=== PATIENT | female | born 1965 | race Caucasian/White ===

== ENCOUNTER 2022-01-11 10:35 | Outpatient (CLI) | payer OTHER, SELFPAY ==
--- NOTE | ~2022-01-11 | MR_ITS ---
EXAMINATION: MR abdomen wo/w con DATE: 01/11/2022 11:56 INDICATION: Gross hematuria TECHNIQUE: Magnetic resonance imaging (MRI) of the abdomen was performed without and with 14 mL Multi ulysses intravenous contrast. Sequences included coronal T2-weighted SS-FSE, coronal and axial FS 2D-F IESTA, axial STIR FSE, axial T2-weighted SS-FSE, axial T2-weighted FS SS-FSE, axial diffusion-weighte d SE, axial dual-echo T1-weighted FSPGR, and axial and coronal T1-weighted LAVA. Postcontrast axial T 1-weighted LAVA images were obtained in a time course. Postcontrast coronal T1-weighted LAVA images w ere obtained. COMPARISON: None. FINDINGS: Heart size is normal. No pericardial or pleural effusion. Cholecystectomy clips with associated magne tic field artifact at the gallbladder fossa. Liver, spleen, pancreas and right kidney are normal. 8 m m T2 hyperintense exophytic cyst at the interpolar region of the left kidney. There are at least 3 ad ditional 5 mm smaller nonenhancing likely cysts, too at the upper pole of the right kidney and one at the lower pole of the left kidney. No hydronephrosis. Postoperative changes of magnetic field artifa ct suggesting aortobiiliac stenting. There is prominent colonic diverticulosis with a sigmoid and latrell cending colon predominance. There is no adjacent inflammatory change to suggest diverticulitis. Gina l appendix. No dilated bowel to suggest obstruction. Bladder, uterus and bilateral adnexa are visuali zed on the coronal images appear unremarkable. No pathologically enlarged abdominal or pelvic lymphad enopathy. Bones are unremarkable with normal marrow signal throughout. IMPRESSION: 1. A few small bilateral nonenhancing renal cysts. No etiology identified for reported hematuria. Reviewed, dictated and finalized at location B. IMPRESSION: 1. A few small bilateral nonenhancing renal cysts. No etiology identified for r eported hematuria.
[2022-01-11 11:18] LABS: Estimated Glomerular Filt Rate 57
== END 2022-01-11 10:36 | disposition home or self-care (01) ==
PROVIDERS: PCP Family Medicine; Visit Provider Urology
DX: R31.0 Gross hematuria (principal); N28.1 Cyst of kidney, acquired
CPT/HCPCS: 74183; A9577

== ENCOUNTER 2024-03-11 08:00 | Outpatient (CLI) | payer OTHER, SELFPAY ==
--- NOTE | ~2024-03-11 | XR_ITS ---
EXAMINATION: XR abdomen/kub 1V DATE: 03/11/2024 08:26 INDICATION: Gross hematuria. TECHNIQUE: A supine view of the abdomen on 2 radiographs was obtained. COMPARISON: CT abdomen and pelvis 03/11/2024 FINDINGS: There are no dilated loops of bowel. There is a paucity of stool in the colon. There are casas rgical clips in right abdomen. There are stents in the common iliac arteries and left external iliac artery. There are phleboliths in the pelvis. IMPRESSION: 1. No visible urolithiasis. Reviewed, dictated and finalized at location A. IMPRESSION: 1. No visible urolithiasis.
--- NOTE | ~2024-03-11 | CT_ITS ---
CT of the Abdomen and Pelvis: Indication: Hematuria Technique: 2.5 mm axial scans were obtained through the abdomen and pelvis prior to and following in travenous administration of 130 cc of Omnipaque 350. Dose reduction technique was used on this scan b y utilizing automated exposure control and iterative reconstruction technique. The dose-length produc t (DLP) was 1060.21 mGy-cm. Findings: Scans through the lung bases are unremarkable. The liver, spleen, and pancreas are within normal limits. Cholecystectomy clips are present. Bilatera l adrenal glands are enlarged and low-density, compatible prior bilateral adrenal adenomas or adrenal hyperplasia. 2 mm nonobstructing right renal stone present. There is a 2.7 x 2.0 x 1.5 cm enhancing mass probably involving the left renal collecting system but with suspected focal extension into the left renal parenchyma, suspicious for neoplasm (coronal postcontrast images 55-60). There is atherosc lerotic calcification of aorta with bilateral iliac artery stents present.. No lymphadenopathy. No bowel obstruction or bowel wall thickening. There is no evidence to suggest acute appendicitis. Images through the pelvis were performed. Urinary bladder unremarkable. No pelvic mass seen. No ascit es. Impression: Findings suspicious for urothelial carcinoma versus renal cell carcinoma involving the left renal col lecting system and probably focally invading into left renal parenchyma, as detailed above. 2 mm nonobstructing right renal stone. Adrenal hyperplasia bilaterally versus adrenal adenomas. Reviewed, dictated and finalized at [facility]. Impression: Findings suspicious for urothelial carcinoma versus renal cell carcinoma involv ing the left renal collecting system and probably focally invading into left re nal parenchyma, as detailed above. 2 mm nonobstructing right renal stone. Adrenal hyperplasia bilaterally versus adrenal adenomas.
== END 2024-03-11 08:01 | disposition home or self-care (01) ==
LOC: ANHIMG 08:10
PROVIDERS: PCP Hospitalist; Visit Provider Urology
DX: N20.0 Calculus of kidney (principal); E27.8 Other specified disorders of adrenal gland; R93.89 Abnormal findings on diagnostic imaging of other specified body structures
CPT/HCPCS: 74018; 74178; Q9967

== ENCOUNTER 2024-04-18 02:05 | Day surgery (SDC) | payer OTHER, SELFPAY ==
--- NOTE | 2024-04-10 07:05 | PM.HPGS ---
History of Present Illness History of Present Illness Consent: Risks, benefits, and alternatives have been discussed and questions answered. Patient agrees to proceed with procedure. Chief complaint: gross hematuria Narrative: Mirtha Cherry is a 58 year old female who recently underwent evaluation by 1 of our nurse practitioners for hematuria. CT urogram showed a possible filling defect in her left renal collecting system. After discussion options she is agreeable to cystoscopy with left ureteroscopy, possible ureteral / renal pelvic biopsy, left retrograde. She is aware that this be a diagnostic maneuver. The risk ureteral injury, ureteral stricture, hematuria, need to place a stent and procedures. Review of Systems Review of Systems: All systems reviewed & are unremarkable except as noted in HPI and below COUNT INCLUDES THE [facility] Family History Family History (Updated 05/06/16 @ 23:19 by DOCTOR UNKNOWN) Grandparent Family history of thyroid disease Family history of obesity Cerebrovascular accident Family history of Alzheimer's disease Diabetes mellitus Mother Family history of obesity Family history of cataracts Family history of diabetes mellitus in first degree relative Father Hypertension Family history of alcoholism Family history of atrial fibrillation Social History Social History Second hand tobacco smoke exposure: Yes Smoking end date: 10/09/07 Alcohol intake: never Exam Const: General: no acute distress Resp: Effort & Inspection: normal respiratory effort GI: Inspection: non-distended GI Palp: No abdominal tenderness and No Guarding due to palpation present (GI) Auscultation: normal bowel sounds Assessment and Plan Assessment and plan (1) Gross hematuria: Code(s): R31.0 - Gross hematuria Status: Acute Assessment and Plan: Cystoscopy, left ureteroscopy with possible renal pelvic biopsy, left retrograde pyelography
[2024-04-10 13:20] VITALS: BMI 24.5
--- NOTE | 2024-04-10 13:34 | PC.NURSE ---
Report to the Outpatient Waiting Room, entrance under the green pavilion located off [facility], at time _0600_ on date _[id number]_. Planned Procedure Time: _0730_. Time changes happen often and if your time is changed the preop area will call you the afternoon before. - You and your visitor will be asked to self-screen and do not enter if you have any COVID symptoms. - A mask is optional within the hospital at this time. Patients may have clear liquids (water, carbonated beverages, clear teas, apple juice) until 3 hours prior to surgery with a maximum of 20 ounces. - No food from midnight until time of surgery Take the following medications with a SIP of water the morning of surgery: ___Metoprolol DO NOT STOP ANY OF YOUR OTHER PRESCRIPTION MEDICATIONS PRIOR TO SURGERY ?EXCEPT THE FOLLOWING Medications to discontinue per physician Patient says Danae told her to stop plavix and aspirin 7 days before surgery. __Please stop all vitamins and supplements 04-15-2024_ Date to take last dose Please no make-up, nail burkinan, hairspray, perfume, deodorant, or body powder the day of surgery. No jewelry (including any body piercings) or valuables the day of surgery, leave them at home. Please take a shower or bath the night before, or the morning of, surgery with an antibacterial soap. Wear comfortable, loose fitting clothing. - Jewelry must be removed prior to entering the operating room. Rings and piercings that are not removed may be cut off. - The hospital will not accept responsibility for valuables. - Please leave all valuables, including medications, at home the day of surgery. If you are going home after surgery, a licensed [employer] truck driver must drive you home. - NO public transportation without another adult if you receive anesthesia. - We recommend that an adult stay with you for 24 hours following discharge. - We also recommend that you do not drive, make important decision, drink alcoholic beverages, or take any drugs that were not prescribed by your health care provider for at least 24 hours after your discharge time. Follow any additional instructions given to you from your surgeon. If you or anyone in your household have experienced Covid symptoms in the past week, please notify your surgeon or the nurse liaison at the phone number below for possible testing. Telephone instructions given to __Dee___and asked if any additional questions and then verbalized understanding. Patient advised to call surgeon office or pre surgery nurse liaison [phone] if any additional questions.
--- NOTE | 2024-04-17 15:22 | WPDANESEPPF ---
Anes - Initial Pre Proc Eval Procedure: Operation Date: 04/18/24 07:30 Proposed Procedures p Cystoscopy, Left Ureteroscopy, Left Retrograde Pyelography, Possible Ureteral Biopsy - Rudy Houston MD Date/Time: 04/17/24 15:22 Surgeon: Rudy Houston MD Pre Op Diagnosis: gross hematuria Patient Data Age: 59 Gender: F Height: 1.55 m Weight: 59 kg Allergies Allergy/AdvReac Type Severity Reaction Status Date / Time adhesive tape Allergy Intermediate Blister Verified 04/10/24 13:15 Home Medications Medication Instructions Recorded Confirmed Type aspirin 81 mg tablet,delayed 81 mg PO DAILY 04/10/24 04/10/24 History release (Ecotrin Low Strength) atorvastatin 40 mg tablet 40 mg PO DAILY 04/10/24 04/10/24 History cholecalciferol (vitamin D3) 125 125 mcg PO DAILY 04/10/24 04/10/24 History mcg (5,000 unit) tablet (Vitamin D3) clopidogrel 75 mg tablet 75 mg PO DAILY 04/10/24 04/10/24 History coenzyme Q10 100 mg capsule 400 mg PO DAILY 04/10/24 04/10/24 History (CoQ-10) metoprolol succinate 50 mg 50 mg PO DAILY 04/10/24 04/10/24 History tablet,extended release 24 hr kyjubdzo-lsd-vldyx acid 0.4 1 tablet PO DAILY 04/10/24 04/10/24 History mg-lycopene 300 mcg-lutein 250 mcg tablet (Centrum Silver) Patient hx anesthesia problems: post op nausea/vomiting Family hx anesthesia problems: none Results Review: All pre-operative results and documents have been reviewed as part of the pre-operative evaluation. [facility] Past Medical History Medical History (Updated 04/17/24 @ 15:23 by Loyd Ferrell DO) History of breast cancer PVD (peripheral vascular disease) Tachy-chris syndrome Surgical History Surgical History (Updated 04/17/24 @ 15:23 by Loyd Ferrell DO) History of bilateral mastectomy Family History Family History (Updated 05/06/16 @ 23:19 by DOCTOR UNKNOWN) Grandparent Family history of thyroid disease Family history of obesity Cerebrovascular accident Family history of Alzheimer's disease Diabetes mellitus Mother Family history of obesity Family history of cataracts Family history of diabetes mellitus in first degree relative Father Hypertension Family history of alcoholism Family history of atrial fibrillation Social History Social History Smoking packs per day: 1 Smoking cigarettes per day: 20.0 Years smoked: 40 Smoking pack-years: 40.00 Smoking status: Current every day smoker Tobacco type: cigarettes Second hand tobacco smoke exposure: Yes Smoking end date: 10/09/07 Alcohol intake: never Living arrangements: with family Spiritual care concerns: No Anes - Eval Final PreProcedure Day of Procedure 04/17/24 15:22 Patient weight: normal Heart: regular rate and rhythm Lungs: clear to auscultation Airway: Mallampati scale class III Neurological: alert and oriented Last oral intake: >/= 8 hours ASA classification: III Emergent: no Anesthetic plan: proceed Anesthesia type and monitoring: general and standard monitoring Results Review: All pre-operative results and documents have been reviewed as part of the pre-operative evaluation. Informed Consent: The patient's anesthetic plan and its attendant risks and benefits were discussed with the patient/family/POA. Questions were solicited and answers provided to the satisfaction of the patient/family/POA.
[2024-04-18] VITALS (9 sets, daily range): BP systolic 120–154; BP diastolic 63–72; PULSE 53–63; RESP 14–18; TEMP 36.1–36.4; O2SAT 95–100
--- NOTE | ~2024-04-18 | XR_ITS ---
EXAMINATION: XR retrograde pyelo w/stent LT DATE: 04/18/2024 08:04 INDICATION: Left internal ureteral stent placement TECHNIQUE: Fluoroscopic images from a left internal ureteral stent placement are submitted for review . 55 seconds of fluoroscopy time. FINDINGS: There is a left double-J internal ureteral stent projecting in expected position, with proximal [place] loop at the level of the renal pelvis. The distal loop is not visualized.. IMPRESSION: 1. Left internal ureteral stent placement. Please refer to real-time procedural findings for detail s. Reviewed, dictated and finalized at location B. IMPRESSION: 1. Left internal ureteral stent placement. Please refer to real-time procedur al findings for details.
--- NOTE | 2024-04-18 06:30 | WPDHPUPDATE1 ---
History and Physical Update Update Date/Time: 04/18/24 06:30 History and Physical has been reviewed, including an updated exam of the patient. There are NO changes in the patient's condition. Risks, benefits, and alternatives have been discussed and questions answered. Patient agrees to proceed with procedure.
[2024-04-18] MEDS: LACTATED RINGERS 1,000 ML 30 ML IV CONT (07:00)
[2024-04-18] MEDS: SCOPOLAMINE 1 MG PATCH 1 PATCH TRANSDERM (07:00)
[2024-04-18] MEDS: ceFAZolin 2 GM/D5W 50 ML 2 GM/50 ML BAG IVPB (07:22)
--- NOTE | 2024-04-18 08:09 | W.PM.PROC2 ---
Procedure Note - Detailed Date of Procedure 04/18/24 Pre-op Diagnosis Gross hematuria Post-op Diagnosis Same (Probable urothelial ca. left renal collecting system) Procedure Performed Cystoscopy, left renal pelvic wash, left ureteroscopy with biopsy, left retrograde pyelogram Surgeon Rudy Houston MD Anesthesia General Description of Procedure patient is brought to the operative suite where she is prepped draped in routine sterile fashion while in dorsal lithotomy position after the uneventful induction of a general anesthetic. Cystoscopy was undertaken with a 21 F rigid cystoscope. With placement the cystoscope urine from the bladder was collected for cytology. Bladder neck and urethra endoscopically normal. Bladder was circumferentially inspected and found to be without mucosal hyperemia or neoplastic changes. There was no intravesical foreign body. She has a single orthotopic ureteral orifice bilaterally. A 0.035 in glidewire was advanced in left renal pelvis. The distal ureter was dilated with an 8 F 10 F dilator. Using a ureteral catheter I obtained washings from the left renal pelvis. Ureteroscopy was undertaken with a 7.5 F digital ureteral scope with the following findings: a. 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 Left ureter: No apparent neoplasm c. Bladder: normal Above biopsies were obtained with a Piranha biopsy forceps. I opted not to place ureteral stent. Scopes and wires removed she was taken recovery room good condition Drains No Packing No Pathology None sent
[2024-04-18] MEDS: fentaNYL CITRATE INJ (*CRX) 100 MCG/2 ML VIAL 25 MCG IV PUSH ×4 (09:02→09:13)
[2024-04-18] MEDS: KETOROLAC 30 MG/ML VIAL (*BKC) IV PUSH (09:25)
[2024-04-18] MEDS: HYOSCYAMINE SULFATE 0.125 MG TABLET PO (09:37)
[2024-04-18] MEDS: oxyCODONE HCL (*CRX) 5 MG TAB IR PO (09:54)
[2024-04-18] MEDS: ONDANSETRON INJ 4 MG/2 ML VIAL IV PUSH (10:26)
== END 2024-04-18 10:34 | disposition home or self-care (01) ==
PROVIDERS: PCP Hospitalist; Visit Provider Urology
PROC: (CPT 52352; principal; 2024-04-18 07:30)
DX: C65.2 Malignant neoplasm of left renal pelvis (principal); I73.9 Peripheral vascular disease, unspecified; I49.5 Sick sinus syndrome; Z85.3 Personal history of malignant neoplasm of breast; Z79.02 Long term (current) use of antithrombotics/antiplatelets; Z79.82 Long term (current) use of aspirin; F17.210 Nicotine dependence, cigarettes, uncomplicated
CPT/HCPCS: 52354; 74420; 88108; 88305; A9270; C1758; C1769; J0690; J1100; J1885; J2250; J2405; J3010; J7120; Q9966

== ENCOUNTER 2024-10-06 08:17 | Emergency (ER) | payer OTHER, SELFPAY ==
--- NOTE | ~2024-10-06 | US_ITS ---
EXAMINATION: US venous doppler [facility] DATE: 10/06/2024 08:51 INDICATION: Left lower limb pain and swelling TECHNIQUE: Grayscale ultrasound images without and with compression and Doppler ultrasound images of the left lower extremity veins were obtained. COMPARISON: None. FINDINGS: The visualized portions of left common femoral vein, profunda (deep) femoral vein, femoral vein, popl iteal vein, peroneal veins, posterior tibial veins, gastrocnemius vein and greater saphenous vein out flow are patent. IMPRESSION: 1. No deep venous thrombosis in the left lower limb. Reviewed, dictated and finalized at location A. 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
[2024-10-06 08:26] VITALS: BP 108/64; PULSE 84; RESP 16; TEMP 36.4; O2SAT 99
--- NOTE | 2024-10-06 09:16 | ED.GENADULT ---
HPI - General Adult General Chief complaint: Recheck/Abnormal Lab/Rx Stated complaint: elevated d-dimer at [facility], sent here for ultrasound Time Seen by Provider: 10/06/24 08:39 History of Present Illness HPI narrative: this is a 5-year-old female sent to the ED to get a ultrasound. She had a positive D-dimer at an outside facility. Patient received a D-dimer because she had been having tingling sensations in her left leg. She is currently undergoing chemotherapy. She has no history of DVT or blood clots. She has no swelling no chest pain difficulty breathing. Related Data Home Medications ?Medication ?Instructions ?Recorded ?Confirmed ?Last Taken ?Type aspirin 81 mg tablet,delayed 81 mg PO DAILY 04/10/24 04/18/24 04/11/24 History release (Ecotrin Low Strength) atorvastatin 40 mg tablet 40 mg PO DAILY 04/10/24 04/10/24 Unknown History cholecalciferol (vitamin D3) 125 125 mcg PO DAILY 04/10/24 04/10/24 Unknown History mcg (5,000 unit) tablet (Vitamin D3) clopidogrel 75 mg tablet 75 mg PO DAILY 04/10/24 04/18/24 04/11/24 History coenzyme Q10 100 mg capsule 400 mg PO DAILY 04/10/24 04/10/24 Unknown History (CoQ-10) metoprolol succinate 50 mg 50 mg PO DAILY 04/10/24 04/10/24 Unknown History tablet,extended release 24 hr ecovrznq-hqy-ggcny acid 0.4 1 tablet PO DAILY 04/10/24 04/18/24 04/14/24 History mg-lycopene 300 mcg-lutein 250 mcg tablet (Centrum Silver) Allergies Allergy/AdvReac Type Severity Reaction Status Date / Time adhesive tape Allergy Intermediate Blister Verified 04/18/24 07:05 [facility] Past Medical History Medical History History of breast cancer PVD (peripheral vascular disease) Tachy-chris syndrome Surgical History Surgical History History of bilateral mastectomy Family History Family History Grandparent Family history of thyroid disease Family history of obesity Cerebrovascular accident Family history of Alzheimer's disease Diabetes mellitus Mother Family history of obesity Family history of cataracts Family history of diabetes mellitus in first degree relative Father Hypertension Family history of alcoholism Family history of atrial fibrillation Social History Social History Smoking packs per day: 1 Smoking cigarettes per day: 20.0 Years smoked: 40 Smoking pack-years: 40.00 Smoking status: Current every day smoker Tobacco type: cigarettes Second hand tobacco smoke exposure: Yes Smoking end date: 10/09/07 Alcohol intake: never Living arrangements: with family Spiritual care concerns: No Exam Narrative: APPEARANCE: No apparent distress. Head: atraumatic. EYES: EOMI, NOSE: Atraumatic NECK: Trachea midline RESPIRATORY: No increased rate of breathing CARDIOVASCULAR: RRR, ABDOMINAL: Non-distended MUSCULOSKELETAl: Focal exam of the left lower extremity revealed no swelling, compartments are soft, no overlying skin changes. Pulses intact, sensation intact NEURO: Alert. Moving 4/4 extremities SKIN:: Warm, dry. Normal color PSYCHIATRIC: Normal affect Course Vital Signs Vital signs: Vital Signs Temperature 97.6 F 10/06/24 08:26 Pulse Rate 84 10/06/24 08:26 Respiratory Rate 16 10/06/24 08:26 Blood Pressure 108/64 10/06/24 08:26 Pulse Oximetry 99 10/06/24 08:26 Temperature 97.6 F 10/06/24 08:26 Pulse Rate 84 10/06/24 08:26 Respiratory Rate 16 10/06/24 08:26 Blood Pressure 108/64 10/06/24 08:26 Pulse Oximetry 99 10/06/24 08:26 Medical Decision Making MDM Narrative Medical decision making narrative: -Course: 59-year-old female presenting ED for a rule out DVT. DVT scan is negative. Her physical exam is unremarkable. She is on chemotherapy which frequently causes peripheral neuropathy which may be the cause of her symptoms. Patient be discharged follow-up with Oncology. Given return precautions. Vital Signs Vital Signs: Vital Signs Temperature 97.6 F 10/06/24 08:26 Pulse Rate 84 10/06/24 08:26 Respiratory Rate 16 10/06/24 08:26 Blood Pressure 108/64 10/06/24 08:26 Pulse Oximetry 99 10/06/24 08:26 Temperature 97.6 F 10/06/24 08:26 Pulse Rate 84 10/06/24 08:26 Respiratory Rate 16 10/06/24 08:26 Blood Pressure 108/64 10/06/24 08:26 Pulse Oximetry 99 10/06/24 08:26 Discharge Plan Discharge Clinical Impression: Leg pain Patient Disposition: Still a Patient Condition: Stable Additional Instructions: your ultrasound was negative for DVT. Please follow-up with your oncologist for further management. Patient Language: Faroese Prescriptions: No Action atorvastatin 40 mg tablet 40 mg PO DAILY metoprolol succinate 50 mg tablet extended release 24 hr 50 mg PO DAILY clopidogrel 75 mg tablet 75 mg PO DAILY aspirin [Ecotrin Low Strength] 81 mg Tablet,Delayed Release (Dr/Ec) 81 mg PO DAILY coenzyme Q10 [CoQ-10] 100 mg Capsule 400 mg PO DAILY Centrum Silver 0.4 mg-300 mcg- 250 mcg Tablet 1 tablet PO DAILY cholecalciferol (vitamin D3) [Vitamin D3] 125 mcg (5,000 unit) Tablet 125 mcg PO DAILY hydrocodone-acetaminophen 5-325 mg tablet 1 - 2 tablet PO Q6H PRN (Reason: pain) Qty: 20 0RF Follow-up/Referrals: Leidy,MD Karson [Primary Care Provider] -
[2024-10-06 10:05] VITALS: BP 126/88; PULSE 74; RESP 16; O2SAT 99
--- OUTSIDE RECORDS SUMMARY | 2024-10-13 03:57 | XMS_ITS | Clinical Summary ---
Author Organization [facility] Address [address] [facility], [place] [address] Phone Care Team Providers Care Carriage Setter Name Role Phone Levi Carpenter Mirlande DPM Unavailable [phone] Karson Forbes MD Primary Care Provider [phone] Los Perry MD Unavailable Allergies Active Allergy Reactions Criticality Noted Date Comments Adhesive Tape Itching,Unknown,Othe r (see Comments) 06/07/2016 blisters Povidone Iodine Itching 02/17/2017 Codeine Nausea,Unknown 06/07/2016 Fosaprepitant Dimeglumine Anaphylaxis 4 Iodine Itching High 05/10/2018 Nitrofurantoin Hives 08/18/2024 Medications SUMAtriptan (IMITREX) 50 MG Tablet Take 1 Tab by mouth as needed. 11 6 Active clopidogrel (PLAVIX) 75 MG Tablet Take 75 mg by mouth daily. Instructed to hold for 5 days prior to surgery on 07/02/2024 Active atorvastatin (LIPITOR) 80 MG Tablet Take 40 mg by mouth daily. Active Multiple Vitamin (MULTIVITAMIN PO) Take by mouth. Instructed to hold for 3 days prior to surgery on 07/02/2024 Active metoprolol tartrate (LOPRESSOR) 50 MG Tablet Take 50 mg by mouth every morning. Active Coenzyme Q10 400 MG Capsule Take by mouth daily. Active Probiotic Product (PROBIOTIC DAILY PO) Take by mouth. Activ e sulfamethoxazol e-trimethoprim DS (Bactrim DS) 800-160 MG TabletIndicatio ns:Acute Cystitis Take 1 Tablet by mouth 2 times daily. Indications: Acute Cystitis 4 09/24/20 phenazopyridine (PYRIDIUM) 200 MG Tablet Take 1 Tablet by mouth 3 times daily for 3 days. 9 Tablet 4 10/01/20 sulfamethoxazol e-trimethoprim DS (BACTRIM DS, SEPTRA DS) 800-160 MG Tablet Take 1 Tablet by mouth 2 times daily for 7 days. 14 Tablet 4 10/05/20 Active Problems Problem Noted Date Diagnosed Date Chemotherapy-induced thrombocytopenia 09/11/2024 Anemia associated with chemotherapy 08/28/2024 Urinary tract infection without hematuria 2023 Cognitive impairment 07/09/2024 Urothelial cancer 06/18/2024 Stage 3 chronic kidney disease 06/18/2024 Conductive hearing loss, bilateral 06/18/2024 Pain of left foot 07/10/2017 Left leg swelling 06/02/2017 Neuritis of left foot 06/02/2017 Swelling of foot joint, left 06/02/2017 GERD (gastroesophageal reflux disease) 7 Dyslipidemia 11/25/2016 PVD (peripheral vascular disease) 11/25/2016 Closed displaced fracture of proximal phalanx of lesser toe of right foot 06/07/2016 Other specified peripheral vascular diseases Hallux valgus (acquired), right foot 06/07/2016 Hallux valgus (acquired), left foot 06/07/2016 Tailor's bunion of left foot 06/07/2016 Resolved Problems Problem Noted Date Diagnosed Date Resolved Date Tailor's bunion of right foot 06/07/2016 02/17/2017 Encounters Date Type Department Care Team Description 10/08/2024 10:40 AM [employer] Clinical Support [facility] Oncology Services [address] [place] [address] Cruzito Orr MD Urothelial cancer (HCC) (Primary Dx) Discharge Disposition: Discharged to home or Selfcare 10/08/2024 7:41 AM [employer] - 10/08/2024 11:59 PM [employer]AL [facility] [address] [place] [address] Cruzito Orr MD Discharge Disposition: Discharged to home or Selfcare 10/08/2024 Travel 10/03/2024 10:00 AM [employer]ESSIONAL Clinical Support [facility] Oncology Services [address] [place] [phone] Cruzito Orr MD Anemia associated with chemotherapy (Primary Dx) Discharge Disposition: Discharged to home or Selfcare 10/03/2024 Travel 10/01/2024 10:00 AM [employer]AL Clinical Support [facility] Oncology Services [address] [place] [phone] Cruzito Orr MD Urothelial cancer (HCC) Discharge Disposition: Discharged to home or Selfcare 10/01/2024 Telephone [facility] Oncology Services [address] [place] [phone] Cruzito Orr MD 10/01/2024 Travel 10/01/2024 Results Follow-Up [facility] [address] [place] [address] Carloz Gilman PAC 09/28/2024 6:10 PM [employer]ESSIONAL Urgent Care Visit [facility] [address] [place] [phone] Aimee Hand APRN, GLUE MIXER Acute cystitis with hematuria (Primary Dx); Dysuria Discharge Disposition: Discharged to home or Selfcare 09/28/2024 Travel 09/26/2024 1:00 PM [employer] Clinical Support [facility] Oncology Services [address] [place] [phone] Cruzito Orr MD Anemia associated with chemotherapy (Primary Dx) Discharge Disposition: Discharged to home or Selfcare 09/26/2024 Travel 09/25/2024 1:00 PM [employer] Clinical Support [facility] Oncology Services [address] [place] [phone] Cruzito Orr MD Urothelial cancer (HCC) Discharge Disposition: Discharged to home or Selfcare 09/25/2024 Travel 09/23/2024 10:30 AM [employer]ESSIONAL Clinical Support [facility] Oncology Services [address] [place] [phone] Cruzito Orr MD Anemia associated with chemotherapy (Primary Dx); Urothelial cancer (HCC) Discharge Disposition: Discharged to home or Selfcare 09/23/2024 Travel 09/18/2024 1:30 PM [employer] Clinical Support [facility] Oncology Services [address] [place] [phone] Cruzito Orr MD Anemia associated with chemotherapy (Primary Dx); Urothelial cancer (HCC) Discharge Disposition: Discharged to home or Selfcare 09/18/2024 1:30 PM [employer] Clinical Support [facility] Oncology Services [address] [place] [phone] Cruzito Orr MD Anemia associated with chemotherapy (Primary Dx) Discharge Disposition: Discharged to home or Selfcare 09/18/2024 Travel 09/16/2024 1:30 PM [employer] Clinical Support [facility] Oncology Services [address] [place] [phone] Cruzito Orr MD Urothelial cancer (HCC) Discharge Disposition: Discharged to home or Selfcare 09/16/2024 Travel 09/12/2024 8:30 AM [employer]ESSIONAL Clinical Support [facility] Oncology Services [address] [place] [phone] Cruzito Orr MD Anemia associated with chemotherapy (Primary Dx); Urothelial cancer (HCC) Discharge Disposition: Discharged to home or Selfcare 09/12/2024 Travel 09/11/2024 3:00 PM [employer] Clinical Support [facility] Oncology Services [address] [place] [phone] Cruzito Orr MD Anemia associated with chemotherapy (Primary Dx) Discharge Disposition: Discharged to home or Selfcare 09/11/2024 2:20 PM [employer]ESSIONAL Lab [facility] Oncology Services [address] [place] [phone] Cruzito Orr MD Urothelial cancer (HCC) Discharge Disposition: Discharged to home or Selfcare 09/11/2024 2:20 PM [employer] Office Visit [facility] Oncology Services [address] [place] [phone] Cruzito Orr MD Urothelial cancer (HCC) (Primary Dx); Anemia associated with chemotherapy; Stage 3 chronic kidney disease, unspecified whether stage 3a or 3b CKD (HCC); Gastroesophageal reflux disease without esophagitis; Chemotherapy-induced thrombocytopenia Discharge Disposition: Discharged to home or Selfcare 09/11/2024 Travel 09/04/2024 1:00 PM [employer] Clinical Support [facility] Oncology Services [address] [place] [phone] Cruzito Orr MD Urothelial cancer (HCC) (Primary Dx); Anemia associated with chemotherapy Discharge Disposition: Discharged to home or Selfcare 09/04/2024 Travel 09/03/2024 8:30 AM [employer]ESSION[employer] Clinical Support [facility] Oncology Services [address] [place] [phone] Cruzito Orr MD Urothelial cancer (HCC) (Primary Dx) Discharge Disposition: Discharged to home or Selfcare 09/03/2024 Travel 08/30/2024 [facility]phone [facility] [address] [place] [phone] Cruzito Orr MD 08/28/2024 8:30 AM [employer]ESSION[employer] Clinical Support [facility] Oncology Services [address] [place] [phone] Cruzito Orr MD Anemia associated with chemotherapy (Primary Dx); Urothelial cancer (HCC) Discharge Disposition: Discharged to home or Selfcare 08/28/2024 Travel 08/21/2024 2:00 PM [employer] Clinical Support [facility] Oncology Services [address] [place] [phone] Cruzito Orr MD Urothelial cancer (HCC) Discharge Disposition: Discharged to home or Selfcare 08/21/2024 [facility]phone [facility] [address] [place] [phone] Cruzito Orr MD 08/21/2024 Travel 08/18/2024 9:53 PM [employer] - 08/19/2024 2:21 AM [employer]ESSIONAL Emergency [facility] Emergency [address] [place] [phone] Kraig Glass MD Hyperactive airway disease Discharge Disposition: Discharged to home or Selfcare 08/18/2024 Travel 08/17/2024 [facility]phone [facility] [address] [place] [phone] Cruzito Orr MD 08/13/2024 11:20 AM [employer]ESSIONAL [facility] [address] [place] [phone] Cruzito Orr MD Urinary tract infection without hematuria, site unspecified (Primary Dx) Discharge Disposition: Discharged to home or Selfcare 08/13/2024 Travel 08/12/2024 Travel 08/08/2024 9:30 AM CDT Clinical Support [facility] Oncology Services [address] [place] [phone] Cruzito Orr MD Urothelial cancer (HCC) (Primary Dx) Discharge Disposition: Discharged to home or Selfcare 08/08/2024 Travel 08/08/2024 Telephone [facility] Oncology Services [address] [place] [phone] Cruzito Orr MD 08/07/2024 2:40 PM CDT Clinical Support [facility] Oncology Services [address] [place] [phone] Cruzito Orr MD Stage 3 chronic kidney disease, unspecified whether stage 3a or 3b CKD (HCC) (Primary Dx); Urothelial cancer (HCC) Discharge Disposition: Discharged to home or Selfcare 08/07/2024 Travel 08/01/2024 9:00 AM CDT Clinical Support [facility] Oncology Services [address] [place] [phone] Cruzito Orr MD Urothelial cancer (HCC) (Primary Dx) Discharge Disposition: Discharged to home or Selfcare 08/01/2024 Travel 07/31/2024 8:40 AM CDT Clinical Support [facility] On[facility] Services [address] [place] [phone] Cruzito Orr MD Stage 3 chronic kidney disease, unspecified whether stage 3a or 3b CKD (HCC) (Primary Dx); Urothelial cancer (HCC) Discharge Disposition: Discharged to home or Selfcare 07/31/2024 Travel 07/24/2024 8:40 AM CDT Clinical Support [facility] On[facility] Services [address] [place] [phone] Cruzito Orr MD Urothelial cancer (HCC) (Primary Dx) Discharge Disposition: Discharged to home or Selfcare 07/24/2024 [facility]phone [facility] [address] [place] [phone] Cruzito Orr MD 07/24/2024 Travel 07/15/2024 Telephone [facility] [address] [place] [phone] Cruzito Orr MD from Last 3 Months Family History Medical History Relation Name Comments Cancer Father esophageal Hypertension Father Diabetes Mother Relation Name Status Comments Father Mother Alive Social History Tobacco Use Types Packs/Day Years Used Date Smoking Tobacco: Every Day Cigarettes 1 44.3 Started: 06/18/1980 Smokeless Tobacco: Never Tobacco Cessation:Ready to Q uit: Not Asked; Counseling Given: Not Answered Alcohol Use Standard Drinks/Week Comments No 0 (1 standard drink = 0.6 oz pur e alcohol) Sexually Active Control Partners Comments Not Currently Comments No Sex and Gender Information Value Date Recorded Sex Assigned at Not on file Legal Sex Female 10:25 PM CDT Gender Identity Not on file Sexual Orientation Not on file Last Filed Vital Signs Vital Sign Reading Time Taken Comments Blood Pressure 112/71 10/03/2024 10:15 AM [employer] Pulse 63 10/03/2024 10:15 AM [employer] Temperature 36.3 ??C (97.3 ??F) 10/03/2024 10:[address] Respiratory Rate 16 10/03/2024 10:15 AM [employer]AL Oxygen Saturation 96% 10/03/2024 10:15 AM [employer]AL Inhaled Oxygen Concentration - - Weight 64.7 kg (142 lb 9.6 oz) 10/01/2024 9:00 A M [employer] Height 154.9 cm (5' 1 ) 09/11/2024 2:22 PM [employer] Body Mass Index 26.94 09/11/2024 2:22 PM [employer] Plan of Treatment Upcoming Encounters Date Type Department Care Team (Late st Contact Info) Description 10/16/2024 10:40 AM [employer] PROFESSIONAL [facility] [address] [place] [phone] Cruzito Orr MD [address] [place] [address] Discharge Disposition: Discharged to home or Selfcare 10/16/2024 1:20 PM [employer]AL Clinical Support [facility] Oncology Services [address] [place] [phone] Discharge Disposition: Discharged to home or Selfcare 10/17/2024 1:00 PM [employer]ESSIONAL Clinical Support [facility] Oncology Services [address] [place] [phone] Discharge Disposition: Discharged to home or Selfcare 10/23/2024 9:20 AM [employer] PROFESSIONAL Clinical Support [facility] Oncology Services [address] [place] [phone] Discharge Disposition: Discharged to home or Selfcare 10/24/2024 1:00 PM [employer] PROFESSIONAL Clinical Support [facility] Oncology Services [address] [place] [phone] Discharge Disposition: Discharged to home or Selfcare Health Maintenance Due Date Last Done Comments Hepatitis C Virus (HCV) Screening 1964 TdaP Immunization 1964 Zoster Immunization (1 of 2) 1983 Pap Smear 1985 Cervical Cancer Screening (CCS) 1994 HPV/Cotest 1994 Colonoscopy 2009 Colorectal Cancer Screening 2009 Cologuard 2014 Immunochemical Fecal Occult Blood 2014 Respiratory Syncytial Virus (RSV) Immunization (Adult) (1 - Risk 60-74 years 1-dose series) 2024 Influenza Immunization (#1) 06/09/202406/09, 07/20/2021, 07/03/2020, Additional history exists SARS-COV-2 Immunization ( season) 2024 07/09/2022, 10/31/2021, 02/16/2021, Additional history exists Lung Cancer Screening 05/21/2025 05/21/2024 Mammogram Discontinued 12/26/2017 Pneumococcal Immunization (50+ years) Completed 06/20/2022, 12/17/2009 Pneumococcal Immunization Combined Discontinued 06/20/2022, 12/17/2009 Hepatitis B Immunization Aged Out No longer eligible based on patient's age to complete this topic Meningococcal Immunization (ACWY) Aged Out No longer eligible based on patient's age to complete this topic Rotavirus Immunization Aged Out No lo nger eligible based on patient's age to complete this topic Medical Devices Implanted Type Area International Account Manager Device Identifier Shelf Expiration Date Model / Serial / Lot Stent Biliary Transhepatic Self-Expandin - [id number] Implanted:Qty: 1 on 07/15/2016 by Phoenix Loredo MD at [facility] IMPLANT Right: Leg JN / CORD 06/08/2017 [id number] / / [id number] Stent Biliary Transhepatic Self-Expandin - [id number] Implanted:Qty: 1 on 07/15/2016 by Phoenix Loredo MD at [facility] IMPLANT Right: Leg JN / CORD 03/08/2018 [id number] / / [id number] Angioseal Vip 6fr - [id number] Implanted:Qty: 1 on 07/15/2016 by Phoenix Loredo MD at [facility] IMPLANT Left: Groin ST AIDEE / ATRIAL FIB 04/07/2017 [id number] / / [id number] Angioseal Vip 6fr - [id number] Implanted:Qty: 1 on 09/09/2016 by Phoenix Loredo MD at [facility] IMPLANT Right: Groin ST AIDEE / ATRIAL FIB 05/08/2017 [id number] / / [id number] Angioseal Vip 6fr - [id number] Implanted:Qty: 1 on 09/09/2016 by Phoenix Loredo MD at [facility] IMPLANT Left: Groin ST AIDEE / ATRIAL FIB 05/08/2017 [id number] / / [id number] Ez Clip 8 Mm - [id number] Implanted:Qty: 1 on 11/25/2016 [facility] IMPLANT Right: Foot PREMA / ORTHOPAEDICS 08/08/2021 [id number] / / [id number] Easyclip Staple Ktz40-09-33 - [id number] Implanted:Qty: 1 on 02/17/2017 [facility] IMPLANT Left: Foot PREMA / ORTHOPAEDICS 10/08/2021 [id number] 10 / / [id number] Port Infusion 8fr 63cm Pwr Inj Plastic Single Filled Smart Port Detached Poly Cath Valved Mri-3t - [id number] Implanted:Qty: 1 on 07/02/2024 by Los Perry [facility] IMPLANT Right: Chest [employer] 02/05/2027 [id number] I / [id number] / [id number] Cast Covered Stent [id number] Implanted:Qty: 1 on 09/09/2016 by Phoenix [facility] N/A: Iliac PillPack 09/23/2019 / [id number] / NA Cast Covered Stent Implanted:Qty: 1 on 09/09/2016 by Phoenix Loredo MD at [facility] N/A: [employer] 07/14/2018 / / [id number] Explanted Type Area International Account Manager Device Identifier Shelf Expiration Date Model / Serial / Lot [id number] Stapix Implanted:Qty: 1 Explanted:Qty: 1 on 02/17/2017 by Levi Carpenter DPM at [facility] Left: Foot PREMA 07/28/2018 [id number] / / [id number] Procedures Procedure Name Priority Date/Time Associated Diagnosis Comments CBC WITH AUTO DIFFERENTIAL STAT 10/08/2024 8:48 AM [employer]ESSION[employer] Urothelial cancer (HCC) COMPLETE BLOOD COUNT (CBC) WITH DIFF STAT 10/08/2024 8:48 AM [employer] PROFESSIONAL Urothelial cancer (HCC) CMP (COMPREHENSIVE METABOLIC PANEL) STAT 10/08/2024 8:48 AM [employer] PROFESSIONAL Urothelial cancer (HCC) CT CHEST ABDOMEN AND PELVIS W CONTRAST Routine 10/08/2024 8:10 AM [employer] PROFESSIONAL Urothelial cancer (HCC) CBC WITH AUTO DIFFERENTIAL STAT 10/01/2024 10:16 AM [employer] PROFESSIONAL Urothelial cancer (HCC) COMPLETE BLOOD COUNT (CBC) WITH DIFF STAT 10/01/2024 10:16 AM [employer] PROFESSIONAL Urothelial cancer (HCC) CMP (COMPREHENSIVE METABOLIC PANEL) STAT 10/01/2024 10:16 AM [employer] PROFESSIONAL Urothelial cancer (HCC) CULTURE, URINE Routine 09/28/2024 6:19 PM [employer] PROFESSIONAL Dysuria POCT UA AUTOMATED W/O MICRO Routine 09/28/2024 6:18 PM [employer] PROFESSIONAL Dysuria CBC WITH AUTO DIFFERENTIAL STAT 09/25/2024 1:01 PM [employer] PROFESSIONAL Urothelial cancer (HCC) COMPLETE BLOOD COUNT (CBC) WITH DIFF STAT 09/25/2024 1:01 PM [employer] PROFESSIONAL Urothelial cancer (HCC) CMP (COMPREHENSIVE METABOLIC PANEL) STAT 09/25/2024 1:01 PM [employer] PROFESSIONAL Urothelial cancer (HCC) CBC WITH AUTO DIFFERENTIAL STAT 09/23/2024 10:25 AM [employer] PROFESSIONAL Urothelial cancer (HCC) COMPLETE BLOOD COUNT (CBC) WITH DIFF STAT 09/23/2024 10:25 AM [employer] PROFESSIONAL Urothelial cancer (HCC) MANUAL DIFFERENTIAL STAT 09/18/2024 1 :54 PM [employer] PROFESSIONAL Urothelial cancer (HCC) CBC WITH AUTO DIFFERENTIAL STAT 09/18/2024 1:54 PM [employer] PROFESSIONAL Urothelial cancer (HCC) COMPLETE BLOOD COUNT (CBC) WITH DIFF STAT 09/18/2024 1:54 PM [employer] PROFESSIONAL Urothelial cancer (HCC) MANUAL DIFFERENTIAL STAT 09/16/2024 1 :32 PM [employer] PROFESSIONAL Urothelial cancer (HCC) CBC WITH AUTO DIFFERENTIAL STAT 09/16/2024 1:32 PM [employer] PROFESSIONAL Urothelial cancer (HCC) COMPLETE BLOOD COUNT (CBC) WITH DIFF STAT 09/16/2024 1:32 PM [employer] PROFESSIONAL Urothelial cancer (HCC) UROLOGY CONSULT 09/16/2024 12:00 AM [employer] PROFESSIONAL PREPARE PLATELETS Routine 09/13/2024 6:1 4 AM [employer] PROFESSIONAL Anemia associated with chemotherapy TRANSFUSE PLATELETS Routine 09/12/2024 1 1:05 AM [employer] PROFESSIONAL Anemia associated with chemotherapy CBC WITH AUTO DIFFERENTIAL STAT 09/12/2024 9:16 AM [employer] PROFESSIONAL Urothelial cancer (HCC) COMPLETE BLOOD COUNT (CBC) WITH DIFF STAT 09/12/2024 9:16 AM [employer] PROFESSIONAL Urothelial cancer (HCC) TYPE & SCREEN (CROSSMATCH CONVERTIBLE) Routine 09/11/2024 3:25 PM [employer] PROFESSIONAL MANUAL DIFFERENTIAL STAT 09/11/2024 2 :10 PM [employer] PROFESSIONAL Urothelial cancer (HCC) CBC WITH AUTO DIFFERENTIAL STAT 09/11/2024 2:10 PM [employer] PROFESSIONAL Urothelial cancer (HCC) ABO/RH (D) RECHECK Routine 09/11/2024 2: 10 PM [employer] PROFESSIONAL COMPLETE BLOOD COUNT (CBC) WITH DIFF STAT 09/11/2024 2:10 PM [employer] PROFESSIONAL Urothelial cancer (HCC) CMP (COMPREHENSIVE METABOLIC PANEL) STAT 09/11/2024 2:10 PM [employer] PROFESSIONAL Urothelial cancer (HCC) CBC WITH AUTO DIFFERENTIAL STAT 09/03/2024 8:53 AM [employer] PROFESSIONAL Urothelial cancer (HCC) COMPLETE BLOOD COUNT (CBC) WITH DIFF STAT 09/03/2024 8:53 AM [employer] PROFESSIONAL Urothelial cancer (HCC) CMP (COMPREHENSIVE METABOLIC PANEL) STAT 09/03/2024 8:53 AM [employer] PROFESSIONAL Urothelial cancer (HCC) VITAMIN B12 Routine 08/28/2024 10:13 AM [employer] PROFESSIONAL Urothelial cancer (HCC) Anemia associated with chemotherapy FERRITIN Routine 08/28/2024 8:51 AM [employer] PROFESSIONAL Urothelial cancer (HCC) Anemia associated with chemotherapy IRON,TRANSFERN,CALC.T IBC,%SAT Routine 08/28/2024 8:51 AM [employer] PROFESSIONAL Urothelial cancer (HCC) Anemia associated with chemotherapy CBC WITH AUTO DIFFERENTIAL STAT 08/28/2024 8:41 AM [employer] PROFESSIONAL Urothelial cancer (HCC) COMPLETE BLOOD COUNT (CBC) WITH DIFF STAT 08/28/2024 8:41 AM [employer] PROFESSIONAL Urothelial cancer (HCC) CMP (COMPREHENSIVE METABOLIC PANEL) STAT 08/28/2024 8:41 AM [employer] PROFESSIONAL Urothelial cancer (HCC) MANUAL DIFFERENTIAL STAT 08/21/2024 2 :20 PM [employer] PROFESSIONAL Urothelial cancer (HCC) CBC WITH AUTO DIFFERENTIAL STAT 08/21/2024 2:20 PM [employer] PROFESSIONAL Urothelial cancer (HCC) COMPLETE BLOOD COUNT (CBC) WITH DIFF STAT 08/21/2024 2:20 PM [employer] PROFESSIONAL Urothelial cancer (HCC) CMP (COMPREHENSIVE METABOLIC PANEL) STAT 08/21/2024 2:20 PM [employer] PROFESSIONAL Urothelial cancer (HCC) TROPONIN I, HIGH SENSITIVITY (HSTRP) STAT 08/19/2024 12:03 AM [employer]OL PROFESSIONAL XR CHEST SINGLE VIEW PORTABLE STAT 08/18/2024 10:58 PM [employer] PROFESSIONAL MANUAL DIFFERENTIAL STAT 08/18/2024 1 0:35 PM [employer] PROFESSIONAL CBC WITH AUTO DIFFERENTIAL STAT 08/18/2024 10:35 PM [employer] PROFESSIONAL TROPONIN I, HIGH SENSITIVITY (HSTRP) STAT 08/18/2024 10:35 PM [employer] PROFESSIONAL CMP (COMPREHENSIVE METABOLIC PANEL) STAT 08/18/2024 10:35 PM [employer] PROFESSIONAL COMPLETE BLOOD COUNT (CBC) WITH DIFF STAT 08/18/2024 10:35 PM [employer] PROFESSIONAL EKG 12 LEAD STAT 08/18/2024 9:57 PM [employer] PROFESSIONAL EKG SCAN 08/18/2024 12:00 AM [employer] PROFESSIONAL URINALYSIS REFLEX IF INDICATED BY ABNORMAL RESULTS Routine 08/12/2024 10:35 AM [employer] PROFESSIONAL Urothelial cancer (HCC) Frequency of urination Urgency of urination CULTURE, URINE Routine 08/12/2024 10:35 AM [employer] PROFESSIONAL Urothelial cancer (HCC) Frequency of urination Urgency of urination CBC WITH AUTO DIFFERENTIAL STAT 08/07/2024 3:01 PM CDT Urothelial cancer (HCC) COMPLETE BLOOD COUNT (CBC) WITH DIFF STAT 08/07/2024 3:01 PM CDT Urothelial cancer (HCC) CMP (COMPREHENSIVE METABOLIC PANEL) STAT 08/07/2024 3:01 PM CDT Urothelial cancer (HCC) CBC WITH AUTO DIFFERENTIAL STAT 07/31/2024 8:55 AM CDT Urothelial cancer (HCC) COMPLETE BLOOD COUNT (CBC) WITH DIFF STAT 07/31/2024 8:55 AM CDT Urothelial cancer (HCC) CMP (COMPREHENSIVE METABOLIC PANEL) STAT 07/31/2024 8:55 AM CDT Urothelial cancer (HCC) CBC WITH AUTO DIFFERENTIAL STAT 07/24/2024 9:24 AM CDT Urothelial cancer (HCC) CMP (COMPREHENSIVE METABOLIC PANEL) STAT 07/24/2024 9:24 AM CDT Urothelial cancer (HCC) COMPLETE BLOOD COUNT (CBC) WITH DIFF STAT 07/24/2024 9:24 AM CDT Urothelial cancer (HCC) from Last 3 Months Results * (ABNORMAL) CBC WITH AUTO DIFFERENTIAL (10/08/2024 8:48 AM [employer]) Only the most recent of15 resultswithin the time period is included. WBC 3.18(L) 4.00 - 12.00 10(3)/mcL 10/08/2024 9:44 AM [facility] RBC 3.23(L) 3.80 - 5.30 10(6)/mcL 10/08/2024 9:44 AM [facility] HEMOGLOBIN (HGB) 11.9(L) 12.0 - 15.8 g/dL 10/08/2024 9:44 AM [facility] HEMATOCRIT (HCT) 35.5(L) 36.0 - 47.0 % 10/08/2024 9:44 AM [facility] MCV 109.9(H) 82.0 - 96.0 fL 10/08/2024 9:44 AM [facility] MCH 36.8(H) 26.0 - 34.0 pg 10/08/2024 9:44 AM [facility] MCHC 33.5 31.0 - 36.0 g/dL 10/08/2024 9:44 AM [facility] PLATELET COUNT 117(L) 140 - 440 10(3)/mcL 10/08/2024 9:44 AM [facility] RDW 20.3(H) 11.8 - 15.5 % 10/08/2024 9:44 AM [facility] MPV 10.6 9.7 - 12.4 fL 10/08/2024 9:44 AM [facility] NEUTROPHILS 83.6(H) 47.0 - 73.0 % 10/08/2024 9:44 AM [employer] [facility] LYMPHOCYTES 14.2(L) 18.0 - 42.0 % 10/08/2024 9:44 AM [employer] [facility] MONOCYTES 1.9(L) 4.0 - 12.0 % 10/08/2024 9:44 AM [facility] EOSINOPHILS 0.0 0.0 - 5.0 % 10/08/2024 9:44 AM [employer] [facility] BASOPHILS 0.3 0.0 - 1.0 % 10/08/2024 9:44 AM [employer] [facility] ABSOLUTE NEUTROPHILS 2.66 1.60 - 7.70 10(3)/[facility] 10/08/2024 9:44 AM [facility] ABSOLUTE LYMPHOCYTES 0.45(L) 1.30 - 3.20 10(3)/[facility] 10/08/2024 9:44 AM [facility] ABSOLUTE MONOCYTES 0.06(L) 0.20 - 1.00 10(3)/[facility] 10/08/2024 9:44 AM [facility] ABSOLUTE EOSINOPHIL 0.00 0.00 - 0.40 10(3)/[facility] 10/08/2024 9:44 AM [facility] ABSOLUTE BASOPHILS 0.01 0.00 - 0.10 10(3)/[facility] 10/08/2024 9:44 AM [facility] NRBC PER 100 WBC 0 10/08/20 9:44 AM [facility] RESULTS ARE CONSISTENT WITH PERIPHERAL SMEAR REVIEW Yes 10/08/2024 9:44 AM [facility] RBC MORPHOLOGY CONSISTENT WITH INDICES Yes 10/08/2024 9:44 AM [facility] Blood Sub-Q Port Venou s Access Device (Medi-Port, Implanted Port) / Unknown 10/08/2024 8:48 AM [employer] 10/08/2024 8:48 AM [employer] us Cruzito Orr MD HEMATOLOGY ORDERABLES Fi nal Result [facility] [place] [address] * (ABNORMAL) CMP (COMPREHENSIVE METABOLIC PANEL) (10/08/2024 8:48 AM [employer]) Only the most recent of11 resultswithin the time period is included. SODIUM 133(L) 136 - 145 mmol/L 10/08/2024 9:30 AM [facility] POTASSIUM 5.0 3.5 - 5.1 mmol/L 10/08/2024 9:30 AM [facility] CHLORIDE 106 98 - 107 mmol/L 10/08/2024 9:30 AM [facility] CO2, VENOUS 19(L) 22 - 30 mmol/L 10/08/2024 9:30 AM [facility] ANION GAP 13.0 <18.0 mmol/L 10/08/2024 9:30 AM [facility] GLUCOSE 139(H) 70 - 99 mg/dL 10/08/2024 9:30 AM [facility] BUN 9(L) 10 - 20 mg/dL 10/08/2024 9:30 AM [facility] CREATININE, BLOOD 1.26(H) 0.60 - 1.00 mg/dL 10/08/2024 9:30 AM [facility] BUN/CREATININE RATIO 7(L) 12 - 20 ratio 10/08/2024 9:30 AM [facility] TOTAL PROTEIN 6.7 6.3 - 8.2 g/dL 10/08/2024 9:30 AM [facility] ALBUMIN 4.3 3.5 - 5.0 g/dL 10/08/2024 9:30 AM [facility] A/G RATIO 1.8 1.0 - 2.2 10/08/2024 9:30 AM [facility] CALCIUM 9.3 8.7 - 10.5 mg/dL 10/08/2024 9:30 AM [facility] T BILI 0.3 0.2 - 1.2 mg/dL 10/08/2024 9:30 AM [employer] [facility] SGOT (AST) 18 5 - 34 U/L 10/08/2024 9:30 AM [employer] [facility] SGPT (ALT) 18 0 - 55 U/L 10/08/2024 9:30 AM [employer] [facility] ALKALINE PHOSPHATASE 81 40 - 150 U/L 10/08/2024 9:30 AM [employer] [facility] IS THE PATIENT REQUIRED TO BE FASTING? No 10/08/2024 9:30 AM [employer] [facility] GFR, ESTIMATED 49(L) >=60 10/08/2024 9:30 AM [employer] [facility] Comment: Creatinine Clearance is the preferred criteria for selecting drug dose adjustments in renally impaired patients. ??The GFR is provided as additional pertinent clinical information. GFR is reported in mL/min/1.73 sq m. Calculation based on the Chronic Kidney Disease Epidemiology Collaboration (CKD- EPI) equation refit without adjustment for race. GFR, EST. 52(L) >=60 024 9:30 AM [employer] [facility] GFR, EST. NONAFRICAN 43(L) >=60 10/08/2024 9:30 AM [employer] [facility] Blood Sub-Q Port Venou s Access Device (Medi-Port, Implanted Port) / Unknown 10/08/2024 8:48 AM [employer] 10/08/2024 8:48 AM [employer] us Cruzito Orr MD CHEMISTRY ORDERABLES Fin al Result [facility] [place] [address] * CT CHEST ABDOMEN AND PELVIS W CONTRAST (10/08/2024 8:10 AM [employer]) Anatomical Region Laterality Modality Chest, Abdomen, Pelvis N/A Computed Tomography 10/11/2024 4:39 PM [employer] Impressions 10/11/2024 4:42 PM [employer] IMPRESSION: No evidence of metastatic disease in the chest, abdomen, or pelvis. Bilateral adrenal nodules which are likely adenomas. Narrative 10/11/2024 4:42 PM [employer] EXAM DESCRIPTION: CT CHEST ABDOMEN AND PELVIS W CONTRAST REASON FOR STUDY: surveillance invasive high-grade papillary urothelial CA- LT kidney x 5 months. ?? TECHNIQUE: CT scan of the chest, abdomen, and pelvis performed with intravenous and ??without ??oral contrast using helical scanning technique with dynamic intravenous contrast injection. Reconstructed coronal and sagittal MPR images reviewed. All images stored on PACS. Automated exposure control was used as a dose optimization technique for this examination. CONTRAST TYPE/DOSE: 71mL of IOPAMIDOL 76 % IV SOLN ??injected via ?? Intravenous COMPARISON: 03/11/[address] FINDINGS: CHEST LUNGS: ?? Mild emphysema. ??There are few tiny pulmonary nodules which are likely benign. ??1 measures 3 mm at the right lung apex image 18 series 2. ??Another 3 mm in the right upper lobe on image 28. ?? Another left lower lobe Cinthia pleural nodule on image 94 measures 3 mm. ?? Fleischner criteria not applicable in this patient population or for these nodules. PLEURA: ?? No effusion. No pneumothorax. MEDIASTINUM/DESMOND: ?? No identified masses or abnormal nodes. HEART: ?? Mild cardiomegaly. ??No pericardial effusion. VASCULATURE CHEST: ?? No thoracic aortic aneurysm or dissection. AXILLA: ?? No adenopathy. CHEST WALL: ?? No masses. ??No subcutaneous air. HARDWARE/LINES/TUBES: ?? Right port catheter extending to the superior vena cava. MUSCULOSKELETAL CHEST: ?? No significant abnormality. ABDOMEN/PELVIS LIVER: ?? Normal size. ??No identified cystic or solid masses. GALLBLADDER: ?? Surgically absent. BILE DUCTS: ?? No intrahepatic or extrahepatic ductal dilatation. SPLEEN: ?? Normal size. ??No focal lesions. PANCREAS: ?? No identified cystic or solid masses. No significant calcifications. No adjacent inflammation or peripancreatic fluid collections. Pancreatic duct not dilated. ?? ADRENALS: ?? There is a 3 cm low attenuating nodule in the right adrenal gland similar to recent prior slightly increased from 2016.. There is also a nodule at the inferior aspect of the right adrenal gland measuring 12 mm which appears similar to 06/27/2016 . ??The left adrenal gland is also thickened measuring 3.3 x 1.5 cm in 2016 it measured 2.4 x 1.3 cm. ??These measured adenomatous on noncontrast CT dated 03/11/2024. KIDNEYS/URINARY TRACT: ?? The left kidney is surgically absent. ?? Right kidney appears normal other than a 2 mm nonobstructive stone in the inferior pole. ??No hydronephrosis ?? . GI: ?? Normal appendix. ??No evidence of obstruction. ??No bowel wall thickening. ??Moderate diverticulosis of the sigmoid colon. PERITONEUM: ?? No ascites or free air. RETROPERITONEUM: ?? No mass or adenopathy. REPRODUCTIVE: ?? No significant abnormality. VASCULATURE ABDOMEN: ?? Moderate atherosclerosis. ??There is a aorto bi-iliac stent graft in place sedated the common iliac on the right and the external on the left. ??The stent appears patent. MUSCULOSKELETAL ABDOMEN PELVIS: ?? No acute finding. OTHER: ?? No significant abnormality. THIS IS AN ELECTRONICALLY VERIFIED FINAL REPORT 10/11/2024 4:39 PM - Electronically signed by ??Paulino Angel M.D. KN: DAVID D: ??10/11/2024 4:39 PM T: ??10/11/2024 4:39 PM Report ID: [id number] Reading Location: ??[id number] Procedure Note Paulino Angel MD - 10/11/2024 EXAM DESCRIPTION: CT CHEST ABDOMEN AND PELVIS W CONTRAST REASON FOR STUDY: surveillance invasive high-grade papillary urothelial CA- LT kidney x 5 months. TECHNIQUE: CT scan of the chest, abdomen, and pelvis performed with intravenous and without oral contrast using helical scanning technique with dynamic intravenous contrast injection. Reconstructed coronal and sagittal MPR images reviewed. All images stored on PACS. Automated exposure control was used as a dose optimization technique for this examination. CONTRAST TYPE/DOSE: 71mL of IOPAMIDOL 76 % IV SOLN injected via Intravenous COMPARISON: 03/11/[address] FINDINGS: CHEST LUNGS: Mild emphysema. There are few tiny pulmonary nodules which are likely benign. 1 measures 3 mm at the right lung apex image 18 series 2. Another 3 mm in the right upper lobe on image 28. Another left lower lobe Cinthia pleural nodule on image 94 measures 3 mm. Fleischner criteria not applicable in this patient population or for these nodules. PLEURA: No effusion. No pneumothorax. MEDIASTINUM/DESMOND: No identified masses or abnormal nodes. HEART: Mild cardiomegaly. No pericardial effusion. VASCULATURE CHEST: No thoracic aortic aneurysm or dissection. AXILLA: No adenopathy. CHEST WALL: No masses. No subcutaneous air. HARDWARE/LINES/TUBES: Right port catheter extending to the superior vena cava. MUSCULOSKELETAL CHEST: No significant abnormality. ABDOMEN/PELVIS LIVER: Normal size. No identified cystic or solid masses. GALLBLADDER: Surgically absent. BILE DUCTS: No intrahepatic or extrahepatic ductal dilatation. SPLEEN: Normal size. No focal lesions. PANCREAS: No identified cystic or solid masses. No significant calcifications. No adjacent inflammation or peripancreatic fluid collections. Pancreatic duct not dilated. ADRENALS: There is a 3 cm low attenuating nodule in the right adrenal gland similar to recent prior slightly increased from 2016.. There is also a nodule at the inferior aspect of the right adrenal gland measuring 12 mm which appears similar to 06/27/2016 . The left adrenal gland is also thickened measuring 3.3 x 1.5 cm in 2016 it measured 2.4 x 1.3 cm. These measured adenomatous on noncontrast CT dated 03/11/2024. KIDNEYS/URINARY TRACT: The left kidney is surgically absent. Right kidney appears normal other than a 2 mm nonobstructive stone in the inferior pole. No hydronephrosis . GI: Normal appendix. No evidence of obstruction. No bowel wall thickening. Moderate diverticulosis of the sigmoid colon. PERITONEUM: No ascites or free air. RETROPERITONEUM: No mass or adenopathy. REPRODUCTIVE: No significant abnormality. VASCULATURE ABDOMEN: Moderate atherosclerosis. There is a aorto bi-iliac stent graft in place sedated the common iliac on the right and the external on the left. The stent appears patent. MUSCULOSKELETAL ABDOMEN PELVIS: No acute finding. OTHER: No significant abnormality. THIS IS AN ELECTRONICALLY VERIFIED FINAL REPORT 10/11/2024 4:39 PM - Electronically signed by Paulino Angel M.D. KN: DAVID Report ID: [id number] Reading Location: [id number] IMPRESSION: No evidence of metastatic disease in the chest, abdomen, or pelvis. Bilateral adrenal nodules which are likely adenomas. Cruzito Orr MD IMG CT ORDERABLES Final Result * CULTURE, URINE (09/28/2024 6:19 PM [employer]) Only the most recent of2 resultswithin the time period is included. CULTURE RESULTS KLEBSIELLA PNEUMONIAE 10/01/2024 4:04 PM [employer] [facility] Culture URINE SPECIMEN COLLECTION, CLEAN CATCH / Unknown Non-Phlebotomy Collection / Unknown 09/28/2024 6:19 PM [employer] 09/28/2024 6:19 PM [employer] Narrative Organism Antibiotic Method Susceptibility Klebsiella pneumoniae Ampicillin/sulbactam [facility] VITEK IIB 8 mcg/ml: Susceptible Klebsiella pneumoniae Cefazolin [facility] V[facility] IIB <=4 mcg/ml: Susceptible Klebsiella pneumoniae Cefepime [facility] V[facility] IIB <=1 mcg/ml: Susceptible Klebsiella pneumoniae Ceftriaxone [facility] IIB <=1 mcg/ml: Susceptible Klebsiella pneumoniae Gentamicin [facility] IIB <=1 mcg/ml: Susceptible Klebsiella pneumoniae Levofloxacin [facility] V[facility] IIB <=0.12 mcg/ml: Susceptible Klebsiella pneumoniae Meropenem [facility] IIB <=0.25 mcg/ml: Susceptible Klebsiella pneumoniae Nitrofurantoin [facility] V[facility] IIB 128 mcg/ml: Resistant Klebsiella pneumoniae Piperacillin/Tazobactam [facility] VIT EK IIB <=4 mcg/ml: Susceptible Klebsiella pneumoniae Tobramycin [facility] V[facility]K IIB <=1 mcg/ml: Susceptible Klebsiella pneumoniae Trimeth/Sulfamethoxazole [facility] BEATRIZ IIB <=20 mcg/ml: Susceptible us Aimee Hand YARDING ENGINEER, GLUE MIXER MICROBIOLOGY - GEN ERAL ORDERABLES Final Result [facility] [address] [place] [address], * (ABNORMAL) POCT UA AUTOMATED W/O MICRO (09/28/2024 6:18 PM [employer]) POC UA SPECIFIC GRAVITY 1.010 URINE PH 6.0 5.0 - 9.0 POC URINE LEUKOCYTES 500 /uL(A) Negative Angy/uL POC URINE NITRITE Negative Negative POC URINE PROTEIN 100 mg/dL(A) Negative mg/dL POC URINE GLUCOSE Norm Negative, Norm mg/dL POC URINE KETONE Negative Negative mg/dL POC URINE UROBILINOGEN Norm Norm, 0.2 E.U./dL (mg/dL), 1 E.U./dL (mg/dL) POC URINE BILIRUBIN Negative Negative mg/dL POC URINE BLOOD INSTRUMENT 250 Manjeet/uL(A) Negative Manjeet/uL POC URINE COLOR Light Yellow POC URINE CLARITY Hazy Urine 09/28/2024 6:18 PM [employer] us Aimee Hand YARDING ENGINEER, GLUE MIXER POINT OF CARE TEST ING (MANUAL) Final Result * (ABNORMAL) MANUAL DIFFERENTIAL (09/18/2024 1:54 PM [employer]) Only the most recent of5 resultswithin the time period is included. BANDS % 1.0 % 09/18/2024 3:02 PM [facility] NEUTROPHILS % 34.0(L) 47.0 - 73.0 % 09/18/2024 3:02 PM [facility] LYMPHOCYTES % 61.0(H) 18.0 - 42.0 % 09/18/2024 3:02 PM [facility] MONOCYTES % 2.0(L) 4.0 - 12.0 % 09/18/2024 3:02 PM [facility] EOSINOPHILS % 1.0 0.0 - 5.0 % 09/18/2024 3:02 PM [facility] METAMYELOCYTES % 1.0(H) <=0.0 % 09/18/20 3:02 PM [facility] NEUTROPHILS ABSOLUTE 1.20(L) 1.60 - 7.70 10(3)/mcL 09/18/2024 3:02 PM [facility] LYMPHOCYTES ABSOLUTE 2.10 1.30 - 3.20 10(3)/mcL 09/18/2024 3:02 PM [facility] MONOCYTES ABSOLUTE 0.07(L) 0.20 - 1.00 10(3)/mcL 09/18/2024 3:02 PM [employer] [facility] EOSINOPHILS ABSOLUTE 0.03 0.00 - 0.40 10(3)/mcL 09/18/2024 3:02 PM [employer] [facility] NRBC PER 100 WBC 2 09/18/20 3:02 PM [employer] [facility] REACTIVE LYMPHOCYTES 5 09/18/2024 3:02 PM [employer] [facility] WBC MORPH STATUS Normal 09/18/20 3:02 PM [employer] [facility] RBC MORPH STATUS Normal 09/18/20 3:02 PM [employer] [facility] PLATELET STATUS Normal 3:02 PM [employer] [facility] Blood Sub-Q Port Venou s Access Device (Medi-Port, Implanted Port) / Unknown 09/18/2024 1:54 PM [employer] 09/18/2024 1:54 PM [employer] us Cruzito Orr MD HEMATOLOGY ORDERABLES Fi nal Result Performing Organization Address City/[facility]/ZIP Co de Phone Number [facility] [place] [address] * UROLOGY CONSULT (09/16/2024 12:00 AM [employer]) 09/16/2024 us Provider Scan GENERIC SCAN ORDERS CONSULT Ivette l Result SCAN * PREPARE PLATELETS (09/13/2024 6:14 AM [employer]) Product Code [id number] [facility] Unit Number [id number] [facility] UNIT_ABO A [facility] UNIT_RH POS [facility] Dispense Status TRANSFUSED [facility] Blood Expiration Date [facility] Blood Type Barcode 6200 [facility] Product Volume 0 [facility] Coding System [id number] [facility] Blood Cruzito Orr MD BLOOD BANK ORDERABLES Fi nal Result Performing Organization Address City/[facility]/ZIP Co de Phone Number [facility] [place] [address] * Transfuse - Platelets (09/12/2024 11:59 AM [employer]) Cruzito Orr MD NURSING TREATMENT - BLOO D ADMINISTRATION Final Result * TYPE & SCREEN (CROSSMATCH CONVERTIBLE) (09/11/2024 3:25 PM [employer]) ABO TYPING A 09/11/2024 5:15 PM [employer] [facility] RH Positive 09/11/2024 5:15 PM [employer]AL [facility] ABSC Negative 09/11/2024 5:15 PM [employer] [facility] Blood Venipuncture / Unknown 09/11/2024 3:25 PM [employer] 09/11/2024 3:29 PM [employer] Cruzito Orr MD BLOOD BANK ORDERABLES Ed ited Result - Final Performing Organization Address [facility] Co de Phone Number [facility] #1 [facility] [place] [address] * ABO/RH (D) RECHECK (09/11/2024 2:10 PM [employer]) ABO TYPING A 09/11/2024 6:46 PM [employer] PROF[employer]AL [facility] RH Positive 09/11/2024 6:46 PM [employer]AL [facility] Blood Venipuncture / Unknown 09/11/2024 2:10 PM [employer] PROF[employer]AL 09/11/2024 5:33 PM [employer]AL Mamie Carlton MD PhD BLOOD BANK ORDERABLES Final Result Performing Organization Address City/[facility]/ZIP Co de Phone Number [facility] #[address] [facility] [place] [address] * (ABNORMAL) VITAMIN B12 (08/28/2024 10:13 AM [employer]) VITAMIN B12 >2,000(H) 213 - 816 pg/mL 08/28/2024 11:16 AM [employer] PROFESSIONAL [facility] Blood Sub-Q Port Venou s Access Device (Medi-Port, Implanted Port) / Unknown 08/28/2024 10:13 AM [employer]AL 08/28/2024 10:13 AM [employer] Cruzito Orr MD CHEMISTRY ORDERABLES Fin al Result [facility] [place] [address] * IRON,TRANSFERN,CALC.TIBC,%SAT (08/28/2024 8:51 AM [employer]) IRON 52 25 - 156 mcg/dL 08/28/2024 10:01 AM [employer] PROF[employer]AL [facility] TRANSFERRIN 218 173 - 360 mg/dL 08/28/2024 10:01 AM [employer]AL [facility] TIBC, CALCULATED 273 265 - 497 mcg/dL 08/28/2024 10:01 AM [employer] PROFESSIONAL [facility] % SATURATION * 19 15 - 62 % 08/28/2024 10:01 AM [employer] PROFESSIONAL [facility] Blood Venipuncture / Unknown 08/28/2024 8:51 AM [employer] PROFESSIONAL 08/28/2024 9:46 AM [employer]AL Cruzito Orr MD CHEMISTRY ORDERABLES Fin al Result [facility] [place] [address] * (ABNORMAL) FERRITIN (08/28/2024 8:51 AM [employer]) FERRITIN 246(H) 5 - 204 ng/mL 08/28/2024 10:20 AM [employer] PROFESSIONAL [facility] Blood Venipuncture / Unknown 08/28/2024 8:51 AM [employer] PROFESSIONAL 08/28/2024 9:46 AM [employer] PROFESSIONAL Cruzito Orr MD CHEMISTRY ORDERABLES Fin al Result Performing Organization Address [facility] Co de Phone Number [facility] [place] [address] * TROPONIN I, HIGH SENSITIVITY (HSTRP) (08/19/2024 12:03 AM [employer]) Only the most recent of2 resultswithin the time period is included. TROPONIN I, HIGH SENSITIVITY- SHELBY 8 <=14 ng/L 08/19/2024 12:31 AM [employer]ESSIONAL [facility] Comment: High-sensitivity troponin I results are reported in ng/L making the result appear to be 1,000 times higher than the contemporary troponin I value which is reported in ng/ml. Results from [place]. Blood Venipuncture / Unknown 08/19/2024 12:03 AM [employer] PROFESSIONAL 08/19/2024 12:05 AM [employer] PROFESSIONAL Kraig Glass MD CHEMISTRY ORDERABLES Ivette l Result Performing Organization Address [facility] Co de Phone Number [facility] [place] [address] * XR CHEST SINGLE VIEW PORTABLE (08/18/2024 10:58 PM [employer]) Anatomical Region Laterality Modality Chest N/A Computed Radiogr aphy 08/18/2024 11:0 8 PM [employer] Impressions 08/18/2024 11:11 PM [employer] IMPRESSION: No acute abnormality identified. ?? Narrative 08/18/2024 11:11 PM [employer]AL EXAM DESCRIPTION: XR CHEST SINGLE VIEW PORTABLE REASON FOR STUDY: shortness of breath ?? TECHNIQUE: ??Portable upright AP view of the chest. COMPARISON: 07/02/2024 FINDINGS: LUNGS AND PLEURA: ??No focal opacity, large effusion, or pneumothorax identified. HEART/MEDIASTINUM: ??Trachea midline. ?? Cardiac silhouette normal in size. Mediastinal contours appear normal. BONES: ??Mild shoulder arthritis. ?? CHEST WALL: ??Unremarkable. ?? UPPER ABDOMEN: ??Unremarkable. ?? THIS IS AN ELECTRONICALLY VERIFIED FINAL REPORT 08/18/2024 11:08 PM - Electronically signed by ??Conrad Grewal M.D. AR: [email or web address] D: ??08/18/2024 11:08 PM T: ??08/18/2024 11:08 PM Report ID: [id number] Reading Location: ??[id number] Procedure Note Conrad Grewal MD - 08/18/2024 EXAM DESCRIPTION: XR CHEST SINGLE VIEW PORTABLE REASON FOR STUDY: shortness of breath TECHNIQUE: Portable upright AP view of the chest. COMPARISON: 07/02/2024 FINDINGS: LUNGS AND PLEURA: No focal opacity, large effusion, or pneumothorax identified. HEART/MEDIASTINUM: Trachea midline. Cardiac silhouette normal in size. Mediastinal contours appear normal. BONES: Mild shoulder arthritis. CHEST WALL: Unremarkable. UPPER ABDOMEN: Unremarkable. THIS IS AN ELECTRONICALLY VERIFIED FINAL REPORT 08/18/2024 11:08 PM - Electronically signed by Conrad Grewal M.D. AR: KEI Report ID: [id number] Reading Location: [id number] IMPRESSION: No acute abnormality identified. Kraig Glass MD IMG DIAGNOSTIC ORDERABLES Final Result * EKG 12 LEAD (08/18/2024 9:57 PM MIDDLE SCHOOL PROFESSIONAL) Ventricular Rate 91 BPM EXTERNAL EKG Atrial Rate 91 BPM EXTERNAL EKG P-R Interval 140 ms EXTERNAL EKG QRS Duration 70 ms EXTERNAL EKG Q-T Duration 360 ms EXTERNAL EKG QTC CALCULATION 442 ms EXTERNAL EKG P [place] 78 degrees EXTERNAL EKG R [place] 45 degrees EXTERNAL EKG T [place] 79 degrees EXTERNAL EKG 08/18/2024 9:57 PM MIDDLE SCHOOL PROFESSIONAL Impressions EXTERNAL EKG - 08/21/2024 10:46 PM MIDDLE SCHOOL PROFESSIONAL Normal sinus rhythm Delayed R wave progression, consider septal infarct pattern vs lead misplacement Abnormal ECG No previous ECGs available Confirmed by Magdiel Duong ([id number]) on 08/21/2024 10:46:46 PM Narrative Procedure Note Magdiel Duong MD - 08/21/2024 IMPRESSION: Normal sinus rhythm Delayed R wave progression, consider septal infarct pattern vs leadmisplacement Abnormal ECG No previous ECGs available Confirmed by Magdiel Duong ([id number]) on 08/21/2024 10:46:46 PM Kraig Glass MD IMG ECG ORDERABLES Final Result Performing Organization Address City/[facility]/ZIP Co de Phone Number EXTERNAL EKG * EKG SCAN (08/18/2024 12:00 AM MIDDLE SCHOOL PROFESSIONAL) 08/18/2024 us Provider Scan IMG ECG ORDERABLES Final Result Performing Organization Address City/[facility] Co de Phone Number RESULTING AGENCY * (ABNORMAL) URINALYSIS REFLEX IF INDICATED BY ABNORMAL RESULTS (08/12/2024 10:35 AM MIDDLE SCHOOL PROFESSIONAL) SPECIFIC GRAVITY 1.005 1.003 - 1.030 08/12/2024 11:55 AM MIDDLE SCHOOL PROFESSIONAL [facility] URINE PH 6.0 5.0 - 9.0 08/12/2024 11:55 AM MIDDLE SCHOOL PROFESSIONAL [facility] WBC ESTERASE 500 /uL(A) Negative 08/12/2024 11:55 AM MIDDLE SCHOOL PROFESSIONAL [facility] NITRITE Positive(A) Negative 08/12/2024 11:55 AM MIDDLE SCHOOL PROFESSIONAL [facility] PROTEIN, RANDOM URINE 30 mg/dL(A) Negative 08/12/2024 11:55 AM MIDDLE SCHOOL PROFESSIONAL [facility] URINE GLUCOSE, QUAL Negative Negative 08/12/2024 11:55 AM MIDDLE SCHOOL PROFESSIONAL [facility] URINE KETONES Negative Negative 08/12/2024 11:55 AM MIDDLE SCHOOL PROFESSIONAL [facility] UROBILINOGEN Normal Normal mg/dL 08/12/2024 11:55 AM MIDDLE SCHOOL PROFESSIONAL [facility] URINE BLOOD 250 /uL(A) Negative manjeet/ul 08/12/2024 11:55 AM MIDDLE SCHOOL PROFESSIONAL [facility] URINALYSIS COLOR Yellow 08/12/2024 11:55 AM MIDDLE SCHOOL PROFESSIONAL [facility] URINALYSIS CLARITY Slightly Cloudy 08/12/2024 11:55 AM MIDDLE SCHOOL PROFESSIONAL [facility] WBC (Urine) 51-150(A) Negative, 0-5 /hpf 08/12/2024 11:55 AM MIDDLE SCHOOL PROFESSIONAL [facility] URINE RBC'S 21-50(A) Negative, 0-2 /hpf 08/12/2024 11:55 AM MIDDLE SCHOOL PROFESSIONAL [facility] EPITHELIAL CELLS Occasional /lpf 08/12/2024 11:55 AM MIDDLE SCHOOL PROFESSIONAL [facility] BACTERIA, URINE Many(A) Negative /hpf 08/12/2024 11:55 AM MIDDLE SCHOOL PROFESSIONAL [facility] Urine URINE SPECIMEN COLLECTION, CLEAN CATCH / Unknown Non-Phlebotomy Collection / Unknown 08/12/2024 10:35 AM MIDDLE SCHOOL PROFESSIONAL 08/12/2024 11:20 AM MIDDLE SCHOOL PROFESSIONAL Cruzito Orr MD URINE ORDERABLES Final R esult [facility] [address] [place] [address] from Last 3 Months Insurance [facility] Care Teams Carriage Setter Relationship Specialty Start Date End Date Karson Forbes MD [address] [place] [address] PCP - General Family Medicine 06/18/24 Levi Carpenter DPM Podiatry 06/07/16 Los Perry MD [address] [phone] Consulting Physician General Surgery 06/20/24
--- OUTSIDE RECORDS SUMMARY | 2024-10-13 03:57 | XMS_ITS ---
Author Organization [facility] Address [address] [facility] [place] [address] Phone Care Team Providers Care Mail Clerks Supervisor Name Role Phone Levi Carpenter Mirlande DPLolly Unavailable [phone] Karson Forbes MD Primary Care Provider [phone] Los Perry MD Unavailable Active Problems Problem Noted Date Diagnosed Date [...] 06/07/2016 Tailor's bunion of left foot 06/07/2016 Current Treatment and Therapy Plans [facility]: Gemcitabine / CARBOplatin (AUC 5) - 21 Day Cycle - Bladder Cancer* Plan Start Date:06/24/2024 Plan Provider:Cruzito Orr MD Linked Problems Urothelial cancer (HCC) Treatment Medications Current Day (Day 1 , Cycle 4 - Planned for 09/12/2024) Next Day (Day 8, Cycle 4 - Planned for 09/19/2024) CARBOplatin (PARAPLATIN) chemo infusion (by AUC)gemcitabine (GEMZAR) chemo infusion CARBOplatin 288 mg in sodium chloride 0.9 % 250 mL chemo infusiongemcitabine HCl 1,320 mg in sodium chloride 0.9 % 250 mL chemo infusion gemcitabine HCl 1,650 mg in sodium chloride 0.9 % 250 mL chemo infusion Other Current Plans [facility]: Epoetin William (40,000 units weekly) 56 day cycle ??? Support* Plan Start Date:08/28/2024 Plan Provider:Cruzito Orr MD Linked Problems Anemia associated with chemo therapy Treatment Medications Current Day (Day 4 3, Cycle 1 - Planned for 10/10/2024) Next Day (Day 50, Cycle 1 - Planned for 10/17/2024) No medications scheduled. No medications schedul ed. No medications scheduled. Past Treatment and Therapy Plans No past plan information found. Lifetime Dose Tracking * Chemical Lifetime Dose Automatic Entry Manual Entr y Carboplatin 674.651 mg/m2 (1,117.5 mg) 674.651 mg/m2 (1,117.5 mg) 0 mg/m2 (0 mg) Resolved Problems Problem Noted Date Diagnosed Date Resolved Date Tailor's bunion of right foot 06/07/2016 02/17/2017
--- OUTSIDE RECORDS SUMMARY | 2024-10-13 03:57 | XMS_ITS | Encounter Summary ---
Author Organization [facility] Care Team Providers Care Rn Case Management Name Role Phone Levi Carpenter DPM Unavailable [phone] Karson Forbes MD Primary Care Provider [phone] Los Perry MD Unavailable Encounter Details Date Type Department Care Team (Latest Contact Info) Description 09/28/2024 Travel Social History Tobacco Use Types Packs/Day Years Used Date Smoking Tobacco: Every Day Cigarettes 1 44.3 Started: 06/18/1980 Smokeless Tobacco: Never Alcohol Use Standard Drinks/Week Comments No 0 (1 standard drink = 0.6 oz pur e alcohol) Sexually Active Control Partners Comments Not Currently Comments No Sex and Gender Information Value Date Recorded Sex Assigned at Not on file Legal Sex Female 10:25 PM CDT Gender Identity Not on file Sexual Orientation Not on file documented as of this encounter Plan of Treatment Upcoming Encounters Date Type Department Care Team (Late st Contact Info) Description 10/16/2024 10:40 AM WOOD BARREL RECONDITIONER Office Visit [facility] Services [address] [place] [phone] Cruzito Orr MD [address] [place] [address] Discharge Disposition: Discharged to home or Selfcare 10/16/2024 1:20 PM WOOD BARREL RECONDITIONER Clinical Support [facility] Oncology Services [address] [place] [phone] Discharge Disposition: Discharged to home or Selfcare 10/17/2024 1:00 PM WOOD BARREL RECONDITIONER Clinical Support [facility] Services [address] [place] [phone] Discharge Disposition: Discharged to home or Selfcare 10/23/2024 9:20 AM WOOD BARREL RECONDITIONER Clinical Support [facility] Oncology Services [address] [place] [phone] Discharge Disposition: Discharged to home or Selfcare 10/24/2024 1:00 PM WOOD BARREL RECONDITIONER Clinical Support [facility] Oncology Services [address] [place] [phone] Discharge Disposition: Discharged to home or Selfcare documented as of this encounter Visit Diagnoses Not on filedocumented in this encounter Care Teams Rn Case Management Relationship Specialty Start Date End Date Karson Forbes MD [address] [place] [address] PCP - General Family Medicine 06/18/24 Levi Carpenter DPM Podiatry 06/07/16 Los Perry MD [address] [phone] Consulting Physician General Surgery 06/20/24 documented as of this encounter
--- OUTSIDE RECORDS SUMMARY | 2024-10-13 03:57 | XMS_ITS | Encounter Summary ---
Author Organization [facility] Care Team Providers Care Banking Specialist Name Role Phone Levi Carpenter DPM Unavailable [phone] Karson Forbes MD Primary Care Provider [phone] Los Perry MD Unavailable Encounter Details Date Type Department Care Team (Latest Contact Info) Description 09/26/2024 Travel Social History Tobacco Use Types Packs/Day Years Used Date Smoking Tobacco: Every Day Cigarettes 1 44.3 Started: 06/18/1980 Smokeless Tobacco: Never Alcohol Use Standard Drinks/Week Comments No 0 (1 standard drink = 0.6 oz pur e alcohol) Comments No Sex and Gender Information Value Date Recorded Sex Assigned at Not on file Legal Sex Female 10:25 PM CDT Gender Identity Not on file Sexual Orientation Not on file documented as of this encounter Plan of Treatment Upcoming Encounters Date Type Department Care Team (Late st Contact Info) Description 10/16/2024 10:40 AM WELL LOGGING MUD ANALYSIS CAPTAIN Office Visit [facility] Oncology Services [address] [place] [phone] Cruzito Orr MD [address] [place] [address] Discharge Disposition: Discharged to home or Selfcare 10/16/2024 1:20 PM WELL LOGGING MUD ANALYSIS CAPTAIN Clinical Support [facility] Oncology Services [address] [place] [phone] Discharge Disposition: Discharged to home or Selfcare 10/17/2024 1:00 PM WELL LOGGING MUD ANALYSIS CAPTAIN Clinical Support [facility] Oncology Services [address] [place] [phone] Discharge Disposition: Discharged to home or Selfcare 10/23/2024 9:20 AM WELL LOGGING MUD ANALYSIS CAPTAIN Clinical Support [facility] Oncology Services [address] [place] [phone] Discharge Disposition: Discharged to home or Selfcare 10/24/2024 1:00 PM WELL LOGGING MUD ANALYSIS CAPTAIN Clinical Support [facility] Oncology Services [address] [place] [phone] Discharge Disposition: Discharged to home or Selfcare documented as of this encounter Visit Diagnoses Not on filedocumented in this encounter Care Teams Banking Specialist Relationship Specialty Start Date End Date Karson Forbes MD [address] [place] [address] PCP - General Family Medicine 06/18/24 Levi Carpenter DPM Podiatry 06/07/16 Los Perry MD [address] [phone] Consulting Physician General Surgery 06/20/24 documented as of this encounter
--- OUTSIDE RECORDS SUMMARY | 2024-10-13 03:57 | XMS_ITS | Encounter Summary ---
Author Organization [facility] Address [address] [facility] [place] [address] Phone Care Team Providers Care Pier Worker Name Role Phone Pauline, Levi Nogueira DPM Unavailable [phone] Karson Forbse MD Primary Care Provider [phone] Los Perry MD Unavailable Reason for Visit * Episode Based Medications (Routine) - Authorized Specialty Diagnoses / Procedures Referred By Contac t Referred To Contact Diagnoses Anemia associated with chemotherapy Cruzito Orr MD [address] [place] [address] Phone: tel: fax: [facility] Oncology Services [address] [place] [address] Phone: tel: fax: Referral ID Status Reason Start Date Expiration Date V isits Requested Visits Authorized [id number] Authorized 08/28/2024 1 30 Encounter Details Date Type Department Care Team (Latest Contact Info) Description 09/26/2024 1:00 PM ROOFING APPLICATOR Clinical Support [facility] Oncology Services [address] [place] [phone] Cruzito Orr MD [address] [place] [address] Anemia associated with chemotherapy (Primary Dx) Discharge Disposition: Discharged to home or Selfcare Social History Tobacco Use Types Packs/Day Years [...] on file documented as of this encounter Last Filed Vital Signs Vital Sign Reading Time Taken Comments Blood Pressure 122/73 09/26/2024 1:19 PM ROOFING APPLICATOR Pulse 76 09/26/2024 1:19 PM ROOFING APPLICATOR Temperature 36.3 ??C (97.3 ??F) 09/26/2024 1:19 PM CS T Respiratory Rate 16 09/26/2024 1:19 PM ROOFING APPLICATOR Oxygen Saturation 100% 09/26/2024 1:19 PM ROOFING APPLICATOR Inhaled Oxygen Concentration - - Weight - - Height - - Body Mass Index - - documented in this encounter Miscellaneous Notes * Interdisciplinary - Whitley Rodriguez RN - 09/26/2024 1:00 PM CST Patient to treatment bay. VS obtained. Patient medicated by injection per MD orders and tolerated well. Site secured with bandaid. Per MD, lab recheck on 10/01 and possible chemo on 10/03. Last cycleof chemo held until platelets reach 100. Continue weekly lab and Retacrit. Pt voiced she is amendable to this plan of possible chemo although she is skeptical that she will want chemo even if platelets are at 100 since she drops so much after treatment, patient may want her platelets to be higher than that. Pt aware that we will at least plan for injection on 10/03 but will leave appointment as achemotherapy just in case. Pt agreeable. Patient left facility in safe disposition. ING APPLICATOR documented in this encounter Plan of Treatment Upcoming Encounters Date Type Department Care Team (Late st Contact Info) Description 10/16/2024 10:40 AM ROOFING APPLICATOR Office Visit [facility] Oncology Services [address] [place] [phone] Cruzito Orr MD [address] [place] [address] Discharge Disposition: Discharged to home or Selfcare 10/16/2024 1:20 PM ROOFING APPLICATOR Clinical Support [facility] Oncology Services [address] [place] [phone] Discharge Disposition: Discharged to home or Selfcare 10/17/2024 1:00 PM ROOFING APPLICATOR Clinical Support [facility] Oncology Services [address] [place] [phone] Discharge Disposition: Discharged to home or Selfcare 10/23/2024 9:20 AM ROOFING APPLICATOR Clinical Support [facility] Oncology Services [address] [place] [phone] Discharge Disposition: Discharged to home or Selfcare 10/24/2024 1:00 PM ROOFING APPLICATOR Clinical Support [facility] Oncology Services [address] [place] [phone] Discharge Disposition: Discharged to home or Selfcare documented as of this encounter Visit Diagnoses Diagnosis 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 documented in this encounter Administered Medications Inactive Administered Medications - up to 3 most recent administrations Medication Order MAR Action Action Date Dose Rate Site epoetin daniel-EPBX (RETACRIT) injection 40,000 Units 40,000 Units, Subcutaneous, ONCE, 1 dose, On Laura 09/26/24 at 1300Indications:Anemia associated with chemotherapy Given 09/26/2024 1:22 PM ROOFING APPLICATOR 40,000 Units Right Lateral Upper Arm documented in this encounter Care Teams Pier Worker Relationship Specialty Start Date End Date Karson Forbes MD [address] [place] [address] PCP - General Family Medicine 06/18/24 Levi Carpenter DPM Podiatry 06/07/16 Los Perry MD [address] [phone] Consulting Physician General Surgery 06/20/24 documented as of this encounter
--- OUTSIDE RECORDS SUMMARY | 2024-10-13 03:57 | XMS_ITS | Encounter Summary ---
Author Organization [facility] Care Team Providers Care Busperson Name Role Phone Levi Carpenter DPM Unavailable [phone] Karson Forbes MD Primary Care Provider [phone] Los Perry MD Unavailable Encounter Details Date Type Department Care Team (Latest Contact Info) Description 10/01/2024 Travel Social History Tobacco Use Types Packs/Day [...] st Contact Info) Description 10/16/2024 10:40 AM IMAGE ARCHIVIST Office Visit [facility] Oncology Services [address] [place] [phone] Cruzito Orr MD [address] [place] [address] Discharge Disposition: Discharged to home or Selfcare 10/16/2024 1:20 PM IMAGE ARCHIVIST Clinical Support [facility] Oncology Services [address] [place] [phone] Discharge Disposition: Discharged to home or Selfcare 10/17/2024 1:00 PM IMAGE ARCHIVIST Clinical Support [facility] Oncology Services [address] [place] [phone] Discharge Disposition: Discharged to home or Selfcare 10/23/2024 9:20 AM IMAGE ARCHIVIST Clinical Support [facility] Oncology Services [address] [place] [phone] Discharge Disposition: Discharged to home or Selfcare 10/24/2024 1:00 PM IMAGE ARCHIVIST Clinical Support [facility] Oncology Services [address] [place] [phone] Discharge Disposition: Discharged to home or Selfcare documented as of this encounter Visit Diagnoses Not on filedocumented in this encounter Care Teams Busperson Relationship Specialty Start Date End Date Karson Forbes MD [address] [place] [address] PCP - General Family Medicine 06/18/24 Levi Carpenter DPM Podiatry 06/07/16 Los Perry MD [address] [phone] Consulting Physician General Surgery 06/20/24 documented as of this encounter
--- OUTSIDE RECORDS SUMMARY | 2024-10-13 03:57 | XMS_ITS | Encounter Summary ---
Author Organization [facility] Address [address] [place] [address] Phone Care Team Providers Care Gate Shear Operator Name Role Phone Levi Carpenter DPM Unavailable [phone] Karson Forbes MD Primary Care Provider [phone] Los Perry MD Unavailable Encounter Details Date Type Department Care Team (Late st Contact Info) Description 10/01/2024 10:00 AM MUFFLE OPERATOR Clinical Support [facility] Oncology Services [address] [place] [phone] Cruzito Orr MD [address] [place] [address] Urothelial cancer (HCC) Discharge Disposition: Discharged to [...] Sign Reading Time Taken Comments Blood Pressure - - Pulse - - Temperature - - Respiratory Rate - - Oxygen Saturation - - Inhaled Oxygen Concentration - - Weight 64.7 kg (142 lb 9.6 oz) 10/01/2024 9:00 A M MUFFLE OPERATOR Height - - Body Mass Index 26.94 09/11/2024 2:22 PM MUFFLE OPERATOR documented in this encounter Progress Notes * Dayana Morocho, RN - 10/01/2024 10:00 AM CST Patient arrived to Infusion. Port accessed per protocol. Blood drawn as ordered. Port flushed with saline/heparin. Deaccessed. Gauze/paper tape applied. Patient discharged without concern aware of appointment for 10/03/24 LE OPERATOR documented in this encounter Plan of Treatment Upcoming Encounters Date Type Department Care Team (Late st Contact Info) Description 10/16/2024 10:40 AM MUFFLE OPERATOR Office Visit [facility] Oncology Services [address] [place] [phone] Cruzito Orr MD [address] [place] [address] Discharge Disposition: Discharged to home or Selfcare 10/16/2024 1:20 PM MUFFLE OPERATOR Clinical Support [facility] Oncology Services [address] [place] [phone] Discharge Disposition: Discharged to home or Selfcare 10/17/2024 1:00 PM MUFFLE OPERATOR Clinical Support [facility] Oncology Services [address] [place] [phone] Discharge Disposition: Discharged to home or Selfcare 10/23/2024 9:20 AM MUFFLE OPERATOR Clinical Support [facility] Oncology Services [address] [place] [phone] Discharge Disposition: Discharged to home or Selfcare 10/24/2024 1:00 PM MUFFLE OPERATOR [facility] [address] [place] [address] Discharge Disposition: Discharged to home or Selfcare documented as of this encounter Procedures Procedure Name Priority Date/Time Associated Diagnosis Comments CBC WITH AUTO DIFFERENTIAL STAT 10/01/2024 10:16 AM MUFFLE OPERATOR Urothelial cancer (HCC) CMP (COMPREHENSIVE METABOLIC PANEL) STAT 10/01/2024 10:16 AM MUFFLE OPERATOR Urothelial cancer (HCC) COMPLETE BLOOD COUNT (CBC) WITH DIFF STAT 10/01/2024 10:16 AM MUFFLE OPERATOR Urothelial cancer (HCC) documented in this encounter Results * (ABNORMAL) CBC WITH AUTO DIFFERENTIAL (10/01/2024 10:16 AM MUFFLE OPERATOR) WBC 4.68 4.00 - 12.00 10(3)/mcL 10/01/2024 11:50 AM MUFFLE OPERATOR [facility] RBC 2.65(L) 3.80 - 5.30 10(6)/mcL 10/01/2024 11:50 AM MUFFLE OPERATOR [facility] HEMOGLOBIN (HGB) 9.6(L) 12.0 - 15.8 g/dL 10/01/2024 11:50 AM MUFFLE OPERATOR [facility] HEMATOCRIT (HCT) 29.0(L) 36.0 - 47.0 % 10/01/2024 11:50 AM MUFFLE OPERATOR [facility] MCV 109.4(H) 82.0 - 96.0 fL 10/01/2024 11:50 AM MUFFLE OPERATOR [facility] MCH 36.2(H) 26.0 - 34.0 pg 10/01/2024 11:50 AM MUFFLE OPERATOR [facility] MCHC 33.1 31.0 - 36.0 g/dL 10/01/2024 11:50 AM MUFFLE OPERATOR [facility] PLATELET COUNT 88(L) 140 - 440 10(3)/[facility] 10/01/2024 11:50 AM [facility] RDW 23.6(H) 11.8 - 15.5 % 10/01/2024 11:50 AM [facility] MPV 10.6 9.7 - 12.4 fL 10/01/2024 11:50 AM [facility] NEUTROPHILS 49.2 47.0 - 73.0 % 10/01/2024 11:50 AM [facility] LYMPHOCYTES 39.5 18.0 - 42.0 % 10/01/2024 11:50 AM [facility] MONOCYTES 10.7 4.0 - 12.0 % 10/01/2024 11:50 AM [facility] EOSINOPHILS 0.4 0.0 - 5.0 % 10/01/2024 11:50 AM [facility] BASOPHILS 0.2 0.0 - 1.0 % 10/01/2024 11:50 AM [facility] ABSOLUTE NEUTROPHILS 2.30 1.60 - 7.70 10(3)/[facility] 10/01/2024 11:50 AM [facility] ABSOLUTE LYMPHOCYTES 1.85 1.30 - 3.20 10(3)/[facility] 10/01/2024 11:50 AM [facility] ABSOLUTE MONOCYTES 0.50 0.20 - 1.00 10(3)/[facility] 10/01/2024 11:50 AM [facility] ABSOLUTE EOSINOPHIL 0.02 0.00 - 0.40 10(3)/[facility] 10/01/2024 11:50 AM [facility] ABSOLUTE BASOPHILS 0.01 0.00 - 0.10 10(3)/[facility] 10/01/2024 11:50 AM [facility] NRBC PER 100 WBC 0 10/01/20 11:50 AM [facility] RESULTS ARE CONSISTENT WITH PERIPHERAL SMEAR REVIEW Yes 10/01/2024 11:50 AM [facility] RBC MORPHOLOGY CONSISTENT WITH INDICES Yes 10/01/2024 11:50 AM [facility] Blood Sub-Q Port Venou s Access Device (Medi-Port, Implanted Port) / Unknown 10/01/2024 10:16 AM MUFFLE OPERATOR 10/01/2024 10:16 AM MUFFLE OPERATOR us Cruzito Orr MD HEMATOLOGY ORDERABLES Fi nal Result [facility] [address] [place] [address] * (ABNORMAL) CMP (COMPREHENSIVE METABOLIC PANEL) (10/01/2024 10:16 AM MUFFLE OPERATOR) SODIUM 136 136 - 145 mmol/L 10/01/2024 11:28 AM [facility] POTASSIUM 4.5 3.5 - 5.1 mmol/L 10/01/2024 11:28 AM [facility] CHLORIDE 109(H) 98 - 107 mmol/L 10/01/2024 11:28 AM [facility] CO2, VENOUS 19(L) 22 - 30 mmol/L 10/01/2024 11:28 AM [facility] ANION GAP 12.5 <18.0 mmol/L 10/01/2024 11:28 AM [facility] GLUCOSE 88 70 - 99 mg/dL 10/01/2024 11:28 AM [facility] BUN 9(L) 10 - 20 mg/dL 10/01/2024 11:28 AM [facility] CREATININE, BLOOD 1.20(H) 0.60 - 1.00 mg/dL 10/01/2024 11:28 AM [facility] BUN/CREATININE RATIO 8(L) 12 - 20 ratio 10/01/2024 11:28 AM [facility] TOTAL PROTEIN 6.4 6.3 - 8.2 g/dL 10/01/2024 11:28 AM [facility] ALBUMIN 4.1 3.5 - 5.0 g/dL 10/01/2024 11:28 AM [facility] A/G RATIO 1.8 1.0 - 2.2 10/01/2024 11:28 AM [facility] CALCIUM 8.8 8.7 - 10.5 mg/dL 10/01/2024 11:28 AM [facility] T BILI 0.3 0.2 - 1.2 mg/dL 10/01/2024 11:28 AM [facility] SGOT (AST) 17 5 - 34 U/L 10/01/2024 11:28 AM [facility] SGPT (ALT) 17 0 - 55 U/L 10/01/2024 11:28 AM [facility] ALKALINE PHOSPHATASE 74 40 - 150 U/L 10/01/2024 11:28 AM [facility] IS THE PATIENT REQUIRED TO BE FASTING? No 10/01/2024 11:28 AM [facility] GFR, ESTIMATED 52(L) >=60 10/01/2024 11:28 AM [facility] Comment: Creatinine Clearance is the preferred criteria for selecting drug dose adjustments in renally impaired patients. ??The GFR is provided as additional pertinent clinical information. GFR is reported in mL/min/1.73 sq m. Calculation based on the Chronic Kidney Disease Epidemiology Collaboration (CKD- EPI) equation refit without adjustment for race. GFR, EST. 56(L) >=60 024 11:28 AM [facility] GFR, EST. NONAFRICAN 46(L) >=60 10/01/2024 11:28 AM [facility] Blood Sub-Q Port Venou s Access Device (Medi-Port, Implanted Port) / Unknown 10/01/2024 10:16 AM MUFFLE OPERATOR 10/01/2024 10:16 AM MUFFLE OPERATOR us Cruzito Orr MD CHEMISTRY ORDERABLES Fin al Result [facility] [address] [place] [address] documented in this encounter Visit Diagnoses Diagnosis Urothelial cancer (HCC) Malignant neoplasm of other specified sites of urinary organs documented in this encounter Administered Medications Inactive Administered Medications - up to 3 most recent administrations Medication Order MAR Action Action Date Dose Rate Site Heparin Na (Pork) Lock Flsh PF SOLN 50 Units 50 Units, Intravenous, ONCE, 1 dose, On Mon10/01/24 at 1030Indications:Urothelial cancer (HCC) Given 10/01/2024 10:15 AM MUFFLE OPERATOR 50 Units documented in this encounter Care Teams Gate Shear Operator Relationship Specialty Start Date End Date Karson Forbes MD [address] [place] [address] PCP - General Family Medicine 06/18/24 Levi Carpenter DPM Podiatry 06/07/16 Los Perry MD [address] [phone] Consulting Physician General Surgery 06/20/24 documented as of this encounter
--- OUTSIDE RECORDS SUMMARY | 2024-10-13 03:57 | XMS_ITS | Encounter Summary ---
Author Organization [facility] Address [address] [place] [address] Phone Care Team Providers Care Tradeshow Worker Name Role Phone Levi Carpenter DPM Unavailable Karson Forbes MD Primary Care Provider [phone] Los Perry MD Unavailable Reason for Visit * Reason Comments Urinary Pain Encounter Details Date Type Department Care Team (Latest Contact Info) Description 09/28/2024 6:10 PM DIGITAL IMAGING TECHNICIAN Urgent Care Visit [facility] [place] [address] [place] [address] Aimee Hand, ASH COLLECTOR, METEOROLOGY FACULTY MEMBER [address] [place] [address] Acute cystitis with hematuria (Primary Dx); Dysuria [...] Sign Reading Time Taken Comments Blood Pressure 114/72 09/28/2024 6:10 PM DIGITAL IMAGING TECHNICIAN Pulse 94 09/28/2024 6:10 PM DIGITAL IMAGING TECHNICIAN Temperature 36.4 ??C (97.5 ??F) 09/28/2024 6:10 PM CS T Respiratory Rate 18 09/28/2024 6:10 PM DIGITAL IMAGING TECHNICIAN Oxygen Saturation 98% 09/28/2024 6:10 PM DIGITAL IMAGING TECHNICIAN Inhaled Oxygen Concentration - - Weight - - Height - - Body Mass Index - - documented in this encounter Patient Instructions * Patient Instructions* Aimee Hand APRN, CNP - 09/28/2024 6:10 PM DIGITAL IMAGING TECHNICIAN Increase fluids. Void before and after intercourse Wipe from front back Use only unscented products Take all medications as prescribed. If not improved after antibiotics follow up with PCP or clinic TAL IMAGING TECHNICIAN * Attachments The following attachments cannot be sent through Care Everywhere. * Urinary Tract Infection Adult Nunp-la-Awnx (Algerian) documented in this encounter Progress Notes * Franco Israel RN - 09/28/2024 6:10 PM CST Mirtha Cherry complains of Pt states that she has had her symptoms since this afternoon Urinary Pain This is a new problem. The current episode started today. The problem occurs every urination. The problem has been gradually worsening. The quality of the pain is described as aching. The pain is at a severity of 1/10. The pain is mild. There has been no fever. There is No history of pyelonephritis. Associated symptoms include frequency and urgency. She has tried nothing for the symptoms. The treatment provided no relief. Today's Review of Systems Genitourinary: Positive for dysuria, frequency and urgency. TAL IMAGING TECHNICIAN * Aimee Hand, ROSALIO, METEOROLOGY FACULTY MEMBER - 09/28/2024 6:10 PM CST HPI: Mirtha Cherry is a 59 y.o. female in the [facility] care today for uti symptoms. She was recently on Bactrim (3 days- 09/20/14) for a UTI and states that she was feeling better but is unsure if the infection every completely went away. Her symptoms returned today. She feels like she is swollen and having difficulty urinating. She has has frequency and urgency. The patient is currently undergoing chemo for urothelial cancer Symptoms started this afternoon. Severity of symptoms is moderate Symptoms have not changed Patient is not currently taking over the counter medication for the symptoms. No pertinent Past, family, or social history was noted Patient Active Problem List Diagnosis Closed displaced fracture of proximal phalanx of lesser toe of right foot Other specified peripheral vascular diseases (HCC) Hallux valgus (acquired), right foot Hallux valgus (acquired), left foot Tailor's bunion of left foot GERD (gastroesophageal reflux disease) Dyslipidemia PVD (peripheral vascular disease) (HCC) Left leg swelling Neuritis of left foot Swelling of foot joint, left Pain of left foot Urothelial cancer (HCC) Stage 3 chronic kidney disease (HCC) Conductive hearing loss, bilateral Cognitive impairment Urinary tract infection without hematuria Anemia associated with chemotherapy Chemotherapy-induced thrombocytopenia ROS: Review of Systems Constitutional: Negative for chills and fever. HENT: Negative for ear pain and sore throat. Eyes: Negative for pain and visual disturbance. Respiratory: Negative for cough and shortness of breath. Cardiovascular: Negative for chest pain and palpitations. Gastrointestinal: Negative for abdominal pain and vomiting. Genitourinary: Positive for difficulty urinating and frequency. Negative for dysuria, hematuria andurgency. Musculoskeletal: Negative for arthralgias and back pain. Skin: Negative for color change and rash. Neurological: Negative for seizures and syncope. All other systems reviewed and are negative. PE: BP 114/72 Pulse 94 Temp 97.5 ??F (36.4 ??C) (Temporal) Resp 18 SpO2 98% Physical Exam Constitutional: Appearance: Normal appearance. She is normal weight. Cardiovascular: Rate and Rhythm: Normal rate. Pulmonary: Effort: Pulmonary effort is normal. Skin: General: Skin is warm and dry. Neurological: General: No focal deficit present. Mental Status: She is alert. ASSESSMENT/PLAN: Diagnoses and all orders for this visit: Acute cystitis with hematuria Dysuria - POCT UA AUTOMATED W/O MICRO - CULTURE, URINE Other orders - phenazopyridine (PYRIDIUM) 200 MG Tablet; Take 1 Tablet by mouth 3 times daily for 3 days. - sulfamethoxazole-trimethoprim DS (BACTRIM DS, SEPTRA DS) 800-160 MG Tablet; Take 1 Tablet by mouth 2 times daily for 7 days. Patient Instructions Increase fluids. Void before and after intercourse Wipe from front back Use only unscented products Take all medications as prescribed. If not improved after antibiotics follow up with PCP or clinic Chief complaint and all history documented by ancillary staff were reviewed and verified, with additions or corrections, as appropriate. TAL IMAGING TECHNICIAN documented in this encounter Plan of Treatment Upcoming Encounters Date Type Department Care Team (Late st Contact Info) Description 10/16/2024 10:40 AM DIGITAL IMAGING TECHNICIAN Office Visit [facility] Oncology Services [address] [place] [phone] [place] [address] [place] [address] Discharge Disposition: Discharged to home or Selfcare 10/16/2024 1:20 PM DIGITAL IMAGING TECHNICIAN Clinical Support [facility] Oncology Services [address] [place] [phone] Discharge Disposition: Discharged to home or Selfcare 10/17/2024 1:00 PM DIGITAL IMAGING TECHNICIAN Clinical Support [facility] Oncology Services [address] [place] [phone] Discharge Disposition: Discharged to home or Selfcare 10/23/2024 9:20 AM DIGITAL IMAGING TECHNICIAN Clinical Support [facility] Oncology Services [address] [place] [phone] Discharge Disposition: Discharged to home or Selfcare 10/24/2024 1:00 PM DIGITAL IMAGING TECHNICIAN Clinical [facility] [address] [place] [address] Discharge Disposition: Discharged to home or Selfcare documented as of this encounter Procedures Procedure Name Priority Date/Time Associated Diagnosis Comments CULTURE, URINE Routine 09/28/2024 6:19 PM DIGITAL IMAGING TECHNICIAN Dysuria POCT UA AUTOMATED W/O MICRO Routine 09/28/2024 6:18 PM DIGITAL IMAGING TECHNICIAN Dysuria documented in this encounter Results * CULTURE, URINE (09/28/2024 6:19 PM DIGITAL IMAGING TECHNICIAN) CULTURE RESULTS KLEBSIELLA PNEUMONIAE 10/01/2024 4:04 PM DIGITAL IMAGING TECHNICIAN [facility] Culture URINE SPECIMEN COLLECTION, CLEAN CATCH / Unknown Non-Phlebotomy Collection / Unknown 09/28/2024 6:19 PM DIGITAL IMAGING TECHNICIAN 09/28/2024 6:19 PM DIGITAL IMAGING TECHNICIAN Narrative Organism Antibiotic Method Susceptibility Klebsiella pneumoniae [...] IIB <=20 mcg/ml: Susceptible us Aimee Hand ASH COLLECTOR, METEOROLOGY FACULTY MEMBER MICROBIOLOGY - GEN ERAL ORDERABLES Final Result [facility] [address] [place] [address], [place] * (ABNORMAL) POCT UA AUTOMATED W/O MICRO (09/28/2024 6:18 PM DIGITAL IMAGING TECHNICIAN) POC UA SPECIFIC GRAVITY 1.010 URINE PH [...] URINE CLARITY Hazy Urine 09/28/2024 6:18 PM DIGITAL IMAGING TECHNICIAN [facility] Polina Hand ASH COLLECTOR, METEOROLOGY FACULTY MEMBER POINT OF CARE TEST ING (MANUAL) Final Result documented in this encounter Visit Diagnoses Diagnosis Acute cystitis with hematuria- Primary Acute cystitis Dysuria documented in this encounter Care Teams Tradeshow Worker Relationship Specialty Start Date End Date Karson Forbes MD [address] [place] [address] PCP - General Family Medicine 06/18/24 Levi Carpenter DPM Podiatry 06/07/16 Los Perry MD [address] [phone] Consulting Physician General Surgery 06/20/24 documented as of this encounter
--- OUTSIDE RECORDS SUMMARY | 2024-10-13 03:57 | XMS_ITS | Encounter Summary ---
Author Organization [facility] Care Team Providers Care Operations Management Trainee Name Role Phone Levi Carpenter DPM Unavailable [phone] Karson Forbes MD Primary Care Provider [phone] Los Perry MD Unavailable Encounter Details Date Type Department Care Team (Latest Contact Info) Description 10/03/2024 Travel Social History Tobacco Use Types Packs/Day [...] st Contact Info) Description 10/16/2024 10:40 AM TOOL ROOM GEAR 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 Office Visit [facility] On[facility] Services [address] [place] [phone] Cruzito Orr MD [address] [place] [address] Discharge Disposition: Discharged to home or Selfcare 10/16/2024 1:20 PM TOOL ROOM GEAR 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 Clinical Support [facility] Oncology Services [address] [place] [phone] Discharge Disposition: Discharged to home or Selfcare 10/17/2024 1:00 PM TOOL ROOM GEAR 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 Clinical Support [facility] Oncology Services [address] [place] [phone] Discharge Disposition: Discharged to home or Selfcare 10/23/2024 9:20 AM TOOL ROOM GEAR 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 Clinical Support [facility] Oncology Services [address] [place] [phone] Discharge Disposition: Discharged to home or Selfcare 10/24/2024 1:00 PM TOOL ROOM GEAR 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 Clinical Support [facility] Oncology Services [address] [place] [phone] Discharge Disposition: Discharged to home or Selfcare documented as of this encounter Visit Diagnoses Not on filedocumented in this encounter Care Teams Operations Management Trainee Relationship Specialty Start Date End Date Karson Forbes MD [address] [place] [address] PCP - General Family Medicine 06/18/24 Levi Carpenter DPM Podiatry 06/07/16 Los Perry MD [address] [phone] Consulting Physician General Surgery 06/20/24 documented as of this encounter
--- OUTSIDE RECORDS SUMMARY | 2024-10-13 03:57 | XMS_ITS | Encounter Summary ---
Author Organization [facility] Address [address] [facility] [place] [address] Phone Care Team Providers Care Environment Friendly Landscape Designer Name Role Phone Levi Carpenter Mirlande DPM Unavailable [phone] Karson Forbes MD Primary Care Provider [phone] Los Perry MD Unavailable Reason for Visit * Episode Based Medications (Routine) - Pending Review Specialty Diagnoses / Procedures Referred By Contac t Referred To Contact Diagnoses Urothelial cancer (HCC) Cruzito Orr MD [address] [place] [address] Phone: tel: fax: [facility] Oncology Services [address] [place] [address] Phone: tel: fax: Referral ID Status Reason Start Date Expiration Date V isits Requested Visits Authorized [id number] Pending Review 06/18/2024 1 30 Encounter Details Date Type Department Care Team (Latest Contact Info) Description 10/03/2024 10:00 AM PRODUCTION STAFF WORKER Clinical Support [facility] Oncology Services [address] [place] [phone] Cruzito Orr MD [address] [place] [address] Anemia associated with chemotherapy (Primary Dx) Discharge [...] Comments Blood Pressure 112/71 10/03/2024 10:15 AM PRODUCTION STAFF WORKER Pulse 63 10/03/2024 10:15 AM PRODUCTION STAFF WORKER Temperature 36.3 ??C (97.3 ??F) 10/03/2024 10:[address] Respiratory Rate 16 10/03/2024 10:15 AM PRODUCTION STAFF WORKER Oxygen Saturation 96% 10/03/2024 10:15 AM PRODUCTION STAFF WORKER Inhaled Oxygen Concentration - - Weight - - Height - - Body Mass Index - - documented in this encounter Miscellaneous Notes * Interdisciplinary - Sister Gabbie Boss RN - 10/03/2024 10:00 AM PRODUCTION STAFF WORKER Patient arrived and VS obtained. Medication given as ordered. Patient tolerated well. Site covered with bandaid. Patient left treatment area in stable condition. UCTION STAFF WORKER documented in this encounter Plan of Treatment Upcoming Encounters Date Type Department Care Team (Late st Contact Info) Description 10/16/2024 10:40 AM PRODUCTION STAFF WORKER Office Visit [facility] Oncology Services [address] [place] [phone] Cruzito Orr MD [address] [place] [address] Discharge Disposition: Discharged to home or Selfcare 10/16/2024 1:20 PM PRODUCTION STAFF WORKER Clinical Support [facility] Oncology Services [address] [place] [phone] Discharge Disposition: Discharged to home or Selfcare 10/17/2024 1:00 PM PRODUCTION STAFF WORKER Clinical Support [facility] Oncology Services [address] [place] [phone] Discharge Disposition: Discharged to home or Selfcare 10/23/2024 9:20 AM PRODUCTION STAFF WORKER Clinical Support [facility] Oncology Services [address] [place] [phone] Discharge Disposition: Discharged to home or Selfcare 10/24/2024 1:00 PM PRODUCTION STAFF WORKER Clinical Support [facility] Services [address] [place] [phone] Discharge Disposition: Discharged to home or Selfcare documented as of this encounter Visit Diagnoses Diagnosis 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 documented in this encounter Administered Medications Inactive Administered Medications - up to 3 most recent administrations Medication Order MAR Action Action Date Dose Rate Site epoetin daniel-EPBX (RETACRIT) injection 40,000 Units 40,000 Units, Subcutaneous, ONCE, 1 dose, On Laura 10/03/24 at 1000Indications:Anemia associated with chemotherapy Given 10/03/2024 10:13 AM PRODUCTION STAFF WORKER 40,000 Units Right Lateral Upper Arm documented in this encounter Care Teams Environment Friendly Landscape Designer Relationship Specialty Start Date End Date Karson Forbes [place] [address] PCP - General Family Medicine 06/18/24 Levi Carpenter DPM Podiatry 06/07/16 Los Perry MD [address] [phone] Consulting Physician General Surgery 06/20/24 documented as of this encounter
--- OUTSIDE RECORDS SUMMARY | 2024-10-13 03:57 | XMS_ITS | Encounter Summary ---
Author Organization [facility] Address [address] [place] [address] Phone Care Team Providers Care Assistant Hall Director Name Role Phone Levi Carpenter Mirlande DPM Unavailable [phone] Karson Forbes MD Primary Care Provider [phone] Los Perry MD Unavailable [phone] Encounter Details Date Type Department Care Team (Late st Contact Info) Description 10/01/2024 Telephone [facility] Oncology Services [address] [place] [phone] Cruzito Orr MD [address] [place] [address] Social History Tobacco Use Types Packs/Day Years [...] on file documented as of this encounter Miscellaneous Notes * Telephone Encounter - Whitley Rodriguez RN - 10/01/2024 11:53 AM CST Per MD, no treatment on 10/03 due to platelets, give Retacrit only and recheck in one week. Pt called and made aware. MAL CUTTING 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 documented in this encounter Plan of Treatment Upcoming Encounters Date Type Department Care Team (Late st Contact Info) Description 10/16/2024 10:40 AM THERMAL CUTTING 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 Office Visit [facility] Oncology Services [address] [place] [phone] [place] [address] [place] [address] Discharge Disposition: Discharged to home or Selfcare 10/16/2024 1:20 PM THERMAL CUTTING 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 Clinical Support [facility] Oncology Services [address] [place] [phone] Discharge Disposition: Discharged to home or Selfcare 10/17/2024 1:00 PM THERMAL CUTTING 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 Clinical Support [facility] Oncology Services [address] [place] [phone] Discharge Disposition: Discharged to home or Selfcare 10/23/2024 9:20 AM THERMAL CUTTING 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 Clinical Support [facility] Oncology Services [address] [place] [phone] Discharge Disposition: Discharged to home or Selfcare 10/24/2024 1:00 PM THERMAL CUTTING 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 Clinical Support [facility] Oncology Services [address] [place] [phone] Discharge Disposition: Discharged to home or Selfcare documented as of this encounter Visit Diagnoses Not on filedocumented in this encounter Care Teams Assistant Hall Director Relationship Specialty Start Date End Date Karson [place] [address] PCP - General Family Medicine 06/18/24 Levi Carpenter DPM Podiatry 06/07/16 Los Perry MD [address] [phone] Consulting Physician General Surgery 06/20/24 documented as of this encounter
--- OUTSIDE RECORDS SUMMARY | 2024-10-13 03:57 | XMS_ITS | Encounter Summary ---
Author Organization [facility] Address [address] [place] [address] Phone Care Team Providers Care Medical Detailist Name Role Phone Levi Carpenter DPM Unavailable [phone] Karson Forbes MD Primary Care Provider [phone] Los Perry MD Unavailable Encounter Details Date Type Department Care Team (Late st Contact Info) Description 10/01/2024 Results Follow-Up [facility] [place] [facility] [place] [address] [place] [address] Carloz Gilman, EARL [address] [place] [address] Social History Tobacco Use Types Packs/Day Years [...] st Contact Info) Description 10/16/2024 10:40 AM COMPUTER ENGINEER Office Visit [facility] Oncology Services [address] [place] [phone] [place] [address] [place] [address] Discharge Disposition: Discharged to home or Selfcare 10/16/2024 1:20 PM COMPUTER ENGINEER Clinical Support [facility] Oncology Services [address] [place] [phone] Discharge Disposition: Discharged to home or Selfcare 10/17/2024 1:00 PM COMPUTER ENGINEER Clinical Support [facility] Oncology Services [address] [place] [phone] Discharge Disposition: Discharged to home or Selfcare 10/23/2024 9:20 AM COMPUTER ENGINEER Clinical Support [facility] Oncology Services [address] [place] [phone] Discharge Disposition: Discharged to home or Selfcare 10/24/2024 1:00 PM COMPUTER ENGINEER Clinical Support [facility] Oncology Services [address] [place] [phone] Discharge Disposition: Discharged to home or Selfcare documented as of this encounter Visit Diagnoses Not on filedocumented in this encounter Care Teams Medical Detailist Relationship Specialty Start Date End Date Karson Forbes [place] [address] PCP - General Family Medicine 06/18/24 Levi Carpenter DPM Podiatry 06/07/16 Los Perry MD [address] [phone] Consulting Physician General Surgery 06/20/24 documented as of this encounter
--- OUTSIDE RECORDS SUMMARY | 2024-10-13 03:58 | XMS_ITS | Encounter Summary ---
Author Organization [facility] Address [address] [place] [address] Phone Care Team Providers Care Soil Conservation Technician Name Role Phone Levi Carpenter Mirlande DPM Unavailable [phone] Karson Forbes MD Primary Care Provider [phone] Los Perry MD Unavailable Encounter Details Date Type Department Care Team (Late st Contact Info) Description 08/21/2024 Telephone [facility] Oncology Services [address] [place] [phone] Cruzito Orr MD [address] [place] [address] Social History Tobacco Use Types Packs/Day Years [...] encounter Miscellaneous Notes * Telephone Encounter - Yamilex Pulido RN - 08/21/2024 4:23 PM CST Per MD, placed call to patient and made aware of lab results, no chemo this week, patient to returnnext week. MD thinks low platelets is probably related to the reaction to the antibiotics. Patient made aware of this. Appts changed. UNTS RECEIVABLE EXECUTIVE documented in this encounter Plan of Treatment Upcoming Encounters Date Type Department Care Team (Late st Contact Info) Description 10/16/2024 10:40 AM ACCOUNTS RECEIVABLE EXECUTIVE Office Visit [facility] Oncology Services [address] [place] [phone] Cruzito Orr MD [address] [place] [address] Discharge Disposition: Discharged to home or Selfcare 10/16/2024 1:20 PM ACCOUNTS RECEIVABLE EXECUTIVE Clinical Support [facility] Oncology Services [address] [place] [phone] Discharge Disposition: Discharged to home or Selfcare 10/17/2024 1:00 PM ACCOUNTS RECEIVABLE EXECUTIVE Clinical Support [facility] Oncology Services [address] [place] [address] Discharge Disposition: Discharged to home or Selfcare 10/23/2024 9:20 AM ACCOUNTS RECEIVABLE EXECUTIVE Clinical Support [facility] Oncology Services [address] [place] [address] Discharge Disposition: Discharged to home or Selfcare 10/24/2024 1:00 PM ACCOUNTS RECEIVABLE EXECUTIVE Clinical Support [facility] Oncology Services [address] [place] [address] Discharge Disposition: Discharged to home or Selfcare documented as of this encounter Visit Diagnoses Not on filedocumented in this encounter Care Teams Soil Conservation Technician Relationship Specialty Start Date End Date Karson Forbes MD [address] [place] [address] PCP - General Family Medicine 06/18/24 Levi Carpenter DPM Podiatry 06/07/16 Los Perry MD [address] [phone] Consulting Physician General Surgery 06/20/24 documented as of this encounter
--- OUTSIDE RECORDS SUMMARY | 2024-10-13 03:58 | XMS_ITS | Encounter Summary ---
Author Organization [facility] Care Team Providers Care Professor Of Biblical Studies Name Role Phone Levi Carpenter DPM Unavailable [phone] Karson Forbes MD Primary Care Provider [phone] Los Perry MD Unavailable [phone] Encounter Details Date Type Department Care Team (Latest Contact Info) Description 09/12/2024 Travel Social History Tobacco Use Types Packs/Day [...] st Contact Info) Description 10/16/2024 10:40 AM REAL PROPERTY EVALUATOR Office Visit [facility] Oncology Services [address] [place] [phone] Cruzito Orr MD [address] [place] [address] Discharge Disposition: Discharged to home or Selfcare 10/16/2024 1:20 PM REAL PROPERTY EVALUATOR Clinical Support [facility] Oncology Services [address] [place] [phone] Discharge Disposition: Discharged to home or Selfcare 10/17/2024 1:00 PM REAL PROPERTY EVALUATOR Clinical Support [facility] Oncology Services [address] [place] [phone] Discharge Disposition: Discharged to home or Selfcare 10/23/2024 9:20 AM REAL PROPERTY EVALUATOR Clinical Support [facility] Oncology Services [address] [place] [phone] Discharge Disposition: Discharged to home or Selfcare 10/24/2024 1:00 PM REAL PROPERTY EVALUATOR Clinical Support [facility] Oncology Services [address] [place] [phone] Discharge Disposition: Discharged to home or Selfcare documented as of this encounter Visit Diagnoses Not on filedocumented in this encounter Care Teams Professor Of Biblical Studies Relationship Specialty Start Date End Date Karson Forbes MD [address] [place] [address] PCP - General Family Medicine 06/18/24 Levi Carpenter DPM Podiatry 06/07/16 Los Perry MD [address] [phone] Consulting Physician General Surgery 06/20/24 documented as of this encounter
--- OUTSIDE RECORDS SUMMARY | 2024-10-13 03:58 | XMS_ITS | Encounter Summary ---
Author Organization [facility] Address [address] [place] [address] Phone Care Team Providers Care Passenger Representative Name Role Phone Levi Carpenter DPM Unavailable [phone] Karson Forbes MD Primary Care Provider [phone] Los Perry MD Unavailable [phone] Encounter Details Date Type Department Care Team (Late st Contact Info) Description 09/11/2024 2:20 PM FIBER DRIER OPERATOR Lab [facility] Oncology Services [address] [place] [phone] Cruzito Orr MD [address] [place] [address] Urothelial cancer (HCC) Discharge Disposition: Discharged to [...] on file documented as of this encounter Progress Notes * Lisa Oakes RN - 09/11/2024 2:20 PM CST Pt ambulated into treatment room in stable condition. Port accessed per protocol. Flushed with easeand blood return noted. Labs drawn per MD orders. Port flushed and needle removed. Band aid placed.Pt discharged in stable condition. R DRIER OPERATOR * Rola Sears RN - 09/11/2024 2:[address] Orr notified of critical plt count, orders for 1 unit plt tomorrow. R DRIER OPERATOR documented in this encounter Miscellaneous Notes * Addendum Note - Kelly Orellana - 09/11/2024 2:20 PM CSTAddended by: KELLY ORELLANA on: 09/11/2024 05:34 PM Modules accepted: Orders R DRIER OPERATOR documented in this encounter Plan of Treatment Upcoming Encounters Date Type Department Care Team (Late st Contact Info) Description 10/16/2024 10:40 AM FIBER DRIER OPERATOR Office Visit [facility] Oncology Services [address] [place] [address] Cruzito Orr MD [address] [place] [address] Discharge Disposition: Discharged to home or Selfcare 10/16/2024 1:20 PM FIBER DRIER OPERATOR Clinical Support [facility] Oncology Services [address] [place] [address] Discharge Disposition: Discharged to home or Selfcare 10/17/2024 1:00 PM FIBER DRIER OPERATOR Clinical Support [facility] Oncology Services [address] [place] [address] Discharge Disposition: Discharged to home or Selfcare 10/23/2024 9:20 AM FIBER DRIER OPERATOR Clinical Support [facility] Oncology Services [address] [place] [phone] Discharge Disposition: Discharged to home or Selfcare 10/24/2024 1:00 PM FIBER DRIER OPERATOR Clinical Support [facility] Oncology Services [address] [place] [address] Discharge Disposition: Discharged to home or Selfcare documented as of this encounter Procedures Procedure Name Priority Date/Time Associated Diagnosis Comments ABO/RH (D) RECHECK Routine 09/11/2024 2: 10 PM FIBER DRIER OPERATOR MANUAL DIFFERENTIAL STAT 09/11/2024 2 :10 PM FIBER DRIER OPERATOR Urothelial cancer (HCC) CBC WITH AUTO DIFFERENTIAL STAT 09/11/2024 2:10 PM FIBER DRIER OPERATOR Urothelial cancer (HCC) CMP (COMPREHENSIVE METABOLIC PANEL) STAT 09/11/2024 2:10 PM FIBER DRIER OPERATOR Urothelial cancer (HCC) COMPLETE BLOOD COUNT (CBC) WITH DIFF STAT 09/11/2024 2:10 PM FIBER DRIER OPERATOR Urothelial cancer (HCC) documented in this encounter Results * ABO/RH (D) RECHECK (09/11/2024 2:10 PM FIBER DRIER OPERATOR) ABO TYPING A 09/11/2024 6:46 PM FIBER DRIER OPERATOR [facility] BLOOD [facility] RH Positive 09/11/2024 6:46 PM FIBER DRIER OPERATOR [facility]OD [facility] Blood Venipuncture / Unknown 09/11/2024 2:10 PM FIBER DRIER OPERATOR 09/11/2024 5:33 PM FIBER DRIER OPERATOR Mamie Carlton MD PhD BLOOD BANK ORDERABLES Final Result [facility] BLOOD BANK #[address] [place] [address] * (ABNORMAL) MANUAL DIFFERENTIAL (09/11/2024 2:10 PM FIBER DRIER OPERATOR) NEUTROPHILS % 21.0(L) 47.0 - 73.0 % 09/11/2024 3:27 PM FIBER DRIER OPERATOR [facility] LYMPHOCYTES % 75.0(H) 18.0 - 42.0 % 09/11/2024 3:27 PM FIBER DRIER OPERATOR [facility] MONOCYTES % 4.0 4.0 - 12.0 % 09/11/2024 3:27 PM FIBER DRIER OPERATOR [facility] NEUTROPHILS ABSOLUTE 0.64(L) 1.60 - 7.70 10(3)/mcL 09/11/2024 3:27 PM FIBER DRIER OPERATOR [facility] LYMPHOCYTES ABSOLUTE 2.30 1.30 - 3.20 10(3)/mcL 09/11/2024 3:27 PM FIBER DRIER OPERATOR [facility] MONOCYTES ABSOLUTE 0.12(L) 0.20 - 1.00 10(3)/[facility] 09/11/2024 3:27 PM FIBER DRIER OPERATOR [facility] POIKILOCYTOSIS 1+ 09/11/2024 3:27 PM FIBER DRIER OPERATOR [facility] OVALOCYTES Present 09/11/2024 3:27 PM FIBER DRIER OPERATOR [facility] REACTIVE LYMPHOCYTES 2 09/11/2024 3:27 PM FIBER DRIER OPERATOR [facility] WBC MORPH STATUS Normal 09/11/20 24 3:27 PM FIBER DRIER OPERATOR [facility] PLATELET STATUS Normal 3:27 PM [facility] Blood Sub-Q Port Venou s Access Device (Medi-Port, Implanted Port) / Unknown 09/11/2024 2:10 PM FIBER DRIER OPERATOR 09/11/2024 2:10 PM FIBER DRIER OPERATOR us Cruzito Orr MD HEMATOLOGY ORDERABLES Fi nal Result [facility] [address] [place] [address] * (ABNORMAL) CBC WITH AUTO DIFFERENTIAL (09/11/2024 2:10 PM FIBER DRIER OPERATOR) WBC 3.07(L) 4.00 - 12.00 10(3)/mcL 09/11/2024 3:27 PM [facility] RBC 2.19(L) 3.80 - 5.30 10(6)/mcL 09/11/2024 3:27 PM [facility] HEMOGLOBIN (HGB) 7.5(L) 12.0 - 15.8 g/dL 09/11/2024 3:27 PM [facility] HEMATOCRIT (HCT) 21.6(L) 36.0 - 47.0 % 09/11/2024 3:27 PM [facility] MCV 98.6(H) 82.0 - 96.0 fL 09/11/2024 3:27 PM [facility] MCH 34.2(H) 26.0 - 34.0 pg 09/11/2024 3:27 PM [facility] MCHC 34.7 31.0 - 36.0 g/dL 09/11/2024 3:27 PM [facility] PLATELET COUNT 7(LL) 140 - 440 10(3)/mcL 09/11/2024 3:27 PM [facility] RDW 18.8(H) 11.8 - 15.5 % 09/11/2024 3:27 PM [facility] MPV 11.8 9.7 - 12.4 fL 09/11/2024 3:27 PM [facility] NRBC PER 100 WBC 0 09/11/2024 3:27 PM [facility] RESULTS ARE CONSISTENT WITH PERIPHERAL SMEAR REVIEW Yes 09/11/2024 3:27 PM [facility] Blood Sub-Q Port Venou s Access Device (Medi-Port, Implanted Port) / Unknown 09/11/2024 2:10 PM FIBER DRIER OPERATOR 09/11/2024 2:10 PM FIBER DRIER OPERATOR us Cruzito Orr MD HEMATOLOGY ORDERABLES Fi nal Result [facility] #1 [place] [address] * (ABNORMAL) CMP (COMPREHENSIVE METABOLIC PANEL) (09/11/2024 2:10 PM FIBER DRIER OPERATOR) SODIUM 136 136 - 145 mmol/L 09/11/2024 3:16 PM FIBER DRIER OPERATOR [facility] POTASSIUM 4.0 3.5 - 5.1 mmol/L 09/11/2024 3:16 PM FIBER DRIER OPERATOR [facility] CHLORIDE 107 98 - 107 mmol/L 09/11/2024 3:16 PM [facility] CO2, VENOUS 19(L) 22 - 30 mmol/L 09/11/2024 3:16 PM FIBER DRIER OPERATOR [facility] ANION GAP 14.0 <18.0 mmol/L 09/11/2024 3:16 PM FIBER DRIER OPERATOR [facility] GLUCOSE 143(H) 70 - 99 mg/dL 09/11/2024 3:16 PM FIBER DRIER OPERATOR [facility] BUN 13 10 - 20 mg/dL 09/11/2024 3:16 PM [facility] CREATININE, BLOOD 0.97 0.60 - 1.00 mg/dL 09/11/2024 3:16 PM [facility] BUN/CREATININE RATIO 13 12 - 20 ratio 09/11/2024 3:16 PM [facility] TOTAL PROTEIN 6.3 6.3 - 8.2 g/dL 09/11/2024 3:16 PM FIBER DRIER OPERATOR [facility] ALBUMIN 3.9 3.5 - 5.0 g/dL 09/11/2024 3:16 PM [facility] A/G RATIO 1.6 1.0 - 2.2 09/11/2024 3:16 PM [facility] CALCIUM 9.0 8.7 - 10.5 mg/dL 09/11/2024 3:16 PM [facility] T BILI 0.2 0.2 - 1.2 mg/dL 09/11/2024 3:16 PM FIBER DRIER OPERATOR [facility] SGOT (AST) 21 5 - 34 U/L 09/11/2024 3:16 PM FIBER DRIER OPERATOR [facility] SGPT (ALT) 30 0 - 55 U/L 09/11/2024 3:16 PM FIBER DRIER OPERATOR [facility] ALKALINE PHOSPHATASE 79 40 - 150 U/L 09/11/2024 3:16 PM [facility] IS THE PATIENT REQUIRED TO BE FASTING? No 09/11/2024 3:16 PM FIBER DRIER OPERATOR [facility] GFR, ESTIMATED >60 >=60 09/11/2024 3:16 PM [facility] Comment: Creatinine Clearance is the preferred criteria for selecting drug dose adjustments in renally impaired patients. ??The GFR is provided as additional pertinent clinical information. GFR is reported in mL/min/1.73 sq m. Calculation based on the Chronic Kidney Disease Epidemiology Collaboration (CKD- EPI) equation refit without adjustment for race. GFR, EST. >60 >=60 024 3:16 PM FIBER DRIER OPERATOR [facility] GFR, EST. NONAFRICAN 59(L) >=60 09/11/2024 3:16 PM [facility] Blood Sub-Q Port Venou s Access Device (Medi-Port, Implanted Port) / Unknown 09/11/2024 2:10 PM FIBER DRIER OPERATOR 09/11/2024 2:10 PM FIBER DRIER OPERATOR us Cruzito Orr MD CHEMISTRY ORDERABLES Fin al Result [facility] #1 [place] [address] documented in this encounter Visit Diagnoses Diagnosis Urothelial cancer (HCC) Malignant neoplasm of other specified sites of urinary organs documented in this encounter Administered Medications Inactive Administered Medications - up to 3 most recent administrations Medication Order MAR Action Action Date Dose Rate Site Heparin Na (Pork) Lock Flsh PF SOLN 50 Units 50 Units, Intravenous, PRN, Starting on Mon09/11/24 at 1411, Until Mon09/11/24 at 1512, Line CareIndications:Urothelial cancer (HCC) Given 09/11/2024 2:18 PM FIBER DRIER OPERATOR 50 Units documented in this encounter Care Teams Passenger Representative Relationship Specialty Start Date End Date Karson Forbes MD [address] [place] [address] PCP - General Family Medicine 06/18/24 Levi Carpenter DPM Podiatry 06/07/16 Los Perry MD #[address] [phone] Consulting Physician General Surgery 06/20/24 documented as of this encounter
--- OUTSIDE RECORDS SUMMARY | 2024-10-13 03:58 | XMS_ITS | Encounter Summary ---
Author Organization [facility] Care Team Providers Care Television Cameraman Name Role Phone Levi Carpenter DPM Unavailable [phone] Karson Forbes MD Primary Care Provider [phone] Los Perry MD Unavailable Encounter Details Date Type Department Care Team (Latest Contact Info) Description 09/16/2024 Travel Social History Tobacco Use Types Packs/Day [...] st Contact Info) Description 10/16/2024 10:40 AM GEOLOGICAL TECHNICIAN Office Visit [facility] Oncology Services [address] [place] [phone] Cruzito Orr MD [address] [place] [address] Discharge Disposition: Discharged to home or Selfcare 10/16/2024 1:20 PM GEOLOGICAL TECHNICIAN Clinical Support [facility] Oncology Services [address] [place] [phone] Discharge Disposition: Discharged to home or Selfcare 10/17/2024 1:00 PM GEOLOGICAL TECHNICIAN Clinical Support [facility] Oncology Services [address] [place] [phone] Discharge Disposition: Discharged to home or Selfcare 10/23/2024 9:20 AM GEOLOGICAL TECHNICIAN Clinical Support [facility] Oncology Services [address] [place] [phone] Discharge Disposition: Discharged to home or Selfcare 10/24/2024 1:00 PM GEOLOGICAL TECHNICIAN Clinical Support [facility] Oncology Services [address] [place] [phone] Discharge Disposition: Discharged to home or Selfcare documented as of this encounter Visit Diagnoses Not on filedocumented in this encounter Care Teams Television Cameraman Relationship Specialty Start Date End Date Karson Forbes MD [address] [place] [address] PCP - General Family Medicine 06/18/24 Levi Carpenter DPM Podiatry 06/07/16 Los Perry MD #[address] [phone] Consulting Physician General Surgery 06/20/24 documented as of this encounter
--- OUTSIDE RECORDS SUMMARY | 2024-10-13 03:58 | XMS_ITS | Encounter Summary ---
Author Organization [facility] Address [address] [facility] [place] [address] Phone Care Team Providers Care Trust Vault Custodian Name Role Phone Levi Carpenter DPM Unavailable [phone] Karson Forbes MD Primary Care Provider [phone] Los Perry MD Unavailable Encounter Details Date Type Department Care Team (Late st Contact Info) Description 08/21/2024 2:00 PM BUSINESS TECHNOLOGY ARCHITECT Clinical Support [facility] Oncology Services [address] [place] [phone] Cruzito Orr MD [address] [place] [address] Urothelial cancer (HCC) Discharge Disposition: Discharged to [...] - Inhaled Oxygen Concentration - - Weight 65.1 kg (143 lb 8 oz) 08/21/2024 2:25 PM BUSINESS TECHNOLOGY ARCHITECT Height - - Body Mass Index 27.11 08/18/2024 9:49 PM BUSINESS TECHNOLOGY ARCHITECT documented in this encounter Miscellaneous Notes * Interdisciplinary - Yamilex Pulido RN - 08/21/2024 2:00 PM CST Late entry 1425-Presents for scheduled lab draw. Labs drawn from port as ordered, tolerated well. Left infusion room in stable condition NESS TECHNOLOGY ARCHITECT documented in this encounter Plan of Treatment Upcoming Encounters Date Type Department Care Team (Late st Contact Info) Description 10/16/2024 10:40 AM BUSINESS TECHNOLOGY ARCHITECT Office Visit [facility] Oncology Services [address] [place] [phone] [place] [address] [place] [address] Discharge Disposition: Discharged to home or Selfcare 10/16/2024 1:20 PM BUSINESS TECHNOLOGY ARCHITECT Clinical Support [facility] Oncology Services [address] [place] [phone] Discharge Disposition: Discharged to home or Selfcare 10/17/2024 1:00 PM BUSINESS TECHNOLOGY ARCHITECT Clinical Support [facility] Oncology Services [address] [place] [phone] Discharge Disposition: Discharged to home or Selfcare 10/23/2024 9:20 AM BUSINESS TECHNOLOGY ARCHITECT Clinical Support [facility] Oncology Services [address] [place] [phone] Discharge Disposition: Discharged to home or Selfcare 10/24/2024 1:00 PM BUSINESS TECHNOLOGY ARCHITECT Clinical Support [facility] Oncology Services [address] [place] [address] Discharge Disposition: Discharged to home or Selfcare documented as of this encounter Procedures Procedure Name Priority Date/Time Associated Diagnosis Comments MANUAL DIFFERENTIAL STAT 08/21/2024 2 :20 PM BUSINESS TECHNOLOGY ARCHITECT Urothelial cancer (HCC) CBC WITH AUTO DIFFERENTIAL STAT 08/21/2024 2:20 PM BUSINESS TECHNOLOGY ARCHITECT Urothelial cancer (HCC) CMP (COMPREHENSIVE METABOLIC PANEL) STAT 08/21/2024 2:20 PM BUSINESS TECHNOLOGY ARCHITECT Urothelial cancer (HCC) COMPLETE BLOOD COUNT (CBC) WITH DIFF STAT 08/21/2024 2:20 PM BUSINESS TECHNOLOGY ARCHITECT Urothelial cancer (HCC) documented in this encounter Results * (ABNORMAL) MANUAL DIFFERENTIAL (08/21/2024 2:20 PM BUSINESS TECHNOLOGY ARCHITECT) BANDS % 1.0 % 08/21/2024 3:34 PM BUSINESS TECHNOLOGY ARCHITECT [facility] NEUTROPHILS % 45.0(L) 47.0 - 73.0 % 08/21/2024 3:34 PM BUSINESS TECHNOLOGY ARCHITECT [facility] LYMPHOCYTES % 43.0(H) 18.0 - 42.0 % 08/21/2024 3:34 PM BUSINESS TECHNOLOGY ARCHITECT [facility] MONOCYTES % 7.0 4.0 - 12.0 % 08/21/2024 3:34 PM BUSINESS TECHNOLOGY ARCHITECT [facility] EOSINOPHILS % 1.0 0.0 - 5.0 % 08/21/2024 3:34 PM BUSINESS TECHNOLOGY ARCHITECT [facility] METAMYELOCYTES % 1.0(H) <=0.0 % 08/21/20 3:34 PM BUSINESS TECHNOLOGY ARCHITECT [facility] MYELOCYTES % 2.0(H) <=0.0 % 08/21/2024 3:34 PM BUSINESS TECHNOLOGY ARCHITECT [facility] NEUTROPHILS ABSOLUTE 1.31(L) 1.60 - 7.70 10(3)/mcL 08/21/2024 3:34 PM BUSINESS TECHNOLOGY ARCHITECT [facility] LYMPHOCYTES ABSOLUTE 1.22(L) 1.30 - 3.20 10(3)/[facility] 08/21/2024 3:34 PM BUSINESS TECHNOLOGY ARCHITECT [facility] MONOCYTES ABSOLUTE 0.20 0.20 - 1.00 10(3)/mcL 08/21/2024 3:34 PM BUSINESS TECHNOLOGY ARCHITECT [facility] EOSINOPHILS ABSOLUTE 0.03 0.00 - 0.40 10(3)/[facility] 08/21/2024 3:34 PM BUSINESS TECHNOLOGY ARCHITECT [facility] NRBC PER 100 WBC 1 08/21/20 24 3:34 PM BUSINESS TECHNOLOGY ARCHITECT [facility] RBC MORPHOLOGY CONSISTENT WITH INDICES Yes 08/21/2024 3:34 PM BUSINESS TECHNOLOGY ARCHITECT [facility] WBC MORPH STATUS Normal 08/21/20 3:34 PM BUSINESS TECHNOLOGY ARCHITECT [facility] PLATELET STATUS Normal 3:34 PM [facility] Blood Sub-Q Port Venou s Access Device (Medi-Port, Implanted Port) / Unknown 08/21/2024 2:20 PM BUSINESS TECHNOLOGY ARCHITECT 08/21/2024 2:21 PM BUSINESS TECHNOLOGY ARCHITECT CruzitoYenni Orr MD HEMATOLOGY ORDERABLES Fi nal Result [facility] [address] [place] [address] * (ABNORMAL) CBC WITH AUTO DIFFERENTIAL (08/21/2024 2:20 PM BUSINESS TECHNOLOGY ARCHITECT) WBC 2.84(L) 4.00 - 12.00 10(3)/[facility] 08/21/2024 3:34 PM BUSINESS TECHNOLOGY ARCHITECT [facility] RBC 2.72(L) 3.80 - 5.30 10(6)/[facility] 08/21/2024 3:34 PM BUSINESS TECHNOLOGY ARCHITECT [facility] HEMOGLOBIN (HGB) 8.6(L) 12.0 - 15.8 g/dL 08/21/2024 3:34 PM BUSINESS TECHNOLOGY ARCHITECT [facility] HEMATOCRIT (HCT) 25.4(L) 36.0 - 47.0 % 08/21/2024 3:34 PM BUSINESS TECHNOLOGY ARCHITECT [facility] MCV 93.4 82.0 - 96.0 fL 08/21/2024 3:34 PM BUSINESS TECHNOLOGY ARCHITECT [facility] MCH 31.6 26.0 - 34.0 pg 08/21/2024 3:34 PM BUSINESS TECHNOLOGY ARCHITECT [facility] MCHC 33.9 31.0 - 36.0 g/dL 08/21/2024 3:34 PM BUSINESS TECHNOLOGY ARCHITECT [facility] PLATELET COUNT 32(L) 140 - 440 10(3)/mcL 08/21/2024 3:34 PM BUSINESS TECHNOLOGY ARCHITECT [facility] RDW 15.5 11.8 - 15.5 % 08/21/2024 3:34 PM BUSINESS TECHNOLOGY ARCHITECT [facility] MPV 11.9 9.7 - 12.4 fL 08/21/2024 3:34 PM [facility] NRBC PER 100 WBC 0 08/21/2024 3:34 PM BUSINESS TECHNOLOGY ARCHITECT [facility] RESULTS ARE CONSISTENT WITH PERIPHERAL SMEAR REVIEW Yes 08/21/2024 3:34 PM [facility] Blood Sub-Q Port Venou s Access Device (Medi-Port, Implanted Port) / Unknown 08/21/2024 2:20 PM BUSINESS TECHNOLOGY ARCHITECT 08/21/2024 2:21 PM BUSINESS TECHNOLOGY ARCHITECT Cruzito Orr MD HEMATOLOGY ORDERABLES Fi nal Result [facility] [address] [place] [address] * (ABNORMAL) CMP (COMPREHENSIVE METABOLIC PANEL) (08/21/2024 2:20 PM BUSINESS TECHNOLOGY ARCHITECT) SODIUM 133(L) 136 - 145 mmol/L 08/21/2024 3:00 PM BUSINESS TECHNOLOGY ARCHITECT [facility] POTASSIUM 4.8 3.5 - 5.1 mmol/L 08/21/2024 3:00 PM [facility] CHLORIDE 103 98 - 107 mmol/L 08/21/2024 3:00 PM [facility] CO2, VENOUS 21(L) 22 - 30 mmol/L 08/21/2024 3:00 PM [facility] ANION GAP 13.8 <18.0 mmol/L 08/21/2024 3:00 PM [facility] GLUCOSE 120(H) 70 - 99 mg/dL 08/21/2024 3:00 PM [facility] BUN 20 10 - 20 mg/dL 08/21/2024 3:00 PM [facility] CREATININE, BLOOD 1.31(H) 0.60 - 1.00 mg/dL 08/21/2024 3:00 PM [facility] BUN/CREATININE RATIO 15 12 - 20 ratio 08/21/2024 3:00 PM [facility] TOTAL PROTEIN 6.6 6.3 - 8.2 g/dL 08/21/2024 3:00 PM [facility] ALBUMIN 4.1 3.5 - 5.0 g/dL 08/21/2024 3:00 PM [facility] A/G RATIO 1.6 1.0 - 2.2 08/21/2024 3:00 PM [facility] CALCIUM 9.1 8.7 - 10.5 mg/dL 08/21/2024 3:00 PM [facility] T BILI 0.3 0.2 - 1.2 mg/dL 08/21/2024 3:00 PM [facility] SGOT (AST) 20 5 - 34 U/L 08/21/2024 3:00 PM [facility] SGPT (ALT) 27 0 - 55 U/L 08/21/2024 3:00 PM [facility] ALKALINE PHOSPHATASE 85 40 - 150 U/L 08/21/2024 3:00 PM [facility] IS THE PATIENT REQUIRED TO BE FASTING? No 08/21/2024 3:00 PM BUSINESS TECHNOLOGY ARCHITECT [facility] GFR, ESTIMATED 47(L) >=60 08/21/2024 3:00 PM BUSINESS TECHNOLOGY ARCHITECT [facility] Comment: Creatinine Clearance is the preferred criteria for selecting drug dose adjustments in renally impaired patients. ??The GFR is provided as additional pertinent clinical information. GFR is reported in mL/min/1.73 sq m. Calculation based on the Chronic Kidney Disease Epidemiology Collaboration (CKD- EPI) equation refit without adjustment for race. GFR, EST. 50(L) >=60 024 3:00 PM BUSINESS TECHNOLOGY ARCHITECT [facility] GFR, EST. NONAFRICAN 41(L) >=60 08/21/2024 3:00 PM BUSINESS TECHNOLOGY ARCHITECT [facility] Blood Sub-Q Port Venou s Access Device (Medi-Port, Implanted Port) / Unknown 08/21/2024 2:20 PM BUSINESS TECHNOLOGY ARCHITECT 08/21/2024 2:21 PM BUSINESS TECHNOLOGY ARCHITECT Critical access hospital Ernestine Orr MD CHEMISTRY ORDERABLES [facility] al Result [facility] [place] [address] documented in this encounter Visit Diagnoses Diagnosis Urothelial cancer (HCC) Malignant neoplasm of other specified sites of urinary organs documented in this encounter Administered Medications Inactive Administered Medications - up to 3 most recent administrations Medication Order MAR Action Action Date Dose Rate Site Heparin Na (Pork) Lock Flsh PF SOLN 50 Units 50 Units, Intravenous, PRN, Starting on Mon08/21/24 at 1404, Until Mon08/21/24 at 1909, Line CareIndications:Urothelial cancer (HCC) Given 08/21/2024 2:21 PM BUSINESS TECHNOLOGY ARCHITECT 50 Units documented in this encounter Care Teams Trust Vault Custodian Relationship Specialty Start Date End [place] [address] PCP - General Family Medicine 06/18/24 Levi Carpenter DPM Podiatry 06/07/16 Los Perry MD [address] [phone] Consulting Physician General Surgery 06/20/24 documented as of this encounter
--- OUTSIDE RECORDS SUMMARY | 2024-10-13 03:58 | XMS_ITS | Encounter Summary ---
Author Organization [facility] Address [address] [place] [address] Phone Care Team Providers Care Strap Folding Machine Operator Name Role Phone Levi Carpenter Mirlande DPM Unavailable Karson Forbes MD Primary Care Provider [phone] Los Perry MD Unavailable Encounter Details Date Type Department Care Team (Late st Contact Info) Description 08/30/2024 Telephone [facility] Oncology Services [address] [place] [phone] Cruzito Orr MD [address] [place] [address] Social History Tobacco Use Types Packs/Day Years [...] encounter Miscellaneous Notes * Telephone Encounter - Chauncey Osborn RN - 08/30/2024 2:17 PM CST Chemo follow up made. Pt is doing well, will call if any changes occur. IC HEALTH POLICY ANALYST documented in this encounter Plan of Treatment Upcoming Encounters Date Type Department Care Team (Late st Contact Info) Description 10/16/2024 10:40 AM PUBLIC HEALTH POLICY ANALYST Office Visit [facility] Oncology Services [address] [place] [phone] Cruzito Orr MD [address] [place] [address] Discharge Disposition: Discharged to home or Selfcare 10/16/2024 1:20 PM PUBLIC HEALTH POLICY ANALYST Clinical Support [facility] Oncology Services [address] [place] [phone] Discharge Disposition: Discharged to home or Selfcare 10/17/2024 1:00 PM PUBLIC HEALTH POLICY ANALYST Clinical Support [facility] Oncology Services [address] [place] [phone] Discharge Disposition: Discharged to home or Selfcare 10/23/2024 9:20 AM PUBLIC HEALTH POLICY ANALYST Clinical Support [facility] Oncology Services [address] [place] [phone] Discharge Disposition: Discharged to home or Selfcare 10/24/2024 1:00 PM PUBLIC HEALTH POLICY ANALYST Clinical Support [facility] Oncology Services [address] [place] [phone] Discharge Disposition: Discharged to home or Selfcare documented as of this encounter Visit Diagnoses Not on filedocumented in this encounter Care Teams Strap Folding Machine Operator Relationship Specialty Start Date End Date Karson [place] [address] PCP - General Family Medicine 06/18/24 Levi Carpenter DPM Podiatry 06/07/16 Los Perry MD [address] [phone] Consulting Physician General Surgery 06/20/24 documented as of this encounter
--- OUTSIDE RECORDS SUMMARY | 2024-10-13 03:58 | XMS_ITS | Encounter Summary ---
Author Organization [facility] Address [address] [facility] [place] [address] Phone Care Team Providers Care Process Camera Operator Name Role Phone Pauline, Levi Nogueira DPM Unavailable [phone] Karson Forbes MD Primary Care Provider [phone] Los Perry MD Unavailable Reason for Visit * Episode Based Medications (Routine) - Authorized Specialty Diagnoses / Procedures Referred By Contac t Referred To Contact Diagnoses Anemia associated with chemotherapy Cruzito Orr MD [address] [place] [address] Phone: tel: fax: [facility] Oncology Services [address] [place] [address] Phone: tel: fax: Referral ID Status Reason Start Date Expiration Date V isits Requested Visits Authorized [id number] Authorized 08/28/2024 1 30 Encounter Details Date Type Department Care Team (Latest Contact Info) Description 09/11/2024 3:00 PM OTHER SPORTS COACH OR INSTRUCTOR Clinical Support [facility] Oncology Services [address] [place] [phone] Cruzito Orr MD [address] [place] [address] Anemia associated with chemotherapy (Primary Dx) Discharge [...] as of this encounter Miscellaneous Notes * Interdisciplinary - Lisa Oakes RN - 09/11/2024 3:00 PM CST Pt ambulated into treatment room in stable condition. Labs drawn for type and screen. Pt to return tomorrow for Platelets. Pt states understanding. Intended effects and side effects of medications reviewed with pt. Pt medicated per MD orders. Band aid to site. Pt tolerated well. Pt discharged in stable condition. R SPORTS COACH OR INSTRUCTOR R SPORTS COACH OR INSTRUCTOR documented in this encounter Plan of Treatment Upcoming Encounters Date Type Department Care Team (Late st Contact Info) Description 10/16/2024 10:40 AM OTHER SPORTS COACH OR INSTRUCTOR [facility] [address] [place] [phone] Cruzito Orr MD [address] [place] [address] Discharge Disposition: Discharged to home or Selfcare 10/16/2024 1:20 PM OTHER SPORTS COACH OR INSTRUCTOR Clinical Support [facility] Oncology Services [address] [place] [address] Discharge Disposition: Discharged to home or Selfcare 10/17/2024 1:00 PM OTHER SPORTS COACH OR INSTRUCTOR Clinical Support [facility] Oncology Services [address] [place] [address] Discharge Disposition: Discharged to home or Selfcare 10/23/2024 9:20 AM OTHER SPORTS COACH OR INSTRUCTOR Clinical Support [facility] Oncology Services [address] [place] [address] Discharge Disposition: Discharged to home or Selfcare 10/24/2024 1:00 PM OTHER SPORTS COACH OR INSTRUCTOR Clinical Support [facility] Oncology Services [address] [place] [address] Discharge Disposition: Discharged to home or Selfcare documented as of this encounter Procedures Procedure Name Priority Date/Time Associated Diagnosis Comments TYPE & SCREEN (CROSSMATCH CONVERTIBLE) Routine 09/11/2024 3:25 PM OTHER SPORTS COACH OR INSTRUCTOR documented in this encounter Results * TYPE & SCREEN (CROSSMATCH CONVERTIBLE) (09/11/2024 3:25 PM OTHER SPORTS COACH OR INSTRUCTOR) ABO TYPING A 09/11/2024 5:15 PM OTHER SPORTS COACH OR INSTRUCTOR [facility] RH Positive 09/11/2024 5:15 PM OTHER SPORTS COACH OR INSTRUCTOR [facility] ABSC Negative 09/11/2024 5:15 PM OTHER SPORTS COACH OR INSTRUCTOR [facility] Blood Venipuncture / Unknown 09/11/2024 3:25 PM OTHER SPORTS COACH OR INSTRUCTOR 09/11/2024 3:29 PM OTHER SPORTS COACH OR INSTRUCTOR us Cruzito Orr MD BLOOD BANK ORDERABLES Ed ited Result - Final [facility] [address] [place] [address] documented in this encounter Visit Diagnoses Diagnosis 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 documented in this encounter Administered Medications Inactive Administered Medications - up to 3 most recent administrations Medication Order MAR Action Action Date Dose Rate Site epoetin daniel-EPBX (RETACRIT) injection 40,000 Units 40,000 Units, Subcutaneous, ONCE, 1 dose, On Mon09/11/24 at 1530Indications:Anemia associated with chemotherapy Given 09/11/2024 3:25 PM OTHER SPORTS COACH OR INSTRUCTOR 40,000 Units Right Lateral Upper Arm documented in this encounter Care Teams Process Camera Operator Relationship Specialty Start Date End Date Karson Forbes MD [address] [place] [address] PCP - General Family Medicine 06/18/24 Levi Carpenter DPM Podiatry 06/07/16 Los Perry MD [address] [phone] Consulting Physician General Surgery 06/20/24 documented as of this encounter
--- OUTSIDE RECORDS SUMMARY | 2024-10-13 03:58 | XMS_ITS | Encounter Summary ---
Author Organization [facility] Care Team Providers Care Director Post Name Role Phone Levi Carpenter DPM Unavailable [phone] Karson Forbes MD Primary Care Provider [phone] Los Perry MD Unavailable Encounter Details Date Type Department Care Team (Latest Contact Info) Description 08/21/2024 Travel Social History Tobacco Use Types Packs/Day [...] st Contact Info) Description 10/16/2024 10:40 AM HEADLIGHT ASSEMBLER Office Visit [facility] Oncology Services [address] [place] [phone] Cruzito Orr MD [address] [place] [address] Discharge Disposition: Discharged to home or Selfcare 10/16/2024 1:20 PM HEADLIGHT ASSEMBLER Clinical Support [facility] Oncology Services [address] [place] [phone] Discharge Disposition: Discharged to home or Selfcare 10/17/2024 1:00 PM HEADLIGHT ASSEMBLER Clinical Support [facility] Oncology Services [address] [place] [phone] Discharge Disposition: Discharged to home or Selfcare 10/23/2024 9:20 AM HEADLIGHT ASSEMBLER Clinical Support [facility] Oncology Services [address] [place] [phone] Discharge Disposition: Discharged to home or Selfcare 10/24/2024 1:00 PM HEADLIGHT ASSEMBLER Clinical Support [facility] Oncology Services [address] [place] [phone] Discharge Disposition: Discharged to home or Selfcare documented as of this encounter Visit Diagnoses Not on filedocumented in this encounter Care Teams Director Post Relationship Specialty Start Date End Date Karson Forbes MD [address] [place] [address] PCP - General Family Medicine 06/18/24 Levi Carpenter DPM Podiatry 06/07/16 Los Perry MD [address] [phone] Consulting Physician General Surgery 06/20/24 documented as of this encounter
--- OUTSIDE RECORDS SUMMARY | 2024-10-13 03:58 | XMS_ITS | Encounter Summary ---
Author Organization [facility] Address [address] [facility] [place] [address] Phone Care Team Providers Care Ferry Terminal Agent Name Role Phone Pauline, Levi Nogueira DPM Unavailable [phone] Karson Forbes MD Primary Care Provider [phone] Los Perry MD Unavailable Reason for Visit * Episode Based Medications (Routine) - Authorized Specialty Diagnoses / Procedures Referred By Contac t Referred To Contact Diagnoses Anemia associated with chemotherapy Cruzito Orr MD [address] [place] [address] Phone: tel: fax: [facility] Oncology Services [address] [place] [address] Phone: tel: fax: Referral ID Status Reason Start Date Expiration Date V isits Requested Visits Authorized [id number] Authorized 08/28/2024 1 30 Encounter Details Date Type Department Care Team (Latest Contact Info) Description 09/18/2024 1:30 PM ROUNDING 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 Clinical Support [facility] Oncology Services [address] [place] [phone] Cruzito rOr MD [address] [place] [address] Anemia associated with chemotherapy (Primary Dx) Discharge [...] this encounter Miscellaneous Notes * Interdisciplinary - Chauncey Osborn RN - 09/18/2024 1:30 PM CST Pt was seen in infusion. DING 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 documented in this encounter Plan of Treatment Upcoming Encounters Date Type Department Care Team (Late st Contact Info) Description 10/16/2024 10:40 AM ROUNDING 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 [facility] [address] [place] [phone] Cruzito Orr MD [address] [place] [address] Discharge Disposition: Discharged to home or Selfcare 10/16/2024 1:20 PM ROUNDING 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 [facility] [address] [place] [phone] Discharge Disposition: Discharged to home or Selfcare 10/17/2024 1:00 PM ROUNDING 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 [facility] [address] [place] [phone] Discharge Disposition: Discharged to home or Selfcare 10/23/2024 9:20 AM ROUNDING 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 Clinical Support [facility] Oncology Services [address] [place] [phone] Discharge Disposition: Discharged to home or Selfcare 10/24/2024 1:00 PM ROUNDING 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 Clinical Support [facility] Oncology Services [address] [place] [address] Discharge Disposition: Discharged to home or Selfcare documented as of this encounter Visit Diagnoses Diagnosis 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 documented in this encounter Administered Medications Inactive Administered Medications - up to 3 most recent administrations Medication Order MAR Action Action Date Dose Rate Site epoetin daniel-EPBX (RETACRIT) injection 40,000 Units 40,000 Units, Subcutaneous, ONCE, 1 dose, On Mon09/18/24 at 1400Indications:Anemia associated with chemotherapy Given 09/18/2024 1:55 PM ROUNDING 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 40,000 Units Right Lateral Upper Arm documented in this encounter Care Teams Ferry Terminal Agent Relationship Specialty Start Date End Date Karson Forbes MD [address] [place] [address] PCP - General Family Medicine 06/18/24 Levi Carpenter DPM Podiatry 06/07/16 Los Perry MD [address] [phone] Consulting Physician General Surgery 06/20/24 documented as of this encounter
--- OUTSIDE RECORDS SUMMARY | 2024-10-13 03:58 | XMS_ITS | Encounter Summary ---
Author Organization [facility] Address [address] [facility] [place] [address] Phone Care Team Providers Care Barrel Cleaner Name Role Phone Levi Carpenter Mirlande DPLolly Unavailable [phone] Karson Forbes MD Primary Care Provider [phone] Los Perry MD Unavailable Reason for Referral * Radiology Services (Routine) - Closed Specialty Diagnoses / Procedures Referred By Contac t Referred To Contact Radiology Diagnoses Urothelial cancer (HCC) Procedures CT CHEST ABDOMEN AND PELVIS W CONTRAST Cruzito Orr MD [address] [place] [address] Phone: tel: fax: Referral ID Status Reason Start Date Expiration Date Visits Re quested Visits Authorized [id number] Closed 09/11/2024 1 1 L WORKER Reason for Visit * Reason Comments Follow-up Encounter Details Date Type Department Care Team (Latest Contact Info) Description 09/11/2024 2:20 PM SPOOL WORKER Office Visit [facility] Oncology Services [address] [place] [address] Cruzito Orr MD [address] [place] [address] Urothelial cancer (HCC) (Primary Dx); Anemia associated [...] Sign Reading Time Taken Comments Blood Pressure 125/69 09/11/2024 2:22 PM SPOOL WORKER Pulse 89 09/11/2024 2:22 PM SPOOL WORKER Temperature 36.6 ??C (97.8 ??F) 09/11/2024 2:22 PM CS T Respiratory Rate 20 09/11/2024 2:22 PM SPOOL WORKER Oxygen Saturation 100% 09/11/2024 2:22 PM SPOOL WORKER Inhaled Oxygen Concentration - - Weight 65.7 kg (144 lb 12.8 oz) 09/11/2024 2:22 PM SPOOL WORKER Height 154.9 cm (5' 1 ) 09/11/2024 2:22 PM SPOOL WORKER Body Mass Index 27.36 09/11/2024 2:22 PM SPOOL WORKER documented in this encounter Progress Notes * Barbara Reed - 09/11/2024 2:20 PM CST Outpatient Hem/Onc Progress Note PROGRESS NOTE Mirtha Cherry is a 59 y.o. female seen today for follow up of invasive high- grade papillary urothelial carcinoma. Patient requests to be called Johanna. Johanna is here today ambulating without support to review continued treatment related side effects. Johanna started Procrit 11550 units weekly injection onC3D1 to improve anemia. Patient started chemotherapy with Carbo AUC5 plus Gemcitabine 1000 mg/m2 every 21 days on 07/04/24. During treatment approximately 10 minutes after infusing Emend patient experienced reaction prompting infusion to be stopped. Patient received C2D1 on 08/01/24 with C2D8 on 08/08/24. She attempted antibiotic course with Bactrim BID for 7 days after positive UA on 08/12/24. She was switched to Levaquin after contacting office with potential reaction prior to developing new symptoms. Patient was seen at [facility] ED on 08/18/24 for some difficulty breathing and fatigue/lethargy. Patient was found to be pancytopenic with URI prompting provider to start Prednisone 20 mg po daily for 15 days to improve inflammation. Johanna reports tolerating C3 better with less nausea and fatigue occurring. Patient reports nausea controlled with Prochlorperazine 10 mg every 6 hours as needed. Deedenies dysuria, urgency, or flank pain. She reports developing bloody nose last night that was ableto be curbed at home. Reports waking this morning with blood clot present bilateral nostrils. Patient reports minimal bleeding after cleaning out her nostrils from clots. Johanna reports blowing clots out of her nose since onset of nose bleed. Patient denies persistent bleeding or other episodes of bleeding. Johanna reports sensitivity along the gum line without bleeding while brushing teeth. Patient denies debriding the mouth after meals with oral rinse. Patient denies sores or ulceration along the gum line or the lips. ECOG PERFORMANCE STATUS: DIAGNOSIS/TREATMENT HISTORY: Invasive high-grade papillary urothelial carcinoma She reports this started roughly 2-3 years ago when she developed gross hematuria in September 2021.Patient reports undergoing workup with Dr. Avitia with negative clinical findings. Johanna reports no hematuria occurring for roughly 12 months before experiencing another episode of hematuria in September2022. Patient denies seeking medical evaluation after this episode due to lack of findings during previous workup. Johanna denies hematuria occurring in 2022. She reports developing gross hematuria occurring persistently in February 2024 prompting her to contact urologist for repeat evaluation. Johanna completed CT 03/11/24 with 2.7 cm left renal pelvis mass without adjacent lymphadenopathy. She reports attemptto obtain CT guided biopsy were futile. Patient underwent OR Uteroscope on 04/18/[address] Houston at [facility] which revealed papillary lesions in the mid upper and lower pole of the left renal pelvis. On May 17, 2024 she underwent an R0 left nephro ureterectomy revealing a 2.3 cm high-grade papillary urothelial carcinoma arising in the renal pelvis and invading the parenchyma, pathologic T3 N0=Stage III with lymphovascular invasion and associated CIS. She returned to [facility] on05/21/24 with complaints of SOB after discharge from hospital on 05/20/24. Patient was admitted for pneumonia with discharge home on 05/23/24. --07/02/24 port-a-cath placement --07/04/24 C1D1 CarboAUC5 CD1 with Gemcitabine CD1/8 every 21 days for a total of 4 planned cycles if patient tolerates. --07/11/24 C1D8 Cemcitabine 1000 mg/m2 --07/24/24 ANC 1.18 --07/31/24 ANC 1.39 --08/01/24 C2D1 CarboAUC5 with Gemcitabine 1000 mg/m2 --08/08/24 C2D8 with reduced dose of Gemcitabine at 750 mg/m2 --08/28/24 C3D1 Gemcitabine 800 mg/m2 pl;us CarboAUC5 plus Procrit 50267 units to stimulate RBC production --09/04/24 C3D8 Gemcitabine 1000 mg/m2 with Procrit 58859 unit injection Reviewed patients past medical, surgical, social, and family history. Outpatient Medications Marked as Taking for the 09/11/24 encounter (Office Visit) with Cruzito Orr MD Medication Sig Dispense Refill atorvastatin (LIPITOR) 80 MG Tablet Take 40 mg by mouth daily. clopidogrel (PLAVIX) 75 MG Tablet Take 75 mg by mouth daily. Instructed to hold for 5 days prior tosurgery on 07/02/2024 Coenzyme Q10 400 MG Capsule Take by mouth daily. metoprolol tartrate (LOPRESSOR) 50 MG Tablet Take 50 mg by mouth every morning. Multiple Vitamin (MULTIVITAMIN PO) Take by mouth. Instructed to hold for 3 days prior to surgery on07/02/2024 Probiotic Product (PROBIOTIC DAILY PO) Take by mouth. Allergies as of 09/11/2024 - Reviewed 09/11/2024 Allergen Reaction Noted Iodine Itching 05/10/2018 Adhesive tape Itching, Unknown, and Other (see Comments) 06/07/2016 Betadine [povidone iodine] Itching 02/17/2017 Codeine Nausea and Unknown 06/07/2016 Emend [fosaprepitant dimeglumine] Anaphylaxis 07/04/2024 Macrobid [nitrofurantoin] Hives 08/18/2024 REVIEW OF SYSTEMS Review of Systems Constitutional: Positive for malaise/fatigue. Negative for weight loss. HENT: Dry mouth for 3 days after treatment Gastrointestinal: Positive for abdominal pain (mild, related to constipation and bowel gas) and constipation (mild, improved with stool softener). Negative for diarrhea and nausea. Neurological: Negative for weakness. Endo/Heme/Allergies: Bruises/bleeds easily (large bruise on the left hip from unknown origin and older bruise present on the left elbow). Physical Exam Physical Exam PAIN ASSESSMENT: no verbal pain complaints today. DATA: Lab Results Component Value Date WBC 4.07 09/03/2024 RBC 2.66 (L) 09/03/2024 HEMOGLOBIN 8.9 (L) 09/03/2024 MCV 98.5 (H) 09/03/2024 MCH 33.5 09/03/2024 MCHC 34.0 09/03/2024 PLATELETCNT 134 (L) 09/03/2024 RDW 19.9 (H) 09/03/2024 LYMPHOCYTES 48.2 (H) 09/03/2024 RELEOS 0.7 09/03/2024 RELBAS 0.2 09/03/2024 ANC 2.00 09/03/2024 MONOCYTES 0.07 (L) 09/03/2024 EOSINOPHILS 0.03 09/03/2024 BASOPHILS 0.01 09/03/2024 Lab Results Component Value Date SODIUM 137 09/03/2024 POTASSIUM 4.1 09/03/2024 CHLORIDE 108 (H) 09/03/2024 ANIONGAP 13.1 09/03/2024 GLUCOSE 96 09/03/2024 BUN 18 09/03/2024 CREATININE 1.09 (H) 09/03/2024 TOTALPROTEIN 6.0 (L) 09/03/2024 ALBUMIN 3.8 09/03/2024 CALCIUM 8.6 (L) 09/03/2024 SGPTALT 49 09/03/2024 ALKALINEPHO 65 09/03/2024 06/17/24 LABS OSH: CBC WBC9.0 HGB14.0 [id number] CMP K+5.1 Cr1.11 Ca+10.0 T.bili0.3 Alk Afgg579 ALT25 AST18 05/17/24 SURGICAL PATHOLOGY REPORT OSH: Kidney and ureter, left, hand assisted laparoscopic nephroureterectomy: - Invasive high-grade papillary urothelial carcinoma, 2.3 cm, arising in the renal pelvis and extending into the renal parenchyma - Surgical margins are negative for carcinoma - No evidence of metastatic carcinoma in one lymph node - See cancer case summary MICROSCOPIC DESCRIPTION: Sections of the left nephroureterectomy specimen demonstrate high-grade papillary urothelial carcinoma arising in the renal pelvis and extending into the renal parenchyma with lymphovascular invasion. The ureteral and vascular margins are negative for carcinoma. Carcinoma in situ involves other sections of the ureter. Carcinoma is confined to the kidney and ureter. One lymph node is identified and not involved by carcinoma. Report name: URETER, RENAL PELVIS: Resection SPECIMEN Procedure: Nephroureterectomy Specimen Laterality: Left TUMOR Tumor Site: Ureter, Renal pelvis, Kidney Tumor Size: Greatest Dimension (Centimeters) - 2.3 cm Histologic Type: Urothelial carcinoma, invasive (conventional) Histologic Grade: High-grade Tumor Extent: Invades beyond muscularis into periureteral fat or peripelvic fat or renal parenchyma Lymphatic and / or Vascular Invasion: Present Tumor Configuration: Papillary MARGINS Margin Status for Invasive Carcinoma: All margins negative for invasive carcinoma Closest Margin(s) to Invasive Carcinoma: Vascular Distance from Invasive Carcinoma to Closest Margin: 39 mm Margin Status for Carcinoma in Situ / Noninvasive Papillary Urothelial Carcinoma: All margins negative for carcinoma in situ / noninvasive papillary urothelial carcinoma REGIONAL LYMPH NODES Regional Lymph Node Status: All regional lymph nodes negative for tumor Number of Lymph Nodes Examined: 1 pTNM CLASSIFICATION (AJCC 8th Edition) Reporting of pT, pN, and (when applicable) pM categories is based on information available to the pathologist at the time the report is issued. As per the AJCC (Chapter 1, 8th Ed.) it is the managingphysician's responsibility to establish the final pathologic stage based upon all pertinent information, including but potentially not limited to this pathology report. pT Category: pT3 pN Category: pN0 ADDITIONAL FINDINGS Associated Epithelial Lesions: Ureteral Carcinoma in situ Pathologic Findings in Ipsilateral Nonneoplastic Renal Tissue: Inflammation (type) - Chronic 12/26/17 SURGICAL PATHOLOGY REPORT: FINAL DIAGNOSIS Breast, right, total mastectomy: - Lobular carcinoma in situ with a pleomorphic lobular carcinoma in situ component (see description). - Radial scars, multiple small. - Fibrocystic changes. - Microcalcifications. - Biopsy site reaction, two foci of (history of previous core biopsies, [id number]). Lymph nodes, right axillary sentinel, excision: - No evidence of malignancy (0/2). Breast, left, total mastectomy: - Fibrocystic changes. Lymph node, left axillary sentinel, excision: - No evidence of malignancy (one lymph node examined). Skin and subcutaneous tissue, tissue submitted as left breast (specimen E), excision: - No pathologic diagnosis. DIAGNOSTIC IMAGING STUDIES: 05/23/24 FL CYSTOGRAM OSH: IMPRESSION: 7 mm focus of irregularity density projecting near the left ureterovesicular junction on the steep oblique images. This may represent a small focus of contained leak. No free spillage of contrast into the pelvis is seen. 04/08/24 CT CHEST LUNG SCREENING OSH: IMPRESSION: Redemonstration of scattered pulmonary nodules measuring up to 0.4 cm, grossly similar to the prior study. No definite evidence of a new suspicious pulmonary nodule. Mild emphysematous changes of lungs with scattered mild subsegmental atelectasis and scarring. Scattered mild bronchial wall thickening, which is likely related to mild chronic bronchitis/bronchiolitis. Small amount of mucous debris noted in the right main bronchus extending into the right lower lobe, which is likely related to mucous secretions. Evidence of prior granulomatous disease. Lung-RADS category 2: Benign appearance or behavior. Assessment: Invasive high-grade urothelial carcinoma arising in the left renal pelvis and extending into the renal parenchyma, pT3N0, stage III, s/p left nephrectomy 2. Current smoker 3. PVD with history of stent placement in the iliac arteries Plan: 2. Continue treatment with CarboAUC5 CD1 with Gemcitabine CD1/8 every 21 days for a total of 4 planned cycles if patient tolerates. Will attempt to give patient Cinvanti after CD8 as most nausea occurring when given treatment without ths intervention. She can continue Prochlorperazine 10 mg every 6hours as needed for nausea. 3. Debride the mouth with warm water and baking soda rinse after meals to prevent oral irritation from developing while on treatment. Patient will monitor for oral lesions/ulcerations developing after treatment warranting intervention to resolve. 4. Continue OTC Stool softener and Gas-X as needed for treatment related constipation and bowel gas. 6. Discussed discontinuing cigarette tobacco use to improve breathing and improve treatment efficacy. Patient was offered smoking cessation aides and information regarding [facility] facilitated smoking cessation classes. 7. Encouraged Johanna to eat small meals frequently throughout the day to maintain weight and nutrition. Discussed using supplemental nutritional shakes as needed to maintain intake. 8. Patient will have repeat CT C/A/P every 3-6 months to monitor for evidence of disease. She will have cystoscopy completed every 3 months for direct visualization of bladder for lesions. 9. Continue to follow with PCP and other specialists for management of chronic medical condition. 10. Obtain [employer] panel to evaluate for genetic mutation driving her malignancy given familyhistory. Discussed need for genetic testing to be completed and results to be used in treatment planning. Patient verbalized understanding need and agreeable to have the testing completed. Order willbe sent by office. Follow up in 4 weeks The patient was given an opportunity to ask questions, and all questions answered to patient's satisfaction. Patient verbalizes understanding of the plan as outlined above. Documentation was brought forward from my note on 08/13/24.Everything pasted or copy/forwarded was performed again at this visit and changes were made as appropriate.The documentation for this visit was completed by Barbara Reed acting as a scribe for Cruzito Orr MD. 09/11/2024, 2:21 PM SPOOL WORKER L WORKER * Cruzito Orr MD - 09/11/2024 2:20 PM CST Outpatient Hem/Onc Progress Note PROGRESS NOTE Mirtha Cherry is a 59 y.o. female seen today for follow up of invasive high- grade papillary urothelial carcinoma. Patient requests to be called Johanna. Johanna is here today ambulating without support to review continued treatment related side effects. Johanna started Procrit 40658 units weekly injection onC3D1 to improve anemia. Patient started chemotherapy with Carbo AUC5 plus Gemcitabine 1000 mg/m2 every 21 days on 07/04/24. During treatment approximately 10 minutes after infusing Emend patient experienced reaction prompting infusion to be stopped. Patient received C2D1 on 08/01/24 with C2D8 on 08/08/24. She attempted antibiotic course with Bactrim BID for 7 days after positive UA on 08/12/24. She was switched to Levaquin after contacting office with potential reaction prior to developing new symptoms. Patient was seen at [facility] ED on 08/18/24 for some difficulty breathing and fatigue/lethargy. Patient was found to be pancytopenic with URI prompting provider to start Prednisone 20 mg po daily for 15 days to improve inflammation. Johanna reports tolerating C3 better with less nausea and fatigue occurring. Patient reports nausea controlled with Prochlorperazine 10 mg every 6 hours as needed. Deedenies dysuria, urgency, or flank pain. She reports developing bloody nose last night that was ableto be curbed at home. Reports waking this morning with blood clot present bilateral nostrils. Patient reports minimal bleeding after cleaning out her nostrils from clots. Johanna reports blowing clots out of her nose since onset of nose bleed. Patient denies persistent bleeding or other episodes of bleeding. Johanna reports sensitivity along the gum line without bleeding while brushing teeth. Patient denies debriding the mouth after meals with oral rinse. Patient denies sores or ulceration along the gum line or the lips. ECOG PERFORMANCE STATUS:1 DIAGNOSIS/TREATMENT HISTORY: Invasive high-grade papillary urothelial carcinoma She reports this started roughly 2-3 years ago when she developed gross hematuria in September 2021.Patient reports undergoing workup with Dr. Avitia with negative clinical findings. Johanna reports no hematuria occurring for roughly 12 months before experiencing another episode of hematuria in September2022. Patient denies seeking medical evaluation after this episode due to lack of findings during previous workup. Johanna denies hematuria occurring in 2022. She reports developing gross hematuria occurring persistently in February 2024 prompting her to contact urologist for repeat evaluation. Johanna completed CT 03/11/24 with 2.7 cm left renal pelvis mass without adjacent lymphadenopathy. She reports attemptto obtain CT guided biopsy were futile. Patient underwent OR Uteroscope on 04/18/[address] Houston at [facility] which revealed papillary lesions in the mid upper and lower pole of the left renal pelvis. On May 17, 2024 she underwent an R0 left nephro ureterectomy revealing a 2.3 cm high-grade papillary urothelial carcinoma arising in the renal pelvis and invading the parenchyma, pathologic T3 N0=Stage III with lymphovascular invasion and associated CIS. She returned to [facility] on05/21/24 with complaints of SOB after discharge from hospital on 05/20/24. Patient was admitted for pneumonia with discharge home on 05/23/24. --07/02/24 port-a-cath placement --07/04/24 C1D1 CarboAUC5 CD1 with Gemcitabine CD1/8 every 21 days for a total of 4 planned cycles if patient tolerates. --07/11/24 C1D8 gemcitabine 1000 mg/m2 --07/24/24 ANC 1.18 --07/31/24 ANC 1.39 --08/01/24 C2D1 CarboAUC5 with Gemcitabine 1000 mg/m2 --08/08/24 C2D8 with reduced dose of Gemcitabine at 750 mg/m2 --08/28/24 C3D1 Gemcitabine 800 mg/m2 pl;us CarboAUC5 plus Procrit 79790 units to stimulate RBC production --09/04/24 C3D8 Gemcitabine 1000 mg/m2 with Procrit 62396 unit injection Reviewed patients past medical, surgical, social, and family history. Outpatient Medications Marked as Taking for the 09/11/24 encounter (Office Visit) with Cruzito Orr MD Medication Sig Dispense Refill atorvastatin (LIPITOR) 80 MG Tablet Take 40 mg by mouth daily. clopidogrel (PLAVIX) 75 MG Tablet Take 75 mg by mouth daily. Instructed to hold for 5 days prior tosurgery on 07/02/2024 Coenzyme Q10 400 MG Capsule Take by mouth daily. metoprolol tartrate (LOPRESSOR) 50 MG Tablet Take 50 mg by mouth every morning. Multiple Vitamin (MULTIVITAMIN PO) Take by mouth. Instructed to hold for 3 days prior to surgery on07/02/2024 Probiotic Product (PROBIOTIC DAILY PO) Take by mouth. Allergies as of 09/11/2024 - Reviewed 09/11/2024 Allergen Reaction Noted Iodine Itching 05/10/2018 Adhesive tape Itching, Unknown, and Other (see Comments) 06/07/2016 Betadine [povidone iodine] Itching 02/17/2017 Codeine Nausea and Unknown 06/07/2016 Emend [fosaprepitant dimeglumine] Anaphylaxis 07/04/2024 Macrobid [nitrofurantoin] Hives 08/18/2024 REVIEW OF SYSTEMS Review of Systems Constitutional: Positive for malaise/fatigue. Negative for weight loss. HENT: Dry mouth for 3 days after treatment Gastrointestinal: Positive for abdominal pain (mild, related to constipation and bowel gas) and constipation (mild, improved with stool softener). Negative for diarrhea and nausea. Neurological: Negative for weakness. Endo/Heme/Allergies: Bruises/bleeds easily (large bruise on the left hip from unknown origin and older bruise present on the left elbow). Physical Exam Physical Exam NAD No pallor or icterus No edema PAIN ASSESSMENT: no verbal pain complaints today. DATA: Lab Results Component Value Date WBC 4.07 09/03/2024 RBC 2.66 (L) 09/03/2024 HEMOGLOBIN 8.9 (L) 09/03/2024 MCV 98.5 (H) 09/03/2024 MCH 33.5 09/03/2024 MCHC 34.0 09/03/2024 PLATELETCNT 134 (L) 09/03/2024 RDW 19.9 (H) 09/03/2024 LYMPHOCYTES 48.2 (H) 09/03/2024 RELEOS 0.7 09/03/2024 RELBAS 0.2 09/03/2024 ANC 2.00 09/03/2024 MONOCYTES 0.07 (L) 09/03/2024 EOSINOPHILS 0.03 09/03/2024 BASOPHILS 0.01 09/03/2024 Lab Results Component Value Date SODIUM 137 09/03/2024 POTASSIUM 4.1 09/03/2024 CHLORIDE 108 (H) 09/03/2024 ANIONGAP 13.1 09/03/2024 GLUCOSE 96 09/03/2024 BUN 18 09/03/2024 CREATININE 1.09 (H) 09/03/2024 TOTALPROTEIN 6.0 (L) 09/03/2024 ALBUMIN 3.8 09/03/2024 CALCIUM 8.6 (L) 09/03/2024 SGPTALT 49 09/03/2024 ALKALINEPHO 65 09/03/2024 06/17/24 LABS OSH: CBC WBC9.0 HGB14.0 [id number] CMP K+5.1 Cr1.11 Ca+10.0 T.bili0.3 Alk [id number] ALT25 AST18 05/17/24 SURGICAL PATHOLOGY REPORT OSH: Kidney and ureter, left, hand assisted laparoscopic nephroureterectomy: - Invasive high-grade papillary urothelial carcinoma, 2.3 cm, arising in the renal pelvis and extending into the renal parenchyma - Surgical margins are negative for carcinoma - No evidence of metastatic carcinoma in one lymph node - See cancer case summary MICROSCOPIC DESCRIPTION: Sections of the left nephroureterectomy specimen demonstrate high-grade papillary urothelial carcinoma arising in the renal pelvis and extending into the renal parenchyma with lymphovascular invasion. The ureteral and vascular margins are negative for carcinoma. Carcinoma in situ involves other sections of the ureter. Carcinoma is confined to the kidney and ureter. One lymph node is identified and not involved by carcinoma. Report name: URETER, RENAL PELVIS: Resection SPECIMEN Procedure: Nephroureterectomy Specimen Laterality: Left TUMOR Tumor Site: Ureter, Renal pelvis, Kidney Tumor Size: Greatest Dimension (Centimeters) - 2.3 cm Histologic Type: Urothelial carcinoma, invasive (conventional) Histologic Grade: High-grade Tumor Extent: Invades beyond muscularis into periureteral fat or peripelvic fat or renal parenchyma Lymphatic and / or Vascular Invasion: Present Tumor Configuration: Papillary MARGINS Margin Status for Invasive Carcinoma: All margins negative for invasive carcinoma Closest Margin(s) to Invasive Carcinoma: Vascular Distance from Invasive Carcinoma to Closest Margin: 39 mm Margin Status for Carcinoma in Situ / Noninvasive Papillary Urothelial Carcinoma: All margins negative for carcinoma in situ / noninvasive papillary urothelial carcinoma REGIONAL LYMPH NODES Regional Lymph Node Status: All regional lymph nodes negative for tumor Number of Lymph Nodes Examined: 1 pTNM CLASSIFICATION (AJCC 8th Edition) Reporting of pT, pN, and (when applicable) pM categories is based on information available to the pathologist at the time the report is issued. As per the AJCC (Chapter 1, 8th Ed.) it is the managingphysician's responsibility to establish the final pathologic stage based upon all pertinent information, including but potentially not limited to this pathology report. pT Category: pT3 pN Category: pN0 ADDITIONAL FINDINGS Associated Epithelial Lesions: Ureteral Carcinoma in situ Pathologic Findings in Ipsilateral Nonneoplastic Renal Tissue: Inflammation (type) - Chronic 12/26/17 SURGICAL PATHOLOGY REPORT: FINAL DIAGNOSIS Breast, right, total mastectomy: - Lobular carcinoma in situ with a pleomorphic lobular carcinoma in situ component (see description). - Radial scars, multiple small. - Fibrocystic changes. - Microcalcifications. - Biopsy site reaction, two foci of (history of previous core biopsies, [id number]). Lymph nodes, right axillary sentinel, excision: - No evidence of malignancy (0/2). Breast, left, total mastectomy: - Fibrocystic changes. Lymph node, left axillary sentinel, excision: - No evidence of malignancy (one lymph node examined). Skin and subcutaneous tissue, tissue submitted as left breast (specimen E), excision: - No pathologic diagnosis. DIAGNOSTIC IMAGING STUDIES: 05/23/24 FL CYSTOGRAM OSH: IMPRESSION: 7 mm focus of irregularity density projecting near the left ureterovesicular junction on the steep oblique images. This may represent a small focus of contained leak. No free spillage of contrast into the pelvis is seen. 04/08/24 CT CHEST LUNG SCREENING OSH: IMPRESSION: Redemonstration of scattered pulmonary nodules measuring up to 0.4 cm, grossly similar to the prior study. No definite evidence of a new suspicious pulmonary nodule. Mild emphysematous changes of lungs with scattered mild subsegmental atelectasis and scarring. Scattered mild bronchial wall thickening, which is likely related to mild chronic bronchitis/bronchiolitis. Small amount of mucous debris noted in the right main bronchus extending into the right lower lobe, which is likely related to mucous secretions. Evidence of prior granulomatous disease. Lung-RADS category 2: Benign appearance or behavior. Assessment: 1.Invasive high-grade urothelial carcinoma arising in the left renal pelvis and extending into the renal parenchyma, pT3N0, stage III, s/p left nephrectomy 2. Current smoker 3. PVD with history of stent placement in the iliac arteries 4. Anemia and thrombocytopenia secondary to chemotherapy 5. Allergy to IV contrast Plan: 1. Reviewed patient's recent clinical symptoms and lab trend over the last several weeks. She did have significant thrombocytopenia after day 8 of cycle 2 chemotherapy. Part of that could be secondary to concurrent UTI and antibiotics etcetera. Her CBC recovered enough to receive cycle 3 of chemo. Noted to have worsening anemia secondary to chemo. Continue Procrit 08288 units weekly for hemoglobin less than or equal to 10 grams/deciliter. Check CBC today. Transfuse if needed PLT less than 10K or HGB less than 7 2. Continue treatment with CarboAUC5 CD1 with Gemcitabine 1000 mg per m2 IV CD1/8 every 21 days fora total of 4 planned cycles if patient tolerates. Will continue Cinvanti after CD8 as most nausea occurring when given treatment without ths intervention. She can continue Prochlorperazine 10 mg every 6 hours as needed for nausea. Obtain CT chest abdomen pelvis with contrast after completing 4 cycles of chemotherapy. She will be given oral Benadryl and prednisone prior to contrast administration to prevent reaction 3. Debride the mouth with warm water and baking soda rinse after meals to prevent oral irritation from developing while on treatment. Patient will monitor for oral lesions/ulcerations developing after treatment warranting intervention to resolve. 4. Continue OTC Stool softener and Gas-X as needed for treatment related constipation and bowel gas. 6. Discussed discontinuing cigarette tobacco use to improve breathing and improve treatment efficacy. Patient was offered smoking cessation aides and information regarding [facility] facilitated smoking cessation classes. 7. Encouraged Johanna to eat small meals frequently throughout the day to maintain weight and nutrition. Discussed using supplemental nutritional shakes as needed to maintain intake. 8. Patient will have repeat CT C/A/P every 3-6 months to monitor for evidence of disease. She will have cystoscopy completed every 3 months for direct visualization of bladder for lesions. 9. Continue to follow with PCP and other specialists for management of chronic medical condition. 10. Obtain [employer] panel to evaluate for genetic mutation driving her malignancy given familyhistory. Discussed need for genetic testing to be completed and results to be used in treatment planning. Patient verbalized understanding need and agreeable to have the testing completed. Order willbe sent by office. Follow up in [address] prior The patient was given an opportunity to ask questions, and all questions answered to patient's satisfaction. Patient verbalizes understanding of the plan as outlined above. Documentation was brought forward from my note on 08/13/24.Everything pasted or copy/forwarded was performed again at this visit and changes were made as appropriate.The documentation for this visit was completed by Barbara Reed acting as a scribe for Cruzito Orr MD. 09/11/2024, 2:51 PM SPOOL WORKER The documentation recorded by the scribe was completed while in the exam room with me and the patient. The documentation accurately reflects the service I personally performed and the decisions made by me. I have confirmed and edited the documentation as necessary. Cruzito Orr MD 09/11/2024, 2:52 PM SPOOL WORKER L WORKER documented in this encounter Miscellaneous Notes * Interdisciplinary - Ceci Allan - 09/11/2024 2:20 PM CST The patient reports nosebleeds for the past two nights. Reports no other physical complaints duringtoday's follow up. No headaches or sinus congestion. Pain score is 0. States she set up a humidifier to help with the nosebleeds. L WORKER * Interdisciplinary - Ceci Allan - 09/11/2024 2:20 PM CST Patient escorted to the infusion area for injection. She will follow up in [address] scan prior. Treatment to continue tomorrow. L WORKER documented in this encounter Plan of Treatment Upcoming Encounters Date Type Department Care Team (Late st Contact Info) Description 10/16/2024 10:40 AM SPOOL WORKER Office Visit [facility] Oncology Services [address] [place] [address] Cruzito Orr MD [address] [place] [address] Discharge Disposition: Discharged to home or Selfcare 10/16/2024 1:20 PM SPOOL WORKER Clinical Support [facility] Oncology Services [address] [place] [address] Discharge Disposition: Discharged to home or Selfcare 10/17/2024 1:00 PM SPOOL WORKER Clinical Support [facility] Oncology Services [address] [place] [phone] Discharge Disposition: Discharged to home or Selfcare 10/23/2024 9:20 AM SPOOL WORKER Clinical Support [facility] Oncology Services [address] [place] [address] Discharge Disposition: Discharged to home or Selfcare 10/24/2024 1:00 PM SPOOL WORKER Clinical Support [facility] [address] [place] [address] Discharge Disposition: Discharged to home or Selfcare documented as of this encounter Results * CT CHEST ABDOMEN AND PELVIS W CONTRAST (10/08/2024 8:10 AM SPOOL WORKER) Anatomical Region Laterality Modality Chest, Abdomen, Pelvis N/A Computed Tomography 10/11/2024 4:39 PM SPOOL WORKER Impressions 10/11/2024 4:42 PM SPOOL WORKER IMPRESSION: No evidence of metastatic disease in the chest, abdomen, or pelvis. Bilateral adrenal nodules which are likely adenomas. Narrative 10/11/2024 4:42 PM SPOOL WORKER EXAM DESCRIPTION: CT CHEST ABDOMEN AND PELVIS [...] PM T: ??10/11/2024 4:39 PM Report ID: [id number] Reading Location: ??[id number] Procedure Note Paulino Angel MD - 10/11/2024 [...] Paulino Angel M.D. KN: DAVID Report ID: [id number] Reading Location: [place] [address] IMPRESSION: No evidence of metastatic disease in the chest, abdomen, or pelvis. Bilateral adrenal nodules which are likely adenomas. [facility] IMG CT ORDERABLES Final Result documented in this encounter Visit Diagnoses Diagnosis Urothelial cancer (HCC)- Primary Malignant neoplasm of other specified sites of urinary organs 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 Stage 3 chronic kidney disease, unspecified whether stage 3a or 3b CKD (HCC) Gastroesophageal reflux disease without esophagitis Esophageal reflux Chemotherapy-induced thrombocytopenia Other secondary thrombocytopenia Urothelial cancer (HCC) Malignant neoplasm of other specified sites of urinary organs documented in this encounter Care Teams Barrel Cleaner Relationship Specialty Start Date End Date Karson Forbes MD [address] [place] [address] PCP - General Family Medicine 06/18/24 Levi Carpenter DPM Podiatry 06/07/16 Los Perry MD [address] [address] Consulting Physician General Surgery 06/20/24 documented as of this encounter
--- OUTSIDE RECORDS SUMMARY | 2024-10-13 03:58 | XMS_ITS | Encounter Summary ---
Author Organization [facility] Care Team Providers Care Document Preparer Microfilming Name Role Phone Levi Carpenter DPM Unavailable [phone] Karson Forbes MD Primary Care Provider [phone] Los Perry MD Unavailable [phone] Encounter Details Date Type Department Care Team (Latest Contact Info) Description 08/28/2024 Travel Social History Tobacco Use Types Packs/Day [...] st Contact Info) Description 10/16/2024 10:40 AM AUTO TRANSPORT DRIVER Office Visit [facility] Oncology Services [address] [place] [phone] Cruzito Orr MD [address] [place] [address] Discharge Disposition: Discharged to home or Selfcare 10/16/2024 1:20 PM AUTO TRANSPORT DRIVER Clinical Support [facility] Oncology Services [address] [place] [phone] Discharge Disposition: Discharged to home or Selfcare 10/17/2024 1:00 PM AUTO TRANSPORT DRIVER Clinical Support [facility] Oncology Services [address] [place] [phone] Discharge Disposition: Discharged to home or Selfcare 10/23/2024 9:20 AM AUTO TRANSPORT DRIVER Clinical Support [facility] Oncology Services [address] [place] [phone] Discharge Disposition: Discharged to home or Selfcare 10/24/2024 1:00 PM AUTO TRANSPORT DRIVER Clinical Support [facility] Oncology Services [address] [place] [phone] Discharge Disposition: Discharged to home or Selfcare documented as of this encounter Visit Diagnoses Not on filedocumented in this encounter Care Teams Document Preparer Microfilming Relationship Specialty Start Date End Date Karson Forbes MD [address] [place] [address] PCP - General Family Medicine 06/18/24 Levi Carpenter DPM Podiatry 06/07/16 Los Perry MD [address] [phone] Consulting Physician General Surgery 06/20/24 documented as of this encounter
--- OUTSIDE RECORDS SUMMARY | 2024-10-13 03:58 | XMS_ITS | Encounter Summary ---
Author Organization [facility] HealthCare Address [address] [facility] [place] [address] Phone Care Team Providers Care Rehab Specialist Name Role Phone Pauline, Levi Nogueira DPM Unavailable [phone] Karson Forbes MD Primary Care Provider [phone] Los Perry MD Unavailable Reason for Visit * Episode Based Medications (Routine) - Authorized Specialty Diagnoses / Procedures Referred By Contac t Referred To Contact Diagnoses Anemia associated with chemotherapy Cruzito Orr MD [address] [place] [address] Phone: tel: fax: [facility] Oncology Services [address] [place] [address] Phone: tel: fax: Referral ID Status Reason Start Date Expiration Date V isits Requested Visits Authorized [id number] Authorized 08/28/2024 1 30 Encounter Details Date Type Department Care Team (Latest Contact Info) Description 09/18/2024 1:30 PM IV THERAPY NURSE Clinical Support [facility] Oncology Services [address] [place] [address] Cruzito Orr MD [address] [place] [address] Anemia associated with chemotherapy (Primary Dx); Urothelial [...] RN - 09/18/2024 1:30 PM CST Pt ambulated to treatment room. Pt states she's had some clots while blowing her nose again. Retacrit given. Will recheck CBC and Myriad per MD orders. Labs drawn from port x1 attempt. Flushed easilywith NS and with good blood return. Heparin flushed per protocol. Port deaccessed and site covered with bandaid. Pt tolerated well. Labs reviewed, no blood products needed at this time. Pt left in stable condition. Per Kirby recheck lab on Monday for possible transfusion. THERAPY NURSE documented in this encounter Plan of Treatment Upcoming Encounters Date Type Department Care Team (Late st Contact Info) Description 10/16/2024 10:40 AM IV THERAPY NURSE Office Visit [facility] Oncology Services [address] [place] [address] Cruzito Orr MD [address] [place] [address] Discharge Disposition: Discharged to home or Selfcare 10/16/2024 1:20 PM IV THERAPY NURSE Clinical Support [facility] Oncology Services [address] [place] [address] Discharge Disposition: Discharged to home or Selfcare 10/17/2024 1:00 PM IV THERAPY NURSE Clinical Support [facility] Oncology Services [address] [place] [address] Discharge Disposition: Discharged to home or Selfcare 10/23/2024 9:20 AM IV THERAPY NURSE Clinical Support [facility] Oncology Services [address] [place] [phone] Discharge Disposition: Discharged to home or Selfcare 10/24/2024 1:00 PM IV THERAPY NURSE Clinical Support [facility] Oncology Services [address] [place] [address] Discharge Disposition: Discharged to home or Selfcare documented as of this encounter Procedures Procedure Name Priority Date/Time Associated Diagnosis Comments MANUAL DIFFERENTIAL STAT 09/18/2024 1 :54 PM IV THERAPY NURSE Urothelial cancer (HCC) CBC WITH AUTO DIFFERENTIAL STAT 09/18/2024 1:54 PM IV THERAPY NURSE Urothelial cancer (HCC) COMPLETE BLOOD COUNT (CBC) WITH DIFF STAT 09/18/2024 1:54 PM IV THERAPY NURSE Urothelial cancer (HCC) documented in this encounter Results * (ABNORMAL) MANUAL DIFFERENTIAL (09/18/2024 1:54 PM IV THERAPY NURSE) BANDS % 1.0 % 09/18/2024 3:02 PM IV THERAPY NURSE [facility] NEUTROPHILS % 34.0(L) 47.0 - 73.0 % 09/18/2024 3:02 PM IV THERAPY NURSE [facility] LYMPHOCYTES % 61.0(H) 18.0 - 42.0 % 09/18/2024 3:02 PM [facility] MONOC[facility] % 2.0(L) 4.0 - 12.0 % 09/18/2024 3:02 PM IV THERAPY NURSE [facility] EOSINOPHILS % 1.0 0.0 - 5.0 % 09/18/2024 3:02 PM IV THERAPY NURSE [facility] METAMYELOCYTES % 1.0(H) <=0.0 % 09/18/20 3:02 PM [facility] NEUTROPHILS ABSOLUTE 1.20(L) 1.60 - 7.70 10(3)/[facility] 09/18/2024 3:02 PM IV THERAPY NURSE [facility] LYMPHOCYTES ABSOLUTE 2.10 1.30 - 3.20 10(3)/[facility] 09/18/2024 3:02 PM [facility] MONOCYTES ABSOLUTE 0.07(L) 0.20 - 1.00 10(3)/[facility] 09/18/2024 3:02 PM [facility] EOSINOPHILS ABSOLUTE 0.03 0.00 - 0.40 10(3)/[facility] 09/18/2024 3:02 PM [facility] NRBC PER 100 WBC 2 09/18/20 3:02 PM [facility] REACTIVE LYMPHOCYTES 5 09/18/2024 3:02 PM [facility] WBC MORPH STATUS Normal 09/18/20 3:02 PM [facility] RBC MORPH STATUS Normal 09/18/20 3:02 PM [facility] PLATELET STATUS Normal 3:02 PM [facility] Blood Sub-Q Port Venou s Access Device (Medi-Port, Implanted Port) / Unknown 09/18/2024 1:54 PM IV THERAPY NURSE 09/18/2024 1:54 PM IV THERAPY NURSE us Cruzito Orr MD HEMATOLOGY ORDERABLES Fi nal Result [facility] [address] [place] [address] * (ABNORMAL) CBC WITH AUTO DIFFERENTIAL (09/18/2024 1:54 PM IV THERAPY NURSE) WBC 3.44(L) 4.00 - 12.00 10(3)/mcL 09/18/2024 3:02 PM [facility] RBC 2.22(L) 3.80 - 5.30 10(6)/mcL 09/18/2024 3:02 PM [facility] HEMOGLOBIN (HGB) 7.6(L) 12.0 - 15.8 g/dL 09/18/2024 3:02 PM [facility] HEMATOCRIT (HCT) 22.6(L) 36.0 - 47.0 % 09/18/2024 3:02 PM [facility] MCV 101.8(H) 82.0 - 96.0 fL 09/18/2024 3:02 PM [facility] MCH 34.2(H) 26.0 - 34.0 pg 09/18/2024 3:02 PM [facility] MCHC 33.6 31.0 - 36.0 g/dL 09/18/2024 3:02 PM [facility] PLATELET COUNT 21(L) 140 - 440 10(3)/[facility] 09/18/2024 3:02 PM [facility] RDW 21.2(H) 11.8 - 15.5 % 09/18/2024 3:02 PM [facility] MPV 9.9 9.7 - 12.4 fL 09/18/2024 3:02 PM [facility] NRBC PER 100 WBC 1 09/18/2024 3:02 PM [facility] RESULTS ARE CONSISTENT WITH PERIPHERAL SMEAR REVIEW Yes 09/18/2024 3:02 PM [facility] RBC MORPHOLOGY CONSISTENT WITH INDICES Yes 09/18/2024 3:02 PM [facility] Blood Sub-Q Port Venou s Access Device (Medi-Port, Implanted Port) / Unknown 09/18/2024 1:54 PM IV THERAPY NURSE 09/18/2024 1:54 PM IV THERAPY NURSE Cruzito Orr MD HEMATOLOGY ORDERABLES Fi nal Result [facility] [address] [place] [address] documented in this encounter Visit Diagnoses Diagnosis 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 Urothelial cancer (HCC) Malignant neoplasm of other specified sites of urinary organs documented in this encounter Administered Medications Inactive Administered Medications - up to 3 most recent administrations Medication Order MAR Action Action Date Dose Rate Site Heparin Na (Pork) Lock Flsh PF SOLN 50 Units 50 Units, Intravenous, PRN, Starting on Mon09/18/24 at 1340, Until Mon09/18/24 at 1832, Line CareIndications:Anemia associated with chemotherapy Given 09/18/2024 1:50 PM IV THERAPY NURSE 50 Units documented in this encounter Care Teams Rehab Specialist Relationship Specialty Start Date End Date Karson Forbes MD [address] [place] [address] PCP - General Family Medicine 06/18/24 Levi Carpenter DPM Podiatry 06/07/16 Los Perry MD [address] [address] Consulting Physician General Surgery 06/20/24 documented as of this encounter
--- OUTSIDE RECORDS SUMMARY | 2024-10-13 03:58 | XMS_ITS | Encounter Summary ---
Author Organization [facility] Care Team Providers Care Skewer Up Name Role Phone Levi Carpenter DPM Unavailable [phone] Karson Forbes MD Primary Care Provider [phone] Los Perry MD Unavailable Encounter Details Date Type Department Care Team (Latest Contact Info) Description 09/23/2024 Travel Social History Tobacco Use Types Packs/Day [...] st Contact Info) Description 10/16/2024 10:40 AM FINISH MENDER Office Visit [facility] Oncology Services [address] [place] [phone] Cruzito Orr MD [address] [place] [address] Discharge Disposition: Discharged to home or Selfcare 10/16/2024 1:20 PM FINISH MENDER Clinical Support [facility] Oncology Services [address] [place] [phone] Discharge Disposition: Discharged to home or Selfcare 10/17/2024 1:00 PM FINISH MENDER Clinical Support [facility] Oncology Services [address] [place] [phone] Discharge Disposition: Discharged to home or Selfcare 10/23/2024 9:20 AM FINISH MENDER Clinical Support [facility] Oncology Services [address] [place] [phone] Discharge Disposition: Discharged to home or Selfcare 10/24/2024 1:00 PM FINISH MENDER Clinical Support [facility] Oncology Services [address] [place] [phone] Discharge Disposition: Discharged to home or Selfcare documented as of this encounter Visit Diagnoses Not on filedocumented in this encounter Care Teams Skewer Up Relationship Specialty Start Date End Date Karson Forbes MD [address] [place] [address] PCP - General Family Medicine 06/18/24 Levi Carpenter DPM Podiatry 06/07/16 Los Perry MD [address] [phone] Consulting Physician General Surgery 06/20/24 documented as of this encounter
--- OUTSIDE RECORDS SUMMARY | 2024-10-13 03:58 | XMS_ITS | Encounter Summary ---
Author Organization [facility] Care Team Providers Care Ornamental Iron Worker Apprentice Name Role Phone Levi Carpenter DPM Unavailable [phone] Karson Forbes MD Primary Care Provider [phone] Los Perry MD Unavailable [phone] Encounter Details Date Type Department Care Team (Latest Contact Info) Description 08/13/2024 Travel Social History Tobacco Use Types Packs/Day [...] st Contact Info) Description 10/16/2024 10:40 AM HARDBOARD PRESS OPERATOR Office Visit [facility] Oncology Services [address] [place] [phone] Cruzito Orr MD [address] [place] [address] Discharge Disposition: Discharged to home or Selfcare 10/16/2024 1:20 PM HARDBOARD PRESS OPERATOR Clinical Support [facility] Oncology Services [address] [place] [phone] Discharge Disposition: Discharged to home or Selfcare 10/17/2024 1:00 PM HARDBOARD PRESS OPERATOR Clinical Support [facility] Oncology Services [address] [place] [phone] Discharge Disposition: Discharged to home or Selfcare 10/23/2024 9:20 AM HARDBOARD PRESS OPERATOR Clinical Support [facility] Oncology Services [address] [place] [phone] Discharge Disposition: Discharged to home or Selfcare 10/24/2024 1:00 PM HARDBOARD PRESS OPERATOR Clinical Support [facility] Oncology Services [address] [place] [phone] Discharge Disposition: Discharged to home or Selfcare documented as of this encounter Visit Diagnoses Not on filedocumented in this encounter Care Teams Ornamental Iron Worker Apprentice Relationship Specialty Start Date End Date Karson Forbes MD [address] [place] [address] PCP - General Family Medicine 06/18/24 Levi Carpenter DPM Podiatry 06/07/16 Los Perry MD #[address] [phone] Consulting Physician General Surgery 06/20/24 documented as of this encounter
--- OUTSIDE RECORDS SUMMARY | 2024-10-13 03:58 | XMS_ITS | Encounter Summary ---
Author Organization [facility] Care Team Providers Care Washing Machine Loader And Puller Name Role Phone Levi Carpenter DPM Unavailable [phone] Karson Forbes MD Primary Care Provider [phone] Los Perry MD Unavailable Encounter Details Date Type Department Care Team (Latest Contact Info) Description 08/18/2024 Travel Social History Tobacco Use Types Packs/Day [...] st Contact Info) Description 10/16/2024 10:40 AM KNOCKOUT 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 Office Visit [facility] [address] [place] [phone] Cruzito Orr MD [address] [place] [address] Discharge Disposition: Discharged to home or Selfcare 10/16/2024 1:20 PM KNOCKOUT 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 Clinical Support [facility] Oncology Services [address] [place] [phone] Discharge Disposition: Discharged to home or Selfcare 10/17/2024 1:00 PM KNOCKOUT 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 Clinical Support [facility] Oncology Services [address] [place] [phone] Discharge Disposition: Discharged to home or Selfcare 10/23/2024 9:20 AM KNOCKOUT 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 Clinical Support [facility] On[facility] Services [address] [place] [phone] Discharge Disposition: Discharged to home or Selfcare 10/24/2024 1:00 PM KNOCKOUT 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 Clinical Support [facility] On[facility] Services [address] [place] [phone] Discharge Disposition: Discharged to home or Selfcare documented as of this encounter Visit Diagnoses Not on filedocumented in this encounter Care Teams Washing Machine Loader And Puller Relationship Specialty Start Date End Date Karson Forbes MD [address] [place] [address] PCP - General Family Medicine 06/18/24 Levi Carpenter DPM Podiatry 06/07/16 Los Perry MD [address] [phone] Consulting Physician General Surgery 06/20/24 documented as of this encounter
--- OUTSIDE RECORDS SUMMARY | 2024-10-13 03:58 | XMS_ITS | Encounter Summary ---
Author Organization [facility] Care Team Providers Care Door Manager Name Role Phone Levi Carpenter DPM Unavailable [phone] Karson Forbes MD Primary Care Provider [phone] Los Perry MD Unavailable Encounter Details Date Type Department Care Team (Latest Contact Info) Description 09/04/2024 Travel Social History Tobacco Use Types Packs/Day [...] st Contact Info) Description 10/16/2024 10:40 AM PHYSICIAN RELATIONS MANAGER Office Visit [facility] [address] [place] [phone] Cruzito Orr MD [address] [place] [address] Discharge Disposition: Discharged to home or Selfcare 10/16/2024 1:20 PM PHYSICIAN RELATIONS MANAGER Clinical Support [facility] Oncology Services [address] [place] [phone] Discharge Disposition: Discharged to home or Selfcare 10/17/2024 1:00 PM PHYSICIAN RELATIONS MANAGER Clinical Support [facility] Oncology Services [address] [place] [phone] Discharge Disposition: Discharged to home or Selfcare 10/23/2024 9:20 AM PHYSICIAN RELATIONS MANAGER Clinical Support [facility] Oncology Services [address] [place] [phone] Discharge Disposition: Discharged to home or Selfcare 10/24/2024 1:00 PM PHYSICIAN RELATIONS MANAGER Clinical Support [facility] On[facility] Services [address] [place] [phone] Discharge Disposition: Discharged to home or Selfcare documented as of this encounter Visit Diagnoses Not on filedocumented in this encounter Care Teams Door Manager Relationship Specialty Start Date End Date Karson Forbes MD [address] [place] [address] PCP - General Family Medicine 06/18/24 Levi Carpenter DPM Podiatry 06/07/16 Los Perry MD [address] [phone] Consulting Physician General Surgery 06/20/24 documented as of this encounter
--- OUTSIDE RECORDS SUMMARY | 2024-10-13 03:58 | XMS_ITS | Encounter Summary ---
Author Organization [facility] Care Team Providers Care Rotating Field Assembler Name Role Phone Levi Carpenter DPM Unavailable [phone] Karson Forbes MD Primary Care Provider [phone] Los Perry MD Unavailable Encounter Details Date Type Department Care Team (Latest Contact Info) Description 08/08/2024 Travel Social History Tobacco Use Types Packs/Day [...] st Contact Info) Description 10/16/2024 10:40 AM LEAD TECHNICAL WRITER Office Visit [facility] [address] [place] [phone] Cruzito Orr MD [address] [place] [address] Discharge Disposition: Discharged to home or Selfcare 10/16/2024 1:20 PM LEAD TECHNICAL WRITER Clinical Support [facility] Oncology Services [address] [place] [phone] Discharge Disposition: Discharged to home or Selfcare 10/17/2024 1:00 PM LEAD TECHNICAL WRITER Clinical Support [facility] Oncology Services [address] [place] [phone] Discharge Disposition: Discharged to home or Selfcare 10/23/2024 9:20 AM LEAD TECHNICAL WRITER Clinical Support [facility] Oncology Services [address] [place] [phone] Discharge Disposition: Discharged to home or Selfcare 10/24/2024 1:00 PM LEAD TECHNICAL WRITER Clinical Support [facility] Oncology Services [address] [place] [phone] Discharge Disposition: Discharged to home or Selfcare documented as of this encounter Visit Diagnoses Not on filedocumented in this encounter Care Teams Rotating Field Assembler Relationship Specialty Start Date End Date Karson Forbes MD [address] [place] [address] PCP - General Family Medicine 06/18/24 Levi Carpenter DPM Podiatry 06/07/16 Los Perry MD [address] [phone] Consulting Physician General Surgery 06/20/24 documented as of this encounter
--- OUTSIDE RECORDS SUMMARY | 2024-10-13 03:58 | XMS_ITS | Encounter Summary ---
Author Organization [facility] Care Team Providers Care Cane Flume Feeding Machine Operator Name Role Phone Levi Carpenter DPM Unavailable [phone] Karson Forbes MD Primary Care Provider [phone] Los Perry MD Unavailable [phone] Encounter Details Date Type Department Care Team (Latest Contact Info) Description 09/03/2024 Travel Social History Tobacco Use Types Packs/Day [...] st Contact Info) Description 10/16/2024 10:40 AM SHIPPING AND RECEIVING MATERIAL HANDLER Office Visit [facility] [address] [place] [phone] Cruzito Orr MD [address] [place] [address] Discharge Disposition: Discharged to home or Selfcare 10/16/2024 1:20 PM SHIPPING AND RECEIVING MATERIAL HANDLER Clinical Support [facility] Oncology Services [address] [place] [phone] Discharge Disposition: Discharged to home or Selfcare 10/17/2024 1:00 PM SHIPPING AND RECEIVING MATERIAL HANDLER Clinical Support [facility] Oncology Services [address] [place] [phone] Discharge Disposition: Discharged to home or Selfcare 10/23/2024 9:20 AM SHIPPING AND RECEIVING MATERIAL HANDLER Clinical Support [facility] On[facility] Services [address] [place] [phone] Discharge Disposition: Discharged to home or Selfcare 10/24/2024 1:00 PM SHIPPING AND RECEIVING MATERIAL HANDLER Clinical Support [facility] On[facility] Services [address] [place] [phone] Discharge Disposition: Discharged to home or Selfcare documented as of this encounter Visit Diagnoses Not on filedocumented in this encounter Care Teams Cane Flume Feeding Machine Operator Relationship Specialty Start Date End Date Karson Forbes MD [address] [place] [address] PCP - General Family Medicine 06/18/24 Levi Carpenter DPM Podiatry 06/07/16 Los Perry MD [address] [phone] Consulting Physician General Surgery 06/20/24 documented as of this encounter
--- OUTSIDE RECORDS SUMMARY | 2024-10-13 03:58 | XMS_ITS | Encounter Summary ---
Author Organization [facility] Address [address] [place] [address] Phone Care Team Providers Care [employer] Name Role Phone Levi Carpenter DPM Unavailable [phone] Karson Forbes MD Primary Care Provider [phone] Los Perry MD Unavailable Reason for Visit * Reason Comments Generalized Weakness Encounter Details Date Type Department Care Team (Late st Contact Info) Description 08/18/2024 9:53 PM EDITOR MAP - 08/19/2024 2:21 AM EDITOR MAP Emergency [facility] Emergency [address] [place] [id number] Kraig Glass MD [address] [place] [address] Hyperactive airway disease Discharge Disposition: Discharged to [...] Sign Reading Time Taken Comments Blood Pressure 125/67 08/19/2024 1:00 AM EDITOR MAP Pulse 80 08/19/2024 1:45 AM EDITOR MAP Temperature 37.9 ??C (100.3 ??F) 08/18/2024 9:[address] Respiratory Rate 20 08/19/2024 1:45 AM EDITOR MAP Oxygen Saturation 96% 08/19/2024 1:45 AM EDITOR MAP Inhaled Oxygen Concentration - - Weight 63.5 kg (140 lb) 08/18/2024 9:49 PM EDITOR MAP Height 154.9 cm (5' 1 ) 08/18/2024 9:49 PM EDITOR MAP Body Mass Index 26.45 08/18/2024 9:49 PM EDITOR MAP documented in this encounter Medications at Time of Discharge atorvastatin (LIPITOR) 80 MG Tablet Take 40 mg by mouth daily. clopidogrel (PLAVIX) 75 MG Tablet Take 75 mg by mouth daily. Instructed to hold for 5 days prior to surgery on 07/02/2024 Coenzyme Q10 400 MG Capsule Take by mouth daily. metoprolol tartrate (LOPRESSOR) 50 MG Tablet Take 50 mg by mouth every morning. Multiple Vitamin (MULTIVITAMIN PO) Take by mouth. Instructed to hold for 3 days prior to surgery on 07/02/2024 Probiotic Product (PROBIOTIC DAILY PO) Take by mouth. SUMAtriptan (IMITREX) 50 MG Tablet Take 1 Tab by mouth as needed. 11 05/09/2016 levoFLOXacin (LEVAQUIN) 500 MG Tablet Take 1 Tablet by mouth daily for 5 days. 5 Tablet 08/17/2024 4 predniSONE (DELTASONE) 20 MG TabletIndication s:Reactive airway disease Take 1 Tablet by mouth daily. Indications: Reactive airway disease 15 Tablet 08/19/2024 4 documented as of this encounter ED Notes * Yane Culver RN - 08/19/2024 2:15 AM CST Patient discharged. Discharge instructions and patient educational material reviewed with patient; questions and concerns addressed; patient verbalizes understanding, using teach back. Patient was given 1 prescription. Patient discharged per ambulatory mode with self as responsible green party. Le needle removed from patient's port with needle intact. OR MAP * Yane Culver RN - 08/19/2024 2:06 AM CST Pt medicated per provider orders. Pt educated on intended effects and side effects of medication and verbalized understanding. Pt able to provide teach- back of education. OR MAP * Yane Culver RN - 08/19/2024 1:00 AM CST Patient is resting in room with call light at bedside. Patient informed about wait time and verbalizes understanding. Patient denies needs at this time and verbalizes understanding that RN will complete hourly rounding. OR MAP * Yane Culver RN - 08/19/2024 12:00 AM CST Patient is resting in room with call light at bedside. Patient informed about wait time and verbalizes understanding. Patient denies needs at this time and verbalizes understanding that RN will complete hourly rounding. OR MAP * Kraig Glass MD - 08/18/2024 11:54 PM CST Chief Complaint Patient presents with Generalized Weakness Patient is a 59-year-old female comes emergency room complaining of some difficulty breathing and general fatigue and lethargy. She he was recently placed on Macrodantin for urinary tract infection. She felt like she was having a reaction so she was called and had this changed today. They put her on Levaquin. She was started noticing red spots on her lower extremities. She was denies any shortness of breath or cough. He was not had any dysuria or urinary frequency. Current Facility-Administered Medications Medication Dose Route Frequency Provider Last Rate Last Admin Heparin Na (Pork) Lock Flsh PF SOLN 50 Units 50 Units Intravenous Once Kraig Glass MD predniSONE (DELTASONE) tablet 20 mg 20 mg Oral Once Kraig Glass MD Current Outpatient Medications Medication Sig Dispense Refill atorvastatin (LIPITOR) 80 MG Tablet Take 40 mg by mouth daily. clopidogrel (PLAVIX) 75 MG Tablet Take 75 mg by mouth daily. Instructed to hold for 5 days prior tosurgery on 07/02/2024 Coenzyme Q10 400 MG Capsule Take by mouth daily. levoFLOXacin (LEVAQUIN) 500 MG Tablet Take 1 Tablet by mouth daily for 5 days. 5 Tablet 0 metoprolol tartrate (LOPRESSOR) 50 MG Tablet Take 50 mg by mouth every morning. Multiple Vitamin (MULTIVITAMIN PO) Take by mouth. Instructed to hold for 3 days prior to surgery on07/02/2024 predniSONE (DELTASONE) 20 MG Tablet Take 1 Tablet by mouth daily. Indications: Reactive airway disease 15 Tablet 0 Probiotic Product (PROBIOTIC DAILY PO) Take by mouth. SUMAtriptan (IMITREX) 50 MG Tablet Take 1 Tab by mouth as needed. 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 Hyperlipidemia 10/09/2005 Menopause 10/09/2011 Migraine Obesity PVD (peripheral vascular disease) ([facility]) stents in iliac arteries Past Surgical History: Procedure Laterality Date BUNIONECTOMY Right 11/25/2016 Procedure: GILBERTO/JESSA BUNIONECTOMY AND TAILORS BUNIONECTOMY RIGHT FOOT; Surgeon: Levi Carpenter DPM; Location: [facility]; Service: BUNIONECTOMY Left 02/17/2017 Procedure: BUNIONECTOMY Gilberto GERMAIN TALARS; Surgeon: Levi Carpenter DPM; Location: [facility]; Service: CARDIAC CATHERIZATION 10/09/2015 CENTRAL VENOUS CATHETER N/A 07/02/2024 Procedure: INSERTION OF POWER PORT, RIGHT CHEST; Surgeon: Los Perry MD; Location: [facility]; Service: General CHOLECYSTECTOMY 1998 GALLBLADDER SURGERY 07/09/1998 laparoscopic MASTECTOMY BILATERAL Bilateral 05/28/2018 OTHER SURGICAL HISTORY 01/2008, 07/2005, 2016 circulatory stent implants(4) [place] OTHER SURGICAL HISTORY 10/09/2004 polyps removed from vocal cords TOTAL NEPHRECTOMY Left 05/17/2024 Social History Socioeconomic History Marital status: Spouse name: Not on file Number of children: Not on file Years of education: Not on file Highest education level: Not on file Occupational History Not on file Tobacco Use Smoking status: Every Day Current packs/day: 1.00 Average packs/day: 1 pack/day for 44.2 years (44.2 ttl pk-yrs) Types: Cigarettes Start date: 06/18/1980 Smokeless tobacco: Never Vaping Use Vaping status: Never Used Substance and Sexual Activity Alcohol use: No Alcohol/week: 0.0 oz Drug use: No Sexual activity: Not on file Other Topics Concern Not on file Social History Narrative Not on file Social Determinants of Health Financial Resource Needs: Low Risk (05/22/2024) Received from [facility] Overall Financial Resource Strain (CARDIA) Difficulty of Paying Living Expenses: Not hard at all Food Insecurity Needs: No Food Insecurity (05/22/2024) Received from [facility] Hunger Vital Sign Worried About Running Out of Food in the Last Year: Never true Ran Out of Food in the Last Year: Never true Transportation Needs: No Transportation Needs (05/22/2024) Received from [facility] PRAPARE - Transportation Lack of Transportation (Medical): No Lack of Transportation (Non-Medical): No Physical Activity: Not on file Stress: Not on file Social Integration: Moderately Integrated (05/22/2024) Received from [facility] Social Connection and Isolation Panel [NHANES] Frequency of Communication with Friends and Family: More than three times a week Frequency of Social Gatherings with Friends and Family: More than three times a week Attends Sabianism Services: More than 4 times per year Active Member of Clubs or Organizations: Yes Attends Club or Organization Meetings: More than 4 times per year Marital Status: Intimate Partner Violence: Not on file Housing Stability: Low Risk (05/22/2024) [facility] Housing Stability Vital Sign Unable to Pay for Housing in the Last Year: No Number of Times Moved in the Last Year: 0 Homeless in the Last Year: No BP 125/67 Pulse 80 Temp 100.3 ??F (37.9 ??C) (Tympanic) Resp 20 Ht 5' 1 (1.549 m) Wt 140lb (63.5 kg) SpO2 96% BMI 26.45 kg/m?? Review of Systems Constitutional: Negative for activity change, appetite change, chills and fever. HENT: Negative for congestion, ear pain, rhinorrhea, sore throat and trouble swallowing. Eyes: Negative for pain, discharge and visual disturbance. Respiratory: Negative for cough, chest tightness, shortness of breath and wheezing. Cardiovascular: Negative for chest pain and palpitations. Gastrointestinal: Negative for abdominal pain, diarrhea, nausea and vomiting. Genitourinary: Negative for difficulty urinating, dysuria and menstrual problem. Musculoskeletal: Negative for arthralgias, back pain and myalgias. Skin: Negative for pallor, rash and wound. Neurological: Negative for dizziness, syncope and headaches. Hematological: Negative for adenopathy. Psychiatric/Behavioral: Negative for confusion. All other systems reviewed and are negative. Physical Exam Vitals and nursing note reviewed. Constitutional: General: She is not in acute distress. Appearance: She is well-developed. She is not diaphoretic. HENT: Head: Normocephalic and atraumatic. Eyes: Conjunctiva/sclera: Conjunctivae normal. Pupils: Pupils are equal, round, and reactive to light. Cardiovascular: Rate and Rhythm: Normal rate and regular rhythm. Heart sounds: Normal heart sounds. No murmur heard. No friction rub. No gallop. Pulmonary: Effort: Pulmonary effort is normal. No respiratory distress. Breath sounds: Normal breath sounds. No wheezing or rales. Abdominal: General: Bowel sounds are normal. There is no distension. Palpations: Abdomen is soft. Tenderness: There is no abdominal tenderness. There is no guarding or rebound. Musculoskeletal: General: No tenderness or deformity. Normal range of motion. Cervical back: Normal range of motion and neck supple. Lymphadenopathy: Cervical: No cervical adenopathy. Skin: General: Skin is warm and dry. Coloration: Skin is not pale. Findings: No erythema or rash. Neurological: Mental Status: She is alert and oriented to person, place, and time. Psychiatric: Behavior: Behavior normal. Thought Content: Thought content normal. Judgment: Judgment normal. Procedures Recent Results (from the past 24 hour(s)) Comprehensive Metabolic Panel (Cmp) [id number] Collection Time: 08/18/24 10:35 PM Result Value Ref Range SODIUM 136 136 - 145 mmol/L POTASSIUM 4.2 3.5 - 5.1 mmol/L CHLORIDE 105 98 - 107 mmol/L CO2, VENOUS 20 (L) 22 - 30 mmol/L ANION GAP 15.2 <18.0 mmol/L GLUCOSE 102 (H) 70 - 99 mg/dL BUN 12 10 - 20 mg/dL CREATININE, BLOOD 1.36 (H) 0.60 - 1.00 mg/dL BUN/CREATININE RATIO 9 (L) 12 - 20 ratio TOTAL PROTEIN 6.1 (L) 6.3 - 8.2 g/dL ALBUMIN 3.8 3.5 - 5.0 g/dL A/G RATIO 1.7 1.0 - 2.2 CALCIUM 8.7 8.7 - 10.5 mg/dL T BILI 0.3 0.2 - 1.2 mg/dL SGOT (AST) 18 5 - 34 U/L SGPT (ALT) 22 0 - 55 U/L ALKALINE PHOSPHATASE 84 40 - 150 U/L GFR, ESTIMATED 45 (L) >=60 GFR, EST. 48 (L) >=60 GFR, EST. NONAFRICAN 40 (L) >=60 TROPONIN I, HIGH SENSITIVITY (HSTRP) Collection Time: 08/18/24 10:35 PM Result Value Ref Range TROPONIN I, HIGH SENSITIVITY- SHELBY 8 <=14 ng/L CBC with Auto Differential Collection Time: 08/18/24 10:35 PM Result Value Ref Range WBC 2.33 (L) 4.00 - 12.00 10(3)/mcL RBC 2.63 (L) 3.80 - 5.30 10(6)/mcL HEMOGLOBIN (HGB) 8.3 (L) 12.0 - 15.8 g/dL HEMATOCRIT (HCT) 23.9 (L) 36.0 - 47.0 % MCV 90.9 82.0 - 96.0 fL MCH 31.6 26.0 - 34.0 pg MCHC 34.7 31.0 - 36.0 g/dL PLATELET COUNT 17 (LL) 140 - 440 10(3)/mcL RDW 14.6 11.8 - 15.5 % MPV 11.9 9.7 - 12.4 fL NRBC PER 100 WBC 0 RESULTS ARE CONSISTENT WITH PERIPHERAL SMEAR REVIEW Yes RBC MORPHOLOGY CONSISTENT WITH INDICES Yes Manual Differential Collection Time: 08/18/24 10:35 PM Result Value Ref Range BANDS % 2.0 % NEUTROPHILS % 44.0 (L) 47.0 - 73.0 % LYMPHOCYTES % 51.0 (H) 18.0 - 42.0 % MONOCYTES % 3.0 (L) 4.0 - 12.0 % NEUTROPHILS ABSOLUTE 1.07 (L) 1.60 - 7.70 10(3)/mcL LYMPHOCYTES ABSOLUTE 1.19 (L) 1.30 - 3.20 10(3)/mcL MONOCYTES ABSOLUTE 0.07 (L) 0.20 - 1.00 10(3)/mcL OVALOCYTES Present REACTIVE LYMPHOCYTES 3 WBC MORPH STATUS Normal PLATELET STATUS Normal TROPONIN I, HIGH SENSITIVITY (HSTRP) Collection Time: 08/19/24 12:03 AM Result Value Ref Range TROPONIN I, HIGH SENSITIVITY- SHELBY 8 <=14 ng/L Imaging Results XR CHEST SINGLE VIEW PORTABLE (Final result) Result time 08/18/24 23:11:14 Final result by Conrad Grewal MD (08/18/24 23:11:14) Impression: IMPRESSION: No acute abnormality identified. Narrative: EXAM DESCRIPTION: XR CHEST SINGLE VIEW PORTABLE [...] Conrad Grewal M.D. AR: KEI Report ID: [id number] Reading Location: [id number] Medical Decision Making Amount and/or Complexity of Data Reviewed Labs: ordered. Decision-making details documented in ED Course. Radiology: ordered. Decision-making details documented in ED Course. ECG/medicine tests: ordered and independent interpretation performed. Decision- making details documented in ED Course. Clinical Impression 1. Hyperactive airway disease 2. Pancytopenia due to chemotherapy (HCC) Disposition: Discharge Patient presents emergency room some difficulty breathing along with general fatigue and lethargy. She has been on Macrodantin and recently switched to Levaquin. Labs came back with CMP showing some mild renal dysfunction with a creatinine 1.36. Her CBC had depressed white count of 2.33, hemoglobin8.3, and platelet count of 17. I went over all these results with her. She was patient was Dr. Baldwin and will be following up with her this week. She does have wheezing through he was. We are unable to order any type of aerosolized albuterol or DuoNeb treatments due to a risk of high due to his calmed ends. She can use the inhaler which she has at home. She was started using this every 4 hours. Will also give her low-dose steroid to help with the inflammation in his chest and begin this at 20 mg daily. OR MAP * Yane Culver RN - 08/18/2024 11:00 PM CST Patient is resting in room with call light at bedside. Patient informed about wait time and verbalizes understanding. Patient denies needs at this time and verbalizes understanding that RN will complete hourly rounding. OR MAP * Basia Shea RN - 08/18/2024 9:47 PM CST Pt ambulatory to ED with complaints of difficulty breathing, lethargy, and red spots on her arms and legs since Monday when she started a new antibiotic for a UTI. Resp currently even and nonlabored, 97% on RA. No distress noted. OR MAP documented in this encounter Miscellaneous Notes * PatientPass Patient Instructions - Kraig Glass MD - 08/19/2024 2:03 AM CST Images from the original note were not included. Patient Education Table of Contents Asthma, Adult Pancytopenia To view videos and all your education online visit, [email or web address] or scan this QR code with your smartphone. Access to this content will in one year. Asthma, Adult Asthma is a long-term (chronic) condition that causes recurrent episodes in which the lower airwaysin the lungs become tight and narrow. The narrowing is caused by inflammation and tightening of thesmooth muscle around the lower airways. Asthma episodes, also called asthma attacks or asthma flares, may cause coughing, making high-pitched whistling sounds when you breathe, most often when you breathe out (wheezing), shortness of breath, and chest pain. The airways may produce extra mucus caused by the inflammation and irritation. During an attack, it can be difficult to breathe. Asthma attacks can range from minor to life-threatening. Asthma cannot be cured, but medicines and lifestyle changes can help control it and treat acute attacks. It is important to keep your asthma well controlled so the condition does not interfere with your daily life. What are the causes? This condition is believed to be caused by inherited (genetic) and environmental factors, but its exact cause is not known. What can trigger an asthma attack? Many things can bring on an asthma attack or make symptoms worse. These triggers are different for every person. Common triggers include: Allergens and irritants like mold, dust, pet dander, cockroaches, pollen, air pollution, and chemical odors. Cigarette smoke. Weather changes and cold air. Stress and strong emotional responses such as crying or laughing hard. Certain medications such as aspirin or beta blockers. Infections and inflammatory conditions, such as the flu, a cold, pneumonia, or inflammation of the nasal membranes (rhinitis). Gastroesophageal reflux disease (GERD). What are the signs or symptoms? Symptoms may occur right after exposure to an asthma trigger or hours later and can vary by person.Common signs and symptoms include: Wheezing. Trouble breathing (shortness of breath). Excessive nighttime or flight test shop mechanic coughing. Chest tightness. Tiredness (fatigue) with minimal activity. Difficulty talking in complete sentences. Poor exercise tolerance. How is this diagnosed? This condition is diagnosed based on: A physical exam and your medical history. Tests, which may include: ? Lung function studies to evaluate the flow of air in your lungs. ? Allergy tests. ? Imaging tests, such as X-rays. How is this treated? There is no cure, but symptoms can be controlled with proper treatment. Treatment usually involves: Identifying and avoiding your asthma triggers. Inhaled medicines. Two types are commonly used to treat asthma, depending on severity: ? Controller medicines. These help prevent asthma symptoms from occurring. They are taken every day. ? Fast-acting reliever or rescue medicines. These quickly relieve asthma symptoms. They are used asneeded and provide short-term relief. Using other medicines, such as: ? Allergy medicines, such as antihistamines, if your asthma attacks are triggered by allergens. ? Immune medicines (immunomodulators). These are medicines that help control the immune system. Using supplemental oxygen. This is only needed during a severe episode. Creating an asthma action plan. An asthma action plan is a written plan for managing and treating your asthma attacks. This plan includes: ? A list of your asthma triggers and how to avoid them. ? Information about when medicines should be taken and when their dosage should be changed. ? Instructions about using a device called a peak flow meter. A peak flow meter measures how well the lungs are working and the severity of your asthma. It helps you monitor your condition. Follow these instructions at home: Take [id number]-ole-swmzkyd and prescription medicines only as told by your health care provider. Stay up to date on all vaccinations as recommended by your healthcare provider, including vaccines for the flu and pneumonia. Use a peak flow meter and keep track of your peak flow readings. Understand and use your asthma action plan to address any asthma flares. Do not smoke or allow anyone to smoke in your home. Contact a health care provider if: You have wheezing, shortness of breath, or a cough that is not responding to medicines. Your medicines are causing side effects, such as a rash, itching, swelling, or trouble breathing. You need to use a reliever medicine more than 2?3 times a week. Your peak flow reading is still at 50?79% of your personal best after following your action plan for 1 hour. You have a fever and shortness of breath. Get help right away if: You are getting worse and do not respond to treatment during an asthma attack. You are short of breath when at rest or when doing very little physical activity. You have difficulty eating, drinking, or talking. You have chest pain or tightness. You develop a fast heartbeat or palpitations. You have a bluish color to your lips or fingernails. You are light-headed or dizzy, or you faint. Your peak flow reading is less than 50% of your personal best. You feel too tired to breathe normally. These symptoms may be an emergency. Get help right away. Call 911. Do not wait to see if the symptoms will go away. Do not drive yourself to the hospital. Summary Asthma is a long-term (chronic) condition that causes recurrent episodes in which the airways become tight and narrow. Asthma episodes, also called asthma attacks or asthma flares, can cause coughing, wheezing, shortness of breath, and chest pain. Asthma cannot be cured, but medicines and lifestyle changes can help keep it well controlled and prevent asthma flares. Make sure you understand how to avoid triggers and how and when to use your medicines. Asthma attacks can range from minor to life-threatening. Get help right away if you have an asthma attack and do not respond to treatment with your usual rescue medicines. This information is not intended to replace advice given to you by your health care provider. Make sure you discuss any questions you have with your health care provider. Document Released: 2006-09-25 Document Updated: 2022-07-13 Document Reviewed: 2022-07-04 [employer] Patient Education ? 2023 [employer] Pancytopenia Pancytopenia is a condition in which a person has an abnormally low number (deficiency) of the following blood cells: Red blood cells (RBCs). Having too few RBCs is called anemia. White blood cells (WBCs). Having too few WBCs is called leukopenia. Cells that help the blood clot (platelets). Having too few platelets is called thrombocytopenia. Cells that become blood cells (stem cells) are made in the soft tissue inside the bones (bone marrow). All blood cells have a limited lifespan. Blood cells are constantly replaced with new blood cells from the bone marrow. Pancytopenia can be caused by any condition or disease that: Destroys the ability of bone marrow to make blood cells. Causes bone marrow to make blood cells that cannot survive after they leave the bone marrow. What are the causes? There are many possible causes of this condition. In some cases, the cause is not known. Common causes of this condition include: Megaloblastic anemia. This is a disease that causes bone marrow to make immature blood cells. Aplastic anemia, also called bone marrow failure. Aplastic anemia occurs when soft tissue inside ofbones (bone marrow) stops making enough blood cells. Hypersplenism, which is an enlarged spleen. An enlarged spleen can trap blood cells and destroy them faster than they can be replaced. Diseases of the blood or bone marrow that are passed from parent to child (inherited). Cancers that affect bone marrow. Certain medicines, such as: ? Chemotherapy. ? Medicines that reduce the activity of the immune system (immunosuppressant medicines). Exposure to radiation. Severe infections. What increases the risk? You are more likely to develop this condition if: You are male. You have a family history of a blood or bone marrow disease. You have certain conditions, such as: ? Alcohol use disorder. ? HIV (human immunodeficiency virus) or AIDS (acquired immunodeficiency syndrome). ? Cancer. ? Conditions in which the body's disease-fighting system attacks normal tissues (autoimmune diseases). What are the signs or symptoms? Symptoms of pancytopenia vary depending on the cause and may include the following: Symptoms of anemia Pale skin. Weakness. Shortness of breath. Dizziness. Symptoms of leukopenia Frequent infections. Fever. Night sweats. Tiredness (fatigue). Symptoms of thrombocytopenia Unusual bruising or bleeding. A rash that looks like pinpoint, purplish-red spots (petechiae) on the skin and mucous membranes. Other symptoms Bone pain. Weight loss. Headache. Feeling unusually cold. How is this diagnosed? This condition may be diagnosed based on: Your symptoms. Your medical history. A physical exam. Tests. These may include: ? Removal of a sample of bone marrow to be looked at under a microscope (biopsy). This is done by putting a needle into a bone to remove fluid and cells (aspiration). ? A complete blood count (CBC). This is a group of tests that measures characteristics of WBCs, RBCs, and platelets. ? A peripheral blood smear. This test examines your blood under a microscope to provide informationabout medicines and diseases that affect RBCs, WBCs, and platelets. ? Reticulocyte count. This is a test that measures the number of new or immature RBCs (reticulocytes) that are made by your bone marrow. ? Imaging studies of your spleen or liver, such as X-rays. ? A test to measure your vitamin B12 level. ? Tests for viruses. How is this treated? Treatment for this condition depends on the cause. Treatment may include: Immunosuppressant medicines. Antibiotic medicine. Vitamin B12. This may be given as a treatment for megaloblastic anemia. Bone marrow?stimulating medicines. These are medicines that help the bone marrow make blood cells. Receiving donated blood through an IV (blood transfusion). A bone marrow transplant. A procedure to remove your spleen (splenectomy). This may be done as a treatment for hypersplenism. Follow these instructions at home: Caring for your body Wash your hands often with soap and water for at least 20 seconds. If soap and water are not available, use hand metal extrusion supervisor. [place] your teeth twice a day, and floss at least once a day. It is recommended that you visit the dentist every 6 months. Stay up to date on your vaccinations, including a yearly flu shot. Ask your health care provider which vaccines you should get. These may include a pneumonia vaccine. Medicines Take dyol-dux-qewexty and prescription medicines only as told by your health care provider. If you were prescribed an antibiotic medicine, take it as told by your health care provider. Do notstop taking the antibiotic even if you start to feel better. Lifestyle Do not take part in contact sports or dangerous activities. Ask your health care provider what activities are safe for you. During cold and flu season, avoid crowded places and avoid contact with people who are sick. Do not use any products that contain nicotine or tobacco. These products include cigarettes, chewing tobacco, and vaping devices, such as e-cigarettes. If you need help quitting, ask your health careprovider. General instructions Work with your health care provider to manage your condition and learn about your condition. Follow food safety recommendations as told by your health care provider. Keep all follow-up visits. This is important. Contact a health care provider if: You have a fever. You bruise or bleed easily. You are dizzy. You feel unusually weak or tired. Get help right away if: You have bleeding that does not stop. You are wheezing. This means making high-pitched whistling sounds when you breathe, most often whenyou breathe out. You have shortness of breath. You have chest pain. These symptoms may represent a serious problem that is an emergency. Do not wait to see if the symptoms will go away. Get medical help right away. Call your local emergency services (911 in the [place] Do not drive yourself to the hospital. Summary Pancytopenia is a condition in which a person has an abnormally low number of red blood cells, white blood cells, and platelets. There are many possible causes of this condition. Treatment for this condition depends on the cause. Work with your health care provider to manage your condition and learn about your condition. This information is not intended to replace advice given to you by your health care provider. Make sure you discuss any questions you have with your health care provider. Document Released: 2016-10-21 Document Updated: 2022-03-11 Document Reviewed: 2022-03-11 [employer] Patient Education ? 2023 [employer] [place] MAP documented in this encounter Plan of Treatment Upcoming Encounters Date Type Department Care Team (Late st Contact Info) Description 10/16/2024 10:40 AM EDITOR MAP Office Visit [facility] Oncology Services [address] [place] [phone] Cruzito Orr MD [address] [place] [address] Discharge Disposition: Discharged to home or Selfcare 10/16/2024 1:20 PM EDITOR MAP Clinical Support [facility] Oncology Services [address] [place] [address] Discharge Disposition: Discharged to home or Selfcare 10/17/2024 1:00 PM EDITOR MAP Clinical Support [facility] Oncology Services [address] [place] [address] Discharge Disposition: Discharged to home or Selfcare 10/23/2024 9:20 AM EDITOR MAP Clinical Support [facility] Oncology Services [address] [place] [address] Discharge Disposition: Discharged to home or Selfcare 10/24/2024 1:00 PM EDITOR MAP Clinical Support [facility] Oncology Services [address] [place] [address] Discharge Disposition: Discharged to home or Selfcare documented as of this encounter Procedures Procedure Name Priority Date/Time Associated Diagnosis Comments TROPONIN I, HIGH SENSITIVITY (HSTRP) STAT 08/19/2024 12:03 AM EDITOR MAP XR CHEST SINGLE VIEW PORTABLE STAT 08/18/2024 10:58 PM EDITOR MAP TROPONIN I, HIGH SENSITIVITY (HSTRP) STAT 08/18/2024 10:35 PM EDITOR MAP MANUAL DIFFERENTIAL STAT 08/18/2024 1 0:35 PM EDITOR MAP CBC WITH AUTO DIFFERENTIAL STAT 08/18/2024 10:35 PM EDITOR MAP CMP (COMPREHENSIVE METABOLIC PANEL) STAT 08/18/2024 10:35 PM EDITOR MAP COMPLETE BLOOD COUNT (CBC) WITH DIFF STAT 08/18/2024 10:35 PM EDITOR MAP EKG 12 LEAD STAT 08/18/2024 9:57 PM EDITOR MAP EKG SCAN 08/18/2024 12:00 AM EDITOR MAP documented in this encounter Results * TROPONIN I, HIGH SENSITIVITY (HSTRP) (08/19/2024 12:03 AM EDITOR MAP) Only the most recent of2 resultswithin the time period is included. TROPONIN I, HIGH SENSITIVITY- SHELBY 8 <=14 ng/L 08/19/2024 12:31 AM EDITOR MAP [facility] Comment: High-sensitivity troponin I results are reported in ng/L making the result appear to be 1,000 times higher than the contemporary troponin I value which is reported in ng/ml. Results from [place]. Blood Venipuncture / Unknown 08/19/2024 12:03 AM EDITOR MAP 08/19/2024 12:05 AM EDITOR MAP us Kraig Glass MD CHEMISTRY ORDERABLES Ivette l Result [facility] [address] [place] [address] * XR CHEST SINGLE VIEW PORTABLE (08/18/2024 10:58 PM EDITOR MAP) Anatomical Region Laterality Modality Chest N/A Computed Radiogr aphy 08/18/2024 11:0 8 PM EDITOR MAP Impressions 08/18/2024 11:11 PM EDITOR MAP IMPRESSION: No acute abnormality identified. ?? Narrative 08/18/2024 11:11 PM EDITOR MAP EXAM DESCRIPTION: XR CHEST SINGLE VIEW PORTABLE [...] PM T: ??08/18/2024 11:08 PM Report ID: [id number] Reading Location: ??[id number] Procedure Note Conrad Grewal MD - 08/18/2024 [...] Conrad Grewal M.D. AR: KEI Report ID: [id number] Reading Location: [place] [address] IMPRESSION: No acute abnormality identified. Kraig Glass MD IM DIAGNOSTIC ORDERABLES Final Result * (ABNORMAL) Manual Differential (08/18/2024 10:35 PM EDITOR MAP) BANDS % 2.0 % 08/18/2024 11:25 PM EDIT[address] MAP [facility] NEUTROPHILS % 44.0(L) 47.0 - 73.0 % 08/18/2024 11:25 PM [address] [facility] LYMPHOCYTES % 51.0(H) 18.0 - 42.0 % 08/18/2024 11:25 PM EDIT[address] MAP [facility] MONOCYTES % 3.0(L) 4.0 - 12.0 % 08/18/2024 11:25 PM EDITOR MAP [facility] NEUTROPHILS ABSOLUTE 1.07(L) 1.60 - 7.70 10(3)/mcL 08/18/2024 11:25 PM EDITOR MAP [facility] LYMPHOCYTES ABSOLUTE 1.19(L) 1.30 - 3.20 10(3)/mcL 08/18/2024 11:25 PM EDITOR MAP [facility] MONOCYTES ABSOLUTE 0.07(L) 0.20 - 1.00 10(3)/mcL 08/18/2024 11:25 [address] [facility] OVALOCYTES Present 08/18/2024 11:25 PM EDITOR MAP [facility] REACTIVE LYMPHOCYTES 3 08/18/2024 11:25 PM [facility] WBC MORPH STATUS Normal 08/18/20 24 11:25 PM EDITOR MAP [facility] PLATELET STATUS Normal 11:25 PM [facility] Blood Venipuncture / Unknown 08/18/2024 10:35 PM EDITOR MAP 08/18/2024 10:42 PM EDITOR MAP Narrative [facility] - 08/18/2024 11:25 PM EDITOR MAP Anisocytosis us Kraig Glass MD HEMATOLOGY ORDERABLES Fin al Result [facility] [address] [place] [address] * (ABNORMAL) CBC with Auto Differential (08/18/2024 10:35 PM EDITOR MAP) WBC 2.33(L) 4.00 - 12.00 10(3)/mcL 08/18/2024 11:25 PM EDITOR MAP [facility] RBC 2.63(L) 3.80 - 5.30 10(6)/mcL 08/18/2024 11:25 PM [facility] HEMOGLOBIN (HGB) 8.3(L) 12.0 - 15.8 g/dL 08/18/2024 11:25 PM EDITOR MAP [facility] HEMATOCRIT (HCT) 23.9(L) 36.0 - 47.0 % 08/18/2024 11:25 PM EDITOR MAP [facility] MCV 90.9 82.0 - 96.0 fL 08/18/2024 11:25 PM [facility] MCH 31.6 26.0 - 34.0 pg 08/18/2024 11:25 PM EDITOR MAP [facility] MCHC 34.7 31.0 - 36.0 g/dL 08/18/2024 11:25 PM EDITOR MAP [facility] PLATELET COUNT 17(LL) 140 - 440 10(3)/mcL 08/18/2024 11:25 PM EDITOR MAP [facility] RDW 14.6 11.8 - 15.5 % 08/18/2024 11:25 PM [facility] MPV 11.9 9.7 - 12.4 fL 08/18/2024 11:25 PM EDITOR MAP [facility] NRBC PER 100 WBC 0 08/18/2024 11:25 PM EDITOR MAP [facility] RESULTS ARE CONSISTENT WITH PERIPHERAL SMEAR REVIEW Yes 08/18/2024 11:25 PM [facility] RBC MORPHOLOGY CONSISTENT WITH INDICES Yes 08/18/2024 11:25 PM [facility] Blood Venipuncture / Unknown 08/18/2024 10:35 PM EDITOR MAP 08/18/2024 10:42 PM EDITOR MAP us Kraig Glass MD HEMATOLOGY ORDERABLES Fin al Result [facility] [address] [place] [address] * (ABNORMAL) Comprehensive Metabolic Panel (Cmp) [id number] (08/18/2024 10:35 PM EDITOR MAP) SODIUM 136 136 - 145 mmol/L 08/18/2024 11:05 PM [facility] POTASSIUM 4.2 3.5 - 5.1 mmol/L 08/18/2024 11:05 PM [facility] CHLORIDE 105 98 - 107 mmol/L 08/18/2024 11:05 PM [facility] CO2, VENOUS 20(L) 22 - 30 mmol/L 08/18/2024 11:05 PM [facility] ANION GAP 15.2 <18.0 mmol/L 08/18/2024 11:05 PM [facility] GLUCOSE 102(H) 70 - 99 mg/dL 08/18/2024 11:05 PM [facility] BUN 12 10 - 20 mg/dL 08/18/2024 11:05 PM [facility] CREATININE, BLOOD 1.36(H) 0.60 - 1.00 mg/dL 08/18/2024 11:05 PM [facility] BUN/CREATININE RATIO 9(L) 12 - 20 ratio 08/18/2024 11:05 PM [facility] TOTAL PROTEIN 6.1(L) 6.3 - 8.2 g/dL 08/18/2024 11:05 PM [facility] ALBUMIN 3.8 3.5 - 5.0 g/dL 08/18/2024 11:05 PM [facility] A/G RATIO 1.7 1.0 - 2.2 08/18/2024 11:05 PM [facility] CALCIUM 8.7 8.7 - 10.5 mg/dL 08/18/2024 11:05 PM [facility] T BILI 0.3 0.2 - 1.2 mg/dL 08/18/2024 11:05 PM [facility] SGOT (AST) 18 5 - 34 U/L 08/18/2024 11:05 PM [facility] SGPT (ALT) 22 0 - 55 U/L 08/18/2024 11:05 PM [facility] ALKALINE PHOSPHATASE 84 40 - 150 U/L 08/18/2024 11:05 PM [facility] GFR, ESTIMATED 45(L) >=60 08/18/2024 11:05 PM [facility] Comment: Creatinine Clearance is the preferred criteria for selecting drug dose adjustments in renally impaired patients. ??The GFR is provided as additional pertinent clinical information. GFR is reported in mL/min/1.73 sq m. Calculation based on the Chronic Kidney Disease Epidemiology Collaboration (CKD- EPI) equation refit without adjustment for race. GFR, EST. 48(L) >=60 024 11:05 PM [facility] GFR, EST. NONAFRICAN 40(L) >=60 08/18/2024 11:05 PM [facility] Blood Venipuncture / Unknown 08/18/2024 10:35 PM EDITOR MAP 08/18/2024 10:42 PM EDITOR MAP us Kraig Glass MD CHEMISTRY ORDERABLES Ivette l Result [facility] [place] [address] * EKG 12 LEAD (08/18/2024 9:57 PM EDITOR MAP) Ventricular Rate 91 BPM EXTERNAL EKG Atrial Rate 91 BPM EXTERNAL EKG P-R Interval 140 ms EXTERNAL EKG QRS Duration 70 ms EXTERNAL EKG Q-T Duration 360 ms EXTERNAL EKG QTC CALCULATION 442 ms EXTERNAL EKG P Reeders 78 degrees EXTERNAL EKG R Reeders 45 degrees EXTERNAL EKG T Reeders 79 degrees EXTERNAL EKG 08/18/2024 9:57 PM EDITOR MAP Impressions EXTERNAL EKG - 08/21/2024 10:46 PM EDITOR MAP Normal sinus rhythm Delayed R wave progression, consider septal infarct pattern vs lead misplacement Abnormal ECG No previous ECGs available Confirmed by Magdiel Duong ([id number]) on 08/21/2024 10:46:46 PM Narrative Procedure Note Magdiel Duong MD - 08/21/2024 IMPRESSION: Normal sinus rhythm Delayed R wave progression, consider septal infarct pattern vs leadmisplacement Abnormal ECG No previous ECGs available Confirmed by Magdiel Duong ([id number]) on 08/21/2024 10:46:46 PM Kraig Glass MD IMG ECG ORDERABLES Final Result EXTERNAL EKG * EKG SCAN (08/18/2024 12:00 AM EDITOR MAP) 08/18/2024 us Provider Scan IMG ECG ORDERABLES Final Result RESULTING AGENCY documented in this encounter Visit Diagnoses Diagnosis Hyperactive airway disease- Primary Unspecified asthma 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 Scheduled Medication Order 08/17/2024 08/18/2024 08/19/2024 Heparin Na (Pork) Lock Flsh PF SOLN 50 Units (COMPLETED) 50 Units, Intravenous, ONCE, 1 dose, On Mon08/19/24 at 0230 0206 (Given - Provid er: Yane Culver RN) predniSONE (DELTASONE) tablet 20 mg (COMPLETED) 20 mg, Oral, ONCE, 1 dose, On Mon08/19/24 at 0230 0206 (Given - Provid er: Yane Culver RN) documented in this encounter Care Teams Police [employer] Relationship Specialty Start Date End Date Karson Forbes [place] [address] PCP - General Family Medicine 06/18/24 Levi Carpenter DPM Podiatry 06/07/16 Los Perry MD [address] [phone] Consulting Physician General Surgery 06/20/24 documented as of this encounter
--- OUTSIDE RECORDS SUMMARY | 2024-10-13 03:58 | XMS_ITS | Encounter Summary ---
Author Organization [facility] Address [address] [place] [address] Phone Care Team Providers Care Rivet Sticker Name Role Phone Levi Carpenter DPM Unavailable [phone] Karson Forbes MD Primary Care Provider [phone] Los Perry MD Unavailable Encounter Details Date Type Department Care Team (Late st Contact Info) Description 09/16/2024 1:30 PM DIRECTOR PRESALES Clinical Support [facility] Oncology Services [address] [place] [phone] Cruzito Orr MD [address] [place] [address] Urothelial cancer (HCC) Discharge Disposition: Discharged to [...] * Interdisciplinary - Lisa Oakes RN - 09/16/2024 1:30 PM CST Pt ambulated into treatment room in stable condition. Port accessed per protocol. Flushed with easeand blood return noted. Labs drawn per MD orders. Port flushed and needle removed. MD made aware ofplatelets. Per MD, no chemo this week, pt to return on Monday for [facility] lab and Retacrit. Pt states understanding. Band aid placed. Pt discharged in stable condition. CTOR PRESALES documented in this encounter Plan of Treatment Upcoming Encounters Date Type Department Care Team (Late st Contact Info) Description 10/16/2024 10:40 AM DIRECTOR PRESALES Office Visit [facility] Oncology Services [address] [place] [phone] [place] [address] [place] [address] Discharge Disposition: Discharged to home or Selfcare 10/16/2024 1:20 PM DIRECTOR PRESALES Clinical Support [facility] Oncology Services [address] [place] [phone] Discharge Disposition: Discharged to home or Selfcare 10/17/2024 1:00 PM DIRECTOR PRESALES Clinical Support [facility] Oncology Services [address] [place] [phone] Discharge Disposition: Discharged to home or Selfcare 10/23/2024 9:20 AM DIRECTOR PRESALES Clinical Support [facility] Oncology Services [address] [place] [phone] Discharge Disposition: Discharged to home or Selfcare 10/24/2024 1:00 PM DIRECTOR PRESALES Clinical Support [facility] Oncology Services [address] [place] [address] Discharge Disposition: Discharged to home or Selfcare documented as of this encounter Procedures Procedure Name Priority Date/Time Associated Diagnosis Comments MANUAL DIFFERENTIAL STAT 09/16/2024 1 :32 PM DIRECTOR PRESALES Urothelial cancer (HCC) CBC WITH AUTO DIFFERENTIAL STAT 09/16/2024 1:32 PM DIRECTOR PRESALES Urothelial cancer (HCC) COMPLETE BLOOD COUNT (CBC) WITH DIFF STAT 09/16/2024 1:32 PM DIRECTOR PRESALES Urothelial cancer (HCC) documented in this encounter Results * (ABNORMAL) MANUAL DIFFERENTIAL (09/16/2024 1:32 PM DIRECTOR PRESALES) NEUTROPHILS % 41.0(L) 47.0 - 73.0 % 09/16/2024 2:08 PM [facility] LYMPHOCYTES % 54.0(H) 18.0 - 42.0 % 09/16/2024 2:08 PM [facility] MONOCYTES % 5.0 4.0 - 12.0 % 09/16/2024 2:08 PM [facility] NEUTROPHILS ABSOLUTE 1.76 1.60 - 7.70 10(3)/mcL 09/16/2024 2:08 PM [facility] LYMPHOCYTES ABSOLUTE 2.32 1.30 - 3.20 10(3)/mcL 09/16/2024 2:08 PM [facility] MONOCYTES ABSOLUTE 0.22 0.20 - 1.00 10(3)/mcL 09/16/2024 2:08 PM [facility] RBC MORPHOLOGY CONSISTENT WITH INDICES Yes 09/16/2024 2:08 PM [facility] OVALOCYTES Present 09/16/2024 2:08 PM [facility] WBC MORPH STATUS Normal 09/16/20 24 2:08 PM [facility] PLATELET STATUS Normal 4 2:08 PM [facility] Blood Venipuncture / Unknown 09/16/2024 1:32 PM DIRECTOR PRESALES 09/16/2024 1:32 PM DIRECTOR PRESALES Narrative [facility] - 09/16/2024 2:08 PM DIRECTOR PRESALES Anisocytosis us Cruzito Orr MD HEMATOLOGY ORDERABLES Fi nal Result [facility] [address] [place] [address] * (ABNORMAL) CBC WITH AUTO DIFFERENTIAL (09/16/2024 1:32 PM DIRECTOR PRESALES) WBC 4.30 4.00 - 12.00 10(3)/mcL 09/16/2024 2:04 PM [facility] RBC 2.19(L) 3.80 - 5.30 10(6)/mcL 09/16/2024 2:04 PM [facility] HEMOGLOBIN (HGB) 7.4(L) 12.0 - 15.8 g/dL 09/16/2024 2:04 PM [facility] HEMATOCRIT (HCT) 22.0(L) 36.0 - 47.0 % 09/16/2024 2:04 PM [facility] MCV 100.5(H) 82.0 - 96.0 fL 09/16/2024 2:04 PM [facility] MCH 33.8 26.0 - 34.0 pg 09/16/2024 2:04 PM [facility] MCHC 33.6 31.0 - 36.0 g/dL 09/16/2024 2:04 PM [facility] PLATELET COUNT 29(L) 140 - 440 10(3)/mcL 09/16/2024 2:04 PM [facility] RDW 19.8(H) 11.8 - 15.5 % 09/16/2024 2:04 PM [facility] MPV 10.0 9.7 - 12.4 fL 09/16/2024 2:04 PM [facility] NRBC PER 100 WBC 0 09/16/2024 2:04 PM DIRECTOR PRESALES [facility] RESULTS ARE CONSISTENT WITH PERIPHERAL SMEAR REVIEW Yes 09/16/2024 2:04 PM DIRECTOR PRESALES [facility] RBC MORPHOLOGY CONSISTENT WITH INDICES Yes 09/16/2024 2:04 PM DIRECTOR PRESALES [facility] Blood Venipuncture / Unknown 09/16/2024 1:32 PM DIRECTOR PRESALES 09/16/2024 1:32 PM DIRECTOR PRESALES us Cruzito Orr MD HEMATOLOGY ORDERABLES Fi nal Result [facility] [address] [place] [address] documented in this encounter Visit Diagnoses Diagnosis Urothelial cancer (HCC) Malignant neoplasm of other specified sites of urinary organs documented in this encounter Administered Medications Inactive Administered Medications - up to 3 most recent administrations Medication Order MAR Action Action Date Dose Rate Site Heparin Na (Pork) Lock Flsh PF SOLN 50 Units 50 Units, Intravenous, PRN, Starting on Mon09/16/24 at 1323, Until Mon09/16/24 at 1629, Line CareIndications:Urothelial cancer (HCC) Given 09/16/2024 2:27 PM DIRECTOR PRESALES 50 Units documented in this encounter Care Teams Rivet Sticker Relationship Specialty Start Date End Date Karson Forbes MD [address] [place] [address] PCP - General Family Medicine 06/18/24 Levi Carpenter DPM Podiatry 06/07/16 Los ePrry MD [address] [phone] Consulting Physician General Surgery 06/20/24 documented as of this encounter
--- OUTSIDE RECORDS SUMMARY | 2024-10-13 03:58 | XMS_ITS | Encounter Summary ---
Author Organization [facility] Care Team Providers Care Card Player Name Role Phone Levi Carpenter DPM Unavailable [phone] Karson Forbes MD Primary Care Provider [phone] Los Perry MD Unavailable [phone] Encounter Details Date Type Department Care Team (Latest Contact Info) Description 09/25/2024 Travel Social History Tobacco Use Types Packs/Day [...] st Contact Info) Description 10/16/2024 10:40 AM TOY ASSEMBLER WOOD Office Visit [facility] Oncology Services [address] [place] [phone] Cruzito Orr MD [address] [place] [address] Discharge Disposition: Discharged to home or Selfcare 10/16/2024 1:20 PM TOY ASSEMBLER WOOD Clinical Support [facility] Oncology Services [address] [place] [phone] Discharge Disposition: Discharged to home or Selfcare 10/17/2024 1:00 PM TOY ASSEMBLER WOOD Clinical Support [facility] On[facility] [address] [place] [phone] Discharge Disposition: Discharged to home or Selfcare 10/23/2024 9:20 AM TOY ASSEMBLER WOOD Clinical Support [facility] Oncology Services [address] [place] [phone] Discharge Disposition: Discharged to home or Selfcare 10/24/2024 1:00 PM TOY ASSEMBLER WOOD Clinical Support [facility] Oncology Services [address] [place] [phone] Discharge Disposition: Discharged to home or Selfcare documented as of this encounter Visit Diagnoses Not on filedocumented in this encounter Care Teams Card Player Relationship Specialty Start Date End Date Karson Forbes MD [address] [place] [address] PCP - General Family Medicine 06/18/24 Levi Carpenter DPM Podiatry 06/07/16 Los Perry MD [address] [phone] Consulting Physician General Surgery 06/20/24 documented as of this encounter
--- OUTSIDE RECORDS SUMMARY | 2024-10-13 03:58 | XMS_ITS | Encounter Summary ---
Author Organization [facility] Address [address] [place] [address] Phone Care Team Providers Care Lot Associate Name Role Phone Levi Carpenter Mirlande DPM Unavailable [phone] Karson Forbes MD Primary Care Provider [phone] Los Perry MD Unavailable Reason for Visit * Reason Comments Follow-up Encounter Details Date Type Department Care Team (Late st Contact Info) Description 08/13/2024 11:20 AM DEVOPS SOLUTIONS ARCHITECT Office Visit [facility] Oncology Services [address] [place] [phone] Cruzito Orr MD [address] [place] [address] Urinary tract infection without hematuria, site unspecified [...] Sign Reading Time Taken Comments Blood Pressure 123/79 08/13/2024 11:23 AM DEVOPS SOLUTIONS ARCHITECT Pulse 79 08/13/2024 11:23 AM DEVOPS SOLUTIONS ARCHITECT Temperature 36.7 ??C (98 ??F) 08/13/2024 11:23 AM DEVOPS SOLUTIONS ARCHITECT Respiratory Rate 20 08/13/2024 11:23 AM DEVOPS SOLUTIONS ARCHITECT Oxygen Saturation 99% 08/13/2024 11:23 AM DEVOPS SOLUTIONS ARCHITECT Inhaled Oxygen Concentration - - Weight 64.5 kg (142 lb 1.6 oz) 08/13/2024 11:23 AM DEVOPS SOLUTIONS ARCHITECT Height 154.9 cm (5' 1 ) 08/13/2024 11:23 AM DEVOPS SOLUTIONS ARCHITECT Body Mass Index 26.85 08/13/2024 11:23 AM DEVOPS SOLUTIONS ARCHITECT documented in this encounter Progress Notes * Barbara Reed - 08/13/2024 11:20 AM CST Outpatient Hem/Onc Progress Note PROGRESS NOTE Mirtha Cherry is a 59 y.o. female seen today for follow up of invasive high- grade papillary urothelial carcinoma. Patient requests to be called Johanna. Johanna is here today ambulating without support after attempting to start treatment with Carbo AUC5 plus Gemcitabine 1000 mg/m2 every 21 days on 07/04/24. During treatment approximately 10 minutes after infusing Emend patient experienced reaction prompting infusion to be stopped. She is currently antibiotic course with Bactrim BID for 7 days after positive UA on 08/12/24, cultures pending. Johanna reports improvement in dysuria, urgency, and flank pain since starting antibiotic and OTC Phenazopyridine. Johanna reports most treatment side effects occurringafter CD8, reporting rolling stomach nausea and increased fatigue. She reports rolling stomach occurring in morning with improvement in symptom after ingesting crackers. Johanna reports trying to alternate Ondansetron and Prochlorperazine in lieu of Olanzapine to improve nausea with constipation developing causing exacerbation of hemorrhoidal irritation. Patient reports nausea persisting after receiving CD8, questioning if she can receive Civanti after each treatment to prevent stomach upset. ECOG PERFORMANCE STATUS: DIAGNOSIS/TREATMENT HISTORY: Invasive high-grade [...] Uteroscope on 04/18/[address] Houston at [facility] which revealed papillary lesions in the mid upper and lower pole of the left renal pelvis. On May 17, 2024 she underwent an R0 left nephro ureterectomy revealing a 2.3 cm high-grade papillary urothelial carcinoma arising in the renal pelvis and invading the parenchyma, pathologic T3 N0=Stage III with lymphovascular invasion and associated CIS. She returned to [facility] on05/21/24 with complaints of SOB [...] reduced dose of Gemcitabine at 750 mg/m2 Reviewed patients past medical, surgical, social, and family history. No outpatient medications have been marked as taking for the 08/13/24 encounter (Appointment) with Cruzito Orr MD. Allergies as of 08/13/2024 - Reviewed 07/09/2024 Allergen Reaction Noted Iodine Itching 05/10/2018 Adhesive tape Itching, Unknown, and Other (see Comments) 06/07/2016 Betadine [povidone iodine] Itching 02/17/2017 Codeine Nausea and Unknown 06/07/2016 Emend [fosaprepitant dimeglumine] Anaphylaxis 07/04/2024 REVIEW OF SYSTEMS Review of Systems Constitutional: [...] DATA: Lab Results Component Value Date WBC 3.29 (L) 08/07/2024 RBC 3.17 (L) 08/07/2024 HEMOGLOBIN 10.0 (L) 08/07/2024 MCV 92.7 08/07/2024 MCH 31.5 08/07/2024 MCHC 34.0 08/07/2024 PLATELETCNT 214 08/07/2024 RDW 14.8 08/07/2024 LYMPHOCYTES 66.3 (H) 08/07/2024 RELEOS 0.3 08/07/2024 RELBAS 0.3 08/07/2024 ANC 1.00 (L) 08/07/2024 MONOCYTES 0.09 (L) 08/07/2024 EOSINOPHILS 0.01 08/07/2024 BASOPHILS 0.01 08/07/2024 Lab Results Component Value Date SODIUM 135 (L) 08/07/2024 POTASSIUM 4.3 08/07/2024 CHLORIDE 105 08/07/2024 ANIONGAP 8.3 08/07/2024 GLUCOSE 91 08/07/2024 BUN 19 08/07/2024 CREATININE 1.05 (H) 08/07/2024 TOTALPROTEIN 6.3 08/07/2024 ALBUMIN 4.0 08/07/2024 CALCIUM 10.2 08/07/2024 SGPTALT 33 08/07/2024 ALKALINEPHO 73 08/07/2024 06/17/24 LABS OSH: CBC WBC9.0 HGB14.0 YYX187 CMP K+5.1 Cr1.11 Ca+10.0 T.bili0.3 Alk Zyka255 ALT25 AST18 05/17/24 SURGICAL PATHOLOGY REPORT OSH: [...] foci of (history of previous core biopsies, [id number]). Lymph nodes, right axillary sentinel, excision: - [...] every 6hours as needed for nausea. 3. Continue Bactrim BID for 7 day course for UTI diagnosed on 08/12/24. Will call to update if new antibiotic course needs sent based on culture from UA. 4. Continue OTC Stool softener and Gas-X [...] specialists for management of chronic medical condition. Follow up in 4 weeks The patient was given an opportunity to ask questions, and all questions answered to patient's satisfaction. Patient verbalizes understanding of the plan as outlined above. The documentation for this visit was completed by Barbara Reed acting as a scribe for Cruzito Muro MD. 08/13/2024, 10:46 AM DEVOPS SOLUTIONS ARCHITECT PS SOLUTIONS ARCHITECT documented in this encounter Miscellaneous Notes * Interdisciplinary - Ceci Allan - 08/13/2024 11:20 AM CST Patient states she started antibiotics (Macrobid) for a UTI yesterday and symptoms have more or less subsided. Reports mild vaginal and abdominal discomfort. Pain score is 0. PS SOLUTIONS ARCHITECT * Interdisciplinary - Ceci Allan - 08/13/2024 11:20 AM CST AVS printed. Patient will follow up in 4 weeks with chemotherapy every 2 weeks on and 1 week off. Patient declined AVS as she will check her MyChart for scheduliing. PS SOLUTIONS ARCHITECT documented in this encounter Plan of Treatment Upcoming Encounters Date Type Department Care Team (Late st Contact Info) Description 10/16/2024 10:40 AM DEVOPS SOLUTIONS ARCHITECT Office Visit [facility] On[facility] Services [address] [place] [phone] Cruzito Orr MD [address] [place] [address] Discharge Disposition: Discharged to home or Selfcare 10/16/2024 1:20 PM DEVOPS SOLUTIONS ARCHITECT Clinical Support [facility] Oncology Services [address] [place] [phone] Discharge Disposition: Discharged to home or Selfcare 10/17/2024 1:00 PM DEVOPS SOLUTIONS ARCHITECT Clinical Support [facility] Oncology Services [address] [place] [phone] Discharge Disposition: Discharged to home or Selfcare 10/23/2024 9:20 AM DEVOPS SOLUTIONS ARCHITECT Clinical Support [facility] Oncology Services [address] [place] [phone] Discharge Disposition: Discharged to home or Selfcare 10/24/2024 1:00 PM DEVOPS SOLUTIONS ARCHITECT Clinical Support [facility] Oncology Services [address] [place] [phone] Discharge Disposition: Discharged to home or Selfcare documented as of this encounter Visit Diagnoses Diagnosis Urinary tract infection without hematuria, site unspecified- Primary documented in this encounter Care Teams Lot Associate Relationship Specialty Start Date End Date Karson Forbes MD [address] [place] [address] PCP - General Family Medicine 06/18/24 Levi Carpenter DPM Podiatry 06/07/16 Los Perry MD [address] [phone] Consulting Physician General Surgery 06/20/24 documented as of this encounter
--- OUTSIDE RECORDS SUMMARY | 2024-10-13 03:58 | XMS_ITS | Encounter Summary ---
Author Organization [facility] Address [address] [place] [place] [address] Phone Care Team Providers Care Lining Mechanic Name Role Phone Levi Carpenter DPM Unavailable [phone] Karson Forbes MD Primary Care Provider [phone] Los Perry MD Unavailable Encounter Details Date Type Department Care Team (Late st Contact Info) Description 09/03/2024 8:30 AM DESKTOP PUBLISHING SPECIALIST Clinical Support [facility] Oncology Services [address] [place] [phone] Cruzito Orr MD [address] [place] [address] Urothelial cancer (HCC) (Primary Dx) Discharge Disposition: [...] - Inhaled Oxygen Concentration - - Weight 64.4 kg (141 lb 14.4 oz) 09/03/2024 7:00 AM DESKTOP PUBLISHING SPECIALIST Height - - Body Mass Index 26.81 08/18/2024 9:49 PM DESKTOP PUBLISHING SPECIALIST documented in this encounter Miscellaneous Notes * Interdisciplinary - Chauncey Osborn RN - 09/03/2024 8:30 AM CST Pt ambulated to lab room. Pt states she is eating and drinking well. Encouraged protein intake to fill in gaps. Pt states she still has lightheadedness at times and one bout of diarrhea and vomiting the night before last but it was short and not typical for her. She thinks it could have been something she ate. Port accessed x1 attempt. Flushed easily with NS and with good blood return. Labs collected per MD orders. Heparin flushed per protocol. Port deaccessed and site covered with gauze and paper tape. Pt tolerated well and left in stable condition. TOP PUBLISHING SPECIALIST TOP PUBLISHING SPECIALIST documented in this encounter Plan of Treatment Upcoming Encounters Date Type Department Care Team (Late st Contact Info) Description 10/16/2024 10:40 AM DESKTOP PUBLISHING SPECIALIST Office Visit [facility] Oncology Services [address] [place] [phone] Cruzito Orr MD [address] [place] [address] Discharge Disposition: Discharged to home or Selfcare 10/16/2024 1:20 PM DESKTOP PUBLISHING SPECIALIST Clinical Support [facility] Oncology Services [address] [place] [phone] Discharge Disposition: Discharged to home or Selfcare 10/17/2024 1:00 PM DESKTOP PUBLISHING SPECIALIST Clinical Support [facility] Oncology Services [address] [place] [phone] Discharge Disposition: Discharged to home or Selfcare 10/23/2024 9:20 AM DESKTOP PUBLISHING SPECIALIST Clinical Support [facility] Oncology Services [address] [place] [phone] Discharge Disposition: Discharged to home or Selfcare 10/24/2024 1:00 PM DESKTOP PUBLISHING SPECIALIST Clinical Support [facility] Oncology Services [address] [place] [phone] Discharge Disposition: Discharged to home or Selfcare documented as of this encounter Procedures Procedure Name Priority Date/Time Associated Diagnosis Comments CBC WITH AUTO DIFFERENTIAL STAT 09/03/2024 8:53 AM DESKTOP PUBLISHING SPECIALIST Urothelial cancer (HCC) CMP (COMPREHENSIVE METABOLIC PANEL) STAT 09/03/2024 8:53 AM DESKTOP PUBLISHING SPECIALIST Urothelial cancer (HCC) COMPLETE BLOOD COUNT (CBC) WITH DIFF STAT 09/03/2024 8:53 AM DESKTOP PUBLISHING SPECIALIST Urothelial cancer (HCC) documented in this encounter Results * (ABNORMAL) CBC WITH AUTO DIFFERENTIAL (09/03/2024 8:53 AM DESKTOP PUBLISHING SPECIALIST) WBC 4.07 4.00 - 12.00 10(3)/mcL 09/03/2024 9:38 AM DESKTOP PUBLISHING SPECIALIST [facility] RBC 2.66(L) 3.80 - 5.30 10(6)/mcL 09/03/2024 9:38 AM DESKTOP PUBLISHING SPECIALIST [facility] HEMOGLOBIN (HGB) 8.9(L) 12.0 - 15.8 g/dL 09/03/2024 9:38 AM DESKTOP PUBLISHING SPECIALIST [facility] HEMATOCRIT (HCT) 26.2(L) 36.0 - 47.0 % 09/03/2024 9:38 AM DESKTOP PUBLISHING SPECIALIST [facility] MCV 98.5(H) 82.0 - 96.0 fL 09/03/2024 9:38 AM [facility] MCH 33.5 26.0 - 34.0 pg 09/03/2024 9:38 AM [facility] MCHC 34.0 31.0 - 36.0 g/dL 09/03/2024 9:38 AM [facility] PLATELET COUNT 134(L) 140 - 440 10(3)/[facility] 09/03/2024 9:38 AM [facility] RDW 19.9(H) 11.8 - 15.5 % 09/03/2024 9:38 AM [facility] MPV 9.3(L) 9.7 - 12.4 fL 09/03/2024 9:38 AM [facility] NEUTROPHILS 49.2 47.0 - 73.0 % 09/03/2024 9:38 AM [facility] LYMPHOCYTES 48.2(H) 18.0 - 42.0 % 09/03/2024 9:38 AM [facility] MONOCYTES 1.7(L) 4.0 - 12.0 % 09/03/2024 9:38 AM [facility] EOSINOPHILS 0.7 0.0 - 5.0 % 09/03/2024 9:38 AM [facility] BASOPHILS 0.2 0.0 - 1.0 % 09/03/2024 9:38 AM [facility] ABSOLUTE NEUTROPHILS 2.00 1.60 - 7.70 10(3)/[facility] 09/03/2024 9:38 AM [facility] ABSOLUTE LYMPHOCYTES 1.96 1.30 - 3.20 10(3)/[facility] 09/03/2024 9:38 AM [facility] ABSOLUTE MONOCYTES 0.07(L) 0.20 - 1.00 10(3)/[facility] 09/03/2024 9:38 AM [facility] ABSOLUTE EOSINOPHIL 0.03 0.00 - 0.40 10(3)/[facility] 09/03/2024 9:38 AM [facility] ABSOLUTE BASOPHILS 0.01 0.00 - 0.10 10(3)/mcL 09/03/2024 9:38 AM DESKTOP PUBLISHING SPECIALIST [facility] NRBC PER 100 WBC 0 09/03/20 9:38 AM [facility] RESULTS ARE CONSISTENT WITH PERIPHERAL SMEAR REVIEW Yes 09/03/2024 9:38 AM [facility] Blood Sub-Q Port Venou s Access Device (Medi-Port, Implanted Port) / Unknown 09/03/2024 8:53 AM DESKTOP PUBLISHING SPECIALIST 09/03/2024 8:53 AM DESKTOP PUBLISHING SPECIALIST Narrative [facility] - 09/03/2024 9:38 AM DESKTOP PUBLISHING SPECIALIST Anisocytosis us Cruzito Orr MD HEMATOLOGY ORDERABLES Fi nal Result [facility] [address] [place] [address] * (ABNORMAL) CMP (COMPREHENSIVE METABOLIC PANEL) (09/03/2024 8:53 AM DESKTOP PUBLISHING SPECIALIST) SODIUM 137 136 - 145 mmol/L 09/03/2024 9:32 AM [facility] POTASSIUM 4.1 3.5 - 5.1 mmol/L 09/03/2024 9:32 AM [facility] CHLORIDE 108(H) 98 - 107 mmol/L 09/03/2024 9:32 AM [facility] CO2, VENOUS 20(L) 22 - 30 mmol/L 09/03/2024 9:32 AM [facility] ANION GAP 13.1 <18.0 mmol/L 09/03/2024 9:32 AM [facility] GLUCOSE 96 70 - 99 mg/dL 09/03/2024 9:32 AM [facility] BUN 18 10 - 20 mg/dL 09/03/2024 9:32 AM [facility] CREATININE, BLOOD 1.09(H) 0.60 - 1.00 mg/dL 09/03/2024 9:32 AM [facility] BUN/CREATININE RATIO 17 12 - 20 ratio 09/03/2024 9:32 AM [facility] TOTAL PROTEIN 6.0(L) 6.3 - 8.2 g/dL 09/03/2024 9:32 AM [facility] ALBUMIN 3.8 3.5 - 5.0 g/dL 09/03/2024 9:32 AM [facility] A/G RATIO 1.7 1.0 - 2.2 09/03/2024 9:32 AM [facility] CALCIUM 8.6(L) 8.7 - 10.5 mg/dL 09/03/2024 9:32 AM [facility] T BILI 0.5 0.2 - 1.2 mg/dL 09/03/2024 9:32 AM [facility] SGOT (AST) 34 5 - 34 U/L 09/03/2024 9:32 AM [facility] SGPT (ALT) 49 0 - 55 U/L 09/03/2024 9:32 AM [facility] ALKALINE PHOSPHATASE 65 40 - 150 U/L 09/03/2024 9:32 AM [facility] IS THE PATIENT REQUIRED TO BE FASTING? No 09/03/2024 9:32 AM [facility] GFR, ESTIMATED 58(L) >=60 09/03/2024 9:32 AM [facility] Comment: Creatinine Clearance is the preferred criteria for selecting drug dose adjustments in renally impaired patients. ??The GFR is provided as additional pertinent clinical information. GFR is reported in mL/min/1.73 sq m. Calculation based on the Chronic Kidney Disease Epidemiology Collaboration (CKD- EPI) equation refit without adjustment for race. GFR, EST. >60 >=60 024 9:32 AM [facility] GFR, EST. NONAFRICAN 51(L) >=60 09/03/2024 9:32 AM [facility] Blood Sub-Q Port Venou s Access Device (Medi-Port, Implanted Port) / Unknown 09/03/2024 8:53 AM DESKTOP PUBLISHING SPECIALIST 09/03/2024 8:53 AM DESKTOP PUBLISHING SPECIALIST Cruzito Orr MD CHEMISTRY ORDERABLES Fin al Result [facility] [address] [place] [address] documented in this encounter Visit Diagnoses Diagnosis Urothelial cancer (HCC)- Primary Malignant neoplasm of other specified sites of urinary organs documented in this encounter Administered Medications Inactive Administered Medications - up to 3 most recent administrations Medication Order MAR Action Action Date Dose Rate Site Heparin Na (Pork) Lock Flsh PF SOLN 50 Units 50 Units, Intravenous, PRN, Starting on Mon09/03/24 at 0828, Until Mon09/03/24 at 1127, Line CareIndications:Urothelial cancer (HCC) Given 09/03/2024 8:53 AM DESKTOP PUBLISHING SPECIALIST 50 Units documented in this encounter Care Teams Lining Mechanic Relationship Specialty Start Date End Date Karson Forbes MD [address] [place] [address] PCP - General Family Medicine 06/18/24 Levi Carpenter DPM Podiatry 06/07/16 Los Perry MD [address] [phone] Consulting Physician General Surgery 06/20/24 documented as of this encounter
--- OUTSIDE RECORDS SUMMARY | 2024-10-13 03:58 | XMS_ITS | Encounter Summary ---
Author Organization [facility] Address [address] [facility] [place] [address] Phone Care Team Providers Care Waste Duster Name Role Phone Levi Carpenter Mirlande DPM Unavailable [phone] Karson Forbes MD Primary Care Provider [phone] Los Perry MD Unavailable Reason for Visit * Episode Based Medications (Routine) - Pending Review Specialty Diagnoses / Procedures Referred By Contac t Referred To Contact Diagnoses Urothelial cancer (HCC) Cruzito Orr MD [address] [place] [address] Phone: tel: fax: [facility] Oncology Services [address] [place] [address] Phone: tel: fax: Referral ID Status Reason Start Date Expiration Date V isits Requested Visits Authorized [id number] Pending Review 06/18/2024 1 30 Encounter Details Date Type Department Care Team (Latest Contact Info) Description 09/04/2024 1:00 PM AUTOMATION AND CONTROL ENGINEER Clinical Support [facility] Oncology Services [address] [place] [phone] Cruzito Orr MD [address] [place] [address] Urothelial cancer (HCC) (Primary Dx); Anemia associated [...] Sign Reading Time Taken Comments Blood Pressure 119/66 09/04/2024 1:00 PM AUTOMATION AND CONTROL ENGINEER Pulse 92 09/04/2024 1:00 PM AUTOMATION AND CONTROL ENGINEER Temperature 36.6 ??C (97.8 ??F) 09/04/2024 1:00 PM CS T Respiratory Rate 16 09/04/2024 1:00 PM AUTOMATION AND CONTROL ENGINEER Oxygen Saturation 100% 09/04/2024 1:00 PM AUTOMATION AND CONTROL ENGINEER Inhaled Oxygen Concentration - - Weight 64.4 kg (141 lb 15.6 oz) 09/04/2024 1:00 PM AUTOMATION AND CONTROL ENGINEER Height - - Body Mass Index 26.83 08/18/2024 9:49 PM AUTOMATION AND CONTROL ENGINEER documented in this encounter Miscellaneous Notes * Interdisciplinary - Whitley Rodriguez RN - 09/04/2024 1:00 PM CST Patient to treatment bay. Plan of care for the day reviewed. VS obtained. Pt questioned with GAGE Cohen what she could do to prevent a UTI. Recommended hydration with water and cranberry juice. Pt also asking since hemoglobin dropped from 9.3 to 8.9 from last week if her Retacrit dose could beadjusted and per Dr. Orr it is too soon for dose to be adjusted. Usually 3-4 doses before we increase. Pt made aware. Pt port accessed per company policy, flushed without difficulty. Site secured with dressing. Pt medicated without incident. At completion of infusion, site flushed with NS and heparin and port de-accessed. Site secured with gauze and paper tape. Pt medicated by injection. Site secured with bandaid. Pt left in safe disposition. MATION AND CONTROL ENGINEER documented in this encounter Plan of Treatment Upcoming Encounters Date Type Department Care Team (Late st Contact Info) Description 10/16/2024 10:40 AM AUTOMATION AND CONTROL ENGINEER Office Visit [facility] Oncology Services [address] [place] [phone] Cruzito Orr MD [address] [place] [phone] Discharge Disposition: Discharged to home or Selfcare 10/16/2024 1:20 PM AUTOMATION AND CONTROL ENGINEER Clinical Support [facility] Oncology Services [address] [place] [phone] Discharge Disposition: Discharged to home or Selfcare 10/17/2024 1:00 PM AUTOMATION AND CONTROL ENGINEER Clinical Support [facility] Oncology Services [address] [place] [phone] Discharge Disposition: Discharged to home or Selfcare 10/23/2024 9:20 AM AUTOMATION AND CONTROL ENGINEER Clinical Support [facility] Oncology Services [address] [place] [phone] Discharge Disposition: Discharged to home or Selfcare 10/24/2024 1:00 PM AUTOMATION AND CONTROL ENGINEER Clinical Support [facility] Oncology Services [address] [place] [phone] Discharge Disposition: Discharged to home or Selfcare documented as of this encounter Visit Diagnoses Diagnosis Urothelial cancer (HCC)- Primary Malignant neoplasm of other specified sites of urinary organs 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 documented in this encounter Administered Medications Inactive Administered Medications - up to 3 most recent administrations Medication Order MAR Action Action Date Dose Rate Site 0.9 % sodium chloride solution at 50 mL/hr, Intravenous, CONTINUOUS, Starting on Mon09/04/24 at 1400, Until Mon09/04/24 at 1826, 250mL bagIndications:Urothe lial cancer (HCC) New Bag 09/04/2024 2:08 PM AUTOMATION AND CONTROL ENGINEER 50 mL/hr aprepitant (CINVANTI) injection 130 mg 130 mg, Intravenous, ONCE, 1 dose, On Mon09/04/24 at 1400Indications:Uroth elial cancer (HCC) Given 09/04/2024 2:15 PM AUTOMATION AND CONTROL ENGINEER 130 mg dexamethasone (DECADRON) injection 8 mg 8 mg, Intravenous, ONCE, 1 dose, On Mon09/04/24 at 1400Indications:Uroth elial cancer (HCC) Given 09/04/2024 2:10 PM AUTOMATION AND CONTROL ENGINEER 8 mg epoetin daniel-EPBX (RETACRIT) injection 40,000 Units 40,000 Units, Subcutaneous, ONCE, 1 dose, On Mon09/04/24 at 1330Indications:Anemi a associated with chemotherapy Given 09/04/2024 2:58 PM AUTOMATION AND CONTROL ENGINEER 40,000 Units Right Lateral Upper Arm gemcitabine 1,650 mg in sodium chloride 0.9 % 250 mL chemo infusion 1,650 mg (1,000 mg/m2 ? 1.65 m2 Treatment Plan BSA from Recorded weight), Intravenous, ONCE, 1 dose, On Mon09/04/24 at 1400, Administer over 30 MinutesIndications:Ur othelial cancer (HCC) New Bag 09/04/2024 2:53 PM AUTOMATION AND CONTROL ENGINEER 1,650 mg Heparin Na (Pork) Lock Flsh PF SOLN 50 Units 50 Units, Intravenous, PRN, Starting on Mon09/04/24 at 1334, Until Mon09/04/24 at 1826, Line Care, Line care per [facility].Indications:Urot helial cancer (HCC) Given 09/04/2024 3:36 PM AUTOMATION AND CONTROL ENGINEER 50 Units ondansetron (ZOFRAN) injection 8 mg 8 mg, Intravenous, ONCE, 1 dose, On Mon09/04/24 at 1400Indications:Uroth elial cancer (HCC) Given 09/04/2024 2:08 PM AUTOMATION AND CONTROL ENGINEER 8 mg documented in this encounter Care Teams Waste Duster Relationship Specialty Start Date End Date Karson Forbes MD [address] [place] [address] PCP - General Family Medicine 06/18/24 Levi Carpneter DPM Podiatry 06/07/16 Los Perry MD #[address] [phone] Consulting Physician General Surgery 06/20/24 documented as of this encounter
--- OUTSIDE RECORDS SUMMARY | 2024-10-13 03:58 | XMS_ITS | Encounter Summary ---
Author Organization [facility] Care Team Providers Care Print Producer Name Role Phone Levi Carpenter DPM Unavailable [phone] Karson Forbes MD Primary Care Provider [phone] Los Perry MD Unavailable Encounter Details Date Type Department Care Team (Latest Contact Info) Description 09/18/2024 Travel Social History Tobacco Use Types Packs/Day [...] Contact Info) Description 10/16/2024 10:40 AM BUSINESS LOAN PROCESSOR Office Visit [facility] Oncology Services [address] [place] [phone] Cruzito Orr MD [address] [place] [address] Discharge Disposition: Discharged to home or Selfcare 10/16/2024 1:20 PM BUSINESS LOAN PROCESSOR Clinical Support [facility] Oncology Services [address] [place] [phone] Discharge Disposition: Discharged to home or Selfcare 10/17/2024 1:00 PM BUSINESS LOAN PROCESSOR Clinical Support [facility] Oncology Services [address] [place] [phone] Discharge Disposition: Discharged to home or Selfcare 10/23/2024 9:20 AM BUSINESS LOAN PROCESSOR Clinical Support [facility] Oncology Services [address] [place] [phone] Discharge Disposition: Discharged to home or Selfcare 10/24/2024 1:00 PM BUSINESS LOAN PROCESSOR Clinical Support [facility] Oncology Services [address] [place] [phone] Discharge Disposition: Discharged to home or Selfcare documented as of this encounter Visit Diagnoses Not on filedocumented in this encounter Care Teams Print Producer Relationship Specialty Start Date End Date Karson Forbes MD [address] [place] [address] PCP - General Family Medicine 06/18/24 Levi Carpenter DPM Podiatry 06/07/16 Los Perry MD [address] [phone] Consulting Physician General Surgery 06/20/24 documented as of this encounter
--- OUTSIDE RECORDS SUMMARY | 2024-10-13 03:58 | XMS_ITS | Encounter Summary ---
Author Organization [facility] Address [address] [facility] [place] [address] Phone Care Team Providers Care Client Development Director Name Role Phone Levi Carpenter DPM Unavailable [phone] Karson Forbes MD Primary Care Provider [phone] Los Perry MD Unavailable [phone] Encounter Details Date Type Department Care Team (Late st Contact Info) Description 09/25/2024 1:00 PM MANAGEMENT TRAINER Clinical Support [facility] Oncology Services [address] [place] [phone] Cruzito Orr MD [address] [place] [address] Urothelial cancer (HCC) Discharge Disposition: Discharged to [...] this encounter Miscellaneous Notes * Interdisciplinary - Rola Sears RN - 09/25/2024 1:00 PM MANAGEMENT TRAINER Pt ambulated back to lab room. Discussed labs needed for the day, verbalized understanding. Labs drawn, gauze and coband placed. Pt concerned of recent blood counts r/t chemotherapy and retacrit injections. Informed pt labs would be assessed and if platelets continue to be low tx will be held and will discuss retacrit dose with Dr. Orr pending CBC. Pt verbalized understanding. Ambulated out oflab room in stable condition. GEMENT TRAINER documented in this encounter Plan of Treatment Upcoming Encounters Date Type Department Care Team (Late st Contact Info) Description 10/16/2024 10:40 AM MANAGEMENT TRAINER Office Visit [facility] Oncology Services [address] [place] [address] Cruzito Orr MD [address] [place] [address] Discharge Disposition: Discharged to home or Selfcare 10/16/2024 1:20 PM MANAGEMENT TRAINER Clinical Support [facility] Oncology Services [address] [place] [phone] Discharge Disposition: Discharged to home or Selfcare 10/17/2024 1:00 PM MANAGEMENT TRAINER Clinical Support [facility] Oncology Services [address] [place] [phone] Discharge Disposition: Discharged to home or Selfcare 10/23/2024 9:20 AM MANAGEMENT TRAINER Clinical Support [facility] Oncology Services [address] [place] [address] Discharge Disposition: Discharged to home or Selfcare 10/24/2024 1:00 PM MANAGEMENT TRAINER Clinical Support [facility] Oncology Services [address] [place] [phone] Discharge Disposition: Discharged to home or Selfcare documented as of this encounter Procedures Procedure Name Priority Date/Time Associated Diagnosis Comments CBC WITH AUTO DIFFERENTIAL STAT 09/25/2024 1:01 PM MANAGEMENT TRAINER Urothelial cancer (HCC) CMP (COMPREHENSIVE METABOLIC PANEL) STAT 09/25/2024 1:01 PM MANAGEMENT TRAINER Urothelial cancer (HCC) COMPLETE BLOOD COUNT (CBC) WITH DIFF STAT 09/25/2024 1:01 PM MANAGEMENT TRAINER Urothelial cancer (HCC) documented in this encounter Results * (ABNORMAL) CBC WITH AUTO DIFFERENTIAL (09/25/2024 1:01 PM MANAGEMENT TRAINER) WBC 4.29 4.00 - 12.00 10(3)/mcL 09/25/2024 2:13 PM [facility] RBC 2.60(L) 3.80 - 5.30 10(6)/mcL 09/25/2024 2:13 PM [facility] HEMOGLOBIN (HGB) 9.3(L) 12.0 - 15.8 g/dL 09/25/2024 2:13 PM [facility] HEMATOCRIT (HCT) 28.1(L) 36.0 - 47.0 % 09/25/2024 2:13 PM [facility] MCV 108.1(H) 82.0 - 96.0 fL 09/25/2024 2:13 PM [facility] MCH 35.8(H) 26.0 - 34.0 pg 09/25/2024 2:13 PM [facility] MCHC 33.1 31.0 - 36.0 g/dL 09/25/2024 2:13 PM [facility] PLATELET COUNT 69(L) 140 - 440 10(3)/mcL 09/25/2024 2:13 PM [facility] RDW 24.1(H) 11.8 - 15.5 % 09/25/2024 2:13 PM [facility] MPV 11.1 9.7 - 12.4 fL 09/25/2024 2:13 PM [facility] NEUTROPHILS 36.1(L) 47.0 - 73.0 % 09/25/2024 2:13 PM [facility] LYMPHOCYTES 52.0(H) 18.0 - 42.0 % 09/25/2024 2:13 PM [facility] MONOCYTES 11.0 4.0 - 12.0 % 09/25/2024 2:13 PM [facility] EOSINOPHILS 0.7 0.0 - 5.0 % 09/25/2024 2:13 PM [facility] BASOPHILS 0.2 0.0 - 1.0 % 09/25/2024 2:13 PM [facility] ABSOLUTE NEUTROPHILS 1.55(L) 1.60 - 7.70 10(3)/[facility] 09/25/2024 2:13 PM [facility] ABSOLUTE LYMPHOCYTES 2.23 1.30 - 3.20 10(3)/[facility] 09/25/2024 2:13 PM [facility] ABSOLUTE MONOCYTES 0.47 0.20 - 1.00 10(3)/[facility] 09/25/2024 2:13 PM [facility] ABSOLUTE EOSINOPHIL 0.03 0.00 - 0.40 10(3)/[facility] 09/25/2024 2:13 PM [facility] ABSOLUTE BASOPHILS 0.01 0.00 - 0.10 10(3)/[facility] 09/25/2024 2:13 PM [facility] NRBC PER 100 WBC 1 09/25/20 2:13 PM [facility] RESULTS ARE CONSISTENT WITH PERIPHERAL SMEAR REVIEW Yes 09/25/2024 2:13 PM [facility] RBC MORPHOLOGY CONSISTENT WITH INDICES Yes 09/25/2024 2:13 PM [facility] Blood Venipuncture / Unknown 09/25/2024 1:01 PM MANAGEMENT TRAINER 09/25/2024 1:02 PM MANAGEMENT TRAINER us Cruzito Orr MD HEMATOLOGY ORDERABLES Fi nal Result [facility] [address] [place] [address] * (ABNORMAL) CMP (COMPREHENSIVE METABOLIC PANEL) (09/25/2024 1:01 PM MANAGEMENT TRAINER) SODIUM 136 136 - 145 mmol/L 09/25/2024 2:01 PM MANAGEMENT TRAINER [facility] POTASSIUM 4.4 3.5 - 5.1 mmol/L 09/25/2024 2:01 PM [facility] CHLORIDE 106 98 - 107 mmol/L 09/25/2024 2:01 PM [facility] CO2, VENOUS 20(L) 22 - 30 mmol/L 09/25/2024 2:01 PM MANAGEMENT TRAINER [facility] ANION GAP 14.4 <18.0 mmol/L 09/25/2024 2:01 PM MANAGEMENT TRAINER [facility] GLUCOSE 105(H) 70 - 99 mg/dL 09/25/2024 2:01 PM [facility] BUN 9(L) 10 - 20 mg/dL 09/25/2024 2:01 PM [facility] CREATININE, BLOOD 1.22(H) 0.60 - 1.00 mg/dL 09/25/2024 2:01 PM [facility] BUN/CREATININE RATIO 7(L) 12 - 20 ratio 09/25/2024 2:01 PM [facility] TOTAL PROTEIN 6.9 6.3 - 8.2 g/dL 09/25/2024 2:01 PM [facility] ALBUMIN 4.3 3.5 - 5.0 g/dL 09/25/2024 2:01 PM [facility] A/G RATIO 1.7 1.0 - 2.2 09/25/2024 2:01 PM [facility] CALCIUM 9.0 8.7 - 10.5 mg/dL 09/25/2024 2:01 PM MANAGEMENT TRAINER [facility] T BILI 0.3 0.2 - 1.2 mg/dL 09/25/2024 2:01 PM MANAGEMENT TRAINER [facility] SGOT (AST) 19 5 - 34 U/L 09/25/2024 2:01 PM [facility] SGPT (ALT) 20 0 - 55 U/L 09/25/2024 2:01 PM MANAGEMENT TRAINER [facility] ALKALINE PHOSPHATASE 83 40 - 150 U/L 09/25/2024 2:01 PM [facility] IS THE PATIENT REQUIRED TO BE FASTING? No 09/25/2024 2:01 PM [facility] GFR, ESTIMATED 51(L) >=60 09/25/2024 2:01 PM [facility] Comment: Creatinine Clearance is the preferred criteria for selecting drug dose adjustments in renally impaired patients. ??The GFR is provided as additional pertinent clinical information. GFR is reported in mL/min/1.73 sq m. Calculation based on the Chronic Kidney Disease Epidemiology Collaboration (CKD- EPI) equation refit without adjustment for race. GFR, EST. 54(L) >=60 024 2:01 PM MANAGEMENT TRAINER [facility] GFR, EST. NONAFRICAN 45(L) >=60 09/25/2024 2:01 PM [facility] Blood Venipuncture / Unknown 09/25/2024 1:01 PM MANAGEMENT TRAINER 09/25/2024 1:02 PM MANAGEMENT TRAINER Cruzito Orr MD CHEMISTRY ORDERABLES Fin al Result [facility] [address] [place] [address] documented in this encounter Visit Diagnoses Diagnosis Urothelial cancer (HCC) Malignant neoplasm of other specified sites of urinary organs documented in this encounter Care Teams Client Development Director Relationship Specialty Start Date End Date Karson [place] [address] [address] PCP - General Family Medicine 06/18/24 Levi Carpenter DPM Podiatry 06/07/16 Los Perry MD [address] [phone] Consulting Physician General Surgery 06/20/24 documented as of this encounter
--- OUTSIDE RECORDS SUMMARY | 2024-10-13 03:58 | XMS_ITS | Encounter Summary ---
Author Organization [facility] Care Team Providers Care Bullard Operator Name Role Phone Levi Carpenter DPM Unavailable [phone] Karson Forbes MD Primary Care Provider [phone] Los Perry MD Unavailable Encounter Details Date Type Department Care Team (Latest Contact Info) Description 08/12/2024 Travel Social History Tobacco Use Types Packs/Day [...] st Contact Info) Description 10/16/2024 10:40 AM BOX WORKER Office Visit [facility] Oncology Services [address] [place] [phone] Cruzito Orr MD [address] [place] [address] Discharge Disposition: Discharged to home or Selfcare 10/16/2024 1:20 PM BOX WORKER Clinical Support [facility] Oncology Services [address] [place] [phone] Discharge Disposition: Discharged to home or Selfcare 10/17/2024 1:00 PM BOX WORKER Clinical Support [facility] Oncology Services [address] [place] [phone] Discharge Disposition: Discharged to home or Selfcare 10/23/2024 9:20 AM BOX WORKER Clinical Support [facility] Oncology Services [address] [place] [phone] Discharge Disposition: Discharged to home or Selfcare 10/24/2024 1:00 PM BOX WORKER Clinical Support [facility] Oncology Services [address] [place] [phone] Discharge Disposition: Discharged to home or Selfcare documented as of this encounter Visit Diagnoses Not on filedocumented in this encounter Care Teams Bullard Operator Relationship Specialty Start Date End Date Karson Forbes MD [address] [place] [address] PCP - General Family Medicine 06/18/24 Levi Carpenter DPM Podiatry 06/07/16 Los Perry MD #[address] [phone] Consulting Physician General Surgery 06/20/24 documented as of this encounter
--- OUTSIDE RECORDS SUMMARY | 2024-10-13 03:58 | XMS_ITS | Encounter Summary ---
Author Organization [facility] Address [address] [facility] [place] [address] Phone Care Team Providers Care Dextrine Mixer Name Role Phone Levi Carpenter DPM Unavailable [phone] Karson Forbes MD Primary Care Provider [phone] Los Perry MD Unavailable Encounter Details Date Type Department Care Team (Latest Contact Info) Description 09/12/2024 8:30 AM FACULTY HEAD Clinical Support [facility] Oncology Services [address] [place] [phone] Cruzito Orr MD [address] [place] [address] Anemia associated with chemotherapy (Primary Dx); Urothelial [...] Sign Reading Time Taken Comments Blood Pressure 113/70 09/12/2024 12:20 PM FACULTY HEAD Pulse 63 09/12/2024 12:20 PM FACULTY HEAD Temperature 36.7 ??C (98 ??F) 09/12/2024 12:20 PM FACULTY HEAD Respiratory Rate 16 09/12/2024 12:20 PM FACULTY HEAD Oxygen Saturation 100% 09/12/2024 11:55 AM FACULTY HEAD Inhaled Oxygen Concentration - - Weight - - Height - - Body Mass Index - - documented in this encounter Miscellaneous Notes * Interdisciplinary - Whitley Rodriguez RN - 09/12/2024 8:30 AM CST Patient to treatment bay. Pt voiced questions about platelet infusion for today. Pt apprehensive about getting platelets today after going home and thinking about it last night. Pt brought up some good questions as far as her lab trends and if she is starting to recover? Should we recheck her. Pt voiced that she is sensitive to many medications and new things in her body and just doesn't want to start anything new that she doesn't absolutely need to. Discussed in length the risks of bleeding with patient and risks involved if she were to fall. Discussed weighing out benefits vs.risks but thatalso it is her decision. Pt said she has not had anymore nose bleeds since last night. Pt is also still taking Plavix. Spoke with MD, recheck CBC. If pt is 10 or over can hold on platelets but will recheck labs daily. Hold Plavix until platelets over 30. Pt amendable to this plan. Labs drawn peripherally per MD orders. Site secured with gauze and coban. Labs resulted and critical platelet of 5 called. Spoke with patient. Once again we discussed risks. Pt aware that this is a critical level. Pt amendable with proceeding with platelets today. Orders for one unit platelets per MD. Recheck CBC Monday and again on 09/18 but patient likely will not be able to get treatment on 09/19 but will see how labs are. Blood consent obtained. VS obtained. Port accessed per company policy, flushed with ease. Blood product administered without incident. VSS throughout infusion. At completion of infusion site flushed with heparin and port de-accessed. Site secured with bandaid. Pt left in safe disposition. LTY HEAD documented in this encounter Plan of Treatment Upcoming Encounters Date Type Department Care Team (Late st Contact Info) Description 10/16/2024 10:40 AM FACULTY HEAD Office Visit [facility] Oncology Services [address] [place] [address] Cruzito Orr MD [address] [place] [address] Discharge Disposition: Discharged to home or Selfcare 10/16/2024 1:20 PM FACULTY HEAD Clinical Support [facility] Oncology Services [address] [place] [phone] Discharge Disposition: Discharged to home or Selfcare 10/17/2024 1:00 PM FACULTY HEAD Clinical Support [facility] Oncology Services [address] [place] [address] Discharge Disposition: Discharged to home or Selfcare 10/23/2024 9:20 AM FACULTY HEAD Clinical Support [facility] Oncology Services [address] [place] [phone] Discharge Disposition: Discharged to home or Selfcare 10/24/2024 1:00 PM FACULTY HEAD Clinical Support [facility] Oncology Services [address] [place] [phone] Discharge Disposition: Discharged to home or Selfcare documented as of this encounter Procedures Procedure Name Priority Date/Time Associated Diagnosis Comments PREPARE PLATELETS Routine 09/13/2024 6:1 4 AM FACULTY HEAD Anemia associated with chemotherapy TRANSFUSE PLATELETS Routine 09/12/2024 1 1:05 AM FACULTY HEAD Anemia associated with chemotherapy CBC WITH AUTO DIFFERENTIAL STAT 09/12/2024 9:16 AM FACULTY HEAD Urothelial cancer (HCC) COMPLETE BLOOD COUNT (CBC) WITH DIFF STAT 09/12/2024 9:16 AM FACULTY HEAD Urothelial cancer (HCC) documented in this encounter Results * PREPARE PLATELETS (09/13/2024 6:14 AM FACULTY HEAD) Product Code [id number] [facility] Unit Number [id number] SA BLOOD BANK UNIT_ABO A [facility] UNIT_RH POS [facility] Dispense Status TRANSFUSED [facility] Blood Expiration Date [facility] Blood Type Barcode 6200 [facility] Product Volume 0 [facility] Coding System [id number] [facility] Blood us Cruzito Orr MD BLOOD BANK ORDERABLES Fi nal Result [facility] #[address] [place] [address] * Transfuse - Platelets (09/12/2024 11:59 AM FACULTY HEAD) Cruzito Orr MD NURSING TREATMENT - BLOO D ADMINISTRATION Final Result * Transfuse - Platelets (09/12/2024 11:59 AM FACULTY HEAD) us Cruzito Orr MD NURSING TREATMENT - BLOO D ADMINISTRATION Final Result * (ABNORMAL) CBC WITH AUTO DIFFERENTIAL (09/12/2024 9:16 AM FACULTY HEAD) WBC 4.71 4.00 - 12.00 10(3)/mcL 09/12/2024 10:18 AM FACULTY HEAD [facility] RBC 2.26(L) 3.80 - 5.30 10(6)/mcL 09/12/2024 10:18 AM FACULTY HEAD [facility] HEMOGLOBIN (HGB) 7.6(L) 12.0 - 15.8 g/dL 09/12/2024 10:18 AM FACULTY HEAD [facility] HEMATOCRIT (HCT) 23.1(L) 36.0 - 47.0 % 09/12/2024 10:18 AM [facility] MCV 102.2(H) 82.0 - 96.0 fL 09/12/2024 10:18 AM [facility] MCH 33.6 26.0 - 34.0 pg 09/12/2024 10:18 AM [facility] MCHC 32.9 31.0 - 36.0 g/dL 09/12/2024 10:18 AM [facility] PLATELET COUNT 5(LL) 140 - 440 10(3)/[facility] 09/12/2024 10:18 AM [facility] RDW 18.4(H) 11.8 - 15.5 % 09/12/2024 10:18 AM [facility] MPV 09/12/2024 10:18 AM [facility] NEUTROPHILS 47.8 47.0 - 73.0 % 09/12/2024 10:18 AM [facility] LYMPHOCYTES 47.1(H) 18.0 - 42.0 % 09/12/2024 10:18 AM [facility] MONOCYTES 4.7 4.0 - 12.0 % 09/12/2024 10:18 AM [facility] EOSINOPHILS 0.4 0.0 - 5.0 % 09/12/2024 10:18 AM [facility] BASOPHILS 0.0 0.0 - 1.0 % 09/12/2024 10:18 AM [facility] ABSOLUTE NEUTROPHILS 2.25 1.60 - 7.70 10(3)/[facility] 09/12/2024 10:18 AM [facility] ABSOLUTE LYMPHOCYTES 2.22 1.30 - 3.20 10(3)/mcL 09/12/2024 10:18 AM [facility] ABSOLUTE MONOCYTES 0.22 0.20 - 1.00 10(3)/mcL 09/12/2024 10:18 AM [facility] ABSOLUTE EOSINOPHIL 0.02 0.00 - 0.40 10(3)/mcL 09/12/2024 10:18 AM FACULTY HEAD [facility] ABSOLUTE BASOPHILS 0.00 0.00 - 0.10 10(3)/mcL 09/12/2024 10:18 AM FACULTY HEAD [facility] RESULTS ARE CONSISTENT WITH PERIPHERAL SMEAR REVIEW Yes 09/12/2024 10:18 AM FACULTY HEAD [facility] RBC MORPHOLOGY CONSISTENT WITH INDICES Yes 09/12/2024 10:18 AM FACULTY HEAD [facility] Blood Venipuncture / Unknown 09/12/2024 9:16 AM FACULTY HEAD 09/12/2024 9:16 AM FACULTY HEAD Cruzito Orr MD HEMATOLOGY ORDERABLES Fi nal Result [facility] [place] [address] documented in this encounter Visit Diagnoses Diagnosis 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 Urothelial cancer (HCC) Malignant neoplasm of other specified sites of urinary organs documented in this encounter Administered Medications Inactive Administered Medications - up to 3 most recent administrations Medication Order MAR Action Action Date Dose Rate Site 0.9 % sodium chloride solution at 10 mL/hr, Intravenous, ONCE, 1 dose, On Laura 09/12/24 at 0830, Use saline bag size appropriate to the number of transfusions being given. To be given with blood product transfusion to flush line prior to, between and after transfusion. Nurse to adjust rate as needed for patient.Indications:Anemia associated with chemotherapy New Bag 09/12/2024 11:01 AM FACULTY HEAD 10 mL/hr acetaminophen (TYLENOL) tablet 650 mg 650 mg, Oral, ONCE, 1 dose, On Laura 09/12/24 at 1100, Maximum dose of acetaminophen is 4000 mg from all sources in 24 hours.Indications:Anemia associated with chemotherapy,Urothelial cancer (HCC) Given 09/12/2024 10:22 AM FACULTY HEAD 650 mg diphenhydrAMINE (BENADRYL) capsule 25 mg 25 mg, Oral, ONCE, 1 dose, On Laura 09/12/24 at 1100Indications:Anemia associated with chemotherapy,Urothelial cancer (HCC) Given 09/12/2024 10:22 AM FACULTY HEAD 25 mg Heparin Na (Pork) Lock Flsh PF SOLN 50 Units 50 Units, Intravenous, ONCE, 1 dose, On Laura 09/12/24 at 1100Indications:Anemia associated with chemotherapy,Urothelial cancer (HCC) Given 09/12/2024 12:21 PM FACULTY HEAD 50 Units documented in this encounter Care Teams Dextrine Mixer Relationship Specialty Start Date End Date Karson Forbes MD [address] [place] [address] PCP - General Family Medicine 06/18/24 Levi Carpenter DPM Podiatry 06/07/16 Los Perry MD #[address] [phone] Consulting Physician General Surgery 06/20/24 documented as of this encounter
--- OUTSIDE RECORDS SUMMARY | 2024-10-13 03:58 | XMS_ITS | Encounter Summary ---
Author Organization [facility] Care Team Providers Care Maori Physiotherapist Name Role Phone Levi Carpenter DPM Unavailable [phone] Karson Forbes MD Primary Care Provider [phone] Los Perry MD Unavailable Encounter Details Date Type Department Care Team (Latest Contact Info) Description 09/11/2024 Travel Social History Tobacco Use Types Packs/Day [...] st Contact Info) Description 10/16/2024 10:40 AM BILLING ASSOCIATE Office Visit [facility] Oncology Services [address] [place] [phone] Cruzito Orr MD [address] [place] [address] Discharge Disposition: Discharged to home or Selfcare 10/16/2024 1:20 PM BILLING ASSOCIATE Clinical Support [facility] Oncology Services [address] [place] [phone] Discharge Disposition: Discharged to home or Selfcare 10/17/2024 1:00 PM BILLING ASSOCIATE Clinical Support [facility] Oncology Services [address] [place] [phone] Discharge Disposition: Discharged to home or Selfcare 10/23/2024 9:20 AM BILLING ASSOCIATE Clinical Support [facility] Oncology Services [address] [place] [phone] Discharge Disposition: Discharged to home or Selfcare 10/24/2024 1:00 PM BILLING ASSOCIATE Clinical Support [facility] Oncology Services [address] [place] [phone] Discharge Disposition: Discharged to home or Selfcare documented as of this encounter Visit Diagnoses Not on filedocumented in this encounter Care Teams Maori Physiotherapist Relationship Specialty Start Date End Date Karson Forbes MD [address] [place] [address] PCP - General Family Medicine 06/18/24 Levi Carpenter DPM Podiatry 06/07/16 Los Perry MD #[address] [phone] Consulting Physician General Surgery 06/20/24 documented as of this encounter
--- OUTSIDE RECORDS SUMMARY | 2024-10-13 03:58 | XMS_ITS | Encounter Summary ---
Author Organization [facility] Address [address] [facility] [place] [address] Phone Care Team Providers Care Waiter Name Role Phone Levi Carpenter Mirlande DPM Unavailable [phone] Karson Forbes MD Primary Care Provider [phone] Los Perry MD Unavailable Reason for Visit * Episode Based Medications (Routine) - Pending Review Specialty Diagnoses / Procedures Referred By Contac t Referred To Contact Diagnoses Urothelial cancer (HCC) Cruzito Orr MD [address] [place] [address] Phone: tel: fax: [facility] Oncology Services [address] [place] [address] Phone: tel: fax: Referral ID Status Reason Start Date Expiration Date V isits Requested Visits Authorized [id number] Pending Review 06/18/2024 30 Encounter Details Date Type Department Care Team (Latest Contact Info) Description 08/28/2024 8:30 AM INFANTRY UNIT LEADER Clinical Support [facility] Oncology Services [address] [place] [phone] Cruzito Orr MD [address] [place] [address] Anemia associated with chemotherapy (Primary Dx); Urothelial [...] Sign Reading Time Taken Comments Blood Pressure 119/75 08/28/2024 8:30 AM INFANTRY UNIT LEADER Pulse 80 08/28/2024 8:30 AM INFANTRY UNIT LEADER Temperature 36.5 ??C (97.7 ??F) 08/28/2024 8:30 AM CS T Respiratory Rate 16 08/28/2024 8:30 AM INFANTRY UNIT LEADER Oxygen Saturation 95% 08/28/2024 8:30 AM INFANTRY UNIT LEADER Inhaled Oxygen Concentration - - Weight 65.7 kg (144 lb 14.4 oz) 08/28/2024 8:30 AM INFANTRY UNIT LEADER Height - - Body Mass Index 27.38 08/18/2024 9:49 PM INFANTRY UNIT LEADER documented in this encounter Miscellaneous Notes * Interdisciplinary - Sister Gabbie Boss RN - 08/28/2024 8:30 AM INFANTRY UNIT LEADER Patient arrived and VS obtained. Port accessed per protocol x1 attempt. Flushed easily with good blood return. Labs obtained per orders. Results reviewed with patient and plan of care discussed. Patient concerns addressed with MD and orders placed. Patient agreeable to treatment today as well as starting retacrit injections. Medications given as ordered. Patient tolerated well. Port flushed with NS and heparin. Needle removed and site covered with bandaid. Patient left treatment area in stable condition. NTRY UNIT LEADER documented in this encounter Plan of Treatment Upcoming Encounters Date Type Department Care Team (Late st Contact Info) Description 10/16/2024 10:40 AM INFANTRY UNIT LEADER Office Visit [facility] Oncology Services [address] [place] [phone] [place] [address] [place] [phone] Discharge Disposition: Discharged to home or Selfcare 10/16/2024 1:20 PM INFANTRY UNIT LEADER Clinical Support [facility] Oncology Services [address] [place] [phone] Discharge Disposition: Discharged to home or Selfcare 10/17/2024 1:00 PM INFANTRY UNIT LEADER Clinical Support [facility] Oncology Services [address] [place] [phone] Discharge Disposition: Discharged to home or Selfcare 10/23/2024 9:20 AM INFANTRY UNIT LEADER Clinical Support [facility] Oncology Services [address] [place] [phone] Discharge Disposition: Discharged to home or Selfcare 10/24/2024 1:00 PM INFANTRY UNIT LEADER Clinical Support [facility] Oncology Services [address] [place] [phone] Discharge Disposition: Discharged to home or Selfcare documented as of this encounter Procedures Procedure Name Priority Date/Time Associated Diagnosis Comments VITAMIN B12 Routine 08/28/2024 10:13 AM INFANTRY UNIT LEADER Urothelial cancer (HCC) Anemia associated with chemotherapy IRON,TRANSFERN,CALC.T IBC,%SAT Routine 08/28/2024 8:51 AM INFANTRY UNIT LEADER Urothelial cancer (HCC) Anemia associated with chemotherapy FERRITIN Routine 08/28/2024 8:51 AM INFANTRY UNIT LEADER Urothelial cancer (HCC) Anemia associated with chemotherapy CBC WITH AUTO DIFFERENTIAL STAT 08/28/2024 8:41 AM INFANTRY UNIT LEADER Urothelial cancer (HCC) CMP (COMPREHENSIVE METABOLIC PANEL) STAT 08/28/2024 8:41 AM INFANTRY UNIT LEADER Urothelial cancer (HCC) COMPLETE BLOOD COUNT (CBC) WITH DIFF STAT 08/28/2024 8:41 AM INFANTRY UNIT LEADER Urothelial cancer (HCC) documented in this encounter Results * (ABNORMAL) VITAMIN B12 (08/28/2024 10:13 AM INFANTRY UNIT LEADER) [facility] VITAMIN B12 >2,000(H) 213 - 816 pg/mL 08/28/2024 11:16 AM INFANTRY UNIT LEADER [facility] Blood Sub-Q Port Venou s Access Device (Medi-Port, Implanted Port) / Unknown 08/28/2024 10:13 AM INFANTRY UNIT LEADER 08/28/2024 10:13 AM INFANTRY UNIT LEADER Cruzito Orr MD CHEMISTRY ORDERABLES Fin al Result Performing Organization Address City/[facility]/ZIP Co de Phone Number [facility] [address] [place] [address] * (ABNORMAL) FERRITIN (08/28/2024 8:51 AM INFANTRY UNIT LEADER) [facility] FERRITIN 246(H) 5 - 204 ng/mL 08/28/2024 10:20 AM INFANTRY UNIT LEADER [facility] Blood Venipuncture / Unknown 08/28/2024 8:51 AM INFANTRY UNIT LEADER 08/28/2024 9:46 AM INFANTRY UNIT LEADER Cruzito Orr MD CHEMISTRY ORDERABLES Fin al Result [facility] [address] [place] [address] * IRON,TRANSFERN,CALC.TIBC,%SAT (08/28/2024 8:51 AM INFANTRY UNIT LEADER) [facility] IRON 52 25 - 156 mcg/dL 08/28/2024 10:01 AM INFANTRY UNIT LEADER [facility] TRANSFERRIN 218 173 - 360 mg/dL 08/28/2024 10:01 AM [facility] TIBC, CALCULATED 273 265 - 497 mcg/dL 08/28/2024 10:01 AM [facility] % SATURATION * 19 15 - 62 % 08/28/2024 10:01 AM [facility] Blood Venipuncture / Unknown 08/28/2024 8:51 AM INFANTRY UNIT LEADER 08/28/2024 9:46 AM INFANTRY UNIT LEADER Cruzito Orr MD CHEMISTRY ORDERABLES Fin al Result [facility] [address] [place] [address] * (ABNORMAL) CBC WITH AUTO DIFFERENTIAL (08/28/2024 8:41 AM INFANTRY UNIT LEADER) Pathologist [facility] WBC 7.20 4.00 - 12.00 10(3)/mcL 08/28/2024 9:16 AM [facility] RBC 2.76(L) 3.80 - 5.30 10(6)/mcL 08/28/2024 9:16 AM [facility] HEMOGLOBIN (HGB) 9.3(L) 12.0 - 15.8 g/dL 08/28/2024 9:16 AM [facility] HEMATOCRIT (HCT) 27.3(L) 36.0 - 47.0 % 08/28/2024 9:16 AM [facility] MCV 98.9(H) 82.0 - 96.0 fL 08/28/2024 9:16 AM [facility] MCH 33.7 26.0 - 34.0 pg 08/28/2024 9:16 AM [facility] MCHC 34.1 31.0 - 36.0 g/dL 08/28/2024 9:16 AM [facility] PLATELET COUNT 143 140 - 440 10(3)/[facility] 08/28/2024 9:16 AM [facility] RDW 21.1(H) 11.8 - 15.5 % 08/28/2024 9:16 AM [facility] MPV 9.5(L) 9.7 - 12.4 fL 08/28/2024 9:16 AM [facility] NEUTROPHILS 49.8 47.0 - 73.0 % 08/28/2024 9:16 AM [facility] LYMPHOCYTES 38.1 18.0 - 42.0 % 08/28/2024 9:16 AM [facility] MONOCYTES 10.0 4.0 - 12.0 % 08/28/2024 9:16 AM [facility] EOSINOPHILS 1.5 0.0 - 5.0 % 08/28/2024 9:16 AM [facility] BASOPHILS 0.6 0.0 - 1.0 % 08/28/2024 9:16 AM [facility] ABSOLUTE NEUTROPHILS 3.59 1.60 - 7.70 10(3)/[facility] 08/28/2024 9:16 AM [facility] ABSOLUTE LYMPHOCYTES 2.74 1.30 - 3.20 10(3)/[facility] 08/28/2024 9:16 AM [facility] ABSOLUTE MONOCYTES 0.72 0.20 - 1.00 10(3)/[facility] 08/28/2024 9:16 AM [facility] ABSOLUTE EOSINOPHIL 0.11 0.00 - 0.40 10(3)/[facility] 08/28/2024 9:16 AM [facility] ABSOLUTE BASOPHILS 0.04 0.00 - 0.10 10(3)/[facility] 08/28/2024 9:16 AM [facility] NRBC PER 100 WBC 0 08/28/20 9:16 AM [facility] RESULTS ARE CONSISTENT WITH PERIPHERAL SMEAR REVIEW Yes 08/28/2024 9:16 AM [facility] POIKILOCYTOSIS 1+ 08/28/2024 9:16 AM INFANTRY UNIT LEADER [facility] OVALOCYTES Present 08/28/2024 9:[address] [facility] POLYCHROMASIA 1+ 08/28/2024 9:16 AM [facility] Blood Sub-Q Port Venou s Access Device (Medi-Port, Implanted Port) / Unknown 08/28/2024 8:41 AM INFANTRY UNIT LEADER 08/28/2024 8:41 AM INFANTRY UNIT LEADER Narrative [facility] - 08/28/2024 9:16 AM INFANTRY UNIT LEADER Anisocytosis us Cruzito Orr MD HEMATOLOGY ORDERABLES Fi nal Result [facility] [address] [place] [address] * (ABNORMAL) CMP (COMPREHENSIVE METABOLIC PANEL) (08/28/2024 8:41 AM INFANTRY UNIT LEADER) SODIUM 137 136 - 145 mmol/L 08/28/2024 9:08 AM [facility] POTASSIUM 4.4 3.5 - 5.1 mmol/L 08/28/2024 9:08 AM [facility] CHLORIDE 108(H) 98 - 107 mmol/L 08/28/2024 9:08 AM [facility] CO2, VENOUS 19(L) 22 - 30 mmol/L 08/28/2024 9:08 AM [facility] ANION GAP 14.4 <18.0 mmol/L 08/28/2024 9:08 AM [facility] GLUCOSE 88 70 - 99 mg/dL 08/28/2024 9:08 AM [facility] BUN 11 10 - 20 mg/dL 08/28/2024 9:08 AM [facility] CREATININE, BLOOD 0.93 0.60 - 1.00 mg/dL 08/28/2024 9:08 AM [facility] BUN/CREATININE RATIO 12 12 - 20 ratio 08/28/2024 9:08 AM [facility] TOTAL PROTEIN 6.1(L) 6.3 - 8.2 g/dL 08/28/2024 9:08 AM [facility] ALBUMIN 3.9 3.5 - 5.0 g/dL 08/28/2024 9:08 AM [facility] A/G RATIO 1.8 1.0 - 2.2 08/28/2024 9:08 AM [facility] CALCIUM 8.5(L) 8.7 - 10.5 mg/dL 08/28/2024 9:08 AM [facility] T BILI 0.2 0.2 - 1.2 mg/dL 08/28/2024 9:08 AM [facility] SGOT (AST) 16 5 - 34 U/L 08/28/2024 9:08 AM [facility] SGPT (ALT) 20 0 - 55 U/L 08/28/2024 9:08 AM [facility] ALKALINE PHOSPHATASE 76 40 - 150 U/L 08/28/2024 9:08 AM [facility] IS THE PATIENT REQUIRED TO BE FASTING? No 08/28/2024 9:08 AM [facility] GFR, ESTIMATED >60 >=60 08/28/2024 9:08 AM [facility] Comment: Creatinine Clearance is the preferred criteria for selecting drug dose adjustments in renally impaired patients. ??The GFR is provided as additional pertinent clinical information. GFR is reported in mL/min/1.73 sq m. Calculation based on the Chronic Kidney Disease Epidemiology Collaboration (CKD- EPI) equation refit without adjustment for race. GFR, EST. >60 >=60 024 9:08 AM [facility] GFR, EST. NONAFRICAN >60 >=60 08/28/2024 9:08 AM [facility] Blood Sub-Q Port Venou s Access Device (Medi-Port, Implanted Port) / Unknown 08/28/2024 8:41 AM INFANTRY UNIT LEADER 08/28/2024 8:41 AM INFANTRY UNIT LEADER Cruzito Orr MD CHEMISTRY ORDERABLES Judson al Result [facility] [address] [place] [address] documented in this encounter Visit Diagnoses Diagnosis 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 Urothelial cancer (HCC) Malignant neoplasm of other specified sites of urinary organs documented in this encounter Administered Medications Inactive Administered Medications - up to 3 most recent administrations Medication Order MAR Action Action Date Dose Rate Site 0.9 % sodium chloride solution at 50 mL/hr, Intravenous, ONCE, 1 dose, On Mon08/28/24 at 1100Indications:Uroth elial cancer (HCC) New 08/28/2024 10:47 AM INFANTRY UNIT LEADER 50 mL/hr aprepitant (CINVANTI) injection 130 mg 130 mg, Intravenous, ONCE, 1 dose, On Mon08/28/24 at 1100Indications:Uroth elial cancer (HCC) Given 08/28/2024 11:20 AM INFANTRY UNIT LEADER 130 mg CARBOplatin 372.5 mg in sodium chloride 0.9 % 250 mL chemo infusion 372.5 mg (Target AUC = 5), Intravenous, ONCE, 1 dose, On Mon08/28/24 at 1230, Administer over 30 MinutesIndications:Ur othelial cancer (HCC) New 08/28/2024 12:52 PM INFANTRY UNIT LEADER 372.5 mg dexamethasone (DECADRON) injection 12 mg 12 mg, Intravenous, ONCE, 1 dose, On Mon08/28/24 at 1100Indications:Uroth elial cancer (HCC) Given 08/28/2024 10:51 AM INFANTRY UNIT LEADER 12 mg epoetin daniel-EPBX (RETACRIT) injection 40,000 Units 40,000 Units, Subcutaneous, ONCE, 1 dose, On Mon08/28/24 at 1100Indications:Anemi a associated with chemotherapy Given 08/28/2024 10:57 AM INFANTRY UNIT LEADER 40,000 Units Right Lateral Upper Arm gemcitabine 1,320 mg in sodium chloride 0.9 % 250 mL chemo infusion 1,320 mg (800 mg/m2 ? 1.65 m2 Treatment Plan BSA from Recorded weight), Intravenous, ONCE, 1 dose, On Mon08/28/24 at 1230, Administer over 30 MinutesIndications:Ur othelial cancer (HCC) New Bag 08/28/2024 12:05 PM INFANTRY UNIT LEADER 1,320 mg Heparin Na (Pork) Lock Flsh PF SOLN 50 Units 50 Units, Intravenous, PRN, Starting on Mon08/28/24 at 1033, Until Mon08/28/24 at 1543, Line Care, Line care per [facility].Indications:Urot helial cancer (HCC) Given 08/28/2024 1:40 PM INFANTRY UNIT LEADER 50 Units OLANZapine (ZYPREXA) tablet 5 mg 5 mg, Oral, ONCE, 1 dose, On Mon08/28/24 at 1100Indications:Uroth elial cancer (HCC) Given 08/28/2024 10:49 AM INFANTRY UNIT LEADER 5 mg ondansetron (ZOFRAN) injection 8 mg 8 mg, Intravenous, ONCE, 1 dose, On Mon08/28/24 at 1100Indications:Uroth elial cancer (HCC) Given 08/28/2024 10:49 AM INFANTRY UNIT LEADER 8 mg documented in this encounter Care Teams Waiter Relationship Specialty Start Date End Date Karson Forbes MD [address] [place] [address] PCP - General Family Medicine 06/18/24 Levi Carpenter DPM Podiatry 06/07/16 Los Perry MD [address] [phone] Consulting Physician General Surgery 06/20/24 documented as of this encounter
--- OUTSIDE RECORDS SUMMARY | 2024-10-13 03:58 | XMS_ITS | Encounter Summary ---
Author Organization [facility] Address [address] [facility] [place] [address] Phone Care Team Providers Care Role Player Name Role Phone Levi Carpenter DPM Unavailable [phone] Karson Forbes MD Primary Care Provider [phone] Los Perry MD Unavailable Encounter Details Date Type Department Care Team (Latest Contact Info) Description 09/23/2024 10:30 AM COMMUNITY HEALTH COORDINATOR Clinical Support [facility] On[facility] Services [address] [place] [phone] Cruzito Orr MD [address] [place] [address] Anemia associated with chemotherapy (Primary Dx); Urothelial [...] * Interdisciplinary - Lisa Oakes RN - 09/23/2024 10:30 AM CST Pt ambulated into treatment room in stable condition. Port accessed per protocol. Flushed with easeand blood return noted. Labs drawn per MD orders. Port flushed and needle removed. Band aid placed.Pt discharged in stable condition. UNITY HEALTH COORDINATOR documented in this encounter Plan of Treatment Upcoming Encounters Date Type Department Care Team (Late st Contact Info) Description 10/16/2024 10:40 AM COMMUNITY HEALTH COORDINATOR Office Visit [facility] Oncology Services [address] [place] [phone] [place] [address] [place] [phone] Discharge Disposition: Discharged to home or Selfcare 10/16/2024 1:20 PM COMMUNITY HEALTH COORDINATOR Clinical Support [facility] Oncology Services [address] [place] [phone] Discharge Disposition: Discharged to home or Selfcare 10/17/2024 1:00 PM COMMUNITY HEALTH COORDINATOR Clinical Support [facility] Oncology Services [address] [place] [phone] Discharge Disposition: Discharged to home or Selfcare 10/23/2024 9:20 AM COMMUNITY HEALTH COORDINATOR Clinical Support [facility] Oncology Services [address] [place] [phone] Discharge Disposition: Discharged to home or Selfcare 10/24/2024 1:00 PM COMMUNITY HEALTH COORDINATOR Clinical Support [facility] Oncology Services [address] [place] [phone] Discharge Disposition: Discharged to home or Selfcare documented as of this encounter Procedures Procedure Name Priority Date/Time Associated Diagnosis Comments CBC WITH AUTO DIFFERENTIAL STAT 09/23/2024 10:25 AM COMMUNITY HEALTH COORDINATOR Urothelial cancer (HCC) COMPLETE BLOOD COUNT (CBC) WITH DIFF STAT 09/23/2024 10:25 AM COMMUNITY HEALTH COORDINATOR Urothelial cancer (HCC) documented in this encounter Results * (ABNORMAL) CBC WITH AUTO DIFFERENTIAL (09/23/2024 10:25 AM COMMUNITY HEALTH COORDINATOR) WBC 4.83 4.00 - 12.00 10(3)/[facility] 09/23/2024 11:25 AM COMMUNITY HEALTH COORDINATOR [facility] RBC 2.33(L) 3.80 - 5.30 10(6)/[facility] 09/23/2024 11:25 AM COMMUNITY HEALTH COORDINATOR [facility] HEMOGLOBIN (HGB) 8.3(L) 12.0 - 15.8 g/dL 09/23/2024 11:25 AM COMMUNITY HEALTH COORDINATOR [facility] HEMATOCRIT (HCT) 24.5(L) 36.0 - 47.0 % 09/23/2024 11:25 AM [facility] MCV 105.2(H) 82.0 - 96.0 fL 09/23/2024 11:25 AM COMMUNITY HEALTH COORDINATOR [facility] MCH 35.6(H) 26.0 - 34.0 pg 09/23/2024 11:25 AM [facility] MCHC 33.9 31.0 - 36.0 g/dL 09/23/2024 11:25 AM COMMUNITY HEALTH COORDINATOR [facility] PLATELET COUNT 51(L) 140 - 440 10(3)/[facility] 09/23/2024 11:25 AM [facility] RDW 23.0(H) 11.8 - 15.5 % 09/23/2024 11:25 AM COMMUNITY HEALTH COORDINATOR [facility] MPV 11.4 9.7 - 12.4 fL 09/23/2024 11:25 AM [facility] NEUTROPHILS 40.8(L) 47.0 - 73.0 % 09/23/2024 11:25 AM COMMUNITY HEALTH COORDINATOR [facility] LYMPHOCYTES 47.6(H) 18.0 - 42.0 % 09/23/2024 11:25 AM COMMUNITY HEALTH COORDINATOR [facility] MONOCYTES 10.4 4.0 - 12.0 % 09/23/2024 11:25 AM [facility] EOSINOPHILS 1.0 0.0 - 5.0 % 09/23/2024 11:25 AM COMMUNITY HEALTH COORDINATOR [facility] BASOPHILS 0.2 0.0 - 1.0 % 09/23/2024 11:25 AM COMMUNITY HEALTH COORDINATOR [facility] ABSOLUTE NEUTROPHILS 1.97 1.60 - 7.70 10(3)/[facility] 09/23/2024 11:25 AM [facility] ABSOLUTE LYMPHOCYTES 2.30 1.30 - 3.20 10(3)/[facility] 09/23/2024 11:25 AM [facility] ABSOLUTE MONOCYTES 0.50 0.20 - 1.00 10(3)/[facility] 09/23/2024 11:25 AM [facility] ABSOLUTE EOSINOPHIL 0.05 0.00 - 0.40 10(3)/[facility] 09/23/2024 11:25 AM [facility] ABSOLUTE BASOPHILS 0.01 0.00 - 0.10 10(3)/[facility] 09/23/2024 11:25 AM [facility] NRBC PER 100 WBC 0 09/23/20 24 11:25 AM [facility] RESULTS ARE CONSISTENT WITH PERIPHERAL SMEAR REVIEW Yes 09/23/2024 11:25 AM [facility] RBC MORPHOLOGY CONSISTENT WITH INDICES Yes 09/23/2024 11:25 AM [facility] Blood Sub-Q Port Venou s Access Device (Medi-Port, Implanted Port) / Unknown 09/23/2024 10:25 AM COMMUNITY HEALTH COORDINATOR 09/23/2024 10:25 AM COMMUNITY HEALTH COORDINATOR us Cruzito Ernestine Orr MD HEMATOLOGY ORDERABLES Fi nal Result [facility] [address] [place] [address] documented in this encounter Visit Diagnoses Diagnosis [...] Units 50 Units, Intravenous, PRN, Starting on Mon09/23/24 at 1017, Until Mon09/23/24 at 1228, Line CareIndications:Anemia associated with chemotherapy Given 09/23/2024 10:28 AM COMMUNITY HEALTH COORDINATOR 50 Units documented in this encounter Care Teams Role Player Relationship Specialty Start Date End Date Karson Forbes MD [address] [place] [address] PCP - General Family Medicine 06/18/24 Levi Carpenter DPM Podiatry 06/07/16 Los Perry MD [address] [phone] Consulting Physician General Surgery 06/20/24 documented as of this encounter
--- OUTSIDE RECORDS SUMMARY | 2024-10-13 03:58 | XMS_ITS | Encounter Summary ---
Author Organization [facility] Address [address] [place] [address] Phone Care Team Providers Care Director Business Intelligence Name Role Phone Levi Carpenter Mirlande DPM Unavailable [phone] Karson Forbes MD Primary Care Provider [phone] Los Perry MD Unavailable [phone] Encounter Details Date Type Department Care Team (Late st Contact Info) Description 08/17/2024 Telephone [facility] Oncology Services [address] [place] [phone] Cruzito Orr MD [address] [place] [address] Social History Tobacco Use Types Packs/Day Years [...] st Contact Info) Description 10/16/2024 10:40 AM NURSE EXTERN Office Visit [facility] Oncology Services [address] [place] [phone] [place] [address] [place] [phone] Discharge Disposition: Discharged to home or Selfcare 10/16/2024 1:20 PM NURSE EXTERN Clinical Support [facility] Oncology Services [address] [place] [phone] Discharge Disposition: Discharged to home or Selfcare 10/17/2024 1:00 PM NURSE EXTERN Clinical Support [facility] Oncology Services [address] [place] [phone] Discharge Disposition: Discharged to home or Selfcare 10/23/2024 9:20 AM NURSE EXTERN Clinical Support [facility] Oncology Services [address] [place] [phone] Discharge Disposition: Discharged to home or Selfcare 10/24/2024 1:00 PM NURSE EXTERN Clinical Support [facility] Oncology Services [address] [place] [phone] Discharge Disposition: Discharged to home or Selfcare documented as of this encounter Visit Diagnoses Not on filedocumented in this encounter Care Teams Director Business Intelligence Relationship Specialty Start Date End Date Karson Forbes MD [address] [place] [address] PCP - General Family Medicine 06/18/24 Levi Carpenter DPM Podiatry 06/07/16 Los Perry MD [address] [phone] Consulting Physician General Surgery 06/20/24 documented as of this encounter
--- OUTSIDE RECORDS SUMMARY | 2024-10-13 03:59 | XMS_ITS | Encounter Summary ---
Author Organization [facility] Address [address] [place] [address] Phone Care Team Providers Care Neck Skewer Name Role Phone Levi Carpenter Mirlande DPM Unavailable [phone] Karson Forbes MD Primary Care Provider [phone] Los Perry MD Unavailable Reason for Visit * Reason Comments Follow-up Encounter Details Date Type Department Care Team (Late st Contact Info) Description 07/09/2024 3:20 PM CDT Office Visit [facility] Oncology Services [address] [place] [phone] Cruzito Orr MD [address] [place] [address] Stage 3 chronic kidney disease, unspecified whether stage 3a or 3b CKD (HCC) (Primary Dx); Urothelial cancer (HCC); Cognitive impairment Discharge Disposition: Discharged to home or Selfcare [...] Sign Reading Time Taken Comments Blood Pressure 140/82 07/09/2024 3:33 PM CDT Pulse 66 07/09/2024 3:33 PM CDT Temperature 36.3 ??C (97.3 ??F) 07/09/2024 3:33 PM CD T Respiratory Rate 18 07/09/2024 3:33 PM CDT Oxygen Saturation 99% 07/09/2024 3:33 PM CDT Inhaled Oxygen Concentration - - Weight 64.4 kg (142 lb) 07/09/2024 3:33 PM CDT Height 154.9 cm (5' 1 ) 07/09/2024 3:33 PM CDT Body Mass Index 26.83 07/09/2024 3:33 PM CDT documented in this encounter Progress Notes * Barbara Reed - 07/09/2024 3:20 PM CDT Outpatient Hem/Onc Progress Note PROGRESS NOTE Mirtha [...] experienced reaction prompting infusion to be stopped. Johanna denies nausea occurring after treatment; only using Olanzapine 5 mgnightly for 3 days after treatment. Patient denies taking Ondansetron or Prochlorperazine for nausea. Johanna reports left sided abdominal pain occurring after treatment that was improved with Gas-x and bowel movement. Patient reports mild constipation occurring after treatment contributing to her abdominal pains. She reports improvement in stool consistency after starting OTC Stool softener and Gas-X. Johanna denies any new numbness or tingling in the tips of the fingers or toes. She reports taste is s table without change since starting treatment. Patient reports difficulties tolerating large meals in the evening due to stomach upset. She reports appetite remains stable besides that. Johanna reports development of dry mouth for first few days after C1D1 with improvement after. Patient denies lingering symptom today. Johanna complains of brain fog with sensation that brain power is being utilized by subconscious leaving her with little thinking power for conscious thoughts. Patient reports forgettingnext sentence during conversation with sister which is new since starting treatment. Johanna reports blotchy discoloration on the bilateral forearm with cobblestone texture appreciated. Reports veins aremore prominent without heat, erythema, or signs of infection. ECOG PERFORMANCE STATUS: DIAGNOSIS/TREATMENT HISTORY: Invasive high-grade [...] Uteroscope on 04/18/[address] Houston at [facility] which revealed papillary lesions in the mid upper and lower pole of the left renal pelvis. On May 17, 2024 she underwent an R0 left nephro ureterectomy revealing a 2.3 cm high-grade papillary urothelial carcinoma arising in the renal pelvis and invading the parenchyma, pathologic T3 N0=Stage III with lymphovascular invasion and associated CIS. She returned to [facility] on05/21/24 with complaints of SOB after discharge from hospital on 05/20/24. Patient was admitted for pneumonia with discharge home on 05/23/24. --07/02/24 port-a-cath placement --07/04/24 C1D1 CarboAUC5 CD1 with Gemcitabine CD1/8 every 21 days for a total of 4 planned cycles if patient tolerates. Reviewed patients past medical, surgical, social, and family history. No outpatient medications have been marked as taking for the 07/09/24 encounter (Appointment) with Cruzito Orr MD. Allergies as of 07/09/2024 - Reviewed 07/02/2024 Allergen Reaction Noted Iodine Itching 05/10/2018 Adhesive [...] DATA: Lab Results Component Value Date WBC 10.90 02/10/2017 RBC 4.79 02/10/2017 HEMOGLOBIN 14.5 02/10/2017 HEMATOCRIT 42.9 02/10/2017 MCV 89.6 02/10/2017 MCH 30.3 02/10/2017 MCHC 33.8 02/10/2017 PLATELETCNT 243 02/10/2017 RDW 13.2 02/10/2017 LYMPHOCYTES 31.0 02/10/2017 RELEOS 1.8 02/10/2017 RELBAS 0.3 02/10/2017 ANC 6.58 02/10/2017 MONOCYTES 0.71 02/10/2017 EOSINOPHILS 0.20 02/10/2017 BASOPHILS 0.03 02/10/2017 Lab Results Component Value Date SODIUM 143 02/10/2017 POTASSIUM 4.0 02/10/2017 CHLORIDE 106 02/10/2017 ANIONGAP 16.0 02/10/2017 GLUCOSE 90 02/10/2017 BUN 11 02/10/2017 CREATININE 0.78 02/10/2017 CALCIUM 9.2 02/10/2017 06/17/24 LABS OSH: CBC WBC9.0 HGB14.0 CDS242 CMP K+5.1 Cr1.11 Ca+10.0 T.bili0.3 Alk Jafs802 ALT25 AST18 05/17/24 SURGICAL PATHOLOGY REPORT OSH: [...] foci of (history of previous core biopsies, [id number]). Lymph nodes, right axillary sentinel, excision: - [...] of 4 planned cycles if patient tolerates. Reviewed patient will DISCONTINUE Olanzapine 5 mg nightly for 3 days after treatment due to mental fog since starting treatment. Patient will use Ondansetron 8 mg every 8 hours as needed for nausea with Prochlorperazine 10 mg every 6 hours as needed for break throughsymptoms. 3. Patient will have repeat CT C/A/P every 3-6 months to monitor for evidence of disease. She will have cystoscopy completed every 3 months for direct visualization of bladder for lesions. 4. Continue OTC Stool softener and Gas-X [...] shakes as needed to maintain intake. 8. Continue to follow with PCP and other specialists for management of chronic medical condition. Follow up in 5 weeks The patient was given an opportunity to ask questions, and all questions answered to patient's satisfaction. Patient verbalizes understanding of the plan as outlined above. The documentation for this visit was completed by Barbara Reed acting as a scribe for Cruzito Muro MD. 07/09/2024, 3:17 PM CDT * Cruzito Orr MD - 07/09/2024 3:20 PM CDT Outpatient Hem/Onc Progress Note PROGRESS NOTE Mirtha [...] experienced reaction prompting infusion to be stopped. Johanna denies nausea occurring after treatment; only using Olanzapine 5 mgnightly for 3 days after treatment. Patient denies taking Ondansetron or Prochlorperazine for nausea. Johanna reports left sided abdominal pain occurring after treatment that was improved with Gas-x and bowel movement. Patient reports mild constipation occurring after treatment contributing to her abdominal pains. She reports improvement in stool consistency after starting OTC Stool softener and Gas-X. Johanna denies any new numbness or tingling in the tips of the fingers or toes. She reports taste is s table without change since starting treatment. Patient reports difficulties tolerating large meals in the evening due to stomach upset. She reports appetite remains stable besides that. Johanna reports development of dry mouth for first few days after C1D1 with improvement after. Patient denies lingering symptom today. Johanna complains of brain fog with sensation that brain power is being utilized by subconscious leaving her with little thinking power for conscious thoughts. Patient reports forgettingnext sentence during conversation with sister which is new since starting treatment. Johanna reports blotchy discoloration on the bilateral forearm with cobblestone texture appreciated. Reports veins aremore prominent without heat, erythema, or signs of infection. ECOG PERFORMANCE STATUS: DIAGNOSIS/TREATMENT HISTORY: Invasive high-grade [...] Uteroscope on 04/18/[address] Houston at [facility] which revealed papillary lesions in the mid upper and lower pole of the left renal pelvis. On May 17, 2024 she underwent an R0 left nephro ureterectomy revealing a 2.3 cm high-grade papillary urothelial carcinoma arising in the renal pelvis and invading the parenchyma, pathologic T3 N0=Stage III with lymphovascular invasion and associated CIS. She returned to [facility] hospital on05/21/24 with complaints of SOB after discharge from hospital on 05/20/24. Patient was admitted for pneumonia with discharge home on 05/23/24. --07/02/24 port-a-cath placement --07/04/24 C1D1 CarboAUC5 CD1 with Gemcitabine CD1/8 every 21 days for a total of 4 planned cycles if patient tolerates. Reviewed patients past medical, surgical, social, and family history. Outpatient Medications Marked as Taking for the 07/09/24 encounter (Office Visit) with Cruzito Orr MD [...] PO) Take by mouth. Allergies as of 07/09/2024 - Reviewed 07/09/2024 Allergen Reaction Noted Iodine [...] DATA: Lab Results Component Value Date WBC 6.13 07/09/2024 RBC 3.67 (L) 07/09/2024 HEMOGLOBIN 11.6 (L) 07/09/2024 HEMATOCRIT 33.7 (L) 07/09/2024 MCV 91.8 07/09/2024 MCH 31.6 07/09/2024 MCHC 34.4 07/09/2024 PLATELETCNT 183 07/09/2024 RDW 12.9 07/09/2024 LYMPHOCYTES 37.7 07/09/2024 RELEOS 1.3 07/09/2024 RELBAS 0.3 07/09/2024 ANC 3.66 07/09/2024 MONOCYTES 0.06 (L) 07/09/2024 EOSINOPHILS 0.08 07/09/2024 BASOPHILS 0.02 07/09/2024 Lab Results Component Value Date SODIUM 135 (L) 07/09/2024 POTASSIUM 4.0 07/09/2024 CHLORIDE 108 (H) 07/09/2024 ANIONGAP 9.0 07/09/2024 GLUCOSE 101 (H) 07/09/2024 BUN 15 07/09/2024 CREATININE 1.12 (H) 07/09/2024 TOTALPROTEIN 6.3 07/09/2024 ALBUMIN 3.8 07/09/2024 CALCIUM 8.9 07/09/2024 SGPTALT 26 07/09/2024 ALKALINEPHO 71 07/09/2024 06/17/24 LABS OSH: CBC WBC9.0 HGB14.0 SKN235 CMP K+5.1 Cr1.11 Ca+10.0 T.bili0.3 Alk Tmta660 ALT25 AST18 05/17/24 SURGICAL PATHOLOGY REPORT OSH: [...] foci of (history of previous core biopsies, [id number]). Lymph nodes, right axillary sentinel, excision: - [...] stent placement in the iliac arteries Plan: 1. Reviewed above clinical data including recent symptoms, labs, imaging and pathology results withpatient . Tolerating adjuvant chemo well. Getting some memory issues which could be due to olanzapine. Will d.c from next chemo. Discussed diagnosis, treatment options and prognostic implication of disease. 2. Continue treatment with CarboAUC5 CD1 with Gemcitabine CD1/8 every 21 days for a total of 4 planned cycles if patient tolerates. Reviewed patient will DISCONTINUE Olanzapine 5 mg nightly for 3 days after treatment due to mental fog since starting treatment. Patient will use Ondansetron 8 mg every 8 hours as needed for nausea with Prochlorperazine 10 mg every 6 hours as needed for break throughsymptoms. Will give cinvanti instead of emend given rxn 3. Patient will have repeat CT C/A/P every 3-6 months to monitor for evidence of disease. She will have cystoscopy completed every 3 months for direct visualization of bladder for lesions. 4. Continue OTC Stool softener and Gas-X [...] shakes as needed to maintain intake. 8. Continue to follow with PCP and other specialists for management of chronic medical condition. Follow up in 5 weeks The patient was given an opportunity to ask questions, and all questions answered to patient's satisfaction. Patient verbalizes understanding of the plan as outlined above. The documentation for this visit was completed by Barbara Reed acting as a scribe for Cruzito Muro MD. 07/09/2024, 7:14 PM CDT The documentation recorded by the scribe was completed while in the exam room with me and the patient. The documentation accurately reflects the service I personally performed and the decisions made by me. I have confirmed and edited the documentation as necessary. Cruzito Orr MD 07/09/2024, 7:15 PM CDT documented in this encounter Miscellaneous Notes * Interdisciplinary - Mandy Batista CMA - 07/09/2024 3:20 PM CDT Pt here for follow up appt no falls no pain appetite is good * Interdisciplinary - Mandy Batista CMA - 07/09/2024 3:20 PM CDT Pt given AVS infusion nurses making appt times documented in this encounter Plan of Treatment Upcoming Encounters Date Type Department Care Team (Late st Contact Info) Description 10/16/2024 10:40 AM WAX PATTERN ASSEMBLER Office Visit [facility] Oncology Services [address] [place] [phone] [place] [address] [place] [address] Discharge Disposition: Discharged to home or Selfcare 10/16/2024 1:20 PM WAX PATTERN ASSEMBLER Clinical Support [facility] Oncology Services [address] [place] [phone] Discharge Disposition: Discharged to home or Selfcare 10/17/2024 1:00 PM WAX PATTERN ASSEMBLER Clinical Support [facility] Oncology Services [address] [place] [phone] Discharge Disposition: Discharged to home or Selfcare 10/23/2024 9:20 AM WAX PATTERN ASSEMBLER Clinical Support [facility] Oncology Services [address] [place] [phone] Discharge Disposition: Discharged to home or Selfcare 10/24/2024 1:00 PM WAX PATTERN ASSEMBLER Clinical Support [facility] Oncology Services [address] [place] [address] Discharge Disposition: Discharged to home or Selfcare documented as of this encounter Visit Diagnoses Diagnosis Stage 3 chronic kidney disease, unspecified whether stage 3a or 3b CKD (HCC)- Primary Urothelial cancer (HCC) Malignant neoplasm of other specified sites of urinary organs Cognitive impairment Unspecified persistent mental disorders due to conditions classified elsewhere documented in this encounter Care Teams Neck Skewer Relationship Specialty Start Date End Date Karson Forbes MD [address] [place] [address] PCP - General Family Medicine 06/18/24 Levi Carpenter DPM Podiatry 06/07/16 Los Perry MD [address] [phone] Consulting Physician General Surgery 06/20/24 documented as of this encounter
--- OUTSIDE RECORDS SUMMARY | 2024-10-13 03:59 | XMS_ITS | Encounter Summary ---
Author Organization [facility] Address [address] [place] [address] Phone Care Team Providers Care Insurance Loss Assessor Name Role Phone Levi Carpenter Mirlande DPM Unavailable Karson Forbes MD Primary Care Provider Los Perry MD Unavailable Encounter Details Date Type Department Care Team (Late st Contact Info) Description 07/24/2024 Telephone [facility] Oncology Services [address] [place] [phone] Cruzito Orr MD [address] [place] [address] Social History Tobacco Use Types Packs/Day Years [...] Telephone Encounter - Chauncey Osborn RN - 07/24/2024 4:29 PM CDT Informed pt holding treatment this week per Kirby due to platelets of 54. Educated on higher risk of bleeding. Pt verbalized understanding. documented in this encounter Plan of Treatment Upcoming Encounters Date Type Department Care Team (Late st Contact Info) Description 10/16/2024 10:40 AM ASTROBIOLOGIST Office Visit [facility] Oncology Services [address] [place] [phone] Cruzito Orr MD [address] [place] [phone] Discharge Disposition: Discharged to home or Selfcare 10/16/2024 1:20 PM ASTROBIOLOGIST Clinical Support [facility] Oncology Services [address] [place] [phone] Discharge Disposition: Discharged to home or Selfcare 10/17/2024 1:00 PM ASTROBIOLOGIST Clinical Support [facility] Oncology Services [address] [place] [phone] Discharge Disposition: Discharged to home or Selfcare 10/23/2024 9:20 AM ASTROBIOLOGIST Clinical Support [facility] Oncology Services [address] [place] [phone] Discharge Disposition: Discharged to home or Selfcare 10/24/2024 1:00 PM ASTROBIOLOGIST Clinical Support [facility] Oncology Services [address] [place] [phone] Discharge Disposition: Discharged to home or Selfcare documented as of this encounter Visit Diagnoses Not on filedocumented in this encounter Care Teams Insurance Loss Assessor Relationship Specialty Start Date End [place] [address] [place] [address] PCP - General Family Medicine 06/18/24 Levi Carpenter DPM Podiatry 06/07/16 Los Perry MD [address] [phone] Consulting Physician General Surgery 06/20/24 documented as of this encounter
--- OUTSIDE RECORDS SUMMARY | 2024-10-13 03:59 | XMS_ITS | Encounter Summary ---
Author Organization [facility] Address [address] [place] [address] Phone Care Team Providers Care Semiconductor Equipment Technician Name Role Phone Pauline, Levi Nogueira DPLolly Unavailable [phone] Karson Forbes MD Primary Care Provider [phone] Los Perry MD Unavailable [phone] Reason for Referral * Other (Routine) - Closed Specialty Diagnoses / Procedures Referred By Contac t Referred To Contact General Surgery Diagnoses Encounter for insertion of tunneled central venous catheter (CVC) with port Procedures GENERAL SURGERY PROCEDURE NC INSJ PRPH CTR VAD W/SUBQ PORT AGE 5 YR/> Los Perry MD [address] [address] Phone: tel: fax: Referral ID Status Reason Start Date Expiration Date Visits Re quested Visits Authorized [id number] Closed 06/24/2024 1 1 Reason for Visit * Reason Comments New Patient * Consult, Test & Initiate Treatment (Less Than 1 Week) - Closed Specialty Diagnoses / Procedures Referred By Denton t Referred To Contact General Surgery Diagnoses Urothelial cancer (HCC) Cruzito Orr MD [address] [place] [address] Phone: tel: fax: [facility] [address] [address] Phone: tel: fax: Referral ID Status Reason Start Date Expiration Date Visits Re quested Visits Authorized [id number] Closed 06/18/2024 1 1 Encounter Details Date Type Department Care Team (Late st Contact Info) Description 06/24/2024 2:00 PM CDT Office Visit [facility] [address] [address] Cruzito Orr MD [address] [place], [place] [id number] Los Perry MD #[address] [address] Encounter for insertion of tunneled central venous catheter (CVC) with port (Primary Dx); Urothelial cancer (HCC) Discharge Disposition: [...] Sign Reading Time Taken Comments Blood Pressure 132/70 06/24/2024 1:50 PM CDT Pulse 66 06/24/2024 1:50 PM CDT Temperature 36.3 ??C (97.3 ??F) 06/24/2024 1:50 PM CD T Respiratory Rate - - Oxygen Saturation 99% 06/24/2024 1:50 PM CDT Inhaled Oxygen Concentration - - Weight 62.6 kg (138 lb) 06/24/2024 1:50 PM CDT Height 154.9 cm (5' 1 ) 06/24/2024 1:50 PM CDT Body Mass Index 26.07 06/24/2024 1:50 PM CDT documented in this encounter Patient Instructions * Attachments The following attachments cannot be sent through Care Everywhere. * Implanted Port Insertion Care After (Vietnamese) * Implanted Port Insertion (Vietnamese) documented in this encounter Progress Notes * Los Perry MD - 06/24/2024 2:00 PM CDT HISTORY AND PHYSICAL Assessment: New consult for port insertion due to urothelial carcinoma Peripheral vascular disease currently on Plavix COPD GERD Smoker PLAN: Smoking cessation recommended. A very detailed discussion was held with the patient regarding insertion of port. I explained in detail the patient how a port is placed we reviewed the steps of the procedure as well as the role of fluoroscopy and ultrasound. We discussed at length the risk of surgery which include but not limitedto bleeding, infection, injury to other structures including carotid artery, long, need for furthersurgery, etc.. Main benefits of the surgery will be port insertion for easy access to the vascular system. Alternatives is to use peripheral veins. Patient is aware that he will get a chest x-ray at the end of the procedure to confirm the correct placement of the port. We will schedule this in the near future. Will hold Plavix for 5 days prior to procedure. We will obtain cardiology clearance. Total time spent on this encounter on this date of service, including pre-visit review of separately obtained history, [id number] interaction performing medically appropriate physical exam, patientcounseling/education, interpretation of diagnostic results, care coordination and documentation was30 minutes. Subjective: HPI: Mirtha Cherry is a 59 y.o. female who I was asked to see by KARSON FORBES MD for insertion MediPort for chemotherapy due to urothelial cancer. She is a very pleasant lady sent to me by our medical oncologist Dr. Orr with recent diagnosis of high-grade papillary urothelial carcinoma. She needs MediPort insertion for chemotherapy treatment. She has history of COPD, GERD, hemorrhoids, hyperlipidemia, obesity and peripheral vascular disease. She is currently on Plavix. No prior history of neck surgeries or previous port insertions. No history of DVT. Patient Active Problem List Diagnosis Date Noted Urothelial cancer (HCC) 06/18/2024 Stage 3 chronic kidney disease (HCC) 06/18/2024 Conductive hearing loss, bilateral 06/18/2024 Pain of left foot 07/10/2017 Left leg swelling 06/02/2017 Neuritis of left foot 06/02/2017 Swelling of foot joint, left 06/02/2017 GERD (gastroesophageal reflux disease) 11/25/2016 Dyslipidemia 11/25/2016 PVD (peripheral vascular disease) ([facility]) 11/25/2016 Closed displaced fracture of proximal phalanx of lesser toe of right foot 06/07/2016 Other specified peripheral vascular diseases ([facility]) 06/07/2016 Hallux valgus (acquired), right foot 06/07/2016 Hallux valgus (acquired), left foot 06/07/2016 Tailor's bunion of left foot 06/07/2016 Allergies Allergen Reactions Iodine Itching Adhesive Tape Itching, Unknown and Other (see Comments) blisters Betadine [Povidone Iodine] Itching Codeine Nausea and Unknown Cannot display prior to admission medications because the patient has not been admitted in this contact. Current Outpatient Medications on File Prior to Visit Medication Sig Dispense Refill amoxicillin-clavulanate (AUGMENTIN) 875-125 MG Tablet Take 1 Tablet by mouth. atorvastatin (LIPITOR) 80 MG Tablet Take 40 mg by mouth daily. clopidogrel (PLAVIX) 75 MG Tablet Take 75 mg by mouth daily. Coenzyme Q10 400 MG Capsule Take by mouth daily. metoprolol tartrate (LOPRESSOR) 50 MG Tablet Take 50 mg by mouth daily. Multiple Vitamin (MULTIVITAMIN PO) Take by mouth. Probiotic Product (PROBIOTIC DAILY PO) Take by mouth. SUMAtriptan (IMITREX) 50 MG Tablet Take 1 Tab by mouth as needed. 11 No current facility-administered medications on file prior to visit. 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 Hyperlipidemia 10/09/2005 Menopause 10/09/2011 Migraine Obesity PVD (peripheral vascular disease) (HCC) Past Surgical History: Procedure Laterality Date BUNIONECTOMY Right 11/25/2016 Procedure: RAMIREZ/JESSA BUNIONECTOMY AND TAILORS BUNIONECTOMY RIGHT FOOT; Surgeon: Levi Carpenter DPM; Location: [facility]; Service: BUNIONECTOMY Left 02/17/2017 Procedure: BUNIONECTOMY Gilberto STATONARS; Surgeon: Levi Carpenter DPM; Location: [facility]; Service: CARDIAC CATHERIZATION 10/09/2015 CHOLECYSTECTOMY 1998 GALLBLADDER SURGERY 07/09/1998 laparoscopic MASTECTOMY BILATERAL Bilateral 05/28/2018 OTHER SURGICAL HISTORY 01/2008, 07/2005, 2015 circulatory stent implants(4) [place] OTHER SURGICAL HISTORY 10/09/2004 polyps removed from vocal cords Family History Problem Relation Age of Onset Stroke Mother Diabetes Mother Heart Disease Mother Cancer Father esophageal Hypertension Father Social History Socioeconomic History Marital status: Spouse name: Not on file Number of children: Not on file Years of education: Not on file Highest education level: Not on file Occupational History Not on file Tobacco Use Smoking status: Every Day Current packs/day: 1.00 Average packs/day: 1 pack/day for 44.0 years (44.0 ttl pk-yrs) Types: Cigarettes Start date: 06/18/1980 Smokeless tobacco: Never Vaping Use Vaping status: Never Used Substance and Sexual Activity Alcohol use: No Alcohol/week: 0.0 oz Drug use: No Sexual activity: Not on file Other Topics Concern Not on file Social History Narrative Not on file Social Determinants of Health Financial Resource Needs: Low Risk (05/22/2024) Received from [facility] Overall Financial Resource Strain (CARDIA) Difficulty of Paying Living Expenses: Not hard at all Food Insecurity Needs: No Food Insecurity (05/22/2024) Received from [facility] Hunger Vital Sign Worried About Running Out of Food in the Last Year: Never true Ran Out of Food in the Last Year: Never true Transportation Needs: No Transportation Needs (05/22/2024) Received from [facility] PRAPARE - Transportation Lack of Transportation (Medical): No Lack of Transportation (Non-Medical): No Physical Activity: Not on file Stress: Not on file Social Integration: Moderately Integrated (05/22/2024) Received from [facility] Social Connection and Isolation Panel [NHANES] Frequency of Communication with Friends and Family: More than three times a week Frequency of Social Gatherings with Friends and Family: More than three times a week Attends [employer]ist Services: More than 4 times per year Active Member of Clubs or Organizations: Yes Attends Club or Organization Meetings: More than 4 times per year Marital Status: Intimate Partner Violence: Not on file Housing Stability: Low Risk (05/22/2024) Received from [facility] Housing Stability Vital Sign Unable to Pay for Housing in the Last Year: No Number of Times Moved in the Last Year: 0 Homeless in the Last Year: No Review of Systems: Review of Systems All other systems reviewed and are negative. Pertinent items are noted in HPI. All other systems were reviewed and were negative. Objective: VITALS: BP 132/70 (BP Location: Right Arm, BP Position: Sitting, BP Cuff Size: Regular) Pulse 66 Temp 97.3 ??F (36.3 ??C) (Temporal) Ht 5' 1 (1.549 m) Wt 138 lb (62.6 kg) SpO2 99% BMI 26.07 kg/m?? Physical Exam Vitals and nursing note reviewed. Constitutional: Appearance: Normal appearance. HENT: Head: Normocephalic and atraumatic. Right Ear: External ear normal. Left Ear: External ear normal. Nose: Nose normal. Mouth/Throat: Mouth: Mucous membranes are moist. Pharynx: Oropharynx is clear. Eyes: Extraocular Movements: Extraocular movements intact. Conjunctiva/sclera: Conjunctivae normal. Pupils: Pupils are equal, round, and reactive to light. Cardiovascular: Rate and Rhythm: Normal rate and regular rhythm. Pulses: Normal pulses. Heart sounds: Normal heart sounds. Pulmonary: Effort: Pulmonary effort is normal. Breath sounds: Normal breath sounds. Abdominal: General: Abdomen is flat. Palpations: Abdomen is soft. Musculoskeletal: General: Normal range of motion. Cervical back: Normal range of motion and neck supple. Skin: General: Skin is warm. Capillary Refill: Capillary refill takes less than 2 seconds. Neurological: General: No focal deficit present. Mental Status: She is alert and oriented to person, place, and time. Mental status is at baseline. Psychiatric: Mood and Affect: Mood normal. Behavior: Behavior normal. Thought Content: Thought content normal. Judgment: Judgment normal. Data Review: No results for input(s): ALBUMIN , TBIL , BILIRUBIN , ALKALINEPHO , SGOTAST , SGPTALT , TOTALPROTEIN in the last 72 hours. Lab Results Component Value Date WBC 10.90 02/10/2017 HEMOGLOBIN 14.5 02/10/2017 HEMATOCRIT 42.9 02/10/2017 PLATELETCNT 243 02/10/2017 LDL 105 05/28/2016 SODIUM 143 02/10/2017 POTASSIUM 4.0 02/10/2017 CHLORIDE 106 02/10/2017 CREATININE 0.78 02/10/2017 BUN 11 02/10/2017 CO2VEN 25 02/10/2017 INR 0.95 06/01/2017 GLUCOSE 90 02/10/2017 I personally reviewed the above labs and radiological studies (images if available and reports), and agree with the radiologist unless stated above. By: Los Perry MD, 06/24/2024, 2:08 PM CDT Primary Care Physician: KARSON FORBES MD documented in this encounter Plan of Treatment Upcoming Encounters Date Type Department Care Team (Late st Contact Info) Description 10/16/2024 10:40 AM THREE KNIFE TRIMMER Office Visit [facility] [address] [place] [address] Cruzito Orr MD [address] [place] [address] Discharge Disposition: Discharged to home or Selfcare 10/16/2024 1:20 PM THREE KNIFE TRIMMER Clinical Support [facility] [address] [place] [address] Discharge Disposition: Discharged to home or Selfcare 10/17/2024 1:00 PM THREE KNIFE TRIMMER Clinical Support [facility] [address] [place] [address] Discharge Disposition: Discharged to home or Selfcare 10/23/2024 9:20 AM THREE KNIFE TRIMMER Clinical Support [facility] [address] [place] [address] Discharge Disposition: Discharged to home or Selfcare 10/24/2024 1:00 PM THREE KNIFE TRIMMER Clinical Support [facility] [address] [place] [address] Discharge Disposition: Discharged to home or Selfcare Scheduled Orders Name Type Priority Associated Diagnoses Orde r Schedule GENERAL SURGERY PROCEDURE Procedures Routine Encounter for insertion of tunneled central venous catheter (CVC) with port Expected: 06/24/2024, Expires: 08/23/2024 documented as of this encounter Visit Diagnoses Diagnosis Encounter for insertion of tunneled central venous catheter (CVC) with port- Primary Urothelial cancer (HCC) Malignant neoplasm of other specified sites of urinary organs documented in this encounter Care Teams Semiconductor Equipment Technician Relationship Specialty Start Date End Date Karson [place] [address] PCP - General Family Medicine 06/18/24 Levi Carpenter DPM Podiatry 06/07/16 Los Perry MD [address] [phone] Consulting Physician General Surgery 06/20/24 documented as of this encounter
--- OUTSIDE RECORDS SUMMARY | 2024-10-13 03:59 | XMS_ITS | Encounter Summary ---
Author Organization [facility] Address [address] [place] [address] Phone Care Team Providers Care Director Of Operations Support Name Role Phone Levi Carpenter DPM Unavailable [phone] Karson Forbes MD Primary Care Provider [phone] Los Perry MD Unavailable Encounter Details Date Type Department Care Team (Latest Contact Info) Description 06/26/2024 7:38 AM CDT - 06/26/2024 11:59 PM CDT Hospital Encounter [facility] [address] [place] [address] Provider, Not On File [place] Discharge Disposition: Discharged to home or Selfcare [...] on file documented as of this encounter Medications at Time of Discharge [...] Tab by mouth as needed. 11 05/09/2016 amoxicillin-clav ulanate (AUGMENTIN) 875-125 MG TabletIndication s:left ear infection Take 1 Tablet by mouth 2 times daily. Indications: left ear infection 06/24/2024 documented as of this encounter Plan of Treatment Upcoming Encounters Date Type Department Care Team (Late st Contact Info) Description 10/16/2024 10:40 AM LIFE SCIENCE TECHNICAL OFFICER Office Visit [facility] [address] [place] [phone] [place] [address] [place] [address] Discharge Disposition: Discharged to home or Selfcare 10/16/2024 1:20 PM LIFE SCIENCE TECHNICAL OFFICER Clinical Support [facility] [address] [place] [phone] Discharge Disposition: Discharged to home or Selfcare 10/17/2024 1:00 PM LIFE SCIENCE TECHNICAL OFFICER Clinical Support [facility] [address] [place] [phone] Discharge Disposition: Discharged to home or Selfcare 10/23/2024 9:20 AM LIFE SCIENCE TECHNICAL OFFICER Clinical Support [facility] [address] [place] [phone] Discharge Disposition: Discharged to home or Selfcare 10/24/2024 1:00 PM LIFE SCIENCE TECHNICAL OFFICER Clinical Support [facility] [address] [place] [phone] Discharge Disposition: Discharged to home or Selfcare documented as of this encounter Procedures Procedure Name Priority Date/Time Associated Diagnosis Comments XR REFERENCE IMAGES FOR IMAGE IMPORT Routine 06/26/2024 7:38 AM CDT documented in this encounter Results * XR REFERENCE IMAGES FOR IMAGE IMPORT (06/26/2024 7:38 AM CDT) us Not On File Provider IMG DIAGNOSTIC ORDERABLES F inal Result documented in this encounter Visit Diagnoses Not on filedocumented in this encounter Care Teams Director Of Operations Support Relationship Specialty Start Date End Date Karson Forbes MD [address] [place] [address] PCP - General Family Medicine 06/18/24 Levi Carpenter DPM Podiatry 06/07/16 Los Perry MD #[address] [address] Consulting Physician General Surgery 06/20/24 documented as of this encounter
--- OUTSIDE RECORDS SUMMARY | 2024-10-13 03:59 | XMS_ITS | Encounter Summary ---
Author Organization [facility] Address [address] [facility] [place] [address] Phone Care Team Providers Care Manager Of Care Name Role Phone Levi Carpenter DPM Unavailable [phone] Karson Forbes MD Primary Care Provider [phone] Los Perry MD Unavailable Encounter Details Date Type Department Care Team (Late st Contact Info) Description 07/09/2024 3:20 PM CDT Clinical Support [facility] Oncology Services [address] [place] [phone] Cruzito Orr MD [address] [place] [address] Urothelial cancer (HCC) (Primary Dx) Discharge Disposition: [...] encounter Miscellaneous Notes * Interdisciplinary - Chauncey Osborn, RN - 07/09/2024 3:20 PM CDT Pt ambulated to lab room. Labs drawn from port x1 attempt. Flushed easily with NS and with good blood return. Heparin flushed per protocol. Port deaccessed and site covered with bandaid. Pt toleratedwell. documented in this encounter Plan of Treatment Upcoming Encounters Date Type Department Care Team (Late st Contact Info) Description 10/16/2024 10:40 AM INJECTION OPERATOR Office Visit [facility] Oncology Services [address] [place] [phone] [place] [address] [place] [phone] Discharge Disposition: Discharged to home or Selfcare 10/16/2024 1:20 PM INJECTION OPERATOR Clinical Support [facility] Oncology Services [address] [place] [phone] Discharge Disposition: Discharged to home or Selfcare 10/17/2024 1:00 PM INJECTION OPERATOR Clinical Support [facility] Oncology Services [address] [place] [phone] Discharge Disposition: Discharged to home or Selfcare 10/23/2024 9:20 AM INJECTION OPERATOR Clinical Support [facility] Oncology Services [address] [place] [phone] Discharge Disposition: Discharged to home or Selfcare 10/24/2024 1:00 PM INJECTION OPERATOR Clinical Support [facility] Oncology Services [address] [place] [phone] Discharge Disposition: Discharged to home or Selfcare Scheduled Orders Name Type Priority Associated Diagnoses Orde r Schedule CMP (COMPREHENSIVE METABOLIC PANEL) Lab STAT Urothelial cancer (HCC) 24 Occurrences starting 07/09/2024 until 01/07/2026, 11 completed COMPLETE BLOOD COUNT (CBC) WITH DIFF Lab STAT Urothelial cancer (HCC) 24 Occurrences starting 07/09/2024 until 01/07/2026, 15 completed documented as of this encounter Procedures Procedure Name Priority Date/Time Associated Diagnosis Comments CBC WITH AUTO DIFFERENTIAL STAT 07/09/2024 3:31 PM CDT Urothelial cancer (HCC) CMP (COMPREHENSIVE METABOLIC PANEL) STAT 07/09/2024 3:31 PM CDT Urothelial cancer (HCC) COMPLETE BLOOD COUNT (CBC) WITH DIFF STAT 07/09/2024 3:31 PM CDT Urothelial cancer (HCC) documented in this encounter Results * (ABNORMAL) CMP (COMPREHENSIVE METABOLIC PANEL) (10/08/2024 8:48 AM INJECTION OPERATOR) SODIUM 133(L) 136 - 145 mmol/L 10/08/2024 9:30 AM INJECTION OPERATOR [facility] POTASSIUM 5.0 3.5 - 5.1 mmol/L 10/08/2024 9:30 AM INJECTION OPERATOR [facility] CHLORIDE 106 98 - 107 mmol/L 10/08/2024 9:30 AM INJECTION OPERATOR [facility] CO2, VENOUS 19(L) 22 - 30 mmol/L 10/08/2024 9:30 AM INJECTION OPERATOR [facility] ANION GAP 13.0 <18.0 mmol/L 10/08/2024 9:30 AM INJECTION OPERATOR [facility] GLUCOSE 139(H) 70 - 99 mg/dL 10/08/2024 9:30 AM INJECTION OPERATOR [facility] BUN 9(L) 10 - 20 mg/dL 10/08/2024 9:30 AM INJECTION OPERATOR [facility] CREATININE, BLOOD 1.26(H) 0.60 - 1.00 mg/dL 10/08/2024 9:30 AM INJECTION OPERATOR [facility] BUN/CREATININE RATIO 7(L) 12 - 20 ratio 10/08/2024 9:30 AM [facility] TOTAL PROTEIN 6.7 6.3 - 8.2 g/dL 10/08/2024 9:30 AM [facility] ALBUMIN 4.3 3.5 - 5.0 g/dL 10/08/2024 9:30 AM [facility] A/G RATIO 1.8 1.0 - 2.2 10/08/2024 9:30 AM [facility] CALCIUM 9.3 8.7 - 10.5 mg/dL 10/08/2024 9:30 AM [facility] T BILI 0.3 0.2 - 1.2 mg/dL 10/08/2024 9:30 AM [facility] SGOT (AST) 18 5 - 34 U/L 10/08/2024 9:30 AM [facility] SGPT (ALT) 18 0 - 55 U/L 10/08/2024 9:30 AM [facility] ALKALINE PHOSPHATASE 81 40 - 150 U/L 10/08/2024 9:30 AM [facility] IS THE PATIENT REQUIRED TO BE FASTING? No 10/08/2024 9:30 AM [facility] GFR, ESTIMATED 49(L) >=60 10/08/2024 9:30 AM [facility] Comment: Creatinine Clearance is the preferred criteria for selecting drug dose adjustments in renally impaired patients. ??The GFR is provided as additional pertinent clinical information. GFR is reported in mL/min/1.73 sq m. Calculation based on the Chronic Kidney Disease Epidemiology Collaboration (CKD- EPI) equation refit without adjustment for race. GFR, EST. 52(L) >=60 024 9:30 AM [facility] GFR, EST. NONAFRICAN 43(L) >=60 10/08/2024 9:30 AM [facility] Blood Sub-Q Port Venou s Access Device (Medi-Port, Implanted Port) / Unknown 10/08/2024 8:48 AM INJECTION OPERATOR 10/08/2024 8:48 AM INJECTION OPERATOR us Cruzito Orr MD CHEMISTRY ORDERABLES Fin al Result [facility] [place] [address] * (ABNORMAL) CMP (COMPREHENSIVE METABOLIC PANEL) (10/01/2024 10:16 AM INJECTION OPERATOR) SODIUM 136 136 - 145 mmol/L 10/01/2024 11:28 AM [facility] POTASSIUM 4.5 3.5 - 5.1 mmol/L 10/01/2024 11:28 AM [facility] CHLORIDE 109(H) 98 - 107 mmol/L 10/01/2024 11:28 AM [facility] CO2, VENOUS 19(L) 22 - 30 mmol/L 10/01/2024 11:28 AM [facility] ANION GAP 12.5 <18.0 mmol/L 10/01/2024 11:28 AM [facility] GLUCOSE 88 70 - 99 mg/dL 10/01/2024 11:28 AM [facility] BUN 9(L) 10 - 20 mg/dL 10/01/2024 11:28 AM [facility] CREATININE, BLOOD 1.20(H) 0.60 - 1.00 mg/dL 10/01/2024 11:28 AM [facility] BUN/CREATININE RATIO 8(L) 12 - 20 ratio 10/01/2024 11:28 AM [facility] TOTAL PROTEIN 6.4 6.3 - 8.2 g/dL 10/01/2024 11:28 AM [facility] ALBUMIN 4.1 3.5 - 5.0 g/dL 10/01/2024 11:28 AM [facility] A/G RATIO 1.8 1.0 - 2.2 10/01/2024 11:28 AM [facility] CALCIUM 8.8 8.7 - 10.5 mg/dL 10/01/2024 11:28 AM [facility] T BILI 0.3 0.2 - 1.2 mg/dL 10/01/2024 11:28 AM [facility] SGOT (AST) 17 5 - 34 U/L 10/01/2024 11:28 AM [facility] SGPT (ALT) 17 0 - 55 U/L 10/01/2024 11:28 AM [facility] ALKALINE PHOSPHATASE 74 40 - 150 U/L 10/01/2024 11:28 AM [facility] IS THE PATIENT REQUIRED TO BE FASTING? No 10/01/2024 11:28 AM [facility] GFR, ESTIMATED 52(L) >=60 10/01/2024 11:28 AM [facility] Comment: Creatinine Clearance is the preferred criteria for selecting drug dose adjustments in renally impaired patients. ??The GFR is provided as additional pertinent clinical information. GFR is reported in mL/min/1.73 sq m. Calculation based on the Chronic Kidney Disease Epidemiology Collaboration (CKD- EPI) equation refit without adjustment for race. GFR, EST. 56(L) >=60 024 11:28 AM [facility] GFR, EST. NONAFRICAN 46(L) >=60 10/01/2024 11:28 AM [facility] Blood Sub-Q Port Venou s Access Device (Medi-Port, Implanted Port) / Unknown 10/01/2024 10:16 AM INJECTION OPERATOR 10/01/2024 10:16 AM INJECTION OPERATOR Cruzito Orr MD CHEMISTRY ORDERABLES Fin al Result [facility] [place] [address] * (ABNORMAL) CMP (COMPREHENSIVE METABOLIC PANEL) (09/25/2024 1:01 PM INJECTION OPERATOR) SODIUM 136 136 - 145 mmol/L 09/25/2024 2:01 PM [facility] POTASSIUM 4.4 3.5 - 5.1 mmol/L 09/25/2024 2:01 PM [facility] CHLORIDE 106 98 - 107 mmol/L 09/25/2024 2:01 PM [facility] CO2, VENOUS 20(L) 22 - 30 mmol/L 09/25/2024 2:01 PM [facility] ANION GAP 14.4 <18.0 mmol/L 09/25/2024 2:01 PM [facility] GLUCOSE 105(H) 70 - 99 mg/dL 09/25/2024 2:01 PM [facility] BUN 9(L) 10 - 20 mg/dL 09/25/2024 2:01 PM [facility] CREATININE, BLOOD 1.22(H) 0.60 - 1.00 mg/dL 09/25/2024 2:01 PM [facility] BUN/CREATININE RATIO 7(L) 12 - 20 ratio 09/25/2024 2:01 PM [facility] TOTAL PROTEIN 6.9 6.3 - 8.2 g/dL 09/25/2024 2:01 PM [facility] ALBUMIN 4.3 3.5 - 5.0 g/dL 09/25/2024 2:01 PM [facility] A/G RATIO 1.7 1.0 - 2.2 09/25/2024 2:01 PM [facility] CALCIUM 9.0 8.7 - 10.5 mg/dL 09/25/2024 2:01 PM [facility] T BILI 0.3 0.2 - 1.2 mg/dL 09/25/2024 2:01 PM [facility] SGOT (AST) 19 5 - 34 U/L 09/25/2024 2:01 PM [facility] SGPT (ALT) 20 0 - 55 U/L 09/25/2024 2:01 PM INJECTION OPERATOR [facility] ALKALINE PHOSPHATASE 83 40 - 150 U/L 09/25/2024 2:01 PM INJECTION OPERATOR [facility] IS THE PATIENT REQUIRED TO BE FASTING? No 09/25/2024 2:01 PM INJECTION OPERATOR [facility] GFR, ESTIMATED 51(L) >=60 09/25/2024 2:01 PM INJECTION OPERATOR [facility] Comment: Creatinine Clearance is the preferred criteria for selecting drug dose adjustments in renally impaired patients. ??The GFR is provided as additional pertinent clinical information. GFR is reported in mL/min/1.73 sq m. Calculation based on the Chronic Kidney Disease Epidemiology Collaboration (CKD- EPI) equation refit without adjustment for race. GFR, EST. 54(L) >=60 2:01 PM [facility] GFR, EST. NONAFRICAN 45(L) >=60 09/25/2024 2:01 PM [facility] Blood Venipuncture / Unknown 09/25/2024 1:01 PM INJECTION OPERATOR 09/25/2024 1:02 PM INJECTION OPERATOR Cruzito Orr MD CHEMISTRY ORDERABLES Fin al Result [facility] [place] [address] * (ABNORMAL) CMP (COMPREHENSIVE METABOLIC PANEL) (09/11/2024 2:10 PM INJECTION OPERATOR) SODIUM 136 136 - 145 mmol/L 09/11/2024 3:16 PM INJECTION OPERATOR [facility] POTASSIUM 4.0 3.5 - 5.1 mmol/L 09/11/2024 3:16 PM INJECTION OPERATOR [facility] CHLORIDE 107 98 - 107 mmol/L 09/11/2024 3:16 PM [facility] CO2, VENOUS 19(L) 22 - 30 mmol/L 09/11/2024 3:16 PM INJECTION OPERATOR [facility] ANION GAP 14.0 <18.0 mmol/L 09/11/2024 3:16 PM [facility] GLUCOSE 143(H) 70 - 99 mg/dL 09/11/2024 3:16 PM [facility] BUN 13 10 - 20 mg/dL 09/11/2024 3:16 PM [facility] CREATININE, BLOOD 0.97 0.60 - 1.00 mg/dL 09/11/2024 3:16 PM [facility] BUN/CREATININE RATIO 13 12 - 20 ratio 09/11/2024 3:16 PM [facility] TOTAL PROTEIN 6.3 6.3 - 8.2 g/dL 09/11/2024 3:16 PM [facility] ALBUMIN 3.9 3.5 - 5.0 g/dL 09/11/2024 3:16 PM [facility] A/G RATIO 1.6 1.0 - 2.2 09/11/2024 3:16 PM [facility] CALCIUM 9.0 8.7 - 10.5 mg/dL 09/11/2024 3:16 PM [facility] T BILI 0.2 0.2 - 1.2 mg/dL 09/11/2024 3:16 PM [facility] SGOT (AST) 21 5 - 34 U/L 09/11/2024 3:16 PM [facility] SGPT (ALT) 30 0 - 55 U/L 09/11/2024 3:16 PM [facility] ALKALINE PHOSPHATASE 79 40 - 150 U/L 09/11/2024 3:16 PM [facility] IS THE PATIENT REQUIRED TO BE FASTING? No 09/11/2024 3:16 PM [facility] GFR, ESTIMATED >60 >=60 09/11/2024 3:16 PM [facility] Comment: Creatinine Clearance is the preferred criteria for selecting drug dose adjustments in renally impaired patients. ??The GFR is provided as additional pertinent clinical information. GFR is reported in mL/min/1.73 sq m. Calculation based on the Chronic Kidney Disease Epidemiology Collaboration (CKD- EPI) equation refit without adjustment for race. GFR, EST. >60 >=60 024 3:16 PM INJECTION OPERATOR [facility] GFR, EST. NONAFRICAN 59(L) >=60 09/11/2024 3:16 PM INJECTION OPERATOR [facility] Blood Sub-Q Port Venou s Access Device (Medi-Port, Implanted Port) / Unknown 09/11/2024 2:10 PM INJECTION OPERATOR 09/11/2024 2:10 PM INJECTION OPERATOR Cruzito Orr MD CHEMISTRY ORDERABLES [facility] al Result [facility] [place] [address] * (ABNORMAL) CMP (COMPREHENSIVE METABOLIC PANEL) (09/03/2024 8:53 AM INJECTION OPERATOR) SODIUM 137 136 - 145 mmol/L 09/03/2024 9:32 AM INJECTION OPERATOR [facility] POTASSIUM 4.1 3.5 - 5.1 mmol/L 09/03/2024 9:32 AM [facility] CHLORIDE 108(H) 98 - 107 mmol/L 09/03/2024 9:32 AM [facility] CO2, VENOUS 20(L) 22 - 30 mmol/L 09/03/2024 9:32 AM INJECTION OPERATOR [facility] ANION GAP 13.1 <18.0 mmol/L 09/03/2024 9:32 AM INJECTION OPERATOR [facility] GLUCOSE 96 70 - 99 mg/dL 09/03/2024 9:32 AM INJECTION OPERATOR [facility] BUN 18 10 - 20 mg/dL 09/03/2024 9:32 AM [facility] CREATININE, BLOOD 1.09(H) 0.60 - 1.00 mg/dL 09/03/2024 9:32 AM INJECTION OPERATOR [facility] BUN/CREATININE RATIO 17 12 - 20 ratio 09/03/2024 9:32 AM [facility] TOTAL PROTEIN 6.0(L) 6.3 - 8.2 g/dL 09/03/2024 9:32 AM [facility] ALBUMIN 3.8 3.5 - 5.0 g/dL 09/03/2024 9:32 AM [facility] A/G RATIO 1.7 1.0 - 2.2 09/03/2024 9:32 AM [facility] CALCIUM 8.6(L) 8.7 - 10.5 mg/dL 09/03/2024 9:32 AM [facility] T BILI 0.5 0.2 - 1.2 mg/dL 09/03/2024 9:32 AM [facility] SGOT (AST) 34 5 - 34 U/L 09/03/2024 9:32 AM [facility] SGPT (ALT) 49 0 - 55 U/L 09/03/2024 9:32 AM [facility] ALKALINE PHOSPHATASE 65 40 - 150 U/L 09/03/2024 9:32 AM [facility] IS THE PATIENT REQUIRED TO BE FASTING? No 09/03/2024 9:32 AM [facility] GFR, ESTIMATED 58(L) >=60 09/03/2024 9:32 AM [facility] Comment: Creatinine Clearance is the preferred criteria for selecting drug dose adjustments in renally impaired patients. ??The GFR is provided as additional pertinent clinical information. GFR is reported in mL/min/1.73 sq m. Calculation based on the Chronic Kidney Disease Epidemiology Collaboration (CKD- EPI) equation refit without adjustment for race. GFR, EST. >60 >=60 024 9:32 AM [facility] GFR, EST. NONAFRICAN 51(L) >=60 09/03/2024 9:32 AM [facility] Blood Sub-Q Port Venou s Access Device (Medi-Port, Implanted Port) / Unknown 09/03/2024 8:53 AM INJECTION OPERATOR 09/03/2024 8:53 AM INJECTION OPERATOR Cruzito Orr MD CHEMISTRY ORDERABLES Fin al Result [facility] [place] [address] * (ABNORMAL) CMP (COMPREHENSIVE METABOLIC PANEL) (08/28/2024 8:41 AM INJECTION OPERATOR) SODIUM 137 136 - 145 mmol/L 08/28/2024 9:08 AM [facility] POTASSIUM 4.4 3.5 - 5.1 mmol/L 08/28/2024 9:08 AM [facility] CHLORIDE 108(H) 98 - 107 mmol/L 08/28/2024 9:08 AM [facility] CO2, VENOUS 19(L) 22 - 30 mmol/L 08/28/2024 9:08 AM [facility] ANION GAP 14.4 <18.0 mmol/L 08/28/2024 9:08 AM [facility] GLUCOSE 88 70 - 99 mg/dL 08/28/2024 9:08 AM [facility] BUN 11 10 - 20 mg/dL 08/28/2024 9:08 AM [facility] CREATININE, BLOOD 0.93 0.60 - 1.00 mg/dL 08/28/2024 9:08 AM [facility] BUN/CREATININE RATIO 12 12 - 20 ratio 08/28/2024 9:08 AM [facility] TOTAL PROTEIN 6.1(L) 6.3 - 8.2 g/dL 08/28/2024 9:08 AM [facility] ALBUMIN 3.9 3.5 - 5.0 g/dL 08/28/2024 9:08 AM [facility] A/G RATIO 1.8 1.0 - 2.2 08/28/2024 9:08 AM INJECTION OPERATOR [facility] CALCIUM 8.5(L) 8.7 - 10.5 mg/dL 08/28/2024 9:08 AM INJECTION OPERATOR [facility] T BILI 0.2 0.2 - 1.2 mg/dL 08/28/2024 9:08 AM [facility] SGOT (AST) 16 5 - 34 U/L 08/28/2024 9:08 AM INJECTION OPERATOR [facility] SGPT (ALT) 20 0 - 55 U/L 08/28/2024 9:08 AM INJECTION OPERATOR [facility] ALKALINE PHOSPHATASE 76 40 - 150 U/L 08/28/2024 9:08 AM [facility] IS THE PATIENT REQUIRED TO BE FASTING? No 08/28/2024 9:08 AM [facility] GFR, ESTIMATED >60 >=60 08/28/2024 9:08 AM [facility] Comment: Creatinine Clearance is the preferred criteria for selecting drug dose adjustments in renally impaired patients. ??The GFR is provided as additional pertinent clinical information. GFR is reported in mL/min/1.73 sq m. Calculation based on the Chronic Kidney Disease Epidemiology Collaboration (CKD- EPI) equation refit without adjustment for race. GFR, EST. >60 >=60 024 9:08 AM [facility] GFR, EST. NONAFRICAN >60 >=60 08/28/2024 9:08 AM [facility] Blood Sub-Q Port Venou s Access Device (Medi-Port, Implanted Port) / Unknown 08/28/2024 8:41 AM INJECTION OPERATOR 08/28/2024 8:41 AM INJECTION OPERATOR us Cruzito Orr MD CHEMISTRY ORDERABLES Fin al Result [facility] [place] [address] * (ABNORMAL) CMP (COMPREHENSIVE METABOLIC PANEL) (08/21/2024 2:20 PM INJECTION OPERATOR) SODIUM 133(L) 136 - 145 mmol/L 08/21/2024 3:00 PM [facility] POTASSIUM 4.8 3.5 - 5.1 mmol/L 08/21/2024 3:00 PM [facility] CHLORIDE 103 98 - 107 mmol/L 08/21/2024 3:00 PM [facility] CO2, VENOUS 21(L) 22 - 30 mmol/L 08/21/2024 3:00 PM [facility] ANION GAP 13.8 <18.0 mmol/L 08/21/2024 3:00 PM [facility] GLUCOSE 120(H) 70 - 99 mg/dL 08/21/2024 3:00 PM [facility] BUN 20 10 - 20 mg/dL 08/21/2024 3:00 PM [facility] CREATININE, BLOOD 1.31(H) 0.60 - 1.00 mg/dL 08/21/2024 3:00 PM [facility] BUN/CREATININE RATIO 15 12 - 20 ratio 08/21/2024 3:00 PM [facility] TOTAL PROTEIN 6.6 6.3 - 8.2 g/dL 08/21/2024 3:00 PM [facility] ALBUMIN 4.1 3.5 - 5.0 g/dL 08/21/2024 3:00 PM [facility] A/G RATIO 1.6 1.0 - 2.2 08/21/2024 3:00 PM [facility] CALCIUM 9.1 8.7 - 10.5 mg/dL 08/21/2024 3:00 PM [facility] T BILI 0.3 0.2 - 1.2 mg/dL 08/21/2024 3:00 PM [facility] SGOT (AST) 20 5 - 34 U/L 08/21/2024 3:00 PM [facility] SGPT (ALT) 27 0 - 55 U/L 08/21/2024 3:00 PM INJECTION OPERATOR [facility] ALKALINE PHOSPHATASE 85 40 - 150 U/L 08/21/2024 3:00 PM INJECTION OPERATOR [facility] IS THE PATIENT REQUIRED TO BE FASTING? No 08/21/2024 3:00 PM INJECTION OPERATOR [facility] GFR, ESTIMATED 47(L) >=60 08/21/2024 3:00 PM INJECTION OPERATOR [facility] Comment: Creatinine Clearance is the preferred criteria for selecting drug dose adjustments in renally impaired patients. ??The GFR is provided as additional pertinent clinical information. GFR is reported in mL/min/1.73 sq m. Calculation based on the Chronic Kidney Disease Epidemiology Collaboration (CKD- EPI) equation refit without adjustment for race. GFR, EST. 50(L) >=60 024 3:00 PM INJECTION OPERATOR [facility] GFR, EST. NONAFRICAN 41(L) >=60 08/21/2024 3:00 PM INJECTION OPERATOR [facility] Blood Sub-Q Port Venou s Access Device (Medi-Port, Implanted Port) / Unknown 08/21/2024 2:20 PM INJECTION OPERATOR 08/21/2024 2:21 PM INJECTION OPERATOR Cruzito Orr MD CHEMISTRY ORDERABLES Fin al Result [facility] [place] [address] * (ABNORMAL) CMP (COMPREHENSIVE METABOLIC PANEL) (08/07/2024 3:01 PM CDT) SODIUM 135(L) 136 - 145 mmol/L 08/07/2024 3:55 PM CDT [facility] POTASSIUM 4.3 3.5 - 5.1 mmol/L 08/07/2024 3:55 PM CDT [facility] CHLORIDE 105 98 - 107 mmol/L 08/07/2024 3:55 PM CDT [facility] CO2, VENOUS 26 22 - 30 mmol/L 08/07/2024 3:55 PM CDT [facility] ANION GAP 8.3 <18.0 mmol/L 08/07/2024 3:55 PM CDT [facility] GLUCOSE 91 70 - 99 mg/dL 08/07/2024 3:55 PM CDT [facility] BUN 19 10 - 20 mg/dL 08/07/2024 3:55 PM CDT [facility] CREATININE, BLOOD 1.05(H) 0.60 - 1.00 mg/dL 08/07/2024 3:55 PM CDT [facility] BUN/CREATININE RATIO 18 12 - 20 ratio 08/07/2024 3:55 PM CDT [facility] TOTAL PROTEIN 6.3 6.3 - 8.2 g/dL 08/07/2024 3:55 PM CDT [facility] ALBUMIN 4.0 3.5 - 5.0 g/dL 08/07/2024 3:55 PM CDT [facility] A/G RATIO 1.7 1.0 - 2.2 08/07/2024 3:55 PM CDT [facility] CALCIUM 10.2 8.7 - 10.5 mg/dL 08/07/2024 3:55 PM CDT [facility] T BILI 0.3 0.2 - 1.2 mg/dL 08/07/2024 3:55 PM CDT [facility] SGOT (AST) 30 5 - 34 U/L 08/07/2024 3:55 PM CDT [facility] SGPT (ALT) 33 0 - 55 U/L 08/07/2024 3:55 PM CDT [facility] ALKALINE PHOSPHATASE 73 40 - 150 U/L 08/07/2024 3:55 PM CDT [facility] IS THE PATIENT REQUIRED TO BE FASTING? No 08/07/2024 3:55 PM CDT [facility] GFR, ESTIMATED >60 >=60 08/07/2024 3:55 PM CDT [facility] Comment: Creatinine Clearance is the preferred criteria for selecting drug dose adjustments in renally impaired patients. ??The GFR is provided as additional pertinent clinical information. GFR is reported in mL/min/1.73 sq m. Calculation based on the Chronic Kidney Disease Epidemiology Collaboration (CKD- EPI) equation refit without adjustment for race. GFR, EST. >60 >=60 024 3:55 PM CDT [facility] GFR, EST. NONAFRICAN 53(L) >=60 08/07/2024 3:55 PM CDT [facility] Blood Sub-Q Port Venou s Access Device (Medi-Port, Implanted Port) / Unknown 08/07/2024 3:01 PM CDT 08/07/2024 3:01 PM CDT us Cruzito Orr MD CHEMISTRY ORDERABLES Fin al Result [facility] [address] [place] [address] * (ABNORMAL) CMP (COMPREHENSIVE METABOLIC PANEL) (07/31/2024 8:55 AM CDT) SODIUM 138 136 - 145 mmol/L 07/31/2024 9:29 AM CDT [facility] POTASSIUM 4.3 3.5 - 5.1 mmol/L 07/31/2024 9:29 AM CDT [facility] CHLORIDE 110(H) 98 - 107 mmol/L 07/31/2024 9:29 AM CDT [facility] CO2, VENOUS 23 22 - 30 mmol/L 07/31/2024 9:29 AM CDT [facility] ANION GAP 9.3 <18.0 mmol/L 07/31/2024 9:29 AM CDT [facility] GLUCOSE 92 70 - 99 mg/dL 07/31/2024 9:29 AM CDT [facility] BUN 13 10 - 20 mg/dL 07/31/2024 9:29 AM CDT [facility] CREATININE, BLOOD 1.13(H) 0.60 - 1.00 mg/dL 07/31/2024 9:[address] [facility] BUN/CREATININE RATIO 12 12 - 20 ratio 07/31/2024 9:[address] [facility] TOTAL PROTEIN 5.9(L) 6.3 - 8.2 g/dL 07/31/2024 9:29 AM T [facility] ALBUMIN 3.8 3.5 - 5.0 g/dL 07/31/2024 9:[address] [facility] A/G RATIO 1.8 1.0 - 2.2 07/31/2024 9:[address] [facility] CALCIUM 8.5(L) 8.7 - 10.5 mg/dL 07/31/2024 9:[address] [facility] T BILI 0.1(L) 0.2 - 1.2 mg/dL 07/31/2024 9:[address] [facility] SGOT (AST) 19 5 - 34 U/L 07/31/2024 9:[address] [facility] SGPT (ALT) 22 0 - 55 U/L 07/31/2024 9:[address] [facility] ALKALINE PHOSPHATASE 75 40 - 150 U/L 07/31/2024 9:[address] [facility] IS THE PATIENT REQUIRED TO BE FASTING? No 07/31/2024 9:[address] [facility] [facility] GFR, ESTIMATED 56(L) >=60 07/31/2024 9:[address] [facility] Comment: Creatinine Clearance is the preferred criteria for selecting drug dose adjustments in renally impaired patients. ??The GFR is provided as additional pertinent clinical information. GFR is reported in mL/min/1.73 sq m. Calculation based on the Chronic Kidney Disease Epidemiology Collaboration (CKD- EPI) equation refit without adjustment for race. GFR, EST. 60 >=60 024 9:29 AM T [facility] GFR, EST. NONAFRICAN 49(L) >=60 07/31/2024 9:29 AM CDT [facility] Blood Sub-Q Port Venou s Access Device (Medi-Port, Implanted Port) / Unknown 07/31/2024 8:55 AM CDT 07/31/2024 8:55 AM CDT us Cruzito Orr MD CHEMISTRY ORDERABLES Fin al Result [facility] [address] [place] [address] * (ABNORMAL) CMP (COMPREHENSIVE METABOLIC PANEL) (07/24/2024 9:24 AM CDT) SODIUM 140 136 - 145 mmol/L 07/24/2024 10:29 AM CDT [facility] POTASSIUM 4.1 3.5 - 5.1 mmol/L 07/24/2024 10:29 AM CDT [facility] CHLORIDE 111(H) 98 - 107 mmol/L 07/24/2024 10:29 AM CDT [facility] CO2, VENOUS 22 22 - 30 mmol/L 07/24/2024 10:29 AM CDT [facility] ANION GAP 11.1 <18.0 mmol/L 07/24/2024 10:29 AM CDT [facility] GLUCOSE 86 70 - 99 mg/dL 07/24/2024 10:29 AM CDT [facility] BUN 11 10 - 20 mg/dL 07/24/2024 10:29 AM CDT [facility] CREATININE, BLOOD 0.89 0.60 - 1.00 mg/dL 07/24/2024 10:29 AM CDT [facility] BUN/CREATININE RATIO 12 12 - 20 ratio 07/24/2024 10:29 AM CDT [facility] TOTAL PROTEIN 6.1(L) 6.3 - 8.2 g/dL 07/24/2024 10:29 AM CDT [facility] ALBUMIN 3.9 3.5 - 5.0 g/dL 07/24/2024 10:29 AM CDT [facility] A/G RATIO 1.8 1.0 - 2.2 07/24/2024 10:29 AM CDT [facility] CALCIUM 8.8 8.7 - 10.5 mg/dL 07/24/2024 10:29 AM CDT [facility] T BILI 0.2 0.2 - 1.2 mg/dL 07/24/2024 10:29 AM CDT [facility] SGOT (AST) 18 5 - 34 U/L 07/24/2024 10:29 AM CDT [facility] SGPT (ALT) 23 0 - 55 U/L 07/24/2024 10:29 AM CDT [facility] ALKALINE PHOSPHATASE 85 40 - 150 U/L 07/24/2024 10:29 AM CDT [facility] IS THE PATIENT REQUIRED TO BE FASTING? No 07/24/2024 10:29 AM CDT [facility] GFR, ESTIMATED >60 >=60 07/24/2024 10:29 AM CDT [facility] Comment: Creatinine Clearance is the preferred criteria for selecting drug dose adjustments in renally impaired patients. ??The GFR is provided as additional pertinent clinical information. GFR is reported in mL/min/1.73 sq m. Calculation based on the Chronic Kidney Disease Epidemiology Collaboration (CKD- EPI) equation refit without adjustment for race. GFR, EST. >60 >=60 024 10:29 AM CDT [facility] GFR, EST. NONAFRICAN >60 >=60 07/24/2024 10:29 AM CDT [facility] Blood Venipuncture / Unknown 07/24/2024 9:24 AM CDT 07/24/2024 9:24 AM CDT us Cruzito Orr MD CHEMISTRY ORDERABLES Fin al Result [facility] [place] [address] * (ABNORMAL) CBC WITH AUTO DIFFERENTIAL (07/09/2024 3:31 PM CDT) WBC 6.13 4.00 - 12.00 10(3)/mcL 07/09/2024 3:40 PM CDT [facility] RBC 3.67(L) 3.80 - 5.30 10(6)/mcL 07/09/2024 3:40 PM CDT [facility] HEMOGLOBIN (HGB) 11.6(L) 12.0 - 15.8 g/dL 07/09/2024 3:40 PM CDT [facility] HEMATOCRIT (HCT) 33.7(L) 36.0 - 47.0 % 07/09/2024 3:40 PM CDT [facility] MCV 91.8 82.0 - 96.0 fL 07/09/2024 3:40 PM CDT [facility] MCH 31.6 26.0 - 34.0 pg 07/09/2024 3:40 PM CDT [facility] MCHC 34.4 31.0 - 36.0 g/dL 07/09/2024 3:40 PM CDT [facility] PLATELET COUNT 183 140 - 440 10(3)/mcL 07/09/2024 3:40 PM CDT [facility] RDW 12.9 11.8 - 15.5 % 07/09/2024 3:40 PM CDT [facility] MPV 9.2(L) 9.7 - 12.4 fL 07/09/2024 3:40 PM CDT [facility] NEUTROPHILS 59.7 47.0 - 73.0 % 07/09/2024 3:40 PM CDT [facility] LYMPHOCYTES 37.7 18.0 - 42.0 % 07/09/2024 3:40 PM CDT [facility] MONOCYTES 1.0(L) 4.0 - 12.0 % 07/09/2024 3:40 PM CDT [facility] EOSINOPHILS 1.3 0.0 - 5.0 % 07/09/2024 3:40 PM CDT [facility] BASOPHILS 0.3 0.0 - 1.0 % 07/09/2024 3:40 PM CDT [facility] ABSOLUTE NEUTROPHILS 3.66 1.60 - 7.70 10(3)/mcL 07/09/2024 3:40 PM CDT [facility] ABSOLUTE LYMPHOCYTES 2.31 1.30 - 3.20 10(3)/[facility] 07/09/2024 3:40 PM CDT [facility] ABSOLUTE MONOCYTES 0.06(L) 0.20 - 1.00 10(3)/[facility] 07/09/2024 3:40 PM CDT [facility] ABSOLUTE EOSINOPHIL 0.08 0.00 - 0.40 10(3)/[facility] 07/09/2024 3:40 PM CDT [facility] ABSOLUTE BASOPHILS 0.02 0.00 - 0.10 10(3)/[facility] 07/09/2024 3:40 PM CDT [facility] NRBC PER 100 WBC 0 07/09/20 24 3:40 PM CDT [facility] Blood Sub-Q Port Venou s Access Device (Medi-Port, Implanted Port) / Unknown 07/09/2024 3:31 PM CDT 07/09/2024 3:31 PM CDT us Cruzito Orr MD HEMATOLOGY ORDERABLES Fi nal Result [facility] [address] [place] [address] * (ABNORMAL) CMP (COMPREHENSIVE METABOLIC PANEL) (07/09/2024 3:31 PM CDT) SODIUM 135(L) 136 - 145 mmol/L 07/09/2024 4:02 PM CDT [facility] POTASSIUM 4.0 3.5 - 5.1 mmol/L 07/09/2024 4:[address] [facility] CHLORIDE 108(H) 98 - 107 mmol/L 07/09/2024 4:[address] [facility] CO2, VENOUS 22 22 - 30 mmol/L 07/09/2024 4:[address] [facility] ANION GAP 9.0 <18.0 mmol/L 07/09/2024 4:[address] [facility] GLUCOSE 101(H) 70 - 99 mg/dL 07/09/2024 4:[address] [facility] BUN 15 10 - 20 mg/dL 07/09/2024 4:[address] [facility] CREATININE, BLOOD 1.12(H) 0.60 - 1.00 mg/dL 07/09/2024 4:[address] [facility] BUN/CREATININE RATIO 13 12 - 20 ratio 07/09/2024 4:[address] [facility] TOTAL PROTEIN 6.3 6.3 - 8.2 g/dL 07/09/2024 4:[address] [facility] ALBUMIN 3.8 3.5 - 5.0 g/dL 07/09/2024 4:[address] [facility] A/G RATIO 1.5 1.0 - 2.2 07/09/2024 4:[address] [facility] CALCIUM 8.9 8.7 - 10.5 mg/dL 07/09/2024 4:[address] [facility] T BILI 0.3 0.2 - 1.2 mg/dL 07/09/2024 4:[address] [facility] SGOT (AST) 23 5 - 34 U/L 07/09/2024 4:[address] [facility] SGPT (ALT) 26 0 - 55 U/L 07/09/2024 4:[address] [facility] ALKALINE PHOSPHATASE 71 40 - 150 U/L 07/09/2024 4:02 PM CDT [facility] IS THE PATIENT REQUIRED TO BE FASTING? No 07/09/2024 4:02 PM CDT [facility] GFR, ESTIMATED 56(L) >=60 07/09/2024 4:02 PM CDT [facility] Comment: Creatinine Clearance is the preferred criteria for selecting drug dose adjustments in renally impaired patients. ??The GFR is provided as additional pertinent clinical information. GFR is reported in mL/min/1.73 sq m. Calculation based on the Chronic Kidney Disease Epidemiology Collaboration (CKD- EPI) equation refit without adjustment for race. GFR, EST. 60 >=60 024 4:02 PM CDT [facility] GFR, EST. NONAFRICAN 50(L) >=60 07/09/2024 4:02 PM CDT [facility] Blood Sub-Q Port Venou s Access Device (Medi-Port, Implanted Port) / Unknown 07/09/2024 3:31 PM CDT 07/09/2024 3:31 PM CDT Cruzito Orr MD CHEMISTRY ORDERABLES Fin al Result [facility] [address] [place] [address] documented in this encounter Visit Diagnoses Diagnosis Urothelial cancer (HCC)- Primary Malignant neoplasm of other specified sites of urinary organs documented in this encounter Administered Medications Inactive Administered Medications - up to 3 most recent administrations Medication Order MAR Action Action Date Dose Rate Site Heparin Na (Pork) Lock Flsh PF SOLN 30 Units 30 Units, Intravenous, PRN, Starting on Mon07/09/24 at 1523, Until Mon07/09/24 at 1733, Line CareIndications:Urothelial cancer (HCC) Given 07/09/2024 3:31 PM CDT 30 Units documented in this encounter Care Teams Manager Of Care Relationship Specialty Start Date End Date [place] [address] PCP - General Family Medicine 06/18/24 Levi Carpenter DPM Podiatry 06/07/16 Los Perry MD [address] [place] [phone] Consulting Physician General Surgery 06/20/24 documented as of this encounter
--- OUTSIDE RECORDS SUMMARY | 2024-10-13 03:59 | XMS_ITS | Encounter Summary ---
Author Organization [facility] Care Team Providers Care Band Nailer Name Role Phone Levi Carpenter DPM Unavailable [phone] Karson Forbes MD Primary Care Provider [phone] Los Perry MD Unavailable [phone] Encounter Details Date Type Department Care Team (Latest Contact Info) Description 07/02/2024 Travel Social History Tobacco Use Types Packs/Day [...] st Contact Info) Description 10/16/2024 10:40 AM COD CLERK Office Visit [facility] [address] [place] [phone] Cruzito rOr MD [address] [place] [address] Discharge Disposition: Discharged to home or Selfcare 10/16/2024 1:20 PM COD CLERK Clinical Support [facility] Oncology Services [address] [place] [phone] Discharge Disposition: Discharged to home or Selfcare 10/17/2024 1:00 PM COD CLERK Clinical Support [facility] Services [address] [place] [phone] Discharge Disposition: Discharged to home or Selfcare 10/23/2024 9:20 AM COD CLERK Clinical Support [facility] Services [address] [place] [phone] Discharge Disposition: Discharged to home or Selfcare 10/24/2024 1:00 PM COD CLERK Clinical Support [facility] Services [address] [place] [phone] Discharge Disposition: Discharged to home or Selfcare documented as of this encounter Visit Diagnoses Not on filedocumented in this encounter Care Teams Band Nailer Relationship Specialty Start Date End Date Karson Forbes MD [address] [place] [address] PCP - General Family Medicine 06/18/24 Levi Carpenter DPM Podiatry 06/07/16 Los Perry MD [address] [phone] Consulting Physician General Surgery 06/20/24 documented as of this encounter
--- OUTSIDE RECORDS SUMMARY | 2024-10-13 03:59 | XMS_ITS | Encounter Summary ---
Author Organization [facility] Care Team Providers Care Inspector Weights And Measures Name Role Phone PaulineLevi guerrero DPM Unavailable Karson Forbes MD Primary Care Provider [phone] Encounter Details Date Type Department Care Team (Latest Contact Info) Description 06/18/2024 Travel Social History Tobacco Use Types Packs/Day [...] st Contact Info) Description 10/16/2024 10:40 AM MATH AND PHYSICS INSTRUCTOR Office Visit [facility] Services [address] [place] [phone] Cruzito Orr MD [address] [place] [address] Discharge Disposition: Discharged to home or Selfcare 10/16/2024 1:20 PM MATH AND PHYSICS INSTRUCTOR Clinical Support [facility] Oncology Services [address] [place] [phone] Discharge Disposition: Discharged to home or Selfcare 10/17/2024 1:00 PM MATH AND PHYSICS INSTRUCTOR Clinical Support [facility] Oncology Services [address] [place] [phone] Discharge Disposition: Discharged to home or Selfcare 10/23/2024 9:20 AM MATH AND PHYSICS INSTRUCTOR Clinical Support [facility] Oncology Services [address] [place] [phone] Discharge Disposition: Discharged to home or Selfcare 10/24/2024 1:00 PM MATH AND PHYSICS INSTRUCTOR Clinical Support [facility] Oncology Services [address] [place] [phone] Discharge Disposition: Discharged to home or Selfcare documented as of this encounter Visit Diagnoses Not on filedocumented in this encounter Care Teams Inspector Weights And Measures Relationship Specialty Start Date End Date Karson Forbes MD [address] [place] [address] PCP - General Family Medicine 06/18/24 Levi Carpenter DPM Podiatry 06/07/16 documented as of this encounter
--- OUTSIDE RECORDS SUMMARY | 2024-10-13 03:59 | XMS_ITS | Encounter Summary ---
Author Organization [facility] Address [address] [place] [address] Phone Care Team Providers Care Corporate Treasurer Name Role Phone Levi Carpenter Mirlande DPM Unavailable [phone] Karson Forbes MD Primary Care Provider [phone] Los Perry MD Unavailable Encounter Details Date Type Department Care Team (Late st Contact Info) Description 08/08/2024 Telephone [facility] On[facility] Services [address] [place] [phone] Cruzito Orr MD [address] [place] [address] Social History Tobacco Use Types Packs/Day Years [...] Telephone Encounter - Whitley Rodriguez RN - 08/08/2024 8:37 AM CDT Spoke to Dr. Orr last evening. Pt is ok for treatment today due to current ANC. documented in this encounter Plan of Treatment Upcoming Encounters Date Type Department Care Team (Late st Contact Info) Description 10/16/2024 10:40 AM WATCHMAKER APPRENTICE Office Visit [facility] Oncology Services [address] [place] [phone] Cruzito Orr MD [address] [place] [phone] Discharge Disposition: Discharged to home or Selfcare 10/16/2024 1:20 PM WATCHMAKER APPRENTICE Clinical Support [facility] Oncology Services [address] [place] [phone] Discharge Disposition: Discharged to home or Selfcare 10/17/2024 1:00 PM WATCHMAKER APPRENTICE Clinical Support [facility] Oncology Services [address] [place] [phone] Discharge Disposition: Discharged to home or Selfcare 10/23/2024 9:20 AM WATCHMAKER APPRENTICE Clinical Support [facility] Oncology Services [address] [place] [phone] Discharge Disposition: Discharged to home or Selfcare 10/24/2024 1:00 PM WATCHMAKER APPRENTICE Clinical Support [facility] Oncology Services [address] [place] [phone] Discharge Disposition: Discharged to home or Selfcare documented as of this encounter Visit Diagnoses Not on filedocumented in this encounter Care Teams Corporate Treasurer Relationship Specialty Start Date End [place] [address] PCP - General Family Medicine 06/18/24 Levi Carpenter DPM Podiatry 06/07/16 Los Perry MD [address] [phone] Consulting Physician General Surgery 06/20/24 documented as of this encounter
--- OUTSIDE RECORDS SUMMARY | 2024-10-13 03:59 | XMS_ITS | Encounter Summary ---
Author Organization [facility] Address [address] [facility] [place] [address] Phone Care Team Providers Care Biology Intern Name Role Phone Lvei Carpenter Mirlande DPM Unavailable [phone] Karson Forbes MD Primary Care Provider [phone] Los Perry MD Unavailable [phone] Reason for Visit * Episode Based Medications (Routine) - Pending Review Specialty Diagnoses / Procedures Referred By Contac t Referred To Contact Diagnoses Urothelial cancer (HCC) Cruzito Orr MD [address] [place] [address] Phone: tel: fax: [facility] Oncology Services [address] [place] [address] Phone: tel: fax: Referral ID Status Reason Start Date Expiration Date V isits Requested Visits Authorized [id number] Pending Review 06/18/2024 30 Encounter Details Date Type Department Care Team (Late st Contact Info) Description 08/08/2024 9:30 AM CDT Clinical Support [facility] Oncology Services [address] [place] [phone] Cruzito Orr MD [address] [place] [address] Urothelial cancer (HCC) (Primary Dx) Discharge Disposition: [...] Sign Reading Time Taken Comments Blood Pressure 139/71 08/08/2024 9:31 AM CDT Pulse 64 08/08/2024 9:31 AM CDT Temperature 36.3 ??C (97.4 ??F) 08/08/2024 9:31 AM CD T Respiratory Rate 16 08/08/2024 9:31 AM CDT Oxygen Saturation 95% 08/08/2024 9:31 AM CDT Inhaled Oxygen Concentration - - Weight 64.1 kg (141 lb 4.8 oz) 08/08/2024 9:31 A M CDT Height - - Body Mass Index 26.7 07/09/2024 3:33 PM CDT documented in this encounter Progress Notes * Dayana Morocho RN - 08/08/2024 9:30 AM CDT Patient arrive to Infusion. Port accessed per protocol with good blood return, flushed easily. See flowsheet. Pre meds given. Patient comfortable. Labs/orders assessed/verified per . See Whitley Ambrocio RN note. Chemo/all medicaions given as ordered. Patient tolerated well. Port flushed/deaccessed per protocol. Bandaid applied. Patietn inquired about home nausea medications/medication education done perYamilex Dueñas RN. Patient tolerated well. AVS declined. Patient discharged aware of next appointment. documented in this encounter Plan of Treatment Upcoming Encounters Date Type Department Care Team (Late st Contact Info) Description 10/16/2024 10:40 AM DRAWING INSTRUCTOR Office Visit [facility] Oncology Services [address] [place] [phone] Cruzito Orr MD [address] [place] [phone] Discharge Disposition: Discharged to home or Selfcare 10/16/2024 1:20 PM DRAWING INSTRUCTOR Clinical Support [facility] Oncology Services [address] [place] [phone] Discharge Disposition: Discharged to home or Selfcare 10/17/2024 1:00 PM DRAWING INSTRUCTOR Clinical Support [facility] Oncology Services [address] [place] [phone] Discharge Disposition: Discharged to home or Selfcare 10/23/2024 9:20 AM DRAWING INSTRUCTOR Clinical Support [facility] Oncology Services [address] [place] [phone] Discharge Disposition: Discharged to home or Selfcare 10/24/2024 1:00 PM DRAWING INSTRUCTOR Clinical Support [facility] Oncology Services [address] [place] [phone] Discharge Disposition: Discharged to home or Selfcare documented as of this encounter Visit Diagnoses Diagnosis Urothelial cancer (HCC)- Primary Malignant neoplasm of other specified sites of urinary organs documented in this encounter Administered Medications Inactive Administered Medications - up to 3 most recent administrations Medication Order MAR Action Action Date Dose Rate Site 0.9 % sodium chloride solution at 75 mL/hr, Intravenous, ONCE, 1 dose, On Laura 08/08/24 at 1000, Flush fluidIndications:Urothelial cancer (HCC) New Bag 08/08/2024 9:42 AM CDT 75 mL/hr dexamethasone (DECADRON) injection 8 mg 8 mg, Intravenous, ONCE, 1 dose, On Laura 08/08/24 at 1000Indications:Urothelial cancer (HCC) Given 08/08/2024 9:46 AM CDT 8 mg gemcitabine 1,238 mg in sodium chloride 0.9 % 250 mL chemo infusion 1,238 mg (rounded from 1,237.5 mg = 750 mg/m2 ? 1.65 m2 Treatment Plan BSA from Recorded weight), Intravenous, ONCE, 1 dose, On Laura 08/08/24 at 1030, Administer over 30 MinutesIndications:Urothelia l cancer (HCC) New Bag 08/08/2024 10:29 AM CDT 1,238 mg Heparin Na (Pork) Lock Flsh PF SOLN 50 Units 50 Units, Intravenous, PRN, Starting on Laura 08/08/24 at 0938, Until Laura 08/08/24 at 1755, Line Care, Line care per [facility].Indications:Urothelial cancer (HCC) Given 08/08/2024 11:28 AM CDT 50 Units documented in this encounter Care Teams Biology Intern Relationship Specialty Start Date End Date Karson Forbes MD [address] [place] [address] PCP - General Family Medicine 06/18/24 Levi Carpenter DPM Podiatry 06/07/16 Los Perry MD [address] [phone] Consulting Physician General Surgery 06/20/24 documented as of this encounter
--- OUTSIDE RECORDS SUMMARY | 2024-10-13 03:59 | XMS_ITS | Encounter Summary ---
Author Organization [facility] HealthCare Address [address] [facility] [place] [address] Phone Care Team Providers Care Training And Development Officer Name Role Phone Levi Carpenter DPM Unavailable [phone] Karson Forbse MD Primary Care Provider [phone] Los Perry MD Unavailable Encounter Details Date Type Department Care Team (Late st Contact Info) Description 08/07/2024 2:40 PM CDT Clinical Support [facility] On[facility] Services [address] [place] [phone] Cruzito Orr MD [address] [place] [address] Stage 3 chronic kidney disease, unspecified whether [...] encounter Miscellaneous Notes * Interdisciplinary - Yamilex Pulido, RN - 08/07/2024 2:40 PM CDT Presents for scheduled lab draw. Labs drawn from port per policy. Left infusion room in stable condition. documented in this encounter Plan of Treatment Upcoming Encounters Date Type Department Care Team (Late st Contact Info) Description 10/16/2024 10:40 AM BROOMMAKING SUPERVISOR Office Visit [facility] Oncology Services [address] [place] [phone] [place] [address] [place] [address] Discharge Disposition: Discharged to home or Selfcare 10/16/2024 1:20 PM BROOMMAKING SUPERVISOR Clinical Support [facility] Oncology Services [address] [place] [phone] Discharge Disposition: Discharged to home or Selfcare 10/17/2024 1:00 PM BROOMMAKING SUPERVISOR Clinical Support [facility] On[facility] Services [address] [place] [phone] Discharge Disposition: Discharged to home or Selfcare 10/23/2024 9:20 AM BROOMMAKING SUPERVISOR Clinical Support [facility] Oncology Services [address] [place] [phone] Discharge Disposition: Discharged to home or Selfcare 10/24/2024 1:00 PM BROOMMAKING SUPERVISOR Clinical Support [facility] Oncology Services [address] [place] [phone] Discharge Disposition: Discharged to home or Selfcare documented as of this encounter Procedures Procedure Name Priority Date/Time Associated Diagnosis Comments CBC WITH AUTO DIFFERENTIAL STAT 08/07/2024 3:01 PM CDT Urothelial cancer (HCC) CMP (COMPREHENSIVE METABOLIC PANEL) STAT 08/07/2024 3:01 PM CDT Urothelial cancer (HCC) COMPLETE BLOOD COUNT (CBC) WITH DIFF STAT 08/07/2024 3:01 PM CDT Urothelial cancer (HCC) documented in this encounter Results * (ABNORMAL) CBC WITH AUTO DIFFERENTIAL (08/07/2024 3:01 PM CDT) WBC 3.29(L) 4.00 - 12.00 10(3)/mcL 08/07/2024 4:14 PM CDT [facility] RBC 3.17(L) 3.80 - 5.30 10(6)/mcL 08/07/2024 4:14 PM CDT [facility] HEMOGLOBIN (HGB) 10.0(L) 12.0 - 15.8 g/dL 08/07/2024 4:14 PM CDT [facility] HEMATOCRIT (HCT) 29.4(L) 36.0 - 47.0 % 08/07/2024 4:14 PM CDT [facility] MCV 92.7 82.0 - 96.0 fL 08/07/2024 4:14 PM CDT [facility] MCH 31.5 26.0 - 34.0 pg 08/07/2024 4:14 PM CDT [facility] MCHC 34.0 31.0 - 36.0 g/dL 08/07/2024 4:14 PM CDT [facility] PLATELET COUNT 214 140 - 440 10(3)/mcL 08/07/2024 4:14 PM CDT [facility] RDW 14.8 11.8 - 15.5 % 08/07/2024 4:14 PM CDT [facility] MPV 9.1(L) 9.7 - 12.4 fL 08/07/2024 4:14 PM CDT [facility] NEUTROPHILS 30.4(L) 47.0 - 73.0 % 08/07/2024 4:14 PM CDT [facility] LYMPHOCYTES 66.3(H) 18.0 - 42.0 % 08/07/2024 4:14 PM CDT [facility] MONOCYTES 2.7(L) 4.0 - 12.0 % 08/07/2024 4:14 PM CDT [facility] EOSINOPHILS 0.3 0.0 - 5.0 % 08/07/2024 4:14 PM CDT [facility] BASOPHILS 0.3 0.0 - 1.0 % 08/07/2024 4:14 PM CDT [facility] ABSOLUTE NEUTROPHILS 1.00(L) 1.60 - 7.70 10(3)/mcL 08/07/2024 4:14 PM CDT [facility] ABSOLUTE LYMPHOCYTES 2.18 1.30 - 3.20 10(3)/mcL 08/07/2024 4:14 PM CDT [facility] ABSOLUTE MONOCYTES 0.09(L) 0.20 - 1.00 10(3)/mcL 08/07/2024 4:14 PM CDT [facility] ABSOLUTE EOSINOPHIL 0.01 0.00 - 0.40 10(3)/mcL 08/07/2024 4:14 PM CDT [facility] ABSOLUTE BASOPHILS 0.01 0.00 - 0.10 10(3)/mcL 08/07/2024 4:14 PM CDT [facility] NRBC PER 100 WBC 0 08/07/20 4:14 PM CDT [facility] RESULTS ARE CONSISTENT WITH PERIPHERAL SMEAR REVIEW Yes 08/07/2024 4:14 PM CDT [facility] RBC MORPHOLOGY CONSISTENT WITH INDICES Yes 08/07/2024 4:14 PM CDT [facility] Blood Sub-Q Port Venou s Access Device (Medi-Port, Implanted Port) / Unknown 08/07/2024 3:01 PM CDT 08/07/2024 3:01 PM CDT us Cruzito Orr MD HEMATOLOGY ORDERABLES Fi nal Result [facility] [address] [place] [address] * (ABNORMAL) CMP (COMPREHENSIVE METABOLIC PANEL) (08/07/2024 3:01 PM CDT) SODIUM 135(L) 136 - 145 mmol/L 08/07/2024 3:55 PM CDT [facility] POTASSIUM 4.3 3.5 - 5.1 mmol/L 08/07/2024 3:55 PM CDT [facility] CHLORIDE 105 98 - 107 mmol/L 08/07/2024 3:55 PM CDT [facility] CO2, VENOUS 26 22 - 30 mmol/L 08/07/2024 3:55 PM CDT [facility] ANION GAP 8.3 <18.0 mmol/L 08/07/2024 3:55 PM CDT [facility] GLUCOSE 91 70 - 99 mg/dL 08/07/2024 3:55 PM CDT [facility] BUN 19 10 - 20 mg/dL 08/07/2024 3:55 PM CDT [facility] CREATININE, BLOOD 1.05(H) 0.60 - 1.00 mg/dL 08/07/2024 3:55 PM CDT [facility] BUN/CREATININE RATIO 18 12 - 20 ratio 08/07/2024 3:55 PM CDT [facility] TOTAL PROTEIN 6.3 6.3 - 8.2 g/dL 08/07/2024 3:55 PM CDT [facility] ALBUMIN 4.0 3.5 - 5.0 g/dL 08/07/2024 3:55 PM CDT [facility] A/G RATIO 1.7 1.0 - 2.2 08/07/2024 3:55 PM CDT [facility] CALCIUM 10.2 8.7 - 10.5 mg/dL 08/07/2024 3:55 PM CDT [facility] T BILI 0.3 0.2 - 1.2 mg/dL 08/07/2024 3:55 PM CDT [facility] SGOT (AST) 30 5 - 34 U/L 08/07/2024 3:55 PM CDT [facility] SGPT (ALT) 33 0 - 55 U/L 08/07/2024 3:55 PM CDT [facility] ALKALINE PHOSPHATASE 73 40 - 150 U/L 08/07/2024 3:55 PM CDT [facility] IS THE PATIENT REQUIRED TO BE FASTING? No 08/07/2024 3:55 PM CDT [facility] GFR, ESTIMATED >60 >=60 08/07/2024 3:55 PM CDT [facility] Comment: Creatinine Clearance is the preferred criteria for selecting drug dose adjustments in renally impaired patients. ??The GFR is provided as additional pertinent clinical information. GFR is reported in mL/min/1.73 sq m. Calculation based on the Chronic Kidney Disease Epidemiology Collaboration (CKD- EPI) equation refit without adjustment for race. GFR, EST. >60 >=60 024 3:55 PM CDT [facility] GFR, EST. NONAFRICAN 53(L) >=60 08/07/2024 3:55 PM CDT [facility] Blood Sub-Q Port Venou s Access Device (Medi-Port, Implanted Port) / Unknown 08/07/2024 3:01 PM CDT 08/07/2024 3:01 PM CDT us Cruzito Orr MD CHEMISTRY ORDERABLES Fin al Result [facility] [address] [place] [address] documented in this encounter Visit Diagnoses Diagnosis Stage 3 [...] Units 50 Units, Intravenous, PRN, Starting on Mon08/07/24 at 1455, Until Mon08/07/24 at 1801, Line CareIndications:Urothelial cancer (HCC) Given 08/07/2024 3:01 PM CDT 50 Units documented in this encounter Care Teams Training And Development Officer Relationship Specialty Start Date End Date Karson Forbes MD [address] [place] [address] PCP - General Family Medicine 06/18/24 Levi Carpenter DPM Podiatry 06/07/16 Los Perry MD [address] [phone] Consulting Physician General Surgery 06/20/24 documented as of this encounter
--- OUTSIDE RECORDS SUMMARY | 2024-10-13 03:59 | XMS_ITS | Encounter Summary ---
Author Organization [facility] Care Team Providers Care Shampoo Assistant Name Role Phone Levi Carpenter DPM Unavailable [phone] Karson Forbes MD Primary Care Provider [phone] Los Perry MD Unavailable Encounter Details Date Type Department Care Team (Latest Contact Info) Description 06/24/2024 Travel Social History Tobacco Use Types Packs/Day [...] st Contact Info) Description 10/16/2024 10:40 AM GLOBAL CREATIVE CHAIRMAN Office Visit [facility] On[facility] Services [address] [place] [phone] Cruzito Orr MD [address] [place] [address] Discharge Disposition: Discharged to home or Selfcare 10/16/2024 1:20 PM GLOBAL CREATIVE CHAIRMAN Clinical Support [facility] Oncology Services [address] [place] [phone] Discharge Disposition: Discharged to home or Selfcare 10/17/2024 1:00 PM GLOBAL CREATIVE CHAIRMAN Clinical Support [facility] Oncology Services [address] [place] [phone] Discharge Disposition: Discharged to home or Selfcare 10/23/2024 9:20 AM GLOBAL CREATIVE CHAIRMAN Clinical Support [facility] Oncology Services [address] [place] [phone] Discharge Disposition: Discharged to home or Selfcare 10/24/2024 1:00 PM GLOBAL CREATIVE CHAIRMAN Clinical Support [facility] Oncology Services [address] [place] [phone] Discharge Disposition: Discharged to home or Selfcare documented as of this encounter Visit Diagnoses Not on filedocumented in this encounter Care Teams Shampoo Assistant Relationship Specialty Start Date End Date Karson Forbes MD [address] [place] [address] PCP - General Family Medicine 06/18/24 Levi Carpenter DPM Podiatry 06/07/16 Los Perry MD [address] [phone] Consulting Physician General Surgery 06/20/24 documented as of this encounter
--- OUTSIDE RECORDS SUMMARY | 2024-10-13 03:59 | XMS_ITS | Encounter Summary ---
Author Organization [facility] HealthCare Address [address] [place] [address] Phone Care Team Providers Care Lawn Care Worker Name Role Phone Levi Carpenter Mirlande DPM Unavailable [phone] Karson Forbes MD Primary Care Provider [phone] Los Perry MD Unavailable Reason for Visit * Episode Based Medications (Routine) - Pending Review Specialty Diagnoses / Procedures Referred By Contac t Referred To Contact Diagnoses Urothelial cancer (HCC) Cruzito Orr MD [address] [place] [address] Phone: tel: fax: [facility] On[facility] Services [address] [place] [address] Phone: tel: fax: Referral ID Status Reason Start Date Expiration Date V isits Requested Visits Authorized [id number] Pending Review 06/18/2024 1 30 Encounter Details Date Type Department Care Team (Late st Contact Info) Description 08/01/2024 9:00 AM CDT Clinical Support [facility] On[facility] Services [address] [place] [phone] Cruzito Orr MD [address] [place] [address] Urothelial cancer (HCC) (Primary Dx) Discharge Disposition: [...] Sign Reading Time Taken Comments Blood Pressure 135/86 08/01/2024 8:59 AM CDT Pulse 70 08/01/2024 8:59 AM CDT Temperature 36.4 ??C (97.5 ??F) 08/01/2024 8:59 AM CD T Respiratory Rate 18 08/01/2024 8:59 AM CDT Oxygen Saturation 100% 08/01/2024 8:59 AM CDT Inhaled Oxygen Concentration - - Weight 64.3 kg (141 lb 12.8 oz) 08/01/2024 8:59 AM CDT Height - - Body Mass Index 26.79 07/09/2024 3:33 PM CDT documented in this encounter Miscellaneous Notes * Interdisciplinary - Whitley Rodriguez RN - 08/01/2024 9:00 AM CDT Patient to treatment bay. Plan of care for the day reviewed. VS obtained. Pt port accessed per company policy, flushed without difficulty. Site secured with dressing. Pt questioning how she should take her nausea medication at home because after her first treatment when she took the Zyprexa she experienced brain fog for three days after. So the next full cycle she was told by Dr. Orr to hold the Zyrpexa and take Zofran and Compazine only. She then reported stomach cramps, constipation and hemorrhoids for about 4 days after treatment. Pt says with both nausea has been controlled but she said she would take the brain fog over the constipation. Informed patient that she is also getting Cinva nti today to help with nausea up to 3 days after chemotherapy, which is replacing the Emend she goton the first day. Spoke with Dr. Orr, Pt should take the Zyprexa for the three days after treatment. Hold Zofran completely as this is likely the cause of constipation and if still needing nausea medication after the three days then she can take Compazine. Pt aware to not take Zyprexa and Compazine together. Pt made aware of plan and wrote this down on her medication log. Pt medicated without incident. At completion of infusion, site flushed with NS and heparin and port de-accessed. Site secured with bandaid. AVS printed. Pt left in safe disposition. documented in this encounter Plan of Treatment Upcoming Encounters Date Type Department Care Team (Late st Contact Info) Description 10/16/2024 10:40 AM LOSS PREVENTION RESEARCH ENGINEER Office Visit [facility] Oncology Services [address] [place] [phone] [place] [address] [place] [address] Discharge Disposition: Discharged to home or Selfcare 10/16/2024 1:20 PM LOSS PREVENTION RESEARCH ENGINEER Clinical Support [facility] Oncology Services [address] [place] [phone] Discharge Disposition: Discharged to home or Selfcare 10/17/2024 1:00 PM LOSS PREVENTION RESEARCH ENGINEER Clinical Support [facility] Oncology Services [address] [place] [phone] Discharge Disposition: Discharged to home or Selfcare 10/23/2024 9:20 AM LOSS PREVENTION RESEARCH ENGINEER Clinical Support [facility] Oncology Services [address] [place] [phone] Discharge Disposition: Discharged to home or Selfcare 10/24/2024 1:00 PM LOSS PREVENTION RESEARCH ENGINEER Clinical Support [facility] On[facility] Services [address] [place] [phone] Discharge Disposition: Discharged to home or Selfcare documented as of this encounter Visit Diagnoses Diagnosis Urothelial cancer (HCC)- Primary Malignant neoplasm of other specified sites of urinary organs documented in this encounter Administered Medications Inactive Administered Medications - up to 3 most recent administrations Medication Order MAR Action Action Date Dose Rate Site 0.9 % sodium chloride solution at 125 mL/hr, Intravenous, ONCE, 1 dose, On Laura 08/01/24 at 0930Indications:Urothelial cancer (HCC) New Bag 08/01/2024 9:21 AM CDT 250 mL 125 mL/hr aprepitant (CINVANTI) injection 130 mg 130 mg, Intravenous, ONCE, 1 dose, On Laura 08/01/24 at 0930Indications:Urothelial cancer (HCC) Given 08/01/2024 9:32 AM CDT 130 mg CARBOplatin 372.5 mg in sodium chloride 0.9 % 250 mL chemo infusion 372.5 mg (Target AUC = 5), Intravenous, ONCE, 1 dose, On Laura 08/01/24 at 1030, Administer over 30 MinutesIndications:Urotheli al cancer (HCC) New Bag 08/01/2024 11:11 AM CDT 372.5 mg dexamethasone (DECADRON) injection 12 mg 12 mg, Intravenous, ONCE, 1 dose, On Laura 08/01/24 at 0930Indications:Urothelial cancer (HCC) Given 08/01/2024 9:45 AM CDT 12 mg gemcitabine 1,650 mg in sodium chloride 0.9 % 250 mL chemo infusion 1,650 mg (1,000 mg/m2 ? 1.65 m2 Treatment Plan BSA from Recorded weight), Intravenous, ONCE, 1 dose, On Laura 08/01/24 at 1030, Administer over 30 MinutesIndications:Urotheli al cancer (HCC) New Bag 08/01/2024 10:29 AM CDT 1,650 mg Heparin Na (Pork) Lock Flsh PF SOLN 50 Units 50 Units, Intravenous, PRN, Starting on Laura 08/01/24 at 1119, Until Mon08/01/24 at 1850, Line Care, Line care per [facility] Grid.Indications:Urothelial cancer (HCC) Given 08/01/2024 11:51 AM CDT 50 Units OLANZapine (ZYPREXA) tablet 5 mg 5 mg, Oral, ONCE, 1 dose, On Laura 08/01/24 at 0930Indications:Urothelial cancer (HCC) Given 08/01/2024 9:26 AM CDT 5 mg ondansetron (ZOFRAN) injection 8 mg 8 mg, Intravenous, ONCE, 1 dose, On Laura 08/01/24 at 0930Indications:Urothelial cancer (HCC) Given 08/01/2024 9:26 AM CDT 8 mg documented in this encounter Care Teams Lawn Care Worker Relationship Specialty Start Date End Date Karson Forbes MD [address] [place] [address] PCP - General Family Medicine 06/18/24 Levi Carpenter DPM Podiatry 06/07/16 Los Perry MD [address] [phone] Consulting Physician General Surgery 06/20/24 documented as of this encounter
--- OUTSIDE RECORDS SUMMARY | 2024-10-13 03:59 | XMS_ITS | Encounter Summary ---
Author Organization [facility] Care Team Providers Care Cert Pharmacy Tech Name Role Phone Levi Carpenter DPM Unavailable [phone] Karson Forbes MD Primary Care Provider [phone] Los Perry MD Unavailable Encounter Details Date Type Department Care Team (Latest Contact Info) Description 07/31/2024 Travel Social History Tobacco Use Types Packs/Day [...] st Contact Info) Description 10/16/2024 10:40 AM CANE STRIPPER Office Visit [facility] Oncology Services [address] [place] [phone] Cruzito Orr MD [address] [place] [address] Discharge Disposition: Discharged to home or Selfcare 10/16/2024 1:20 PM CANE STRIPPER Clinical Support [facility] Oncology Services [address] [place] [phone] Discharge Disposition: Discharged to home or Selfcare 10/17/2024 1:00 PM CANE STRIPPER Clinical Support [facility] Oncology Services [address] [place] [phone] Discharge Disposition: Discharged to home or Selfcare 10/23/2024 9:20 AM CANE STRIPPER Clinical Support [facility] Oncology Services [address] [place] [phone] Discharge Disposition: Discharged to home or Selfcare 10/24/2024 1:00 PM CANE STRIPPER Clinical Support [facility] Oncology Services [address] [place] [phone] Discharge Disposition: Discharged to home or Selfcare documented as of this encounter Visit Diagnoses Not on filedocumented in this encounter Care Teams Cert Pharmacy Tech Relationship Specialty Start Date End Date Karson Forbes MD [address] [place] [address] PCP - General Family Medicine 06/18/24 Levi Carpenter DPM Podiatry 06/07/16 Los Perry MD [address] [phone] Consulting Physician General Surgery 06/20/24 documented as of this encounter
--- OUTSIDE RECORDS SUMMARY | 2024-10-13 03:59 | XMS_ITS | Encounter Summary ---
Author Organization [facility] Care Team Providers Care Sustainability Project Manager Name Role Phone Levi Carpenter DPM Unavailable [phone] Karson Forbes MD Primary Care Provider [phone] Los Perry MD Unavailable Encounter Details Date Type Department Care Team (Latest Contact Info) Description 06/25/2024 Travel Social History Tobacco Use Types Packs/Day [...] st Contact Info) Description 10/16/2024 10:40 AM ALLIANCE CONSULTANT Office Visit [facility] Oncology Services [address] [place] [phone] Cruzito Orr MD [address] [place] [address] Discharge Disposition: Discharged to home or Selfcare 10/16/2024 1:20 PM ALLIANCE CONSULTANT Clinical Support [facility] Oncology Services [address] [place] [phone] Discharge Disposition: Discharged to home or Selfcare 10/17/2024 1:00 PM ALLIANCE CONSULTANT Clinical Support [facility] Oncology Services [address] [place] [phone] Discharge Disposition: Discharged to home or Selfcare 10/23/2024 9:20 AM ALLIANCE CONSULTANT Clinical Support [facility] Oncology Services [address] [place] [phone] Discharge Disposition: Discharged to home or Selfcare 10/24/2024 1:00 PM ALLIANCE CONSULTANT Clinical Support [facility] Oncology Services [address] [place] [phone] Discharge Disposition: Discharged to home or Selfcare documented as of this encounter Visit Diagnoses Not on filedocumented in this encounter Care Teams Sustainability Project Manager Relationship Specialty Start Date End Date Karson Forbes MD [address] [place] [address] PCP - General Family Medicine 06/18/24 Levi Carpenter DPM Podiatry 06/07/16 Los Perry MD [address] [phone] Consulting Physician General Surgery 06/20/24 documented as of this encounter
--- OUTSIDE RECORDS SUMMARY | 2024-10-13 03:59 | XMS_ITS | Encounter Summary ---
Author Organization [facility] Care Team Providers Care Slag Worker Name Role Phone Levi Carpenter DPM Unavailable [phone] Karson Forbes MD Primary Care Provider [phone] Los Perry MD Unavailable Encounter Details Date Type Department Care Team (Latest Contact Info) Description 07/04/2024 Travel Social History Tobacco Use Types Packs/Day [...] st Contact Info) Description 10/16/2024 10:40 AM SILICA DRY PRESS HELPER Office Visit [facility] On[facility] Services [address] [place] [phone] Cruzito Orr MD [address] [place] [address] Discharge Disposition: Discharged to home or Selfcare 10/16/2024 1:20 PM SILICA DRY PRESS HELPER Clinical Support [facility] Oncology Services [address] [place] [phone] Discharge Disposition: Discharged to home or Selfcare 10/17/2024 1:00 PM SILICA DRY PRESS HELPER Clinical Support [facility] Oncology Services [address] [place] [phone] Discharge Disposition: Discharged to home or Selfcare 10/23/2024 9:20 AM SILICA DRY PRESS HELPER Clinical Support [facility] Oncology Services [address] [place] [phone] Discharge Disposition: Discharged to home or Selfcare 10/24/2024 1:00 PM SILICA DRY PRESS HELPER Clinical Support [facility] Oncology Services [address] [place] [phone] Discharge Disposition: Discharged to home or Selfcare documented as of this encounter Visit Diagnoses Not on filedocumented in this encounter Care Teams Slag Worker Relationship Specialty Start Date End Date Karson Forbes MD [address] [place] [address] PCP - General Family Medicine 06/18/24 Levi Carpenter DPM Podiatry 06/07/16 Los Perry MD [address] [phone] Consulting Physician General Surgery 06/20/24 documented as of this encounter
--- OUTSIDE RECORDS SUMMARY | 2024-10-13 03:59 | XMS_ITS | Encounter Summary ---
Author Organization [facility] HealthCare Address [address] [facility] [place] [address] Phone Care Team Providers Care Technical Fellow Name Role Phone Levi Carpenter DPM Unavailable [phone] Karson Forbes MD Primary Care Provider [phone] Los Perry MD Unavailable Encounter Details Date Type Department Care Team (Late st Contact Info) Description 07/31/2024 8:40 AM CDT Clinical Support [facility] Oncology Services [address] [place] [phone] Cruzito Orr MD [address] [place] [address] Stage 3 chronic kidney disease, unspecified whether [...] * Interdisciplinary - Chauncey Osborn RN - 07/31/2024 8:40 AM CDT Pt ambulated to lab room. Labs drawn from port x1 attempt. Flushed easily with NS and with good blood return. Heparin flushed per protocol. Port deaccessed and site covered with gauze and paper tape.Pt tolerated well and left in stable condition. documented in this encounter Plan of Treatment Upcoming Encounters Date Type Department Care Team (Late st Contact Info) Description 10/16/2024 10:40 AM SOLE ROUNDER Office Visit [facility] Oncology Services [address] [place] [phone] [place] [address] [place] [address] Discharge Disposition: Discharged to home or Selfcare 10/16/2024 1:20 PM SOLE ROUNDER Clinical Support [facility] Oncology Services [address] [place] [phone] Discharge Disposition: Discharged to home or Selfcare 10/17/2024 1:00 PM SOLE ROUNDER Clinical Support [facility] Oncology Services [address] [place] [phone] Discharge Disposition: Discharged to home or Selfcare 10/23/2024 9:20 AM SOLE ROUNDER Clinical Support [facility] Oncology Services [address] [place] [phone] Discharge Disposition: Discharged to home or Selfcare 10/24/2024 1:00 PM SOLE ROUNDER Clinical Support [facility] Oncology Services [address] [place] [phone] Discharge Disposition: Discharged to home or Selfcare documented as of this encounter Procedures Procedure Name Priority Date/Time Associated Diagnosis Comments CBC WITH AUTO DIFFERENTIAL STAT 07/31/2024 8:55 AM CDT Urothelial cancer (HCC) CMP (COMPREHENSIVE METABOLIC PANEL) STAT 07/31/2024 8:55 AM CDT Urothelial cancer (HCC) COMPLETE BLOOD COUNT (CBC) WITH DIFF STAT 07/31/2024 8:55 AM CDT Urothelial cancer (HCC) documented in this encounter Results * (ABNORMAL) CBC WITH AUTO DIFFERENTIAL (07/31/2024 8:55 AM CDT) WBC 4.31 4.00 - 12.00 10(3)/mcL 07/31/2024 9:18 AM CDT [facility] RBC 3.41(L) 3.80 - 5.30 10(6)/mcL 07/31/2024 9:18 AM CDT [facility] HEMOGLOBIN (HGB) 10.9(L) 12.0 - 15.8 g/dL 07/31/2024 9:18 AM CDT [facility] HEMATOCRIT (HCT) 31.8(L) 36.0 - 47.0 % 07/31/2024 9:18 AM CDT [facility] MCV 93.3 82.0 - 96.0 fL 07/31/2024 9:18 AM CDT [facility] MCH 32.0 26.0 - 34.0 pg 07/31/2024 9:18 AM CDT [facility] MCHC 34.3 31.0 - 36.0 g/dL 07/31/2024 9:18 AM CDT [facility] PLATELET COUNT 259 140 - 440 10(3)/mcL 07/31/2024 9:18 AM CDT [facility] RDW 14.2 11.8 - 15.5 % 07/31/2024 9:18 AM CDT [facility] MPV 9.5(L) 9.7 - 12.4 fL 07/31/2024 9:18 AM CDT [facility] NEUTROPHILS 32.2(L) 47.0 - 73.0 % 07/31/2024 9:18 AM CDT [facility] LYMPHOCYTES 49.7(H) 18.0 - 42.0 % 07/31/2024 9:18 AM CDT [facility] MONOCYTES 16.9(H) 4.0 - 12.0 % 07/31/2024 9:18 AM CDT [facility] EOSINOPHILS 0.7 0.0 - 5.0 % 07/31/2024 9:18 AM CDT [facility] BASOPHILS 0.5 0.0 - 1.0 % 07/31/2024 9:18 AM CDT [facility] ABSOLUTE NEUTROPHILS 1.39(L) 1.60 - 7.70 10(3)/[facility] 07/31/2024 9:18 AM CDT [facility] ABSOLUTE LYMPHOCYTES 2.14 1.30 - 3.20 10(3)/[facility] 07/31/2024 9:18 AM CDT [facility] ABSOLUTE MONOCYTES 0.73 0.20 - 1.00 10(3)/[facility] 07/31/2024 9:18 AM CDT [facility] ABSOLUTE EOSINOPHIL 0.03 0.00 - 0.40 10(3)/[facility] 07/31/2024 9:18 AM CDT [facility] ABSOLUTE BASOPHILS 0.02 0.00 - 0.10 10(3)/[facility] 07/31/2024 9:18 AM CDT [facility] NRBC PER 100 WBC 0 07/31/20 9:18 AM CDT [facility] Blood Sub-Q Port Venou s Access Device (Medi-Port, Implanted Port) / Unknown 07/31/2024 8:55 AM CDT 07/31/2024 8:55 AM CDT Cruziot Orr MD HEMATOLOGY ORDERABLES Fi nal Result [facility] [address] [place] [address] * (ABNORMAL) CMP (COMPREHENSIVE METABOLIC PANEL) (07/31/2024 8:55 AM CDT) SODIUM 138 136 - 145 mmol/L 07/31/2024 9:29 AM CDT [facility] POTASSIUM 4.3 3.5 - 5.1 mmol/L 07/31/2024 9:29 AM CDT [facility] CHLORIDE 110(H) 98 - 107 mmol/L 07/31/2024 9:29 AM CDT [facility] CO2, VENOUS 23 22 - 30 mmol/L 07/31/2024 9:29 AM CDT [facility] ANION GAP 9.3 <18.0 mmol/L 07/31/2024 9:29 AM CDT [facility] GLUCOSE 92 70 - 99 mg/dL 07/31/2024 9:29 AM CDT [facility] BUN 13 10 - 20 mg/dL 07/31/2024 9:29 AM CDT [facility] CREATININE, BLOOD 1.13(H) 0.60 - 1.00 mg/dL 07/31/2024 9:29 AM CDT [facility] BUN/CREATININE RATIO 12 12 - 20 ratio 07/31/2024 9:29 AM CDT [facility] TOTAL PROTEIN 5.9(L) 6.3 - 8.2 g/dL 07/31/2024 9:29 AM CDT [facility] ALBUMIN 3.8 3.5 - 5.0 g/dL 07/31/2024 9:29 AM CDT [facility] A/G RATIO 1.8 1.0 - 2.2 07/31/2024 9:29 AM CDT [facility] CALCIUM 8.5(L) 8.7 - 10.5 mg/dL 07/31/2024 9:29 AM CDT [facility] T BILI 0.1(L) 0.2 - 1.2 mg/dL 07/31/2024 9:29 AM CDT [facility] SGOT (AST) 19 5 - 34 U/L 07/31/2024 9:29 AM CDT [facility] SGPT (ALT) 22 0 - 55 U/L 07/31/2024 9:29 AM CDT [facility] ALKALINE PHOSPHATASE 75 40 - 150 U/L 07/31/2024 9:29 AM CDT [facility] IS THE PATIENT REQUIRED TO BE FASTING? No 07/31/2024 9:29 AM CDT [facility] GFR, ESTIMATED 56(L) >=60 07/31/2024 9:29 AM CDT [facility] Comment: Creatinine Clearance is the preferred criteria for selecting drug dose adjustments in renally impaired patients. ??The GFR is provided as additional pertinent clinical information. GFR is reported in mL/min/1.73 sq m. Calculation based on the Chronic Kidney Disease Epidemiology Collaboration (CKD- EPI) equation refit without adjustment for race. GFR, EST. 60 >=60 024 9:29 AM CDT [facility] GFR, EST. NONAFRICAN 49(L) >=60 07/31/2024 9:29 AM CDT [facility] Blood Sub-Q Port Venou s Access Device (Medi-Port, Implanted Port) / Unknown 07/31/2024 8:55 AM CDT 07/31/2024 8:55 AM CDT us Cruzito Orr MD CHEMISTRY ORDERABLES Fin al Result [facility] [address] [place] [address] documented in this encounter Visit Diagnoses Diagnosis [...] Units 50 Units, Intravenous, PRN, Starting on Mon07/31/24 at 0853, Until Mon07/31/24 at 1057, Line CareIndications:Urothelial cancer (HCC) Given 07/31/2024 8:54 AM CDT 50 Units documented in this encounter Care Teams Technical Fellow Relationship Specialty Start Date End Date Karson Forbes MD [address] [place] [address] PCP - General Family Medicine 06/18/24 Levi Carpenter DPM Podiatry 06/07/16 Los Perry MD [address] [phone] Consulting Physician General Surgery 06/20/24 documented as of this encounter
--- OUTSIDE RECORDS SUMMARY | 2024-10-13 03:59 | XMS_ITS | Encounter Summary ---
Author Organization [facility] Address [address] [place] [address] Phone Care Team Providers Care Hydraulic Lift Driver Name Role Phone Levi Carpenter Mirlande GARCIA Unavailable [phone] Karson Forbes MD Primary Care Provider [phone] Los Perry MD Unavailable [phone] Reason for Visit * Auth/Cert (Routine) Specialty Diagnoses / Procedures Referred By Contmanuela t Referred To Contact Diagnoses ENCOUNTER FOR INSERTION OF TUNNELED CENTRAL VENOUS CATHETER WITH PORT Procedures INSERTION PORT -A -CATH Los Perry MD [address] [address] Phone: tel: fax: Referral ID Status Reason Start Date Expiration Date Visits Re quested Visits Authorized [id number] 1 1 Encounter Details Date Type Department Care Team (Late st Contact Info) Description 07/02/2024 10:14 AM CDT [facility] [address] [place] [address] Rudi Kirk MD [address] [place] [address] Anesthesia Record Procedure Summary Procedure Name Responsible Anesthesiologist Anesthesia Start Time Anesthesia Stop Time INSERTION OF POWER PORT, RIGHT CHEST (Chest) Rudi Kirk MD 07/02/24 1014 07/02/24 1111 Events Date Time Event Comment 07/02/2024 0951 1014 An Start 1014 An Start Data 1014 ANASSESSCMPLT 1014 Start Supplemental O2 1019 Anesthesia Ready 1058 Stop Supplemental O2 1058 Stop Data Collection 1058 Transort to Postop 1111 Handoff to RN I completed my SBAR handoff to the receiving nurse. Last vitals BP: (!) 136/98 Temp: (!) 35.6 ??C Pulse: 69 Resp: 14 SpO2: 98 % 1111 An Stop Last vitals: BP : (!) 136/98 Temp: (!) 35.6 ??C Pulse: 69 Resp: 14 SpO2: 98 % Meds Name Total propofol 10 mg/mL 302,737.5 mcg ceFAZolin (ANCEF) injection 2 g 2 g lactated ringers infusion 750 mL * Agents No agents on file. * Blood No blood administrations on file. Lines, Drains, and Airways Type Details Placement Removal RETIRED Incision 07/15/16; 1527; Left ; groin; vascular puncture; Angioseal Closure, island dsg D&I, no hematoma; 07/27/24; 4 07/15/16 1527 by Cuca Cowan RN 07/27/2443 by Auto-Discontinue, System RETIRED Incision 09/09/16; 0940; Righ t; groin; vascular puncture; Angioseal closure, Island dsg D&I, no hematoma; 07/27/24; 0044 09/09/16 0940 by Cuca Cowan RN 07/27/2443 by Auto-Discontinwolfgang, System RETIRED Incision 09/09/16; 0942; Left ; groin; vascular puncture; Angioseal closure, Island dsg D&I, no hematoma; 07/27/24; 0044 09/09/16 0942 by Cuca Cowan RN 10/19/24 0044 by Auto-Discontinue, System RETIRED Incision 11/25/16; 1538; Righ t; medial; foot; 07/27/24; 0044 11/25/16 1538 by Alfredo Monteiro RN 07/27/24 0044 by Auto-Discontinue, System Peripheral IV - Single Lumen 2; median vein (underside of arm), left, metacarpal vein (top of hand), left; topical anesthetic spray applied, tolerated well, appears comfortable; 07/27/24; 0044 02/17/17 1114 by 07/27/24 0044 by Auto-Discontinue, System RETIRED Incision 02/17/17; 1319; Left ; medial; foot; 07/27/24; 0044 02/17/17 1319 by Alfredo Monteiro RN 07/27/24 0044 by Auto-Discontinue, System RETIRED Incision 02/17/17; 1402; Left ; lateral; foot; 07/27/24; 00402/17/17 1402 by Alfredo Monteiro RN 07/27/24 0044 by Auto-Discontinue, System PIV-Single Lumen Placement Date: 07/02/24; Placement Time: 0802; Catheter Size: 22 G; Orientation: Posterior, Right; Location: Hand; Site Prep: Chlorhexidine ; Technique: Anatomical landmarks; Inserted by: winter; Insertion Attempts: 2; Difficult Venous Access? No; Patient Tolerance: Tolerated well; Removal Date: 07/02/24; Removal Time: 1215 07/02/24 0802 by Kimberly Urbano RN 07/02/24 1215 by Chauncey Monet RN *Wound 07/02/24; 1037; Incision; Right; Chest; 08/01/24; 1301 07/02/24 1037 by Rea Foster RN 08/01/24 1301 by Auto-Discontinwolfgang, System Single Lumen Implantable Port 07/02/24; 1039; Yes; Right; Chest; DR. PERRY; 08/19/24; 0214 07/02/24 1039 by Rea Foster RN 08/19/24 0214 by Yane Culver RN documented in this encounter Social History Tobacco Use Types Packs/Day Years [...] on file documented as of this encounter OR Notes * Anesthesia Postprocedure Evaluation - Rudi Kirk MD - 07/02/2024 11:11 AM CDT Patient: Mirtha Cherry Procedure Summary Date: 07/02/24 Room / [facility] Anesthesia Start: 1014 Anesthesia Stop: 1111 Procedure: INSERTION OF POWER PORT, RIGHT CHEST (Chest) Diagnosis: (ENCOUNTER FOR INSERTION OF TUNNELED CENTRAL VENOUS CATHETER WITH PORT) Surgeons: Los Perry MD Responsible Provider: Rudi Kirk MD Anesthesia Type: MAC ASA Status: 3 Anesthesia Type: MAC Last vitals Vitals Value Taken Time BP 136/98 07/02/24 1104 Temp 35.6 ??C 07/02/24 1104 Pulse 69 07/02/24 1104 Resp 14 07/02/24 1104 SpO2 98 % 07/02/24 1104 Pain score: 0 Pain management: adequate Patient location during evaluation: PACU Patient participation: Sufficiently recovered to participate Level of consciousness: sleepy but conscious Cardiovascular status: acceptable Respiratory status: acceptable Hydration status: acceptable Anesthetic complications: no Airway patency: patent Nausea and Vomiting: none * Anesthesia Preprocedure Evaluation - Rudi Kirk MD - 07/02/2024 9:51 AM CDT Anesthesia Evaluation Procedure Information Date/Time: 07/02/2440 Procedure: INSERTION OF POWER PORT, RIGHT OR LEFT (Chest) Location: [facility] OR 05 / [facility] Surgeons: Los Perry MD Anesthesia Evaluation Anesthesia Plan ASA 3 MAC [facility] ANESTHESIA PREOPERATIVE NOTE Date of Procedure: 07/02/2024 Patient/Guardian (s) Interviewed: yes NPO Status Acceptable: yes Labs and Pretesting Reviewed in Epic: yes Positive Test: no History of Anesthesia complications: no Lab Results Component Value Date WBC 10.90 02/10/2017 HEMOGLOBIN 14.5 02/10/2017 HEMATOCRIT 42.9 02/10/2017 MCV 89.6 02/10/2017 Lab Results Component Value Date SODIUM 143 02/10/2017 POTASSIUM 4.0 02/10/2017 CHLORIDE 106 02/10/2017 CO2VEN 25 02/10/2017 GLUCOSE 90 02/10/2017 ANIONGAP 16.0 02/10/2017 BUN 11 02/10/2017 CREATININE 0.78 02/10/2017 CALCIUM 9.2 02/10/2017 Lab Results Component Value Date INR 0.95 06/01/2017 PTP 11.8 02/10/2017 No results found. No results found. Age:59 y.o. Wt Readings from Last 1 Encounters: 07/02/24 136 lb 12.8 oz (62.1 kg) Body mass index is 25.85 kg/m??. Planned Procedure: Procedure(s): INSERTION OF POWER PORT, RIGHT OR LEFT Preoperative Diagnosis: ENCOUNTER FOR INSERTION OF TUNNELED CENTRAL VENOUS CATHETER WITH PORT Allergies Allergen Reactions Iodine Itching Adhesive Tape Itching, Unknown and Other (see Comments) blisters Betadine [Povidone Iodine] Itching Codeine Nausea and Unknown Prior to Admission medications Medication Sig Start Date End Date Taking? Authorizing Provider amoxicillin-clavulanate (AUGMENTIN) 875-125 MG Tablet Take 1 Tablet by mouth 2 times daily. Indications: left ear infection 06/24/24 07/04/24 Yes Charles Stauffer MD atorvastatin (LIPITOR) 80 MG Tablet Take 40 mg by mouth daily. Yes Charles Stauffer MD clopidogrel (PLAVIX) 75 MG Tablet Take 75 mg by mouth daily. Instructed to hold for 5 days prior tosurgery on 07/02/2024 Yes Charles Stauffer MD Coenzyme Q10 400 MG Capsule Take by mouth daily. Yes Charles Stauffer MD metoprolol tartrate (LOPRESSOR) 50 MG Tablet Take 50 mg by mouth every morning. Yes Charles Stauffer MD Multiple Vitamin (MULTIVITAMIN PO) Take by mouth. Instructed to hold for 3 days prior to surgery on07/02/2024 Yes Chalres Stauffer MD OLANZapine (ZYPREXA) 5 MG Tablet Take 1 Tablet by mouth See Admin Instructions. Take one tablet nightly for 3 nights, starting the day after chemotherapy. 21 day cycle. Patient not taking: Reported on 07/02/2024 06/28/24 Cruzito Orr MD ondansetron (ZOFRAN) 8 MG Tablet Take 1 Tablet by mouth every 8 hours as needed for Nausea - 1st line. Take one tablet every 8 hours as needed for nausea Patient not taking: Reported on 07/02/2024 06/28/24 Cruzito Orr MD Probiotic Product (PROBIOTIC DAILY PO) Take by mouth. Yes Charles Stauffer MD prochlorperazine (COMPAZINE) 10 MG Tablet Take 1 Tablet by mouth every 6 hours as needed for Nausea- 2nd line. Take one tablet every 6 hours as needed for nausea. Patient not taking: Reported on 07/02/2024 06/28/24 Cruzito Orr MD SUMAtriptan (IMITREX) 50 MG Tablet Take 1 Tab by mouth as needed. 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 Hyperlipidemia 10/09/2005 Menopause 10/09/2011 Migraine Obesity PVD (peripheral vascular disease) (HCC) stents in iliac arteries Past Surgical History: Procedure Laterality Date BUNIONECTOMY Right 11/25/2016 Procedure: MACIAS/JESSA BUNIONECTOMY AND TAILORS BUNIONECTOMY RIGHT FOOT; Surgeon: Levi Carpenter DPM; Location: [facility]; Service: BUNIONECTOMY Left 02/17/2017 Procedure: BUNIONECTOMY Macias JESSA TALARS; Surgeon: Levi Carpenter DPM; Location: [facility]; Service: CARDIAC CATHERIZATION 10/09/2015 CHOLECYSTECTOMY 1998 GALLBLADDER SURGERY 07/09/1998 laparoscopic MASTECTOMY BILATERAL Bilateral 05/28/2018 OTHER SURGICAL HISTORY 01/2008, 07/2005, 2016 circulatory stent implants(4) Illiac OTHER SURGICAL HISTORY 10/09/2004 polyps removed from vocal cords TOTAL NEPHRECTOMY Left 05/17/2024 Preanesthetic Exam: Mental Status:awake Airway Assessment Mallampati Scale: 2 TM distance: >3fb Neck ROM: full Lungs: clear to auscultation bilaterally Heart: regular rate and rhythm, S1, S2 normal, no murmur, click, rub or gallop BP 121/79 Pulse 70 Temp 36.8 ??C (Temporal) Resp 16 Ht 5' 1 (1.549 m) Wt 136 lb 12.8 oz (62.1 kg) SpO2 96% BMI 25.85 kg/m?? ASA physical status: 3 Anesthetic plan: Monitored Anesthesia Care (MAC) Anesthesia plan was discussed with surgeon: yes Risk,benefits, and alternatives explained to patient/guardian:yes All questions answered:yes Rudi Kirk MD 07/02/2024, 9:51 AM CDT documented in this encounter Plan of Treatment Upcoming Encounters Date Type Department Care Team (Late st Contact Info) Description 10/16/2024 10:40 AM DIRECTOR OF EARLY CHILDHOOD EDUCATION Office Visit [facility] Oncology Services [address] [place] [address] Cruzito Orr MD [address] [place] [address] Discharge Disposition: Discharged to home or Selfcare 10/16/2024 1:20 PM DIRECTOR OF EARLY CHILDHOOD EDUCATION Clinical Support [facility] Oncology Services [address] [place] [address] Discharge Disposition: Discharged to home or Selfcare 10/17/2024 1:00 PM DIRECTOR OF EARLY CHILDHOOD EDUCATION Clinical Support [facility] Oncology Services [address] [place] [phone] Discharge Disposition: Discharged to home or Selfcare 10/23/2024 9:20 AM DIRECTOR OF EARLY CHILDHOOD EDUCATION Clinical Support [facility] Oncology Services [address] [place] [phone] Discharge Disposition: Discharged to home or Selfcare 10/24/2024 1:00 PM DIRECTOR OF EARLY CHILDHOOD EDUCATION Clinical Support [facility] Oncology Services [address] [place] [phone] Discharge Disposition: Discharged to home or Selfcare documented as of this encounter Visit Diagnoses Not on filedocumented in this encounter Administered Medications Inactive Administered Medications - up to 3 most recent administrations Medication Order MAR Action Action Date Dose Rate Site ceFAZolin (ANCEF) injection 2 g 2 g, Intravenous, ONCE, 1 dose, On Mon07/02/24 at 0800, INTRA-OP, Indications: Perioperative PharmacoprophylaxisIndicatio ns:Perioperative Pharmacoprophylaxis Given 07/02/2024 10:20 AM CDT 2 g propofol (DIPRIVAN) injection Intravenous, CONTINUOUS (in OR), Starting on Mon07/02/24 at 1019, Until Mon07/02/24 at 1111 New Bag 07/02/2024 10:19 AM CDT 125 mcg/kg/min 46.575 mL/hr documented in this encounter Care Teams Hydraulic Lift Driver Relationship Specialty Start Date End Date Karson Forbes [place] [address] PCP - General Family Medicine 06/18/24 Levi Carpenter DPM Podiatry 06/07/16 Los Perry MD [address] [phone] Consulting Physician General Surgery 06/20/24 documented as of this encounter
--- OUTSIDE RECORDS SUMMARY | 2024-10-13 03:59 | XMS_ITS | Encounter Summary ---
Author Organization [facility] Care Team Providers Care Pre Algebra Teacher Name Role Phone Levi Carpenter DPM Unavailable [phone] Karson Forbes MD Primary Care Provider [phone] Los Perry MD Unavailable Encounter Details Date Type Department Care Team (Latest Contact Info) Description 08/01/2024 Travel Social History Tobacco Use Types Packs/Day [...] st Contact Info) Description 10/16/2024 10:40 AM HOP WEIGHER Office Visit [facility] Oncology Services [address] [place] [phone] Cruzito Orr MD [address] [place] [address] Discharge Disposition: Discharged to home or Selfcare 10/16/2024 1:20 PM HOP WEIGHER Clinical Support [facility] Oncology Services [address] [place] [phone] Discharge Disposition: Discharged to home or Selfcare 10/17/2024 1:00 PM HOP WEIGHER Clinical Support [facility] Oncology Services [address] [place] [phone] Discharge Disposition: Discharged to home or Selfcare 10/23/2024 9:20 AM HOP WEIGHER Clinical Support [facility] Oncology Services [address] [place] [phone] Discharge Disposition: Discharged to home or Selfcare 10/24/2024 1:00 PM HOP WEIGHER Clinical Support [facility] Oncology Services [address] [place] [phone] Discharge Disposition: Discharged to home or Selfcare documented as of this encounter Visit Diagnoses Not on filedocumented in this encounter Care Teams Pre Algebra Teacher Relationship Specialty Start Date End Date Karson Forbes MD [address] [place] [address] PCP - General Family Medicine 06/18/24 Levi Carpenter DPM Podiatry 06/07/16 Los Perry MD [address] [phone] Consulting Physician General Surgery 06/20/24 documented as of this encounter
--- OUTSIDE RECORDS SUMMARY | 2024-10-13 03:59 | XMS_ITS | Encounter Summary ---
Author Organization [facility] Care Team Providers Care House Designer Name Role Phone Levi Carpenter DPM Unavailable [phone] Karson Forbes MD Primary Care Provider [phone] Los Perry MD Unavailable Encounter Details Date Type Department Care Team (Latest Contact Info) Description 07/09/2024 Travel Social History Tobacco Use Types Packs/Day [...] st Contact Info) Description 10/16/2024 10:40 AM INSTRUMENT SETTER Office Visit [facility] Oncology Services [address] [place] [phone] Cruzito Orr MD [address] [place] [address] Discharge Disposition: Discharged to home or Selfcare 10/16/2024 1:20 PM INSTRUMENT SETTER Clinical Support [facility] Oncology Services [address] [place] [phone] Discharge Disposition: Discharged to home or Selfcare 10/17/2024 1:00 PM INSTRUMENT SETTER Clinical Support [facility] Oncology Services [address] [place] [phone] Discharge Disposition: Discharged to home or Selfcare 10/23/2024 9:20 AM INSTRUMENT SETTER Clinical Support [facility] Oncology Services [address] [place] [phone] Discharge Disposition: Discharged to home or Selfcare 10/24/2024 1:00 PM INSTRUMENT SETTER Clinical Support [facility] Oncology Services [address] [place] [phone] Discharge Disposition: Discharged to home or Selfcare documented as of this encounter Visit Diagnoses Not on filedocumented in this encounter Care Teams House Designer Relationship Specialty Start Date End Date Karson Forbes MD [address] [place] [address] PCP - General Family Medicine 06/18/24 Levi Carpenter DPM Podiatry 06/07/16 Los Perry MD [address] [phone] Consulting Physician General Surgery 06/20/24 documented as of this encounter
--- OUTSIDE RECORDS SUMMARY | 2024-10-13 03:59 | XMS_ITS | Encounter Summary ---
Author Organization [facility] HealthCare Address [address] [facility] [place] [address] Phone Care Team Providers Care Truer Pinion And Wheel Name Role Phone Levi Carpenter DPM Unavailable [phone] Karson Forbes MD Primary Care Provider [phone] Los Perry MD Unavailable Encounter Details Date Type Department Care Team (Late st Contact Info) Description 07/24/2024 8:40 AM CDT Clinical Support [facility] Oncology Services [address] [place] [phone] Cruzito Orr MD [address] [place] [address] Urothelial cancer (HCC) (Primary Dx) Discharge Disposition: [...] - Inhaled Oxygen Concentration - - Weight 63.9 kg (140 lb 12.8 oz) 07/24/2024 8:55 AM CDT Height - - Body Mass Index 26.6 07/09/2024 3:33 PM CDT documented in this encounter Miscellaneous Notes * Interdisciplinary - Whitley Rodriguez RN - 07/24/2024 8:40 AM CDT Patient to lab room for scheduled labs. Pt brought a specialty lab box from [employer] with her tohave drawn as well that was ordered by her doctor at [facility], Dr. Phan. This nurse openedtest kit and kit only included a fed ex label, fed ex shipping bag and two lab specimen tubes and acard with a bar code and patient web site to log in/create an account. There was no specimen labelsor other packing or registration forms to correctly identify kit and specimen to patient once drawn. Informed patient that this is not a company we use so I would not be able to log in to this account and without proper identifiers and with our physician orders I cannot draw this. I also spoke with GAGE Mccarthy, who also agreed that this specimen could not be drawn with the lack of identifiers thatwe had and without us using this company to log in and register patient. I showed patient the card insert in the box and directed her to go to the website and create a login and then likely she will get an accession number that we can attach to the specimen or a registration form/consent to put with specimen and then bring this back with her and then we can draw the labs and send off. I also advised her to call Domonique Moody MS at [facility] and make her aware that we were unable to drawn this today and she may be able to get us more documentation. Pt aware she may want to reschedule hernext telemedicine appt on 08/07 as this was to review these results. I did let patient know if she is able to get documentation needed by tomorrow to bring that and kit back with her and we can draw with her chemotherapy tomorrow. Pt verbalized understanding. Pt port accessed per sterile technique,our labs drawn per order. Site flushed with NS and heparin and access removed. Site secured with bandaid. Patient tolerated well. Patient left in safe disposition. documented in this encounter Plan of Treatment Upcoming Encounters Date Type Department Care Team (Late st Contact Info) Description 10/16/2024 10:40 AM CHIEF CHEMIST Office Visit [facility] Oncology Services [address] [place] [phone] Cruzito Orr MD [address] [place] [phone] Discharge Disposition: Discharged to home or Selfcare 10/16/2024 1:20 PM CHIEF CHEMIST Clinical Support [facility] Oncology Services [address] [place] [phone] Discharge Disposition: Discharged to home or Selfcare 10/17/2024 1:00 PM CHIEF CHEMIST Clinical Support [facility] Oncology Services [address] [place] [phone] Discharge Disposition: Discharged to home or Selfcare 10/23/2024 9:20 AM CHIEF CHEMIST Clinical Support [facility] Oncology Services [address] [place] [phone] Discharge Disposition: Discharged to home or Selfcare 10/24/2024 1:00 PM CHIEF CHEMIST Clinical Support [facility] Oncology Services [address] [place] [phone] Discharge Disposition: Discharged to home or Selfcare documented as of this encounter Procedures Procedure Name Priority Date/Time Associated Diagnosis Comments CBC WITH AUTO DIFFERENTIAL STAT 07/24/2024 9:24 AM CDT Urothelial cancer (HCC) CMP (COMPREHENSIVE METABOLIC PANEL) STAT 07/24/2024 9:24 AM CDT Urothelial cancer (HCC) COMPLETE BLOOD COUNT (CBC) WITH DIFF STAT 07/24/2024 9:24 AM CDT Urothelial cancer (HCC) documented in this encounter Results * (ABNORMAL) CBC WITH AUTO DIFFERENTIAL (07/24/2024 9:24 AM CDT) WBC 3.38(L) 4.00 - 12.00 10(3)/mcL 07/24/2024 10:40 AM CDT [facility] RBC 3.40(L) 3.80 - 5.30 10(6)/mcL 07/24/2024 10:40 AM CDT [facility] HEMOGLOBIN (HGB) 10.5(L) 12.0 - 15.8 g/dL 07/24/2024 10:40 AM CDT [facility] HEMATOCRIT (HCT) 30.9(L) 36.0 - 47.0 % 07/24/2024 10:40 AM CDT [facility] MCV 90.9 82.0 - 96.0 fL 07/24/2024 10:40 AM CDT [facility] MCH 30.9 26.0 - 34.0 pg 07/24/2024 10:40 AM CDT [facility] MCHC 34.0 31.0 - 36.0 g/dL 07/24/2024 10:40 AM CDT [facility] PLATELET COUNT 54(L) 140 - 440 10(3)/mcL 07/24/2024 10:40 AM CDT [facility] RDW 12.2 11.8 - 15.5 % 07/24/2024 10:40 AM CDT [facility] MPV 10.7 9.7 - 12.4 fL 07/24/2024 10:40 AM CDT [facility] NEUTROPHIL[facility] 34.9(L) 47.0 - 73.0 % 07/24/2024 10:40 AM CDT [facility] LYMPHOCYTES 53.8(H) 18.0 - 42.0 % 07/24/2024 10:40 AM CDT [facility] MONOCYTES 10.1 4.0 - 12.0 % 07/24/2024 10:40 AM CDT [facility] EOSINOPHILS 0.9 0.0 - 5.0 % 07/24/2024 10:40 AM CDT [facility] BASOPHILS 0.3 0.0 - 1.0 % 07/24/2024 10:40 AM CDT [facility] ABSOLUTE NEUTROPHILS 1.18(L) 1.60 - 7.70 10(3)/[facility] 07/24/2024 10:40 AM CDT [facility] ABSOLUTE LYMPHOCYTES 1.82 1.30 - 3.20 10(3)/[facility] 07/24/2024 10:40 AM CDT [facility] ABSOLUTE MONOCYTES 0.34 0.20 - 1.00 10(3)/[facility] 07/24/2024 10:40 AM CDT [facility] ABSOLUTE EOSINOPHIL 0.03 0.00 - 0.40 10(3)/[facility] 07/24/2024 10:40 AM CDT [facility] ABSOLUTE BASOPHILS 0.01 0.00 - 0.10 10(3)/[facility] 07/24/2024 10:40 AM CDT [facility] NRBC PER 100 WBC 0 07/24/20 10:40 AM CDT [facility] Blood Venipuncture / Unknown 07/24/2024 9:24 AM CDT 07/24/2024 9:24 AM CDT us Cruzito Orr MD HEMATOLOGY ORDERABLES Fi nal Result [facility] [address] [place] [address] * (ABNORMAL) CMP (COMPREHENSIVE METABOLIC PANEL) (07/24/2024 9:24 AM CDT) [facility] SODIUM 140 136 - 145 mmol/L 07/24/2024 10:29 AM CDT [facility] POTASSIUM 4.1 3.5 - 5.1 mmol/L 07/24/2024 10:29 AM CDT [facility] CHLORIDE 111(H) 98 - 107 mmol/L 07/24/2024 10:29 AM CDT [facility] CO2, VENOUS 22 22 - 30 mmol/L 07/24/2024 10:29 AM CDT [facility] ANION GAP 11.1 <18.0 mmol/L 07/24/2024 10:29 AM CDT [facility] GLUCOSE 86 70 - 99 mg/dL 07/24/2024 10:29 AM CDT [facility] BUN 11 10 - 20 mg/dL 07/24/2024 10:29 AM T [facility] CREATININE, BLOOD 0.89 0.60 - 1.00 mg/dL 07/24/2024 10:29 AM CDT [facility] BUN/CREATININE RATIO 12 12 - 20 ratio 07/24/2024 10:29 AM CDT [facility] TOTAL PROTEIN 6.1(L) 6.3 - 8.2 g/dL 07/24/2024 10:29 AM CDT [facility] ALBUMIN 3.9 3.5 - 5.0 g/dL 07/24/2024 10:29 AM T [facility] A/G RATIO 1.8 1.0 - 2.2 07/24/2024 10:29 AM CDT [facility] CALCIUM 8.8 8.7 - 10.5 mg/dL 07/24/2024 10:29 AM CDT [facility] T BILI 0.2 0.2 - 1.2 mg/dL 07/24/2024 10:29 AM CDT [facility] SGOT (AST) 18 5 - 34 U/L 07/24/2024 10:29 AM CDT [facility] SGPT (ALT) 23 0 - 55 U/L 07/24/2024 10:29 AM CDT [facility] ALKALINE PHOSPHATASE 85 40 - 150 U/L 07/24/2024 10:29 AM CDT [facility] IS THE PATIENT REQUIRED TO BE FASTING? No 07/24/2024 10:29 AM CDT [facility] GFR, ESTIMATED >60 >=60 07/24/2024 10:29 AM CDT [facility] Comment: Creatinine Clearance is the preferred criteria for selecting drug dose adjustments in renally impaired patients. ??The GFR is provided as additional pertinent clinical information. GFR is reported in mL/min/1.73 sq m. Calculation based on the Chronic Kidney Disease Epidemiology Collaboration (CKD- EPI) equation refit without adjustment for race. GFR, EST. >60 >=60 024 10:29 AM CDT [facility] GFR, EST. NONAFRICAN >60 >=60 07/24/2024 10:29 AM CDT [facility] Blood Venipuncture / Unknown 07/24/2024 9:24 AM CDT 07/24/2024 9:24 AM CDT Cruzito Orr MD CHEMISTRY ORDERABLES Fin al Result [facility] [address] [place] [address] documented in this encounter Visit Diagnoses Diagnosis Urothelial cancer (HCC)- Primary Malignant neoplasm of other specified sites of urinary organs documented in this encounter Administered Medications Inactive Administered Medications - up to 3 most recent administrations Medication Order MAR Action Action Date Dose Rate Site Heparin Na (Pork) Lock Flsh PF SOLN 30 Units 30 Units, Intravenous, ONCE, 1 dose, On Mon07/24/24 at 0930Indications:Urothelial cancer (HCC) Given 07/24/2024 9:25 AM CDT 30 Units documented in this encounter Care Teams Truer Pinion And Wheel Relationship Specialty Start Date End Date [place] [address] PCP - General Family Medicine 06/18/24 Levi Carpenter DPM Podiatry 06/07/16 Los Perry MD [address] [place] [phone] Consulting Physician General Surgery 06/20/24 documented as of this encounter
--- OUTSIDE RECORDS SUMMARY | 2024-10-13 03:59 | XMS_ITS | Encounter Summary ---
Author Organization [facility] Address [address] [place] [address] Phone Care Team Providers Care Installation Helper Name Role Phone Levi Carpenter DPM Unavailable [phone] Karson Forbes MD Primary Care Provider [phone] Los Perry MD Unavailable [phone] Encounter Details Date Type Department Care Team (Latest Contact Info) Description 06/26/2024 7:37 AM CDT [facility] [address] [place] [phone] Provider, Not On File [place] [...] st Contact Info) Description 10/16/2024 10:40 AM BLANKET CUTTER HAND Office Visit [facility] Oncology Services [address] [place] [phone] [place] [address] [place] [phone] Discharge Disposition: Discharged to home or Selfcare 10/16/2024 1:20 PM BLANKET CUTTER HAND Clinical Support [facility] Oncology Services [address] [place] [phone] Discharge Disposition: Discharged to home or Selfcare 10/17/2024 1:00 PM BLANKET CUTTER HAND Clinical Support [facility] Oncology Services [address] [place] [phone] Discharge Disposition: Discharged to home or Selfcare 10/23/2024 9:20 AM BLANKET CUTTER HAND Clinical Support [facility] Oncology Services [address] [place] [phone] Discharge Disposition: Discharged to home or Selfcare 10/24/2024 1:00 PM BLANKET CUTTER HAND Clinical Support [facility] Oncology Services [address] [place] [phone] Discharge Disposition: Discharged to home or Selfcare documented as of this encounter Procedures Procedure Name Priority Date/Time Associated Diagnosis Comments CT REFERENCE IMAGES FOR IMAGE IMPORT Routine 06/26/2024 7:37 AM CDT documented in this encounter Results * CT REFERENCE IMAGES FOR IMAGE IMPORT (06/26/2024 7:37 AM CDT) us Not On File Provider IMG CT ORDERABLES Final Res ult documented in this encounter Visit Diagnoses Not on filedocumented in this encounter Care Teams Installation Helper Relationship Specialty Start Date End Date Karson Forbse MD [address] [place] [address] PCP - General Family Medicine 06/18/24 Levi Carpentre DPM Podiatry 06/07/16 Los Perry MD [address] [phone] Consulting Physician General Surgery 06/20/24 documented as of this encounter
--- OUTSIDE RECORDS SUMMARY | 2024-10-13 03:59 | XMS_ITS | Encounter Summary ---
Author Organization [facility] Address [address] [place] [address] Phone Care Team Providers Care Ingot Supervisor Name Role Phone Levi Carpenter Mirlande GARCIA Unavailable [phone] Karson Chavarria MD Primary Care Provider [phone] Los Perry MD Unavailable [phone] Reason for Visit * Auth/Cert (Routine) Specialty Diagnoses / Procedures Referred By Contmanuela t Referred To Contact Diagnoses ENCOUNTER FOR INSERTION OF TUNNELED CENTRAL VENOUS CATHETER WITH PORT Procedures INSERTION PORT -A -CATH Los Perry MD #[address] [address] Phone: tel: fax: Referral ID Status Reason Start Date Expiration Date Visits Re quested Visits Authorized [id number] 1 1 Encounter Details Date Type Department Care Team (Late st Contact Info) Description 07/02/2024 9:40 AM CDT - 07/02/2024 11:10 AM CDT [facility] [address] [place] [address] Los Perry MD [address] [address] INSERTION OF POWER PORT, RIGHT CHEST Surgery Details Date/Time Status Location OR Service Patient Class Case Class Case Type Trauma Case? 07/02/2024 9:40 AM Posted [facility] OR [address] [place] [address] Ambulatory Surgery Elective/ Scheduled Panel 1 Procedure LRB Anes Op Region Wound Class Comments INSERTION OF POWER PORT, RIGHT CHEST N/A Monitored Anesthesia Care Chest Clean Surgeon Surgeon Role Service Panel Los Perry MD Primary General 1 Special Needs Hx of bilateral mastectomy, Copd, Pvd (stents iliac arteries-holding Plavix 5 days) recent left nephrectomy 05/2024 5ft 1in 138lb documented in this encounter Social History Tobacco [...] Sign Reading Time Taken Comments Blood Pressure 136/98 07/02/2024 11:04 AM CDT Pulse 69 07/02/2024 11:04 AM CDT Temperature 35.6 ??C (96.1 ??F) 07/02/2024 1 1:04 AM CDT Respiratory Rate 14 07/02/2024 11:0 4 AM CDT Oxygen Saturation 98% 07/02/2024 11: 04 AM CDT Inhaled Oxygen Concentration - - Weight 62.1 kg (136 lb 12.8 oz) 07/02/2024 7:00 AM CDT Height 154.9 cm (5' 1 ) 07/02/2024 7:00 AM CDT Body Mass Index 25.85 07/02/2024 7:00 AM CDT documented in this encounter Discharge Instructions * Discharge Instructions* Chauncey Monet RN - 07/02/2024 11:07 AM CDT You can take Tylenol for pain.remove transparent dressing in 3 days. The Steri- Strips, little bandages underneath, will fall off on their own. You don't have to see me again unless you are having problems with your wound. GENERAL GUIDELINES FOR MINIMIZING NAUSEA: Do not take pain medication on an empty stomach Eat small portions of foods because they are easier to digest and move through your stomach much faster. Be sure you are staying hydrated. Clear, cool beverages are recommended. Only take what you can tolerate. You might like trying clear soups, flavored gelatin, carbonated beverages, popsicles and ice cubes made of frozen drinks. Avoid the smells of cooking food, especially greasy ones, as the smells make make you nauseated. * Medications* Los Perry MD - 07/02/2024 11:06 AM CDT Ibuprofen Tylenol for pain Start Plavix tomorrow * Discharge Instr - Activity* Los Perry MD - 07/02/2024 11:06 AM CDT No major activity restrictions, you can take a shower tomorrow * Discharge Instr - Diet* Los Perry MD - 07/02/2024 11:06 AM CDT No diet restrictions documented in this encounter Medications at Time [...] times daily. Indications: left ear infection 06/24/2024 4 OLANZapine (ZYPREXA) 5 MG TabletIndication s:Urothelial cancer (HCC) Take 1 Tablet by mouth See Admin Instructions. Take one tablet nightly for 3 nights, starting the day after chemotherapy. 21 day cycle. 12 Tablet 06/28/2024 4 ondansetron (ZOFRAN) 8 MG TabletIndication s:Urothelial cancer (HCC) Take 1 Tablet by mouth every 8 hours as needed for Nausea - 1st line. Take one tablet every 8 hours as needed for nausea 20 Tablet 2 06/28/2024 4 prochlorperazine (COMPAZINE) 10 MG TabletIndication s:Urothelial cancer (HCC) Take 1 Tablet by mouth every 6 hours as needed for Nausea - 2nd line. Take one tablet every 6 hours as needed for nausea. 40 Tablet 2 06/28/2024 4 documented as of this encounter H&P Notes * Los Perry MD - 07/02/2024 8:47 AM CDT We will proceed to the operative room for MediPort insertion right possible left. Risks, benefits and alternatives of the procedure have been discussed patient. Chest x-ray ordered for PACU. No changes in H& P. Patient ready for or. Source Note - Orlando Los iXao MD - 06/24/2024 2:00 PM CDT HISTORY [...] including pre-visit review of separately obtained history, yynr-eg-cevz interaction performing medically appropriate physical exam, patientcounseling/education, interpretation of diagnostic results, care coordination and documentation was30 minutes. Subjective: HPI: Mirtha Cherry is a 59 y.o. female who I was asked to see by KARSON CHAVARRIA MD for insertion MediPort for chemotherapy due [...] 11/25/2016 Dyslipidemia 11/25/2016 PVD (peripheral vascular disease) ([facility]) 11/25/2016 Closed displaced fracture of proximal phalanx of lesser toe of right foot 06/07/2016 Other specified peripheral vascular diseases ([facility]) 06/07/2016 Hallux valgus (acquired), right foot 06/07/2016 [...] bunions 10/09/2015 COPD (chronic obstructive pulmonary disease) ([facility]) GERD (gastroesophageal reflux disease) 10/09/2005 Hemorrhoids 10/09/1997 Hx of fci use of blood thinners Hyperlipidemia 10/09/2005 Menopause 10/09/2011 Migraine Obesity PVD (peripheral vascular disease) ([facility]) Past Surgical History: Procedure Laterality Date BUNIONECTOMY Right 11/25/2016 Procedure: RAMIREZ/JESSA BUNIONECTOMY AND TAILORS BUNIONECTOMY RIGHT FOOT; Surgeon: Levi Carpenter DPM; Location: [facility]; Service: BUNIONECTOMY Left 02/17/2017 Procedure: BUNIONECTOMY Gilberto GERMAIN TALARS; Surgeon: Levi Carpenter DPM; Location: [facility]; Service: CARDIAC CATHERIZATION 10/09/2015 CHOLECYSTECTOMY 1998 GALLBLADDER [...] Resource Needs: Low Risk (05/22/2024) Received from [facility] Overall Financial Resource Strain (CARDIA) Difficulty of Paying Living Expenses: Not hard at all Food Insecurity Needs: No Food Insecurity (05/22/2024) Received from [facility] Hunger Vital Sign Worried About Running Out of Food in the Last Year: Never true Ran Out of Food in the Last Year: Never true Transportation Needs: No Transportation Needs (05/22/2024) Received from [facility] PRAPARE - Transportation Lack of Transportation (Medical): No Lack of Transportation (Non-Medical): No Physical Activity: Not on file Stress: Not on file Social Integration: Moderately Integrated (05/22/2024) Received from [facility] Social Connection and Isolation Panel [NHANES] Frequency of Communication with Friends and Family: More than three times a week Frequency of Social Gatherings with Friends and Family: More than three times a week Attends Bahai Services: More than 4 times per year Active Member of Clubs or Organizations: Yes Attends Club or Organization Meetings: More than 4 times per year Marital Status: Intimate Partner Violence: Not on file Housing Stability: Low Risk (05/22/2024) Received from [facility] Housing Stability Vital Sign Unable [...] 2:08 PM CDT Primary Care Physician: KARSON CHAVARRIA MD documented in this encounter Nursing Notes * Rea Foster RN - 07/02/2024 10:53 AM CDT WHO Safety Checklist Team Debriefing completed. Additional information discussed during debrief, inrelation to patient specific assessment, includes blood loss, glycemic control, pain management, and venous thromboembolism prophylaxis, as needed. All members of the surgical team participated in the debriefing process, and each records information as applicable in their respective areas of documen tation. documented in this encounter OR Notes * OR Surgeon - Los Perry MD - 07/02/2024 11:03 AM CDT Patient Name: Mirtha Cherry Patient Location: OR/OR 07/02/2024, 11:03 AM CDT Surgeon(s): Los Perry MD 1st Scrub: Nila Rubio RN Billet Grinder: Rea Foster, GAGE Preoperative diagnosis: need for venous access for chemotherapy, urothelial cancer Postoperative diagnosis: same Procedure: insertion of mediport, right subclavian vein with fluoroscopy Anesthesia: MAC with local EBL: 2 mL Fluids: See anesthesia report Blood Transfusion: none UOP: Not recorded Specimen: none Tubes and Drains: none Grafts/Implants: Implants Implants PORT INFUSION 8FR 63CM PWR INJ PLASTIC SINGLE FILLED SMART PORT DETACHED POLY CATH VALVED [facility]- - [id number] Inventory Item: PORT INFUSION 8FR 63CM PWR INJ PLASTIC SINGLE FILLED SMART PORT DETACHED POLY CATH VALVED MRI-3T Serial no.: [id number] Model/Cat no.: [id number] Implant name: PORT INFUSION 8FR 63CM PWR INJ PLASTIC SINGLE FILLED SMART PORT DETACHED POLY CATH VALVED MRI-3T - [id number] Laterality: Right Area: Chest Tentering Machine Feeder: [employer] Date of Manufacture: Action: Implanted Number Used: 1 Device Identifier: Device Identifier Type: Implant Type: IMPLANT Lot no.: [id number] Exp. Date: 02/05/2027 Supplier: Size: 8F Condition: Stable Complications: None Indications: Mirtha Cherry is a 59 y.o. year old female who presents with urothelial carcinoma. The patient was recommended to have a mediport inserted for chemotherapy. Alternatives, benefits, and risks (including but not limited to pain, infection, bleeding, mediport infection, injury to surrounding structures including lungs and vessels, anesthetic risks, DVT, cardiopulmonary events, inability to place the port, pneumothorax) were discussed. The patient understood the above and consent was obtained fora mediport insertion. All questions were answered. Findings: Right subclavian vein MediPort inserted with fluoroscopy guidance. Chest x-ray ordered for PACU. Procedure: The patient was seen in the preop holding area. H&P and consents were verified. Any last minutequestions were answered. Preoperative antibiotics were given. The patient was taken back to the operating room, placed in supine position. SCD's were placed to the lower extremities. Anesthesia was administered. Bovie pad was placed on the thigh. Arms were tucked with sheets and foam. Small neck roll was placed under the neck and upper back. The neck and chest were prepped and draped in a sterilesurgical fashion. The patient was put in trendelenburg. Lidocaine 1% was infiltrated below the right clavicle. An 18-gauge needle was used to cannulate the subclavian vein. A guidewire was placed. Under fluoroscopy, the guidewire was guided into the right atrium. The needle was removed. A stab incision was made under the guidewire with an 11 blade. The chest was infiltrated with local to create apocket for the port. A 2 cm incision was made and the pocket made. A hemostat was put on the port and put into the pocket, and it was the appropriate size. The proposed tunnel site was numbed. The catheter was flushed. The flush cut end was placed on the tunneling device and the tunneling device was placed from the stab incision by the guidewire and pulled out from the pocket. 2-0 Prolene suture was then put into the pocket in the chest wall fascia and threaded to the superior port holes, one on the left and one on the right. The sutures were tagged, but not tied. The dilator and sheath were placed over the guidewire, and the guidewire removed. The dilator was removed, and the catheter was threaded into the introducer. The catheter was placed appropriately under fluoroscopy into the SVC above the right atria. No pneumothorax seen on fluoro. The peel-away sheath was removed and the catheter pulled taut. The catheter was cut in the pocket at 19 cm and grabbed with a gauze. The catheter was then securedon the port and locked. The port was aspirated and flushed with heparinized saline. The 2-0 Prolenesutures to the port were tied. The port sat nicely in the pocket. 10 cc marcaine was injected in the port pocket and incision site. Total lidocaine use was 10 cc. Subcutaneous tissue was reapproximated using 3-0 Vicryl interrupted. Skin was reapproximated using 4-0 Monocryl in running subcuticular,continuous fashion. An interrupted 4-0 Monocryl was placed at the stick site. The port was felt andaccessed, aspirated, and flushed with heparinized saline and then heplock. Steri-Strips and Tegaderm applied. Patient tolerated the procedure well. All counts were accurate for laps, sponges, needles, and instruments. By: Los Perry MD; 07/02/2024, 11:05 AM CDT documented in this encounter Miscellaneous Notes * Plan of Care - Chauncey Monet RN - 07/02/2024 12:55 PM CDT Problem: Adult Inpatient Plan of Care Goal: Plan of Care Review Outcome: Outcome Achieved Flowsheets Taken 07/02/2024 1254 by CHAUNCEY Outcome Evaluation: Ready for discharge Taken 07/02/2024 0739 by KIMBERLY Plan of Care Reviewed With: patient family Progress: progress toward functional goals as expected Today's Goal: to discharge home Does the patient need assistance with discharge and/or transitioning to the next level of care?: No, no needs anticipated Goal: Optimal Comfort and Wellbeing Outcome: Outcome Achieved Intervention: Provide Person-Centered Care Flowsheets (Taken 07/02/2024 1251) Trust Relationship/Rapport: care explained questions encouraged questions answered Goal: Readiness for Transition of Care Outcome: Outcome Achieved Intervention: Mutually Develop Transition Plan Flowsheets (Taken 07/02/2024 1254) Equipment Needed After Discharge: none Equipment Currently Used at Home: none Anticipated Changes Related to Illness: none Transportation Concerns: none Readmission Within the Last 30 Days: no previous admission in last 30 days Patient/Family Anticipated Services at Transition: none Patient/Family Anticipates Transition to: home with family Transportation Anticipated: family or friend will provide Concerns to be Addressed: no discharge needs identified Offered/Gave Vendor List: no Problem: Surgery Nonspecified Goal: Anesthesia/Sedation Recovery Outcome: Outcome Achieved Intervention: Optimize Anesthesia Recovery Flowsheets (Taken 07/02/2024 1256) Safety Promotion/Fall Prevention: family at bedside low bed nonskid shoes/slippers when out of bed * PatientPass Patient Instructions - Chauncey Monet RN - 07/02/2024 11:50 AM CDT Images from the original note were not included. Patient Education Table of Contents Implanted Port Insertion, Care After To view videos and all your education online visit, [email or web address] or scan this QR code with your smartphone. Access to this content will in one year. Implanted Port Insertion, Care After The following information offers guidance on how to care for yourself after your procedure. Your health care provider may also give you more specific instructions. If you have problems or questions, contact your health care provider. What can I expect after the procedure? After the procedure, it is common to have: Discomfort at the port insertion site. Bruising on the skin over the port. This should improve over 3?4 days. Follow these instructions at home: Port care After your port is placed, you will get a laborer demolition's information card. The card has informationabout your port. Keep this card with you at all times. Take care of the port as told by your health care provider. Ask your health care provider if you ora family member can get training for taking care of the port at home. ? A home health care nurse will be be available to help care for the port. Make sure to remember what type of port you have. Incision care Follow instructions from your health care provider about how to take care of your port insertion site. Make sure you: ? Wash your hands with soap and water for at least 20 seconds before and after you change your bandage (dressing). If soap and water are not available, use hand transit planning manager. ? Change your dressing as told by your health care provider. ? Leave stitches (sutures), skin glue, or adhesive strips in place. These skin closures may need tostay in place for 2 weeks or longer. If adhesive strip edges start to loosen and curl up, you may trim the loose edges. Do not remove adhesive strips completely unless your health care provider tellsyou to do that. Check your port insertion site every day for signs of infection. Check for: ? Redness, swelling, or pain. ? Fluid or blood. ? Warmth. ? Pus or a bad smell. Activity Return to your normal activities as told by your health care provider. Ask your health care provider what activities are safe for you. You may have to avoid lifting. Ask your health care provider how much you can safely lift. General instructions Take ohaq-qsc-eyitbxx and prescription medicines only as told by your health care provider. Do not take baths, swim, or use a hot tub until your health care provider approves. Ask your healthcare provider if you may take showers. You may only be allowed to take sponge baths. If you were given a sedative during the procedure, it can affect you for several hours. Do not drive or operate machinery until your health care provider says that it is safe. Wear a medical alert bracelet in case of an emergency. This will tell any health care providers that you have a port. Keep all follow-up visits. This is important. Contact a health care provider if: You cannot flush your port with saline as directed, or you cannot draw blood from the port. You have a fever or chills. You have redness, swelling, or pain around your port insertion site. You have fluid or blood coming from your port insertion site. Your port insertion site feels warm to the touch. You have pus or a bad smell coming from the port insertion site. Get help right away if: You have chest pain or shortness of breath. You have bleeding from your port that you cannot control. These symptoms may be an emergency. Get help right away. Call 911. Do not wait to see if the symptoms will go away. Do not drive yourself to the hospital. Summary Take care of the port as told by your health care provider. Keep the laborer demolition's information card with you at all times. Change your dressing as told by your health care provider. Contact a health care provider if you have a fever or chills or if you have redness, swelling, or pain around your port insertion site. Keep all follow-up visits. This information is not intended to replace advice given to you by your health care provider. Make sure you discuss any questions you have with your health care provider. Document Released: 2014-07-16 Document Updated: 2022-03-29 Document Reviewed: 2022-03-29 [employer] Patient Education ? 2023 [employer]IPX. * Plan of Care - Nkechi Murillo RN - 07/02/2024 10:39 AM CDT Patient will be discharged from PACU when criteria has been met. * Plan of Care - Kimberly Urbano RN - 07/02/2024 7:40 AM CDT Problem: Adult Inpatient Plan of Care Goal: Plan of Care Review Outcome: Ongoing (see interventions/notes) Flowsheets (Taken 07/02/2024 3860) Plan of Care Reviewed With: patient family Progress: progress toward functional goals as expected Today's Goal: to discharge home Outcome Evaluation: ready for or Does the patient need assistance with discharge and/or transitioning to the next level of care?: No, no needs anticipated Goal: Optimal Comfort and Wellbeing Outcome: Ongoing (see interventions/notes) Intervention: Provide Person-Centered Care Flowsheets (Taken 07/02/2024738) Trust Relationship/Rapport: care explained choices provided Goal: Readiness for Transition of Care Outcome: Ongoing (see interventions/notes) Intervention: Mutually Develop Transition Plan Flowsheets (Taken 07/02/2024738) Readmission Within the Last 30 Days: no previous admission in last 30 days Problem: Surgery Nonspecified Goal: Anesthesia/Sedation Recovery Outcome: Ongoing (see interventions/notes) Intervention: Optimize Anesthesia Recovery Flowsheets (Taken 07/02/2024738) Safety Promotion/Fall Prevention: low bed nonskid shoes/slippers when out of bed * Cathy - Viviana Loredo RN - 06/25/2024 3:41 PM CDT PLEASE READ THIS IMPORTANT INFORMATION Currently, your procedure is scheduled for MONDAY, JUL 02. You will need to arrive at 730 AM (Should there be a change in your arrival time, you will be notified the weekday prior to your surgery date). You will be receiving: [] LOCAL [x] MONITORED SEDATION [] SPINAL [] GENERAL And/or anesthetic. IN ADVANCE OF YOUR SURGERY DAY COMPLETE Pre-Procedure testing: [] Lab [] EKG [] X-RAY [] URINE (NONE TO COMPLETE) These need to be completed at [facility], Monday - Monday from 700 am - 230 pm. Report to the registration desk. Bring your photo ID and insurance card. ARRANGE HUMAN RESOURCES TRAINEE- For your safety, after having anesthesia, You must have an adult truck driver salesperson (18 yrs or older) arranged in advance of your procedure who can listen to your discharge instructions with you and can stay with you if needed for 24 hrs following your procedure. If you are using public transportation, you must have an adult, you know, ( 18 yrs or older) to accompany you. STOP MEDICATIONS PER YOUR SURGEONS ORDERS PLAVIX / 5 days (STOP TAKING ON 06/27) HOLD Herbal supplements, Multivitamins, Vitamin E, and Fish Oil Omegas for 3 days prior to the procedure. DO NOT: Smoke, vape, chew or drink alcohol for 24 hours prior to the procedure Shave the operative site Bring any valuables or money with you Wear makeup or jewelry. Remove all body piercings FAILURE TO FOLLOW THE ABOVE INSTRUCTIONS IN ADVANCE MAY RESULT IN CANCELLATION OF YOUR PROCEDURE ONTHE DAY OF. ON THE DAY OF SURGERY NOTHING TO EAT OR DRINK FOR 8 HRS PRIOR TO ARRIVAL TIME ON YOUR PROCEDURE DATE! NO GUM, MINTS, WATER, ETC. FAILURE TO FOLLOW THESE INSTRUCTIONS MAY CAUSE YOUR PROCEDURE TO BE CANCELLED FOR YOUR SAFETY. Please take the following medications with a sip of water before coming to the hospital on the day of your surgery: You may take Tylenol the day of Surgery 1. METOPROLOL Please bring your rescue inhaler, if you have one. You may use your inhaler or nasal spray. DO: Bathe or shower the night before or the day of your procedure Your Doctor's office may give you special cleansers with instructions Wear comfortable clothes that are easy to change in and out of. Wear safe non-slip shoes Bring a list of current medications, including and any zakb-jwy-eyspont medications and supplements(such as herbs and essential oils) with dosages and how often you take them. Bring CPAP machine if you have sleep apnea and will be staying overnight. Note children under 16 must be accompanied by a parent or legal guardian in the hospital at all times. Report to Registration Upon Arrival Please enter through the EMERGENCY ENTRANCE DOORS if arriving prior to 8 AM or you are in need of awheelchair. If arriving after 8 AM, enter through the FRONT ENTRANCE DOORS and follow the chopra to your right until you reach the registration. Bring your Photo ID and Insurance card. After you are checked in, Registration will direct you to the elevator which will take you to Day Surgery located on the 4th floor. Please call Pre-Surgical Testing, if you have any questions or concerns regarding Pre- Surgical instructions- Monday thru Monday, 8:30- 4 pm Phone # Viviana [phone]. IF YOU EXPERIENCE SIGNS OR SYMPTOMS OF ILLNESS PRIOR TO YOUR SCHEDULED PROCEDURE OR IF YOU CAN'T KEEP YOUR APPOINTMENT, PLEASE CALL YOUR PROCEDURAL DOCTOR'S OFFICE. DO NOT CALL PRE- SURGICAL TESTING. Thank you for selecting [facility] ([facility]) for your procedure.We know you have a choice for your healthcare and we are pleased to provide you with this service. Our [employer] at [facility] is to: Serve with the Greatest Care and Love . We are not employees of [facility], we are [employer] driven to provide care based on our [employer], Vision and Values. Please do not hesitate to let us know if you have any questions or concerns. May God Bless you and we look forward to serving you. Your Perioperative Team. documented in this encounter Plan of Treatment Upcoming Encounters Date Type Department Care Team (Late st Contact Info) Description 10/16/2024 10:40 AM INSPECTOR WREATH Office Visit [facility] On[facility] Services [address] [place] [phone] [place] [address] [place] [address] Discharge Disposition: Discharged to home or Selfcare 10/16/2024 1:20 PM INSPECTOR WREATH Clinical Support [facility] On[facility] Services [address] [place] [address] Discharge Disposition: Discharged to home or Selfcare 10/17/2024 1:00 PM INSPECTOR WREATH Clinical Support [facility] On[facility] Services [address] [place] [address] Discharge Disposition: Discharged to home or Selfcare 10/23/2024 9:20 AM INSPECTOR WREATH Clinical Support [facility] On[facility] Services [address] [place] [address] Discharge Disposition: Discharged to home or Selfcare 10/24/2024 1:00 PM INSPECTOR WREATH Clinical Support [facility] Services [address] [place] [address] Discharge Disposition: Discharged to home or Selfcare documented as of this encounter Procedures Procedure Name Priority Date/Time Associated Diagnosis Comments XR CHEST SINGLE VIEW PORTABLE Routine 07/02/2024 11:18 AM CDT XR SURGICAL EXAM Routine 07/02/2024 10:5 2 AM CDT INSERTION PORT -A -CATH 07/02/2024 9:53 AM CDT ENCOUNTER FOR INSERTION OF TUNNELED CENTRAL VENOUS CATHETER WITH PORT Special Needs Hx of bilateral mastectomy, Copd, Pvd (stents iliac arteries-holding Plavix 5 days) recent left nephrectomy 05/2024 5ft 1in 138lb documented in this encounter Results * XR CHEST SINGLE VIEW PORTABLE (07/02/2024 11:18 AM CDT) Anatomical Region Laterality Modality Chest N/A Digital Radiogra phy 07/02/2024 11:4 3 AM CDT Impressions 07/02/2024 11:46 AM CDT IMPRESSION: Right chest wall port with the tip projecting over the superior vena cava. No pneumothorax. Narrative 07/02/2024 11:46 AM CDT EXAM DESCRIPTION: XR CHEST SINGLE VIEW PORTABLE REASON FOR STUDY: s/p port placement today. hx breast cancer bilateral masectomy. Urothelial cancer ?? TECHNIQUE: Single ??radiographic view(s) of the chest. COMPARISON: Chest radiographs 11/22/2016 FINDINGS: The heart appears normal in size. ??No airspace consolidation or pleural effusion is seen. ??There is a right chest wall port with the tip projecting over the superior vena cava. ??No pneumothorax. ??There are aortic calcifications. THIS IS AN ELECTRONICALLY VERIFIED FINAL REPORT 07/02/2024 11:43 AM - Electronically signed by ??Travis Hernández M.D. JR: D: ??07/02/2024 11:43 AM T: ??07/02/2024 11:43 AM Report ID: [id number] Reading Location: ??[id number] Procedure Note Travis Hernández MD - 07/02/2024 EXAM DESCRIPTION: XR CHEST SINGLE VIEW PORTABLE REASON FOR STUDY: s/p port placement today. hx breast cancer bilateral masectomy. Urothelial cancer TECHNIQUE: Single radiographic view(s) of the chest. COMPARISON: Chest radiographs 11/22/2016 FINDINGS: The heart appears normal in size. No airspace consolidation or pleural effusion is seen. There is a right chest wall port with the tip projecting over the superior vena cava. No pneumothorax. There are aortic calcifications. THIS IS AN ELECTRONICALLY VERIFIED FINAL REPORT 07/02/2024 11:43 AM - Electronically signed by Travis Hernández M.D. JR: Report ID: [id number] Reading Location: [id number] IMPRESSION: Right chest wall port with the tip projecting over the superior vena cava. No pneumothorax. Los Perry MD Daphney DIAGNOSTIC ORDERA BLES Final Result * XR SURGICAL EXAM (07/02/2024 10:52 AM CDT) Los KUMAR DIAGNOSTIC ORDERA BLES Final Result documented in this encounter Visit Diagnoses Not on filedocumented in this encounter Administered Medications Inactive Administered Medications - up to 3 most recent administrations Medication Order MAR Action Action Date Dose Rate Site bupivacaine (MARCAINE) 0.5 % injection ONCE (in OR), Starting on Mon07/02/24 at 1053, Until Mon07/02/24 at 1103, INTRA-OP Given 07/02/2024 10:53 AM CDT 16 mL HEParin (porcine) injection ONCE (in OR), Starting on Mon07/02/24 at 1053, Until Mon07/02/24 at 1103, INTRA-OP Given 07/02/2024 10:53 AM CDT 5,000 Units Operative Site lactated ringers infusion at 20 mL/hr, Intravenous, CONTINUOUS, Starting on Mon07/02/24 at 0800, Until Mon07/02/24 at 1501, PRE-OP (SURGERY) New Bag 07/02/2024 8:02 AM CDT 20 mL/hr 20 mL/hr ondansetron (ZOFRAN) injection 4 mg 4 mg, Intravenous, EVERY 12 HOURS PRN, Starting on Mon07/02/24 at 0952, Until Mon07/02/24 at 1501, Nausea - 1st line, First Line Antiemetic, PACU (I & II) documented in this encounter Active and Recently Administered Medications Times are shown in CDT. Scheduled Medication Order 06/30/2024 07/01/2024 07/02/2024 ceFAZolin (ANCEF) injection 2 g (COMPLETED) 2 g, Intravenous, ONCE, 1 dose, On Mon07/02/24 at 0800, INTRA-OP, Indications: Perioperative Pharmacoprophylaxis 1020 (Given - Provid er: Rudi Kirk MD) Continuous Medication Order 06/30/2024 07/01/2024 07/02/2024 lactated ringers infusion at 20 mL/hr, Intravenous, CONTINUOUS, Starting on Mon07/02/24 at 0800, Until Mon07/02/24 at 1501, PRE-OP (SURGERY) 0802 (New Bag - Prov ider: Kimbelry Urbano RN)1014 (Continued by Anesthesia - Provider: Rudi Kirk MD)1134 (Stopped - Provider: Nkechi Murillo RN) PRN Medication Order 06/30/2024 07/01/2024 07/02/2024 bupivacaine (MARCAINE) 0.5 % injection (CANCELED) ONCE (in OR), Starting on Mon07/02/24 at 1053, Until Mon07/02/24 at 1103, INTRA-OP 1053 (Given - Provid er: Los Perry MD) HEParin (porcine) injection (CANCELED) ONCE (in OR), Starting on Mon07/02/24 at 1053, Until Mon07/02/24 at 1103, INTRA-OP 1053 (Given - Provid er: Los Perry MD) ondansetron (ZOFRAN) injection 4 mg 4 mg, Intravenous, EVERY 12 HOURS PRN, Starting on Mon07/02/24 at 0952, Until Mon07/02/24 at 1501, Nausea - 1st line, First Line Antiemetic, PACU (I & II) documented in this encounter Care Teams Ingot Supervisor Relationship Specialty Start Date End Date [place] [address] PCP - General Family Medicine 06/18/24 Levi Carpenter DPM Podiatry 06/07/16 Los Perry MD [address] [phone] Consulting Physician General Surgery 06/20/24 documented as of this encounter
--- OUTSIDE RECORDS SUMMARY | 2024-10-13 03:59 | XMS_ITS | Encounter Summary ---
Author Organization [facility] Address [address] [facility] [place] [address] Phone Care Team Providers Care Senior Commercial Loan Officer Name Role Phone Levi Carpenter Mirlande DPM Unavailable [phone] Karson Forbes MD Primary Care Provider [phone] Los Perry MD Unavailable [phone] Reason for Visit * Episode Based Medications (Routine) - Pending Review Specialty Diagnoses / Procedures Referred By Contac t Referred To Contact Diagnoses Urothelial cancer (HCC) Cruzito Orr MD [address] [place] [address] Phone: tel: fax: [facility] [address] [place] [address] Phone: tel: fax: Referral ID Status Reason Start Date Expiration Date V isits Requested Visits Authorized [id number] Pending Review 06/18/2024 30 Encounter Details Date Type Department Care Team (Late st Contact Info) Description 07/11/2024 9:30 AM CDT Clinical Support [facility] [address] [place] [phone] Cruzito Orr MD [address] [place] [address] Urothelial cancer (HCC) (Primary Dx) Discharge Disposition: [...] Sign Reading Time Taken Comments Blood Pressure 133/84 07/11/2024 9:30 AM CDT Pulse 87 07/11/2024 9:30 AM CDT Temperature 36.5 ??C (97.7 ??F) 07/11/2024 9:30 AM CD T Respiratory Rate 16 07/11/2024 9:30 AM CDT Oxygen Saturation 99% 07/11/2024 9:30 AM CDT Inhaled Oxygen Concentration - - Weight 63.5 kg (140 lb) 07/11/2024 9:30 AM CDT Height - - Body Mass Index 26.45 07/09/2024 3:33 PM CDT documented in this encounter Miscellaneous Notes * Interdisciplinary - Sister Gabbie Boss RN - 07/11/2024 9:30 AM CDT Patient arrived and VS obtained. Port accessed per protocol x1 attempt. Flushed easily with good blood return. Medications given as ordered. Patient tolerated well. Home nausea medications reviewed. Plan to hold xyprexa per MD. Port flushed with NS and heparin. Needle removed and site covered with bandaid. Patient left treatment area in stable condition. * Interdisciplinary - Afshin Camilo - 07/11/2024 9:30 AM CDT Program Clinician met with pt while doing rounds. Program Clinician provided contact card and greeting. Pt smiled andappeared in a good mood. She reported that she was on her second week of treatment, but everything was going fine so far. Pt appeared to be upbeat and accepted visit. She answered questions appropriately and was open to engaging with Program Clinician. However, pt did not volunteer a lot of information without being asked. Pt did not talk a lot about her health or journey, other than stating things weregoing fine . Pt preferred tot [employer] bout her work and family. Pt said she was with two children and no grandchildren. She currently works remotely from home for a [employer] company based out of [place] . Pt previously worked in [employer] for many years. 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 Pt said she is able to do some work on her phone, while undergoing treatment. She stated that her family does not like her coming alone, but she finds it more convenient to continue working, so she does nothave to make up the time later. Pt was finishing her session and thanked Program Clinician for the visit and conversation. She was open to future visits and appeared to be at peace. Program Clinician fostered life review, ministry of presence, social support, spiritual comfort, and active listening. documented in this encounter Plan of Treatment Upcoming Encounters Date Type Department Care Team (Late st Contact Info) Description 10/16/2024 10:40 AM DEVELOPER ANALYST Office Visit [facility] Oncology Services [address] [place] [address] Cruzito Orr MD [address] [place] [address] Discharge Disposition: Discharged to home or Selfcare 10/16/2024 1:20 PM DEVELOPER ANALYST Clinical Support [facility] Oncology Services [address] [place] [address] Discharge Disposition: Discharged to home or Selfcare 10/17/2024 1:00 PM DEVELOPER ANALYST Clinical Support [facility] Oncology Services [address] [place] [phone] Discharge Disposition: Discharged to home or Selfcare 10/23/2024 9:20 AM DEVELOPER ANALYST Clinical Support [facility] Oncology Services [address] [place] [phone] Discharge Disposition: Discharged to home or Selfcare 10/24/2024 1:00 PM DEVELOPER ANALYST Clinical Support [facility] Oncology Services [address] [place] [phone] Discharge Disposition: Discharged to home or Selfcare [...] 50 mL/hr, Intravenous, ONCE, 1 dose, On Laura 07/11/24 at 1000, 250mL bagIndications:Urothelial cancer (HCC) New Bag 07/11/2024 9:53 AM CDT 50 mL/hr dexamethasone (DECADRON) injection 8 mg 8 mg, Intravenous, ONCE, 1 dose, On Laura 07/11/24 at 1000Indications:Urothelial cancer (HCC) Given 07/11/2024 9:54 AM CDT 8 mg gemcitabine 1,650 mg in sodium chloride 0.9 % 250 mL chemo infusion 1,650 mg (1,000 mg/m2 ? 1.65 m2 Treatment Plan BSA from Recorded weight), Intravenous, ONCE, 1 dose, On Laura 07/11/24 at 1000, Administer over 30 MinutesIndications:Urothelia l cancer (HCC) New Bag 07/11/2024 10:31 AM CDT 1,650 mg Heparin Na (Pork) Lock Flsh PF SOLN 30 Units 30 Units, Intravenous, PRN, Starting on Laura 07/11/24 at 0942, Until Laura 07/11/24 at 1400, Line Care, Line care per [facility]-Wide Flush Grid.Indications:Urothelial cancer (HCC) Given 07/11/2024 11:26 AM CDT 30 Units documented in this encounter Care Teams Senior Commercial Loan Officer Relationship Specialty Start Date End Date Karson [place] [address] PCP - General Family Medicine 06/18/24 Levi Carpenter DPM Podiatry 06/07/16 Los Perry MD [address] [phone] Consulting Physician General Surgery 06/20/24 documented as of this encounter
--- OUTSIDE RECORDS SUMMARY | 2024-10-13 03:59 | XMS_ITS | Encounter Summary ---
Author Organization [facility] Address [address] [place] [address] Phone Care Team Providers Care Senior Consumer Insights Consultant Name Role Phone Pauline Levi Nogueira DPM Unavailable [phone] Karson Forbes MD Primary Care Provider [phone] Los Perry MD Unavailable [phone] Reason for Visit * Episode Based Medications (Routine) - Pending Review Specialty Diagnoses / Procedures Referred By Contac t Referred To Contact Diagnoses Urothelial cancer (HCC) Cruzito Orr MD [address] [place] [address] Phone: tel: fax: [facility] On[facility] [address] [place] [address] Phone: tel: fax: Referral ID Status Reason Start Date Expiration Date V isits Requested Visits Authorized [id number] Pending Review 06/18/2024 30 Encounter Details Date Type Department Care Team (Late st Contact Info) Description 07/04/2024 10:30 AM CDT Clinical Support [facility] On[facility] Services [address] [place] [phone] Cruzito Orr MD [address] [place] [address] Urothelial cancer (HCC) (Primary Dx) Discharge Disposition: [...] Sign Reading Time Taken Comments Blood Pressure 137/77 07/04/2024 12:13 PM CDT Pulse 70 07/04/2024 12:13 PM CDT Temperature - - Respiratory Rate 20 07/04/2024 12:13 PM CDT Oxygen Saturation 95% 07/04/2024 1:00 PM CDT RA Inhaled Oxygen Concentration - - Weight - - Height - - Body Mass Index - - documented in this encounter Miscellaneous Notes * Interdisciplinary - Sister Gabbie Boss RN - 07/04/2024 10:30 AM CDT Patient arrived and VS obtained. Plan of care, treatment plan, medications, and side effects discussed. Questions encouraged and answered. Consent reviewed and signed. Medications given as ordered. About 10 minutes into emend infusion patient reported tightness in chest and difficulty breathing. Infusion stopped and NS started. Rescue medications documented in DEC. 3L O2 applied. VS monitored. MDpresent. Patient reporting feeling better. said to dc emend but continue with chemo today. O2 titrated down and 02 sat 95% on room air. Chemo given without s/s of complications. Port flushed with NS and heparin. Needle removed and site covered with bandaid. Upcoming appointments scheduled and print out given to patient. Patient left treatment area in stable condition. documented in this encounter Plan of Treatment Upcoming Encounters Date Type Department Care Team (Late st Contact Info) Description 10/16/2024 10:40 AM DOSIMETRIST Office Visit [facility] Oncology Services [address] [place] [phone] [place] [address] [place] [address] Discharge Disposition: Discharged to home or Selfcare 10/16/2024 1:20 PM DOSIMETRIST Clinical Support [facility] Oncology Services [address] [place] [phone] Discharge Disposition: Discharged to home or Selfcare 10/17/2024 1:00 PM DOSIMETRIST Clinical Support [facility] Oncology Services [address] [place] [phone] Discharge Disposition: Discharged to home or Selfcare 10/23/2024 9:20 AM DOSIMETRIST Clinical Support [facility] Oncology Services [address] [place] [phone] Discharge Disposition: Discharged to home or Selfcare 10/24/2024 1:00 PM DOSIMETRIST Clinical Support [facility] Oncology Services [address] [place] [phone] Discharge Disposition: Discharged to home or Selfcare [...] mL/hr, Intravenous, ONCE, 1 dose, On Laura 07/04/24 at 1100Indications:Urothelial cancer (HCC) Restarted 07/04/2024 1:00 PM CDT 50 mL/hr New Bag 07/04/2024 11:33 AM CDT 50 mL/hr CARBOplatin 372.5 mg in sodium chloride 0.9 % 250 mL chemo infusion 372.5 mg (Target AUC = 5), Intravenous, ONCE, 1 dose, On Mon07/04/24 at 1230, Administer over 30 MinutesIndications:Urothelial cancer (HCC) New Bag 07/04/2024 1:57 PM CDT 372.5 mg dexamethasone (DECADRON) injection 12 mg 12 mg, Intravenous, ONCE, 1 dose, On Mon07/04/24 at 1100Indications:Urothelial cancer (HCC) Given 07/04/2024 11:35 AM CDT 12 mg DIPHENHYDRAMINE HCL 50 MG/ML IJ SOLN 1 dose, Starting on Mon07/04/24 at 1154, Until Mon07/04/24 at 1155, Created by cabinet override Given 07/04/2024 11:55 AM CDT 50 mg fosaprepitant (EMEND) 150 mg in sodium chloride 0.9 % 250 mL IVPB 150 mg, Intravenous, ONCE, 1 dose, On Mon07/04/24 at 1100, Administer over 30 MinutesIndications:Urothelial cancer (HCC) New 07/04/2024 11:43 AM CDT 150 mg gemcitabine 1,650 mg in sodium chloride 0.9 % 250 mL chemo infusion 1,650 mg (1,000 mg/m2 ? 1.65 m2 Treatment Plan BSA from Recorded weight), Intravenous, ONCE, 1 dose, On Mon07/04/24 at 1230, Administer over 30 MinutesIndications:Urothelial cancer (HCC) New 07/04/2024 1:06 PM CDT 1,650 mg Heparin Na (Pork) Lock Flsh PF SOLN 30 Units 30 Units, Intravenous, PRN, Starting on Mon07/04/24 at 1030, Until Mon07/04/24 at 1703, Line Care, Line care per [facility]-Wide Flush Grid.Indications:Urothelial cancer (HCC) Given 07/04/2024 2:47 PM CDT 30 Units METHYLPREDNISOLONE NA SUC (PF) 125 MG IJ SOLR 1 dose, Starting on Mon07/04/24 at 1154, Until Mon07/04/24 at 1157, Created by cabinet override Given 07/04/2024 11:57 AM CDT 125 mg OLANZapine (ZYPREXA) tablet 5 mg 5 mg, Oral, ONCE, 1 dose, On Laura 07/04/24 at 1100Indications:Urothelial cancer (HCC) Given 07/04/2024 11:33 AM CDT 5 mg ondansetron (ZOFRAN) injection 8 mg 8 mg, Intravenous, ONCE, 1 dose, On Laura 07/04/24 at 1100Indications:Urothelial cancer (HCC) Given 07/04/2024 11:34 AM CDT 8 mg sodium chloride 0.9 % 500 mL IV bolus Intravenous, ONCE PRN, Starting on Laura 07/04/24 at 1309, Until Laura 07/04/24 at 1703, Administer over 0.5 Hours, For hypersensitivity reaction only., Other, Systolic blood pressure < 90 mm HG or decreased by 20 mm HG from baselineIndications:Urothelial cancer (HCC) New Bag 07/04/2024 11:56 AM CDT 1000 mL/hr documented in this encounter Care Teams Senior Consumer Insights Consultant Relationship Specialty Start Date End Date Karson Forbes MD [address] [facility] [place] [address] PCP - General Family Medicine 06/18/24 Levi Carpenter DPM Podiatry 06/07/16 Los Perry MD #[address] [phone] Consulting Physician General Surgery 06/20/24 documented as of this encounter
--- OUTSIDE RECORDS SUMMARY | 2024-10-13 03:59 | XMS_ITS | Encounter Summary ---
Author Organization [facility] Care Team Providers Care Title Checker Name Role Phone Levi Carpenter DPM Unavailable [phone] Karson Forbes MD Primary Care Provider [phone] Los Perry MD Unavailable Encounter Details Date Type Department Care Team (Latest Contact Info) Description 07/11/2024 Travel Social History Tobacco Use Types Packs/Day [...] st Contact Info) Description 10/16/2024 10:40 AM SPINDLE MAKER Office Visit [facility] Services [address] [place] [phone] Cruzito Orr MD [address] [place] [address] Discharge Disposition: Discharged to home or Selfcare 10/16/2024 1:20 PM SPINDLE MAKER Clinical Support [facility] Oncology Services [address] [place] [phone] Discharge Disposition: Discharged to home or Selfcare 10/17/2024 1:00 PM SPINDLE MAKER Clinical Support [facility] Oncology Services [address] [place] [phone] Discharge Disposition: Discharged to home or Selfcare 10/23/2024 9:20 AM SPINDLE MAKER Clinical Support [facility] Oncology Services [address] [place] [phone] Discharge Disposition: Discharged to home or Selfcare 10/24/2024 1:00 PM SPINDLE MAKER Clinical Support [facility] Oncology Services [address] [place] [phone] Discharge Disposition: Discharged to home or Selfcare documented as of this encounter Visit Diagnoses Not on filedocumented in this encounter Care Teams Title Checker Relationship Specialty Start Date End Date Karson Forbes MD [address] [place] [address] PCP - General Family Medicine 06/18/24 Levi Carpenter DPM Podiatry 06/07/16 Los Perry MD #[address] [phone] Consulting Physician General Surgery 06/20/24 documented as of this encounter
--- OUTSIDE RECORDS SUMMARY | 2024-10-13 03:59 | XMS_ITS | Encounter Summary ---
Author Organization [facility] Care Team Providers Care Make Ready Worker Name Role Phone Levi Carpenter DPM Unavailable [phone] Karson Forbes MD Primary Care Provider [phone] Los Perry MD Unavailable Encounter Details Date Type Department Care Team (Latest Contact Info) Description 07/24/2024 Travel Social History Tobacco Use Types Packs/Day [...] st Contact Info) Description 10/16/2024 10:40 AM MANAGER TELECOM Office Visit [facility] Services [address] [place] [phone] Cruzito Orr MD [address] [place] [address] Discharge Disposition: Discharged to home or Selfcare 10/16/2024 1:20 PM MANAGER TELECOM Clinical Support [facility] Oncology Services [address] [place] [phone] Discharge Disposition: Discharged to home or Selfcare 10/17/2024 1:00 PM MANAGER TELECOM Clinical Support [facility] On[facility] [address] [place] [phone] Discharge Disposition: Discharged to home or Selfcare 10/23/2024 9:20 AM MANAGER TELECOM Clinical Support [facility] [address] [place] [phone] Discharge Disposition: Discharged to home or Selfcare 10/24/2024 1:00 PM MANAGER TELECOM Clinical Support [facility] On[facility] Services [address] [place] [phone] Discharge Disposition: Discharged to home or Selfcare documented as of this encounter Visit Diagnoses Not on filedocumented in this encounter Care Teams Make Ready Worker Relationship Specialty Start Date End Date Karson Forbes MD [address] [place] [address] PCP - General Family Medicine 06/18/24 Levi Carpenter DPM Podiatry 06/07/16 Los Perry MD #[address] [phone] Consulting Physician General Surgery 06/20/24 documented as of this encounter
--- OUTSIDE RECORDS SUMMARY | 2024-10-13 03:59 | XMS_ITS | Encounter Summary ---
Author Organization [facility] Address [address] [place] [address] Phone Care Team Providers Care Molding Engineer Name Role Phone Pauline, eLvi Nogueira DPM Unavailable [phone] Karson Chavarria MD Primary Care Provider [phone] Los Perry MD Unavailable [phone] Reason for Visit * Auth/Cert (Routine) Specialty Diagnoses / Procedures Referred By Contmanuela t Referred To Contact Diagnoses ENCOUNTER FOR INSERTION OF TUNNELED CENTRAL VENOUS CATHETER WITH PORT Procedures INSERTION PORT -A -CATH Los Perry MD #[address] [address] Phone: tel: fax: Referral ID Status Reason Start Date Expiration Date Visits Re quested Visits Authorized [id number] 1 1 Encounter Details Date Type Department Care Team (Late st Contact Info) Description 07/02/2024 7:36 AM CDT - 07/02/2024 12:30 PM CDT Hospital Encounter [facility] Preop/Pacu II [address] [place] [address] Los Perry MD #[address] [address] Discharge Disposition: Discharged to home or Selfcare [...] Sign Reading Time Taken Comments Blood Pressure 134/60 07/02/2024 11:55 AM CDT Pulse 52 07/02/2024 11:55 AM CDT Temperature 36.5 ??C (97.7 ??F) 07/02/2024 1 1:55 AM CDT Respiratory Rate 18 07/02/2024 11:5 5 AM CDT Oxygen Saturation 96% 07/02/2024 11: 55 AM CDT Inhaled Oxygen Concentration - - [...] Patient ready for or. Source Note - Los Perry MD - 06/24/2024 2:00 PM [...] including pre-visit review of separately obtained history, qjcm-kv-ctzs interaction performing medically appropriate physical exam, patientcounseling/education, [...] 11/25/2016 Dyslipidemia 11/25/2016 PVD (peripheral vascular disease) ([facility]) 11/25/2016 Closed displaced fracture of proximal phalanx of lesser toe of right foot 06/07/2016 Other specified peripheral vascular diseases (HCC) 06/07/2016 Hallux valgus (acquired), right foot 06/07/2016 [...] bunions 10/09/2015 COPD (chronic obstructive pulmonary disease) ([facility]) GERD (gastroesophageal reflux disease) 10/09/2005 Hemorrhoids 10/09/1997 Hx of usp use of blood thinners Hyperlipidemia 10/09/2005 Menopause 10/09/2011 Migraine Obesity PVD (peripheral vascular disease) ([facility]) Past Surgical History: Procedure Laterality Date BUNIONECTOMY Right 11/25/2016 Procedure: ASHLEY/JESSA BUNIONECTOMY AND TAILORS BUNIONECTOMY RIGHT FOOT; Surgeon: Levi Carpenter DPM; Location: [facility]; Service: BUNIONECTOMY Left 02/17/2017 Procedure: BUNIONECTOMY Ashley GERMAIN TALARS; Surgeon: Levi Carpenter DPM; Location: [facility]; Service: CARDIAC CATHERIZATION 10/09/2015 CHOLECYSTECTOMY 1998 GALLBLADDER SURGERY 07/09/1998 laparoscopic MASTECTOMY BILATERAL Bilateral 05/28/2018 OTHER SURGICAL HISTORY 01/2008, 07/2005, 2016 circulatory stent implants(4) [facility] OTHER SURGICAL HISTORY 10/09/2004 polyps removed from [...] Resource Needs: Low Risk (05/22/2024) Received from [facility] Overall Financial Resource Strain (CARDIA) Difficulty of Paying Living Expenses: Not hard at all Food Insecurity Needs: No Food Insecurity (05/22/2024) Received from [facility] Hunger Vital Sign Worried About Running Out of Food in the Last Year: Never true Ran Out of Food in the Last Year: Never true Transportation Needs: No Transportation Needs (05/22/2024) Received from [facility] PRAPARE - Transportation Lack of Transportation (Medical): No Lack of Transportation (Non-Medical): No Physical Activity: Not on file Stress: Not on file Social Integration: Moderately Integrated (05/22/2024) Received from [facility] Social Connection and Isolation Panel [NHANES] Frequency of Communication with Friends and Family: More than three times a week Frequency of Social Gatherings with Friends and Family: More than three times a week Attends Religion Services: More than 4 times per year Active Member of Clubs or Organizations: Yes Attends Club or Organization Meetings: More than 4 times per year Marital Status: Intimate Partner Violence: Not on file Housing Stability: Low Risk (05/22/2024) Received from [facility] Housing Stability Vital Sign Unable to [...] Perry MD 1st Scrub: Nila Rubio RN Photography Coordinator: Rea Fosetr RN Preoperative diagnosis: need for venous access for [...] PORT DETACHED POLY CATH VALVED MRI-3T - [id number] Inventory Item: PORT INFUSION 8FR 63CM PWR INJ PLASTIC SINGLE FILLED SMART PORT DETACHED POLY CATH VALVED MRI-3T Serial no.: [id number] Model/Cat no.: [id number] Implant name: PORT INFUSION 8FR 63CM PWR INJ PLASTIC SINGLE FILLED SMART PORT DETACHED POLY CATH VALVED MRI-3T - [id number] Laterality: Right Area: 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 Date: 02/05/2027 Supplier: Size: 8F Condition: Stable Complications: None Indications: Mirtha H Dilip is a 59 y.o. year old female [...] Intervention: Provide Person-Centered Care Flowsheets (Taken 07/02/2024 1254) Trust Relationship/Rapport: care explained questions encouraged questions [...] Intervention: Optimize Anesthesia Recovery Flowsheets (Taken 07/02/2024 1254) Safety Promotion/Fall Prevention: family at bedside low bed nonskid shoes/slippers when out of bed * PatientPass Patient Instructions - Chauncey Monet RN - 07/02/2024 11:50 AM CDT Images from the original note were not included. Patient Education Table of Contents Implanted Port Insertion, Care After To view videos and all your education online visit, [email or web address] or scan this QR code with your [...] port is placed, you will get a glove parts cutter's information card. The card has informationabout your [...] and water are not available, use hand skimmer scoop operator. ? Change your dressing as told by [...] you can safely lift. General instructions Take imty-tkp-edyoatq and prescription medicines only as told by [...] by your health care provider. Keep the glove parts cutter's information card with you at all times. [...] 2014-07-16 Document Updated: 2022-03-29 Document Reviewed: 2022-03-29 ElseOpenPlacement Patient Education ? 2023 [email or web address] * Plan of Care - Nkechi Murillo RN - 07/02/2024 10:39 AM CDT Patient will be discharged from PACU when criteria has been met. * Plan of Care - Kimberly Urbano RN - 07/02/2024 7:40 AM CDT Problem: Adult Inpatient Plan of Care Goal: Plan of Care Review Outcome: Ongoing (see interventions/notes) Flowsheets (Taken 07/02/2024738) Plan of Care Reviewed With: patient family [...] interventions/notes) Intervention: Optimize Anesthesia Recovery Flowsheets (Taken 07/02/2024 7624) Safety Promotion/Fall Prevention: low bed nonskid shoes/slippers when out of bed * Interdisciplinary - Viviana Loredo RN - 06/25/2024 3:41 PM CDT PLEASE READ THIS IMPORTANT INFORMATION Currently, your procedure is scheduled for JUL 02. You will need to arrive [...] COMPLETE) These need to be completed at [facility], Monday - Monday from 700 am - 230 pm. Report to the registration desk. Bring your photo ID and insurance card. ARRANGE NOVELTY CANDY MAKER- For your safety, after having anesthesia, You must have an adult security patrol driver (18 yrs or older) arranged in advance [...] list of current medications, including and any fgnk-rhq-pnbczbx medications and supplements(such as herbs and essential [...] will take you to Day Surgery located onthe 4th floor. Please call Pre-Surgical Testing, if you have any questions or concerns regarding Pre- Surgical instructions- Monday thru Monday, 8:30- 4 pm Phone # Viviana [phone]. IF YOU EXPERIENCE SIGNS OR SYMPTOMS OF ILLNESS PRIOR TO YOUR SCHEDULED PROCEDURE OR IF YOU CAN'T KEEP YOUR APPOINTMENT, PLEASE CALL YOUR PROCEDURAL DOCTOR'S OFFICE. DO NOT CALL PRE- SURGICAL TESTING. Thank you for selecting [facility] ([facility]) for your procedure.We know you have a choice for your healthcare and we are pleased to provide you with this service. Our [place] [facility] is to: Serve with the Greatest Care and Love . We are not employees of [facility], we are [employer] driven to provide care based on our [place], Vision and Values. Please do not hesitate to let us know if you have any questions or concerns. May God Bless you and we look forward to serving you. Your Perioperative Team. documented in this encounter Plan of Treatment Upcoming Encounters Date Type Department Care Team (Late st Contact Info) Description 10/16/2024 10:40 AM DRAFTER MARINE Office Visit [facility] [address] [place] [phone] [place] [address] [place] [phone] Discharge Disposition: Discharged to home or Selfcare 10/16/2024 1:20 PM DRAFTER MARINE Clinical Support [facility] [address] [place] [phone] Discharge Disposition: Discharged to home or Selfcare 10/17/2024 1:00 PM DRAFTER MARINE Clinical Support [facility] [address] [place] [phone] Discharge Disposition: Discharged to home or Selfcare 10/23/2024 9:20 AM DRAFTER MARINE Clinical Support [facility] [address] [place] [phone] Discharge Disposition: Discharged to home or Selfcare 10/24/2024 1:00 PM DRAFTER MARINE Clinical Support [facility] [address] [place] [phone] Discharge Disposition: Discharged to home or Selfcare [...] AM - Electronically signed by ??Travis Hernández M.D., JR: D: ??07/02/2024 11:43 AM T: ??07/02/2024 11:43 AM Report ID: [id number] Reading Location: ??[id number] Procedure Note Travis Hernández MD - 07/02/2024 [...] by Travis Hernández M.D. JR: Report ID: [id number] Reading Location: [id number] IMPRESSION: Right chest wall port with the tip projecting over the superior vena cava. No pneumothorax. Los Perry MD IM DIAGNOSTIC ORDERA BLES Final Result * XR SURGICAL EXAM (07/02/2024 10:52 AM CDT) Los Perry MD [facility] Final Result documented in this encounter Visit Diagnoses Not on filedocumented in this encounter Administered Medications Inactive Administered Medications - up to 3 most recent administrations Medication Order MAR Action Action Date Dose Rate Site lactated ringers infusion at 20 mL/hr, [...] (SURGERY) 0802 (New Bag - Prov ider: Kimberly Urbano RN)1014 (Continued by Anesthesia - Provider: [...] II) documented in this encounter Care Teams Molding Engineer Relationship Specialty Start Date End Date Karson Chavarria MD [address] [place] [address] PCP - General Family Medicine 06/18/24 Levi Carpenter DPM Podiatry 06/07/16 Los Perry MD #[address] [address] Consulting Physician General Surgery 06/20/24 documented as of this encounter
--- OUTSIDE RECORDS SUMMARY | 2024-10-13 03:59 | XMS_ITS | Encounter Summary ---
Author Organization [facility] Address [address] [facility] [place] [address] Phone Care Team Providers Care Channel Installer Name Role Phone Levi Carpenter DPM Unavailable [phone] Karson Forbes MD Primary Care Provider [phone] Reason for Referral * Consult, Test & Initiate Treatment (Less Than 1 Week) - Closed Specialty Diagnoses / Procedures Referred By Contmanuela t Referred To Contact General Surgery Diagnoses Urothelial cancer (HCC) Cruzito Orr MD [address] [place] [address] Phone: tel: fax: [facility] - General Surgery [facility] [address] [id number] Phone: tel: fax: Referral ID Status Reason Start Date Expiration Date Visits Re quested Visits Authorized [id number] Closed 06/18/2024 1 1 Scheduling Instructions Mirtha is being referred for port-a-cath placement for treatment of high grade urothelial carcinoma. See below for Mirtha's current medications, allergies and problem list. Please contact patient for scheduling questions or concerns. CURRENT MEDS: Current Outpatient Medications: aspirin EC (ECOTRIN LOW STRENGTH) 81 MG Tablet Delayed Response, Take 81 mg by mouth daily. (Patient not taking: Reported on 06/18/2024), Disp: , Rfl: atorvastatin (LIPITOR) 80 MG Tablet, Take 40 mg by mouth daily., Disp: , Rfl: clopidogrel (PLAVIX) 75 MG Tablet, Take 75 mg by mouth daily., Disp: , Rfl: Coenzyme Q10 400 MG Capsule, Take by mouth daily., Disp: , Rfl: loratadine (CLARITIN) 10 MG Tablet, Take 10 mg by mouth daily as needed. (Patient not taking: Reported on 06/18/2024), Disp: , Rfl: methylPREDNISolone (MEDROL DOSPACK) 4 MG Tablet Therapy Pack, TAKE DIRECTED (Patient not taking: Reported on 06/18/2024), Disp: 1 Dose Pack, Rfl: 0 metoprolol tartrate (LOPRESSOR) 50 MG Tablet, Take 50 mg by mouth daily., Disp: , Rfl: Multiple Vitamin (MULTIVITAMIN PO), Take by mouth., Disp: , Rfl: Probiotic Product (PROBIOTIC DAILY PO), Take by mouth., Disp: , Rfl: SUMAtriptan (IMITREX) 50 MG Tablet, Take 1 Tab by mouth as needed., Disp: , Rfl: 11 No current facility-administered medications for this visit. ALLERGIES: -- Adhesive Tape -- Itching, Unknown and Other (see Comments) -- blisters -- Betadine [Povidone Iodine] -- Itching -- Codeine -- Nausea and Unknown PROBLEM LIST: Patient Active Problem List: Closed displaced fracture of proximal phalanx of lesser toe of right foot Other specified peripheral vascular diseases (HCC) Hallux valgus (acquired), right foot Hallux valgus (acquired), left foot Tailor's bunion of left foot GERD (gastroesophageal reflux disease) Dyslipidemia PVD (peripheral vascular disease) (HCC) Left leg swelling Neuritis of left foot Swelling of foot joint, left Pain of left foot Urothelial cancer (HCC) Reason for Visit * Reason Comments New Patient Urothelial Ca * Consult, Test & Initiate Treatment (Routine) - Closed Specialty Diagnoses / Procedures Referred By Contac t Referred To Contact Oncology Diagnoses Urothelial cancer (HCC) Procedures ONCOLOGY CONSULT Daniel Last MD [address] [place] [address] Phone: tel: fax: Cruzito Orr MD [address] [place] [address] Phone: tel: fax: Referral ID Status Reason Start Date Expiration Date Visits Re quested Visits Authorized [id number] Closed 1 1 Encounter Details Date Type Department Care Team (Late st Contact Info) Description 06/18/2024 10:20 AM CDT Office Visit [facility] On[facility] Services [address] [place] [phone] Cruzito Orr MD [address] [place] [address] Urothelial cancer (HCC) (Primary Dx); Gastroesophageal reflux disease without esophagitis; PVD (peripheral vascular disease) (HCC); Stage 3 chronic kidney disease, unspecified whether stage 3a or 3b CKD (HCC); Conductive hearing loss, bilateral Discharge Disposition: Discharged to home or Selfcare [...] Sign Reading Time Taken Comments Blood Pressure 118/75 06/18/2024 10:26 AM CDT Pulse 76 06/18/2024 10:26 AM CDT Temperature 36.7 ??C (98 ??F) 06/18/2024 10: 26 AM CDT Respiratory Rate 20 06/18/2024 10:2 6 AM CDT Oxygen Saturation 100% 06/18/2024 10: 26 AM CDT Inhaled Oxygen Concentration - - Weight 62.9 kg (138 lb 11.2 oz) 024 10:26 AM CDT Height 154.9 cm (5' 1 ) 06/18/2024 10:2 6 AM CDT Body Mass Index 26.21 06/18/2024 10:26 AM CDT documented in this encounter Progress Notes * Barbara Reed - 06/18/2024 10:20 AM CDT OUTPATIENT HEMATOLOGY-ONCOLOGY CONSULT/H&P DATE OF CONSULT: 06/18/2024 REFERRING PHYSICIAN: Daniel Last* REASON FOR CONSULTATION: High-grade papillary urothelial carcinoma Present Illness Mirtha Cherry is a very pleasant 59 y.o. female seen today for recently diagnosed invasive high-grade papillary urothelial carcinoma. Patient requests to be called Johanna. Johanna is here today ambulating without support accompanied by sister Maggie for support. She reports this started roughly2-3 years ago when she developed gross hematuria in September 2021. Patient reports undergoing workup with Dr. Avitia with negative clinical findings. Johanna reports no hematuria occurring for roughly 12 months before experiencing another episode of hematuria in September 2022. Patient denies seeking medical evaluation after this episode due to lack of findings during previous workup. Johanna denies hematuria occurring in 2022. She reports developing gross hematuria occurring persistently in February 2024 prompting her to contact urologist for repeat evaluation. Johanna completed CT 03/11/24 with 2.7 cm left renal pelvis mass without adjacent lymphadenopathy. She reports attempt to obtain CT guided biopsy were futile. Patient underwent OR Uteroscope on 04/18/[address] Houston at [facility] which revealed papillary lesions in the mid upper and lower pole of the left renal pelvis. On May 17, 2024 sheunderwent an R0 left nephro ureterectomy revealing a 2.3 cm high-grade papillary urothelial carcinoma arising in the renal pelvis and invading the parenchyma, pathologic T3 N0=Stage III with lymphovascular invasion and associated CIS. She returned to [facility] on 05/21/24 with complaints of SOB after discharge from hospital on 05/20/24. Patient was admitted for pneumonia with discharge home on 05/23/24. Johanna denies any current pain. She reports only using narcotic pain medication 2 days postopera tively. Patient reports acid reflux occurring secondary to pain medications. Johanna denies daily occurrence of acid reflux. Johanna reports plans to establish with Dr. Karson Forbes for primary care management. She reports currently treated for high cholesterol, emphysema with BURLESON, PVD with history of stent placement, and tobacco abuse. Johanna reports breathing most difficult when climbing stairs or going up hill due to compression of lower extremity veins. Patient reports trial of various inhalers without improvement in breathing appreciated. She denies any abnormal bowels or new constitutional symptoms. Johanna reports last stenting for PVD occurring in 2020. Patient is currently followed by Dr. Loredo with Plavix 75 mg daily. 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 Waters at [facility] in 2017. Patient reports electing bilateral mastectomy vs surveillance protocol recommended in patients who elect lumpectomy. Johanna reports diagnosis of trigeminal neuralgia over 10 years ago that is currently managed with chiropractic adjustment. PAST MEDICAL AND SURGICAL HISTORY: Past Medical History Positives Diagnosis Date Bilateral bunions 2015 GERD (gastroesophageal reflux disease) 2006 Hemorrhoids 1998 Hyperlipidemia 2006 Menopause 2011 Migraine Obesity PVD (peripheral vascular disease) (HCC) Past Surgical History: Procedure Laterality Date BUNIONECTOMY Right 11/25/2016 Procedure: ASHLEY/JESSA BUNIONECTOMY AND TAILORS BUNIONECTOMY RIGHT FOOT; Surgeon: Levi Carpenter DPM; Location: [facility]; Service: BUNIONECTOMY Left 02/17/2017 Procedure: BUNIONECTOMY Ashley GERMAIN TALARS; Surgeon: Levi Carpenter DPM; Location: [facility]; Service: CARDIAC CATHERIZATION 2016 GALLBLADDER SURGERY 07/1998 laparoscopic OTHER SURGICAL HISTORY 01/2008, 07/2005, 2016 circulatory stent implants(4) [facility] OTHER SURGICAL HISTORY 2004 polyps removed from vocal cords SOCIAL AND FAMILY HISTORY: Reviewed in chart Johanna reports current cigarette tobacco use at less than 1 pack per day. She reports 44 year tobacco use history at roughly 1 pack per day. Johanna denies heavy alcohol consumption. Denies current or history of illicit drug use. Johanna reports paternal history of esophageal diagnosed in 50s. They recall paternal siblings diagnosed with NH lymphoma, kidney cancer, and metastatic disease to brain. Johanna reports maternal aunt diagnosed with ovarian cancer at age 55. She denies maternal history of cancer. Patient denies any other family history of hematological or oncological disorders. CURRENT MEDS: Current Outpatient Medications: aspirin EC (ECOTRIN LOW STRENGTH) 81 MG Tablet Delayed Response atorvastatin (LIPITOR) 80 MG Tablet clopidogrel (PLAVIX) 75 MG Tablet loratadine (CLARITIN) 10 MG Tablet methylPREDNISolone (MEDROL DOSPACK) 4 MG Tablet Therapy Pack omeprazole (PRILOSEC) 40 MG CAPSULE DELAYED RELEASE raNITIdine (ZANTAC) 150 MG Tablet SUMAtriptan (IMITREX) 50 MG Tablet Occupation majority of life: Johanna reports currently working at [employer]. Genetics Risk Assessment Discussed/N/A Allergies as of 06/18/2024 - Reviewed 07/10/2017 Allergen Reaction Noted Adhesive tape Itching, Unknown, and Other (see Comments) 06/07/2016 Betadine [povidone iodine] Itching 02/17/2017 Codeine Nausea and Unknown 06/07/2016 REVIEW OF SYSTEMS Review of Systems Constitutional: Negative for malaise/fatigue and weight loss. Respiratory: Positive for shortness of breath. Cardiovascular: Negative for leg swelling. Gastrointestinal: Positive for heartburn (occasional, episodic, triggered by narcotic pain medication). Negative for constipation, diarrhea and nausea. Genitourinary: Negative for dysuria, hematuria and urgency. PHYSICAL EXAM Physical Exam PAIN ASSESSMENT: no verbal pain complaints today. DATA: 06/17/24 LABS OSH: CBC WBC 9.0 HGB 14.0 PLT 240 CMP K+ 5.1 Cr 1.11 Ca+ 10.0 T.bili 0.3 Alk Phos 103 ALT 25 AST 18 Lab Results Component Value Date WBC 10.90 [...] 02/10/2017 CREATININE 0.78 02/10/2017 CALCIUM 9.2 02/10/2017 05/17/24 SURGICAL PATHOLOGY REPORT OSH: Kidney and ureter, left, hand assisted laparoscopic nephroureterectomy: - Invasive high-grade papillary urothelial carcinoma, 2.3 cm, arising in the renal pelvis and extending into the renal parenchyma - Surgical margins are negative for carcinoma - No evidence of metastatic carcinoma in one lymph node - See cancer case summary 12/26/17 SURGICAL PATHOLOGY REPORT: FINAL DIAGNOSIS Breast, right, total mastectomy: - Lobular carcinoma in situ with a pleomorphic lobular carcinoma in situ component (see description). - Radial scars, multiple small. - Fibrocystic changes. - Microcalcifications. - Biopsy site reaction, two foci of (history of previous core biopsies, [id number]). Lymph nodes, right axillary sentinel, excision: - [...] Invasive high-grade urothelial carcinoma arising in the right renal pelvis and extending into the renal parenchyma, stage III, s/p right nephrectomy Current smoker PVD with history of stent placement Plan: 2. Discussed adjuvant systemic chemotherapy for invasive urothelial carcinoma consisting of CarboAUC5 CD1 with Gemcitabine CD1/8 every 21 days for a total of 4 planned cycles if patient tolerates. Reviewed other treatment option with Cisplantin not recommended due to potential for renal injury and worsening hearing loss. Touched upon alternatives including adjuvant immunotherapy with Nivolumab orsurveillance alone. Patient will have repeat CT C/A/P every 3-6 months to monitor for evidence of disease. She will have cystoscopy completed every 3 months for direct visualization of bladder for lesions. 3. Discussed with patient common side effects of systemic chemotherapy agents including but not limited to nausea, hair loss, diarrhea, increased risk of infection, fatigue, risk of allergic reaction/anaphylaxis etc. Discussed chemotherapy drugs, duration, number of cycles, side effects of the chemotherapy regimen, including Hematological, Cardiovascular, Neurological, Gastrointestinal, Dermatological, Musculoskeletal, Metabolism and nutritional side effects. Risk of infection, possible hospital admission, need for transfusion of RBC or platelets, bleeding risk, second malignancies, extravasat ion injury were also discussed. Johanna requests time to think about treatment options and coordinatingher work schedule. Will send pre/post treatment medications when treatment scheduled. 4. Discussed possibility of having port-a-cath vs PICC line placed to ease venous access for treatment. Reviewed benefits of each device with patient and sister Maggie. After discussion patient is agreeable to referral to [facility] for port placement. They will contact patient to schedule. 5. Patient will need surveillance cystoscopy to be completed every 3 months for direct visualization of bladder to monitor for evidence of disease. At this time she will continue to follow with Dr. Houston at [facility]. 6. Discussed discontinuing cigarette tobacco use to improve breathing and improve treatment efficacy. Patient was offered smoking cessation aides and information regarding [facility] facilitated smoking cessation classes. Patient requests time to think about treatment option and whether or not she even wants to start systemic chemotherapy. She was asked if there were any lingering questions or concerns regarding starting recommended treatment with Carbo/Ida. Voiced concerns regarding nerve damage secondary to treatment given history of trigeminal neuralgia causing major discomfort. Patient denied additional questions or concerns. She denies additional information needed to help with decision. The patient was given an opportunity to ask questions, and all questions answered to patient's satisfaction. Patient verbalizes understanding of the plan as outlined above. The documentation for this visit was completed by Barbara Reed acting as a scribe for Cruzito Muro MD. 06/18/2024, 9:14 AM CDT * Cruzito Orr MD - 06/18/2024 10:20 AM CDT OUTPATIENT HEMATOLOGY-ONCOLOGY CONSULT/H&P DATE OF CONSULT: 06/18/2024 REFERRING PHYSICIAN: Daniel Last* REASON FOR CONSULTATION: High-grade papillary urothelial carcinoma of the left renal pelvis Present Illness Mirtha Cherry is a very pleasant 59 y.o. female seen today for recently diagnosed invasive high-grade papillary urothelial carcinoma. Patient requests to be called Johanna. Johanna is here today ambulating without support accompanied by sister Maggie for support. She reports this started roughly2-3 years ago when she developed gross hematuria in September 2021. Patient reports undergoing workup with Dr. Avitia with negative clinical findings. Johanna reports no hematuria occurring for roughly 12 months before experiencing another episode of hematuria in September 2022. Patient denies seeking medical evaluation after this episode due to lack of findings during previous workup. Johanna denies hematuria occurring in 2022. She reports developing gross hematuria occurring persistently in February 2024 prompting her to contact urologist for repeat evaluation. Johanna completed CT 03/11/24 with 2.7 cm left renal pelvis mass without adjacent lymphadenopathy. She reports attempt to obtain CT guided biopsy were futile. Patient underwent OR Uteroscope on 04/18/[address] Houston at [facility] which revealed papillary lesions in the mid upper and lower pole of the left renal pelvis. On May 17, 2024 sheunderwent an R0 left nephro ureterectomy revealing a 2.3 cm high-grade papillary urothelial carcinoma arising in the renal pelvis and invading the parenchyma, pathologic T3 N0=Stage III with lymphovascular invasion and associated CIS. She returned to [facility] on 05/21/24 with complaints of SOB after discharge from hospital on 05/20/24. Patient was admitted for pneumonia with discharge home on 05/23/24. Johanna denies any current pain. She reports only using narcotic pain medication 2 days postopera tively. Patient reports acid reflux occurring secondary to pain medications. Johanna denies daily occurrence of acid reflux. Johanna reports plans to establish with Dr. Karson Forbes for primary care management. She reports currently treated for high cholesterol, emphysema with BURLESON, PVD with history of stent placement, and tobacco abuse. Johanna reports breathing most difficult when climbing stairs or going up hill due to compression of lower extremity veins. Patient reports trial of various inhalers without improvement in breathing appreciated. She denies any abnormal bowels or new constitutional symptoms. Johanna reports last stenting for PVD occurring in 2020. Patient is currently followed by Dr. Loredo with Plavix 75 mg daily. 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 Waters at [facility] in 2017. Patient reports electing bilateral mastectomy vs surveillance protocol recommended in patients who elect lumpectomy. Johanna reports diagnosis of trigeminal neuralgia over 10 years ago that is currently managed with chiropractic adjustment. PAST MEDICAL AND SURGICAL HISTORY: Past Medical History Positives Diagnosis Date Bilateral bunions 10/09/2015 COPD (chronic obstructive pulmonary disease) (HCC) GERD (gastroesophageal reflux disease) 10/09/2005 Hemorrhoids 10/09/1997 Hx of roasterman use of blood thinners Hyperlipidemia 10/09/2005 Menopause 10/09/2011 Migraine Obesity PVD (peripheral vascular disease) ([facility]) Past Surgical History: Procedure Laterality Date BUNIONECTOMY Right 11/25/2016 Procedure: ASHLEY/JESSA BUNIONECTOMY AND TAILORS BUNIONECTOMY RIGHT FOOT; Surgeon: Levi Carpenter DPM; Location: [facility]; Service: BUNIONECTOMY Left 02/17/2017 Procedure: BUNIONECTOMY Ashley GERMAIN TALARS; Surgeon: Levi Carpenter DPM; Location: [facility]; Service: CARDIAC CATHERIZATION 10/09/2015 CHOLECYSTECTOMY 1998 GALLBLADDER SURGERY 07/09/1998 laparoscopic MASTECTOMY BILATERAL Bilateral 05/28/2018 OTHER SURGICAL HISTORY 01/2008, 07/2005, 2016 circulatory stent implants(4) [facility] OTHER SURGICAL HISTORY 10/09/2004 polyps removed from vocal cords SOCIAL AND FAMILY HISTORY: Reviewed in chart Johanna reports current cigarette tobacco use at less than 1 pack per day. She reports 44 year tobacco use history at roughly 1 pack per day. Johanna denies heavy alcohol consumption. Denies current or history of illicit drug use. Johanna reports paternal history of esophageal diagnosed in 50s. They recall paternal siblings diagnosed with NH lymphoma, kidney cancer, and metastatic disease to brain. Johanna reports maternal aunt diagnosed with ovarian cancer at age 55. She denies maternal history of cancer. Patient denies any other family history of hematological or oncological disorders. 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 Genetics Risk Assessment Discussed/N/A Allergies as of 06/18/2024 - Reviewed 06/18/2024 Allergen Reaction Noted Adhesive tape Itching, Unknown, and Other (see Comments) 06/07/2016 Betadine [povidone iodine] Itching 02/17/2017 Codeine Nausea and Unknown 06/07/2016 REVIEW OF SYSTEMS Review of Systems Constitutional: Negative for malaise/fatigue and weight loss. Respiratory: Positive for shortness of breath. Cardiovascular: Negative for leg swelling. Gastrointestinal: Positive for heartburn (occasional, episodic, triggered by narcotic pain medication). Negative for constipation, diarrhea and nausea. Genitourinary: Negative for dysuria, hematuria and urgency. PHYSICAL EXAM Physical Exam Constitutional: Appearance: Normal appearance. HENT: Head: Normocephalic and atraumatic. Eyes: Conjunctiva/sclera: Conjunctivae normal. Pulmonary: Effort: Pulmonary effort is normal. Abdominal: General: Abdomen is flat. Palpations: Abdomen is soft. Comments: Incisions well healed Musculoskeletal: General: Normal range of motion. Cervical back: Normal range of motion and neck supple. Right lower leg: No edema. Left lower leg: No edema. Skin: General: Skin is warm and dry. Coloration: Skin is not jaundiced. Neurological: Mental Status: She is alert and oriented to person, place, and time. Gait: Gait is intact. Psychiatric: Mood and Affect: Affect normal. PAIN ASSESSMENT: no verbal pain complaints today. DATA: 06/17/24 LABS OSH: CBC WBC 9.0 HGB 14.0 PLT 240 CMP K+ 5.1 Cr 1.11 Ca+ 10.0 T.bili 0.3 Alk Phos 103 ALT 25 AST 18 Lab Results Component Value Date WBC 10.90 [...] 02/10/2017 CREATININE 0.78 02/10/2017 CALCIUM 9.2 02/10/2017 05/17/24 SURGICAL PATHOLOGY REPORT OSH: Kidney and [...] foci of (history of previous core biopsies, [id number]). Lymph nodes, right axillary sentinel, excision: - [...] parenchyma, pT3N0, stage III, s/p left nephrectomy Current smoker PVD with history of stent placement in the iliac arteries Plan: 1. Reviewed above clinical data including recent symptoms, labs, imaging and pathology results withpatient and family. Reviewed her diagnosis of invasive urothelial carcinoma of the right renal pelvis. Reviewed NCCN guidelines for adjuvant therapy. [place]'-based chemotherapy is preferred. We discussed option of cisplatin plus gemcitabine versus carboplatin plus gemcitabine. Her kidney function has decreased since nephrectomy and she does have some baseline hearing loss cerebral prefer carboplatin. We also discussed option of adjuvant immunotherapy with nivolumab but our 1st preference wouldbe chemotherapy given more robust data it in the setting. Discussed diagnosis, treatment options and prognostic implication of disease. 2. Discussed adjuvant systemic chemotherapy for invasive urothelial carcinoma consisting of CarboAUC5 CD1 with Gemcitabine CD1/8 every 21 days for a total of 4 planned cycles if patient tolerates. Reviewed other treatment option with Cisplatin but with likely higher toxicity due to potential for renal injury and worsening hearing loss. Touched upon alternatives including adjuvant immunotherapy with Nivolumab or surveillance alone. Patient will have repeat CT C/A/P every 3-6 months to monitor for evidence of disease. She will have cystoscopy completed every 3 months for direct visualization ofbladder for lesions. 3. Discussed with patient common side effects of systemic chemotherapy agents including but not limited to nausea, hair loss, diarrhea, increased risk of infection, fatigue, risk of allergic reaction/anaphylaxis etc. Discussed chemotherapy drugs, duration, number of cycles, side effects of the chemotherapy regimen, including Hematological, Cardiovascular, Neurological, Gastrointestinal, Dermatological, Musculoskeletal, Metabolism and nutritional side effects. Risk of infection, possible hospital admission, need for transfusion of RBC or platelets, bleeding risk, second malignancies, extravasat ion injury were also discussed. Johanna requests time to think about treatment options and coordinatingher work schedule. Will send pre/post treatment medications when treatment scheduled. 4. Discussed possibility of having port-a-cath vs PICC line placed to ease venous access for treatment. Reviewed benefits of each device with patient and sister Maggie. After discussion patient is agreeable to referral to [facility] for port placement. They will contact patient to schedule. 5. Patient will need surveillance cystoscopy to be completed every 3 months for direct visualization of bladder to monitor for evidence of disease. At this time she will continue to follow with Dr. Houston at [facility]. 6. Discussed discontinuing cigarette tobacco use to improve breathing and improve treatment efficacy. Patient was offered smoking cessation aides and information regarding [facility] facilitated smoking cessation classes. Patient requests time to think about treatment option and whether or not she even wants to start systemic chemotherapy. She was asked if there were any lingering questions or concerns regarding starting recommended treatment with Carbo/Ida. Voiced concerns regarding nerve damage secondary to treatment given history of trigeminal neuralgia causing major discomfort. Patient denied additional questions or concerns. She denies additional information needed to help with decision. The patient was given an opportunity to ask questions, and all questions answered to patient's satisfaction. Patient verbalizes understanding of the plan as outlined above. The documentation for this visit was completed by Barbara Reed acting as a scribe for Cruzito Muro MD. 06/18/2024, 12:32 PM CDT The documentation recorded by the scribe was completed while in the exam room with me and the patient. The documentation accurately reflects the service I personally performed and the decisions made by me. I have confirmed and edited the documentation as necessary. Cruzito Orr MD 06/18/2024, 12:38 PM CDT documented in this encounter Miscellaneous Notes * Interdisciplinary - Ceci Allan - 06/18/2024 10:20 AM CDT The patient reports no physical complaints. Pain score is 0. No reports of nausea, fatigue, diarrhea/ constipation or headaches. Medications reviewed. * Interdisciplinary - Leigh Nicole LPN - 06/18/2024 10:20 AM CDT Met with patient and her sister. Introduced myself and my role. Patient being seen for urothelial carcinoma. Patient has already had biopsy, scans, and surgery. Patient will need chemo. Patient will need either a PICC or port. Patient wants to go home and decide if she even wants to do any treatment. She is unsure at this point. She needs some time to do research. Patient will call me within the next week to let me know her decision. Patient and sister were given my contact information and asked to call with any questions/concerns. documented in this encounter Plan of Treatment Upcoming Encounters Date Type Department Care Team (Late st Contact Info) Description 10/16/2024 10:40 AM MANAGER APPLICATION Office Visit [facility] [address] [place] [phone] [place] [address] [place] [phone] Discharge Disposition: Discharged to home or Selfcare 10/16/2024 1:20 PM MANAGER APPLICATION Clinical Support [facility] [address] [place] [phone] Discharge Disposition: Discharged to home or Selfcare 10/17/2024 1:00 PM MANAGER APPLICATION Clinical Support [facility] [address] [place] [phone] Discharge Disposition: Discharged to home or Selfcare 10/23/2024 9:20 AM MANAGER APPLICATION Clinical Support [facility] [address] [place] [phone] Discharge Disposition: Discharged to home or Selfcare 10/24/2024 1:00 PM MANAGER APPLICATION Clinical Support [facility] [address] [place] [phone] Discharge Disposition: Discharged to home or Selfcare Scheduled Referrals Name Type Priority Associated Diagnoses Order Schedule GEN SURGICAL REFERRAL Outpatient Referral Less Than 1 week Urothelial cancer (HCC) Expected: 06/18/2024, Expires: 08/18/2024 documented as of this encounter Visit Diagnoses Diagnosis Urothelial cancer (HCC)- Primary Malignant neoplasm of other specified sites of urinary organs Gastroesophageal reflux disease without esophagitis Esophageal reflux PVD (peripheral vascular disease) (HCC) Peripheral vascular disease, unspecified Stage 3 chronic kidney disease, unspecified whether stage 3a or 3b CKD (HCC) Conductive hearing loss, bilateral documented in this encounter Care Teams Channel Installer Relationship Specialty Start Date End Date Karson Forbes MD [address] [place] [address] PCP - General Family Medicine 06/18/24 Levi Carpenter DPM Podiatry 06/07/16 documented as of this encounter
--- OUTSIDE RECORDS SUMMARY | 2024-10-13 03:59 | XMS_ITS | Encounter Summary ---
Author Organization [facility] Address [address] [place] [address] Phone Care Team Providers Care Tmd Teacher Name Role Phone Levi Carpenter Mirlande DPM Unavailable Karson Forbes MD Primary Care Provider Los Perry MD Unavailable Encounter Details Date Type Department Care Team (Late st Contact Info) Description 07/15/2024 Telephone [facility] [address] [place] [phone] Cruzito Orr MD [address] [place] [address] Social History Tobacco Use Types Packs/Day Years [...] Telephone Encounter - Whitley Rodriguez RN - 07/15/2024 11:44 AM CDT FU call placed to pt. LVM. documented in this encounter Plan of Treatment Upcoming Encounters Date Type Department Care Team (Late st Contact Info) Description 10/16/2024 10:40 AM SALES FLOOR TEAM LEADER Office Visit [facility] [address] [place] [phone] [place] [address] [place] [phone] Discharge Disposition: Discharged to home or Selfcare 10/16/2024 1:20 PM SALES FLOOR TEAM LEADER Clinical Support [facility] [address] [place] [phone] Discharge Disposition: Discharged to home or Selfcare 10/17/2024 1:00 PM SALES FLOOR TEAM LEADER Clinical Support [facility] [address] [place] [phone] Discharge Disposition: Discharged to home or Selfcare 10/23/2024 9:20 AM SALES FLOOR TEAM LEADER Clinical Support [facility] [address] [place] [phone] Discharge Disposition: Discharged to home or Selfcare 10/24/2024 1:00 PM SALES FLOOR TEAM LEADER Clinical Support [facility] [address] [place] [phone] Discharge Disposition: Discharged to home or Selfcare documented as of this encounter Visit Diagnoses Not on filedocumented in this encounter Care Teams Tmd Teacher Relationship Specialty Start Date [place] [address] PCP - General Family Medicine 06/18/24 Levi Carpenter DPM Podiatry 06/07/16 Los Perry MD [address] [phone] Consulting Physician General Surgery 06/20/24 documented as of this encounter
--- OUTSIDE RECORDS SUMMARY | 2024-10-13 03:59 | XMS_ITS | Encounter Summary ---
Author Organization [facility] Care Team Providers Care Manager Orange Name Role Phone Levi Carpenter DPM Unavailable [phone] Karson Forbes MD Primary Care Provider [phone] Los Perry MD Unavailable Encounter Details Date Type Department Care Team (Latest Contact Info) Description 08/07/2024 Travel Social History Tobacco Use Types Packs/Day [...] st Contact Info) Description 10/16/2024 10:40 AM VP BUSINESS DEVELOPMENT Office Visit [facility] [address] [place] [phone] Cruzito Orr MD [address] [place] [address] Discharge Disposition: Discharged to home or Selfcare 10/16/2024 1:20 PM VP BUSINESS DEVELOPMENT Clinical Support [facility] [address] [place] [phone] Discharge Disposition: Discharged to home or Selfcare 10/17/2024 1:00 PM VP BUSINESS DEVELOPMENT Clinical Support [facility] [address] [place] [phone] Discharge Disposition: Discharged to home or Selfcare 10/23/2024 9:20 AM VP BUSINESS DEVELOPMENT Clinical Support [facility] [address] [place] [phone] Discharge Disposition: Discharged to home or Selfcare 10/24/2024 1:00 PM VP BUSINESS DEVELOPMENT Clinical Support [facility] [address] [place] [phone] Discharge Disposition: Discharged to home or Selfcare documented as of this encounter Visit Diagnoses Not on filedocumented in this encounter Care Teams Manager Orange Relationship Specialty Start Date End Date Karson Forbes MD [address] [place] [address] PCP - General Family Medicine 06/18/24 Levi Carpenter DPM Podiatry 06/07/16 Los Perry MD [address] [phone] Consulting Physician General Surgery 06/20/24 documented as of this encounter
--- OUTSIDE RECORDS SUMMARY | 2024-10-13 04:04 | XMS_ITS | Encounter Summary ---
Author Organization [facility] Healthcare Address [address] [place] [address] Care Team Providers Care Explosion Welder Name Role Phone Phoenix Loredo MD Unavailable [phone] Aylin Lundy MD Unavailable [phone] Karson Forbes MD Primary Care Provider [phone] Daniel Last MD Unavailable [phone] Ho Phan MD Unavailable [phone] Encounter Details Date Type Department Care Team (Late st Contact Info) Description 09/28/2024 Orders Only [facility] Health Information Management [address] [place] [phone] Karson Forbes MD [address] [place] [address] Social History Tobacco Use Types Packs/Day Years Used Date Smoking Tobacco: Former Cigarettes 1 45 S tarted: 1979 Passive Smoke Exposure: Past Smokeless Tobacco: Never Alcohol Use Standard Drinks/Week Comments No 0 (1 standard drink = 0.6 oz pur e alcohol) [facility] Utilities Answer Date Recorded In the past 12 months has [employer], gas, oil, or water [employer] threatened to shut off services in your home? No 05/22/2024 Social Connection and Isolat ion Panel [NHANES] Answer Date Recorded In a typical week, how many times do you talk on the phone with family, friends, or neighbors? More than three times a week 05/22/2024 How often do you get togethe r with friends or relatives? More than three times a week 05/22/2024 How often do you attend chur or yazdanism services? More than 4 times per year 05/22/2024 Do you belong to any clubs o r organizations such as caodaism groups, unions, fraternal or athletic groups, or school groups? Yes 05/22/2024 How often do you attend meet ings of the clubs or organizations you belong to? More than 4 times per year 05/22/2024 Are you , , di vorced, , never , or living with a partner? 05/22/2024 AUDIT-C Answer Date Recorded Q1: How often do you have a drink containing alcohol? Never 06/24/2024 Q2: How many drinks containi ng alcohol do you have on a typical day when you are drinking? Patient does not drink Q3: How often do you have si x or more drinks on one occasion? Never 06/24/2024 Overall Financial Resource Strain (CARDIA) Answe r Date Recorded How hard is it for you to pa y for the very basics like food, housing, medical care, and heating? Not hard at all 05/22/2024 PHQ-2 Answer Date Recorded PHQ-2 Total Score (If total score is 3 or more points, staff should administer the PHQ-9) 0 06/24/2024 Hunger Vital Sign Answer Date Recorded Within the past 12 months, y ou worried that your food would run out before you got the money to buy more. Never true 05/22/20 24 Within the past 12 months, t he food you bought just didn't last and you didn't have money to get more. Never true 05/22/2024 PRAPARE - Transportation Answer Date Re corded In the past 12 months, has l ack of transportation kept you from medical appointments or from getting medications? No 05/09 In the past 12 months, has l ack of transportation kept you from meetings, work, or from getting things needed for daily living? No 05/22/2024 Housing Stability Vital Sign Answer Ellis e Recorded In the last 12 months, was t here a time when you were not able to pay the mortgage or rent on time? No 05/22/2024 In the past 12 months, how m any times have you moved where you were living? 0 05/22/2024 At any time in the past 12 m onths, were you homeless or living in a mcfp (including now)? No 05/22/2024 Personal Safety Answer Date Recorded Have you ever been in or are you currently in a harmful physical or emotional relationship or is someone making you feel afraid or unsafe? Denies 05/21/2024 Education Answer Date Recorded What is the highest level of school you have completed or the highest degree you have received? 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 Gender Identity Not on file Sexual Orientation Not on file documented as of this encounter Plan of Treatment Upcoming Encounters Date Type Department Care Team (Late st Contact Info) Description 02/04/2025 9:30 AM CDT Hospital Encounter [address] [address] Vic Gaines, DO 3 [facility] [address] [place] [address] 02/04/2025 9:30 AM CDT - 02/04/2025 10:00 AM CDT Surgery [address] [address] Vic Gaines, DO 3 [facility] [address] [place] [address] COLONOSCOPY Scheduled Procedures Name Priority Associated Diagnoses Date/Ti me COLONOSCOPY Encounter for screening colonoscopy 02/04/2025 9:30 AM CDT documented as of this encounter Procedures Procedure Name Priority Date/Time Associated Diagnosis Comments SCAN - LABS 09/28/2024 documented in this encounter Results * SCAN - LABS (09/28/2024) us Karson Forbes MD Edited Re sult - Final documented in this encounter Visit Diagnoses Not on filedocumented in this encounter Care Teams Explosion Welder Relationship Specialty Start Date End Date Karson Forbes MD [address] [place] [address] PCP - General Family Medicine 11/23/23 Phoenix Loredo MD Consulting Physician Cardiology 01/04/19 [place] [address] [place] [address] Brim Pouncer Obstetrics and Gynecology 04/19/21 [place] [address] [place] [address] Consulting Physician Urology 05/17/24 Ho Phan MD [address] [place] [address] Medical Oncologist/Dress Designer Hematology and Oncology 06/04/24 documented as of this encounter
--- OUTSIDE RECORDS SUMMARY | 2024-10-13 04:04 | XMS_ITS | Encounter Summary ---
Author Organization [facility] Healthcare Address [address] [place] [address] Care Team Providers Care Guard Chief Name Role Phone Phoenix Loredo MD Unavailable [phone] Aylin Lundy MD Unavailable Karson Forbes MD Primary Care Provider [phone] Daniel Last MD Unavailable [phone] Ho Phan MD Unavailable [phone] Encounter Details Date Type Department Care Team (Late st Contact Info) Description 09/25/2024 Orders Only [facility] Health Information Management [address] [place] [address] Karson Forbes MD [address] [place] [address] Social History Tobacco Use Types Packs/Day Years Used Date Smoking Tobacco: Former Cigarettes 1 45 S tarted: 1979 Passive Smoke Exposure: Past Smokeless Tobacco: Never Alcohol Use Standard Drinks/Week Comments No 0 (1 standard drink = 0.6 oz pur e alcohol) [facility] Utilities Answer Date Recorded In the past 12 months has [employer], gas, oil, or water [employer] threatened to shut off services in your [...] How often do you attend chur or baptism services? More than 4 times per year 05/22/2024 Do you belong to any clubs o r organizations such as scientology groups, unions, fraternal or athletic groups, or [...] were you homeless or living in a halfway (including now)? 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 Gender Identity Not on file Sexual Orientation Not on file documented as of this encounter Plan of Treatment Upcoming Encounters Date Type Department Care Team (Late st Contact Info) Description 02/04/2025 9:30 AM CDT Hospital Encounter [address] [address] Vic Gaines, DO 3 [facility] [address] [place] [address] 02/04/2025 9:30 AM CDT - 02/04/2025 10:00 AM CDT Surgery [address] [address] Vic Gaines, DO 3 [facility] [address] [place] [address] COLONOSCOPY Scheduled Procedures Name Priority Associated Diagnoses Date/Ti me COLONOSCOPY Encounter for screening colonoscopy 02/04/2025 9:30 AM CDT documented as of this encounter Procedures Procedure Name Priority Date/Time Associated Diagnosis Comments SCAN - LABS 09/25/2024 documented in this encounter Results * SCAN - LABS (09/25/2024) us Karson Forbes MD Edited Re sult - Final documented in this encounter Visit Diagnoses Not on filedocumented in this encounter Care Teams Guard Chief Relationship Specialty Start Date End Date Karson Forbes MD [address] [place] [address] PCP - General Family Medicine 11/23/23 Phoenix Loredo MD Consulting Physician Cardiology 01/04/19 [place] [address] [place] [address] Information Technology Internship Obstetrics and Gynecology 04/19/21 [place] [address] [place] [address] Consulting Physician Urology 05/17/24 oH Phan MD [address] [place] [address] Medical Oncologist/Tower Climber Hematology and Oncology 06/04/24 documented as of this encounter
--- OUTSIDE RECORDS SUMMARY | 2024-10-13 04:04 | XMS_ITS | Encounter Summary ---
Author Organization [facility] Healthcare Address [address] [place] [address] Care Team Providers Care Executive Administrative Assistant Name Role Phone Phoenix Loredo MD Unavailable [phone] Aylin Lundy MD Unavailable Karson Forbes MD Primary Care Provider [phone] Daniel Last MD Unavailable Ho Phan MD Unavailable [phone] Encounter Details Date Type Department Care Team (Late st Contact Info) Description 09/16/2024 Orders Only [facility] Health Information Management [address] [place] [address] Karson Forbes MD [address] [place] [address] Social History Tobacco Use Types Packs/Day Years Used Date Smoking Tobacco: Former Cigarettes 1 45 S tarted: 1979 Passive Smoke Exposure: Past Smokeless Tobacco: Never Alcohol Use Standard Drinks/Week Comments No 0 (1 standard drink = 0.6 oz pur e alcohol) [facility] Utilities Answer Date Recorded In the past 12 months has [employer], gas, oil, or water [employer] threatened to shut off services in your [...] How often do you attend chur or rastafarian services? More than 4 times per year 05/22/2024 Do you belong to any clubs o r organizations such as mormonism groups, unions, fraternal or athletic groups, or [...] were you homeless or living in a custodial (including now)? 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 Gender Identity Not on file Sexual Orientation Not on file documented as of this encounter Plan of Treatment Upcoming Encounters Date Type Department Care Team (Late st Contact Info) Description 02/04/2025 9:30 AM CDT Hospital Encounter [address] [address] Vic Gaines, DO 3 [facility] [address] [place] [address] 02/04/2025 9:30 AM CDT - 02/04/2025 10:00 AM CDT Surgery [address] [address] Vic Gaines, DO 3 [facility] [address] [place] [address] COLONOSCOPY Scheduled Procedures Name Priority Associated Diagnoses Date/Ti me COLONOSCOPY Encounter for screening colonoscopy 02/04/2025 9:30 AM CDT documented as of this encounter Procedures Procedure Name Priority Date/Time Associated Diagnosis Comments SCAN - LABS 09/16/2024 documented in this encounter Results * SCAN - LABS (09/16/2024) us Karson Forbes MD Edited Re sult - Final documented in this encounter Visit Diagnoses Not on filedocumented in this encounter Care Teams Executive Administrative Assistant Relationship Specialty Start Date End Date Karson Forbes MD [address] [place] [address] PCP - General Family Medicine 11/23/23 Phoenix Loredo MD Consulting Physician Cardiology 01/04/19 [place] [address] [place] [address] Melting Supervisor Obstetrics and Gynecology 04/19/21 [place] [address] [place] [address] Consulting Physician Urology 05/17/24 Ho Phan MD [address] [place] [address] Medical Oncologist/Ship Fastener Hematology and Oncology 06/04/24 documented as of this encounter
--- OUTSIDE RECORDS SUMMARY | 2024-10-13 04:04 | XMS_ITS | Encounter Summary ---
Author Organization [facility] Healthcare Address [address] [place] [address] Care Team Providers Care Boat Outfitting Supervisor Name Role Phone Phoenix Loredo MD Unavailable [phone] Aylin Lundy MD Unavailable [phone] Karson Forbes MD Primary Care Provider [phone] Daniel Last MD Unavailable [phone] Ho Phan MD Unavailable [phone] Encounter Details Date Type Department Care Team (Late st Contact Info) Description 09/23/2024 Orders Only [facility] Health Information Management [address] [place] [address] Karson Forbes MD [address] [place] [address] Social History Tobacco Use Types Packs/Day Years Used Date Smoking Tobacco: Former Cigarettes 1 45 S tarted: 1979 Passive Smoke Exposure: Past Smokeless Tobacco: Never Alcohol Use Standard Drinks/Week Comments No 0 (1 standard drink = 0.6 oz pur e alcohol) [facility] Utilities Answer Date Recorded In the past 12 months has [employer], gas, oil, or water [employer] threatened to shut off services in your [...] How often do you attend chur or mosque services? More than 4 times per year 05/22/2024 Do you belong to any clubs o r organizations such as anabaptism groups, unions, fraternal or athletic groups, or [...] were you homeless or living in a penitentiary (including now)? 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 Sex Female 8:44 AM PRESIDENT [place] Gender Identity Not on file Sexual Orientation Not on file documented as of this encounter Plan of Treatment Upcoming Encounters Date Type Department Care Team (Late st Contact Info) Description 02/04/2025 9:30 AM CDT Hospital Encounter [address] [address] Vic Gaines, DO 3 [facility] [address] [place] [address] 02/04/2025 9:30 AM CDT - 02/04/2025 10:00 AM CDT Surgery [address] [address] Vic Gaines, DO 3 [facility] [address] [place] [address] COLONOSCOPY Scheduled Procedures Name Priority Associated Diagnoses Date/Ti me COLONOSCOPY Encounter for screening colonoscopy 02/04/2025 9:30 AM CDT documented as of this encounter Procedures Procedure Name Priority Date/Time Associated Diagnosis Comments SCAN - LABS 09/23/2024 documented in this encounter Results * SCAN - LABS (09/23/2024) us Karson Forbes MD Final Res ult documented in this encounter Visit Diagnoses Not on filedocumented in this encounter Care Teams Boat Outfitting Supervisor Relationship Specialty Start Date End Date Karson Forbes MD [address] [place] [address] PCP - General Family Medicine 11/23/23 Phoenix Loredo MD Consulting Physician Cardiology 01/04/19 [place] [address] [place], [place] [id number] Hand Spring Repairer Helper Obstetrics and Gynecology 04/19/21 [place] [address] [place] [address] Consulting Physician Urology 05/17/24 Ho Phan MD [address] [place] [address] Medical Oncologist/Tube Dispatcher Hematology and Oncology 06/04/24 documented as of this encounter
--- OUTSIDE RECORDS SUMMARY | 2024-10-13 04:04 | XMS_ITS | Encounter Summary ---
Author Organization [facility] Healthcare Address [address] [place] [address] Care Team Providers Care Creative Designer Name Role Phone Phoenix Loredo MD Unavailable [phone] Aylin Lundy MD Unavailable [phone] Karson Forbes MD Primary Care Provider [phone] Daniel Last MD Unavailable [phone] Ho Phan MD Unavailable [phone] Encounter Details Date Type Department Care Team (Late st Contact Info) Description 10/01/2024 Orders Only [facility] Information Management [address] [place] [id number] Karson Forbes MD [address] [place] [address] Social History Tobacco Use Types Packs/Day Years Used Date Smoking Tobacco: Former Cigarettes 1 45 S tarted: 1979 Passive Smoke Exposure: Past Smokeless Tobacco: Never Alcohol Use Standard Drinks/Week Comments No 0 (1 standard drink = 0.6 oz pur e alcohol) [facility] Utilities Answer Date Recorded In the past 12 months has [employer], gas, oil, or water [employer] threatened to shut off services in your [...] How often do you attend chur or scientology services? More than 4 times per year 05/22/2024 Do you belong to any clubs o r organizations such as jain groups, unions, fraternal or athletic groups, or [...] were you homeless or living in a mcc (including now)? No 05/22/2024 Personal Safety Answer Date Recorded Have you ever been in or are you currently in a harmful physical or emotional relationship or is someone making you feel afraid or unsafe? Denies 10/05/2024 Education Answer Date Recorded What is the highest level of school you have completed or the highest degree you have received? 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 Gender Identity Not on file Sexual Orientation Not on file documented as of this encounter Plan of Treatment Upcoming Encounters Date Type Department Care Team (Late st Contact Info) Description 02/04/2025 9:30 AM CDT Hospital Encounter [address] [address] Vic Gaines, DO 3 [facility] [address] [place] [address] 02/04/2025 9:30 AM CDT - 02/04/2025 10:00 AM CDT Surgery [address] [address] Vic Gaines, DO 3 [facility] [address] [place] [address] COLONOSCOPY Scheduled Procedures Name Priority Associated Diagnoses Date/Ti me COLONOSCOPY Encounter for screening colonoscopy 02/04/2025 9:30 AM CDT documented as of this encounter Procedures Procedure Name Priority Date/Time Associated Diagnosis Comments SCAN - LABS 10/01/2024 documented in this encounter Results * SCAN - LABS (10/01/2024) us Karson Forbes MD Edited Re sult - Final documented in this encounter Visit Diagnoses Not on filedocumented in this encounter Care Teams Creative Designer Relationship Specialty Start Date End Date Karson Forbes MD [address] [place] [address] PCP - General Family Medicine 11/23/23 Phoenix Loredo MD Consulting Physician Cardiology 01/04/19 [place] [address] [place] [address] [employer]ic Industrial Truck Obstetrics and Gynecology 04/19/21 [place] [address] [place] [address] Consulting Physician Urology 05/17/24 Ho Phan MD [address] [place] [address] Medical Oncologist/Instructional Services Librarian Hematology and Oncology 06/04/24 documented as of this encounter
--- OUTSIDE RECORDS SUMMARY | 2024-10-13 04:04 | XMS_ITS | Encounter Summary ---
Author Organization [facility] Healthcare Address [address] [place] [address] Care Team Providers Care Electroencephalographic Technologist Name Role Phone Phoenix Loredo MD Unavailable [phone] Aylin Lundy MD Unavailable [phone] Karson Forbes MD Primary Care Provider [phone] Daniel Last MD Unavailable [phone] Ho Phan MD Unavailable [phone] Encounter Details Date Type Department Care Team (Late st Contact Info) Description 09/11/2024 Orders Only [facility] Health Information Management [address] [place] [id number] Karson Forbes MD [address] [place] [address] Social History Tobacco Use Types Packs/Day Years Used Date Smoking Tobacco: Former Cigarettes 1 45 S tarted: 1979 Passive Smoke Exposure: Past Smokeless Tobacco: Never Alcohol Use Standard Drinks/Week Comments No 0 (1 standard drink = 0.6 oz pur e alcohol) [facility] Utilities Answer Date Recorded In the past 12 months has [employer], gas, oil, or water [employer] threatened to shut off services in your [...] How often do you attend chur or yarsani services? More than 4 times per year 05/22/2024 Do you belong to any clubs o r organizations such as confucianism groups, unions, fraternal or athletic groups, or [...] were you homeless or living in a long-term (including now)? 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 [employer] Gender Identity Not on file Sexual Orientation Not on file documented as of this encounter Plan of Treatment Upcoming Encounters Date Type Department Care Team (Late st Contact Info) Description 02/04/2025 9:30 AM CDT Hospital Encounter [address] [address] Vic Gaines, DO 3 [facility] [address] [place] [address] 02/04/2025 9:30 AM CDT - 02/04/2025 10:00 AM CDT Surgery [address] [address] Vic Gaines, DO 3 [facility] [address] [place] [address] COLONOSCOPY Scheduled Procedures Name Priority Associated Diagnoses Date/Ti me COLONOSCOPY Encounter for screening colonoscopy 02/04/2025 9:30 AM CDT documented as of this encounter Procedures Procedure Name Priority Date/Time Associated Diagnosis Comments SCAN - LABS 09/11/2024 documented in this encounter Results * SCAN - LABS (09/11/2024) us Karson Forbes MD Edited Re sult - Final documented in this encounter Visit Diagnoses Not on filedocumented in this encounter Care Teams Electroencephalographic Technologist Relationship Specialty Start Date End Date Karson Forbes MD [address] [place] [address] PCP - General Family Medicine 11/23/23 Phoenix Loredo MD Consulting Physician Cardiology 01/04/19 [place] [address] [place] [address] Manager Logistic Obstetrics and Gynecology 04/19/21 [place] [address] [place] [address] Consulting Physician Urology 05/17/24 Ho Phan MD [address] [place] [address] Medical Oncologist/Bonding And Composite Fabricator Hematology and Oncology 06/04/24 documented as of this encounter
--- OUTSIDE RECORDS SUMMARY | 2024-10-13 04:04 | XMS_ITS ---
Author Organization [facility] Address [address] [place] [address] Care Team Providers Care Medical Sociologist Name Role Phone Phoenix Loredo MD Unavailable [phone] Aylin Lundy MD Unavailable Karson Forbes MD Primary Care Provider [phone] Daniel Last MD Unavailable [phone] Ho Phan MD Unavailable [phone] Active Problems Problem Noted Date Diagnosed Date Encounter for screening colonoscopy 07/10/2024 Pneumonia due to infectious organism, unspecified laterality, unspecified part of lung 05/21/2024 Transitional cell carcinoma of renal pelvis, unspecified laterality 05/17/2024 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 Assessment & Plan (06/24/2024 4:04 PM CDT): Stable, status post resection; patient to follow up with Oncology for chemotherapy Chronic rhinitis 05/01/2024 Assessment & Plan (05/01/2024 2:55 PM CDT): Continue fluticasone and Claritin daily May try saline nasal rinses Avoid triggers If symptoms worsen may recommend ENT Centrilobular emphysema 05/01/2024 Assessment & Plan (06/24/2024 4:04 PM CDT): Stable, well controlled; no major dyspnea; patient reports significant symptoms due to poor rehabilitation after last hospitalization; no current symptoms Assessment & Plan (05/01/2024 2:58 PM CDT): She has not been using Bevespi consistently We have we discussed the benefits of maintenance inhaled therapy PFT revealed air trapping and decreased diffusion capacity in 2020 She will continue albuterol 2 puffs every 6 hours as needed only, we have discussed indications for use If she has changes in her condition she will call and we will reconsider maintenance inhaled therapy Palpitations 04/15/2024 H/O bilateral mastectomy 06/20/2022 Overview (06/20/2022): Patient reports h/o pre-cancerous cells in both breasts May 2018 Sliding hiatal hernia 06/20/2022 Assessment & Plan (06/20/2022 9:13 AM CDT): Patient why the send me a message through [employer] or contact her coffee supervisor, Dr. Hansen, via [employer] for follow-up if needed. Gross hematuria 10/29/2021 Assessment & Plan (10/29/2021 11:06 AM SUBACUTE NURSE): Recommended referral to urology for further workup of hematuria. Inform patient with a history of smoking that she should be worked up for bladder cancer. Patient disagreed and prefers to have a CT done of her kidneys to rule out kidney stones. Order placed for CT renal. BMI 29.0-29.9,adult 10/29/2021 Assessment & Plan (10/29/2021 11:07 AM SUBACUTE NURSE): Weight reduction, daily exercise and dietary modifications recommended. Migraine 10/29/2021 Assessment & Plan (06/21/2023 9:54 AM CDT): Clinically improved, continue current prescription medications, Imitrex. Assessment & Plan (10/29/2021 11:06 AM SUBACUTE NURSE): Asymptomatic. Stable. Continue current prescription medications. PVC (premature ventricular contraction) 10/19/19 22 Dysphagia 06/17/2021 Overview (06/17/2021): Added automatically from request for surgery [id number] Bilateral carotid artery stenosis 04/26/2021 Tongue lesion 05/22/2019 Assessment & Plan (05/22/2019 8:00 AM CDT): Today's examination revealed irritated mucosa with slight hypertrophy of the papilla. It has gradually improved with oral hygiene care. There was no suspicious mucosal lesion. Patient appears to be demonstrating signs and symptoms consistent with extra esophageal reflux. Patient was provided with educational material pertaining to reflux precautions and lifestyle changes. Lobular carcinoma in situ (LCIS) of right breast 12/26/2017 [facility]06[facility]20[facility]24[facility] Pain of left foot 07/10/2017 Thyroid nodule 06/22/2017 Left leg swelling 06/02/2017 Neuritis of left foot 06/02/2017 Swelling of foot joint, left 06/02/2017 Dyslipidemia 11/25/2016 GERD (gastroesophageal reflux disease) 7 Assessment & Plan (10/29/2021 11:04 AM SUBACUTE NURSE): Patient currently on famotidine, which helps. Patient also making dietary modifications to help with symptoms. Continue current management. Assessment & Plan (04/20/2021 1:51 PM CDT): Will continue Pepcid 40 mg, but I will want to reduce to once daily until you you see GI Assessment & Plan (05/22/2019 8:00 AM CDT): Patient was placed on ranitidine 300 mg b.i.d.. Patient is instructed to discontinue omeprazole due to concerns for long-term side effects. Patient was provided with educational material regarding reflux precautions. Patient was instructed to refrain from eating a meal approximately 3 hours prior to bedtime. Patient was instructed to elevate the head of the bed by approximately 8 inches. Patient was to refrain from consuming spicy greasy fatty foods, dairy products, and excessive caffeine use. Patient was also advised to increase water consumption. Patient was also instructed on weight reduction and exercise regimen. Patient was also instructed on the importance of compliance with medications. Closed displaced fracture of proximal phalanx of lesser toe of right foot 06/07/2016 Hallux valgus (acquired), left foot 06/07/2016 Hallux valgus (acquired), right foot 06/07/2016 Tailor's bunion of left foot 06/07/2016 Migraine with aura and witho ut status migrainosus, not intractable 07/10/2014 Overview (01/12/2017): Migraine Assessment & Plan (06/24/2024 4:03 PM CDT): Stable, generally well controlled; reports less frequent less severe headaches; good relief with sumatriptan 50 mg p.r.n. for severe headaches Asthma 07/10/2014 Overview (01/12/2017): Asthma Cigarette nicotine dependence without complicati on 07/10/2014 Overview (01/12/2017): Tobacco dependence syndrome Assessment & Plan (06/24/2024 4:03 PM CDT): Not well controlled, some improvement; patient reports currently smoking about 10-15 cigarettes per day; would like to quit over the next 3 months Patient is allergic to nicotine patch at T7 Discussed other treatment alternatives; patient will continue to think about options for treatment Assessment & Plan (05/01/2024 2:56 PM CDT): - Smoking cessation counseling and techniques reviewed at length - Avoid triggers and use distraction techniques - Information given regarding [place] Tobacco Quit line: 2-436-RTTQ-YES for free services - 4 minutes spent discussing cessation Assessment & Plan (10/29/2021 11:05 AM SUBACUTE NURSE): Advised patient to quit smoking. Assessment & Plan (05/22/2019 8:02 AM CDT): Patient was made aware that there was no suspicious lesion within the upper aerodigestive tract suspicious for malignancy. However, patient is tobacco use places her at great risk for developing a life-threatening medical condition. Patient was advised to contact [facility] and seek tobacco cessation program. Atopic rhinitis 02/22/2014 Overview (01/12/2017): Allergic rhinitis Assessment & Plan (06/21/2023 9:55 AM CDT): Stable. Cont. Current prescription medications, flonase. Hyperlipidemia 02/22/2014 Overview (06/24/2024): Hyperlipidemia >>OVERVIEW FOR MULTIPLE-TYPE HYPERLIPIDEMIA WRITTEN ON 01/11/2017 6:20 PM BY INTERFACE, PROBLEM LIST CONVERSION MIXED HYPERLIPIDEMIA Assessment & Plan (06/24/2024 4:03 PM CDT): Last LDL near optimal Encourage low-fat high-fiber diet Continue atorvastatin 40 mg daily Assessment & Plan (06/24/2024 4:00 PM CDT): >>ASSESSMENT AND PLAN FOR MULTIPLE-TYPE HYPERLIPIDEMIA WRITTEN ON 04/20/2021 1:51 PM BY APRYL DAY MD Will continue on Lipitor. No side effects reported. I do note the triglycerides have increased, that is likely related to dietary changes. Perhaps add fish oil supplement. Continue Co Q10. Assessment & Plan (06/24/2024 4:00 PM CDT): >>ASSESSMENT AND PLAN FOR MULTIPLE-TYPE HYPERLIPIDEMIA WRITTEN ON 02/15/2023 8:08 AM BY LONDON RAMOS MD Lab Results Component Value Date CHOL 143 06/20/2022 CHOL 155 10/15/2021 CHOL 157 04/10/2021 Lab Results Component Value Date HDL 35 (L) 06/20/2022 HDL 36 (L) 10/15/2021 HDL 39 (L) 04/10/2021 Lab Results Component Value Date LDLCALC 79 06/20/2022 LDLCALC 85 10/15/2021 LDLCALC 79 04/10/2021 LDL 105 05/28/2016 LDL 185 11/28/2015 LDL 68 11/18/2014 Lab Results Component Value Date TRIG 144 06/20/2022 TRIG 170 (H) 10/15/2021 TRIG 196 (H) 04/10/2021 No results found for: POCCHDLR No results found for: POCNONHDL No results found for: POCCHLPL Continue current regimen lipitor 40 mg every day PVD (peripheral vascular disease) 02/22/2014 Overview (12/04/2017): PERIPH VASCULAR DIS NOS Assessment & Plan (06/24/2024 4:03 PM CDT): Stable, well controlled; status post stent placement Continue low-fat high-fiber diet Continue atorvastatin 40 mg daily; Plavix 75 mg daily Trigeminal neuralgia 02/19/2013 Overview (01/11/2017): Trigeminal neuralgia Current Oncology Plans No current plan information found. Past Plans No past plan information found. Radiation Treatments * No radiation treatments are documented for this patient in [facility]. Treatments may have been administered in another system. Lifetime Dose Tracking * Chemical Lifetime Dose Automatic Entry Manual Entr y Fluoro Time 0.008 minutes 0.008 minutes 0 minutes Air kerma at the reference point (Ka,r) 89.8 mGy 8 9.8 mGy 0 mGy DLP 107.38 mGycm 107.38 mGycm 0 mGycm CTDIvol 45.21 mGy 45.21 mGy 0 mGy Resolved Problems Problem Noted Date Diagnosed Date Resolved Date Mass of upper outer quadrant of right breast 8 06/20/2022 Overview (12/20/2017): Biopsy scheduled for 12/25 Acute maxillary sinusitis 10/28/2016 Overview (01/12/2017): Acute maxillary sinusitis, recurrence not specified Acute frontal sinusitis 09/21/201604/2018 Overview (01/12/2017): Acute non-recurrent frontal sinusitis Otitis media 07/08/2015 02/15/2023 Overview (01/12/2017): Otitis media
--- OUTSIDE RECORDS SUMMARY | 2024-10-13 04:04 | XMS_ITS | Referral Summary ---
Author Organization [facility] Address [address] [place] [address] Care Team Providers Care Roof Foreman Name Role Phone Phoenix Loredo MD Unavailable [phone] Aylin Lundy MD Unavailable [phone] Karson Forbes MD Primary Care Provider [phone] Daniel Last MD Unavailable [phone] Ho Phan MD Unavailable [phone] Encounters Date Type Department Care Team Description 10/08/2024 Orders Only [facility] [address] [place] [address] Karson Forbes MD 10/06/2024 Orders Only [facility] [address] [place] [address] 0[address]38 Karson Forbes MD 10/05/2024 2:43 PM COOK SHORT ORDER - 10/05/2024 4:30 PM COOK SHORT ORDER Emergency [facility] Emergency Department [address] [place] [address] Pain of left calf (Primary Dx) Discharge Disposition: Discharge to home or self care 10/01/2024 Orders Only [facility] [address] [place] [address] 27179 Karson Forbes MD 09/28/2024 Orders Only [facility] [address] [place] [address] 67022 Karson Forbes MD 09/25/2024 Orders Only [facility] [address] [place] [address] 74427 Karson Forbes MD 09/23/2024 Orders Only [facility] [address] [place] [address] 22876 Karson Forbes MD 09/18/2024 Orders Only [facility] [address] [place] [address] 38764 Karson Forbes MD 09/16/2024 Orders Only [facility] [address] [place] [address] [phone] Karson Forbes MD 09/12/2024 Orders Only [facility] [address] [place] [address] 83334 Karson Forbes MD 09/11/2024 Orders Only [facility] [address] [place] [address] 10242 Karson Forbes MD 09/03/2024 Orders Only [facility] [address] [place] [address] 11478 Karson Forbes MD 08/28/2024 Orders Only [facility] [address] [place] [address] 41021 Karson Forbes MD 08/23/2024 Telephone [facility] Gastroenterology at [address] [place] [address] Kasandra Guardado 08/21/2024 Orders Only [facility] [address] [place] [address] [phone] Karson Forbes MD 08/12/2024 Orders Only [facility] [address] [place] [address] 73093 Karson Forbes MD 08/07/2024 Orders Only [facility] [address] [place] [address] [phone] Karson Forbes MD 07/31/2024 Orders Only [facility] [address] [place] [address] Karson Forbes MD 07/24/2024 Orders Only [facility] [address] [place] [address] Karson Forbes MD 07/17/2024 Orders Only [facility] Cancer Genetics Department [address] [place] [id number] Domonique Moody, 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); Lobular carcinoma in situ (LCIS) of right breast; History of breast cancer; Family history of throat cancer; Family history of ovarian cancer; Family history of lymphoma; Family history of kidney cancer; Family history of stomach cancer; Family history of brain tumor; Family history of skin cancer; Family history of lung cancer from Last 3 Months Allergies Active Allergy Reactions Criticality Noted Date Comments Adhesive Itching,Rash,Blisters High Adhesive Tape-Silicones Itching,Rash,Blisters High 0 06/07/2016 Codeine Nausea only Low 06/07/2016 Nitrofurantoin Monohyd/M-Cryst Rash Medium 10/05 Other Itching,Rash,Blisters High 05/14/2024 Metals Povidone-Iodine Itching Low 02/17/2017 Medications SUMAtriptan (IMITREX) 50 mg tabletIndication s:Other migraine without status migrainosus, not intractable May repeat dose once in 2 hours if no relief. Do not exceed 2 doses in 24 hours. 9 tablet 3 3 Active albuterol HFA (PROVENTIL HFA,VENTOLIN HFA,PROAIR HFA) 90 mcg/actuation inhalerIndicatio ns:Centrilobular emphysema (HCC) Inhale 2 puffs every 6 (six) hours as needed for wheezing or shortness of breath 1 each 11 4 05/01/20 25 Active atorvastatin (LIPITOR) 40 mg tablet Take 1 tablet (40 mg total) by mouth every morning Active coenzyme Q10 200 mg capsule Take 1 capsule (200 mg total) by mouth every morning Active fluticasone propionate (FLONASE) 50 mcg/actuation nasal spray Administer 1 spray into each nostril as needed for rhinitis Active metoprolol XL (TOPROL-XL) 50 mg extended release tablet Take 1 tablet (50 mg total) by mouth every morning Active multivitamin tablet Take 1 tablet by mouth every morning Active Bacillus coagulans (PROBIOTIC, B. COAGULANS, ORAL) Take by mouth every morning Active clopidogreL (PLAVIX) 75 mg tablet TAKE 1 TABLET(75 MG) BY MOUTH DAILY 90 tablet 3 Active Active Problems Problem Noted Date Diagnosed Date [...] why the send me a message through ID90T or contact her room service waiter, Dr. Hansen, via ID90T for follow-up if needed. Gross hematuria 10/29/2021 Assessment & Plan (10/29/2021 11:06 AM COOK SHORT ORDER): Recommended referral to urology for further workup of hematuria. Inform patient with a history of smoking that she should be worked up for bladder cancer. Patient disagreed and prefers to have a CT done of her kidneys to rule out kidney stones. Order placed for CT renal. BMI 29.0-29.9,adult 10/29/2021 Assessment & Plan (10/29/2021 11:07 AM COOK SHORT ORDER): Weight reduction, daily exercise and dietary modifications recommended. Migraine 10/29/2021 Assessment & Plan (06/21/2023 9:54 AM CDT): Clinically improved, continue current prescription medications, Imitrex. Assessment & Plan (10/29/2021 11:06 AM COOK SHORT ORDER): Asymptomatic. Stable. Continue current prescription medications. PVC (premature ventricular contraction) 10/19/19 22 Dysphagia 06/17/2021 Overview (06/17/2021): Added automatically from request for surgery [id number] Bilateral carotid artery stenosis 04/26/2021 Tongue lesion [...] (LCIS) of right breast 12/26/2017 Overview (06/20/2024): [facility] Pain of left foot 07/10/2017 Thyroid nodule 06/22/2017 Left leg swelling 06/02/2017 Neuritis of left foot 06/02/2017 Swelling of foot joint, left 06/02/2017 Dyslipidemia 11/25/2016 GERD (gastroesophageal reflux disease) 7 Assessment & Plan (10/29/2021 11:04 AM COOK SHORT ORDER): Patient currently on famotidine, which helps. Patient [...] use distraction techniques - Information given regarding [place] Tobacco Quit line: [id number] for free services - 4 minutes spent discussing cessation Assessment & Plan (10/29/2021 11:05 AM COOK SHORT ORDER): Advised patient to quit smoking. Assessment & Plan (05/22/2019 8:02 AM CDT): Patient was made aware that there was no suspicious lesion within the upper aerodigestive tract suspicious for malignancy. However, patient is tobacco use places her at great risk for developing a life-threatening medical condition. Patient was advised to contact [facility] and seek tobacco cessation program. Atopic rhinitis [...] Trigeminal neuralgia 02/19/2013 Overview (01/11/2017): Trigeminal neuralgia Resolved Problems Problem Noted Date Diagnosed Date Resolved Date Mass of upper outer quadrant of right breast 8 06/20/2022 Overview (12/20/2017): Biopsy scheduled for 12/25 Acute maxillary sinusitis 10/28/2016 Overview (01/12/2017): Acute maxillary sinusitis, recurrence not specified Acute frontal sinusitis 09/21/201604/2018 Overview (01/12/2017): Acute non-recurrent frontal sinusitis Otitis media 07/08/2015 02/15/2023 Overview (01/12/2017): Otitis media Immunizations Name Administration Dates Next Due Influenza, Quadrivalent, Spl it, Intramuscular 07/09/2015 Influenza, Quadrivalent, Spl it, Preservative Free, Intramuscular 06/20/2022,07/20/2021,07/03/2020,07/08,07/07/2018 Influenza, Split 07/22/2011 Influenza, Trivalent, IM (MDV) 08/21/2014 Influenza, Unspecified 06/20/2024(Deferr ed: Patient Refused),07/18/2023(Deferred: Patient Refused),07/17/2023(Deferred: Patient Refused),06/21/2023(Deferred: Patient Refused),07/09/2017(Deferred: Patient Refused) Pneumococcal Conjugate Pcv20 06/20/2022 Pneumococcal Polysaccharide PPV23 12/17/2009 Social History Tobacco Use Types Packs/Day Years Used Date Smoking Tobacco: Former Cigarettes 1 45 S tarted: 1979 Passive Smoke Exposure: Past Smokeless Tobacco: Never Tobacco Cessation:Counseling Given: Not Answered Alcohol Use Standard Drinks/Week Comments No 0 (1 standard drink = 0.6 oz pur e alcohol) [facility] Utilities Answer Date Recorded In the past 12 months has e mii, gas, oil, or water Watsi threatened to shut off services in your [...] 05/22/2024 How often do you attend chur ch or jewish services? More than 4 times per year 05/22/2024 Do you belong to any clubs o r organizations such as restorationism groups, unions, fraternal or athletic groups, or [...] any time in the past 12 m [facility], were you homeless or living in a assisted (including now)? 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 Sex Female 8:44 AM COOK SHORT ORDER Gender Identity Not on file Sexual Orientation Not on file Last Filed Vital Signs Vital Sign Reading Time Taken Comments Blood Pressure 147/78 10/05/2024 4:29 PM COOK SHORT ORDER Pulse 53 10/05/2024 4:29 PM COOK SHORT ORDER Temperature 36.8 ??C (98.3 ??F) 10/05/2024 2:38 PM CS T Respiratory Rate 16 10/05/2024 4:29 PM COOK SHORT ORDER Oxygen Saturation 99% 10/05/2024 4:29 PM COOK SHORT ORDER Inhaled Oxygen Concentration - - Weight 63.5 kg (140 lb) 10/05/2024 2:40 PM COOK SHORT ORDER Height 154.9 cm (5' 1 ) 06/24/2024 8:16 AM CDT Body Mass Index 26.45 06/24/2024 8:16 AM CDT Plan of Treatment Upcoming Encounters Date Type Department Care Team (Late st Contact Info) Description 02/04/2025 9:30 AM CDT Hospital Encounter [address] [address] Vic Gaines, DO [address] [address] 02/04/2025 9:30 AM CDT - 02/04/2025 10:00 AM CDT Surgery [address] [address] Vic Gaines, DO [address] [address] COLONOSCOPY Scheduled Procedures Name Priority Associated Diagnoses Date/Ti me COLONOSCOPY Encounter for screening colonoscopy 02/04/2025 9:30 AM CDT Medical Devices Implanted Type Area School Speech Language Pathologist Device Identifier Shelf Expiration Date Model / Serial / Lot [employer]ig [employer] [id number] Angio-Seal Evolution 6fr .035in Guidewire Bypass Tube Suture - [id number] Implanted:Qty: 1 on 05/13/2021 by Phoenix Loredo MD at [facility] Other - see comments [employer] Steven 12/06/2021 [id number] / / [id number] [employer] [id number] Lifestream 8mm 37mm 80cm Balloon Expandable Low Profile Cover - [id number] Implanted:Qty: 1 on 05/13/2021 by Phoenix Loredo MD at [facility] Stent [employer] 02/05/2022 [id number] / / [id number] Description:Left Iliac Staple Bilatera l: Foot Procedures Procedure Name Priority Date/Time Associated Diagnosis Comments SCAN - LABS 10/08/2024 SCAN - RADIOLOGY/IMAGING 10/06/2024 EGFR STAT 10/05/2024 3:00 PM COOK SHORT ORDER DIFFERENTIAL AUTO STAT 10/05/2024 3:0 0 PM COOK SHORT ORDER CBC WITH AUTO DIFFERENTIAL STAT 10/05/2024 3:00 PM COOK SHORT ORDER COMPREHENSIVE METABOLIC PANEL STAT 10/05/2024 3:00 PM COOK SHORT ORDER D-DIMER, QUANTITATIVE STAT 10/05/2024 3:00 PM COOK SHORT ORDER SCAN - LABS 10/01/2024 SCAN - LABS 09/28/2024 SCAN - LABS 09/25/2024 SCAN - LABS 09/23/2024 SCAN - LABS 09/18/2024 SCAN - LABS 09/16/2024 SCAN - LABS 09/12/2024 SCAN - LABS 09/11/2024 SCAN - LABS 09/03/2024 SCAN - LABS 08/28/2024 SCAN - LABS 08/21/2024 SCAN - LABS 08/12/2024 SCAN - LABS 08/07/2024 SCAN - LABS 07/31/2024 SCAN - LABS 07/24/2024 THINPREP IMAGING PAP AND HPV MRNA E6/E7 REFLEX HPV 16,18/45 Routine 03/31/2023 10:40 AM CDT Encounter for well woman exam SERUM HEPATITIS PANEL Routine 11/28/2015 7:42 AM COOK SHORT ORDER COLONOSCOPY IMAGES 12/09/2014 from Last 3 Months or Most Recently Relevant to Health Maintenance Results * SCAN - LABS (10/08/2024) Karson Forbes MD Final Res ult * SCAN - RADIOLOGY/IMAGING (10/06/2024) Anatomical Region Laterality Modality Other Karson Forbes MD Final Res ult * (ABNORMAL) eGFR (10/05/2024 3:00 PM COOK SHORT ORDER) eGFR 47(L) >=60 mL/min/1. 73 m2 Comment: Interpretive Data Reference Interval Normal ?>/= 90 mL/min/1.73m2 Mildly decreased* ? 60 - 89 mL/min/1.73m2 Mildly to moderately decreased ?45 - 59 mL/min/1.73m2 Moderately to severely decreased ??30 - 44 mL/min/1.73m2 Severely decreased ?15 - 29 mL/min/1.73m2 Kidney Failure ?< 15 ??mL/min/1.73m2 *Relative to young adult level Estimated glomerular filtration rate is determined by the 2020 CKD-EPI equation recommended by the National Kidney Foundation (A Unifying Approach to GFR Estimation: Recommendations of the NKF-ASK Task Force on Reassessing the Inclusion of Race in Diagnosing Kidney Disease, JASN 2020). The CKD-EPI equation should not be used for patients with unstable renal function and has not been validated in children and those over 70. Current interpretive data was last reviewed 2021. Blood 10/05/2024 3:00 PM COOK SHORT ORDER 10/05/2024 3:09 PM COOK SHORT ORDER us Courtney SHAFFER LAB BLOOD ORDERABLES Final Resu lt [facility] ([place]) [facility] Department [place] [address] * Differential, auto (10/05/2024 3:00 PM COOK SHORT ORDER) Neutrophil abs 2.0 1.5 - 6.5 K/cumm Imm gran abs 0.0 0.0 - 0.1 K/cumm [facility] ([place]) Lymphocyte abs 2.5 0.8 - 3.3 K/cumm [facility] ([place]) Monocyte abs 0.5 0.2 - 0.8 K/cumm [facility] ([place]) Eosinophil abs 0.0 0.0 - 0.5 K/cumm [facility] ([place]) Basophil abs 0.0 0.0 - 0.1 K/cumm [facility] ([place]) Neutrophil pct 38.9 % [facility] ([place]) Comment: Interpretive Data Percent cell count reference ranges are not reported, since discordance with absolute values may lead to misinterpretation of CBC data. Current Interpretive Data was last revised on 2018. Imm gran pct 0.8 % [facility] ([place]) Comment: Interpretive Data Percent cell count reference ranges are not reported, since discordance with absolute values may lead to misinterpretation of CBC data. Current Interpretive Data was last revised on 2018. Lymphocyte pct 49.0 % [facility] ([place]) Comment: Interpretive Data Percent cell count reference ranges are not reported, since discordance with absolute values may lead to misinterpretation of CBC data. Current Interpretive Data was last revised on 2018. Monocyte pct 10.5 % [facility] ([place]) Comment: Interpretive Data Percent cell count reference ranges are not reported, since discordance with absolute values may lead to misinterpretation of CBC data. Current Interpretive Data was last revised on 2018. Eosinophil pct 0.6 % [facility] ([place]) Comment: Interpretive Data Percent cell count reference ranges are not reported, since discordance with absolute values may lead to misinterpretation of CBC data. Current Interpretive Data was last revised on 2018. Basophil pct 0.2 % [facility] ([place]) Comment: Interpretive Data Percent cell count reference ranges are not reported, since discordance with absolute values may lead to misinterpretation of CBC data. Current Interpretive Data was last revised on 2018. Blood 10/05/2024 3:00 PM COOK SHORT ORDER 10/05/2024 3:09 PM COOK SHORT ORDER us Courtney SHAFFER LAB BLOOD ORDERABLES Final Resu lt [facility] ([place] Department [place] [address] * (ABNORMAL) CBC with auto differential (10/05/2024 3:00 PM COOK SHORT ORDER) WBC 5.1 3.8 - 9.9 K/cumm Hgb 10.6(L) 11.9 - 15.5 g/dL [facility] ([place]) Hct 32.2(L) 35.6 - 45.5 % [facility] ([place]) Plt 100(L) 150 - 400 K/cumm [facility] ([place]) MPV 10.1 9.1 - 12.3 fL [facility] ([place]) RBC 2.91(L) 3.90 - 5.20 M/cumm [facility] ([place]) MCV 110.7(H) 81.3 - 96.4 fL [facility] ([place]) MCH 36.4(H) 27.1 - 33.3 pg [facility] ([place]) MCHC 32.9 32.3 - 35.7 g/dL [facility] ([place]) RDW CV 21.8(H) 11.1 - 14.9 % [facility] ([place]) RDW SD 86.6(H) 35.7 - 48.1 fL [facility] ([place]) NRBC abs 0.00 0.00 - 0.01 K/cumm [facility] Blood 10/05/2024 3:00 PM COOK SHORT ORDER 10/05/2024 3:09 PM COOK SHORT ORDER us Courtney SHAFFER LAB BLOOD ORDERABLES Final Resu lt [facility] ([place]) [facility] Department [place] [address] * (ABNORMAL) D-dimer, quantitative (10/05/2024 3:00 PM COOK SHORT ORDER) D-Dimer 838(H) <=499 ng/mL FEU [facility] ([place]) Comment: Interpretive data FDA approved the D-dimer, in conjunction with a low or moderate pretest probability score, to exclude venous thromboembolic events (VTE) (PE and DVT) in outpatients when the D-dimer result is < 500 ng/ml FEU. ?? Evidence supports using an age-adjusted D-dimer cut-off for outpatients older than 50 (age x 10) to improve specificity without sacrificing sensitivity. Example: age 68, VTE cut-off 680 ng/ml FEU. References; Schoutgetachew HT et al. Brit Med J. 2013;346:f2492. Rachel et al. Annals Int Med. 2015;163:701-11. Current interpretive data was last revised on 2019. Blood 10/05/2024 3:00 PM COOK SHORT ORDER 10/05/2024 3:09 PM COOK SHORT ORDER us Courtney SHAFFER LAB BLOOD ORDERABLES Final Resu lt [facility] ([place] Department [place] [address] * (ABNORMAL) Comprehensive metabolic panel (10/05/2024 3:00 PM COOK SHORT ORDER) Sodium 135 135 - 145 mmol/L Potassium, pl 4.7 3.3 - 4.9 mmol/L [facility]) Chloride 100 97 - 110 mmol/L [facility]) CO2 24 22 - 32 mmol/L [facility]) Anion gap 11 2 - 15 mmol/L [facility] ([place]) BUN 8 6 - 25 mg/dL [facility] ([place]) Creatinine 1.31(H) 0.60 - 1.10 mg/dL [facility] ([place]) Glucose 105 70 - 199 mg/dL [facility] Comment: Interpretive Data Fasting glucose >/= 126 mg/dl is diagnostic for diabetes. ?? Fasting is defined as no caloric intake for at least 8 hours. Fasting glucose between 100 mg/dl to 125 mg/dl is diagnostic of prediabetes. In a patient with classic symptoms of hyperglycemia or hyperglycemic crisis, a random glucose >/= 200 mg/dl is diagnostic for diabetes. In the absence of unequivocal hyperglycemia, results should be confirmed by repeat testing. The classification and Diagnosis of Diabetes Diabetes Care 2021; 46: S19-S40. Current interpretive data was last revised 2022. Calcium 9.4 8.5 - 10.3 mg/dL [facility]) Bilirubin, total <0.2 0.1 - 1.2 mg/dL [facility] ([place]) Protein, pl 6.7 6.5 - 8.5 g/dL [facility] ([place]) Albumin 4.4 3.5 - 5.0 g/dL [facility] ([place]) Alk phos 81 40 - 130 Units/L [facility]) ALT 15 7 - 45 Units/L [facility]) AST 17 10 - 45 Units/L [facility] ([place]) Blood 10/05/2024 3:00 PM COOK SHORT ORDER 10/05/2024 3:09 PM COOK SHORT ORDER Result [facility] Courtney Salgado PA LAB BLOOD ORDERABLES Final Resu lt [facility] ([place]) [facility] Department [place] [address] * SCAN - LABS (10/01/2024) Karson Forbes MD Edited Re sult - Final * SCAN - LABS (09/28/2024) Karson Forbes MD Edited Re sult - Final * SCAN - LABS (09/25/2024) Karson Forbes MD Edited Re sult - Final * SCAN - LABS (09/23/2024) Karson Forbes MD Final Res ult * SCAN - LABS (09/18/2024) Karson Forbes MD Final Res ult * SCAN - LABS (09/16/2024) Karson Forbes MD Edited Re sult - Final * SCAN - LABS (09/12/2024) us Karson Forbes MD Edited Re sult - Final * SCAN - LABS (09/11/2024) us Karson Forbes MD Edited Re sult - Final * SCAN - LABS (09/03/2024) us Karson Forbes MD Edited Re sult - Final * SCAN - LABS (08/28/2024) us Karson Forbes MD Edited Re sult - Final * SCAN - LABS (08/21/2024) us Karson Forbes MD Edited Re sult - Final * SCAN - LABS (08/12/2024) us Karson Forbes MD Edited Re sult - Final * SCAN - LABS (08/07/2024) us Karson Forbes MD Final Res ult * SCAN - LABS (07/31/2024) us Karson Forbes MD Edited Re sult - Final * SCAN - LABS (07/24/2024) Result [facility] us Karson Forbes MD Edited Re sult - Final * ThinPrep(R) Imaging Pap and HPV mRNA E6/E7 Reflex HPV 16,18/45 (03/31/2023 10:40 AM CDT) CLINICAL INFORMATION: [employer] [facility] Comment:None given LMP [facility] Comment:NONE GIVEN Previous Pap [facility] Comment:NONE GIVEN Prev. Bx [employer] [facility] Comment:NONE GIVEN SOURCE: [employer] [facility] Comment:Cervix Pap, specimen adequacy [employer] [facility] Comment: Satisfactory for evaluation. Endocervical/transformation zone component present. Age and/or menstrual status not provided HPV interp [facility] Comment:Negative for intraep ithelial lesion or malignancy. COMMENTS [facility] Comment: This Pap test has been evaluated with computer assisted technology. Professor Of Astronomy [facility] Comment: PCM, CT(ASCP) CT Screening Location: [place] [address] [address] [address] Comment [facility] Comment: EXPLANATORY NOTE: The Pap is a screening test for cervical cancer. It is not a diagnostic test and is subject to false negative and false positive results. It is most reliable when a satisfactory sample, regularly obtained, is submitted with relevant clinical findings and history, and when the Pap result is evaluated along with historic and current clinical information. Human papillomavirus RNA, High Risk E6/E7 Not Detected Not Detected Rust Reedsy [facility] Comment: Methodology: Enrollment Consultant-Mediated Amplification This assay detects E6/E7 viral messenger RNA (mRNA) from 14 high-risk HPV types (16,18,31,33,35,39,45,51,52,56,58,59,66,68). Cervical sources are required for HPV testing. If a vaginal source from a patient who has had a total hysterectomy with removal of cervix was submitted, please contact the testing laboratory for alternative testing options. For additional information, please refer to http://education.Codarica/faq/FRO936y7 (This link if provided for information/ educational purposes only.) Swab 03/31/2023 10:4 0 AM CDT 04/01/2023 12:35 AM CDT us Aylin Lundy MD LAB CYTOLOGY ORDERABLES Fin al Result [facility] [address] [address] [place] [address] Rust ReedsyJulianne [address] [place] [address] * Serum Hepatitis panel (11/28/2015 7:42 AM COOK SHORT ORDER) HAV ab, IgM Negative Negative HISTORIC AL RESULTS HBV core ab, IgM Negative Negative HISTORICAL RESULTS HBV surface ag Negative Negative HISTO RICAL RESULTS Comment:Test performed at [facility], [address] [place] [address]., [id number] HCV ab Negative Negative HISTORICAL RESULTS Serum 11/28/2015 7:42 AM COOK SHORT ORDER Historical Provider LAB BLOOD ORDERABLES Ivette deutsch Result HISTORICAL RESULTS * COLONOSCOPY IMAGES (12/09/2014) Anatomical Region Laterality Modality Other Narrative 12/09/2014 Ordered by an unspecified provider. Historical Provider GI PROCEDURE ORDERABLES F inal Result from Last 3 Months or Most Recently Relevant to Health Maintenance Insurance [facility] CHO[facility] PLUS [facility] CHO[facility] PLUS [facility] PLUS [facility] CHO[facility] PLUS Advance Directives For more information, please contact: [phone] * Full Code (Latest Code Status on File) Date Activated Date Inactivated Comments 05/21/2024 5:57 PM 05/23/2024 5:05 PM * Full Code Date Activated Date Inactivated Comments 05/17/2024 5:16 PM 05/20/2024 3:24 PM * Full Code Date Activated Date Inactivated Comments 05/17/2024 3:27 PM 05/17/2024 5:16 PM * Full Code Date Activated Date Inactivated Comments 08/02/2021 7:37 AM 08/02/2021 1:41 PM * Full Code Date Activated Date Inactivated Comments 05/13/2021 9:26 AM 05/13/2021 4:57 PM Care Teams Roof Foreman Relationship Specialty Start Date End Date [place] [address] PCP - General Family Medicine 11/23/23 Phoenix Loredo MD Consulting Physician Cardiology 01/04/19 [place] [address] [place] [address] Rewind Operator Obstetrics and Gynecology 04/19/21 [place] [address] [address] Consulting Physician Urology 05/17/24 Ho Phan MD [address] [place] [address] Medical Oncologist/Cloth Beamer Hematology and Oncology 06/04/24
--- OUTSIDE RECORDS SUMMARY | 2024-10-13 04:04 | XMS_ITS | Encounter Summary ---
Author Organization [facility] Healthcare Address [address] [place] [address] Care Team Providers Care Spinning Lathe Operator Hydraulic Name Role Phone Phoenix Loredo MD Unavailable [phone] Aylin Lundy MD Unavailable [phone] Karson Forbes MD Primary Care Provider [phone] Daniel Last MD Unavailable [phone] Ho Phan MD Unavailable [phone] Reason for Visit * Reason Comments Leg Pain Encounter Details Date Type Department Care Team (Late st Contact Info) Description 10/05/2024 2:43 PM BINDERY LIBRARY TECHNICAL ASSISTANT - 10/05/2024 4:30 PM [facility] Emergency [facility] Emergency Department [address] [place] [address] Pain of left calf (Primary Dx) Discharge Disposition: Discharge to home or self care Social History Tobacco Use Types Packs/Day Years Used Date Smoking Tobacco: Former Cigarettes 1 45 S tarted: 1979 Passive Smoke Exposure: Past Smokeless Tobacco: Never Alcohol Use Standard Drinks/Week Comments No 0 (1 standard drink = 0.6 oz pur e alcohol) [facility] Utilities Answer Date Recorded In the past 12 months has e electric, gas, oil, or water company threatened to shut off services in your [...] How often do you attend chur or zoroastrian services? More than 4 times per year 05/22/2024 Do you belong to any clubs o r organizations such as zoroastrian groups, unions, fraternal or athletic groups, or [...] any time in the past 12 m [facility], were you homeless or living in [...] on file Legal Sex Female 8:44 AM BINDERY LIBRARY TECHNICAL ASSISTANT Gender Identity Not on file Sexual Orientation Not on file documented as of this encounter Last Filed Vital Signs Vital Sign Reading Time Taken Comments Blood Pressure 147/78 10/05/2024 4:29 PM BINDERY LIBRARY TECHNICAL ASSISTANT Pulse 53 10/05/2024 4:29 PM BINDERY LIBRARY TECHNICAL ASSISTANT Temperature 36.8 ??C (98.3 ??F) 10/05/2024 2:38 PM CS T Respiratory Rate 16 10/05/2024 4:29 PM BINDERY LIBRARY TECHNICAL ASSISTANT Oxygen Saturation 99% 10/05/2024 4:29 PM BINDERY LIBRARY TECHNICAL ASSISTANT Inhaled Oxygen Concentration - - Weight 63.5 kg (140 lb) 10/05/2024 2:40 PM BINDERY LIBRARY TECHNICAL ASSISTANT Height - - Body Mass Index 26.45 06/24/2024 8:16 AM CDT documented in this encounter Discharge Instructions * Discharge Instructions* Courtney Salgado PA - 10/05/2024 4:10 PM BINDERY LIBRARY TECHNICAL ASSISTANT You were seen today for evaluation of left calf and anterior rock pain for the past week, worseningfor the past few days. Unfortunately, we do not have ultrasound here on the weekends. A blood clot was attempted to be ruled out by a D-dimer, unfortunately this was too elevated to be able to exclude without an ultrasound. You were started on a single dose of Lovenox here, you will need to have an ultrasound though to rule in or out a blood clot. We will not have ultrasound here on Monday, 10/06. Please follow up at anemergency room which will have ultrasound. This is any of the level 1 trauma facilities in the area, ([facility], [facility]) and [facility]. Should you choose another hospital, please call their ER to see if ultrasound is available at the time you are going. Return to the ER for any significant change in symptoms including trouble breathing, chest pain, episodes of passing out ERY LIBRARY TECHNICAL ASSISTANT documented in this encounter Medications at Time of Discharge albuterol HFA (PROVENTIL HFA,VENTOLIN HFA,PROAIR HFA) 90 mcg/actuation inhalerIndication s:Centrilobular emphysema (HCC) Inhale 2 puffs every 6 (six) hours as needed for wheezing or shortness of breath 1 each 05/01/2024 atorvastatin (LIPITOR) 40 mg tablet Take 1 tablet (40 mg total) by mouth every morning Bacillus coagulans (PROBIOTIC, B. COAGULANS, ORAL) Take by mouth every morning clopidogreL (PLAVIX) 75 mg tablet TAKE 1 TABLET(75 MG) BY MOUTH DAILY 90 tablet 3 08/30/2024 coenzyme Q10 200 mg capsule Take 1 capsule (200 mg total) by mouth every morning fluticasone propionate (FLONASE) 50 mcg/actuation nasal spray Administer 1 spray into each nostril as needed for rhinitis metoprolol XL (TOPROL-XL) 50 mg extended release tablet Take 1 tablet (50 mg total) by mouth every morning multivitamin tablet Take 1 tablet by mouth every morning SUMAtriptan (IMITREX) 50 mg tabletIndications :Other migraine without status migrainosus, not intractable May repeat dose once in 2 hours if no relief. Do not exceed 2 doses in 24 hours. 9 tablet 3 06/21/2023 documented as of this encounter Discharge Disposition Disposition Code Departure Means Destination Comment s Discharge to home or self care documented in this encounter ED Notes * Courtney Salgado PA - 10/05/2024 4:13 PM CST HPI Chief Complaint Patient presents with Leg Pain 20-year-old A&O x4 female patient presents for evaluation of left calf pain. Initially started 10 days prior, has been worsening for the past 2 days. She states it since near left tibialis anterior, does at times radiate to calf. 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/08/2024 Chronic rhinitis 05/01/2024 Centrilobular emphysema (HCC) 05/01/2024 Palpitations 04/15/2024 H/O bilateral mastectomy 06/20/2022 Sliding hiatal hernia 06/20/2022 Gross hematuria 10/29/2021 BMI 29.0-29.9,adult 10/29/2021 Migraine 10/29/2021 PVC (premature ventricular contraction) 10/19/2021 Dysphagia 06/17/2021 Bilateral carotid artery stenosis 04/26/2021 Tongue lesion 05/22/2019 Lobular carcinoma in situ (LCIS) of right breast 12/26/2017 Pain of left foot 07/10/2017 Thyroid nodule 06/22/2017 Left leg swelling 06/02/2017 Neuritis of left foot 06/02/2017 Swelling of foot joint, left 06/02/2017 Dyslipidemia 11/25/2016 GERD (gastroesophageal reflux disease) 11/25/2016 Closed displaced fracture of proximal phalanx of lesser toe of right foot 06/07/2016 Hallux valgus (acquired), left foot 06/07/2016 Hallux valgus (acquired), right foot 06/07/2016 Tailor's bunion of left foot 06/07/2016 Migraine with aura and without status migrainosus, not intractable 07/10/2014 Asthma 07/10/2014 Cigarette nicotine dependence without complication 07/10/2014 Atopic rhinitis 02/22/2014 Hyperlipidemia 02/22/2014 PVD (peripheral vascular disease) ([facility]) 02/22/2014 Trigeminal neuralgia 02/19/2013 Past Medical History: Diagnosis Date Asthma Asthma; Comments: DNT 07/10/2014 - Chronic rhinitis 05/01/2024 Dysphagia Gastroesophageal reflux disease GERD HX OTHER MEDICAL 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 HX OTHER MEDICAL vocal cord polyp; Comments: removed and benign. 2003 HX OTHER MEDICAL Allergies, seasonal; Comments: DNT 07/10/2014 - HX OTHER MEDICAL migraines; Comments: DNT 07/10/2014 - HX OTHER MEDICAL PVD; Comments: DNT 07/10/2014 - HX OTHER MEDICAL Stent Placement Hypercholesterolemia High cholesterol; Comments: DNT 07/10/2014 - Peripheral vascular disease (HCC) Peripheral vascular disease; Comments: 2 in each iliac. 3 surgeries. last procedure 01/08/2008 Past Surgical History: Procedure Laterality Date BUNIONECTOMY Right 11/2016 BUNIONECTOMY Left 02/2017 CHOLECYSTECTOMY 1998 Cholecystectomy MASTECTOMY MODIFIED RADICAL / SIMPLE / COMPLETE Bilateral 2018 NEPHROURETERECTOMY Left 2023 OTHER SURGICAL HISTORY PVD: stents x 4 placed in 2004 and 2007 OTHER SURGICAL HISTORY 2003 polypectomy for vocal cords Family History Problem Relation Age of Onset Depression Mother Depression; Diabetes type I Mother Diabetes -Type 1; Other Mother cataracts; Hypertension Father Hypertension; Throat cancer Father Cancer -throat; Cause of : Cancer -throat Other Sister Alive and well; Other Brother Alive and well; Other Brother Alive and well; Other Brother Alive and well; Brain cancer Father's Sister brain cancer; Lymphoma Father's Sister Lymphoma; Diabetes Other Family history of Diabetes mellitus; Ovarian cancer Mother's Sister 55 Social History Tobacco Use Smoking status: Former Current packs/day: 0.75 Average packs/day: 1 pack/day for 45.0 years (44.7 ttl pk-yrs) Types: Cigarettes Start date: 1979 Passive exposure: Past Smokeless tobacco: Never Substance and Sexual Activity Alcohol use: No Drug use: Yes Types: Tobacco Sexual activity: Defer Social History Social History Narrative Not on file Review of Systems Review of Systems Musculoskeletal: Positive for myalgias. All other systems reviewed and are negative. Physical Exam ED Triage Vitals Temp Pulse Resp BP SpO2 10/05/24 1438 10/05/24 1440 10/05/24 1440 10/05/24 1440 10/05/24 1440 36.8 ??C (98.3 ??F) 75 15 122/59 100 % Temp src Heart Rate Source Patient Position BP Location FiO2 (%) 10/05/24 1438 -- -- -- -- Temporal Height Height Method Weight Weight Method -- -- 10/05/24 1440 10/05/24 1440 63.5 kg (140 lb) Stated Physical Exam Vitals and nursing note reviewed. Constitutional: General: She is not in acute distress. Appearance: Normal appearance. She is not ill-appearing, toxic-appearing or diaphoretic. Eyes: Extraocular Movements: Extraocular movements intact. Pupils: Pupils are equal, round, and reactive to light. Cardiovascular: Rate and Rhythm: Normal rate. Pulses: Normal pulses. Pulmonary: Effort: Pulmonary effort is normal. Breath sounds: Normal breath sounds. Abdominal: Tenderness: There is no abdominal tenderness. Musculoskeletal: General: No swelling or tenderness. Normal range of motion. Cervical back: Normal range of motion. Skin: General: Skin is warm and dry. Capillary Refill: Capillary refill takes less than 2 seconds. Neurological: General: No focal deficit present. Mental Status: She is alert and oriented to person, place, and time. Cranial Nerves: No cranial nerve deficit. Sensory: No sensory deficit. Motor: No weakness. Coordination: Coordination normal. Gait: Gait normal. Deep Tendon Reflexes: Reflexes normal. MDM Medical Decision Making 59-year-old A&O x4 female patient presents for evaluation of left leg pain. This has been ongoing for the past 10 days but worsening for the past 2 days. Initially started after walking all around at [place]. She states it initially started near the dorsal aspect of her left foot, has since radiated to left tibialis anterior and at times going to calf. No popliteal tenderness. It was not get worse with dorsiflexion or plantar flexion. She was not had any swelling or tenderness to the leg. NoVTE history. She was currently receiving chemo for urothelial carcinoma. She has been having issueslately with platelets dropping and anemia so her chemo treatment has been delayed. Her oncologist is Dr. Silver through [facility]. She denies dyspnea, chest pain, nausea/vomiting/diarrhea. No headache or dizziness Physical exam shows well-appearing female patient. Lungs clear all almeida. Heart tones normal. Skinpink/warm/dry. Left lower extremity has no erythema, swelling. No tenderness to popliteal region orcalf. No Adair's cyst appreciated. Full range of motion to left knee, left ankle. Left foot neurovascularly intact. There is some tenderness to left anterior rock. No crepitus Differential: Musculoskeletal injury, cramp, spasm, metabolic derangement, DVT Plan: Unfortunately ultrasound is not here today. CBC, CMP, we will attempt to rule out with a D-dimer. Unlikely to be able to do so due to history, age, chemo Amount and/or Complexity of Data Reviewed Labs: ordered. Decision-making details documented in ED Course. Risk Prescription drug management. ED Course as of 10/05/24 1620 Time: 10/05 1530 Value: CBC with auto differential(!): WBC 5.1 Hgb 10.6(!) Hct 32.2(!) Plt 100(!) MPV 10.1 RBC 2.91(!) MCV 110.7(!) MCH 36.4(!) MCHC 32.9 RDW CV 21.8(!) RDW SD 86.6(!) NRBC abs 0.00 Comment: Currently on chemo By: Courtney Salgado PA Time: 10/05 1531 Value: Creatinine(!): 1.31 Comment: Chronic, slightly increased from baseline By: Courtney Salgado PA Time: 10/05 1531 Value: D-Dimer(!): 838 Comment: (Reviewed) By: Courtney Salgado PA Time: 10/05 285 Comment: Spoke to patient, this initially started 10 days prior after over- exertion in target. It sits following an anterior tibialis track. It does radiate at times back to the calf. No popliteal tenderness. D-dimer here was unfortunately unable to exclude clot and we do not have US here today. She is currently on chemo and recently having issues with thrombocytopenia and anemia. We will speak to her oncology team to ensure we are providing treatment that they would prefer By: Courtney Salgado PA Time: 10/05 1554 Comment: Spoke to Dr. Silver, her oncologist. She agrees likely musculoskeletal but out of abundanceof caution would prefer dose of Lovenox here and follow up for ultrasound. Patient was agreeable with plan. Went over CBC with Dr. Silver, requesting 1.5mg/kg dose of lovenox and US tomorrow By: Courtney Salgado PA Time: 10/05 1619 Comment: Spoke to patient regarding recommendations. She understands importance of following up with ultrasound tomorrow. We again do not have ultrasound here tomorrow, we will have her follow up at a different facility and ensure she calls a head and makes her ultrasound is there. She was agreeable with plan. Return precautions given. All questions answered By: Courtney Salgado PA Final diagnoses: Pain of left calf Courtney Salgado PA 10/05/24 1620 ERY LIBRARY TECHNICAL ASSISTANT * Nataly Gifford, RN - 10/05/2024 2:39 PM CST Pt states she has left calf pain for a week and in the past two days has been more consistent. Pt states that she is a chemo pt and concerned for blood clot. ERY LIBRARY TECHNICAL ASSISTANT documented in this encounter Plan of Treatment Upcoming Encounters Date Type Department Care Team (Late st Contact Info) Description 02/04/2025 9:30 AM CDT Hospital Encounter [facility] [address] [place] [address] Vic Gaines, DO [address] [place] [address] [place] [address] 02/04/2025 9:30 AM CDT - 02/04/2025 10:00 AM CDT Surgery [facility] [address] [place] [address] Vic Gaines, DO [address] [facility] [address] [place] [address] [place] [address] COLONOSCOPY Scheduled Procedures Name Priority Associated Diagnoses Date/Ti me COLONOSCOPY Encounter for screening colonoscopy 02/04/2025 9:30 AM CDT documented as of this encounter Procedures Procedure Name Priority Date/Time Associated Diagnosis Comments EGFR STAT 10/05/2024 3:00 PM BINDERY LIBRARY TECHNICAL ASSISTANT DIFFERENTIAL AUTO STAT 10/05/2024 3:0 0 PM BINDERY LIBRARY TECHNICAL ASSISTANT CBC WITH AUTO DIFFERENTIAL STAT 10/05/2024 3:00 PM BINDERY LIBRARY TECHNICAL ASSISTANT D-DIMER, QUANTITATIVE STAT 10/05/2024 3:00 PM BINDERY LIBRARY TECHNICAL ASSISTANT COMPREHENSIVE METABOLIC PANEL STAT 10/05/2024 3:00 PM BINDERY LIBRARY TECHNICAL ASSISTANT documented in this encounter Results * (ABNORMAL) eGFR (10/05/2024 3:00 PM BINDERY LIBRARY TECHNICAL ASSISTANT) eGFR 47(L) >=60 mL/min/1. 73 m2 Comment: [...] last reviewed 2021. Blood 10/05/2024 3:00 PM BINDERY LIBRARY TECHNICAL ASSISTANT 10/05/2024 3:09 PM BINDERY LIBRARY TECHNICAL ASSISTANT us Courtney SHAFFER LAB BLOOD ORDERABLES Final Resu lt [facility] ([place]) 1 [facility] Department [place] [address] * Differential, auto (10/05/2024 3:00 PM BINDERY LIBRARY TECHNICAL ASSISTANT) Neutrophil abs 2.0 1.5 - 6.5 K/cumm Imm gran abs 0.0 0.0 - 0.1 K/cumm [facility] ([facility]) Lymphocyte abs 2.5 0.8 - 3.3 K/cumm [facility] ([place]) Monocyte abs 0.5 0.2 - 0.8 K/cumm [facility] ([place]) Eosinophil abs 0.0 0.0 - [...] revised on 2018. Monocyte pct 10.5 % [facility] ([place]) Comment: Interpretive Data Percent cell [...] revised on 2018. Basophil pct 0.2 % [facility] ([place]) Comment: Interpretive Data Percent cell count reference ranges are not reported, since discordance with absolute values may lead to misinterpretation of CBC data. Current Interpretive Data was last revised on 2018. Blood 10/05/2024 3:00 PM BINDERY LIBRARY TECHNICAL ASSISTANT 10/05/2024 3:09 PM BINDERY LIBRARY TECHNICAL ASSISTANT us Courtney SHAFFER LAB BLOOD ORDERABLES Final Resu lt [facility] ([place]) 1 [facility] Department of Laboratories [place], [place] [id number] * (ABNORMAL) CBC with auto differential (10/05/2024 3:00 PM BINDERY LIBRARY TECHNICAL ASSISTANT) WBC 5.1 3.8 - 9.9 K/cumm Hgb [...] NRBC abs 0.00 0.00 - 0.01 K/cumm [facility] ([place]) Blood 10/05/2024 3:00 PM BINDERY LIBRARY TECHNICAL ASSISTANT 10/05/2024 3:09 PM BINDERY LIBRARY TECHNICAL ASSISTANT us Courtney SHAFFER LAB BLOOD ORDERABLES Final Resu lt [facility] ([place]) 1 [facility] Department [place] [address] * (ABNORMAL) Comprehensive metabolic panel (10/05/2024 3:00 PM BINDERY LIBRARY TECHNICAL ASSISTANT) Sodium 135 135 - 145 mmol/L Potassium, [...] (ART[place]) Glucose 105 70 - 199 mg/dL [facility] ([place]) Comment: Interpretive Data Fasting glucose [...] classification and Diagnosis of Diabetes Diabetes Care 202; 46: S19-S40. Current interpretive data was last [...] [facility] ([place]) Blood 10/05/2024 3:00 PM BINDERY LIBRARY TECHNICAL ASSISTANT 10/05/2024 3:09 PM BINDERY LIBRARY TECHNICAL ASSISTANT us Courtney SHAFFER LAB BLOOD ORDERABLES Final Resu lt [facility] ([place]) 1 [facility] Department [place] [address] * (ABNORMAL) D-dimer, quantitative (10/05/2024 3:00 PM BINDERY LIBRARY TECHNICAL ASSISTANT) D-Dimer 838(H) <=499 ng/mL FEU [facility] [...] 68, VTE cut-off 680 ng/ml FEU. References; Schouten HT et al. Brit Med J. 2013;346:f2492. Rachel et al. Annals Int Med. 2015;163:701-11. Current interpretive data was last revised on 2019. Blood 10/05/2024 3:00 PM BINDERY LIBRARY TECHNICAL ASSISTANT 10/05/2024 3:09 PM BINDERY LIBRARY TECHNICAL ASSISTANT us Courtney SHAFFER LAB BLOOD ORDERABLES Final Resu lt [facility] ([place]) 1 [facility] Department of [address] [place] [address] documented in this encounter Visit Diagnoses Diagnosis Encounter for screening colonoscopy- Primary Pain of left calf- Primary Encounter for screening colonoscopy documented in this encounter Administered Medications Inactive Administered Medications - up to 3 most recent administrations Medication Order MAR Action Action Date Dose Rate Site enoxaparin (LOVENOX) syringe 100 mg 100 mg (rounded from 95.25 mg = 1.5 mg/kg ? 63.5 kg), subcutaneous, Daily (for enoxaparin), First dose on 10/05/24 at 1607, Indications: Venous ThrombosisIndications:Ve nous Thrombosis Given 10/05/2024 4:22 PM BINDERY LIBRARY TECHNICAL ASSISTANT 100 mg Left Lower Abdomen documented in this encounter Active and Recently Administered Medications Times are shown in BINDERY LIBRARY TECHNICAL ASSISTANT. Scheduled Medication Order 10/03/2024 10/04/2024 10/05/2024 enoxaparin (LOVENOX) syringe 100 mg 100 mg (rounded from 95.25 mg = 1.5 mg/kg ? 63.5 kg), subcutaneous, Daily (for enoxaparin), First dose on 10/05/24 at 1607, Indications: Venous Thrombosis 1622 (Given - Provid er: Tamika Escobedo RN) documented in this encounter Care Teams Spinning Lathe Operator Hydraulic Relationship Specialty Start Date End Date Karson [place] [address] PCP - General Family Medicine 11/23/23 Phoenix Loredo MD Consulting Physician Cardiology 01/04/19 [place] [address] [place] [address] Manager Inside Obstetrics and Gynecology 04/19/21 [place] [address] [place] [address] Consulting Physician Urology 05/17/24 Ho Phan MD [address] [place] [address] Medical Oncologist/Brake Repair Supervisor Hematology and Oncology 06/04/24 documented as of this encounter
--- OUTSIDE RECORDS SUMMARY | 2024-10-13 04:04 | XMS_ITS | Encounter Summary ---
Author Organization [facility] Healthcare Address [address] [place] [address] Care Team Providers Care Maintenance Service Supervisor Name Role Phone Phoenix Loredo MD Unavailable [phone] Aylin Lundy MD Unavailable [phone] Karson Forbes MD Primary Care Provider [phone] Daniel Last MD Unavailable [phone] Ho Phan MD Unavailable [phone] Encounter Details Date Type Department Care Team (Late st Contact Info) Description 09/18/2024 Orders Only [facility] Health Information Management [address] [place] [address] Karson Forbes MD [address] [place] [address] Social History Tobacco Use Types Packs/Day Years Used Date Smoking Tobacco: Former Cigarettes 1 45 S tarted: 1979 Passive Smoke Exposure: Past Smokeless Tobacco: Never Alcohol Use Standard Drinks/Week Comments No 0 (1 standard drink = 0.6 oz pur e alcohol) [facility] Utilities Answer Date Recorded In the past 12 months has [employer] gas, oil, or water [employer] threatened to shut off services in your [...] How often do you attend chur or faith services? More than 4 times per year 05/22/2024 Do you belong to any clubs o r organizations such as nondenominational groups, unions, fraternal or athletic groups, or [...] were you homeless or living in a fdc (including now)? 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 Sex Female 8:44 AM FINANCIAL MANAGEMENT ANALYST Gender Identity Not on file Sexual Orientation Not on file documented as of this encounter Plan of Treatment Upcoming Encounters Date Type Department Care Team (Late st Contact Info) Description 02/04/2025 9:30 AM CDT Hospital Encounter [address] [address] Vic Gaines, DO 3 [facility] [place] [place] [address] 02/04/2025 9:30 AM CDT - 02/04/2025 10:00 AM CDT Surgery [address] [address] Vic Gaines, DO 3 [facility] [place] [address] [place] [address] COLONOSCOPY Scheduled Procedures Name Priority Associated Diagnoses Date/Ti me COLONOSCOPY Encounter for screening colonoscopy 02/04/2025 9:30 AM CDT documented as of this encounter Procedures Procedure Name Priority Date/Time Associated Diagnosis Comments SCAN - LABS 09/18/2024 documented in this encounter Results * SCAN - LABS (09/18/2024) us Karson Forbes MD Final Res ult documented in this encounter Visit Diagnoses Not on filedocumented in this encounter Care Teams Maintenance Service Supervisor Relationship Specialty Start Date End Date Karson Forbes MD [address] [place] [address] PCP - General Family Medicine 11/23/23 Phoenix Loredo MD Consulting Physician Cardiology 01/04/19 [place] [address] [place], [place] [id number] Realtime Court Reporter Obstetrics and Gynecology 04/19/21 [place] [address] [place] [address] Consulting Physician Urology 05/17/24 Ho Phan MD [address] [place] [address] Medical Oncologist/Locator Hematology and Oncology 06/04/24 documented as of this encounter
--- OUTSIDE RECORDS SUMMARY | 2024-10-13 04:04 | XMS_ITS | Clinical Summary ---
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 Hansen, via [employer] for follow-up if needed. Gross hematuria 10/29/2021 Assessment & Plan (10/29/2021 11:06 AM ASSIGNMENT DESK EDITOR): Recommended referral to urology for further workup of hematuria. Inform patient with a history of smoking that she should be worked up for bladder cancer. Patient disagreed and prefers to have a CT done of her kidneys to rule out kidney stones. Order placed for CT renal. BMI 29.0-29.9,adult 10/29/2021 Assessment & Plan (10/29/2021 11:07 AM ASSIGNMENT DESK EDITOR): Weight reduction, daily exercise and dietary modifications recommended. Migraine 10/29/2021 Assessment & Plan (06/21/2023 9:54 AM CDT): Clinically improved, continue current prescription medications, Imitrex. Assessment & Plan (10/29/2021 11:06 AM ASSIGNMENT DESK EDITOR): Asymptomatic. Stable. Continue current prescription medications. PVC (premature ventricular contraction) 10/19/19 22 Dysphagia 06/17/2021 Overview (06/17/2021): Added automatically from request for surgery [id number] Bilateral carotid artery stenosis 04/26/2021 Tongue lesion [...] 7 Assessment & Plan (10/29/2021 11:04 AM ASSIGNMENT DESK EDITOR): Patient currently on famotidine, which helps. Patient [...] use distraction techniques - Information given regarding [place] [employer] Quit line: 4-400-OSRD-YES for free services - 4 minutes spent discussing cessation Assessment & Plan (10/29/2021 11:05 AM ASSIGNMENT DESK EDITOR): Advised patient to quit smoking. Assessment & Plan (05/22/2019 8:02 AM CDT): Patient was made aware that there was no suspicious lesion within the upper aerodigestive tract suspicious for malignancy. However, patient is tobacco use places her at great risk for developing a life-threatening medical condition. Patient was advised to contact [facility] and seek tobacco cessation program. [...] media 07/08/2015 02/15/2023 Overview (01/12/2017): Otitis media Encounters Date Type Department Care Team Description 10/08/2024 Orders Only [facility] Health Information Management [address] [place] [address] Karson Forbes MD 10/06/2024 Orders Only [facility] [address] [place] [address] Karson Forbes MD 10/05/2024 2:43 PM ASSIGNMENT DESK EDITOR - 10/05/2024 4:30 PM ASSIGNMENT DESK EDITOR Emergency [facility] Emergency Department [address] [place] [address] Pain of left calf (Primary Dx) Discharge Disposition: Discharge to home or self care 10/01/2024 Orders Only [facility] Information [facility] [address] [place] [address] Karson Forbes MD 09/28/2024 Orders Only [facility] [address] [place] [address] Karson Forbes MD 09/25/2024 Orders Only [facility] Information [facility] [address] [place] [address] Karson Forbes MD 09/23/2024 Orders Only [facility] [address] [place] [address] Karson Forbes MD 09/18/2024 Orders Only [facility] [address] [place] [address] Karson Forbes MD 09/16/2024 Orders Only [facility] [address] [place] [address] Karson Forbes MD 09/12/2024 Orders Only [facility] [address] [place] [address] 19357 Karson Forbes MD 09/11/2024 Orders Only [facility] [address] [place] [address] Karson Forbes MD 09/03/2024 Orders Only [facility] [address] [place] [address] Karson Forbes MD 08/28/2024 Orders Only [facility] [address] [place] [address] Karson Forbes MD 08/23/2024 Telephone [facility] G[facility]ology at [address] [place] [address] Kasandra Guardado 08/21/2024 Orders Only [facility] [address] [place] [address] Karson Forbes MD 08/12/2024 Orders Only [facility] [address] [place] [address] Karson Forbes MD 08/07/2024 Orders Only [facility] [address] [place] [address] Karson Forbes MD 07/31/2024 Orders Only [facility] [address] [place] [address] Karson Forbes MD 07/24/2024 Orders Only [facility] [address] [place] [address] Karson Forbes MD 07/17/2024 Orders Only 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 [...] of lung cancer from Last 3 Months Immunizations Name Administration Dates Next Due Influenza, Quadrivalent, Spl it, Intramuscular 07/09/2015 Influenza, Quadrivalent, Spl it, Preservative Free, Intramuscular 06/20/2022,07/20/2021,07/03/2020,07/08,07/07/2018 Influenza, Split 07/22/2011 Influenza, Trivalent, IM (MDV) 08/21/2014 Influenza, Unspecified 06/20/2024(Deferr ed: Patient Refused),07/18/2023(Deferred: Patient Refused),07/17/2023(Deferred: Patient Refused),06/21/2023(Deferred: Patient Refused),07/09/2017(Deferred: Patient Refused) Pneumococcal Conjugate Pcv20 06/20/2022 Pneumococcal Polysaccharide PPV23 12/17/2009 Surgical History Surgery Date Site/Laterality Comments CHOLECYSTECTOMY 10/09/1997 - 10/08/1998 Cholecystectomy OTHER SURGICAL HISTORY PVD: stents x 4 placed in 2004 and 2007 OTHER SURGICAL HISTORY 10/09/2003 - 10/08/2004 polypectomy for vocal cords BUNIONECTOMY 11/09/2016 - 12/06/2016 Right BUNIONECTOMY 02/06/2017 - 03/08/2017 Left MASTECTOMY MODIFIED RADICAL / SIMPLE / COMPLETE 10/09/2017 - 10/08/2018 Bilateral NEPHROURETERECTOMY 10/09/2023 - 10/08/2024 Left Medical History Medical History Date Comments 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 Peripheral vascular disease (HCC) Peripheral vascular disease; Comments: 2 in each iliac. 3 surgeries. last procedure 01/08/2008 Hx Other Medical vocal cord poly p; Comments: removed and benign. 2004 Hypercholesterolemia High choles terol; Comments: DNT 07/10/2014 - Hx Other Medical Allergies, seas onal; Comments: DNT 07/10/2014 - Asthma Asthma; Comments : DNT 07/10/2014 - Hx Other Medical migraines; Comm ents: DNT 07/10/2014 - Hx Other Medical PVD; Comments: DNT 07/10/2014 - Hx Other Medical Stent Placement Dysphagia Chronic rhinitis 05/01/2024 Family History Medical History Relation Name Comments Other Brother 1 everet Alive and well; Other Brother 2 olga Alive and well; Other Brother 3 gopal Alive and well; Hypertension Father Hypertension; Throat cancer Father Cancer -throat ; Cause of : Cancer -throat Brain cancer Father's Sister 1 fartun brain canc er; Lymphoma Father's Sister 2 earlee Lymphoma; Depression Mother Depression; Diabetes type I Mother Diabetes -Ty pe 1; Other Mother cataracts; Ovarian cancer Mother's Sister danica Diabetes Other Family history of Diabetes mellitus; Other Sister sanjuana Alive and well; Relation Name Status Comments Brother 1 everet Alive Brother 2 olga Alive Brother 3 gopal Alive Father Father's Sister 1 fartun Other Father's Sister 2 earlee Other Mother Alive Mother's Sister danica Other Sister sanjuana Alive Social History Tobacco Use Types Packs/Day Years Used Date Smoking Tobacco: Former Cigarettes 1 45 S tarted: 1979 Passive Smoke Exposure: Past Smokeless Tobacco: Never Tobacco Cessation:Counseling Given: Not Answered Alcohol Use Standard Drinks/Week Comments No 0 (1 standard drink = 0.6 oz pur e alcohol) [facility] Utilities Answer Date Recorded In the past 12 months has e [employer], gas, oil, or water [employer] threatened to shut off services in your [...] often do you attend chur ch or adventism services? More than 4 times per year 05/22/2024 Do you belong to any clubs o r organizations such as congregation groups, unions, fraternal or athletic groups, or [...] any time in the past 12 m [facility], were you homeless or living in a fci (including now)? 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 Sex Female 8:44 AM ASSIGNMENT DESK EDITOR Gender Identity Not on file Sexual Orientation Not on file Obstetrics History Para Term AB IAB SAB Ectopic Multiple Livin g Live Births 2 2 2 2 Date Outcome GA Total Labor Labor/2nd/3rd Weight Sex Type Anes PTL Ann A1 A5 Name Clin Term Term Last Filed Vital Signs Vital Sign Reading Time Taken Comments Blood Pressure 147/78 10/05/2024 4:29 PM ASSIGNMENT DESK EDITOR Pulse 53 10/05/2024 4:29 PM ASSIGNMENT DESK EDITOR Temperature 36.8 ??C (98.3 ??F) 10/05/2024 2:38 PM CS T Respiratory Rate 16 10/05/2024 4:29 PM ASSIGNMENT DESK EDITOR Oxygen Saturation 99% 10/05/2024 4:29 PM ASSIGNMENT DESK EDITOR Inhaled Oxygen Concentration - - Weight 63.5 kg (140 lb) 10/05/2024 2:40 PM ASSIGNMENT DESK EDITOR Height 154.9 cm (5' 1 ) 06/24/2024 8:16 AM CDT Body Mass Index 26.45 06/24/2024 8:16 AM CDT Plan of Treatment Upcoming Encounters Date Type Department Care Team (Late st Contact Info) Description 02/04/2025 9:30 AM CDT Hospital Encounter [facility] Center [address] [place] [address] Vic Gaines, DO [address] [address] 02/04/2025 9:30 AM CDT - 02/04/2025 10:00 AM CDT Surgery [facility] [address] [place] [address] Vic Gaines, DO [address] [address] COLONOSCOPY Scheduled Procedures Name Priority Associated Diagnoses Date/Ti me COLONOSCOPY Encounter for screening colonoscopy 02/04/2025 9:30 AM CDT Health Maintenance Due Date Last Done Comments DTaP/Tdap/Td Vaccine (1 - Tdap) 1975 Colon Cancer Screening-Colonoscopy 12/10/2019 12/09/2014, 12/09/2014, 12/09/2014 Cervical Cancer Screening 03/31/20242022, 01/21/2022, 06/11/2021, Additional history exists Covid-19 Vaccine ( season) 2024 07/09/2022, 10/31/2021, 02/16/2021, Additional history exists Regular Well Visit/Exam 18-64 06/21/2024 06/21/2023, 03/31/2023, 06/20/2022, Additional history exists Influenza Vaccine (#1) 2025 , 07/20/2021, 07/03/2020, Additional history exists Postponed from 06/09/2024 (Patient declined, but will receive in the future) Zoster Vaccine (1 of 2) 06/20/2025 Post poned from 1983 (Patient declined, but will receive in the future) Depression Screening 06/24/2025 06/24/2024, 06/21/2023, 06/20/2022, Additional history exists Colon Cancer Screening-CT Colonography Discontinued 12/09/2014, 12/09/2014, 12/09/2014 Colon Cancer Screening-DNA Stool Discontinued 12/09/2014, 12/09/2014, 12/09/2014 Colon Cancer Screening-FIT Discontinued 12/09, 12/09/2014, 12/09/2014 Colon Cancer Screening-Sigmoidoscopy Discontinued 12/09/2014, 12/09/2014, 12/09/2014 Hepatitis C Screening Completed 11/28/2015 Pneumococcal vaccine <65 Completed 06/20/2022, 12/07 Hepatitis B Screening Completed 06/24/2024 Medical Devices Implanted Type Area City Detective Device Identifier Shelf Expiration Date Model / Serial / Lot Daig Steven[employer] [id number] Angio-Seal Evolution 6fr .035in Guidewire Bypass Tube Suture - [id number] Implanted:Qty: 1 on 05/13/2021 by Phoenix Loredo MD at [facility] Other - see comments [employer] Steven 12/06/2021 [id number] / / [id number] [employer] [id number] Lifestream 8mm 37mm 80cm Balloon Expandable Low Profile Cover - [id number] Implanted:Qty: 1 on 05/13/2021 by Phoenix Loredo MD at [facility] Stent [employer] 02/05/2022 [id number] / / [id number] Description:Left Iliac Staple Bilatera l: Foot Procedures Procedure Name Priority Date/Time Associated Diagnosis Comments SCAN - LABS 10/08/2024 SCAN - RADIOLOGY/IMAGING 10/06/2024 EGFR STAT 10/05/2024 3:00 PM ASSIGNMENT DESK EDITOR DIFFERENTIAL AUTO STAT 10/05/2024 3:0 0 PM ASSIGNMENT DESK EDITOR CBC WITH AUTO DIFFERENTIAL STAT 10/05/2024 3:00 PM ASSIGNMENT DESK EDITOR COMPREHENSIVE METABOLIC PANEL STAT 10/05/2024 3:00 PM ASSIGNMENT DESK EDITOR D-DIMER, QUANTITATIVE STAT 10/05/2024 3:00 PM ASSIGNMENT DESK EDITOR SCAN - LABS 10/01/2024 SCAN - LABS [...] SERUM HEPATITIS PANEL Routine 11/28/2015 7:42 AM ASSIGNMENT DESK EDITOR COLONOSCOPY IMAGES 12/09/2014 from Last 3 Months or Most Recently Relevant to Health Maintenance Results * SCAN - LABS (10/08/2024) us Karson Forbes MD Final Res ult * SCAN - RADIOLOGY/IMAGING (10/06/2024) Anatomical Region Laterality Modality Other us Karson Forbes MD Final Res ult * (ABNORMAL) eGFR (10/05/2024 3:00 PM ASSIGNMENT DESK EDITOR) eGFR 47(L) >=60 mL/min/1. 73 m2 Comment: [...] last reviewed 2021. Blood 10/05/2024 3:00 PM ASSIGNMENT DESK EDITOR 10/05/2024 3:09 PM ASSIGNMENT DESK EDITOR us Courtney SHAFFER LAB BLOOD ORDERABLES Final Resu lt [facility] ([place] [facility]) 1 [facility] Department [place] [address] * Differential, auto (10/05/2024 3:00 PM ASSIGNMENT DESK EDITOR) Neutrophil abs 2.0 1.5 - 6.5 K/cumm [...] on 2018. Imm gran pct 0.8 % JAY I[facility]QUIER[facility] (ARTEMIO) Comment: Interpretive Data Percent cell count reference ranges are not reported, since discordance with absolute values may lead to misinterpretation of CBC data. Current Interpretive Data was last revised on 2018. Lymphocyte pct 49.0 % DEEPAK R FELECIA (ARTEMIO) Comment: Interpretive Data Percent cell count reference ranges are not reported, since discordance with absolute values may lead to misinterpretation of CBC data. Current Interpretive Data was last revised on 2018. Monocyte pct 10.5 % JAY IZQUIERDO (ARTEMIO) Comment: Interpretive Data Percent cell count reference ranges are not reported, since discordance with absolute values may lead to misinterpretation of CBC data. Current Interpretive Data was last revised on 2018. Eosinophil pct 0.6 % TOSHANE R FELECIA (ARTEMIO) Comment: Interpretive Data Percent cell count reference ranges are not reported, since discordance with absolute values may lead to misinterpretation of CBC data. Current Interpretive Data was last revised on 2018. Basophil pct 0.2 % JAY IZQUIERDO (ARTEMIO) Comment: Interpretive Data Percent cell count reference ranges are not reported, since discordance with absolute values may lead to misinterpretation of CBC data. Current Interpretive Data was last revised on 2018. Blood 10/05/2024 3:00 PM ASSIGNMENT DESK EDITOR 10/05/2024 3:09 PM ASSIGNMENT DESK EDITOR us Courtney SHAFFER LAB BLOOD ORDERABLES Final Resu lt JAY IZQUIERDO (ARTEMIO) 1 [facility] Department of Laboratories [place], [place] [id number] * (ABNORMAL) CBC with auto differential (10/05/2024 3:00 PM ASSIGNMENT DESK EDITOR) WBC 5.1 3.8 - 9.9 K/cumm Hgb 10.6(L) 11.9 - 15.5 g/dL [facility] (ARTEMIO) Hct 32.2(L) 35.6 - 45.5 % [facility] ([place]) Plt 100(L) 150 - 400 K/cumm [facility] ([place]) MPV 10.1 9.1 - 12.3 fL [facility] ([facility]) RBC 2.91(L) 3.90 - 5.20 M/cumm [facility] (ART[place]) MCV 110.7(H) 81.3 - 96.4 fL [facility] ([place]) MCH 36.4(H) 27.1 - 33.3 pg [facility] ([place]) MCHC 32.9 32.3 - 35.7 g/dL [facility] (ART[place]) RDW CV 21.8(H) 11.1 - 14.9 % [facility] (ART[place]) RDW SD 86.6(H) 35.7 - 48.1 fL [facility] ([facility] NRBC abs 0.00 0.00 - 0.01 K/cumm [facility] ([facility] Blood 10/05/2024 3:00 PM ASSIGNMENT DESK EDITOR 10/05/2024 3:09 PM ASSIGNMENT DESK EDITOR us Courtney SHAFFER LAB BLOOD ORDERABLES Final Resu lt [facility] (ART[place]) 1 [facility] Department [place] [address] * (ABNORMAL) D-dimer, quantitative (10/05/2024 3:00 PM ASSIGNMENT DESK EDITOR) D-Dimer 838(H) <=499 ng/mL FEU [facility] [...] 68, VTE cut-off 680 ng/ml FEU. References; Schlilia CHAWLA et al. Brit Med J. 2013;346:f2492. Rachel MCGARRY et al. Annals Int Med. 2015;163:701-11. Current interpretive data was last revised on 2019. Blood 10/05/2024 3:00 PM ASSIGNMENT DESK EDITOR 10/05/2024 3:09 PM ASSIGNMENT DESK EDITOR us Courtney SHAFFER LAB BLOOD ORDERABLES Final Resu lt [facility] (ARTEMIO) 1 [facility] Department [place] [address] * (ABNORMAL) Comprehensive metabolic panel (10/05/2024 3:00 PM ASSIGNMENT DESK EDITOR) Sodium 135 135 - 145 mmol/L Potassium, [...] [facility] (ARTEM[facility]) Blood 10/05/2024 3:00 PM ASSIGNMENT DESK EDITOR 10/05/2024 3:09 PM ASSIGNMENT DESK EDITOR Result [facility] Courtney Salgado PA LAB BLOOD ORDERABLES Final Resu lt [facility] (ARTEMIO) 1 [facility] Department [place] [address] * SCAN - LABS (10/01/2024) Result [facility] Karson Forbes MD Edited Re sult - [...] - Final * SCAN - LABS (09/12/2024) Karson Forbes MD Edited Re sult - [...] - Final * SCAN - LABS (08/07/2024) Result Samara Forbes MD Final Res ult * SCAN - LABS (07/31/2024) us Karson Forbes MD Edited Re sult - Final * SCAN - LABS (07/24/2024) Result [facility] us Karson Forbes MD Edited Re sult - Final * ThinPrep(R) Imaging Pap and HPV mRNA E6/E7 Reflex HPV 16,18/45 (03/31/2023 10:40 AM CDT) CLINICAL INFORMATION: [facility] Comment:None given LMP [facility] Comment:NONE GIVEN Previous Pap [facility] Comment:NONE GIVEN Prev. Bx [facility] Comment:NONE GIVEN SOURCE: [facility] Comment:Cervix Pap, specimen adequacy [facility] Comment: Satisfactory for evaluation. Endocervical/transformation zone component present. Age and/or menstrual status not provided HPV interp [facility] Comment:Negative for intraep ithelial lesion or malignancy. COMMENTS [facility] Comment: This Pap test has been evaluated with computer assisted technology. Deputy District Customs Director [facility] Comment: PCM, CT(ASCP) CT Screening Location: [place] [address] [place] [address] Comment [facility] Comment: EXPLANATORY NOTE: The Pap is a [...] High Risk E6/E7 Not Detected Not Detected [facility] Comment: Methodology: Technical Internship-Mediated Amplification This assay detects E6/E7 viral messenger RNA (mRNA) from 14 high-risk HPV types (16,18,31,33,35,39,45,51,52,56,58,59,66,68). Cervical sources are required for HPV testing. If a vaginal source from a patient who has had a total hysterectomy with removal of cervix was submitted, please contact the testing laboratory for alternative testing options. For additional information, please refer to http://education.[employer]/faq/YLB616k2 (This link if provided for information/ educational purposes only.) Swab 03/31/2023 10:4 0 AM CDT 04/01/2023 12:35 AM CDT Aylin Lundy MD LAB CYTOLOGY ORDERABLES Fin al Result [place] [address] [place] [address] [facility] [address] [place] [address] * Serum Hepatitis panel (11/28/2015 7:42 AM ASSIGNMENT DESK EDITOR) HAV ab, IgM Negative Negative HISTORIC AL RESULTS HBV core ab, IgM Negative Negative HISTORICAL RESULTS HBV surface ag Negative Negative HISTO RICAL RESULTS Comment:Test performed at [facility], [id number] [place] [address], [place]., [address] HCV ab Negative Negative HISTORICAL RESULTS Serum 11/28/2015 7:42 AM ASSIGNMENT DESK EDITOR Historical Provider LAB BLOOD ORDERABLES Ivette l Result HISTORICAL RESULTS * COLONOSCOPY IMAGES (12/09/2014) Anatomical Region Laterality Modality Other Narrative 12/09/2014 Ordered by an unspecified provider. us Historical Provider GI PROCEDURE ORDERABLES F inal Result from Last 3 Months or Most Recently Relevant to Health Maintenance Insurance [facility] Advance Directives For more information, please contact: [phone] * Full Code (Latest Code Status on [...] 9:26 AM 05/13/2021 4:57 PM Care Teams It Application Development Manager Relationship Specialty Start Date End Date Karson [place] [address] PCP - General Family Medicine 11/23/23 Phoenix Loredo MD Consulting Physician Cardiology 01/04/19 [place] [address] [place] [address] Show Operations Supervisor Obstetrics and Gynecology 04/19/21 [place] [address] [place] [address] Consulting Physician Urology 05/17/24 Ho Phan MD [address] [place] [address] Medical Oncologist/Natural Sciences Professor Hematology and Oncology 06/04/24
--- OUTSIDE RECORDS SUMMARY | 2024-10-13 04:04 | XMS_ITS | Encounter Summary ---
Author Organization [facility] Healthcare Address [address] [place] [address] Care Team Providers Care Tack Maker Name Role Phone Phoenix Loredo MD Unavailable [phone] Aylin Lundy MD Unavailable [phone] Karson Forbes MD Primary Care Provider [phone] Daniel Last MD Unavailable [phone] Ho Phan MD Unavailable [phone] Encounter Details Date Type Department Care Team (Late st Contact Info) Description 09/12/2024 Orders Only [facility] [facility] Information Management [address] [place] [address] Karson Forbes MD [address] [place] [address] Social History Tobacco Use Types Packs/Day Years Used Date Smoking Tobacco: Former Cigarettes 1 45 S tarted: 1979 Passive Smoke Exposure: Past Smokeless Tobacco: Never Alcohol Use Standard Drinks/Week Comments No 0 (1 standard drink = 0.6 oz pur e alcohol) [facility] Utilities Answer Date Recorded In the past 12 months has [employer], gas, oil, or water [employer] threatened to shut off services in your [...] How often do you attend chur or adventism services? More than 4 times per year 05/22/2024 Do you belong to any clubs o r organizations such as taoist groups, unions, fraternal or athletic groups, or [...] were you homeless or living in a alf (including now)? 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 Gender Identity Not on file Sexual Orientation Not on file documented as of this encounter Plan of Treatment Upcoming Encounters Date Type Department Care Team (Late st Contact Info) Description 02/04/2025 9:30 AM CDT Hospital Encounter [address] [address] Vic Gaines, DO 3 [facility] [address] [place] [address] 02/04/2025 9:30 AM CDT - 02/04/2025 10:00 AM CDT Surgery [address] [address] Vic Gaines, DO 3 [facility] [address] [place] [address] COLONOSCOPY Scheduled Procedures Name Priority Associated Diagnoses Date/Ti me COLONOSCOPY Encounter for screening colonoscopy 02/04/2025 9:30 AM CDT documented as of this encounter Procedures Procedure Name Priority Date/Time Associated Diagnosis Comments SCAN - LABS 09/12/2024 documented in this encounter Results * SCAN - LABS (09/12/2024) us Karson Forbes MD Edited Re sult - Final documented in this encounter Visit Diagnoses Not on filedocumented in this encounter Care Teams Tack Maker Relationship Specialty Start Date End Date Karson Fobres MD [address] [place] [address] PCP - General Family Medicine 11/23/23 Phoenix Loredo MD Consulting Physician Cardiology 01/04/19 [place] [address] [place] [address] Auto Mechanics Teacher Obstetrics and Gynecology 04/19/21 [place] [address] [place] [address] Consulting Physician Urology 05/17/24 Ho Phan MD [address] [place] [address] Medical Oncologist/Rpg Developer Hematology and Oncology 06/04/24 documented as of this encounter
--- OUTSIDE RECORDS SUMMARY | 2024-10-13 04:05 | XMS_ITS | Encounter Summary ---
Author Organization [facility] Healthcare Address [address] [place] [address] Care Team Providers Care Rainbow Trout Farm Manager Name Role Phone Phoenix Loredo MD Unavailable [phone] Aylin Lundy MD Unavailable [phone] Karson Forbes MD Primary Care Provider [phone] Daniel Last MD Unavailable [phone] Ho Phan MD Unavailable [phone] Encounter Details Date Type Department Care Team (Late st Contact Info) Description 06/17/2024 Documentation [facility] [address] [place] [address] Edwige Cruz, RN Social History Tobacco Use Types Packs/Day Years Used Date Smoking Tobacco: Former Cigarettes 1 45 S tarted: 1979 Passive Smoke Exposure: Past Smokeless Tobacco: Never Alcohol Use Standard Drinks/Week Comments No 0 (1 standard drink = 0.6 oz pur e alcohol) [facility] Utilities Answer Date Recorded In the past 12 months has [employer], gas, oil, or water company threatened to [...] often do you attend chur ch or hinduism services? More than 4 times per year 05/22/2024 Do you belong to any clubs o r organizations such as yazidi groups, unions, fraternal or athletic groups, or school groups? Yes 05/22/2024 How often do you attend meet ings of the clubs or organizations you belong to? More than 4 times per year 05/22/2024 Are you , , di vorced, , never , or living with a partner? 05/22/2024 AUDIT-C Answer Date Recorded Q1: How often do you have a drink containing alcohol? Never 05/21/2024 Q2: How many drinks containi ng alcohol do you have on a typical day when you are drinking? Patient does not drink Q3: How often do you have si x or more drinks on one occasion? Never 05/21/2024 Overall Financial Resource Strain (CARDIA) Answe r Date Recorded How hard is it for you to pa y for the very basics like food, housing, medical care, and heating? Not hard at all 05/22/2024 PHQ-2 Answer Date Recorded PHQ-2 Total Score (If total score is 3 or more points, staff should administer the PHQ-9) 0 06/21/2023 Hunger Vital Sign Answer Date Recorded Within [...] time in the past 12 m [facility], were you homeless or living in a correction (including now)? 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 Phan. Patient is aware. documented in this encounter Plan of Treatment Upcoming Encounters Date Type Department Care Team (Late st Contact Info) Description 02/04/2025 9:30 AM CDT Hospital Encounter [address] [address] Vic Gaines, DO 3 [facility] [address] [place] [address] 02/04/2025 9:30 AM CDT - 02/04/2025 10:00 AM CDT Surgery [address] [address] Vic Gaines, DO 3 [facility] [address] [place] [address] COLONOSCOPY Scheduled Procedures Name Priority Associated Diagnoses Date/Ti me COLONOSCOPY Encounter for screening colonoscopy 02/04/2025 9:30 AM CDT documented as of this encounter Visit Diagnoses Not on filedocumented in this encounter Care Teams Rainbow Trout Farm Manager Relationship Specialty Start Date End Date Karson Forbes MD [address] [place] [address] PCP - General Family Medicine 11/23/23 Phoenix Loredo MD Consulting Physician Cardiology 01/04/19 [place] [address] [place] [address] Attic Fans Mechanic Obstetrics and Gynecology 04/19/21 [place] [address] [place] [address] Consulting Physician Urology 05/17/24 Ho Phan MD [address] [facility] [place] [address] Medical Oncologist/Patcher Bowling Ball Hematology and Oncology 06/04/24 documented as of this encounter
--- OUTSIDE RECORDS SUMMARY | 2024-10-13 04:05 | XMS_ITS | Encounter Summary ---
Author Organization [facility] Healthcare Address [address] [place] [address] Care Team Providers Care Clerical Assigner Name Role Phone Phoenix Loredo MD Unavailable [phone] Aylin Lundy MD Unavailable [phone] Karson Forbes MD Primary Care Provider [phone] Daniel Last MD Unavailable [phone] Ho Phan MD Unavailable [phone] Encounter Details Date Type Department Care Team (Late st Contact Info) Description 07/31/2024 Orders Only [facility] [place] Health Information Management [address] [place] [address] Karson Forbes MD [address] [place] [address] Social History Tobacco Use Types Packs/Day Years Used Date Smoking Tobacco: Former Cigarettes 1 45 S tarted: 1979 Passive Smoke Exposure: Past Smokeless Tobacco: Never Alcohol Use Standard Drinks/Week Comments No 0 (1 standard drink = 0.6 oz pur e alcohol) [facility] Utilities Answer Date Recorded In the past 12 months has [employer], gas, oil, or water [employer] threatened to shut off services in your [...] How often do you attend chur or cheondoism services? More than 4 times per year 05/22/2024 Do you belong to any clubs o r organizations such as hinduism groups, unions, fraternal or athletic groups, or [...] were you homeless or living in a care home (including now)? 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 Gender Identity Not on file Sexual Orientation Not on file documented as of this encounter Plan of Treatment Upcoming Encounters Date Type Department Care Team (Late st Contact Info) Description 02/04/2025 9:30 AM CDT Hospital Encounter [address] [address] Vic Gaines, DO 3 [facility] [address] [place] [address] 02/04/2025 9:30 AM CDT - 02/04/2025 10:00 AM CDT Surgery [address] [address] Vic Gaines, DO 3 [facility] [address] [place] [address] COLONOSCOPY Scheduled Procedures Name Priority Associated Diagnoses Date/Ti me COLONOSCOPY Encounter for screening colonoscopy 02/04/2025 9:30 AM CDT documented as of this encounter Procedures Procedure Name Priority Date/Time Associated Diagnosis Comments SCAN - LABS 07/31/2024 documented in this encounter Results * SCAN - LABS (07/31/2024) us Karson Forbes MD Edited Re sult - Final documented in this encounter Visit Diagnoses Not on filedocumented in this encounter Care Teams Clerical Assigner Relationship Specialty Start Date End Date Karson Forbes MD [address] [place] [address] PCP - General Family Medicine 11/23/23 Phoenix Loredo MD Consulting Physician Cardiology 01/04/19 [place] [address] [place] [address] Assistant Field Hockey Coach Obstetrics and Gynecology 04/19/21 [place] [address] [place] [address] Consulting Physician Urology 05/17/24 Ho Phan MD [address] [place] [address] Medical Oncologist/Child Adolescent Psychiatrist Hematology and Oncology 06/04/24 documented as of this encounter
--- OUTSIDE RECORDS SUMMARY | 2024-10-13 04:05 | XMS_ITS | Encounter Summary ---
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) [C65.2] Procedures MD LAPAROSCOPY NEPHRECTOMY W/TOTAL URETERECTOMY Hand Assisted Laparoscopic Left Nephroureterectomy Referral ID Status Reason Start Date Expiration Date Visits Re quested Visits Authorized [id number] 1 1 Encounter Details Date Type Department Care Team (Latest Contact Info) Description 05/17/2024 8:24 AM CDT - 05/20/2024 11:24 AM CDT Hospital Encounter [facility] [address] [place] [address] [place] [id number] [place] [address] 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 Never 05/21/2024 Q2: How many drinks containi ng alcohol do you have on a typical day when you are drinking? Patient does not drink Q3: How often do you have si x or more drinks on one occasion? Never 05/21/2024 PHQ-2 Answer Date Recorded PHQ-2 Total Score (If total score is 3 or more points, staff should administer the PHQ-9) 0 06/21/2023 Personal Safety Answer Date Recorded Have you ever been in or are you currently in a harmful physical or emotional relationship or is someone making you feel afraid or unsafe? Denies 05/21/2024 Comments No Sex and Gender Information Value Date Recorded Sex Assigned at Not on file Legal Sex Female 8:44 AM COLLATOR HAND Gender Identity Not on file Sexual Orientation Not on file documented as of this encounter Last Filed Vital Signs Vital Sign Reading Time Taken Comments Blood Pressure 138/73 05/20/2024 7:00 AM CDT Pulse 88 05/20/2024 7:00 AM CDT Temperature 36.7 ??C (98 ??F) 05/20/2024 7:00 AM CDT Respiratory Rate 18 05/20/2024 7:00 AM CDT Oxygen Saturation 92% 05/20/2024 7:00 AM CDT Inhaled Oxygen Concentration - - Weight 62.8 kg (138 lb 7.2 oz) 05/17/2024 8:55 A M CDT Height 154.9 cm (5' 1 ) 05/17/2024 8:55 AM CDT Body Mass Index 26.16 05/17/2024 8:55 AM CDT documented in this encounter Discharge Summaries * Lilian Dexter NP - 05/20/2024 8:10 AM CDT Inpatient Discharge Summary BRIEF OVERVIEW Admitting Provider: Karlie Last MD Discharge Provider: Karlie Last MD Primary Care Physician at Discharge: Karson Forbes MD [phone] Admission Date: 05/17/2024 Discharge Date: 05/20/2024 Admission Location: [facility] Hospital Problems/Diagnoses: Principal Problem: 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 female with chief complaint of Left renal collecting system tumor. Hospital Course: This is a 59 y.o. 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 Patient tolerated the procedure well. Postoperatively patient was doing pretty well. The patientwas afebrile and vital signs were stable. The patient denied chest pain, shortness of breath, palpitation, or leg pain. The patient tolerated regular diet with no complaints of nausea or vomiting before discharge. The patient's pain was controlled well with oral pain medication. Patient was discharged with harris catheter x 1 week. The Harris catheter care and use of leg bag before discharge. The patient was encouraged to increase activity and use incentive spirometry. The patient was able to ambulate with a stable gait before discharge. The patient was discharged on the day 3 after surgery in a stable condition. Discharge instructionswere reviewed with the patient. Test Results Pending at Discharge: Pending Labs Order Current Status Surgical pathology In process Pending on discharge Operative Procedures Performed: Procedure(s): Hand Assisted Laparoscopic Left Nephroureterectomy Discharge Details Physical Exam at Discharge: Discharge Condition: stable Pulse: 88 Resp: 18 BP: 138/73 Temp: 36.7 ??C (98 ??F) Weight: 62.8 kg (138 lb 7.2 oz) Pertinent Exam Findings at Discharge: Discharge Disposition: Discharge to home or self care Code Status at Discharge: Full Discharge Instructions: Activity Instructions Activity order - May resume normal activities Post-Discharge Activity: Do not soak in a tub or pool for 2 weeks Post-Discharge Activity: Do not drive while taking narcotic pain medication Do not drive for 7 days. Post-Discharge Activity: May shower after dressing removed. May shower after dressing removed. Post-Discharge Activity: Normal activity as tolerated. Normal activity as tolerated. Diet Instructions Adult Discharge Diet Diet Type: Only clear liquids Begin with liquids and light food (Jello, soups, etc. Progress to your normal diet if you are not nauseated. NO ALCOHOLIC BEVERAGE FOR 24 HOURS.) Other Instructions A small amount of bright red blood is to be expected. Do NOT be alarmed. If you feel that the amount is excessive, call your doctor. Call provider for: persistent nausea or vomiting Call provider for: redness, tenderness, or signs of infection (pain, swelling, redness, odor or green/yellow discharge around incision site) Call provider for: severe uncontrolled pain Call provider for: temperature greater than 101F Call your doctor if the affected extremity becomes cold to touch, blue, tingly or numb, or if you have excessive swelling or pain. Lifting Restrictions (Specify) Maximum Weigth to Lift: 10 Pounds Discharge Medications: Current Medications TAKE these medications albuterol HFA 90 mcg/actuation inhaler Inhale 2 puffs every 6 (six) hours as needed for wheezing or shortness of breath Commonly known as: PROVENTIL HFA,VENTOLIN HFA,PROAIR HFA atorvastatin 40 mg tablet Take 1 tablet (40 mg total) by mouth every morning Commonly known as: LIPITOR clopidogreL 75 mg tablet Take 1 tablet (75 mg total) by mouth every morning Last dose 05/10/2024 Start taking it tomorrow 05/21/2024 Commonly known as: PLAVIX coenzyme Q10 200 mg capsule Take 1 capsule (200 mg total) by mouth every morning fluticasone propionate 50 mcg/actuation nasal spray Administer 1 spray into each nostril as needed for rhinitis Commonly known as: FLONASE HYDROcodone-acetaminophen 5-325 mg per tablet Take 1 tablet by mouth every 6 (six) hours as needed for pain For: pain Commonly known as: NORCO levoFLOXacin 500 mg tablet Take 1 tablet (500 mg total) by mouth daily for 5 days Commonly known as: LEVAQUIN metoprolol XL 50 mg extended release tablet Take 1 tablet (50 mg total) by mouth every morning Commonly known as: TOPROL-XL multivitamin tablet Take 1 tablet by mouth every morning PROBIOTIC (B. COAGULANS) ORAL Take by mouth every morning SUMAtriptan 50 mg tablet May repeat dose once in 2 hours if no relief. Do not exceed 2 doses in 24 hours. Commonly known as: IMITREX Outpatient Follow-Up: Future Appointments Date Time Provider Department Center 06/24/2024 8:30 AM Karson Forbes MD PCP [facility] 04/08/2025 7:30 AM [facility] 04/15/2025 8:00 AM Phoenix Loredo MD [facility] CAR 122 PSA 05/01/2025 9:30 AM Che Nair, FILM PROJECTOR OPERATOR [facility] 230 Specialty Contact Information for Follow-ups Karlie Last MD Specialty: Urology Relationship: Consulting Physician [id number] [place] [id number] Next Steps: Follow up Comments: Follow up with Dr. Last in 1 week Call the office for an appointment. Telephone - [phone] Questions: To provider: KARLIE LAST Home O2: documented in this encounter Discharge Instructions * Attachments The following attachments cannot be sent through Care Everywhere. * Harris Catheter Placement and Care (Discharge Care) (Nigerian) * How to Change a Catheter Drainage Bag (Discharge Care) (Nigerian) documented in this encounter Medications at Time of Discharge albuterol HFA (PROVENTIL HFA,VENTOLIN HFA,PROAIR HFA) 90 mcg/actuation inhalerIndication s:Centrilobular emphysema (HCC) Inhale 2 puffs every 6 (six) hours as needed for wheezing or shortness of breath 1 each 05/01/2024 5 atorvastatin (LIPITOR) 40 mg tablet Take 1 tablet (40 mg total) by mouth every morning Bacillus coagulans (PROBIOTIC, B. COAGULANS, ORAL) Take by mouth every morning coenzyme Q10 200 mg capsule Take 1 [...] in 24 hours. 9 tablet 3 06/21/2023 clopidogreL (PLAVIX) 75 mg tablet Take 1 tablet (75 mg total) by mouth every morning Last dose 05/10/2024 Start taking it tomorrow 05/21/2024 05/20/2024 4 HYDROcodone-aceta minophen (NORCO) 5-325 mg per tabletIndications :Pain Take 1 tablet by mouth every 6 (six) hours as needed for pain 20 tablet 05/17/2024 4 ketorolac (TORADOL) 10 mg tablet Take 1 tablet (10 mg total) by mouth every 6 (six) hours as needed 04/18/2024 4 levoFLOXacin (LEVAQUIN) 500 mg tablet Take 1 tablet (500 mg total) by mouth daily for 5 days 5 tablet 05/17/2024 4 documented as of this encounter Ordered Prescriptions Prescription Sig Dispense Quantity Refills Last Filled Start Date End Date clopidogreL (PLAVIX) 75 mg tablet Take 1 tablet (75 mg total) by mouth every morning Last dose 05/10/2024 Start taking it tomorrow 05/21/2024 05/20/2024 4 HYDROcodone-acetam inophen (NORCO) 5-325 mg per tabletIndications: Pain Take 1 tablet by mouth every 6 (six) hours as needed for pain 20 tablet 05/17/2024 4 levoFLOXacin (LEVAQUIN) 500 mg tablet Take 1 tablet (500 mg total) by mouth daily for 5 days 5 tablet 05/17/2024 4 documented in this encounter Discharge Disposition Disposition Code Departure Means Destination Comment s Discharge to home or self care documented in this encounter Progress Notes * Lilian Dexter, CRISTIANO - 05/20/2024 8:03 AM CDT GENERAL SURGERY PROGRESS NOTE Patient Name: Moshe Hartley Date of : 1965 Primary Physician: Karson Forbes MD Admission Date: 05/17/2024 Length of Stay: 3 Post-op day: 3 Days Post-Op Surgery Procedure: Procedure(s): Hand Assisted Laparoscopic Left Nephroureterectomy SUBJECTIVE Patient seen on AM rounds with Dr Last. Patient reports feeling much improved today, anxious to go home today. Patient up in chair. Remains on RA Reports pain is well controlled with norco po prn. No more nausea or heartburn symptoms. Not much PO intake yesterday. Abdomen soft, mildly tender. Harris catheter in place draining clear yellow urine. Abdominal surgical sites well approximated without erythema or drainage. Patient been ambulating. No acute events overnight and no new complaints this morning. REVIEW OF SYSTEMS Review of Systems Constitutional: Negative for chills and fever. Respiratory: Negative for shortness of breath. Cardiovascular: Negative for chest pain. Gastrointestinal: Positive for abdominal pain. Negative for heartburn, nausea and vomiting. INTERVAL HISTORY 05/17/2024: Hand Assisted Laparoscopic Left Nephroureterectomy by Karlie Last MD The patient was seen and examed with Karlie Last MD. OBJECTIVE Vitals Most Recent : Vitals: 05/20/24 0408 BP: 129/74 Pulse: 78 Resp: 18 Temp: 36.8 ??C (98.3 ??F) SpO2: 93% In & Out I/O last 2 completed shifts: In: 300 [P.O.:300] Out: 625 [Urine:625] No intake/output data recorded. Physical Exam Vitals and nursing note reviewed. Constitutional: Appearance: Normal appearance. HENT: Head: Normocephalic and atraumatic. Cardiovascular: Rate and Rhythm: Normal rate and regular rhythm. Pulses: Normal pulses. Pulmonary: Effort: Pulmonary effort is normal. Abdominal: General: There is no distension. Palpations: Abdomen is soft. Tenderness: There is no abdominal tenderness. Genitourinary: Comments: Harris in place draining clear yellow urine Musculoskeletal: General: Normal range of motion. Cervical back: Normal range of motion. Skin: General: Skin is warm and dry. Comments: Abdominal surgical sites well approximated with surgical glue without erythema or drainage Neurological: General: No focal deficit present. Mental Status: She is alert and oriented to person, place, and time. Psychiatric: Mood and Affect: Mood normal. Behavior: Behavior normal. Recent Labs Lab Units 05/20/24 0517 05/19/24 0525 05/18/24 0453 WBC K/cumm 10.4* 12.2* 12.4* RBC M/cumm 4.26 4.63 4.43 HEMOGLOBIN g/dL 13.0 14.2 13.7 HEMATOCRIT % 39.2 42.2 41.1 PLATELETS K/cumm 171 196 220 Recent Labs Lab Units 05/20/24 0517 05/19/24 0525 05/18/24 1136 05/18/24 0453 SODIUM mmol/L 139 141 144 137 POTASSIUM PLASMA mmol/L 4.5 4.4 5.0* 5.4* CHLORIDE mmol/L 109 100 106 105 CO2 mmol/L 20* 29 25 23 ANIONGAP mmol/L 10 12 13 9 GLUCOSE mg/dL 95 107 131 171 BUN SERUM mg/dL 11 9 9 8 CREATININE mg/dL 0.98 1.18* 1.18* 1.15* CALCIUM mg/dL 8.8 9.7 9.7 8.9 ALBUMIN g/dL 3.3* 3.7 -- 3.7 ALK PHOS Units/L 73 87 -- 83 ALT Units/L 15 19 -- 16 AST Units/L 19 22 -- 18 BILIRUBIN TOTAL mg/dL 0.3 0.4 -- 0.2 Imaging Studies No results found. 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 Follow up with Dr. Last at the end of this week for catheterremoval. - harris catheter /leg bag use education prior to discharge - pain control with norco po prn - advance diet as tolerating to regular - increase activity/ambulation - encourage use of IS - Nausea control with medications as needed - continue harris Hyperkalemia - resolved -monitor labs - avoid high K foods/drinks POA: HLD -continue home med A-fib/PVCs -stable - continue home med Will resume Plavix on Monday COPD/asthma/smoker -stable -continue home medications - Encourage use of IS GERD/hiatal hernia -stable -continue home med Care plan discussed with the patient VTE prophylaxis: Heparin sub q SCDs Lilian Dexter NP-C 05/20/2024 8:03 AM Surgical Home * Emily Carrillo MD - 05/19/2024 8:32 AM CDT Urologic Surgery Progress Note Encounter Date: 05/19/2024 Patient Name: Moshe Hartley Subjective: Issues with acid reflux overnight. Denies any chest pain. Still on O2 (patient is a smoker). She isbelching but no flatus Medications: See MAR- is on protonix Allergies: Allergies Allergen Reactions Adhesive Itching, Rash and Blisters Adhesive Tape-Silicones Itching, Rash and Blisters Other Itching, Rash and Blisters Metals Codeine Nausea only Povidone-Iodine Itching Vitals BP 132/77 (BP Location: Right arm, Patient Position: HOB 30 degrees) Pulse 89 Temp 37 ??C (98.6??F) (Oral) Resp 20 Ht 154.9 cm (5' 1 ) Wt 62.8 kg (138 lb 7.2 oz) LMP (LMP Unknown) [id number]% BMI 26.16 kg/m?? Height: 154.9 cm (5' 1 ) Weight: 62.8 kg (138 lb 7.2 oz) Intake/Output: Intake/Output Summary (Last 24 hours) at 05/19/2024 0832 Last data filed at 05/19/2024 0000 Gross per 24 hour Intake 400 ml Output 1475 ml Net -1075 ml Physical Examination: General: Patient is alert and in no acute distress. Head: Normocephalic, atraumatic. Nares are symmetric without nasal flaring or respiratory distress.No lip cyanosis. Eyes: Sclera anicteric with extraocular eye movements intact. Cardiovascular: Peripheral perfusion appears adequate. No digital clubbing or cyanosis present. Chest: Non-labored respirations. On supplemental O2. Neurological: No focal neurologic deficit. Psychiatric: Normal affect and mood. Skin: Normal coloration and turgor. Abdomen: mildly distended; minimal TTP. Incisions c/d/i Genitourinary: harris draining yellow urine Hematological/Immunological: No bleeding gums or jaundice. Laboratory: Wbc ct 12.2 Hgb 14.2 Cr 1.18 Imaging: No results found. I have personally reviewed available radiographic images, and if available, the radiology report(s). I have discussed the results of the clinical lab tests and radiographic images with the patient. Assessment: POD#2 s/p hand assist L nephroureterectomy Plan / Recommendations: - continue IV fluids; reg diet as tolerated - adding pepcid to protonix to help with GERD; no chest pain; states it is better when sitting up - wean O2 - OOB and ambulate - labs stable; will follow daily - continue harris; plan for harris education for discharge - heparin for DVT prophylaxis -------- Emily Carrillo MD [facility] [address] [place] [address], [address] [place] [address] [phone] office [phone] cell * Anne-Marie Arshad NP - 05/18/2024 8:00 AM CDT GENERAL SURGERY PROGRESS NOTE Patient Name: Moshe Hartley Date of : 1965 Primary Physician: Karson Forbes MD Admission Date: 05/17/2024 Length of Stay: 1 Post-op day: 1 Day Post-Op Surgery Procedure: Procedure(s): Hand Assisted Laparoscopic Left Nephroureterectomy SUBJECTIVE Patient seen on AM rounds with Dr Carrillo covering for Dr Last. Resting in bed. O2 on at 2 l per NC. Reports pain is well controlled with norco po prn. Received zofran x 1 for nausea, reports currently resolved. Tolerating diet. Denies flatus. Harris catheter in place draining clear yellow urine. Abdominal surgical sites well approximated without erythema or drainage. To increase ambulation. No acute events overnight and no new complaints this morning. REVIEW OF SYSTEMS Constitutional: Negative for chills and fever. Respiratory: Negative for shortness of breath. Cardiovascular: Negative for chest pain. INTERVAL HISTORY 05/17/2024: Hand Assisted Laparoscopic Left Nephroureterectomy by Karlie Last MD The patient was seen and examed with Dr Carrillo covering for Karlie Last MD. OBJECTIVE Vitals Most Recent : Vitals: 05/18/24 0433 BP: 135/62 Pulse: 59 Resp: 14 Temp: 36.6 ??C (97.9 ??F) SpO2: 99% In & Out I/O last 2 completed shifts: In: 3908 [P.O.:750; I.V.:3158] Out: 1360 [Urine:1310; Blood:50] No intake/output data recorded. Physical Exam Vitals and nursing note reviewed. Constitutional: Appearance: Normal appearance. HENT: Head: Normocephalic and atraumatic. Cardiovascular: Rate and Rhythm: Normal rate and regular rhythm. Pulses: Normal pulses. Pulmonary: Effort: Pulmonary effort is normal. Comments: O2 on @ 2 L per NC Abdominal: Palpations: Abdomen is soft. Genitourinary: Comments: Harris in place draining clear yellow urine Musculoskeletal: General: Normal range of motion. Cervical back: Normal range of motion. Skin: General: Skin is warm and dry. Comments: Abdominal surgical sites well approximated with surgical glue without erythema or drainage Neurological: General: No focal deficit present. Mental Status: She is alert and oriented to person, place, and time. Psychiatric: Mood and Affect: Mood normal. Behavior: Behavior normal. Recent Labs Lab Units 05/18/24 0453 05/14/24 1335 WBC K/cumm 12.4* 8.1 RBC M/cumm 4.43 4.57 HEMOGLOBIN g/dL 13.7 14.0 HEMATOCRIT % 41.1 43.1 PLATELETS K/cumm 220 239 Recent Labs Lab Units 05/18/24 0453 05/14/24 1456 SODIUM mmol/L 137 145 POTASSIUM PLASMA mmol/L 5.4* 4.6 CHLORIDE mmol/L 105 109 CO2 mmol/L 23 23 ANIONGAP mmol/L 9 13 GLUCOSE mg/dL 171 92 BUN SERUM mg/dL 8 8 CREATININE mg/dL 1.15* 0.80 CALCIUM mg/dL 8.9 9.3 ALBUMIN g/dL 3.7 -- ALK PHOS Units/L 83 -- ALT Units/L 16 -- AST Units/L 18 -- BILIRUBIN TOTAL mg/dL 0.2 -- Imaging Studies No results found. 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) s/p Procedure(s): Hand Assisted Laparoscopic Left Nephroureterectomy Plan: - pain control with norco po prn - advance diet as tolerating to regular -IVF to 50 cc/hour - increase activity/ambulation - encourage use of IS - Nausea control with medications as needed - continue harris, will go home with harris in place -harris catheter /leg bag use education prior to discharge Hyperkalemia -monitor labs - avoid high K foods/drinks POA: HLD -continue home med A-fib/PVCs -stable - continue home med COPD/asthma/smoker -stable -continue home medications GERD/hiatal hernia -stable -continue home med Care plan discussed with the patient VTE prophylaxis: Heparin sub q SCDs LUISITO Velazquez 05/18/2024 8:00 AM Surgical Home documented in this encounter H&P Notes * Karlie Last MD - 05/16/2024 9:25 PM CDT Urology H&P Subjective Patient is a 59 y.o. female with chief complaint of Left renal collecting system tumor. HPI: The patient is a 59 year old female who presents for evaluation of a renal mass.This pleasant Caucasion woman is referred by her primary care physician for evaluation of a solid enhancing lesion (2.7cm left collecting system mass) in the left kidney. The mass was originally seen on a CT abd/pelviswithout contrast (03/11/24) performed for non-urological reasons. This was initially discovered in 2021 . The patient reports associated gross hematuria, but denies flank pain. after a gradual onset. As yet, there is no evidence for metastatic disease. Note for Renal Mass : CT IVP (03/11/24) suggests 2.7cm collecting system mass extends into renal parenchyma. s/p Left URS (04/18/24) by Dr. Houston at [place] reveals upper,mid and lower pole papillary lesions with scant papillations in the renal pelvis and nodularity in mid pole. Past Medical History: Diagnosis Date Asthma Asthma; Comments: DNT 07/10/2014 - Chronic rhinitis 05/01/2024 Dysphagia Gastroesophageal reflux disease GERD HX OTHER MEDICAL 01-[employer] HX OTHER MEDICAL 02-OIL DISTRIBUTOR HX OTHER MEDICAL 2009 capal tunnel release [...] 11/2016 BUNIONECTOMY Left 02/2017 CHOLECYSTECTOMY 1998 Cholecystectomy CHOLECYSTECTOMY Cholecystectomy MASTECTOMY MODIFIED RADICAL / SIMPLE / COMPLETE Bilateral 2018 OTHER SURGICAL HISTORY Peripheral vascular disease: STENTS OTHER SURGICAL HISTORY PVD: stents x 4 placed in 2004 and 2007 OTHER SURGICAL HISTORY 2003 polypectomy for vocal cords HOME MEDICATIONS : albuterol HFA (PROVENTIL HFA,VENTOLIN HFA,PROAIR HFA) 90 mcg/actuation inhaler aspirin 81 mg enteric coated tablet atorvastatin (LIPITOR) 40 mg tablet Bacillus coagulans (PROBIOTIC, B. COAGULANS, ORAL) clopidogreL (PLAVIX) 75 mg tablet coenzyme Q10 200 mg capsule fluticasone propionate (FLONASE) 50 mcg/actuation nasal spray metoprolol XL (TOPROL-XL) 50 mg extended release tablet multivitamin tablet SUMAtriptan (IMITREX) 50 mg tablet Allergies Allergen Reactions Adhesive Itching, Rash and Blisters Adhesive Tape-Silicones Itching, Rash and Blisters Other Itching, Rash and Blisters Metals Codeine Nausea only Povidone-Iodine Itching Social History Tobacco Use Smoking status: Every Day Current packs/day: 0.75 Average packs/day: 1 pack/day for 44.6 years (44.5 ttl pk-yrs) Types: Cigarettes Start date: 1979 Passive exposure: Past Smokeless tobacco: Never Substance and Sexual Activity Drug use: Yes Types: Tobacco Sexual activity: Defer Alcohol Use: Not At Risk (05/14/2024) AUDIT-C Frequency of Alcohol Consumption: Never Average Number of Drinks: Patient does not drink Frequency of Binge Drinking: Never Family History Problem Relation Age of Onset [...] Diabetes mellitus; Ovarian cancer Mother's Sister 55 Review of Systems: Review of Systems Constitutional: Negative. Respiratory: Negative. Cardiovascular: Negative. Psychiatric/Behavioral: Negative. Vitals: 24hr Min/Max: No data recorded Most Recent : There were no vitals filed for this visit. No intake/output data recorded. No intake/output data recorded. Objective Physical Exam: Physical Exam Constitutional: Appearance: Normal appearance. Cardiovascular: Rate and Rhythm: Normal rate. Pulmonary: Effort: Pulmonary effort is normal. Breath sounds: Normal breath sounds. Neurological: General: No focal deficit present. Mental Status: She is alert and oriented to person, place, and time. Lab/Radiology/Diagnostic Review: Laboratory review: Lab results in the last 24 hours: No results found for this or any previous visit (from the past 24 hour(s)). 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 s/p Left URS (04/18/24) by Dr. Houston at [place] reveals upper,mid and lower pole papillary lesions with scant papillations in the renal pelvis and nodularity in mid pole. Plan Hand assisted laparoscopic left nephroureterectomy documented in this encounter Miscellaneous Notes * Plan of Care - Emily Vizcarra RN - 05/20/2024 7:38 AM CDT The patient's IV infiltrated and she lost IV access. Multiple attempts by several people were made to reestablish IV access but were unsuccessful. The patient stated that she no longer wanted to be stuck for IV placement and that she did not want IV fluids to run as ordered. Patient refused new IV to be placed. * Plan of Care - Fuentes Villatoro RN - 05/19/2024 6:50 PM CDT Goals: Clinical Goals for the Shift: VSS, pain control, safety, rest Problem: Discharge Planning Goal: Understanding discharge needs will improve Outcome: Progressing Problem: Medication Goal: Satisfaction with pain management medication regimen will improve Outcome: Progressing Problem: Coping Goal: Ability to cope will improve Outcome: Progressing Problem: Health Behavior Goal: Identification of resources available to assist in meeting health care needs will improve Outcome: Progressing Problem: Respiratory Goal: Ability to maintain a clear airway will improve Outcome: Progressing Problem: Musculoskeletal Goal: Return ADL status to a safe level of function Outcome: Progressing Problem: Gastrointestinal Goal: Minimal or absence of nausea and vomiting Outcome: Progressing Summary: Up sitting n lani,c/o nausea belching,no flatus, pt OOB and ambulated multiple times in the hallway. Remain on 02 2LNC. Harris intact draining yellow color urine. Anti reflex given as order with effective result,vss,no distress noted at this time. Call light within reach. * Plan of Care - Emily Vizcarra RN - 05/19/2024 6:21 AM CDT Problem: Lack of Knowledge Goal: Ability to develop a pain control plan will improve Outcome: Progressing Problem: Sensory Goal: Ability to identify factors that increase pain levels will improve while working to decrease the patient's pain levels Outcome: Progressing Problem: Respiratory Goal: Ability to maintain a clear airway will improve Outcome: Progressing Problem: Skin/Tissue Integrity Goal: Incisions, wounds, or drain sites healing without S/S of infection Outcome: Progressing Problem: Gastrointestinal Goal: Minimal or absence of nausea and vomiting Outcome: Progressing Problem: Genitourinary Goal: Absence of urinary retention Outcome: Progressing Goal: Urinary catheter remains patent Outcome: Progressing Problem: Discharge Planning Goal: Understanding discharge needs will improve Outcome: Ongoing Problem: Medication Goal: Satisfaction with pain management medication regimen will improve Outcome: Ongoing Problem: Coping Goal: Ability to cope will improve Outcome: Ongoing Problem: Health Behavior Goal: Identification of resources available to assist in meeting health care needs will improve Outcome: Ongoing Problem: Neurosensory Goal: Achieves maximal functionality and self care Outcome: Ongoing Problem: Cardiovascular Goal: Absence of cardiac dysrhythmias or at baseline Outcome: Ongoing Problem: Musculoskeletal Goal: Return ADL status to a safe level of function Outcome: Ongoing Goal: Ability to perform activities at highest level will improve Outcome: Ongoing Goals: Clinical Goals for the Shift: VSS, pain control, safety, rest Summary: The patient has reported indigestion throughout the shift- Protonix, Tums, and Maalox given for treatment but the patient continues to experience heartburn and indigestion. She still has notbeen able to pass gas and reported nausea at the beginning of the shift- zofran given for treatment. * Plan of Care - Jose De Jesus Brown RN - 05/18/2024 4:18 PM CDT Problem: Discharge Planning Goal: Understanding discharge needs will improve Outcome: Progressing Problem: Lack of Knowledge Goal: Ability to develop a pain control plan will improve Outcome: Progressing Problem: Medication Goal: Satisfaction with pain management medication regimen will improve Outcome: Progressing Problem: Sensory Goal: Ability to identify factors that increase pain levels will improve while working to decrease the patient's pain levels Outcome: Progressing Problem: Coping Goal: Ability to cope will improve Outcome: Progressing Problem: Health Behavior Goal: Identification of resources available to assist in meeting health care needs will improve Outcome: Progressing Problem: Neurosensory Goal: Achieves maximal functionality and self care Outcome: Progressing Problem: Respiratory Goal: Ability to maintain a clear airway will improve Outcome: Progressing Problem: Cardiovascular Goal: Absence of cardiac dysrhythmias or at baseline Outcome: Progressing Problem: Skin/Tissue Integrity Goal: Incisions, wounds, or drain sites healing without S/S of infection Outcome: Progressing Problem: Musculoskeletal Goal: Return ADL status to a safe level of function Outcome: Progressing Goal: Ability to perform activities at highest level will improve Outcome: Progressing Problem: Gastrointestinal Goal: Minimal or absence of nausea and vomiting Outcome: Progressing Problem: Genitourinary Goal: Absence of urinary retention Outcome: Progressing Goal: Urinary catheter remains patent Outcome: Progressing Goals: Clinical Goals for the Shift: VSS, pain control, safety, rest Summary: Vital signs stable. Pt pain is currently not controled but in contact with the [employer] to see about adjusting meds. Complaining mostly of heart burn that is not controlled with TUMS. Got her up today and her O2 dropped and pt complained of dizziness. Encouraged use of incentive spirometer. Pt sat up most of the day in her chair. Pt resting in her room will continue to monitor. * Plan of Care - Darline Patel RN - 05/18/2024 4:42 AM CDT Problem: Discharge Planning Goal: Understanding discharge needs will improve Outcome: Ongoing Problem: Lack of Knowledge Goal: Ability to develop a pain control plan will improve Outcome: Ongoing Problem: Medication Goal: Satisfaction with pain management medication regimen will improve Outcome: Ongoing Problem: Sensory Goal: Ability to identify factors that increase pain levels will improve while working to decrease the patient's pain levels Outcome: Ongoing Problem: Coping Goal: Ability to cope will improve Outcome: Ongoing Problem: Health Behavior Goal: Identification of resources available to assist in meeting health care needs will improve Outcome: Ongoing Problem: Neurosensory Goal: Achieves maximal functionality and self care Outcome: Ongoing Problem: Respiratory Goal: Ability to maintain a clear airway will improve Outcome: Ongoing Problem: Cardiovascular Goal: Absence of cardiac dysrhythmias or at baseline Outcome: Ongoing Problem: Skin/Tissue Integrity Goal: Incisions, wounds, or drain sites healing without S/S of infection Outcome: Ongoing Problem: Musculoskeletal Goal: Return ADL status to a safe level of function Outcome: Ongoing Goal: Ability to perform activities at highest level will improve Outcome: Ongoing Problem: Gastrointestinal Goal: Minimal or absence of nausea and vomiting Outcome: Ongoing Problem: Genitourinary Goal: Absence of urinary retention Outcome: Ongoing Goal: Urinary catheter remains patent Outcome: Ongoing Goals: Clinical Goals for the Shift: VSS, manage pain and nausea, monitor UOP. Summary: Nursing to Nursing Communication CRISTINA: Expected Discharge Date Expected Discharge Date May 19, 2024 DC Transport barriers: No PT/OT orders: No CM anticipated level of care: Mobility Barriers (i.e patient refusal, surgical restrictions, safety concerns, etc.): Lines/Drains: Peripheral IV 05/17/24 18 G Left;Posterior Hand (Active) Urethral Catheter Double-lumen;Non-latex (Active) Surgical Site 05/17/24 Left Abdomen Trocar Sites x 2, 1 long incision (Active) Last BM: Last BM Date: 05/16/24 Medical Barriers: IV medications Incomplete Orders/Imaging/Consults: Significant events over the last shift: VSS, pain controlled, no nausea this shift, premedicated with zofran when given norco. Tolerating some food, requesting regular diet for breakfast. IVF and lidocaine infusing. 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 Patient was placed in supine position. Her genitalia was prepped with iodine solution, draped in sterile fashion. Flexible cystoscopy was carried out and the right ureteral stent was identified, grasped with a grasper and removed without difficulty. A Harris catheter then was placed. Patient then was positioned in the lateral decubitus position with the right side up. Table was flexed. Patient was secured to the table with silk tape. His abdomen was prepped with iodine solution, draped in sterile fashion. A 6 cm periumbilical incision was made down to subcu tissue through anterior rectus fascia, posterior rectus fascia into the peritoneum. [employer] hand GelPort then was placed. In the midclavicular line approximately 5 cm superior to the GelPort a 1 cm incision was made and a 12 mm dilating trocar was placed. Approximately 12 cm inferior to this another 1 cm incision was made and a 12mm dilating trocar was placed. With a hand in the GelPort and a Harmonic Scalpel in the upper trocar and a camera in the lower trocar, the left colon was reflected medially. This then exposed the renal hilum nicely. The renal artery and vein were identified and both taken with 2 Endo RATNA staplers. The upper pole attachmentswere also taken with an Endo RATNA stapler. The lateral attachments were taken down with a Harmonic Scalpel. The left ureter then was traced down over the iliac vessels down to the bladder hiatus. The ureter was taken all the waydown to the bladder hiatus and stapled with the Endo-RATNA stapler. The entire specimen then was removed through the hand port incision. Tisseel fibrin glue and Surgicel were placed over the renal hilum. There was very minimal bleeding. The hand port incision was closed with an 0 looped PDS and the subcu of the hand port incision and the trocar sites were closed with 3- 0 Vicryl and then the skin was approximated using 4-0 Monocryl intracuticular with Dermabond. The Pt was then repositioned in dorsal lithotomy. Her genitalia was prepped and draped in sterile fashion. Using a resectoscope the left intramural ureter was incised with an Ohrandi knife over an 8 dilator back to the staple line. Thebladder was unremarkable no lesions. The base was then fulgerated with a roller ball. A harris cath was placed. Patient tolerated this procedure very well and was taken to the recovery room in very stable condition. Incision type: Hand port Estimated Blood Loss: 50cc Specimens: Order Name Source Comment Collection Info Order Time BASIC METABOLIC PANEL 05/14/2024 1:35 PM HEMOGLOBIN A1C 05/14/2024 1:35 PM TYPE AND SCREEN 05/14/2024 1:35 PM Is this test being ordered in advance for a procedure? Yes Expected date of procedure: 05/17/2024 Has the patient been transfused in the past 3 months? No Has the patient been in the past 3 months? No CBC WITH AUTO DIFFERENTIAL 05/14/2024 1:35 PM B CHECK SAMPLE 05/17/2024 8:33 AM SURGICAL PATHOLOGY Kidney, total nephrectomy Placed in Formalin in OR Pathology at end of case Collected By: Karlie Last MD 05/17/2024 1:52 PM Complications: none Condition on Discharge from the operating room was stable Karlie Last MD Date: 05/17/2024 Time: 1:58 PM documented in this encounter Plan of Treatment Upcoming Encounters Date Type Department Care Team (Late st Contact Info) Description 02/04/2025 9:30 AM CDT Hospital Encounter [address] [address] Vic Gaines, DO [address] [address] 02/04/2025 9:30 AM CDT - 02/04/2025 10:00 AM CDT Surgery [address] [address] Vic Gaines, DO 3 [facility] [address] [place] [id number] COLONOSCOPY Scheduled Procedures Name Priority Associated Diagnoses Date/Ti me COLONOSCOPY Encounter for screening colonoscopy 02/04/2025 9:30 AM CDT documented as of this encounter Procedures Procedure Name Priority Date/Time Associated Diagnosis Comments EGFR Routine 05/20/2024 5:17 AM CDT CBC WITHOUT DIFFERENTIAL Routine 024 5:17 AM CDT COMPREHENSIVE METABOLIC PANEL Routine 05/20/2024 5:17 AM CDT EGFR Routine 05/19/2024 5:25 AM CDT CBC WITHOUT DIFFERENTIAL Routine 024 5:25 AM CDT COMPREHENSIVE METABOLIC PANEL Routine 05/19/2024 5:25 AM CDT COVID-19 CORONAVIRUS RNA STAT 024 10:01 PM CDT EGFR Timed 05/18/2024 11:36 AM CDT BASIC METABOLIC PANEL Timed 05/18/2024 11:36 AM CDT EGFR Routine 05/18/2024 4:53 AM CDT CBC WITHOUT DIFFERENTIAL Routine 024 4:53 AM CDT COMPREHENSIVE METABOLIC PANEL Routine 05/18/2024 4:53 AM CDT SURGICAL PATHOLOGY Routine 05/17/2024 1: 45 PM CDT 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 73 m2 Comment: Interpretive Data [...] interpretive data was last reviewed 2021. Blood 05/20/2024 5:17 AM CDT 05/20/2024 5:28 AM CDT us Karlie Last MD LAB BLOOD ORDERABLES Final Resu lt [facility] [address] Department [place] [address] * (ABNORMAL) CBC without differential (05/20/2024 5:17 AM CDT) WBC 10.4(H) 3.8 - 9.9 K/cumm Hgb 13.0 11.9 - 15.5 g/dL [facility] Hct 39.2 35.6 - 45.5 % [facility] Plt 171 150 - 400 K/cumm [facility] MPV 10.1 9.1 - 12.3 fL [facility] RBC 4.26 3.90 - 5.20 M/cumm [facility] MCV 92.0 81.3 - 96.4 fL [facility] MCH 30.5 27.1 - 33.3 pg [facility] MCHC 33.2 32.3 - 35.7 g/dL [facility] RDW CV 13.2 11.1 - 14.9 % [facility] RDW SD 44.6 35.7 - 48.1 fL [facility] NRBC abs 0.00 0.00 - 0.01 K/cumm [facility] Blood 05/20/2024 5:17 AM CDT 05/20/2024 5:28 AM CDT us Karlie Last MD LAB BLOOD ORDERABLES Final Resu lt [facility] [address] Department [place] [address] * (ABNORMAL) Comprehensive metabolic panel (05/20/2024 5:17 AM CDT) Sodium 139 135 - 145 mmol/L Potassium, pl 4.5 3.3 - 4.9 mmol/L [facility] Chloride 109 97 - 110 mmol/L [facility] CO2 20(L) 22 - 32 mmol/L [facility] Anion gap 10 2 - 15 mmol/L [facility] BUN 11 6 - 25 mg/dL [facility] Creatinine 0.98 0.60 - 1.10 mg/dL [facility] Glucose 95 70 - 199 mg/dL [facility] Comment: Interpretive Data Fasting glucose >/= 126 [...] interpretive data was last revised 2022. Calcium 8.8 8.5 - 10.3 mg/dL [facility] Bilirubin, total 0.3 0.1 - 1.2 mg/dL [facility] Protein, pl 5.9(L) 6.5 - 8.5 g/dL [facility] Albumin 3.3(L) 3.5 - 5.0 g/dL [facility] Alk phos 73 40 - 130 Units/L [facility] ALT 15 7 - 45 Units/L [facility] AST 19 10 - 45 Units/L [facility] Blood 05/20/2024 5:17 AM CDT 05/20/2024 5:28 AM CDT Karlie Last MD LAB BLOOD ORDERABLES Final Resu lt [facility] [address] Department [place] [address] * (ABNORMAL) eGFR (05/19/2024 5:25 AM CDT) eGFR 53(L) >=60 mL/min/1. 73 m2 Comment: Interpretive Data [...] interpretive data was last reviewed 2021. Blood 05/19/2024 5:25 AM CDT 05/19/2024 7:55 AM CDT Karlie Last MD LAB BLOOD ORDERABLES Final Resu lt Performing Organization Address [facility] Co de Phone Number [facility] [address] Department [email or web address] [place], [place] [id number] * (ABNORMAL) CBC without differential (05/19/2024 5:25 AM CDT) WBC 12.2(H) 3.8 - 9.9 K/cumm Hgb 14.2 11.9 - 15.5 g/dL [facility] Hct 42.2 35.6 - 45.5 % [facility] Plt 196 150 - 400 K/cumm [facility] MPV 10.7 9.1 - 12.3 fL [facility] RBC 4.63 3.90 - 5.20 M/cumm [facility] MCV 91.1 81.3 - 96.4 fL [facility] MCH 30.7 27.1 - 33.3 pg [facility] MCHC 33.6 32.3 - 35.7 g/dL [facility] RDW CV 13.2 11.1 - 14.9 % [facility] RDW SD 44.7 35.7 - 48.1 fL [facility] NRBC abs 0.00 0.00 - 0.01 K/cumm [facility] Blood 05/19/2024 5:25 AM CDT 05/19/2024 7:57 AM CDT Karlie Last MD LAB BLOOD ORDERABLES Final Resu lt Performing Organization Address City/[facility]/ZIP Co de Phone Number [facility] [address] [email or web address] [address] * (ABNORMAL) Comprehensive metabolic panel (05/19/2024 5:25 AM CDT) Sodium 141 135 - 145 mmol/L Potassium, pl 4.4 3.3 - 4.9 mmol/L [facility] Chloride 100 97 - 110 mmol/L [facility] CO2 29 22 - 32 mmol/L [facility] Anion gap 12 2 - 15 mmol/L [facility] BUN 9 6 - 25 mg/dL [facility] Creatinine 1.18(H) 0.60 - 1.10 mg/dL [facility] Glucose 107 70 - 199 mg/dL [facility] Comment: Interpretive Data Fasting glucose >/= 126 [...] interpretive data was last revised 2022. Calcium 9.7 8.5 - 10.3 mg/dL [facility] Bilirubin, total 0.4 0.1 - 1.2 mg/dL [facility] Protein, pl 6.7 6.5 - 8.5 g/dL [facility] Albumin 3.7 3.5 - 5.0 g/dL [facility] Alk phos 87 40 - 130 Units/L [facility] ALT 19 7 - 45 Units/L [facility] AST 22 10 - 45 Units/L [facility] Comment:Slightly Hemolyzed S pecimen Blood 05/19/2024 5:25 AM CDT 05/19/2024 7:55 AM CDT us Karlie Last MD LAB BLOOD ORDERABLES Final Resu lt [facility] [address] Department [place] [address] * COVID-19 Coronavirus RNA Nasopharyngeal (05/18/2024 10:01 PM CDT) COVID-19 RNA Negative Negative Nasopharyngeal 05/18/2024 10 :01 PM CDT 05/18/2024 10:09 PM CDT us Karlie Last MD LAB MICROBIOLOGY - GENERAL [place] [place] Final Result Performing Organization Address [facility] Co de Phone Number [facility] [address] Department [place] [address] * (ABNORMAL) eGFR (05/18/2024 11:36 AM CDT) eGFR 53(L) >=60 mL/min/1. 73 m2 Comment: Interpretive Data [...] interpretive data was last reviewed 2021. Blood 05/18/2024 11:3 6 AM CDT 05/18/2024 11:36 AM CDT us Anne-Marie Arshad NP LAB BLOOD ORDERABLES Fi nal Result Performing Organization Address [facility] Co de Phone Number [facility] [address] Department [place] [address] * (ABNORMAL) Basic metabolic panel (05/18/2024 11:36 AM CDT) [facility] Sodium 144 135 - 145 mmol/L Potassium, pl 5.0(H) 3.3 - 4.9 mmol/L [facility] Chloride 106 97 - 110 mmol/L [facility] CO2 25 22 - 32 mmol/L [facility] Anion gap 13 2 - 15 mmol/L [facility] BUN 9 6 - 25 mg/dL [facility] Creatinine 1.18(H) 0.60 - 1.10 mg/dL [facility] Glucose 131 70 - 199 mg/dL [facility] Comment: Interpretive Data Fasting glucose >/= 126 [...] interpretive data was last revised 2022. Calcium 9.7 8.5 - 10.3 mg/dL [facility] Blood 05/18/2024 11:3 6 AM CDT 05/18/2024 11:36 AM CDT us Anne-Marie Arshad NP LAB BLOOD ORDERABLES Fi nal Result [facility] [address] Department [place] [address] * (ABNORMAL) eGFR (05/18/2024 4:53 AM CDT) [facility] eGFR 55(L) >=60 mL/min/1. 73 m2 Comment: Interpretive Data [...] interpretive data was last reviewed 2021. Blood 05/18/2024 4:53 AM CDT 05/18/2024 5:07 AM CDT us Karlie Last MD LAB BLOOD ORDERABLES Final Resu lt [facility] [address] Department [place] [address] * (ABNORMAL) CBC without differential (05/18/2024 4:53 AM CDT) WBC 12.4(H) 3.8 - 9.9 K/cumm Hgb 13.7 11.9 - 15.5 g/dL [facility] Hct 41.1 35.6 - 45.5 % [facility] Plt 220 150 - 400 K/cumm [facility] MPV 9.9 9.1 - 12.3 fL [facility] RBC 4.43 3.90 - 5.20 M/cumm [facility] MCV 92.8 81.3 - 96.4 fL [facility] MCH 30.9 27.1 - 33.3 pg [facility] MCHC 33.3 32.3 - 35.7 g/dL [facility] RDW CV 13.2 11.1 - 14.9 % [facility] RDW SD 45.0 35.7 - 48.1 fL [facility] NRBC abs 0.00 0.00 - 0.01 K/cumm [facility] Blood 05/18/2024 4:53 AM CDT 05/18/2024 5:07 AM CDT us Karlie Last MD LAB BLOOD ORDERABLES Final Resu lt [facility] [address] Department [place] [address] * (ABNORMAL) Comprehensive metabolic panel (05/18/2024 4:53 AM CDT) Sodium 137 135 - 145 mmol/L Potassium, pl 5.4(H) 3.3 - 4.9 mmol/L [facility] Chloride 105 97 - 110 mmol/L [facility] CO2 23 22 - 32 mmol/L [facility] Anion gap 9 2 - 15 mmol/L [facility] BUN 8 6 - 25 mg/dL [facility] Creatinine 1.15(H) 0.60 - 1.10 mg/dL [facility] Glucose 171 70 - 199 mg/dL [facility] Comment: Interpretive Data Fasting glucose >/= 126 [...] interpretive data was last revised 2022. Calcium 8.9 8.5 - 10.3 mg/dL [facility] Bilirubin, total 0.2 0.1 - 1.2 mg/dL [facility] Protein, pl 5.9(L) 6.5 - 8.5 g/dL [facility] Albumin 3.7 3.5 - 5.0 g/dL [facility] Alk phos 83 40 - 130 Units/L [facility] ALT 16 7 - 45 Units/L [facility] AST 18 10 - 45 Units/L [facility] Blood 05/18/2024 4:53 AM CDT 05/18/2024 5:07 AM CDT us Karlie Last MD LAB BLOOD ORDERABLES Final Resu lt [facility] [address] Department [place] [address] * Surgical pathology (05/17/2024 1:45 PM CDT) Tissue (Kidney, total nephrectomy) 05/17/2024 1:45 PM CDT Comment:Placed in Formalin i n OR Pathology at end of case Narrative PATHOLOGY [facility] - 05/20/2024 2:50 PM CDT [address] ??[id number] Tele: ?? Didi Zamora MD - Assistant Secretary Note to Patients: This report may contain a detailed description of human tissue sent by a health care provider to the laboratory for pathologic evaluation. The content of this report is essential for diagnosis and may provide important critical findings. This information may be unfamiliar to patients to review without a medical professional present. It is advised that the patient review this report in the presence of a health care provider who can answer questions and explain the details. SURGICAL PATHOLOGY REPORT Patient Name: ??MOSHE HARTLEY Address: ??[address] [place] [address] ??[id number] Gender: ??F : ??1965 (Age: 59) Service: ??Surgery Location: ??[id number], ?? Hospital #: ??[id number] Patient Type: ??[facility] Accession #: ? [id number] Taken: ? 05/17/2024 Received ? 05/17/2024 Reported: ? 05/20/2024 Physician(s): ? Cas Nath M.D. DIAGNOSIS: Kidney and ureter, left, hand assisted laparoscopic nephroureterectomy: ? 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 - Surgical margins are negative for carcinoma ? - No evidence of metastatic carcinoma in one lymph node ? - See cancer case summary [facility]05/20/2024 14:50 Examining Pathologist: John Gomez MD, PhD Report Reviewed and Electronically Signed By ??John Gomez MD, PhD SPECIMEN TYPE: A: LEFT KIDNEY AND URETER CLINICAL IMPRESSION AND HISTORY: 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 GROSS DESCRIPTION: Received in formalin labeled with MOSHE HARTLEY and left kidney and ureter is a 347 gram left nephroureterectomy specimen, including kidney (9.7 x 6.3 x 6.2 cm) and surrounding perirenal fat measuring in thickness from 1.1 cm to 6.9 cm. ??There is no adrenal gland ??Extending from the renal pelvis is a ureter (18.3 x 0.5 cm), renal vein (1.1 x 1.1 cm) and renal artery (0.4 x 0.2 cm). ??Specimen is marked with Silver nitrate. ??In the lower pole is a 2.3 x 2.2 x 1.9 cm friable pink-whitten lesion involving the calices. ??It is located approximately 3.9 cm from the vascular margins. ??Grossly the lesion does not extend into the adjacent renal cortex. ??The lesion does not invade into the perirenal or perihilar fat. ??The lesion does not involve the ureter, renal pelvis, renal vein and renal artery. ??Renal cortex adjacent to the mass is dull pink whitten. ??There is a possible 5.4 x 2 cm area of capsular hemorrhage at the lower pole located 2.5 cm from the lesion. ??The remainder of the renal cortex is whitten-brown with a well-defined cortical medullary junction. ??The pelvis and calyces are covered by smooth, glistening mucosa. ??Sections of the ureter show a patent lumen with no gross lesions. ??There are no gross lymph nodes. Janitor Helper sections are submitted as follows: ??A1 - Ureter margin, A2 - Renal artery and renal vein margin, A3-A7 - Entire lesion of calyx, A8-A9 - Perihilar fat closest to lesion, A10 - Pelvis, A11-A13 - Ureter submitted sequentially from distal to proximal, A14-A16 - Pale renal cortex adjacent to lean lesion, A17 - Unremarkable kidney and multiple possible lymph nodes, A18-A19 - Area of subcapsular hemorrhage at lower pole ?? 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 ??The ureteral and vascular margins are negative for carcinoma. ??Carcinoma in situ involves other sections of the ureter. ??Carcinoma is confined to the kidney and ureter. ??One lymph node is identified and not involved by carcinoma. ?Report name: ??URETER, RENAL PELVIS: Resection SPECIMEN ? Procedure: ??Nephroureterectomy ? Specimen Laterality: ??Left TUMOR ? Tumor Site: ??Ureter, Renal pelvis, Kidney ? Tumor Size: ??Greatest Dimension (Centimeters) - 2.3 cm ? Histologic Type: ??Urothelial carcinoma, invasive (conventional) ? Histologic Grade: ??High-grade ? Tumor Extent: ??Invades beyond muscularis into periureteral fat or peripelvic fat or renal parenchyma ? Lymphatic and / or Vascular Invasion: ??Present ? Tumor Configuration: ??Papillary MARGINS ? Margin Status for Invasive Carcinoma: ??All margins negative for invasive carcinoma ? Closest Margin(s) to Invasive Carcinoma: ??Vascular ? Distance from Invasive Carcinoma to Closest Margin: ??39 mm ? Margin Status for Carcinoma in Situ / Noninvasive Papillary Urothelial Carcinoma: ??All margins negative for carcinoma in situ / noninvasive papillary urothelial carcinoma REGIONAL LYMPH NODES ? Regional Lymph Node Status: ??All regional lymph nodes negative for tumor ? Number of Lymph Nodes Examined: ??1 pTNM CLASSIFICATION (AJCC 8th Edition) ? Reporting of pT, pN, and (when applicable) pM categories is based on information available to the pathologist at the time the report is issued. As per the AJCC (Chapter 1, 8th Ed.) it is the managing physician's responsibility to establish the final pathologic stage based upon all pertinent information, including but potentially not limited to this pathology report. ? pT Category: ??pT3 ? pN Category: ??pN0 ADDITIONAL FINDINGS ? Associated Epithelial Lesions: ??Ureteral Carcinoma in situ ? Pathologic Findings in Ipsilateral Nonneoplastic Renal Tissue: ??Inflammation (type) - Chronic ? CAP VERSION: Ureter and Renal Pelvis 2.3.0.0 Clerical Data Follows A; 19890 A, URETER; 60578 REPORT IMAGES AND/OR SCANNED DOCUMENTS ONLY VIEWABLE IN PDF FORMAT The immunohistochemical test(s) cited in this report, if any, was developed and its performance characteristics determined by [facility] Pathology Department. ??It has not been cleared or approved by the U.S. Food and Drug Administration. ??The FDA has determined that such clearance or approval is not necessary. ??This test is used for clinical purposes. ??It should not be regarded as investigational or for research. ??[facility] is certified under the Clinical Laboratory Improvement Amendments of 1988 (CLIA) as qualified to perform high complexity testing. ??Immunostains were performed on formalin-fixed paraffin embedded tissue using a polymer diaminobenzidine chromogen detection system. Antibodies used may include clone SP1 (rabbit monoclonal, estrogen receptor), clone 1E2 (rabbit monoclonal progesterone receptor), Ki-67 (rabbit monoclonal, 30-9), CD117 (rabbit polyclonal, c-kit), and anti-Her-2/vick (4B5) (rabbit monoclonal primary antibody). 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 Transitional cell carcinoma of renal pelvis, unspecified laterality (HCC) Encounter for screening colonoscopy documented in this encounter Admitting Diagnoses Diagnosis 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) Transitional cell carcinoma of renal pelvis, unspecified laterality (HCC) documented in this encounter Administered Medications Inactive Administered Medications - up to 3 most recent administrations Medication Order MAR Action Action Date Dose Rate Site acetaminophen (TYLENOL) tablet 1,000 mg 1,000 mg, oral, Once, On Mon05/17/24 at 0915, For 1 dose, Pre-Op, Indications: Pre-Emptive AnalgesiaIndications:Pre-Emptive Analgesia Given 05/17/2024 8:57 AM CDT 1,000 mg albuterol HFA (PROVENTIL HFA,VENTOLIN HFA,PROAIR HFA) 90 mcg/actuation inhaler 2 puff 2 puff, inhalation, Every 6 hours PRN (respite care provider), wheezing, shortness of breath, Starting on Mon05/17/24 at 1720 aluminum-magnesium hydroxide-simethicone (MAALOX) 40-40-4 mg/mL oral suspension 30 mL 30 mL, oral, Every 4 hours PRN, heartburn, Starting on 05/18/24 at 1622 Given 05/19/2024 6:45 AM CDT 30 mL Given 05/19/2024 2:45 AM CDT 30 mL Given 05/18/2024 10:30 PM CDT 30 mL calcium carbonate (TUMS) chewable tablet 500 mg 500 mg (200 mg of elemental calcium), oral, 3 times daily PRN, heartburn, Starting on 05/18/24 at 1347 Given 05/19/2024 2:00 AM CDT 500 mg Given 05/18/2024 9:53 PM CDT 500 mg Given 05/18/2024 1:54 PM CDT 500 mg dextrose 5% and sodium chloride 0.45% infusion (premix) 50 mL/hr, intravenous, Continuous, Starting on Mon05/17/24 at 1800 Rate/Dose Change 05/18/2024 9:32 AM CDT 50 mL/hr 50 mL/hr New Bag 05/18/2024 3:50 AM CDT 100 mL/hr 100 mL/hr New Bag 05/17/2024 5:39 PM CDT 100 mL/hr 100 mL/hr dimenhyDRINATE (DRAMAMINE) tablet 25 mg 25 mg, oral, Once, On Mon05/17/24 at 0915, For 1 dose, Pre-Op, Indications: Prevention of Nausea and VomitingIndications:Preventi on of Nausea and Vomiting Given 05/17/2024 8:57 AM CDT 25 mg famotidine (PEPCID) injection 20 mg 20 mg, intravenous, Administer over 2 Minutes, Every 24 hours, First dose on Mon05/19/24 at 0915 Given 05/19/2024 8:40 AM CDT 20 mg gabapentin (NEURONTIN) capsule 300 mg 300 mg, oral, Once, On Mon05/17/24 at 0915, For 1 dose, Pre-Op, Indications: Pre-Emptive AnalgesiaIndications:Pre-Emp tive Analgesia Given 05/17/2024 8:57 AM CDT 300 mg guaiFENesin ER (MUCINEX) extended release tablet 600 mg 600 mg, oral, Once, On Mon05/18/24 at 2015, For 1 dose, Do not crush, chew, cut, dissolve, open or otherwise manipulate tablet/capsule. Given 05/18/2024 7:50 PM CDT 600 mg heparin 5,000 unit/mL injection 5,000 Units 5,000 Units, subcutaneous, Every 12 hours scheduled, First dose on Mon05/17/24 at 2100, Indications: Deep Vein Thrombosis PreventionIndications:Deep Vein Thrombosis Prevention Given 05/20/2024 8:46 AM CDT 5,000 Units Left Outer Thigh Given 05/19/2024 8:52 PM CDT 5,000 Units L eft Lower Abdomen Given 05/19/2024 8:40 AM CDT 5,000 Units L eft Upper Abdomen HYDROcodone-acetaminophen (NORCO) 5-325 mg per tablet 1 tablet 1 tablet, oral, Every 4 hours PRN, 1st line for pain, Starting on Mon05/17/24 at 1716, Indications: PainIndications:Pain Given 05/18/2024 3:00 PM CDT 1 tablet Given 05/18/2024 5:58 AM CDT 1 tablet Given 05/17/2024 10:51 PM CDT 1 tablet HYDROmorphone (DILAUDID) injection 0.2 mg 0.2 mg, intravenous, Administer over 2 Minutes, Every 10 min PRN, 1st line for pain, Starting on Mon05/17/24 at 1522, For 10 doses, Phase I, Switch to 2nd line analgesic order if pain is uncontrolled or increasing after 1 dose. Notify Anesthesiologist if total PACU dose reaches 2 mg and pain score 5/10 or more., Indications: PainIndications:Pain Given 05/17/2024 3:42 PM CDT 0.2 mg HYDROmorphone (DILAUDID) injection 0.4 mg 0.4 mg, intravenous, Administer over 2 Minutes, Every 10 min PRN, 2nd line for pain, Starting on Mon05/17/24 at 1522, For 5 doses, Phase I, May administer 10 mintes after 1st dose of 1st line analgesic agent for uncontrolled or increasing pain. Revert to 1st line dose if POSS of 3. Notify Anesthesiologist if total PACU dose reaches 2 mg and pain score 5/10 or more., Indications: PainIndications:Pain Given 05/17/2024 4:39 PM CDT 0.4 mg Given 05/17/2024 4:15 PM CDT 0.4 mg Lactated Ringer's (LR) infusion 30 mL/hr, intravenous, Continuous, Starting on Mon05/17/24 at 0915, Pre-Op New Bag 05/17/2024 2:29 PM CDT 30 mL/hr Rate/Dose Verify 05/17/2024 11:35 AM CDT 30 mL/ hr New Bag 05/17/2024 8:57 AM CDT 30 mL/hr 30 mL/hr levoFLOXacin (LEVAQUIN) tablet 500 mg 500 mg, oral, Daily (early AM), First dose on 05/18/24 at 0600, Give 2 hrs before or 2 hrs after MVI, antacids, or other products containing sucralfate, magnesium, aluminum, iron, or zinc. May be taken without regard to meals., Indications: Urinary Tract/Genitourinary InfectionIndications:Urinary Tract/Genitourinary Infection Given 05/20/2024 4:15 AM CDT 500 mg Given 05/19/2024 5:54 AM CDT 500 mg Given 05/18/2024 5:50 AM CDT 500 mg lidocaine in dextrose 5% 2 g/250 mL (8 mg/mL) infusion (premix) 1.5 mg/kg/hr ? 47.8 kg [place] weight (8.9625 mL/hr, rounded to 8.96 mL/hr), 8 mg/mL, intravenous, Continuous, Starting on Mon05/17/24 at 1600, Until 05/19/24 at 0331, Phase I & Post-op Floor, Indications: Pain, Call MD for symptoms of toxicity (ringing in ears, metallic taste, somnolence, numb lips) or lidocaine level greater than 5. For all inpatients, discontinue the drip when the bag has completed, or 30 minutes before planned discharge time. For all outpatients, discontinue the drip 60 minutes after arrival to post-op. Consider giving oral narcotics to the patient per post-op order set. , RoutineIndications:Pain Rate/Dose Verify 05/17/2024 3:32 PM CDT 1.5 mg/kg/hr 8.96 mL/hr metoprolol XL (TOPROL-XL) extended release tablet 50 mg 50 mg, oral, Every morning, First dose on 05/18/24 at 0900, Tablets that are scored may be split, but do not crush, chew, dissolve, open or otherwise manipulate tablet/capsule. Given 05/20/2024 8:46 AM CDT 50 mg Given 05/19/2024 8:40 AM CDT 50 mg Given 05/18/2024 8:26 AM CDT 50 mg ondansetron (ZOFRAN) injection 4 mg 4 mg, intravenous, Administer over 2 Minutes, Once as needed, nausea, vomiting, Starting on Mon05/17/24 at 1522, For 1 dose, Phase I, Proceed to haloperidol if more than 8 mg of ondansetron have been given within the last 6 hours., Indications: Prevention of Post-Operative Nausea and VomitingIndications:Prevention of Post-Operative Nausea and Vomiting Given 05/17/2024 3:41 PM CDT 4 mg ondansetron (ZOFRAN) injection 4 mg 4 mg, intravenous, Administer over 2 Minutes, Every 6 hours PRN, nausea, vomiting, if not tolerating PO, Starting on Mon05/17/24 at 1716, Indications: nausea and vomitingIndications:nausea and vomiting Given 05/19/2024 2:07 PM CDT 4 mg Given 05/18/2024 7:42 PM CDT 4 mg Given 05/18/2024 5:58 AM CDT 4 mg ondansetron ODT (ZOFRAN-ODT) disintegrating tablet 4 mg 4 mg, oral, Every 6 hours PRN, nausea, vomiting, Starting on Mon05/17/24 at 1716, Indications: nausea and vomitingIndications:nausea and vomiting Given 05/18/2024 12:10 PM CDT [address] (PROTONIX) extended release tablet 40 mg 40 mg, oral, Daily, First dose on Mon05/19/24 at 0900, Do not crush, chew, cut, dissolve, open or otherwise manipulate tablet/capsule., Indications: Other (complete free text reason below), IndigestionIndications:Other (complete free text reason below),Indigestion Given 05/20/2024 8:46 AM CDT 40 mg Given 05/19/2024 8:40 AM CDT [address] (PROTONIX) extended release tablet 40 mg 40 mg, oral, Once, On Mon05/18/24 at 2015, For 1 dose, Do not crush, chew, cut, dissolve, open or otherwise manipulate tablet/capsule., Indications: Other (complete free text reason below), IndigestionIndicatio ns:Other (complete free text reason below),Indigestion Given 05/18/2024 7:42 PM CDT 40 mg scopolamine patch 72 hour 1 patch 1 patch, transdermal, Administer over 72 Hours, Once, On Mon05/17/24 at 0945, For 1 dose, Pre-Op Medication Applied 05/17/2024 9:20 AM CDT 1 patch Behind Left Ear sodium chloride 0.9% infusion 50 mL/hr, intravenous, Continuous, Starting on 05/18/24 at 1300 New Bag 05/19/2024 2:48 AM CDT 50 mL/hr 50 mL/hr New Bag 05/18/2024 1:09 PM CDT 50 mL/hr 50 mL/hr documented in this encounter Discontinued Medications Medication Sig Discontinue Reason Start Date End Da te clopidogreL (PLAVIX) 75 mg tablet Take 1 tablet (75 mg total) by mouth every morning Last dose 05/10/2024 05/20/2024 aspirin 81 mg enteric coated tablet Take 1 tablet (81 mg total) by mouth every morning Last dose 05/10/2024 Stop Taking at Discharge 05/20/2024 documented as of this encounter Active and Recently Administered Medications Times are shown in CDT. Scheduled Medication Order 05/18/2024 05/19/2024 05/20/2024 famotidine (PEPCID) injection 20 mg 20 mg, intravenous, Administer over 2 Minutes, Every 24 hours, First dose on Mon05/19/24 at 0915 0840 (Given - Provider: Fuentes Villatoro RN) 0847 (Not Given - Provider: Kathy Chavez, GAGE - Reason: Loss of IV access) guaiFENesin ER (MUCINEX) extended release tablet 600 mg (COMPLETED) 600 mg, oral, Once, On 05/18/24 at 2015, For 1 dose, Do not crush, chew, cut, dissolve, open or otherwise manipulate tablet/capsule. 1950 (Given - Provider: Emily Vizcarra RN) heparin 5,000 unit/mL injection 5,000 Units 5,000 Units, subcutaneous, Every 12 hours scheduled, First dose on Mon05/17/24 at 2100, Indications: Deep Vein Thrombosis Prevention 0826 (Given - Provider: Jose De Jesus Brown RN)194 (Given - Provider: Emily Vizcarra RN) 0840 (Given - Provider: Fuentes Villatoro, GAGE)2051 (Given - Provider: Emily Vizcarra, GAGE) 0846 (Given - Provider: Kathy Chavez RN) levoFLOXacin (LEVAQUIN) tablet 500 mg 500 mg, oral, Daily (early AM), First dose on 05/18/24 at 0600, Give 2 hrs before or 2 hrs after MVI, antacids, or other products containing sucralfate, magnesium, aluminum, iron, or zinc. May be taken without regard to meals., Indications: Urinary Tract/Genitourinary Infection 0550 (Given - Provider: Darline Patel, GAGE) 0554 (Given - Provider: Emily Vizcarra, GAGE) 0415 (Given - Provider: Emily Vizcarra RN) metoprolol XL (TOPROL-XL) extended release tablet 50 mg 50 mg, oral, Every morning, First dose on 05/18/24 at 0900, Tablets that are scored may be split, but do not crush, chew, dissolve, open or otherwise manipulate tablet/capsule. 0826 (Given - Provider: Jose De Jesus Brown RN) 0840 (Given - Provider: Fuentes Villatoro RN) 0846 (Given - Provider: Kathy Chavez, GAGE) pantoprazole DR (PROTONIX) extended release tablet 40 mg 40 mg, oral, Daily, First dose on Mon05/19/24 at 0900, Do not crush, chew, cut, dissolve, open or otherwise manipulate tablet/capsule., Indications: Other (complete free text reason below), Indigestion 0840 (Given - Provider: Fuentes Villatoro RN) 0846 (Given - Provider: Kathy Chavez, GAGE) pantoprazole DR (PROTONIX) extended release tablet 40 mg (COMPLETED) 40 mg, oral, Once, On 05/18/24 at 2014, For 1 dose, Do not crush, chew, cut, dissolve, open or otherwise manipulate tablet/capsule., Indications: Other (complete free text reason below), Indigestion 1941 (Given - Provider: Emily Vizcarra RN) Continuous Medication Order 05/18/2024 05/19/2024 05/20/2024 dextrose 5% and sodium chloride 0.45% infusion (premix) (CANCELED) 50 mL/hr, intravenous, Continuous, Starting on Mon05/17/24 at 1800 0350 (New Bag - Provider: Darline Patel RN)0932 (Rate/Dose Change - Provider: Jose De Jesus Brown, GAGE)1309 (Stopped - Provider: Jose De Jesus Brown RN) sodium chloride 0.9% infusion 50 mL/hr, intravenous, Continuous, Starting on 05/18/24 at 1300 1309 (New Bag - Provider: Jose De Jesus Brown, GAGE) 0248 (New Bag - Provider: Emily Vizcarra, GAGE) 1529 (Due: Stopped) PRN Medication Order 05/18/2024 05/19/2024 05/20/2024 albuterol HFA (PROVENTIL HFA,VENTOLIN HFA,PROAIR HFA) 90 mcg/actuation inhaler 2 puff 2 puff, inhalation, Every 6 hours PRN (respite care provider), wheezing, shortness of breath, Starting on Mon05/17/24 at 1720 aluminum-magnesium hydroxide-simethicone (MAALOX) 40-40-4 mg/mL oral suspension 30 mL 30 mL, oral, Every 4 hours PRN, heartburn, Starting on 05/18/24 at 1622 1829 (Given - Provider: Jose De Jesus Brown, GAGE)2230 (Given - Provider: Emily Vizcarra RN) 0245 (Given - Provider: Emily Vizcarra RN)0645 (Given - Provider: Emily Vizcarra RN) calcium carbonate (TUMS) chewable tablet 500 mg 500 mg (200 mg of elemental calcium), oral, 3 times daily PRN, heartburn, Starting on 05/18/24 at 1347 1354 (Given - Provider: Jose De Jesus Brown, GAGE)2153 (Given - Provider: Emily Vizcarra, GAGE) 0200 (Given - Provider: Emily Vizcarra, GAGE)0955 (Not Given - Provider: Fuentes Villatoro RN - Reason: Patient/family refused) docusate sodium (COLACE) capsule 100 mg 100 mg, oral, 2 times daily PRN, constipation, Starting on Mon05/17/24 at 1716, Indications: constipation HYDROcodone-acetaminophen (NORCO) 5-325 mg per tablet 1 tablet 1 tablet, oral, Every 4 hours PRN, 1st line for pain, Starting on Mon05/17/24 at 1716, Indications: Pain 0558 (Given - Provider: Darline Patel, GAGE)1500 (Given - Provider: Jose De Jesus Brown, RN) morphine injection 2 mg 2 mg, intravenous, Administer over 4 Minutes, Every 3 hours PRN, 1st line for pain, Starting on Mon05/17/24 at 1716, Indications: Pain ondansetron (ZOFRAN) injection 4 mg(Linked Group 1) 4 mg, intravenous, Administer over 2 Minutes, Every 6 hours PRN, nausea, vomiting, if not tolerating PO, Starting on Mon05/17/24 at 1716, Indications: nausea and vomiting 0558 (Given - Provider: Darline Patel RN)1210 (See Alternative - Provider: Jose De Jesus Brown, GAGE)194 (Given - Provider: Emily Vizcarra, GAGE) 1407 (Given - Provider: Fuentes Villatoro, GAGE) ondansetron ODT (ZOFRAN-ODT) disintegrating tablet 4 mg(Linked Group 1) 4 mg, oral, Every 6 hours PRN, nausea, vomiting, Starting on Mon05/17/24 at 1716, Indications: nausea and vomiting 0558 (See Alternative - Provider: Darline Patel RN)1210 (Given - Provider: Jose De Jesus Brown, GAGE)194 (See Alternative - Provider: Emily Vizcarra, GAGE) 1407 (See Alternative - Provider: Fuentes Villatoro, GAGE) Linked Groups Order Group 1: ondansetron ODT (ZOFRAN-ODT) disintegrating tablet 4 mgJump to med 4 mg, oral, Every 6 hours PRN, nausea, vomiting, Starting on Mon05/17/24 at 1716, Indications: nausea and vomiting Or ondansetron (ZOFRAN) injection 4 mgJump to med 4 mg, intravenous, Administer over 2 Minutes, Every 6 hours PRN, nausea, vomiting, if not tolerating PO, Starting on Mon05/17/24 at 1716, Indications: nausea and vomiting documented in this encounter Orders Medications Ordered That Darrel ht Not Have Been Administered Count Last Ordered Date First Ordered Date albuterol 2.5 mg /3 mL (0.08 3 %) nebulizer solution 2.5 mg 1 05/17/2024 albuterol HFA (PROVENTIL HFA ,VENTOLIN HFA,PROAIR HFA) 90 mcg/actuation inhaler 2 puff 2 05/17/2024 Carrier Fluids for Secondary Infusion - 0.9% Sodium Chloride 1 05/17/2024 ceFAZolin (ANCEF) 2,000 mg/2 0 mL in sterile water (premix) 2,000 mg 1 05/17/2024 dextrose (D10W) 10% bolus 250 mL 2 05/17/20 dextrose (GLUTOSE) 40 % gel 15 g 1 05/17/20 diphenhydrAMINE (BENADRYL) 5 0 mg/mL injection 12.5 mg 05/17/2024 docusate sodium (COLACE) capsule 100 mg 1 0 05/17/2024 fentaNYL (SUBLIMAZE) preserv ative free injection 25 mcg 05/17/2024 fentaNYL (SUBLIMAZE) preserv ative free injection 50 mcg 05/17/2024 glucagon injection 1 mg 05/17/2024 haloperidol (HALDOL) injection 1 mg 1 05/17 heparin 5,000 unit/mL inject ion 5,000 Units 05/17/2024 insulin lispro (HumaLOG, ADM ELOG) 100 unit/mL injection 0-5 Units 05/17/2024 labetaloL (NORMODYNE,TRANDAT E) injection 5 mg 1 05/17/2024 lidocaine (PF) (XYLOCAINE) 1 0 mg/mL (1 %) preservative free injection 2-10 mg 05/17/2024 meperidine (DEMEROL) preserv ative free injection 12.5 mg 1 05/17/2024 morphine injection 2 mg 1 05/17/2024 naloxone (NARCAN) 0.4 mg/mL injection 0.04-0.4 mg 05/17/2024 oxyCODONE (ROXICODONE) tablet 5 mg 2023 racepinephrine (ASTHMANEFRIN ) 2.25 % nebulizer solution 0.5 mL 1 05/17/2024 sodium chloride 0.9% flush 0.5-20 mL 06/2024 sodium chloride 0.9% irrigation 1 sterile water irrigation 1 05/17/2024 Diet Count Last Ordered Date First Orde red Date ADULT DISCHARGE DIET 1 05/17/2024 Nursing Count Last Ordered Date First Orde red Date DISCHARGE ACTIVITY 4 05/20/2024 DISCHARGE CALL PROVIDER 4 05/20/2024 WEIGHT RESTRICTIONS 1 05/20/2024 ACTIVITY 1 05/17/2024 DISCHARGE INSTRUCTIONS 3 05/17/2024 HARRIS CATHETER - DISCONTINUE 2 05/17/2024 FOLLOW UP WITH ESTABLISHED PROVIDER 1 05/17 INSERT HARRIS CATHETER 2 05/17/2024 WEIGH PATIENT 1 05/17/2024 Admission Count Last Ordered Date First Orde red Date ADMIT TO INPATIENT 1 05/17/2024 Transfer Count Last Ordered Date First Orde red Date TRANSFER PATIENT TO NEW UNIT 1 05/17/2024 Discharge Count Last Ordered Date First Orde red Date DISCHARGE PATIENT 1 05/20/2024 documented in this encounter Care Teams Sound Engineer Relationship Specialty Start Date End Date Karson Forbes MD [address] [place] [address] PCP - General Family Medicine 11/23/23 Phoenix Loredo MD Consulting Physician Cardiology 01/04/19 [place] [address] [place] [address] [facility] 04/19/21 [place] [address] [place] [address] Consulting Physician Urology 05/17/24 documented as of this encounter
--- OUTSIDE RECORDS SUMMARY | 2024-10-13 04:05 | XMS_ITS | Encounter Summary ---
Author Organization [facility] Address [address] [place] [address] Phone Care Team Providers Care Oracle Erp Architect Name Role Phone Phoenix Loredo MD Unavailable [phone] Aylin Lundy MD Unavailable [phone] Karson Forbes MD Primary Care Provider [phone] Daniel Last MD Unavailable [phone] Ho Phan MD Unavailable [phone] Encounter Details Date Type Department Care Team (Late st Contact Info) Description 06/26/2024 Orders Only [facility] [address] [place] [address] Ellis Novoa MD [address] [facility] [address] [place] [address] Urothelial carcinoma of bladder (HCC) Social History Tobacco Use Types Packs/Day Years Used Date Smoking Tobacco: Former Cigarettes 1 45 S tarted: 1979 Passive Smoke Exposure: Past Smokeless Tobacco: Never Alcohol Use Standard Drinks/Week Comments No 0 (1 standard drink = 0.6 oz pur e alcohol) [facility] Utilities Answer Date Recorded In the [...] often do you attend chur ch or moravian services? More than 4 times per year [...] any time in the past 12 m [facility], were you homeless or living in a skilled nursing (including now)? 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 Gender Identity Not on file Sexual Orientation Not on file documented as of this encounter Plan of Treatment Upcoming Encounters Date Type Department Care Team (Late st Contact Info) Description 02/04/2025 9:30 AM CDT Hospital Encounter [address] [address] Vic Gaines, DO 3 [facility] [address] [place] [address] 02/04/2025 9:30 AM CDT - 02/04/2025 10:00 AM CDT Surgery [address] [address] Vic Gaines, DO 3 [facility] [address] [place] [address] COLONOSCOPY Scheduled Procedures Name Priority Associated Diagnoses Date/Ti me COLONOSCOPY Encounter for screening colonoscopy 02/04/2025 9:30 AM CDT documented as of this encounter Procedures Procedure Name Priority Date/Time Associated Diagnosis Comments SURGICAL PATHOLOGY Routine 06/26/2024 3: 59 PM CDT Urothelial carcinoma of bladder (HCC) documented in this encounter Results * Surgical pathology (06/26/2024 3:59 PM CDT) Tissue (Miscellaneous) 06/26/2024 3:59 PM CDT 06/26/2024 3:59 PM CDT Narrative [facility] - 06/28/2024 10:44 AM CDT EPIC results best viewed via link to PDF [facility] Pathology Consult Service [address], [place] [address] Note to Patients: This report may contain [...] and explain the details. SURGICAL PATHOLOGY REPORT * Consult Report * [facility] is providing an additional review of previously collected tissue. FINAL Patient Name: ??MOSHE HARTLEYChamp Address: ??[address] [place] [address], ?[place], [place] ??[address] Gender: ??F : ??1965 (Age: 59) Hospital #: ??[id number] Patient Type: ??[facility] Location: ??UNKNOWN Taken: ??06/26/2024 Received: ??06/26/2024 Accessioned: ??06/26/2024 Reported: ??06/28/2024 Physician(s): Ellis Novoa M.D. [facility] Department of Pathology [facility] [place] [address] P: [phone] ? F: [phone] Diagnosis: Consult material received from [facility], [place], [place] (OSC: [id number]; 05/17/2024). Kidney and ureter, left, nephroureterectomy ? - ??Invasive high-grade papillary urothelial carcinoma ?- 2.3 cm in greatest dimension ?- Arising in the renal pelvis and extending into the renal parenchyma ?- Lymphovascular invasion identified ?- Resection margins negative ?- Pathologic stage pT3N0 ? - No evidence of malignancy in one lymph node (0/1) celt/06/27/2024 13:35 By this signature, I attest that the above diagnosis is based upon my personal examination of the slides(and/or other material indicated in the diagnosis). Jacob Ramirez M.D., Ph.D. Report Electronically Reviewed and Signed Out By Jacob Ramirez M.D., Ph.D. 06/28/2024 10:44:45 Microscopic Description and Comment: Unless gross-only is specified, the final diagnosis for each specimen is based on a microscopic examination of each tissue sample. Hallie Hoyos D.O. History: The patient is a 59-year-old woman with history of urthothelial carcinoma of bladder. Materials Received: Received for review are nineteen slides labeled [id number], accompanied by a corresponding pathology report. The material originates from [facility], [place], [place] . Selected slide(s) may be digitally scanned for our files, and all materials are returned to the referring institution, along with a copy of our final report. Any testing required for diagnostic purposes was performed in the Department of Pathology and Immunology at [facility], [address] [place] [id number] CLIA # [id number] The performance characteristics of the testing cited in this report (if any) were determined by the ??[facility] Department of Pathology and Immunology [facility], as part of an ongoing senior software quality engineer program and in compliance with federally mandated regulations drawn from the Clinical Laboratory Improvement Act of 1988 (CLIA '88). ??Some of these tests rely on the use of analyte specific reagents (ASR) and are subject to specific labeling requirements by the US Food and Drug Administration. ??Such diagnostic tests may only be performed in a facility that is certified by the Department of Health and Human Services as a high complexity laboratory under CLIA '88. ??The FDA has determined that such clearance or approval is not necessary. ??ASRs should not be regarded as investigational or for research. ??ASRs were developed and the performance characteristics determined by the [facility], [facility] Department of Pathology and Immunology. ??It has not been cleared or approved by the U.S. Food and Drug Administration. ??Any test designated as LDT was developed and its performance characteristics determined by [facility]. It has not been cleared or approved by the FDA. This test is used for clinical purposes and should not be regarded as investigational or for research. Report images and/or scanned reports, if included, only viewable in PDF version of report. us Ellis Novoa MD LAB PATHOLOGY ORDERABLES Fi nal Result [facility] [address] [place] [address] documented in this encounter Visit Diagnoses Diagnosis Urothelial carcinoma of bladder (HCC) Encounter for screening colonoscopy documented in this encounter Care Teams Oracle Erp Architect Relationship Specialty Start Date End Date Karson Forbes MD [address] [place] [address] PCP - General Family Medicine 11/23/23 Phoenix Loredo MD Consulting Physician Cardiology 01/04/19 [place] [address] [place] [address] Direct Entry Midwife Obstetrics and Gynecology 04/19/21 [place] [address] [place] [address] Consulting Physician Urology 05/17/24 Ho Phan MD [address] [place] [address] Medical Oncologist/Efficiency Analyst Hematology and Oncology 06/04/24 documented as of this encounter
--- OUTSIDE RECORDS SUMMARY | 2024-10-13 04:05 | XMS_ITS | Encounter Summary ---
Author Organization [facility] Healthcare Address [address] [place] [address] Care Team Providers Care Fabrication Technician Name Role Phone Phoenix Loredo MD Unavailable [phone] Aylin Lundy MD Unavailable [phone] Karson Forbes MD Primary Care Provider [phone] Encounter Details Date Type Department Care Team (Latest Contact Info) Description 05/14/2024 1:15 PM CDT Pre-Admission Testing [facility] Pre Anesthesia Testing [facility] [place] [address] Pre-op evaluation (Primary Dx) Anesthesia Record Procedure Summary Procedure Name Responsible Anesthesiologist Anesthesia Start Time Anesthesia Stop Time Hand Assisted Laparoscopic Left Nephroureterectomy (Left: Abdomen) Levi Porter MD 05/17/24 1135 05/17/24 1514 Events Date Time Event Comment 05/17/2024 0943 1132 In Room 1135 An Start 1135 An Start Data 1139 An Induction The patient was reevaluated immediately before moderate or deep sedation use and before anesthesia induction. 1141 An Intubation 1151 Anesthesia Ready 1209 Proc Start 1209 an vic now Troubleshooting bp cuff, repositioned 1210 Incision Start 1453 Proc Fin 1457 An Extubation 1507 an stop data 1507 Out of Room 1514 Handoff to RN I completed my handoff to the receiving nurse during which we: 1. Patient identified 2. Responsible provider identified 3. Pertinent medical history reviewed 4. Procedure type and surgical course discussed 5. Intraoperative anesthetic management and any significant issues discussed 6. Expectations and concerns for postop period discussed 7. Questions solicited from receiving nurse 8. Patient disposition at the time of handoff: PACU 1514 An Stop Meds * Agents No agents on file. * Blood No blood administrations on file. Lines, Drains, and Airways Type Details Placement Removal Peripheral IV Placement Date: 05/17/24; Placement Time: 09; Catheter Size: 18 G; Orientation: Left, Posterior; Location: Hand; Inserted by: Aylin ALMONTE; Insertion Attempts: 1; Patient Tolerance: Tolerated well; Removal Date: 05/19/24; Removal Time: 2100; Removal Reason: Infiltrated 05/17/24 0901 by Pepper Fierro RN 05/19/24 2100 by Emily Vizcarra RN Peripheral IV Placement Date: 05/17/24; Placement Time: 1130; Catheter Size: 20 G; Orientation: Left; Location: Wrist; Inserted by: pre op nurse; Removal Date: 05/17/24; Removal Time: 1521 (not present upon arrival to pacu) 05/17/24 1130 by Addison Neff CRNA 05/17/24 1521 by Savi Miller RN Urethral Catheter Placement Date: 05/17/24; Placement Time: 1140; Inserted by: Heriberto DAI; Type: Non-latex, Double-lumen; Balloon Size: 10 mL; Urine Returned: Yes; Removal Date: 05/17/24; Removal Time: 1426; Removal Reason: Per protocol 05/17/24 1140 by Chioma Pennington RN 05/17/24 1426 by Chioma Pennington, GAGE Peripheral IV Placement Date: 05/17/24; Placement Time: 1149; Catheter Size: 18 G; Orientation: Right; Location: Hand; Site Prep: Chlorhexidine; Inserted by: addison neff crna; Insertion Attempts: 1; Removal Date: 05/17/24; Removal Time: 1521 (not present upon arrival to pacu) 05/17/24 1149 by Addison Neff CRNA 05/17/24 1521 by Savi Miller RN ETT Placement Date: 05/17/24; Placement Time: 1207 (created via procedure documentation); Mask Ventilation: 1; Technique: Direct laryngoscopy; Type: ETT - single; Single Lumen Tube Size: 7 mm; Cuffed: Yes; Laryngoscope: Cheema; Blade Size: 2; Location: Oral; Grade View: Grade IIa; Insertion Attempts: 1; Placement Verification: Auscultation, Capnometry; Removal Date: 05/17/24; Removal Time: 1457 05/17/24 1207 by Addison Neff, CARE CONSULTANT 05/17/24 1457 by Addison Neff, CARE CONSULTANT Wound 05/17/24; 1321; N; Incision; Medial, Mid-line, Left; trocar sites x2, 1 long incision; 05/20/24; 1053 05/17/24 1321 by Dayanara Wilson RN 05/20/24 1053 by Kathy Chavez RN RETIRED Surgical Site 05/17/24; 1321; Le ft; Abdomen; Trocar Sites x 2, 1 long incision; 05/20/24; 0717; Cutover - Retired LDA replaced with new LDA 05/17/24 1321 by Chioma Pennington RN 05/20/24 0717 by Dayanara Wilson, GAGE Urethral Catheter Placement Date: 05/17/24; Placement Time: 1452; Inserted by: Dr Last; Type: Double-lumen, Non-latex; Balloon Size: 10 mL; Urine Returned: Yes; Removal Date: 05/23/24; Removal Time: 1132; Removal Reason: Per order 05/17/24 1452 by Chioma Pennington RN 05/23/24 1132 by Nkechi Villalobos RN documented in this encounter Social History Tobacco Use Types Packs/Day Years Used Date Smoking Tobacco: Every Day Cigarettes 1 45 Started: 1979 Passive Smoke Exposure: Past Smokeless Tobacco: Never Tobacco Cessation:Ready to Q uit: Not Asked; Counseling Given: Not Answered Alcohol Use Standard Drinks/Week Comments No 0 (1 standard drink = 0.6 oz pur e alcohol) AUDIT-C Answer Date Recorded Q1: How often do you have a drink containing alcohol? Never 05/14/2024 Q2: How many drinks containi ng alcohol do you have on a typical day when you are drinking? Patient does not drink Q3: How often do you have si x or more drinks on one occasion? Never 05/14/2024 PHQ-2 Answer Date Recorded PHQ-2 Total Score (If total score is 3 or more points, staff should administer the PHQ-9) 0 06/21/2023 Personal Safety Answer Date Recorded Have you ever been in or are you currently in a harmful physical or emotional relationship or is someone making you feel afraid or unsafe? 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[employer] Gender Identity Not on file Sexual Orientation Not on file documented as of this encounter Last Filed Vital Signs Vital Sign Reading Time Taken Comments Blood Pressure 134/77 05/14/2024 1:21 PM CDT Pulse 78 05/14/2024 1:21 PM CDT Temperature - - Respiratory Rate - - Oxygen Saturation 99% 05/14/2024 1:21 PM CDT Inhaled Oxygen Concentration - - Weight 63.5 kg (140 lb) 05/14/2024 1:21 PM CDT Height 154.9 cm (5' 1 ) 05/14/2024 1:21 PM CDT Body Mass Index 26.45 05/14/2024 1:21 PM CDT documented in this encounter Miscellaneous Notes * Perioperative Nursing Note - Rola Wilkinson RN - 05/14/2024 1:15 PM CDT Surgical shower instructions and LUCIA wipes given at SEC appt. Pt verbalizes understanding. * Pre-Procedure Instructions - Tanja Hamilton NP - 05/14/2024 1:15 PM CDT Pre-Operative Fasting Guidelines. Surgery Date: 05/17/2024 TIME: 10:30 AM Arrival: 8:30 AM ? The day before surgery YOU MAY NOT EAT ANYTHING AFTER MIDNIGHT ? You may continue to drink only these liquids (Gatorade/Powerade, and water) until 3 hours prior to surgery. ? Drink a 16 oz Gatorade or Powerade 3 hours prior to surgery (not G2 or Powerade Zero). After thisdrink DO NOT DRINK ANYTHING ELSE. ? STOP DRINKING LIQUIDS AT: 7:30 AM ? I will take these medications the morning of surgery: Metoprolol ? Blood Thinners: My surgeon will tell me if I need to change these medications before surgery. If I haven???t been told what to do with these, I will call my surgeon to find out: Coumadin/Jantoven (warfarin), Pradaxa (dabigatran), Xarelto (rivaroxaban), Plavix (clopidogrel), Effient (prasurgel), Ticlid (ticlopidine), Eliquis (apixaban), Pletal (cilostazol) and Aspirin. Stop or continue per instructions from Dr. Last and prescribing provider ? STOP these medications 5 days before surgery: Excedrin, Motrin/Advil (ibuprofen), Aleve (naproxen), Celebrex (celecoxib), lndocin (indomethacin), and Mobic (meloxicam). ? STOP these medications 7-14 days before surgery: Vitamin E, fish oil, herbal medicines, and diet pills. ? IF I AM A DIABETIC: I will not take diabetes medicine (pills or insulin) on the morning of surgery. If I have an insulin pump, I will continue the pump at the basal rate. ? If I use inhalers or have a CPAP machine I will bring them with me to the hospital. ? NO: Jewelry (including body piercings), make up, hair pins, or contact lenses will be brought with me. I will also leave valuables and money at home or with family. ? I WILL BRING: Photo ID card, health insurance card, advance directive, or durable power of civil litigation attorney (if I have one) with me. I will also bring glasses with case, dentures, hearing aids, and comfortable clothes to go home in. ? FOR OUTPATIENT SURGERY: I will have a ride home and someone to stay with me for 24 hours. I cannot take a cab or bus home, and cannot stay at a hotel alone after surgery. ? I WILL FOLLOW: bowel prep if directed by my surgeon and preoperative skin preparation as directed. ? I WILL CONTACT: my surgeon if there are any changes in my medical condition, infections, or new medications are started before my surgery. ? Your surgeon???s office will tell you when to arrive for surgery, enter the Main Entrance of the hospital and take the first right turn for the [facility]. Go to the second floor and report to the surgery area. IMPORTANT: If there is any change in your surgical procedure time or any questions please call Tanja at [phone] documented in this encounter Plan of Treatment Upcoming Encounters Date Type Department Care Team (Late st Contact Info) Description 02/04/2025 9:30 AM CDT Hospital Encounter [address] [address] Vic Gaines, DO 3 [facility] [place] [address] [place] [address] 02/04/2025 9:30 AM CDT - 02/04/2025 10:00 AM CDT Surgery [address] [address] Vic Gaines, DO 3 [facility] [place] [address] [place] [address] COLONOSCOPY Scheduled Procedures Name Priority Associated Diagnoses Date/Ti me COLONOSCOPY Encounter for screening colonoscopy 02/04/2025 9:30 AM CDT documented as of this encounter Procedures Procedure Name Priority Date/Time Associated Diagnosis Comments EGFR Routine 05/14/2024 2:56 PM CDT Pre-op evaluation BASIC METABOLIC PANEL Routine 05/14/2024 2:56 PM CDT Pre-op evaluation DIFFERENTIAL AUTO Routine 05/14/2024 1:3 5 PM CDT Pre-op evaluation CBC WITH AUTO DIFFERENTIAL Routine 05/14/2024 1:35 PM CDT Pre-op evaluation TYPE AND SCREEN Routine 05/14/2024 1:35 PM CDT Pre-op evaluation HEMOGLOBIN A1C Routine 05/14/2024 1:35 PM CDT Pre-op evaluation documented in this encounter Results * eGFR (05/14/2024 2:56 PM CDT) eGFR 84 >=60 mL/min/1. 73 m2 Comment: Interpretive Data [...] of Race in Diagnosing Kidney Disease, JASN 202). The CKD-EPI equation should not be used for patients with unstable renal function and has not been validated in children and those over 70. Current interpretive data was last reviewed 2021. Blood 05/14/2024 2:56 PM CDT 05/14/2024 2:57 PM CDT Tanja Hamilton NP LAB BLOOD ORDERABLES Fin al Result [facility] [address] Department [place] [address] * Basic metabolic panel (05/14/2024 2:56 PM CDT) Pathologist [facility] Sodium 145 135 - 145 mmol/L Potassium, pl 4.6 3.3 - 4.9 mmol/L [facility] Chloride 109 97 - 110 mmol/L [facility] CO2 23 22 - 32 mmol/L [facility] Anion gap 13 2 - 15 mmol/L [facility] BUN 8 6 - 25 mg/dL [facility] Creatinine 0.80 0.60 - 1.10 mg/dL [facility] Glucose 92 70 - 199 mg/dL [facility] Comment: Interpretive Data Fasting glucose >/= 126 [...] interpretive data was last revised 2022. Calcium 9.3 8.5 - 10.3 mg/dL [facility] Blood 05/14/2024 2:56 PM CDT 05/14/2024 2:57 PM CDT Tanja Hamilton NP LAB BLOOD ORDERABLES Fin al Result [facility] [address] [place] [address] * Differential, auto (05/14/2024 1:35 PM CDT) [facility] Neutrophil abs 5.1 1.5 - 6.5 K/cumm Imm gran abs 0.0 0.0 - 0.1 K/cumm [facility] Lymphocyte abs 2.3 0.8 - 3.3 K/cumm [facility] Monocyte abs 0.6 0.2 - 0.8 K/cumm [facility] Eosinophil abs 0.1 0.0 - 0.5 K/cumm [facility] Basophil abs 0.0 0.0 - 0.1 K/cumm [facility] Neutrophil pct 63.0 % [facility] Comment: Interpretive Data Percent cell count reference ranges are not reported, since discordance with absolute values may lead to misinterpretation of CBC data. Current Interpretive Data was last revised on 2018. Imm gran pct 0.2 % [facility] Comment: Interpretive Data Percent cell count reference ranges are not reported, since discordance with absolute values may lead to misinterpretation of CBC data. Current Interpretive Data was last revised on 2018. Lymphocyte pct 28.8 % [facility] Comment: Interpretive Data Percent cell count reference ranges are not reported, since discordance with absolute values may lead to misinterpretation of CBC data. Current Interpretive Data was last revised on 2018. Monocyte pct 6.8 % [facility] Comment: Interpretive Data Percent cell count reference ranges are not reported, since discordance with absolute values may lead to misinterpretation of CBC data. Current Interpretive Data was last revised on 2018. Eosinophil pct 0.7 % [facility] Comment: Interpretive Data Percent cell count reference ranges are not reported, since discordance with absolute values may lead to misinterpretation of CBC data. Current Interpretive Data was last revised on 2018. Basophil pct 0.5 % [facility] Comment: Interpretive Data Percent cell count reference ranges are not reported, since discordance with absolute values may lead to misinterpretation of CBC data. Current Interpretive Data was last revised on 2018. Blood 05/14/2024 1:35 PM CDT 05/14/2024 2:25 PM CDT Tanja Hamilton NP LAB BLOOD ORDERABLES Fin al Result [facility] [address] Department [place] [address] * (ABNORMAL) Hemoglobin A1c (05/14/2024 1:35 PM CDT) Hgb A1C 5.7(H) 4.0 - 5.6 % Estimated Average Glucose 117 mg/dL [facility] Comment: The ADA recommends reporting an estimated Average Glucose (eAG) with all Hemoglobin A1c results using the equation derived from a study of 507 normal and diabetic adults. ??Minority populations were underrepresented and children were not included. ?? (Diabetes Care 31:4165-3549, 2008). ??The eAG is not equivalent to a fasting glucose. Blood 05/14/2024 1:35 PM CDT 05/14/2024 2:25 PM CDT Tanja Hamilton NP LAB BLOOD ORDERABLES Fin al Result Performing Organization Address [facility] Co de Phone Number [facility] [address] [place] [address] * Type and screen (05/14/2024 1:35 PM CDT) Pathologist [facility] ABO Rh A Positive Radha, indirect Negative [facility] Blood 05/14/2024 1:35 PM CDT 05/14/2024 2:21 PM CDT Narrative [facility] - 05/14/2024 3:18 PM CDT Is this test being ordered in advance for a procedure?->Yes Expected date of procedure:->05/17/24 Has the patient been transfused in the past 3 months?->No Has the patient been in the past 3 months?->No Tanja Hamilton NP LAB BLOOD BANK TEST ORDE RABLES Final Result Performing Organization Address [facility]/ZIP Co de Phone Number [facility] [address] [place] [address] * CBC with auto differential (05/14/2024 1:35 PM CDT) Pathologist [facility] WBC 8.1 3.8 - 9.9 K/cumm Hgb 14.0 11.9 - 15.5 g/dL [facility] Hct 43.1 35.6 - 45.5 % [facility] Plt 239 150 - 400 K/cumm [facility] MPV 10.0 9.1 - 12.3 fL [facility] RBC 4.57 3.90 - 5.20 M/cumm [facility] MCV 94.3 81.3 - 96.4 fL [facility] MCH 30.6 27.1 - 33.3 pg [facility] MCHC 32.5 32.3 - 35.7 g/dL [facility] RDW CV 13.1 11.1 - 14.9 % [facility] RDW SD 44.8 35.7 - 48.1 fL [facility] NRBC abs 0.00 0.00 - 0.01 K/cumm [facility] Blood 05/14/2024 1:35 PM CDT 05/14/2024 2:25 PM CDT Tanja Hamilton NP LAB BLOOD ORDERABLES Fin al Result Performing Organization Address City/State/[facility] Co de Phone Number [facility] [address] Department [place] [address] documented in this encounter Visit Diagnoses Diagnosis Pre-op evaluation- Primary Encounter for screening colonoscopy documented in this encounter Discontinued Medications Medication Sig Discontinue Reason Start Date End Da te albuterol 2.5 mg /3 mL (0.083 %) nebulizer solution Take 3 mL (2.5 mg total) by nebulization every 6 (six) hours as needed for wheezing Error 02/23/2023 05/14/2024 albuterol HFA (PROVENTIL HFA,VENTOLIN HFA,PROAIR HFA) 90 mcg/actuation inhaler Inhale 2 puffs every 6 (six) hours as needed for wheezing Error 09/14/2022 05/14/2024 aspirin 81 mg enteric coated tablet Take 1 tablet (81 mg total) by mouth daily Error 06/21/2023 05/14/2024 atorvastatin (LIPITOR) 40 mg tablet TAKE 1 TABLET(40 MG) BY MOUTH DAILY Error 11/30/2023 05/14/2024 glycopyrrolate-formoter oL (Bevespi Aerosphere) 9-4.8 mcg inhaler Inhale 2 puffs 2 (two) times a day Error 02/28/2023 05/14/2024 albuterol HFA (PROVENTIL HFA,VENTOLIN HFA,PROAIR HFA) 90 mcg/actuation inhaler Inhale 2 puffs every 6 (six) hours as needed for wheezing Error 05/14/2024 clopidogreL (PLAVIX) 75 mg tablet TAKE 1 TABLET(75 MG) BY MOUTH DAILY Error 09/04/2023 05/14/2024 coenzyme Q10 (CO Q-10) 200 mg capsule Take 1 capsule by oral route every day Error 12/07/2016 05/14/2024 fluticasone propionate (FLONASE) 50 mcg/actuation nasal spray Administer 1 spray into each nostril daily Error 06/21/2023 05/14/2024 loratadine (CLARITIN) 10 mg tablet Take 1 tablet (10 mg total) by mouth daily Error 05/14/2024 Lactobacillus acidophilus (PROBIOTIC) 10 billion cell capsule Take 1 capsule by oral route every day Error 12/07/2016 05/14/2024 metoprolol XL (TOPROL-XL) 50 mg extended release tabletIndications:Mixed hyperlipidemia,Multiple -type hyperlipidemia TAKE 1 TABLET(50 MG) BY MOUTH DAILY Error 11/30/2023 05/14/2024 multivitamin capsule Take 1 capsule by mouth daily Error 05/14/2024 documented as of this encounter Historical Medications * This list may reflect changes made after this encounter. Bacillus coagulans (PROBIOTIC, B. COAGULANS, ORAL) Take by mouth every morning multivitamin tablet Take 1 tablet by mouth every morning metoprolol XL (TOPROL-XL) 50 mg extended release tablet Take 1 tablet (50 mg total) by mouth every morning fluticasone propionate (FLONASE) 50 mcg/actuation nasal spray Administer 1 spray into each nostril as needed for rhinitis coenzyme Q10 200 mg capsule Take 1 capsule (200 mg total) by mouth every morning atorvastatin (LIPITOR) 40 mg tablet Take 1 tablet (40 mg total) by mouth every morning clopidogreL (PLAVIX) 75 mg tablet Take 1 tablet (75 mg total) by mouth every morning Last dose 05/10/2024 aspirin 81 mg enteric coated tablet Take 1 tablet (81 mg total) by mouth every morning Last dose 05/10/2024 08/12/202 4 albuterol HFA (PROVENTIL HFA,VENTOLIN HFA,PROAIR HFA) 90 mcg/actuation inhaler Inhale 2 puffs every 6 (six) hours as needed for wheezing 4 added in this encounter Care Teams Fabrication Technician Relationship Specialty Start Date End Date Karson Forbes MD [address] [place] [address] PCP - General Family Medicine 11/23/23 Phoenix Loredo MD Consulting Physician Cardiology 01/04/19 [place] [address] [place] [address] Block Trimmer Obstetrics and Gynecology 04/19/21 documented as of this encounter
--- OUTSIDE RECORDS SUMMARY | 2024-10-13 04:05 | XMS_ITS | Encounter Summary ---
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) [C65.2] Procedures [place] LAPAROSCOPY NEPHRECTOMY W/TOTAL URETERECTOMY Hand Assisted Laparoscopic Left Nephroureterectomy Referral ID Status Reason Start Date Expiration Date Visits Re quested Visits Authorized [id number] 1 1 Encounter Details Date Type Department Care Team (Latest Contact Info) Description 05/17/2024 10:30 AM CDT - 05/17/2024 2:30 PM CDT Surgery [facility] Operating Room [address] [place] [address] [place] [address] [place] [address] Hand Assisted Laparoscopic Left Nephroureterectomy Surgery Details Date/Time Status Location OR Service Patient Class Case Class Case Type Trauma Case? 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 Gender Identity Not on file Sexual Orientation Not on file documented as of this encounter Last Filed Vital Signs Vital Sign Reading Time Taken Comments Blood Pressure 132/57 05/17/2024 8:55 AM CDT Pulse 62 05/17/2024 8:55 AM CDT Temperature 36.4 ??C (97.6 ??F) 05/17/2024 8:55 AM CD T Respiratory Rate 26 05/17/2024 8:55 AM CDT Oxygen Saturation 98% 05/17/2024 8:55 AM CDT Inhaled Oxygen Concentration - - Weight 62.8 kg (138 lb 7.2 oz) 05/17/2024 8:55 A M CDT Height 154.9 cm (5' 1 ) 05/17/2024 8:55 AM CDT Body Mass Index 26.16 05/17/2024 8:55 AM CDT documented in this encounter Discharge Summaries * Lilian Dexter, LAUNDRY SUPERINTENDENT - 05/20/2024 8:10 AM CDT Inpatient Discharge Summary BRIEF OVERVIEW Admitting Provider: Karlie Last MD Discharge Provider: Karlie Last MD Primary Care Physician at Discharge: Karson Forbes MD [phone] Admission Date: 05/17/2024 Discharge Date: 05/20/2024 Admission Location: [facility] Problems/Diagnoses: Principal Problem: Transitional cell carcinoma [...] Main 04/15/2025 8:00 AM Phoenix Loredo MD [facility] CAR 122 PSA 05/01/2025 9:30 AM Che Nair NP MG PLM 230 Specialty Contact Information for Follow-ups Karlie Last MD Specialty: Urology Relationship: Consulting Physician [address] [place] [address] Next Steps: Follow up Comments: Follow up with Dr. Last in 1 week Call the office for an appointment. Telephone - [phone] Questions: To provider: KARLIE LAST Home O2: documented in this encounter Discharge Instructions * Attachments The following attachments cannot be sent through Care Everywhere. * Harris Catheter Placement and Care (Discharge Care) ([place]i) * How to Change a Catheter Drainage Bag (Discharge Care) ([place]i) documented in this encounter Medications at Time of Discharge albuterol HFA (PROVENTIL HFA,VENTOLIN HFA,PROAIR HFA) 90 mcg/actuation inhalerIndication s:Centrilobular emphysema (HCC) Inhale 2 puffs every 6 (six) hours as needed for wheezing or shortness of breath 1 each 11 05/01/2024 07/24/202 5 atorvastatin (LIPITOR) 40 mg tablet Take [...] in this encounter Progress Notes * Lilian Dexter NP - 05/20/2024 8:03 AM CDT GENERAL SURGERY [...] Behavior normal. Recent Labs Lab Units 05/20/24 0505/19/24 0525 05/18/24 0453 WBC K/cumm 10.4* 12.2* [...] nephrectomy SURGICAL PATHOLOGY Karlie Last MD 05/17/2024 8470 Report pending ASSESSMENT/PLAN Principal Problem: Transitional cell [...] (138 lb 7.2 oz) LMP (LMP Unknown) [id number]% BMI 26.16 kg/m?? Height: 154.9 cm (5' [...] prophylaxis -------- Emily Carrillo MD [facility] [address] [place] [address], [address] [place] [address] [phone] office [phone] cell * Anne-Marie Arshad NP - 05/18/2024 [...] patient VTE prophylaxis: Heparin sub q SCDs Anne-Marie Arshad NP-C 05/18/2024 8:00 AM Surgical Home documented in [...] Left URS (04/18/24) by Dr. Houston at [place] reveals upper,mid and lower pole papillary lesions with scant papillations in the renal pelvis and nodularity in mid pole. 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 Houston at [place] reveals upper,mid and lower pole papillary lesions [...] not controled but in contact with the LAUNDRY SUPERINTENDENT to see about adjusting meds. Complaining mostly [...] Description 02/04/2025 9:30 AM CDT Hospital Encounter [address] [address] Vic Gaines, DO 3 [facility] [address] [place] [address] 02/04/2025 9:30 AM CDT - 02/04/2025 10:00 AM CDT Surgery [address] [address] Vic Gaines, DO 3 [facility] [address] [place] [address] COLONOSCOPY Scheduled Procedures Name Priority Associated Diagnoses [...] 5:25 AM CDT COVID-19 CORONAVIRUS RNA STAT 10:01 PM CDT EGFR Timed 05/18/2024 11:36 [...] MD LAB BLOOD ORDERABLES Final Resu lt [facility] [address] Department [place] [address] * (ABNORMAL) CBC without differential (05/20/2024 5:17 AM CDT) Pathologist [facility] WBC 10.4(H) 3.8 - 9.9 K/cumm Hgb 13.0 11.9 - 15.5 g/dL [facility] Hct 39.2 35.6 - 45.5 % [facility] Plt 171 150 - 400 K/cumm [facility] MPV 10.1 9.1 - 12.3 fL [facility] RBC 4.26 3.90 - 5.20 M/cumm [facility] MCV 92.0 81.3 - 96.4 fL [facility] MCH 30.5 27.1 - 33.3 pg [facility] MCHC 33.2 32.3 - 35.7 g/dL [facility] RDW CV 13.2 11.1 - 14.9 % [facility] RDW SD 44.6 35.7 - 48.1 fL [facility] NRBC abs 0.00 0.00 - 0.01 K/cumm [facility] Blood 05/20/2024 5:17 AM CDT 05/20/2024 5:28 AM CDT us Karlie Last MD LAB BLOOD ORDERABLES Final Resu lt [facility] [address] Department [place] [address] * (ABNORMAL) Comprehensive metabolic panel (05/20/2024 5:17 AM CDT) Sodium 139 135 - 145 mmol/L Potassium, pl 4.5 3.3 - 4.9 mmol/L [facility] Chloride 109 97 - 110 mmol/L [facility] CO2 20(L) 22 - 32 mmol/L [facility] Anion gap 10 2 - 15 mmol/L [facility] BUN 11 6 - 25 mg/dL [facility] Creatinine 0.98 0.60 - 1.10 mg/dL [facility] Glucose 95 70 - 199 mg/dL [facility] Comment: Interpretive Data Fasting glucose >/= 126 [...] 2022. Calcium 8.8 8.5 - 10.3 mg/dL [facility] Bilirubin, total 0.3 0.1 - 1.2 mg/dL [facility] Protein, pl 5.9(L) 6.5 - 8.5 g/dL [facility] Albumin 3.3(L) 3.5 - 5.0 g/dL [facility] Alk phos 73 40 - 130 Units/L [facility] ALT 15 7 - 45 Units/L [facility] AST 19 10 - 45 Units/L [facility] Blood 05/20/2024 5:17 AM CDT 05/20/2024 5:28 AM CDT us Karlie Last MD LAB BLOOD ORDERABLES Final Resu lt [facility] [address] Department [place] [address] * (ABNORMAL) eGFR (05/19/2024 5:25 AM CDT) [...] MD LAB BLOOD ORDERABLES Final Resu lt [facility] [address] Department [place] [address] * (ABNORMAL) CBC without differential (05/19/2024 5:25 AM CDT) WBC 12.2(H) 3.8 - 9.9 K/cumm Hgb 14.2 11.9 - 15.5 g/dL [facility] Hct 42.2 35.6 - 45.5 % [facility] Plt 196 150 - 400 K/cumm [facility] MPV 10.7 9.1 - 12.3 fL [facility] RBC 4.63 3.90 - 5.20 M/cumm [facility] MCV 91.1 81.3 - 96.4 fL [facility] MCH 30.7 27.1 - 33.3 pg [facility] MCHC 33.6 32.3 - 35.7 g/dL [facility] RDW CV 13.2 11.1 - 14.9 % [facility] RDW SD 44.7 35.7 - 48.1 fL [facility] NRBC abs 0.00 0.00 - 0.01 K/cumm [facility] Blood 05/19/2024 5:25 AM CDT 05/19/2024 7:57 AM CDT us Karlie Last MD LAB BLOOD ORDERABLES Final Resu lt [facility] [address] Department [place] [address] * (ABNORMAL) Comprehensive metabolic panel (05/19/2024 5:25 AM CDT) Sodium 141 135 - 145 mmol/L Potassium, pl 4.4 3.3 - 4.9 mmol/L [facility] Chloride 100 97 - 110 mmol/L [facility] CO2 29 22 - 32 mmol/L [facility] Anion gap 12 2 - 15 mmol/L [facility] BUN 9 6 - 25 mg/dL [facility] Creatinine 1.18(H) 0.60 - 1.10 mg/dL [facility] Glucose 107 70 - 199 mg/dL [facility] Comment: Interpretive Data Fasting glucose >/= 126 [...] 2022. Calcium 9.7 8.5 - 10.3 mg/dL [facility] Bilirubin, total 0.4 0.1 - 1.2 mg/dL [facility] Protein, pl 6.7 6.5 - 8.5 g/dL [facility] Albumin 3.7 3.5 - 5.0 g/dL [facility] Alk phos 87 40 - 130 Units/L [facility] ALT 19 7 - 45 Units/L [facility] AST 22 10 - 45 Units/L [facility] Comment:Slightly Hemolyzed S pecimen Blood 05/19/2024 5:25 AM CDT 05/19/2024 7:55 AM CDT us Karlie Last MD LAB BLOOD ORDERABLES [facility] [address] Department [place] [address] * COVID-19 Coronavirus RNA Nasopharyngeal (05/18/2024 10:01 PM CDT) [facility] COVID-19 RNA Negative Negative Nasopharyngeal 05/18/2024 10 :01 PM CDT 05/18/2024 10:09 PM CDT Karlie Last MD LAB MICROBIOLOGY - GENERAL ZACH [place] Final Result [facility] [address] Department [place] [address] * (ABNORMAL) eGFR (05/18/2024 11:36 AM CDT) [facility] eGFR 53(L) >=60 mL/min/1. 73 m2 Comment: [...] 6 AM CDT 05/18/2024 11:36 AM CDT [facility] Natasha Jeancarlos LAUNDRY SUPERINTENDENT LAB BLOOD ORDERABLES Fi nal Result Performing Organization Address City/[facility]/ZIP Co de Phone Number [facility] [address] [place] [address] * (ABNORMAL) Basic metabolic panel (05/18/2024 11:36 AM CDT) Sodium 144 135 - 145 mmol/L Potassium, pl 5.0(H) 3.3 - 4.9 mmol/L [facility] Chloride 106 97 - 110 mmol/L [facility] CO2 25 22 - 32 mmol/L [facility] Anion gap 13 2 - 15 mmol/L [facility] BUN 9 6 - 25 mg/dL [facility] Creatinine 1.18(H) 0.60 - 1.10 mg/dL [facility] Glucose 131 70 - 199 mg/dL [facility] Comment: Interpretive Data Fasting glucose >/= 126 [...] 2022. Calcium 9.7 8.5 - 10.3 mg/dL [facility] Blood 05/18/2024 11:3 6 AM CDT 05/18/2024 11:36 AM CDT us Anne-Marie Natasha Arshad LAUNDRY SUPERINTENDENT LAB BLOOD ORDERABLES Fi nal Result Performing Organization Address [facility]/ZIP Co de Phone Number [facility] [address] Department [place] [address] * (ABNORMAL) eGFR (05/18/2024 4:53 AM CDT) eGFR 55(L) >=60 mL/min/1. 73 m2 Comment: [...] data was last reviewed 2021. Blood 05/18/2024 4:5 3 AM CDT 05/18/2024 5:07 AM CDT us Karlie Last MD LAB BLOOD ORDERABLES Final Resu lt [facility] [address] Department [place] [address] * (ABNORMAL) CBC without differential (05/18/2024 4:53 AM CDT) WBC 12.4(H) 3.8 - 9.9 K/cumm Hgb 13.7 11.9 - 15.5 g/dL [facility] Hct 41.1 35.6 - 45.5 % [facility] Plt 220 150 - 400 K/cumm [facility] MPV 9.9 9.1 - 12.3 fL [facility] RBC 4.43 3.90 - 5.20 M/cumm [facility] MCV 92.8 81.3 - 96.4 fL [facility] MCH 30.9 27.1 - 33.3 pg [facility] MCHC 33.3 32.3 - 35.7 g/dL [facility] RDW CV 13.2 11.1 - 14.9 % [facility] RDW SD 45.0 35.7 - 48.1 fL [facility] NRBC abs 0.00 0.00 - 0.01 K/cumm [facility] Blood 05/18/2024 4:53 AM CDT 05/18/2024 5:07 AM CDT Karlie Last MD LAB BLOOD ORDERABLES Final Resu lt [facility] [address] Department [place] [address] * (ABNORMAL) Comprehensive metabolic panel (05/18/2024 4:53 AM CDT) Sodium 137 135 - 145 mmol/L Potassium, pl 5.4(H) 3.3 - 4.9 mmol/L [facility] Chloride 105 97 - 110 mmol/L [facility] CO2 23 22 - 32 mmol/L [facility] Anion gap 9 2 - 15 mmol/L [facility] BUN 8 6 - 25 mg/dL [facility] Creatinine 1.15(H) 0.60 - 1.10 mg/dL [facility] Glucose 171 70 - 199 mg/dL [facility] Comment: Interpretive Data Fasting glucose >/= 126 [...] 2022. Calcium 8.9 8.5 - 10.3 mg/dL [facility] Bilirubin, total 0.2 0.1 - 1.2 mg/dL [facility] Protein, pl 5.9(L) 6.5 - 8.5 g/dL [facility] Albumin 3.7 3.5 - 5.0 g/dL [facility] Alk phos 83 40 - 130 Units/L [facility] ALT 16 7 - 45 Units/L [facility] AST 18 10 - 45 Units/L [facility] Blood 05/18/2024 4:53 AM CDT 05/18/2024 5:07 AM CDT Karlie Last MD LAB BLOOD ORDERABLES Final Resu lt [place] [address] [facility] [facility] Department [place] [address] * Surgical pathology (05/17/2024 1:45 PM CDT) Tissue (Kidney, total nephrectomy) 05/17/2024 1:45 PM CDT Comment:Placed in Formalin i n OR Pathology at end of case Narrative PATHOLOGY [facility] - 05/20/2024 2:50 PM CDT [place] [id number] [place], [place] ??[address] Tele: ?? Didi Zamora MD - Commercial Lease Administrator Note to Patients: This report may contain [...] PATHOLOGY REPORT Patient Name: ??MOSHE HARTLEY Address: ??[address] [place], [place] [address] ??[address] Gender: ??F : ??1965 (Age: 59) Service: ??Surgery Location: ??[id number], ?? Hospital #: ??[id number] Patient Type: ??[facility] Accession #: ? [id number] Taken: ? 05/17/2024 Received ? 05/17/2024 Reported: [...] node ? - See cancer case summary [facility]/05/20/2024 14:50 Examining Pathologist: John Gomez MD, PhD [...] lesions. ??There are no gross lymph nodes. Airport Maintenance Chief sections are submitted as follows: ??A1 - [...] Renal Pelvis 2.3.0.0 Clerical Data Follows A; 79569 A, URETER; [id number] REPORT IMAGES AND/OR SCANNED DOCUMENTS ONLY VIEWABLE IN PDF FORMAT The immunohistochemical test(s) cited in this report, if any, was developed and its performance characteristics determined by [facility] Pathology Department. ??It has not been cleared or approved by the U.S. Food and Drug Administration. ??The FDA has determined that such clearance or approval is not necessary. ??This test is used for clinical purposes. ??It should not be regarded as investigational or for research. ??[facility] Laboratory is certified under the Clinical Laboratory [...] MD LAB PATHOLOGY ORDERABLES Final Result PATHOLOGY [facility] Laboratory Receiving [address] [place] [address] * Check Sample (05/17/2024 8:54 AM CDT) ABO Rh A Positive MBC HCLL OTHER 05/17/2024 8:54 AM CDT 05/17/2024 8:59 AM CDT Tanja Hamilton NP LAB BLOOD ORDERABLES Fin al Result Performing Organization Address 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) Transitional cell carcinoma of renal pelvis, unspecified laterality (HCC) documented in this encounter Administered Medications Inactive Administered Medications - up to 3 most recent administrations Medication Order MAR Action Action Date Dose Rate Site albuterol HFA (PROVENTIL HFA,VENTOLIN HFA,PROAIR HFA) 90 mcg/actuation inhaler 2 puff 2 puff, inhalation, Every 6 hours PRN (newspaper correspondent), wheezing, shortness of breath, Starting on Mon05/17/24 at 1720 aluminum-magnesium hydroxide-simethicone (MAALOX) 40-40-4 mg/mL oral suspension 30 mL 30 mL, oral, Every 4 hours PRN, heartburn, Starting on Mon05/18/24 at 1622 Given 05/19/2024 6:45 AM CDT 30 mL Given 05/19/2024 2:45 AM CDT 30 mL Given 05/18/2024 10:30 PM CDT 30 mL calcium carbonate (TUMS) chewable tablet 500 mg 500 mg (200 mg of elemental calcium), oral, 3 times daily PRN, heartburn, Starting on Mon05/18/24 at 1347 Given 05/19/2024 2:00 AM CDT 500 mg Given 05/18/2024 9:53 PM CDT 500 mg Given 05/18/2024 1:54 PM CDT 500 mg famotidine (PEPCID) injection 20 mg 20 mg, intravenous, Administer over 2 Minutes, Every 24 hours, First dose on Mon05/19/24 at 0915 Given 05/19/2024 8:40 AM CDT 20 mg heparin 5,000 unit/mL injection 5,000 Units [...] Given 05/17/2024 10:51 PM CDT 1 tablet levoFLOXacin (LEVAQUIN) tablet 500 mg 500 mg, oral, Daily (early AM), First dose on Mon05/18/24 at 0600, Give 2 hrs before or 2 hrs after MVI, antacids, or other products containing sucralfate, magnesium, aluminum, iron, or zinc. May be taken without regard to meals., Indications: Urinary Tract/Genitourinary InfectionIndications:Urinary Tract/Genitourinary Infection Given 05/20/2024 4:15 AM CDT 500 mg Given 05/19/2024 5:54 AM CDT 500 mg Given 05/18/2024 5:50 AM CDT 500 mg metoprolol XL (TOPROL-XL) extended release tablet 50 mg 50 mg, oral, Every morning, First dose on Mon05/18/24 at 0900, Tablets that are scored may [...] Given 05/19/2024 8:40 AM CDT 40 mg sodium chloride 0.9% infusion 50 mL/hr, intravenous, Continuous, Starting on Mon05/18/24 at 1300 New Bag 05/19/2024 2:48 AM CDT 50 mL/hr 50 mL/hr New Bag 05/18/2024 1:09 PM CDT 50 mL/hr 50 mL/hr sodium chloride 0.9% irrigation As needed, Starting on Mon05/17/24 at 1318, Intra-Op Given 05/17/2024 1:18 PM CDT 500 mL Surgical Site sterile water irrigation As needed, Starting on Mon05/17/24 at 1318, Intra-Op Given 05/17/2024 1:18 PM CDT 2,000 mL Surgical Site documented in this encounter Discontinued Medications Medication [...] RN) 0847 (Not Given - Provider: Kathy Chavez RN - Reason: Loss of IV access) guaiFENesin [...] Jesus Brown RN)194 (Given - Provider: Emily Vizcarra, GAGE) 0840 (Given - Provider: Fuentes Villatoro, GAGE)2051 (Given - Provider: Emily Vizcarra, GAGE) 0846 (Given - Provider: Kathy Chavez, GAGE) levoFLOXacin (LEVAQUIN) tablet 500 mg 500 mg, [...] Vizcarra, GAGE) 0415 (Given - Provider: Emily Vizcarra, GAGE) metoprolol XL (TOPROL-XL) extended release tablet 50 mg 50 mg, oral, Every morning, First dose on 05/18/24 at 0900, Tablets that are scored may be split, but do not crush, chew, dissolve, open or otherwise manipulate tablet/capsule. 0826 (Given - Provider: Jose De Jesus Brown, GAGE) 0840 (Given - Provider: Fuentes Villatoro RN) [...] Other (complete free text reason below), Indigestion 194 (Given - Provider: Emily Vizcarra, GAGE) Continuous Medication Order 05/18/2024 05/19/2024 05/20/2024 dextrose 5% and sodium chloride 0.45% infusion (premix) (CANCELED) 50 mL/hr, intravenous, Continuous, Starting on Mon05/17/24 at 1800 0350 (New Bag - Provider: Darline Patel, GAGE)0932 (Rate/Dose Change - Provider: Jose De Jesus Brown, GAGE)1309 (Stopped - Provider: Jose De Jesus Brown, GAGE) sodium chloride 0.9% infusion 50 mL/hr, intravenous, Continuous, Starting on 05/18/24 at 1300 1309 (New Bag - Provider: Jose De Jesus Brown RN) 0248 (New Bag - Provider: Emily Vizcarra RN) 1529 (Due: Stopped) PRN Medication Order 05/18/2024 05/19/2024 05/20/2024 albuterol HFA (PROVENTIL HFA,VENTOLIN HFA,PROAIR HFA) 90 mcg/actuation inhaler 2 puff 2 puff, inhalation, Every 6 hours PRN (newspaper correspondent), wheezing, shortness of breath, Starting on Mon05/17/24 at 1720 aluminum-magnesium hydroxide-simethicone (MAALOX) 40-40-4 mg/mL oral suspension 30 mL 30 mL, oral, Every 4 hours PRN, heartburn, Starting on 05/18/24 at 1622 1829 (Given - Provider: Jose De Jesus Brown RN)2230 (Given - Provider: Emily Vizcarra RN) 0245 (Given - Provider: Emily Vizcarra RN)0645 (Given - Provider: Emily Vizcarra RN) calcium carbonate (TUMS) chewable tablet 500 mg 500 mg (200 mg of elemental calcium), oral, 3 times daily PRN, heartburn, Starting on 05/18/24 at 1347 1354 (Given - Provider: Jose De Jesus Brown RN)2153 (Given - Provider: Emily Vizcarra RN) 0200 (Given - Provider: Emily Vizcarra RN)0955 (Not Given - Provider: Fuentes Villatoro RN - Reason: Patient/family refused) docusate sodium (COLACE) capsule 100 mg 100 mg, oral, 2 times daily PRN, constipation, Starting on Mon05/17/24 at 1716, Indications: constipation HYDROcodone-acetaminophen (NORCO) 5-325 mg per tablet 1 tablet 1 tablet, oral, Every 4 hours PRN, 1st line for pain, Starting on Mon05/17/24 at 1716, Indications: Pain 0558 (Given - Provider: Darline Patel RN)1500 (Given - Provider: Jose De Jesus Brown, [...] and vomiting 0558 (Given - Provider: Darline Patel, RN)1210 (See Alternative - Provider: Jose De Jesus Brown, RN)194 (Given - Provider: Emily Vizcarra, RN) 1407 (Given - Provider: Fuentes Villatoro, GAGE) ondansetron ODT (ZOFRAN-ODT) disintegrating tablet 4 mg(Linked Group 1) 4 mg, oral, Every 6 hours PRN, nausea, vomiting, Starting on Mon05/17/24 at 1716, Indications: nausea and vomiting 0558 (See Alternative - Provider: Darline Patel, GAGE)1210 (Given - Provider: Jose De Jesus Brown, GAGE)194 (See Alternative - Provider: Emily Vizcarra, GAGE) 140 (See Alternative - Provider: Fuentes Villatoro, GAGE) [...] Count Last Ordered Date First Ordered Date famotidine (PEPCID) injection 20 mg 1 05/19 aluminum-magnesium hydroxide -simethicone (MAALOX) 40-40-4 mg/mL oral suspension 30 mL 1 05/18/2024 calcium carbonate (TUMS) jak wable tablet 500 mg 1 05/18/2024 guaiFENesin ER (MUCINEX) ext ended release tablet 600 mg 1 05/18/[address] (PROTONIX) e xtended release tablet 40 mg 2 05/18/2024 sodium chloride 0.9% infusion 1 05/18/2024 acetaminophen (TYLENOL) tablet 1,000 mg 1 0 05/17/2024 albuterol 2.5 mg /3 mL (0.08 3 %) nebulizer solution 2.5 mg 1 05/17/2024 albuterol HFA (PROVENTIL HFA ,VENTOLIN HFA,PROAIR HFA) 90 mcg/actuation inhaler 2 puff 2 05/17/2024 Carrier Fluids for Secondary Infusion - 0.9% Sodium Chloride 1 05/17/2024 ceFAZolin (ANCEF) 2,000 mg/2 0 mL in sterile water (premix) 2,000 mg 1 05/17/2024 dextrose (D10W) 10% bolus 250 mL 2 05/17/20 24 dextrose (GLUTOSE) 40 % gel 15 g 1 05/17/20 24 dextrose 5% and sodium chlor renee 0.45% infusion (premix) 1 05/17/2024 dimenhyDRINATE (DRAMAMINE) tablet 25 mg 1 0 05/17/2024 diphenhydrAMINE (BENADRYL) 5 0 mg/mL injection 12.5 mg 1 05/17/2024 docusate sodium (COLACE) capsule 100 mg 1 0 05/17/2024 fentaNYL (SUBLIMAZE) preserv ative free injection 25 mcg 1 05/17/2024 fentaNYL (SUBLIMAZE) preserv ative free injection 50 mcg 1 05/17/2024 gabapentin (NEURONTIN) capsule 300 mg 1 06/2024 glucagon injection 1 mg 1 05/17/2024 haloperidol (HALDOL) injection 1 mg 1 05/17 heparin 5,000 unit/mL inject ion 5,000 Units 2 05/17/2024 HYDROcodone-acetaminophen (N ORCO) 5-325 mg per tablet 1 tablet 1 05/17/2024 HYDROmorphone (DILAUDID) injection 0.2 mg 1 05/17/2024 HYDROmorphone (DILAUDID) injection 0.4 mg 1 05/17/2024 insulin lispro (HumaLOG, ADM ELOG) 100 unit/mL injection 0-5 Units 1 05/17/2024 labetaloL (NORMODYNE,TRANDAT E) injection 5 mg 1 05/17/2024 Lactated Ringer's (LR) infusion 1 levoFLOXacin (LEVAQUIN) tablet 500 mg 1 06/2024 lidocaine (PF) (XYLOCAINE) 1 0 mg/mL (1 %) preservative free injection 2-10 mg 1 05/17/2024 lidocaine in dextrose 5% 2 g /250 mL (8 mg/mL) infusion (premix) 1 05/17/2024 meperidine (DEMEROL) preserv ative free injection 12.5 mg 1 05/17/2024 metoprolol XL (TOPROL-XL) ex tended release tablet 50 mg 1 05/17/2024 morphine injection 2 mg 1 05/17/2024 naloxone (NARCAN) 0.4 mg/mL injection 0.04-0.4 mg 1 05/17/2024 ondansetron (ZOFRAN) injection 4 mg 2 05/17 ondansetron ODT (ZOFRAN-ODT) disintegrating tablet 4 mg 1 05/17/2024 oxyCODONE (ROXICODONE) tablet 5 mg 1 2023 racepinephrine (ASTHMANEFRIN ) 2.25 % nebulizer solution 0.5 mL 1 05/17/2024 scopolamine patch 72 hour 1 patch 1 024 sodium chloride 0.9% flush 0.5-20 mL 1 06/2024 Diet Count Last Ordered Date First Orde [...] 05/20/2024 documented in this encounter Care Teams Life Insurance Salesperson Relationship Specialty Start Date End Date Karson Forbes MD [address] [place] [address] PCP - General Family Medicine 11/23/23 Phoenix Loredo MD Consulting Physician Cardiology 01/04/19 [place] [address] [place] [address] Lime Kiln Worker Obstetrics and Gynecology 04/19/21 [place] [address] [place] [address] Consulting Physician Urology 05/17/24 documented as of this encounter
--- OUTSIDE RECORDS SUMMARY | 2024-10-13 04:05 | XMS_ITS | Encounter Summary ---
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, unspecified laterality (HCC) Ho Phan MD [address] [facility] [place] [address] Phone: tel: fax: [facility] Cancer Genetics Department [address] [place] [address] Phone: tel: fax: Referral ID Status Reason Start Date Expiration Date Visits Requested Visits Authorized [id number] Pending Review Specialty Services Required 06/17/2024 07/17/2025 1 1 Question Answer Please select the performing region: [facility] [[id number]] Please select the performing department: [facility] CANCER GENETICS [[id number]] # of visits: 1 Reason for Visit * Consultation (Routine) - Pending Review Specialty Diagnoses / Procedures Referred By Denton t Referred To Contact Oncology Diagnoses 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, unspecified laterality (HCC) [place] [address] [place] [address] Phone: tel: fax: Ho Phan MD [address] [place] [address] Phone: tel: fax: Referral ID Status Reason Start Date Expiration Date Visits Requested Visits Authorized [id number] Pending Review Specialty Services Required 06/03/2024 07/03/2025 1 1 Encounter Details Date Type Department Care Team (Late st Contact Info) Description 06/17/2024 2:30 PM CDT Office Visit [facility] [address] [place] [address] Ho Phan MD [address] [place], [place] [id number] 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 More than 4 times per year [...] any time in the past 12 m [facility], were you homeless or living in a retirement (including now)? 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 Gender Identity Not on file Sexual Orientation Not on file documented as of this encounter Last Filed Vital Signs Vital Sign Reading Time Taken Comments Blood Pressure 120/70 06/17/2024 2:18 PM CDT Pulse 64 06/17/2024 2:18 PM CDT Temperature 36 ??C (96.8 ??F) 06/17/2024 2:18 PM CDT Respiratory Rate 18 06/17/2024 2:18 PM CDT Oxygen Saturation 100% 06/17/2024 2:18 PM CDT Inhaled Oxygen Concentration - - Weight 63.2 kg (139 lb 4.8 oz) 06/17/2024 2:18 P M CDT Height 154.9 cm (5' 1 ) 06/17/2024 2:18 PM CDT Body Mass Index 26.32 06/17/2024 2:18 PM CDT documented in this encounter Progress Notes * Ho Phan MD - 06/17/2024 2:[address] [facility] Medical Oncology Consultation Note Referring Physicians: Daniel Last Reason for Consultation: Left Renal Pelvis Cancer History of Present Illness: Ms. Cherry is a 59 y.o. female with history of smoking, vascular disease, and recently resected left renal pelvis cancer presents for an initial consultation. She initiallywas noted on imaging on March 11, 2024 to have a 2.7 cm left renal pelvis mass. Staging revealed no clear metastatic disease and on April 18, 2024 she underwent a ureteroscopy performed by [facility]. [facility] which revealed papillary lesions in the mid upper and lower pole of the left renal pelvis. On May 17, 2024 she underwent an R0 left nephro ureterectomy revealing a 2.3 cm high-grade papillary urothelial carcinoma arising in the renal pelvis and invading the parenchyma, pathologic T3 N0=Stage III with lymphovascular invasion and associated CIS. Postoperatively, she has been doing well. Incisions are healed. She has returned to working. She presents today anticipating discussion regarding adjuvant chemotherapy. She admits she is leery of toxicities of treatment. She is uncert ain she is willing to drive this far for treatment and follow-up. She denies baseline peripheral neuropathy. She does have difficulty with hearing and latter rooms. She suspects she may need hearing aids. She has not had formal audiology testing. Allergies: Allergies Allergen Reactions Adhesive Itching, Rash and Blisters Adhesive Tape-Silicones Itching, Rash and Blisters Other Itching, Rash and Blisters Metals Codeine Nausea only Povidone-Iodine Itching Medications: Current Outpatient Medications: albuterol HFA (PROVENTIL HFA,VENTOLIN HFA,PROAIR HFA) 90 mcg/actuation inhaler atorvastatin (LIPITOR) 40 mg tablet Bacillus coagulans (PROBIOTIC, B. COAGULANS, ORAL) clopidogreL (PLAVIX) 75 mg tablet coenzyme Q10 200 mg capsule fluticasone propionate (FLONASE) 50 mcg/actuation nasal spray furosemide (LASIX) 20 mg tablet HYDROcodone-acetaminophen (NORCO) 5-325 mg per tablet metoprolol XL (TOPROL-XL) 50 mg extended release tablet multivitamin tablet pantoprazole DR (PROTONIX) 40 mg EC tablet SUMAtriptan (IMITREX) 50 mg tablet Past Medical History: Urothelial carcinoma of the left renal pelvis Unilateral Lobular carcinoma in situ of the breast treated with bilateral mastectomy at [facility] in 2018 Peripheral vascular disease status post stenting Asthm/COPD GERD Hyperlipidemia Family History: Maternal aunt with ovarian cancer at age 55. Paternal aunt with brain cancer, paternal aunt with lymphoma, father with head neck cancer. Social History: She is single and lives with her 25-year-old son. She has 2 adult sons. She actively smokes and hassmoked around 1 pack per day throughout adulthood. She works from home. She drives and takes care of herself in her home. She does not exercise regularly Review of Systems: As per history of present illness, otherwise all other systems are reviewed and negative. Physical Examination: BP 120/70 Pulse 64 Temp 36 ??C (96.8 ??F) Resp 18 Ht 154.9 cm (5' 1 ) Wt 63.2 kg (139 lb 4.8 oz) LMP (LMP Unknown) SpO2 100% BMI 26.32 kg/m?? ECOG Performance Status: 1 General- Alert and Oriented, No apparent distress HEENT- No scleral icterus Neck- normal ROM Lungs- Symmetric Expansion Abdomen- Nondistended Extremities- Symmetric without edema Neurologic- Stable gait Psychiatric- Pleasant, at baseline Lab and Xray Data: The following laboratories were reviewed: Lab Results Component Value Date WBC 9.8 05/23/2024 HGB 11.5 (L) 05/23/2024 HCT 33.0 (L) 05/23/2024 MCV 89.2 05/23/2024 Lab Results Component Value Date NEUTROABS 5.9 05/23/2024 CMP with a creatinine of 1.27 most recently calcium 8.5 bilirubin 0.2 normal transaminases alk-phos62. EGFR postoperatively has ranged from 48-66. Surgical pathology from recent resection revealed a 2.3 cm pathologic T3 N0 or stage III grade 3 papillary urothelial carcinoma of the renal pelvis with lymphovascular invasion and carcinoma in situ present. CT scan of the chest on May 21, 2024 revealed no evidence of metastatic disease. Most recent body imaging was on March 11 and revealed no clear metastases with a 2.7 cm renal pelvis mass that appeared to be invading the renal parenchyma. Assessment and Plan: Ms. Cherry is a 59-year-old woman with stage III left renal pelvis urothelial carcinoma who presentsfor a scheduled follow-up visit. -I reviewed with Ms. Cherry her medical history, laboratory, imaging, operative, and pathologic findings. We discussed the natural history of resected high- grade urothelial carcinoma of the renal pelvis. We discussed the proven benefits of adjuvant chemotherapy with cisplatin or carboplatin plus gemcitabine and we reviewed together some of the data from the POUT trial. Given her reduced EGFR and underlying hearing loss substituting carboplatin would be reasonable we discussed this could unfavorably impact efficacy. -we discussed logistics and potential toxicities of this therapy including fatigue, allergic reaction, extravasation, infection, bleeding, transfusion requirement, nausea, vomiting, alopecia, peripheral neuropathy, hearing loss, tinnitus, kidney injury, electrolyte abnormalities, pneumonitis, respiratory failure, secondary malignancy, thrombosis, thrombotic microangiopathy, volume overload/capillary leak syndrome and . We discussed these are not the only potential toxicities and some can be severe, irreversible, or life-threatening. -We discussed alternatives including surveillance alone and adjuvant nivolumab. We discussed the emerging role for ctDNA surveillance and the uncertainty surrounding how best to incorporate this in treatment decision making. -we discussed the potential role for Port-A-Cath placement versus peripheral treatment. I suggestednew baseline laboratories to assess renal function as well as new baseline abdomen and pelvis imaging before adjuvant treatment is pursued. -I suggested she meet with a genetic counselor given her personal and family history of malignancies. -we discussed that after adjuvant treatment or if adjuvant treatment is not pursued she should still follow with surveillance with quarterly imaging and cystoscopic evaluation. -after our discussion, she would like to take some time to consider her options. She is openly considering all options including foregoing treatment or seeking care closer to home. All of her questions were answered. We did not arrange follow-up as she preferred to call us after she has made a decision on whether and where to pursue adjuvant treatment. Clinic contact information was provided. I spent over 90 minutes reviewing records today and face to face with Champ Dilip. Ho Phan MD 06/17/2024 1:52 PM documented in this encounter Plan of Treatment Upcoming Encounters Date Type Department Care Team (Late st Contact Info) Description 02/04/2025 9:30 AM CDT Hospital Encounter [address] [address] Vic Gaines, DO [address] [address] 02/04/2025 9:30 AM CDT - 02/04/2025 10:00 AM CDT Surgery [address] [address] Vic Gaines, DO 3 [facility] [address] COLONOSCOPY Scheduled Procedures Name Priority Associated Diagnoses Date/Ti pr COLONOSCOPY Encounter for screening colonoscopy 02/04/2025 9:30 AM CDT Scheduled Referrals Name Type Priority Associated Diagnoses Orde r Schedule Ambulatory referral to Cancer Genetics Counseling Outpatient Referral Routine 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, unspecified laterality (HCC) Expected: 06/18/2024 (Approximate), Expires: 06/17/2025 documented as of this encounter Results * (ABNORMAL) Comprehensive metabolic panel (06/17/2024 3:43 PM CDT) Sodium 137 135 - 145 mmol/L Potassium, pl 5.1(H) 3.3 - 4.9 mmol/L [facility] Chloride 103 97 - 110 mmol/L [facility] CO2 23 22 - 32 mmol/L [facility] Anion gap 11 2 - 15 mmol/L [facility] BUN 15 6 - 25 mg/dL [facility] Creatinine 1.11(H) 0.60 - 1.10 mg/dL [facility] Glucose 91 70 - 199 mg/dL [facility] Comment: Interpretive Data Fasting glucose [...] interpretive data was last revised 2022. Calcium 10.0 8.5 - 10.3 mg/dL [facility] Bilirubin, total 0.3 0.1 - 1.2 mg/dL [facility] Protein, pl 7.3 6.5 - 8.5 g/dL [facility] Albumin 4.3 3.5 - 5.0 g/dL [facility] Alk phos 103 40 - 130 Units/L [facility] ALT 25 7 - 45 Units/L [facility] AST 18 10 - 45 Units/L [facility] Blood 06/17/2024 3:43 PM CDT 06/17/2024 3:58 PM CDT Ho Phan MD LAB BLOOD ORDERABLES Final R esult Performing Organization Address [facility] [[email or web address]] Co de Phone Number [facility] [address] [facility] [place] [address] * CBC with auto differential (06/17/2024 3:43 PM CDT) [facility] Signature WBC 9.0 3.8 - 9.9 K/cumm Hgb 14.0 11.9 - 15.5 g/dL [facility] Hct 41.2 35.6 - 45.5 % [facility] Plt 240 150 - 400 K/cumm [facility] MPV 9.4 9.1 - 12.3 fL [facility] RBC 4.58 3.90 - 5.20 M/cumm [facility] MCV 90.0 81.3 - 96.4 fL [facility] MCH 30.6 27.1 - 33.3 pg [facility] MCHC 34.0 32.3 - 35.7 g/dL [facility] RDW CV 13.1 11.1 - 14.9 % [facility] RDW SD 42.8 35.7 - 48.1 fL [facility] NRBC abs 0.00 0.00 - 0.01 K/cumm [facility] Blood 06/17/2024 3:43 PM CDT 06/17/2024 3:43 PM CDT Ho Phan MD LAB BLOOD ORDERABLES Final R esult Performing Organization Address City/[facility]/ZIP Co de Phone Number [facility] [address] [facility] [employer] [place], [place] [id number] documented in this encounter Visit Diagnoses Diagnosis 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, unspecified laterality (HCC) Encounter for screening colonoscopy documented in this encounter Orders Outpatient Referral Count Last Ordered Date Fir st Ordered Date AMB REFERRAL TO ONCOLOGY 1 06/17/2024 documented in this encounter Care Teams Drier Tender Relationship Specialty Start Date End [place] [address] PCP - General Family Medicine 11/23/23 Phoenix Loredo MD Consulting Physician Cardiology 01/04/19 [place] [address] [place], [place] [id number] Animal Shelter Clerk Obstetrics and Gynecology 04/19/21 [place] [address] [place] [address] Consulting Physician Urology 05/17/24 Ho Phan MD [address] [place] [address] Medical Oncologist/Power Equipment Mechanics Instructor Hematology and Oncology 06/04/24 documented as of this encounter
--- OUTSIDE RECORDS SUMMARY | 2024-10-13 04:05 | XMS_ITS | Encounter Summary ---
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) History of breast cancer Family history of throat cancer Family history of ovarian cancer Family history of lymphoma Family history of kidney cancer Family history of stomach cancer Family history of brain tumor Family history of skin cancer Family history of lung cancer Procedures [facility] Multi-Cancer panel +RNA - Miscellaneous Test Ho Phan MD [address] [place] [address] Phone: tel: fax: Referral ID Status Reason Start Date Expiration Date V isits Requested Visits Authorized [id number] Pending Review 07/17/2024 08/16/2025 1 1 Encounter Details Date Type Department Care Team (Late st Contact Info) Description 07/17/2024 Orders Only [facility] Cancer Genetics Department [address] [place] [phone] Domonique Moody MS Transitional cell carcinoma of [...] skin cancer; Family history of lung cancer Social History Tobacco Use Types Packs/Day Years Used Date Smoking Tobacco: Former Cigarettes 1 45 S tarted: 1979 Passive Smoke Exposure: Past Smokeless Tobacco: Never Alcohol Use Standard Drinks/Week Comments No 0 (1 standard drink = 0.6 oz pur e alcohol) [facility] Utilities Answer Date Recorded In the past 12 months has [employer], gas, oil, or water [employer] threatened to shut off services in your [...] often do you attend chur ch or episcopal services? More than 4 times per year 05/22/2024 Do you belong to any clubs o r organizations such as oriental orthodox groups, unions, fraternal or athletic groups, or [...] were you homeless or living in a [place] health [place] facility (including now)? 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 Gender Identity Not on file Sexual Orientation Not on file documented as of this encounter Plan of Treatment Upcoming Encounters Date Type Department Care Team (Late st Contact Info) Description 02/04/2025 9:30 AM CDT Hospital Encounter [facility] [address] [place] [address] Vic Gaines, DO 3 [facility] [address] [place] [address] 02/04/2025 9:30 AM CDT - 02/04/2025 10:00 AM CDT Surgery [facility] [address] [place] [address] Vic Gaines, DO 3 [facility] [address] [place] [address] COLONOSCOPY Scheduled Orders Name Type Priority Associated Diagnoses Orde r Schedule [facility] Multi-Cancer panel +RNA - Miscellaneous Test Lab Routine Lobular carcinoma in situ (LCIS) 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) History of breast cancer Family history of throat cancer Family history of ovarian cancer Family history of lymphoma Family history of kidney cancer Family history of stomach cancer Family history of brain tumor Family history of skin cancer Family history of lung cancer Expected: 07/17/2024 (Approximate), Expires: 07/17/2025 Scheduled Procedures Name Priority Associated Diagnoses Date/Ti me COLONOSCOPY Encounter for screening colonoscopy 02/04/2025 9:30 AM CDT documented as of this encounter Visit Diagnoses Diagnosis Encounter for screening colonoscopy- Primary 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)- Primary Lobular carcinoma in situ (LCIS) of right breast History of breast cancer Personal history of malignant neoplasm of breast Family history of throat cancer Family history of malignant neoplasm of gastrointestinal tract Family history of ovarian cancer Family history of malignant neoplasm of ovary Family history of lymphoma Family history of other lymphatic and hematopoietic neoplasms Family history of kidney cancer Family history of malignant neoplasm of kidney Family history of stomach cancer Family history of malignant neoplasm of gastrointestinal tract Family history of brain tumor Family history of other condition Family history of skin cancer Family history of other specified malignant neoplasm Family history of lung cancer Family history of malignant neoplasm of trachea, bronchus, and lung Encounter for screening colonoscopy documented in this encounter Care Teams Music Researcher Relationship Specialty Start Date End [place] [address] PCP - General Family Medicine 11/23/23 Phoenix Loredo MD Consulting Physician Cardiology 01/04/19 [place] [address] [place] [address] Pilot Safety Inspector Obstetrics and Gynecology 04/19/21 [place] [address] [address] Consulting Physician Urology 05/17/24 Ho Phan MD [address] [place] [address] Medical Oncologist/Supervisor Cooler Service Hematology and Oncology 06/04/24 documented as of this encounter
--- OUTSIDE RECORDS SUMMARY | 2024-10-13 04:05 | XMS_ITS | Encounter Summary ---
Author Organization [facility] Healthcare Address [address] [place] [address] Care Team Providers Care Glazier Structural Glass Name Role Phone Phoenix Loredo MD Unavailable [phone] Aylin Lundy MD Unavailable Karson Forbes MD Primary Care Provider [phone] Daniel Last MD Unavailable [phone] Ho Phan MD Unavailable [phone] Encounter Details Date Type Department Care Team (Late st Contact Info) Description 07/09/2024 Orders Only [facility] Health Information Management [address] [place] [address] Karson Forbes MD [address] [place] [address] Social History Tobacco Use Types Packs/Day Years Used Date Smoking Tobacco: Former Cigarettes 1 45 S tarted: 1979 Passive Smoke Exposure: Past Smokeless Tobacco: Never Alcohol Use Standard Drinks/Week Comments No 0 (1 standard drink = 0.6 oz pur e alcohol) [facility] Utilities Answer Date Recorded In the past 12 months has [employer], gas, oil, or water [employer] threatened to shut off services in your [...] any clubs o r organizations such as spiritism groups, unions, fraternal or athletic groups, or [...] were you homeless or living in a usp (including now)? 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 Gender Identity Not on file Sexual Orientation Not on file documented as of this encounter Plan of Treatment Upcoming Encounters Date Type Department Care Team (Late st Contact Info) Description 02/04/2025 9:30 AM CDT Hospital Encounter [address] [address] Vic Gaines, DO 3 [facility] [place] [address] [place] [address] 02/04/2025 9:30 AM CDT - 02/04/2025 10:00 AM CDT Surgery [address] [address] Vic Gaines, DO 3 [facility] [place] [address] [place] [address] COLONOSCOPY Scheduled Procedures Name Priority Associated Diagnoses Date/Ti me COLONOSCOPY Encounter for screening colonoscopy 02/04/2025 9:30 AM CDT documented as of this encounter Procedures Procedure Name Priority Date/Time Associated Diagnosis Comments SCAN - LABS 07/09/2024 documented in this encounter Results * SCAN - LABS (07/09/2024) us Karson Forbes MD Final Res ult documented in this encounter Visit Diagnoses Not on filedocumented in this encounter Care Teams Glazier Structural Glass Relationship Specialty Start Date End Date Karson Forbes MD [address] [place] [address] PCP - General Family Medicine 11/23/23 Phoenix Loredo MD Consulting Physician Cardiology 01/04/19 [place] [address] [place] [address] Hospitality Housekeeper Obstetrics and Gynecology 04/19/21 [place] [address] [place] [address] Consulting Physician Urology 05/17/24 Ho Phan MD [address] [place] [address] Medical Oncologist/Field Radio Technician Hematology and Oncology 06/04/24 documented as of this encounter
--- OUTSIDE RECORDS SUMMARY | 2024-10-13 04:05 | XMS_ITS | Encounter Summary ---
Author Organization [facility] Healthcare Address [address] [place] [address] Care Team Providers Care Ammonia Box Tender Name Role Phone Phoenix Loredo MD Unavailable [phone] Aylin Lundy MD Unavailable [phone] Karson Forbes MD Primary Care Provider [phone] Daniel Last MD Unavailable [phone] Ho Phan MD Unavailable [phone] Encounter Details Date Type Department Care Team (Late st Contact Info) Description 07/10/2024 Telephone [facility] Medical Group Gastroenterology at [address] [place] [address] Vic Gaines, DO [address] [address] Social History Tobacco Use Types Packs/Day Years Used Date Smoking Tobacco: Former Cigarettes 1 45 S tarted: 1979 Passive Smoke Exposure: Past Smokeless Tobacco: Never Alcohol Use Standard Drinks/Week Comments No 0 (1 standard drink = 0.6 oz pur e alcohol) [facility] Utilities Answer Date Recorded In the past 12 months has [employer], gas, oil, or water company threatened [...] often do you attend chur ch or cheondoism services? More than 4 times per year 05/22/2024 Do you belong to any clubs o r organizations such as temple groups, unions, fraternal or athletic groups, or [...] any time in the past 12 m [facility], were you homeless or living in a residential (including now)? 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 Cherry is scheduled for a colonoscopy on 09-25-2024 @ 7:30 am Last colonoscopy: 10 years Family history colon cancer (if yes, relationship to pt): no Personal history colon polyps or colon cancer: no Pt on blood thinner (if yes, list medication and reason for taking): Plavix Has pt had recent stent placement within the last year: no Pt have pacemaker/defibrillator: no Pt diabetic (if yes, insulin or oral meds): no Pt takes injections for weight loss: no Pt have kidney disease or on dialysis: Pt has one kidney Pt on iron: no Hx of Constipation: no Mechanical Heart valve: no Instructed pt to call with any medical changes and/or medications/insurance. documented in this encounter Plan of Treatment Upcoming Encounters Date Type Department Care Team (Late st Contact Info) Description 02/04/2025 9:30 AM CDT Hospital Encounter [facility] [address] [place] [address] Vic Gaines, DO [address] [address] 02/04/2025 9:30 AM CDT - 02/04/2025 10:00 AM CDT Surgery [facility] [address] [place] [address] Vic Gaines, DO 3 [facility] [address] [place] [address] COLONOSCOPY Scheduled Procedures Name Priority Associated Diagnoses Date/Ti me COLONOSCOPY Encounter for screening colonoscopy 02/04/2025 9:30 AM CDT documented as of this encounter Visit Diagnoses Diagnosis Encounter for screening colonoscopy- Primary Encounter for screening colonoscopy- Primary Encounter for screening colonoscopy documented in this encounter Orders Case Request Count Last Ordered Date First Orde red Date CASE REQUEST GI 1 07/10/2024 documented in this encounter Care Teams Ammonia Box Tender Relationship Specialty Start Date End Date Karson Forbes MD [address] [place] [address] PCP - General Family Medicine 11/23/23 Phoenix Loredo MD Consulting Physician Cardiology 01/04/19 [place] [address] [place] [address] Advanced Manager Obstetrics and Gynecology 04/19/21 [place] [address] [place] [address] Consulting Physician Urology 05/17/24 Ho Phan MD [address] [place] [address] Medical Oncologist/Community Artist Hematology and Oncology 06/04/24 documented as of this encounter
--- OUTSIDE RECORDS SUMMARY | 2024-10-13 04:05 | XMS_ITS | Encounter Summary ---
Author Organization [facility] Healthcare Address [address] [place] [address] Care Team Providers Care Residential Concierge Name Role Phone Phoenix Loredo MD Unavailable [phone] Aylin Lundy MD Unavailable [phone] Karson Forbes MD Primary Care Provider [phone] Daniel Last MD Unavailable [phone] Ho Phan MD Unavailable [phone] Encounter Details Date Type Department Care Team (Latest Contact Info) Description 06/24/2024 9:32 AM CDT - 06/24/2024 11:59 PM CDT Hospital Encounter [facility] [id number] [place] [address] Need for hepatitis B screening test; Mixed hyperlipidemia Discharge Disposition: Discharge to home or self care Social History Tobacco Use Types Packs/Day Years Used Date Smoking Tobacco: Former Cigarettes 1 45 S tarted: 1979 Passive Smoke Exposure: Past Smokeless Tobacco: Never Alcohol Use Standard Drinks/Week Comments No 0 (1 standard drink = 0.6 oz pur e alcohol) [facility] Utilities Answer Date Recorded In the past [...] often do you attend chur ch or latter-day services? 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 9 tablet 3 06/21/2023 amoxicillin-clavu lanate (AUGMENTIN) 875-125 mg per tablet Take 1 tablet by mouth 2 (two) times a day for 10 days 20 tablet 06/24/2024 4 clopidogreL (PLAVIX) 75 mg tablet Take 1 tablet (75 mg total) by mouth every morning Last dose 05/10/2024 Start taking it tomorrow 05/21/2024 05/20/2024 4 documented as of this encounter Discharge Disposition Disposition Code Departure Means Destination Discharge to home or self care documented in this encounter Plan of Treatment Upcoming Encounters Date Type Department Care Team (Late st Contact Info) Description 02/04/2025 9:30 AM CDT Hospital Encounter [address] [address] Vic Gaines, DO 3 [facility] [place] [address] [place] [address] 02/04/2025 9:30 AM CDT - 02/04/2025 10:00 AM CDT Surgery [address] [address] Vic Gaines, DO 3 [facility] [place] [address] [place] [address] COLONOSCOPY Scheduled Procedures Name Priority Associated Diagnoses Date/Ti me COLONOSCOPY Encounter for screening colonoscopy 02/04/2025 9:30 AM CDT documented as of this encounter Procedures Procedure Name Priority Date/Time Associated Diagnosis Comments EGFR Routine 06/24/2024 9:32 AM CDT Mixed hyperlipidemia DIFFERENTIAL AUTO Routine 06/24/2024 9:3 2 AM CDT Mixed hyperlipidemia CBC WITH AUTO DIFFERENTIAL Routine 06/24/2024 9:32 AM CDT Mixed hyperlipidemia HEPATITIS B CORE ANTIBODY, TOTAL Routine 06/24/2024 9:32 AM CDT Need for hepatitis B screening test HEPATITIS B SURFACE ANTIBODY (IMMUNE STATUS) Routine 06/24/2024 9:32 AM CDT Need for hepatitis B screening test HEPATITIS B SURFACE ANTIGEN Routine 06/24/2024 9:32 AM CDT Need for hepatitis B screening test LIPID PANEL Routine 06/24/2024 9:32 AM CDT Mixed hyperlipidemia COMPREHENSIVE METABOLIC PANEL Routine 06/24/2024 9:32 AM CDT Mixed hyperlipidemia documented in this encounter Results * (ABNORMAL) eGFR (06/24/2024 9:32 AM CDT) eGFR 54(L) >=60 mL/min/1. 73 m2 Comment: Interpretive Data [...] interpretive data was last reviewed 2021. Blood 06/24/2024 9:32 AM CDT 06/24/2024 3:05 PM CDT us Karson Forbes MD LAB BLOOD ORDERABLES Ivette get Result [facility] [address] Department [place] [address] * Differential, auto (06/24/2024 9:32 AM CDT) Neutrophil abs 4.2 1.5 - 6.5 K/cumm Imm gran abs 0.0 0.0 - 0.1 K/cumm [facility] Lymphocyte abs 2.1 0.8 - 3.3 K/cumm [facility] Monocyte abs 0.5 0.2 - 0.8 K/cumm [facility] Eosinophil abs 0.2 0.0 - 0.5 K/cumm [facility] Basophil abs 0.0 0.0 - 0.1 K/cumm [facility] Neutrophil pct 59.4 % [facility] Comment: Interpretive Data Percent cell count reference ranges are not reported, since discordance with absolute values may lead to misinterpretation of CBC data. Current Interpretive Data was last revised on 2018. Imm gran pct 0.3 % [facility] Comment: Interpretive Data Percent cell count reference ranges are not reported, since discordance with absolute values may lead to misinterpretation of CBC data. Current Interpretive Data was last revised on 2018. Lymphocyte pct 29.9 % [facility] Comment: Interpretive Data Percent cell count reference ranges are not reported, since discordance with absolute values may lead to misinterpretation of CBC data. Current Interpretive Data was last revised on 2018. Monocyte pct 7.4 % [facility] Comment: Interpretive Data Percent cell count reference ranges are not reported, since discordance with absolute values may lead to misinterpretation of CBC data. Current Interpretive Data was last revised on 2018. Eosinophil pct 2.6 % [facility] Comment: Interpretive Data Percent cell count reference ranges are not reported, since discordance with absolute values may lead to misinterpretation of CBC data. Current Interpretive Data was last revised on 2018. Basophil pct 0.4 % [facility] Comment: Interpretive Data Percent cell count reference ranges are not reported, since discordance with absolute values may lead to misinterpretation of CBC data. Current Interpretive Data was last revised on 2018. Blood 06/24/2024 9:32 AM CDT 06/24/2024 2:59 PM CDT us Karson Forbes MD LAB BLOOD ORDERABLES Ivette deutsch Result [facility] [address] Department [place] [address] * Lipid panel (06/24/2024 9:32 AM CDT) Cholesterol 161 30 - 199 mg/dL Comment: Interpretive Data Ages < or = 19 years ??Acceptable: ? <170 mg/dL ??Borderline high: ??170-199 mg/dL ??High: ? >or= 200 mg/dL Ages > or = 20 years ??Desirable: ?<200 mg/dL ??Borderline high: ??200-239 mg/dL ??High: ? >or= 240 mg/dL Literature References: 1. Expert Panel on Integrated Guidelines for Cardiovascular Health and Risk Reduction in Children and Adolescents. Pediatrics 2011;128:S213 2. NCEP Expert Panel. Circulation 2004;110:227 Current Interpretive Data was last revised on 2018. Triglycerides 112 <=149 mg/dL [facility] C[facility] Comment: Interpretive Data Ages < or = 9 years ??Acceptable: ? <75 mg/dL ??Borderline high: ??75-99 mg/dL ??High: ? >or= 100 mg/dL Ages 10 to 20 years ??Acceptable: ? <90 mg/dL ??Borderline high: ??90-129 mg/dL ??High: ? >or= 130 mg/dL Ages > or = 20 years ??Desirable: ?<150 mg/dL ??Borderline high: ??150-199 mg/dL ??High: ? 200-499 mg/dL ?Very high: ?? >or= 499 mg/dL Literature References: 1. Expert Panel on Integrated Guidelines for Cardiovascular Health and Risk Reduction in Children and Adolescents. Pediatrics 2011;128:S213 2. NCEP Expert Panel. Circulation 2004;110:227 Current Interpretive Data was last revised on 2018. HDL 46 >=40 mg/dL [facility] Comment: Interpretive Data Ages < or = 19 years ??Acceptable: ? >45 mg/dL ??Borderline low: ?? 40-45 mg/dL ??Low: ? <40 mg/dL Ages > or = 20 years ??Desirable: ?>or= 60 mg/dL ??Low: ? <40 mg/dL Literature References: 1. Expert Panel on Integrated Guidelines for Cardiovascular Health and Risk Reduction in Children and Adolescents. Pediatrics 2011;128:S213 2. NCEP Expert Panel. Circulation 2004;110:227 Current Interpretive Data was last revised on 2018. LDL, calculated 95 <=129 mg/dL JAY Comment: Interpretive Data Ages < or = 19 years ??Acceptable: ? <110 mg/dL ??Borderline high: ??110-129 mg/dL ??High: ?>or= 130 mg/dL Ages > or = 20 years ??Optimal: ? <100 mg/dL ??Near optimal: ?100-129 mg/dL ??Borderline high: ?? 130-159 mg/dL ??High: ?>160 mg/dL Calculated using the Dariusz LDL-C estimating equation. This equation was implemented on 2024. Prior to this date LDL-C was estimated using the Friedewald equation. Literature References: 1. Expert Panel on Integrated Guidelines for Cardiovascular Health and Risk Reduction in Children and Adolescents. Pediatrics 2011;128:S213 2. NCEP Expert Panel. Circulation 2004;110:227 3. Dariusz Agarwal al. ADOLFO Cardiol. 2020 February 06;5(5):540-548. doi: 10.1001/jamacardio.2020.0013 Current Interpretive Data was last revised on 2024. Non-HDL Cholesterol 115 mg/dL JAY Comment: Interpretive Data Ages < or = 19 years ??Acceptable: ?<120 mg/dL ??Borderline high: ??120-144 mg/dL ??High: ?>145 mg/dL Ages > or = 20 years ??When triglycerides are >200 mg/dL, Non-HDL cholesterol is a secondary target of ? therapy with treatment goals that are 30 mg/dL greater than the LDL cholesterol target. ? Literature References: 1. Expert Panel on Integrated Guidelines for Cardiovascular Health and Risk Reduction in Children and Adolescents. Pediatrics 2011;128:S213 2. NCEP Expert Panel. Circulation 2004;110:227 Current Interpretive Data was last revised on 2018. Chol/HDL ratio 4 [facility] Blood 06/24/2024 9:32 AM CDT 06/24/2024 2:59 PM CDT us Karson Forbes MD LAB BLOOD ORDERABLES Ivette deutsch Result [facility] [address] Department [place] [address] * CBC with auto differential (06/24/2024 9:32 AM CDT) WBC 7.1 3.8 - 9.9 K/cumm Hgb 13.9 11.9 - 15.5 g/dL [facility] Hct 41.4 35.6 - 45.5 % [facility] Plt 249 150 - 400 K/cumm [facility] MPV 10.1 9.1 - 12.3 fL [facility] RBC 4.47 3.90 - 5.20 M/cumm [facility] MCV 92.6 81.3 - 96.4 fL [facility] MCH 31.1 27.1 - 33.3 pg [facility] MCHC 33.6 32.3 - 35.7 g/dL [facility] CH RDW CV 13.2 11.1 - 14.9 % [facility] CH RDW SD 45.2 35.7 - 48.1 fL [facility] NRBC abs 0.00 0.00 - 0.01 K/cumm [facility] Blood 06/24/2024 9:32 AM CDT 06/24/2024 2:59 PM CDT us Karson Forbes MD LAB BLOOD ORDERABLES Ivette deutsch Result [facility] [address] Department [place] [address] * (ABNORMAL) Comprehensive metabolic panel (06/24/2024 9:32 AM CDT) Sodium 141 135 - 145 mmol/L Potassium, pl 5.0(H) 3.3 - 4.9 mmol/L [facility] CH Chloride 107 97 - 110 mmol/L [facility] CH CO2 24 22 - 32 mmol/L [facility] CH Anion gap 10 2 - 15 mmol/L [facility] CH BUN 11 6 - 25 mg/dL [facility] Creatinine 1.16(H) 0.60 - 1.10 mg/dL [facility] Glucose 95 70 - 199 mg/dL [facility] Comment: Interpretive Data Fasting glucose >/= 126 [...] Calcium 9.4 8.5 - 10.3 mg/dL [facility] CH Bilirubin, total 0.2 0.1 - 1.2 mg/dL [facility] CH Protein, pl 6.7 6.5 - 8.5 g/dL [facility] CH Albumin 4.1 3.5 - 5.0 g/dL [facility] Alk phos 95 40 - 130 Units/L [facility] ALT 17 7 - 45 Units/L [facility] AST 23 10 - 45 Units/L [facility] CH Blood 06/24/2024 9:32 AM CDT 06/24/2024 2:59 PM CDT Karson Forbes MD LAB BLOOD ORDERABLES Ivette l Result [facility] [address] Department [place], [place] [id number] * Hepatitis B surface antibody (immune status) Blood (06/24/2024 9:32 AM CDT) HBsAb (immune status) Nonreactive Comment: Interpretive Data Nonreactive: This result is consistent with a lack of immunity to Hepatitis B Virus when used in the setting of routine screening. Equivocal: The immune status of the individual should be further assessed, if appropriate, after consideration of clinical status, risk factors, and additional diagnostic information. Reactive: This result is consistent with immunity to Hepatitis B Virus when used in the setting of routine screening. Current interpretive data was last revised on 19. Blood 06/24/2024 9:32 AM CDT 06/24/2024 2:59 PM CDT Karson Forbes MD LAB MICROBIOLOGY - GENERA L ORDERABLES Final Result Performing Organization Address [facility]/ZIP Co de Phone Number J[facility] CARN[facility] [address] [place] [address] * Hepatitis B core antibody, total Blood (06/24/2024 9:32 AM CDT) Hep B core IgG/IgM Nonreactive Nonreactive Comment:Testing performed by : [facility], [address] [place]., [address] Blood 06/24/2024 9:32 AM CDT 06/25/2024 10:14 AM CDT Karson Forbes MD LAB MICROBIOLOGY - GENERA L ORDERABLES Final Result [facility] CARN[facility] [address] Department [place], [place] [id number] * Hepatitis B Surface Antigen Blood (06/24/2024 9:32 AM CDT) HepBsAg Nonreactive Nonreactive Blood 06/24/2024 9:32 AM CDT 06/24/2024 2:59 PM CDT us Karson Forbes MD LAB MICROBIOLOGY - GENERA L ORDERABLES Final Result [facility] [address] Department [place] [address] documented in this encounter Visit Diagnoses Diagnosis Need for hepatitis B screening test Mixed hyperlipidemia Encounter for screening colonoscopy documented in this encounter Care Teams Residential Concierge Relationship Specialty Start Date End Date Karson Forbes MD [address] [place] [address] PCP - General Family Medicine 11/23/23 Phoenix Loredo MD Consulting Physician Cardiology 01/04/19 [place] [address] [place] [address] Assistant Service Manager Obstetrics and Gynecology 04/19/21 [place] [address] [place] [address] Consulting Physician Urology 05/17/24 Ho Phan MD [address] [place] [address] Medical Oncologist/Yardmaster Hematology and Oncology 06/04/24 documented as of this encounter
--- OUTSIDE RECORDS SUMMARY | 2024-10-13 04:05 | XMS_ITS | Encounter Summary ---
Author Organization [facility] Healthcare Address [address] [place] [address] Care Team Providers Care Principal Developer Name Role Phone Phoenix Loredo MD Unavailable [phone] Aylin Lundy MD Unavailable [phone] Karson Forbes MD Primary Care Provider [phone] Daniel Last MD Unavailable [phone] oH Phan MD Unavailable Encounter Details Date Type Department Care Team (Late st Contact Info) Description 08/23/2024 Telephone [facility] Medical Group Gastroenterology at [address] [place] [address] Kasandra Guardado Social History Tobacco Use Types Packs/Day Years Used Date Smoking Tobacco: Former Cigarettes 1 45 S tarted: 1979 Passive Smoke Exposure: Past Smokeless Tobacco: Never Alcohol Use Standard Drinks/Week Comments No 0 (1 standard drink = 0.6 oz pur e alcohol) [facility] Utilities Answer Date Recorded In the past 12 months has [employer], gas, oil, or water company threatened to [...] often do you attend chur ch or scientologist services? 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 Cherry rescheduled her colonoscopy from 09/25/2024 to 02/04/2025 @ 930 AM. Case has been rescheduled on snapboard. SHEETING CUTTER documented in this encounter Plan of Treatment Upcoming Encounters Date Type Department Care Team (Late st Contact Info) Description 02/04/2025 9:30 AM CDT Hospital Encounter [address] [address] Vic Gaines, DO 3 [facility] [place] [address] [place] [address] 02/04/2025 9:30 AM CDT - 02/04/2025 10:00 AM CDT Surgery [address] [address] Vic Gaines, DO [address] [facility] [place] [address] [place] [address] COLONOSCOPY Scheduled Procedures Name Priority Associated Diagnoses Date/Ti me COLONOSCOPY Encounter for screening colonoscopy 02/04/2025 9:30 AM CDT documented as of this encounter Visit Diagnoses Not on filedocumented in this encounter Care Teams Principal Developer Relationship Specialty Start Date End Date Karson oFrbes MD [address] [place] [address] PCP - General Family Medicine 11/23/23 Phoenix Loredo MD Consulting Physician Cardiology 01/04/19 [place] [address] [place] [address] Dealer Sales Rep Obstetrics and Gynecology 04/19/21 [place] [address] [place] [address] Consulting Physician Urology 05/17/24 Ho Phan MD [address] [place] [address] Medical Oncologist/Livestock Yard Attendant Hematology and Oncology 06/04/24 documented as of this encounter
--- OUTSIDE RECORDS SUMMARY | 2024-10-13 04:05 | XMS_ITS | Encounter Summary ---
Author Organization [facility] Healthcare Address [address] [place] [address] Care Team Providers Care Mash Processing Operator Name Role Phone Phoenix Loredo MD Unavailable [phone] Aylin Lundy MD Unavailable [phone] Karson Forbes MD Primary Care Provider [phone] Daniel Last MD Unavailable [phone] Ho Phan MD Unavailable [phone] Encounter Details Date Type Department Care Team (Late st Contact Info) Description 06/24/2024 9:00 AM CDT Lab [facility] Outpatient Lab at [address] [place] [id number] Mixed hyperlipidemia (Primary Dx); Screening examination for poliomyelitis Social History Tobacco Use Types Packs/Day Years Used Date Smoking Tobacco: Former Cigarettes 1 45 S tarted: 1979 Passive Smoke Exposure: Past Smokeless Tobacco: Never Alcohol Use Standard Drinks/Week Comments No 0 (1 standard drink = 0.6 oz pur e alcohol) [facility] Utilities Answer Date Recorded In the past 12 months has e [employer], gas, oil, or water company threatened to [...] often do you attend chur ch or uatsdin services? 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 Gender Identity Not on file Sexual Orientation Not on file documented as of this encounter Plan of Treatment Upcoming Encounters Date Type Department Care Team (Late st Contact Info) Description 02/04/2025 9:30 AM CDT Hospital Encounter [address] [address] Vic Gaines, DO 3 [facility] [address] [place] [address] 02/04/2025 9:30 AM CDT - 02/04/2025 10:00 AM CDT Surgery [address] [address] Vic Gaines, DO 3 [facility] [address] [place] [address] COLONOSCOPY Scheduled Procedures Name Priority Associated Diagnoses Date/Ti me COLONOSCOPY Encounter for screening colonoscopy 02/04/2025 9:30 AM CDT documented as of this encounter Visit Diagnoses Diagnosis Mixed hyperlipidemia- Primary Screening examination for poliomyelitis Encounter for screening colonoscopy documented in this encounter Care Teams Mash Processing Operator Relationship Specialty Start Date End Date Karson Forbes MD [address] [place] [address] PCP - General Family Medicine 11/23/23 Phoenix Loredo MD Consulting Physician Cardiology 01/04/19 [place] [address] [place] [address] Smoke Jumper Obstetrics and Gynecology 04/19/21 [place] [address] [address] Consulting Physician Urology 05/17/24 Ho Phan MD [address] [place] [address] Medical Oncologist/Office Machine Service Supervisor Hematology and Oncology 06/04/24 documented as of this encounter
--- OUTSIDE RECORDS SUMMARY | 2024-10-13 04:05 | XMS_ITS | Encounter Summary ---
Author Organization [facility] Healthcare Address [address] [place] [address] Care Team Providers Care Subsurface Augmentee Elint Operator Name Role Phone Phoenix Loredo MD Unavailable [phone] Aylin Lundy MD Unavailable [phone] Karson Forbes MD Primary Care Provider [phone] Daniel Last MD Unavailable [phone] Ho Phan MD Unavailable [phone] Encounter Details Date Type Department Care Team (Late st Contact Info) Description 08/07/2024 Orders Only [facility] Health Information Management [address] [place] [address] Karson Forbes MD [address] [place] [address] Social History Tobacco Use Types Packs/Day Years Used Date Smoking Tobacco: Former Cigarettes 1 45 S tarted: 1979 Passive Smoke Exposure: Past Smokeless Tobacco: Never Alcohol Use Standard Drinks/Week Comments No 0 (1 standard drink = 0.6 oz pur e alcohol) [facility] Utilities Answer Date Recorded In the past 12 months has [employer], gas, oil, or water [employer] threatened to shut off services in your [...] How often do you attend chur or mormonism services? 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 Gender Identity Not on file Sexual Orientation Not on file documented as of this encounter Plan of Treatment Upcoming Encounters Date Type Department Care Team (Late st Contact Info) Description 02/04/2025 9:30 AM CDT Hospital Encounter [address] [address] Vic Gaines, DO 3 [facility] [address] [place] [address] 02/04/2025 9:30 AM CDT - 02/04/2025 10:00 AM CDT Surgery [address] [address] Vic Gaines, DO 3 [facility] [address] [place] [address] COLONOSCOPY Scheduled Procedures Name Priority Associated Diagnoses Date/Ti me COLONOSCOPY Encounter for screening colonoscopy 02/04/2025 9:30 AM CDT documented as of this encounter Procedures Procedure Name Priority Date/Time Associated Diagnosis Comments SCAN - LABS 08/07/2024 documented in this encounter Results * SCAN - LABS (08/07/2024) us Karson Forbes MD Final Res ult documented in this encounter Visit Diagnoses Not on filedocumented in this encounter Care Teams Subsurface Augmentee Elint Operator Relationship Specialty Start Date End Date Karson Forbes MD [address] [place] [address] PCP - General Family Medicine 11/23/23 Phoenix Loredo MD Consulting Physician Cardiology 01/04/19 [place] [address] [place], [place] [id number] Fabrication And Assembly Supervisor Obstetrics and Gynecology 04/19/21 [place] [address] [place] [address] Consulting Physician Urology 05/17/24 Ho Phan MD [address] [place] [address] Medical Oncologist/Central Office Repairer Supervisor Hematology and Oncology 06/04/24 documented as of this encounter
--- OUTSIDE RECORDS SUMMARY | 2024-10-13 04:05 | XMS_ITS | Encounter Summary ---
Author Organization [facility] Healthcare Address [address] [place] [address] Care Team Providers Care Weaving Inspector Name Role Phone Phoenix Loredo MD Unavailable [phone] Aylin Lundy MD Unavailable [phone] Karson Forbes MD Primary Care Provider [phone] Daniel Last MD Unavailable [phone] Ho Phan MD Unavailable [phone] Encounter Details Date Type Department Care Team (Late st Contact Info) Description 08/28/2024 Orders Only [facility] Health Information Management [address] [place] [address] Karson Forbes MD [address] [place] [address] Social History Tobacco Use Types Packs/Day Years Used Date Smoking Tobacco: Former Cigarettes 1 45 S tarted: 1979 Passive Smoke Exposure: Past Smokeless Tobacco: Never Alcohol Use Standard Drinks/Week Comments No 0 (1 standard drink = 0.6 oz pur e alcohol) [facility] Utilities Answer Date Recorded In the past 12 months has [employer], gas, oil, or water [employer] threatened to shut off services in your [...] How often do you attend chur or congregation services? 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 Gender Identity Not on file Sexual Orientation Not on file documented as of this encounter Plan of Treatment Upcoming Encounters Date Type Department Care Team (Late st Contact Info) Description 02/04/2025 9:30 AM CDT Hospital Encounter [address] [address] Vic Gaines, DO 3 [facility] [address] [place] [address] 02/04/2025 9:30 AM CDT - 02/04/2025 10:00 AM CDT Surgery [address] [address] Vic Gaines, DO 3 [facility] [address] [place] [address] COLONOSCOPY Scheduled Procedures Name Priority Associated Diagnoses Date/Ti me COLONOSCOPY Encounter for screening colonoscopy 02/04/2025 9:30 AM CDT documented as of this encounter Procedures Procedure Name Priority Date/Time Associated Diagnosis Comments SCAN - LABS 08/28/2024 documented in this encounter Results * SCAN - LABS (08/28/2024) us Karson Forbes MD Edited Re sult - Final documented in this encounter Visit Diagnoses Not on filedocumented in this encounter Care Teams Weaving Inspector Relationship Specialty Start Date End Date Karson Forbes MD [address] [place] [address] PCP - General Family Medicine 11/23/23 Phoenix Loredo MD Consulting Physician Cardiology 01/04/19 [place] [address] [place] [address] Rubber Printing Machine Operator Obstetrics and Gynecology 04/19/21 [place] [address] [place] [address] Consulting Physician Urology 05/17/24 Ho Phan MD [address] [place] [address] Medical Oncologist/Business Controller Hematology and Oncology 06/04/24 documented as of this encounter
--- OUTSIDE RECORDS SUMMARY | 2024-10-13 04:05 | XMS_ITS | Encounter Summary ---
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 More than 4 times per year 05/22/2024 Do you belong to any clubs o r organizations such as faith groups, unions, fraternal or athletic groups, or [...] any time in the past 12 m [facility], were you homeless or living in a [facility] (including now)? 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 Gender Identity Not on file Sexual Orientation Not on file documented as of this encounter Plan of Treatment Upcoming Encounters Date Type Department Care Team (Late st Contact Info) Description 02/04/2025 9:30 AM CDT Hospital Encounter [address] [address] Vic Gaines, DO [address] [address] 02/04/2025 9:30 AM CDT - 02/04/2025 10:00 AM CDT Surgery [address] [address] Vic Gaines, DO [address] [address] COLONOSCOPY Scheduled Procedures Name Priority Associated Diagnoses Date/Ti me COLONOSCOPY Encounter for screening colonoscopy 02/04/2025 9:30 AM CDT documented as of this encounter Procedures Procedure Name Priority Date/Time Associated Diagnosis Comments EGFR Routine 06/17/2024 3:43 PM CDT 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, unspecified laterality (HCC) DIFFERENTIAL AUTO Routine 06/17/2024 3:4 3 PM CDT 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 73 m2 Comment: Interpretive Data [...] interpretive data was last reviewed 2021. Blood 06/17/2024 3:43 PM CDT 06/17/2024 3:58 PM CDT Ho Phan MD LAB BLOOD ORDERABLES Final R esult [facility] [address] [place] [address] * Differential, auto (06/17/2024 3:43 PM CDT) Neutrophil abs 5.0 1.5 - 6.5 K/cumm Imm gran abs 0.0 0.0 - 0.1 K/cumm [facility] Lymphocyte abs 2.9 0.8 - 3.3 K/cumm [facility] Monocyte abs 0.8 0.2 - 0.8 K/cumm [facility] Eosinophil abs 0.3 0.0 - 0.5 K/cumm [facility] Basophil abs 0.0 0.0 - 0.1 K/cumm [facility] Neutrophil pct 55.4 % [facility] Comment: Interpretive Data Percent cell count reference ranges are not reported, since discordance with absolute values may lead to misinterpretation of CBC data. Current Interpretive Data was last revised on 2018. Imm gran pct 0.4 % [facility] Comment: Interpretive Data Percent cell count reference ranges are not reported, since discordance with absolute values may lead to misinterpretation of CBC data. Current Interpretive Data was last revised on 2018. Lymphocyte pct 32.6 % [facility] Comment: Interpretive Data Percent cell count reference ranges are not reported, since discordance with absolute values may lead to misinterpretation of CBC data. Current Interpretive Data was last revised on 2018. Monocyte pct 8.4 % [facility] Comment: Interpretive Data Percent cell count reference ranges are not reported, since discordance with absolute values may lead to misinterpretation of CBC data. Current Interpretive Data was last revised on 2018. Eosinophil pct 2.9 % [facility] Comment: Interpretive Data Percent cell count reference ranges are not reported, since discordance with absolute values may lead to misinterpretation of CBC data. Current Interpretive Data was last revised on 2018. Basophil pct 0.3 % [facility] Comment: Interpretive Data Percent cell count reference ranges are not reported, since discordance with absolute values may lead to misinterpretation of CBC data. Current Interpretive Data was last revised on 2018. Blood 06/17/2024 3:43 PM CDT 06/17/2024 3:43 PM CDT Ho Phan MD LAB BLOOD ORDERABLES Final R esult Performing Organization Address [facility] Co de Phone Number [facility] [address] [place] [address] * CBC with auto differential (06/17/2024 3:43 PM CDT) WBC 9.0 3.8 - 9.9 K/cumm Hgb 14.0 11.9 - 15.5 g/dL [facility] Hct 41.2 35.6 - 45.5 % [facility] Plt 240 150 - 400 K/cumm [facility] MPV 9.4 9.1 - 12.3 fL [facility] RBC 4.58 3.90 - 5.20 M/cumm [facility] MCV 90.0 81.3 - 96.4 fL [facility] MCH 30.6 27.1 - 33.3 pg [facility] MCHC 34.0 32.3 - 35.7 g/dL [facility] RDW CV 13.1 11.1 - 14.9 % [facility] RDW SD 42.8 35.7 - 48.1 fL [facility] NRBC abs 0.00 0.00 - 0.01 K/cumm [facility] Blood 06/17/2024 3:43 PM CDT 06/17/2024 3:43 PM CDT Ho Phan MD LAB BLOOD ORDERABLES Final R esult Performing Organization Address City/[facility]/ZIP Co de Phone Number [facility] [address] [place] [address] * (ABNORMAL) Comprehensive metabolic panel (06/17/2024 3:43 PM CDT) Sodium 137 135 - 145 mmol/L Potassium, pl 5.1(H) 3.3 - 4.9 mmol/L [facility] Chloride 103 97 - 110 mmol/L [facility] CO2 23 22 - 32 mmol/L [facility] Anion gap 11 2 - 15 mmol/L [facility] BUN 15 6 - 25 mg/dL [facility] Creatinine 1.11(H) 0.60 - 1.10 mg/dL [facility] Glucose 91 70 - 199 mg/dL [facility] Comment: Interpretive Data Fasting glucose >/= 126 [...] 2022. Calcium 10.0 8.5 - 10.3 mg/dL [facility] Bilirubin, total 0.3 0.1 - 1.2 mg/dL [facility] Protein, pl 7.3 6.5 - 8.5 g/dL [facility] Albumin 4.3 3.5 - 5.0 g/dL [facility] Alk phos 103 40 - 130 Units/L [facility] ALT 25 7 - 45 Units/L [facility] AST 18 10 - 45 Units/L [facility] Blood 06/17/2024 3:43 PM CDT 06/17/2024 3:58 PM CDT Ho Phan MD LAB BLOOD ORDERABLES Final R esult [facility] [address] [place] [address] documented in this encounter Visit Diagnoses Diagnosis 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, unspecified laterality (HCC) Encounter for screening colonoscopy documented in this encounter Care Teams Burlap Bag Sewer Relationship Specialty Start Date End Date Karson Forbes MD [address] [place] [address] PCP - General Family Medicine 11/23/23 Phoenix Loredo MD Consulting Physician Cardiology 01/04/19 [place] [address] [place] [address] Lot Worker Obstetrics and Gynecology 04/19/21 [place] [address] [place] [address] Consulting Physician Urology 05/17/24 Ho Phan MD [address] [facility] [place] [address] Medical Oncologist/Top Lift Compresser Hematology and Oncology 06/04/24 documented as of this encounter
--- OUTSIDE RECORDS SUMMARY | 2024-10-13 04:05 | XMS_ITS | Encounter Summary ---
Author Organization [facility] Healthcare Address [address] [place] [address] Care Team Providers Care A P Supervisor Name Role Phone Phoenix Loredo MD Unavailable [phone] Aylin Lundy MD Unavailable [phone] Karson Forbes MD Primary Care Provider [phone] Encounter Details Date Type Department Care Team (Late st Contact Info) Description 05/09/2024 Telephone [facility] Pre Anesthesia Testing [address] [place] [address] Pepper Wolf Social History Tobacco Use Types Packs/Day Years Used Date Smoking Tobacco: Every Day Cigarettes 1 45 Started: 1980 Passive Smoke Exposure: Past Smokeless Tobacco: Never Alcohol Use Standard Drinks/Week Comments No 0 (1 standard drink = 0.6 oz pur e alcohol) AUDIT-C Answer Date Recorded Q1: How often do you have a drink containing alc ohol? Never 05/13/2021 Average Number of Drinks Not on file 021 Q3: How often do you have si x or more drinks on one occasion? 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 Gender Identity Not on file Sexual Orientation Not on file documented as of this encounter Miscellaneous Notes * Telephone Encounter - Pepper Wolf - 05/09/2024 12:26 PM CDT Returned pt call , asked for call back to schedule SEC clearance appt documented in this encounter Plan of Treatment Upcoming Encounters Date Type Department Care Team (Late st Contact Info) Description 02/04/2025 9:30 AM CDT Hospital Encounter [address] [address] Vic Gaines, DO [address] [address] 02/04/2025 9:30 AM CDT - 02/04/2025 10:00 AM CDT Surgery [address] [address] Vic Gaines, DO [address] [address] COLONOSCOPY Scheduled Procedures Name Priority Associated Diagnoses Date/Ti me COLONOSCOPY Encounter for screening colonoscopy 02/04/2025 9:30 AM CDT documented as of this encounter Visit Diagnoses Not on filedocumented in this encounter Care Teams A P Supervisor Relationship Specialty Start Date End Date Karson Forbes MD [address] [place] [address] PCP - General Family Medicine 11/23/23 Phoenix Loredo MD Consulting Physician Cardiology 01/04/19 [place] [address] [place] [address] Extract Mixer Obstetrics and Gynecology 04/19/21 documented as of this encounter
--- OUTSIDE RECORDS SUMMARY | 2024-10-13 04:05 | XMS_ITS | Encounter Summary ---
Author Organization [facility] Healthcare Address [address] [place] [address] Care Team Providers Care Sous Chef Name Role Phone Phoenix Loredo MD Unavailable [phone] Aylin Lundy MD Unavailable [phone] Karson Forbes MD Primary Care Provider [phone] Daniel Last MD Unavailable [phone] Ho Phan MD Unavailable [phone] Encounter Details Date Type Department Care Team (Late st Contact Info) Description 08/21/2024 Orders Only [facility] Health Information Management [address] [place] [address] Karson Forbes MD [address] [place] [address] Social History Tobacco Use Types Packs/Day Years Used Date Smoking Tobacco: Former Cigarettes 1 45 S tarted: 1979 Passive Smoke Exposure: Past Smokeless Tobacco: Never Alcohol Use Standard Drinks/Week Comments No 0 (1 standard drink = 0.6 oz pur e alcohol) [facility] Utilities Answer Date Recorded In the past 12 months has [employer], gas, oil, or water [employer] threatened to shut off services in your [...] How often do you attend chur or buddhist services? 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 Gender Identity Not on file Sexual Orientation Not on file documented as of this encounter Plan of Treatment Upcoming Encounters Date Type Department Care Team (Late st Contact Info) Description 02/04/2025 9:30 AM CDT Hospital Encounter [address] [address] Vic Gaines, DO 3 [facility] [address] [place] [address] 02/04/2025 9:30 AM CDT - 02/04/2025 10:00 AM CDT Surgery [address] [address] Vic Gaines, DO 3 [facility] [address] [place] [address] COLONOSCOPY Scheduled Procedures Name Priority Associated Diagnoses Date/Ti me COLONOSCOPY Encounter for screening colonoscopy 02/04/2025 9:30 AM CDT documented as of this encounter Procedures Procedure Name Priority Date/Time Associated Diagnosis Comments SCAN - LABS 08/21/2024 documented in this encounter Results * SCAN - LABS (08/21/2024) us Karson Forbes MD Edited Re sult - Final documented in this encounter Visit Diagnoses Not on filedocumented in this encounter Care Teams Sous Chef Relationship Specialty Start Date End Date Karson Forbes MD [address] [place] [address] PCP - General Family Medicine 11/23/23 Phoenix Loredo MD Consulting Physician Cardiology 01/04/19 [place] [address] [place] [address] Senior Officer Obstetrics and Gynecology 04/19/21 [place] [address] [place] [address] Consulting Physician Urology 05/17/24 Ho Phan MD [address] [place] [address] Medical Oncologist/Spray Gun Operator Hematology and Oncology 06/04/24 documented as of this encounter
--- OUTSIDE RECORDS SUMMARY | 2024-10-13 04:05 | XMS_ITS | Encounter Summary ---
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, unspecified laterality ([place]) [place] [address] [place] [address] [place] [address] Phone: tel: fax: [facility] Cancer Genetics Department [address] [place] [address] Phone: tel: fax: Referral ID Status Reason Start Date Expiration Date Visits Requested Visits Authorized [id number] Pending Review Specialty Services Required 06/17/2024 07/17/2025 1 1 Encounter Details Date Type Department Care Team (Late st Contact Info) Description 07/12/2024 1:30 PM CDT Telemedicine [facility] Cancer Genetics Department [address] [place] [address] Domonique Moody MS 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, unspecified laterality (HCC) Social History Tobacco Use Types Packs/Day Years Used Date Smoking Tobacco: Former Cigarettes 1 45 S tarted: 1979 Passive Smoke Exposure: Past Smokeless Tobacco: Never Alcohol Use Standard Drinks/Week Comments No 0 (1 standard drink = 0.6 oz pur e alcohol) [facility] Utilities Answer Date Recorded In the past 12 months has th e electric, gas, oil, or water company [...] any clubs o r organizations such as orthodoxy groups, unions, fraternal or athletic groups, or [...] any time in the past 12 m [facility], were you homeless or living [...] on file 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 Cancer Genetics Risk Assessment July 17, 2024 Name: Mirtha Cherry : 1965 Mirtha Cherry was evaluated on July 12, 2024 for the risk to develop cancer and/or to have an inherited genetic mutation for cancer. This information is based on her personal and family medical history using risk assessment algorithms. Mirtha was referred by Dr. Phan for genetic evaluation due to a personal and family history of cancer. Personal Medical History: Mirtha is a 59 year old, A1 female who was recently diagnosed with renal cancer. She has a history of breast cancer diagnosed at age 53 yo. Her medical and surgical history is significant for migraine, PVD, bilateral carotid artery stenosis, PVCs, hyperlipidemia, GERD, hiatal hernia, cholecystectomy, nephroureterectomy, bilateral mastectomy, bunionectomy bilateral, and thyroid nodule. Mirtha began menstruation at age 13 and began menopause at age 49. She had her first child at age 25, herlast at age , and breastfed for 3 months. She has a 1 year history of OCP use. She has not used infertility treatments or HRT. Family History: Mirtha's pertinent family history is as follows: ?? Father was diagnosed with Head and Neck Tumor, Unspecified at age 58 ?? Sister was diagnosed with Basal Cell Carcinoma at age 40 ?? Maternal Aunt was diagnosed with Squamous Cell Carcinoma at age 63 ?? Paternal Aunt was diagnosed with Brain Tumor, Unspecified at age 50 ?? Paternal Aunt was diagnosed with Renal Cancer, Unspecified at age 57 ?? Paternal Aunt was diagnosed with Lymphoma, Non-Hodgkin's at age 40 ?? Paternal Uncle was diagnosed with Stomach Cancer at age 60 ?? Maternal Female Cousin was diagnosed with Lung Cancer at age 64 ?? Maternal Male Cousin was diagnosed with Brain Tumor, Unspecified at age 56 ?? Paternal Maternal Great Grandfather was diagnosed with Head and Neck Tumor, Unspecified at unknown age ?? Paternal Paternal Great Grandmother was diagnosed with Breast Cancer at age 50 Risk Assessment: Mirtha meets NCCN guidelines and criteria for Hereditary Breast and Ovarian Cancer syndrome (HBOC)testing. We discussed the availability of common hereditary cancer panels, multi-cancer panels, andRNA analysis. Mirtha was informed about the risks, benefits, and limitations of this testing technology, including the potential for results of uncertain significance. After considering these issues, Mirtha elected to proceed with testing. The Multi-Cancer Panel +RNA uses next generation sequencing and RNA analysis to look at a panel of genes associated with hereditary cancer. The genes analyzed include: AIP, ALK, APC, MARIBETH, AXIN2, BAP1, BARD1, BLM, BMPR1A, BRCA1, BRCA2, BRIP1, CDC73, CDH1, CDK 4, CDKN1B, CDKN2A, CHEK2, CTNNA1, DICER1, EGFR, EPCAM, FH, FLCN, GREM1, HOXB13, KIT, LZTR1, MAX, MBD4, MEN1, MET, MITF, MLH1, MSH2, MSH3, MSH6, MUTYH, NF1, NF2, NTHL1, PALB2, PDGFRA, PMS2, POLD1, POLE, POT1, MVTBG8K, PTCH1, PTEN, RAD51C, RAD51D, RB1, RET, SDHA, SDHAF2, SDHB, SDHC, SDHD, SMAD4, SMARCA4, SMARCB1, SMARCE1, STK11, SUFU, UNSR670, TP53, TSC1, TSC2, VHL. Once I have a signed consent form from Kimber and a signed order for genetic testing from Dr. Phan, I will coordinate a blood drawto be done at her previously scheduled appointment at [facility] on July 24, 2024 with sample to be sent to [facility] for testing. Results are expected in approximately 2-3 weeks from draw date. Follow up to discuss results is scheduled for August 07, 2024 at 3:00. The potential for genetic discrimination was discussed. The Genetic Information Nondiscrimination Act (DANIELLE) is a federal law that provides protection against genetic discrimination by health insurers and employers of more than 15 individuals with a gene mutation who do not have a clinically diagnosed history of the associated disorder(s). There is no federal law and few state laws that provide protection in regards to life, disability and long-term care insurance. It is recommended that individuals evaluate their need for these insurances and obtain private coverage to meet such needs beforeundergoing genetic testing. Private coverage is recommended to prevent future discrimination if employer- based insurance is terminated due to job change or loss. DANIELLE does not apply to members of [employer] , however the has its own policies in place that may protect against genetic discrimination. Additional information about DANIELLE and potential discrimination can be found at the following link: http://www.ginahelp.org/GINA_you.pdf. I will reevaluate cancer risks and management guidelines for Kimber and her family members following genetic testing. Plan: I will coordinate genetic testing via [facility] Multi-Cancer panel +RNA. TAT 2-3 weeks from sample draw date. Follow up scheduled for August 07, 2024 at 3:00. I will reevaluate cancer risks and management guidelines for Kimber and her family members following genetic testing. Sincerely, Domonique Moody MS, [facility] Certified Genetic Counselor Clinic: [facility] Cancer Genetics Time in consultation: 60 minutes CC: Dr. Karson Forbes, [address] [place] [address], [place], [address] [place] [address], The information provided in this letter is based on the current medical literature on cancer genetics. We encourage our patients to stay in touch with our office as the field of cancer genetics is continually changing and molecular genetic testing technology is improving. If there is any change in the patient's cancer family history please re-contact our office. Information related to the patient's family members or other third parties may be maintained in a separate file and excluded from a general release of information. Due to the sensitive and confidential nature of this type of genetic information, it may be protected from disclosure according to federal or state privacy laws. documented in this encounter Plan of Treatment Upcoming Encounters Date Type Department Care Team (Late st Contact Info) Description 02/04/2025 9:30 AM CDT Hospital Encounter [address] [address] Vic Gaines, DO [address] [address] 02/04/2025 9:30 AM CDT - 02/04/2025 10:00 AM CDT Surgery [address] [address] Vic Gaines, DO [address] [address] COLONOSCOPY Scheduled Procedures Name Priority Associated Diagnoses Date/Ti me COLONOSCOPY Encounter for screening colonoscopy 02/04/2025 9:30 AM CDT documented as of this encounter Visit Diagnoses Diagnosis Encounter for screening colonoscopy- Primary 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, unspecified laterality (HCC) Encounter for screening colonoscopy documented in this encounter Orders Outpatient Referral Count Last Ordered Date Fir st Ordered Date AMB REFERRAL TO CANCER GENETICS COUNSELING 1 07/12/2024 documented in this encounter Care Teams Hospitalist Nocturnist Physician Relationship Specialty Start Date End Date Karson Forbes MD [address] [place] [address] PCP - General Family Medicine 11/23/23 Phoenix Loredo MD Consulting Physician Cardiology 01/04/19 [place] [address] [place] [address] [facility]ider Obstetrics and Gynecology 04/19/21 [place] [address] [place] [address] Consulting Physician Urology 05/17/24 Ho Phan MD [address] [place] [address] Medical Oncologist/Crtt Hematology and Oncology 06/04/24 documented as of this encounter
--- OUTSIDE RECORDS SUMMARY | 2024-10-13 04:05 | XMS_ITS | Encounter Summary ---
Author Organization [facility] Address [address] [place] [address] Care Team Providers Care Lead Enterprise Architect Name Role Phone Phoenix Loredo MD Unavailable [phone] Aylin Lundy MD Unavailable [phone] Karson Forbes MD Primary Care Provider [phone] Daniel Last MD Unavailable [phone] Reason for Visit * Reason Comments Shortness of Breath * Auth/Cert Specialty Diagnoses / Procedures Referred By Contac t Referred To Contact Diagnoses Pneumonia due to infectious organism, unspecified laterality, unspecified part of lung Procedures na Referral ID Status Reason Start Date Expiration Date Visits Re quested Visits Authorized [id number] 1 1 Encounter Details Date Type Department Care Team (Latest Contact Info) Description 05/21/2024 2:03 PM CDT - 05/23/2024 1:05 PM CDT Hospital Encounter [facility] IMU [address] [place] [address] Abhinav Lorenz MD [address] [place] [place] [address] [place] [address] Ger Montemayor MD [address] [place] [address] [place] [address] Pneumonia due to infectious organism, unspecified laterality, unspecified part of lung (Primary Dx); Shortness of breath Discharge Disposition: Discharge to home or self care Social History Tobacco Use Types Packs/Day Years Used Date Smoking Tobacco: Former Cigarettes 1 45 S tarted: 1979 Passive Smoke Exposure: Past Smokeless Tobacco: Never Tobacco Cessation:Counseling Given: Not Answered Alcohol Use Standard Drinks/Week Comments No 0 (1 standard drink = 0.6 oz pur e alcohol) [facility] Utilities Answer Date Recorded In the past 12 months has e [employer], gas, oil, or water company threatened to [...] often do you attend chur ch or methodist services? 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 Gender Identity Not on file Sexual Orientation Not on file documented as of this encounter Last Filed Vital Signs Vital Sign Reading Time Taken Comments Blood Pressure 127/68 05/23/2024 11:00 AM CDT Pulse 62 05/23/2024 12:00 PM CDT Temperature 36.4 ??C (97.5 ??F) 05/23/2024 11:00 AM C DT Respiratory Rate 18 05/23/2024 11:00 AM CDT Oxygen Saturation 99% 05/23/2024 11:00 AM CDT Inhaled Oxygen Concentration - - Weight 62 kg (136 lb 9.6 oz) 05/22/2024 6:40 AM CDT Height 154.9 cm (5' 1 ) 05/21/2024 8:22 PM CDT Body Mass Index 25.81 05/21/2024 8:22 PM CDT documented in this encounter Discharge Summaries * Ger Montemayor MD - 05/23/2024 12:54 PM CDT Inpatient Discharge Summary BRIEF OVERVIEW Admitting Provider: Ger Montemayor MD Discharge Provider: Ger Montemayor MD Primary Care Physician at Discharge: Karson Forbes MD [phone] Admission Date: 05/21/2024 Discharge Date: 05/23/2024 Admission Location: [facility] Problems/Diagnoses: Principal Problem: Pneumonia due to infectious organism, unspecified laterality, unspecified part of lung Resolved Problems: No resolved hospital problems. 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 Patient was discharged from the hospital yesterday after she had her surgery. She reports having shortness of breath as well as cough productive of sputum. She reports exposure to family member that has COVID. She denies any chest pain, fevers, chills, abdominal pain, nausea, vomiting, diarrhea. Due to her symptoms she came to the ED for further evaluation. In the ED vital signs significant for oxygen saturation 87% improved in the 90s On 3 L nasal cannula. Lab work shows elevated pro BNP 1261, troponin x3 unremarkable, VBG shows pH 7.42/36, WBC count 10.4, D-dimer 2662 blood culture obtained. Rapid COVID rapid flu RSV negative. Chest x-ray shows small to moderate bilateral effusion with adjacent atelectasis and or infiltrate. CTA chest ordered, Patient received DuoNeb, IV ceftriaxone, therapeutic Lovenox and was admitted for further management. 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 Patient was discharged from the hospital yesterday after she had her surgery. She reports having shortness of breath as well as cough productive of sputum. She reports exposure to family member that has COVID. She denies any chest pain, fevers, chills, abdominal pain, nausea, vomiting, diarrhea. Due to her symptoms she came to the ED for further evaluation. Shortness of breaths Chest x-ray shows small to moderate bilateral effusion with adjacent atelectasis and/or infiltrate Continue IV ceftriaxone and doxycycline in case of pneumonia Rapid COVID, rapid flu, RSV negative CTA chest no pe, no acute pulmonary pathology Supplemental O2 to maintain O2 sat in the 90s 05/22: CTPE: No PE or other acute abnormality identified in the chest. Trace pleural effusions and mild bibasilar atelectasis. Echo: Normal left ventricular systolic function with no focal wall motion abnormalities. Normal left ventricular size. Mild concentric left ventricular hypertrophy. Normal left ventricular diastolic function. Ejection fraction is measured at 59 %.Mild pulmonary hypertension based on right ventricular systolic pressure. Estimated peak RVSP is 40 mmHg. Mild tricuspid regurgitation. There is an anterior echo free space consistent with epicardial fat pad. 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 This may represent a small focus of contained leak. No free spillage of contrast into the pelvis is seen. Defer decision for harris catheter to Urology COPD not in exacerbation Continue home inhalers Hypertension, hyperlipidemia Continue home medication once reconciled Smoker a pack a day: counseled, declined NRT Active Issues Requiring Follow-up: None Test Results Pending at Discharge: Pending Labs Order Current Status Blood culture Blood Preliminary result Blood culture Blood Preliminary result Operative Procedures Performed: Other Procedures: None Pertinent Test Results: None Discharge Details Physical Exam at Discharge: Discharge Condition: stable Pulse: 62 Resp: 18 BP: 127/68 Temp: 36.4 ??C (97.5 ??F) Weight: 62 kg (136 lb 9.6 oz) Pertinent Exam Findings at Discharge: Eyes: EOMI, ROXANA, sclare non icteric Neck: supple, no nuchal ridigity, no gross carotid bruits appreciated ENT: No gross oral lesion, tongue midline, mucosa moist Respiratory: Lungs - decreased breath sounds at the bases of the lungs, no wheezing no rhonchi appreciated Cardiovascular: Heart sounds- [id number], no significant murmur or gallop GI: Abdomen-+BS, Non Tender, Non distended, No gross hepatomegaly Lower Ext: No gross edema, pedal artery pulses present bilaterally Neuro: Muscular Strength upper and lower extremities 5/5 bilaterally, sensory intact, cranial nerves 2-12 within normal limits, good coordination, normal speech Musculoskeletal: no gross joint erythema, edema, tenderness Genitourinary: No New change Skin: No new change Psychiatric: Normal affect, good judgment Discharge Disposition: Discharge to home or self care Code Status at Discharge: full code Discharge Instructions: Activity Instructions Discharge activity: Resume normal activity Diet Instructions Adult Discharge Diet Diet Type: Return to previous diet Other Instructions Call provider for: Temperature -Temperature greater than 101 degrees F Call provider for: difficulty breathing or chest pain Call provider for: hives Call provider for: persistent nausea or vomiting Call provider for: redness, tenderness, or signs of infection (pain, swelling, redness, odor or green/yellow discharge around incision site) Call provider for: severe uncontrolled pain Call provider for: headache, visual disturbances, weakness and speech changes Discharge Medications: Current Medications TAKE these medications [...] needed for rhinitis Commonly known as: FLONASE furosemide 20 mg tablet Take 1 tablet (20 mg total) by mouth daily Commonly known as: LASIX HYDROcodone-acetaminophen 5-325 mg per tablet Take 1 tablet by mouth every 6 (six) hours as needed for pain For: pain Commonly known as: NORCO levoFLOXacin 500 mg tablet Take 1 tablet (500 mg total) by mouth daily for 2 days Commonly known as: LEVAQUIN metoprolol XL 50 mg extended release tablet Take 1 tablet (50 mg total) by mouth every morning Commonly known as: TOPROL-XL multivitamin tablet Take 1 tablet by mouth every morning pantoprazole DR 40 mg EC tablet Take 1 tablet (40 mg total) by mouth daily For: Mucositis Prophylaxis Commonly known as: PROTONIX Start taking on: May 24, 2024 PROBIOTIC (B. COAGULANS) ORAL Take by mouth [...] Main 04/15/2025 8:00 AM Phoenix Loredo MD [facility] 122 PSA 05/01/2025 9:30 AM Che Nair, ACQUISITIONS ASSISTANT [facility]M 230 Specialty 35 minutes spent in patient interview, physical exam, preparing discharge order, discharge summary and discussing discharge medication and instruction with the patient documented in this encounter Discharge Instructions * Appointments* Marsha Barone, RN - 05/23/2024 12:14 PM CDT THANK YOU for choosing our team to provide your health care. Your HEALTH AND SAFETY are important to us. We hope you feel your care on IMU was ALWAYS EXCELLENT! Please call IMU at [phone] if you have any questions regarding your care. Wishing you continued improvement during your recovery. Your Intermediate Care Unit Team * Attachments The following attachments cannot be sent through Care Everywhere. * Pneumonia (Discharge Care) ([place]) documented in this encounter Medications at Time [...] in 24 hours. 9 tablet 3 06/21/2023 levoFLOXacin (LEVAQUIN) 500 mg tablet Take 1 tablet (500 mg total) by mouth daily for 2 days 05/23/2024 4 clopidogreL (PLAVIX) 75 mg tablet Take 1 tablet (75 mg total) by mouth every morning Last dose 05/10/2024 Start taking it tomorrow 05/21/2024 05/20/2024 4 furosemide (LASIX) 20 mg tablet Take 1 tablet (20 mg total) by mouth daily 30 tablet 05/23/2024 4 HYDROcodone-aceta minophen (NORCO) 5-325 mg per tabletIndications :Pain Take 1 tablet by mouth every 6 (six) hours as needed for pain 20 tablet 05/17/2024 4 ketorolac (TORADOL) 10 mg tablet Take 1 tablet (10 mg total) by mouth every 6 (six) hours as needed 04/18/[address] (PROTONIX) 40 mg EC tabletIndications :Mucositis Prophylaxis Take 1 tablet (40 mg total) by mouth daily 30 tablet 05/24/2024 4 documented as of this encounter Ordered Prescriptions Prescription Sig Dispense Quantity Refills Last Filled Start Date End Date furosemide (LASIX) 20 mg tablet Take 1 tablet (20 mg total) by mouth daily 30 tablet 05/23/2024 06/24/[address] (PROTONIX) 40 mg EC tabletIndications: Mucositis Prophylaxis Take 1 tablet (40 mg total) by mouth daily 30 tablet 05/24/2024 06/20/2024 levoFLOXacin (LEVAQUIN) 500 mg tablet Take 1 tablet (500 mg total) by mouth daily for 2 days 05/23/2024 05/25/2024 documented in this encounter Discharge Disposition Disposition Code Departure Means Destination Comment s Discharge to home or self care documented in this encounter Progress Notes * Travis Tracy, ACQUISITIONS ASSISTANT - 05/23/2024 9:18 AM CDT Daily Progress Subjective Interval History: No acute events overnight. Catheter remains patent and draining yellow urine. Review of Systems Gastrointestinal: Negative for abdominal pain. Genitourinary: Negative for flank pain, hematuria and urgency. Objective Vitals: 24hr Min/Max: Temp Min: 36.2 ??C (97.1 ??F) Max: 36.5 ??C (97.7 ??F) Pulse Min: 50 Max: 98 BP Min: 102/54 Max: 138/61 Resp Min: 18 Max: 18 SpO2 Min: 95 % Max: 99 % Most Recent : Vitals: 05/23/24 0700 BP: 121/50 Pulse: 54 Resp: 18 Temp: 36.2 ??C (97.2 ??F) SpO2: 96% I/O last 2 completed shifts: In: 960 [P.O.:860; IV Piggyback:100] Out: 2250 [Urine:2250] No intake/output data recorded. Physical Exam Vitals reviewed. Constitutional: General: She is not in acute distress. HENT: Head: Normocephalic. Cardiovascular: Rate and Rhythm: Normal rate. Pulmonary: Effort: Pulmonary effort is normal. No tachypnea. Abdominal: Palpations: Abdomen is soft. Tenderness: There is no abdominal tenderness. Neurological: Mental Status: She is alert and oriented to person, place, and time. Lab/Radiology/Diagnostic Review: Laboratory review: Lab results in the last 24 hours: Recent Results (from the past 24 hour(s)) Respiratory pathogen panel Nasopharyngeal Collection Time: 05/22/24 9:21 AM Specimen: Nasopharyngeal Result Value Ref Range Influenza A RNA Not Detected Not Detected Influenza B RNA Not Detected Not Detected RSV RNA Not Detected Not Detected COVID-19 RNA Not Detected Not Detected Coronavirus 229E RNA Not Detected Not Detected Coronavirus HKU1 RNA Not Detected Not Detected Coronavirus NL63 RNA Not Detected Not Detected Coronavirus OC43 RNA Not Detected Not Detected Adenovirus DNA Not Detected Not Detected Metapneumovirus RNA Not Detected Not Detected Rhinovirus/Enterovirus RNA Not Detected Not Detected Parainfluenza 1 RNA Not Detected Not Detected Parainfluenza 2 RNA Not Detected Not Detected Parainfluenza 3 RNA Not Detected Not Detected Parainfluenza 4 RNA Not Detected Not Detected B. pertussis DNA Not Detected Not Detected B. parapertussis DNA Not Detected Not Detected C. pneumoniae DNA Not Detected Not Detected M. pneumoniae DNA Not Detected Not Detected Comprehensive metabolic panel Collection Time: 05/23/24 4:16 AM Result Value Ref Range Sodium 141 135 - 145 mmol/L Potassium, pl 3.3 3.3 - 4.9 mmol/L Chloride 105 97 - 110 mmol/L CO2 25 22 - 32 mmol/L Anion gap 12 2 - 15 mmol/L BUN 18 6 - 25 mg/dL Creatinine 1.27 (H) 0.60 - 1.10 mg/dL Glucose 94 70 - 199 mg/dL Calcium 8.5 8.5 - 10.3 mg/dL Bilirubin, total 0.2 0.1 - 1.2 mg/dL Protein, pl 5.3 (L) 6.5 - 8.5 g/dL Albumin 3.5 3.5 - 5.0 g/dL Alk phos 62 40 - 130 Units/L ALT 25 7 - 45 Units/L AST 27 10 - 45 Units/L Magnesium Collection Time: 05/23/24 4:16 AM Result Value Ref Range Magnesium 2.1 1.4 - 2.5 mg/dL CBC with auto differential Collection Time: 05/23/24 4:16 AM Result Value Ref Range WBC 9.8 3.8 - 9.9 K/cumm Hgb 11.5 (L) 11.9 - 15.5 g/dL Hct 33.0 (L) 35.6 - 45.5 % Plt 216 150 - 400 K/cumm MPV 9.9 9.1 - 12.3 fL RBC 3.70 (L) 3.90 - 5.20 M/cumm MCV 89.2 81.3 - 96.4 fL MCH 31.1 27.1 - 33.3 pg MCHC 34.8 32.3 - 35.7 g/dL RDW CV 13.1 11.1 - 14.9 % RDW SD 42.6 35.7 - 48.1 fL NRBC abs 0.00 0.00 - 0.01 K/cumm Differential, auto Collection Time: 05/23/24 4:16 AM Result Value Ref Range Neutrophil abs 5.9 1.5 - 6.5 K/cumm Imm gran abs 0.1 0.0 - 0.1 K/cumm Lymphocyte abs 2.6 0.8 - 3.3 K/cumm Monocyte abs 0.8 0.2 - 0.8 K/cumm Eosinophil abs 0.3 0.0 - 0.5 K/cumm Basophil abs 0.0 0.0 - 0.1 K/cumm Neutrophil pct 60.5 % Imm gran pct 0.8 % Lymphocyte pct 26.8 % Monocyte pct 8.2 % Eosinophil pct 3.4 % Basophil pct 0.3 % eGFR Collection Time: 05/23/24 4:16 AM Result Value Ref Range eGFR 48 (L) >=60 mL/min/1.73 m2 Assessment/Plan Principal Problem: Pneumonia due to infectious organism, unspecified laterality, unspecified part of lung This is a 59 y.o. 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 If no contrast extravasation will remove catheter for voiding trial. -Encourage po intake and ambulation -Patient has appt 05/30/[address] Last for post op check. Keep appointment as scheduled. * Ger Montemayor MD - 05/23/2024 8:20 AM CDT General Medicine Daily Progress Subjective Chief complaint of sob . 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 Patient was discharged from the hospital yesterday after she had her surgery. She reports having shortness of breath as well as cough productive of sputum. She reports exposure to family member that has COVID. She denies any chest pain, fevers, chills, abdominal pain, nausea, vomiting, diarrhea. Due to her symptoms she came to the ED for further evaluation. Seen and examined Sob resolved 05/23/2024 No new event Cystogram completed Past Medical History: Diagnosis Date Asthma Asthma; Comments: DNT 07/10/2014 - Chronic rhinitis 05/01/2024 Dysphagia Gastroesophageal reflux disease GERD HX OTHER MEDICAL 01-BARREL COATER HX OTHER MEDICAL 02-ROTOPRINTER HX OTHER MEDICAL 2009 capal tunnel release rt. HX OTHER MEDICAL vocal cord polyp; Comments: removed and benign. 2004 HX OTHER MEDICAL Allergies, seasonal; Comments: DNT 07/10/2014 - HX OTHER MEDICAL migraines; Comments: DNT 07/10/2014 - HX OTHER MEDICAL PVD; Comments: DNT 07/10/2014 - HX OTHER MEDICAL Stent Placement Hypercholesterolemia High cholesterol; Comments: DNT 07/10/2014 - Peripheral vascular disease (HCC) Peripheral vascular disease; Comments: 2 in each iliac. 3 surgeries. last procedure 01/08/2008 Objective Vitals: 24hr Min/Max: Temp Min: 36.2 ??C (97.1 ??F) Max: 36.5 ??C (97.7 ??F) Pulse Min: 50 Max: 98 BP Min: 102/54 Max: 138/61 Resp Min: 18 Max: 18 SpO2 Min: 95 % Max: 99 % Most Recent : Vitals: 05/23/24 0700 BP: 121/50 Pulse: 54 Resp: 18 Temp: 36.2 ??C (97.2 ??F) SpO2: 96% I/O last 2 completed shifts: In: 960 [P.O.:860; IV Piggyback:100] Out: 2250 [Urine:2250] No intake/output data recorded. Physical Exam: Physical Exam Eyes: EOMI, ROXANA, sclare non icteric Neck: supple, no nuchal ridigity, no gross carotid bruits appreciated ENT: No gross oral lesion, tongue midline, mucosa moist Respiratory: Lungs - decreased breath sounds at the bases of the lungs, no wheezing no rhonchi appreciated Cardiovascular: Heart sounds- [id number], no significant murmur or gallop GI: Abdomen-+BS, Non Tender, Non distended, No gross hepatomegaly Lower Ext: No gross edema, pedal artery pulses present bilaterally Neuro: Muscular Strength upper and lower extremities 5/5 bilaterally, sensory intact, cranial nerves 2-12 within normal limits, good coordination, normal speech Musculoskeletal: no gross joint erythema, edema, tenderness Genitourinary: No New change Skin: No new change Psychiatric: Normal affect, good judgment Lab/Radiology/Diagnostic Review: Laboratory review: Lab results in the last 24 hours: Recent Results (from the past 24 hour(s)) Respiratory pathogen panel Nasopharyngeal Collection Time: 05/22/24 9:21 AM Specimen: Nasopharyngeal Result Value Ref Range Influenza A RNA Not Detected Not Detected Influenza B RNA Not Detected Not Detected RSV RNA Not Detected Not Detected COVID-19 RNA Not Detected Not Detected Coronavirus 229E RNA Not Detected Not Detected Coronavirus HKU1 RNA Not Detected Not Detected Coronavirus NL63 RNA Not Detected Not Detected Coronavirus OC43 RNA Not Detected Not Detected Adenovirus DNA Not Detected Not Detected Metapneumovirus RNA Not Detected Not Detected Rhinovirus/Enterovirus RNA Not Detected Not Detected Parainfluenza 1 RNA Not Detected Not Detected Parainfluenza 2 RNA Not Detected Not Detected Parainfluenza 3 RNA Not Detected Not Detected Parainfluenza 4 RNA Not Detected Not Detected B. pertussis DNA Not Detected Not Detected B. parapertussis DNA Not Detected Not Detected C. pneumoniae DNA Not Detected Not Detected M. pneumoniae DNA Not Detected Not Detected Comprehensive metabolic panel Collection Time: 05/23/24 4:16 AM Result Value Ref Range Sodium 141 135 - 145 mmol/L Potassium, pl 3.3 3.3 - 4.9 mmol/L Chloride 105 97 - 110 mmol/L CO2 25 22 - 32 mmol/L Anion gap 12 2 - 15 mmol/L BUN 18 6 - 25 mg/dL Creatinine 1.27 (H) 0.60 - 1.10 mg/dL Glucose 94 70 - 199 mg/dL Calcium 8.5 8.5 - 10.3 mg/dL Bilirubin, total 0.2 0.1 - 1.2 mg/dL Protein, pl 5.3 (L) 6.5 - 8.5 g/dL Albumin 3.5 3.5 - 5.0 g/dL Alk phos 62 40 - 130 Units/L ALT 25 7 - 45 Units/L AST 27 10 - 45 Units/L Magnesium Collection Time: 05/23/24 4:16 AM Result Value Ref Range Magnesium 2.1 1.4 - 2.5 mg/dL CBC with auto differential Collection Time: 05/23/24 4:16 AM Result Value Ref Range WBC 9.8 3.8 - 9.9 K/cumm Hgb 11.5 (L) 11.9 - 15.5 g/dL Hct 33.0 (L) 35.6 - 45.5 % Plt 216 150 - 400 K/cumm MPV 9.9 9.1 - 12.3 fL RBC 3.70 (L) 3.90 - 5.20 M/cumm MCV 89.2 81.3 - 96.4 fL MCH 31.1 27.1 - 33.3 pg MCHC 34.8 32.3 - 35.7 g/dL RDW CV 13.1 11.1 - 14.9 % RDW SD 42.6 35.7 - 48.1 fL NRBC abs 0.00 0.00 - 0.01 K/cumm Differential, auto Collection Time: 05/23/24 4:16 AM Result Value Ref Range Neutrophil abs 5.9 1.5 - 6.5 K/cumm Imm gran abs 0.1 0.0 - 0.1 K/cumm Lymphocyte abs 2.6 0.8 - 3.3 K/cumm Monocyte abs 0.8 0.2 - 0.8 K/cumm Eosinophil abs 0.3 0.0 - 0.5 K/cumm Basophil abs 0.0 0.0 - 0.1 K/cumm Neutrophil pct 60.5 % Imm gran pct 0.8 % Lymphocyte pct 26.8 % Monocyte pct 8.2 % Eosinophil pct 3.4 % Basophil pct 0.3 % eGFR Collection Time: 05/23/24 4:16 AM Result Value Ref Range eGFR 48 (L) >=60 mL/min/1.73 m2 Current Facility-Administered Medications Medication Dose Route Frequency Provider Last Rate Last Admin acetaminophen (TYLENOL) tablet 650 mg 650 mg oral Q4H PRN Renée Kirby MD albuterol 2.5 mg /3 mL (0.083 %) nebulizer solution 2.5 mg 2.5 mg nebulization Q6H PRN (RT) Renée Kirby MD albuterol 2.5 mg /3 mL (0.083 %) nebulizer solution 2.5 mg 2.5 mg nebulization Q6H RONAK (RT) Ger Montemayor MD 2.5 mg at 05/22/24 0209 atorvastatin (LIPITOR) tablet 40 mg 40 mg oral Renée Roach MD 40 mg at 05/22/24 0824 cefTRIAXone (ROCEPHIN) 2,000 mg/20 mL in sterile water (premix) 2,000 mg 2,000 mg intravenous Q24H [facility] Abhinav Lorenz MD clopidogreL (PLAVIX) tablet 75 mg 75 mg oral Renée Roach MD 75 mg at 05/22/24 0824 doxycycline (VIBRAMYCIN) 100 mg in sodium chloride 0.9% 100 mL IVPB 100 mg intravenous BID Renée Kirby MD 100 mL/hr at 05/22/24 0825 100 mg at 05/22/24 0825 HYDROcodone-acetaminophen (NORCO) 5-325 mg per tablet 1 tablet 1 tablet oral Q6H PRN Renée Kirby MD metoprolol XL (TOPROL-XL) extended release tablet 50 mg 50 mg oral Renée Roach MD 50 mg at 05/22/24 0824 multivit nymvvopv-jkea-OE-calcium (THERA-M) tablet 1 tablet 1 tablet oral Renée Roach MD ondansetron ODT (ZOFRAN-ODT) disintegrating tablet 4 mg 4 mg oral Q6H PRN Renée Kirby MD Or ondansetron (ZOFRAN) injection 4 mg 4 mg intravenous Q6H PRN Renée Kirby MD pantoprazole DR (PROTONIX) extended release tablet 40 mg 40 mg oral Daily Renée Kirby MD 40 mg at 05/22/24 0824 polyethylene glycol (MIRALAX) packet 17 g 17 g oral Daily PRN Renée Kirby MD predniSONE (DELTASONE) tablet 50 mg 50 mg oral Q6H Abhinav Lorenz MD 50 mg at 05/21/24 2234 ramelteon (ROZEREM) tablet 8 mg 8 mg oral Nightly PRN Renée Kirby MD Assessment/Plan Principal Problem: Pneumonia due to infectious organism, unspecified laterality, unspecified part of lung No problem-specific Assessment & Plan notes found for this encounter. Shortness of breaths Chest x-ray shows small to moderate bilateral effusion with adjacent atelectasis and/or infiltrate Continue IV ceftriaxone and doxycycline in case of pneumonia Rapid COVID, rapid flu, RSV negative CTA chest no pe, no acute pulmonary pathology Supplemental O2 to maintain O2 sat in the 90s 05/22: CTPE: No PE or other acute abnormality identified in the chest. Trace pleural effusions and mild bibasilar atelectasis. Echo: Normal left ventricular systolic function with no focal wall motion abnormalities. Normal left ventricular size. Mild concentric left ventricular hypertrophy. Normal left ventricular diastolic function. Ejection fraction is measured at 59 %.Mild pulmonary hypertension based on right ventricular systolic pressure. Estimated peak RVSP is 40 mmHg. Mild tricuspid regurgitation. There is an anterior echo free space consistent with epicardial fat pad. 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 This may represent a small focus of contained leak. No free spillage of contrast into the pelvis is seen. Defer decision for harris catheter to Urology COPD not in exacerbation Continue home inhalers Hypertension, hyperlipidemia Continue home medication once reconciled Smoker a pack a day: counseled, declined NRT DVT prophylaxis lovenox Code status full code MDM; low complexity: * Albina Ger Mosquera MD - 05/22/2024 8:34 AM CDT General Medicine Daily Progress Subjective Chief complaint of sob . 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 Patient was discharged from the hospital yesterday after she had her surgery. She reports having shortness of breath as well as cough productive of sputum. She reports exposure to family member that has COVID. She denies any chest pain, fevers, chills, abdominal pain, nausea, vomiting, diarrhea. Due to her symptoms she came to the ED for further evaluation. Seen and examined Sob resolved Past Medical History: Diagnosis Date Asthma Asthma; Comments: DNT 07/10/2014 - Chronic rhinitis 05/01/2024 Dysphagia Gastroesophageal reflux disease GERD HX OTHER MEDICAL 01-BARREL COATER HX OTHER MEDICAL 02-ROTOPRINTER HX OTHER MEDICAL 2009 capal tunnel release [...] each iliac. 3 surgeries. last procedure 01/08/2008 Objective Vitals: 24hr Min/Max: Temp Min: 36.2 ??C (97.1 ??F) Max: 36.4 ??C (97.6 ??F) Pulse Min: 70 Max: 101 BP Min: 101/90 Max: 175/87 Resp Min: 16 Max: 29 SpO2 Min: 87 % Max: 100 % Most Recent : Vitals: 05/22/24 0721 BP: 140/70 Pulse: 70 Resp: 18 Temp: 36.2 ??C (97.2 ??F) SpO2: 97% I/O last 2 completed shifts: In: 500 [P.O.:400; IV Piggyback:100] Out: 1100 [Urine:1100] I/O this shift: In: 100 [IV Piggyback:100] Out: - Physical Exam: Physical Exam Eyes: EOMI, ROXANA, sclare non icteric Neck: supple, no nuchal ridigity, no gross carotid bruits appreciated ENT: No gross oral lesion, tongue midline, mucosa moist Respiratory: Lungs - decreased breath sounds at the bases of the lungs, no wheezing no rhonchi appreciated Cardiovascular: Heart sounds- [id number], no significant murmur or gallop GI: Abdomen-+BS, Non Tender, Non distended, No gross hepatomegaly Lower Ext: No gross edema, pedal artery pulses present bilaterally Neuro: Muscular Strength upper and lower extremities 5/5 bilaterally, sensory intact, cranial nerves 2-12 within normal limits, good coordination, normal speech Musculoskeletal: no gross joint erythema, edema, tenderness Genitourinary: No New change Skin: No new change Psychiatric: Normal affect, good judgment Lab/Radiology/Diagnostic Review: Laboratory review: Lab results in the last 24 hours: Recent Results (from the past 24 hour(s)) Magnesium Collection Time: 05/21/24 11:48 AM Result Value Ref Range Magnesium 2.1 1.4 - 2.5 mg/dL Troponin T high-sensitivity series (baseline, 2hr, 4hr, 6hr) Collection Time: 05/21/24 11:48 AM Result Value Ref Range Trop T hs 11 <=14 ng/L Comprehensive metabolic panel Collection Time: 05/21/24 2:29 PM Result Value Ref Range Sodium 139 135 - 145 mmol/L Potassium, pl 4.1 3.3 - 4.9 mmol/L Chloride 101 97 - 110 mmol/L CO2 19 (L) 22 - 32 mmol/L Anion gap 19 (H) 2 - 15 mmol/L BUN 13 6 - 25 mg/dL Creatinine 1.05 0.60 - 1.10 mg/dL Glucose 90 70 - 199 mg/dL Calcium 8.5 8.5 - 10.3 mg/dL Bilirubin, total 0.4 0.1 - 1.2 mg/dL Protein, pl 5.7 (L) 6.5 - 8.5 g/dL Albumin 3.5 3.5 - 5.0 g/dL Alk phos 73 40 - 130 Units/L ALT 17 7 - 45 Units/L AST 26 10 - 45 Units/L CBC with auto differential Collection Time: 05/21/24 2:29 PM Result Value Ref Range WBC 10.4 (H) 3.8 - 9.9 K/cumm Hgb 13.2 11.9 - 15.5 g/dL Hct 38.2 35.6 - 45.5 % Plt 198 150 - 400 K/cumm MPV 9.7 9.1 - 12.3 fL RBC 4.27 3.90 - 5.20 M/cumm MCV 89.5 81.3 - 96.4 fL MCH 30.9 27.1 - 33.3 pg MCHC 34.6 32.3 - 35.7 g/dL RDW CV 13.0 11.1 - 14.9 % RDW SD 42.9 35.7 - 48.1 fL NRBC abs 0.00 0.00 - 0.01 K/cumm Influenza A/B, RSV, and COVID-19 PCR Nasopharyngeal Collection Time: 05/21/24 2:29 PM Specimen: Nasopharyngeal Result Value Ref Range COVID-19 RNA Negative Negative Influenza A RNA Negative Negative Influenza B RNA Negative Negative RSV RNA Negative Negative Blood gas, venous Collection Time: 05/21/24 2:29 PM Result Value Ref Range pH, Venous 7.42 7.32 - 7.43 PCO2, Venous 36 (L) 40 - 50 mmHg PO2, Venous 35 mmHg HCO3 Venous, Calculated 23 20 - 30 mmol/L BE, venous -1 mmol/L aPTT Collection Time: 05/21/24 2:29 PM Result Value Ref Range aPTT 28 28 - 38 sec Pro B-type natriuretic peptide Collection Time: 05/21/24 2:29 PM Result Value Ref Range NT-proBNP 1,261 (H) <=300 pg/mL Protime-INR Collection Time: 05/21/24 2:29 PM Result Value Ref Range PT 11.3 9.7 - 13.0 sec INR 1.05 0.90 - 1.20 D-dimer, quantitative Collection Time: 05/21/24 2:29 PM Result Value Ref Range D-Dimer 2,662 (H) <=499 ng/mL FEU Differential, auto Collection Time: 05/21/24 2:29 PM Result Value Ref Range Neutrophil abs 8.5 (H) 1.5 - 6.5 K/cumm Imm gran abs 0.0 0.0 - 0.1 K/cumm Lymphocyte abs 1.1 0.8 - 3.3 K/cumm Monocyte abs 0.6 0.2 - 0.8 K/cumm Eosinophil abs 0.1 0.0 - 0.5 K/cumm Basophil abs 0.0 0.0 - 0.1 K/cumm Neutrophil pct 82.1 % Imm gran pct 0.2 % Lymphocyte pct 10.8 % Monocyte pct 5.3 % Eosinophil pct 1.2 % Basophil pct 0.4 % eGFR Collection Time: 05/21/24 2:29 PM Result Value Ref Range eGFR 61 >=60 mL/min/1.73 m2 Troponin T high-sensitivity 4-hour Collection Time: 05/21/24 4:17 PM Result Value Ref Range Trop T hs 11 <=14 ng/L Trop T hs delta See Comment ng/L Trop T hs pct delta See Comment % Trop T hs interp See Comment Troponin T high-sensitivity 6-hour Collection Time: 05/21/24 6:04 PM Result Value Ref Range Trop T hs 11 <=14 ng/L Trop T hs delta See Comment ng/L Trop T hs pct delta See Comment % Trop T hs interp See Comment Comprehensive metabolic panel Collection Time: 05/22/24 3:56 AM Result Value Ref Range Sodium 137 135 - 145 mmol/L Potassium, pl 3.9 3.3 - 4.9 mmol/L Chloride 101 97 - 110 mmol/L CO2 18 (L) 22 - 32 mmol/L Anion gap 18 (H) 2 - 15 mmol/L BUN 18 6 - 25 mg/dL Creatinine 1.00 0.60 - 1.10 mg/dL Glucose 151 70 - 199 mg/dL Calcium 8.6 8.5 - 10.3 mg/dL Bilirubin, total 0.2 0.1 - 1.2 mg/dL Protein, pl 5.7 (L) 6.5 - 8.5 g/dL Albumin 3.4 (L) 3.5 - 5.0 g/dL Alk phos 76 40 - 130 Units/L ALT 17 7 - 45 Units/L AST 19 10 - 45 Units/L Magnesium Collection Time: 05/22/24 3:56 AM Result Value Ref Range Magnesium 2.0 1.4 - 2.5 mg/dL CBC with auto differential Collection Time: 05/22/24 3:56 AM Result Value Ref Range WBC 5.5 3.8 - 9.9 K/cumm Hgb 12.7 11.9 - 15.5 g/dL Hct 37.2 35.6 - 45.5 % Plt 207 150 - 400 K/cumm MPV 10.3 9.1 - 12.3 fL RBC 4.14 3.90 - 5.20 M/cumm MCV 89.9 81.3 - 96.4 fL MCH 30.7 27.1 - 33.3 pg MCHC 34.1 32.3 - 35.7 g/dL RDW CV 12.8 11.1 - 14.9 % RDW SD 42.5 35.7 - 48.1 fL NRBC abs 0.00 0.00 - 0.01 K/cumm Differential, auto Collection Time: 05/22/24 3:56 AM Result Value Ref Range Neutrophil abs 4.8 1.5 - 6.5 K/cumm Imm gran abs 0.1 0.0 - 0.1 K/cumm Lymphocyte abs 0.5 (L) 0.8 - 3.3 K/cumm Monocyte abs 0.1 (L) 0.2 - 0.8 K/cumm Eosinophil abs 0.0 0.0 - 0.5 K/cumm Basophil abs 0.0 0.0 - 0.1 K/cumm Neutrophil pct 88.3 % Imm gran pct 1.1 % Lymphocyte pct 8.8 % Monocyte pct 1.6 % Eosinophil pct 0.0 % Basophil pct 0.2 % eGFR Collection Time: 05/22/24 3:56 AM Result Value Ref Range eGFR 64 >=60 mL/min/1.73 m2 Current Facility-Administered Medications Medication Dose Route Frequency Provider Last Rate Last Admin acetaminophen (TYLENOL) tablet 650 mg 650 mg oral Q4H PRN Renée Kirby MD albuterol 2.5 mg /3 mL (0.083 %) nebulizer solution 2.5 mg 2.5 mg nebulization Q6H PRN (RT) Renée Kirby MD albuterol 2.5 mg /3 mL (0.083 %) nebulizer solution 2.5 mg 2.5 mg nebulization Q6H RONAK (RT) Ger Montemayor MD 2.5 mg at 05/22/24 0209 atorvastatin (LIPITOR) tablet 40 mg 40 mg oral Renée Roach MD 40 mg at 05/22/24 0824 cefTRIAXone (ROCEPHIN) 2,000 mg/20 mL in sterile water (premix) 2,000 mg 2,000 mg intravenous Q24H [facility] Abhinav Lorenz MD clopidogreL (PLAVIX) tablet 75 mg 75 mg oral Renée Roach MD 75 mg at 05/22/24 0824 doxycycline (VIBRAMYCIN) 100 mg in sodium chloride 0.9% 100 mL IVPB 100 mg intravenous BID Renée Kirby MD 100 mL/hr at 05/22/24 0825 100 mg at 05/22/24 08 HYDROcodone-acetaminophen (NORCO) 5-325 mg per tablet 1 tablet 1 tablet oral Q6H PRN Renée Kirby MD metoprolol XL (TOPROL-XL) extended release tablet 50 mg 50 mg oral Renée Roach MD 50 mg at 05/22/24 0824 multivit xswoegrx-elpq-BL-calcium (THERA-M) tablet 1 tablet 1 tablet oral Renée Roach MD ondansetron ODT (ZOFRAN-ODT) disintegrating tablet 4 mg 4 mg oral Q6H PRN Renée Kirby MD Or ondansetron (ZOFRAN) injection 4 mg 4 mg intravenous Q6H PRN Renée Kirby MD pantoprazole DR (PROTONIX) extended release tablet 40 mg 40 mg oral Daily Renée Kirby MD 40 mg at 05/22/24 0824 polyethylene glycol (MIRALAX) packet 17 g 17 g oral Daily PRN Renée Kirby MD predniSONE (DELTASONE) tablet 50 mg 50 mg oral Q6H Abhinav Lorenz MD 50 mg at 05/21/244 ramelteon (ROZEREM) tablet 8 mg 8 mg oral Nightly PRN Renée Kirby MD Assessment/Plan Principal Problem: Pneumonia due to infectious organism, unspecified laterality, unspecified part of lung No problem-specific Assessment & Plan notes found for this encounter. Shortness of breaths Chest x-ray shows small to moderate bilateral effusion with adjacent atelectasis and/or infiltrate Continue IV ceftriaxone and doxycycline in case of pneumonia Rapid COVID, rapid flu, RSV negative CTA chest no pe, no acute pulmonary pathology Supplemental O2 to maintain O2 sat in the 90s 05/22: CTPE: No PE or other acute abnormality identified in the chest. Trace pleural effusions and mild bibasilar atelectasis. Echo: Normal left ventricular systolic function with no focal wall motion abnormalities. Normal left ventricular size. Mild concentric left ventricular hypertrophy. Normal left ventricular diastolic function. Ejection fraction is measured at 59 %.Mild pulmonary hypertension based on right ventricular systolic pressure. Estimated peak RVSP is 40 mmHg. Mild tricuspid regurgitation. There is an anterior echo free space consistent with epicardial fat pad. 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 Patient has a Harris catheter in place and for CT cystogram tomorrow morning and removal of catheter Urology following COPD not in exacerbation Continue home inhalers Hypertension, hyperlipidemia Continue home medication once reconciled Smoker a pack a day: counseled, declined NRT DVT prophylaxis lovenox Code status full code MDM; moderate complexity: documented in this encounter H&P Notes * Renée Kirby MD - 05/21/2024 7:30 PM CDT History and Physical Hospitalists services Date of service: Primary care provider: SUBJECTIVE SOB HPI: 59-year-old female with medical history significant for peripheral arterial disease status post stents, COPD, hyperlipidemia, hypertension transitional 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 Patient was discharged from the hospital yesterday after she had her surgery. She reports having shortness of breath as well as cough productive of sputum. She reports exposure to family member that has COVID. She denies any chest pain, fevers, chills, abdominal pain, nausea, vomiting, diarrhea. Due to her symptoms she came to the ED for further evaluation. In the ED vital signs significant for oxygen saturation 87% improved in the 90s On 3 L nasal cannula. Lab work shows elevated pro BNP 1261, troponin x3 unremarkable, VBG shows pH 7.42/36, WBC count 10.4, D-dimer 2662 blood culture obtained. Rapid COVID rapid flu RSV negative. Chest x-ray shows small to moderate bilateral effusion with adjacent atelectasis and or infiltrate. CTA chest ordered, Patient received DuoNeb, IV ceftriaxone, therapeutic Lovenox and was admitted for further management. Past Medical History: Diagnosis Date Asthma Asthma; Comments: DNT 07/10/2014 - Chronic rhinitis 05/01/2024 Dysphagia Gastroesophageal reflux disease GERD HX OTHER MEDICAL -BARREL COATER HX OTHER MEDICAL -ROTOPRINTER HX OTHER MEDICAL 2009 capal tunnel release [...] SURGICAL HISTORY 2003 polypectomy for vocal cords (Not in a hospital admission) Allergies Allergen Reactions Adhesive Itching, Rash and [...] cancer Mother's Sister 55 Review of Systems: 14 points ROS done pertinent as in the HPI OBJECTIVE Vitals: Arrival Vitals [05/21/24 1401] Temp 36.3 ??C (97.4 ??F) Pulse 91 Resp 16 BP 137/58 SpO2 96 % Temp src Temporal Heart Rate Source Patient Position BP Location FiO2 (%) 24hr Min/Max: Temp Min: 36.3 ??C (97.4 ??F) Max: 36.3 ??C (97.4 ??F) Pulse Min: 84 Max: 101 BP Min: 101/90 Max: 175/87 Resp Min: 16 Max: 29 SpO2 Min: 87 % Max: 98 % Most Recent : Vitals: 05/21/24 1915 BP: 161/73 Pulse: 88 Resp: 19 Temp: SpO2: 94% No intake or output data in the 24 hours ending 05/21/24 193 Physical exam: Eyes: EOMI, ROXANA, sclare non icteric Neck: supple, no nuchal ridigity, no gross carotid bruits appreciated ENT: No gross oral lesion, tongue midline, mucosa moist Respiratory: Lungs - decreased breath sounds at the bases of the lungs, no wheezing no rhonchi appreciated Cardiovascular: Heart sounds- [id number], no significant murmur or gallop GI: Abdomen-+BS, Non Tender, Non distended, No gross hepatomegaly Lower Ext: No gross edema, pedal artery pulses present bilaterally Neuro: Muscular Strength upper and lower extremities 5/5 bilaterally, sensory intact, cranial nerves 2-12 within normal limits, good coordination, normal speech Musculoskeletal: no gross joint erythema, edema, tenderness Genitourinary: No New change Skin: No new change Psychiatric: Normal affect, good judgment Lab/Radiology/Diagnostic Review: Recent Results (from the past 24 hour(s)) Magnesium Collection Time: 05/21/24 11:48 AM Result Value Ref Range Magnesium 2.1 1.4 - 2.5 mg/dL Troponin T high-sensitivity series (baseline, 2hr, 4hr, 6hr) Collection Time: 05/21/24 11:48 AM Result Value Ref Range Trop T hs 11 <=14 ng/L Comprehensive metabolic panel Collection Time: 05/21/24 2:29 PM Result Value Ref Range Sodium 139 135 - 145 mmol/L Potassium, pl 4.1 3.3 - 4.9 mmol/L Chloride 101 97 - 110 mmol/L CO2 19 (L) 22 - 32 mmol/L Anion gap 19 (H) 2 - 15 mmol/L BUN 13 6 - 25 mg/dL Creatinine 1.05 0.60 - 1.10 mg/dL Glucose 90 70 - 199 mg/dL Calcium 8.5 8.5 - 10.3 mg/dL Bilirubin, total 0.4 0.1 - 1.2 mg/dL Protein, pl 5.7 (L) 6.5 - 8.5 g/dL Albumin 3.5 3.5 - 5.0 g/dL Alk phos 73 40 - 130 Units/L ALT 17 7 - 45 Units/L AST 26 10 - 45 Units/L CBC with auto differential Collection Time: 05/21/24 2:29 PM Result Value Ref Range WBC 10.4 (H) 3.8 - 9.9 K/cumm Hgb 13.2 11.9 - 15.5 g/dL Hct 38.2 35.6 - 45.5 % Plt 198 150 - 400 K/cumm MPV 9.7 9.1 - 12.3 fL RBC 4.27 3.90 - 5.20 M/cumm MCV 89.5 81.3 - 96.4 fL MCH 30.9 27.1 - 33.3 pg MCHC 34.6 32.3 - 35.7 g/dL RDW CV 13.0 11.1 - 14.9 % RDW SD 42.9 35.7 - 48.1 fL NRBC abs 0.00 0.00 - 0.01 K/cumm Influenza A/B, RSV, and COVID-19 PCR Nasopharyngeal Collection Time: 05/21/24 2:29 PM Specimen: Nasopharyngeal Result Value Ref Range COVID-19 RNA Negative Negative Influenza A RNA Negative Negative Influenza B RNA Negative Negative RSV RNA Negative Negative Blood gas, venous Collection Time: 05/21/24 2:29 PM Result Value Ref Range pH, Venous 7.42 7.32 - 7.43 PCO2, Venous 36 (L) 40 - 50 mmHg PO2, Venous 35 mmHg HCO3 Venous, Calculated 23 20 - 30 mmol/L BE, venous -1 mmol/L aPTT Collection Time: 05/21/24 2:29 PM Result Value Ref Range aPTT 28 28 - 38 sec Pro B-type natriuretic peptide Collection Time: 05/21/24 2:29 PM Result Value Ref Range NT-proBNP 1,261 (H) <=300 pg/mL Protime-INR Collection Time: 05/21/24 2:29 PM Result Value Ref Range PT 11.3 9.7 - 13.0 sec INR 1.05 0.90 - 1.20 D-dimer, quantitative Collection Time: 05/21/24 2:29 PM Result Value Ref Range D-Dimer 2,662 (H) <=499 ng/mL FEU Differential, auto Collection Time: 05/21/24 2:29 PM Result Value Ref Range Neutrophil abs 8.5 (H) 1.5 - 6.5 K/cumm Imm gran abs 0.0 0.0 - 0.1 K/cumm Lymphocyte abs 1.1 0.8 - 3.3 K/cumm Monocyte abs 0.6 0.2 - 0.8 K/cumm Eosinophil abs 0.1 0.0 - 0.5 K/cumm Basophil abs 0.0 0.0 - 0.1 K/cumm Neutrophil pct 82.1 % Imm gran pct 0.2 % Lymphocyte pct 10.8 % Monocyte pct 5.3 % Eosinophil pct 1.2 % Basophil pct 0.4 % eGFR Collection Time: 05/21/24 2:29 PM Result Value Ref Range eGFR 61 >=60 mL/min/1.73 m2 Troponin T high-sensitivity 4-hour Collection Time: 05/21/24 4:17 PM Result Value Ref Range Trop T hs 11 <=14 ng/L Trop T hs delta See Comment ng/L Trop T hs pct delta See Comment % Trop T hs interp See Comment Troponin T high-sensitivity 6-hour Collection Time: 05/21/24 6:04 PM Result Value Ref Range Trop T hs 11 <=14 ng/L Trop T hs delta See Comment ng/L Trop T hs pct delta See Comment % Trop T hs interp See Comment XR CHEST 1 VIEW PORTABLE Result Date: 05/21/2024 Narrative: EXAM DESCRIPTION: XR CHEST 1 VIEW REASON FOR STUDY: Shortness of breath c/o SOB x a few days. Pt reports she had her kidney removed on Monday and was discharged yesterday. Pt reports she was exposed to Covid on Monday. TECHNIQUE: Single-view COMPARISON: 02/19/2023 FINDINGS: Central vascularity have normal caliber. Aortic arch well-defined on the left. Hazy opacities both bases are new from previous suggesting small to moderate effusions adjacent atelectasis and or infiltrate. Bony hypertrophic changes obscures apices. IMPRESSION: Small to moderate bilateral effusions with adjacent atelectasis and/or infiltrate. THIS IS AN ELECTRONICALLY VERIFIED FINAL REPORT 05/21/2024 3:44 PM -Electronically signed by Albert Barbosa M.D. RB: RB Report ID: [id number] Reading Location: [id number] ECG 12 lead Result Date: 05/21/2024 Narrative: Vent Rate: 85 bpm RR Interval: 700 msec FL Interval: 143 msec QRS Duration: 74 msec QT Interval: 384 msec QTC Interval: 426 msec P-R-T [place]: 76 - 18 - 63 degrees IMPRESSION: SINUS RHYTHM WITH OCCASIONAL VENTRICULAR PREMATURE COMPLEXES POSSIBLE LEFT ATRIAL ENLARGEMENT [-0.1mV P-WAVE IN V1/V2] BORDERLINE ECG Electronically Signed By: Current Facility-Administered Medications Medication Dose Route Frequency Provider Last Rate Last Admin diphenhydrAMINE (BENADRYL) tab/cap 50 mg 50 mg oral Once Abhinav Lorenz MD predniSONE (DELTASONE) tablet 50 mg 50 mg oral Q6H Abhinav Lorenz MD 50 mg at 05/21/24 1651 Current Outpatient Medications Medication Sig Dispense Refill albuterol HFA (PROVENTIL HFA,VENTOLIN HFA,PROAIR HFA) 90 mcg/actuation inhaler Inhale 2 puffs every6 (six) hours as needed for wheezing or shortness of breath 1 each 11 atorvastatin (LIPITOR) 40 mg tablet Take 1 tablet (40 mg total) by mouth every morning Bacillus coagulans (PROBIOTIC, B. COAGULANS, ORAL) Take by mouth every morning clopidogreL (PLAVIX) 75 mg tablet Take 1 tablet (75 mg total) by mouth every morning Last dose 05/10/2024 Start taking it tomorrow 05/21/2024 coenzyme Q10 200 mg capsule Take 1 capsule (200 mg total) by mouth every morning fluticasone propionate (FLONASE) 50 mcg/actuation nasal spray Administer 1 spray into each nostril as needed for rhinitis HYDROcodone-acetaminophen (NORCO) 5-325 mg per tablet Take 1 tablet by mouth every 6 (six) hours asneeded for pain 20 tablet 0 levoFLOXacin (LEVAQUIN) 500 mg tablet Take 1 tablet (500 mg total) by mouth daily for 5 days 5 tablet 0 metoprolol XL (TOPROL-XL) 50 mg extended release tablet Take 1 tablet (50 mg total) by mouth every morning multivitamin tablet Take 1 tablet by mouth every morning SUMAtriptan (IMITREX) 50 mg tablet May repeat dose once in 2 hours if no relief. Do not exceed 2 doses in 24 hours. 9 tablet 3 A/P Principal Problem: Pneumonia due to infectious organism, unspecified laterality, unspecified part of lung Resolved Problems: No resolved hospital problems. Shortness of breaths Chest x-ray shows small to moderate bilateral effusion with adjacent atelectasis and/or infiltrate Continue IV ceftriaxone and doxycycline in case of pneumonia Rapid COVID, rapid flu, RSV negative, sputum culture, urine Legionella, urine strep ordered CTA chest ordered to rule out PE due to elevated D-dimer. 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 Yarn Examiner variances may occur. Despite proofreading, typographical errors may occur. Renée Kirby MD Date of Service: 05/21/2024 documented in this encounter Consult Notes * Travis Tracy NP - 05/22/2024 12:45 PM CDTAssociated Order(s): Consult to Urology Consult Reason for Consult: Post op left nephroureterectomy 05/17/2024 Requesting Provider: Dr. Lorenz Consult to Urology Consult performed by: Travis Tracy NP Consult ordered by: Abhinav Lorenz MD Subjective Patient is a 59 y.o. female with hx of transitional cell carcinoma who underwent left nephroureterectomy with Dr. Last 05/17. Patient was discharged from [facility] 05/20 and reports she was feeling relatively well. She was not requiring narcotic pain meds as it was causing severe GERD. Tolerating PO intake. Reports that she woke up with a coughing fit when she got home and producing thick sputum. Thisresolved and then returned the following day. She then found out that a family member had been exposed to covid so she came into the ED for evaluation. CT chest PE negative for PE and covid was negative. Pain remains under good control. She still has indwelling catheter which is draining yellow urine. Creatinine stable at 1.00. Shortness of Breath Pertinent negatives include no abdominal pain. Past Medical History: Diagnosis Date Asthma Asthma; Comments: DNT 07/10/2014 - Chronic rhinitis 05/01/2024 Dysphagia Gastroesophageal reflux disease GERD HX OTHER MEDICAL 01-BARREL COATER HX OTHER MEDICAL 02-ROTOPRINTER HX OTHER MEDICAL 2009 capal tunnel release rt. HX OTHER MEDICAL vocal cord polyp; Comments: removed and benign. 2004 HX OTHER MEDICAL Allergies, seasonal; Comments: DNT [...] in 2004 and 2007 OTHER SURGICAL HISTORY 2004 polypectomy for vocal cords Medications Prior to Admission Medication Sig Dispense Refill Last Dose albuterol HFA (PROVENTIL HFA,VENTOLIN HFA,PROAIR HFA) 90 mcg/actuation inhaler Inhale 2 puffs every6 (six) hours as needed for wheezing or shortness of breath 1 each 11 05/21/2024 atorvastatin (LIPITOR) 40 mg tablet Take 1 tablet (40 mg total) by mouth every morning 05/21/2024 Bacillus coagulans (PROBIOTIC, B. COAGULANS, ORAL) Take by mouth every morning Past Week clopidogreL (PLAVIX) 75 mg tablet Take 1 tablet (75 mg total) by mouth every morning Last dose 05/10/2024 Start taking it tomorrow 05/21/2024 05/21/2024 levoFLOXacin (LEVAQUIN) 500 mg tablet Take 1 tablet (500 mg total) by mouth daily for 5 days 5 tablet 0 05/21/2024 metoprolol XL (TOPROL-XL) 50 mg extended release tablet Take 1 tablet (50 mg total) by mouth every morning 05/21/2024 coenzyme Q10 200 mg capsule Take 1 capsule (200 mg total) by mouth every morning Unknown fluticasone propionate (FLONASE) 50 mcg/actuation nasal spray Administer 1 spray into each nostril as needed for rhinitis Unknown HYDROcodone-acetaminophen (NORCO) 5-325 mg per tablet Take 1 tablet by mouth every 6 (six) hours asneeded for pain 20 tablet 0 Unknown multivitamin tablet Take 1 tablet by mouth every morning Unknown SUMAtriptan (IMITREX) 50 mg tablet May repeat dose once in 2 hours if no relief. Do not exceed 2 doses in 24 hours. 9 tablet 3 Unknown Allergies Allergen Reactions Adhesive Itching, Rash and Blisters Adhesive Tape-Silicones Itching, Rash and Blisters Other Itching, Rash and Blisters Metals Codeine Nausea only Povidone-Iodine Itching Social History Tobacco Use Smoking status: Former Current packs/day: 0.75 Average packs/day: 1 pack/day for 44.6 years (44.5 ttl pk-yrs) Types: Cigarettes Start date: 1979 Passive exposure: Past Smokeless tobacco: Never Substance and Sexual Activity Drug use: Yes Types: Tobacco Sexual activity: Defer Alcohol Use: Not At Risk (05/21/2024) AUDIT-C Frequency of Alcohol Consumption: Never Average [...] 54 Review of Systems: Review of Systems Respiratory: Positive for shortness of breath. Gastrointestinal: Negative for abdominal pain. Genitourinary: Negative for flank pain and hematuria. Objective Vitals: 24hr Min/Max: Temp Min: 36.2 ??C (97.1 ??F) Max: 36.4 ??C (97.6 ??F) Pulse Min: 58 Max: 101 BP Min: 101/90 Max: 175/87 Resp Min: 16 Max: 29 SpO2 Min: 87 % Max: 100 % Most Recent : Vitals: 05/22/24 1109 BP: 128/65 Pulse: 66 Resp: 18 Temp: 36.2 ??C (97.1 ??F) SpO2: 99% I/O last 2 completed shifts: In: 500 [P.O.:400; IV Piggyback:100] Out: 1100 [Urine:1100] I/O this shift: In: 100 [IV Piggyback:100] Out: 400 [Urine:400] Physicial Exam: Physical Exam Vitals reviewed. Constitutional: General: She is not in acute distress. HENT: Head: Normocephalic. Cardiovascular: Rate and Rhythm: Normal rate. Pulmonary: Effort: Pulmonary effort is normal. Abdominal: Palpations: Abdomen is soft. Tenderness: There is no abdominal tenderness. Neurological: Mental Status: She is alert and oriented to person, place, and time. Lab/Radiology/Diagnostic Review: Laboratory review: Lab results in the last 24 hours: Recent Results (from the past 24 hour(s)) Comprehensive metabolic panel Collection Time: 05/21/24 2:29 PM Result Value Ref Range Sodium 139 135 - 145 mmol/L Potassium, pl 4.1 3.3 - 4.9 mmol/L Chloride 101 97 - 110 mmol/L CO2 19 (L) 22 - 32 mmol/L Anion gap 19 (H) 2 - 15 mmol/L BUN 13 6 - 25 mg/dL Creatinine 1.05 0.60 - 1.10 mg/dL Glucose 90 70 - 199 mg/dL Calcium 8.5 8.5 - 10.3 mg/dL Bilirubin, total 0.4 0.1 - 1.2 mg/dL Protein, pl 5.7 (L) 6.5 - 8.5 g/dL Albumin 3.5 3.5 - 5.0 g/dL Alk phos 73 40 - 130 Units/L ALT 17 7 - 45 Units/L AST 26 10 - 45 Units/L CBC with auto differential Collection Time: 05/21/24 2:29 PM Result Value Ref Range WBC 10.4 (H) 3.8 - 9.9 K/cumm Hgb 13.2 11.9 - 15.5 g/dL Hct 38.2 35.6 - 45.5 % Plt 198 150 - 400 K/cumm MPV 9.7 9.1 - 12.3 fL RBC 4.27 3.90 - 5.20 M/cumm MCV 89.5 81.3 - 96.4 fL MCH 30.9 27.1 - 33.3 pg MCHC 34.6 32.3 - 35.7 g/dL RDW CV 13.0 11.1 - 14.9 % RDW SD 42.9 35.7 - 48.1 fL NRBC abs 0.00 0.00 - 0.01 K/cumm Influenza A/B, RSV, and COVID-19 PCR Nasopharyngeal Collection Time: 05/21/24 2:29 PM Specimen: Nasopharyngeal Result Value Ref Range COVID-19 RNA Negative Negative Influenza A RNA Negative Negative Influenza B RNA Negative Negative RSV RNA Negative Negative Blood gas, venous Collection Time: 05/21/24 2:29 PM Result Value Ref Range pH, Venous 7.42 7.32 - 7.43 PCO2, Venous 36 (L) 40 - 50 mmHg PO2, Venous 35 mmHg HCO3 Venous, Calculated 23 20 - 30 mmol/L BE, venous -1 mmol/L aPTT Collection Time: 05/21/24 2:29 PM Result Value Ref Range aPTT 28 28 - 38 sec Pro B-type natriuretic peptide Collection Time: 05/21/24 2:29 PM Result Value Ref Range NT-proBNP 1,261 (H) <=300 pg/mL Protime-INR Collection Time: 05/21/24 2:29 PM Result Value Ref Range PT 11.3 9.7 - 13.0 sec INR 1.05 0.90 - 1.20 D-dimer, quantitative Collection Time: 05/21/24 2:29 PM Result Value Ref Range D-Dimer 2,662 (H) <=499 ng/mL FEU Differential, auto Collection Time: 05/21/24 2:29 PM Result Value Ref Range Neutrophil abs 8.5 (H) 1.5 - 6.5 K/cumm Imm gran abs 0.0 0.0 - 0.1 K/cumm Lymphocyte abs 1.1 0.8 - 3.3 K/cumm Monocyte abs 0.6 0.2 - 0.8 K/cumm Eosinophil abs 0.1 0.0 - 0.5 K/cumm Basophil abs 0.0 0.0 - 0.1 K/cumm Neutrophil pct 82.1 % Imm gran pct 0.2 % Lymphocyte pct 10.8 % Monocyte pct 5.3 % Eosinophil pct 1.2 % Basophil pct 0.4 % eGFR Collection Time: 05/21/24 2:29 PM Result Value Ref Range eGFR 61 >=60 mL/min/1.73 m2 Troponin T high-sensitivity 4-hour Collection Time: 05/21/24 4:17 PM Result Value Ref Range Trop T hs 11 <=14 ng/L Trop T hs delta See Comment ng/L Trop T hs pct delta See Comment % Trop T hs interp See Comment Blood culture Blood Collection Time: 05/21/24 4:17 PM Specimen: Blood Result Value Ref Range Report Preliminary Report: No growth to date. Blood culture Blood Collection Time: 05/21/24 4:17 PM Specimen: Blood Result Value Ref Range Report Preliminary Report: No growth to date. Troponin T high-sensitivity 6-hour Collection Time: 05/21/24 6:04 PM Result Value Ref Range Trop T hs 11 <=14 ng/L Trop T hs delta See Comment ng/L Trop T hs pct delta See Comment % Trop T hs interp See Comment Legionella antigen Urine Collection Time: 05/21/24 11:52 PM Specimen: Urine Result Value Ref Range Legionella Ag Negative Negative Strep pneumoniae antigen, urine Urine Collection Time: 05/21/24 11:52 PM Specimen: Urine Result Value Ref Range S. pneumoniae Ag Negative Negative Comprehensive metabolic panel Collection Time: 05/22/24 3:56 AM Result Value Ref Range Sodium 137 135 - 145 mmol/L Potassium, pl 3.9 3.3 - 4.9 mmol/L Chloride 101 97 - 110 mmol/L CO2 18 (L) 22 - 32 mmol/L Anion gap 18 (H) 2 - 15 mmol/L BUN 18 6 - 25 mg/dL Creatinine 1.00 0.60 - 1.10 mg/dL Glucose 151 70 - 199 mg/dL Calcium 8.6 8.5 - 10.3 mg/dL Bilirubin, total 0.2 0.1 - 1.2 mg/dL Protein, pl 5.7 (L) 6.5 - 8.5 g/dL Albumin 3.4 (L) 3.5 - 5.0 g/dL Alk phos 76 40 - 130 Units/L ALT 17 7 - 45 Units/L AST 19 10 - 45 Units/L Magnesium Collection Time: 05/22/24 3:56 AM Result Value Ref Range Magnesium 2.0 1.4 - 2.5 mg/dL CBC with auto differential Collection Time: 05/22/24 3:56 AM Result Value Ref Range WBC 5.5 3.8 - 9.9 K/cumm Hgb 12.7 11.9 - 15.5 g/dL Hct 37.2 35.6 - 45.5 % Plt 207 150 - 400 K/cumm MPV 10.3 9.1 - 12.3 fL RBC 4.14 3.90 - 5.20 M/cumm MCV 89.9 81.3 - 96.4 fL MCH 30.7 27.1 - 33.3 pg MCHC 34.1 32.3 - 35.7 g/dL RDW CV 12.8 11.1 - 14.9 % RDW SD 42.5 35.7 - 48.1 fL NRBC abs 0.00 0.00 - 0.01 K/cumm Differential, auto Collection Time: 05/22/24 3:56 AM Result Value Ref Range Neutrophil abs 4.8 1.5 - 6.5 K/cumm Imm gran abs 0.1 0.0 - 0.1 K/cumm Lymphocyte abs 0.5 (L) 0.8 - 3.3 K/cumm Monocyte abs 0.1 (L) 0.2 - 0.8 K/cumm Eosinophil abs 0.0 0.0 - 0.5 K/cumm Basophil abs 0.0 0.0 - 0.1 K/cumm Neutrophil pct 88.3 % Imm gran pct 1.1 % Lymphocyte pct 8.8 % Monocyte pct 1.6 % Eosinophil pct 0.0 % Basophil pct 0.2 % eGFR Collection Time: 05/22/24 3:56 AM Result Value Ref Range eGFR 64 >=60 mL/min/1.73 m2 Assessment/Plan This is a 59 y.o. 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 Last for post op check. Keep appointment as scheduled. Cosigned by Leonila Coyle MD at 05/22/2024 1:47 PM CDT Associated attestation - Leonila Coyle MD - 05/22/2024 1:47 PM CDT I have seen and examined the patient on 05/22/24. I agree with the findings and the plan as documented by Jam above. Also discussed all of the above with Dr. Last who agrees with the plan. documented in this encounter ED Notes * Abhinav Lorenz MD - 05/21/2024 2:31 PM CDT HPI Chief Complaint Patient presents with Shortness of Breath Patient has been short of breath since she left the hospital. She was at [facility] for left nephrectomy. She is coughing up thick phlegm. No fever. No nausea or vomiting. No chest pain. Her son visited her in the hospital and he has COVID. That exposure was 3 days ago. 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, bilateral legs (HCC) 04/15/2024 Palpitations 04/15/2024 H/O bilateral mastectomy 06/20/2022 Sliding hiatal hernia 06/20/2022 Gross hematuria 10/29/2021 BMI 29.0-29.9,adult 10/29/2021 Migraine 10/29/2021 PVC (premature ventricular contraction) 10/19/2021 Dysphagia 06/17/2021 Bilateral carotid artery stenosis 04/26/2021 Tongue lesion 05/22/2019 Pain of left foot 07/10/2017 Thyroid nodule 06/22/2017 Left leg swelling 06/02/2017 Neuritis of left foot 06/02/2017 Swelling of foot joint, left 06/02/2017 Dyslipidemia 11/25/2016 GERD (gastroesophageal reflux disease) 11/25/2016 Closed displaced fracture of proximal phalanx of lesser toe of right foot 06/07/2016 Hallux valgus (acquired), left foot 06/07/2016 Hallux valgus (acquired), right foot 06/07/2016 Tailor's bunion of left foot 06/07/2016 Migraine 07/10/2014 Asthma 07/10/2014 Cigarette nicotine dependence without complication 07/10/2014 Hyperlipidemia 07/10/2014 Multiple-type hyperlipidemia 02/22/2014 Atopic rhinitis 02/22/2014 PVD (peripheral vascular disease) (HCC) 02/22/2014 Trigeminal neuralgia 02/19/2013 Past Medical History: Diagnosis Date Asthma Asthma; Comments: DNT 07/10/2014 - Chronic rhinitis 05/01/2024 Dysphagia Gastroesophageal reflux disease GERD HX OTHER MEDICAL -BARREL COATER HX OTHER MEDICAL -ROTOPRINTER HX OTHER MEDICAL 2009 capal tunnel release rt. HX OTHER MEDICAL vocal cord polyp; Comments: removed and benign. 2004 HX OTHER MEDICAL Allergies, seasonal; Comments: DNT [...] BUNIONECTOMY Right 11/2016 BUNIONECTOMY Left 02/2017 CHOLECYSTECTOMY 1997 Cholecystectomy CHOLECYSTECTOMY Cholecystectomy MASTECTOMY MODIFIED RADICAL / [...] 54 Social History Tobacco Use Smoking status: Every Day Current packs/day: 0.75 Average packs/day: 1 pack/day for 44.6 years (44.5 ttl pk-yrs) Types: Cigarettes Start date: 1979 Passive exposure: Past Smokeless tobacco: Never Substance and Sexual Activity Alcohol use: No Drug use: Yes Types: Tobacco Sexual activity: Defer Social History Social History Narrative Not on file Review of Systems Review of Systems Constitutional: Negative for chills and fever. HENT: Negative for congestion, rhinorrhea and sore throat. Eyes: Negative for pain. Respiratory: Positive for cough and shortness of breath. Cardiovascular: Negative for chest pain and leg swelling. Gastrointestinal: Negative for abdominal pain, diarrhea, nausea and vomiting. Genitourinary: Negative for difficulty urinating. Musculoskeletal: Negative for myalgias. Skin: Negative for rash. Neurological: Negative for dizziness and headaches. Psychiatric/Behavioral: Negative for behavioral problems. Physical Exam ED Triage Vitals Temp Pulse Resp BP SpO2 05/21/24 1401 05/21/24 1401 05/21/24 1401 05/21/24 14005/21/24 140 36.3 ??C (97.4 ??F) 91 16 137/58 96 % Temp src Heart Rate Source Patient Position BP Location FiO2 (%) 05/21/241400 -- 05/21/24202105/21/242021 -- Temporal Lying;HOB 30 degrees Left arm Height Height Method Weight Weight Method 05/21/24 1401 05/21/24 14005/21/24 14005/21/24 140 1.549 m (5' 1 ) Stated 61.2 kg (135 lb) Stated Physical Exam Vitals and nursing note reviewed. Constitutional: General: She is not in acute distress. Appearance: She is well-developed. HENT: Head: Normocephalic and atraumatic. Eyes: Conjunctiva/sclera: Conjunctivae normal. Cardiovascular: Rate and Rhythm: Normal rate and regular rhythm. Heart sounds: No murmur heard. Pulmonary: Effort: Pulmonary effort is normal. No respiratory distress. Breath sounds: Normal breath sounds. Abdominal: Palpations: Abdomen is soft. Tenderness: There is no abdominal tenderness. Comments: Normal surgical scars Musculoskeletal: General: No swelling. Cervical back: Neck supple. Skin: General: Skin is warm and dry. Capillary Refill: Capillary refill takes less than 2 seconds. Neurological: Mental Status: She is alert. Psychiatric: Mood and Affect: Mood normal. Labs Reviewed COMPREHENSIVE METABOLIC PANEL - Abnormal Result Value Sodium 139 Potassium, pl 4.1 Chloride 101 CO2 19 (*) Anion gap 19 (*) BUN 13 Creatinine 1.05 Glucose 90 Calcium 8.5 Bilirubin, total 0.4 Protein, pl 5.7 (*) Albumin 3.5 Alk phos 73 ALT 17 AST 26 CBC WITH AUTO DIFFERENTIAL - Abnormal WBC 10.4 (*) Hgb 13.2 Hct 38.2 Plt 198 MPV 9.7 RBC 4.27 MCV 89.5 MCH 30.9 MCHC 34.6 RDW CV 13.0 RDW SD 42.9 NRBC abs 0.00 BLOOD GAS, VENOUS - Abnormal pH, Venous 7.42 PCO2, Venous 36 (*) PO2, Venous 35 HCO3 Venous, Calculated 23 BE, venous -1 PRO B-TYPE NATRIURETIC PEPTIDE - Abnormal NT-proBNP 1,261 (*) D-DIMER, QUANTITATIVE - Abnormal D-Dimer 2,662 (*) DIFFERENTIAL AUTO - Abnormal Neutrophil abs 8.5 (*) Imm gran abs 0.0 Lymphocyte abs 1.1 Monocyte abs 0.6 Eosinophil abs 0.1 Basophil abs 0.0 Neutrophil pct 82.1 Imm gran pct 0.2 Lymphocyte pct 10.8 Monocyte pct 5.3 Eosinophil pct 1.2 Basophil pct 0.4 INFLUENZA A/B, RSV, AND COVID-19 PCR COVID-19 RNA Negative Influenza A RNA Negative Influenza B RNA Negative RSV RNA Negative Narrative: Is the Patient experiencing symptoms consistent with COVID?->Yes BLOOD CULTURE BLOOD CULTURE PNEUMONIA PCR WITH AEROBIC CULTURE AND GRAM STAIN LEGIONELLA ANTIGEN, URINE STREP PNEUMONIAE AG, URINE APTT aPTT 28 MAGNESIUM Magnesium 2.1 PROTIME-INR PT 11.3 INR 1.05 TROPONIN T HIGH-SENSITIVITY SERIES (BASELINE, 2HR, 4HR, 6HR) Trop T hs 11 TROPONIN T HIGH-SENSITIVITY 4-HR Trop T hs 11 Trop T hs delta See Comment Trop T hs pct delta See Comment Trop T hs interp See Comment TROPONIN T HIGH-SENSITIVITY 6-HOUR Trop T hs 11 Trop T hs delta See Comment Trop T hs pct delta See Comment Trop T hs interp See Comment EGFR eGFR 61 COMPREHENSIVE METABOLIC PANEL MAGNESIUM CBC WITH AUTO DIFFERENTIAL XR CHEST 1 VIEW PORTABLE Final Result CT Chest PE (CTA) W Contrast (Results Pending) Transthoracic Echo (TTE) Complete W Doppler/CF (Results Pending) [facility] Medical Decision Making Patient presents with shortness of breath. Recent left nephrectomy. Amount and/or Complexity of Data Reviewed Labs: ordered. Details: D-dimer 2662. WBC 10.4. BNP 1261 Radiology: ordered. Details: Chest x-ray: Bibasilar infiltrates ECG/medicine tests: ordered and independent interpretation performed. Details: EKG: Sinus rhythm, rate 85, PVC, LAE Discussion of management or test interpretation with external provider(s): Differential diagnosis: Pneumonia, PE. Will admit for pneumonia given her hypoxia. Will get CT scan after premedication. Risk OTC drugs. Prescription drug management. Decision regarding hospitalization. ED Course as of [id number] Time: 05/21 1632 Comment: Dr. Montemayor will admit. By: Abhinav Lorenz MD Time: 05/21 1704 Comment: Dr. Nayak was consulted. Okay to give contrast and Lovenox. By: Abhinav Lorenz MD Time: 05/21 1754 Comment: Patient will have CT of the chest with contrast after premedication. By: Abhinav Lorenz MD Final diagnoses: Pneumonia due to infectious organism, unspecified laterality, unspecified part of lung Shortness of breath Abhinav Lorenz MD 05/21/242156 * Umu Kennedy RN - 05/21/2024 1:59 PM CDT Pt to ED for c/o SOB x a few days. Pt reports she had her kidney removed on Monday and was discharged yesterday. Pt reports she was exposed to Covid on Monday. documented in this encounter Miscellaneous Notes * Provider Query - Ger Montemayor MD - 05/23/2024 1:05 PM CDT IV Lasix was ordered for administration on 05/22. Specify a diagnosis to support the need for this medication. ___ CHF (please specify type and acuity below if known) ___ Fluid overload ___ Other, specify below Additional Provider Response: Possible diastolic chf Clinical Indicators/Treatments: H&P states: Echocardiogram ordered to assess for CHF Discharge Summary states: She reports having shortness of breath as well as cough productive of sputum. Lab work shows elevated pro BNP 1261. Chest x-ray shows small to moderate bilateral effusion with adjacent atelectasis and or infiltrate. Echo: Normal left ventricular systolic function with no focal wall motion abnormalities. Normal left ventricular size. Mild concentric left ventricular hypertrophy. Normal left ventricular diastolic function. Ejection fraction is measured at 59 %.Mild pulmonary hypertension based on right ventricular systolic pressure. Treatment: IV Lasix, per discharge summary will dc on lasix 20 mg po daily References: From the ICD-10-CM Official Guidelines for Coding and Reporting, use of terms such as likely, suspected, possible, or probable (associated with a specific diagnosis that is being evaluated, monitored, or treated as if it exists) are acceptable and can be coded in the inpatient setting when documented at the time of discharge. This documentation will become part of the patient???s medical record. Sincerely, Nan Newton RN, CCDS [phone] Clinical Perioperative Educator * Provider Query - Ger Montemayor MD - 05/23/2024 1:05 PM CDT Please specify the ACUITY of Heart Failure, and document in the medical record and on the form below. Acuity __x_ Acute ___ Chronic (Compensated) ___ Acute on Chronic (Decompensated/Exacerbated) ___ Other Additional Provider Response: na Clinical Indicators/Treatments: 05-23-2024 Per Query Additional Provider Response: Possible diastolic chf Discharge Summary states: She reports having shortness of breath as well as cough productive of sputum. Lab work shows elevated pro BNP 1261. Chest x-ray shows small to moderate bilateral effusion with adjacent atelectasis and or infiltrate. Echo: Normal left ventricular systolic function with no focal wall motion abnormalities. Normal left ventricular size. Mild concentric left ventricular hypertrophy. Normal left ventricular diastolic function. Ejection fraction is measured at 59 %.Mild pulmonary hypertension based on right ventricular systolic pressure. Treatment: IV Lasix, per discharge summary will dc on lasix 20 mg po daily References: CHF Diagnostic Criteria CHF The commonly used [place] Diagnostic Criteria for Heart Failure requires the presence of 2 major criteria or 1 major and 2 minor criteria to make the diagnosis of heart failure. MAJOR CRITERIA MINOR CRITERIA Acute Pulmonary Edema Cardiomegaly Hepatojugular Reflux Neck Vein Distention Paroxysmal Nocturnal Dyspnea/Orthopnea Ankle Edema Dyspnea on Exertion Hepatomegaly Nocturnal Cough Pleural Effusion Tachycardia: HR>120 bpm This diagnostic tool is highly sensitive for the diagnosis of heart failure but has a relatively low specificity There is no single, noninvasive diagnostic test that serves as a gold standard for HF, since it is largely a clinical diagnosis based upon a careful history, physical examination, laboratory, and imaging data. Diastolic dysfunction or systolic dysfunction without mention of heart failure is not considered heart failure. If a provider believes patient has CHF in the absence of above clinical indicators, please documentrationale and clinical impression in detail. If acute or acute/chronic CHF is suspected and no IV diuretics are provided, please provide detailed rationale regarding acuity. General CHF Documentation Practices To be reported accurately, all instances of CHF require documentation of both ACUITY and TYPE Acuity: Acute-- rapid onset of new or worsening signs and symptoms of HF Chronic Acute on Chronic (may also be documented as ???exacerbated?? or ???decompensated?? ) Type: Systolic Includes HFrEF (LVEF </= 40%) and HFmrEF (LVEF 40-49%) Diastolic (or HFpEF)--LVEF >/= 50% with consistent findings on echo or an elevated LVEDP in the presence of a normal or reduced LVEDV on cardiac catheterization Combined systolic and diastolic Right-sided HF-- may be due to systolic left-sided HF, RV cardiomyopathy, valvular disease or lung disease such as pulmonary HTN, PE, or COPD Document any of the following if applicable: Biventricular failure End stage heart failure (AHA/ACC classification stage D) Left ventricular heart failure Rheumatic heart failure CHF References: Heart failure: Clinical manifestations and diagnosis in adults - UpToDate The epidemiology of congestive heart failure: the [place] Heart Study perspective - [facility] (nih.gov) Congestive Heart Failure - StatPearls - NCBI Bookshelf (nih.gov) Acute Heart Failure: Definition, Classification and Epidemiology - [facility] (nih.gov) From the ICD-10-CM Coding Guidelines, use of terms such as likely, suspected, possible, or probable(associated with a specific diagnosis that is being evaluated, monitored, or treated as if it exists) are acceptable and can be coded in the inpatient setting when documented at the time of discharge. This documentation will become part of the patient???s medical record. Sincerely, Nan Newton RN, CCDS [phone] Clinical Perioperative Educator * Plan of Care - Nkechi Villalobos RN - 05/23/2024 12:39 PM CDT Problem: Discharge Planning Goal: Understanding discharge needs will improve Outcome: Adequate for Discharge Flowsheets (Taken 05/23/2024 09) Understanding of discharge needs will improve: Identify discharge barriers Problem: Disease Process Goal: Knowledge of disease or condition will improve Outcome: Adequate for Discharge Flowsheets (Taken 05/23/2024 09) Knowledge of disease or condition will improve: Assess barriers to learning Problem: Medication Regimen Goal: Knowledge of medication regimen will improve Outcome: Adequate for Discharge Flowsheets (Taken 05/23/2024 09) Knowledge of medication regimen will improve: Assess physical and emotional readiness to learn Assess comprehension of information provided about medications Goals: Clinical Goals for the Shift: VSS, complete urology procedures Care Home Patient Centered Goal for Treatment: return to baseline Summary: harris catheter removed following cytoscope, PVR 34mL. Adequate for discharge. * Plan of Care - Che Tijerina RN - 05/23/2024 4:52 AM CDT Problem: Discharge Planning Goal: Understanding discharge needs will improve Outcome: Progressing Flowsheets (Taken 05/22/2024 08 by Nkechi Villalobos, RN) Understanding of discharge needs will improve: Discuss information regarding discharge instructions Identify discharge barriers Problem: Disease Process Goal: Knowledge of disease or condition will improve Outcome: Progressing Problem: Medication Regimen Goal: Knowledge of medication regimen will improve Outcome: Progressing Goals: Clinical Goals for the Shift: VSS, safety and comfort Care Home Patient Centered Goal for Treatment: Return to baseline Summary: VSS, no c/o pain. Surgical sites to abd are clean, dry and intact. Plan is for pt to have cystogram this morning, pt does not wish to sign consent at this time and wants to talk to the doctor about the procedure before doing so. Pt is resting in bed, call light within reach and no other needs known at this time. * Plan of Care - Nkechi Villalobos RN - 05/22/2024 3:08 PM CDT Problem: Discharge Planning Goal: Understanding discharge needs will improve Outcome: Progressing Flowsheets (Taken 05/22/2024 08) Understanding of discharge needs will improve: Discuss information regarding discharge instructions Identify discharge barriers Problem: Disease Process Goal: Knowledge of disease or condition will improve Outcome: Progressing Flowsheets (Taken 05/22/2024799) Knowledge of disease or condition will improve: Assess barriers to learning Assess knowledge level of disease process or condition Problem: Medication Regimen Goal: Knowledge of medication regimen will improve Outcome: Progressing Flowsheets (Taken 05/22/2024799) Knowledge of medication regimen will improve: Assess physical and emotional readiness to learn Teach medication schedule Teach potential side effects Goals: Clinical Goals for the Shift: VSS, stable respiratory function Slag Skimmer Patient Centered Goal for Treatment: Return to baseline Summary: IV antibiotics discontinued, patient scheduled for cystogram in AM 05/23. Family at bedside, updated on plan of care. Patient is currently resting in the chair, call light in reach and no complaints voiced at this time. * Initial Assessments - Caroline Zimmerman RN - 05/22/2024 11:20 AM CDT CM Initial Assessment Interview Note Information Obtained From: Patient (05/22/241119) Admission Source: ED from home Impression: shortness of breath Plan Includes: Assessment and DC planning Primary Source of Transportation: Does the patient need discharge transport arranged?: No (08/14/24 1120) Health Insurance Coverage: [facility] Choice Plus Prescription Coverage: yes Pharmacy: [id number] - [facility] [address] [id number] Primary Care Provider: Karson Forbes MD Prior to Admission: Functional Status: Independent with ADLs Primary Caregiver: Self Support System: Family members, Children, [employer]y community Home Care Services: No Outpatient Services: No Durable Medical Equipment: None Living Arrangements: Children Type of Residence: Private residence Steps in home?: Yes, Outside of home Number of steps outside: 2 steps Medication management: Independent (05/22/241119) SDOH: Transportation: In the past 12 months, has lack of transportation kept you from medical appointments or from getting medications?: No In the past 12 months, has lack of transportation kept you from meetings, work, or from getting things needed for daily living?: No (05/22/241411) Financial Resource: How hard is it for you to pay for the very basics like food, housing, medical care, and heating?: Not hard at all (05/22/241411) Housing: In the last 12 months, was there a time when you were not able to pay the mortgage or rent on time?: No In the past 12 months, how many times have you moved where you were living?: 0 At any time in the past 12 months, were you homeless or living in a mcfp (including now)?: No (05/22/241411) Utilities: No, (05/22/241411) Social Connections: In a typical week, how many times do you talk on the phone with family, friends, or neighbors?: More than three times a week How often do you get together with friends or relatives?: More than three times a week How often do you attend pentecostalism or methodist services?: More than 4 times per year Do you belong to any clubs or organizations such as pentecostalism groups, unions, fraternal or athletic groups, or school groups?: Yes How often do you attend meetings of the clubs or organizations you belong to?: More than 4 times per year Are you , , , , never , or living with a partner?: (05/22/241411) Food Insecurity: Within the past 12 months, you worried that your food would run out before you got the money to buymore.: Never true Within the past 12 months, the food you bought just didn't last and you didn't have money to get more.: Never true (05/22/241411) Alcohol Use: PHQ Screening Potential discharge needs include: Home Health: None (05/22/241119) OP Services: Dialysis: Behavioral Health Services: Behavioral Health Services: No (05/22/241119) Anticipated Level of Care: Anticipated discharge level of care: Private residence Pt/Family agrees with Anticipated Level of Care: Yes (05/22/241119) Patient expects to be Discharged to: Private residence, (05/22/241119) Additional Information: DC plan discussed with patient, her mother, and her [id number] in her room. Patient's Mom will be her ride home. Patient lives with her son (he lives in her basement), andhe helps her when she needs it. She works from home, drives, and is independent. She belongs to clubs, attends meetings, works with [employer] at her pentecostalism and keeps quite busy. She currently hasa urology consult d/t her recent surgery at [facility], and tells me that the plan is to get a cystogram in the morning, and if it is clear, she may possibly have her harris removed. She was notgetting any C after her DC from [facility], was just going to follow up in a week with urology. She does not have any DME, does use a humidifier at night. Her primary physician will now be gabby Liz will not actually get established with him until her appointment in June, as her other physician retired. Barrier to DC will be non-resolution of shortness of breath and any complications from her nephrectomy. No new home needs are anticipated, CM will follow. Patient's Identified Problem/Goal Problem: Ensure acute medical needs are met and that patient has a safe discharge plan. Goal: Secure a discharge plan that patient/family are agreeable with and ensure patient has continuum of care. Case management will follow for discharge planning and send referrals as needed. Caroline Zimmerman RN, BSN, CM * Plan of Care - Che Tijerina RN - 05/22/2024 4:19 AM CDT Problem: Discharge Planning Goal: Understanding discharge needs will improve Outcome: Progressing Flowsheets (Taken 05/22/2024 6872) Understanding of discharge needs will improve: Identify discharge barriers Identify discharge learning needs (meds, wound care, etc.) Problem: Disease Process Goal: Knowledge of disease or condition will improve Outcome: Progressing Problem: Medication Regimen Goal: Knowledge of medication regimen will improve Outcome: Progressing Goals: Clinical Goals for the Shift: VSS, safety and comfort Summary: VSS. New admission this shift, continue with current orders. Pt is resting in the chair with the call light within reach. * ED Procedure Note - Abhinav Lorenz MD - 05/21/2024 2:58 PM CDTAssociated Order(s): ECG 12 lead Procedure ECG 12 lead Date/Time: 05/21/2024 2:58 PM Performed by: Abhinav Lorenz MD Authorized by: Abhinav Lorenz MD Rate: ECG rate: 85 ECG rate assessment: normal Rhythm: Rhythm: sinus rhythm Ectopy: Ectopy: PVCs Other findings: Other findings: LAE Interpretation: Interpretation: abnormal Abhinav Lorenz MD 05/21/24 1458 documented in this encounter Plan of Treatment Upcoming Encounters Date Type Department Care Team (Late st Contact Info) Description 02/04/2025 9:30 AM CDT Hospital Encounter [facility] [address] [place] [address] Vic Gaines, DO [address] [address] 02/04/2025 9:30 AM CDT - 02/04/2025 10:00 AM CDT Surgery [facility] Digestive [facility] [address] [place] [address] Vic Gaines, DO [address] [address] COLONOSCOPY Scheduled Procedures Name Priority Associated Diagnoses Date/Ti me COLONOSCOPY Encounter for screening colonoscopy 02/04/2025 9:30 AM CDT documented as of this encounter Procedures Procedure Name Priority Date/Time Associated Diagnosis Comments CYSTOGRAM IP Routine 05/23/2024 10:19 AM CDT EGFR Routine 05/23/2024 4:16 AM CDT DIFFERENTIAL AUTO Routine 05/23/2024 4:1 6 AM CDT CBC WITH AUTO DIFFERENTIAL Routine 05/23/2024 4:16 AM CDT MAGNESIUM Routine 05/23/2024 4:16 AM CDT COMPREHENSIVE METABOLIC PANEL Routine 05/23/2024 4:16 AM CDT RESPIRATORY PATHOGEN PANEL Routine 05/22/2024 9:21 AM CDT TRANSTHORACIC ECHO (TTE) COMPLETE W DOPPLER/CF WO CONTRAST Routine 05/22/2024 8:10 AM CDT EGFR Routine 05/22/2024 3:56 AM CDT DIFFERENTIAL AUTO Routine 05/22/2024 3:5 6 AM CDT CBC WITH AUTO DIFFERENTIAL Routine 05/22/2024 3:56 AM CDT MAGNESIUM Routine 05/22/2024 3:56 AM CDT COMPREHENSIVE METABOLIC PANEL Routine 05/22/2024 3:56 AM CDT STREP PNEUMONIAE AG, URINE Routine 05/21/2024 11:52 PM CDT LEGIONELLA ANTIGEN, URINE Routine 05/21/2024 11:[address] CHEST PE W CONTRAST ED 05/21/2024 9:36 PM CDT TROPONIN T HIGH-SENSITIVITY 6-HOUR Timed 05/21/2024 6:04 PM CDT TROPONIN T HIGH-SENSITIVITY 4-HR Timed 05/21/2024 4:17 PM CDT BLOOD CULTURE STAT 05/21/2024 4:17 PM CDT BLOOD CULTURE STAT 05/21/2024 4:17 PM CDT XR CHEST 1 VIEW ED 05/21/2024 3:25 PM CDT ECG 12-LEAD Routine 05/21/2024 2:32 PM CDT INFLUENZA A/B, RSV, AND COVID-19 PCR Routine 05/21/2024 2:29 PM CDT EGFR STAT 05/21/2024 2:29 PM CDT DIFFERENTIAL AUTO STAT 05/21/2024 2:2 9 PM CDT PRO B-TYPE NATRIURETIC PEPTIDE STAT 05/21/2024 2:29 PM CDT CBC WITH AUTO DIFFERENTIAL STAT 05/21/2024 2:29 PM CDT APTT STAT 05/21/2024 2:29 PM CDT PROTIME-INR STAT 05/21/2024 2:29 PM CDT D-DIMER, QUANTITATIVE STAT 05/21/2024 2:29 PM CDT BLOOD GAS, VENOUS Routine 05/21/2024 2:2 9 PM CDT COMPREHENSIVE METABOLIC PANEL STAT 05/21/2024 2:29 PM CDT TROPONIN T HIGH-SENSITIVITY SERIES (BASELINE, 2HR, 4HR, 6HR) Routine 05/21/2024 11:48 AM CDT MAGNESIUM Routine 05/21/2024 11:48 AM CDT documented in this encounter Results * FL Cystogram (05/23/2024 10:19 AM CDT) Anatomical Region Laterality Modality Body N/A Radio Fluoroscop y 05/23/2024 10:2 6 AM CDT Narrative 05/23/2024 11:06 AM CDT EXAM DESCRIPTION: ?? FL CYSTOGRAM REASON FOR STUDY: Status post left nephroureterectomy--checking for contrast extravasation prior to void trial ?? Time: 0.5 min ??Dose: 89.80 mGy ?? COMPARISON: ?? Abdomen pelvis CT 11/19/2021 RADIATION DOSE: Dose: ??1031.7 ?? uGym2 Dose Area Product (DAP) PROCEDURE: Questions were answered. ??An indwelling Harris catheter was present upon patient arrival to the fluoroscopy suite. ??Bladder filled under fluoroscopic monitoring with approximately ?? 150 ??ml of non-ionic contrast via gravity drip. FINDINGS: Court Supervisor image demonstrates multiple left pelvic clips. ??Aortoiliac stents are present. ??Multiple right-sided surgical clips are also present.. Early filling images demonstrate no evidence of extravasation. ??Urinary bladder was filled with contrast to patient tolerance. ??On the steep oblique images, projecting near the left ureterovesicular junction, there is a 7 mm irregular focus of density. ??On the postdrainage steep oblique image, there is a similar sized focus of density projecting in the same region. ??This may represent a small contained leak. ??There is no evidence of free spillage of contrast into the pelvis. ?? IMPRESSION: 7 mm focus of irregularity density projecting near the left ureterovesicular junction on the steep oblique images. ??This may represent a small focus of contained leak. ??No free spillage of contrast into the pelvis is seen. I discussed the findings in detail with CRISTIANO Tracy from urology at 10:58 a.m. on 05/23/2024 THIS IS AN ELECTRONICALLY VERIFIED FINAL REPORT 05/23/2024 11:06 AM - Electronically signed by ??Trent Tijerina M.D. MZ: FERNANDO D: ??05/23/2024 11:05 AM T: ??05/23/2024 11:06 AM Report ID: [id number] Reading Location: ??[id number] Procedure Note Trent Tijerina MD - 05/23/2024 EXAM DESCRIPTION: FL CYSTOGRAM REASON FOR STUDY: Status post left nephroureterectomy--checking forcontrast extravasation prior to void trial Time: 0.5 min Dose: 89.80 mGy COMPARISON: Abdomen pelvis CT 11/19/2021 RADIATION DOSE: Dose: 1031.7 uGym2 Dose Area Product (DAP) PROCEDURE: Questions were answered. An indwelling Harris catheter waspresent upon patient arrival to the fluoroscopy suite. Bladder filled under fluoroscopic monitoring with approximately 150 ml of non-ionic contrastvia gravity drip. FINDINGS: Court Supervisor image demonstrates multiple left pelvic clips. Aortoiliac stentsare present. Multiple right-sided surgical clips are also present.. Early filling images demonstrate no evidence of extravasation. Urinary bladder was filled with contrast to patient tolerance. On the steepoblique images, projecting near the left ureterovesicular junction, there is a 7mm irregular focus of density. On the postdrainage steep oblique image,there is a similar sized focus of density projecting in the same region. This may represent a small contained leak. There is no evidence of free spillageof contrast into the pelvis. IMPRESSION: 7 mm focus of irregularity density projecting near the leftureterovesicular junction on the steep oblique images. This may represent a small focus of contained leak. No free spillage of contrast into the pelvis is seen. I discussed the findings in detail with CRISTIANO Tracy from urology at10:58 a.m. on 05/23/2024 THIS IS AN ELECTRONICALLY VERIFIED FINAL REPORT 05/23/2024 11:06 AM - Electronically signed by Trent Tijerina M.D. MZ: MZ Report ID: [id number] Reading Location: [place] [address] us Travis Tracy ACQUISITIONS ASSISTANT IMG FLUOROSCOPY PROCEDURES F inal Result * (ABNORMAL) eGFR (05/23/2024 4:16 AM CDT) eGFR 48(L) >=60 mL/min/1. 73 m2 Comment: Interpretive Data [...] interpretive data was last reviewed 2021. Blood 05/23/2024 4:16 AM CDT 05/23/2024 4:58 AM CDT us Renée Kirby MD LAB BLOOD ORDERABLES Fi nal Result [facility] ([place]) 1 [facility] Department [place] [address] * Differential, auto (05/23/2024 4:16 AM CDT) Neutrophil abs 5.9 1.5 - 6.5 K/cumm Imm gran abs 0.1 0.0 - 0.1 K/cumm [facility] ([place]) Lymphocyte abs 2.6 0.8 - 3.3 K/cumm [facility] ([place]) Monocyte abs 0.8 0.2 - 0.8 K/cumm [facility] ([place]) Eosinophil abs 0.3 0.0 - 0.5 K/cumm [facility] ([place]) Basophil abs 0.0 0.0 - 0.1 K/cumm [facility] ([place]) Neutrophil pct 60.5 % [facility] ([place]) Comment: Interpretive [...] was last revised on 2018. Lymphocyte pct 26.8 % [facility] ([place]) Comment: Interpretive Data Percent cell count reference ranges are not reported, since discordance with absolute values may lead to misinterpretation of CBC data. Current Interpretive Data was last revised on 2018. Monocyte pct 8.2 % [facility] ([place]) Comment: Interpretive Data Percent cell count reference ranges are not reported, since discordance with absolute values may lead to misinterpretation of CBC data. Current Interpretive Data was last revised on 2018. Eosinophil pct 3.4 % [facility] ([place]) Comment: Interpretive Data Percent cell count reference ranges are not reported, since discordance with absolute values may lead to misinterpretation of CBC data. Current Interpretive Data was last revised on 2018. Basophil pct 0.3 % [facility] ([place]) Comment: Interpretive Data Percent cell count reference ranges are not reported, since discordance with absolute values may lead to misinterpretation of CBC data. Current Interpretive Data was last revised on 2018. Blood 05/23/2024 4:16 AM CDT 05/23/2024 4:58 AM CDT Renée Kirby MD LAB BLOOD ORDERABLES Fi nal Result Performing Organization Address City/[facility]/ZIP Co de Phone Number [facility] ([place]) 1 [facility] Department [place] [address] * (ABNORMAL) CBC with auto differential (05/23/2024 4:16 AM CDT) WBC 9.8 3.8 - 9.9 K/cumm Hgb 11.5(L) 11.9 - 15.5 g/dL [facility] Hct 33.0(L) 35.6 - 45.5 % [facility] ([place]) Plt 216 150 - 400 K/cumm [facility] ([place]) MPV 9.9 9.1 - 12.3 fL [facility] RBC 3.70(L) 3.90 - 5.20 M/cumm [facility] MCV 89.2 81.3 - 96.4 fL [facility] ([place]) MCH 31.1 27.1 - 33.3 pg [facility] ([place] MCHC 34.8 32.3 - 35.7 g/dL [facility] ([place]) RDW CV 13.1 11.1 - 14.9 % [facility] RDW SD 42.6 35.7 - 48.1 fL [facility] ([place] NRBC abs 0.00 0.00 - 0.01 K/cumm [facility] ([place] Blood 05/23/2024 4:16 AM CDT 05/23/2024 4:58 AM CDT Renée Kirby MD LAB BLOOD ORDERABLES Fi nal Result [facility] ([place]) 1 [facility] Department [place] [address] * Magnesium (05/23/2024 4:16 AM CDT) Magnesium 2.1 1.4 - 2.5 mg/dL Blood 05/23/2024 4:16 AM CDT 05/23/2024 4:58 AM CDT us Renée Kirby MD LAB BLOOD ORDERABLES Fi nal Result Performing Organization Address City/[facility]/ZIP Co de Phone Number [facility] ([place]) 1 [facility] [employer] [place] [address] * (ABNORMAL) Comprehensive metabolic panel (05/23/2024 4:16 AM CDT) Sodium 141 135 - 145 mmol/L Potassium, pl 3.3 3.3 - 4.9 mmol/L [facility] ([place]) Chloride 105 97 - 110 mmol/L [facility] ([place]) CO2 25 22 - 32 mmol/L [facility] ([place]) Anion gap 12 2 - 15 mmol/L [facility] ([place]) BUN 18 6 - 25 mg/dL [facility] ([place]) Creatinine 1.27(H) 0.60 - 1.10 mg/dL [facility] ([place]) Glucose 94 70 - 199 mg/dL [facility] ([place]) [...] interpretive data was last revised 2022. Calcium 8.5 8.5 - 10.3 mg/dL [facility] ([place]) Bilirubin, total 0.2 0.1 - 1.2 mg/dL [facility] ([place]) Protein, pl 5.3(L) 6.5 - 8.5 g/dL [facility] ([place]) Albumin 3.5 3.5 - 5.0 g/dL [facility] ([place]) Alk phos 62 40 - 130 Units/L [facility] ([place]) ALT 25 7 - 45 Units/L [facility] ([place]) AST 27 10 - 45 Units/L [facility] ([place]) Blood 05/23/2024 4:16 AM CDT 05/23/2024 4:58 AM CDT Renée Kirby MD LAB BLOOD ORDERABLES Fi nal Result [facility] ([place]) 1 [facility] Department [place] [address] * Respiratory pathogen panel Nasopharyngeal (05/22/2024 9:21 AM CDT) Influenza A RNA Not Detected Not Detected Comment:Testing performed by : [address] [address] Influenza B RNA Not Detected Not Detected [facility] ([place]) Comment:Testing performed by : [address] [address] RSV RNA Not Detected Not Detected [facility] ([place]) Comment:Testing performed by : [address] [address] COVID-19 RNA Not Detected Not Detected [facility] ([place]) Comment:Testing performed by : [address] [address] Coronavirus 229E RNA Not Detected Not Detected [facility] ([place]) Comment:Testing performed by : [address] [address] Coronavirus HKU1 RNA Not Detected Not Detected [facility] ([place]) Comment:Testing performed by : [address] [address] Coronavirus NL63 RNA Not Detected Not Detected [facility] ([place]) Comment:Testing performed by : [facility], [address] [place] [address]., [address] Coronavirus OC43 RNA Not Detected Not Detected [facility] ([place]) Comment:Testing performed by : [facility], [address] [place] [address]., [address] Adenovirus DNA Not Detected Not Detected [facility] ([place]) Comment:Testing performed by : [facility], [address] [place] [address], [address] Metapneumovirus RNA Not Detected Not Detected [facility] ([place]) Comment:Testing performed by : [facility], [address] [place] [address]., [address] Rhinovirus/Enterov irus RNA Not Detected Not Detected [facility] ([place]) Comment:Testing performed by : [facility], [address] [place] [address]., [address] Parainfluenza 1 RNA Not Detected Not Detected [facility] ([place]) Comment:Testing performed by : [facility], [address] [place] [address], [address] Parainfluenza 2 RNA Not Detected Not Detected [facility] ([place]) Comment:Testing performed by : [facility], [address] [place] [address]., [address] Parainfluenza 3 RNA Not Detected Not Detected [facility] ([place]) Comment:Testing performed by : [facility], [address] [place] [address], [address] Parainfluenza 4 RNA Not Detected Not Detected [facility] ([place]) Comment:Testing performed by : [facility], [address] [place] [address], [address] B. pertussis DNA Not Detected Not Detected [facility] ([place]) Comment:Testing performed by : [facility], [address] [place] [address], [address] B. parapertussis DNA Not Detected Not Detected [facility] ([place]) Comment:Testing performed by : [facility], [address] [place] [address], [address] C. pneumoniae DNA Not Detected Not Detected [facility] ([place]) Comment:Testing performed by : [facility], [address] [place] [address], [address] M. pneumoniae DNA Not Detected Not Detected [facility] ([place]) Comment: Interpretive Data The [employer] FilmArray Respiratory Panel (RP2.1) assay is a multiplexed real-time PCR based nucleic acid test capable of simultaneous qualitative detection and identification of multiple respiratory viral and bacterial nucleic acids, including SARS Coronavirus 2 (the causative agent of COVID-19). The following bacteria, viruses and virus subtypes can be identified using the FilmArray RP2.1 assay: Bordetella pertussis, Bordetella parapertussis, Chlamydia pneumoniae, Mycoplasma pneumoniae, Adenovirus, SARS Coronavirus 2, seasonal coronaviruses (Coronavirus HKU1, Coronavirus NL63, Coronavirus 229E, and Coronavirus OC43), Influenza A, Influenza A subtype H1, Influenza A subtype H3, Influenza A subtype 2009 H1, Influenza B, Metapneumovirus, Parainfluenza 1, Parainfluenza 2, Parainfluenza 3, Parainfluenza 4, RSV, Rhinovirus/Enterovirus. Due to the genetic similarity between human Rhinovirus and Enterovirus, the FilmArray RP2.1 assay cannot reliably differentiate them. Coronavirus OC43 may cross-react with some isolates of Coronavirus HKU1. ??A dual positive result may be due to cross-reactivity or may indicate a co-infection. The detection and identification of specific viral and bacterial nucleic acids from individuals exhibiting signs and symptoms of a respiratory infection aids in the diagnosis of respiratory infection if used in conjunction with other clinical and epidemiological information. ??The results of this test should not be used as the sole basis for diagnosis, treatment, or other management decisions. ??Negative results in the setting of a respiratory illness may be due to infection with pathogens that are not detected by this test. ??Positive results do not rule out infection/co-infection with other organisms. ??The agent(s) detected by the FilmArray RP2.1 may not be the definite cause of disease. ??Additional testing (lab, imaging, etc.) may be necessary when evaluating a patient with possible respiratory tract infection. The FilmArray RP2.1 assay has FDA clearance for testing of ACQUISITIONS ASSISTANT swabs. ??The performance characteristics of this assay have been determined by [facility]. Current interpretive data was last revised on 2021. Testing performed by: [facility], [address] [place] [address], [place]., [address] Nasopharyngeal 05/22/2024 9: 21 AM CDT 05/23/2024 4:12 AM CDT Narrative [facility] ([place]) - 05/23/2024 5:28 AM CDT Is the Patient experiencing symptoms consistent with COVID?->Yes Surveillance testing for transplant patient?->No us Ger Montemayor MD LAB MICROBIOLOGY - GEN ERAL ORDERABLES Final Result [facility] ([place]) [address] [place] [address] Department [place] [address] [place] * TRANSTHORACIC ECHO (TTE) COMPLETE W DOPPLER/CF WO CONTRAST (05/22/2024 8:10 AM CDT) Anatomical Region Laterality Modality Ultrasound 05/22/2024 7:47 AM CDT Narrative 05/22/2024 9:46 AM CDT [address] [address] Echocardiogram Report Patient Name: MOSHE HARTLEY H : 1965 Study Date: 05/22/2024 7:47:04 AM Gender: F Tech: Location: [id number] [facility] Provider: RENÉE KIRBY ?Height(Cm): BSA: ??Weight(Kg): Quality: Adequate Order Provider: RENÉE KIRBY PROCEDURES: Echocardiographic Report: Transthoracic echocardiogram with complete 2D, M-Mode, and color Doppler examination. INDICATIONS: assess for CHF - Measurements: 2D/M Mode ?Doppler Measurement ?Value ?Normal Range ? Measurement ? Value ?Normal Range EF Teich MM ?73.1 ? [ 54.0 - 74.0 ] percent ?BASHIR Vmax ?2.81 ? cm2 LVIDd MM ? 4.31 ? [ 3.80 - 5.20 ] cm ? AV Mean PG ?3 ?mmHg LVIDs MM ? 2.51 ? [ 2.20 - 3.50 ] cm ? AV Peak Juan Antonio ? 1.26 ? [ 1.00 - 1.70 ] m/s LVPWd MM ? 1.38 ? [ 0.60 - 0.90 ] cm ? AV VTI ?29.44 ?cm IVSd MM ?1.08 ? [ 0.60 - 0.90 ] cm ? LVOT Diam ? 2.04 ? cm LA Dimension MM ?3.33 ? [ 2.70 - 3.80 ] cm ? LVOT Peak Juan Antonio ? 1.09 ? [ 0.70 - 1.10 ] m/s AoR Diam MM ?2.41 ? [ 2.70 - 3.70 ] cm ? LVOT VTI ?22.94 ?cm ACS MM ? 1.73 ? cm ? MV E Peak Juan Antonio ? 0.63 ? [ 0.60 - 1.30 ] m/s MV A Peak Juan Antonio ?0.85 ? [ 1.00 - 1.20 ] m/s MV Mean PG ? 1 ?mmHg MV PHT ? 61 ? [ 20 - 100 ] msec MVA ?3.60 MV Decel Time ?211 ?[ 104 - 258 ] msec PV Peak Juan Antonio ?1.10 ? [ 0.40 - 0.80 ] m/s TR Peak Juan Antonio ?2.73 ? [ 1.00 - 2.80 ] m/s TR Peak PG ? 30 ? mmHg RVSP ? 38.00 ?[ 10.00 - 36.00 ] mmHg E` ? 0.07 ? m/s E/E` ? 9.24 ? [ <= 10.00 ] PA Pressure ?38.00 ?[ 10.00 - 36.00 ] mmHg Measurement ?Value ?Normal Range ? Measurement ? Value ?Normal Range 2D/M Mode ?Doppler - FINDINGS: Atrial Septum: Normal atrial septum. Left Ventricle: Normal left ventricular systolic function with no focal wall motion abnormalities. Normal left ventricular size. Mild concentric left ventricular hypertrophy. Normal left ventricular diastolic function. Ejection fraction is measured at 59 %. Left Atrium: The left atrium is normal in size. Right Ventricle: Normal right ventricular size. Normal right ventricular systolic function. Right Atrium: The right atrium is normal in size. Aortic Valve: Normal structure of the aortic valve. Mitral Valve: Normal structure of the mitral valve. Pulmonic Valve: Normal structure of the pulmonic valve. Tricuspid Valve: Mild pulmonary hypertension based on right ventricular systolic pressure. Estimated peak RVSP is 40 mmHg. Mild tricuspid regurgitation. Pericardium: There is an anterior echo free space consistent with epicardial fat pad. Aorta: Normal aortic root. Sinus of Valsalva is normal. Aortic arch is normal. Descending aorta is normal. IVC: Normal size and normal respiratory collapse consistent with normal right atrial pressure (<5 mmHg). Pulmonary Artery: Normal pulmonary artery size. CONCLUSIONS: Normal left ventricular systolic function with no focal wall motion abnormalities. Normal left ventricular size. Mild concentric left ventricular hypertrophy. Normal left ventricular diastolic function. Ejection fraction is measured at 59 %. Mild pulmonary hypertension based on right ventricular systolic pressure. Estimated peak RVSP is 40 mmHg. Mild tricuspid regurgitation. There is an anterior echo free space consistent with epicardial fat pad. Electronically Signed By: Phoenix Loredo MD 2024-05-22 09:45:49 CDT Procedure Note Phoenix Loredo MD - 05/22/[address] [place] [address] Echocardiogram Report Patient Name: MOSHE HARTLEY H : 1965 Study Date: 05/22/2024 7:47:04 AM Gender: F Tech: SOLOMON Location: [id number] Ref Provider: RENÉE KIRBY Height(Cm): BSA: Weight(Kg): Quality: Adequate Order Provider: RENÉE KIRBY PROCEDURES: Echocardiographic Report: Transthoracic echocardiogram with complete 2D, M-Mode, and color Dopplerexamination. INDICATIONS: assess for CHF - Measurements: 2D/M ModeDoppler Measurement Value Normal Range MeasurementValue Normal Range EF Teich MM 73.1 [ 54.0 - 74.0 ] percent BASHIR Vmax2.81 cm2 LVIDd MM 4.31 [ 3.80 - 5.20 ] cm AV Mean PG3 mmHg LVIDs MM 2.51 [ 2.20 - 3.50 ] cm AV Peak Vel1.26 [ 1.00 - 1.70 ] m/s LVPWd MM 1.38 [ 0.60 - 0.90 ] cm AV VTI29.44 cm IVSd MM 1.08 [ 0.60 - 0.90 ] cm LVOT Diam2.04 cm LA Dimension MM 3.33 [ 2.70 - 3.80 ] cm LVOT PeakVel 1.09 [ 0.70 - 1.10 ] m/s AoR Diam MM 2.41 [ 2.70 - 3.70 ] cm LVOT VTI22.94 cm ACS MM 1.73 cm MV E PeakVel 0.63 [ 0.60 - 1.30 ] m/s MV A Peak Juan Antonio 0.85 [ 1.00 - 1.20 ] m/s MV Mean PG 1 mmHg MV PHT 61 [ 20 - 100 ] msec MVA 3.60 MV Decel Time 211 [ 104 - 258 ] msec PV Peak Juan Antonio 1.10 [ 0.40 - 0.80 ] m/s TR Peak Juan Antonio 2.73 [ 1.00 - 2.80 ] m/s TR Peak PG 30 mmHg RVSP 38.00 [ 10.00 - 36.00 ] mmHg E` 0.07 m/s E/E` 9.24 [ <= 10.00 ] PA Pressure 38.00 [ 10.00 - 36.00 ] mmHg Measurement Value Normal Range MeasurementValue Normal Range 2D/M ModeDoppler - FINDINGS: Atrial Septum: Normal atrial septum. Left Ventricle: Normal left ventricular systolic function with no focal wall motionabnormalities. Normal left ventricular size. Mild concentric left ventricular hypertrophy.Normal left ventricular diastolic function. Ejection fraction is measured at 59 %. Left Atrium: The left atrium is normal in size. Right Ventricle: Normal right ventricular size. Normal right ventricular systolicfunction. Right Atrium: The right atrium is normal in size. Aortic Valve: Normal structure of the aortic valve. Mitral Valve: Normal structure of the mitral valve. Pulmonic Valve: Normal structure of the pulmonic valve. Tricuspid Valve: Mild pulmonary hypertension based on right ventricular systolic pressure.Estimated peak RVSP is 40 mmHg. Mild tricuspid regurgitation. Pericardium: There is an anterior echo free space consistent with epicardial fat pad. Aorta: Normal aortic root. Sinus of Valsalva is normal. Aortic arch is normal.Descending aorta is normal. IVC: Normal size and normal respiratory collapse consistent with normal rightatrial pressure (<5 mmHg). Pulmonary Artery: Normal pulmonary artery size. CONCLUSIONS: Normal left ventricular systolic function with no focal wall motionabnormalities. Normal left ventricular size. Mild concentric left ventricular hypertrophy.Normal left ventricular diastolic function. Ejection fraction is measured at 59 %. Mild pulmonary hypertension based on right ventricular systolic pressure.Estimated peak RVSP is 40 mmHg. Mild tricuspid regurgitation. There is an anterior echo free space consistent with epicardial fat pad. Electronically Signed By: Phoenix Loredo MD 2024-05-22 09:45:49 CDT Renée Kirby MD CV ECHO PROCEDURES Ivette l Result * eGFR (05/22/2024 3:56 AM CDT) eGFR 64 >=60 mL/min/1. 73 m2 Comment: Interpretive Data [...] interpretive data was last reviewed 2021. Blood 05/22/2024 3:56 AM CDT 05/22/2024 4:45 AM CDT us Renée Kirby MD LAB BLOOD ORDERABLES Fi nal Result JAY IZQUIERDO ([place]) 1 [facility] Department [place] [address] * (ABNORMAL) Differential, auto (05/22/2024 3:56 AM CDT) Neutrophil abs 4.8 1.5 - 6.5 K/cumm Imm gran abs 0.1 0.0 - 0.1 K/cumm [facility] ([place]) Lymphocyte abs 0.5(L) 0.8 - 3.3 K/cumm [facility] ([place]) Monocyte abs 0.1(L) 0.2 - 0.8 K/cumm [facility] ([place]) Eosinophil abs 0.0 0.0 - 0.5 K/cumm [facility] ([place]) Basophil abs 0.0 0.0 - 0.1 K/cumm [facility] ([place]) Neutrophil pct 88.3 % [facility] ([place]) Comment: Interpretive Data Percent cell count reference ranges are not reported, since discordance with absolute values may lead to misinterpretation of CBC data. Current Interpretive Data was last revised on 2018. Imm gran pct 1.1 % [facility] ([place]) Comment: Interpretive Data Percent cell count reference ranges are not reported, since discordance with absolute values may lead to misinterpretation of CBC data. Current Interpretive Data was last revised on 2018. Lymphocyte pct 8.8 % [facility] ([place]) Comment: Interpretive Data Percent cell count reference ranges are not reported, since discordance with absolute values may lead to misinterpretation of CBC data. Current Interpretive Data was last revised on 2018. Monocyte pct 1.6 % [facility] ([place]) Comment: Interpretive Data Percent cell count reference ranges are not reported, since discordance with absolute values may lead to misinterpretation of CBC data. Current Interpretive Data was last revised on 2018. Eosinophil pct 0.0 % [facility] ([place]) Comment: Interpretive Data Percent cell count reference ranges are not reported, since discordance with absolute values may lead to misinterpretation of CBC data. Current Interpretive Data was last revised on 2018. Basophil pct 0.2 % [facility] ([place]) Comment: Interpretive Data Percent cell count reference ranges are not reported, since discordance with absolute values may lead to misinterpretation of CBC data. Current Interpretive Data was last revised on 2018. Blood 05/22/2024 3:56 AM CDT 05/22/2024 4:43 AM CDT us Renée Kirby MD LAB BLOOD ORDERABLES Fi nal Result [facility] ([place]) 1 [facility] [employer] [place] [address] * CBC with auto differential (05/22/2024 3:56 AM CDT) WBC 5.5 3.8 - 9.9 K/cumm Hgb 12.7 11.9 - 15.5 g/dL [facility] ([place]) Hct 37.2 35.6 - 45.5 % [facility] ([place]) Plt 207 150 - 400 K/cumm [facility] ([place]) MPV 10.3 9.1 - 12.3 fL [facility] ([place]) RBC 4.14 3.90 - 5.20 M/cumm [facility] ([place]) MCV 89.9 81.3 - 96.4 fL [facility] ([place]) MCH 30.7 27.1 - 33.3 pg [facility] ([place]) MCHC 34.1 32.3 - 35.7 g/dL [facility] ([place]) RDW CV 12.8 11.1 - 14.9 % [facility] ([place]) RDW SD 42.5 35.7 - 48.1 fL [facility] ([place]) NRBC abs 0.00 0.00 - 0.01 K/cumm [facility] ([place]) Blood 05/22/2024 3:56 AM CDT 05/22/2024 4:43 AM CDT us Renée Kirby MD LAB BLOOD ORDERABLES Fi nal Result JAY IZQUIERDO ([place]) 1 [facility] [employer] [address] * Magnesium (05/22/2024 3:56 AM CDT) Magnesium 2.0 1.4 - 2.5 mg/dL Blood 05/22/2024 3:56 AM CDT 05/22/2024 4:45 AM CDT us Renée Kirby MD LAB BLOOD ORDERABLES nal Result [facility] ([place]) 1 [facility] Department [place] [address] * (ABNORMAL) Comprehensive metabolic panel (05/22/2024 3:56 AM CDT) Sodium 137 135 - 145 mmol/L Potassium, pl 3.9 3.3 - 4.9 mmol/L [facility] ([place]) Chloride 101 97 - 110 mmol/L [facility] ([place]) CO2 18(L) 22 - 32 mmol/L [facility] ([place]) Anion gap 18(H) 2 - 15 mmol/L [facility] ([place]) BUN 18 6 - 25 mg/dL [facility] ([place]) Creatinine 1.00 0.60 - 1.10 mg/dL [facility] ([place]) Glucose 151 70 - 199 mg/dL [facility] ([place]) [...] interpretive data was last revised 2022. Calcium 8.6 8.5 - 10.3 mg/dL [facility] ([place]) Bilirubin, total 0.2 0.1 - 1.2 mg/dL [facility] ([place]) Protein, pl 5.7(L) 6.5 - 8.5 g/dL [facility] ([place]) Albumin 3.4(L) 3.5 - 5.0 g/dL [facility] ([place]) Alk phos 76 40 - 130 Units/L [facility] ([place]) ALT 17 7 - 45 Units/L [facility] ([place]) AST 19 10 - 45 Units/L TOSHABAILEY IZQUIERDO ([place]) Blood 05/22/2024 3:56 AM CDT 05/22/2024 4:45 AM CDT Renée Kirby MD LAB BLOOD ORDERABLES Fi nal Result Performing Organization Address City/[facility] Co de Phone Number JAY MckeonS[place]) [address] [place] [address] * Strep pneumoniae antigen, urine Urine (05/21/2024 11:52 PM CDT) S. pneumoniae Ag Negative Negative Comment: Interpretive Data A positive result is indicative of pneumococcal pneumonia in patients with severe CAP. ??Cross-reactivity with closely related Streptococcus bacteria may occur. A negative result suggests no current or recent pneumococcal infection but cannot rule out infection with S. pneumoniae. The results of this testing should be used in conjunction with clinical findings and other diagnostic testing, including microbiologic culture. Current Interpretive Data was last revised on 2022 Testing performed by: [address] [address] Urine 05/21/2024 11:5 2 PM CDT 05/22/2024 8:58 AM CDT Renée Kirby MD LAB MICROBIOLOGY - GENE RAL ORDERABLES Final Result Performing Organization Address [facility] Co de Phone Number JAY IZQUIERDO ([place]) [address] [place] [address] * Legionella antigen Urine (05/21/2024 11:52 PM CDT) Legionella Ag Negative Negative Comment: Interpretive Data This test detects only Legionella pneumophila serogroup 1 antigen. ?? Current interpretive data was last revised on 2019. Testing performed by: [address] [address] Urine 05/21/2024 11:5 2 PM CDT 05/22/2024 8:58 AM CDT us Renée Kirby MD LAB MICROBIOLOGY - GENE RAL ORDERABLES Final Result JAY IZQUIERDO ([place]) 1 [facility] Department [place] [address] * CT Chest PE (CTA) W Contrast (05/21/2024 9:36 PM CDT) Anatomical Region Laterality Modality Body N/A Computed Tomogra phy 05/21/2024 10:1 6 PM CDT Narrative 05/21/2024 10:29 PM CDT EXAM DESCRIPTION: ?? CT CHEST PE (CTA) W CONTRAST REASON FOR STUDY: ?? Chest pain, PE suspected, low/intermediate prob, positive D-dimer ?? Pt to ED with complaints of SOB. 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 ??Patient was discharged from the hospital yesterday after she had her surgery. ??She reports ?? having shortness of breath as well as cough productive of sputum. ??She reports exposure to family member that has COVID. ?? She denies any chest pain, fevers, chills, abdominal pain, nausea, vomiting, diarrhea. ?Current smoker, pt stated she quit last Monday ??Hx of COPD, asthma, HTN, and PVD ??Hx of double mastectomy due to hx of breast cancer ?? TECHNIQUE: CT angiogram of the chest performed with intravenous contrast using helical scanning technique with dynamic intravenous contrast injection. Reconstructed coronal and sagittal MPR images reviewed. All images stored on PACS. ?? 3D MIP images rendered on scanning unit and reviewed at time of interpretation. ??Automated exposure control was used as a dose optimization technique for this examination. CONTRAST TYPE/DOSE: ?? 75mL of IOVERSOL 350 MG IODINE/ML INTRAVENOUS SYRINGE ?? injected via ?? intravenous COMPARISON: ?? 04/08/2024 REFERENCE: Per ACR white paper recommendations, unless otherwise specified no follow-up imaging is recommended for incidental renal and adrenal lesions per consensus recommendations based on imaging criteria. Further lab evaluation could be pursued based on clinical findings. FINDINGS: VASCULATURE: ??Bolus timing is adequate and no filling defect is seen in the pulmonary arterial tree. ?Systemic arterial structures are partially opacified and reveal no acute abnormality. ? MEDIASTINUM/DESMOND: ??Mild cardiomegaly. ??Minimal coronary artery calcification. ?? No enlarged lymph node. ??Thoracic inlet unremarkable. LUNGS: ??Trace pleural effusions with passive atelectasis in the costophrenic sulci. ??Mild emphysema. ??Trachea and major airways patent. UPPER ABDOMEN: ??Scattered free air in the upper abdomen as well as in the body wall. ??Pancreatic tail appears edematous or distended. MUSCULOSKELETAL: ??Mild disc disease. ?? CHEST WALL: ??Unremarkable. ?? IMPRESSION: 1. ?? No PE or other acute abnormality identified in the chest. ??Trace pleural effusions and mild bibasilar atelectasis. 2. ?? Scattered free air in the upper abdomen, somewhat obscured by motion artifact. ?? THIS IS AN ELECTRONICALLY VERIFIED FINAL REPORT 05/21/2024 10:29 PM - Electronically signed by ??Conrad Grewal M.D. AR: AR D: ??05/21/2024 10:29 PM T: ??05/21/2024 10:29 PM Report ID: [id number] Reading Location: ??[id number] Procedure Note Conrad Grewal MD - 05/21/2024 EXAM DESCRIPTION: CT CHEST PE (CTA) W CONTRAST REASON FOR STUDY: Chest pain, PE suspected, low/intermediate prob,positive D-dimer Pt to ED with complaints of SOB. 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 Patient was discharged from the hospital yesterday after shehad her surgery. She reports having shortness of breath as well as cough productive of sputum. She reports exposure to family member that hasCOVID. She denies any chest pain, fevers, chills, abdominal pain, nausea,vomiting, diarrhea. Current smoker, pt stated she quit last Monday Hx of COPD, asthma, HTN, and PVD Hx of double mastectomy due to hx of breast cancer TECHNIQUE: CT angiogram of the chest performed with intravenous contrastusing helical scanning technique with dynamic intravenous contrast injection. Reconstructed coronal and sagittal MPR images reviewed. All images storedon PACS. 3D MIP images rendered on scanning unit and reviewed at time of interpretation. Automated exposure control was used as a doseoptimization technique for this examination. CONTRAST TYPE/DOSE: 75mL of IOVERSOL 350 MG IODINE/ML INTRAVENOUSSYRINGE injected via intravenous COMPARISON: 04/08/2024 REFERENCE: Per ACR white paper recommendations, unless otherwise specifiedno follow-up imaging is recommended for incidental renal and adrenal lesionsper consensus recommendations based on imaging criteria. Further labevaluation could be pursued based on clinical findings. FINDINGS: VASCULATURE: Bolus timing is adequate and no filling defect is seen inthe pulmonary arterial tree. Systemic arterial structures are partially opacified and reveal no acute abnormality. MEDIASTINUM/DESMOND: Mild cardiomegaly. Minimal coronary arterycalcification. No enlarged lymph node. Thoracic inlet unremarkable. LUNGS: Trace pleural effusions with passive atelectasis in thecostophrenic sulci. Mild emphysema. Trachea and major airways patent. UPPER ABDOMEN: Scattered free air in the upper abdomen as well as in thebody wall. Pancreatic tail appears edematous or distended. MUSCULOSKELETAL: Mild disc disease. CHEST WALL: Unremarkable. IMPRESSION: 1. No PE or other acute abnormality identified in the chest. Tracepleural effusions and mild bibasilar atelectasis. 2. Scattered free air in the upper abdomen, somewhat obscured by motion artifact. THIS IS AN ELECTRONICALLY VERIFIED FINAL REPORT 05/21/2024 10:29 PM - Electronically signed by Conrad Grewal M.D. AR: KEI Report ID: [id number] Reading Location: [place] [address] us Renée Kirby MD IM CT PROCEDURES Final Result * Troponin T high-sensitivity 6-hour (05/21/2024 6:04 PM CDT) Trop T hs 11 <=14 ng/L Comment: Interpretive Data For further hscTnT resources including the diagnostic algorithm and an aid in interpretation, copy and paste this link: https://nrl.testcatalog.org/show/hsTrop Current Interpretive Data last revised 2020. Trop T hs delta See Comment ng/L CE KAI IZQUIERDO ([place]) Comment:Inappropriate collec tion time to report a delta. Trop T hs pct delta See Comment % JAY IZQUIERDO ([place]) Comment:Inappropriate collec tion time to report a delta. Trop T hs interp See Comment C DENNYS IZQUIERDO ([place]) Comment:Inappropriate collec tion time to report a delta. Blood 05/21/2024 6:04 PM CDT 05/21/2024 6:08 PM CDT us Abhinav Lorenz MD LAB BLOOD ORDERABLES Final R esult JAY IZQUIERDO ([place]) 1 [facility] Department [place] [address] * Blood culture Blood (05/21/2024 4:17 PM CDT) Report Final Report: No growth Comment:Testing performed by : [facility], [address] [facility], [place]., [address] Blood 05/21/2024 4:17 PM CDT 05/21/2024 7:11 PM CDT Narrative JAY IZQUIERDO ([place]) - 05/26/2024 7:00 AM CDT 1. ?Blood cultures are incubated for 4 days on a continuously monitored blood culture system. The first report of a negative culture is issued within 24 hours of receipt of the specimen in the laboratory. 2. ?Positive culture results are reported as soon as they are detected. 3. ?The most important factor for detection of microbes in the setting of bloodstream infection is the volume of blood submitted for culture. Failure to collect an optimal blood volume can result in false negative blood cultures. For pediatric patients, the recommended blood volume to collect is 1 mL of blood per year of patient age (up to 20 mL) per blood culture set. For adult patients, 20 mL of blood, divided equally between aerobic and anaerobic blood culture bottles, is recommended for each blood culture set. 4. ?For blood cultures with Gram-positive cocci, a rapid molecular test for organism identification may be performed using the Verigene Gram-Positive Blood Culture Assay. This assay detects microbial DNA in positive blood culture broth via hybridization of target DNA to capture oligonucleotides on a microarray. This assay has been cleared by the [place] Food and Drug Administration and its performance characteristics have been verified by the [facility] Microbiology Laboratory. 5. ?For questions about this culture, contact the Microbiology Laboratory at [phone]. Interpretive data was last revised on 2020. us Abhinav Lorenz MD LAB MICROBIOLOGY - GENERAL O RDERABLES Final Result JAY IZQUIERDO ([place]) 1 [facility] Department [place] [address] * Blood culture Blood (05/21/2024 4:17 PM CDT) Report Final Report: No growth Comment:Testing performed by : [facility], 1 [facility] [place]., [address] Blood 05/21/2024 4:17 PM CDT 05/21/2024 7:11 PM CDT Narrative JAY IZQUIERDO ([place]) - 05/26/2024 7:00 AM CDT 1. ?Blood cultures are incubated for 4 days on a continuously monitored blood culture system. The first report of a negative culture is issued within 24 hours of receipt of the specimen in the laboratory. 2. ?Positive culture results are reported as soon as they are detected. 3. ?The most important factor for detection of microbes in the setting of bloodstream infection is the volume of blood submitted for culture. Failure to collect an optimal blood volume can result in false negative blood cultures. For pediatric patients, the recommended blood volume to collect is 1 mL of blood per year of patient age (up to 20 mL) per blood culture set. For adult patients, 20 mL of blood, divided equally between aerobic and anaerobic blood culture bottles, is recommended for each blood culture set. 4. ?For blood cultures with Gram-positive cocci, a rapid molecular test for organism identification may be performed using the Verigene Gram-Positive Blood Culture Assay. This assay detects microbial DNA in positive blood culture broth via hybridization of target DNA to capture oligonucleotides on a microarray. This assay has been cleared by the [place] Food and Drug Administration and its performance characteristics have been verified by the [facility] Microbiology Laboratory. 5. ?For questions about this culture, contact the Microbiology Laboratory at [phone]. Interpretive data was last revised on 2020. Abhinav Lorenz MD LAB MICROBIOLOGY - GENERAL O RDERABLES Final Result Performing Organization Address City/[facility]/ZIP Co de Phone Number JAY IZQUIERDO ([place]) 1 [facility] [employer] [place] [address] * Troponin T high-sensitivity 4-hour (05/21/2024 4:17 PM CDT) Trop T hs 11 <=14 ng/L Comment: Interpretive Data For further hscTnT resources including the diagnostic algorithm and an aid in interpretation, copy and paste this link: https://nrl.testcatalog.org/show/hsTrop Current Interpretive Data last revised 2020. Trop T hs delta See Comment ng/L CE RNMILO IZQUIERDO ([place]) Comment:Inappropriate collec tion time to report a delta. Trop T hs pct delta See Comment % JAY IZQUIERDO ([place]) Comment:Inappropriate collec tion time to report a delta. Trop T hs interp See Comment C DENNYS IZQUIERDO ([place]) Comment:Inappropriate collec tion time to report a delta. Blood 05/21/2024 4:17 PM CDT 05/21/2024 4:21 PM CDT Abhinav Lorenz MD LAB BLOOD ORDERABLES Final R esult Performing Organization Address City/[facility]/ZIP Co de Phone Number JAY IZQUIERDO ([place]) 1 [facility] Department [place] [address] * XR CHEST 1 VIEW PORTABLE (05/21/2024 3:25 PM CDT) Anatomical Region Laterality Modality Body, Chest N/A Computed Radiogr aphy 05/21/2024 3:42 PM CDT Narrative 05/21/2024 3:44 PM CDT EXAM DESCRIPTION: ?? XR CHEST 1 VIEW REASON FOR STUDY: ?? Shortness of breath ?? c/o SOB x a few days. Pt reports she had her kidney removed on Monday and was discharged yesterday. Pt reports she was exposed to Covid on Monday. ? TECHNIQUE: ??Single-view COMPARISON: ??02/19/2023 FINDINGS: Central vascularity have normal caliber. ??Aortic arch well-defined on the left. Hazy opacities both bases are new from previous suggesting small to moderate effusions adjacent atelectasis and or infiltrate. Bony hypertrophic changes obscures apices. IMPRESSION: Small to moderate bilateral effusions with adjacent atelectasis and/or infiltrate. THIS IS AN ELECTRONICALLY VERIFIED FINAL REPORT 05/21/2024 3:44 PM - Electronically signed by ??Albert Barbosa M.D. RB: RB D: ??05/21/2024 3:44 PM T: ??05/21/2024 3:44 PM Report ID: [id number] Reading Location: ??[id number] Procedure Note Albert Barbosa MD - 05/21/2024 EXAM DESCRIPTION: XR CHEST 1 VIEW REASON FOR STUDY: Shortness of breath c/o SOB x a few days. Pt reports she had her kidney removed on Monday andwas discharged yesterday. Pt reports she was exposed to Covid on Monday. TECHNIQUE: Single-view COMPARISON: 02/19/2023 FINDINGS: Central vascularity have normal caliber. Aortic arch well-defined on the left. Hazy opacities both bases are new from previous suggesting small tomoderate effusions adjacent atelectasis and or infiltrate. Bony hypertrophic changes obscures apices. IMPRESSION: Small to moderate bilateral effusions with adjacent atelectasis and/or infiltrate. THIS IS AN ELECTRONICALLY VERIFIED FINAL REPORT 05/21/2024 3:44 PM - Electronically signed by Albert Barbosa M.D. RB: RB Report ID: [id number] Reading Location: [place] [address] Abhinav Lorenz MD IMG XR PROCEDURES Final Resu lt * ECG 12 lead (05/21/2024 2:32 PM CDT) 05/21/2024 2:32 PM CDT Narrative [facility] - 05/22/2024 1:23 AM CDT Vent Rate: 85 bpm RR Interval: 700 msec FL Interval: 143 msec QRS Duration: 74 msec QT Interval: 384 msec QTC Interval: 426 msec P-R-T [place]: 76 - 18 - 63 degrees IMPRESSION: SINUS RHYTHM WITH OCCASIONAL VENTRICULAR PREMATURE COMPLEXES POSSIBLE LEFT ATRIAL ENLARGEMENT ??[-0.1mV P-WAVE IN V1/V2] BORDERLINE ECG Compared to prior EKG, PVCs are new Electronically Signed By: Phoenix Loredo MD Abhinav Lorenz MD ECG ORDERABLES Final Result [facility] * eGFR (05/21/2024 2:29 PM CDT) eGFR 61 >=60 mL/min/1. 73 m2 Comment: Interpretive Data [...] interpretive data was last reviewed 2021. Blood 05/21/2024 2:29 PM CDT 05/21/2024 2:35 PM CDT us Abhinav Lorenz MD LAB BLOOD ORDERABLES Final R esult [facility] ([place] 1 [facility] Department [place] [address] * (ABNORMAL) Differential, auto (05/21/2024 2:29 PM CDT) Neutrophil abs 8.5(H) 1.5 - 6.5 K/cumm Imm gran abs 0.0 0.0 - 0.1 K/cumm [facility] ([place]) Lymphocyte abs 1.1 0.8 - 3.3 K/cumm [facility] ([place]) Monocyte abs 0.6 0.2 - 0.8 K/cumm [facility] ([place]) Eosinophil abs 0.1 0.0 - 0.5 K/cumm [facility] ([place]) Basophil abs 0.0 0.0 - 0.1 K/cumm [facility] ([place]) Neutrophil pct 82.1 % [facility] ([place]) Comment: Interpretive Data Percent cell count reference ranges are not reported, since discordance with absolute values may lead to misinterpretation of CBC data. Current Interpretive Data was last revised on 2018. Imm gran pct 0.2 % [facility] ([place]) Comment: Interpretive Data Percent cell count reference ranges are not reported, since discordance with absolute values may lead to misinterpretation of CBC data. Current Interpretive Data was last revised on 2018. Lymphocyte pct 10.8 % [facility] ([place]) Comment: Interpretive Data Percent cell count reference ranges are not reported, since discordance with absolute values may lead to misinterpretation of CBC data. Current Interpretive Data was last revised on 2018. Monocyte pct 5.3 % [facility] ([place]) Comment: Interpretive Data Percent cell count reference ranges are not reported, since discordance with absolute values may lead to misinterpretation of CBC data. Current Interpretive Data was last revised on 2018. Eosinophil pct 1.2 % [facility] ([place]) Comment: Interpretive Data Percent cell count reference ranges are not reported, since discordance with absolute values may lead to misinterpretation of CBC data. Current Interpretive Data was last revised on 2018. Basophil pct 0.4 % [facility] ([place]) Comment: Interpretive Data Percent cell count reference ranges are not reported, since discordance with absolute values may lead to misinterpretation of CBC data. Current Interpretive Data was last revised on 2018. Blood 05/21/2024 2:29 PM CDT 05/21/2024 2:35 PM CDT Abhinav Lorenz MD LAB BLOOD ORDERABLES Final R esult [facility] ([place]) 1 [facility] Department of Laboratories [place] [id number] * (ABNORMAL) D-dimer, quantitative (05/21/2024 2:29 PM CDT) D-Dimer 2,662(H) <=499 ng/mL FEU Comment: Interpretive data FDA approved the D-dimer, [...] 68, VTE cut-off 680 ng/ml FEU. References; Qasim HT et al. Brit Med J. 2013;346:f2492. Rachel et al. Annals Int Med. 2015;163:701-11. Current interpretive data was last revised on 2019. Blood 05/21/2024 2:29 PM CDT 05/21/2024 3:00 PM CDT Abhinav Lorenz MD LAB BLOOD ORDERABLES [facility] Performing Organization Address [facility] Co de Phone Number [facility]AY [facility] ([place]) 1 [facility] [employer] [place] [address] * Protime-INR (05/21/2024 2:29 PM CDT) PT 11.3 9.7 - 13.0 sec INR 1.05 0.90 - 1.20 [facility] ([place]) Comment: Interpretive data Oral anticoagulant therapeutic ranges: Venous thromboembolism prophylaxis or treatment: 2.0-3.0 CARDIOLOGY Standard range: 2.0-3.0 High-intensity range: 2.5-3.5 Refer to indication-specific guidelines for appropriate target ranges for prosthetic heart valve replacement. Current interpretive data was last revised on 2019. Blood 05/21/2024 2:29 PM CDT 05/21/2024 3:00 PM CDT Abhinav Lorenz MD LAB BLOOD ORDERABLES Final R esult Performing Organization Address City/[facility] Co de Phone Number [facility] ([place]) 1 [facility] [employer] [address] * (ABNORMAL) Pro B-type natriuretic peptide (05/21/2024 2:29 PM CDT) NT-proBNP 1,261(H) <=300 pg/mL Comment: Interpretive Comments: A. Dyspnea in Acute Care Setting All Ages: ?< 300 pg/ml, acute heart failure unlikely. < 50 yrs: ?300 - 450 pg/ml, further investigation warranted. ? > 450 pg/ml, acute heart failure likely. 50 - 74 yrs: ? 300 - 900 pg/ml, further investigation warranted. ? > 900 pg/ml, acute heart failure likely . > or = 75 yrs: ? 450 - 1800 pg/ml, further investigation warranted. ? > 1800 pg/ml, acute heart failure likely. B. Non-acute Setting < 75 yrs ? < 125 pg/ml, rules out heart failure. ? > or = 125 pg/ml, further investigation warranted. > or = 75 yrs ?< 450 pg/ml, rules out heart failure. ? > or = 450 pg/ml, further investigation warranted. - Knowledge of each individual patient's NT-proBNP range may be more useful than using similar cut-points for every patient. Please note that marked elevations in NT-proBNP levels may be observed in state other than Left Ventricular Congestive Failure, including: acute coronary syndromes, right heart strain/failure (including pulmonary embolism and cor pulmonale), critical illness, renal failure, as well as advanced age. - References: 1. Nate SANDY et.al. Eur Heart J. 2006:27:330-337. 2. Sepideh RW, Faisal VALDEZ. J. AM Gabo Cardiol: Cardiovasc Imag. 2009;2: 216- 225. Interpretive Data Last Revised Date: 2018. Blood 05/21/2024 2:29 PM CDT 05/21/2024 2:51 PM CDT us Abhinav Lorenz MD LAB BLOOD ORDERABLES Final R esult [facility] ([place]) 1 [facility] Department [place] [address] * aPTT (05/21/2024 2:29 PM CDT) aPTT 28 28 - 38 sec Comment: Interpretive Data Heparin therapeutic range: 66.0 - 100.0 seconds. Range based on correlation with therapeutic heparin activity range of 0.3 - 0.7 Units/mL. Current interpretive data was last revised on 2023. Blood 05/21/2024 2:29 PM CDT 05/21/2024 3:00 PM CDT Ahbinav Lorenz MD LAB BLOOD ORDERABLES Final R esult Performing Organization Address [facility] Co de Phone Number JAY [facility] ([place]) 1 [facility] [place] [address] * (ABNORMAL) Blood gas, venous (05/21/2024 2:29 PM CDT) pH, Venous 7.42 7.32 - 7.43 PCO2, Venous 36(L) 40 - 50 mmHg [facility] ([place]) PO2, Venous 35 mmHg [facility] ([place]) Comment: Interpretive Data No reference range established. Current interpretive data was last revised 2018. HCO3 Venous, Calculated 23 20 - 30 mmol/L [facility] ([place]) BE, venous -1 mmol/L [facility] ([place]) Comment: Interpretive Data No Reference Range Established Current Interpretive Data was last revised on 2018. Blood 05/21/2024 2:29 PM CDT 05/21/2024 2:35 PM CDT Abhinav Lorenz MD LAB BLOOD ORDERABLES Final R esult Performing Organization Address [facility] Co de Phone Number JAY [facility] ([place]) 1 [facility] [place] [address] * Influenza A/B, RSV, and COVID-19 PCR Nasopharyngeal (05/21/2024 2:29 PM CDT) Pathologist [facility] COVID-19 RNA Negative Negative Influenza A RNA Negative Negative [facility] ([place]) Influenza B RNA Negative Negative [facility] RSV RNA Negative Negative [facility] ([place]) Comment: Interpretive data: Testing performed by [facility]. This test is performed using the [employer] Xpert Xpress CoV-2/Flu/RSV plus assay. This is a multiplex, real- time reverse transcriptase PCR assay intended for the qualitative detection of nucleic acid from SARS-CoV-2, influenza A, influenza B, and respiratory syncytial virus. This assay has been cleared by the [place] Food and Drug administration. The performance characteristics have been verified by the [facility]. ?? Results must be considered in the clinical context, and a negative result does not rule out infection. Interpretive Data last revised 2023 Nasopharyngeal 05/21/2024 2: 29 PM CDT 05/21/2024 2:37 PM CDT Narrative [facility] ([place]) - 05/21/2024 3:27 PM CDT Is the Patient experiencing symptoms consistent with COVID?->Yes Abhinav Lorenz MD LAB MICROBIOLOGY - GENERAL O RDERABLES Final Result [facility] ([place]) 1 [facility] Department [place] [address] * (ABNORMAL) CBC with auto differential (05/21/2024 2:29 PM CDT) WBC 10.4(H) 3.8 - 9.9 K/cumm Hgb 13.2 11.9 - 15.5 g/dL [facility] ([place] Hct 38.2 35.6 - 45.5 % [facility] ([place]) Plt 198 150 - 400 K/cumm [facility] ([place]) MPV 9.7 9.1 - 12.3 fL [facility] ([place]) RBC 4.27 3.90 - 5.20 M/cumm [facility] ([place]) MCV 89.5 81.3 - 96.4 fL [facility] ([place]) MCH 30.9 27.1 - 33.3 pg [facility] ([place]) MCHC 34.6 32.3 - 35.7 g/dL [facility] ([place]) RDW CV 13.0 11.1 - 14.9 % [facility] ([place]) RDW SD 42.9 35.7 - 48.1 fL [facility] ([place]) NRBC abs 0.00 0.00 - 0.01 K/cumm [facility] ([place]) Blood 05/21/2024 2:29 PM CDT 05/21/2024 2:35 PM CDT us Abhinav Lorenz MD LAB BLOOD ORDERABLES Final R esult [facility] ([place]) 1 [facility] Department [place] [address] * (ABNORMAL) Comprehensive metabolic panel (05/21/2024 2:29 PM CDT) Sodium 139 135 - 145 mmol/L Potassium, pl 4.1 3.3 - 4.9 mmol/L [facility] ([place]) Chloride 101 97 - 110 mmol/L [facility] ([place]) CO2 19(L) 22 - 32 mmol/L [facility] ([place]) Anion gap 19(H) 2 - 15 mmol/L [facility] ([place]) BUN 13 6 - 25 mg/dL [facility] ([place]) Creatinine 1.05 0.60 - 1.10 mg/dL [facility] ([place]) Glucose 90 70 - 199 mg/dL [facility] ([place]) [...] interpretive data was last revised 2022. Calcium 8.5 8.5 - 10.3 mg/dL [facility] ([place]) Bilirubin, total 0.4 0.1 - 1.2 mg/dL [facility] ([place]) Protein, pl 5.7(L) 6.5 - 8.5 g/dL [facility] ([place]) Albumin 3.5 3.5 - 5.0 g/dL [facility] Alk phos 73 40 - 130 Units/L [facility] ([place]) ALT 17 7 - 45 Units/L [facility] ([place]) AST 26 10 - 45 Units/L [facility] ([place] Comment: Hemolysis present. ??Results may be affected. Slightly Hemolyzed Specimen Blood 05/21/2024 2:29 PM CDT 05/21/2024 2:35 PM CDT Abhinav Lorenz MD LAB BLOOD ORDERABLES Final R esult Performing Organization Address [facility] Co de Phone Number [facility] ([place]) 1 [facility] [employer] [place] [address] * Troponin T high-sensitivity series (baseline, 2hr, 4hr, 6hr) (05/21/2024 11:48 AM CDT) Trop T hs 11 <=14 ng/L Comment: Interpretive Data For further hscTnT resources including the diagnostic algorithm and an aid in interpretation, copy and paste this link: https://nrl.testcatalog.org/show/hsTrop Current Interpretive Data last revised 2020. Blood 05/21/2024 11:4 8 AM CDT 05/21/2024 2:44 PM CDT Abhinav Lorenz MD LAB BLOOD ORDERABLES Final R esult Performing Organization Address City/[facility]/ZIP Co de Phone Number [facility] ([place]) 1 [facility] [employer] [place] [address] * Magnesium (05/21/2024 11:48 AM CDT) Magnesium 2.1 1.4 - 2.5 mg/dL Blood 05/21/2024 11:4 8 AM CDT 05/21/2024 2:44 PM CDT us Abhinav Lorenz MD LAB BLOOD ORDERABLES Final R esult [facility] ([place] [facility] Department [place] [address] documented in this encounter Visit Diagnoses Diagnosis Pneumonia due to infectious organism, unspecified laterality, unspecified part of lung- Primary Pneumonia due to infectious organism, unspecified laterality, unspecified part of lung Shortness of breath Encounter for screening colonoscopy documented in this encounter Admitting Diagnoses Diagnosis Pneumonia due to infectious organism, unspecified laterality, unspecified part of lung documented in this encounter Administered Medications Inactive Administered Medications - up to 3 most recent administrations Medication Order MAR Action Action Date Dose Rate Site acetaminophen (TYLENOL) tablet 650 mg 650 mg, oral, Every 4 hours PRN, 1st line for pain, fever, fever greater than 38.3 C, Starting on Mon05/21/24 at 203, Indications: Fever, PainIndications:Fever,Pain Given 05/22/2024 6:24 PM CDT 650 mg albuterol 2.5 mg /3 mL (0.083 %) nebulizer solution 2.5 mg 2.5 mg, nebulization, Once (therapeutic sales specialist), On Mon05/21/24 at 1434, For 1 dose Given 05/21/2024 2:41 PM CDT 2.5 mg albuterol 2.5 mg /3 mL (0.083 %) nebulizer solution 2.5 mg 2.5 mg, nebulization, Every 4 hours (therapeutic sales specialist), First dose on Mon05/21/24 at 2115 Given 05/21/2024 8:39 PM CDT 2.5 mg albuterol 2.5 mg /3 mL (0.083 %) nebulizer solution 2.5 mg 2.5 mg, nebulization, Every 6 hours PRN (therapeutic sales specialist), wheezing, shortness of breath, Starting on Mon05/21/24 at 2034 albuterol 2.5 mg /3 mL (0.083 %) nebulizer solution 2.5 mg 2.5 mg, nebulization, Every 6 hours (therapeutic sales specialist), First dose (after last modification) on Mon05/22/24 at 0300 Given 05/22/2024 7:18 PM CDT 2.5 mg Given 05/22/2024 2:51 PM CDT 2.5 mg Given 05/22/2024 8:45 AM CDT 2.5 mg atorvastatin (LIPITOR) tablet 40 mg 40 mg, oral, Every morning, First dose on Mon05/22/24 at 0900 Given 05/23/2024 8:37 AM CDT 40 mg Given 05/22/2024 8:24 AM CDT 40 mg cefTRIAXone (ROCEPHIN) 2,000 mg/20 mL in sterile water (premix) 2,000 mg 2,000 mg, intravenous, at 240 mL/hr, Administer over 5 Minutes, Once, On Mon05/21/24 at 1600, For 1 dose, Indications: Pneumonia, Community AcquiredIndications:Pneumonia, Community Acquired Given 05/21/2024 4:21 PM CDT 2,000 mg 240 mL/hr clopidogreL (PLAVIX) tablet 75 mg 75 mg, oral, Every morning, First dose on Mon05/22/24 at 0900 Given 05/23/2024 8:38 AM CDT 75 mg Given 05/22/2024 8:24 AM CDT 75 mg diphenhydrAMINE (BENADRYL) tab/cap 50 mg 50 mg, oral, Once, On Mon05/21/24 at 2000, For 1 dose, Administer dose 1 hour prior to contrast media injection., Indications: IV Contrast Media Allergy PremedicationIndications:IV Contrast Media Allergy Premedication Given 05/21/2024 8:07 PM CDT 50 mg doxycycline (VIBRAMYCIN) 100 mg in sodium chloride 0.9% 100 mL IVPB 100 mg, intravenous, at 100 mL/hr, Administer over 60 Minutes, 2 times daily, First dose on Mon05/21/24 at 2200, Mini-Bag Plus bag, Indications: Pneumonia, Community AcquiredIndications:Pneumonia, Community Acquired New Bag 05/22/2024 8:25 AM CDT 100 mg 100 mL/hr New Bag 05/21/2024 10:33 PM CDT 100 mg 100 mL/hr enoxaparin (LOVENOX) syringe 60 mg 60 mg (rounded from 61.2 mg = 1 mg/kg ? 61.2 kg), subcutaneous, Once, On Mon05/21/24 at 1704, For 1 dose, Indications: Venous ThrombosisIndications:Venous Thrombosis Given 05/21/2024 5:13 PM CDT 60 mg Right Lower Abdomen furosemide (LASIX) 10 mg/mL injection 40 mg 40 mg, intravenous, 2 times daily (for diuretics), First dose on Mon05/22/24 at 0915, For IV push: administer doses < 160 mg at a rate of 20 -40 mg/min. Doses >/= 160 mg should be administered no faster than 4 mg/min. Room temperature only Given 05/22/2024 4:13 PM CDT 40 mg Given 05/22/2024 9:20 AM CDT 40 mg iothalamate meglumine (CYSTO-CONRAY II) 17.2 % urinary solution 250 mL 250 mL, intra-catheter, Once in imaging, contrast, Starting on Mon05/23/24 at 0926, For 1 dose Contrast Given 05/23/2024 9:52 AM CDT 250 mL ioversoL (OPTIRAY 350) syringe 75 mL 75 mL, intravenous, Once in imaging, contrast, Starting on Mon05/21/24 at 2130, For 1 dose Contrast Given 05/21/2024 9:30 PM CDT 75 mL Right Antecubital metoprolol XL (TOPROL-XL) extended release tablet 50 mg 50 mg, oral, Every morning, First dose on Mon05/22/24 at 0900, Tablets that are scored may be split, but do not crush, chew, dissolve, open or otherwise manipulate tablet/capsule. Given 05/22/2024 8:24 AM CDT 50 mg ondansetron (ZOFRAN) injection 4 mg 4 mg, intravenous, Administer over 2 Minutes, Every 6 hours PRN, nausea, vomiting, if not tolerating PO, Starting on Mon05/21/24 at 2030, Indications: Nausea and VomitingIndications:Nausea and Vomiting Given 05/22/2024 6:24 PM CDT 4 mg ondansetron ODT (ZOFRAN-ODT) disintegrating tablet 4 mg 4 mg, oral, Every 6 hours PRN, nausea, vomiting, Starting on Mon05/21/24 at 2030, Indications: Nausea and VomitingIndications:Nausea and Vomiting pantoprazole DR (PROTONIX) extended release tablet 40 mg 40 mg, oral, Daily, First dose on Mon05/22/24 at 0900, Do not crush, chew, cut, dissolve, open or otherwise manipulate tablet/capsule., Indications: Mucositis ProphylaxisIndications:Muco sitis Prophylaxis Given 05/23/2024 8:37 AM CDT 40 mg Given 05/22/2024 8:24 AM CDT 40 mg predniSONE (DELTASONE) tablet 50 mg 50 mg, oral, Every 6 hours, First dose on Mon05/21/24 at 1644, For 3 doses, Call Radiology to schedule procedure after the 1st dose is administered., Indications: IV Contrast Media Allergy PremedicationIndications:IV Contrast Media Allergy Premedication Given 05/21/2024 10:34 PM CDT 50 mg Given 05/21/2024 4:51 PM CDT 50 mg documented in this encounter Discontinued Medications Medication Sig Discontinue Reason Start Date End Da te levoFLOXacin (LEVAQUIN) 500 mg tablet Take 1 tablet (500 mg total) by mouth daily for 5 days 05/17/2024 05/23/2024 documented as of this encounter Active and Recently Administered Medications Times are shown in CDT. Scheduled Medication Order 05/21/2024 05/22/2024 05/23/2024 albuterol 2.5 mg /3 mL (0.083 %) nebulizer solution 2.5 mg (COMPLETED) 2.5 mg, nebulization, Once (therapeutic sales specialist), On Mon05/21/24 at 1434, For 1 dose 1441 (Given - Provider: Alem Mejia, ISABELLA) albuterol 2.5 mg /3 mL (0.083 %) nebulizer solution 2.5 mg (CANCELED) 2.5 mg, nebulization, Every 4 hours (therapeutic sales specialist), First dose on Mon05/21/24 at 2115 2039 (Given - Provider: Dayana Arshad, ISABELLA) albuterol 2.5 mg /3 mL (0.083 %) nebulizer solution 2.5 mg (CANCELED) 2.5 mg, nebulization, Every 6 hours (therapeutic sales specialist), First dose (after last modification) on Mon05/22/24 at 0300 0209 (Given - Provider: Dayana Arshad, ISABELLA)0845 (Given - Provider: Boom Martinez, ISABELLA)1451 (Given - Provider: Boom Martinez, MULTI SITE LEASING CONSULTANT)1918 (Given - Provider: Dayana Arshad, MULTI SITE LEASING CONSULTANT) atorvastatin (LIPITOR) tablet 40 mg 40 mg, oral, Every morning, First dose on Mon05/22/24 at 0900 0824 (Given - Provider: Nkechi Villalobos, GAGE) 0837 (Given - Provider: Nkechi Villalobos, GAGE) cefTRIAXone (ROCEPHIN) 2,000 mg/20 mL in sterile water (premix) 2,000 mg (COMPLETED) 2,000 mg, intravenous, at 240 mL/hr, Administer over 5 Minutes, Once, On Mon05/21/24 at 1600, For 1 dose, Indications: Pneumonia, Community Acquired 1621 (Given - Provider: Urmila Estrada, GAGE) clopidogreL (PLAVIX) tablet 75 mg 75 mg, oral, Every morning, First dose on Mon05/22/24 at 0900 0824 (Given - Provider: Nkechi Villalobos, GAGE) 0838 (Given - Provider: Nkechi Villalobos RN) diphenhydrAMINE (BENADRYL) tab/cap 50 mg (COMPLETED) 50 mg, oral, Once, On Mon05/21/24 at 2000, For 1 dose, Administer dose 1 hour prior to contrast media injection., Indications: IV Contrast Media Allergy Premedication 2006 (Given - Provider: Ingrid Dominguez, CRISTIANO) doxycycline (VIBRAMYCIN) 100 mg in sodium chloride 0.9% 100 mL IVPB (CANCELED) 100 mg, intravenous, at 100 mL/hr, Administer over 60 Minutes, 2 times daily, First dose on Mon05/21/24 at 2200, Mini-Bag Plus bag, Indications: Pneumonia, Community Acquired 2233 (New Bag - Provider: Che Tijerina RN) 0825 (New Bag - Provider: Nkechi Villalobos RN) enoxaparin (LOVENOX) syringe 60 mg (COMPLETED) 60 mg (rounded from 61.2 mg = 1 mg/kg ? 61.2 kg), subcutaneous, Once, On Mon05/21/24 at 1704, For 1 dose, Indications: Venous Thrombosis 1713 (Given - Provider: Urmila Estrada RN) furosemide (LASIX) 10 mg/mL injection 40 mg (CANCELED) 40 mg, intravenous, 2 times daily (for diuretics), First dose on Mon05/22/24 at 0915, For IV push: administer doses < 160 mg at a rate of 20 -40 mg/min. Doses >/= 160 mg should be administered no faster than 4 mg/min. Room temperature only 0920 (Given - Provider: Nkechi Villalobos RN)1613 (Given - Provider: Nkechi Villalobos RN) levoFLOXacin (LEVAQUIN) tablet 750 mg 750 mg, oral, Once, On Mon05/23/24 at 1215, For 1 dose, Give 2 hrs before or 2 hrs after MVI, antacids, or other products containing sucralfate, magnesium, aluminum, iron, or zinc. May be taken without regard to meals., Indications: Urinary Tract/Genitourinary Infection 1215 (Due) metoprolol XL (TOPROL-XL) extended release tablet 50 mg 50 mg, oral, Every morning, First dose on Mon05/22/24 at 0900, Tablets that are scored may be split, but do not crush, chew, dissolve, open or otherwise manipulate tablet/capsule. 0824 (Given - Provider: Nkechi Villalobos RN) 1124 (Not Given - Provider: Nkechi Villalobos RN - Reason: Contraindicated) multivit pdomocrn-ydpg-HN-calcium (THERA-M) tablet 1 tablet 1 tablet, oral, Every morning, First dose on Mon05/22/24 at 0900 0824 (Not Given - Provider: Nkechi Villalobos RN - Reason: Patient/family refused) 0842 (Not Given - Provider: Nkechi Villalobos RN - Reason: Patient/family refused) pantoprazole DR (PROTONIX) extended release tablet 40 mg 40 mg, oral, Daily, First dose on Mon05/22/24 at 0900, Do not crush, chew, cut, dissolve, open or otherwise manipulate tablet/capsule., Indications: Mucositis Prophylaxis 0824 (Given - Provider: Nkechi Villalobos RN) 0837 (Given - Provider: Nkechi Villalobos RN) predniSONE (DELTASONE) tablet 50 mg (CANCELED) 50 mg, oral, Every 6 hours, First dose on Mon05/21/24 at 1644, For 3 doses, Call Radiology to schedule procedure after the 1st dose is administered., Indications: IV Contrast Media Allergy Premedication 165 (Given - Provider: Urmila Estrada, RN)2234 (Given - Provider: Che Tijerina, GAGE) 0441 (Not Given - Provider: Che Tijerina, GAGE - Reason: Patient/family refused - Comment: pt states too many steroids give her heatburn and causde her to go into afib) PRN Medication Order 05/21/2024 05/22/2024 05/23/2024 acetaminophen (TYLENOL) tablet 650 mg 650 mg, oral, Every 4 hours PRN, 1st line for pain, fever, fever greater than 38.3 C, Starting on Mon05/21/24 at 2030, Indications: Fever, Pain 1823 (Given - Provider: Nkechi Villalobos RN) albuterol 2.5 mg /3 mL (0.083 %) nebulizer solution 2.5 mg 2.5 mg, nebulization, Every 6 hours PRN (therapeutic sales specialist), wheezing, shortness of breath, Starting on Mon05/21/24 at 2034 HYDROcodone-acetaminophe n (NORCO) 5-325 mg per tablet 1 tablet 1 tablet, oral, Every 6 hours PRN, 2nd line for pain, Starting on Mon05/21/24 at 2109, Indications: Pain iothalamate meglumine (CYSTO-CONRAY II) 17.2 % urinary solution 250 mL (COMPLETED) 250 mL, intra-catheter, Once in imaging, contrast, Starting on Mon05/23/24 at 0926, For 1 dose 09 (Contrast Given - Provider: Mar James RT - Comment: LOT: [id number]: 04/2025) ioversoL (OPTIRAY 350) syringe 75 mL (COMPLETED) 75 mL, intravenous, Once in imaging, contrast, Starting on Mon05/21/24 at 2130, For 1 dose 2129 (Contrast Given - Provider: RT Marimar) ondansetron (ZOFRAN) injection 4 mg(Linked Group 1) 4 mg, intravenous, Administer over 2 Minutes, Every 6 hours PRN, nausea, vomiting, if not tolerating PO, Starting on Mon05/21/24 at 2030, Indications: Nausea and Vomiting 182 (Given - Provider: Nkechi Villalobos RN) ondansetron ODT (ZOFRAN-ODT) disintegrating tablet 4 mg(Linked Group 1) 4 mg, oral, Every 6 hours PRN, nausea, vomiting, Starting on Mon05/21/24 at 2030, Indications: Nausea and Vomiting 182 (See Alternative - Provider: Nkechi Villalobos RN) polyethylene glycol (MIRALAX) packet 17 g 17 g, oral, Daily PRN, constipation, Starting on Mon05/21/24 at 2030, Indications: constipation ramelteon (ROZEREM) tablet 8 mg 8 mg, oral, Nightly PRN, sleep, Starting on Mon05/21/24 at 2030, Indications: Sleep-Onset Insomnia Linked Groups Order Group 1: ondansetron ODT (ZOFRAN-ODT) disintegrating tablet 4 mgJump to med 4 mg, oral, Every 6 hours PRN, nausea, vomiting, Starting on Mon05/21/24 at 2030, Indications: Nausea and Vomiting Or ondansetron (ZOFRAN) injection 4 mgJump to med 4 mg, intravenous, Administer over 2 Minutes, Every 6 hours PRN, nausea, vomiting, if not tolerating PO, Starting on Mon05/21/24 at 2030, Indications: Nausea and Vomiting documented in this encounter Orders Medications Ordered That Darrel ht Not Have Been Administered Count Last Ordered Date First Ordered Date levoFLOXacin (LEVAQUIN) tablet 750 mg 1 albuterol 2.5 mg /3 mL (0.08 3 %) nebulizer solution 2.5 mg 1 05/21/2024 albuterol HFA (PROVENTIL HFA ,VENTOLIN HFA,PROAIR HFA) 90 mcg/actuation inhaler 2 puff 05/21/2024 azithromycin (ZITHROMAX) 500 mg/250 mL in sodium chloride 0.9% (premix) 500 mg 05/21/2024 cefTRIAXone (ROCEPHIN) 1,000 mg/10 mL in sterile water (premix) 1,000 mg 05/21/2024 cefTRIAXone (ROCEPHIN) 2,000 mg/20 mL in sterile water (premix) 2,000 mg 1 05/21/2024 diphenhydrAMINE (BENADRYL) 5 0 mg/mL injection 50 mg 2 05/21/2024 diphenhydrAMINE (BENADRYL) tab/cap 50 mg 1 05/21/2024 HYDROcodone-acetaminophen (N ORCO) 5-325 mg per tablet 1 tablet 1 05/21/2024 hydrocortisone (Solu-CORTEF) preservative free injection 200 mg 2 05/21/2024 multivit xkfgkcak-lybi-ND-ca lcium (THERA-M) tablet 1 tablet 1 05/21/2024 ondansetron ODT (ZOFRAN-ODT) disintegrating tablet 4 mg 1 05/21/2024 polyethylene glycol (MIRALAX) packet 17 g 1 05/21/2024 ramelteon (ROZEREM) tablet 8 mg 1 Diet Count Last Ordered Date First Orde red Date ADULT DISCHARGE DIET 1 05/23/2024 Nursing Count Last Ordered Date First Orde red Date DISCHARGE ACTIVITY 1 05/23/2024 DISCHARGE CALL PROVIDER 7 05/23/2024 HARRIS CATHETER - DISCONTINUE 1 05/23/2024 WEIGH PATIENT 2 05/21/2024 Consult Count Last Ordered Date First Orde red Date Consult to Urology 1 05/21/2024 Admission Count Last Ordered Date First Orde red Date ADMIT TO INPATIENT 1 05/21/2024 Discharge Count Last Ordered Date First Orde red Date DISCHARGE PATIENT 1 05/23/2024 CORE MEASURES Count Last Ordered Date First Ord ered Date REASON FOR NO VTE PROPHYLAXIS AT ADMISSION 2 05/21/2024 documented in this encounter Additional Health Concerns Infection Onset Date Last Indicated Resolved Time COVID: Suspected 05/21/2024 05/21/2024 05/21/2024 3:28 PM CDT COVID: Suspected 05/22/2024 05/22/2024 05/23/2024 5:29 AM CDT documented as of this encounter Care Teams Lead Enterprise Architect Relationship Specialty Start Date End Date Karson Forbes MD [address] [place] [address] PCP - General Family Medicine 11/23/23 Phoenix Loredo MD Consulting Physician Cardiology 01/04/19 [place] [address] [place] [address] Stoneworker Obstetrics and Gynecology 04/19/21 [place] [address] [place] [id number] Consulting Physician Urology 05/17/24 documented as of this encounter
--- OUTSIDE RECORDS SUMMARY | 2024-10-13 04:05 | XMS_ITS | Encounter Summary ---
Author Organization [facility] Healthcare Address [address] [place] [address] Care Team Providers Care Beveler Name Role Phone Phoenix Loredo MD Unavailable [phone] Aylin Lundy MD Unavailable [phone] Karson Forbes MD Primary Care Provider [phone] Daniel Last MD Unavailable [phone] Ho Phan MD Unavailable [phone] Encounter Details Date Type Department Care Team (Late st Contact Info) Description 08/12/2024 Orders Only [facility] [place] [facility] Health Information Management [address] [place] [address] Karson Forbes MD [address] [place] [address] Social History Tobacco Use Types Packs/Day Years Used Date Smoking Tobacco: Former Cigarettes 1 45 S tarted: 1979 Passive Smoke Exposure: Past Smokeless Tobacco: Never Alcohol Use Standard Drinks/Week Comments No 0 (1 standard drink = 0.6 oz pur e alcohol) [facility] Utilities Answer Date Recorded In the past 12 months has [employer], gas, oil, or water [employer] threatened to shut off services in your [...] How often do you attend chur or mandaeism services? More than 4 times per year 05/22/2024 Do you belong to any clubs o r organizations such as restoration groups, unions, fraternal or athletic groups, or [...] were you homeless or living in a senior living (including now)? 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 Gender Identity Not on file Sexual Orientation Not on file documented as of this encounter Plan of Treatment Upcoming Encounters Date Type Department Care Team (Late st Contact Info) Description 02/04/2025 9:30 AM CDT Hospital Encounter [address] [address] Vic Gaines, DO 3 [facility] [address] [place] [address] 02/04/2025 9:30 AM CDT - 02/04/2025 10:00 AM CDT Surgery [address] [address] Vic Gaines, DO 3 [facility] [address] [place] [address] COLONOSCOPY Scheduled Procedures Name Priority Associated Diagnoses Date/Ti me COLONOSCOPY Encounter for screening colonoscopy 02/04/2025 9:30 AM CDT documented as of this encounter Procedures Procedure Name Priority Date/Time Associated Diagnosis Comments SCAN - LABS 08/12/2024 documented in this encounter Results * SCAN - LABS (08/12/2024) us Karson Forbes MD Edited Re sult - Final documented in this encounter Visit Diagnoses Not on filedocumented in this encounter Care Teams Beveler Relationship Specialty Start Date End Date Karson Forbes MD [address] [place] [address] PCP - General Family Medicine 11/23/23 Phoenix Loredo MD Consulting Physician Cardiology 01/04/19 [place] [address] [place] [address] Lump Machine Operator Obstetrics and Gynecology 04/19/21 [place] [address] [place] [address] Consulting Physician Urology 05/17/24 Ho Phan MD [address] [place] [address] Medical Oncologist/Receiving Associate Store Hematology and Oncology 06/04/24 documented as of this encounter
--- OUTSIDE RECORDS SUMMARY | 2024-10-13 04:05 | XMS_ITS | Encounter Summary ---
Author Organization [facility] Healthcare Address [address] [place] [address] Care Team Providers Care Cotton Puller Name Role Phone Phoenix Loredo MD Unavailable [phone] Aylin Lundy MD Unavailable [phone] Karson Forbes MD Primary Care Provider [phone] Daniel Last MD Unavailable [phone] Ho Phan MD Unavailable [phone] Encounter Details Date Type Department Care Team (Late st Contact Info) Description 09/03/2024 Orders Only [facility] Health Information Management [address] [place] [id number] Karson Forbes MD [address] [place] [address] Social History Tobacco Use Types Packs/Day Years Used Date Smoking Tobacco: Former Cigarettes 1 45 S tarted: 1979 Passive Smoke Exposure: Past Smokeless Tobacco: Never Alcohol Use Standard Drinks/Week Comments No 0 (1 standard drink = 0.6 oz pur e alcohol) [facility] Utilities Answer Date Recorded In the past 12 months has [employer], gas, oil, or water [employer] threatened to shut off services in your [...] How often do you attend chur or christianity services? 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 Gender Identity Not on file Sexual Orientation Not on file documented as of this encounter Plan of Treatment Upcoming Encounters Date Type Department Care Team (Late st Contact Info) Description 02/04/2025 9:30 AM CDT Hospital Encounter [address] [address] Vic Gaines, DO 3 [facility] [address] [place] [address] 02/04/2025 9:30 AM CDT - 02/04/2025 10:00 AM CDT Surgery [address] [address] Vic Gaines, DO 3 [facility] [address] [place] [address] COLONOSCOPY Scheduled Procedures Name Priority Associated Diagnoses Date/Ti me COLONOSCOPY Encounter for screening colonoscopy 02/04/2025 9:30 AM CDT documented as of this encounter Procedures Procedure Name Priority Date/Time Associated Diagnosis Comments SCAN - LABS 09/03/2024 documented in this encounter Results * SCAN - LABS (09/03/2024) us Karson Forbes MD Edited Re sult - Final documented in this encounter Visit Diagnoses Not on filedocumented in this encounter Care Teams Cotton Puller Relationship Specialty Start Date End Date Karson Forbes MD [address] [place] [address] PCP - General Family Medicine 11/23/23 Phoenix Loredo MD Consulting Physician Cardiology 01/04/19 [place] [address] [place] [address] Supervisor Plate Pasting Obstetrics and Gynecology 04/19/21 [place] [address] [place] [address] Consulting Physician Urology 05/17/24 Ho Phan MD [address] [place] [address] Medical Oncologist/Cell Room Supervisor Hematology and Oncology 06/04/24 documented as of this encounter
--- OUTSIDE RECORDS SUMMARY | 2024-10-13 04:05 | XMS_ITS | Encounter Summary ---
Author Organization [facility] Address [address] [place] [address] Care Team Providers Care Stratigraphy Teacher Name Role Phone Phoenix Loredo MD Unavailable [phone] Aylin Lundy MD Unavailable Karson Forbes MD Primary Care Provider [phone] Daniel Last MD Unavailable [phone] Ho hPan MD Unavailable [phone] Reason for Referral * Consultation (Routine) - Closed Specialty Diagnoses / Procedures Referred By Contmanuela t Referred To Contact Sleep Medicine Diagnoses Excessive daytime sleepiness Karson Forbes MD [address] [place] [address] Phone: tel: fax: [facility] [address] [place] [phone] Phone: tel: fax: Referral ID Status Reason Start Date Expiration Date V isits Requested Visits Authorized [id number] Closed Specialty Services Required 06/24/2024 07/24/2025 1 1 Question Answer Please select the performing region: [facility] [[id number]] Please select the performing department: [facility] [[id number]] # of visits: 1 * Consultation (Routine) - Closed Specialty Diagnoses / Procedures Referred By Contmanuela t Referred To Contact Gastroenterology Diagnoses Screening for colon cancer Karson Forbes MD [address] [place] [address] Phone: tel: fax: [facility] at [address] [place] [address] Phone: tel: fax: Referral ID Status Reason Start Date Expiration Date V isits Requested Visits Authorized [id number] Closed Specialty Services Required 06/24/2024 07/24/2025 1 1 Question Answer Process Instructions: THE AMBULATORY REFERRAL TO GASTROENTEROLOGY IS NOT AN ORDER FOR A PROCEDURE (I.E. EGD, COLONOSCOPY.) USE THE DIRECT SCHEDULING CASE REQUEST ORDER (GI50) IF THE PATIENT REQUIRES A PROCEDURE TO BE PERFORMED. Please select the performing region: [facility] [[id number]] Please select the performing department: [facility] [[id number]] # of visits: 1 Reason for Visit * Reason Comments Annual Exam Encounter Details Date Type Department Care Team (Late st Contact Info) Description 06/24/2024 8:30 AM CDT Office Visit [facility] Primary Care at [address] [phone] Karson Forbes MD [address] [place] [address] Annual physical exam (Primary Dx); Screening for colon cancer; Excessive daytime sleepiness; Mixed hyperlipidemia; Need for hepatitis B screening test; Cigarette nicotine dependence without complication; PVD (peripheral vascular disease) (HCC); Migraine with aura and without status migrainosus, not intractable; 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 More than 4 times per year [...] any time in the past 12 m [facility], were you homeless or living in a jail (including now)? 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 Gender Identity Not on file Sexual Orientation Not on file documented as of this encounter Last Filed Vital Signs Vital Sign Reading Time Taken Comments Blood Pressure 118/72 06/24/2024 8:16 AM CDT Pulse 82 06/24/2024 8:16 AM CDT Temperature 36.6 ??C (97.8 ??F) 06/24/2024 8:16 AM CD T Respiratory Rate - - Oxygen Saturation 96% 06/24/2024 8:16 AM CDT Inhaled Oxygen Concentration - - Weight 62.8 kg (138 lb 6.4 oz) 06/24/2024 8:16 A M CDT Height 154.9 cm (5' 1 ) 06/24/2024 8:16 AM CDT Body Mass Index 26.15 06/24/2024 8:16 AM CDT documented in this encounter Ordered Prescriptions Prescription Sig Dispense Quantity Refills Last Filled Start Date End Date amoxicillin-clavul anate (AUGMENTIN) 875-125 mg per tablet Take 1 tablet by mouth 2 (two) times a day for 10 days 20 tablet 06/24/2024 07/04/2024 documented in this encounter Progress Notes * Karson Forbes MD - 06/24/2024 8:30 AM CDT Images from the original note were not included. Subjective/Objective Patient ID: Mirtha Cherry is a 59 y.o. female. Chief Complaint Chief Complaint Patient presents with Annual Exam Diagnoses and all orders for this visit: Annual physical exam (Primary) Comments: Patient is a 59-year-old female in good general health with multiple chronic health conditions treated over the past year Screening for colon cancer - Ambulatory referral to Gastroenterology; Future Excessive daytime sleepiness Comments: Patient reports prior sleep studies were borderline; continues to wake up tired with increased fatigue; may benefit from sleep study Orders: - Ambulatory referral to Sleep Medicine; Future Mixed hyperlipidemia Assessment & Plan: Last LDL near optimal Encourage low-fat high-fiber diet Continue atorvastatin 40 mg daily Orders: - Lipid panel; Future - CBC with auto differential; Future - Comprehensive metabolic panel; Future Need for hepatitis B screening test - Hepatitis B surface antibody (immune status) Blood; Future - Hepatitis B core antibody, total Blood; Future - Hepatitis B Surface Antigen Blood; Future Cigarette nicotine dependence without complication Assessment & Plan: Not well controlled, some improvement; patient reports currently smoking about 10-15 cigarettes perday; would like to quit over the next 3 months Patient is allergic to nicotine patch at T7 Discussed other treatment alternatives; patient will continue to think about options for treatment PVD (peripheral vascular disease) (HCC) Assessment & Plan: Stable, well controlled; status post stent placement Continue low-fat high-fiber diet Continue atorvastatin 40 mg daily; Plavix 75 mg daily Migraine with aura and without status migrainosus, not intractable Assessment & Plan: Stable, generally well controlled; reports less frequent less severe headaches; good relief with sumatriptan 50 mg p.r.n. 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 HPI HPI Patient is a 59 year old female, presenting for annual exam. Dyslipidemia: -last LDL near otpimal Tobacco Use: -had quit for 14 days after surgery -goal is to quit during those 3 months -smoking 10-15 cigarettes per day -allergic to [place] patch adhesive; PVD: -s/p stents -ABIS improved with stents Carotid artery stenosi: -mild artherosclerosis with no significant stenosis; -follow-up in one year (06/2024) Migraine: -have been improving, less frequent and less severe - COPD: -has been doing well for patient --did not having walking, PT or Respiratory while in hospital --after discharge developed dyspnea and had to admitted and received treatment -doing well now, no issues Kidney Cancer: -s/p left nephroureterectomy; -follows withuroogy -scheduled for evaluation for port placement today; will receive chemotherapy Sleep Concerns: -has poor quality sleep; last sleep study was around 4.0 -wakes up tired; Add kidney surgery to histor BP 118/72 (BP Location: Left arm, Patient Position: Sitting) Pulse 82 Temp 36.6 ??C (97.8 ??F) (Temporal) Ht 154.9 cm (5' 1 ) Wt 62.8 kg (138 lb 6.4 oz) LMP (LMP Unknown) SpO2 96% BMI 26.15 kg/m?? Current Outpatient Medications Medication Sig Dispense Refill [...] doses in 24 hours. 9 tablet 3 amoxicillin-clavulanate (AUGMENTIN) 875-125 mg per tablet Take 1 tablet by mouth 2 (two) times a day for 10 days 20 tablet 0 No current facility-administered medications for this visit. Allergies as of 06/24/2024 - Reviewed 06/24/2024 Allergen Reaction Noted Adhesive Itching, Rash, and Blisters Adhesive tape-silicones Itching, Rash, and Blisters 06/07/2016 Other Itching, Rash, and Blisters 05/14/2024 Codeine Nausea only 06/07/2016 Povidone-iodine Itching 02/17/2017 Review of Systems Constitutional: Negative for activity change, appetite change, chills, fatigue, fever and unexpected weight change. HENT: Negative for congestion, hearing loss, postnasal drip, rhinorrhea, sinus pressure, sinus painand sore throat. Eyes: Negative for visual disturbance. Respiratory: Negative for cough, chest tightness, shortness of breath and wheezing. Cardiovascular: Negative for chest pain and leg swelling. Gastrointestinal: Negative for abdominal pain, constipation, diarrhea, nausea and vomiting. Endocrine: Negative for cold intolerance, heat intolerance, polydipsia and polyuria. Genitourinary: Negative for difficulty urinating, dysuria and frequency. Musculoskeletal: Negative for arthralgias and myalgias. Neurological: Negative for dizziness, weakness, numbness and headaches. Psychiatric/Behavioral: Positive for sleep disturbance. Negative for agitation, dysphoric mood and suicidal ideas. The patient is not nervous/anxious. Physical Exam Vitals reviewed. Constitutional: Appearance: Normal appearance. HENT: Head: Normocephalic and atraumatic. Cardiovascular: Rate and Rhythm: Normal rate and regular rhythm. Pulses: Normal pulses. Heart sounds: Normal heart sounds. Pulmonary: Effort: Pulmonary effort is normal. Breath sounds: No wheezing, rhonchi or rales. Abdominal: General: Abdomen is flat. Palpations: Abdomen is soft. Musculoskeletal: General: No swelling or signs of injury. Normal range of motion. Skin: General: Skin is warm and dry. Neurological: General: No focal deficit present. Mental Status: She is alert and oriented to person, place, and time. Psychiatric: Mood and Affect: Mood normal. Behavior: Behavior normal. Thought Content: Thought content normal. 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) Stable, status post resection; patient to follow up with Oncology for chemotherapy * Assessment & Plan Note - Karson Forbes MD - 06/24/2024 4:03 PM CDT Associated Problem(s): PVD (peripheral vascular disease) (HCC) Stable, well controlled; status post stent placement Continue low-fat high-fiber diet Continue atorvastatin 40 mg daily; Plavix 75 mg daily * Assessment & Plan Note - Karson Forbes MD - 06/24/2024 4:03 PM CDT Associated Problem(s): Hyperlipidemia Last LDL near optimal Encourage low-fat high-fiber diet Continue atorvastatin 40 mg daily * Assessment & Plan Note - Karson Forbes MD - 06/24/2024 4:03 PM CDT Associated Problem(s): Cigarette nicotine dependence without complication Not well controlled, some improvement; patient reports currently smoking about 10-15 cigarettes perday; would like to quit over the next 3 months Patient is allergic to nicotine patch at T7 Discussed other treatment alternatives; patient will continue to think about options for treatment * Assessment & Plan Note - Karson Forbes MD - 06/24/2024 4:03 PM CDT Associated Problem(s): Migraine with aura and without status migrainosus, not intractable Stable, generally well controlled; reports less frequent less severe headaches; good relief with sumatriptan 50 mg p.r.n. for severe headaches documented in this encounter Plan of Treatment Upcoming Encounters Date Type Department Care Team (Late st Contact Info) Description 02/04/2025 9:30 AM CDT Hospital Encounter [address] [address] Vic Gaines, DO [address] [address] 02/04/2025 9:30 AM CDT - 02/04/2025 10:00 AM CDT Surgery [address] [address] Vic Gaines, DO 3 [facility] [address] [place] [address] COLONOSCOPY Scheduled Procedures Name Priority Associated Diagnoses Date/Ti me COLONOSCOPY Encounter for screening colonoscopy 02/04/2025 9:30 AM CDT Scheduled Referrals Name Type Priority Associated Diagnoses Order Schedule Ambulatory referral to Gastroenterology Outpatient Referral Routine Screening for colon cancer Expected: 06/24/2024 (Approximate), Expires: 06/20/2025 Ambulatory referral to Sleep Medicine Outpatient Referral Routine Excessive daytime sleepiness Expected: 07/08/2024 (Approximate), Expires: 06/24/2025 documented as of this encounter Results * Hepatitis B Surface Antigen Blood (06/24/2024 9:32 AM CDT) HepBsAg Nonreactive Nonreactive Blood 06/24/2024 9:32 AM CDT 06/24/2024 2:59 PM CDT Karson Forbes MD LAB MICROBIOLOGY - [employer] L ORDERABLES Final Result JAY CARNES [address] [employer] [place], [place] [id number] * Hepatitis B core antibody, total Blood (06/24/2024 9:32 AM CDT) Pathologist [facility] Hep B core IgG/IgM Nonreactive Nonreactive Comment:Testing performed by : [facility], [address] [place]., [address] Blood 06/24/2024 9:32 AM CDT 06/25/2024 10:14 AM CDT Karson Forbes MD LAB MICROBIOLOGY - [employer] L ORDERABLES Final Result Performing Organization Address City/[facility]/ZIP Co de Phone Number JAY TRICE [address] [place] [address] * Hepatitis B surface antibody (immune status) [...] Current interpretive data was last revised on 20. Blood 06/24/2024 9:32 AM CDT 06/24/2024 2:59 PM CDT us Karson Forbes MD LAB MICROBIOLOGY - [place] [address] Department [place] [address] * (ABNORMAL) Comprehensive metabolic panel (06/24/2024 9:32 [...] MD LAB BLOOD ORDERABLES Ivette l Result Performing Organization Address [facility] de Phone Number JAY CARNES [address] [place] [address] * CBC with auto differential (06/24/2024 9:32 AM CDT) WBC 7.1 3.8 - 9.9 K/cumm Hgb 13.9 11.9 - 15.5 g/dL C[facility] CH Hct 41.4 35.6 - 45.5 % [facility] CH Plt 249 150 - 400 K/cumm [facility] CH MPV 10.1 9.1 - 12.3 fL [facility] CH RBC 4.47 3.90 - 5.20 M/cumm [facility] CH MCV 92.6 81.3 - 96.4 fL [facility] CH MCH 31.1 27.1 - 33.3 pg [facility] CH MCHC 33.6 32.3 - 35.7 g/dL [facility] CH RDW CV 13.2 11.1 - 14.9 % [facility] CH RDW SD 45.2 35.7 - 48.1 fL [facility] CH NRBC abs 0.00 0.00 - 0.01 K/cumm [facility] CH Blood 06/24/2024 9:32 AM CDT 06/24/2024 2:59 PM CDT Karson Forbes MD LAB BLOOD ORDERABLES Ivette l Result Performing Organization Address [facility] Co de Phone Number JAY CARNES [address] Department [email or web address] [place], [place] [id number] * Lipid panel (06/24/2024 9:32 AM CDT) [...] on 2018. HDL 46 >=40 mg/dL JAY CARNES Comment: Interpretive Data Ages [...] 2018. LDL, calculated 95 <=129 mg/dL JAY CARNES Comment: Interpretive Data Ages [...] NCEP Expert Panel. Circulation 2004;110:227 3. Dariusz M et al. ADOLFO Cardiol. 2020 February 06;5(5):540-548. doi: 10.1001/jamacardio.2020.0013 Current Interpretive Data was last revised on 2024. Non-HDL Cholesterol 115 mg/dL JAY CARNES Comment: Interpretive Data Ages [...] last revised on 2018. Chol/HDL ratio 4 JAY CARNES Blood 06/24/2024 9:32 AM CDT 06/24/2024 2:59 PM CDT us Karson Forbes MD LAB BLOOD ORDERABLES Ivette get Result JAY [address] Department [place] [address] documented in this encounter Visit Diagnoses Diagnosis Annual physical exam- Primary Routine general medical examination at a health care facility Screening for colon cancer Special screening for malignant neoplasms, colon Excessive daytime sleepiness Mixed hyperlipidemia Need for hepatitis B screening test Cigarette nicotine dependence without complication PVD (peripheral vascular disease) (HCC) Unspecified peripheral vascular disease Migraine with aura and without status migrainosus, not intractable 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) Centrilobular emphysema (HCC) Encounter for screening colonoscopy documented in this encounter Discontinued Medications Medication Sig Discontinue Reason Start Date End Da te HYDROcodone-acetaminophen (NORCO) 5-325 mg per tabletIndications:Pain Take 1 tablet by mouth every 6 (six) hours as needed for pain Therapy completed 05/17/2024 06/20/[address] (PROTONIX) 40 mg EC tabletIndications:Mucosit is Prophylaxis Take 1 tablet (40 mg total) by mouth daily Therapy completed 05/24/2024 06/20/2024 furosemide (LASIX) 20 mg tablet Take 1 tablet (20 mg total) by mouth daily Therapy completed 05/23/2024 06/24/2024 ketorolac (TORADOL) 10 mg tablet Take 1 tablet (10 mg total) by mouth every 6 (six) hours as needed Therapy completed 04/18/2024 06/24/2024 documented as of this encounter Historical Medications * This list may reflect changes made after this encounter. ketorolac (TORADOL) 10 mg tablet Take 1 tablet (10 mg total) by mouth every 6 (six) hours as needed 04/18/2024 06/24/2024 added in this encounter Care Teams Stratigraphy Teacher Relationship Specialty Start Date End Date [place] [address] PCP - General Family Medicine 11/23/23 Phoenix Loredo MD Consulting Physician Cardiology 01/04/19 [place] [address] [place] [address] Medical Technologist Obstetrics and Gynecology 04/19/21 [place] [address] [place] [address] Consulting Physician Urology 05/17/24 Ho Phan MD [address] [place] [address] Medical Oncologist/Adjunct Latin Professor Hematology and Oncology 06/04/24 documented as of this encounter
--- OUTSIDE RECORDS SUMMARY | 2024-10-13 04:05 | XMS_ITS | Encounter Summary ---
Author Organization 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) [C65.2] Procedures [place] LAPAROSCOPY NEPHRECTOMY W/TOTAL URETERECTOMY Hand Assisted Laparoscopic Left Nephroureterectomy Referral ID Status Reason Start Date Expiration Date Visits Re quested Visits Authorized [id number] 1 1 Encounter Details Date Type Department Care Team (Late st Contact Info) Description 05/17/2024 11:35 AM CDT Anesthesia Event [facility] Operating Room [address] [place] [address] Levi Porter MD [address] [place] [address] [place] [address] Anesthesia Record Procedure Summary Procedure Name Responsible [...] of handoff: PACU 1514 An Stop Meds Name Total midazolam 2 mg fentaNYL 200 mcg lidocaine (CARDIAC) syringe 2 % 3 mL propofol 200 mg rocuronium 110 mg ePHEDrine 30 mg glycopyrrolate 0.4 mg neostigmine 2 mg sugammadex 150 mg ondansetron 4 mg dexamethasone 4 mg/ml 8 mg ceFAZolin (ANCEF) 2,000 mg/20 mL in ster ile water (premix) 2,000 mg 2,000 mg heparin 5,000 unit/mL injection 5,000 Un its 5,000 Units lidocaine (LTA) solution 4 % 2 mL lidocaine infusion 8 mg/mL D5W (premix) 270.04 mg albuterol inhaler 2 puff Lactated Ringer's (LR) infusion 1,400 mL * Agents Name O2 N2O Air Sevoflurane Inspired Sevoflurane * Blood No blood administrations on file. Lines, Drains, and Airways Type Details Placement Removal Peripheral IV Placement Date: 05/17/24; Placement Time: 900; Catheter Size: 18 G; Orientation: Left, Posterior; Location: Hand; Inserted by: Aylin ALMONTE; Insertion Attempts: 1; Patient Tolerance: Tolerated well; Removal Date: 05/19/24; Removal Time: 2099; Removal Reason: Infiltrated 05/17/24900 by Pepper Fierro RN 05/19/242099 by Emily Vizcarra RN Peripheral IV Placement [...] Chioma Pennington RN 05/17/24 1426 by Chioma Pennington RN Peripheral IV Placement Date: 05/17/24; Placement [...] Removal Time: 1457 05/17/24 1207 by Addison Neff CRNA 05/17/24 1457 by Addison Neff CRNA Wound 05/17/24; 1321; N; Incision; Medial, Mid-line, Left; trocar sites x2, 1 long incision; 05/20/24; 1053 05/17/24 1321 by Dayanara Wilson RN 05/20/24 1053 by Kathy Chavez RN RETIRED Surgical Site 05/17/24; 1321; Le ft; Abdomen; Trocar Sites x 2, 1 long incision; 05/20/24; 0717; Cutover - Retired LDA replaced with new LDA 05/17/24 1321 by Chioma Pennington RN 05/20/24 0717 by Dayanara Wilson RN Urethral Catheter Placement Date: 05/17/24; Placement Time: 145; Inserted by: Dr Last; Type: Double-lumen, Non-latex; Balloon Size: 10 mL; Urine Returned: Yes; Removal Date: 05/23/24; Removal Time: 113; Removal Reason: Per order 05/17/24 1452 by Chioma Pennington RN 05/23/24 1132 by Nkechi Villalobos RN documented in this encounter Social History Tobacco Use Types Packs/Day Years Used Date Smoking Tobacco: Every Day Cigarettes 1 45 Started: 1979 Passive Smoke Exposure: Past Smokeless Tobacco: Never Alcohol Use Standard Drinks/Week Comments No 0 (1 standard drink = 0.6 oz pur e alcohol) [facility] Utilities Answer Date Recorded In the past 12 months has [employer], gas, oil, or water [employer] threatened to shut off services in your [...] often do you attend chur ch or anabaptist services? 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 Gender Identity Not on file Sexual Orientation Not on file documented as of this encounter OR Notes * Anesthesia Postprocedure Evaluation - Levi Porter MD - 05/24/2024 6:36 AM CDT Patient: Mirtha Cherry Procedure Summary Date: 05/17/24 Room / Location: [facility] / [facility] Anesthesia Start: 1135 Anesthesia Stop: 1514 Procedure: Hand Assisted Laparoscopic Left Nephroureterectomy (Left: Abdomen) Diagnosis: 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) (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) [C65.2]) Surgeons: Daniel Last MD Responsible Provider: Levi Porter MD Anesthesia Type: general ASA Status: 2 Anesthesia Type: general Last vitals BP 138/73 (BP Location: Right arm) Pulse 88 Temp 36.7 ??C (98 ??F) (Oral) Resp 18 SpO2 92% Anesthesia Post Evaluation Patient location during evaluation: PACU Patient participation: complete - patient participated Level of consciousness: follows simple commands and arouses cardiology consultant Pain management: satisfactory to patient Airway patency: adequate Evidence of recall: no Cardiovascular status: acceptable and hemodynamically stable Respiratory status: acceptable Hydration status: acceptable Pt is: normothermic Nausea/Vomiting status: none No notable events documented. * Anesthesia Procedure Notes - Addison Neff CRNA - 05/17/2024 12:06 PM CDTAssociated Order(s): Airway Airway Patient location: OR Urgency: elective Indications for airway management: anesthesia Difficult airway: no Staff: Placed by: SHUTTLECOCK FEATHER TRIMMER: Addison Neff CRNA Emergent airway documentation: Risks and benefits discussed: yes Consent obtained: yes Consent given by: patient Airway prep: Preoxygenated: yes Patient position: sniffing MILS maintained throughout: yes Mask difficulty assessment: 1 - vent by mask Spontaneous ventilation during airway: present Sedation level during airway: GA Final airway details: Final airway type: endotracheal airway Tube type: ETT ETT size: 7.0 mm Cuffed: yes Technique used for successful ETT placement: direct laryngoscopy Devices/Methods used in placement: LTA and stylet Insertion site: oral Blade type: Cheema Blade size: 2 Cormack-Lehane (direct): grade IIa - partial view of glottis Cuff volume: 7 mL Cuff inflated with: air ETT to lips: 22 cm Placement verified by: auscultation and CO2 detection Airway secured with: silk tape Number of attempts: 1 Planned trial extubation: yes * Anesthesia Preprocedure Evaluation - Levi Porter MD - 05/14/2024 1:45 PM CDT Images from the original note were not included. Anesthesia Evaluation Mirtha Cherry is a 59 y.o. female. She represents to the SEC in prep for upcoming surgery with Dr. Last. 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 Cardiovascular + Hyperlipidemia + Atrial fibrillation/flutter (? isolated event) - + Other arrhythmia - PVCs. + PAD/Aorta disease (bilateral iliac stents) - prior percutaneous revascularization. Comments: Dr. Loredo is Spud Grader Stress Test 2020 Conclusions: 1. Adequate stress test in regards to heart rate. Good exercise tolerance for age 7.9 Mets. 2. No exercise induced chest pain. 3. Maximal exercise ECG that is borderline positive for ischemia with upsloping inferolateral ST segment depressions that persisted into recovery. 4. Frequent PVCs. 5. Nuclear images are pending and they will be reported separately. Respiratory + COPD - emphysema. + Asthma + Current smoker - Counseled to abstain from smoking the day of surgery. Hepatic / Heme Hepatic/Heme system: negative Gastrointestinal + GERD - PRN medication use only. + Hiatal hernia Musculoskeletal/Pain + Headaches - migraine headaches. Endocrine / Other + Cancer history- current cancer. Cancer type: Transitional Cell Ca of Left [place]. 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) 05/08/2024 Chronic rhinitis 05/01/2024 Centrilobular emphysema (HCC) 05/01/2024 Atherosclerosis of [place] arteries of extremities with rest pain, bilateral [...] Atopic rhinitis 02/22/2014 PVD (peripheral vascular disease) ([facility]) 02/22/2014 Trigeminal neuralgia 02/19/2013 Past Medical History: Diagnosis Date Asthma Asthma; Comments: DNT 07/10/2014 - Chronic rhinitis 05/01/2024 Dysphagia Gastroesophageal reflux disease GERD HX 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 Last Dose Start Date End Date Provider albuterol HFA (PROVENTIL HFA,VENTOLIN HFA,PROAIR HFA) 90 mcg/actuation inhaler More than a month 05/01/24 05/01/25 Che Nair, BILLING SERVICES MANAGER Inhale 2 puffs every 6 (six) hours as needed for wheezing or shortness of breath aspirin 81 mg enteric coated tablet Past Week -- -- ProviderCharles MD atorvastatin (LIPITOR) 40 mg tablet Past Week -- -- Charles Stauffer MD Bacillus coagulans (PROBIOTIC, B. COAGULANS, ORAL) Past Week -- -- Charles Stauffer MD clopidogreL (PLAVIX) 75 mg tablet Past Week -- -- ProviderCharles MD coenzyme Q10 200 mg capsule Past Week -- -- Charles Stauffer MD fluticasone propionate (FLONASE) 50 mcg/actuation nasal spray 05/13/2024 -- -- Charles Stauffer MD metoprolol XL (TOPROL-XL) 50 mg extended release tablet 05/14/2024 -- -- Charles Stauffer MD multivitamin tablet Past Week -- -- Charles Stauffer MD SUMAtriptan (IMITREX) 50 mg tablet -- 06/21/23 -- Harper Myers, DO May repeat dose once in 2 hours if no relief. Do not exceed 2 doses in 24 hours. Current Outpatient Medications: aspirin 81 mg enteric coated tablet atorvastatin (LIPITOR) 40 mg tablet Bacillus coagulans (PROBIOTIC, B. COAGULANS, ORAL) clopidogreL (PLAVIX) 75 mg tablet coenzyme Q10 200 mg capsule fluticasone propionate (FLONASE) 50 mcg/actuation nasal spray metoprolol XL (TOPROL-XL) 50 mg extended release tablet multivitamin tablet albuterol HFA (PROVENTIL HFA,VENTOLIN HFA,PROAIR HFA) 90 mcg/actuation inhaler SUMAtriptan (IMITREX) 50 mg tablet Social History Tobacco Use Smoking Status Every Day Current packs/day: 0.75 Average packs/day: 1 pack/day for 44.6 years (44.4 ttl pk-yrs) Types: Cigarettes Start date: 1979 Passive exposure: Past Smokeless Tobacco Never Alcohol Use: Not At Risk (05/14/2024) AUDIT-C Frequency of Alcohol Consumption: Never Average Number of Drinks: Patient does not drink Frequency of Binge Drinking: Never Substance and Sexual Activity Drug Use Yes Types: Tobacco Family History Problem Relation Age of Onset [...] Diabetes mellitus; Ovarian cancer Mother's Sister 55 PAT Physical Exam Airway Exam: Mallampati: see comments Cervical ROM: FROM TM distance: normal (NCAT) Cardiovascular Exam: Rate: regular Rhythm: regular Negative for Murmur Negative for peripheral edema Pulmonary Exam: LCTA, bilat Crackles negative Rhonchi negative Wheezing negative EENT Exam: trachea midline (No carotid bruits bilaterally) Dental Exam: Appears intact Skin Exam: Skin is warm and dry. Abdominal exam: Abdomen is soft. Bowel sounds are present. Current state: Patient's current state is cooperative. Vitals: 05/14/24 1321 BP: 134/77 Pulse: 78 SpO2: 99% EKG: normal EKG, normal sinus rhythm Lab Results Component Value Date ABORH A Positive 05/14/2024 IDCOOMB Negative 05/14/2024 Hgb A1C: 05/14/2024: 5.7 % (H) CBC RBC: 05/14/2024: 4.57 M/cumm RDW: No results found for requested labs within last 30 days. MCHC: 05/14/2024: 32.5 g/dL MCH: 05/14/2024: 30.6 pg MCV: 05/14/2024: 94.3 fL Hct: 05/14/2024: 43.1 % Hgb: 05/14/2024: 14.0 g/dL WBC: 05/14/2024: 8.1 K/cumm MPV: 05/14/2024: 10.0 fL Platelets: 05/14/2024: 239 K/cumm RDW CV: 05/14/2024: 13.1 % RDW Sd: 05/14/2024: 44.8 fL BMP Glucose: 05/14/2024: 92 mg/dL Calcium: 05/14/2024: 9.3 mg/dL Sodium: 05/14/2024: 145 mmol/L Potassium: 05/14/2024: 4.6 mmol/L CO2: 05/14/2024: 23 mmol/L Chloride: 05/14/2024: 109 mmol/L BUN: 05/14/2024: 8 mg/dL Creatinine: 05/14/2024: 0.80 mg/dL Patient is a 59 y.o. female with no clinical risk factors per ACC/AHA guidelines and moderate functional capacity presenting for an intermediate risk procedure. SEC evaluation complete. Patient was offered the presence of a second provider during physical exam, the patient declined. Pre-procedure instruction sheet reviewed with patient, understanding verbalized. Copy provided to patient. STOP-Bang Total Score: 2 Lr Activity Status Index Score: 13.5 DOS Physical Exam Medical history, medications, and allergies reviewed. Attestation: This PAT evaluation 05/17/2024. Airway Exam: Mallampati: III Cervical ROM: FROM TM distance: normal Cardiovascular Exam: Rate: regular Rhythm: regular Pulmonary Exam: LCTA, bilat Dental Exam: Appears intact Current state: Patient's current state is cooperative and interactive. Anesthesia Plan ASA 2 My patient is approved for the Anesthesia Controlled Medication protocol when under care of a SHUTTLECOCK FEATHER TRIMMER Planned anesthesia: General Team communication plan: oral ET tube Induction: Induction: intravenous. Postoperative Plan: Postoperative administration opioids intended. No postoperative mechanical ventilation intended. Patient's planned disposition post procedure is Floor. Informed Consent: Anesthesia plan and risks discussed with patient. Consent and Attending signature: I and/or my designee have discussed the anesthesia plan, benefits, possible alternatives, parental presence at time of induction (if indicated), and clinically relevant risks that may include dental injury, unintentional awareness, and/or other complications. The patient and/or parent/legal guardian understand, and agree to proceed. All questions answered. documented in this encounter Plan of Treatment Upcoming Encounters Date Type Department Care Team (Late st Contact Info) Description 02/04/2025 9:30 AM CDT Hospital Encounter [address] [address] Vic Gaines, DO [address] [address] 02/04/2025 9:30 AM CDT - 02/04/2025 10:00 AM CDT Surgery [address] [address] Vic Gaines, DO 3 [facility] [address] [place] [address] COLONOSCOPY Scheduled Procedures Name Priority Associated Diagnoses Date/Ti me COLONOSCOPY Encounter for screening colonoscopy 02/04/2025 9:30 AM CDT documented as of this encounter Procedures Procedure Name Priority Date/Time Associated Diagnosis Comments AZ AN PROCEDURE PLACEHOLDER Routine 05/17/2024 12:06 PM CDT AZ AN ELECTIVE ENDOTRACHEAL AIRWAY Routine 05/17/2024 12:06 PM CDT documented in this encounter Results * AZ AN ELECTIVE ENDOTRACHEAL AIRWAY, AZ AN PROCEDURE PLACEHOLDER (05/17/2024 12:06 PM CDT) Narrative Addison Neff CRNA - 05/17/2024 12:06 PM CDT Addison Neff CRNA ? 05/17/2024 12:07 PM Airway Patient location: OR Urgency: elective Indications for airway management: anesthesia Difficult airway: no Staff: Placed by: SHUTTLECOCK FEATHER TRIMMER: Addison Neff CRNA Emergent airway documentation: Risks and benefits discussed: yes Consent obtained: yes Consent given by: patient Airway prep: Preoxygenated: yes Patient position: sniffing MILS maintained throughout: yes Mask difficulty assessment: 1 - vent by mask Spontaneous ventilation during airway: present Sedation level during airway: GA Final airway details: Final airway type: endotracheal airway Tube type: ETT ETT size: 7.0 mm Cuffed: yes Technique used for successful ETT placement: direct laryngoscopy Devices/Methods used in placement: LTA and stylet Insertion site: oral Blade type: Cheema Blade size: 2 Cormack-Lehane (direct): grade IIa - partial view of glottis Cuff volume: 7 mL Cuff inflated with: air ETT to lips: 22 cm Placement verified by: auscultation and CO2 detection Airway secured with: silk tape Number of attempts: 1 Planned trial extubation: yes Levi Porter MD ANESTHESIA ORDERABLES Fi nal Result documented in this encounter Visit Diagnoses Not on filedocumented in this encounter Administered Medications Inactive Administered Medications - up to 3 most recent administrations Medication Order MAR Action Action Date Dose Rate Site albuterol HFA (PROVENTIL HFA,VENTOLIN HFA,PROAIR HFA) 90 mcg/actuation inhaler inhalation, As needed, Starting on Mon05/17/24 at 1256, Anesthesia Intra-op Given 05/17/2024 12:56 PM CDT 2 puffs ceFAZolin (ANCEF) 2,000 mg/20 mL in sterile water (premix) 2,000 mg 2,000 mg, intravenous, at 400 mL/hr, Administer over 3 Minutes, Once, On Mon05/17/24 at 0915, For 1 dose, Pre-Op, Administer within 60 minutes of incision., Indications: Prophylaxis, SurgicalIndications:Prophylaxis , Surgical Given 05/17/2024 11:57 AM CDT 2,000 mg dexAMETHasone (DECADRON) 4 mg/mL injection intravenous, Administer over 2 Minutes, As needed, Starting on Mon05/17/24 at 1223, Anesthesia Intra-op Given 05/17/2024 12:23 PM CDT 8 mg ePHEDrine injection intravenous, Administer over 5 Minutes, As needed, Starting on Mon05/17/24 at 1154, Anesthesia Intra-op Given 05/17/2024 12:13 PM CDT 15 mg Given 05/17/2024 11:54 AM CDT 15 mg fentaNYL (SUBLIMAZE) preservative free injection intravenous, As needed, Starting on Mon05/17/24 at 1139, Anesthesia Intra-op Given 05/17/2024 2:36 PM CDT 50 mcg Given 05/17/2024 1:13 PM CDT 25 mcg Given 05/17/2024 12:41 PM CDT 25 mcg glycopyrrolate (ROBINUL) injection intravenous, Administer over 1 Minutes, As needed, Starting on Mon05/17/24 at 1228, Anesthesia Intra-op Given 05/17/2024 2:53 PM CDT 0.2 mg Given 05/17/2024 12:28 PM CDT 0.2 mg heparin 5,000 unit/mL injection 5,000 Units 5,000 Units, subcutaneous, Once, On Mon05/17/24 at 1100, For 1 dose, Pre-Op, Indications: VTE ProphylaxisIndications:VTE Prophylaxis Given 05/17/2024 12:00 PM CDT 5,000 Units Lactated Ringer's (LR) infusion 30 mL/hr, intravenous, Continuous, Starting on Mon05/17/24 at 0915, Pre-Op New Bag 05/17/2024 2:29 PM CDT 30 mL/hr Rate/Dose Verify 05/17/2024 11:35 AM CDT 30 mL/ hr New Bag 05/17/2024 8:57 AM CDT 30 mL/hr 30 mL/hr lidocaine (cardiac) (XYLOCAINE) preservative free injection intravenous, As needed, Starting on Mon05/17/24 at 1139, Anesthesia Intra-op, Indications: Ventricular ArrhythmiasIndications:Ventricu lar Arrhythmias Given 05/17/2024 11:39 AM CDT 3 mL lidocaine (LTA) 4 % laryngotracheal solution nebulization, As needed, Starting on Mon05/17/24 at 1141, Anesthesia Intra-op Given 05/17/2024 11:41 AM CDT 2 mL lidocaine in dextrose 5% 2 g/250 mL (8 mg/mL) infusion (premix) intravenous, Continuous PRN, Starting on Mon05/17/24 at 1222, Anesthesia Intra-op New Bag 05/17/2024 12:22 PM CDT 1.5 mg/kg/hr 11.775 mL/hr midazolam (VERSED) 1 mg/mL preservative free injection intravenous, Administer over 2 Minutes, As needed, Starting on Mon05/17/24 at 1135, Anesthesia Intra-op Given 05/17/2024 11:35 AM CDT 2 mg neostigmine injection intravenous, Administer over 3 Minutes, As needed, Starting on Mon05/17/24 at 1453, Anesthesia Intra-op Given 05/17/2024 2:53 PM CDT 2 mg ondansetron (ZOFRAN) injection intravenous, Administer over 2 Minutes, As needed, Starting on Mon05/17/24 at 1414, Anesthesia Intra-op Given 05/17/2024 2:14 PM CDT 4 mg propofoL (DIPRIVAN) 10 mg/mL IV intravenous, As needed, Starting on Mon05/17/24 at 1139, Anesthesia Intra-op Given 05/17/2024 2:36 PM CDT 100 mg Given 05/17/2024 11:39 AM CDT 100 mg rocuronium (ZEMURON) injection intravenous, As needed, Starting on Mon05/17/24 at 1139, Anesthesia Intra-op Given 05/17/2024 2:37 PM CDT 10 mg Given 05/17/2024 12:44 PM CDT 50 mg Given 05/17/2024 11:39 AM CDT 50 mg sugammadex (BRIDION) 100 mg/mL intravenous solution intravenous, As needed, Starting on Mon05/17/24 at 1414, Anesthesia Intra-op Given 05/17/2024 2:14 PM CDT 150 mg documented in this encounter Care Teams Front Elevator Operator Relationship Specialty Start Date End Date Karson Forbes MD [address] [place] [address] PCP - General Family Medicine 11/23/23 Phoenix Loredo MD Consulting Physician Cardiology 01/04/19 [place] [address] [place] [address] Payable Representative Obstetrics and Gynecology 04/19/21 [place] [address] [place] [address] Consulting Physician Urology 05/17/24 documented as of this encounter
--- OUTSIDE RECORDS SUMMARY | 2024-10-13 04:05 | XMS_ITS | Encounter Summary ---
Author Organization [facility] Address [address] [place] [address] Care Team Providers Care Manpower Development Specialist Name Role Phone Phoenix Loredo MD Unavailable [phone] Aylin Lundy MD Unavailable Karson Forbes MD Primary Care Provider [phone] Daniel Last MD Unavailable [phone] Ho Phan MD Unavailable [phone] Encounter Details Date Type Department Care Team (Late st Contact Info) Description 07/24/2024 Orders Only [facility] [address] [place] [id number] Karson Forbes MD [address] [place] [address] Social History Tobacco Use Types Packs/Day Years Used Date Smoking Tobacco: Former Cigarettes 1 45 S tarted: 1980 Passive Smoke Exposure: Past Smokeless Tobacco: Never Alcohol Use Standard Drinks/Week Comments No 0 (1 standard drink = 0.6 oz pur e alcohol) [facility] Utilities Answer Date Recorded In the past 12 months has [employer], gas, oil, or water [employer] threatened to shut off services in your [...] How often do you attend chur or latter day services? More than 4 times per year 05/22/2024 Do you belong to any clubs o r organizations such as pentecostal groups, unions, fraternal or athletic groups, or [...] were you homeless or living in a half-way (including now)? 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 Gender Identity Not on file Sexual Orientation Not on file documented as of this encounter Plan of Treatment Upcoming Encounters Date Type Department Care Team (Late st Contact Info) Description 02/04/2025 9:30 AM CDT Hospital Encounter [address] [address] Vic Gaines, DO 3 [facility] [address] [place] [address] 02/04/2025 9:30 AM CDT - 02/04/2025 10:00 AM CDT Surgery [address] [address] Vic Gaines, DO 3 [facility] [address] [place] [address] COLONOSCOPY Scheduled Procedures Name Priority Associated Diagnoses Date/Ti me COLONOSCOPY Encounter for screening colonoscopy 02/04/2025 9:30 AM CDT documented as of this encounter Procedures Procedure Name Priority Date/Time Associated Diagnosis Comments SCAN - LABS 07/24/2024 documented in this encounter Results * SCAN - LABS (07/24/2024) us Karson Forbes MD Edited Re sult - Final documented in this encounter Visit Diagnoses Not on filedocumented in this encounter Care Teams Manpower Development Specialist Relationship Specialty Start Date End Date Karson Forbes MD [address] [place] [address] PCP - General Family Medicine 11/23/23 Phoenix Loredo MD Consulting Physician Cardiology 01/04/19 [place] [address] [place] [address] Vice President Risk Management Obstetrics and Gynecology 04/19/21 [place] [address] [place] [address] Consulting Physician Urology 05/17/24 Ho Phan MD [address] [place] [address] Medical Oncologist/Adjunct Professor Of English Hematology and Oncology 06/04/24 documented as of this encounter
--- OUTSIDE RECORDS SUMMARY | 2024-10-13 04:05 | XMS_ITS | Encounter Summary ---
Author Organization [facility] Address [address] [place] [address] Phone Care Team Providers Care Metal Burrer Name Role Phone Phoenix Loredo MD Unavailable [phone] Aylin Lundy MD Unavailable [phone] Karson Forbes MD Primary Care Provider [phone] Daniel Last MD Unavailable [phone] Ho Phan MD Unavailable [phone] Encounter Details Date Type Department Care Team (Late st Contact Info) Description 06/25/2024 Orders Only [facility] [address] [facility] [address] 7th Floor, [place] [address] Ellis Novoa MD [address] [facility] [address] [place] [address] Urothelial carcinoma of bladder (HCC) Social History Tobacco Use Types Packs/Day Years Used Date Smoking Tobacco: Former Cigarettes 1 45 S tarted: 1979 Passive Smoke Exposure: Past Smokeless Tobacco: Never Alcohol Use Standard Drinks/Week Comments No 0 (1 standard drink = 0.6 oz pur e alcohol) [facility] Utilities Answer Date Recorded In the past 12 months has [employer], gas, oil, or water [employer] threatened to shut off services in your [...] often do you attend chur ch or caodaism services? More than 4 times per year 05/22/2024 Do you belong to any clubs o r organizations such as jehovah's witness groups, unions, fraternal or athletic groups, or [...] any time in the past 12 m ont, were you homeless or living in a detention (including now)? 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 Gender Identity Not on file Sexual Orientation Not on file documented as of this encounter Plan of Treatment Upcoming Encounters Date Type Department Care Team (Late st Contact Info) Description 02/04/2025 9:30 AM CDT Hospital Encounter [address] [address] Vic Gaines, DO [address] [address] 02/04/2025 9:30 AM CDT - 02/04/2025 10:00 AM CDT Surgery [address] [address] Vic Gaines, DO 3 [facility] [address] [place] [address] COLONOSCOPY Scheduled Orders Name Type Priority Associated Diagnoses Orde r Schedule Surgical pathology Pathology and Cytology Routine Urothelial carcinoma of bladder (HCC) Expected: 06/25/2024, Expires: 06/25/2025 Scheduled Procedures Name Priority Associated Diagnoses Date/Ti me COLONOSCOPY Encounter for screening colonoscopy 02/04/2025 9:30 AM CDT documented as of this encounter Results * Surgical pathology (06/26/2024 3:59 PM CDT) Tissue (Miscellaneous) 06/26/2024 3:59 PM CDT 06/26/2024 3:59 PM CDT Narrative [facility] - 06/28/2024 10:44 AM CDT EPIC results best viewed via link to PDF [facility] Consult Service [address], [address], [place] [address] Note to Patients: This report [...] SURGICAL PATHOLOGY REPORT * Consult Report * [facility] is providing an additional review of previously collected tissue. FINAL Patient Name: ??OMSHE HARTLEYChamp Address: ??[address] [place] [address], ?[place], [place] ??[address] Gender: ??F : ??1965 (Age: 59) Hospital #: ??[id number] Patient Type: [facility] Location: ??UNKNOWN Taken: ??06/26/2024 Received: ??06/26/2024 Accessioned: ??06/26/2024 Reported: ??06/28/2024 Physician(s): Ellis Novoa M.D. [facility] Department of Pathology [facility] [place] [address] P: [phone] ? F: [phone] Diagnosis: Consult material received from [facility], [place], [place] (OSC: [id number]; 05/17/2024). Kidney and ureter, left, nephroureterectomy ? [...] Received for review are nineteen slides labeled [id number], accompanied by a corresponding pathology report. The material originates from [facility], [place], [place] . Selected slide(s) may be digitally scanned for our files, and all materials are returned to the referring institution, along with a copy of our final report. Any testing required for diagnostic purposes was performed in the Department of Pathology and Immunology at [facility], [address] [place] [address] CLIA # [id number] The performance characteristics of the testing cited in this report (if any) were determined by the ??[facility] Department of Pathology and Immunology [facility], as part of an ongoing quality liaison program and in compliance with federally mandated [...] and the performance characteristics determined by the [facility], [facility] Department of Pathology and Immunology. ??It has not been cleared or approved by the U.S. Food and Drug Administration. ??Any test designated as LDT was developed and its performance characteristics determined by [facility]. It has not been cleared or approved by the FDA. This test is used for clinical purposes and should not be regarded as investigational or for research. Report images and/or scanned reports, if included, only viewable in PDF version of report. us Ellis Novoa MD LAB PATHOLOGY ORDERABLES Fi nal Result [facility] [address] [address] documented in this encounter Visit Diagnoses Diagnosis Urothelial carcinoma of bladder (HCC) Urothelial carcinoma of bladder (HCC) Encounter for screening colonoscopy documented in this encounter Care Teams Metal Burrer Relationship Specialty Start Date End Date Karson Forbes MD [address] [place] [address] PCP - General Family Medicine 11/23/23 Phoenix Loredo MD Consulting Physician Cardiology 01/04/19 [place] [address] [place] [address] Show Horse Driver Obstetrics and Gynecology 04/19/21 [place] [address] [place] [address] Consulting Physician Urology 05/17/24 Ho Phan MD [address] [place] [address] Medical Oncologist/Sash Clamp Operator Hematology and Oncology 06/04/24 documented as of this encounter
--- OUTSIDE RECORDS SUMMARY | 2024-10-13 04:06 | XMS_ITS | Encounter Summary ---
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, bilateral legs (HCC) Procedures [facility] Phoenix Loredo MD [address] [place] [address] [address] SU [address] [place] [id number] Phone: tel: fax: [facility] [address] [place] [id number] Referral ID Status Reason Start Date Expiration Date V isits Requested Visits Authorized [id number] Authorized 04/15/2024 05/15/2025 1 1 Encounter Details Date Type Department Care Team (Latest Contact Info) Description 04/15/2024 8:15 AM CDT Office Visit [place] [facility] Specialist at [address] [address] Phoenix Loredo MD [address] [place] [address] [address] [place] [address] 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, bilateral legs (HCC) (Primary Dx); Palpitations; Bilateral carotid artery stenosis; Multiple-type hyperlipidemia Social History Tobacco Use Types Packs/Day Years [...] on file 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 Gender Identity Not on file Sexual Orientation Not on file documented as of this encounter Last Filed Vital Signs Vital Sign Reading Time Taken Comments Blood Pressure 123/73 04/15/2024 8:17 AM CDT Pulse 67 04/15/2024 8:17 AM CDT Temperature - - Respiratory Rate - - Oxygen Saturation - - Inhaled Oxygen Concentration - - Weight 63.5 kg (140 lb) 04/15/2024 8:17 AM CDT Height 152.4 cm (5') 04/15/2024 8:17 AM CDT Body Mass Index 27.34 04/15/2024 8:17 AM CDT documented in this encounter Progress Notes * Phoenix Loredo MD - 04/15/2024 8:15 AM CDT Cardiology note Reason for Office Visit: PAD History of Present Illness: Mirtha Cherry is a 58 y.o. female who presents to the office for a follow up visit for PAD, s/p stent placement, tobacco abuse and dyslipidemia. In 2004, patient had two bare metal stents placd in bilateral common iliac arteries. They were restented with ICAST ( 7 X 38 mm, post dilated using 8 mm balloon) covered stents in 2007 at [facility]. Patient had balloon angioplasty done for repeat stenosis in 2014. Patient was going to undergo bunion surgery and refered by safety spec for weak pedal pulses. US doppler showed toe perfusion below borderline for wound healing. ABE was abnormal. Patient underwent CT angio on 06/27/2016 involving stent restonsis in the left common artery (mid vessel) with the left external iliac artery is diffusely narrow caliber. Bilateral three vessel run off. Patient states sometimes her left buttock will hurt with walking and cramp but not always consistent. Improves with rest. Present for long time. Patient had harish angio with intervention on 09/09/2016 successful repeat stenting of the aortic bifurcation using kissing stents technique 8 x 59 ICAST covered stents post dilated balloon bilaterally.Post ABE had normalized. Patient states feeling much better- no leg pain. ABE improved. ABE in June 2023 is normal BLE, mild carotid stenosis. Can walk unlimited. No open sores. Patient denies chest pain, SOB, palpitations. Patient still smoking 0.5 ppd . Walking 1/2- 1 mile. Patient weight is down by 8 lbs To have procedure for kidney abnormality for hematuria Weight: 148 lbs Review of Systems: Review of Systems Constitutional: Positive for weight loss. Negative for decreased appetite, malaise/fatigue and weight gain. HENT: Negative for ear discharge, hearing loss and nosebleeds. Eyes: Positive for blurred vision. Negative for visual disturbance. Cardiovascular: Negative for chest pain, claudication, dyspnea on exertion, irregular heartbeat, leg swelling, near-syncope, palpitations, paroxysmal nocturnal dyspnea and syncope. Respiratory: Negative for cough, shortness of breath, sleep disturbances due to breathing, snoring and wheezing. Hematologic/Lymphatic: Negative for bleeding problem. Does not bruise/bleed easily. Skin: Negative for color change and poor wound healing. Musculoskeletal: Negative for back pain and myalgias. Gastrointestinal: Negative for bloating, heartburn and nausea. Genitourinary: Positive for hematuria. Neurological: Negative for excessive daytime sleepiness, dizziness, headaches, light-headedness, loss of balance and tremors. Psychiatric/Behavioral: Negative for altered mental status, depression and memory loss. 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 HX OTHER MEDICAL 2009 capal tunnel release [...] 54 Social History Tobacco Use Smoking status: Current Every Day Smoker Packs/day: 1.00 Years: 40.00 Pack years: 40.00 Smokeless tobacco: Never Used Tobacco comment: Smoking History Packs/day: 0.5 Packs Substance Use Topics Alcohol use: No Drug use: Never Allergies: Allergies Allergen Reactions Adhesive Rash Reaction: Rash, Codeine Nausea only, Nausea Only and Unknown Reaction: Nausea, Adhesive Tape-Silicones Itching, Other (See comments) and Unknown blisters Povidone-Iodine Itching Medications: Current Outpatient Medications Medication Sig Dispense Refill albuterol (PROVENTIL,VENTOLIN) 2.5 mg /3 mL (0.083 %) nebulizer solution Take 3 mL (2.5 mg total) by nebulization every 6 (six) hours as needed for wheezing 75 mL 2 albuterol HFA (PROVENTIL HFA,VENTOLIN HFA,PROAIR HFA) 90 mcg/actuation inhaler Inhale 2 puffs every6 (six) hours as needed for wheezing 1 Inhaler 2 amoxicillin-clavulanate (AUGMENTIN) 875-125 mg per tablet Take 1 tablet by mouth 2 (two) times a day for 7 days 14 tablet 0 aspirin 81 mg tablet Take 81 mg by mouth. atorvastatin (LIPITOR) 40 mg tablet clopidogrel (PLAVIX) 75 mg tablet Take 75 mg by mouth. coenzyme Q10 (CO Q-10) 200 mg capsule Take 1 capsule by oral route every day 0 0 fluticasone propionate (FLONASE) 50 mcg/actuation nasal spray SHAKE LIQUID AND USE 1 SPRAY IN EACH NOSTRIL DAILY 16 mL 2 Lactobacillus acidophilus (PROBIOTIC) 10 billion cell capsule Take 1 capsule by oral route every day 0 0 loratadine (CLARITIN) 10 mg tablet Take 10 mg by mouth daily. multivitamin capsule Take 1 capsule by mouth daily. pimecrolimus (ELIDEL) 1 % cream Apply topically 2 (two) times a day 30 g 1 raNITIdine (ZANTAC) 300 mg tablet Take 1 tablet (300 mg total) by mouth 2 (two) times a day 60 tablet 11 SUMAtriptan (IMITREX) 50 mg tablet TAKE 1 TABLET BY MOUTH EARLY POSSIBLE AFTER ONSET OF MIGRAINE. REPEAT 1 DOSE IN 2 HRS IF HEADACHE RETURNS. 9 tablet 2 trimethoprim-polymyxin B (POLYTRIM) ophthalmic solution Administer 1 drop into both eyes every 4 (four) hours while awake 10 mL 0 No current facility-administered medications for this visit. Vital Signs: Vitals BP 123/73 (BP Location: Right arm, Patient Position: Sitting) Pulse 67 Ht 152.4 cm (5') Wt 63.5 kg (140 lb) LMP (LMP Unknown) BMI 27.34 kg/m?? Vitals: 04/15/24 0817 BP: 123/73 Pulse: 67 Wt Readings from Last 3 Encounters: 04/15/24 63.5 kg (140 lb) 04/08/24 67.1 kg (148 lb) 01/04/24 67.1 kg (148 lb) Body mass index is 27.34 kg/m??. Physical Exam: Physical Exam Constitutional: General: She is not in acute distress. Appearance: Normal appearance. She is well-developed. She is not diaphoretic. HENT: Mouth/Throat: Pharynx: No oropharyngeal exudate. Neck: Vascular: No carotid bruit or JVD. Trachea: No tracheal deviation. Cardiovascular: Rate and Rhythm: Normal rate and regular rhythm. Pulses: Intact distal pulses. No decreased pulses. Carotid pulses are 2+ on the right side and 2+ on the left side. Radial pulses are 2+ on the right side and 2+ on the left side. Femoral pulses are 2+ on the right side and 2+ on the left side. Popliteal pulses are 2+ on the right side and 2+ on the left side. Dorsalis pedis pulses are 2+ on the right side and 2+ on the left side. Posterior tibial pulses are 2+ on the right side and 2+ on the left side. Heart sounds: S1 normal and S2 normal. No gallop. Comments: Occasional ectopy Pulmonary: Effort: Pulmonary effort is normal. Breath sounds: No decreased breath sounds, wheezing, rhonchi or rales. Abdominal: General: Bowel sounds are normal. Palpations: Abdomen is soft. Skin: General: Skin is warm and dry. Neurological: Mental Status: She is alert and oriented to person, place, and time. Pulse exam ; On the right, dorsalis pedis was palpable. Posterior tibial weakly palpable. OnThe left, dorsalis pedis absent. Posterior tibial strongly dopplerable Labs: Lab Results Component Value Date INR 1.0 02/19/2023 INR 1.0 04/29/2021 INR 0.95 06/01/2017 Lab Results Component Value Date PT 10.6 02/19/2023 PT 11.5 04/29/2021 PT 10.7 06/01/2017 Lab Results Component Value Date TSH 0.99 06/21/2023 Lab Results Component Value Date AST 25 06/21/2023 ALT 16 06/21/2023 ALKPHOS 92 06/21/2023 ALBUMIN 4.4 06/21/2023 Lab Results Component Value Date SODIUM 141 06/21/2023 POTASSIUM 5.0 (H) 06/21/2023 CHLORIDE 107 06/21/2023 CO2 24 06/21/2023 ANIONGAP 11 06/21/2023 GLUCOSEUR Negative 06/21/2023 No results found for: BNP Lab Results Component Value Date SODIUM 141 06/21/2023 SODIUM 140 02/19/2023 SODIUM 142 06/20/2022 POTASSIUM 5.0 (H) 06/21/2023 POTASSIUM 3.6 02/19/2023 POTASSIUM 4.6 06/20/2022 CHLORIDE 107 06/21/2023 CHLORIDE 105 02/19/2023 CHLORIDE 108 06/20/2022 CO2 24 06/21/2023 CO2 23 02/19/2023 CO2 23 06/20/2022 BUNSER 12 06/21/2023 BUNSER 13 02/19/2023 BUNSER 10 06/20/2022 CREATININE 0.92 06/21/2023 CREATININE 0.82 02/19/2023 CREATININE 0.85 06/20/2022 GFRNAA 72 06/21/2023 GFRNAA 83 02/19/2023 GFRNAA 79 06/20/2022 GLUCOSE 100 06/21/2023 CALCIUM 9.2 06/21/2023 CALCIUM 9.0 02/19/2023 CALCIUM 9.4 06/20/2022 ALBUMIN 4.4 06/21/2023 ALBUMIN 3.8 02/19/2023 ALBUMIN 4.4 06/20/2022 Lab Results Component Value Date SODIUM 141 06/21/2023 POTASSIUM 5.0 (H) 06/21/2023 CHLORIDE 107 06/21/2023 CO2 24 06/21/2023 ANIONGAP 11 06/21/2023 BUNSER 12 06/21/2023 CREATININE 0.92 06/21/2023 GLUCOSE 100 06/21/2023 CALCIUM 9.2 06/21/2023 BILITOT 0.2 06/21/2023 PROT 6.5 06/21/2023 ALBUMIN 4.4 06/21/2023 ALKPHOS 92 06/21/2023 ALT 16 06/21/2023 AST 25 06/21/2023 Lab Results Component Value Date WBC 10.4 (H) 06/21/2023 HGB 15.3 06/21/2023 HCT 46.3 (H) 06/21/2023 LABPLAT 233 06/21/2023 MPV 10.9 06/21/2023 RBC 4.91 06/21/2023 MCV 94.3 06/21/2023 MCH 31.2 06/21/2023 MCHC 33.0 06/21/2023 RDWCV 13.2 06/21/2023 RDWSD 45.7 06/21/2023 NRBCABS 0.00 06/21/2023 Lab Results Component Value Date CHOL 145 06/21/2023 TRIG 142 06/21/2023 HDL 39 (L) 06/21/2023 LDLCALC 78 06/21/2023 NONHDLCHOL 106 06/21/2023 CHOLHDL 4 06/21/2023 Testing: Tests: 05/2016 Ankle-brachial Index ratio was 0.81 on the right and 0.62 on the left. Ankle-brachial Index ratio in 03/2017 was 1.05 on the right and 1.05 on the left. Ankle-brachial Index ratio in 07/2017 was 1.03 on the right and 1.03 on the left. ankle brachial index ration04/09/2018 was 1.13 on the right and 1.08 on the left. 01/2019 ABE 1.04 on the right and .93 on the left 10/2019Rt ABE 1.00 Lt ABE 1.00 04/09/2018bcarotid duplex mild bilateral. Labs in 05/2016 Chol 175 , Tri 173, HDL 35, LDL 105, creat .79, normal LFT Labs in 02/2017 Chol 149 , Tri 192, HDL 36, LDL 75, normal TSH ABE 04/2021 Conclusions: 1. No arterial insufficiency in the right lower extremity with ankle-brachial index 1.12 which is unchanged from prior study in October 2019. Biphasic to triphasic waveform at the ankle. 2. Mild arterial insufficiency at rest in the left lower extremity with ankle-brachial index 0.79. This represents a decline from prior value of 1.0 in October 2019. Biphasic to triphasic waveform at the ankle. EK12/2015 SR possible old anterior [place] 07/2016 SR , possible old anterior NJ AIF 05/2021 IMPRESSION 1. Patent previously-implanted covered stents in the distal abdominal aorta extending into the common iliac arteries bilaterally. 2. Patent previously-implanted stent in the left external iliac artery with area of in-stent restenosis treated using 8 x 38 mm [employer] covered stent post- dilated using 8 mm balloon. 3. No evidence of femoral or popliteal disease or infrapopliteal disease on either side. 4. Successful vascular access closure. ABE 07/29 Conclusions: 1. No arterial insufficiency at rest in the right lower extremity with ankle-brachial index 1.09 which is unchanged from prior study in April 2021. Triphasic waveform at the ankle. 2. No arterial insufficiency at rest in the left lower extremity with ankle-brachial index 1.16. This is improved from pre intervention value of 0.79 in April 2021. Triphasic waveform at the ankle. stress test in 09/2021 Conclusions: 1. Negative myocardial perfusion imaging without infarct or ischemia. 2. Normal gated spect study with Ejection Fraction of 50%. Echo in 09/2021 Conclusions: Normal left ventricular systolic function with no focal wall motion abnormalities. Normal left ventricular size. Normal left ventricular wall thickness. Normal left ventricular diastolic function. Ejection fraction is measured at 67 %. Normal right ventricular systolic pressure. Estimated peak RVSP is 25-30 mmHg. Mild tricuspid regurgitation. There is an anterior echo free space consistent with epicardial fat pad. 30 monitor Conclusions: 1. Predominant rhythm is normal sinus rhythm with a minimum heart rate of 55 beats per minute in sinus and a maximum heart rate of 150 beats per minute also in sinus. 2. Heart rate and rate variability is appropriate. 3. No prolonged pauses. 4. Frequent PVCs totaling 11% of all beats. There was an asymptomatic 4 beat run of nonsustained V-tach and another asymptomatic 9 beat run of nonsustained V-tach. 5. There were 6 patient activated events with 2 auto triggered events. Some of the patient activated events were due to fluttering or skipped beats. They were associated with sinus rhythm ranging in heart rate from 81-113 beats per minute with PVCs noted. PVC burden was 11% ABE in October 2021 Conclusions: 1. No arterial insufficiency in either lower extremitiy with ABE of 1.0 on the right and 1.1 on the left. 2. Triphasic waveform at the ankle bilaterally. 3. results unchanged fomr prior study in 07/2021. ABE 05/2022 1. In the right lower extremity, the ankle brachial index is normal, ABE 1.04, with triphasic wave form. 2. In the left lower extremity, the ankle brachial index is normal, ABE 1.04, with biphasic wave form. ABE 12/20/22 1. There is mild arterial disease in the right lower extremity, ABE 0.85, biphasic wave form. 2. There is mild arterial disease in the left lower extremity, ABE 0.81, biphasic wave form. ABE 06/30/2023 1. No evidence of arterial insufficiency in the right lower extremity with ankle-brachial index of 1.09. Triphasic waveform at the ankle. 2. No arterial insufficiency at rest in the left lower extremity with ankle-brachial index 0.93. Biphasic waveform at the ankle. Carotid duplex 06/30/2023 1. Mild atherosclerosis with no evidence of significant stenosis of the extracranial carotid arteries bilaterally. ABE in 04/2024 CONCLUSIONS: 1. No arterial insufficiency at rest in the right lower extremity with ankle-brachial index 0.95. 2. No arterial insufficiency at rest in the left lower extremity ankle-brachial index 1.05. 3. Biphasic to triphasic waveform at the ankle bilaterally. EKG 07/12/2021 showed sinus rhythm with PVCs. EKG in 04/2024 : NSR, NL. Assessment: #1 PAD, Bilateral ICAST stents at aortic bifurcation in 2007 and 09/09/2016. Left hip exertional symptoms,S/p AIF 05/2021 with patent previously-implanted covered stents in the distal abdominal aorta extending into the common iliac arteries bilaterally and patent previously-implanted stent in the left external iliac artery with area of in-stent restenosis treated using 8 x 38 mm [employer]Stream covered stent post-dilated using 8 mm balloon. Follow up ABE 07/2021 and October 2021 were normal. ABE in June 2023 and April 2024 are normal #2 Hyperlidemia- followed by PCP, LDL above target #3 Tobacco abuse, ongoing trying to quit #4 Carotid stenosis, mild by duplex 06/2023 #5 Frequent PVCs, 11% burden by a monitor in August 2021. Normal echo. Negative nuclear stress test in September 2021 although borderline by EKG criteria Plan: Continue same medication regimen. She can walk unlimited and has no open sores. Continue tight control of blood pressure LDL close to target. LDL 78 in June 2023. Continue statin and recheck lipid profile Smoking cessation was strongly encouraged Continue diet, exercise, and weight reduction. 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 04/15/2024 @ 9:00 AM Phoenix Loredo MD Cc:Karson Forbes MD documented in this encounter Miscellaneous Notes * Addendum Note - Aliyah Bhatia - 04/15/2024 8:15 AM CDTAddended by: ALIYAH BHATIA on: 04/15/2024 09:04 AM Modules accepted: Orders documented in this encounter Plan of Treatment Upcoming Encounters Date Type Department Care Team (Late st Contact Info) Description 02/04/2025 9:30 AM CDT Hospital Encounter [address] [address] Vic Gaines, DO 3 [facility] [address] [place] [address] 02/04/2025 9:30 AM CDT - 02/04/2025 10:00 AM CDT Surgery [address] [address] Vic Gaines, DO 3 [facility] [address] [place] [address] COLONOSCOPY Scheduled Orders Name Type Priority Associated Diagnoses Orde r Schedule US ABE Imaging Schedule Routine , Read Routine (OP Routine) 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, bilateral legs (HCC) Expected: 04/15/2024, Expires: 04/15/2025 ECG 12 lead ECG Routine Palpitations Ordered: 04/15/2024 Scheduled Procedures Name Priority Associated Diagnoses Date/Ti me COLONOSCOPY Encounter for screening colonoscopy 02/04/2025 9:30 AM CDT documented as of this encounter Procedures Procedure Name Priority Date/Time Associated Diagnosis Comments ECG 12-LEAD Routine 04/15/2024 8:29 AM CDT Palpitations ECG 12-LEAD Routine 04/15/2024 8:26 AM CDT Palpitations documented in this encounter Results * ECG 12 lead (04/15/2024 8:29 AM CDT) Phoenix Loredo MD ECG ORDERABLES Final Result * ECG 12 lead (04/15/2024 8:26 AM CDT) Phoenix Loredo MD ECG ORDERABLES Final Result documented in this encounter Visit Diagnoses Diagnosis 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, bilateral legs (HCC)- Primary Palpitations Bilateral carotid artery stenosis Occlusion and stenosis of carotid artery without mention of cerebral infarction Multiple-type hyperlipidemia Other and unspecified hyperlipidemia Encounter for screening colonoscopy documented in this encounter Care Teams Manager Car Relationship Specialty Start Date End Date Karson Forbes MD [address] [place] [address] PCP - General Family Medicine 11/23/23 Phoenix Loredo MD Consulting Physician Cardiology 01/04/19 [place] [address] [place] [address] Airplane Gastank Liner Assembler Obstetrics and Gynecology 04/19/21 documented as of this encounter
--- OUTSIDE RECORDS SUMMARY | 2024-10-13 04:06 | XMS_ITS | Encounter Summary ---
Author Organization [facility] Address [address] [place] [address] Care Team Providers Care Die Filer Name Role Phone Phoenix Loredo MD Unavailable [phone] Aylin Lundy MD Unavailable [phone] Harper Myers DO Primary Care Provider [phone] Encounter Details Date Type Department Care Team (Late st Contact Info) Description 07/04/2023 Telephone [place] [place] [facility] at [address] [place] [address] [place], [place] Social History Tobacco Use Types Packs/Day Years [...] making you feel afraid or unsafe? 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 No Vm set up * Telephone Encounter - Faith Cabrera MA - 07/04/2023 9:24 AM CDT ----- Message from Kenzie Be NP sent at 07/03/2023 8:26 AM CDT ----- Mild carotid stenosis, we will discuss during upcoming clinic visit documented in this encounter Plan of Treatment Upcoming Encounters Date Type Department Care Team (Late st Contact Info) Description 02/04/2025 9:30 AM CDT Hospital Encounter [address] [address] Vic Gaines DO [address] [address] 02/04/2025 9:30 AM CDT - 02/04/2025 10:00 AM CDT Surgery [address] [address] Vic Gaines DO [address] [address] COLONOSCOPY Scheduled Procedures Name Priority Associated Diagnoses Date/Ti me COLONOSCOPY Encounter for screening colonoscopy 02/04/2025 9:30 AM CDT documented as of this encounter Visit Diagnoses Not on filedocumented in this encounter Care Teams Die Filer Relationship Specialty Start [place] [address] [place] [address] PCP - General Family Medicine 09/23/21 11/22/23 Phoenix Loredo MD Consulting Physician Cardiology 01/04/19 [place] [address] [place] [address] Truck Dispatcher Obstetrics and Gynecology 04/19/21 documented as of this encounter
--- OUTSIDE RECORDS SUMMARY | 2024-10-13 04:06 | XMS_ITS | Encounter Summary ---
Author Organization [facility] Healthcare Address [address] [place] [address] Care Team Providers Care Telephony Engineer Name Role Phone Phoenix Loredo MD Unavailable [phone] Aylin Lundy MD Unavailable [phone] Karson Forbes MD Primary Care Provider [phone] Reason for Visit * Reason Comments 6 MO f/u Centrilobular Emphysem New DX Kidney cancer Encounter Details Date Type Department Care Team (Late st Contact Info) Description 05/01/2024 10:30 AM CDT Office Visit [facility] Pulmonary at [address] [place] [address] Che Nair, ENVIRONMENTAL ENGINEERING TECHNICIAN [address] [place] [id number] Centrilobular emphysema (HCC) (Primary Dx); Chronic rhinitis; Cigarette nicotine dependence without complication Social History Tobacco Use Types Packs/Day Years [...] on file Legal Sex 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 Gender Identity Not on file Sexual Orientation Not on file documented as of this encounter Last Filed Vital Signs Vital Sign Reading Time Taken Comments Blood Pressure 140/70 05/01/2024 10:25 AM CDT Pulse 67 05/01/2024 10:25 AM CDT Temperature 36.2 ??C (97.1 ??F) 05/01/2024 10:25 AM C DT Respiratory Rate 16 05/01/2024 10:25 AM CDT Oxygen Saturation 97% 05/01/2024 10:25 AM CDT Inhaled Oxygen Concentration - - Weight 63.5 kg (140 lb) 05/01/2024 10:25 AM CDT Height 154.9 cm (5' 1 ) 05/01/2024 10:25 AM CDT Body Mass Index 26.45 05/01/2024 10:25 AM CDT documented in this encounter Ordered Prescriptions Prescription Sig Dispense Quantity Refills Last Filled Start Date End Date albuterol HFA (PROVENTIL HFA,VENTOLIN HFA,PROAIR HFA) 90 mcg/actuation inhalerIndications :Centrilobular emphysema (HCC) Inhale 2 puffs every 6 (six) hours as needed for wheezing or shortness of breath 1 each 11 05/01/2024 documented in this encounter Progress Notes * Che Nair, ENVIRONMENTAL ENGINEERING TECHNICIAN - 05/01/2024 10:30 AM CDT Images from the original note were not included. PULMONARY CLINIC NOTE Visit Date: 05/01/2024 Chief Complaint: Presents today for Dyspnea on exertion HPI: Mirtha Cherry is a 59 y.o. female w/ PMH of bilateral mastectomy in 2018 for abnormal mammogram/MRIand found to have precancerous lesions (no radiation), peripheral arterial disease status post stenting, esophageal stricture who presents on 05/01/2024 for follow up on dyspnea on exertion. She was originally evaluated in July of 2021 at which time she reported an asthma diagnosis whenshe was younger. She had never been on maintenance inhaled therapy and had relatively stable dyspnea reported that it had been increasing gradually over the last several years. She underwent pulmonary function testing which indicated air trapping and impaired diffusion capacity and was subsequentlystarted on Bevespi. Unfortunately in February of 2023 she developed CAP, was treated with cefdinir with improvement in symptoms but then developed a significant sinus infection that led to worsening dyspnea. She was using her nebulizer 4-6 times per day with variable heart rate. She eventually recoveredto baseline but reports that this seemed to take an extended period of time, about 3 months. Today she reports she has been stable over the last year no respiratory infection or exacerbation. She has not been using her Bevespi, she is unsure that makes any clinical difference in her breathing. She has only used her albuterol once in the last 6 months. She does report that it is more difficult to breathe in the hot weather however she does not experience any shortness of breath with normal everyday activity. Cough is intermittently persistent mildly productive of clear sputum. She has wheezing, hemoptysis, chest pain, fever/chills, night sweats, unintentional weight loss. 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 3 surgeries. last procedure 01/08/2008 Family History: Family History Problem Relation Age of Onset [...] mellitus; Ovarian cancer Mother's Sister 55 Social History: Current smoker at about 5 cigarettes per day Previously smoked about 1 pack per day for 40 years Review of Systems: Review of Systems Constitutional: Positive for fatigue. Negative for activity change, chills and unexpected weight change. HENT: Negative for congestion, postnasal drip, rhinorrhea, sinus pressure, sore throat and voice change. Eyes: Negative for visual disturbance. Respiratory: Positive for cough and shortness of breath. Negative for chest tightness and wheezing. Denies hemoptysis Cardiovascular: Negative for chest pain, palpitations and leg swelling. Gastrointestinal: Denies GERD Genitourinary: Negative for difficulty urinating. Musculoskeletal: Positive for arthralgias. Negative for joint swelling. Skin: Negative for rash. Neurological: Negative for weakness. Hematological: Negative for adenopathy. Psychiatric/Behavioral: Negative for sleep disturbance. OBJECTIVE: Physical Exam: Vitals: 05/01/24 1025 BP: 140/70 BP Location: Left arm Patient Position: Sitting Pulse: 67 Resp: 16 Temp: 36.2 ??C (97.1 ??F) TempSrc: Temporal SpO2: 97% Weight: 63.5 kg (140 lb) Height: 154.9 cm (5' 1 ) Physical Exam Constitutional: Appearance: Normal appearance. HENT: Head: Normocephalic. Nose: No congestion or rhinorrhea. Mouth/Throat: Mouth: Mucous membranes are moist. Eyes: Pupils: Pupils are equal, round, and reactive to light. Neck: Comments: No supraclavicular adenopathy Cardiovascular: Rate and Rhythm: Normal rate and regular rhythm. Heart sounds: No murmur heard. Pulmonary: Effort: Pulmonary effort is normal. No tachypnea or respiratory distress. Breath sounds: No decreased air movement. No decreased breath sounds, wheezing, rhonchi or rales. Abdominal: General: Bowel sounds are normal. Palpations: Abdomen is soft. Tenderness: There is no abdominal tenderness. Musculoskeletal: General: No swelling. Right lower leg: No edema. Left lower leg: No edema. Lymphadenopathy: Cervical: No cervical adenopathy. Skin: General: Skin is warm and dry. Nails: There is no clubbing. Neurological: General: No focal deficit present. Mental Status: She is alert and oriented to person, place, and time. Psychiatric: Mood and Affect: Mood normal. Data Review: Follow-up low-dose CT scan 12/12/2022: Stable bilateral pulmonary nodules. No new or worrisome nodules Low-dose CT scan for lung cancer screening 09/12/2022: Personally reviewed and notable for stable bilateral pulmonary nodules. Of note there is a minor endobronchial lesion noted in the left lower lobe likely representing airway secretions. A neoplastic etiology can not be excluded CT lung cancer screening 09/11/2021: Multiple pulmonary nodules measuring less than 5 mm. Lung rads2 Alpha-1 antitrypsin MM Home sleep study with a respiratory event index of 4.8 PSG 12/27/2021: AHI of 0.9. Mild intermittent snoring Pulmonary Functions Testing Results: 08/16/2021: Pre bronchodilator FEV1 79% predicted, FVC 84% predicted, FEV1/FVC 0.73, TLC 118% predicted, RV 168% predicted, DLCO 51% predicted ASSESSMENT AND PLAN Diagnoses and all orders for this visit: Centrilobular emphysema (HCC) (Primary) Assessment & Plan: She has not been using Bevespi consistently We have we discussed the benefits of maintenance inhaled therapy PFT revealed air trapping and decreased diffusion capacity in 2020 She will continue albuterol 2 puffs every 6 hours as needed only, we have discussed indications foruse If she has changes in her condition she will call and we will reconsider maintenance inhaled therapy Orders: - albuterol HFA (PROVENTIL HFA,VENTOLIN HFA,PROAIR HFA) 90 mcg/actuation inhaler; Inhale 2 puffs every 6 (six) hours as needed for wheezing or shortness of breath Chronic rhinitis Assessment & Plan: Continue fluticasone and Claritin daily May try saline nasal rinses Avoid triggers If symptoms worsen may recommend ENT Cigarette nicotine dependence without complication Assessment & Plan: - Smoking cessation counseling and techniques reviewed at length - Avoid triggers and use distraction techniques - Information given regarding [place] Tobacco Quit line: 7-730-GHGM-YES for free services - 4 minutes spent discussing cessation Che Nair NP documented in this encounter Miscellaneous Notes * Assessment & Plan Note - Che Nair NP - 05/01/2024 2:58 PM CDT Associated Problem(s): Centrilobular emphysema (HCC) She has not been using Bevespi consistently We have we discussed the benefits of maintenance inhaled therapy PFT revealed air trapping and decreased diffusion capacity in 2020 She will continue albuterol 2 puffs every 6 hours as needed only, we have discussed indications foruse If she has changes in her condition she will call and we will reconsider maintenance inhaled therapy * Assessment & Plan Note - Che Nair NP - 05/01/2024 2:56 PM CDT Associated Problem(s): Cigarette nicotine dependence without complication - Smoking cessation counseling and techniques reviewed at length - Avoid triggers and use distraction techniques - Information given regarding [place] Tobacco Quit line: 8-324-GLIB-YES for free services - 4 minutes spent discussing cessation * Assessment & Plan Note - Che Nair NP - 05/01/2024 2:55 PM CDT Associated Problem(s): Chronic rhinitis Continue fluticasone and Claritin daily May try saline nasal rinses Avoid triggers If symptoms worsen may recommend ENT documented in this encounter Plan of Treatment Upcoming Encounters Date Type Department Care Team (Late st Contact Info) Description 02/04/2025 9:30 AM CDT Hospital Encounter [facility] [address] [place] [address] Vic Gaines, DO [address] [address] 02/04/2025 9:30 AM CDT - 02/04/2025 10:00 AM CDT Surgery [facility] [address] [place] [address] Vic Gaines, DO [address] [place] [address] [place] [address] COLONOSCOPY Scheduled Procedures Name Priority Associated Diagnoses Date/Ti me COLONOSCOPY Encounter for screening colonoscopy 02/04/2025 9:30 AM CDT documented as of this encounter Visit Diagnoses Diagnosis Centrilobular emphysema (HCC)- Primary Chronic rhinitis Cigarette nicotine dependence without complication Encounter for screening colonoscopy documented in this encounter Care Teams Telephony Engineer Relationship Specialty Start Date End Date Karson Forbes MD [address] [place] [address] PCP - General Family Medicine 11/23/23 Phoenix Loredo MD Consulting Physician Cardiology 01/04/19 [place] [address] [place] [address] Job Setter Obstetrics and Gynecology 04/19/21 documented as of this encounter
--- OUTSIDE RECORDS SUMMARY | 2024-10-13 04:06 | XMS_ITS | Encounter Summary ---
Author Organization [facility] Healthcare Address [address] [place] [address] Care Team Providers Care Director Perioperative Name Role Phone Phoenix Loredo MD Unavailable [phone] Aylin Lundy MD Unavailable [phone] Harper Myers DO Primary Care Provider [phone] Reason for Referral * MRI/CAT/PET Scan (Routine) - Closed Specialty Diagnoses / Procedures Referred By Contac t Referred To Contact Radiology Diagnoses Nicotine dependence, cigarettes, uncomplicated Cigarette nicotine dependence without complication Centrilobular emphysema (HCC) Procedures CT Lung Cancer Screening Ho Jarrett MD [address] [place] [address] [address] [place] [address] Phone: tel: fax: [address] [phone] Referral ID Status Reason Start Date Expiration Date Visits Re quested Visits Authorized [id number] Closed 11/22/2023 12/21/2024 1 1 EN BARREL MECHANIC Encounter Details Date Type Department Care Team (Late st Contact Info) Description 11/22/2023 Telephone [facility] Pulmonary at [address] [place] [address] Ho Jarrett MD [address] [place] [address] [address] [place] [address] Social History Tobacco Use Types Packs/Day Years [...] on file 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 EN BARREL MECHANIC * Telephone Encounter - Fanny Marin - 11/22/2023 9:01 AM CST Pt called in to reschedule her appointment from 12/26/23 to a April appointment due to going out of town. Pt said she is to get a Ct lung cancer screening done beofre she comes back for appointment butthe Ct order will on 02/19/24. Pt was rescheduled to come in for 6 mo fu on 05/01/24. Can you please put in a new order for Ct scanLung cancer screen? Please advise EN BARREL MECHANIC documented in this encounter Plan of Treatment Upcoming Encounters Date Type Department Care Team (Late st Contact Info) Description 02/04/2025 9:30 AM CDT Hospital Encounter [facility] [address] [place] [address] Vic Gaines, DO [address] [place] [place] [address] 02/04/2025 9:30 AM CDT - 02/04/2025 10:00 AM CDT Surgery [facility] [address] [place] [address] Vic Gaines, DO 3 [facility] [address] [place] [address] [place] [address] COLONOSCOPY Scheduled Procedures Name Priority Associated Diagnoses Date/Ti me COLONOSCOPY Encounter for screening colonoscopy 02/04/2025 9:30 AM CDT documented as of this encounter Results * CT Lung Cancer Screening (04/08/2024 7:19 AM CDT) Anatomical Region Laterality Modality Chest N/A Computed Tomogra phy 04/08/2024 8:31 AM CDT Narrative 04/08/2024 8:39 AM CDT EXAM DESCRIPTION: ?? CT LUNG CANCER SCREENING REASON FOR STUDY: Screening CT of the chest in a ?? current ??smoker with a ??40 ?? pack year smoking history. Additional history: History of COPD, chronic bronchitis, and asthma. ??History of breast cancer with double mastectomy.. TECHNIQUE: Low dose CT scan of the chest was performed without intravenous contrast using helical scanning technique. The exam extends from the lung apices through the lung bases. Automatic exposure control was used as a dose optimization technique. NOTE: This study was performed for the specific purposes of lung cancer screening and is not an alternative to diagnostic chest CT. RADIATION DOSE: CT dose index volume (CTDIvol) = ?? 1.01 ??mGy COMPARISON: ?? 12/12/2022 FINDINGS: SMOKING RELATED LUNG DISEASE: ?? There are mild emphysematous changes of lungs with scattered mild subsegmental atelectasis and scarring. ??There is mild biapical pleural thickening and scarring. ??There is no definite evidence of a pneumothorax. ??There is a small amount of mucous debris noted in the right main bronchus extending into the right lower lobe, which is likely related to mucous secretions. ??There is scattered mild bronchial wall thickening, which is likely related to mild chronic bronchitis/bronchiolitis. ??There is no definite evidence of focal consolidation or pleural effusion. ??There are scattered calcified granulomas noted. LUNG NODULES: ?? There are scattered pulmonary nodules noted, similar to the prior study. ??For example, there is a stable 0.4 cm right upper lobe pulmonary nodule (axial image 30). ??There is a stable 0.4 cm right upper lobe pulmonary nodule (axial image 55). ??There are couple of 0.3 cm pulmonary nodules in the periphery of the right upper lobe, similar to the prior study (axial image 74). ??There is a stable subpleural 0.2 cm right middle lobe pulmonary nodule (axial image 176). ??There is a stable subpleural 0.4 cm right lower lobe pulmonary nodule (axial image 183). ??There is a stable subpleural 0.3 cm left upper lobe pulmonary nodule (axial image 43). ??There is a stable elongated 0.4 cm ground-glass pulmonary nodule in the posterior left upper lobe (axial image 58). ??There is a stable 0.4 cm left upper lobe pulmonary nodule abutting the left major fissure (axial image 125). ??There is a stable subpleural 0.3 cm left lower lobe pulmonary nodule (axial image 153). CORONARY ARTERY CALCIFICATION: ??Present. OTHER: ?? The heart size is stable. ??There is no definite evidence of a pericardial effusion. ??There are atherosclerotic changes of the thoracic aorta and coronary vessels. ??There is dilatation of main pulmonary artery measuring up to 3.7 cm, which is concerning for pulmonary arterial hypertension. There is no definite unenhanced CT evidence of mediastinal or hilar lymphadenopathy. ??There are scattered subcentimeter mediastinal lymph nodes noted with largest measuring 0.6 cm in the subcarinal region (axial image 124). ??Scattered calcified mediastinal and left hilar lymph nodes are noted.. Postsurgical changes of bilateral mastectomies are noted. There is a small hiatal hernia. ??There is stable nonspecific nodular thickening of the bilateral adrenal glands. ??There is a stable right adrenal nodule measuring 2.3 cm demonstrating attenuation characteristics compatible with a benign adrenal adenoma, and therefore no follow-up imaging is recommended. There is mild osteopenia with degenerative changes of the spine. IMPRESSION: Redemonstration of scattered pulmonary nodules measuring [...] Evidence of prior granulomatous disease. Lung-RADS category ??2: Benign appearance or behavior. Recommendation: ??Low dose Screening CT of chest in 12 months. THIS IS AN ELECTRONICALLY VERIFIED FINAL REPORT 04/08/2024 8:39 AM - Electronically signed by ??Joaquina Colmenares D.O. PS: PS D: ??04/08/2024 8:39 AM T: ??04/08/2024 8:39 AM Report ID: [id number] Reading Location: ??[id number] Procedure Note Joaquina Colmenares, DO - 04/08/2024 EXAM DESCRIPTION: CT LUNG CANCER SCREENING REASON FOR STUDY: Screening CT of the chest in a current smoker with a40 pack year smoking history. Additional history: History of COPD, chronic bronchitis, and asthma. History of breast cancer with doublemastectomy.. TECHNIQUE: Low dose CT scan of the chest was performed without intravenous contrast using helical scanning technique. The exam extends from the lung apices through the lung bases. Automatic exposure control was used as adose optimization technique. NOTE: This study was performed for the specific purposes of lung cancer screening and is not an alternative to diagnostic chest CT. RADIATION DOSE: CT dose index volume (CTDIvol) = 1.01 mGy COMPARISON: 12/12/2022 FINDINGS: SMOKING RELATED LUNG DISEASE: There are mild emphysematous changes oflungs with scattered mild subsegmental atelectasis and scarring. There is mild biapical pleural thickening and scarring. There is no definite evidenceof a pneumothorax. There is a small amount of mucous debris noted in the right main bronchus extending into the right lower lobe, which is likely relatedto mucous secretions. There is scattered mild bronchial wall thickening,which is likely related to mild chronic bronchitis/bronchiolitis. There is no definite evidence of focal consolidation or pleural effusion. There are scattered calcified granulomas noted. LUNG NODULES: There are scattered pulmonary nodules noted, similar tothe prior study. For example, there is a stable 0.4 cm right upper lobepulmonary nodule (axial image 30). There is a stable 0.4 cm right upper lobepulmonary nodule (axial image 55). There are couple of 0.3 cm pulmonary nodules inthe periphery of the right upper lobe, similar to the prior study (axial image 74). There is a stable subpleural 0.2 cm right middle lobe pulmonarynodule (axial image 176). There is a stable subpleural 0.4 cm right lower lobe pulmonary nodule (axial image 183). There is a stable subpleural 0.3 cmleft upper lobe pulmonary nodule (axial image 43). There is a stable elongated0.4 cm ground-glass pulmonary nodule in the posterior left upper lobe (axialimage 58). There is a stable 0.4 cm left upper lobe pulmonary nodule abuttingthe left major fissure (axial image 125). There is a stable subpleural 0.3 cm left lower lobe pulmonary nodule (axial image 153). CORONARY ARTERY CALCIFICATION: Present. OTHER: The heart size is stable. There is no definite evidence of a pericardial effusion. There are atherosclerotic changes of the thoracicaorta and coronary vessels. There is dilatation of main pulmonary arterymeasuring up to 3.7 cm, which is concerning for pulmonary arterial hypertension. There is no definite unenhanced CT evidence of mediastinal or hilar lymphadenopathy. There are scattered subcentimeter mediastinal lymphnodes noted with largest measuring 0.6 cm in the subcarinal region (axial image 124). Scattered calcified mediastinal and left hilar lymph nodes arenoted.. Postsurgical changes of bilateral mastectomies are noted. There is a small hiatal hernia. There is stable nonspecific nodular thickening of the bilateral adrenal glands. There is a stable rightadrenal nodule measuring 2.3 cm demonstrating attenuation characteristicscompatible with a benign adrenal adenoma, and therefore no follow-up imaging is recommended. There is mild osteopenia with degenerative changes of the spine. IMPRESSION: Redemonstration of scattered pulmonary nodules measuring up to 0.4 cm, grossly similar to the prior study. No definite evidence of a newsuspicious pulmonary nodule. Mild emphysematous changes of lungs with scattered mild subsegmental atelectasis and scarring. Scattered mild bronchial wall thickening, which is likely related to mild chronic bronchitis/bronchiolitis. Small amount of mucous debris noted in the right main bronchus extendinginto the right lower lobe, which is likely related to mucous secretions. Evidence of prior granulomatous disease. Lung-RADS category 2: Benign appearance or behavior. Recommendation: Low dose Screening CT of chest in 12 months. THIS IS AN ELECTRONICALLY VERIFIED FINAL REPORT 04/08/2024 8:39 AM - Electronically signed by Joaquina Colmenares D.O. PS: PS Report ID: [id number] Reading Location: [place] [address] Ho Jarrett MD IMG CT PROCEDURES Final Result documented in this encounter Visit Diagnoses Diagnosis Nicotine dependence, cigarettes, uncomplicated- Primary Cigarette nicotine dependence without complication Centrilobular emphysema (HCC) Nicotine dependence, cigarettes, uncomplicated Cigarette nicotine dependence without complication Centrilobular emphysema (HCC) Encounter for screening colonoscopy documented in this encounter Care Teams Director Perioperative Relationship Specialty Start Date [place] [address] [place] [address] PCP - General Family Medicine 09/23/21 11/22/23 Phoenix Loredo MD Consulting Physician Cardiology 01/04/19 [place] [address] [place] [address] Small Animal Veterinarian Obstetrics and Gynecology 04/19/21 documented as of this encounter
--- OUTSIDE RECORDS SUMMARY | 2024-10-13 04:06 | XMS_ITS | Encounter Summary ---
Author Organization [facility] Healthcare Address [address] [place] [address] Care Team Providers Care Toe Trimmer Name Role Phone Phoenix Loredo MD Unavailable [phone] Aylin Lundy MD Unavailable [phone] Karson Forbes MD Primary Care Provider [phone] Reason for Referral * MRI/CAT/PET Scan (Routine) - Pending Review Specialty Diagnoses / Procedures Referred By Contac t Referred To Contact Radiology Diagnoses Personal history of nicotine dependence Procedures CT Lung Cancer Screening Che Nair NP Phone: tel: fax: [address] [address] Referral ID Status Reason Start Date Expiration Date V isits Requested Visits Authorized [id number] Pending Review 04/24/2024 05/24/2025 1 1 Encounter Details Date Type Department Care Team (Late st Contact Info) Description 04/24/2024 Orders Only [facility] Medical Group Pulmonary at [address] [place] [address] Che Nair NP [address] [place] [address] [address] [place] [address] Personal history of nicotine dependence Social History Tobacco Use Types Packs/Day Years [...] on file 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 Gender Identity Not on file Sexual Orientation Not on file documented as of this encounter Plan of Treatment Upcoming Encounters Date Type Department Care Team (Late st Contact Info) Description 02/04/2025 9:30 AM CDT Hospital Encounter [address] [address] Vic Gaines DO [address] [address] 02/04/2025 9:30 AM CDT - 02/04/2025 10:00 AM CDT Surgery [address] [address] Vic Gaines, 3 [facility] [address] [place] [address] COLONOSCOPY Scheduled Orders Name Type Priority Associated Diagnoses Orde r Schedule CT Lung Cancer Screening Imaging Schedule Routine, Read Routine (OP Routine) Personal history of nicotine dependence Expected: 04/09/2025, Expires: 06/25/2025 Scheduled Procedures Name Priority Associated Diagnoses Date/Ti me COLONOSCOPY Encounter for screening colonoscopy 02/04/2025 9:30 AM CDT documented as of this encounter Visit Diagnoses Diagnosis Personal history of nicotine dependence Encounter for screening colonoscopy documented in this encounter Care Teams Toe Trimmer Relationship Specialty Start Date End Date Karson Forbes MD [address] [place] [address] PCP - General Family Medicine 11/23/23 Phoenix Loredo MD Consulting Physician Cardiology 01/04/19 [place] [address] [place] [address] Cut And Print Machine Operator Obstetrics and Gynecology 04/19/21 documented as of this encounter
--- OUTSIDE RECORDS SUMMARY | 2024-10-13 04:06 | XMS_ITS | Encounter Summary ---
Author Organization [facility] Medical Group Address [address] [facility] [address] [place] [address] Care Team Providers Care First Crusher Name Role Phone Phoenix Loredo MD Unavailable [phone] Aylin Lundy MD Unavailable Harper Myers DO Primary Care Provider [phone] Reason for Visit * Reason Comments Follow-up February 07 fever, February 08 went to clinic due to elevated HR and Fever. Pneumonia. February 15 saw PCP and put her on prednisone. February 19 in ER due to SOB. ER put her on LEvoflaxin Encounter Details Date Type Department Care Team (Late st Contact Info) Description 02/28/2023 9:00 AM CDT Office Visit [facility] Medical Group Pulmonary at [address] [place] [address] Ho Jarrett MD [address] [place] [address] [address] [place] [address] Centrilobular emphysema (HCC) (Primary Dx); Nicotine dependence, cigarettes, uncomplicated; Chronic rhinitis; Tachyarrhythmia Social History Tobacco Use Types Packs/Day Years [...] points, staff should administer the PHQ-9) 0 06/20/2022 Personal Safety Answer Date Recorded Have you ever been in or are you currently in a harmful physical or emotional relationship or is someone making you feel afraid or unsafe? 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 Gender Identity Not on file Sexual Orientation Not on file documented as of this encounter Last Filed Vital Signs Vital Sign Reading Time Taken Comments Blood Pressure 121/61 02/28/2023 9:05 AM CDT Pulse 61 02/28/2023 9:05 AM CDT Temperature 36.5 ??C (97.7 ??F) 02/28/2023 9:05 AM CD T Respiratory Rate 18 02/28/2023 9:05 AM CDT Oxygen Saturation 96% 02/28/2023 9:05 AM CDT Inhaled Oxygen Concentration - - Weight 67.8 kg (149 lb 6.4 oz) 02/28/2023 9:05 A M CDT Height 152.4 cm (5') 02/28/2023 9:05 AM CDT Body Mass Index 29.18 02/28/2023 9:05 AM CDT documented in this encounter Ordered Prescriptions Prescription Sig Dispense Quantity Refills Last Filled Start Date End Date glycopyrrolate-for moteroL (Bevespi Aerosphere) 9-4.8 mcg inhaler Inhale 2 puffs 2 (two) times a day 32.1 g 3 02/28/2023 05/14/2024 glycopyrrolate-for moteroL (Bevespi Aerosphere) 9-4.8 mcg inhaler Inhale 2 puffs 2 (two) times a day 32.1 g 11 02/28/2023 02/28/2023 documented in this encounter Progress Notes * Ho Jarrett MD - 02/28/2023 9:00 AM CDT Images from the original note were not included. PULMONARY CLINIC NOTE Visit Date: 02/28/2023 Chief Complaint: Presents today for Shortness of breath HPI: Mirtha Cherry is a 57 y.o. female w/ PMH of bilateral mastectomy in 2018 for abnormal mammogram/MRIand found to have precancerous lesions (no radiation), peripheral arterial disease status post stenting, esophageal stricture who presents on 02/28/2023 for evaluation of dyspnea on exertion. The patient was first seen in July of 2021. At that time she reports she was diagnosed with asthma 20 years ago. She had not been on any regular inhaler therapy. She has had relatively stable dyspnea but reports it may be increased over the past several years. She underwent pulmonary function testing which was indicative of air trapping and impaired diffusion. She was ultimately started on Bevespi Interval History: The patient reports she had been doing well with Bevespi but developed an increased cough and underwent chest x-ray with reported community- acquired pneumonia treated with cefdinir.She reports her symptoms had improved and her CXR had cleared. She then developed symptoms of severe sinus pressure and nasal congestion and was placed on prednisone for possible sinusitis. She laterdeveloped increased dyspnea. She had stopped her bevespi and was only taking nebulizer treatments 4-6 times per day. She also reports her HR was increased up to 120s. She reports very irregular heartrate on home monitoring and variable oxygen saturations. Two days later her HR dropped to the 50s and she felt like she had never been sick. Sinus pressure had improved and she reports that her ear popped and had fluid drain out of her ear. She has cut back to less than 5 cigarettes per day This has been a problem in the past. 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 HX OTHER MEDICAL 2009 capal tunnel release [...] Family History Problem Relation Age of Onset Hypertension Father Hypertension; Throat cancer Father Cancer -throat; Cause of : Cancer -throat Other Brother Alive and well; Other Brother Alive and well; Other Sister Alive and well; Other Brother Alive and well; Depression Mother Depression; Diabetes type I Mother Diabetes -Type 1; Other Mother cataracts; Brain cancer Mother's Sister brain cancer; Lymphoma Mother's Sister Lymphoma; Other Mother's Sister renal cell cancer; Diabetes Other Family history of Diabetes mellitus; Social History: Works from home. Smoke 1ppd 40 years. Trying to cut back Review of Systems: Pertinent positives notes in HPI. Otherwise a 10 pt review of systems is negative. OBJECTIVE: Physical Exam: Vitals: 02/28/23 0905 BP: 121/61 Pulse: 61 Resp: 18 Temp: 36.5 ??C (97.7 ??F) SpO2: 96% Weight: 67.8 kg (149 lb 6.4 oz) Height: 152.4 cm (5') General: appears comfortable in no apparent distress Eyes: anicteric, no redness or drainage, EOMI Neck: no thyromegaly or lymphadenopathy Cardiovascular: regular rate and rhythm, no murmurs, no edema or JVD Respiratory: Clear to auscultation, non labored Gastrointestinal: abdomen is soft and non-tender, + bowel sounds Musculoskeletal: no joint swelling or tenderness Neurologic: No focal deficits Skin: warm and dry, redness around the nasal labial fold and upper lip, no crust today Data Review: Follow-up low-dose CT scan 12/12/2022: [...] predicted, DLCO 51% predicted ASSESSMENT AND PLAN 1. Centrilobular emphysema (CMS/HCC) (HCC) - the patient has air trapping and diffusion impairment, suggestive of COPD/emphysema - continue Bevespi twice daily - it is unclear if her most recent episode really represents an exacerbation of COPD or simply a pneumonia and or sinusitis, unclear contribution of a possible arrhythmia - I emphasized the importance of maintenance therapy and use of albuterol only as needed 2. Cigarette nicotine dependence without complication - she continues to smoke but is cutting back, cessation was discussed for greater than 4 minutes - she will continue using nicotine lozenges 3. Chronic rhinitis - continue trial of Flonase and Claritin - may recommend ENT follow-up 4. Tachyarrhythmia - the patient reports intermittent fast heart rate at home prior to this episode - is certainly possible that she has paroxysmal atrial fibrillation and that this is contributing to her symptoms - it is likely that her overuse of short-acting bronchodilators and her acute infection exacerbatedthis - I would consider outpatient monitoring to assess her AFib burden but will defer this to her citrus picker Ho Jarrett MD There may be syntax/grammatical errors in this note due to the use of voice recognition software. documented in this encounter Plan of Treatment Upcoming Encounters Date Type Department Care Team (Late st Contact Info) Description 02/04/2025 9:30 AM CDT Hospital Encounter [address] [address] Vic Gaines, DO 3 [facility] [address] [place] [address] 02/04/2025 9:30 AM CDT - 02/04/2025 10:00 AM CDT Surgery [facility] 1 [place] [address] Vic Gaines, DO [address] [address] COLONOSCOPY Scheduled Procedures Name Priority Associated Diagnoses Date/Ti me COLONOSCOPY Encounter for screening colonoscopy 02/04/2025 9:30 AM CDT documented as of this encounter Visit Diagnoses Diagnosis Centrilobular emphysema (HCC)- Primary Nicotine dependence, cigarettes, uncomplicated Chronic rhinitis Tachyarrhythmia Unspecified tachycardia Encounter for screening colonoscopy documented in this encounter Discontinued Medications Medication Sig Discontinue Reason Start Date End Da te glycopyrrolate-formotero L (Bevespi Aerosphere) 9-4.8 mcg inhaler Inhale 2 puffs 2 (two) times a day Reorder 12/19/2022 02/28/2023 glycopyrrolate-formotero L (Bevespi Aerosphere) 9-4.8 mcg inhaler Inhale 2 puffs 2 (two) times a day 02/28/2023 02/28/2023 documented as of this encounter Care Teams First Crusher Relationship Specialty [place] [address] [place] [address] PCP - General Family Medicine 09/23/21 11/22/23 Phoenix Loredo MD Consulting Physician Cardiology 01/04/19 [place] [address] [place] [address] Game Show Host Obstetrics and Gynecology 04/19/21 documented as of this encounter
--- OUTSIDE RECORDS SUMMARY | 2024-10-13 04:06 | XMS_ITS | Encounter Summary ---
Author Organization [facility] Medical Group Address [address] [facility] [address] [place] [address] Care Team Providers Care Makeup Artist Name Role Phone Phoenix Loredo MD Unavailable [phone] Aylin Lundy MD Unavailable [phone] Harper Myers DO Primary Care Provider [phone] Reason for Visit * Reason Onset Date Comments Call Back 06/23/2023 Encounter Details Date Type Department Care Team (Late st Contact Info) Description 06/23/2023 Telephone [facility] Medical Group Primary Care at [address] [place] [address] Harper Myers DO [address] [address] Call Back Social History Tobacco Use Types Packs/Day Years [...] on file 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 informed * Telephone Encounter - Antonette Leary MA - 06/23/2023 4:15 PM CDT Routing to provider * Telephone Encounter - Jessica Rosales - 06/23/2023 4:06 PM CDT Pt aware of lab results. She's asking why is her WBC still elevated. She'd like to know what is causing this and can this beinvestigated a bit more? Please call the pt on Monday. She is aware that Dr. Myers is out this afternoon. * Telephone Encounter - Yaakov Kramer - 06/23/2023 4:04 PM CDT Call Back Caller???s Concern: Patient returned call AC warm transferred to backline Caller???s Call back #: [phone] Does message need to be routed? No * Telephone Encounter - Alma Rosa Shelton MA - 06/23/2023 3:45 PM CDT [id number] * Telephone Encounter - Alma Rosa Shelton MA - 06/23/2023 3:44 PM CDT ----- Message from Harper Myers DO sent at 06/21/2023 10:15 PM CDT ----- Mirtha Dilip , your A1c is in the pre-diabetic range, please try to make life- style modifications such as, a low carbohydrate diet, daily exercise and weight reduction. I will continue to monitor this lab from time to time. Your potassium and WBCs are slightly outside of normal range, I will continue to follow these. All other labs are stable or are within normal limits. Harper Myers DO documented in this encounter Plan of Treatment Upcoming Encounters Date Type Department Care Team (Late st Contact Info) Description 02/04/2025 9:30 AM CDT Hospital Encounter [address] [address] Vic Gaines DO [address] [address] 02/04/2025 9:30 AM CDT - 02/04/2025 10:00 AM CDT Surgery [address] [address] Vic Gaines DO [address] [address] COLONOSCOPY Scheduled Procedures Name Priority Associated Diagnoses Date/Ti me COLONOSCOPY Encounter for screening colonoscopy 02/04/2025 9:30 AM CDT documented as of this encounter Visit Diagnoses Not on filedocumented in this encounter Care Teams Makeup Artist Relationship Specialty Start [place] [address] [place] [address] PCP - General Family Medicine 09/23/21 11/22/23 Phoenix Loredo MD Consulting Physician Cardiology 01/04/19 [place] [address] [place] [address] Cell Installer Obstetrics and Gynecology 04/19/21 documented as of this encounter
--- OUTSIDE RECORDS SUMMARY | 2024-10-13 04:06 | XMS_ITS | Encounter Summary ---
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 documented in this encounter Plan of Treatment Upcoming Encounters Date Type Department Care Team (Late st Contact Info) Description 02/04/2025 9:30 AM CDT Hospital Encounter [address] [address] Vic Gaines, DO [address] [address] 02/04/2025 9:30 AM CDT - 02/04/2025 10:00 AM CDT Surgery [address] [address] Vic Gaines, DO 3 [facility] [address] [place] [address] COLONOSCOPY Scheduled Procedures Name Priority Associated Diagnoses Date/Ti me COLONOSCOPY Encounter for screening colonoscopy 02/04/2025 9:30 AM CDT documented as of this encounter Visit Diagnoses Not on filedocumented in this encounter Care Teams Channel Installer Relationship Specialty Start Date End Date Karson Forbes MD [address] [place] [address] PCP - General Family Medicine 11/23/23 Phoenix Loredo MD Consulting Physician Cardiology 01/04/19 [place] [address] [place] [address] Rn Orthopaedic Obstetrics and Gynecology 04/19/21 documented as of this encounter
--- OUTSIDE RECORDS SUMMARY | 2024-10-13 04:06 | XMS_ITS | Encounter Summary ---
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 Do not exceed 2 doses in 24 hours. 9 tablet 3 3 albuterol 2.5 mg /3 mL (0.083 %) nebulizer solution Take 3 mL (2.5 mg total) by nebulization every 6 (six) hours as needed for wheezing 90 mL 2 3 05/14/20 24 albuterol HFA (PROVENTIL HFA,VENTOLIN HFA,PROAIR HFA) 90 mcg/actuation inhaler Inhale 2 puffs every 6 (six) hours as needed for wheezing 1 each 2 2 05/14/20 24 aspirin 81 mg enteric coated tablet Take 1 tablet (81 mg total) by mouth daily 90 tablet 3 3 05/14/20 24 atorvastatin (LIPITOR) 40 mg tablet TAKE 1 TABLET(40 MG) BY MOUTH DAILY 90 tablet 3 4 05/14/20 24 clopidogreL (PLAVIX) 75 mg tablet TAKE 1 TABLET(75 MG) BY MOUTH DAILY 90 tablet 3 3 05/14/20 24 coenzyme Q10 (CO Q-10) 200 mg capsule Take 1 capsule by oral route every day 0 0 7 05/14/20 24 fluticasone propionate (FLONASE) 50 mcg/actuation nasal spray Administer 1 spray into each nostril daily 16 g 11 3 05/14/20 24 glycopyrrolate-form oteroL (Bevespi Aerosphere) 9-4.8 mcg inhaler Inhale 2 puffs 2 (two) times a day 32.1 g 3 3 05/14/20 24 Lactobacillus acidophilus (PROBIOTIC) 10 billion cell capsule Take 1 capsule by oral route every day 0 0 7 05/14/20 24 loratadine (CLARITIN) 10 mg tablet Take 1 tablet (10 mg total) by mouth daily 05/14/20 24 metoprolol XL (TOPROL-XL) 50 mg extended release tabletIndications:M ixed hyperlipidemia,Mult iple-type hyperlipidemia TAKE 1 TABLET(50 MG) BY MOUTH DAILY 90 tablet 3 4 05/14/20 24 multivitamin capsule Take 1 capsule by mouth daily 05/14/20 24 documented as of this encounter Discharge Disposition Disposition Code Departure Means Destination Discharge to home or self care documented in this encounter Plan of Treatment Upcoming Encounters Date Type Department Care Team (Late st Contact Info) Description 02/04/2025 9:30 AM CDT Hospital Encounter [address] [address] Vic Gaines, DO 3 [facility] [place] [address] [place] [address] 02/04/2025 9:30 AM CDT - 02/04/2025 10:00 AM CDT Surgery [address] [address] Vic Gaines, DO 3 [facility] [place] [address] [place] [address] COLONOSCOPY Scheduled Procedures Name Priority Associated Diagnoses Date/Ti me COLONOSCOPY Encounter for screening colonoscopy 02/04/2025 9:30 AM CDT documented as of this encounter Procedures Procedure Name Priority Date/Time Associated Diagnosis Comments CT BODY OUTSIDE REFERENCE Routine 03/11/2024 12:00 AM CDT documented in this encounter Results * CT Body Outside Reference (03/11/2024 12:00 AM CDT) Narrative [facility]OUTSIDE[facility] - 06/14/2024 2:42 PM CDT This order has been auto-finalized and does not contain a result. us Provider Transcribed Order IMG CT PROCEDURES Fin al Result [facility] documented in this encounter Visit Diagnoses Not on filedocumented in this encounter Care Teams Ship/Rec/Doc Control Relationship Specialty Start Date End Date Karson Forbes MD [address] [place] [address] PCP - General Family Medicine 11/23/23 Phoenix Loredo MD Consulting Physician Cardiology 01/04/19 [place] [address] [place] [address] Clay Machine Operator Obstetrics and Gynecology 04/19/21 documented as of this encounter
--- OUTSIDE RECORDS SUMMARY | 2024-10-13 04:06 | XMS_ITS | Encounter Summary ---
Author Organization [facility] Address [address] [place] [place] [address] Care Team Providers Care Drop Worker Name Role Phone Phoenix Loredo MD Unavailable [phone] Aylin Lundy MD Unavailable [phone] Harper Myers DO Primary Care Provider [phone] Reason for Referral * Diagnostic Lab (Routine) - Closed Specialty Diagnoses / Procedures Referred By Denton pickard Referred To Contact Lab Diagnoses Encounter for well woman exam Procedures ThinPrep(R) Imaging Pap and HPV mRNA E6/E7 Reflex HPV 16,18/45 Aylin Lundy MD [address] [place] [address] Phone: tel: fax: Referral ID Status Reason Start Date Expiration Date Visits Re quested Visits Authorized [id number] Closed 03/31/2023 04/29/2024 1 1 Reason for Visit * Reason Comments Annual Exam Encounter Details Date Type Department Care Team (Late st Contact Info) Description 03/31/2023 10:00 AM CDT Office Visit [facility] [address] [place] [address] Aylin Lundy MD [address] [place] [address] Encounter for well woman exam (Primary Dx) Social History Tobacco Use Types Packs/Day Years [...] on file 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 year old female who presents for a well woman visit. Mirtha's last office visit in our practice was Jan 21 for routine visit. Mirtha does not receive systemic hormone replacement therapy. Mirtha's medical history is complicated by breast cancer right LCIS , she had bilateral mastectomy without reconstruction May, no genetic testing, she did not require chemo or RT. Mirtha has a maternal aunt that had ovarian cancer, Mirtha's mother is living age 81 no cancer, there is one other maternal aunt living with no cancer. Mirtha is a tobacco user. Mirtha is , last intercourse ten years or more. Mirtha has two adult children. Menstrual status: menopausal and denies postmenopausal bleeding Pelvic pain: denies Pt states she is scheduled to see PCP Dr Myers in June for routine screening. Mirtha states she had colonoscopy at age 49 and was cleared until age 59. No recent bone density, she wants to discuss with Dr Myers at her upcoming visit. I have reviewed medical history, surgical history, family history, and social history. Review of systems otherwise negative. Brst exam status post mastectomy bilaterally, no reconstruction; axilla negative times two; abd soft, nontender. Pelvic exam normal vulva, moderate atrophy, normal appearing cvx, pap collected; bimanual exam no uterine or adnexal masses, nontender exam. RTO one year/sooner prn. Aylin Lundy MD documented in this encounter Plan of Treatment Upcoming Encounters Date Type Department Care Team (Late st Contact Info) Description 02/04/2025 9:30 AM CDT Hospital Encounter [facility] [address] [address] Vic Gaines, DO [address] [address] 02/04/2025 9:30 AM CDT - 02/04/2025 10:00 AM CDT Surgery [address] [address] Vic Gaines, DO 3 [facility] [address] [place] [address] COLONOSCOPY Scheduled Procedures Name Priority Associated Diagnoses Date/Ti me COLONOSCOPY Encounter for screening colonoscopy 02/04/2025 9:30 AM CDT documented as of this encounter Procedures Procedure Name Priority Date/Time Associated Diagnosis Comments THINPREP IMAGING PAP AND HPV MRNA E6/E7 REFLEX HPV 16,18/45 Routine 03/31/2023 10:40 AM CDT Encounter for well woman exam documented in this encounter Results * ThinPrep(R) Imaging Pap and HPV mRNA E6/E7 Reflex HPV 16,18/45 (03/31/2023 10:40 AM CDT) CLINICAL INFORMATION: [facility][1] Comment:None given LMP [facility][1] Comment:NONE GIVEN Previous Pap [facility][1] Comment:NONE GIVEN Prev. Bx [facility][1] Comment:NONE GIVEN SOURCE: [facility][1] Comment:Cervix Pap, specimen adequacy [facility][1] Comment: Satisfactory for evaluation. Endocervical/transformation zone component present. Age and/or menstrual status not provided HPV interp [facility][1] Comment:Negative for intraep ithelial lesion or malignancy. COMMENTS [facility][1] Comment: This Pap test has been evaluated with computer assisted technology. Survey Operations Director [facility] Comment: PCM, CT(ASCP) CT Screening Location: [place] [address] [place] [address] Comment [facility][1] Comment: EXPLANATORY NOTE: The Pap is a [...] High Risk E6/E7 Not Detected Not Detected [facility] [employer] Julianne Comment: Methodology: Journeyman Pressman-Mediated Amplification This assay detects E6/E7 viral messenger RNA (mRNA) from 14 high-risk HPV types (16,18,31,33,35,39,45,51,52,56,58,59,66,68). Cervical sources are required for HPV testing. If a vaginal source from a patient who has had a total hysterectomy with removal of cervix was submitted, please contact the testing laboratory for alternative testing options. For additional information, please refer to http://education.[employer]/faq/UTM870f4 (This link if provided for information/ educational purposes only.) Swab 03/31/2023 10:4 0 AM CDT 04/01/2023 12:35 AM CDT Aylin Lundy MD LAB CYTOLOGY ORDERABLES Fin al Result [facility] [address] [place] [address] [facility] [address] [place] [address] documented in this encounter Visit Diagnoses Diagnosis Encounter for well woman exam- Primary Encounter for screening colonoscopy documented in this encounter Care Teams Drop Worker Relationship Specialty [place] [address] [place] [address] PCP - General Family Medicine 09/23/21 11/22/23 Phoenix Loredo MD Consulting Physician Cardiology 01/04/19 [place] [address] [place] [address] Wrapper Sorter Obstetrics and Gynecology 04/19/21 documented as of this encounter
--- OUTSIDE RECORDS SUMMARY | 2024-10-13 04:06 | XMS_ITS | Encounter Summary ---
Author Organization [facility] Address [address] [place] [address] Care Team Providers Care Divisional Human Resources Director Name Role Phone Phoenix Loredo MD Unavailable [phone] Aylin Lundy MD Unavailable [phone] Harper Myers DO Primary Care Provider [phone] Encounter Details Date Type Department Care Team (Late st Contact Info) Description 02/28/2023 Orders Only [place] Change Analyst at [address] [place] [address] Phoenix Loredo MD [address] [place] [address] [address] [place] [address] Shortness of breath (Primary Dx) Social History Tobacco Use Types [...] on file 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 Gender Identity Not on file Sexual Orientation Not on file documented as of this encounter Plan of Treatment Upcoming Encounters Date Type Department Care Team (Late st Contact Info) Description 02/04/2025 9:30 AM CDT Hospital Encounter [address] [address] Vic Gaines, DO [address] [place] [place] [address] 02/04/2025 9:30 AM CDT - 02/04/2025 10:00 AM CDT Surgery [address] [address] Vic Gaines, DO [address] [place] [place] [address] COLONOSCOPY Scheduled Procedures Name Priority Associated Diagnoses Date/Ti me COLONOSCOPY Encounter for screening colonoscopy 02/04/2025 9:30 AM CDT documented as of this encounter Results * Pro B-type natriuretic peptide (02/28/2023 10:05 AM CDT) NT-proBNP 172 <=300 pg/mL JAY IZQUIERDO ([place]) Comment: Interpretive Comments: A. Dyspnea in Acute [...] Heart J. 2006:27:330-337. 2. Sepideh RW, Faisal AM. J. AM Gabo Cardiol: Cardiovasc Imag. 2009;2: 216- 225. Interpretive Data Last Revised Date: 2018. Blood 02/28/2023 10:0 5 AM CDT 02/28/2023 10:36 AM CDT us Phoenix Loredo MD LAB BLOOD ORDERABLES Final Resu lt [facility] ([place]) [address] [facility] Department of [employer] [place], [place] [id number] documented in this encounter Visit Diagnoses Diagnosis Shortness of breath- Primary Encounter for screening colonoscopy documented in this encounter Care Teams Divisional Human Resources Director Relationship Specialty [place] [address] [place] [address] PCP - General Family Medicine 09/23/21 11/22/23 Phoenix Loredo MD Consulting Physician Cardiology 01/04/19 [place] [address] [place] [address] Psychologist Personnel Obstetrics and Gynecology 04/19/21 documented as of this encounter
--- OUTSIDE RECORDS SUMMARY | 2024-10-13 04:06 | XMS_ITS | Encounter Summary ---
Author Organization [facility] Address [address] [place] [address] Care Team Providers Care Worker'S Compensation Claims Examiner Name Role Phone Phoenix Loredo MD Unavailable [phone] Aylin Lundy MD Unavailable [phone] Harper Myers DO Primary Care Provider [phone] Reason for Referral * Diagnostic Imaging (Routine) - Closed Specialty Diagnoses / Procedures Referred By Contac t Referred To Contact Diagnoses Atherosclerosis of [place] arteries of extremities with intermittent claudication, bilateral legs (HCC) Procedures US ABE Mariann Be NP [address] [place] [address] [address] [place] [address] Phone: tel: fax: [address] [address] Referral ID Status Reason Start Date Expiration Date Visits Re quested Visits Authorized [id number] Closed 07/10/2023 08/08/2024 1 1 Reason for Visit * Reason Comments Peripheral Artery Disease Encounter Details Date Type Department Care Team (Late st Contact Info) Description 07/10/2023 9:45 AM CDT Office Visit [place] at [address] [place] [address] Mariann Be NP [address] [place] [address] [address] [place] [address] Mixed hyperlipidemia (Primary Dx); Bilateral carotid artery stenosis; Atherosclerosis of [place] arteries of extremities with intermittent claudication, bilateral legs (HCC); Palpitations; TROY (obstructive sleep apnea) Social History Tobacco Use Types Packs/Day Years [...] on file 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 Gender Identity Not on file Sexual Orientation Not on file documented as of this encounter Last Filed Vital Signs Vital Sign Reading Time Taken Comments Blood Pressure 120/74 07/10/2023 9:48 AM CDT Pulse 77 07/10/2023 9:48 AM CDT Temperature - - Respiratory Rate 18 07/10/2023 9:48 AM CDT Oxygen Saturation - - Inhaled Oxygen Concentration - - Weight 67.1 kg (148 lb) 07/10/2023 9:48 AM CDT Height 152.4 cm (5') 07/10/2023 9:48 AM CDT Body Mass Index 28.9 07/10/2023 9:48 AM CDT documented in this encounter Progress Notes * Mariann Be NP - 07/10/2023 9:45 AM CDT Cardiology note Reason for Office Visit: PAD History of Present Illness: Moshe Hartley is a 58 y.o. female who presents to the office for a follow up visit for PAD, s/p stent placement, tobacco abuse and dyslipidemia. In 2004, patient had two bare metal stents placd in bilateral common iliac arteries. They were restented with ICAST ( 7 X 38 mm, post dilated using 8 mm balloon) covered stents in 2007 at [facility]. Patient had balloon angioplasty done for repeat stenosis in 2014. Patient was going to undergo bunion surgery and refered by chest painting leader for weak pedal pulses. US doppler showed [...] much better- no leg pain. ABE improved. Patient denies chest pain, SOB, palpitations. Patient still smoking. Walking 1/2- 1 mile. Not limited in ambulation. No open sores. Patient weight is stable. ABE in June 2023 is normal BLE, mild carotid stenosis. Can walk unlimited. No open sores. No chest pain or shortness of breath. Weight: 148 lbs Review of Systems: Review of Systems Constitutional: Negative for decreased appetite, malaise/fatigue, weight gain and weight loss. HENT: Negative for ear discharge, hearing loss [...] Negative for bloating, heartburn and nausea. Genitourinary: Negative for hematuria. Neurological: Negative for excessive daytime sleepiness, dizziness, headaches, light-headedness, loss of balance and tremors. Psychiatric/Behavioral: Negative for altered mental status, depression and memory loss. 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 Vital Signs: Vitals BP 120/74 (BP Location: Right arm, Patient Position: Sitting) Pulse 77 Resp 18 Ht 152.4 cm (5') Wt 67.1 kg (148 lb) LMP (LMP Unknown) BMI 28.90 kg/m?? Vitals: 07/10/23 0948 BP: 120/74 Pulse: 77 Resp: 18 Wt Readings from Last 3 Encounters: 07/10/23 67.1 kg (148 lb) 06/21/23 67.6 kg (149 lb 1.6 oz) 03/31/23 68.6 kg (151 lb 3.2 oz) Body mass index is 28.9 kg/m??. Physical Exam: Physical Exam Constitutional: General: [...] person, place, and time. Pulse exam ; DP and PT present by doppler bilaterally Labs: Lab Results Component Value Date INR [...] the ankle. EK12/2015 SR possible old anterior NV 07/2016 SR , possible old anterior NV AIF 05/2021 IMPRESSION 1. Patent previously-implanted covered [...] ABE 1.04, with biphasic wave form. ABE 3/14/23 1. There is mild arterial disease in [...] stenosis of the extracranial carotid arteries bilaterally. EKG 07/12/2021 showed sinus rhythm with PVCs. Assessment: #1 PAD, Bilateral ICAST stents at [...] 2021 were normal. ABE in June 2023 is normal #2 Hyperlidemia- followed by PCP, LDL above target #3 Tobacco abuse, ongoing trying to quit #4 Carotid stenosis, mild by duplex 07/2021 #5 Frequent PVCs, 11% burden by a monitor in August 2021. Normal echo. Negative nuclear stress test in September 2021 although borderline by EKG criteria Plan: Continue same medication regimen. She can walk unlimited and has no open sores. Continue tight control of blood pressure and cholesterol. Continue diet, exercise, and weight reduction. RTC 6 mo with ABE BNV Diagnoses and all orders for this visit: Mixed hyperlipidemia (Primary) Bilateral carotid artery stenosis Atherosclerosis of [place] arteries of extremities with intermittent claudication, bilateral legs (HCC) Palpitations TROY (obstructive sleep apnea) No follow-ups on file. 07/10/2023 @ 10:02 AM Mariann Be NP Cc:Harper Myers DO documented in this encounter Miscellaneous Notes * Addendum Note - Paige Hernadez MA - 07/10/2023 9:45 AM CDTAddended by: APIGE HERNADEZ on: 07/10/2023 10:09 AM Modules accepted: Orders documented in this encounter Plan of Treatment Upcoming Encounters Date Type Department Care Team (Late st Contact Info) Description 02/04/2025 9:30 AM CDT Hospital Encounter [address] [address] Vic Gaines, DO 3 [facility] [place] [address] [place] [address] 02/04/2025 9:30 AM CDT - 02/04/2025 10:00 AM CDT Surgery [address] [address] Vic Gaines, DO 3 [facility] [place] [place] [address] COLONOSCOPY Scheduled Procedures Name Priority Associated Diagnoses Date/Ti me COLONOSCOPY Encounter for screening colonoscopy 02/04/2025 9:30 AM CDT documented as of this encounter Results * US ABE (04/08/2024 7:43 AM CDT) Anatomical Region Laterality Modality Vascular N/A Ultrasound 04/08/2024 7:17 AM CDT Narrative 04/08/2024 8:10 AM CDT [address] [address] Ankle Brachial Index Report Patient Name: MOSHE HARTLEY ?? : 1965 (58y 11m) ??Gender: F Study Date: 04-08-2024 07:17:00 AM Prep Cook: Lavon Provider: MARIANN BE Quality: Adequate Ref Provider: MARIANN BE ?? PROCEDURES: Arterial Report: A bilateral extremities ankle/brachial index was performed. ?? INDICATIONS: Peripheral Vascular Disease. ?? CONCLUSIONS: 1. No arterial insufficiency at rest in the right lower extremity with ankle- brachial index 0.95. 2. No arterial insufficiency at rest in the left lower extremity ankle-brachial index 1.05. 3. Biphasic to triphasic waveform at the ankle bilaterally. ?? FINDINGS: Electronically Signed By: Phoenix Loredo MD 2024-04-08 08:09:33 CDT Procedure Note Phoenix Loredo MD - 04/08/[address] [address] Ankle Brachial Index Report Patient Name: MOSHE HARTLEY : 1965 (58y 11m) Gender: F Study Date: 04-08-2024 07:17:00 AM Prep Cook: Lavon Provider: MARIANN BE Quality: Adequate Ref Provider: MARIANN BE PROCEDURES: Arterial Report: A bilateral extremities ankle/brachial index wasperformed. INDICATIONS: Peripheral Vascular Disease. CONCLUSIONS: 1. No arterial insufficiency at rest in the right lower extremity withankle- brachial index 0.95. 2. No arterial insufficiency at rest in the left lower extremityankle-brachial index 1.05. 3. Biphasic to triphasic waveform at the ankle bilaterally. FINDINGS: Electronically Signed By: Phoenix Loredo MD 2024-04-08 08:09:33 CDT Result [facility] Mariann Be NP [facility] PROCEDURES Final Result documented in this encounter Visit Diagnoses Diagnosis Mixed hyperlipidemia- Primary Bilateral carotid artery stenosis Occlusion and stenosis of carotid artery without mention of cerebral infarction Atherosclerosis of [place] arteries of extremities with intermittent claudication, bilateral legs (HCC) Palpitations TROY (obstructive sleep apnea) Obstructive sleep apnea (adult) (pediatric) Atherosclerosis of [place] arteries of extremities with intermittent claudication, bilateral legs (HCC) Encounter for screening colonoscopy documented in this encounter Care Teams Worker'S Compensation Claims Examiner Relationship Specialty [place] [address] [place] [address] PCP - General Family Medicine 09/23/21 11/22/23 Phoenix Loredo MD Consulting Physician Cardiology 01/04/19 [place] [address] [place] [address] Regional Company Truck Driver Obstetrics and Gynecology 04/19/21 documented as of this encounter
--- OUTSIDE RECORDS SUMMARY | 2024-10-13 04:06 | XMS_ITS | Encounter Summary ---
Author Organization [facility] Medical [facility] Address [address] [place] [address] Care Team Providers Care Drafter Detail Name Role Phone Phoenix Loredo MD Unavailable [phone] Aylin Lundy MD Unavailable Harper Myers DO Primary Care Provider [phone] Encounter Details Date Type Department Care Team (Late st Contact Info) Description 02/27/2023 Telephone [facility] Program Coordinator Executive Education at [address] [place] [address] Chauncey Hernandez MA Social History Tobacco Use Types Packs/Day [...] on file 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 She went to the ER on 02/19 and see's pulmonology tomorrow. She feels it is a heart issue not a COPD issue and is asking for f/u. States the lower the o2 drops the more erratic the heart feels. She was on steroids and states this started the next day after star ting the 40mg every day. Then she stopped them and then was told to restart at 20mg. Since the lower dose she states the feeling went away. Hr in the 50's. Please review chart and advise. documented in this encounter Plan of Treatment Upcoming Encounters Date Type Department Care Team (Late st Contact Info) Description 02/04/2025 9:30 AM CDT Hospital Encounter [address] [address] Vic Gaines, DO [address] [place] [place], [place] [address] 02/04/2025 9:30 AM CDT - 02/04/2025 10:00 AM CDT Surgery [address] [address] Vic Gaines, DO [address] [place] [place] [address] COLONOSCOPY Scheduled Procedures Name Priority Associated Diagnoses Date/Ti me COLONOSCOPY Encounter for screening colonoscopy 02/04/2025 9:30 AM CDT documented as of this encounter Visit Diagnoses Not on filedocumented in this encounter Care Teams Drafter Detail Relationship Specialty [place] [address] [place] [address] PCP - General Family Medicine 09/23/21 11/22/23 Phoenix Loredo MD Consulting Physician Cardiology 01/04/19 [place] [address] [place] [address] Manager Of Security Obstetrics and Gynecology 04/19/21 documented as of this encounter
--- OUTSIDE RECORDS SUMMARY | 2024-10-13 04:06 | XMS_ITS | Encounter Summary ---
Author Organization [facility] Address [address] [place] [address] Care Team Providers Care Endoscope Technician Name Role Phone Phoenix Loredo MD Unavailable [phone] Aylin Lundy MD Unavailable [phone] Harper Myers DO Primary Care Provider [phone] Reason for Visit * Reason Comments Annual Exam Encounter Details Date Type Department Care Team (Late st Contact Info) Description 06/21/2023 8:30 AM CDT Office Visit [facility] Primary Care at [address] [place] [address] Harper Myers DO [address] [facility] [address] [address] Annual physical exam (Primary Dx); Seasonal allergic rhinitis, unspecified trigger; Other migraine without status migrainosus, not intractable; Screening for deficiency anemia; Encounter for screening for other digestive system disorders; Encounter for screening examination for impaired glucose regulation and diabetes mellitus; Encounter for lipid screening for cardiovascular disease; Screening for thyroid disorder; Screening for blood or protein in urine Social History Tobacco Use Types Packs/Day Years [...] on file 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 Gender Identity Not on file Sexual Orientation Not on file documented as of this encounter Last Filed Vital Signs Vital Sign Reading Time Taken Comments Blood Pressure 112/84 06/21/2023 8:14 AM CDT Pulse 68 06/21/2023 8:14 AM CDT Temperature 36.8 ??C (98.3 ??F) 06/21/2023 8:14 AM CD T Respiratory Rate 18 06/21/2023 8:14 AM CDT Oxygen Saturation 96% 06/21/2023 8:14 AM CDT Inhaled Oxygen Concentration - - Weight 67.6 kg (149 lb 1.6 oz) 06/21/2023 8:14 A M CDT Height 152.4 cm (5') 06/21/2023 8:14 AM CDT Body Mass Index 29.12 06/21/2023 8:14 AM CDT documented in this encounter Patient Instructions * Patient Instructions* Harper Myers, - 06/21/2023 8:30 AM CDT Images from the original note were not included. 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 Yourhealthcare provider will also give you advice on how to stay healthy. Write down your questions so you remember to ask them. Ask your healthcare provider how often you should have a wellness visit. What happens at a wellness visit: Your healthcare provider will ask about your health, and your family history of health problems. This includes high blood pressure, heart disease, and cancer. He or she will ask if you have symptoms that concern you, if you smoke, and about your mood. You may also be asked about your intake of medicines, supplements, food, and alcohol. Any of the following may bedone: Your weight will be checked. Your height may also be checked so your body mass index (BMI) can be calculated. Your BMI shows if you are at a healthy weight. Your blood pressure and heart rate will be checked. Your temperature may also be checked. Blood and urine tests may be done. Blood tests may be done to check your cholesterol levels. Abnormal cholesterol levels increase your risk for heart disease and stroke. You may also need a blood or urine test to check for diabetes if you are at increased risk. Urine tests may be done to look for signs of an infection or kidney disease. A physical exam includes checking your heartbeat and lungs with a stethoscope. Your healthcare provider may also check your skin to look for sun damage. Screening tests may be recommended. A screening test is done to check for diseases that may not cause symptoms. The screening tests you may need depend on your age, gender, family history, and lifestyle habits. For example, colorectal screening may be recommended if you are 50 years old or older. Screening tests you need if you are a woman: A Pap smear is used to screen for cervical cancer. Pap smears are usually done every 3 to 5 years depending on your age. You may need them more often if you have had abnormal Pap smear test results in the past. Ask your healthcare provider how often you should have a Pap smear. A mammogram is an x-ray of your breasts to screen for breast cancer. Experts recommend mammograms every 2 years starting at age 50 years. You may need a mammogram at age 49 years or younger if you have an increased risk for breast cancer. Talk to your healthcare provider about when you should starthaving mammograms and how often you need them. Vaccines you may need: Get an influenza vaccine every year. The influenza vaccine protects you from the flu. Several typesof viruses cause the flu. The viruses manager change time, so new vaccines are made each year. Get a tetanus-diphtheria (Td) booster vaccine every 10 years. This vaccine protects you against tetanus and diphtheria. Tetanus is a severe infection that may cause painful muscle spasms and lockjaw.Diphtheria is a severe bacterial infection that causes a thick covering in the back of your mouth and throat. Get a human papillomavirus (HPV) vaccine if you are female and aged 19 to 26 or male 19 to 21 and never received it. This vaccine protects you from HPV infection. HPV is the most common infection spread by sexual contact. HPV may also cause vaginal, penile, and anal cancers. Get a pneumococcal vaccine if you are aged 65 years or older. The pneumococcal vaccine is an injection given to protect you from pneumococcal disease. Pneumococcal disease is an infection caused by pneumococcal bacteria. The infection may cause pneumonia, meningitis, or an ear infection. Get a shingles vaccine if you are 60 or older, even if you have had shingles before. The shingles vaccine is an injection to protect you from the varicella- zoster virus. This is the same virus that causes chickenpox. Shingles is a painful rash that develops in people who had chickenpox or have beenexposed to the virus. How to eat healthy: My Plate is a model for planning healthy meals. It shows the types and amounts of foods that should go on your plate. Fruits and vegetables make up about half of your plate, and grains and protein make up the other half. A serving of dairy is included on the side of your plate. The amount of calories and serving sizes you need depends on your age, gender, weight, and height. Ex amples of healthy foods are listed below: Eat a variety of vegetables such as dark green, red, and orange vegetables. You can also include canned vegetables low in sodium (salt) and frozen vegetables without added butter or sauces. Eat a variety of fresh fruits , canned fruit in 100% juice, frozen fruit, and dried fruit. Include whole grains. At least half of the grains you eat should be whole grains. Examples include whole-wheat bread, wheat pasta, brown rice, and whole- grain cereals such as oatmeal. Eat a variety of protein foods such as seafood (fish and shellfish), lean meat, and poultry withoutskin (turkey and chicken). Examples of lean meats include pork leg, shoulder, or tenderloin, and beef round, sirloin, tenderloin, and extra lean ground beef. Other protein foods include eggs and egg substitutes, beans, peas, soy products, nuts, and seeds. Choose low-fat dairy products such as skim or 1% milk or low-fat yogurt, cheese, and cottage cheese. Limit unhealthy fats such as butter, hard margarine, and shortening. Exercise: Exercise at least 30 minutes per day on most days of the week. Some examples of exercise include walking, biking, dancing, and swimming. You can also fit in more physical activity by takingthe stairs instead of the elevator or parking farther away from stores. Include muscle strengthening activities 2 days each week. Regular exercise provides many health benefits. It helps you manage your weight, and decreases your risk for type 2 diabetes, heart disease, stroke, and high blood pressure. Exercise can also help improve your mood. Ask your healthcare provider about the best exercise plan for you. General health and safety guidelines: Do not smoke. Nicotine and other chemicals in cigarettes and cigars can cause lung damage. Ask yourhealthcare provider for information if you currently smoke and need help to quit. E-cigarettes or smokeless tobacco still contain nicotine. Talk to your healthcare provider before you use these products. Limit alcohol. A drink of alcohol is 12 ounces of beer, 5 ounces of wine, or 1?? ounces of liquor. Lose weight, if needed. Being overweight increases your risk of certain health conditions. These include heart disease, high blood pressure, type 2 diabetes, and certain types of cancer. Protect your skin. Do not sunbathe or use tanning beds. Use sunscreen with a SPF 15 or higher. Apply sunscreen at least 15 minutes before you go outside. Reapply sunscreen every 2 hours. Wear protective clothing, hats, and sunglasses when you are outside. Drive safely. Always wear your seatbelt. Make sure everyone in your car wears a seatbelt. A seatbelt can save your life if you are in an accident. Do not use your cell phone when you are driving. This could distract you and cause an accident. cover remover if you need to make a call or send a text message. Practice safe sex. Use latex condoms if are sexually active and have more than one partner. Your healthcare provider may recommend screening tests for sexually transmitted infections (STIs). Wear helmets, lifejackets, and protective gear. Always wear a helmet when you ride a bike or motorcycle, go skiing, or play sports that could cause a head injury. Wear protective equipment when you play sports. Wear a lifejacket when you are on a boat or doing water sports. ?? Copyright [employer] 2021 Information is for End User's use only and may not be sold, redistributed or otherwise used for commercial purposes. All illustrations and images included in CareNotes?? are the copyrighted property of [employer]. or [employer] The above information is an public health aides teacher only. It is not intended as medical advice for individual conditions or treatments. Talk to your doctor, nurse or pharmacist before following any medical regimen to see if it is safe and effective for you. Health Maintenance Topics with due status: Overdue Topic Date Due DTaP/Tdap/Td Vaccine Never done Zoster Vaccine Never done Health Maintenance Topics with due status: Due On Topic Date Due Influenza Vaccine 06/09/2023 Thanks for coming in today! My medical esthetician and I are thankful you have trusted us with your care, and hope that you received EXCELLENT care today! Although some conditions may not allow immediate improvement, I aim to always make you feel a little better leaving, than when you came in. [place] not hesitate to call, if you have any questions or concerns, at [phone]. You may receive a phone call, text, MYCHART message, or e-mail asking you to take a survey about your care today. We would love to hear your feedback on how EXCELLENT your care was today! Wishing you better health, always! Dr. Harper Myers documented in this encounter Ordered Prescriptions Prescription Sig Dispense Quantity Refills Last Filled Start Date End Date SUMAtriptan (IMITREX) 50 mg tabletIndications: Other migraine without status migrainosus, not intractable May repeat dose once in 2 hours if no relief. Do not exceed 2 doses in 24 hours. 9 tablet 3 06/21/2023 aspirin 81 mg enteric coated tablet Take 1 tablet (81 mg total) by mouth daily 90 tablet 3 06/21/2023 4 fluticasone propionate (FLONASE) 50 mcg/actuation nasal spray Administer 1 spray into each nostril daily 16 g 11 06/21/2023 4 documented in this encounter Progress Notes * Harper Myers DO - 06/21/2023 8:30 AM CDT Images from the original note were not included. Subjective/Objective Patient ID: Mirtha Cherry is a 58 y.o. female. Chief Complaint Chief Complaint Patient presents with Annual Exam HPI Patient RTC today for her annual exam. She has no concerns about her health this year. She is considering having the Shingles vaccine done, but will check with her insurance company first about coverage. Review of Systems Constitutional: Negative for fever. HENT: Negative for congestion and sore throat. Eyes: Negative for visual disturbance. Respiratory: Negative for cough and shortness of breath. Cardiovascular: Negative for chest pain, palpitations and leg swelling. Gastrointestinal: Negative for abdominal pain. Genitourinary: Negative for hematuria. Musculoskeletal: Negative for arthralgias and myalgias. Skin: Negative for rash. Neurological: Negative for dizziness, numbness and headaches. Hematological: Negative for adenopathy. All other systems reviewed and are negative. Vitals: 06/21/23 0814 BP: 112/84 BP Location: Right arm Patient Position: Sitting Pulse: 68 Resp: 18 Temp: 36.8 ??C (98.3 ??F) TempSrc: Oral SpO2: 96% Weight: 67.6 kg (149 lb 1.6 oz) Height: 152.4 cm (5') Body mass index is 29.12 kg/m??. Physical Exam Vitals and nursing note reviewed. Constitutional: Appearance: Normal appearance. She is well-developed. HENT: Head: Normocephalic and atraumatic. Right Ear: Hearing, tympanic membrane, ear canal and external ear normal. There is no impacted cerumen. Left Ear: Hearing, tympanic membrane, ear canal and external ear normal. There is no impacted cerumen. Mouth/Throat: Mouth: Mucous membranes are moist. Pharynx: Oropharynx is clear. No posterior oropharyngeal erythema. Eyes: General: Lids are normal. No scleral icterus. Extraocular Movements: Extraocular movements intact. Conjunctiva/sclera: Conjunctivae normal. Neck: Thyroid: No thyromegaly. Cardiovascular: Rate and Rhythm: Normal rate and regular rhythm. Heart sounds: Normal heart sounds. No murmur heard. Pulmonary: Effort: Pulmonary effort is normal. Breath sounds: Normal breath sounds. No wheezing. Abdominal: General: Bowel sounds are normal. Palpations: Abdomen is soft. There is no mass. Tenderness: There is no abdominal tenderness. Musculoskeletal: General: Normal range of motion. Cervical back: Full passive range of motion without pain, normal range of motion and neck supple. Right lower leg: No edema. Left lower leg: No edema. Skin: General: Skin is warm and dry. Findings: No erythema or rash. Neurological: General: No focal deficit present. Mental Status: She is alert and oriented to person, place, and time. Psychiatric: Mood and Affect: Mood normal. Behavior: Behavior normal. Thought Content: Thought content normal. Lab Results Component Value Date CHOL 143 [...] 170 (H) 10/15/2021 TRIG 196 (H) 04/10/2021 Chemistry Component Value Date/Time SODIUM 140 02/19/2023 0607 POTASSIUM 3.6 02/19/2023 0607 POTASSIUM 4.1 06/03/2017 0720 CHLORIDE 105 02/19/2023 0607 CO2 23 02/19/2023 0607 BUNSER 13 02/19/2023 0607 CREATININE 0.82 02/19/2023 0607 GLUCOSE 110 02/19/2023 0607 Component Value Date/Time CALCIUM 9.0 02/19/2023 0607 ALKPHOS 93 02/19/2023 0607 AST 21 02/19/2023 0607 ALT 32 02/19/2023 0607 BILITOT <0.2 02/19/2023 0607 Lab Results Component Value Date WBC 16.3 (H) 02/19/2023 HGB 13.2 02/19/2023 HCT 38.7 02/19/2023 MCV 91.9 02/19/2023 LABPLAT 257 02/19/2023 Lab Results Component Value Date TSH 1.42 06/20/2022 Lab Results Component Value Date HGBA1C 5.6 06/20/2022 Diagnoses and all orders for this visit: Annual physical exam (Primary) Comments: Well exam. Health maintenance updated. Orders: - CBC with auto differential; Future - Comprehensive metabolic panel; Future - Hemoglobin A1c; Future - Lipid panel; Future - TSH reflex to free T4; Future - Urinalysis reflex to microscopic and culture Urine, clean voided; Future Seasonal allergic rhinitis, unspecified trigger Assessment & Plan: Stable. Cont. Current prescription medications, flonase. Other migraine without status migrainosus, not intractable Comments: refilled Imitrex Assessment & Plan: Clinically improved, continue current prescription medications, Imitrex. Orders: - SUMAtriptan (IMITREX) 50 mg tablet; May repeat dose once in 2 hours if no relief. Do not exceed 2doses in 24 hours. Screening for deficiency anemia - CBC with auto differential; Future Encounter for screening for other digestive system disorders - Comprehensive metabolic panel; Future Encounter for screening examination for impaired glucose regulation and diabetes mellitus - Hemoglobin A1c; Future Encounter for lipid screening for cardiovascular disease - Lipid panel; Future Screening for thyroid disorder - TSH reflex to free T4; Future Screening for blood or protein in urine - Urinalysis reflex to microscopic and culture Urine, clean voided; Future Other orders - fluticasone propionate (FLONASE) 50 mcg/actuation nasal spray; Administer 1 spray into each nostril daily - aspirin 81 mg enteric coated tablet; Take 1 tablet (81 mg total) by mouth daily Harper Myers DO This note is dictated and transcribed by [employer]. Knife Glazer variances may occur. Despite proofreading, typographical errors may occur. documented in this encounter Miscellaneous Notes * Assessment & Plan Note - Harper Myers DO - 06/21/2023 9:55 AM CDT Associated Problem(s): Atopic rhinitis Stable. Cont. Current prescription medications, flonase. * Assessment & Plan Note - Harper Myers DO - 06/21/2023 9:54 AM CDT Associated Problem(s): Migraine Clinically improved, continue current prescription medications, Imitrex. documented in this encounter Plan of Treatment Upcoming Encounters Date Type Department Care Team (Late st Contact Info) Description 02/04/2025 9:30 AM CDT Hospital Encounter [address] [address] Vic Gaines DO [address] [facility] [address] [place] [address] 02/04/2025 9:30 AM CDT - 02/04/2025 10:00 AM CDT Surgery [address] [address] Vic Gaines DO 3 [facility] [address] [place] [address] COLONOSCOPY Scheduled Procedures Name Priority Associated Diagnoses Date/Ti me COLONOSCOPY Encounter for screening colonoscopy 02/04/2025 9:30 AM CDT documented as of this encounter Results * Urinalysis reflex to microscopic and culture Urine, clean voided (06/21/2023 9:20 AM CDT) Color, ur Yellow Yellow [facility] ([place]) Clarity, ur Clear Clear [facility] ([place]) Specific gravity, ur 1.007 1.003 - 1.030 [facility] ([place]) pH, urine 6.0 [facility] ([place]) Protein, ur ql Negative Negative [facility] ([place]) Glucose, ur ql Negative Negative [facility] ([place]) Ketones, ur Negative Negative [facility] ([place]) Bilirubin, ur Negative Negative [facility] ([place]) Blood, ur Negative Negative [facility] ([place]) Urobilinogen, ur <2.0 <2.0 mg/dL [facility] ([place]) Nitrite, ur Negative Negative [facility] ([place]) Leukocyte esterase, ur Negative Negative [facility] ([place]) UA reflex comment Reflex conditions for microscopic UA and culture not met. [facility] ([place] Urine, clean voided 06/21/2023 9:20 AM CDT 06/21/2023 1:26 PM CDT Narrative [facility] ([place]) - 06/21/2023 1:31 PM CDT ?? Urine pH is affected by diet, medications, systemic acid-base disturbances, and renal tubular function. ??pH may affect urinary stone formation. ??For example, urine pH below 6.0 may help reduce the tendency for calcium phosphate stones and pH greater than 6.0 may reduce the tendency for uric acid stone formation. Source: [facility]. Last revised 10-19-2017 us Harper Myers DO LAB MICROBIOLOGY - GENERAL ORDERABLES Final Result Performing Organization Address [facility] Co de Phone Number [facility] ([place]) [address] [facility] [place] [address] * TSH reflex to free T4 (06/21/2023 9:20 AM CDT) TSH 0.99 0.30 - 4.20 mcIUnit/mL [facility] ([place]) Blood 06/21/2023 9:20 AM CDT 06/21/2023 1:26 PM CDT Harper Myers DO LAB BLOOD ORDERABLES Final Result Performing Organization Address City/[facility] Co de Phone Number [facility] ([place]) 1 [facility] [place] [address] * (ABNORMAL) Lipid panel (06/21/2023 9:20 AM CDT) Cholesterol 145 30 - 199 mg/dL [facility] ([place]) Comment: Interpretive Data Ages < or = [...] Data was last revised on 2018. Triglycerides 142 <=149 mg/dL [facility]) Comment: Interpretive Data Ages < or = [...] Data was last revised on 2018. HDL 39(L) >=40 mg/dL [facility]) Comment: Interpretive Data Ages < or = [...] was last revised on 2018. LDL, calculated 78 <=129 mg/dL [facility] ([place]) Comment: Interpretive Data Ages < or = 19 years ??Acceptable: ? <110 mg/dL ??Borderline high: ??110-129 mg/dL ??High: ?>or= 130 mg/dL Ages > or = 20 years ??Optimal: ? <100 mg/dL ??Near optimal: ?100-129 mg/dL ??Borderline high: ?? 130-159 mg/dL ??High: ?>160 mg/dL Literature References: 1. Expert Panel on Integrated Guidelines for Cardiovascular Health and Risk Reduction in Children and Adolescents. Pediatrics 2011;128:S213 2. NCEP Expert Panel. Circulation 2004;110:227 Current Interpretive Data was last revised on 2018. Non-HDL Cholesterol 106 mg/dL [facility] ([place]) Comment: Interpretive Data Ages < or = [...] last revised on 2018. Chol/HDL ratio 4 [facility] ([place]) Blood 06/21/2023 9:20 AM CDT 06/21/2023 1:26 PM CDT Harper Myers DO LAB BLOOD ORDERABLES Final Result [facility]) 1 [facility] [place] [address] * (ABNORMAL) Hemoglobin A1c (06/21/2023 9:20 AM CDT) Hgb A1C 5.7(H) 4.0 - 5.6 % [facility] ([place]) Estimated Average Glucose 117 mg/dL [facility] ([place]) Comment: The ADA recommends reporting an estimated Average Glucose (eAG) with all Hemoglobin A1c results using the equation derived from a study of 507 normal and diabetic adults. ??Minority populations were underrepresented and children were not included. ?? (Diabetes Care 31:5259-9671, 2008). ??The eAG is not equivalent to a fasting glucose. Blood 06/21/2023 9:20 AM CDT 06/21/2023 1:26 PM CDT us Harper Myers DO LAB BLOOD ORDERABLES Final Result [facility] ([place]) 1 [facility] [place] [address] * (ABNORMAL) Comprehensive metabolic panel (06/21/2023 9:20 AM CDT) Sodium 141 135 - 145 mmol/L [facility] ([place]) Potassium, pl 5.0(H) 3.3 - 4.9 mmol/L [facility] ([place]) Chloride 107 97 - 110 mmol/L [facility] ([place]) CO2 24 22 - 32 mmol/L [facility] ([place]) Anion gap 11 2 - 15 mmol/L [facility] ([place]) BUN 12 6 - 25 mg/dL [facility] ([place]) Creatinine 0.92 0.60 - 1.10 mg/dL [facility] ([place]) Glucose 100 70 - 199 mg/dL [facility] ([place]) Comment: Interpretive Data Fasting glucose >/= [...] interpretive data was last revised 2022. Calcium 9.2 8.5 - 10.3 mg/dL [facility] ([place]) Bilirubin, total 0.2 0.1 - 1.2 mg/dL [facility] ([place]) Protein, pl 6.5 6.5 - 8.5 g/dL [facility] ([place]) Albumin 4.4 3.5 - 5.0 g/dL [facility] ([place]) Alk phos 92 40 - 130 Units/L [facility] ([place]) ALT 16 7 - 45 Units/L [facility] ([place]) AST 25 10 - 45 Units/L [facility] ([place]) Blood 06/21/2023 9:20 AM CDT 06/21/2023 1:26 PM CDT us Harper Myers DO LAB BLOOD ORDERABLES Final Result [facility] ([place]) 1 [facility] [place] [address] * (ABNORMAL) CBC with auto differential (06/21/2023 9:20 AM CDT) WBC 10.4(H) 3.8 - 9.9 K/cumm [facility] ([place]) Hgb 15.3 11.9 - 15.5 g/dL [facility] ([place]) Hct 46.3(H) 35.6 - 45.5 % [facility] ([place]) Plt 233 150 - 400 K/cumm [facility] ([place]) MPV 10.9 9.1 - 12.3 fL [facility] ([place]) RBC 4.91 3.90 - 5.20 M/cumm [facility] ([place]) MCV 94.3 81.3 - 96.4 fL [facility] ([place]) MCH 31.2 27.1 - 33.3 pg [facility] ([place]) MCHC 33.0 32.3 - 35.7 g/dL [facility] ([place]) RDW CV 13.2 11.1 - 14.9 % [facility] ([place]) RDW SD 45.7 35.7 - 48.1 fL [facility] (ARTEMIO) NRBC abs 0.00 0.00 - 0.01 K/cumm JAY IZQUIERDO (ARTEMIO) Blood 06/21/2023 9:20 AM CDT 06/21/2023 1:26 PM CDT Harper Myers DO LAB BLOOD ORDERABLES Final Result JAY IZQUIERDO ([place]) 1 [facility] Department [place] [address] documented in this encounter Visit Diagnoses Diagnosis Annual physical exam- Primary Routine general medical examination at a health care facility Seasonal allergic rhinitis, unspecified trigger Other migraine without status migrainosus, not intractable Screening for deficiency anemia Screening for other and unspecified deficiency anemia Encounter for screening for other digestive system disorders Encounter for screening examination for impaired glucose regulation and diabetes mellitus Encounter for lipid screening for cardiovascular disease Screening for thyroid disorder Screening for blood or protein in urine Screening for unspecified condition Annual physical exam Routine general medical examination at a health care facility Screening for blood or protein in urine Screening for unspecified condition Screening for thyroid disorder Encounter for lipid screening for cardiovascular disease Encounter for screening examination for impaired glucose regulation and diabetes mellitus Encounter for screening for other digestive system disorders Screening for deficiency anemia Screening for other and unspecified deficiency anemia Encounter for screening colonoscopy documented in this encounter Discontinued Medications Medication Sig Discontinue Reason Start Date End Da te famotidine (Pepcid) 40 mg tablet Take 1 tablet (40 mg total) by mouth nightly Therapy completed 10/29/2021 06/21/2023 levoFLOXacin (LEVAQUIN) 500 mg tablet Take 1 tablet (500 mg total) by mouth daily Therapy completed 02/19/2023 06/21/2023 nystatin 100,000 unit/mL suspension Take 5 mL (500,000 Units total) by mouth 4 (four) times a day Therapy completed 02/19/2023 06/21/2023 pimecrolimus (ELIDEL) 1 % creamIndications:Eczema of both hands Apply topically 2 (two) times a day Therapy completed 04/27/2019 06/21/2023 aspirin 81 mg enteric coated tablet Take 1 tablet (81 mg total) by mouth daily Reorder 10/29/2021 06/21/2023 fluticasone propionate (FLONASE) 50 mcg/actuation nasal spray Administer 1 spray into each nostril daily Reorder 10/29/2021 06/21/2023 SUMAtriptan (IMITREX) 50 mg tabletIndications:Other migraine without status migrainosus, not intractable May repeat dose once in 2 hours if no relief. Do not exceed 2 doses in 24 hours. Reorder 10/29/2021 06/21/2023 documented as of this encounter Care Teams Endoscope Technician Relationship Specialty [place] [address] [place] [address] PCP - General Family Medicine 09/23/21 11/22/23 Phoenix Loredo MD Consulting Physician Cardiology 01/04/19 [place] [address] [place] [address] Volleyball Commentator Obstetrics and Gynecology 04/19/21 documented as of this encounter
--- OUTSIDE RECORDS SUMMARY | 2024-10-13 04:06 | XMS_ITS | Encounter Summary ---
Author Organization 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 Gender Identity Not on file Sexual Orientation Not on file documented as of this encounter Plan of Treatment Upcoming Encounters Date Type Department Care Team (Late st Contact Info) Description 02/04/2025 9:30 AM CDT Hospital Encounter [address] [address] Vic Gaines, DO [address] [place] [address] [place] [address] 02/04/2025 9:30 AM CDT - 02/04/2025 10:00 AM CDT Surgery [address] [address] Vic Gaines, DO [address] [facility] [address] [place] [address] [place] [address] COLONOSCOPY Scheduled Procedures Name Priority Associated Diagnoses Date/Ti me COLONOSCOPY Encounter for screening colonoscopy 02/04/2025 9:30 AM CDT documented as of this encounter Procedures Procedure Name Priority Date/Time Associated Diagnosis Comments PRO B-TYPE NATRIURETIC PEPTIDE Routine 02/28/2023 10:05 AM CDT Shortness of breath documented in this encounter Results * Pro B-type natriuretic peptide (02/28/2023 10:05 AM CDT) NT-proBNP 172 <=300 pg/mL JAY IZQUIERDO ([place]) Comment: Interpretive Comments: A. Dyspnea in Acute [...] well as advanced age. - References: 1. Naet SANDY et.al. Eur Heart J. 2006:27:330-337. 2. Sepideh RW, Faisal AM. J. AM Gabo Cardiol: Cardiovasc Imag. 2009;2: 216- 225. Interpretive Data Last Revised Date: 2018. Blood 02/28/2023 10:0 5 AM CDT 02/28/2023 10:36 AM CDT us Phoenix Loredo MD LAB BLOOD ORDERABLES Final Resu lt [facility] ([place]) 1 [facility] Department [place] [address] documented in this encounter Visit Diagnoses Diagnosis Shortness of breath Encounter for screening colonoscopy documented in this encounter Care Teams Display Screen Fabricator Relationship Specialty [place] [address] [place] [address] PCP - General Family Medicine 12/16/21 2/14/24 Phoenix Loredo MD Consulting Physician Cardiology 01/04/19 [place] [address] [place] [address] Testing Projects Administrator Obstetrics and Gynecology 04/19/21 documented as of this encounter
--- OUTSIDE RECORDS SUMMARY | 2024-10-13 04:06 | XMS_ITS | Encounter Summary ---
Author Organization [facility] Healthcare Address [address] [place] [address] Care Team Providers Care Stone Driller Name Role Phone Phoenix Loredo MD Unavailable [phone] Aylin Lundy MD Unavailable [phone] Karson Forbes MD Primary Care Provider [phone] Reason for Referral * Diagnostic Imaging (Routine) - Closed Specialty Diagnoses / Procedures Referred By Contac t Referred To Contact Diagnoses Atherosclerosis of qagan tayagung[place] arteries of extremities with intermittent claudication, bilateral legs (HCC) Procedures US ABE Kenzie Be NP [address] [facility] [address] [place] [address] Phone: tel: fax: [address] [address] Referral ID Status Reason Start Date Expiration Date Visits Re quested Visits Authorized [id number] Closed 07/10/2023 08/08/2024 1 1 Reason for Visit * Diagnostic Imaging (Routine) - Closed Specialty Diagnoses / Procedures Referred By Contac neeraj Referred To Contact Diagnoses Atherosclerosis of qagan [place]agung[place] arteries of extremities with intermittent claudication, bilateral legs (HCC) Procedures US ABE Kenzie Be NP [address] [facility] [address] [place] [address] Phone: tel: fax: [facility] [address] [place] [address] Referral ID Status Reason Start Date Expiration Date Visits Re quested Visits Authorized [id number] Closed 07/10/2023 08/08/2024 1 1 Encounter Details Date Type Department Care Team (Latest Contact Info) Description 04/08/2024 6:54 AM CDT - 04/08/2024 11:59 PM CDT Hospital Encounter [facility] [address] [place] [address] Atherosclerosis of qagan tayagungin arteries of extremities with intermittent claudication, bilateral legs (HCC) Discharge Disposition: Discharge to home or self care Social History Tobacco Use Types Packs/Day Years Used Date Smoking Tobacco: Every Day Cigarettes 45 Started: 1979 Passive Smoke Exposure: Past [...] on file 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 Gender Identity Not on file Sexual Orientation [...] 02/04/2025 9:30 AM CDT Hospital Encounter [facility] [address] [place] [address] Vic Gaines, DO [address] [address] 02/04/2025 9:30 AM CDT - 02/04/2025 10:00 AM CDT Surgery [facility] [address] [place] [address] Vic Gaines, DO 3 [facility] [address] [place] [address] COLONOSCOPY Scheduled Procedures Name Priority Associated Diagnoses Date/Ti me COLONOSCOPY Encounter for screening colonoscopy 02/04/2025 9:30 AM CDT documented as of this encounter Procedures Procedure Name Priority Date/Time Associated Diagnosis Comments US ABE Schedule Routine, Read Routine (OP Routine) 04/08/2024 7:43 AM CDT Atherosclerosis of qagan tayagungin arteries of extremities with intermittent claudication, bilateral legs (HCC) documented in this encounter Results * US ABE (04/08/2024 7:43 AM CDT) Anatomical Region Laterality Modality Vascular N/A Ultrasound 04/08/2024 7:17 AM CDT Narrative 04/08/2024 8:10 AM CDT [address] [address] Ankle Brachial Index Report Patient Name: MOSHE HARTLEY ?? : 1965 (58y 11m) ??Gender: F Study Date: 04-08-2024 07:17:00 AM Loom Setter: [place]on Provider: KENZIE BE Quality: Adequate Ref Provider: KENZIE BE ?? PROCEDURES: Arterial Report: A bilateral [...] Procedure Note Phoenix Loredo MD - 04/08/[address] [address] Ankle Brachial Index Report Patient Name: MOSHE HARTLEY : 1965 (58y 11m) Gender: F Study Date: 04-08-2024 07:17:00 AM Loom Setter: Order Provider: KENZIE BE Quality: Adequate Ref Provider: KENZIE BE PROCEDURES: Arterial Report: A bilateral extremities ankle/brachial index wasperformed. INDICATIONS: Peripheral Vascular Disease. CONCLUSIONS: 1. No arterial insufficiency at rest in the right lower extremity withankle- brachial index 0.95. 2. No arterial insufficiency at rest in the left lower extremityankle-brachial index 1.05. 3. Biphasic to triphasic waveform at the ankle bilaterally. FINDINGS: Electronically Signed By: Phoenix Loredo MD 2024-04-08 08:09:33 CDT us Kenzie Thao Be NURSING HOME ASSISTANT ADMINISTRATOR IMG US PROCEDURES Final Result documented in this encounter Visit Diagnoses Diagnosis Atherosclerosis of qagan tayagung[place] arteries of extremities with intermittent claudication, bilateral legs (HCC) Encounter for screening colonoscopy documented in this encounter Care Teams Stone Driller Relationship Specialty Start Date End Date Karson Forbes MD [address] [place] [address] PCP - General Family Medicine 11/23/23 Phoenix Loredo MD Consulting Physician Cardiology 01/04/19 [place] [address] [place] [address] Bag Hanger Obstetrics and Gynecology 04/19/21 documented as of this encounter
--- OUTSIDE RECORDS SUMMARY | 2024-10-13 04:06 | XMS_ITS | Encounter Summary ---
Author Organization [facility] Address [address] [place] [address] Care Team Providers Care Manager Administrative Services Name Role Phone Phoenix Loredo MD Unavailable [phone] Aylin Lundy MD Unavailable [phone] Karson Forbes MD Primary Care Provider [phone] Reason for Referral * MRI/CAT/PET Scan (Routine) - Closed Specialty Diagnoses / Procedures Referred By Contac t Referred To Contact Radiology Diagnoses Nicotine dependence, cigarettes, uncomplicated Cigarette nicotine dependence without complication Centrilobular emphysema (HCC) Procedures CT Lung Cancer Screening Ho Jarrett MD [address] [place] [address] [address] [place] [address] Phone: tel: fax: [address] [address] Referral ID Status Reason Start Date Expiration Date Visits Re quested Visits Authorized [id number] Closed 11/22/2023 12/21/2024 1 1 Reason for Visit * MRI/CAT/PET Scan (Routine) - Closed Specialty Diagnoses / Procedures Referred By Contac t Referred To Contact Radiology Diagnoses Nicotine dependence, cigarettes, uncomplicated Cigarette nicotine dependence without complication Centrilobular emphysema (HCC) Procedures CT Lung Cancer Screening Ho Jarrett MD [address] [place] [address] [address] [place] [address] Phone: tel: fax: [address] [phone] Referral ID Status Reason Start Date Expiration Date Visits Re quested Visits Authorized [id number] Closed 11/22/2023 12/21/2024 1 1 Encounter Details Date Type Department Care Team (Latest Contact Info) Description 04/08/2024 6:54 AM CDT - 04/08/2024 11:59 PM CDT Hospital Encounter [facility] [address] [place] [address] Nicotine dependence, cigarettes, uncomplicated; Cigarette nicotine dependence without complication; Centrilobular emphysema (HCC) Discharge Disposition: Discharge to home or [...] on file 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 Gender Identity Not on file Sexual Orientation Not on file documented as of this encounter Last Filed Vital Signs Vital Sign Reading Time Taken Comments Blood Pressure - - Pulse - - Temperature - - Respiratory Rate - - Oxygen Saturation - - Inhaled Oxygen Concentration - - Weight 67.1 kg (148 lb) 04/08/2024 7:23 AM CDT Height 152.4 cm (5') 04/08/2024 7:23 AM CDT Body Mass Index 28.9 04/08/2024 7:23 AM CDT documented in this encounter Medications at Time [...] MG) BY MOUTH DAILY 90 tablet 3 02/05/14/20 24 multivitamin capsule Take 1 capsule by mouth daily 05/14/20 24 documented as of this encounter Discharge Disposition Disposition Code Departure Means Destination Discharge to home or self care documented in this encounter Plan of Treatment Upcoming Encounters Date Type Department Care Team (Late st Contact Info) Description 02/04/2025 9:30 AM CDT Hospital Encounter [facility] [address] [place] [address] Vic Gaines, DO [address] [facility] [address] [place] [address] [place] [address] 02/04/2025 9:30 AM CDT - 02/04/2025 10:00 AM CDT Surgery [address] [address] Vic Gaines, DO [address] [facility] [place] [address] [place] [address] COLONOSCOPY Scheduled Procedures Name Priority Associated Diagnoses Date/Ti me COLONOSCOPY Encounter for screening colonoscopy 02/04/2025 9:30 AM CDT documented as of this encounter Procedures Procedure Name Priority Date/Time Associated Diagnosis Comments CT LUNG CANCER SCREENING Schedule Routine, Read Routine (OP Routine) 04/08/2024 7:19 AM CDT Nicotine dependence, cigarettes, uncomplicated Cigarette nicotine dependence without complication Centrilobular emphysema (HCC) documented in this encounter Results * CT Lung Cancer [...] AM T: ??04/08/2024 8:39 AM Report ID: [id number] Reading Location: ??[id number] Procedure Note Joaquina Colmenares DO - 04/08/2024 EXAM DESCRIPTION: CT LUNG [...] Joaquina Colmenares D.O. PS: PS Report ID: [id number] Reading Location: [place] [address] Ho Jarrett MD IM CT PROCEDURES Final Result documented in this encounter Visit Diagnoses Diagnosis Nicotine dependence, cigarettes, uncomplicated Cigarette nicotine dependence without complication Centrilobular emphysema (HCC) Encounter for screening colonoscopy documented in this encounter Care Teams Manager Administrative Services Relationship Specialty Start Date End Date Karson Forbes MD [address] [place] [address] PCP - General Family Medicine 11/23/23 Phoenix Loredo MD Consulting Physician Cardiology 01/04/19 [place] [address] [place] [address] Reimbursement Auditor Obstetrics and Gynecology 04/19/21 documented as of this encounter
--- OUTSIDE RECORDS SUMMARY | 2024-10-13 04:06 | XMS_ITS | Encounter Summary ---
Author Organization [facility] Healthcare Address [address] [place] [address] Care Team Providers Care Trekking Guide Name Role Phone Phoenix Loredo MD Unavailable [phone] Aylin Lundy MD Unavailable [phone] Harper Myers DO Primary Care Provider [phone] Reason for Referral * Diagnostic Imaging (Routine) - Closed Specialty Diagnoses / Procedures Referred By Denton pickard Referred To Contact Diagnoses Carotid bruit, unspecified laterality Procedures US Carotids Duplex Bilateral Kenzie Be NP 2 [facility] [address] [place] [address] Phone: tel: fax: [address] [address] Referral ID Status Reason Start Date Expiration Date Visits Re quested Visits Authorized [id number] Closed 12/26/2022 01/25/2024 1 1 Reason for Visit * Diagnostic Imaging (Routine) - Closed Specialty Diagnoses / Procedures Referred By Denton pickard Referred To Contact Diagnoses Carotid bruit, unspecified laterality Procedures US Carotids Duplex Bilateral Kenzie Be NP 2 [facility] [address] [place] [address] Phone: tel: fax: [facility] [address] [place] [address] Referral ID Status Reason Start Date Expiration Date Visits Re quested Visits Authorized [id number] Closed 12/26/2022 01/25/2024 1 1 Encounter Details Date Type Department Care Team (Latest Contact Info) Description 06/30/2023 7:52 AM CDT - 06/30/2023 11:59 PM CDT Hospital Encounter [facility] [address] [place] [address] Carotid bruit, unspecified laterality Discharge Disposition: Discharge to home or self [...] on file 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 Gender Identity Not on file Sexual Orientation [...] 05/14/20 24 atorvastatin (LIPITOR) 40 mg tablet Take 1 tablet (40 mg total) by mouth daily 90 tablet 3 3 11/30/19 24 clopidogreL (PLAVIX) 75 mg tablet TAKE 1 TABLET(75 MG) BY MOUTH DAILY 90 tablet 3 2 09/04/20 23 coenzyme Q10 (CO Q-10) 200 mg capsule [...] BY MOUTH DAILY 90 tablet 3 3 11/30/19 24 multivitamin capsule Take 1 capsule by mouth daily 05/14/20 24 documented as of this encounter Discharge Disposition Disposition Code Departure Means Destination Discharge to home or self care documented in this encounter Plan of Treatment Upcoming Encounters Date Type Department Care Team (Late st Contact Info) Description 02/04/2025 9:30 AM CDT Hospital Encounter [facility] [address] [place] [address] Vic Gaines, 3 [facility] [address] [place] [address] 02/04/2025 9:30 AM CDT - 02/04/2025 10:00 AM CDT Surgery [facility] [address] [place] [address] Vic Gaines, DO 3 [facility] [address] [place] [address] [place] [address] COLONOSCOPY Scheduled Procedures Name Priority Associated Diagnoses Date/Ti me COLONOSCOPY Encounter for screening colonoscopy 02/04/2025 9:30 AM CDT documented as of this encounter Procedures Procedure Name Priority Date/Time Associated Diagnosis Comments US CAROTIDS DUPLEX BILATERAL Schedule Routine, Read Routine (OP Routine) 06/30/2023 9:07 AM CDT Carotid bruit, unspecified laterality documented in this encounter Results * US Carotids Duplex Bilateral (06/30/2023 9:07 AM CDT) Anatomical Region Laterality Modality Vascular Bilateral Ultrasound 06/30/2023 8:46 AM CDT Narrative 06/30/2023 6:05 PM CDT [address] [address] Carotid Duplex Report Patient Name: MOSHE HARTLEY ?? : 1965 (58y 2m) ??Gender: F Study Date: 2023-06-30 8:46:44 AM Fur Blower: CO Order Provider: KENZIE BE Quality: Adequate Ref.Provider: KENZIE BE Procedures: Arterial Report: Color Duplex ultrasound examination, including velocity measurements, was performed of the extracranial carotid arteries bilaterally. Indications: Carotid Bruit R09.89. Conclusions: 1. Mild atherosclerosis with no evidence of significant stenosis of the extracranial carotid arteries bilaterally. 2. Consider follow-up study after one year. Findings: Right CCA: The right common carotid artery is normal in appearance. Right Bifurcation: The right bifurcation is normal in appearance. Right ECA: The right external carotid artery is normal in appearance. Right ICA: Plaque in the right internal carotid artery is mild calcified. The right internal carotid artery has mild atherosclerosis. Right Vert: The right vertebral artery is patent with antegrade flow. Left CCA: The left common carotid artery is normal in appearance. Left Bifurcation: The left bifurcation is normal in appearance. Left ECA: The left external carotid artery is normal in appearance. Left ICA: Plaque in the left internal carotid artery is mild irregular. The left internal carotid artery has mild atherosclerosis. Left Vert: The left vertebral artery is patent with antegrade flow. Measurements: Right ? Value ?Left ?Value ? Rt ICA Prx PSV ?81.60 cm/sec ? Lt ICA Prx PSV ?79.20 cm/sec ? Rt ICA Prx EDV ?31.80 cm/sec ? Lt ICA Prx EDV ?28.30 cm/sec ? Rt ICA Mid PSV ?88.50 cm/sec ? Lt ICA Mid PSV ?90.20 cm/sec ? Rt ICA Mid EDV ?27.20 cm/sec ? Lt ICA Mid EDV ?37.00 cm/sec ? Rt ICA Dst PSV ?79.20 cm/sec ? Lt ICA Dst PSV ?98.30 cm/sec ? Rt ICA Dst EDV ?31.80 cm/sec ? Lt ICA Dst EDV ?37.00 cm/sec ? Rt CCA Prx PSV ?68.40 cm/sec ? Lt CCA Prx PSV ?88.60 cm/sec ? Rt CCA Prx EDV ?14.90 cm/sec ? Lt CCA Prx EDV ?19.80 cm/sec ? Rt CCA Mid PSV ?69.40 cm/sec ? Lt CCA Mid PSV ?69.90 cm/sec ? Rt CCA Mid EDV ?22.10 cm/sec ? Lt CCA Mid EDV ?19.50 cm/sec ? Rt CCA Dst PSV ?71.50 cm/sec ? Lt CCA Dst PSV ?61.20 cm/sec ? Rt CCA Dst EDV ?18.50 cm/sec ? Lt CCA Dst EDV ?21.10 cm/sec ? Rt ECA PSV ?105.10 cm/sec ?Lt ECA PSV ?78.10 cm/sec ? Rt ECA EDV ?16.30 cm/sec ? Lt ECA EDV ?11.00 cm/sec ? Rt Vert PSV ? 39.20 cm/sec ? Lt Vert PSV ? 48.90 cm/sec ? Rt Vert EDV ? 11.50 cm/sec ? Lt Vert EDV ? 11.90 cm/sec ? Rt ICA/CCA Ratio ?1.24 ? Lt ICA/CCA Ratio ?1.61 ? Electronically Signed By: Jonathan Solorio MD, [facility] 2023-06-30 18:05:55 CDT Procedure Note Jonathan Solorio MD - 06/30/[address] [address] Carotid Duplex Report Patient Name: CANDACE HARTLEYORESPatient ID: [id number] : 1965 (58y 2m) Gender: FStudy Date: 2023-06-30 8:46:44 AM CO Order Provider: KENZIE BEQuality: Adequate Ref.Provider: KENZIE BE Procedures: Arterial Report: Color Duplex ultrasound examination, including velocitymeasurements, was performed of the extracranial carotid arteries bilaterally. Indications: Carotid Bruit R09.89. Conclusions: 1. Mild atherosclerosis with no evidence of significant stenosis of theextracranial carotid arteries bilaterally. 2. Consider follow-up study after one year. Findings: Right CCA: The right common carotid artery is normal in appearance. Right Bifurcation: The right bifurcation is normal in appearance. Right ECA: The right external carotid artery is normal in appearance. Right ICA: Plaque in the right internal carotid artery is mild calcified.The right internal carotid artery has mild atherosclerosis. Right Vert: The right vertebral artery is patent with antegrade flow. Left CCA: The left common carotid artery is normal in appearance. Left Bifurcation: The left bifurcation is normal in appearance. Left ECA: The left external carotid artery is normal in appearance. Left ICA: Plaque in the left internal carotid artery is mild irregular.The left internal carotid artery has mild atherosclerosis. Left Vert: The left vertebral artery is patent with antegrade flow. Measurements: Right Value Left Value Rt ICA Prx PSV 81.60 cm/sec Lt ICA Prx PSV 79.20 cm/sec Rt ICA Prx EDV 31.80 cm/sec Lt ICA Prx EDV 28.30 cm/sec Rt ICA Mid PSV 88.50 cm/sec Lt ICA Mid PSV 90.20 cm/sec Rt ICA Mid EDV 27.20 cm/sec Lt ICA Mid EDV 37.00 cm/sec Rt ICA Dst PSV 79.20 cm/sec Lt ICA Dst PSV 98.30 cm/sec Rt ICA Dst EDV 31.80 cm/sec Lt ICA Dst EDV 37.00 cm/sec Rt CCA Prx PSV 68.40 cm/sec Lt CCA Prx PSV 88.60 cm/sec Rt CCA Prx EDV 14.90 cm/sec Lt CCA Prx EDV 19.80 cm/sec Rt CCA Mid PSV 69.40 cm/sec Lt CCA Mid PSV 69.90 cm/sec Rt CCA Mid EDV 22.10 cm/sec Lt CCA Mid EDV 19.50 cm/sec Rt CCA Dst PSV 71.50 cm/sec Lt CCA Dst PSV 61.20 cm/sec Rt CCA Dst EDV 18.50 cm/sec Lt CCA Dst EDV 21.10 cm/sec Rt ECA PSV 105.10 cm/sec Lt ECA PSV 78.10 cm/sec Rt ECA EDV 16.30 cm/sec Lt ECA EDV 11.00 cm/sec Rt Vert PSV 39.20 cm/sec Lt Vert PSV 48.90 cm/sec Rt Vert EDV 11.50 cm/sec Lt Vert EDV 11.90 cm/sec Rt ICA/CCA Ratio 1.24 Lt ICA/CCA Ratio 1.61 Electronically Signed By: Jonathan Solorio MD, [facility] 2023-06-30 18:05:55 CDT us Kenzie Thao Be BRUSHER TENDER IMG US PROCEDURES Final Result documented in this encounter Visit Diagnoses Diagnosis Carotid bruit, unspecified laterality Encounter for screening colonoscopy documented in this encounter Care Teams Trekking Guide Relationship Specialty Start Date End Date Louis Harper DO [address] [address] [place] [address] PCP - General Family Medicine 09/23/21 11/22/23 Phoenix Loredo MD Consulting Physician Cardiology 01/04/19 [place] [address] [place] [address] Orthopedic Cast Specialist Obstetrics and Gynecology 04/19/21 documented as of this encounter
--- OUTSIDE RECORDS SUMMARY | 2024-10-13 04:06 | XMS_ITS | Encounter Summary ---
Author Organization [facility] Healthcare Address [address] [place] [address] Care Team Providers Care Marine Steward Name Role Phone Phoenix Loredo MD Unavailable [phone] Aylin Lundy MD Unavailable [phone] Hraper Myers DO Primary Care Provider [phone] Encounter Details Date Type Department Care Team (Late st Contact Info) Description 06/21/2023 9:20 AM CDT [address] Annual physical exam; Screening for blood or protein in urine; Screening for thyroid disorder; Encounter for lipid screening for cardiovascular disease; Encounter for screening examination for impaired glucose regulation and diabetes mellitus; Encounter for screening for other digestive system disorders; Screening for deficiency anemia Social History Tobacco Use Types Packs/Day Years [...] on file 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 Gender Identity Not on file Sexual Orientation Not on file documented as of this encounter Plan of Treatment Upcoming Encounters Date Type Department Care Team (Late st Contact Info) Description 02/04/2025 9:30 AM CDT Hospital Encounter [address] [address] Vic Gaines, DO [address] [facility] [place] [address] [place] [address] 02/04/2025 9:30 AM CDT - 02/04/2025 10:00 AM CDT Surgery [address] [address] Vic Gaines, DO [address] [facility] [place] [address] [place] [address] COLONOSCOPY Scheduled Procedures Name Priority Associated Diagnoses Date/Ti me COLONOSCOPY Encounter for screening colonoscopy 02/04/2025 9:30 AM CDT documented as of this encounter Procedures Procedure Name Priority Date/Time Associated Diagnosis Comments EGFR Routine 06/21/2023 9:20 AM CDT Annual physical exam Encounter for screening for other digestive system disorders DIFFERENTIAL AUTO Routine 06/21/2023 9:2 0 AM CDT Annual physical exam Screening for deficiency anemia THYROID FUNCTION CASCADE Routine 06/21/2023 9:20 AM CDT Annual physical exam Screening for thyroid disorder URINALYSIS AND REFLEX TO MICROSCOPIC AND CULTURE Routine 06/21/2023 9:20 AM CDT Annual physical exam Screening for blood or protein in urine CBC WITH AUTO DIFFERENTIAL Routine 06/21/2023 9:20 AM CDT Annual physical exam Screening for deficiency anemia HEMOGLOBIN A1C Routine 06/21/2023 9:20 AM CDT Annual physical exam Encounter for screening examination for impaired glucose regulation and diabetes mellitus LIPID PANEL Routine 06/21/2023 9:20 AM CDT Annual physical exam Encounter for lipid screening for cardiovascular disease COMPREHENSIVE METABOLIC PANEL Routine 06/21/2023 9:20 AM CDT Annual physical exam Encounter for screening for other digestive system disorders documented in this encounter Results * eGFR (06/21/2023 9:20 AM CDT) eGFR 72 mL/min/1. 73 m2 [facility] ([place]) Comment: Interpretive Data Reference Interval Normal ?>/= [...] interpretive data was last reviewed 2021. Blood 06/21/2023 9:20 AM CDT 06/21/2023 1:26 PM CDT us Harper Rubio Louis DO LAB BLOOD ORDERABLES Final Result [facility] ([place]) 1 [facility] Department [place] [address] * (ABNORMAL) Differential, auto (06/21/2023 9:20 AM CDT) Neutrophil abs 7.1(H) 1.7 - 6.5 K/cumm [facility] ([place]) Imm gran abs 0.0 0.0 - 0.1 K/cumm [facility] ([place]) Lymphocyte abs 2.3 0.8 - 3.3 K/cumm [facility] ([place]) Monocyte abs 0.8 0.2 - 0.8 K/cumm [facility] ([place]) Eosinophil abs 0.1 0.0 - 0.5 K/cumm [facility] ([place]) Basophil abs 0.0 0.0 - 0.1 K/cumm [facility] ([place]) Neutrophil pct 68.5 % [facility] ([place]) Comment: Interpretive Data Percent cell count reference ranges are not reported, since discordance with absolute values may lead to misinterpretation of CBC data. Current Interpretive Data was last revised on 2018. Imm gran pct 0.3 % [facility] ([place]) Comment: Interpretive Data Percent cell count reference ranges are not reported, since discordance with absolute values may lead to misinterpretation of CBC data. Current Interpretive Data was last revised on 2018. Lymphocyte pct 22.0 % [facility] ([place]) Comment: Interpretive Data Percent cell count reference ranges are not reported, since discordance with absolute values may lead to misinterpretation of CBC data. Current Interpretive Data was last revised on 2018. Monocyte pct 7.6 % [facility] ([place]) Comment: Interpretive Data [...] Data was last revised on 2018. Blood 06/21/2023 9:20 AM CDT 06/21/2023 1:26 PM CDT us Harper Myers DO LAB BLOOD ORDERABLES Final Result [facility] ([place]) 1 [facility] [place] [address] * (ABNORMAL) CBC with auto differential (06/21/2023 [...] ([place]) MCV 94.3 81.3 - 96.4 fL [facility] ([place]) MCH 31.2 27.1 - 33.3 pg [facility] ([place]) MCHC 33.0 32.3 - 35.7 g/dL [facility] ([place]) RDW CV 13.2 11.1 - 14.9 % [facility] ([place]) RDW SD 45.7 35.7 - 48.1 fL [facility] ([place]) NRBC abs 0.00 0.00 - 0.01 K/cumm [facility] ([place]) Blood 06/21/2023 9:20 AM CDT 06/21/2023 1:26 PM CDT us Harper Myers DO LAB BLOOD ORDERABLES Final Result [facility] ([place]) 1 [facility] Department [place] [address] * (ABNORMAL) Comprehensive metabolic panel (06/21/2023 9:20 AM CDT) Sodium 141 135 - 145 mmol/L [facility] ([place]) Potassium, pl 5.0(H) 3.3 - 4.9 mmol/L [facility] ([place]) Chloride 107 97 - 110 mmol/L [facility] ([place]) CO2 24 22 - 32 mmol/L [facility] ([place]) Anion gap 11 2 - 15 mmol/L [facility] ([place]) BUN 12 6 - 25 mg/dL [facility] ([place]) Creatinine 0.92 0.60 - 1.10 mg/dL [facility] ([place]) Glucose 100 70 - 199 mg/dL [facility] ([place]) [...] DO LAB BLOOD ORDERABLES Final Result [facility] ([place]) 1 [facility] [place] [address] * (ABNORMAL) Hemoglobin A1c (06/21/2023 9:20 AM CDT) Hgb A1C 5.7(H) 4.0 - 5.6 % [facility] ([place]) Estimated Average Glucose 117 mg/dL [facility] ([place]) Comment: The ADA recommends reporting an estimated Average Glucose (eAG) with all Hemoglobin A1c results using the equation derived from a study of 507 normal and diabetic adults. ??Minority populations were underrepresented and children were not included. ?? (Diabetes Care 31:8815-2665, 2008). ??The eAG is not equivalent to a fasting glucose. Blood 06/21/2023 9:20 AM CDT 06/21/2023 1:26 PM CDT us Harper Myers DO LAB BLOOD ORDERABLES Final Result [facility] ([place]) 1 [facility] [place] [address] * (ABNORMAL) Lipid panel (06/21/2023 9:20 AM CDT) Cholesterol 145 30 - 199 mg/dL [facility] ([place]) Comment: Interpretive Data [...] LAB BLOOD ORDERABLES Final Result [facility] ([place]) 1 [facility] Department [place] [address] * TSH reflex to free T4 (06/21/2023 9:20 AM CDT) TSH 0.99 0.30 - 4.20 mcIUnit/mL [facility] ([place]) Blood 06/21/2023 9:20 AM CDT 06/21/2023 1:26 PM CDT Harper Myers DO LAB BLOOD ORDERABLES Final Result [facility] ([place]) 1 [facility] Department [place] [address] * Urinalysis reflex to microscopic and culture [...] [facility] ([place]) Leukocyte esterase, ur Negative Negative [facility] ([place]) UA reflex comment Reflex conditions for microscopic UA and culture not met. [facility] ([place]) Urine, clean voided 06/21/2023 9:20 AM CDT 06/21/2023 1:26 PM CDT Narrative [facility] ([place]) - 06/21/2023 1:31 PM CDT ?? Urine pH is affected by diet, medications, systemic acid-base disturbances, and renal tubular function. ??pH may affect urinary stone formation. ??For example, urine pH below 6.0 may help reduce the tendency for calcium phosphate stones and pH greater than 6.0 may reduce the tendency for uric acid stone formation. Source: [place] [employer]. Last revised 10-19-2017 us Harper Myers DO LAB MICROBIOLOGY - GENERAL ORDERABLES Final Result [facility] ([place]) 1 [facility] Department [place] [address] documented in this encounter Visit Diagnoses Diagnosis Annual physical exam Routine general medical examination [...] colonoscopy documented in this encounter Care Teams Marine Steward Relationship Specialty [place] [address] [place] [address] PCP - General Family Medicine 09/23/21 11/22/23 Phoenix Loredo MD Consulting Physician Cardiology 01/04/19 [place] [address] [place] [address] Health Care Coordinator Obstetrics and Gynecology 04/19/21 documented as of this encounter
--- OUTSIDE RECORDS SUMMARY | 2024-10-13 04:06 | XMS_ITS | Encounter Summary ---
Author Organization [facility] Healthcare Address [address] [place] [address] Care Team Providers Care Noise Tester Name Role Phone Phoenix Loredo MD Unavailable Aylin Lundy MD Unavailable [phone] Karson Forbes MD Primary Care Provider [phone] Reason for Visit * Reason Comments Sinus Problem Sinus pressure, nasa l discharge, CHOWDHURY, productive cough x 3.5 weeks Encounter Details Date Type Department Care Team (Late st Contact Info) Description 01/04/2024 5:00 PM CDT Office Visit [facility] at [address] [place] [id number] Ingrid Dominguez, PUPPET DEVELOPER [address] [place] [address] Acute non-recurrent pansinusitis (Primary Dx) Social History Tobacco Use Types [...] on file 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 Gender Identity Not on file Sexual Orientation Not on file documented as of this encounter Last Filed Vital Signs Vital Sign Reading Time Taken Comments Blood Pressure 116/62 01/04/2024 4:55 PM CDT Pulse 87 01/04/2024 4:55 PM CDT Temperature 36.8 ??C (98.2 ??F) 01/04/2024 4:55 PM CD T Respiratory Rate 16 01/04/2024 4:55 PM CDT Oxygen Saturation 98% 01/04/2024 4:55 PM CDT Inhaled Oxygen Concentration - - Weight 67.1 kg (148 lb) 01/04/2024 4:55 PM CDT Height 152.4 cm (5') 01/04/2024 4:55 PM CDT Body Mass Index 28.9 01/04/2024 4:55 PM CDT documented in this encounter Patient Instructions * Patient Instructions* Ingrid Dominguez NP - 01/04/2024 5:00 PM CDT Thank you for allowing me to take care of you today. Diagnosis Sinusitis. Prescribed Augmentin. Home care includes rest, hydration, over the counter medications. Follow up with your primary provider in 2-3 days as needed. Red flags include worsening symptoms including pain, swelling, headache, dizziness, congestion, fever, shortness of breath, chest pain, nausea/vomiting, abdomen pain, back pain, muscle pain, decreased range of motion, numbness/tingling, weakness, fatigue. Follow up with your primary provider, this clinic, or if severe go to ER. * Attachments The following attachments cannot be sent through Care Everywhere. * Sinusitis (AfterCare(R) Instructions(ER/ED)) (Malian) documented in this encounter Ordered Prescriptions Prescription Sig Dispense Quantity Refills Last Filled Start Date End Date amoxicillin-clavul anate (AUGMENTIN) 875-125 mg per tabletIndications: Acute non-recurrent pansinusitis Take 1 tablet by mouth 2 (two) times a day for 10 days 20 tablet 01/04/2024 01/14/2024 documented in this encounter Progress Notes * Ingrid Dominguez NP - 01/04/2024 5:00 PM CDT Images from the original note were not included. Subjective/Objective Patient ID: Mirtha Cherry is a 58 y.o. female. Chief Complaint Sinus Problem (Sinus pressure, nasal discharge, CHOWDHURY, productive cough x 3.5 weeks) Patient is a 58-year-old female presents to [facility] with a chief complaint of sinus pressure, nasal drainage, headache, productive cough x3.5 weeks. Patient stated that the symptoms started more as like allergies, then they progressed to having greenish colored phlegm. Reports that the postnasal drip is worse at night. States it makes her cough, she does wake up throughout the night due to the drainage. Reports she has had pressure in her ears. Patient has tried honey to help relieve the symptoms. States she does get sinusitis yearly. Did try Sudafed, Mucinex, nasal spray, nasal rinsetwice a day. Review of system: All systems reviewed and are negative or noncontributory for this patient's presentation today other than as stated in HPI. Physical Exam Vitals and nursing note reviewed. Constitutional: General: She is not in acute distress. Appearance: Normal appearance. She is normal weight. She is not ill-appearing, toxic-appearing or diaphoretic. HENT: Head: Normocephalic and atraumatic. Comments: Noted pain on palpation to frontal and maxillary sinus region Right Ear: Tympanic membrane, ear canal and external ear normal. There is no impacted cerumen. Left Ear: Tympanic membrane, ear canal and external ear normal. There is no impacted cerumen. Ears: Comments: Noted increased fluid behind bilateral TMs Nose: Nose normal. No congestion or rhinorrhea. Mouth/Throat: Mouth: Mucous membranes are moist. Pharynx: Oropharynx is clear. Posterior oropharyngeal erythema present. No oropharyngeal exudate. Eyes: Conjunctiva/sclera: Conjunctivae normal. Pupils: Pupils are equal, round, and reactive to light. Cardiovascular: Rate and Rhythm: Normal rate and regular rhythm. Heart sounds: Normal heart sounds. Pulmonary: Effort: Pulmonary effort is normal. No respiratory distress. Breath sounds: Normal breath sounds. No stridor. No wheezing, rhonchi or rales. Chest: Chest wall: No tenderness. Abdominal: General: There is no distension. Musculoskeletal: General: Normal range of motion. Cervical back: Normal range of motion and neck supple. Skin: General: Skin is warm and dry. Neurological: General: No focal deficit present. Mental Status: She is alert and oriented to person, place, and time. Mental status is at baseline. Psychiatric: Mood and Affect: Mood normal. Behavior: Behavior normal. Thought Content: Thought content normal. Judgment: Judgment normal. Vitals: 01/04/24 1655 BP: 116/62 Pulse: 87 Resp: 16 Temp: 36.8 ??C (98.2 ??F) SpO2: 98% Weight: 67.1 kg (148 lb) Height: 152.4 cm (5') Assessment/Plan Diagnosis Sinusitis. Patient instructions/education: Sinusitis Prescribed Augmentin. Talked to patient about prednisone. Patient reports last time she took prednisone for sinus infection it did put her into a fib. No prednisone was prescribed at this time. Home care includes rest, hydration, over the counter medications. Follow up with your primary provider in 2-3 days as needed. Red flags include worsening symptoms including pain, swelling, headache, dizziness, congestion, fever, shortness of breath, chest pain, nausea/vomiting, abdomen pain, back pain, muscle pain, decreased range of motion, numbness/tingling, weakness, fatigue. Follow up with your primary provider, this clinic, or if severe go to ER. Procedures Disposition- Patient presents with sinus pressure. Patient is nontoxic-appearing and in no acute distress. Vitals signs are stable. Discussed point of care test results with patient, lab test, X-rays that may have been completed or ordered during clinic visit. Given the history and physical exam findings, presen tation/diagnosis is sinusitis. The Differential diagnosis includes URI, Influenza, allergic rhinitis, seasonal allergies, chronic rhinitis, sinusitis, COVID, RSV. However, these differential diagnosis are less likely given the data, history and physical exam. Supportive care was discussed includingrest, hydration, [id number]-hmi-yfbetaj meds to help with symptoms. Augmentin was prescribed. Discussed medications dosages, usage & potential side effects. Advised close follow up and return criteria/red flags were discussed. Risks and interactions reviewed with patient. Patient has been instructed to follow up w PCP or go to ER for any signs or symptoms that are of concern or worsening. Understanding of discharge instructions verbalized, and agrees with plan of care. The patient was given the opportunity to ask all questions and to have all questions answered. This note is dictated and transcribed by [employer]. Financial Internship variances may occur. Despite proofreading, typographical errors may occur. Ingrid Dominguez NP documented in this encounter Plan of Treatment Upcoming Encounters Date Type Department Care Team (Late st Contact Info) Description 02/04/2025 9:30 AM CDT Hospital Encounter [address] [address] Vic Gaines, DO [address] [address] 02/04/2025 9:30 AM CDT - 02/04/2025 10:00 AM CDT Surgery [address] [address] Vic Gaines, DO [address] [place] [address] [place] [address] COLONOSCOPY Scheduled Procedures Name Priority Associated Diagnoses Date/Ti me COLONOSCOPY Encounter for screening colonoscopy 02/04/2025 9:30 AM CDT documented as of this encounter Visit Diagnoses Diagnosis Acute non-recurrent pansinusitis- Primary Encounter for screening colonoscopy documented in this encounter Care Teams Noise Tester Relationship Specialty Start Date End Date Karson Forbes MD [address] [place] [address] PCP - General Family Medicine 11/23/23 Phoenix Loredo MD Consulting Physician Cardiology 01/04/19 [place] [address] [place] [address] Independent Beauty Consultant Obstetrics and Gynecology 04/19/21 documented as of this encounter
--- OUTSIDE RECORDS SUMMARY | 2024-10-13 04:06 | XMS_ITS | Encounter Summary ---
Author Organization [facility] Healthcare Address [address] [place] [address] Care Team Providers Care Big 6 Dealer Name Role Phone Phoenix Loredo MD Unavailable [phone] Aylin Lundy MD Unavailable [phone] Harper Myers DO Primary Care Provider [phone] Reason for Referral * Diagnostic Imaging (Routine) - Closed Specialty Diagnoses / Procedures Referred By Contac t Referred To Contact Diagnoses Atherosclerosis of robinson arteries of extremities with intermittent claudication, bilateral legs (HCC) Procedures US ABE Kenzie Be NP [address] [facility] [address] [place] [address] Phone: tel: fax: [address] [phone] Referral ID Status Reason Start Date Expiration Date Visits Re quested Visits Authorized [id number] Closed 12/26/2022 01/25/2024 1 1 Reason for Visit * Diagnostic Imaging (Routine) - Closed Specialty Diagnoses / Procedures Referred By Contac neeraj Referred To Contact Diagnoses Atherosclerosis of robinson arteries of extremities with intermittent claudication, bilateral legs (HCC) Procedures US ABE Kenzie Be NP [address] [facility] [address] [place] [place] [address] Phone: tel: fax: [facility] [address] [place] [address] Referral ID Status Reason Start Date Expiration Date Visits Re quested Visits Authorized [id number] Closed 12/26/2022 01/25/2024 1 1 Encounter Details Date Type Department Care Team (Latest Contact Info) Description 06/30/2023 7:52 AM CDT - 06/30/2023 11:59 PM CDT Hospital Encounter [facility] [address] [place] [address] Atherosclerosis of robinson arteries of extremities with intermittent claudication, bilateral [...] on file 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 Gender Identity Not on file Sexual [...] Description 02/04/2025 9:30 AM CDT Hospital Encounter [address] [address] Vic Gaines, DO 3 [facility] [address] [place] [address] 02/04/2025 9:30 AM CDT - 02/04/2025 10:00 AM CDT Surgery [facility] [address] [place] [address] Vic Gaines, DO 3 [facility] [address] [place] [address] COLONOSCOPY Scheduled Procedures Name Priority Associated Diagnoses Date/Ti me COLONOSCOPY Encounter for screening colonoscopy 02/04/2025 9:30 AM CDT documented as of this encounter Procedures Procedure Name Priority Date/Time Associated Diagnosis Comments US ABE Schedule Routine, Read Routine (OP Routine) 06/30/2023 8:35 AM CDT Atherosclerosis of robinson arteries of extremities with intermittent claudication, bilateral legs (HCC) documented in this encounter Results * US ABE (06/30/2023 8:35 AM CDT) Anatomical Region Laterality Modality Vascular N/A Ultrasound 06/30/2023 8:12 AM CDT Narrative 06/30/2023 9:00 AM CDT [address] [address] Ankle Brachial Index Report Patient Name: MOSHE HARTLEY ?? : 1965 (58y 2m) ??Gender: F Study Date: 06/30/2023 8:12:00 AM Aquarium Tank Attendant: Lavon Provider: KENZIE BE Quality: Adequate Ref.Provider: KENZIE BE Procedures: Arterial Report: A bilateral extremities ankle/brachial index was performed. Indications: Claudication. Conclusions: 1. No evidence of arterial insufficiency in the right lower extremity with ankle-brachial index of 1.09. Triphasic waveform at the ankle. 2. No arterial insufficiency at rest in the left lower extremity with ankle- brachial index 0.93. Biphasic waveform at the ankle. Findings: Measurements: RightValueLeftValue Electronically Signed By: Phoenix Loredo MD 2023-06-30 09:00:32 CDT Procedure Note Phoenix Loredo MD - 06/30/[address] [address] Ankle Brachial Index Report Patient Name: Adry HARTLEY ID: [id number] : 1965 (58y 2m) Gender: FStudy Date: 06/30/2023 8:12:00 AM Lavon Provider: KENZIE BEQuality: Adequate Ref.Provider: KENZIE BE Procedures: Arterial Report: A bilateral extremities ankle/brachial index wasperformed. Indications: Claudication. Conclusions: 1. No evidence of arterial insufficiency in the right lower extremity withankle-brachial index of 1.09. Triphasic waveform at the ankle. 2. No arterial insufficiency at rest in the left lower extremity withankle- brachial index 0.93. Biphasic waveform at the ankle. Findings: Measurements: RightValueLeftValue Electronically Signed By: Phoenix Loredo MD 2023-06-30 09:00:32 CDT us Kenzie Thao Be RETAIL LEADER IMG US PROCEDURES Final Result documented in this encounter Visit Diagnoses Diagnosis Atherosclerosis of robinson arteries of extremities with intermittent claudication, bilateral legs (HCC) Encounter for screening colonoscopy documented in this encounter Care Teams Big 6 Dealer Relationship Specialty [place] [address] [place] [address] PCP - General Family Medicine 09/23/21 11/22/23 Phoenix Loredo MD Consulting Physician Cardiology 01/04/19 [place] [address] [place] [address] Link Fabric Machine Operator Obstetrics and Gynecology 04/19/21 documented as of this encounter
--- OUTSIDE RECORDS SUMMARY | 2024-10-13 04:07 | XMS_ITS | Encounter Summary ---
Author Organization [facility] Address [address] [facility] [address] [facility] [address] [place] [address] Care Team Providers Care Registered Pharmacy Technician Name Role Phone Phoenix Loredo MD Unavailable [phone] Aylin Lundy MD Unavailable [phone] Harper Myers DO Primary Care Provider [phone] Reason for Visit * Reason Comments Rash Pt c/o of facial ru h post 1 week. Pt reports itching Encounter Details Date Type Department Care Team (Late st Contact Info) Description 12/09/2021 9:30 AM CEMENT KILN OPERATOR Office Visit [facility] [address] [facility] [place] [address] [place] [address] Umu Lyon, DEENA [address] [id number] Impetigo (Primary Dx) Social History Tobacco Use Types Packs/Day Years Used Date Smoking Tobacco: Every Day Cigarettes 1 40 Smokeless Tobacco: Never Comments:Smoking History Pac ks/day: 0.5 Packs Alcohol Use Standard Drinks/Week Comments No 0 [...] points, staff should administer the PHQ-9) 0 10/29/2021 Comments No Sex and Gender Information Value Date Recorded Sex Assigned at Not on file Legal Sex Female 8:44 AM CEMENT KILN OPERATOR Gender Identity Not on file Sexual Orientation Not on file documented as of this encounter Last Filed Vital Signs Vital Sign Reading Time Taken Comments Blood Pressure 122/68 12/09/2021 9:39 AM CEMENT KILN OPERATOR Pulse 65 12/09/2021 9:39 AM CEMENT KILN OPERATOR Temperature 37.6 ??C (99.6 ??F) 12/09/2021 9:39 AM CS T Respiratory Rate 18 12/09/2021 9:39 AM CEMENT KILN OPERATOR Oxygen Saturation 97% 12/09/2021 9:39 AM CEMENT KILN OPERATOR Inhaled Oxygen Concentration - - Weight 74.8 kg (165 lb) 12/09/2021 9:39 AM CEMENT KILN OPERATOR Height 154.9 cm (5' 1 ) 12/09/2021 9:39 AM CEMENT KILN OPERATOR Body Mass Index 31.18 12/09/2021 9:39 AM CEMENT KILN OPERATOR documented in this encounter Patient Instructions * Patient Instructions* Umu Lyon PA - 12/09/2021 9:30 AM CEMENT KILN OPERATOR Images from the original note were not included. Wash your face with antibacterial soap and keep it clean and dry. Use the antibiotic ointment as prescribed. Take the hydroxyzine as prescribed. Do not drink alcohol, drive, or operate machinery while taking this medication, as it can cause drowsiness. It is very important that you try to avoid washing her face. Wash your hands often, especially after touching your face. Follow-up with your primary care provider. Patient Education Impetigo FLIGHT NURSE: Impetigo is a skin infection caused by bacteria. The infection can cause sores to form anywhere on your body. The sores develop watery or pus-filled blisters that break and form thick crusts. Impetigo is most common in children and spreads easily from person to person. Seek care immediately if: ?? You have painful, red, warm skin around the blisters. ?? Your face is swollen. ?? You urinate less than usual or there is blood in your urine. Contact your healthcare provider if: ?? You have a fever. ?? The sores become more red, swollen, warm, or tender. ?? The sores do not start to heal after 3 days of treatment. ?? You have questions or concerns about your condition or care. Treatment for impetigo includes antibiotics to treat the bacterial infection. Antibiotics may be given as a pill or cream. Wash your skin and gently remove any crusts before you apply the antibiotic cream. Clean your sores safely: Wash your skin sores with antibacterial soap and water. You may need to dothis 2 to 3 times each day until the sores heal. If the area is crusted, gently wash the sores withgauze or a clean washcloth to remove the crust. Pat the area dry with a clean towel. Wash your hands, the washcloth, and the towel after you clean the area around the sores. Prevent the spread of impetigo: ?? Avoid direct contact. You can spread impetigo if someone touches or uses something that touched your infected skin. You can also spread impetigo on your own body when you touch the area and then touch somewhere else. Keep the sores covered with gauze so you will not scratch or touch them. Keep your fingernails short. Your child may need to wear mittens so he does not scratch his sores. ?? Wash your hands often. Always wash your hands after you touch the infected area. Wash your handsbefore you touch food, your eyes, or other people. If no water is available, use an alcohol-based gel to clean your hands. ?? Wash household items. Do not share or reuse items that have come in contact with impetigo sores.Examples include bedding, towels, washcloths, and eating utensils. These items may be used again after they have been washed with hot water and soap. Return to work or school: You may return to work or school 48 hours after you start the antibiotic medicine. If your child has impetigo, tell his school or daycare center about the infection. Follow up with your healthcare provider as directed: Write down your questions so you remember to ask them during your visits. ?? 2017 [employer] Information is for End User's use only and may not be sold, redistributed or otherwise used for commercial purposes. All illustrations and images included in CareNotes?? are the copyrighted property of [employer]. or Dr. Z. The above information is an nursing aide only. It is not intended as medical advice for individual conditions or treatments. Talk to your doctor, nurse or pharmacist before following any medical regimen to see if it is safe and effective for you. NT KILN OPERATOR NT KILN OPERATOR NT KILN OPERATOR documented in this encounter Ordered Prescriptions Prescription Sig Dispense Quantity Refills Last Filled Start Date End Date hydrOXYzine (ATARAX) 25 mg tabletIndications: Impetigo Take 1 tablet (25 mg total) by mouth every 8 (eight) hours as needed for itching 20 tablet 12/09/2021 2 mupirocin (BACTROBAN) 2 % ointmentIndication s:Impetigo Apply topically 3 (three) times a day for 5 days 22 g 12/09/2021 2 documented in this encounter Progress Notes * Umu Lyon PA - 12/09/2021 9:30 AM CST Images from the original note were not included. Subjective/Objective Patient ID: Mirtha Cherry is a 56 y.o. female. Chief Complaint Rash (Pt c/o of facial rash post 1 week. Pt reports itching ) Patient is a 56-year-old female who presents with an itchy rash to her face, onset six days ago. She states that the rash weeps and becomes crusty. She states that it is not painful, but is very itchy. She denies any rashes elsewhere. She also denies a fever, throat swelling, difficulty swallowing, difficulty breathing, or any known new exposures. Review of Systems Constitutional: Negative for fever. HENT: Negative for trouble swallowing. Respiratory: Negative for shortness of breath. Skin: Positive for rash. Physical Exam Constitutional: General: She is not in acute distress. Appearance: Normal appearance. She is not ill-appearing. HENT: Head: Normocephalic. Eyes: General: Lids are normal. Extraocular Movements: Extraocular movements intact. Conjunctiva/sclera: Conjunctivae normal. Pupils: Pupils are equal, round, and reactive to light. Cardiovascular: Rate and Rhythm: Normal rate and regular rhythm. Heart sounds: Normal heart sounds. Pulmonary: Effort: Pulmonary effort is normal. Breath sounds: Normal air entry. Musculoskeletal: General: Normal range of motion. Cervical back: Normal range of motion and neck supple. Skin: General: Skin is warm and dry. Findings: Rash (Erythematous rash to the face with 1 area to the philtrum, area to the left of the nasal fold, and to the chin with honey-crusted lesions throughout. No bullae present) present. Neurological: General: No focal deficit present. Mental Status: She is alert and oriented to person, place, and time. Mental status is at baseline. Psychiatric: Mood and Affect: Mood normal. Behavior: Behavior normal. Vitals: 12/09/21 0939 BP: 122/68 Pulse: 65 Resp: 18 Temp: 37.6 ??C (99.6 ??F) TempSrc: Oral SpO2: 97% Weight: 74.8 kg (165 lb) Height: 154.9 cm (5' 1 ) Assessment/Plan Wash your face with antibacterial soap and keep it clean and dry. Use the antibiotic ointment as prescribed. Take the hydroxyzine as prescribed. Do not drink alcohol, drive, or operate machinery while taking this medication, as it can cause drowsiness. It is very important that you try to avoid washing her face. Wash your hands often, especially after touching your face. Follow-up with your primary care provider. Diagnoses and all orders for this visit: Impetigo (Primary) - mupirocin (BACTROBAN) 2 % ointment; Apply topically 3 (three) times a day for 5 days - hydrOXYzine (ATARAX) 25 mg tablet; Take 1 tablet (25 mg total) by mouth every 8 (eight) hours as needed for itching No results found for this or any previous visit (from the past 4 hour(s)). Patient Education: Disposition ??? Treatment plan including expectations, follow up, and return precautions discussed with patient/parent, verbalizes understanding. ??? Medication dosage, use, and potential adverse reactions discussed with patient/parent. ??? Advised to follow up with PCP if symptoms do not resolve as expected or sooner if condition worsens. ??? Signs/symptoms warranting ER evaluation reviewed. ??? Patient and/or guardian was given an opportunity to ask questions, questions answered. DEENA Méndez PA Cosigned by Harper Myers DO at 12/13/2021 4:07 PM CEMENT KILN OPERATOR NT KILN OPERATOR NT KILN OPERATOR documented in this encounter Plan of Treatment Upcoming Encounters Date Type Department Care Team (Late st Contact Info) Description 02/04/2025 9:30 AM CDT Hospital Encounter [address] [address] Vic Gaines, DO [address] [address] 02/04/2025 9:30 AM CDT - 02/04/2025 10:00 AM CDT Surgery [address] [address] Vic Gaines, DO [address] [address] COLONOSCOPY Scheduled Procedures Name Priority Associated Diagnoses Date/Ti me COLONOSCOPY Encounter for screening colonoscopy 02/04/2025 9:30 AM CDT documented as of this encounter Visit Diagnoses Diagnosis Impetigo- Primary Encounter for screening colonoscopy documented in this encounter Care Teams Registered Pharmacy Technician Relationship Specialty [place] [address] [place] [address] PCP - General Family Medicine 09/23/21 11/22/23 Phoenix Loredo MD Consulting Physician Cardiology 01/04/19 [place] [address] [place] [address] Child Care Provider Obstetrics and Gynecology 04/19/21 documented as of this encounter
--- OUTSIDE RECORDS SUMMARY | 2024-10-13 04:07 | XMS_ITS | Encounter Summary ---
Author Organization [facility] Address [address] [place] [address] Care Team Providers Care Pug Mill Operator Name Role Phone Phoenix Loredo MD Unavailable [phone] Aylin Lundy MD Unavailable [phone] Harper Myers DO Primary Care Provider [phone] Encounter Details Date Type Department Care Team (Late st Contact Info) Description 12/09/2022 Telephone [facility] [address] [place] [address] Gwen Moore, Social History Tobacco Use Types Packs/Day Years [...] staff should administer the PHQ-9) 0 06/20/2022 Comments No Sex and Gender Information Value Date Recorded Sex Assigned at Not on file Legal Sex Female 8:44 AM ICE SCRAPER Gender Identity Not on file Sexual Orientation Not on file documented as of this encounter Miscellaneous Notes * Telephone Encounter - Gwen Moore RT - 12/09/2022 10:59 AM CST Confirmed appt SCRAPER documented in this encounter Plan of Treatment Upcoming Encounters Date Type Department Care Team (Late st Contact Info) Description 02/04/2025 9:30 AM CDT Hospital Encounter [address] [address] Vic Gaines, DO 3 [facility] [address] [place] [address] 02/04/2025 9:30 AM CDT - 02/04/2025 10:00 AM CDT Surgery [address] [address] Vic Gaines, DO 3 [facility] [address] [place] [address] COLONOSCOPY Scheduled Procedures Name Priority Associated Diagnoses Date/Ti me COLONOSCOPY Encounter for screening colonoscopy 02/04/2025 9:30 AM CDT documented as of this encounter Visit Diagnoses Not on filedocumented in this encounter Care Teams Pug Mill Operator Relationship Specialty Start Date End Date Lenora Myerse DO [facility] [address] [place] [id number] PCP - General Family Medicine 09/23/21 11/22/23 Phoenix Loredo MD Consulting Physician Cardiology 01/04/19 Aylin Lundy MD [address] [place] [address] Force Adjustment Supervisor Obstetrics and Gynecology 04/19/21 documented as of this encounter
--- OUTSIDE RECORDS SUMMARY | 2024-10-13 04:07 | XMS_ITS | Encounter Summary ---
Author Organization [facility] Address [address] [facility] [address] [place] [address] Care Team Providers Care Bessemer Bottom Maker Name Role Phone Phoenix Loredo MD Unavailable Aylin Lundy MD Unavailable [phone] Harper Myers DO Primary Care Provider [phone] Reason for Visit * Reason Comments Pneumonia Still having left si ded ear fullness, productive cough (better than it was) Encounter Details Date Type Department Care Team (Late st Contact Info) Description 02/15/2023 7:45 AM CDT Office Visit [facility] Primary Care at [address] [place] [address] Flo Asher MD [address] [place] [address] [address] [place] [address] Pneumonia due to infectious organism, unspecified laterality, unspecified part of lung (Primary Dx); Seasonal allergic rhinitis, unspecified trigger; Sinus pressure; Multiple-type hyperlipidemia Social History Tobacco Use Types [...] on file Legal Sex Female 8:44 AM INVESTOR RELATIONS COORDINATOR Gender Identity Not on file Sexual Orientation Not on file documented as of this encounter Last Filed Vital Signs Vital Sign Reading Time Taken Comments Blood Pressure 104/76 02/15/2023 7:50 AM CDT Pulse 78 02/15/2023 7:50 AM CDT Temperature - - Respiratory Rate 14 02/15/2023 7:50 AM CDT Oxygen Saturation 96% 02/15/2023 7:50 AM CDT Inhaled Oxygen Concentration - - Weight 68.5 kg (151 lb) 02/15/2023 7:50 AM CDT Height 154.9 cm (5' 0.98 ) 02/15/2023 7:50 AM CD T Body Mass Index 28.55 02/15/2023 7:50 AM CDT documented in this encounter Ordered Prescriptions Prescription Sig Dispense Quantity Refills Last Filled Start Date End Date predniSONE (DELTASONE) 20 mg tablet Take 2 tablets (40 mg) by mouth daily for 5 days 10 tablet 02/15/2023 3 documented in this encounter Progress Notes * Flo Asher MD - 02/15/2023 7:45 AM CDT Images from the original note were not included. Subjective/Objective Patient ID: Mirtha Cherry is a 57 y.o. female. Chief Complaint Pneumonia (Still having left sided ear fullness, productive cough (better than it was)) HPI: Mirtha Cherry 57 y.o. woman has a past medical history of Asthma, Dysphagia, Gastroesophageal reflux disease, OTHER MEDICAL, OTHER MEDICAL, OTHER MEDICAL (2009), OTHER MEDICAL, OTHER MEDICAL, OTHER MEDICAL, OTHER MEDICAL, OTHER MEDICAL, Hypercholesterolemia, and Peripheral vascular disease (HCC). who presents for follow up of pneumonia States that she was dx last Monday with pnuemonia. Still feels pressure on her face/sinus, stillfeels stuffed States that she is also having some PND PHQ Screening Allergies Allergen Reactions Adhesive Rash Reaction: Rash, Codeine Nausea only, Nausea Only and Unknown Reaction: Nausea, Adhesive Tape-Silicones Itching, Other (See comments) and Unknown blisters Povidone-Iodine Itching Current Outpatient Medications Medication Sig Dispense Refill aspirin 81 mg enteric coated tablet Take 1 tablet (81 mg total) by mouth daily 90 tablet 3 atorvastatin (LIPITOR) 40 mg tablet Take 1 tablet (40 mg total) by mouth daily 90 tablet 3 cefdinir (OMNICEF) 300 mg capsule Take 1 capsule (300 mg total) by mouth 2 (two) times a day for 7 days 14 capsule 0 clopidogreL (PLAVIX) 75 mg tablet TAKE 1 TABLET(75 MG) BY MOUTH DAILY 90 tablet 3 coenzyme Q10 (CO Q-10) 200 mg capsule Take 1 capsule by oral route every day 0 0 fluticasone propionate (FLONASE) 50 mcg/actuation nasal spray Administer 1 spray into each nostril daily 16 g 11 glycopyrrolate-formoteroL (Bevespi Aerosphere) 9-4.8 mcg inhaler Inhale 2 puffs 2 (two) times a day32.1 g 3 Lactobacillus acidophilus (PROBIOTIC) 10 billion cell capsule Take 1 capsule by oral route every day 0 0 loratadine (CLARITIN) 10 mg tablet Take 1 tablet (10 mg total) by mouth daily metoprolol XL (TOPROL-XL) 50 mg extended release tablet TAKE 1 TABLET(50 MG) BY MOUTH DAILY 90 tablet 3 multivitamin capsule Take 1 capsule by mouth daily SUMAtriptan (IMITREX) 50 mg tablet May repeat dose once in 2 hours if no relief. Do not exceed 2 doses in 24 hours. 9 tablet 3 albuterol (PROVENTIL,VENTOLIN) 2.5 mg /3 mL (0.083 %) nebulizer solution Take 3 mL (2.5 mg total) by nebulization every 6 (six) hours as needed for wheezing (Patient not taking: Reported on 02/08/2023)75 mL 2 albuterol HFA (PROVENTIL HFA,VENTOLIN HFA,PROAIR HFA) 90 mcg/actuation inhaler Inhale 2 puffs every6 (six) hours as needed for wheezing (Patient not taking: Reported on 12/26/2022) 1 each 2 famotidine (Pepcid) 40 mg tablet Take 1 tablet (40 mg total) by mouth nightly (Patient not taking: Reported on 12/26/2022) 90 tablet 3 pimecrolimus (ELIDEL) 1 % cream Apply topically 2 (two) times a day (Patient not taking: Reported on 12/26/2022) 30 g 1 No current facility-administered medications for this visit. Review of Systems Constitutional: Negative for chills and fever. HENT: Positive for congestion, postnasal drip, rhinorrhea and sinus pressure. Respiratory: Positive for choking. Negative for cough, chest tightness and shortness of breath. Cardiovascular: Negative for chest pain and palpitations. Gastrointestinal: Negative for abdominal pain and diarrhea. Genitourinary: Negative for difficulty urinating. Neurological: Negative for headaches. BP 104/76 (BP Location: Left arm, Patient Position: Sitting) Pulse 78 Resp 14 Ht 154.9 cm (5'0.98 ) Wt 68.5 kg (151 lb) LMP (LMP Unknown) SpO2 96% BMI 28.55 kg/m?? Body mass index is 28.55 kg/m??. Physical Exam Constitutional: Appearance: Normal appearance. Cardiovascular: Rate and Rhythm: Normal rate and regular rhythm. Pulses: Normal pulses. Heart sounds: Normal heart sounds. Pulmonary: Effort: Pulmonary effort is normal. Breath sounds: Normal breath sounds. Musculoskeletal: General: Normal range of motion. Cervical back: Neck supple. Skin: General: Skin is warm and dry. Neurological: Mental Status: She is alert and oriented to person, place, and time. Lab Results Component Value Date WBC 7.7 06/20/2022 HGB 16.0 (H) 06/20/2022 HCT 45.9 (H) 06/20/2022 MCV 90.7 06/20/2022 LABPLAT 214 06/20/2022 Chemistry Lab Results Component Value Date SODIUM 142 06/20/2022 POTASSIUM 4.6 06/20/2022 CHLORIDE 108 06/20/2022 CO2 23 06/20/2022 ANIONGAP 11 06/20/2022 BUNSER 10 06/20/2022 CREATININE 0.85 06/20/2022 GLUCOSE 106 06/20/2022 CALCIUM 9.4 06/20/2022 BILITOT 0.4 06/20/2022 PROTEIN 6.6 06/03/2017 ALBUMIN 4.4 06/20/2022 GFRNAA 79 06/20/2022 ALKPHOS 100 06/20/2022 AST 21 06/20/2022 ALT 18 06/20/2022 MAGNESIUM 2.1 01/07/2016 Lab Results Component Value Date HGBA1C 5.6 06/20/2022 HGBA1C 5.8 (H) 11/18/2014 Lab Results Component Value Date LDLCALC 79 06/20/2022 CREATININE 0.85 06/20/2022 Lab Results Component Value Date CHOL 143 [...] for: POCNONHDL No results found for: POCCHLPL Assessment/Plan Diagnoses and all orders for this visit: Pneumonia due to infectious organism, unspecified laterality, unspecified part of lung (Primary) Comments: resolving, some sx still present one day left of abx recheck xray in about 2 weeks if sx not resolved or earlier if worsening Orders: - XR Chest PA Lateral 2 Views; Future Seasonal allergic rhinitis, unspecified trigger Sinus pressure Comments: lijkely 2/2 to allergies/allergic rhinits or post pneumonia will do course of steroids to see if it improves sinus, and cough Multiple-type hyperlipidemia Assessment & Plan: Lab Results Component Value Date CHOL 143 [...] current regimen lipitor 40 mg every day Other orders - predniSONE (DELTASONE) 20 mg tablet; Take 2 tablets (40 mg) by mouth daily for 5 days No follow-ups on file. documented in this encounter Miscellaneous Notes * Assessment & Plan Note - Flo Asher MD - 02/15/2023 8:08 AM CDTAssociated Problem(s): Multiple-type hyperlipidemia (Deleted) Lab Results Component Value Date CHOL 143 [...] current regimen lipitor 40 mg every day * Assessment & Plan Note - Karson Forbes MD - 02/15/2023 7:45 AM CDT Associated Problem(s): Hyperlipidemia >>ASSESSMENT AND PLAN FOR MULTIPLE-TYPE HYPERLIPIDEMIA WRITTEN ON 02/15/2023 8:08 AM BY FLO ASHER MD Lab Results Component Value Date CHOL [...] current regimen lipitor 40 mg every day documented in this encounter Plan of Treatment Upcoming Encounters Date Type Department Care Team (Late st Contact Info) Description 02/04/2025 9:30 AM CDT Hospital Encounter [address] [address] Vic Gaines, DO [address] [address] 02/04/2025 9:30 AM CDT - 02/04/2025 10:00 AM CDT Surgery [address] [address] Vic Gaines, DO [address] [address] COLONOSCOPY Scheduled Procedures Name Priority Associated Diagnoses Date/Ti me COLONOSCOPY Encounter for screening colonoscopy 02/04/2025 9:30 AM CDT documented as of this encounter Visit Diagnoses Diagnosis Pneumonia due to infectious organism, unspecified laterality, unspecified part of lung- Primary Seasonal allergic rhinitis, unspecified trigger Sinus pressure Other diseases of nasal cavity and sinuses Multiple-type hyperlipidemia Other and unspecified hyperlipidemia Encounter for screening colonoscopy documented in this encounter Care Teams Bessemer Bottom Maker Relationship Specialty Start Date End Date Louis Harper DO [facility] [address] [place] [address] PCP - General Family Medicine 09/23/21 11/22/23 Phoenix Loredo MD Consulting Physician Cardiology 01/04/19 [place] [address] [place] [address] Instructor Physical Obstetrics and Gynecology 04/19/21 documented as of this encounter
--- OUTSIDE RECORDS SUMMARY | 2024-10-13 04:07 | XMS_ITS | Encounter Summary ---
Author Organization [facility] Address [address] [place] [address] Care Team Providers Care Emissions Inspector Name Role Phone Phoenix Loredo MD Unavailable [phone] Aylin Lundy MD Unavailable [phone] Harper Myers DO Primary Care Provider [phone] Encounter Details Date Type Department Care Team (Late st Contact Info) Description 02/23/2023 Orders Only [facility] Pulmonary at [address] [place] [address] Ho Jarrett MD [address] [place] [address] [address] [place] [address] Social History Tobacco Use Types Packs/Day [...] on file 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 She has concerns when her oxygen levels drop into the low 90s. I reassured her that this is not unexpected in patients with underlying COPD and a respiratory infection. She reports she gets very anxious when she sees her oxygen levels drop in thisfurther worsens her breathing. She indicates that she is been using her albuterol nebulizer 4-6 times per day but while using the nebulizer she has not been using her maintenance inhaler, Bevespi. I educated her that her maintenance treatment should never be paused and that she should resume regular use of this. She has an appointment with me next week. I will give her a few more days of lower dose prednisone and follow-up with her at that time. She voiced understanding documented in this encounter Plan of Treatment Upcoming Encounters Date Type Department Care Team (Late st Contact Info) Description 02/04/2025 9:30 AM CDT Hospital Encounter [facility] [address] [place] [address] Vic Gaines, DO [address] [address] 02/04/2025 9:30 AM CDT - 02/04/2025 10:00 AM CDT Surgery [facility] [address] [place] [address] Vic Gaines DO 3 [facility] [address] [place] [address] COLONOSCOPY Scheduled Procedures Name Priority Associated Diagnoses Date/Ti me COLONOSCOPY Encounter for screening colonoscopy 02/04/2025 9:30 AM CDT documented as of this encounter Visit Diagnoses Not on filedocumented in this encounter Discontinued Medications Medication Sig Discontinue Reason Start Date End Da te albuterol (PROVENTIL,VENTOLIN) 2.5 mg /3 mL (0.083 %) nebulizer solution Take 3 mL (2.5 mg total) by nebulization every 6 (six) hours as needed for wheezing Reorder 01/09/2019 02/23/2023 documented as of this encounter Care Teams Emissions Inspector Relationship Specialty Start Date End Date Harper Myers DO [address] [place] [id number] PCP - General Family Medicine 09/23/21 11/22/23 Phoenix Loredo MD Consulting Physician Cardiology 01/04/19 Aylin Lundy MD [address] [place] [id number] Industrial Conveyor Belt Repairer Obstetrics and Gynecology 04/19/21 documented as of this encounter
--- OUTSIDE RECORDS SUMMARY | 2024-10-13 04:07 | XMS_ITS | Encounter Summary ---
Author Organization [facility] Address [address] [place] [address] Care Team Providers Care Pulp Tester Name Role Phone Phoenix Loredo MD Unavailable [phone] Aylin Lundy MD Unavailable [phone] Harper Myers DO Primary Care Provider [phone] Encounter Details Date Type Department Care Team (Late st Contact Info) Description 12/28/2021 Orders Only [facility] [address] [place] [address] Joleen Mercer NP [address] [facility] [address] [place] [address] Renal stone (Primary Dx) Social History Tobacco Use Types [...] on file 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 Gender Identity Not on file Sexual Orientation Not on file documented as of this encounter Plan of Treatment Upcoming Encounters Date Type Department Care Team (Late st Contact Info) Description 02/04/2025 9:30 AM CDT Hospital Encounter [address] [address] Vic Gaines, DO 3 [facility] [address] [place] [address] 02/04/2025 9:30 AM CDT - 02/04/2025 10:00 AM CDT Surgery [address] [address] Vic Gaines, DO 3 [facility] [address] [place] [address] COLONOSCOPY Scheduled Procedures Name Priority Associated Diagnoses Date/Ti me COLONOSCOPY Encounter for screening colonoscopy 02/04/2025 9:30 AM CDT documented as of this encounter Visit Diagnoses Diagnosis Renal stone- Primary Calculus of kidney Encounter for screening colonoscopy documented in this encounter Care Teams Pulp Tester Relationship Specialty Start Date End Date Louis Harper DO [facility] [address] [place] [id number] PCP - General Family Medicine 09/23/21 11/22/23 Phoenix Loredo MD Consulting Physician Cardiology 01/04/19 Aylin Lundy MD [address] [place] [address] Medical Billing And Coding Instructor Obstetrics and Gynecology 04/19/21 documented as of this encounter
--- OUTSIDE RECORDS SUMMARY | 2024-10-13 04:07 | XMS_ITS | Encounter Summary ---
Author Organization [facility] Address [address] [place] [address] Care Team Providers Care Automotive Machinist Apprentice Name Role Phone Phoenix Loredo MD Unavailable [phone] Aylin Lundy MD Unavailable [phone] Harper Myers DO Primary Care Provider [phone] Reason for Visit * Reason Comments Cold Symptoms Sx started 08/12 C/o sinus pressure, cough, CHOWDHURY, L ear pain,PND. Her son tested + for covid 08/10. 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9 cm (5' 1 ) 08/14/2022 8:15 AM SED MIDDLE SCHOOL TEACHER Body Mass Index 28.83 08/14/2022 8:15 AM SED MIDDLE SCHOOL TEACHER documented in this encounter Patient Instructions * Patient Instructions* Carloz Gilman PA - 08/14/2022 8:15 AM SED MIDDLE SCHOOL TEACHER Call your doctor for possible Paxlovid prescription The rapid COVID test performed today in clinic was positive. The following are recommendations for treating the symptoms related to COVID19. What is the difference between Influenza (Flu) and COVID-19? Influenza (Flu) and COVID-19 are both contagious respiratory illnesses, but they are caused by different viruses. COVID-19 is caused by infection with a new coronavirus (called SARS-CoV-2) and flu is caused by infection with influenza viruses. There are some graves differences between flu and COVID-19. COVID-19 seems to spread more easily than flu and causes more serious illnesses in some people. It can also take longer before people show symptoms and people can be contagious for longer. The best way to prevent infection is to avoid being exposed to the virus. Because some of the symptoms of flu and COVID-19 are similar, it may be hard to tell the difference between them based on symptoms alone, and testing may be needed to help confirm a diagnosis.While more is learned every day, there is still a lot that is unknown about COVID-19 and the virus that causes it. The [facility] will be reaching out to all patients who have a positive test for further discussion and monitoring. Continue to self isolate until at least 10 days have passed since symptom onset, your symptoms have improved, and you have been fever free without the use of fever reducing medications for at least 24 hours. You may use acetaminophen and/or ibuprofen to control pain and fever. If you have chronic liver disease, have ever had a stomach ulcer or gastrointestinal bleeding talk with your healthcare provider before using these medicines. Aspirin should never be given to anyone under 18 years of age who is ill with a viral infection or fever. It may cause severe liver or brain damage. Your appetite may be poor, so a light diet is ok. Stay well hydrated by drinking 6 to 8 glasses of fluids per day (water, soft drinks, juices, tea, or soup). Extra fluids will help loosen secretions in the nose and lungs. Mumu-edk-fiodmty cold medicines will not shorten the length of time you???re sick, but they may be helpful for relieving the following symptoms: headache, cough, sore throat, and nasal and sinus congestion. If you take prescription medicines, ask your healthcare provider or pharmacist which ljnn-kic-bhfagol medicines are safe to use. (Note: DO NOT use decongestants if you have high blood pressure.) Steps to help prevent the spread of COVID-19 if you are sick If you are sick with COVID-19 or think you might have COVID-19, follow the steps below to care for yourself and to help protect other people in your home and community. Stay home except to get medical care Most people with COVID-19 have mild illness and are able to recover at home without medical care. Do not leave your home, except to get medical care. Do not visit public areas. Take care of yourself. Get rest and stay hydrated. Take jioy-zwo-bsrbyqw medicines to help you feelbetter. Stay in touch with your doctor. Call before you get medical care. Be sure to get care if you have trouble breathing, or have any other emergency warning signs, or if you think it is an emergency. Avoid using public transportation, ride-sharing, or taxis. Monitor your symptoms Symptoms of COVID-19 include fever, cough, shortness of breath or difficulty breathing, fatigue, muscle or body aches, headache, new loss of taste or smell, sore throat, congestion, runny nose, nausea, vomiting, or diarrhea. When to Seek Medical Attention If you develop emergency warning signs for COVID-19 get medical attention immediately. Emergency warning signs include*: Trouble breathing Persistent pain or pressure in the chest New confusion or inability to arouse Bluish lips or face *This list is not all inclusive. Please consult your medical provider for any other symptoms that are severe or concerning. Call 911 if you have a medical emergency: If you have a medical emergency and need to call 911, notify the video camera operator that you have or think you might have, COVID-19. If possible, put on a facemask before medical help arrives. Separate yourself from other people in your home, this is known as home isolation As much as possible, you should stay away from other people and pets in your home. You should stay in a specific ???sick room?? if possible. Use a separate bathroom, if available. If you need to be around other people or animals in or outside of the home, wear a mask For more information on sharing close living quarters with someone who is sick visit https://www.cdc .gov/coronavirus/2019-ncov/yhuoy-fdhc-ggcogm/okowjs-vh-teidt-quarters.html For more information on COVID-19 and pets visit https://www.cdc.gov/coronavirus/2019-ncov/faq.html Call ahead before visiting your doctor Many medical visits for routine care are being postponed or done by phone or telemedicine. If you have a medical appointment that cannot be postponed, call your doctor???s office, and tell them you have or may have COVID-19. This will help the office protect themselves and other patients. If You Test Positive for COVID-19 (Isolate) Everyone, regardless of vaccination status. Stay home for 5 days. If you have no symptoms or your symptoms are resolving after 5 days, you can leave your house. Continue to wear a mask around others for 5 additional days. If you have a fever, continue to stay home until your fever resolves. If You Were Exposed to Someone with COVID-19 (Quarantine) If you: Have been boosted OR Completed the primary series of Pfizer or Moderna vaccine within the last 6 months OR Completed the primary series of J&J vaccine within the last 2 months: Wear a mask around others for 10 days. Test on day 5, if possible. If you develop symptoms get a test and stay home. If you: Completed the primary series of Pfizer or Moderna vaccine over 6 months ago and are not boosted OR Completed the primary series of J&J over 2 months ago and are not boosted OR Are unvaccinated: Stay home for 5 days. After that continue to wear a mask around others for 5 additional days. If you can???t quarantine you must wear a mask for 10 days. Test on day 5 if possible. If you develop symptoms, get a test & stay home MIDDLE SCHOOL TEACHER MIDDLE SCHOOL TEACHER documented in this encounter Progress Notes * Carloz Gilman PA - 08/14/2022 8:15 AM CST Images from the original note were not included. Subjective/Objective Patient ID: Mirtha Cherry is a 57 y.o. female. Chief Complaint Cold Symptoms (Sx started 08/12 C/o sinus pressure, cough, CHOWDHURY, L ear pain,PND. Her son tested + for covid 08/10.) 49-year-old white female with 2 day history of ear pain, postnasal drainage, runny nose, sinus pressure, cough and headache that started this morning, she has taken Tylenol and ibuprofen, she has been vaccinated, she is exposed daily to her son who tested positive for COVID 3 days ago Review of Systems Constitutional: Negative for appetite change, chills, diaphoresis, fatigue and fever. HENT: Positive for ear pain, postnasal drip, rhinorrhea and sinus pressure. Negative for congestion, facial swelling, sinus pain, sneezing and sore throat. Respiratory: Positive for cough. Negative for shortness of breath and wheezing. Gastrointestinal: Negative for abdominal pain, diarrhea, nausea and vomiting. Musculoskeletal: Negative for myalgias. Neurological: Positive for headaches. Physical Exam Vitals reviewed. Constitutional: General: She is not in acute distress. Appearance: Normal appearance. HENT: Right Ear: Hearing, tympanic membrane, ear canal and external ear normal. Left Ear: Hearing, tympanic membrane, ear canal and external ear normal. Nose: No congestion or rhinorrhea. Right Sinus: No maxillary sinus tenderness or frontal sinus tenderness. Left Sinus: No maxillary sinus tenderness or frontal sinus tenderness. Mouth/Throat: Pharynx: Posterior oropharyngeal erythema present. No pharyngeal swelling, oropharyngeal exudate oruvula swelling. Eyes: General: Right eye: No discharge. Left eye: No discharge. Cardiovascular: Rate and Rhythm: Normal rate and regular rhythm. Pulmonary: Breath sounds: Normal breath sounds and air entry. Abdominal: Tenderness: There is no abdominal tenderness. Lymphadenopathy: Cervical: No cervical adenopathy. Skin: General: Skin is warm and dry. Neurological: Mental Status: She is alert. Mental status is at baseline. Psychiatric: Attention and Perception: Attention normal. Mood and Affect: Mood normal. Speech: Speech normal. Vitals: 08/14/22 0815 BP: 122/70 Pulse: 86 Resp: 20 Temp: 37.9 ??C (100.2 ??F) TempSrc: Oral SpO2: 99% Weight: 69.2 kg (152 lb 9.6 oz) Height: 154.9 cm (5' 1 ) Assessment/Plan COVID positive Call your doctor for possible Paxlovid prescription Patient given COVID discharge instructions Diagnoses and all orders for this visit: Fever, unspecified fever cause (Primary) - COVID-19 POC COVID-19 Recent Results (from the past 4 hour(s)) COVID-19 POC Collection Time: 08/14/22 8:26 AM Result Value Ref Range COVID-19 Ag POC (BD Veritor) Positive (A) Presumptive Negative, Invalid Patient Education: Disposition Treatment plan including expectations, follow up, and return precautions discussed with patient/parent, verbalizes understanding. Medication dosage, use, and potential adverse reactions discussed with patient/parent. Advised to follow up with PCP if symptoms do not resolve as expected or sooner if condition worsens. Signs/symptoms warranting ER evaluation reviewed. Patient and/or guardian was given an opportunity to ask questions, questions answered. DEENA Silva Cosigned by Harper Myers DO at 08/16/2022 10:00 AM SED MIDDLE SCHOOL TEACHER MIDDLE SCHOOL TEACHER MIDDLE SCHOOL TEACHER documented in this encounter Plan of Treatment Upcoming Encounters Date Type Department Care Team (Late st Contact Info) Description 02/04/2025 9:30 AM CDT Hospital Encounter [address] [address] Vic Gaines, DO 3 [facility] [address] [place] [address] 02/04/2025 9:30 AM CDT - 02/04/2025 10:00 AM CDT Surgery [address] [address] Vic Gaines DO 3 [facility] [address] [place] [address] COLONOSCOPY Scheduled Procedures Name Priority Associated Diagnoses Date/Ti me COLONOSCOPY Encounter for screening colonoscopy 02/04/2025 9:30 AM CDT documented as of this encounter Procedures Procedure Name Priority Date/Time Associated Diagnosis Comments COVID-19 POC Routine 08/14/2022 8:26 AM SED MIDDLE SCHOOL TEACHER Fever, unspecified fever cause documented in this encounter Results * (ABNORMAL) COVID-19 POC (08/14/2022 8:26 AM SED MIDDLE SCHOOL TEACHER) COVID-19 Ag POC (BD Veritor) Positive( A) Presumptive Negative, Invalid SUSIEDaphney ULLOA 08/14/2022 8:26 AM SED MIDDLE SCHOOL TEACHER us Carloz SHAFFER POINT OF CARE TEST ORDERABLES Final Result [facility] [address] [facility] [address] [place] [address] documented in this encounter Visit Diagnoses Diagnosis Fever, unspecified fever cause- Primary COVID-19 Encounter for screening colonoscopy documented in this encounter Additional Health Concerns Infection Onset Date Last Indicated Resolved Time COVID: Suspected 08/14/2022 08/14/2022 08/14/2022 8:25 AM SED MIDDLE SCHOOL TEACHER COVID: Suspected 08/14/2022 08/14/2022 08/14/2022 8:26 AM SED MIDDLE SCHOOL TEACHER COVID19 08/14/2022 08/14/2022 08/24/2022 3:05 AM SED MIDDLE SCHOOL TEACHER documented as of this encounter Care Teams Automotive Machinist Apprentice Relationship Specialty [place] [address] [place] [address] PCP - General Family Medicine 09/23/21 11/22/23 Phoenix Loredo MD Consulting Physician Cardiology 01/04/19 [place] [address] [place] [address] Production Team Advisor Obstetrics and Gynecology 04/19/21 documented as of this encounter
--- OUTSIDE RECORDS SUMMARY | 2024-10-13 04:07 | XMS_ITS | Encounter Summary ---
Author Organization [facility] Address [address] [place] [address] Care Team Providers Care Leak Detection Engineer Name Role Phone Phoenix Loredo MD Unavailable [phone] Aylin Lundy MD Unavailable [phone] Harper Myers DO Primary Care Provider [phone] Reason for Referral * Diagnostic Lab (Routine) - Closed Specialty Diagnoses / Procedures Referred By [place] t Referred To Contact Lab Diagnoses Encounter for well woman exam Procedures ThinPrep(R) Imaging Pap and HPV mRNA E6/E7 Reflex HPV 16,18/[place] [address] [place] [address] Phone: tel: fax: Referral ID Status Reason Start Date Expiration Date Visits Re quested Visits Authorized [id number] Closed 01/21/2022 02/20/2023 1 1 Reason for Visit * Reason Comments Annual Exam Encounter Details Date Type Department Care Team (Late st Contact Info) Description 01/21/2022 11:10 AM CDT Office Visit [facility] [address] [place] [address] [place] [address] [place] [address] Encounter for well woman exam (Primary Dx) [...] on file 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 year old female who presents for a well woman exam. Pt is menopausal. LMP nearly 11 yrs ago. She denies PMB, pelvic pain, abnl discharge. No vaginal dryness or vasomotor symptoms. Pt had bilateral mastectomy without reconstruction in May 2018 for right lobular carcinoma insitu. Dr. Waters performed surgery. Pt states she did not have genetic testing or hormone testing. States she did not require either as precancerous. Last visit 03/2019, was advised to rto in6mo, never had fu visit. Recommend contacting office for appt. Pt notes no breast lumps but has issues with scar tissue. PCP manages pt's hyperlipidemia. Undergoing sleep study. She is daily tobacco user, encouraged cessation. No relationship, pt is not sexually active. Menstrual History: No LMP recorded (lmp unknown). Patient is postmenopausal. Sexual History: OB History 2 Para 2 Term 2 AB Living 2 SAB IAB Ectopic Multiple Live Births # Outcome Date GA Labor/2nd Weight Sex Delivery Anes PTL Lv A1 A5 1 Term 2 Term I have reviewed medical history, surgical history, medications, social history, family history withpatient. Patient denies any changes in personal or family history. REVIEW OF SYSTEMS: Review of systems negative PHYSICAL EXAM: LMP (LMP Unknown) General: Well appearing, No pain or distress, well nourished Neck: Supple Breast: No dominant masses, no skin changes. B/l nipples normal Respiratory: Respirations unlabored Gastrointestinal: soft, non-tender abdomen, no masses palpable EGBUS: wnl Vagina: wnl Cervix: no polyps or lesion. Normal discharge Uterus: non-tender, no masses Adnexa: b/l non-tender, no masses Extremities: no cyanosis or clubbing or edema Musculoskeletal: no obvious joint deformities Skin: no obvious rash or bruising Psychiatric: normal affect Neurologic: awake/alert, no focal deficits PH 4.5 Assessment and Plan: Mirtha Cherry is a 56 y.o. female who presents for a well woman exam. -Pap done. Enc'd monthly sbe -Menopausal: call with any pmb -STI screening discussed. Patient declines -Mammogram: hx bilateral mastectomy, normal breast exam today, call breast surgery group for fu visit -Colonoscopy: due at age 54, will call to schedule RTO 1 yr/prn Pastora Wong NP documented in this encounter Plan of Treatment Upcoming Encounters Date Type Department Care Team (Late st Contact Info) Description 02/04/2025 9:30 AM CDT Hospital Encounter [address] [address] Vic Gaines, DO 3 [facility] [address] [place] [address] 02/04/2025 9:30 AM CDT - 02/04/2025 10:00 AM CDT Surgery [facility] [address] [place] [address] Vic Gaines, DO 3 [facility] [address] [place] [address] COLONOSCOPY Scheduled Procedures Name Priority Associated Diagnoses Date/Ti me COLONOSCOPY Encounter for screening colonoscopy 02/04/2025 9:30 AM CDT documented as of this encounter Procedures Procedure Name Priority Date/Time Associated Diagnosis Comments THINPREP IMAGING PAP AND HPV MRNA E6/E7 REFLEX HPV 16,18/45 Routine 01/21/2022 12:00 PM CDT Encounter for well woman exam documented in this encounter Results * ThinPrep(R) Imaging Pap and HPV mRNA E6/E7 Reflex HPV 16,18/45 (01/21/2022 12:00 PM CDT) CLINICAL INFORMATION: [facility] Comment:Information not prov ided LMP [facility] Comment:NONE GIVEN Previous Pap [facility] Comment:NONE GIVEN Prev. Bx [facility] Comment:NONE GIVEN SOURCE: [facility] Comment:None given Pap, specimen adequacy [facility] Comment: Satisfactory for evaluation. Endocervical/transformation zone component present. HPV interp [facility] Comment:Negative for intraep ithelial lesion or malignancy. COMMENTS [facility] Comment: This Pap test has been evaluated with computer assisted technology. Finishing Technician [facility] Comment: MEF, CT(ASCP) CT screening location: [place] [address] [address] [address] Review director of digital platforms [facility] Comment: LMT, CT(ASCP) CT screening location: [place] [address] [address] [address] Comment [facility] Comment: EXPLANATORY NOTE: The Pap is [...] High Risk E6/E7 Not Detected Not Detected [facility] Comment: Methodology: Developer Advocate-Mediated Amplification This assay detects E6/E7 viral messenger RNA (mRNA) from 14 high-risk HPV types (16,18,31,33,35,39,45,51,52,56,58,59,66,68). The analytical performance characteristics of this assay have been determined by [facility]. The modifications have not been cleared or approved by the FDA. This assay has been validated pursuant to the CLIA regulations and is used for clinical purposes. For additional information, please refer to http://education.Syndiant/faq/IXQ363t0 (This link if provided for information/ educational purposes only.) Swab 01/21/2022 12:0 0 PM CDT 01/21/2022 11:38 PM CDT Pastora Wong SILK SCREEN OPERATOR LAB CYTOLOGY ORDERABLES Final Result [facility] [address] [place] [address] [facility] [address] [place] [address] documented in this encounter Visit Diagnoses Diagnosis Encounter for well woman exam- Primary Encounter for screening colonoscopy documented in this encounter Care Teams Leak Detection Engineer Relationship Specialty Start Date End Date Harper Myers DO [address] [place] [address] PCP - General Family Medicine 09/23/21 11/22/23 Phoenix Loredo MD Consulting Physician Cardiology 01/04/19 Aylin Lundy MD [address] [place] [address] Advocacy Director Obstetrics and Gynecology 04/19/21 documented as of this encounter
--- OUTSIDE RECORDS SUMMARY | 2024-10-13 04:07 | XMS_ITS | Encounter Summary ---
Author Organization [facility] Address [address] [facility] [address] [place] [address] Care Team Providers Care International Flight Attendant Name Role Phone Phoenix Loredo MD Unavailable [phone] Aylin Lundy MD Unavailable Harper Myers DO Primary Care Provider [phone] Encounter Details Date Type Department Care Team (Late st Contact Info) Description 08/14/2022 Orders Only [facility] Pulmonology [address] [facility] [address] [place] [address] Ho Jarrett MD [address] [place] [address] [address] [place] [address] Social History Tobacco Use Types Packs/Day Years [...] on file 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 Gender Identity Not on file Sexual Orientation Not on file documented as of this encounter Ordered Prescriptions Prescription Sig Dispense Quantity Refills Last Filled Start Date End Date nirmatrelvir 300 mg-ritonavir 100 mg (PAXLOVID 300mg-100 mg) tablets,dose pack tablets in a dose pack (EUA) Take 300 mg nirmatrelvir (2 x 150 mg tablets) with 100 mg ritonavir (1 x 100 mg tablet) with all three tablets taken together by mouth twice daily for 5 days 30 tablet 08/14/2022 documented in this encounter Plan of Treatment Upcoming Encounters Date Type Department Care Team (Late st Contact Info) Description 02/04/2025 9:30 AM CDT Hospital Encounter [address] [address] Vic Gaines, DO 3 [facility] [address] [place] [address] 02/04/2025 9:30 AM CDT - 02/04/2025 10:00 AM CDT Surgery [address] [address] Vic Gaines, DO 3 [facility] [address] [place] [address] COLONOSCOPY Scheduled Procedures Name Priority Associated Diagnoses Date/Ti me COLONOSCOPY Encounter for screening colonoscopy 02/04/2025 9:30 AM CDT documented as of this encounter Visit Diagnoses Not on filedocumented in this encounter Additional Health Concerns Infection Onset Date Last Indicated Resolved Time COVID: Suspected 08/14/2022 08/14/2022 08/14/2022 8:25 AM ELECTRICAL ASSEMBLIES SUPERVISOR COVID: Suspected 08/14/2022 08/14/2022 08/14/2022 8:26 AM ELECTRICAL ASSEMBLIES SUPERVISOR COVID19 08/14/2022 08/14/2022 08/24/2022 3:05 AM ELECTRICAL ASSEMBLIES SUPERVISOR documented as of this encounter Care Teams International Flight Attendant Relationship Specialty Start Date End Date Harper Myers DO [address] [address] [place] [address] PCP - General Family Medicine 09/23/21 11/22/23 Phoenix Loredo MD Consulting Physician Cardiology 01/04/19 [place] [address] [place] [address] Gas Pumping Station Helper Obstetrics and Gynecology 04/19/21 documented as of this encounter
--- OUTSIDE RECORDS SUMMARY | 2024-10-13 04:07 | XMS_ITS | Encounter Summary ---
Author Organization [facility] Address [address] [facility] [address] [place] [address] Care Team Providers Care Cuff Knitter Name Role Phone Phoenix Loredo MD Unavailable [phone] Aylin Lundy MD Unavailable Harper Meyrs DO Primary Care Provider [phone] Reason for Visit * Reason Comments Sinus Problem Pt was here on 08/14 and was + for covid. Pt c/o felt like the drainage got better but the last 1-2 days facial pain developed. Encounter Details Date Type Department Care Team (Late st Contact Info) Description 08/28/2022 5:30 PM ASSISTANT MANAGER Office Visit [facility] [address] [facility] [place] [id number] Roxana Maria, CRISTIANO [address] [facility] [place] [address] Acute non-recurrent maxillary sinusitis (Primary Dx) Social History Tobacco Use Types Packs/Day Years Used Date Smoking Tobacco: Every Day Cigarettes 1 40 Smokeless Tobacco: Never Tobacco Cessation:Ready to Q uit: Not Asked; Counseling Given: Not Answered Comments:Smoking History Packs/day: 0.5 Packs Alcohol Use Standard Drinks/Week Comments [...] on file Legal Sex Female 8:44 AM ASSISTANT MANAGER Gender Identity Not on file Sexual Orientation Not on file documented as of this encounter Last Filed Vital Signs Vital Sign Reading Time Taken Comments Blood Pressure 128/68 08/28/2022 2:47 PM ASSISTANT MANAGER Pulse 67 08/28/2022 2:47 PM ASSISTANT MANAGER Temperature 37.1 ??C (98.7 ??F) 08/28/2022 2:47 PM CS T Respiratory Rate 14 08/28/2022 2:47 PM ASSISTANT MANAGER Oxygen Saturation 98% 08/28/2022 2:47 PM ASSISTANT MANAGER Inhaled Oxygen Concentration - - Weight 68.9 kg (152 lb) 08/28/2022 2:47 PM ASSISTANT MANAGER Height 154.9 cm (5' 1 ) 08/28/2022 2:47 PM ASSISTANT MANAGER Body Mass Index 28.72 08/28/2022 2:47 PM ASSISTANT MANAGER documented in this encounter Patient Instructions * Patient Instructions* Roxana Maria, CRISTIANO - 08/28/2022 5:30 PM ASSISTANT MANAGER Research has proven that unless you are running a fever or symptoms start to improve then get worseagain, sinus infections are typically viral until days 9-10. Finish the entire antibiotic prescription. Take this with food. Eat yogurt or take probiotic daily while on antibiotics. Symptomatic treatments include: - Over the counter antihistamine such as loratadine (Claritin) or cetirizine (Zyrtec) to reduce secretions. The D formula includes pseudoephedrine and can be helpful as a decongestant but SHOULD NOT BE USED IF YOU HAVE A HISTORY OF HIGH BLOOD PRESSURE. - Coricidin HBP may be taken for congestion if you have a history of high blood pressure. - Topical decongestants are another option such as Afrin. Do not use for more than 3 days as it cancause rebound congestion worse than original congestion. - Tessalon, Dextromethorphan (Robitussin) or Delsym for cough - Guafenesin (Mucinex) to thin secretions - Acetaminophen (Tylenol), ibuprofen (Motrin, Advil), or Aleve (naproxen) for pain or fever. - The use of hypertonic saline to irrigate nasal passageways can be helpful. Over the counter systems include Neti Pot and Nasopure. Use with distilled water. - Salt water gargles and throat lozenges can be helpful for sore throat. - To prevent spreading the illness to others cover your sneeze and cough into your arm and not yourhand, don't allow others to eat or drink with the same utensils or glass, and use hand boiler/chiller operator before touching people or common surfaces. - Apply warm packs to face to facilitate sinus drainage. - Use cool mist humidifier in bedroom at night. - Increase fluid consumption and rest. - Follow up with your PCP in 1 week or sooner if symptoms worsen or are not improving as planned. - If you experience any shortness of breath, chest pain, or high fever >101, go to the EmergencyRoom. STANT MANAGER documented in this encounter Ordered Prescriptions Prescription Sig Dispense Quantity Refills Last Filled Start Date End Date amoxicillin-clavul anate (AUGMENTIN) 875-125 mg per tabletIndications: Acute non-recurrent maxillary sinusitis Take 1 tablet by mouth 2 (two) times a day for 10 days 20 tablet 08/28/2022 09/07/2022 documented in this encounter Progress Notes * Roxana Maria NP - 08/28/2022 5:30 PM CST Images from the original note were not included. Subjective/Objective Patient ID: Mirtha Cherry is a 57 y.o. female. Chief Complaint Sinus Problem (Pt was here on 08/14 and was + for covid. Pt c/o felt like the drainage got better but the last 1-2 days facial pain developed. ) Presents to clinic for runny nose, sinus pressure x2 weeks. She has taken Mucinex, Claritin, nasal rinses Sinus Problem This is a new problem. The current episode started 1 to 4 weeks ago. The problem has been graduallyworsening since onset. There has been no fever. Associated symptoms include congestion and sinus pressure. Pertinent negatives include no coughing, ear pain, headaches, shortness of breath or sore throat. Review of Systems Constitutional: Negative for activity change, appetite change, fatigue and fever. HENT: Positive for congestion, postnasal drip, sinus pressure and sinus pain. Negative for ear discharge, ear pain, rhinorrhea and sore throat. Eyes: Negative for discharge. Respiratory: Negative for cough and shortness of breath. Gastrointestinal: Negative for diarrhea, nausea and vomiting. Musculoskeletal: Negative for myalgias. Skin: Negative for rash. Neurological: Negative for headaches. Hematological: Negative for adenopathy. Physical Exam Vitals reviewed. Constitutional: General: She is not in acute distress. Appearance: Normal appearance. She is well-developed. She is not ill-appearing. HENT: Head: Normocephalic. Right Ear: Tympanic membrane, ear canal and external ear normal. Left Ear: Tympanic membrane, ear canal and external ear normal. Nose: No congestion or rhinorrhea. Right Sinus: Maxillary sinus tenderness present. No frontal sinus tenderness. Left Sinus: Maxillary sinus tenderness present. No frontal sinus tenderness. Mouth/Throat: Lips: Myers Flat. Mouth: Mucous membranes are moist. Pharynx: Oropharynx is clear. Eyes: General: Right eye: No discharge. Left eye: No discharge. Conjunctiva/sclera: Conjunctivae normal. Cardiovascular: Rate and Rhythm: Normal rate and regular rhythm. Pulmonary: Effort: Pulmonary effort is normal. No respiratory distress. Breath sounds: Normal breath sounds and air entry. Abdominal: Tenderness: There is no abdominal tenderness. Musculoskeletal: General: Normal range of motion. Cervical back: Neck supple. Lymphadenopathy: Head: Right side of head: No tonsillar adenopathy. Left side of head: No tonsillar adenopathy. Cervical: No cervical adenopathy. Skin: General: Skin is warm and dry. Findings: No rash. Neurological: Mental Status: She is alert and oriented to person, place, and time. Mental status is at baseline. Psychiatric: Attention and Perception: Attention normal. Mood and Affect: Mood normal. Behavior: Behavior normal. Behavior is cooperative. Thought Content: Thought content normal. Judgment: Judgment normal. Vitals: 08/28/22 1447 BP: 128/68 Pulse: 67 Resp: 14 Temp: 37.1 ??C (98.7 ??F) SpO2: 98% Weight: 68.9 kg (152 lb) Height: 154.9 cm (5' 1 ) Assessment/Plan Discussed Completing any meds prescribed Discussed OTC decongestants for congestion- Sudafed/Mucinex/Flonase Motrin/Tylenol for pain/fever Antihistamines- Zyrtec, Benadryl can be used for runny nose. Mucinex Discussed hydration-Drink plenty of water & get plenty of rest A humidifier may also help with congestion May try sinus rinses or steam- Saline rinses Follow up with your PCP in 7 days if you are not getting better Diagnoses and all orders for this visit: Acute non-recurrent maxillary sinusitis (Primary) - amoxicillin-clavulanate (AUGMENTIN) 875-125 mg per tablet; Take 1 tablet by mouth 2 (two) times aday for 10 days No results found for this or any previous visit (from the past 4 hour(s)). Patient Education: Disposition Treatment plan including expectations, follow up, and return precautions discussed with patient/parent, verbalizes understanding. Medication dosage, use, and potential adverse reactions discussed with patient/parent. Advised to follow up with PCP if symptoms do not resolve as expected or sooner if condition worsens. Signs/symptoms warranting ER evaluation reviewed. Patient and/or guardian was given an opportunity to ask questions, questions answered. Roxana Maria NP STANT MANAGER documented in this encounter Plan of Treatment Upcoming Encounters Date Type Department Care Team (Late st Contact Info) Description 02/04/2025 9:30 AM CDT Hospital Encounter [address] [address] Vic Gaines, DO [address] [address] 02/04/2025 9:30 AM CDT - 02/04/2025 10:00 AM CDT Surgery [address] [address] Vic Gaines DO [address] [address] COLONOSCOPY Scheduled Procedures Name Priority Associated Diagnoses Date/Ti me COLONOSCOPY Encounter for screening colonoscopy 02/04/2025 9:30 AM CDT documented as of this encounter Visit Diagnoses Diagnosis Acute non-recurrent maxillary sinusitis- Primary Encounter for screening colonoscopy documented in this encounter Additional Health Concerns Infection Onset Date Last Indicated Resolved Time COVID: Recovered Comment:Added based on recent COVID infection. 08/24/2022 08/28/2022 11/22/2022 3:[address] documented as of this encounter Care Teams Cuff Knitter Relationship Specialty Start Date End Date Harper Myers DO [address] [place] [address] PCP - General Family Medicine 09/23/21 11/22/23 Phoenix Loredo MD Consulting Physician Cardiology 01/04/19 Aylin Lundy MD [address] [place] [address] Computational Chemist Obstetrics and Gynecology 04/19/21 documented as of this encounter
--- OUTSIDE RECORDS SUMMARY | 2024-10-13 04:07 | XMS_ITS | Encounter Summary ---
Author Organization [facility] Address [address] [place] [address] Care Team Providers Care Hydraulic Miner Blasting Name Role Phone Phoenix Loredo MD Unavailable [phone] Aylin Lundy MD Unavailable [phone] Harper Myers DO Primary Care Provider [phone] Encounter Details Date Type Department Care Team (Late st Contact Info) Description 09/09/2022 Telephone [facility] [address] [place] [address] Che Berrios RN Social History Tobacco Use Types Packs/Day [...] on file Legal Sex Female 8:44 AM MANAGER RISK MANAGEMENT Gender Identity Not on file Sexual Orientation Not on file documented as of this encounter Miscellaneous Notes * Telephone Encounter - Che Berrios RN - 09/09/2022 10:05 AM MANAGER RISK MANAGEMENT Reviewed history and confirmed appt. GER RISK MANAGEMENT documented in this encounter Plan of Treatment Upcoming Encounters Date Type Department Care Team (Late st Contact Info) Description 02/04/2025 9:30 AM CDT Hospital Encounter [address] [address] Vic Gaines, DO 3 [facility] [address] [place] [address] 02/04/2025 9:30 AM CDT - 02/04/2025 10:00 AM CDT Surgery [address] [address] iVc Gaines, DO 3 [facility] [address] [place] [address] COLONOSCOPY Scheduled Procedures Name Priority Associated Diagnoses Date/Ti me COLONOSCOPY Encounter for screening colonoscopy 02/04/2025 9:30 AM CDT documented as of this encounter Visit Diagnoses Not on filedocumented in this encounter Additional Health Concerns Infection Onset Date Last Indicated Resolved Time COVID: Recovered Comment:Added based on recent COVID infection. 08/24/2022 08/28/2022 11/22/2022 3:[address] documented as of this encounter Care Teams Hydraulic Miner Blasting Relationship Specialty Start Date End Date Harper Myers DO [facility] [place] [address] PCP - General Family Medicine 09/23/21 11/22/23 Phoenix Loredo MD Consulting Physician Cardiology 01/04/19 Aylin Lundy MD [facility] [place] [address] Sales Technician Home Theater Obstetrics and Gynecology 04/19/21 documented as of this encounter
--- OUTSIDE RECORDS SUMMARY | 2024-10-13 04:07 | XMS_ITS | Encounter Summary ---
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 Gender Identity Not on file Sexual Orientation Not on file documented as of this encounter Discharge Disposition Disposition Code Departure Means Destination Discharge to home or self care documented in this encounter Plan of Treatment Upcoming Encounters Date Type Department Care Team (Late st Contact Info) Description 02/04/2025 9:30 AM CDT Hospital Encounter [address] [address] Vic Gaines, DO 3 [facility] [address] [place] [address] [place] [address] 02/04/2025 9:30 AM CDT - 02/04/2025 10:00 AM CDT Surgery [address] [address] Vic Gaines, DO 3 [facility] [address] [place] [address] [place] [address] COLONOSCOPY Scheduled Procedures Name Priority Associated Diagnoses Date/Ti me COLONOSCOPY Encounter for screening colonoscopy 02/04/2025 9:30 AM CDT documented as of this encounter Procedures Procedure Name Priority Date/Time Associated Diagnosis Comments COVID-19 CORONAVIRUS RNA Routine 12/21/2021 2:12 PM CDT TROY (obstructive sleep apnea) documented in this encounter Results * COVID-19 Coronavirus RNA Nasopharyngeal (12/21/2021 2:12 PM CDT) COVID-19 RNA Not Detected [facility] ([place]) Comment: Interpretive Data Synonyms for this test include: PCR and NAAT . ??Testing performed by the [facility] Molecular Infectious Disease Laboratory. The 2019-Novel Coronavirus Assay (COVID-19) Real Time RT-PCR assay is for in vitro diagnostic use under FDA emergency use authorization only. A negative RT-PCR result does not preclude infection with COVID-19 and should not be used as the sole basis for treatment or other patient management decisions. ??Additional sample types have been validated according to CLIA regulations. ?? Current Interpretive Data was last revised on November 12, 2020. Testing performed by: [facility], [address] [facility], [address] Employeed in healthcare? No JAY IZQUIERDO (ARTEMIO) Comment:Testing performed by : [facility], [address] [facility], [address] status? No CE RNMILO IZQUIERDO (ARTEMIO) Comment:Testing performed by : [facility], [address] [facility], [address] Group care resident? No JAY IZQUIERDO (ARTEMIO) Comment:Testing performed by : [facility], [address] [facility], [address] Hospitalized? No JAY IZQUIERDO (ARTEMIO) Comment:Testing performed by : [facility], [address] [facility], [address] Is patient in ICU? No JAY IZQUIERDO (ARTEMIO) Comment:Testing performed by : [facility], [address] [facility], [address] Symptomatic as defined by CDC? No JAY IZQUIERDO (ARTEMIO) Comment:Testing performed by : [facility], [address] [place] [address], [address] Nasopharyngeal 12/21/2021 2: 12 PM CDT 12/21/2021 11:20 PM CDT Narrative JAY IZQUIERDO (ARTEMIO) - 12/22/2021 6:09 AM CDT What is the reason for testing?->Screening prior to scheduled??procedure or surgery??(Batched) us Brianne Florez MD LAB MICROBIOLOGY - GENERAL ORDER JAGDEEP Final Result JAY IZQUIERDO (ARTEMIO) 1 [facility] [place] [address] documented in this encounter Visit Diagnoses Diagnosis TROY (obstructive sleep apnea) Obstructive sleep apnea (adult) (pediatric) Encounter for screening colonoscopy documented in this encounter Care Teams Business Unit Leader Relationship Specialty Start Date End Date [place]DO [address] [place] [address] PCP - General Family Medicine 09/23/21 11/22/23 Phoenix Loredo MD Consulting Physician Cardiology 01/04/19 [place] [address] [place] [address] Waste Water Or Water Plant Operator Obstetrics and Gynecology 04/19/21 documented as of this encounter
--- OUTSIDE RECORDS SUMMARY | 2024-10-13 04:07 | XMS_ITS | Encounter Summary ---
Author Organization [facility] Address [address] [place] [address] Care Team Providers Care Associate Professor Plant Pathology Name Role Phone Phoenix Loredo MD Unavailable [phone] Aylin Lundy MD Unavailable [phone] Harper Myers DO Primary Care Provider [phone] Encounter Details Date Type Department Care Team (Late st Contact Info) Description 12/27/2021 Telephone [facility] Sleep Medicine at [address] [place] [address] Brianne Florez MD [address] [place] [address] [address] [place] [address] Social History Tobacco Use Types [...] on file 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 Noted previously on her Holter. Will increase Toprol-XL to 50 daily * Telephone Encounter - Brianne Florez MD - 12/27/2021 12:[address] Loredo, MsChamp Cherry had sleep study and EKG showed very frequent episodes of all these- bigeminy, trigeminy, quadrigeminy, and PVCs. Please correlate clinically. Thank you, Dr. Florez Sleep Medicine documented in this encounter Plan of Treatment Upcoming Encounters Date Type Department Care Team (Late st Contact Info) Description 02/04/2025 9:30 AM CDT Hospital Encounter [address] [address] Vic Gaines, DO 3 [facility] [place] [address] [place] [address] 02/04/2025 9:30 AM CDT - 02/04/2025 10:00 AM CDT Surgery [address] [address] Vic Gaines, DO 3 [facility] [address] [place] [address] [place] [address] COLONOSCOPY Scheduled Procedures Name Priority Associated Diagnoses Date/Ti me COLONOSCOPY Encounter for screening colonoscopy 02/04/2025 9:30 AM CDT documented as of this encounter Visit Diagnoses Not on filedocumented in this encounter Care Teams Associate Professor Plant Pathology Relationship Specialty Start Date End Date [place] [address] [place] [address] PCP - General Family Medicine 09/23/21 11/22/23 Phoenix Loredo MD Consulting Physician Cardiology 01/04/19 [place] [address] [place] [address] Sales Estimator Obstetrics and Gynecology 04/19/21 documented as of this encounter
--- OUTSIDE RECORDS SUMMARY | 2024-10-13 04:07 | XMS_ITS | Encounter Summary ---
Author Organization [facility] Address [address] [place] [address] Care Team Providers Care Food Preparation Worker Name Role Phone Phoenix Loredo MD Unavailable [phone] Aylin Lundy MD Unavailable [phone] Harper Myers DO Primary Care Provider [phone] Reason for Visit * Reason Comments Post Covid 19 08/30 Cough Asthma Encounter Details Date Type Department Care Team (Late st Contact Info) Description 09/14/2022 9:00 AM PARK SERVICES SPECIALIST Office Visit [facility] Pulmonary at [address] [place] [address] Ho Jarrett MD [address] [place] [address] [address] [place] [address] Cigarette nicotine dependence without complication (Primary Dx); Centrilobular emphysema (CMS/HCC) (HCC); Hypersomnolence; Post-COVID chronic cough Social History Tobacco Use Types Packs/Day Years [...] on file 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 Gender Identity Not on file Sexual Orientation Not on file documented as of this encounter Last Filed Vital Signs Vital Sign Reading Time Taken Comments Blood Pressure 120/60 09/14/2022 9:01 AM PARK SERVICES SPECIALIST Pulse 67 09/14/2022 9:01 AM PARK SERVICES SPECIALIST Temperature 36.3 ??C (97.3 ??F) 09/14/2022 9:01 AM CS T Respiratory Rate 16 09/14/2022 9:01 AM PARK SERVICES SPECIALIST Oxygen Saturation 98% 09/14/2022 9:01 AM PARK SERVICES SPECIALIST Inhaled Oxygen Concentration - - Weight 69.5 kg (153 lb 4.8 oz) 09/14/2022 9:01 A M PARK SERVICES SPECIALIST Height 154.9 cm (5' 1 ) 09/14/2022 9:01 AM PARK SERVICES SPECIALIST Body Mass Index 28.97 09/14/2022 9:01 AM PARK SERVICES SPECIALIST documented in this encounter Patient Instructions * Patient Instructions* Ho Jarrett MD - 09/14/2022 9:00 AM PARK SERVICES SPECIALIST Dextromethorphan, guaifenesin SERVICES SPECIALIST documented in this encounter Ordered Prescriptions Prescription Sig Dispense Quantity Refills Last Filled Start Date End Date albuterol HFA (PROVENTIL HFA,VENTOLIN HFA,PROAIR HFA) 90 mcg/actuation inhaler Inhale 2 puffs every 6 (six) hours as needed for wheezing 1 each 2 09/14/2022 4 documented in this encounter Progress Notes * Ho Jarrett MD - 09/14/2022 9:00 AM CST Images from the original note were not included. PULMONARY CLINIC NOTE Visit Date: 09/14/2022 Chief Complaint: Presents today for Shortness of breath HPI: Mirtha Cherry is a 57 y.o. female w/ PMH of bilateral mastectomy in 2018 for abnormal mammogram/MRIand found to have precancerous lesions (no radiation), peripheral arterial disease status post stenting, esophageal stricture who presents on 09/14/2022 for evaluation of dyspnea on exertion. She was referred by her marketing professional. Diagnosed with asthma 20 years ago. She had not been on any regular inhaler therapy. She has had relatively stable dyspnea but reports it may be increased over the past several years. She underwent pulmonary function testing which was indicative of air trapping and impaired diffusion. Interval History: She ended up starting bevespi and reported that her cough completely resolved. She had Covid-19 in early August. Symptoms were primarily upper respiratory but has had a new cough.Cough worse at night and first thing in the morning but not all the time. Has not used any rescue treatments since her last appointment. She is not tried any cough medicines or mucolytics. 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 HX OTHER MEDICAL vocal cord polyp; Comments: removed and benign. 2003 HX OTHER MEDICAL Allergies, seasonal; Comments: DNT 07/10/2014 - HX OTHER MEDICAL migraines; Comments: DNT 07/10/2014 - HX OTHER MEDICAL PVD; Comments: DNT 07/10/2014 - HX OTHER MEDICAL Stent Placement Hypercholesterolemia High cholesterol; Comments: DNT 07/10/2014 - Peripheral vascular disease (CMS/HCC) (HCC) Peripheral vascular disease; Comments: 2 in [...] systems is negative. OBJECTIVE: Physical Exam: Vitals: 09/14/22 0901 BP: 120/60 BP Location: Left arm Patient Position: Sitting Pulse: 67 Resp: 16 Temp: 36.3 ??C (97.3 ??F) TempSrc: Temporal SpO2: 98% Weight: 69.5 kg (153 lb 4.8 oz) Height: 154.9 cm (5' 1 ) General: appears comfortable in no apparent distress Eyes: anicteric, no redness or drainage, EOMI Neck: no thyromegaly or lymphadenopathy Cardiovascular: regular rate and rhythm, no murmurs, no edema or JVD Respiratory: Some inspiratory squeaks, non labored Gastrointestinal: abdomen is soft and non-tender, + bowel sounds Musculoskeletal: no joint swelling or tenderness Neurologic: No focal deficits Skin: warm and dry, redness around the nasal labial fold and upper lip, no crust today Data Review: Low-dose CT scan for lung cancer screening [...] and diffusion impairment, suggestive of COPD/emphysema - she notes significant improvement after starting Bevespi, will continue twice daily - she has not been using her albuterol, she may resume using this as needed 2. Cigarette nicotine dependence without complication - she continues to cut back on smoking, cessation was discussed for greater than 4 minutes - discussed finding habits to replace cigarettes, she is currently crocheting - repeat low-dose CT scan for lung cancer screening in 3 months to follow endobronchial lesion - CT Lung Cancer Screening; Future 3. Hypersomnolence - snoring without evidence of airflow obstruction - CPAP is not indicated 4. Post-COVID chronic cough - recommend starting with pton-ptn-cyxnifi treatment - she may use her albuterol as needed - if no improvement by next appointment we may consider adding an inhaled steroid Ho Jarrett MD There may be syntax/grammatical errors in this note due to the use of voice recognition software. SERVICES SPECIALIST documented in this encounter Plan of Treatment Upcoming Encounters Date Type Department Care Team (Late st Contact Info) Description 02/04/2025 9:30 AM CDT Hospital Encounter [address] [address] Vic Gaines, DO 3 [facility] [address] [place] [address] 02/04/2025 9:30 AM CDT - 02/04/2025 10:00 AM CDT Surgery [address] [address] Vic Gaines, DO 3 [facility] [place] [address] [place] [address] COLONOSCOPY Scheduled Procedures Name Priority Associated Diagnoses Date/Ti va COLONOSCOPY Encounter for screening colonoscopy 02/04/2025 9:30 AM CDT documented as of this encounter Visit Diagnoses Diagnosis Cigarette nicotine dependence without complication- Primary Centrilobular emphysema (HCC) Hypersomnolence Hypersomnia, unspecified Post-COVID chronic cough Encounter for screening colonoscopy documented in this encounter Discontinued Medications Medication Sig Discontinue Reason Start Date End Da te Bevespi Aerosphere 9-4.8 mcg inhaler INHALE 2 PUFFS BY MOUTH TWICE DAILY Therapy completed 03/08/2022 09/14/2022 albuterol HFA (PROVENTIL HFA,VENTOLIN HFA,PROAIR HFA) 90 mcg/actuation inhaler Inhale 2 puffs every 6 (six) hours as needed for wheezing Reorder 12/09/2021 09/14/2022 documented as of this encounter Additional Health Concerns Infection Onset Date Last Indicated Resolved Time COVID: Recovered Comment:Added based on recent COVID infection. 08/24/2022 08/28/2022 11/22/2022 3:[address] documented as of this encounter Care Teams Food Preparation Worker Relationship Specialty Start [place] [address] [place] [address] PCP - General Family Medicine 09/23/21 11/22/23 Phoenix Loredo MD Consulting Physician Cardiology 01/04/19 [place] [address] [place] [address] Dragline Operator Obstetrics and Gynecology 04/19/21 documented as of this encounter
--- OUTSIDE RECORDS SUMMARY | 2024-10-13 04:07 | XMS_ITS | Encounter Summary ---
Author Organization [facility] Healthcare Address [address] [place] [address] Care Team Providers Care Crabbing Machine Operator Name Role Phone Phoenix Loredo MD Unavailable [phone] Aylin Lundy MD Unavailable [phone] Harper Myers DO Primary Care Provider [phone] Reason for Referral * MRI/CAT/PET Scan (Routine) - Closed Specialty Diagnoses / Procedures Referred By Contac t Referred To Contact Radiology Diagnoses Cigarette nicotine dependence without complication Lung nodule Procedures CT Chest WO Contrast F/U Lung Screen Protocol CT Chest WO Contrast F/U Lung Screen Protocol Ho Jarrett MD [address] [place] [address] DR SU [address] [place] [address] Phone: tel: fax: [address] [phone] Referral ID Status Reason Start Date Expiration Date Visits Re quested Visits Authorized [id number] Closed 09/14/2022 10/14/2023 1 1 AULIC MINER BLASTING Reason for Visit * MRI/CAT/PET Scan (Routine) - Closed Specialty Diagnoses / Procedures Referred By Denton t Referred To Contact Radiology Diagnoses Cigarette nicotine dependence without complication Lung nodule Procedures CT Chest WO Contrast F/U Lung Screen Protocol CT Chest WO Contrast F/U Lung Screen Protocol Ho Jarrett MD [address] [place] [address] DR [place] [address] [place] [address] Phone: tel: fax: [address] [phone] Referral ID Status Reason Start Date Expiration Date Visits Re quested Visits Authorized [id number] Closed 09/14/2022 10/14/2023 1 1 Encounter Details Date Type Department Care Team (Latest Contact Info) Description 12/12/2022 8:14 AM HYDRAULIC MINER BLASTING - 12/12/2022 11:59 PM HYDRAULIC MINER BLASTING Hospital Encounter [facility] [address] [place] [address] Cigarette nicotine dependence without complication; Lung nodule Discharge Disposition: Discharge to home or self [...] file 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 Gender Identity Not on file Sexual Orientation Not on file documented as of this encounter Medications at Time of Discharge albuterol (PROVENTIL,VENTOLIN ) 2.5 mg /3 mL (0.083 %) nebulizer solution Take 3 mL (2.5 mg total) by nebulization every 6 (six) hours as needed for wheezing 75 mL 2 9 02/24/20 23 albuterol HFA (PROVENTIL HFA,VENTOLIN HFA,PROAIR HFA) 90 mcg/actuation inhaler Inhale 2 puffs every 6 (six) hours as needed for wheezing 1 each 2 2 05/14/20 24 aspirin 81 mg enteric coated tablet Take 1 tablet (81 mg total) by mouth daily 90 tablet 3 2 06/21/20 23 atorvastatin (LIPITOR) 40 mg tablet Take 1 tablet (40 mg total) by mouth daily 90 tablet 3 3 11/30/19 24 clopidogreL (PLAVIX) 75 mg tablet TAKE 1 TABLET(75 MG) BY MOUTH DAILY 90 tablet 3 2 09/04/20 23 coenzyme Q10 (CO Q-10) 200 mg capsule Take 1 capsule by oral route every day 0 0 7 05/14/20 24 famotidine (Pepcid) 40 mg tablet Take 1 tablet (40 mg total) by mouth nightly 90 tablet 3 2 06/21/20 23 fluticasone propionate (FLONASE) 50 mcg/actuation nasal spray Administer 1 spray into each nostril daily 16 g 11 2 06/21/20 23 glycopyrrolate-form oteroL (Bevespi Aerosphere) 9-4.8 mcg inhaler Inhale 2 puffs 2 (two) times a day 10.7 g 3 3 12/20/19 23 Lactobacillus acidophilus (PROBIOTIC) 10 billion cell capsule [...] 1 capsule by mouth daily 05/14/20 24 pimecrolimus (ELIDEL) 1 % creamIndications:Ec zema of both hands Apply topically 2 (two) times a day 30 g 1 9 06/21/20 23 SUMAtriptan (IMITREX) 50 mg tabletIndications:O ther migraine without status migrainosus, not intractable May repeat dose once in 2 hours if no relief. Do not exceed 2 doses in 24 hours. 9 tablet 3 2 06/21/20 23 documented as of this encounter Discharge Disposition Disposition Code Departure Means Destination Discharge to home or self care documented in this encounter Plan of Treatment Upcoming Encounters Date Type Department Care Team (Late st Contact Info) Description 02/04/2025 9:30 AM CDT Hospital Encounter [facility] [address] [place] [address] Vic Gaines, DO [address] [place] [address] [place] [address] 02/04/2025 9:30 AM CDT - 02/04/2025 10:00 AM CDT Surgery [facility] [address] [place] [address] Vic Gaines, DO [address] [place] [address] [place] [address] COLONOSCOPY Scheduled Procedures Name Priority Associated Diagnoses Date/Ti me COLONOSCOPY Encounter for screening colonoscopy 02/04/2025 9:30 AM CDT documented as of this encounter Procedures Procedure Name Priority Date/Time Associated Diagnosis Comments CT CHEST WO CONTRAST F/U LUNG SCREEN PROTOCOL Schedule Routine, Read Routine (OP Routine) 12/12/2022 8:32 AM HYDRAULIC MINER BLASTING Cigarette nicotine dependence without complication Lung nodule documented in this encounter Results * CT Chest WO Contrast F/U Lung Screen Protocol (12/12/2022 8:32 AM HYDRAULIC MINER BLASTING) Anatomical Region Laterality Modality Chest N/A Computed Tomogra phy 12/13/2022 11:0 6 AM HYDRAULIC MINER BLASTING Narrative 12/13/2022 11:53 AM HYDRAULIC MINER BLASTING EXAM DESCRIPTION: ?? CT CHEST WO CONTRAST F/U LUNG SCREEN PROTOCOL REASON FOR STUDY: Screening CT of the chest in a ?? current ??smoker with a ??41 ?? pack year smoking history. Additional history: Chronic obstructive pulmonary disease. ??History of breast cancer status post double mastectomy. TECHNIQUE: Low dose CT scan of the [...] CT dose index volume (CTDIvol) = ?? 1.27 ??mGy COMPARISON: ?? 09/12/2022 FINDINGS: SMOKING RELATED LUNG DISEASE: ?? Mild emphysema with centrilobular and paraseptal components, and upper lung predominance. LUNG NODULES: ?? Multiple small lung volumes are again seen scattered throughout both lungs, measuring up to 4 mm. ??For reference, there is an unchanged 4 mm nodule in the right upper lobe on axial image 44, and a 4 mm nodule is seen in the right lower lobe on image 197. ??No new nodules are identified in either lung. ??Several subpleural/fissural lymph nodes are seen. CORONARY ARTERY CALCIFICATION: ??[id number]. OTHER: ?? There is no focal consolidation. ??Minimal areas of peripheral scarring. ??The airways are patent and normal in caliber. ??No bronchial wall thickening. ??No pleural effusion or pneumothorax. ??No suspicious lymphadenopathy is seen in the chest. ??No mediastinal masses. ??The heart size is normal. ??No pericardial effusion. ??The thoracic aorta is atherosclerotic, but normal in caliber. ??The central pulmonary arteries have normal caliber. ?? Bilateral mastectomy changes. ??Limited images through the upper abdomen are unremarkable. ??Examination of bone windows demonstrates no suspicious lytic or blastic lesions. ??Mild degenerative changes in the thoracic spine. IMPRESSION: ?? 1. ?? Several small lung nodules measuring up to 4 mm are unchanged throughout both lungs. ??No new suspicious lung nodules noted. 2. ?? Mild emphysema. 3. ?? Other findings as described above. Lung-RADS v1.1 category ??2: Benign appearance or behavior. Recommendation: ??Low dose Screening CT of chest in 12 months. THIS IS AN ELECTRONICALLY VERIFIED FINAL REPORT 12/13/2022 11:53 AM - Electronically signed by ??Lane Godfrey M.D. RL: NEYMAR D: ??12/13/2022 11:53 AM T: ??12/13/2022 11:53 AM Report ID: [id number] Reading Location: ??[id number] Tate MD - 12/13/2022 EXAM DESCRIPTION: CT CHEST WO CONTRAST F/U LUNG SCREEN PROTOCOL REASON FOR STUDY: Screening CT of the chest in a current smoker with a41 pack year smoking history. Additional history: Chronic obstructivepulmonary disease. History of breast cancer status post double mastectomy. TECHNIQUE: Low dose CT scan of the [...] DOSE: CT dose index volume (CTDIvol) = 1.27 mGy COMPARISON: 09/12/2022 FINDINGS: SMOKING RELATED LUNG DISEASE: Mild emphysema with centrilobular and paraseptal components, and upper lung predominance. LUNG NODULES: Multiple small lung volumes are again seen scattered throughout both lungs, measuring up to 4 mm. For reference, there is an unchanged 4 mm nodule in the right upper lobe on axial image 44, and a 4mm nodule is seen in the right lower lobe on image 197. No new nodules are identified in either lung. Several subpleural/fissural lymph nodes areseen. CORONARY ARTERY CALCIFICATION: [id number]. OTHER: There is no focal consolidation. Minimal areas of peripheral scarring. The airways are patent and normal in caliber. No bronchialwall thickening. No pleural effusion or pneumothorax. No suspicious lymphadenopathy is seen in the chest. No mediastinal masses. The heartsize is normal. No pericardial effusion. The thoracic aorta isatherosclerotic, but normal in caliber. The central pulmonary arteries have normalcaliber. Bilateral mastectomy changes. Limited images through the upper abdomenare unremarkable. Examination of bone windows demonstrates no suspiciouslytic or blastic lesions. Mild degenerative changes in the thoracic spine. IMPRESSION: 1. Several small lung nodules measuring up to 4 mm are unchangedthroughout both lungs. No new suspicious lung nodules noted. 2. Mild emphysema. 3. Other findings as described above. Lung-RADS v1.1 category 2: Benign appearance or behavior. Recommendation: Low dose Screening CT of chest in 12 months. THIS IS AN ELECTRONICALLY VERIFIED FINAL REPORT 12/13/2022 11:53 AM - Electronically signed by Lane Godfrey M.D. RL: NEYMAR Report ID: [id number] Reading Location: [id number] Ho Jarrett MD IMG CT PROCEDURES Final Result documented in this encounter Visit Diagnoses Diagnosis Cigarette nicotine dependence without complication Lung nodule Other diseases of lung, not elsewhere classified Encounter for screening colonoscopy documented in this encounter Care Teams Crabbing Machine Operator Relationship Specialty [place] [address] [place] [address] PCP - General Family Medicine 09/23/21 11/22/23 Phoenix Loredo MD Consulting Physician Cardiology 01/04/19 [place] [address] [place] [address] Horticultural Agent Obstetrics and Gynecology 04/19/21 documented as of this encounter
--- OUTSIDE RECORDS SUMMARY | 2024-10-13 04:07 | XMS_ITS | Encounter Summary ---
Author Organization [facility] Address [address] [place] [address] Care Team Providers Care Brim Pouncer Machine Operator Name Role Phone Phoenix Loredo MD Unavailable [phone] Aylin Lundy MD Unavailable [phone] Harper Myers DO Primary Care Provider [phone] Reason for Visit * Reason Onset Date Comments Med Refill 10/11/2022 Encounter Details Date Type Department Care Team (Late st Contact Info) Description 10/11/2022 Telephone [facility] Pulmonary at [address] [place] [address] Maggie Kauffman LPN Med Refill Social History Tobacco Use Types Packs/Day Years [...] on file 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 Gender Identity Not on file Sexual Orientation Not on file documented as of this encounter Miscellaneous Notes * Telephone Encounter - Maggie Kauffman LPN - 10/11/2022 8:45 AM FLASHER ADJUSTER Message through [employer] verified in chart and sent to pharmacy Last office visit 09/14/22 Next office visit 12/19/22 HER ADJUSTER documented in this encounter Plan of Treatment Upcoming Encounters Date Type Department Care Team (Late st Contact Info) Description 02/04/2025 9:30 AM CDT Hospital Encounter [address] [address] Vic Gaines, DO 3 [facility] [address] [place] [address] 02/04/2025 9:30 AM CDT - 02/04/2025 10:00 AM CDT Surgery [address] [address] Vic Gaines, DO 3 [facility] [address] [place] [address] COLONOSCOPY Scheduled Procedures Name Priority Associated Diagnoses Date/Ti me COLONOSCOPY Encounter for screening colonoscopy 02/04/2025 9:30 AM CDT documented as of this encounter Visit Diagnoses Not on filedocumented in this encounter Additional Health Concerns Infection Onset Date Last Indicated Resolved Time COVID: Recovered Comment:Added based on recent COVID infection. 08/24/2022 08/28/2022 11/22/2022 3:[address] documented as of this encounter Care Teams Brim Pouncer Machine Operator Relationship Specialty [place] [address] [place] [address] PCP - General Family Medicine 09/23/21 11/22/23 Phoenix Loredo MD Consulting Physician Cardiology 01/04/19 [place] [address] [place] [address] Mentally Impaired Teacher Obstetrics and Gynecology 04/19/21 documented as of this encounter
--- OUTSIDE RECORDS SUMMARY | 2024-10-13 04:07 | XMS_ITS | Encounter Summary ---
Author Organization [facility] Healthcare Address [address] [place] [address] Care Team Providers Care Development Technical Lead Name Role Phone Phoenix Loredo MD Unavailable [phone] Aylin Lundy MD Unavailable [phone] Harper Myers DO Primary Care Provider [phone] Reason for Referral * Sleep Medicine (Routine) - Closed Specialty Diagnoses / Procedures Referred By Contac t Referred To Contact Diagnoses TROY (obstructive sleep apnea) Procedures PSG Brianne Florez MD Phone: tel: [address] [phone] Referral ID Status Reason Start Date Expiration Date Visits Re quested Visits Authorized [id number] Closed 11/22/2021 12/22/2022 1 1 Reason for Visit * Sleep Medicine (Routine) - Closed Specialty Diagnoses / Procedures Referred By Contac t Referred To Contact Diagnoses TROY (obstructive sleep apnea) Procedures PSG Brianne Florez MD Phone: tel: [address] [phone] Referral ID Status Reason Start Date Expiration Date Visits Re quested Visits Authorized [id number] Closed 11/22/2021 12/22/2022 1 1 Encounter Details Date Type Department Care Team (Latest Contact Info) Description 12/23/2021 6:50 PM CDT - 12/23/2021 11:59 PM CDT Hospital Encounter [facility] [address] [place] [address] Brianne Florez MD [address] [place] [address] [place] [address] TROY (obstructive sleep apnea); Snoring Discharge Disposition: Discharge to home or self [...] on file Legal Sex Female 8:44 AM [employer] Gender Identity Not on file Sexual Orientation Not on file documented as of this encounter Medications at Time of Discharge albuterol (PROVENTIL,VENTOLI N) 2.5 mg /3 mL (0.083 %) nebulizer solution Take 3 mL (2.5 mg total) by nebulization every 6 (six) hours as needed for wheezing 75 mL 2 01/10/20 19 023 albuterol HFA (PROVENTIL HFA,VENTOLIN HFA,PROAIR HFA) 90 mcg/actuation inhaler Inhale 2 puffs every 6 (six) hours as needed for wheezing 1 each 2 12/10/19 22 022 aspirin 81 mg enteric coated tablet Take 1 tablet (81 mg total) by mouth daily 90 tablet 3 10/29/19 22 023 atorvastatin (LIPITOR) 40 mg tablet TAKE 1 TABLET(40 MG) BY MOUTH DAILY 90 tablet 3 09/10/20 21 023 clopidogreL (PLAVIX) 75 mg tablet TAKE 1 TABLET(75 MG) BY MOUTH DAILY 90 tablet 3 09/09/20 21 022 coenzyme Q10 (CO Q-10) 200 mg capsule Take 1 capsule by oral route every day 0 0 12/08/19 17 024 famotidine (Pepcid) 40 mg tablet Take 1 tablet (40 mg total) by mouth nightly 90 tablet 3 10/29/19 22 023 fluticasone propionate (FLONASE) 50 mcg/actuation nasal spray Administer 1 spray into each nostril daily 16 g 11 10/29/19 22 023 glycopyrrolate-for moteroL (BEVESPI AEROSPHERE) 9-4.8 mcg inhaler Inhale 2 puffs 2 (two) times a day 1080 mcg of glycopyrrolate 3 08/31/20 21 022 hydrOXYzine (ATARAX) 25 mg tabletIndications: Impetigo Take 1 tablet (25 mg total) by mouth every 8 (eight) hours as needed for itching 20 tablet 12/10/19 22 022 Lactobacillus acidophilus (PROBIOTIC) 10 billion cell capsule Take 1 capsule by oral route every day 0 0 12/08/19 17 024 loratadine (CLARITIN) 10 mg tablet Take 1 tablet (10 mg total) by mouth daily 024 metoprolol XL (TOPROL-XL) 25 mg extended release tabletIndications: Mixed hyperlipidemia,Mul tiple-type hyperlipidemia Take 1 tablet (25 mg total) by mouth daily 90 tablet 3 09/09/20 21 022 multivitamin capsule Take 1 capsule by mouth daily 024 nicotine (NICODERM CQ) [address] 1 patch on the skin daily 30 patch 1 08/31/20 21 022 pimecrolimus (ELIDEL) 1 % creamIndications:E czema of both hands Apply topically 2 (two) times a day 30 g 1 04/27/20 19 023 SUMAtriptan (IMITREX) 50 mg tabletIndications: Other migraine without status migrainosus, not intractable May repeat dose once in 2 hours if no relief. Do not exceed 2 doses in 24 hours. 9 tablet 3 10/29/19 22 023 documented as of this encounter Discharge Disposition Disposition Code Departure Means Destination Discharge to home or self care documented in this encounter Progress Notes * Brianne Florez MD - 12/23/2021 7:00 PM CDT Baseline Polysomnogram History: Mirtha Cherry is a 56 y.o. female who presents for baseline polysomnogram. Reason for sleep study: Snoring, excessive daytime sleepiness Past medical history: peripheral arterial disease status post stent, dyslipidemia, chronic tobacco use, carotid stenosis, frequent PVCs, obesity, allergic rhinitis, gastroesophageal reflux disease, migraine Medications: reviewed [place] sleepiness score: 16 BMI: 31.18 Procedure: This overnight diagnostic baseline polysomnogram was performed with the lead neurodiagnostic technologist in attendance. Patient is studied with multiple channel polysomnography to include EEG, sleep stage recording, cardio-respiratory monitoring, monitoring for limb movements as well as videotaping. Central, fron tiffany, occipital and temporal EEG, bilateral EOG, submental EMG, oral and nasal airflow, thoracoabdominal motion, bilateral anterior tibialis EMG, one lead EKG, snore sensor, pulse oximetry and transcutaneous CO2 were monitored. Sleep stages, periodic limb movements, EEG arousals and respiratory events were scored according to the criteria from The [place] [employer] (AASM) Manual for the scoring of sleep and associated events - version 2.6. Findings: Baseline parameters: Baseline heart rate =75/m , Respiratory rate=20/m, Oxygen saturation =92% Sleep architecture: Polysomnogram revealed total recording time of 425.0 minutes and total sleep time of 321.5 minutes with sleep efficiency of 75.7%. Sleep onset latency was 1.5min, and REM latency 203.5min. N1 15.2%, N2 62.4%, N3 10.3% and REM 12.1% accounted for the total sleep time. EEG profile: EEG was reviewed. Snoring profile: The patient had mild snoring. Snoring was not associated with arousals. Respiratory analysis: A total of 0 obstructive apneas, 0 mixed apneas, 0 central apneas and 5 hypopneas were seen with AHI of 0.9 per hour. In addition, 20 Respiratory Effort Related Arousals (RERAs)were seen with AHI+RERA index or respiratory disturbance index (RDI) of 4.7. Non-supine REM sleep was studied with respiratory events. Patient had minimal supine sleep. Respiratory events occurred more in supine than non-supine position with supine RDI of 13.3, nonsupine RDI of 4.6 and during REM sleep with REM RDI of 13.8 and NREM RDI of 3.4. Baseline TcCO2 not available. Maximum TcCO2 was 37 mmHg during the study. Multiple TcCO2 artifacts were seen during the study. Oximetry data: Lowest oxygen saturation was 89%. The patient had an O2 saturation <= 88% for 0.0min. Lowest oxygen saturation was associated with a respiratory event. Limb movement profile: There were no periodic limb movements seen in this study. Parasomnia profile: No abnormal behavior to suggest parasomnia was noted. EKG analysis: revealed very frequent episodes of all these- bigeminy, trigeminy, quadrigeminy, and PVCs. Interpretation and Recommendations: This is an abnormal polysomnogram due to the presence of: 1. Mild intermittent snoring. Patient does not meet diagnostic criteria for sleep apnea and therefore does not qualify for CPAP therapy. Respiratory events occurred more in supine than nonsupine position and during REM sleep. But, it is to be noted that patient had minimal supine sleep of only 13.5minutes and decreased REM sleep of only 12.1% during this study. Snoring could be due to multiple factors such as obesity, thyroid disease, and structural/obstructive abnormalities in the upper airway. An evaluation and management of these factors may be helpful. If snoring is bothersome either to patient or to family members, ENT examination may be helpful. Oral appliances may be another option. 2. Weight loss for ideal body weight range is recommended. 3. EKG analysis revealed very frequent episodes of all these- bigeminy, trigeminy, quadrigeminy, and PVCs. Clinical correlation is recommended. 4. Short sleep latency is suggestive of excessive sleepiness. Patient???s sleep onset latency was 1.5 minutes. Further evaluation with a repeat polysomnography or MSLT is recommended. Brianne Florez MD [facility] Sleep Medicine documented in this encounter Plan of Treatment Upcoming Encounters Date Type Department Care Team (Late st [facility] Info) Description 02/04/2025 9:30 AM CDT Hospital Encounter [facility] [address] [place] [address] Vic Gaines, DO 3 [facility] [address] [place] [address] 02/04/2025 9:30 AM CDT - 02/04/2025 10:00 AM CDT Surgery [facility] [address] [place] [address] Vic Gaines, DO 3 [facility] [address] [place] [address] COLONOSCOPY Scheduled Procedures Name Priority Associated Diagnoses Date/Ti me COLONOSCOPY Encounter for screening colonoscopy 02/04/2025 9:30 AM CDT documented as of this encounter Procedures Procedure Name Priority Date/Time Associated Diagnosis Comments PSG (SIMPLE) Routine 12/27/2021 TROY (obstructive sleep apnea) documented in this encounter Results * PSG (12/27/2021) Impressions Brianne Florez MD - 12/27/2021 Baseline Polysomnogram ?? History: Mirtha Cherry is a 56 y.o. female who presents for baseline polysomnogram. Reason for sleep study: Snoring, excessive daytime sleepiness Past medical history: peripheral arterial disease status post stent, dyslipidemia, chronic tobacco use, carotid stenosis, frequent PVCs, obesity, allergic rhinitis, gastroesophageal reflux disease, migraine Medications: reviewed [place] sleepiness score: 16 BMI: 31.18 ? Procedure: This overnight diagnostic baseline polysomnogram was performed with the lead neurodiagnostic technologist in attendance. Patient is studied with multiple channel polysomnography to include EEG, sleep stage recording, cardio-respiratory monitoring, monitoring for limb movements as well as videotaping. Central, frontal, occipital and temporal EEG, bilateral EOG, submental EMG, oral and nasal airflow, thoracoabdominal motion, bilateral anterior tibialis EMG, one lead EKG, snore sensor, pulse oximetry and transcutaneous CO2 were monitored. Sleep stages, periodic limb movements, EEG arousals and respiratory events were scored according to the criteria from The [place] [employer] (AASM) Manual for the scoring of sleep and associated events - version 2.6. ? Findings:? Baseline parameters: Baseline heart rate =75/m , Respiratory rate=20/m, Oxygen saturation =92% ?? Sleep architecture: Polysomnogram revealed total recording time of 425.0 minutes and total sleep time of 321.5 minutes with sleep efficiency of 75.7%.?? Sleep onset latency was 1.5min, and REM latency 203.5min. ?? N1 15.2%,?? N2 62.4%, N3 10.3% and REM 12.1% accounted for the total sleep time. ?? EEG profile: EEG was reviewed. ?? Snoring profile: The patient had mild snoring. Snoring was not associated with arousals. ?? Respiratory analysis: A total of 0 obstructive apneas,??0 mixed apneas, 0 central apneas and 5 hypopneas were seen with AHI of 0.9 per hour. In addition, 20 Respiratory Effort Related Arousals (RERAs) were seen with AHI+RERA index or respiratory disturbance index (RDI) of 4.7.??Non-supine REM sleep was studied with respiratory events. ??Patient had minimal supine sleep. ?? Respiratory events occurred more in supine than non-supine position with supine RDI of 13.3, nonsupine RDI of 4.6 and during REM sleep with REM RDI of 13.8 and NREM RDI of 3.4. ?? Baseline TcCO2 not available. Maximum TcCO2 was 37 mmHg during the study. Multiple TcCO2 artifacts were seen during the study. ?? Oximetry data: Lowest oxygen saturation was 89%. The patient had an O2 saturation = 88% for 0.0min.? Lowest oxygen saturation was associated with a respiratory event. ?? Limb movement profile: ??There were no periodic limb movements seen in this study. ?? Parasomnia profile: No abnormal behavior to suggest parasomnia was noted. EKG analysis: revealed very frequent episodes of all these- bigeminy, trigeminy, quadrigeminy, and PVCs. ?? Interpretation and Recommendations: ?? This is an abnormal polysomnogram due to the presence of: ? 1. Mild intermittent snoring. Patient does not meet diagnostic criteria for sleep apnea and therefore does not qualify for CPAP therapy. ??Respiratory events occurred more in supine than nonsupine position and during REM sleep. ??But, it is to be noted that patient had minimal supine sleep of only 13.5 minutes and decreased REM sleep of only 12.1% during this study. ??Snoring could be due to multiple factors such as obesity, thyroid disease, and structural/obstructive abnormalities in the upper airway. An evaluation and management of these factors may be helpful. If snoring is bothersome either to patient or to family members, ENT examination may be helpful. Oral appliances may be another option. 2. Weight loss for ideal body weight range is recommended. 3. EKG analysis revealed very frequent episodes of all these- bigeminy, trigeminy, quadrigeminy, and PVCs. ??Clinical correlation is recommended. 4. Short sleep latency is suggestive of excessive sleepiness. Patient's sleep onset latency was 1.5 minutes. Further evaluation with a repeat polysomnography or MSLT is recommended. ? Brianne Florez MD [facility] Sleep Medicine ? Narrative Brianne Florez MD - 12/27/2021 In lab for review us Brianne Florez MD [facility] ORDERABLES Final Re sult documented in this encounter Visit Diagnoses Diagnosis TROY (obstructive sleep apnea) Obstructive sleep apnea (adult) (pediatric) Snoring Other dyspnea and respiratory abnormality Encounter for screening colonoscopy documented in this encounter Care Teams Development Technical Lead Relationship Specialty [place] [address] [place] [address] PCP - General Family Medicine 09/23/21 11/22/23 Phoenix Loredo MD Consulting Physician Cardiology 01/04/19 [place] [address] [place] [address] Supervisor Nutritional Yeast Obstetrics and Gynecology 04/19/21 documented as of this encounter
--- OUTSIDE RECORDS SUMMARY | 2024-10-13 04:07 | XMS_ITS | Encounter Summary ---
Author Organization [facility] Address [address] [place] [address] Care Team Providers Care Maintenance Groundskeeper Name Role Phone Phoenix Loredo MD Unavailable [phone] Aylin Lundy MD Unavailable [phone] Harper Myers DO Primary Care Provider [phone] Reason for Referral * Diagnostic Imaging (Routine) - Closed Specialty Diagnoses / Procedures Referred By Contac t Referred To Contact Diagnoses Atherosclerosis of ione arteries of extremities with intermittent claudication, bilateral legs (HCC) Procedures US ABE Kenzie Be NP [address] [place] [address] [address] Phone: tel: fax: [address] [address] Referral ID Status Reason Start Date Expiration Date Visits Re quested Visits Authorized [id number] Closed 05/17/2022 06/16/2023 1 1 Reason for Visit * Reason Comments Peripheral Artery Disease Encounter Details Date Type Department Care Team (Late st Contact Info) Description 05/17/2022 8:15 AM CDT Office Visit [place] [facility] at [address] [address] Kenzie Be NP [address] [place] [address] [address] [place] [id number] PVD (peripheral vascular disease) (CMS/HCC) (HCC) (Primary Dx); Dyslipidemia; Bilateral carotid artery stenosis; Atherosclerosis of ione arteries of extremities with intermittent claudication, bilateral legs (HCC) Social History Tobacco Use Types Packs/Day [...] on file 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 Gender Identity Not on file Sexual Orientation Not on file documented as of this encounter Last Filed Vital Signs Vital Sign Reading Time Taken Comments Blood Pressure 126/76 05/17/2022 8:15 AM CDT Pulse 69 05/17/2022 8:15 AM CDT Temperature 36.3 ??C (97.4 ??F) 05/17/2022 8:15 AM CD T Respiratory Rate 18 05/17/2022 8:15 AM CDT Oxygen Saturation - - Inhaled Oxygen Concentration - - Weight 72.1 kg (159 lb) 05/17/2022 8:15 AM CDT Height 154.9 cm (5' 1 ) 05/17/2022 8:15 AM CDT Body Mass Index 30.04 05/17/2022 8:15 AM CDT documented in this encounter Progress Notes * Kenzie Be NP - 05/17/2022 8:15 AM CDT Cardiology note Reason for Office Visit: PAD History of Present Illness: Moshe Hartley is a 57 y.o. female who presents to the office for a follow up visit for PAD, s/p stent placement, tobacco abuse and dyslipidemia. In 2004, patient had two bare metal stents placd in bilateral common iliac arteries.they were restented with ICAST ( 7 X 38 mm, post dilated using 8 mm balloon) covered stents in 2007 at [facility]. Patient had balloon angioplasty done for repeat stenosis in 2014. Patient was going to undergo bunion surgery and refered by staff genetic counselor for weak pedal pulses. US doppler showed [...] Improves with rest. Present for long time. Patint had harish angio with intervention on 09/09/2016 successful repeat stenting of the aortic bifurcation using kissing stents technique 8 x 59 ICAST covered stents post dilated balloon bilaterally. Post ABE had normalized Patient states feeling much better- no leg pain. ABE improved. Patient denies chest pain, SOB, palpitations. Patient still smoking. Walking 1/2- 1 mile. Not limited in ambulation. No open sores. Patient weight is stable Denies issues with her legs. Reports palpitations. Reports per her Fitbit, HR running 60s-70s. She also state she snores at night but has never been diagnosed with TROY. Interrupted sleep, daytime sleepy. Cat nap. Weight: 159 lbs Review of Systems: Review of Systems [...] loss. Histories: Past Medical History: Diagnosis Date ??? Asthma Asthma; Comments: DNT 07/10/2014 - ??? Dysphagia ??? Gastroesophageal reflux disease GERD ??? 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 HX OTHER MEDICAL 2010 capal tunnel release rt. ??? HX OTHER MEDICAL vocal cord polyp; Comments: removed and benign. 2004 ??? HX OTHER MEDICAL Allergies, seasonal; Comments: DNT 07/10/2014 - ??? HX OTHER MEDICAL migraines; Comments: DNT 07/10/2014 - ??? HX OTHER MEDICAL PVD; Comments: DNT 07/10/2014 - ??? HX OTHER MEDICAL Stent Placement ??? Hypercholesterolemia High cholesterol; Comments: DNT 07/10/2014 - ??? Peripheral vascular disease (CMS/HCC) (HCC) Peripheral vascular disease; Comments: 2 in each iliac. 3 surgeries. last procedure 01/08/2008 Past Surgical History: Procedure Laterality Date ??? BUNIONECTOMY Right 11/2016 ??? BUNIONECTOMY Left 02/2017 ??? CHOLECYSTECTOMY 1998 Cholecystectomy ??? CHOLECYSTECTOMY Cholecystectomy ??? MASTECTOMY MODIFIED RADICAL / SIMPLE / COMPLETE Bilateral 2018 ??? OTHER SURGICAL HISTORY Peripheral vascular disease: STENTS ??? OTHER SURGICAL HISTORY PVD: stents x 4 placed in 2004 and 2007 ??? OTHER SURGICAL HISTORY 2004 polypectomy for vocal cords Family History Problem Relation Age of Onset ??? Hypertension Father Hypertension; ??? Throat cancer Father Cancer -throat; Cause of : Cancer -throat ??? Other Brother Alive and well; ??? Other Brother Alive and well; ??? Other Sister Alive and well; ??? Other Brother Alive and well; ??? Depression Mother Depression; ??? Diabetes type I Mother Diabetes -Type 1; ??? Other Mother cataracts; ??? Brain cancer Mother's Sister brain cancer; ??? Lymphoma Mother's Sister Lymphoma; ??? Other Mother's Sister renal cell cancer; ??? Diabetes Other Family history of Diabetes mellitus; Social History Tobacco Use ??? Smoking status: Current Every Day Smoker Packs/day: 1.00 Years: 40.00 Pack years: 40.00 ??? Smokeless tobacco: Never Used ??? Tobacco comment: Smoking History Packs/day: 0.5 Packs Substance Use Topics ??? Alcohol use: No ??? Drug use: Never Allergies: Allergies Allergen Reactions ??? Adhesive Rash Reaction: Rash, ??? Codeine Nausea only, Nausea Only and Unknown Reaction: Nausea, ??? Adhesive Tape-Silicones Itching, Other (See comments) and Unknown blisters ??? Povidone-Iodine Itching Medications: Current Outpatient Medications Medication Sig Dispense Refill ??? albuterol (PROVENTIL,VENTOLIN) 2.5 mg /3 mL (0.083 %) nebulizer solution Take 3 mL (2.5 mg total) by nebulization every 6 (six) hours as needed for wheezing 75 mL 2 ??? albuterol HFA (PROVENTIL HFA,VENTOLIN HFA,PROAIR HFA) 90 mcg/actuation inhaler Inhale 2 puffs every 6 (six) hours as needed for wheezing 1 Inhaler 2 ??? amoxicillin-clavulanate (AUGMENTIN) 875-125 mg per tablet Take 1 tablet by mouth 2 (two) times a day for 7 days 14 tablet 0 ??? aspirin 81 mg tablet Take 81 mg by mouth. ??? atorvastatin (LIPITOR) 40 mg tablet ??? clopidogrel (PLAVIX) 75 mg tablet Take 75 mg by mouth. ??? coenzyme Q10 (CO Q-10) 200 mg capsule Take 1 capsule by oral route every day 0 0 ??? fluticasone propionate (FLONASE) 50 mcg/actuation nasal spray SHAKE LIQUID AND USE 1 SPRAY IN EACH NOSTRIL DAILY 16 mL 2 ??? Lactobacillus acidophilus (PROBIOTIC) 10 billion cell capsule Take 1 capsule by oral route every day 0 0 ??? loratadine (CLARITIN) 10 mg tablet Take 10 mg by mouth daily. ??? multivitamin capsule Take 1 capsule by mouth daily. ??? pimecrolimus (ELIDEL) 1 % cream Apply topically 2 (two) times a day 30 g 1 ??? raNITIdine (ZANTAC) 300 mg tablet Take 1 tablet (300 mg total) by mouth 2 (two) times a day 60 tablet 11 ??? SUMAtriptan (IMITREX) 50 mg tablet TAKE 1 TABLET BY MOUTH EARLY POSSIBLE AFTER ONSET OF MIGRAINE. REPEAT 1 DOSE IN 2 HRS IF HEADACHE RETURNS. 9 tablet 2 ??? trimethoprim-polymyxin B (POLYTRIM) ophthalmic solution Administer 1 drop into both eyes every 4 (four) hours while awake 10 mL 0 No current facility-administered medications for this visit. Vital Signs: Vitals BP 126/76 (BP Location: Right arm, Patient Position: Sitting) Pulse 69 Temp 36.3 ??C (97.4 ??F) Resp 18 Ht 154.9 cm (5' 1 ) Wt 72.1 kg (159 lb) LMP (LMP Unknown) BMI 30.04 kg/m?? Vitals: 05/17/22 0815 BP: 126/76 Pulse: 69 Resp: 18 Temp: 36.3 ??C (97.4 ??F) Wt Readings from Last 3 Encounters: 05/17/22 72.1 kg (159 lb) 01/21/22 75.5 kg (166 lb 6.4 oz) 01/09/22 74.8 kg (165 lb) Body mass index is 30.04 kg/m??. Physical Exam: Physical Exam Constitutional: General: She is not in acute distress. Appearance: Normal appearance. She is well-developed. She is not diaphoretic. HENT: Mouth/Throat: Pharynx: No oropharyngeal exudate. Eyes: Conjunctiva/sclera: Conjunctivae normal. Pupils: Pupils are equal, round, and reactive to light. Neck: Vascular: No carotid bruit or JVD. [...] normal and S2 normal. No gallop. Comments: Pedal pulses with doppler Pulmonary: Effort: Pulmonary effort is normal. Breath [...] Lab Results Component Value Date INR 1.0 04/29/2021 INR 0.95 06/01/2017 INR 0.95 01/07/2016 Lab Results Component Value Date PT 11.5 04/29/2021 PT 10.7 06/01/2017 Lab Results Component Value Date TSH 1.28 12/29/2018 Lab Results Component Value Date AST 20 10/15/2021 ALT 23 10/15/2021 ALKPHOS 103 10/15/2021 ALBUMIN 4.3 10/15/2021 Lab Results Component Value Date SODIUM 137 10/15/2021 POTASSIUM 4.7 10/15/2021 CHLORIDE 102 10/15/2021 CO2 26 10/15/2021 ANIONGAP 9 10/15/2021 GLUCOSEUR Negative 09/17/2021 No results found for: BNP Lab Results Component Value Date SODIUM 137 10/15/2021 SODIUM 140 04/29/2021 SODIUM 141 04/10/2021 POTASSIUM 4.7 10/15/2021 POTASSIUM 4.5 04/29/2021 POTASSIUM 4.1 04/10/2021 CHLORIDE 102 10/15/2021 CHLORIDE 105 04/29/2021 CHLORIDE 106 04/10/2021 CO2 26 10/15/2021 CO2 26 04/29/2021 CO2 25 04/10/2021 BUNSER 12 10/15/2021 BUNSER 9 04/29/2021 BUNSER 14 04/10/2021 CREATININE 0.87 10/15/2021 CREATININE 0.95 04/29/2021 CREATININE 0.72 04/10/2021 GFRNAA 78 10/15/2021 GFRNAA 66 04/29/2021 GFRNAA 94 04/10/2021 GLUCOSE 109 10/15/2021 CALCIUM 9.0 10/15/2021 CALCIUM 9.1 04/29/2021 CALCIUM 8.8 04/10/2021 ALBUMIN 4.3 10/15/2021 ALBUMIN 4.1 04/10/2021 ALBUMIN 4.3 06/13/2020 Lab Results Component Value Date SODIUM 137 10/15/2021 POTASSIUM 4.7 10/15/2021 CHLORIDE 102 10/15/2021 CO2 26 10/15/2021 ANIONGAP 9 10/15/2021 BUNSER 12 10/15/2021 CREATININE 0.87 10/15/2021 GLUCOSE 109 10/15/2021 CALCIUM 9.0 10/15/2021 BILITOT 0.4 10/15/2021 PROT 6.9 10/15/2021 ALBUMIN 4.3 10/15/2021 ALKPHOS 103 10/15/2021 ALT 23 10/15/2021 AST 20 10/15/2021 Lab Results Component Value Date WBC 8.5 10/15/2021 HGB 15.3 10/15/2021 HCT 45.7 (H) 10/15/2021 LABPLAT 224 10/15/2021 MPV 10.8 10/15/2021 RBC 4.96 10/15/2021 MCV 92.1 10/15/2021 MCH 30.8 10/15/2021 MCHC 33.5 10/15/2021 RDWCV 13.0 10/15/2021 RDWSD 44.3 10/15/2021 NRBCABS 0.00 10/15/2021 Lab Results Component Value Date CHOL 155 10/15/2021 TRIG 170 (H) 10/15/2021 HDL 36 (L) 10/15/2021 LDLCALC 85 10/15/2021 NONHDLCHOL 119 10/15/2021 CHOLHDL 4 10/15/2021 Testing: Tests: 05/2016 Ankle-brachial Index ratio was [...] left 10/2019Rt ABE 1.00 Lt ABE 1.00 7/2/2018bcarotid duplex mild bilateral. Labs in 05/2016 Chol [...] the ankle. EK12/2015 SR possible old anterior ID 07/2016 SR , possible old anterior ID AIF 05/2021 IMPRESSION 1. Patent previously-implanted covered [...] normal, ABE 1.04, with biphasic wave form. EKG 07/12/2021 showed sinus rhythm with PVCs. [...] ABE 07/2021 and October 2021 were normal. #2 Hyperlidemia- followed by PCP, LDL above target #3 Tobacco abuse, ongoing trying to quit #4 Carotid stenosis, mild by duplex 07/2021 #5 Frequent PVCs, 11% burden by a monitor in August 2021. Normal echo. Negative nuclear stress test in September 2021 although borderline by EKG criteria Plan: Continue same medication regimen. recommended to increase statin but patient wants to stick with dietary changes for now Continue tight control of blood pressure and cholesterol. Continue diet, exercise, and weight reduction. RTC 6 mo with ABE BNV RTC 6 months with ABE Diagnoses and all orders for this visit: PVD (peripheral vascular disease) (CMS/HCC) (HCC) (Primary) Dyslipidemia Bilateral carotid artery stenosis No follow-ups on file. 05/17/2022 @ 8:33 AM Kenzie Be NP Cc:Harper Myers, documented in this encounter Miscellaneous Notes * Addendum Note - Paige Hernadez MA - 05/17/2022 8:15 AM CDTAddended by: PAIGE HERNADEZ on: 05/17/2022 08:39 AM Modules accepted: Orders documented in this encounter Plan of Treatment Upcoming Encounters Date Type Department Care Team (Late st Contact Info) Description 02/04/2025 9:30 AM CDT Hospital Encounter [address] [address] Vic Gaines, DO 3 [facility] [address] [place] [address] 02/04/2025 9:30 AM CDT - 02/04/2025 10:00 AM CDT Surgery [address] [address] Vic Gaines, DO 3 [facility] [address] [place] [address] COLONOSCOPY Scheduled Procedures Name Priority Associated Diagnoses Date/Ti me COLONOSCOPY Encounter for screening colonoscopy 02/04/2025 9:30 AM CDT documented as of this encounter Results * US ABE (12/20/2022 2:36 PM CDT) Anatomical Region Laterality Modality Vascular N/A Ultrasound 12/20/2022 2:22 PM CDT Narrative 12/20/2022 4:19 PM CDT [address] [address] Ankle Brachial Index Report Patient Name: MOSHE HARTLEY ?? : 1965 (57y 8m) ??Gender: F Study Date: 12/20/2022 2:22:[address] Conductor: Order Provider: KENZIE BE Quality: Adequate Ref.Provider: KENZIE BE Procedures: Arterial Report: A bilateral extremities ankle/brachial index was performed. Indications: Claudication. Conclusions: 1. There is mild arterial disease in the right lower extremity, ABE 0.85, biphasic wave form. 2. There is mild arterial disease in the left lower extremity, ABE 0.81, biphasic wave form. Findings: Measurements: RightValueLeftValue Electronically Signed By: Conrad Martinez 2022-12-20 16:19:07 CDT Procedure Note Conrad Martinez MD - 12/20/[address] [address] Ankle Brachial Index Report Patient Name: Elver HARTLEYent ID: [id number] : 1965 (57y 8m) Gender: FStudy Date: 12/20/2022 2:22:00 PM Order Provider: KENZIE BEQuality: Adequate Ref.Provider: KENZIE BE Procedures: Arterial Report: A bilateral extremities ankle/brachial index wasperformed. Indications: Claudication. Conclusions: 1. There is mild arterial disease in the right lower extremity, ABE 0.85,biphasic wave form. 2. There is mild arterial disease in the left lower extremity, ABE 0.81,biphasic wave form. Findings: Measurements: RightValueLeftValue Electronically Signed By: Conrad Martinez 2022-12-20 16:19:07 CDT Kenzie Thao Be RESEARCH NURSE PRACTITIONER G US PROCEDURES Final Result documented in this encounter Visit Diagnoses Diagnosis PVD (peripheral vascular disease) (HCC)- Primary Unspecified peripheral vascular disease Dyslipidemia Other and unspecified hyperlipidemia Bilateral carotid artery stenosis Occlusion and stenosis of carotid artery without mention of cerebral infarction Atherosclerosis of ione arteries of extremities with intermittent claudication, bilateral legs (HCC) Atherosclerosis of ione arteries of extremities with intermittent claudication, bilateral legs (HCC) Encounter for screening colonoscopy documented in this encounter Care Teams Maintenance Groundskeeper Relationship Specialty [place] [address] [place] [address] PCP - General Family Medicine 09/23/21 11/22/23 Phoenix Loredo MD Consulting Physician Cardiology 01/04/19 [place] [address] [place] [address] Regulatory Consultant Obstetrics and Gynecology 04/19/21 documented as of this encounter
--- OUTSIDE RECORDS SUMMARY | 2024-10-13 04:07 | XMS_ITS | Encounter Summary ---
Author Organization [facility] Address [address] [place] [address] Care Team Providers Care Steel Turner Name Role Phone Phoenix Loredo MD Unavailable [phone] Aylin Lundy MD Unavailable [phone] Harper Myers DO Primary Care Provider [phone] Reason for Visit * Reason Comments Annual Exam Encounter Details Date Type Department Care Team (Late st Contact Info) Description 06/20/2022 7:30 AM CDT Office Visit [facility] Primary Care at [address] [place] [address] Harper Myers DO [address] [facility] [address] [address] Annual physical exam (Primary Dx); Sliding hiatal hernia; Need for pneumococcal vaccine; Flu vaccine need; Screening for deficiency anemia; Encounter for screening [...] Tobacco: Never Tobacco Cessation:Ready to Q uit: No; Counseling Given: Yes Comments:Smoking History Packs/day: 0.5 Packs Alcohol Use [...] on file 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 Gender Identity Not on file Sexual Orientation Not on file documented as of this encounter Last Filed Vital Signs Vital Sign Reading Time Taken Comments Blood Pressure 99/62 06/20/2022 7:19 AM CDT Pulse 65 06/20/2022 7:19 AM CDT Temperature 36.8 ??C (98.2 ??F) 06/20/2022 7:19 AM CD T Respiratory Rate 18 06/20/2022 7:19 AM CDT Oxygen Saturation 96% 06/20/2022 7:19 AM CDT Inhaled Oxygen Concentration - - Weight 70.8 kg (156 lb) 06/20/2022 7:19 AM CDT Height 154.9 cm (5' 0.98 ) 06/20/2022 7:19 AM CD T Body Mass Index 29.49 06/20/2022 7:19 AM CDT documented in this encounter Patient Instructions * Patient Instructions* Harper Myers, DO - 06/20/2022 7:30 AM CDT Images from the original note were not included. 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 The viruses tacking stitch remover time, so new vaccines are made each [...] Get a shingles vaccine if you are aged 60 or older, even if you have had shingles before. The shingles vaccine is an injection to protect you from the varicella-zoster virus. This is the same virus that causes chickenpox. Shingles is a painful rash that develops in people who had chickenpox or havebeen exposed to the virus. How to eat healthy: [...] could distract you and cause an accident. resource recovery specialist if you need to make a call [...] a boat or doing water sports. ?? 2017 [employer] Information is for End User's use only and may not be sold, redistributed or otherwise used for commercial purposes. All illustrations and images included in CareNotes?? are the copyrighted property of [employer]. or [employer]. The above information is an braid folder only. It is not intended as medical advice for individual conditions or treatments. Talk to your doctor, nurse or pharmacist before following any medical regimen to see if it is safe and effective for you. 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 Regular BSEs can help you know how your breasts normally look and feel. Most breast lumps or changes are not cancer, but you should always have them checked by a healthcare provider. Why you should do a BSE: Breast cancer is the most common type of cancer in women. Even if you havemammograms, you may still want to do a BSE regularly. If you know how your breasts normally feel and look, it may help you know when to contact your healthcare provider. Mammograms can miss some cancers. You may find a lump during a BSE that did not show up on your mammogram. When you should do a BSE: Vic your calendar to help you remember to do BSE on a regular schedule. One easy way to remember to do a BSE is to do the exam on the same day of each month. If you have periods, you may want to do your BSE 1 week after your period ends. This is the time when your breastsmay be the least swollen, lumpy, or tender. You can do regular BSEs even if you are or have breast implants. Contact your healthcare provider if: You find any lumps or changes in your breasts. You have breast pain or fluid coming from your nipples. You have questions or concerns about your condition or care. How to do a BSE: Look at your breasts in a mirror. Look at the size and shape of each breast and nipple. Check for swelling, lumps, dimpling, scaly skin, or other skin changes. Look for nipple changes, such as a nipple that is painful or beginning to pull inward. Gently squeeze both nipples and check to see if fluid (that is not breast milk) comes out of them. If you find any of these or other breast changes, contact your healthcare provider. Check your breasts while you sit or tufting machine operator the following 3 positions: Hang your arms down at your sides. Raise your hands and join them behind your head. Put firm pressure with your hands on your hips. Bend slightly forward while you look at your breasts in the mirror. Lie down and feel your breasts. When you lie down, your breast tissue spreads out evenly over your chest. This makes it easier for you to feel for lumps and anything that may not be normal for your breasts. Do a BSE on one breast at a time. Place a small pillow or towel under your left shoulder. Put your left arm behind your head. Use the 3 middle fingers of your right hand. Use your fingertip pads, on the top of your fingers. Your fingertip pad is the most sensitive part of your finger. Use small circles to feel your breast tissue. Use your fingertip pads to make dime-sized, overlapping circles on your breast and armpits. Use light, medium, and firm pressure. First, press lightly. Second, press with medium pressure to feel a little deeper into the breast. Last, use firm pressure to feel deep within your breast. Examine your entire breast area. Examine the breast area from above the breast to below the breast where you feel only ribs. Make small circles with your fingertips, starting in the middle of your armpit. Make circles going up and down the breast area. Continue toward your breast and all the way across it. Examine the area from your armpit all the way over to the middle of your chest (breastbone). Stop at the middle of your chest. Move the pillow or towel to your right shoulder, and put your right arm behind your head. Use the 3fingertip pads of your left hand, and repeat the above steps to do a BSE on your right breast. What else you can do to check for breast problems or cancer: Some experts suggest that women 40 years of age or older should have a mammogram every year. Other experts suggest that women between the ages of 50 and 74 years old should have a mammogram every 2 years. Talk to your healthcare provider about when you should have a mammogram. Follow up with your healthcare provider as directed: Your healthcare provider can watch you and tell you if you are doing your BSE correctly. Write down your questions so you remember to ask them during your visits. ?? 2017 [employer] Information is for End User's use only and may not be sold, redistributed or otherwise used for commercial purposes. All illustrations and images included in CareNotes?? are the copyrighted property of [employer]. or [employer]. The above information is an braid folder only. It is not intended as medical advice for individual conditions or treatments. Talk to your doctor, nurse or pharmacist before following any medical regimen to see if it is safe and effective for you. Health Maintenance Topics with due status: Overdue Topic Date Due DTaP/Tdap/Td Vaccine Never done Pneumococcal vaccine <65 12/17/2010 Zoster Vaccines Never done Covid-19 Vaccine 07/19/2021 Health Maintenance Topics with due status: Due On Topic Date Due Influenza Vaccine 06/09/2022 Thanks for coming in today! My biomedical engineer, Shona, and sometimes (Yael, Annie, or Urmila) and I are thankful you have trusted us with your care, and hope that you received EXCELLENT care today! Although some conditions may not allow immediate improvement, I aim to always make you feel a little better leaving, than when you came in. Please do not hesitate to call, if you have any questions or concerns, at [phone]. You may receive a phone call, text, MYCHART message, or e-mail asking you to take a survey about your care today. We would love to hear your feedback on how EXCELLENTyour care was today! Wishing you better health, always! Dr. Harper Myers documented in this encounter Progress Notes * Harper Myers DO - 06/20/2022 7:30 AM CDT Images from the original note were not included. Subjective/Objective Patient ID: Mirtha Cherry is a 57 y.o. female. Chief Complaint Chief Complaint Patient presents with Annual Exam HPI Patient returns to clinic today for her annual physical. She complains of feeling something slidingup in down in her chest. She has a history of a hiatal hernia. She had a upper endoscopy in 2020. She is not sure if she is ready to follow-up with gastroenterology at this point. She states that she would continue to monitor it. She admits to taking her famotidine as prescribed. Otherwise she is without complaints. Review of Systems Constitutional: Negative for fever. [...] other systems reviewed and are negative. Vitals: 06/20/22 0719 BP: 99/62 BP Location: Left arm Patient Position: Sitting Pulse: 65 Resp: 18 Temp: 36.8 ??C (98.2 ??F) TempSrc: Oral SpO2: 96% Weight: 70.8 kg (156 lb) Height: 154.9 cm (5' 0.98 ) Body mass index is 29.49 kg/m??. Physical Exam Vitals and nursing note reviewed. Constitutional: Appearance: Normal appearance. She is well-developed. Interventions: Face mask in place. HENT: Head: Normocephalic and atraumatic. Right Ear: [...] normal. Lab Results Component Value Date CHOL 155 10/15/2021 CHOL 157 04/10/2021 CHOL 144 06/13/2020 Lab Results Component Value Date HDL 36 (L) 10/15/2021 HDL 39 (L) 04/10/2021 HDL 40 06/13/2020 Lab Results Component Value Date LDLCALC 85 10/15/2021 LDLCALC 79 04/10/2021 LDLCALC 80 06/13/2020 LDL 105 05/28/2016 LDL 185 11/28/2015 LDL 68 11/18/2014 Lab Results Component Value Date TRIG 170 (H) 10/15/2021 TRIG 196 (H) 04/10/2021 TRIG 120 06/13/2020 Chemistry Component Value Date/Time SODIUM 137 10/15/2021 0813 POTASSIUM 4.7 10/15/2021 0813 POTASSIUM 4.1 06/03/2017 0720 CHLORIDE 102 10/15/2021 0813 CO2 26 10/15/2021 0813 BUNSER 12 10/15/2021 0813 CREATININE 0.87 10/15/2021 0813 GLUCOSE 109 10/15/2021 0813 Component Value Date/Time CALCIUM 9.0 10/15/2021 0813 ALKPHOS 103 10/15/2021 0813 AST 20 10/15/2021 0813 ALT 23 10/15/2021 0813 BILITOT 0.4 10/15/2021 0813 Lab Results Component Value Date WBC 8.5 10/15/2021 HGB 15.3 10/15/2021 HCT 45.7 (H) 10/15/2021 MCV 92.1 10/15/2021 LABPLAT 224 10/15/2021 Lab Results Component Value Date TSH 1.28 12/29/2018 Lab Results Component Value Date HGBA1C 5.8 (H) 11/18/2014 Diagnoses and all orders for this visit: Annual physical exam (Primary) Comments: Health maintenance updated. Orders: - CBC with auto differential; Future - Comprehensive metabolic panel; Future - Hemoglobin A1c; Future - Lipid panel; Future - TSH reflex to free T4; Future - Urinalysis reflex to microscopic and culture Urine, clean voided; Future Sliding hiatal hernia Assessment & Plan: Patient why the send me a message through [employer] or contact her capsule filler, Dr. Hansen, via [employer] for follow-up if needed. Need for pneumococcal vaccine - Pneumococcal conjugate vaccine 20-valent IM (Prevnar-20) Flu vaccine need - Flu Vaccine Quad PF 6m+ IM - Fluarix / FluLaval / Fluzone Screening for deficiency anemia - CBC with [...] microscopic and culture Urine, clean voided; Future Harper Myers DO This note is dictated and transcribed by [email or web address] Direct [employer]. Pad Extraction Tender variances may occur. Despite proofreading, typographical errors may occur. documented in this encounter Miscellaneous Notes * Assessment & Plan Note - Harper Myers DO - 06/20/2022 9:13 AM CDT Associated Problem(s): Sliding hiatal hernia Patient why the send me a message through [employer] or contact her capsule filler, Dr. Hansen, via [employer] for follow-up if needed. documented in this encounter Plan of Treatment Upcoming Encounters Date Type Department Care Team (Late st Contact Info) Description 02/04/2025 9:30 AM CDT Hospital Encounter [facility] [place] [address] Vic Gaines, DO [address] [address] 02/04/2025 9:30 AM CDT - 02/04/2025 10:00 AM CDT Surgery [facility] [address] [place] [address] Vic Gaines, DO [address] [address] COLONOSCOPY Scheduled Procedures Name Priority Associated Diagnoses Date/Ti me COLONOSCOPY Encounter for screening colonoscopy 02/04/2025 9:30 AM CDT documented as of this encounter Results * Urinalysis reflex to microscopic and culture Urine, clean voided (06/20/2022 7:43 AM CDT) Color, ur Yellow Yellow [facility] ([place]) Clarity, ur Clear Clear [facility] ([place]) Specific gravity, ur 1.016 1.003 - 1.030 [facility] ([place]) pH, urine 5.5 [facility] ([place]) Protein, ur ql Trace Negative [facility] ([place]) Glucose, ur ql [...] met. [facility] ([place]) Urine, clean voided 06/20/2022 7:43 AM CDT 06/20/2022 10:19 AM CDT Narrative [facility] ([place]) - 06/20/2022 10:26 AM CDT ?? Urine pH is affected by diet, medications, systemic acid-base disturbances, and renal tubular function. ??pH may affect urinary stone formation. ??For example, urine pH below 6.0 may help reduce the tendency for calcium phosphate stones and pH greater than 6.0 may reduce the tendency for uric acid stone formation. Source: [employer]. Last revised 10-19-2017 Harper Myers DO LAB MICROBIOLOGY - GENERAL ORDERABLES Final Result JAY I[facility] ([place]) 1 [facility] [employer] [place] [address] * TSH reflex to free T4 (06/20/2022 7:43 AM CDT) TSH 1.42 0.30 - 4.20 mcIUnit/mL [facility] I[facility] ([place]) Blood 06/20/2022 7:43 AM CDT 06/20/2022 10:19 AM CDT Harper Myers DO LAB BLOOD ORDERABLES Final Result Performing Organization Address City/[facility]/ZIP Co de Phone Number JAY I[facility]QUIERDO ([place]) 1 [facility] [employer] [place] [address] * (ABNORMAL) Lipid panel (06/20/2022 7:43 AM CDT) Cholesterol 143 30 - 199 mg/dL [facility] I[facility] ([place]) [...] Data was last revised on 2018. Triglycerides 144 <=149 mg/dL [facility] ([place]) Comment: Interpretive Data [...] Data was last revised on 2018. HDL 35(L) >=40 mg/dL JAY [facility]) Comment: Interpretive Data [...] was last revised on 2018. LDL, calculated 79 <=129 mg/dL JAY [facility]) Comment: Interpretive Data Ages [...] was last revised on 2018. Non-HDL Cholesterol 108 mg/dL JAY R[facility]) Comment: Interpretive Data Ages [...] revised on 2018. Chol/HDL ratio 4 DEEPAK RODNEY) Blood 06/20/2022 7:43 AM CDT 06/20/2022 10:19 AM CDT us Harper Myers DO LAB BLOOD ORDERABLES Final Result JAY IZQUIERDO ([place]) 1 [facility] [place] [address] * Hemoglobin A1c (06/20/2022 7:43 AM CDT) Hgb A1C 5.6 4.0 - 5.6 % JAY [facility]) Estimated Average Glucose 114 mg/dL JAY R[facility]) Comment: The ADA recommends reporting an estimated Average Glucose (eAG) with all Hemoglobin A1c results using the equation derived from a study of 507 normal and diabetic adults. ??Minority populations were underrepresented and children were not included. ?? (Diabetes Care 31:1743-9709, 2008). ??The eAG is not equivalent to a fasting glucose. Blood 06/20/2022 7:43 AM CDT 06/20/2022 10:19 AM CDT us Harper Myers DO LAB BLOOD ORDERABLES Final Result [facility] ([place]) 1 [facility] Department [place] [address] * Comprehensive metabolic panel (06/20/2022 7:43 AM CDT) Sodium 142 135 - 145 mmol/L [facility] ([place]) Potassium, pl 4.6 3.3 - 4.9 mmol/L [facility] ([place]) Chloride 108 97 - 110 mmol/L [facility] ([place]) CO2 23 22 - 32 mmol/L [facility] ([place]) Anion gap 11 2 - 15 mmol/L [facility] ([place]) BUN 10 8 - 25 mg/dL [facility] Creatinine 0.85 0.60 - 1.10 mg/dL [facility] ([place]) Glucose 106 70 - 199 mg/dL [facility] ([place]) Comment: Interpretive Data Fasting glucose [...] classification and Diagnosis of Diabetes Diabetes Care 2017;40 (Suppl. 1):S11. Current interpretive data was last revised 2017. Calcium 9.4 8.5 - 10.3 mg/dL [facility] ([place]) Bilirubin, total 0.4 0.1 - 1.2 mg/dL [facility] ([place]) Protein, pl 6.7 6.5 - 8.5 g/dL [facility] ([place]) Albumin 4.4 3.5 - 5.0 g/dL [facility] ([place]) Alk phos 100 40 - 130 Units/L [facility] ([place]) ALT 18 7 - 45 Units/L [facility] ([place]) AST 21 10 - 45 Units/L [facility] ([place]) Comment:Slightly Hemolyzed S pecimen Blood 06/20/2022 7:43 AM CDT 06/20/2022 10:19 AM CDT us Harper Myers DO LAB BLOOD ORDERABLES Final Result [facility] ([place]) 1 [facility] Department [place] [address] * (ABNORMAL) CBC with auto differential (06/20/2022 7:43 AM CDT) WBC 7.7 3.8 - 9.9 K/cumm [facility] ([place]) Hgb 16.0(H) 11.9 - 15.5 g/dL [facility] ([place]) Hct 45.9(H) 35.6 - 45.5 % [facility] ([place]) Plt 214 150 - 400 K/cumm [facility] ([place]) MPV 11.4 9.1 - 12.3 fL [facility] ([place]) RBC 5.06 3.90 - 5.20 M/cumm [facility] ([place]) MCV 90.7 81.3 - 96.4 fL [facility] ([place]) MCH 31.6 27.1 - 33.3 pg [facility] ([place]) MCHC 34.9 32.3 - 35.7 g/dL [facility] ([place]) RDW CV 13.3 11.1 - 14.9 % [facility] ([place]) RDW SD 44.2 35.7 - 48.1 fL [facility] ([place]) NRBC abs 0.00 0.00 - 0.01 K/cumm [facility] ([place]) Blood 06/20/2022 7:43 AM CDT 06/20/2022 10:19 AM CDT Harper Rubio Louis DO LAB BLOOD ORDERABLES Final Result JAY IZQUIER[facility] [place]) 1 [facility] Department [place] [address] documented in this encounter Visit Diagnoses Diagnosis Annual physical exam- Primary Routine general medical examination at a health care facility Sliding hiatal hernia Diaphragmatic hernia without mention of obstruction or gangrene Need for pneumococcal vaccine Need for prophylactic vaccination against streptococcus pneumoniae (pneumococcus) Flu vaccine need Screening for deficiency anemia Screening for other [...] 2.5 mg /3 mL (0.083 %) nebulizer solutionIndications:B ronchitis Take 3 mL (2.5 mg total) by nebulization every 4 (four) hours as needed for wheezing or shortness of breath 12/31/2021 06/20/2022 hydrOXYzine (ATARAX) 25 mg tabletIndications:Imp etigo Take 1 tablet (25 mg total) by mouth every 8 (eight) hours as needed for itching Therapy completed 12/09/2021 06/20/2022 mupirocin (BACTROBAN) 2 % creamIndications:harish toneal dialysis catheter care Apply small amount to top of Q Tip and insert into opening of each nare twice a day for 5-10 days. Therapy completed 01/09/2022 06/20/2022 nicotine (NICODERM CQ) [address] 1 patch on the skin daily Therapy completed 08/31/2021 06/20/2022 documented as of this encounter Orders Immunization/Injection Count Last Ordered Date First Ordered Date FLU VACCINE QUAD PF 6M+ IM - FLUARIX / FLULAVAL / FLUZONE- [place] 1 06/20/2022 PNEUMOCOCCAL CONJUGATE VACCI NE 20 VALENT IM 1 06/20/2022 documented in this encounter Care Teams Steel Turner Relationship Specialty Start Date End Date Louis Harper [place] [address] [address] [place] [address] PCP - General Family Medicine 09/23/21 11/22/23 Phoenix Loredo MD Consulting Physician Cardiology 01/04/19 [place] [address] [place] [address] Emanations Analysis Technician Obstetrics and Gynecology 04/19/21 documented as of this encounter
--- OUTSIDE RECORDS SUMMARY | 2024-10-13 04:07 | XMS_ITS | Encounter Summary ---
Author Organization [facility] Medical Group Address [address] [facility] [address] [place] [address] Care Team Providers Care Customer Equipment Engineer Name Role Phone Phoenix Loredo MD Unavailable [phone] Aylin Lundy MD Unavailable [phone] Harper Myers DO Primary Care Provider [phone] Reason for Visit * Reason Comments Urinary Symptom Encounter Details Date Type Department Care Team (Late st Contact Info) Description 09/27/2022 7:15 PM DISTRICT RECRUITER Office Visit [facility] [address] [facility] [place] [address] [place] [address] Roxana Maria, PROGRAM ARRANGER [address] [facility] [address] [place] [id number] Hematuria, unspecified type (Primary Dx) Social History Tobacco Use Types [...] on file Legal Sex Female 8:44 AM DISTRICT RECRUITER Gender Identity Not on file Sexual Orientation Not on file documented as of this encounter Last Filed Vital Signs Vital Sign Reading Time Taken Comments Blood Pressure 122/68 09/27/2022 7:20 PM DISTRICT RECRUITER Pulse 88 09/27/2022 7:20 PM DISTRICT RECRUITER Temperature 36.7 ??C (98.1 ??F) 09/27/2022 7:20 PM CS T Respiratory Rate 16 09/27/2022 7:20 PM DISTRICT RECRUITER Oxygen Saturation 99% 09/27/2022 7:20 PM DISTRICT RECRUITER Inhaled Oxygen Concentration - - Weight 69.4 kg (153 lb) 09/27/2022 7:20 PM DISTRICT RECRUITER Height 154.9 cm (5' 1 ) 09/27/2022 7:20 PM DISTRICT RECRUITER Body Mass Index 28.91 09/27/2022 7:20 PM DISTRICT RECRUITER documented in this encounter Patient Instructions * Patient Instructions* Roxana Maria NP - 09/27/2022 7:15 PM DISTRICT RECRUITER Follow up w PCP or urology. RICT RECRUITER documented in this encounter Progress Notes * Roxana Maria NP - 09/27/2022 7:15 PM CST Images from the original note were not included. Subjective/Objective Patient ID: Mirtha Cherry is a 57 y.o. female. Chief Complaint Urinary Symptom Presents to clinic for blood in urine that started today. She had this 1 year ago & has seen a urologist. Denies pain, burning. Review of Systems Constitutional: Negative for chills, fatigue and fever. Gastrointestinal: Negative for nausea and vomiting. Genitourinary: Negative for difficulty urinating, dysuria, flank pain, frequency, hematuria and urgency. Neurological: Negative for headaches. Psychiatric/Behavioral: Negative for confusion. Physical Exam Vitals reviewed. Constitutional: Appearance: Normal appearance. She is well-developed. She is not ill-appearing. HENT: Head: Normocephalic. Mouth/Throat: Mouth: Mucous membranes are moist. Pharynx: Oropharynx is clear. Cardiovascular: Rate and Rhythm: Normal rate and regular rhythm. Pulmonary: Effort: Pulmonary effort is normal. Breath sounds: Normal breath sounds. Abdominal: General: Abdomen is flat. Bowel sounds are normal. There is no distension. Palpations: Abdomen is soft. There is no hepatomegaly or splenomegaly. Tenderness: There is no abdominal tenderness. There is no right CVA tenderness or left CVA tenderness. Musculoskeletal: General: Normal range of motion. Skin: General: Skin is warm and dry. Neurological: Mental Status: She is alert and oriented to person, place, and time. Mental status is at baseline. Psychiatric: Mood and Affect: Mood normal. Behavior: Behavior normal. Behavior is cooperative. Thought Content: Thought content normal. Judgment: Judgment normal. Vitals: 09/27/22 1920 BP: 122/68 Pulse: 88 Resp: 16 Temp: 36.7 ??C (98.1 ??F) TempSrc: Tympanic SpO2: 99% Weight: 69.4 kg (153 lb) Height: 154.9 cm (5' 1 ) Assessment/Plan Had leftover macrobid she will take Will call urologist tomorrow. Diagnoses and all orders for this visit: Hematuria, unspecified type (Primary) - POCT urinalysis dipstick - Urine culture Urine, clean voided; Future Recent Results (from the past 4 hour(s)) POCT urinalysis dipstick Collection Time: 09/27/22 7:25 PM Result Value Ref Range Color, Urine, POC Yellow Clarity, ur, POC Cloudy (A) Clear Glucose, ur, POC Negative Negative MG/DL Bilirubin, ur, POC Negative Negative, Small, Moderate, Large Ketones, ur, POC Negative Negative Specific [place], POC 1.015 1.005 - 1.030 Blood, ur, POC Moderate (A) Negative pH, ur, POC 6.0 5.0 - 8.0 Protein, ur, POC Negative Negative Urobilinogen, urine, POC 0.2 0.2 - 1.0 mg/dL Nitrite, ur, POC Negative Negative Leukocytes, ur, POC Negative Negative Lot Number [id number] Patient Education: Disposition Treatment plan including expectations, [...] ask questions, questions answered. Roxana Maria NP RICT RECRUITER documented in this encounter Plan of Treatment Upcoming Encounters Date Type Department Care Team (Late st Contact Info) Description 02/04/2025 9:30 AM CDT Hospital Encounter [address] [address] Vic Gaines, DO 3 [facility] [place] [address] [place] [address] 02/04/2025 9:30 AM CDT - 02/04/2025 10:00 AM CDT Surgery [address] [address] Vic Gaines, DO 3 [facility] [place] [address] [place] [address] COLONOSCOPY Scheduled Procedures Name Priority Associated Diagnoses Date/Ti me COLONOSCOPY Encounter for screening colonoscopy 02/04/2025 9:30 AM CDT documented as of this encounter Procedures Procedure Name Priority Date/Time Associated Diagnosis Comments POCT URINALYSIS DIPSTICK Routine 09/27/2022 7:25 PM DISTRICT RECRUITER Hematuria, unspecified type documented in this encounter Results * (ABNORMAL) POCT urinalysis dipstick (09/27/2022 7:25 PM DISTRICT RECRUITER) Color, Urine, POC Yellow Clarity, ur, POC Cloudy(A) Clear Glucose, ur, POC Negative Negative MG/DL Bilirubin, ur, POC Negative Negative, Small, Moderate, Large Ketones, ur, POC Negative Negative Specific [place], POC 1.015 1.005 - 1.030 Blood, ur, POC Moderate(A) Negative pH, ur, POC 6.0 5.0 - 8.0 Protein, ur, POC Negative Negative Urobilinogen, urine, POC 0.2 0.2 - 1.0 mg/dL Nitrite, ur, POC Negative Negative Leukocytes, ur, POC Negative Negative Lot Number [id number] Urine 09/27/2022 7:25 PM DISTRICT RECRUITER Roxana Maria PROGRAM ARRANGER POINT OF CARE TEST OR DERABLES Final Result * Urine culture Urine, clean voided (09/27/2022 7:16 PM DISTRICT RECRUITER) Report Final Report: Less than 100,000 colonies/mL (clinically insignificant growth based on current clinical standards) JAY Comment:Testing performed by : [facility], [address] [place] [address]., [id number] Organism (CLINICALLY INSIGNIFICANT GROWTH JAY Urine, clean voided 09/27/2022 7:16 PM DISTRICT RECRUITER 09/28/2022 5:35 AM DISTRICT RECRUITER Narrative JAY - 09/29/2022 8:03 AM DISTRICT RECRUITER Testing performed by [facility] Microbiology Laboratory ([phone]) Roxana Maria NP LAB MICROBIOLOGY - NERAL ORDERABLES Final Result JAY [address] Department of Laboratories [place], [place] [id number] documented in this encounter Visit Diagnoses Diagnosis Hematuria, unspecified type- Primary Hematuria, unspecified type Encounter for screening colonoscopy documented in this encounter Additional Health Concerns Infection Onset Date Last Indicated Resolved Time COVID: Recovered Comment:Added based on recent COVID infection. 08/24/2022 08/28/2022 11/22/2022 3:[address] documented as of this encounter Care Teams Customer Equipment Engineer Relationship Specialty [place] [address] [place] [address] PCP - General Family Medicine 09/23/21 11/22/23 Phoenix Loredo MD Consulting Physician Cardiology 01/04/19 [place] [address] [place] [address] Radiator Core Tester Obstetrics and Gynecology 04/19/21 documented as of this encounter
--- OUTSIDE RECORDS SUMMARY | 2024-10-13 04:07 | XMS_ITS | Encounter Summary ---
Author Organization [facility] Medical Group Address [address] [facility] [address] [place] [address] Care Team Providers Care Patternmaker All Around Name Role Phone Phoenix Loredo MD Unavailable [phone] Aylin Lundy MD Unavailable [phone] Harper Myers DO Primary Care Provider [phone] Reason for Visit * Reason Onset Date Comments Test Results 12/16/2022 Encounter Details Date Type Department Care Team (Late st Contact Info) Description 12/16/2022 Telephone [facility] Pulmonary at [address] [place] [address] Urmila Nye LPN Test Results Social History Tobacco Use Types Packs/Day Years [...] on file Legal Sex Female 8:44 AM GRINDING ROOM SUPERVISOR Gender Identity Not on file Sexual Orientation Not on file documented as of this encounter Miscellaneous Notes * Telephone Encounter - Urmila Nye LPN - 12/16/2022 1:53 PM GRINDING ROOM SUPERVISOR Called and informed pt that scan showed no worrisome pulm nodules. Pt asked if she still needed to follow-up on Monday. Please advise. DING ROOM SUPERVISOR * Telephone Encounter - Urmila Nye LPN - 12/16/2022 1:53 PM GRINDING ROOM SUPERVISOR ----- Message from Ho Jarrett MD sent at 12/16/2022 11:32 AM GRINDING ROOM SUPERVISOR ----- Please let the patient know that there are no worrisome pulmonary nodules. We will continue with annual screening Thanks DING ROOM SUPERVISOR documented in this encounter Plan of Treatment Upcoming Encounters Date Type Department Care Team (Late st Contact Info) Description 02/04/2025 9:30 AM CDT Hospital Encounter [address] [address] Vic Gaines, DO [address] [address] 02/04/2025 9:30 AM CDT - 02/04/2025 10:00 AM CDT Surgery [address] [address] Vic Gaines, DO 3 [facility] [place] [address] [place] [address] COLONOSCOPY Scheduled Procedures Name Priority Associated Diagnoses Date/Ti me COLONOSCOPY Encounter for screening colonoscopy 02/04/2025 9:30 AM CDT documented as of this encounter Visit Diagnoses Not on filedocumented in this encounter Care Teams Patternmaker All Around Relationship Specialty [place] [address] [place] [address] PCP - General Family Medicine 09/23/21 11/22/23 Phoenix Loredo MD Consulting Physician Cardiology 01/04/19 [place] [address] [place] [address] Supervisor Fish Bait Processing Obstetrics and Gynecology 04/19/21 documented as of this encounter
--- OUTSIDE RECORDS SUMMARY | 2024-10-13 04:07 | XMS_ITS | Encounter Summary ---
Author Organization [facility] Healthcare Address [address] [place] [address] Care Team Providers Care Pleat Patternmaker Name Role Phone Leticia Loredo MD Unavailable [phone] Aylin Lundy MD Unavailable [phone] Harper Myers DO Primary Care Provider [phone] Reason for Referral * Diagnostic Imaging (Routine) - Closed Specialty Diagnoses / Procedures Referred By Contac t Referred To Contact Diagnoses Atherosclerosis of [place] arteries of extremities with intermittent claudication, bilateral legs (HCC) Procedures US ABE Leticia Loredo MD Phone: tel: fax: [address] [address] Referral ID Status Reason Start Date Expiration Date Visits Re quested Visits Authorized [id number] Closed 10/19/2021 11/18/2022 1 1 Reason for Visit * Diagnostic Imaging (Routine) - Closed Specialty Diagnoses / Procedures Referred By Contac t Referred To Contact Diagnoses Atherosclerosis of [place] arteries of extremities with intermittent claudication, bilateral legs (HCC) Procedures US Leticia Farias MD Phone: tel: fax: [address] [phone] Referral ID Status Reason Start Date Expiration Date Visits Re quested Visits Authorized [id number] Closed 10/19/2021 11/18/2022 1 1 Encounter Details Date Type Department Care Team (Latest Contact Info) Description 05/13/2022 7:35 AM CDT - 05/13/2022 11:59 PM CDT Hospital Encounter [facility] [address] [place] [address] Leticia Loredo MD [address] 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 OPERATOR Gender Identity Not on file Sexual Orientation Not on file documented as of this encounter Medications at Time of Discharge albuterol (PROVENTIL,VENTOLIN ) 2.5 mg /3 mL (0.083 %) nebulizer solution Take 3 mL (2.5 mg total) by nebulization every 6 (six) hours as needed for wheezing 75 mL 2 9 02/24/20 23 albuterol 2.5 mg /3 mL (0.083 %) nebulizer solutionIndications :Bronchitis Take 3 mL (2.5 mg total) by nebulization every 4 (four) hours as needed for wheezing or shortness of breath 125 mL 2 06/20/20 22 albuterol HFA (PROVENTIL HFA,VENTOLIN HFA,PROAIR HFA) 90 mcg/actuation inhaler Inhale 2 puffs every 6 (six) hours as needed for wheezing 1 each 2 2 09/14/20 22 aspirin 81 mg enteric coated tablet Take 1 tablet (81 mg total) by mouth daily 90 tablet 3 2 06/21/20 23 atorvastatin (LIPITOR) 40 mg tablet TAKE 1 TABLET(40 MG) BY MOUTH DAILY 90 tablet 3 1 12/05/19 23 Bevespi Aerosphere 9-4.8 mcg inhaler INHALE 2 PUFFS BY MOUTH TWICE DAILY 10.7 g 5 2 09/14/20 22 clopidogreL (PLAVIX) 75 mg tablet TAKE 1 TABLET(75 MG) BY MOUTH DAILY 90 tablet 3 1 09/06/20 22 coenzyme Q10 (CO Q-10) 200 mg capsule Take 1 capsule by oral route every day 0 0 7 05/14/20 24 famotidine (Pepcid) 40 mg tablet Take 1 tablet (40 mg total) by mouth nightly 90 tablet 3 2 06/21/20 23 fluticasone propionate (FLONASE) 50 mcg/actuation nasal spray Administer 1 spray into each nostril daily 16 g 11 2 06/21/20 23 hydrOXYzine (ATARAX) 25 mg tabletIndications:I mpetigo Take 1 tablet (25 mg total) by mouth every 8 (eight) hours as needed for itching 20 tablet 2 06/20/20 22 Lactobacillus acidophilus (PROBIOTIC) 10 billion cell capsule Take 1 capsule by oral route every day 0 0 7 05/14/20 24 loratadine (CLARITIN) 10 mg tablet Take 1 tablet (10 mg total) by mouth daily 05/14/20 24 metoprolol XL (TOPROL-XL) 50 mg extended release tabletIndications:M ixed hyperlipidemia,Mult iple-type hyperlipidemia Take 1 tablet (50 mg total) by mouth daily 90 tablet 3 2 12/05/19 23 multivitamin capsule Take 1 capsule by mouth daily 05/14/20 24 mupirocin (BACTROBAN) 2 % creamIndications:pe ritoneal dialysis catheter care Apply small amount to top of Q Tip and insert into opening of each nare twice a day for 5-10 days. 15 g 2 06/20/20 22 nicotine (NICODERM CQ) [address] 1 patch on the skin daily 30 patch 1 1 06/20/20 22 pimecrolimus (ELIDEL) 1 % creamIndications:Ec zema of [...] 02/04/2025 9:30 AM CDT Hospital Encounter [address] [address] Vic Gaines, DO [address] [address] 02/04/2025 9:30 AM CDT - 02/04/2025 10:00 AM CDT Surgery [address] [address] Vic Gaines, DO [address] [address] COLONOSCOPY Scheduled Procedures Name Priority Associated Diagnoses Date/Ti me COLONOSCOPY Encounter for screening colonoscopy 02/04/2025 9:30 AM CDT documented as of this encounter Procedures Procedure Name Priority Date/Time Associated Diagnosis Comments US BAE Schedule Routine, Read Routine (OP Routine) 05/13/2022 7:56 AM CDT Atherosclerosis of [place] arteries of extremities with intermittent claudication, bilateral legs (HCC) documented in this encounter Results * US ABE (05/13/2022 7:56 AM CDT) Anatomical Region Laterality Modality Vascular N/A Ultrasound 05/13/2022 7:44 AM CDT Narrative 05/13/2022 9:39 AM CDT [address] [place] [address] Ankle Brachial Index Report Patient Name: MOSHE HARTLEY ?? : 1965 (57y ) ??Gender: F Study Date: 05/13/2022 7:44:00 AM Photoengraving Helper: Order Provider: LETICIA LOREDO Quality: Adequate Ref.Provider: LETICIA LOREDO Procedures: Arterial Report: A bilateral extremities ankle/brachial index was performed. Indications: Claudication. Conclusions: 1. In the right lower extremity, the ankle brachial index is normal, ABE 1.04, with triphasic wave form. 2. In the left lower extremity, the ankle brachial index is normal, ABE 1.04, with biphasic wave form. Measurements: RightValueLeftValue Electronically Signed By: Conrad Martinez 2022-05-13 09:38:59 CDT Procedure Note Conrad Martinez MD - 05/13/[address] [place] [address] Ankle Brachial Index Report Patient Name: JT HARTLEYatient ID: [id number] : 1965 (57y ) Gender: FStudy Date: 05/13/2022 7:44:00 AM Order Provider: LETICIA LOREDOQuality: Adequate Ref.Provider: LETICIA LOREDO Procedures: Arterial Report: A bilateral extremities ankle/brachial index wasperformed. Indications: Claudication. Conclusions: 1. In the right lower extremity, the ankle brachial index is normal, ABI1.04, with triphasic wave form. 2. In the left lower extremity, the ankle brachial index is normal, ABI1.04, with biphasic wave form. Measurements: RightValueLeftValue Electronically Signed By: Conrad Martinez 2022-05-13 09:38:59 CDT us Leticia Loredo MD IMG US PROCEDURES Final Result documented in this encounter Visit Diagnoses Diagnosis Atherosclerosis of [place] arteries of extremities with intermittent claudication, bilateral legs (HCC) Encounter for screening colonoscopy documented in this encounter Care Teams Pleat Patternmaker Relationship Specialty [place] [address] [place] [address] PCP - General Family Medicine 09/23/21 11/22/23 Leticia Loredo MD Consulting Physician Cardiology 01/04/19 [place] [address] [place] [address] Collision Estimator Obstetrics and Gynecology 04/19/21 documented as of this encounter
--- OUTSIDE RECORDS SUMMARY | 2024-10-13 04:07 | XMS_ITS | Encounter Summary ---
Author Organization [facility] Address [address] [place] [address] Care Team Providers Care Director Telehealth Name Role Phone Phoenix Loredo MD Unavailable [phone] Aylin Lundy MD Unavailable [phone] Harper Myers DO Primary Care Provider [phone] Reason for Visit * Reason Comments Sleep Study Patient presents to the clinic to discuss the results of a recent sleep study. Encounter Details Date Type Department Care Team (Late st Contact Info) Description 01/03/2022 8:00 AM CDT Office Visit [facility] Sleep Medicine at [address] [place] [id number] Brianne Florez MD [address] [place] [address] [address] [place], [place] [id number] Snoring (Primary Dx); Hypersomnia; Obesity, unspecified classification, unspecified obesity type, unspecified whether serious comorbidity present Social History Tobacco Use Types Packs/Day Years Used Date Smoking Tobacco: Every Day Cigarettes 1 40 Smokeless Tobacco: Never Tobacco Cessation:Ready to Q uit: No; Counseling Given: No Comments:Smoking History Packs/day: 0.5 Packs Alcohol Use [...] on file 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 Gender Identity Not on file Sexual Orientation Not on file documented as of this encounter Last Filed Vital Signs Vital Sign Reading Time Taken Comments Blood Pressure 118/74 01/03/2022 7:57 AM CDT Pulse 78 01/03/2022 7:57 AM CDT Temperature 36.7 ??C (98.1 ??F) 01/03/2022 7:57 AM CD T Respiratory Rate 18 01/03/2022 7:57 AM CDT Oxygen Saturation 99% 01/03/2022 7:57 AM CDT Inhaled Oxygen Concentration - - Weight 74.8 kg (165 lb) 01/03/2022 7:57 AM CDT Height 154.9 cm (5' 1 ) 01/03/2022 7:57 AM CDT Body Mass Index 31.18 01/03/2022 7:57 AM CDT documented in this encounter Progress Notes * Brianne Florez MD - 01/03/2022 8:00 AM CDT Images from the original note were not included. SUBJECTIVE Chief Complaints: Snoring, unrefreshing sleep, excessive daytime sleepiness HPI: Mirtha Cherry is a 56 y.o. female with past medical history significant for patient for arterial disease status post stent, dyslipidemia, chronic tobacco use, carotid stenosis, frequent PVCs, obesity, allergic rhinitis, gastroesophageal reflux disease, migraine, was seen in the sleep medicine clinic for follow-up. Snoring, excessive daytime sleepiness: Patient recently had a polysomnogram done for history of snoring and excessive daytime sleepiness. Patient is here to discuss the results and management plan. History: Patient gives history of many years of snoring and excessive daytime sleepiness. Patient states that she doses of when she is active during a meeting or while watching TV. Patient denies any motor vehicle accidents or near misses. Patient states that if she is active, then she does not doze off. Patient denies falling asleep while talking or eating or driving. Patient denies any witnessed apneas o r waking up gasping or choking for air. Patient had a home sleep apnea testing recent which was negative for sleep apnea. No family history of obstructive sleep apnea. Sleep schedule: Initial presentation: During weekdays, patient goes to bed at 11:30 p.m., falls asleep in 15 minutes and wakes up at 7:00a.m.. During weekends, patient was to bed at 11:30 p.m., falls asleep in 15 minutes and wakes up at 8:00 a.m.. Patient wakes up multiple times throughout the night. Patient wakes up once or twice to use the restroom and is able to go back to sleep in 5 minutes. Patient naps for 20 minutes to an hour. Patient denies any morning headaches. Denies any sleeping while talking or eating or driving. Denies any motor vehicle accidents or near misses. Positive for history of hypnagogic or hypnopompic hallucinations. Denies any sleep paralysis. Denies any cataplexy. Denies any dreaming during daytime naps. Denies feeling refreshed after daytime naps. Positive for history of sleep talking . Denies any sleepwalking. Denies any nightmares. Denies any motor activities, kicking, acting out dreams, falls, or screaming during sleep. Denies any urge to move his legs in the evening, during rest which gets better with activity. ESS: 16 ( At initial presentation 20) Past Medical History: Diagnosis Date ??? Asthma Asthma; Comments: DNT 07/10/2014 - ??? Dysphagia ??? Gastroesophageal reflux disease GERD ??? 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 HX OTHER MEDICAL 2010 capal tunnel release rt. ??? HX OTHER MEDICAL vocal cord polyp; Comments: removed and benign. 2003 ??? HX OTHER MEDICAL Allergies, seasonal; Comments: [...] SURGICAL HISTORY 2004 polypectomy for vocal cords Current Outpatient Medications: ??? albuterol, 2.5 mg, nebulization, Q6H PRN ??? albuterol, 2.5 mg, nebulization, Q4H PRN ??? albuterol HFA, 2 puff, inhalation, Q6H PRN ??? aspirin, 81 mg, oral, Daily ??? atorvastatin, TAKE 1 TABLET(40 MG) BY MOUTH DAILY ??? clopidogreL, TAKE 1 TABLET(75 MG) BY MOUTH DAILY ??? Co Q-10, Take 1 capsule by oral route every day ??? famotidine, 40 mg, oral, Nightly ??? fluticasone propionate, 1 spray, each nostril, Daily ??? glycopyrrolate-formoteroL, 2 puff, inhalation, BID ??? hydrOXYzine, 25 mg, oral, Q8H PRN ??? Probiotic, Take 1 capsule by oral route every day ??? loratadine, 10 mg, oral, Daily ??? metoprolol XL, 50 mg, oral, Daily ??? multivitamin, 1 capsule, oral, Daily ??? nicotine, 1 patch, transdermal, Q24H ??? pimecrolimus, Apply topically 2 (two) times a day ??? predniSONE, 20 mg, oral, Daily ??? SUMAtriptan, May repeat dose once in 2 hours if no relief. Do not exceed 2 doses in 24 hours. Allergies Allergen Reactions ??? Adhesive Rash Reaction: Rash, ??? Codeine Nausea only, Nausea Only and Unknown Reaction: Nausea, ??? Adhesive Tape-Silicones Itching, Other (See comments) and Unknown blisters ??? Povidone-Iodine Itching Social History Tobacco Use ??? Smoking status: Current Every Day Smoker Packs/day: 1.00 Years: 40.00 Pack years: 40.00 ??? Smokeless tobacco: Never Used ??? Tobacco comment: Smoking History Packs/day: 0.5 Packs Substance Use Topics ??? Alcohol use: No Family History Problem Relation Age of Onset [...] Diabetes Other Family history of Diabetes mellitus; Physical Exam: There were no vitals filed for this visit. BMI: There is no height or weight on file to calculate BMI. Wt Readings from Last 6 Encounters: 12/31/21 74.8 kg (165 lb) 12/11/21 74.8 kg (165 lb) 12/09/21 74.8 kg (165 lb) 12/09/21 75.1 kg (165 lb 9.6 oz) 11/22/21 73.5 kg (162 lb) 10/29/21 73.8 kg (162 lb 9.6 oz) BMI Readings from Last 6 Encounters: 12/31/21 31.18 kg/m?? 12/11/21 31.18 kg/m?? 12/09/21 31.18 kg/m?? 12/09/21 31.29 kg/m?? 11/22/21 30.61 kg/m?? 10/29/21 30.72 kg/m?? Physical Exam General appearance: Alert, oriented, in no distress. HEENT: Atraumatic, normocephalic. Pupils are equal and reactive to light. Extraocular movement intact. Mallampati-III. Neck circumference-14.5 in. Positive for macroglossia and scalloped tongue Neuro: No focal deficits Psychiatric: Normal mood and affect Polysomnogram results: Home sleep apnea testing in 11/2021: Negative, but multiple airflow fluctuations concerning for RERAs. PSG on 12/2021: AHI 0.9, RDI of 4.7, supine RDI 13.3, nonsupine RDI of 4.6, REM RDI 13.8, non-REM RDI 3.4, minimal supine sleep of only 13.5 minutes and decreased REM stages of only 12.1% Data download: NA Ejection fraction: Stress test on 09/2021: 50% Echocardiogram from 09/2021:67% Assessment and Plan: 1. Mild intermittent snoring: o Home sleep apnea testing negative for obstructive sleep apnea, but multiple airflow fluctuations concerning for RERAs noted. o PSG showed mild intermittent snoring AHI of 0.9, RDI of 4.7. But patient was noted to have minimal supine sleep of 13.5 minutes and decreased REM stage of only 12.1%. Events were worse in supine sleep and REM stage. o Patient states that she does not sleep in supine position at home. o Discussed the option of repeating polysomnography since the patient has symptoms of obstructive sleep apnea and has events in supine position and during REM sleep. Will repeat it in 6 months. Monitor for worsening of symptoms. Patient verbalized understanding. o The physiology of sleep disordered breathing and its increased association with hypertension, diabetes mellitus type 2, arrhythmias, strokes, heart attacks, heart failure, hypersomnia, obesity, cognitive dysfunction, and mood disorders were discussed. o Hypnotics, sedatives, and related medications have the potential of worsening the apnea and should be avoided. o Patients with sleep apnea may have significant daytime hypersomnolence. If that is the case, driving or handling heavy machinery should be avoided until the apnea and excessive sleepiness have resolved. o Weight loss for ideal body weight range is recommended. 2. Hypersomnia: o Likely secondary to sleep fragmentation associated with uncontrolled sleep disordered breathing. o No features of narcolepsy. o Monitor response to therapy for the above. o No driving if sleepy. 3. Morbid Obesity: o The effects of obesity, obstructive sleep apnea syndrome and other morbidities were discussed. o Recommended diet and exercise for ideal body weight. Patient verbalized understanding. 4. Return to clinic in 6 months. Voice recognition software [employer] was used dictate and transcribe this document. Nutritionist Public Health variances may occur. Despite proofreading, typographical errors may occur. Brianne Florez MD [facility] Sleep Medicine CC: Harper Myers DO documented in this encounter Plan of Treatment Upcoming Encounters Date Type Department Care Team (Late st Contact Info) Description 02/04/2025 9:30 AM CDT Hospital Encounter [address] [address] Vic Gaines, DO 3 [facility] [place] [address] [place] [id number] 02/04/2025 9:30 AM CDT - 02/04/2025 10:00 AM CDT Surgery [address] [address] Vic Gaines, DO [address] [address] COLONOSCOPY Scheduled Procedures Name Priority Associated Diagnoses Date/Ti me COLONOSCOPY Encounter for screening colonoscopy 02/04/2025 9:30 AM CDT documented as of this encounter Visit Diagnoses Diagnosis Snoring- Primary Other dyspnea and respiratory abnormality Hypersomnia Hypersomnia, unspecified Obesity, unspecified classification, unspecified obesity type, unspecified whether serious comorbidity present Encounter for screening colonoscopy documented in this encounter Care Teams Director Telehealth Relationship Specialty [place] [address] [place] [address] PCP - General Family Medicine 09/23/21 11/22/23 Phoenix Loredo MD Consulting Physician Cardiology 01/04/19 [place] [address] [place] [address] Senior Engineering Specialist Obstetrics and Gynecology 04/19/21 documented as of this encounter
--- OUTSIDE RECORDS SUMMARY | 2024-10-13 04:07 | XMS_ITS | Encounter Summary ---
Author Organization [facility] Address [address] [place] [address] Care Team Providers Care Associate [employer] Name Role Phone Phoenix Loredo MD Unavailable [phone] Aylin Lundy MD Unavailable Harper Myers DO Primary Care Provider [phone] Encounter Details Date Type Department Care Team (Late st Contact Info) Description 06/20/2022 8:45 AM CDT [address] Harper Myers DO [address] [facility] [address] [address] Annual physical exam; Screening for blood or protein in urine; Screening for thyroid disorder; Encounter for lipid screening for cardiovascular disease; Encounter for screening examination for impaired glucose regulation and diabetes mellitus; Encounter for screening for other digestive system disorders; Screening for deficiency anemia Discharge Disposition: Discharge to home or self [...] on file 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 Gender Identity Not on file Sexual Orientation Not on file documented as of this encounter Discharge Disposition Disposition Code Departure Means Destination Discharge to home or self care documented in this encounter Plan of Treatment Upcoming Encounters Date Type Department Care Team (Late st Contact Info) Description 02/04/2025 9:30 AM CDT Hospital Encounter [address] [address] Vic Gaines, DO [address] [place] [address] [place] [address] 02/04/2025 9:30 AM CDT - 02/04/2025 10:00 AM CDT Surgery [address] [address] Vic Gaines, DO [address] [place] [address] [place] [address] COLONOSCOPY Scheduled Procedures Name Priority Associated Diagnoses Date/Ti me COLONOSCOPY Encounter for screening colonoscopy 02/04/2025 9:30 AM CDT documented as of this encounter Procedures Procedure Name Priority Date/Time Associated Diagnosis Comments EGFR Routine 06/20/2022 7:43 AM CDT Annual physical exam Encounter for screening for other digestive system disorders DIFFERENTIAL AUTO Routine 06/20/2022 7:4 3 AM CDT Annual physical exam Screening for deficiency anemia THYROID FUNCTION CASCADE Routine 06/20/2022 7:43 AM CDT Annual physical exam Screening for thyroid disorder URINALYSIS AND REFLEX TO MICROSCOPIC AND CULTURE Routine 06/20/2022 7:43 AM CDT Annual physical exam Screening for blood or protein in urine CBC WITH AUTO DIFFERENTIAL Routine 06/20/2022 7:43 AM CDT Annual physical exam Screening for deficiency anemia MANUAL DIFFERENTIAL Routine 06/20/2022 7 :43 AM CDT Annual physical exam Screening for deficiency anemia HEMOGLOBIN A1C Routine 06/20/2022 7:43 AM CDT Annual physical exam Encounter for screening examination for impaired glucose regulation and diabetes mellitus LIPID PANEL Routine 06/20/2022 7:43 AM CDT Annual physical exam Encounter for lipid screening for cardiovascular disease COMPREHENSIVE METABOLIC PANEL Routine 06/20/2022 7:43 AM CDT Annual physical exam Encounter for screening for other digestive system disorders documented in this encounter Results * Manual Differential (06/20/2022 7:43 AM CDT) Differential Auto [facility] ([place]) Neutrophil abs 4.3 1.7 - 6.5 K/cumm [facility] ([place]) Imm gran abs 0.0 0.0 - 0.1 K/cumm [facility] ([place]) Lymphocyte abs 2.6 0.8 - 3.3 K/cumm [facility] ([place]) Monocyte abs 0.6 0.2 - 0.8 K/cumm [facility] ([place]) Eosinophil abs 0.1 0.0 - 0.5 K/cumm [facility] ([place]) Basophil abs 0.0 0.0 - 0.1 K/cumm [facility] ([place]) Neutrophil pct 56.4 % [facility] ([place]) Comment: Interpretive Data Percent cell count reference ranges are not reported, since discordance with absolute values may lead to misinterpretation of CBC data. Current Interpretive Data was last revised on 2018. Imm gran pct 0.4 % [facility] ([place]) Comment: Interpretive Data Percent cell count reference ranges are not reported, since discordance with absolute values may lead to misinterpretation of CBC data. Current Interpretive Data was last revised on 2018. Lymphocyte pct 33.7 % [facility] ([place]) Comment: Interpretive Data Percent cell count reference ranges are not reported, since discordance with absolute values may lead to misinterpretation of CBC data. Current Interpretive Data was last revised on 2018. Monocyte pct 7.5 % [facility] ([place]) Comment: Interpretive Data Percent cell count reference ranges are not reported, since discordance with absolute values may lead to misinterpretation of CBC data. Current Interpretive Data was last revised on 2018. Eosinophil pct 1.7 % [facility] ([place]) Comment: Interpretive Data Percent cell count reference ranges are not reported, since discordance with absolute values may lead to misinterpretation of CBC data. Current Interpretive Data was last revised on 2018. Basophil pct 0.3 % [facility] ([place]) Comment: Interpretive Data Percent cell count reference ranges are not reported, since discordance with absolute values may lead to misinterpretation of CBC data. Current Interpretive Data was last revised on 2018. RBC morphology Consistent with RBC Indicies [facility] ([place]) Platelet estimate Automated Count Confirmed [facility] ([place]) Blood 06/20/2022 7:43 AM CDT 06/20/2022 10:19 AM CDT us Harper Myers DO LAB BLOOD ORDERABLES Edite d Result - Final [facility] ([place]) 1 [facility] [place] [address] * eGFR (06/20/2022 7:43 AM CDT) eGFR 79 mL/min/1. 73 m2 [facility] ([place]) Comment: [...] interpretive data was last reviewed 2021. Blood 06/20/2022 7:43 AM CDT 06/20/2022 10:19 AM CDT us Harper Myers DO LAB BLOOD ORDERABLES Final Result [facility] ([place]) 1 [facility] Department [place] [address] * Differential, auto (06/20/2022 7:43 AM CDT) Neutrophil abs 4.3 1.7 - 6.5 K/cumm [facility] ([place]) Imm gran abs 0.0 0.0 - 0.1 K/cumm [facility] ([place]) Lymphocyte abs 2.6 0.8 - 3.3 K/cumm [facility] ([place]) Monocyte abs 0.6 0.2 - 0.8 K/cumm [facility] ([place]) Eosinophil abs 0.1 0.0 - 0.5 K/cumm [facility] ([place]) Basophil abs 0.0 0.0 - 0.1 K/cumm [facility] ([place]) Neutrophil pct 56.4 % [facility] ([place]) Comment: Interpretive Data Percent cell count reference ranges are not reported, since discordance with absolute values may lead to misinterpretation of CBC data. Current Interpretive Data was last revised on 2018. Imm gran pct 0.4 % [facility] ([place]) Comment: Interpretive Data Percent cell count reference ranges are not reported, since discordance with absolute values may lead to misinterpretation of CBC data. Current Interpretive Data was last revised on 2018. Lymphocyte pct 33.7 % [facility] ([place]) Comment: Interpretive Data Percent cell count reference ranges are not reported, since discordance with absolute values may lead to misinterpretation of CBC data. Current Interpretive Data was last revised on 2018. Monocyte pct 7.5 % [facility] ([place]) Comment: Interpretive Data Percent cell count reference ranges are not reported, since discordance with absolute values may lead to misinterpretation of CBC data. Current Interpretive Data was last revised on 2018. Eosinophil pct 1.7 % [facility] ([place]) Comment: Interpretive [...] Data was last revised on 2018. Blood 06/20/2022 7:43 AM CDT 06/20/2022 10:19 AM CDT us Harper Myers DO LAB BLOOD ORDERABLES Final Result [facility] ([place]) 1 [facility] Department [place] [address] * (ABNORMAL) CBC with auto differential (06/20/2022 7:43 AM CDT) WBC 7.7 3.8 - 9.9 K/cumm [facility] ([place]) Hgb 16.0(H) 11.9 - 15.5 g/dL [facility] ([place]) Hct 45.9(H) 35.6 - 45.5 % [facility] ([place]) Plt 214 150 - 400 K/cumm [facility] ([place]) MPV 11.4 9.1 - 12.3 fL [facility] ([place]) RBC 5.06 3.90 - 5.20 M/cumm [facility] ([place]) MCV 90.7 81.3 - 96.4 fL [facility] ([place]) MCH 31.6 27.1 - 33.3 pg [facility] MCHC 34.9 32.3 - 35.7 g/dL [facility] ([place]) RDW CV 13.3 11.1 - 14.9 % [facility] RDW SD 44.2 35.7 - 48.1 fL [facility] ([place]) NRBC abs 0.00 0.00 - 0.01 K/cumm [facility] ([place]) Blood 06/20/2022 7:43 AM CDT 06/20/2022 10:19 AM CDT us Harper Myers DO LAB BLOOD ORDERABLES Final Result [facility] ([place]) 1 [facility] Department [place] [address] * Comprehensive metabolic panel (06/20/2022 7:43 AM CDT) Sodium 142 135 - 145 mmol/L [facility] ([place]) Potassium, pl 4.6 3.3 - 4.9 mmol/L [facility] ([place]) Chloride 108 97 - 110 mmol/L [facility] ([place]) CO2 23 22 - 32 mmol/L [facility] ([place]) Anion gap 11 2 - 15 mmol/L [facility] BUN 10 8 - 25 mg/dL [facility] ([place]) Creatinine 0.85 0.60 - 1.10 mg/dL [facility] Glucose 106 70 - 199 mg/dL [facility] ([place]) Comment: Interpretive Data Fasting glucose [...] 2017. Calcium 9.4 8.5 - 10.3 mg/dL [facility] ([place]) Bilirubin, total 0.4 0.1 - 1.2 mg/dL [facility] ([place] Protein, pl 6.7 6.5 - 8.5 g/dL [facility] ([place]) Albumin 4.4 3.5 - 5.0 g/dL [facility] ([place]) Alk phos 100 40 - 130 Units/L [facility]) ALT 18 7 - 45 Units/L [facility] ([place]) AST 21 10 - 45 Units/L [facility] ([place]) Comment:Slightly Hemolyzed S pecimen Blood 06/20/2022 7:43 AM CDT 06/20/2022 10:19 AM CDT us Harper Myers DO LAB BLOOD ORDERABLES Final Result [facility] ([place] 1 [facility] Department of Laboratories [place] [id number] * Hemoglobin A1c (06/20/2022 7:43 AM CDT) Hgb A1C 5.6 4.0 - 5.6 % [facility] ([place]) Estimated Average Glucose 114 mg/dL [facility] ([place]) Comment: The ADA recommends reporting an estimated Average Glucose (eAG) with all Hemoglobin A1c results using the equation derived from a study of 507 normal and diabetic adults. ??Minority populations were underrepresented and children were not included. ?? (Diabetes Care 31:3390-4605, 2008). ??The eAG is not equivalent to a fasting glucose. Blood 06/20/2022 7:43 AM CDT 06/20/2022 10:19 AM CDT us Harper Myers DO LAB BLOOD ORDERABLES Final Result [facility] ([place]) 1 [facility] [place] [address] * (ABNORMAL) Lipid panel (06/20/2022 7:43 AM [...] last revised on 2018. Chol/HDL ratio 4 [facility] ([place]) Blood 06/20/2022 7:43 AM CDT 06/20/2022 10:19 AM CDT Harper Myers DO LAB BLOOD ORDERABLES Final Result Performing Organization Address City/[facility]/ZIP Co de Phone Number [facility] ([place]) [address] [facility] [address] [place] [address] * TSH reflex to free T4 (06/20/2022 7:43 AM CDT) TSH 1.42 0.30 - 4.20 mcIUnit/mL [facility] ([place]) Blood 06/20/2022 7:43 AM CDT 06/20/2022 10:19 AM CDT us Harper Myers DO LAB BLOOD ORDERABLES Final Result Performing Organization Address [place]/[facility]/ZIP Co de Phone Number [facility] ([place]) 1 [facility] [place] [address] * Urinalysis reflex to microscopic and culture [...] microscopic UA and culture not met. [facility] ([place]) Urine, clean voided 06/20/2022 7:43 AM CDT 06/20/2022 10:19 AM CDT Narrative [facility] ([place]) - 06/20/2022 10:26 AM CDT ?? Urine pH is affected by diet, medications, systemic acid-base disturbances, and renal tubular function. ??pH may affect urinary stone formation. ??For example, urine pH below 6.0 may help reduce the tendency for calcium phosphate stones and pH greater than 6.0 may reduce the tendency for uric acid stone formation. Source: [employer]. Last revised 10-19-2017 us Harper Myers DO LAB MICROBIOLOGY - GENERAL ORDERABLES Final Result [facility] ([place]) 1 [facility] [place] [address] documented in this encounter Visit Diagnoses Diagnosis [...] colonoscopy documented in this encounter Care Teams Associate [employer] Relationship Specialty [place] [address] [place] [address] PCP - General Family Medicine 09/23/21 11/22/23 Phoenix Loredo MD Consulting Physician Cardiology 01/04/19 [place] [address] [place] [address] Front Clerk Obstetrics and Gynecology 04/19/21 documented as of this encounter
--- OUTSIDE RECORDS SUMMARY | 2024-10-13 04:07 | XMS_ITS | Encounter Summary ---
Author Organization [facility] Address [address] [place] [address] Care Team Providers Care Dairy Specialist Name Role Phone Phoenix Loredo MD Unavailable [phone] Aylin Lundy MD Unavailable [phone] Harper Myers DO Primary Care Provider [phone] Reason for Visit * Reason Onset Date Comments Covid-19 Questions 08/10/2022 Encounter Details Date Type Department Care Team (Late st Contact Info) Description 08/10/2022 Telephone [facility] Pulmonary at [address] [place] [address] Urmila Nye LPN Covid-19 Questions Social History Tobacco Use Types Packs/Day Years [...] on file Legal Sex Female 8:44 AM RN HOSPICE Gender Identity Not on file Sexual Orientation Not on file documented as of this encounter Miscellaneous Notes * Telephone Encounter - Urmila Nye LPN - 08/10/2022 2:19 PM CDT Called pt and informed her to try and keep her distance if at all possible while her sone recovers form Covid. Pt stated she has him staying in the basement for now. Pt was instructed that if she stated to have sx to call the office so she could be tested and Dr. Jarrett may be able to prescribed her paxlovid. Pt verbalized understanding. * Telephone Encounter - Urmila Nye LPN - 08/10/2022 2:18 PM CDT ----- Message from Mirtha Cherry sent at 08/10/2022 1:24 PM CDT ----- Regarding: Covid My son lives with me and just tested positive for Covid. His symptoms started e morning with sorethroat. Is there anything I can do as precautionary measure? I do not have any symptoms. I am using Bevespiinhaler twice per day. My lung cancer screening is scheduled Sep 12 and my appoint with you is scheduled for Sep 14. My last Covid booster was on 07/09/22. What should I do if I start experiencing symptoms? I can be reached at [phone]. documented in this encounter Plan of Treatment Upcoming Encounters Date Type Department Care Team (Late st Contact Info) Description 02/04/2025 9:30 AM CDT Hospital Encounter [facility] [address] [place] [address] Vic Gaines, DO [address] [address] 02/04/2025 9:30 AM CDT - 02/04/2025 10:00 AM CDT Surgery [facility] [address] [place] [address] Vic Gaines DO [address] [address] COLONOSCOPY Scheduled Procedures Name Priority Associated Diagnoses Date/Ti me COLONOSCOPY Encounter for screening colonoscopy 02/04/2025 9:30 AM CDT documented as of this encounter Visit Diagnoses Not on filedocumented in this encounter Care Teams Dairy Specialist Relationship Specialty Start Date End Date Harper Myers DO [address] [place] [address] PCP - General Family Medicine 09/23/21 11/22/23 Phoenix Loredo MD Consulting Physician Cardiology 01/04/19 Aylin Lundy MD [address] [place] [address] Batching Operator Obstetrics and Gynecology 04/19/21 documented as of this encounter
--- OUTSIDE RECORDS SUMMARY | 2024-10-13 04:07 | XMS_ITS | Encounter Summary ---
Author Organization [facility] Address [address] [place] [address] Care Team Providers Care Early Childhood Teacher Assistant Name Role Phone Phoenix Loredo MD Unavailable [phone] Aylin Lundy MD Unavailable [phone] Harper Myers DO Primary Care Provider [phone] Reason for Referral * MRI/CAT/PET Scan (Routine) - Closed Specialty Diagnoses / Procedures Referred By Contac t Referred To Contact Radiology Diagnoses Smoker Cigarette smoker Procedures CT Lung Cancer Screening CT Lung Cancer Screening Ho Jarrett MD Phone: tel: fax: [address] [address] Referral ID Status Reason Start Date Expiration Date Visits Re quested Visits Authorized [id number] Closed 12/09/2021 01/08/2023 1 1 ICAL NURSE PRACTITIONER Reason for Visit * MRI/CAT/PET Scan (Routine) - Closed Specialty Diagnoses / Procedures Referred By Contac t Referred To Contact Radiology Diagnoses Smoker Cigarette smoker Procedures CT Lung Cancer Screening CT Lung Cancer Screening Ho Jarrett MD Phone: tel: fax: [address] [address] Referral ID Status Reason Start Date Expiration Date Visits Re quested Visits Authorized [id number] Closed 12/09/2021 01/08/2023 1 1 Encounter Details Date Type Department Care Team (Latest Contact Info) Description 09/12/2022 6:46 AM SURGICAL NURSE PRACTITIONER - 09/12/2022 11:59 PM SURGICAL NURSE PRACTITIONER Hospital Encounter [facility] 1 [place] [address] Ho Jarrett MD [address] [address] Smoker; Cigarette smoker Discharge Disposition: Discharge to home or self [...] on file Legal Sex Female 8:44 AM SURGICAL NURSE PRACTITIONER Gender Identity Not on file Sexual Orientation Not on file documented as of this encounter Last Filed Vital Signs Vital Sign Reading Time Taken Comments Blood Pressure - - Pulse - - Temperature - - Respiratory Rate - - Oxygen Saturation - - Inhaled Oxygen Concentration - - Weight 68.9 kg (152 lb) 09/12/2022 7:03 AM SURGICAL NURSE PRACTITIONER Height 154.9 cm (5' 1 ) 09/12/2022 7:03 AM SURGICAL NURSE PRACTITIONER Body Mass Index 28.72 09/12/2022 7:03 AM SURGICAL NURSE PRACTITIONER documented in this encounter Medications at Time [...] daily 16 g 11 2 06/21/20 23 Lactobacillus acidophilus (PROBIOTIC) 10 billion cell [...] 02/04/2025 9:30 AM CDT Hospital Encounter [address] [address] Vic Gaines, DO 3 [facility] [address] [place] [address] 02/04/2025 9:30 AM CDT - 02/04/2025 10:00 AM CDT Surgery [address] [address] Vic Gaines, DO 3 [facility] [address] [place] [address] COLONOSCOPY Scheduled Procedures Name Priority Associated Diagnoses Date/Ti me COLONOSCOPY Encounter for screening colonoscopy 02/04/2025 9:30 AM CDT documented as of this encounter Procedures Procedure Name Priority Date/Time Associated Diagnosis Comments CT LUNG CANCER SCREENING Schedule Routine, Read Routine (OP Routine) 09/12/2022 7:02 AM SURGICAL NURSE PRACTITIONER Smoker Cigarette smoker documented in this encounter Results * CT Lung Cancer Screening (09/12/2022 7:02 AM SURGICAL NURSE PRACTITIONER) Anatomical Region Laterality Modality Chest N/A Computed Tomogra phy 09/12/2022 7:32 AM SURGICAL NURSE PRACTITIONER Narrative 09/12/2022 7:44 AM SURGICAL NURSE PRACTITIONER EXAM DESCRIPTION: ?? CT LUNG CANCER SCREENING REASON FOR STUDY: Screening CT of the chest in a ?? current ??smoker with a ??40 ?? pack year smoking history. Additional history: COPD, chronic bronchitis, asthma. ??Breast cancer.. TECHNIQUE: Low dose CT scan of the [...] CT dose index volume (CTDIvol) = ?? 1.33 ??mGy COMPARISON: 09/11/2021 FINDINGS: SMOKING RELATED LUNG DISEASE: ?? Mild centrilobular and paraseptal emphysema. LUNG NODULES: ?? Stable 4 mm right upper lobe nodule (32). ??Stable 4 mm pleural posterior right upper lobe nodule (47). ??Stable 4 mm anterior right upper lobe nodule (56). ??Stable 4 mm pleural right upper lobe nodule (193). ??Stable 4 mm right middle lobe nodule (219). ??Stable pleural right basilar nodules measuring up to 4 mm (for reference 181). ??Stable subcentimeter nodules within the left major fissure likely lymph nodes. ?? New 3 mm central left lower lobe endobronchial nodule, likely secretions (172). OTHER: ?? No consolidation, pleural effusion or pneumothorax. ?? No mediastinal or hilar lymphadenopathy is seen. ??The heart is normal in size with coronary atherosclerosis. ??No significant effusion. ??Aorta is normal caliber. ??No axillary lymphadenopathy or chest wall mass. ??Images of the upper abdomen demonstrate bilateral adrenal gland adenomas. ??These do not require specific follow-up as per ACR criteria. ??Bone windows demonstrate no suspicious lytic or sclerotic lesion. IMPRESSION: ?? 1. ?? New 3 mm left lower lobe endobronchial nodule, likely debris/secretions. ?? Grossly stable bilateral pulmonary nodules. Lung-RADS v1.1 category ??4A: Suspicious. Recommendation: ??Low dose CT of chest in 3 months. THIS IS AN ELECTRONICALLY VERIFIED FINAL REPORT 09/12/2022 7:44 AM - Electronically signed by ??Afshin Mckinley M.D. AG: FLORIN D: ??09/12/2022 7:44 AM T: ??09/12/2022 7:44 AM Report ID: [id number] Reading Location: ??[id number] Procedure Note Afshin Mckinley MD - 09/12/2022 EXAM DESCRIPTION: CT LUNG CANCER SCREENING REASON FOR STUDY: Screening CT of the chest in a current smoker with a40 pack year smoking history. Additional history: COPD, chronic bronchitis, asthma. Breast cancer.. TECHNIQUE: Low dose CT scan of the [...] DOSE: CT dose index volume (CTDIvol) = 1.33 mGy COMPARISON: 09/11/2021 FINDINGS: SMOKING RELATED LUNG DISEASE: Mild centrilobular and paraseptalemphysema. LUNG NODULES: Stable 4 mm right upper lobe nodule (32). Stable 4 mmpleural posterior right upper lobe nodule (47). Stable 4 mm anterior right upperlobe nodule (56). Stable 4 mm pleural right upper lobe nodule (193). Stable 4mm right middle lobe nodule (219). Stable pleural right basilar nodules measuring up to 4 mm (for reference 181). Stable subcentimeter noduleswithin the left major fissure likely lymph nodes. New 3 mm central left lowerlobe endobronchial nodule, likely secretions (172). OTHER: No consolidation, pleural effusion or pneumothorax. Nomediastinal or hilar lymphadenopathy is seen. The heart is normal in size withcoronary atherosclerosis. No significant effusion. Aorta is normal caliber. No axillary lymphadenopathy or chest wall mass. Images of the upper abdomen demonstrate bilateral adrenal gland adenomas. These do not requirespecific follow-up as per ACR criteria. Bone windows demonstrate no suspiciouslytic or sclerotic lesion. IMPRESSION: 1. New 3 mm left lower lobe endobronchial nodule, likelydebris/secretions. Grossly stable bilateral pulmonary nodules. Lung-RADS v1.1 category 4A: Suspicious. Recommendation: Low dose CT of chest in 3 months. THIS IS AN ELECTRONICALLY VERIFIED FINAL REPORT 09/12/2022 7:44 AM - Electronically signed by Afshin Mckinley M.D. AG: FLORIN Report ID: [id number] Reading Location: [place] [address] Ho Jarrett MD IMG CT PROCEDURES Final Result documented in this encounter Visit Diagnoses Diagnosis Smoker Tobacco use disorder Cigarette smoker Tobacco use disorder Encounter for screening colonoscopy documented in this encounter Additional Health Concerns Infection Onset Date Last Indicated Resolved Time COVID: Recovered Comment:Added based on recent COVID infection. 08/24/2022 08/28/2022 11/22/2022 3:[address] documented as of this encounter Care Teams Early Childhood Teacher Assistant Relationship Specialty [place] [address] [place] [address] PCP - General Family Medicine 09/23/21 11/22/23 Phoenix Loredo MD Consulting Physician Cardiology 01/04/19 [place] [address] [place] [address] Supervisor Word Processing Obstetrics and Gynecology 04/19/21 documented as of this encounter
--- OUTSIDE RECORDS SUMMARY | 2024-10-13 04:07 | XMS_ITS | Encounter Summary ---
Author Organization [facility] Address [address] [place] [address] Care Team Providers Care Granite Fabricator Name Role Phone Phoenix Loredo MD Unavailable [phone] Aylin Lundy MD Unavailable [phone] Harper Myers DO Primary Care Provider [phone] Reason for Referral * Diagnostic Imaging (Routine) - Closed Specialty Diagnoses / Procedures Referred By Contac t Referred To Contact Diagnoses Viral URI with cough Procedures XR Chest Pa Lateral 2 Views Umu Lyon PA Phone: tel: [address] [address] Referral ID Status Reason Start Date Expiration Date Visits Re quested Visits Authorized [id number] Closed 02/08/2023 03/09/2024 1 1 Reason for Visit * Diagnostic Imaging (Routine) - Closed Specialty Diagnoses / Procedures Referred By Contac t Referred To Contact Diagnoses Viral URI with cough Procedures XR Chest Pa Lateral 2 Views Umu Lyon PA Phone: tel: [address] [address] Referral ID Status Reason Start Date Expiration Date Visits Re quested Visits Authorized [id number] Closed 02/08/2023 03/09/2024 1 1 Encounter Details Date Type Department Care Team (Latest Contact Info) Description 02/08/2023 2:50 PM CDT - 02/08/2023 11:59 PM CDT Hospital Encounter [facility] [address] [place] [address] Viral URI with cough Discharge Disposition: Discharge to home or self [...] on file Legal Sex Female 8:44 AM 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 AND SHAVE PRESS OPERATOR Gender Identity Not on file Sexual Orientation Not on file documented as of this encounter Medications at Time of Discharge cefdinir (OMNICEF) 300 mg capsuleIndications: Community acquired pneumonia Take 1 capsule (300 mg total) by mouth 2 (two) times a day for 7 days 14 capsule 3 02/16/20 23 albuterol (PROVENTIL,VENTOLIN ) 2.5 mg /3 mL [...] times a day 32.1 g 3 3 02/29/20 23 Lactobacillus acidophilus (PROBIOTIC) 10 billion cell [...] or self care documented in this encounter Miscellaneous Notes * Result Encounter Note - Paige Castellanos MA - 02/08/2023 4:36 PM CDT Pt informed. * Result Encounter Note - Umu Lyon PA - 02/08/2023 3:47 PM CDT Please alert patient that her chest x-ray shows findings concerning for developing pneumonia and that I have sent in an antibiotic for her that she needs to start taking immediately. documented in this encounter Plan of Treatment Upcoming Encounters Date Type Department Care Team (Late st Contact Info) Description 02/04/2025 9:30 AM CDT Hospital Encounter [address] [address] Vic Gaines, DO [address] [address] 02/04/2025 9:30 AM CDT - 02/04/2025 10:00 AM CDT Surgery [address] [address] Vic Gaines, DO [address] [address] COLONOSCOPY Scheduled Procedures Name Priority Associated Diagnoses Date/Ti me COLONOSCOPY Encounter for screening colonoscopy 02/04/2025 9:30 AM CDT documented as of this encounter Procedures Procedure Name Priority Date/Time Associated Diagnosis Comments XR CHEST PA LATERAL 2 VIEWS Schedule STAN, Read STAN (Appt Today, Awaiting Results) 02/08/2023 2:58 PM CDT Viral URI with cough documented in this encounter Results * XR Chest Pa Lateral 2 Views (02/08/2023 2:58 PM CDT) Anatomical Region Laterality Modality Body, Chest N/A Computed Radiogr aphy 02/08/2023 3:27 PM CDT Narrative 02/08/2023 3:28 PM CDT EXAM DESCRIPTION: ?? XR CHEST PA LATERAL 2 VIEWS REASON FOR STUDY: ? Complaints of chills/fever/fatigue/cough x 1 day. ?? Smoker. ?? Patient states she has an accelerated heart rate . ?? Hx of double mastectomy x 5 years ago. ?? Hx of asthma as a child. ?? Hx of sleep apnea. ? TECHNIQUE: Frontal and lateral ??radiographic views of the chest acquired. COMPARISON: ?? 12/12/2022 FINDINGS: The heart, mediastinum, and pulmonary vasculature are grossly stable. ??There is no definite evidence of a pneumothorax. ??There is no definite evidence of a pleural effusion. ??There are subtle patchy airspace opacities in the lateral mid right lung and bilateral lung bases. The osseous structures are acutely grossly unremarkable. ??Postsurgical clips are noted in the right upper quadrant the abdomen. IMPRESSION: Subtle patchy airspace opacities in the lateral mid right lung and bilateral lung bases, which is concerning for developing airspace disease. THIS IS AN ELECTRONICALLY VERIFIED FINAL REPORT 02/08/2023 3:28 PM - Electronically signed by ??Joaquina Colmenares D.O. PS: PS D: ??02/08/2023 3:28 PM T: ??02/08/2023 3:28 PM Report ID: [id number] Reading Location: ??[id number] Procedure Note Joaquina Colmenares DO - 02/08/2023 EXAM DESCRIPTION: XR CHEST PA LATERAL 2 VIEWS REASON FOR STUDY: Complaints of chills/fever/fatigue/cough x 1 day. Smoker. Patientstates she has an accelerated heart rate . Hx of double mastectomy x 5 yearsago. Hx of asthma as a child. Hx of sleep apnea. TECHNIQUE: Frontal and lateral radiographic views of the chestacquired. COMPARISON: 12/12/2022 FINDINGS: The heart, mediastinum, and pulmonary vasculature are grossly stable.There is no definite evidence of a pneumothorax. There is no definite evidenceof a pleural effusion. There are subtle patchy airspace opacities in thelateral mid right lung and bilateral lung bases. The osseous structures are acutely grossly unremarkable. Postsurgicalclips are noted in the right upper quadrant the abdomen. IMPRESSION: Subtle patchy airspace opacities in the lateral mid right lung andbilateral lung bases, which is concerning for developing airspace disease. THIS IS AN ELECTRONICALLY VERIFIED FINAL REPORT 02/08/2023 3:28 PM - Electronically signed by Joaquina Colmenares D.O. PS: PS Report ID: [id number] Reading Location: [id number] us Umu SHAFFER IMG XR PROCEDURES F inal Result documented in this encounter Visit Diagnoses Diagnosis Viral URI with cough Encounter for screening colonoscopy documented in this encounter Care Teams Granite Fabricator Relationship Specialty Start Date End Date Harper MyersDO shilpa [address] [place] [address] PCP - General Family Medicine 09/23/21 11/22/23 Phoenix Loredo MD Consulting Physician Cardiology 01/04/19 [place] [address] [place] [address] Vending Machine Assembler Obstetrics and Gynecology 04/19/21 documented as of this encounter
--- OUTSIDE RECORDS SUMMARY | 2024-10-13 04:07 | XMS_ITS | Encounter Summary ---
Author Organization [facility] Address [address] [place] [address] Care Team Providers Care Vp Construction Name Role Phone Phoenix Loredo MD Unavailable [phone] Aylin Lundy MD Unavailable [phone] Harper Myers DO Primary Care Provider [phone] Reason for Visit * Reason Comments Follow-up Encounter Details Date Type Department Care Team (Late st Contact Info) Description 12/09/2021 9:00 AM LIBRARY MANAGER Office Visit [facility] Pulmonology at [address] [place] [address] Ho Jarrett MD [address] [place] [address] [address] [place] [address] Centrilobular emphysema (CMS/HCC) (HCC) (Primary Dx); Smoker; Hypersomnolence; Impetigo Social History Tobacco Use Types Packs/Day Years [...] on file Legal Sex Female 8:44 AM LIBRARY MANAGER Gender Identity Not on file Sexual Orientation Not on file documented as of this encounter Last Filed Vital Signs Vital Sign Reading Time Taken Comments Blood Pressure 118/78 12/09/2021 8:51 AM LIBRARY MANAGER Pulse 73 12/09/2021 8:51 AM LIBRARY MANAGER Temperature 36.3 ??C (97.4 ??F) 12/09/2021 8:51 AM CS T Respiratory Rate 18 12/09/2021 8:51 AM LIBRARY MANAGER Oxygen Saturation 95% 12/09/2021 8:51 AM LIBRARY MANAGER Inhaled Oxygen Concentration - - Weight 75.1 kg (165 lb 9.6 oz) 12/09/2021 8:51 A M LIBRARY MANAGER Height 154.9 cm (5' 1 ) 12/09/2021 8:51 AM LIBRARY MANAGER Body Mass Index 31.29 12/09/2021 8:51 AM LIBRARY MANAGER documented in this encounter Ordered Prescriptions Prescription Sig Dispense Quantity Refills Last Filled Start Date End Date albuterol HFA (PROVENTIL HFA,VENTOLIN HFA,PROAIR HFA) 90 mcg/actuation inhaler Inhale 2 puffs every 6 (six) hours as needed for wheezing 1 each 2 12/09/2021 2 documented in this encounter Progress Notes * Ho Jarrett MD - 12/09/2021 9:00 AM CST PULMONARY CLINIC NOTE Visit Date: 12/09/2021 Chief Complaint: Presents today for ??? Shortness of breath HPI: Mirtha Cherry is a 56 y.o. female w/ PMH of bilateral mastectomy in 2018 for abnormal mammogram/MRI and found to have precancerous lesions (no radiation), peripheral arterial disease status post stenting, esophageal stricture who presents on 12/09/2021 for evaluation of dyspnea on exertion. She was referred by her bowling ball assembler. Diagnosed with asthma 20 years ago. She has not been on any regular inhaler therapy. She has had relatively stable dyspnea but reports it may be increased over the past several years. She underwent pulmonary function testing which was indicative of air trapping and impaired diffusion. Interval History: She reports she is not using nicotine replacement therapy. Still smoking but downto 1/2 ppd. Has not started bevespi due to concerns of it interacting with her using cigarettes. She underwent stress test which did not reveal any inducible ischemia. CT scan showed numerous smallnodules. Breathing has improved more with taking medicine for her heart. Seeing sleep physician here in [place]. Had abnormal home sleep study (BRITTANY 4.8 but with airflow limitations) and scheduled for in lab study. She also reports a skin rash over her face for the last week or so. It has some drainage informs a gold in brown crust. Exposure History: No dust, mold, pets, animals, heavy metals, asbestos Past Medical History: Past Medical History: Diagnosis Date ??? Asthma Asthma; Comments: DNT 07/10/2014 - ??? Dysphagia ??? Gastroesophageal reflux disease GERD ??? 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 HX OTHER MEDICAL 02-TELETYPESETTER MONITOR ??? HX OTHER MEDICAL 2010 capal tunnel [...] systems is negative. OBJECTIVE: Physical Exam: Vitals: 12/09/21 0851 BP: 118/78 Pulse: 73 Resp: 18 Temp: 36.3 ??C (97.4 ??F) SpO2: 95% Weight: 75.1 kg (165 lb 9.6 oz) Height: 154.9 cm (5' [...] upper lip, no crust today Data Review: CT lung cancer screening 09/11/2021: Multiple pulmonary nodules measuring less than 5 mm. Lung rads2 Alpha-1 antitrypsin MM Home sleep study with a respiratory event index of 4.8 Pulmonary Functions Testing Results: 08/16/2021: Pre bronchodilator FEV1 79% predicted, FVC 84% predicted, FEV1/FVC 0.73, TLC 118% predicted, RV 168% predicted, DLCO 51% predicted ASSESSMENT AND PLAN 1. Centrilobular emphysema (CMS/HCC) (HCC) - the patient has air trapping and diffusion impairment, suggestive of COPD/emphysema - she has not started taking the Bevespi and feels that her breathing has actually improved withoutit - she is using her albuterol as needed at times and still has some benefit, refilled today 2. Smoker - she continues to cut back on smoking - discussed medications and nicotine replacement therapy - repeat low-dose CT scan for lung cancer screening in September - CT Lung Cancer Screening; Future 3. Hypersomnolence - she had a borderline home sleep study and reports difficulty sleeping - she is seeing a sleep physician is scheduled for an in-lab sleep study 4. Impetigo - facial erythema with honey colored crusts resembling impetigo - recommend that she see her primary care doctor or urgent care for possible antibiotic therapy Ho Jarrett MD There may be syntax/grammatical errors in this note due to the use of voice recognition software. ARY MANAGER documented in this encounter Plan of Treatment Upcoming Encounters Date Type Department Care Team (Late st Contact Info) Description 02/04/2025 9:30 AM CDT Hospital Encounter [address] [address] Vic Gaines, DO [address] [address] 02/04/2025 9:30 AM CDT - 02/04/2025 10:00 AM CDT Surgery [address] [address] Vic Gaines, DO [address] [address] COLONOSCOPY Scheduled Procedures Name Priority Associated Diagnoses Date/Ti me COLONOSCOPY Encounter for screening colonoscopy 02/04/2025 9:30 AM CDT documented as of this encounter Visit Diagnoses Diagnosis Centrilobular emphysema (HCC)- Primary Smoker Tobacco use disorder Hypersomnolence Hypersomnia, unspecified Impetigo Encounter for screening colonoscopy documented in this encounter Discontinued Medications Medication Sig Discontinue Reason Start Date End Da te albuterol HFA (PROVENTIL HFA,VENTOLIN HFA,PROAIR HFA) 90 mcg/actuation inhaler Inhale 2 puffs every 6 (six) hours as needed for wheezing Reorder 01/09/2019 12/09/2021 documented as of this encounter Care Teams Vp Construction Relationship Specialty Start [place] [address] [place] [address] PCP - General Family Medicine 09/23/21 11/22/23 Phoenix Loredo MD Consulting Physician Cardiology 01/04/19 [place] [address] [place] [address] General Warehouse Worker Obstetrics and Gynecology 04/19/21 documented as of this encounter
--- OUTSIDE RECORDS SUMMARY | 2024-10-13 04:07 | XMS_ITS | Encounter Summary ---
Author Organization [facility] Address [address] [facility] [address] [place] [address] Care Team Providers Care Roller Stitcher Name Role Phone Phoenix Loredo MD Unavailable [phone] Aylin Lundy MD Unavailable [phone] Harper Myers DO Primary Care Provider [phone] Reason for Referral * Sleep Medicine (Routine) - Closed Specialty Diagnoses / Procedures Referred By Denton pickard Referred To Contact Diagnoses TROY (obstructive sleep apnea) Procedures PSG Brianne Florez MD Phone: tel: [address] [address] Referral ID Status Reason Start Date Expiration Date Visits Re quested Visits Authorized [id number] Closed 11/22/2021 12/22/2022 1 1 FELLER Reason for Visit * Reason Comments Sleep Apnea Patient reports she as referred by due to the results of a recent HSAT. Patient has a history of snoring, PVC's, and HTN. * Consultation (Routine) - Closed Specialty Diagnoses / Procedures Referred By Denton pickard Referred To Contact Sleep Medicine Diagnoses TROY (obstructive sleep apnea) Phoenix Loredo MD Phone: tel: fax: Brianne Florez MD Phone: tel: Referral ID Status Reason Start Date Expiration Date V isits Requested Visits Authorized [id number] Closed Specialty Services Required 11/10/2021 11/17/2022 1 1 Encounter Details Date Type Department Care Team (Late st Contact Info) Description 11/22/2021 8:15 AM SEAM FELLER Office Visit [facility] Sleep Medicine at [address] [place] [address] Brianne Florez MD [address] [place] [address] [address] [place] [address] Obstructive sleep apnea (Primary Dx); TROY (obstructive sleep apnea); Hypersomnia; Obesity, unspecified classification, unspecified obesity type, [...] on file Legal Sex Female 8:44 AM SEAM FELLER Gender Identity Not on file Sexual Orientation Not on file documented as of this encounter Last Filed Vital Signs Vital Sign Reading Time Taken Comments Blood Pressure 131/76 11/22/2021 8:04 AM SEAM FELLER Pulse 71 11/22/2021 8:04 AM SEAM FELLER Temperature 36.7 ??C (98.1 ??F) 11/22/2021 8:04 AM CS T Respiratory Rate 18 11/22/2021 8:04 AM SEAM FELLER Oxygen Saturation 96% 11/22/2021 8:04 AM SEAM FELLER Inhaled Oxygen Concentration - - Weight 73.5 kg (162 lb) 11/22/2021 8:04 AM SEAM FELLER Height 154.9 cm (5' 1 ) 11/22/2021 8:04 AM SEAM FELLER Body Mass Index 30.61 11/22/2021 8:04 AM SEAM FELLER documented in this encounter Progress Notes * Brianne Florez MD - 11/22/2021 8:15 AM CST SUBJECTIVE Chief Complaints: Snoring, unrefreshing sleep, excessive daytime sleepiness HPI: Mirtha Cherry is a 56 y.o. female with past medical history significant for patient for arterial disease status post stent, dyslipidemia, chronic tobacco use, carotid stenosis, frequent PVCs, obesity, allergic rhinitis, gastroesophageal reflux disease, migraine, was seen in the sleep medicine clinic for consultation. The patient was requested to be seen by Dr. Loredo, cardiology for opinion regarding the above symptoms. Snoring, excessive daytime sleepiness: Patient gives history of many years of [...] history of obstructive sleep apnea. Sleep schedule: During weekdays, patient goes to bed at [...] rest which gets better with activity. ESS: 20 Past Medical History: Diagnosis Date ??? Asthma Asthma; Comments: DNT 07/10/2014 - ??? Dysphagia ??? Gastroesophageal reflux disease GERD ??? 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 HX OTHER MEDICAL 2010 capal tunnel [...] 2004 and 2007 ??? OTHER SURGICAL HISTORY 2003 polypectomy for vocal cords Current Outpatient Medications: ??? albuterol, 2.5 mg, nebulization, Q6H PRN ??? albuterol HFA, 2 puff, inhalation, Q6H PRN ??? aspirin, 81 mg, oral, Daily ??? atorvastatin, TAKE 1 TABLET(40 MG) BY MOUTH DAILY ??? clopidogreL, TAKE 1 TABLET(75 MG) BY MOUTH DAILY ??? Co Q-10, Take 1 capsule by oral route every day ??? famotidine, 40 mg, oral, Nightly ??? fluticasone propionate, 1 spray, each nostril, Daily ??? Probiotic, Take 1 capsule by oral route every day ??? loratadine, 10 mg, oral, Daily ??? metoprolol XL, 25 mg, oral, Daily ??? multivitamin, 1 capsule, oral, Daily ??? SUMAtriptan, May repeat dose once in 2 hours if no relief. Do not exceed 2 doses in 24 hours. ??? glycopyrrolate-formoteroL, 2 puff, inhalation, BID (Patient not taking: Reported on 11/22/2021) ??? nicotine, 1 patch, transdermal, Q24H ??? pimecrolimus, Apply topically 2 (two) times a day (Patient not taking: Reported on 11/22/2021) Allergies Allergen Reactions ??? Adhesive Rash Reaction: [...] Family history of Diabetes mellitus; Physical Exam: Vitals: 11/22/21 0804 BP: 131/76 Pulse: 71 Resp: 18 Temp: 36.7 ??C (98.1 ??F) TempSrc: Temporal SpO2: 96% Weight: 73.5 kg (162 lb) Height: 154.9 cm (5' 1 ) BMI: Body mass index is 30.61 kg/m??. Wt Readings from Last 6 Encounters: 11/22/21 73.5 kg (162 lb) 10/29/21 73.8 kg (162 lb 9.6 oz) 10/19/21 73.9 kg (163 lb) 09/17/21 73.9 kg (163 lb) 08/31/21 74.2 kg (163 lb 9.6 oz) 08/02/21 72.6 kg (160 lb) BMI Readings from Last 6 Encounters: 11/22/21 30.61 kg/m?? 10/29/21 30.72 kg/m?? 10/19/21 30.80 kg/m?? 09/17/21 30.80 kg/m?? 08/31/21 30.91 kg/m?? 08/02/21 30.23 kg/m?? Physical Exam General appearance: Alert, oriented, in no distress. HEENT: Atraumatic, normocephalic. Pupils are equal and reactive to light. Extraocular movement intact. Mallampati-III. Neck circumference-14.5 in. Positive for macroglossia and scalloped tongue Neuro: No focal deficits Psychiatric: Normal mood and affect Polysomnogram results: Home sleep apnea testing in 11/2021: Negative, but multiple airflow fluctuations concerning for RERAs. Data download: NA Ejection fraction: Stress test on 09/2021: 50% Echocardiogram from 09/2021:67% Assessment and Plan: Data reviewed today: Dr. Loredo, cardiology: Peripheral arterial disease bilateral stents showed aortic bifurcation in 2007 and 2015, frequent PVCs. Sleep study for evaluation of TROY Lab results: CO2 - 26, creatinine 0.87, TSH - 1.28 Echocardiogram result from 2020: Reviewed as above Home sleep apnea testing from 2021: Reviewed as above 1. Obstructive sleep apnea: o Home sleep apnea testing negative for obstructive sleep apnea, but multiple airflow fluctuations concerning for RERAs noted. o Symptoms suggestive of obstructive sleep apnea syndrome which is likely worsening. o Will obtain in-lab polysomnogram given the concern for RERAs and clinical suspicion of obstructive sleep apnea. Patient verbalized understanding. Follow- up after sleep study. o The physiology of sleep disordered breathing [...] associated with uncontrolled sleep disordered breathing. o Monitor response to therapy for the above. o No driving if sleepy. 3. Morbid Obesity: o The effects of obesity, obstructive sleep apnea syndrome and other morbidities were discussed. o Recommended diet and exercise for ideal body weight. Patient verbalized understanding. 4. Return to clinic in 4 weeks after sleep study is completed. Voice recognition software [employer] was used dictate and transcribe this document. Drum Attendant variances may occur. Despite proofreading, typographical errors may occur. Brianne Florez MD [facility] Sleep Medicine CC: Harper Myers DO FELLER documented in this encounter Plan of Treatment Upcoming Encounters Date Type Department Care Team (Late st Contact Info) Description 02/04/2025 9:30 AM CDT Hospital Encounter [address] [address] Vic Gaines DO [address] [facility] [address] [place] [address] 02/04/2025 9:30 AM CDT - 02/04/2025 10:00 AM CDT Surgery [address] [address] Vic Gaines DO [address] [facility] [address] [place] [address] COLONOSCOPY Scheduled Procedures Name Priority Associated Diagnoses Date/Ti me COLONOSCOPY Encounter for screening colonoscopy 02/04/2025 9:30 AM CDT documented as of this encounter Results * PSG (12/27/2021) Impressions Brianne Florez MD - 12/27/2021 Baseline Polysomnogram ?? History: Mirtha Cherry is a 56 y.o. female who presents for baseline polysomnogram. Reason for sleep study: Snoring, excessive daytime sleepiness Past medical history: peripheral arterial disease status post stent, dyslipidemia, chronic tobacco use, carotid stenosis, frequent PVCs, obesity, allergic rhinitis, gastroesophageal reflux disease, migraine Medications: reviewed Barryton sleepiness score: 16 BMI: 31.18 ? Procedure: This overnight diagnostic baseline polysomnogram was performed with the distribution engineering technologist in attendance. Patient is studied with [...] scored according to the criteria from The [place] [employer] (AASM) Manual for [...] MSLT is recommended. ? Brianne Florez MD [facility] Sleep Medicine ? Narrative Brianne Florez MD - 12/27/2021 In lab for review us Brianne Florez MD SLEEP CENTER ORDERABLES Final Re sult * COVID-19 Coronavirus RNA Nasopharyngeal (12/21/2021 2:12 PM CDT) COVID-19 RNA Not Detected [facility] ([place]) Comment: Interpretive Data Synonyms for this test include: PCR and NAAT . ??Testing performed by the [facility]. The 2019-Novel Coronavirus [...] on November 12, 2020. Testing performed by: [facility], [address] [place] [address]., [address] Employeed in healthcare? No [facility] ([place]) Comment:Testing performed by : [address] [place]., [address] status? No [facility] (ART[place]IO) Comment:Testing performed by : [facility], [address] [place] [address], [place]., [address] Group care resident? No [facility] ([facility]) Comment:Testing performed by : [facility], [address] [place] [address]., [address] Hospitalized? No [facility] ([facility]) Comment:Testing performed by : [address] [address] Is patient in ICU? No [facility] ([facility]) Comment:Testing performed by : [facility], [address] [place]., [address] Symptomatic as defined by CDC? No [facility] (ARTEMIO) Comment:Testing performed by : [facility], [address] [place]., [address] Nasopharyngeal 12/21/2021 2: 12 PM CDT 12/21/2021 11:20 PM CDT Narrative [facility]AY [facility] (ARTEMIO) - 12/22/2021 6:09 AM CDT What is the reason for testing?->Screening prior to scheduled??procedure or surgery??(Batched) Brianne Florez MD LAB MICROBIOLOGY - GENERAL ORDER JAGDEEP Final Result [facility]AY [facility] (ARTEMIO) [address] [facility] Department [place] [address] documented in this encounter Visit Diagnoses Diagnosis Obstructive sleep apnea- Primary Obstructive sleep apnea (adult) (pediatric) TROY (obstructive sleep apnea) Obstructive sleep apnea (adult) (pediatric) Hypersomnia Hypersomnia, unspecified Obesity, unspecified classification, unspecified obesity type, unspecified whether serious comorbidity present TROY (obstructive sleep apnea) Obstructive sleep apnea (adult) (pediatric) TROY (obstructive sleep apnea) Obstructive sleep apnea (adult) (pediatric) Snoring Other dyspnea and respiratory abnormality Encounter for screening colonoscopy documented in this encounter Orders Outpatient Referral Count Last Ordered Date Fir st Ordered Date AMB REFERRAL TO SLEEP MEDICINE 1 11/22/2021 documented in this encounter Care Teams Roller Stitcher Relationship Specialty [place] [address] [place] [address] PCP - General Family Medicine 09/23/21 11/22/23 Phoenix Loredo MD Consulting Physician Cardiology 01/04/19 [place] [address] [place] [address] Lap Hand Tool Obstetrics and Gynecology 04/19/21 documented as of this encounter
--- OUTSIDE RECORDS SUMMARY | 2024-10-13 04:07 | XMS_ITS | Encounter Summary ---
Author Organization [facility] Medical [facility] Address [address] [facility] [address] [place] [address] Care Team Providers Care Medical Case Worker Name Role Phone Phoenix Loredo MD Unavailable [phone] Aylin Lundy MD Unavailable [phone] Harper Myers DO Primary Care Provider [phone] Reason for Visit * Reason Comments Sinus Problem Sx x 3 weeks: Postna samuel drip, sinus pressure, productive cough. Pt was dx with bronchitis three weeks ago. Pt has done steroids and albuterol Mouth Lesions Sx 3 days: Pt C/O mo uth and nose sores. Pt states it is painful. 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 Gender Identity Not on file Sexual Orientation Not on file documented as of this encounter Last Filed Vital Signs Vital Sign Reading Time Taken Comments Blood Pressure 128/78 01/09/2022 10:54 AM CDT Pulse 80 01/09/2022 10:54 AM CDT Temperature 36.8 ??C (98.2 ??F) 01/09/2022 10:54 AM C DT Respiratory Rate 14 01/09/2022 10:54 AM CDT Oxygen Saturation 97% 01/09/2022 10:54 AM CDT Inhaled Oxygen Concentration - - Weight 74.8 kg (165 lb) 01/09/2022 10:54 AM CDT Height 154.9 cm (5' 1 ) 01/09/2022 10:54 AM CDT Body Mass Index 31.18 01/09/2022 10:54 AM CDT documented in this encounter Patient Instructions * Patient Instructions* Niecy Plummer NP - 01/09/2022 11:00 AM CDT Mupirocin ordered for nose sores. Apply as directed for 5-10 days. Nystatin ordered for thrush - use as directed Continue to drink increased water. Try the Benadryl or Tylenol PM at night to decrease the drainage. Follow up with Dr. Myers as needed. documented in this encounter Ordered Prescriptions Prescription Sig Dispense Quantity Refills Last Filled Start Date End Date nystatin 100,000 unit/mL suspensionIndicati ons:Thrush, oral Take 5 mL (500,000 Units total) by mouth 4 (four) times a day Swish in mouth and spit out. 280 mL 01/09/2022 2 mupirocin (BACTROBAN) 2 % creamIndications:p eritoneal dialysis catheter care Apply small amount to top of Q Tip and insert into opening of each nare twice a day for 5-10 days. 15 g 01/09/2022 2 documented in this encounter Progress Notes * Niecy Plummer, TUBE ROOM SUPERVISOR - 01/09/2022 11:00 AM CDT Images from the original note were not included. Subjective/Objective Patient ID: Mirtha Cherry is a 56 y.o. female. Chief Complaint Sinus Problem (Sx x 3 weeks: Postnasal drip, sinus pressure, productive cough. Pt was dx with bronchitis three weeks ago. Pt has done steroids and albuterol ) and Mouth Lesions (Sx 3 days: Pt C/O mouth and nose sores. Pt states it is painful. Pts tongue looks white as if possible thrush from the albuterol ) States her sores in nose and tongue discomfort are the worst symptoms. She thinks she is beginning to recover from the bronchitis after 3 weeks. She was on an antibiotic recently too and has completed that. Review of Systems Constitutional: Negative for fatigue and fever. HENT: Positive for postnasal drip, rhinorrhea and sinus pressure. Negative for congestion and sore throat. Sores in nose - tried Abreva with some relief. Tongue is irritated. Respiratory: Positive for cough. Negative for chest tightness and shortness of breath. Cardiovascular: Negative for chest pain. Gastrointestinal: Negative for abdominal pain, diarrhea, nausea and vomiting. Skin: Negative for color change. Neurological: Negative for dizziness. Hematological: Negative for adenopathy. Psychiatric/Behavioral: Negative for confusion. Physical Exam HENT: Right Ear: Tympanic membrane normal. Left Ear: Tympanic membrane normal. Nose: No congestion or rhinorrhea. Right Sinus: No maxillary sinus tenderness or frontal sinus tenderness. Left Sinus: No maxillary sinus tenderness or frontal sinus tenderness. Comments: Nares are red and swollen Mouth/Throat: Comments: Tongue is coated with white and no drainage or ulcers are noted. Eyes: Conjunctiva/sclera: Conjunctivae normal. Cardiovascular: Rate and Rhythm: Regular rhythm. Heart sounds: Normal heart sounds. Pulmonary: Effort: No respiratory distress. Breath sounds: No wheezing, rhonchi or rales. Abdominal: Palpations: Abdomen is soft. Lymphadenopathy: Cervical: No cervical adenopathy. Skin: Findings: No rash. Neurological: Mental Status: She is alert. Psychiatric: Behavior: Behavior normal. Vitals: 01/09/22 1054 BP: 128/78 Pulse: 80 Resp: 14 Temp: 36.8 ??C (98.2 ??F) TempSrc: Oral SpO2: 97% Weight: 74.8 kg (165 lb) Height: 154.9 cm (5' 1 ) Assessment/Plan Mupirocin ordered for nose sores. Apply as directed for 5-10 days. Nystatin ordered for thrush - use as directed Continue to drink increased water. Try the Benadryl or Tylenol PM at night to decrease the drainage. Follow up with Dr. Myers suggested to review and follow up on her recent illness. Diagnoses and all orders for this visit: Rhinitis, unspecified type (Primary) - mupirocin (BACTROBAN) 2 % cream; Apply small amount to top of Q Tip and insert into opening of each nare twice a day for 5-10 days. Thrush, oral - nystatin 100,000 unit/mL suspension; Take 5 mL (500,000 Units total) by mouth 4 (four) times a day Swish in mouth and spit out. Disposition- Discussed medications dosages, usage & potential side effects. Risks and interactions reviewed with patient. Indications for testing reviewed. Patient has been instructed to follow up w PCP or go to ER for any signs or symptoms that are of concern or worsening. Patient verbalizes understanding. The patient was given the opportunity to ask all questions and to have all questions answered. Patient is in agreement with the plan of care Niecy Plummer NP documented in this encounter Plan of Treatment Upcoming Encounters Date Type Department Care Team (Late st Contact Info) Description 02/04/2025 9:30 AM CDT Hospital Encounter [facility] [address] [place] [address] Vic Gaines, DO [address] [address] 02/04/2025 9:30 AM CDT - 02/04/2025 10:00 AM CDT Surgery [facility] [address] [place] [address] Vic Gaines DO [address] [address] COLONOSCOPY Scheduled Procedures Name Priority Associated Diagnoses Date/Ti me COLONOSCOPY Encounter for screening colonoscopy 02/04/2025 9:30 AM CDT documented as of this encounter Visit Diagnoses Diagnosis Rhinitis, unspecified type- Primary Thrush, oral Encounter for screening colonoscopy documented in this encounter Care Teams Medical Case Worker Relationship Specialty Start Date End [place] [address] [place] [address] PCP - General Family Medicine 09/23/21 11/22/23 Phoenix Loredo MD Consulting Physician Cardiology 01/04/19 [place] [address] [place] [address] Funeral Service Licensee Obstetrics and Gynecology 04/19/21 documented as of this encounter
--- OUTSIDE RECORDS SUMMARY | 2024-10-13 04:07 | XMS_ITS | Encounter Summary ---
Author Organization [facility] Medical Group Address [address] [facility] [address] [place] [address] Care Team Providers Care Personnel Associate Name Role Phone Phoenix Loredo MD Unavailable [phone] Aylin Lundy MD Unavailable [phone] Harper Myers DO Primary Care Provider [phone] Reason for Referral * Diagnostic Imaging (Routine) - Closed Specialty Diagnoses / Procedures Referred By Contac t Referred To Contact Diagnoses Atherosclerosis of [place] arteries of extremities with intermittent claudication, bilateral legs (HCC) Procedures US ABE Kenzie Be NP [address] [facility] [address] [place] [address] Phone: tel: fax: [address] [address] Referral ID Status Reason Start Date Expiration Date Visits Re quested Visits Authorized [id number] Closed 12/26/2022 01/25/2024 1 1 * Diagnostic Imaging (Routine) - Closed Specialty Diagnoses / Procedures Referred By Contmanuela t Referred To Contact Diagnoses Carotid bruit, unspecified laterality Procedures US Carotids Duplex Bilateral Kenzie Be NP [address] [facility] [address] [place] [address] Phone: tel: fax: [facility] 1 [place] [address] Referral ID Status Reason Start Date Expiration Date Visits Re quested Visits Authorized [id number] Closed 12/26/2022 01/25/2024 1 1 Reason for Visit * Reason Comments Peripheral Vascular Disease Encounter Details Date Type Department Care Team (Late st Contact Info) Description 12/26/2022 1:30 PM CDT Office Visit [place] [facility] 2 [facility] [address] [place] [address] Kenzie Be NP [address] [place] [address] [address] [place] [address] Mixed hyperlipidemia (Primary Dx); PVD (peripheral vascular disease) (CMS/HCC) (HCC); Bilateral carotid artery stenosis; PVC (premature ventricular contraction); Carotid bruit, unspecified laterality; Atherosclerosis of [place] arteries of extremities with intermittent claudication, bilateral [...] on file 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 Gender Identity Not on file Sexual Orientation Not on file documented as of this encounter Last Filed Vital Signs Vital Sign Reading Time Taken Comments Blood Pressure 105/78 12/26/2022 1:39 PM CDT Pulse - - Temperature - - Respiratory Rate 16 12/26/2022 1:39 PM CDT Oxygen Saturation - - Inhaled Oxygen Concentration - - Weight 68.9 kg (152 lb) 12/26/2022 1:39 PM CDT Height 154.9 cm (5' 1 ) 12/26/2022 1:39 PM CDT Body Mass Index 28.72 12/26/2022 1:39 PM CDT documented in this encounter Progress Notes * Kenzie Be, CRISTIANO - 12/26/2022 1:30 PM CDT Cardiology note Reason for Office Visit: [...] mm balloon) covered stents in 2007 at [facility]. Patient had balloon angioplasty done for repeat stenosis in 2014. 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 US doppler showed [...] TROY. Interrupted sleep, daytime sleepy. Cat nap. Her ABE is down a little at 0.85 on the right and 0.81 on the left. She is having no issues. She can walk unlimited. 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 Vital Signs: Vitals BP 105/78 (BP Location: Left arm, Patient Position: Sitting) Resp 16 Ht 154.9 cm (5' 1 ) Wt 68.9 kg (152 lb) LMP (LMP Unknown) BMI 28.72 kg/m?? Vitals: 12/26/22 1339 BP: 105/78 Resp: 16 Wt Readings from Last 3 Encounters: 12/26/22 68.9 kg (152 lb) 12/19/22 68.9 kg (151 lb 14.4 oz) 09/27/22 69.4 kg (153 lb) Body mass index is 28.72 kg/m??. Physical Exam: Physical Exam Constitutional: General: [...] 06/01/2017 Lab Results Component Value Date TSH 1.42 06/20/2022 Lab Results Component Value Date AST 21 06/20/2022 ALT 18 06/20/2022 ALKPHOS 100 06/20/2022 ALBUMIN 4.4 06/20/2022 Lab Results Component Value Date SODIUM 142 06/20/2022 POTASSIUM 4.6 06/20/2022 CHLORIDE 108 06/20/2022 CO2 23 06/20/2022 ANIONGAP 11 06/20/2022 GLUCOSEUR Negative 09/27/2022 No results found for: BNP Lab Results Component Value Date SODIUM 142 06/20/2022 SODIUM 137 10/15/2021 SODIUM 140 04/29/2021 POTASSIUM 4.6 06/20/2022 POTASSIUM 4.7 10/15/2021 POTASSIUM 4.5 04/29/2021 CHLORIDE 108 06/20/2022 CHLORIDE 102 10/15/2021 CHLORIDE 105 04/29/2021 CO2 23 06/20/2022 CO2 26 10/15/2021 CO2 26 04/29/2021 BUNSER 10 06/20/2022 BUNSER 12 10/15/2021 BUNSER 9 04/29/2021 CREATININE 0.85 06/20/2022 CREATININE 0.87 10/15/2021 CREATININE 0.95 04/29/2021 GFRNAA 79 06/20/2022 GFRNAA 78 10/15/2021 GFRNAA 66 04/29/2021 GLUCOSE 106 06/20/2022 CALCIUM 9.4 06/20/2022 CALCIUM 9.0 10/15/2021 CALCIUM 9.1 04/29/2021 ALBUMIN 4.4 06/20/2022 ALBUMIN 4.3 10/15/2021 ALBUMIN 4.1 04/10/2021 Lab Results Component Value Date SODIUM 142 06/20/2022 POTASSIUM 4.6 06/20/2022 CHLORIDE 108 06/20/2022 CO2 23 06/20/2022 ANIONGAP 11 06/20/2022 BUNSER 10 06/20/2022 CREATININE 0.85 06/20/2022 GLUCOSE 106 06/20/2022 CALCIUM 9.4 06/20/2022 BILITOT 0.4 06/20/2022 PROT 6.7 06/20/2022 ALBUMIN 4.4 06/20/2022 ALKPHOS 100 06/20/2022 ALT 18 06/20/2022 AST 21 06/20/2022 Lab Results Component Value Date WBC 7.7 06/20/2022 HGB 16.0 (H) 06/20/2022 HCT 45.9 (H) 06/20/2022 LABPLAT 214 06/20/2022 MPV 11.4 06/20/2022 RBC 5.06 06/20/2022 MCV 90.7 06/20/2022 MCH 31.6 06/20/2022 MCHC 34.9 06/20/2022 RDWCV 13.3 06/20/2022 RDWSD 44.2 06/20/2022 NRBCABS 0.00 06/20/2022 Lab Results Component Value Date CHOL 143 06/20/2022 TRIG 144 06/20/2022 HDL 35 (L) 06/20/2022 LDLCALC 79 06/20/2022 NONHDLCHOL 108 06/20/2022 CHOLHDL 4 06/20/2022 Testing: Tests: 05/2016 Ankle-brachial Index ratio was [...] the ankle. EK12/2015 SR possible old anterior DC 07/2016 SR , possible old anterior DC AIF 05/2021 IMPRESSION 1. Patent previously-implanted covered [...] lower extremity, ABE 0.81, biphasic wave form. EKG 07/12/2021 showed sinus [...] and October 2021 were normal. ABE in december 2022 is down slightly. #2 Hyperlidemia- followed by PCP, LDL above target #3 Tobacco abuse, ongoing trying to quit #4 Carotid stenosis, mild by duplex 07/2021 #5 Frequent PVCs, 11% burden by a monitor in August 2021. Normal echo. Negative nuclear stress test in September 2021 although borderline by EKG criteria Plan: Continue same medication regimen. Recommended to increase statin but patient does not want to do this. She can walk unlimited and has no open sores. Continue tight control of blood pressure and cholesterol. Continue diet, exercise, and weight reduction. RTC 6 mo with ABE BNV Diagnoses and all orders for this visit: Mixed hyperlipidemia (Primary) PVD (peripheral vascular disease) (CMS/HCC) (HCC) Bilateral carotid artery stenosis PVC (premature ventricular contraction) No follow-ups on file. 12/26/2022 @ 1:55 PM Kenzie Be NP Cc:Harper Myers, documented in this encounter Miscellaneous Notes * Addendum Note - Zuleima Givens - 12/26/2022 1:30 PM CDTAddended by: ZULEIMA GIVENS on: 12/26/2022 02:05 PM Modules accepted: Orders documented in this encounter Plan of Treatment Upcoming Encounters Date Type Department Care Team (Late st Contact Info) Description 02/04/2025 9:30 AM CDT Hospital Encounter [address] [address] Vic Gaines, DO 3 [facility] [address] [place] [address] 02/04/2025 9:30 AM CDT - 02/04/2025 10:00 AM CDT Surgery [address] [address] Vic Gaines DO 3 [facility] [address] [place] [address] COLONOSCOPY Scheduled Procedures Name Priority Associated Diagnoses Date/Ti me COLONOSCOPY Encounter for screening colonoscopy 02/04/2025 9:30 AM CDT documented as of this encounter Results * US Carotids Duplex Bilateral (06/30/2023 9:07 AM CDT) Anatomical Region Laterality Modality Vascular Bilateral Ultrasound 06/30/2023 8:46 AM CDT Narrative 06/30/2023 6:05 PM CDT Smooth [address] [address] Carotid Duplex Report Patient Name: MOSHE HARTLEY ?? : 1965 (58y 2m) ??Gender: F Study Date: 2023-06-30 8:46:44 AM Inspector Exhaust Emissions: CO Order Provider: KENZIE BE Quality: Adequate [...] ? Electronically Signed By: Jonathan Solorio MD, [facility] 2023-06-30 18:05:55 CDT Procedure Note Jonathan Solorio MD - 06/30/[address] [address] Carotid Duplex Report Patient Name: CANDACE HARTLEYORESPatient ID: [id number] : 1965 (58y 2m) Gender: FStudy Date: [...] 1.61 Electronically Signed By: Jonathan Solorio MD, [facility] 2023-06-30 18:05:55 CDT us Kenziejusta Be NP IMG US PROCEDURES Final Result * US ABE (06/30/2023 8:35 AM CDT) Anatomical Region Laterality Modality Vascular N/A Ultrasound 06/30/2023 8:12 AM CDT Narrative 06/30/2023 9:00 AM CDT [address] [place] [address] Ankle Brachial Index Report Patient Name: MOSHE HARTLEY ?? : 1965 (58y 2m) ??Gender: F Study Date: 06/30/2023 8:12:00 AM Inspector Exhaust Emissions: Order Provider: KENZIE BE Quality: Adequate Ref.Provider: [...] Procedure Note Phoenix Loredo MD - 06/30/[address] [place] [address] Ankle Brachial Index Report Patient Name: Elver HARTLEYent ID: [id number] : 1965 (58y 2m) Gender: FStudy Date: 06/30/2023 8:12:00 AM Order Provider: KENZIE BEQuality: Adequate Ref.Provider: KENZIE [...] By: Phoenix Loredo MD 2023-06-30 09:00:32 CDT Kenzie Be NP IMG US PROCEDURES Final Result documented in this encounter Visit Diagnoses Diagnosis Mixed hyperlipidemia- Primary PVD (peripheral vascular disease) (HCC) Unspecified peripheral vascular disease Bilateral carotid artery stenosis Occlusion and stenosis of carotid artery without mention of cerebral infarction PVC (premature ventricular contraction) Other premature beats Carotid bruit, unspecified laterality Atherosclerosis of chehal[place] arteries of extremities with intermittent claudication, bilateral legs (HCC) Carotid bruit, unspecified laterality Atherosclerosis of [place] arteries of extremities with intermittent claudication, bilateral legs (HCC) Encounter for screening colonoscopy documented in this encounter Care Teams Personnel Associate Relationship Specialty [place] [address] [place] [address] PCP - General Family Medicine 09/23/21 11/22/23 Phoenix Loredo MD Consulting Physician Cardiology 01/04/19 [place] [address] [place] [address] Stock Speculator Obstetrics and Gynecology 04/19/21 documented as of this encounter
--- OUTSIDE RECORDS SUMMARY | 2024-10-13 04:07 | XMS_ITS | Encounter Summary ---
Author Organization [facility] Healthcare Address [address] [place] [address] Care Team Providers Care Jowl Trimmer Name Role Phone Phoenix Loredo MD Unavailable [phone] Aylin Lundy MD Unavailable [phone] Harper Myers DO Primary Care Provider [phone] Reason for Referral * Diagnostic Imaging (Routine) - Closed Specialty Diagnoses / Procedures Referred By Contac t Referred To Contact Diagnoses Atherosclerosis of [place] arteries of extremities with intermittent claudication, bilateral legs (HCC) Procedures US ABE Kenzie Be NP [address] [facility] [address] [place] [address] Phone: tel: fax: [address] [address] Referral ID Status Reason Start Date Expiration Date Visits Re quested Visits Authorized [id number] Closed 05/17/2022 06/16/2023 1 1 Reason for Visit * Diagnostic Imaging (Routine) - Closed Specialty Diagnoses / Procedures Referred By Contac neeraj Referred To Contact Diagnoses Atherosclerosis of [place] arteries of extremities with intermittent claudication, bilateral legs (HCC) Procedures US ABE Kenzie Be NP [address] [facility] [address] [place] [address] Phone: tel: fax: [facility] 1 [place] [address] Referral ID Status Reason Start Date Expiration Date Visits Re quested Visits Authorized [id number] Closed 05/17/2022 06/16/2023 1 1 Encounter Details Date Type Department Care Team (Latest Contact Info) Description 12/20/2022 2:15 PM CDT - 12/20/2022 11:59 PM CDT Hospital Encounter [facility] 1 [place] [address] Atherosclerosis of [place] arteries of extremities with intermittent claudication, bilateral [...] on file 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 Gender Identity Not on file Sexual [...] 02/04/2025 9:30 AM CDT Hospital Encounter [address] [address] Vic Gaines, DO 3 [facility] [address] [facility] [address] [place] [address] 02/04/2025 9:30 AM CDT - 02/04/2025 10:00 AM CDT Surgery [address] [address] Vic Gaines, DO [address] [facility] [place] [address] [place] [address] COLONOSCOPY Scheduled Procedures Name Priority Associated Diagnoses Date/Ti me COLONOSCOPY Encounter for screening colonoscopy 02/04/2025 9:30 AM CDT documented as of this encounter Procedures Procedure Name Priority Date/Time Associated Diagnosis Comments US ABE Schedule Routine, Read Routine (OP Routine) 12/20/2022 2:36 PM CDT Atherosclerosis of [place] arteries of extremities with intermittent claudication, bilateral legs (HCC) documented in this encounter Results * US ABE (12/20/2022 2:36 PM CDT) Anatomical Region Laterality Modality Vascular N/A Ultrasound 12/20/2022 2:22 PM CDT Narrative 12/20/2022 4:[address] PM [address]T [address] [address] Ankle Brachial Index Report Patient Name: MOSHE HARTLEY ?? : 1965 (57y 8m) ??Gender: F Study Date: 12/20/2022 2:22:00 PM Teleradiologist: Order Provider: KENZIE BE Quality: Adequate Ref.Provider: [...] Procedure Note Conrad Martinez MD - 12/20/[address] [address] Ankle Brachial Index Report Patient Name: Adry HARTLEY ID: [id number] : 1965 (57y 8m) Gender: FStudy Date: [...] Signed By: Conrad Martinez 2022-12-20 16:19:07 CDT us Kenzie Thao Be AUTOMOTIVE SALES ASSOCIATE IMG US PROCEDURES Final Result documented in this encounter Visit Diagnoses Diagnosis Atherosclerosis of [place] arteries of extremities with intermittent claudication, bilateral legs (HCC) Encounter for screening colonoscopy documented in this encounter Care Teams Jowl Trimmer Relationship Specialty [place] [address] [place] [address] PCP - General Family Medicine 09/23/21 11/22/23 Phoenix Loredo MD Consulting Physician Cardiology 01/04/19 [place] [address] [place] [address] Manufacturing Chief Engineer Obstetrics and Gynecology 04/19/21 documented as of this encounter
--- OUTSIDE RECORDS SUMMARY | 2024-10-13 04:07 | XMS_ITS | Encounter Summary ---
Author Organization [facility] Medical Group Address [address] [facility] [address] [place] [address] Care Team Providers Care Babbitter Name Role Phone Phoenix Loredo MD Unavailable [phone] Aylin Lundy MD Unavailable [phone] Harper Myers DO Primary Care Provider [phone] Reason for Visit * Reason Comments Cough Cough with congestio n/ cough is worse at night not sleeping- patient is used to getting bronchitis this time of year Encounter Details Date Type Department Care Team (Late st Contact Info) Description 12/31/2021 11:45 AM CDT Office Visit [facility] [address] [facility] [id number] Roxana Maria, CRISTIANO [address] [place] [address] [place] [id number] Bronchitis (Primary Dx) Social History Tobacco Use Types Packs/Day Years Used Date Smoking Tobacco: Every Day Cigarettes 1 40 Smokeless Tobacco: Never Tobacco Cessation:Ready to Q uit: No Comments:Smoking History Packs/day: 0.5 Packs Alcohol [...] on file 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 Gender Identity Not on file Sexual Orientation Not on file documented as of this encounter Last Filed Vital Signs Vital Sign Reading Time Taken Comments Blood Pressure 120/64 12/31/2021 11:24 AM CDT Pulse 85 12/31/2021 11:24 AM CDT Temperature 36.5 ??C (97.7 ??F) 12/31/2021 11:24 AM C DT Respiratory Rate 20 12/31/2021 11:24 AM CDT Oxygen Saturation 96% 12/31/2021 11:24 AM CDT Inhaled Oxygen Concentration - - Weight 74.8 kg (165 lb) 12/31/2021 11:24 AM CDT Height 154.9 cm (5' 1 ) 12/31/2021 11:24 AM CDT Body Mass Index 31.18 12/31/2021 11:24 AM CDT documented in this encounter Patient Instructions * Patient Instructions* Roxana Maria NP - 12/31/2021 11:45 AM CDT If you were prescribed any medication, take the medication until gone If you have a congested cough with thick mucus, you can use Mucinex DM Cough meds like Dayquil/Delsym can be used Sudafed for nasal congestion Flonase for sinuses Zyrtec/Claritin for drainage Drink plenty of fluids to stay hydrated Humidifier If you experience any shortness of breath or chest tightness- go to ER for further treatment If you are not getting any better- follow up w PCP in 5-7 days Avoid lung irritants Quit smoking Cold air can make symptoms worse documented in this encounter Ordered Prescriptions Prescription Sig Dispense Quantity Refills Last Filled Start Date End Date albuterol 2.5 mg /3 mL (0.083 %) nebulizer solutionIndicatio ns:Bronchitis Take 3 mL (2.5 mg total) by nebulization every 4 (four) hours as needed for wheezing or shortness of breath 125 mL 12/31/2021 2 predniSONE (DELTASONE) 20 mg tabletIndications :Bronchitis Take 1 tablet (20 mg) by mouth daily for 7 days 7 tablet 12/31/2021 2 documented in this encounter Progress Notes * Roxana Maria, TOOL CRIB ATTENDANT - 12/31/2021 11:45 AM CDT Images from the original note were not included. Subjective/Objective Patient ID: Mirtha Cherry is a 56 y.o. female. Chief Complaint Cough (Cough with congestion/ cough is worse at night not sleeping- patient is used to getting bronchitis this time of year ) Presents to clinic for cough x1 week. She has taken mucinex & she used some albuterol treatment last night because she could not stop coughing. States she has asthma & usually it starts w allergy symptoms, but she has not had any other symptoms Cough This is a new problem. The current episode started in the past 7 days. The cough is productive of sputum. Pertinent negatives include no ear pain, fever, headaches, myalgias, postnasal drip, rash, rhinorrhea, sore throat or shortness of breath. She has tried a beta-agonist inhaler for the symptoms.Her past medical history is significant for asthma. Review of Systems Constitutional: Negative for activity change, appetite change, fatigue and fever. HENT: Negative for congestion, ear discharge, ear pain, postnasal drip, rhinorrhea, sinus pressure and sore throat. Eyes: Negative for discharge. Respiratory: Positive for cough. Negative for shortness of breath. Gastrointestinal: Negative for diarrhea, [...] sinus tenderness or frontal sinus tenderness. Mouth/Throat: Lips: [place]. Mouth: Mucous membranes are moist. Pharynx: Oropharynx is clear. Posterior oropharyngeal erythema present. Eyes: General: Right eye: No discharge. Left [...] Thought content normal. Judgment: Judgment normal. Vitals: 12/31/21 1124 BP: 120/64 BP Location: Right arm Patient Position: Sitting Pulse: 85 Resp: 20 Temp: 36.5 ??C (97.7 ??F) TempSrc: Temporal SpO2: 96% Weight: 74.8 kg (165 lb) Height: 154.9 cm (5' 1 ) Assessment/Plan If you were prescribed any medication, take the medication until gone If you have a congested cough with thick mucus, you can use Mucinex DM Cough meds like Dayquil/Delsym can be used Sudafed for nasal congestion Flonase for sinuses Zyrtec/Claritin for drainage Drink plenty of fluids to stay hydrated Humidifier If you experience any shortness of breath or chest tightness- go to ER for further treatment If you are not getting any better- follow up w PCP in 5-7 days Avoid lung irritants Quit smoking Cold air can make symptoms worse Diagnoses and all orders for this visit: Bronchitis (Primary) - predniSONE (DELTASONE) 20 mg tablet; Take 1 tablet (20 mg) by mouth daily for 7 days - albuterol 2.5 mg /3 mL (0.083 %) nebulizer solution; Take 3 mL (2.5 mg total) by nebulization every 4 (four) hours as needed for wheezing or shortness of breath No results found for this or any [...] ask questions, questions answered. Roxana Maria NP documented in this encounter Plan of Treatment Upcoming Encounters Date Type Department Care Team (Late st Contact Info) Description 02/04/2025 9:30 AM CDT Hospital Encounter [address] [address] Vic Gaines, DO [address] [address] 02/04/2025 9:30 AM CDT - 02/04/2025 10:00 AM CDT Surgery [address] [address] Vic Gaines, DO [address] [address] COLONOSCOPY Scheduled Procedures Name Priority Associated Diagnoses Date/Ti me COLONOSCOPY Encounter for screening colonoscopy 02/04/2025 9:30 AM CDT documented as of this encounter Visit Diagnoses Diagnosis Bronchitis- Primary Bronchitis, not specified as acute or chronic Encounter for screening colonoscopy documented in this encounter Care Teams Babbitter Relationship Specialty [place] [address] [place] [address] PCP - General Family Medicine 09/23/21 11/22/23 Phoenix Loredo MD Consulting Physician Cardiology 01/04/19 [place] [address] [place] [address] Fisher Purse Seine Obstetrics and Gynecology 04/19/21 documented as of this encounter
--- OUTSIDE RECORDS SUMMARY | 2024-10-13 04:07 | XMS_ITS | Encounter Summary ---
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 Gender Identity Not on file Sexual Orientation Not on file documented as of this encounter Miscellaneous Notes * Telephone Encounter - Nila Dubois RT - 09/09/2022 10:08 AM CST No answer EL ENDSHAKE ADJUSTER documented in this encounter Plan of Treatment Upcoming Encounters Date Type Department Care Team (Late st Contact Info) Description 02/04/2025 9:30 AM CDT Hospital Encounter [address] [address] Vic Gaines, DO 3 [facility] [address] [place] [address] 02/04/2025 9:30 AM CDT - 02/04/2025 10:00 AM CDT Surgery [address] [address] Vic Gaines, DO 3 [facility] [address] [place] [address] COLONOSCOPY Scheduled Procedures Name Priority Associated Diagnoses Date/Ti me COLONOSCOPY Encounter for screening colonoscopy 02/04/2025 9:30 AM CDT documented as of this encounter Visit Diagnoses Not on filedocumented in this encounter Additional Health Concerns Infection Onset Date Last Indicated Resolved Time COVID: Recovered Comment:Added based on recent COVID infection. 08/24/2022 08/28/2022 11/22/2022 3:[address] documented as of this encounter Care Teams Mastic Man Relationship Specialty Start Date End Date Harper Myers DO [address] [place] [address] PCP - General Family Medicine 09/23/21 11/22/23 Phoenix Loredo MD Consulting Physician Cardiology 01/04/19 Aylin Lundy MD [address] [place] [address], [place] [address] Memory Care Program Director Obstetrics and Gynecology 04/19/21 documented as of this encounter
--- OUTSIDE RECORDS SUMMARY | 2024-10-13 04:07 | XMS_ITS | Encounter Summary ---
Author Organization [facility] Address [address] [place] [address] Care Team Providers Care Drafter (Cad) Electronic Name Role Phone Phoenix Loredo MD Unavailable [phone] Aylin Lundy MD Unavailable [phone] Harper Myers DO Primary Care Provider [phone] Reason for Visit * Reason Comments Rash Pt was seen her on for a rash on her face. Pt states that it has gotten worse and is burning Encounter Details Date Type Department Care Team (Late st Contact Info) Description 12/11/2021 11:15 AM INSPECTOR METAL FABRICATING Office Visit [facility] [address] [place] [address] [place] [address] Umu Lyon, DEENA [address] [id number] Impetigo (Primary Dx) Social History Tobacco Use [...] on file Legal Sex Female 8:44 AM INSPECTOR METAL [employer]ICATING Gender Identity Not on file Sexual Orientation Not on file documented as of this encounter Last Filed Vital Signs Vital Sign Reading Time Taken Comments Blood Pressure 124/72 12/11/2021 11:18 AM INSPECTOR METAL [employer]ICATING Pulse 75 12/11/2021 11:18 AM INSPECTOR METAL FABRICATING Temperature 36.8 ??C (98.2 ??F) 12/11/2021 11:[address] Respiratory Rate 14 12/11/2021 11:18 AM INSPECTOR METAL FABRICATING Oxygen Saturation 96% 12/11/2021 11:18 AM INSPECTOR METAL FABRICATING Inhaled Oxygen Concentration - - Weight 74.8 kg (165 lb) 12/11/2021 11:18 AM INSPECTOR METAL FABRICATING Height 154.9 cm (5' 1 ) 12/11/2021 11:18 AM INSPECTOR METAL FABRICATING Body Mass Index 31.18 12/11/2021 11:18 AM INSPECTOR METAL FABRICATING documented in this encounter Patient Instructions * Patient Instructions* Umu Lyon PA - 12/11/2021 11:15 AM INSPECTOR METAL FABRICATING Images from the original note were not included. Take the antibiotics as prescribed. Take it with food to help avoid stomach upset. Eat yogurt or take a probiotic while taking the antibiotic. You can take an antihistamine as directed for itching. Do not apply tape to your skin if it causes an allergic rash. Wash your face with antibacterial soap and keep it clean and dry. It is very important that you try to avoid touching your face. Wash your hands often, especially after touching your face. Follow-up with your primary care provider and roll icer. Patient Education Impetigo PRESCHOOL DIRECTOR: Impetigo is a skin infection caused by [...] ask them during your visits. ?? 2017 [employer] Information is for End User's use only and may not be sold, redistributed or otherwise used for commercial purposes. All illustrations and images included in CareNotes?? are the copyrighted property of [employer], [employer] or boarding pass. The above information is an home health aid only. It is not intended as medical advice for individual conditions or treatments. Talk to your doctor, nurse or pharmacist before following any medical regimen to see if it is safe and effective for you. ECTOR METAL FABRICATING ECTOR METAL FABRICATING ECTOR METAL FABRICATING documented in this encounter Ordered Prescriptions Prescription Sig Dispense Quantity Refills Last Filled Start Date End Date cephalexin (KEFLEX) 500 mg capsuleIndications :Impetigo Take 1 capsule (500 mg total) by mouth 4 (four) times a day for 10 days 40 capsule 12/11/2021 2 documented in this encounter Progress Notes * Umu Lyon PA - 12/11/2021 11:15 AM CST Images from the original note were not included. Subjective/Objective Patient ID: Mirtha Cherry is a 56 y.o. female. Chief Complaint Rash (Pt was seen her on for a rash on her face. Pt states that it has gotten worse and isburning) Patient is a 56-year-old female who presents with a rash on her face, onset approximately 9 days ago. Patient states that the rash albright. Patient was seen here for the rash 3 days ago, diagnosed withimpetigo, and prescribed mupirocin ointment. She states that she has been using the ointment as prescribed with no relief. She states that the rash has gotten worse and has spread throughout her face. She states that she put gauze with tape on her face a few days ago, notes that she is allergic totape, and states that she developed a rash to her forehead after that. She denies a fever, chills, difficulty breathing, difficulty swallowing, or any other symptoms. Review of Systems Constitutional: Negative for chills and fever. HENT: Negative for trouble swallowing. Respiratory: Negative for shortness of breath. Gastrointestinal: Negative. Musculoskeletal: Negative. Skin: Positive for rash. Physical Exam Constitutional: General: She is not in acute distress. Appearance: Normal appearance. She is obese. She is not ill-appearing. HENT: Head: Normocephalic. Mouth/Throat: Mouth: Mucous membranes are moist. Pharynx: Oropharynx is clear. No posterior oropharyngeal erythema. Eyes: General: Lids are normal. Extraocular Movements: Extraocular movements intact. Conjunctiva/sclera: Conjunctivae normal. Pupils: Pupils are equal, round, and reactive to light. Cardiovascular: Rate and Rhythm: Normal rate and regular rhythm. Heart sounds: Normal heart sounds. Pulmonary: Effort: Pulmonary effort is normal. Breath sounds: Normal breath sounds and air entry. Musculoskeletal: General: Normal range of motion. Cervical back: Normal range of motion and neck supple. Skin: General: Skin is warm and dry. Findings: Rash (Erythematous rash throughout the face and chin with an area of scabbing to the philtrum) present. Neurological: General: No focal deficit present. Mental Status: She is alert and oriented to person, place, and time. Mental status is at baseline. Psychiatric: Mood and Affect: Mood normal. Behavior: Behavior normal. Vitals: 12/11/21 1118 BP: 124/72 Pulse: 75 Resp: 14 Temp: 36.8 ??C (98.2 ??F) TempSrc: Oral SpO2: 96% Weight: 74.8 kg (165 lb) Height: 154.9 cm (5' 1 ) Assessment/Plan Given that patient has tried mupirocin ointment with no relief, will try a course of oral antibiotics. Instructed patient to follow-up with her roll icer. Take the antibiotics as prescribed. Take it with food to help avoid stomach upset. Eat yogurt or take a probiotic while taking the antibiotic. You can take an antihistamine as directed for itching. Do not apply tape to your skin if it causes an allergic rash. Wash your face with antibacterial soap and keep it clean and dry. It is very important that you try to avoid touching your face. Wash your hands often, especially after touching your face. Follow-up with your primary care provider and roll icer. Diagnoses and all orders for this visit: Impetigo (Primary) - cephalexin (KEFLEX) 500 mg capsule; Take 1 capsule (500 mg total) by mouth 4 (four) times a day for 10 days No results found for [...] ask questions, questions answered. DEENA Méndez PA ECTOR MET[employer]ICATING documented in this encounter Plan of Treatment Upcoming Encounters Date Type Department Care Team (Late st Contact Info) Description 02/04/2025 9:30 AM CDT Hospital Encounter [address] [address] Vic Gaines DO [address] [address] 02/04/2025 9:30 AM CDT - 02/04/2025 10:00 AM CDT Surgery [address] [address] Vic Gaines, DO [address] [address] COLONOSCOPY Scheduled Procedures Name Priority Associated Diagnoses Date/Ti me COLONOSCOPY Encounter for screening colonoscopy 02/04/2025 9:30 AM CDT documented as of this encounter Visit Diagnoses Diagnosis Impetigo- Primary Encounter for screening colonoscopy documented in this encounter Care Teams Drafter (Cad) Electronic Relationship Specialty [place] [address] [place] [address] PCP - General Family Medicine 09/23/21 11/22/23 Phoenix Loredo MD Consulting Physician Cardiology 01/04/19 [place] [address] [place] [address] Reproduction Order Processor Obstetrics and Gynecology 04/19/21 documented as of this encounter
--- OUTSIDE RECORDS SUMMARY | 2024-10-13 04:07 | XMS_ITS | Encounter Summary ---
Author Organization [facility] Address [address] [place] [address] Care Team Providers Care Assistant County Engineer Name Role Phone Phoenix Loredo MD Unavailable [phone] Aylin Lundy MD Unavailable [phone] Harper Myers DO Primary Care Provider [phone] Reason for Visit * Reason Comments Shortness of Breath Encounter Details Date Type Department Care Team (Late st Contact Info) Description 02/19/2023 5:35 AM CDT - 02/19/2023 7:56 AM CDT Emergency [facility] Emergency Department [address] [place] [address] Sung Quinteros MD [address] [facility] [place] [address] Abhinav Lorenz MD [address] [facility] [place] [address] COPD exacerbation (HCC) (Primary Dx) Discharge Disposition: Discharge to home [...] file 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 Gender Identity Not on file Sexual Orientation Not on file documented as of this encounter Last Filed Vital Signs Vital Sign Reading Time Taken Comments Blood Pressure 95/65 02/19/2023 7:45 AM CDT Pulse 90 02/19/2023 7:45 AM CDT Temperature 37.1 ??C (98.7 ??F) 02/19/2023 5:33 AM CD T Respiratory Rate 13 02/19/2023 7:45 AM CDT Oxygen Saturation 95% 02/19/2023 7:45 AM CDT Inhaled Oxygen Concentration - - Weight 68 kg (150 lb) 02/19/2023 5:33 AM CDT Height 154.9 cm (5' 1 ) 02/19/2023 5:33 AM CDT Body Mass Index 28.34 02/19/2023 5:33 AM CDT documented in this encounter Discharge Instructions * Discharge Instructions* Abhinav Lorenz MD - 02/19/2023 7:35 AM CDT Stop steroids. Take antibiotics as directed. Take thrush medicine as directed. Follow-up with your primary care doctor. Continue using nebulizer up to 6 times a day. * Attachments The following attachments cannot be sent through Care Everywhere. * COPD (Chronic Obstructive Pulmonary Disease) (Operations Chief) (Pakistani) documented in this encounter Medications at Time of Discharge predniSONE (DELTASONE) 20 mg tablet Take 2 tablets (40 mg) by mouth daily for 5 days 10 tablet 3 02/21/20 23 albuterol (PROVENTIL,VENTOLIN ) 2.5 mg /3 [...] every day 0 0 7 05/14/20 24 levoFLOXacin (LEVAQUIN) 500 mg tablet Take 1 tablet (500 mg total) by mouth daily 7 tablet 3 06/21/20 23 loratadine (CLARITIN) 10 mg tablet Take 1 tablet (10 mg total) by mouth daily 05/14/20 24 metoprolol XL (TOPROL-XL) 50 mg extended release tabletIndications:M ixed hyperlipidemia,Mult iple-type hyperlipidemia TAKE 1 TABLET(50 MG) BY MOUTH DAILY 90 tablet 3 3 11/30/19 24 multivitamin capsule Take 1 capsule by mouth daily 05/14/20 24 nystatin 100,000 unit/mL suspension Take 5 mL (500,000 Units total) by mouth 4 (four) times a day 60 mL 3 06/21/20 23 pimecrolimus (ELIDEL) 1 % creamIndications:Ec zema of both hands Apply topically 2 (two) times a day 30 g 1 9 06/21/20 23 SUMAtriptan (IMITREX) 50 mg tabletIndications:O ther migraine without status migrainosus, not intractable May repeat dose once in 2 hours if no relief. Do not exceed 2 doses in 24 hours. 9 tablet 3 2 06/21/20 23 documented as of this encounter Ordered Prescriptions Prescription Sig Dispense Quantity Refills Last Filled Start Date End Date nystatin 100,000 unit/mL suspension Take 5 mL (500,000 Units total) by mouth 4 (four) times a day 60 mL 02/19/2023 06/21/2023 levoFLOXacin (LEVAQUIN) 500 mg tablet Take 1 tablet (500 mg total) by mouth daily 7 tablet 02/19/2023 06/21/2023 documented in this encounter Discharge Disposition Disposition Code Departure Means Destination Comment s Discharge to home or self care documented in this encounter ED Notes * Sung Quinteros MD - 02/19/2023 5:54 AM CDT HPI Chief Complaint Patient presents with Shortness of Breath 49-year-old female, with history of PVCs, dyslipidemia, she has come to the emergency room complaining of shortness of breath. She states about 10 days ago she was diagnosed of pneumonia, and a chestx-ray showed multiple focal infiltrates, completed antibiotics about 3-4 days ago. She states with the antibiotic she was feeling better, but the last 2 nights she is been waking up with shortness for breath. Her O2 sat has been reading in the 90s and when sitting up up to 94%. The patient is an active smoker and recently diagnosed of COPD as well. She is been coughing greenish colored sputum, and previously she has some chills. The patient feels more short of breath on ambulation than her baseline. 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 All other systems reviewed and are negative. Physical Exam ED Triage Vitals [02/19/23 0533] Temp Pulse Resp BP SpO2 37.1 ??C (98.7 ??F) 91 17 134/88 97 % Temp src Heart Rate Source Patient Position BP Location FiO2 (%) Temporal -- -- -- -- Height Height Method Weight Weight Method 1.549 m (5' 1 ) Stated 68 kg (150 lb) Stated Physical Exam Vitals and nursing note reviewed. HENT: Head: Normocephalic. Eyes: Pupils: Pupils are equal, round, and reactive to light. Cardiovascular: Rate and Rhythm: Normal rate and regular rhythm. Pulmonary: Effort: Pulmonary effort is normal. Breath sounds: Normal breath sounds. Abdominal: Palpations: Abdomen is soft. Musculoskeletal: General: Normal range of motion. Cervical back: Normal range of motion. Skin: General: Skin is warm. Capillary Refill: Capillary refill takes less than 2 seconds. Neurological: General: No focal deficit present. Mental Status: She is alert and oriented to person, place, and time. [facility] Medical Decision Making Amount and/or Complexity of Data Reviewed Labs: ordered. Radiology: ordered. ECG/medicine tests: ordered. Final diagnoses: None Sung Quinteros MD 02/19/23 0556 * Nataly Gifford RN - 02/19/2023 5:31 AM CDT Pt states that she was diagnosed with pneumonia Monday. Pt states that yesterday and today she woke up and couldn't hardly breath. Pt states she feels a bunch of phlegm in her airway. Pt used inhaler at home. Pt had course of antibiotics and steroids. documented in this encounter Miscellaneous Notes * ED Re-evaluation Note - Abhinav Lorenz MD - 02/19/2023 6:15 AM CDT ED Re-evaluation Patient here for shortness of breath, recent pneumonia. History of COPD. She just finished a courseof cefdinir. Has some thrush. Will discharge on another course of antibiotics, nystatin. Patient feels like prednisone is making her worse. Will start prednisone. Labs Reviewed CBC WITH AUTO DIFFERENTIAL - Abnormal Result Value WBC 16.3 (*) Hgb 13.2 Hct 38.7 Plt 257 MPV 9.4 RBC 4.21 MCV 91.9 MCH 31.4 MCHC 34.1 RDW CV 12.9 RDW SD 43.2 NRBC abs 0.00 DIFFERENTIAL AUTO - Abnormal Neutrophil abs 11.7 (*) Imm gran abs 0.1 Lymphocyte abs 3.3 Monocyte abs 1.1 (*) Eosinophil abs 0.1 Basophil abs 0.1 Neutrophil pct 71.5 Imm gran pct 0.6 Lymphocyte pct 20.4 Monocyte pct 6.9 Eosinophil pct 0.3 Basophil pct 0.3 URINALYSIS AND REFLEX TO MICROSCOPIC AND CULTURE INFLUENZA A/B, RSV, AND COVID-19 PCR SEPSIS LACTATE WITH REFLEX Sepsis Lactate 1.2 PRO B-TYPE NATRIURETIC PEPTIDE COMPREHENSIVE METABOLIC PANEL D-DIMER, QUANTITATIVE PROTIME-INR TROPONIN T HIGH-SENSITIVITY XR Chest Pa Lateral 2 Vw (Results Pending) MEDICAL DECISION MAKING Number and Complexity of Problems Differential Diagnosis: [COPD, pneumonia, PE] MDM Data My EKG interpretation: [Sinus rhythm, rate 78, old septal MN] Discussed with: [Patient] Treatment and Disposition ED Course: [Improved] Shared decision making: Patient agreeable to discharge Code status: [Full] Abhinav Lorenz MD 02/19/23 0737 * ED Procedure Note - Abhinav Lorenz MD - 02/19/2023 6:14 AM CDTAssociated Order(s): ECG 12 lead Procedure ECG 12 lead Date/Time: 02/19/2023 6:14 AM Performed by: Abhinav Lorenz MD Authorized by: Sung Quinteros MD Rate: ECG rate: 78 ECG rate assessment: normal Rhythm: Rhythm: sinus rhythm Interpretation: Interpretation: abnormal Comments: Septal MN Abhinav Lorenz MD 02/19/23 0615 documented in this encounter Plan of Treatment Upcoming Encounters Date Type Department Care Team (Late st Contact Info) Description 02/04/2025 9:30 AM CDT Hospital Encounter [address] [address] Vic Gaines, DO [address] [address] 02/04/2025 9:30 AM CDT - 02/04/2025 10:00 AM CDT Surgery [address] [address] Vic Gaines, DO [address] [address] COLONOSCOPY Scheduled Procedures Name Priority Associated Diagnoses Date/Ti me COLONOSCOPY Encounter for screening colonoscopy 02/04/2025 9:30 AM CDT documented as of this encounter Procedures Procedure Name Priority Date/Time Associated Diagnosis Comments XR CHEST PA LATERAL 2 VIEWS ED 02/19/2023 6:22 AM CDT INFLUENZA A/B, RSV, AND COVID-19 PCR Routine 02/19/2023 6:11 AM CDT TROPONIN T HIGH-SENSITIVITY STAT 02/19/2023 6:07 AM CDT SEPSIS LACTATE WITH REFLEX STAT 02/19/2023 6:07 AM CDT EGFR STAT 02/19/2023 6:07 AM CDT DIFFERENTIAL AUTO STAT 02/19/2023 6:0 7 AM CDT PRO B-TYPE NATRIURETIC PEPTIDE STAT 02/19/2023 6:07 AM CDT CBC WITH AUTO DIFFERENTIAL STAT 02/19/2023 6:07 AM CDT PROTIME-INR STAT 02/19/2023 6:07 AM CDT D-DIMER, QUANTITATIVE STAT 02/19/2023 6:07 AM CDT COMPREHENSIVE METABOLIC PANEL STAT 02/19/2023 6:07 AM CDT ECG 12-LEAD STAT 02/19/2023 5:58 AM CDT documented in this encounter Results * XR Chest Pa Lateral 2 Vw (02/19/2023 6:22 AM CDT) Anatomical Region Laterality Modality Body, Chest N/A Computed Radiogr aphy 02/19/2023 6:39 AM CDT Narrative 02/19/2023 6:40 AM CDT EXAM DESCRIPTION: XR CHEST PA LATERAL 2 VIEWS REASON FOR STUDY: SOB, pulmonary edema suspected ?? Shortness of breath and productive cough. Pt recently diagnosed with pneumonia. Pt completed antibiotics 3-4 days ago and began to feel better but feels her shortness of breath is worse x 2 days. ??Hx COPD, asthma ?? Smoker ? TECHNIQUE: 2 ??radiographic view(s) of the chest. COMPARISON: 02/08/2023 FINDINGS: LUNGS: No focal opacity, pleural effusion, or pneumothorax. HEART/MEDIASTINUM: Cardiac silhouette normal in size. Mediastinal and hilar contours appear normal. BONES: No acute osseous abnormality. LINES/TUBES: None. ?? IMPRESSION: No acute cardiopulmonary abnormality. THIS IS AN ELECTRONICALLY VERIFIED FINAL REPORT 02/19/2023 6:40 AM - Electronically signed by ??Iam Argueta M.D. BB: DOMINGO D: ??02/19/2023 6:40 AM T: ??02/19/2023 6:40 AM Report ID: [id number] Reading Location: ??[id number] Procedure Note Iam Argueta MD PhD - 02/19/2023 EXAM DESCRIPTION: XR CHEST PA LATERAL 2 VIEWS REASON FOR STUDY: SOB, pulmonary edema suspected Shortness of breath and productive cough. Pt recently diagnosed with pneumonia. Pt completed antibiotics 3-4 days ago and began to feel betterbut feels her shortness of breath is worse x 2 days. Hx COPD, asthma Smoker TECHNIQUE: 2 radiographic view(s) of the chest. COMPARISON: 02/08/2023 FINDINGS: LUNGS: No focal opacity, pleural effusion, or pneumothorax. HEART/MEDIASTINUM: Cardiac silhouette normal in size. Mediastinal andhilar contours appear normal. BONES: No acute osseous abnormality. LINES/TUBES: None. IMPRESSION: No acute cardiopulmonary abnormality. THIS IS AN ELECTRONICALLY VERIFIED FINAL REPORT 02/19/2023 6:40 AM - Electronically signed by Iam Argueta M.D. BB: DOMINGO Report ID: [id number] Reading Location: [id number] Sung Quinteros MD IMG XR PROCEDURES Final Resu lt * Influenza A/B, RSV, and COVID-19 PCR Nasopharyngeal (02/19/2023 6:11 AM CDT) Pathologist [facility] COVID-19 RNA Negative Negative [facility] ([place]) Influenza A RNA Negative Negative [facility]) Influenza B RNA Negative Negative [facility] RSV RNA Negative Negative [facility] ([place]) Comment: Interpretive data: This test is performed using the [employer] Xpress CoV-2/Flu/RSV plus assay. This is a multiplex, real-time reverse transcriptase PCR assay intended for the qualitative detection of nucleic acid from SARS-CoV-2, influenza A, influenza B, and respiratory syncytial virus. This assay has been reviewed by the FDA for Emergency Use Authorization (EUA). The performance characteristics have been verified by the performing laboratory. Results must be considered in the clinical context, and a negative result does not rule out infection. Interpretive Data last revised 2021. Nasopharyngeal 02/19/2023 6: 11 AM CDT 02/19/2023 6:18 AM CDT Narrative [facility] ([place]) - 02/19/2023 7:27 AM CDT Is the Patient experiencing symptoms consistent with COVID?->Yes Date of Symptom Onset->02/18/23 Reason for testing?->Symptomatic Abhinav Lorenz MD LAB MICROBIOLOGY - GENERAL O RDERABLES Final Result [facility] ([place]) 1 [facility] Department [place] [address] * eGFR (02/19/2023 6:07 AM CDT) eGFR 83 mL/min/1. 73 m2 [facility] ([place]) Comment: Interpretive Data Reference Interval Normal ?>/= [...] interpretive data was last reviewed 2021. Blood 02/19/2023 6:07 AM CDT 02/19/2023 6:10 AM CDT Sung Quinteros MD LAB BLOOD ORDERABLES Final R esult [facility] ([place]) 1 [facility] Department of Laboratories [place], [place] [id number] * (ABNORMAL) Differential, auto (02/19/2023 6:07 AM CDT) Neutrophil abs 11.7(H) 1.7 - 6.5 K/cumm [facility] ([place]) Imm gran abs 0.1 0.0 - 0.1 K/cumm [facility] ([place]) Lymphocyte abs 3.3 0.8 - 3.3 K/cumm [facility] ([place]) Monocyte abs 1.1(H) 0.2 - 0.8 K/cumm [facility] ([place]) Eosinophil abs 0.1 0.0 - 0.5 K/cumm [facility] ([place]) Basophil abs 0.1 0.0 - 0.1 K/cumm [facility] ([place]) Neutrophil pct 71.5 % [facility] ([place]) Comment: Interpretive Data Percent cell count reference ranges are not reported, since discordance with absolute values may lead to misinterpretation of CBC data. Current Interpretive Data was last revised on 2018. Imm gran pct 0.6 % [facility] ([place]) Comment: Interpretive Data Percent cell count reference ranges are not reported, since discordance with absolute values may lead to misinterpretation of CBC data. Current Interpretive Data was last revised on 2018. Lymphocyte pct 20.4 % [facility] ([place]) Comment: Interpretive Data Percent cell count reference ranges are not reported, since discordance with absolute values may lead to misinterpretation of CBC data. Current Interpretive Data was last revised on 2018. Monocyte pct 6.9 % [facility] Comment: Interpretive Data Percent cell count reference ranges are not reported, since discordance with absolute values may lead to misinterpretation of CBC data. Current Interpretive Data was last revised on 2018. Eosinophil pct 0.3 % [facility] ([place]) Comment: Interpretive [...] Data was last revised on 2018. Blood 02/19/2023 6:07 AM CDT 02/19/2023 6:10 AM CDT Sung Quinteros MD LAB BLOOD ORDERABLES Final R esult [facility] Department [place] [address] * Troponin T high-sensitivity (02/19/2023 6:07 AM CDT) Trop T hs 7 <=14 ng/L [facility] ([place]) Comment: Interpretive Data For further hscTnT resources including the diagnostic algorithm and an aid in interpretation, copy and paste this link: https://nrl.testcatalog.org/show/hsTrop Current Interpretive Data last revised 2020. Blood 02/19/2023 6:07 AM CDT 02/19/2023 6:10 AM CDT Sung uQinteros MD LAB BLOOD ORDERABLES Final R esult Performing Organization Address City/[facility] Co de Phone Number [facility] ([place]) [address] [facility] [place] [address] * Protime-INR (02/19/2023 6:07 AM CDT) PT 10.6 9.2 - 13.5 sec [facility] ([place]) INR 1.0 0.9 - 1.2 [facility]) Comment: Interpretive data Oral anticoagulant therapeutic ranges: Venous thromboembolism prophylaxis or treatment: 2.0-3.0 CARDIOLOGY Standard range: 2.0-3.0 High-intensity range: 2.5-3.5 Refer to indication-specific guidelines for appropriate target ranges for prosthetic heart valve replacement. Current interpretive data was last revised on 2019. Blood 02/19/2023 6:07 AM CDT 02/19/2023 6:10 AM CDT Sung Quinteros MD LAB BLOOD ORDERABLES Final R esult Performing Organization Address City/[facility] Co de Phone Number [facility] [address] [facility] [place] [address] * Sepsis Lactate w/ Reflex (02/19/2023 6:07 AM CDT) Sepsis Lactate 1.2 0.7 - 2.0 mmol/L [facility] ([place]) Blood 02/19/2023 6:07 AM CDT 02/19/2023 6:10 AM CDT Sung Quinteros MD LAB BLOOD ORDERABLES Final R esult Performing Organization Address City/[facility] Co de Phone Number [facility] 1 [facility] Department [place] [address] * D-dimer, quantitative (02/19/2023 6:07 AM CDT) D-Dimer 493 <=499 ng/mL FEU [facility] ([place]) Comment: Interpretive data FDA approved the [...] data was last revised on 2019. Blood 02/19/2023 6:07 AM CDT 02/19/2023 6:10 AM CDT Sung Quinteros MD LAB BLOOD ORDERABLES Final R esult Performing Organization Address City/[facility]/ZIP Co de Phone Number [facility] ([place]) 1 [facility] Department [place] [address] * (ABNORMAL) Comprehensive metabolic panel (02/19/2023 6:07 AM CDT) Sodium 140 135 - 145 mmol/L [facility] ([place]) Potassium, pl 3.6 3.3 - 4.9 mmol/L [facility] ([place]) Chloride 105 97 - 110 mmol/L [facility]) CO2 23 22 - 32 mmol/L [facility]) Anion gap 11 2 - 15 mmol/L [facility] ([place]) BUN 13 8 - 25 mg/dL [facility] ([place]) Creatinine 0.82 0.60 - 1.10 mg/dL [facility] ([place]) Glucose 110 70 - 199 mg/dL [facility] ([place]) [...] interpretive data was last revised 2022. Calcium 9.0 8.5 - 10.3 mg/dL [facility] ([place]) Bilirubin, total <0.2 0.1 - 1.2 mg/dL [facility] ([place]) Protein, pl 6.3(L) 6.5 - 8.5 g/dL [facility] ([place]) Albumin 3.8 3.5 - 5.0 g/dL [facility] ([place]) Alk phos 93 40 - 130 Units/L [facility] ([place]) ALT 32 7 - 45 Units/L [facility] ([place]) AST 21 10 - 45 Units/L [facility] ([place]) Blood 02/19/2023 6:07 AM CDT 02/19/2023 6:10 AM CDT us Sung Quinteros MD LAB BLOOD ORDERABLES Final R esult [facility] ([place]) 1 [facility] Department [place] [address] * (ABNORMAL) CBC with auto differential (02/19/2023 6:07 AM CDT) WBC 16.3(H) 3.8 - 9.9 K/cumm [facility] ([place]) Hgb 13.2 11.9 - 15.5 g/dL [facility] ([place]) Hct 38.7 35.6 - 45.5 % [facility] ([place]) Plt 257 150 - 400 K/cumm [facility] ([place]) MPV 9.4 9.1 - 12.3 fL [facility] ([place]) RBC 4.21 3.90 - 5.20 M/cumm [facility] ([place]) MCV 91.9 81.3 - 96.4 fL [facility] ([place]) MCH 31.4 27.1 - 33.3 pg [facility] ([place]) MCHC 34.1 32.3 - 35.7 g/dL [facility] ([place]) RDW CV 12.9 11.1 - 14.9 % [facility] ([place]) RDW SD 43.2 35.7 - 48.1 fL [facility] ([place]) NRBC abs 0.00 0.00 - 0.01 K/cumm [facility] ([place]) Blood 02/19/2023 6:07 AM CDT 02/19/2023 6:10 AM CDT Sung Quinteros MD LAB BLOOD ORDERABLES Final R esult [facility] ([place]) 1 [facility] Department of Laboratories [place], [place] [id number] * (ABNORMAL) Pro B-type natriuretic peptide (02/19/2023 6:07 AM CDT) NT-proBNP 407(H) <=300 pg/mL [facility] ([place]) Comment: Interpretive Comments: A. Dyspnea in Acute [...] Interpretive Data Last Revised Date: 2018. Blood 02/19/2023 6:07 AM CDT 02/19/2023 6:10 AM CDT us Sung Quinteros MD LAB BLOOD ORDERABLES Final R esult Performing Organization Address City/State/[facility] Co de Phone Number [facility] [place]) [address] [facility] [place] [address] * ECG 12 lead (02/19/2023 5:58 AM CDT) 02/19/2023 5:58 AM CDT Narrative [facility] - 02/20/2023 10:33 AM CDT Vent Rate: 78 bpm RR Interval: 761 msec [place] Interval: 158 msec QRS Duration: 80 msec QT Interval: 365 msec QTC Interval: 399 msec P-R-T Covel: 79 - 55 - 76 degrees SINUS RHYTHM POSSIBLE LEFT ATRIAL ENLARGEMENT ??[-0.1mV P-WAVE IN V1/V2] SEPTAL MYOCARDIAL INFARCTION , OF INDETERMINATE AGE [40+ ms Q WAVE IN V1/V2] ABNORMAL ECG Compared to prior EKG, PVCs are no longer present Electronically Signed By: Phoenix Loredo MD Sung Quinteros MD ECG ORDERABLES Final Result [facility] documented in this encounter Visit Diagnoses Diagnosis COPD exacerbation (HCC)- Primary Obstructive chronic bronchitis with exacerbation Encounter for screening colonoscopy documented in this encounter Administered Medications Inactive Administered Medications - up to 3 most recent administrations Medication Order MAR Action Action Date Dose Rate Site albuterol HFA (PROVENTIL HFA,VENTOLIN HFA,PROAIR HFA) 90 mcg/actuation inhaler 4 puff 4 puff, inhalation, Once (respiratory manager), On 02/19/23 at 0631, For 1 dose Given 02/19/2023 6:41 AM CDT 4 puffs documented in this encounter Active and Recently Administered Medications Times are shown in CDT. Scheduled Medication Order 02/17/2023 02/18/2023 02/19/2023 albuterol HFA (PROVENTIL HFA,VENTOLIN HFA,PROAIR HFA) 90 mcg/actuation inhaler 4 puff (COMPLETED) 4 puff, inhalation, Once (respiratory manager), On 02/19/23 at 0631, For 1 dose 0641 (Given - Provid er: Tsering Montanez, [employer]HEAD G[employer] DOOR HANGER) documented in this encounter Orders Medications Ordered That Darrel ht Not Have Been Administered Count Last Ordered Date First Ordered Date albuterol HFA (PROVENTIL HFA ,VENTOLIN HFA,PROAIR HFA) 90 mcg/actuation inhaler 4 puff 1 02/19/2023 documented in this encounter Additional Health Concerns Infection Onset Date Last Indicated Resolved Time COVID: Suspected 02/19/2023 02/19/2023 02/19/2023 7:28 AM CDT documented as of this encounter Care Teams Assistant County Engineer Relationship Specialty [place] [address] [place] [address] PCP - General Family Medicine 09/23/21 11/22/23 Phoenix Loredo MD Consulting Physician Cardiology 01/04/19 [place] [address] [place] [address] Director Patient Financial Services Obstetrics and Gynecology 04/19/21 documented as of this encounter
--- OUTSIDE RECORDS SUMMARY | 2024-10-13 04:07 | XMS_ITS | Encounter Summary ---
Author Organization [facility] Address [address] [place] [address] Care Team Providers Care Research Associate Policy Name Role Phone Phoenix Loredo MD Unavailable [phone] Aylin Lundy MD Unavailable [phone] Harper Myers DO Primary Care Provider [phone] Reason for Referral * Diagnostic Imaging (Routine) - Closed Specialty Diagnoses / Procedures Referred By Contac t Referred To Contact Diagnoses Viral URI with cough Procedures XR Chest Pa Lateral 2 Views Lokesh Lyon PA Phone: tel: [address] [address] Referral ID Status Reason Start Date Expiration Date Visits Re quested Visits Authorized [id number] Closed 02/08/2023 03/09/2024 1 1 Reason for Visit * Reason Comments URI Fatigue,fever,L ear pain,sinus pressure,productive cough,SOB,body aches and headache x 1 day Encounter Details Date Type Department Care Team (Late st Contact Info) Description 02/08/2023 2:00 PM CDT Office Visit [facility] [address] [place] [address] [place] [address] Lokesh Lyon PA [address] [facility] [place] [place] [address] Community acquired pneumonia (Primary Dx) Social History Tobacco Use Types [...] on file 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 Gender Identity Not on file Sexual Orientation Not on file documented as of this encounter Last Filed Vital Signs Vital Sign Reading Time Taken Comments Blood Pressure 110/70 02/08/2023 1:57 PM CDT Pulse 98 02/08/2023 1:57 PM CDT Temperature 37.9 ??C (100.3 ??F) 02/08/2023 1:57 PM C DT Respiratory Rate 18 02/08/2023 1:57 PM CDT Oxygen Saturation 96% 02/08/2023 1:57 PM CDT Inhaled Oxygen Concentration - - Weight 68 kg (150 lb) 02/08/2023 1:57 PM CDT Height - - Body Mass Index 28.34 12/26/2022 1:39 PM CDT documented in this encounter Patient Instructions * Patient Instructions* Lokesh Lyon PA - 02/08/2023 2:00 PM CDT You can take Mucinex as directed for cough and congestion, as well as use Flonase, a Neti pot, and a humidifier as directed for congestion. Make sure to drink plenty of fluids to help thin your secretions. Follow up with your primary care provider. Go to the ER if you develop chest pain, any increased difficulty breathing, or any other concerningsymptoms. documented in this encounter Ordered Prescriptions Prescription Sig Dispense Quantity Refills Last Filled Start Date End Date cefdinir (OMNICEF) 300 mg capsuleIndications :Community acquired pneumonia Take 1 capsule (300 mg total) by mouth 2 (two) times a day for 7 days 14 capsule 02/08/2023 3 documented in this encounter Progress Notes * Lokesh Lyon PA - 02/08/2023 2:00 PM CDT Images from the original note were not included. Subjective/Objective Patient ID: Mirtha Cherry is a 57 y.o. female. Chief Complaint URI (Fatigue,fever,L ear pain,sinus pressure,productive cough,SOB,body aches and headache x 1 day) Patient is a 57-year-old female who presents for evaluation of fatigue, fever, left ear pain, congestion, productive cough, shortness of breath, body aches, headache, onset yesterday evening She denies chest pain, lower extremity edema, or any other symptoms. Review of Systems Constitutional: Positive for fatigue and fever. HENT: Positive for congestion and ear pain. Respiratory: Positive for cough and shortness of breath. Cardiovascular: Negative for chest pain and leg swelling. Musculoskeletal: Positive for myalgias. Neurological: Positive for headaches. Physical Exam Constitutional: General: She is not in acute distress. Appearance: Normal appearance. She is not ill-appearing or toxic-appearing. HENT: Head: Normocephalic. Right Ear: Tympanic membrane, ear canal and external ear normal. Left Ear: Tympanic membrane, ear canal and external ear normal. Eyes: General: Lids are normal. Extraocular Movements: Extraocular movements intact. Conjunctiva/sclera: Conjunctivae normal. Pupils: Pupils are equal, round, and reactive to light. Cardiovascular: Rate and Rhythm: Normal rate and regular rhythm. Heart sounds: Normal heart sounds. Pulmonary: Effort: Pulmonary effort is normal. No respiratory distress. Breath sounds: Normal breath sounds and air entry. No stridor. No wheezing, rhonchi or rales. Musculoskeletal: General: Normal range of motion. Cervical back: Normal range of motion and neck supple. Skin: General: Skin is warm and dry. Neurological: General: No focal deficit present. Mental Status: She is alert and oriented to person, place, and time. Mental status is at baseline. Psychiatric: Mood and Affect: Mood normal. Behavior: Behavior normal. Vitals: 02/08/23 1357 BP: 110/70 Pulse: 98 Resp: 18 Temp: 37.9 ??C (100.3 ??F) SpO2: 96% Weight: 68 kg (150 lb) Assessment/Plan Discussed with patient that her test results may be falsely negative given that her symptoms began yesterday evening. Discussed PCR testing with patient, which she declined. You can take Mucinex as directed for cough and congestion, as well as use Flonase, a Neti pot, and a humidifier as directed for congestion. Make sure to drink plenty of fluids to help thin your secretions. Follow up with your primary care provider. Go to the ER if you develop chest pain, any increased difficulty breathing, or any other concerningsymptoms. Diagnoses and all orders for this visit: Viral URI with cough (Primary) - POC Influenza A/B, COVID-19 antigen - XR Chest Pa Lateral 2 Views; Future Recent Results (from the past 4 hour(s)) POC Influenza A/B, COVID-19 antigen Collection Time: 02/08/23 2:18 PM Result Value Ref Range Influenza A Ag, POC Negative Negative Influenza B Ag, POC Negative Negative COVID-19 Ag POC Presumptive Negative Presumptive Negative, Invalid Patient Education: Disposition Treatment [...] ask questions, questions answered. DEENA Méndez PA documented in this encounter Miscellaneous Notes * Addendum Note - Lokesh Lyon PA - 02/08/2023 2:00 PM CDT Addended by: LOKESH LYON on: 02/08/2023 03:47 PM Modules accepted: Orders documented in this encounter Plan of Treatment Upcoming Encounters Date Type Department Care Team (Late st Contact Info) Description 02/04/2025 9:30 AM CDT Hospital Encounter [address] [address] Vic Gaines, DO [address] [place] [address] 02/04/2025 9:30 AM CDT - 02/04/2025 10:00 AM CDT Surgery [address] [address] Vic Gaines, DO [address] [place] [address] [place] [address] COLONOSCOPY Scheduled Procedures Name Priority Associated Diagnoses Date/Ti me COLONOSCOPY Encounter for screening colonoscopy 02/04/2025 9:30 AM CDT documented as of this encounter Procedures Procedure Name Priority Date/Time Associated Diagnosis Comments POC INFLUENZA A/B, COVID-19 ANTIGEN Routine 02/08/2023 2:18 PM CDT Community acquired pneumonia documented in this encounter Results * XR [...] PM T: ??02/08/2023 3:28 PM Report ID: [id number] Reading Location: ??[id number] Procedure Note Joaquina Colmenares, DO - 02/08/2023 EXAM DESCRIPTION: XR CHEST [...] Joaquina Colmenares D.O. PS: PS Report ID: [id number] Reading Location: [id number] Lokesh SHAFFER IMG XR PROCEDURES F inal Result * POC Influenza A/B, COVID-19 antigen (02/08/2023 2:18 PM CDT) Influenza A Ag, POC Negative Negative [facility] Influenza B Ag, POC Negative Negative [facility] COVID-19 Ag POC Presumptive Negative Presumptive Negative, Invalid [facility] Nasal 02/08/2023 2:18 PM CDT Lokesh SHAFFER POINT OF CARE TEST ORDERABLES Final Result [facility] [address] [place] [address] [place] [address] documented in this encounter Visit Diagnoses Diagnosis Community acquired pneumonia- Primary Pneumonia, organism unspecified Viral URI with cough Encounter for screening colonoscopy documented in this encounter Additional Health Concerns Infection Onset Date Last Indicated Resolved Time COVID: Suspected 02/08/2023 02/08/2023 02/08/2023 2:19 PM CDT documented as of this encounter Care Teams Research Associate Policy Relationship Specialty [place] [address] [place] [address] PCP - General Family Medicine 09/23/21 11/22/23 Phoenix Loredo MD Consulting Physician Cardiology 01/04/19 [place] [address] [place] [address] Client Engagement Specialist Obstetrics and Gynecology 04/19/21 documented as of this encounter
--- OUTSIDE RECORDS SUMMARY | 2024-10-13 04:07 | XMS_ITS | Encounter Summary ---
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 If s/s persist, patient should follow up withPCP. BLE LOCATER * Result Encounter Note - Emily Park MA - 09/27/2022 11:59 PM TROUBLE LOCATER Spoke to pt in regards to normal cx results. Informed pt if sym persist to follow up w/ PCP. BLE LOCATER documented in this encounter Plan of Treatment Upcoming Encounters Date Type Department Care Team (Late st Contact Info) Description 02/04/2025 9:30 AM CDT Hospital Encounter [address] [address] Vic Gaines, DO [address] [place] [address] [place] [address] 02/04/2025 9:30 AM CDT - 02/04/2025 10:00 AM CDT Surgery [address] [address] Vic Gaines, DO [address] [place] [address] [place] [address] COLONOSCOPY Scheduled Procedures Name Priority Associated Diagnoses Date/Ti me COLONOSCOPY Encounter for screening colonoscopy 02/04/2025 9:30 AM CDT documented as of this encounter Procedures Procedure Name Priority Date/Time Associated Diagnosis Comments URINE CULTURE Routine 09/27/2022 7:16 PM TROUBLE LOCATER Hematuria, unspecified type documented in this encounter Results * Urine culture Urine, clean voided (09/27/2022 7:16 PM TROUBLE LOCATER) Report Final Report: Less than 100,000 colonies/mL (clinically insignificant growth based on current clinical standards) JAY Comment:Testing performed by : [facility], [address] [place]., [address] Organism (CLINICALLY INSIGNIFICANT GROWTH [facility] Urine, clean voided 09/27/2022 7:16 PM TROUBLE LOCATER 09/28/2022 5:35 AM TROUBLE LOCATER Narrative [facility] - 09/29/2022 8:03 AM TROUBLE LOCATER Testing performed by [facility] Microbiology Laboratory ([phone]) Roxana Maria AMBULATORY SERVICES REPRESENTATIVE LAB MICROBIOLOGY - [facility] ORDERABLES Final Result [facility] [address] Department [place] [address] documented in this encounter Visit Diagnoses Diagnosis Hematuria, unspecified type Encounter for screening colonoscopy documented in this encounter Additional Health Concerns Infection Onset Date Last Indicated Resolved Time COVID: Recovered Comment:Added based on recent COVID infection. 08/24/2022 08/28/2022 11/22/2022 3:[address] documented as of this encounter Care Teams Operating Room Scheduler Relationship Specialty [place] [address] [place] [address] PCP - General Family Medicine 09/23/21 11/22/23 Phoenix Loredo MD Consulting Physician Cardiology 01/04/19 [place] [address] [place] [address] Assessment Nurse Obstetrics and Gynecology 04/19/21 documented as of this encounter
--- OUTSIDE RECORDS SUMMARY | 2024-10-13 04:07 | XMS_ITS | Encounter Summary ---
Author Organization [facility] Address [address] [place] [address] Care Team Providers Care Home Day Care Provider Name Role Phone Phoenix Loredo MD Unavailable [phone] Aylin Lundy MD Unavailable [phone] Harper Myers DO Primary Care Provider [phone] Encounter Details Date Type Department Care Team (Late st Contact Info) Description 02/21/2023 Telephone [facility] Pulmonary at [address] [place] [address] Urmila Nye LPN Social History Tobacco Use Types Packs/Day Years [...] on file 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 She had had pneumonia and was given an antibiotic nd they told her the pneumonia was cleared up. Pt said her O2 is dropping to 91 or 92 at night and her heart rate is in the 70s. When she was on the phone with me her O2 was 95 and her HR was 103. Pt says she is SOB and starts panicking when her O2 drops to the low 90s. She is ready to just go to the hospital. She wants to know if maybe there is a heart blockage the EKG didn't order picker/assembler on. She wasn't sure if she shouldcall her heart doctor or you about this issues. Please advise. * Telephone Encounter - Urmila Nye LPN - 02/21/2023 3:30 PM CDT Called and informed pt that per Dr. Jarrett she should try using half the vial of the albuterol in her nebulizer to see if that helps with the jitteriness. And she can taper down on the nicotine patch if she would like. She can get it over the counter in 21mg, 14,g, or 7mg. Pt verbalized understanding. * Telephone Encounter - Urmila Nye LPN - 02/21/2023 9:41 AM CDT Patient called. She was seen in the hospital this weekend and they told her to continue with her nebulizer. She says the albuterol makes her feel jittery and she wondered if there was another medication that was similar to albuterol that would not make her feel as jittery. Patient also asked if she could do the step 2 nicotine patch rather than step 1. She has not smokedfor 3 days and she feels the step 1 is too much. Please advise. documented in this encounter Plan of Treatment Upcoming Encounters Date Type Department Care Team (Late st Contact Info) Description 02/04/2025 9:30 AM CDT Hospital Encounter [address] [address] Vic Gaines, DO [address] [place] [address] 02/04/2025 9:30 AM CDT - 02/04/2025 10:00 AM CDT Surgery [address] [address] Vic Gaines, DO [address] [place] [address] COLONOSCOPY Scheduled Procedures Name Priority Associated Diagnoses Date/Ti me COLONOSCOPY Encounter for screening colonoscopy 02/04/2025 9:30 AM CDT documented as of this encounter Visit Diagnoses Not on filedocumented in this encounter Care Teams Home Day Care Provider Relationship Specialty Start Date End Date Louis Harper [place] [address] [address] [place] [address] PCP - General Family Medicine 09/23/21 11/22/23 Phoenix Loredo MD Consulting Physician Cardiology 01/04/19 [place] [address] [place] [address] Lsw Obstetrics and Gynecology 04/19/21 documented as of this encounter
--- OUTSIDE RECORDS SUMMARY | 2024-10-13 04:07 | XMS_ITS | Encounter Summary ---
Author Organization [facility] Address [address] [place] [address] Care Team Providers Care Manager Fraud Name Role Phone Phoenix Loredo MD Unavailable [phone] Aylin Lundy MD Unavailable Harper Myers DO Primary Care Provider [phone] Encounter Details Date Type Department Care Team (Late st Contact Info) Description 10/11/2022 Orders Only [facility] Pulmonary at [address] [place] [address] Maggie Kauffman LPN Social History Tobacco Use Types Packs/Day [...] on file 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 Gender Identity Not on file Sexual Orientation Not on file documented as of this encounter Ordered Prescriptions Prescription Sig Dispense Quantity Refills Last Filled Start Date End Date glycopyrrolate-for moteroL (Bevespi Aerosphere) 9-4.8 mcg inhaler Inhale 2 puffs 2 (two) times a day 10.7 g 3 10/11/2022 12/19/2022 documented in this encounter Plan of Treatment Upcoming Encounters Date Type Department Care Team (Late st Contact Info) Description 02/04/2025 9:30 AM CDT Hospital Encounter [address] [address] Vic Gaines, DO [address] [facility] [address] [place] [address] 02/04/2025 9:30 AM CDT - 02/04/2025 10:00 AM CDT Surgery [address] [address] Vic Gaines, DO [address] [facility] [address] [place] [address] COLONOSCOPY Scheduled Procedures Name Priority Associated Diagnoses Date/Ti me COLONOSCOPY Encounter for screening colonoscopy 02/04/2025 9:30 AM CDT documented as of this encounter Visit Diagnoses Not on filedocumented in this encounter Additional Health Concerns Infection Onset Date Last Indicated Resolved Time COVID: Recovered Comment:Added based on recent COVID infection. 08/24/2022 08/28/2022 11/22/2022 3:[address] documented as of this encounter Care Teams Manager Fraud Relationship Specialty Start [place] [address] [place] [address] PCP - General Family Medicine 09/23/21 11/22/23 Phoenix Loredo MD Consulting Physician Cardiology 01/04/19 [place] [address] [place] [address] Rheologist Obstetrics and Gynecology 04/19/21 documented as of this encounter
--- OUTSIDE RECORDS SUMMARY | 2024-10-13 04:07 | XMS_ITS | Encounter Summary ---
Author Organization [facility] Address [address] [facility] [address] [place] [address] Care Team Providers Care Barrel Tester And Drainer Name Role Phone Phoenix Loredo MD Unavailable [phone] Aylin Lundy MD Unavailable [phone] Harper Myers DO Primary Care Provider [phone] Reason for Visit * Reason Comments 3 mo f/u Encounter Details Date Type Department Care Team (Late st Contact Info) Description 12/19/2022 9:00 AM CDT Office Visit [facility] Pulmonary at [address] [place] [address] Ho Jarrett MD [address] [place] [address] [address] [place] [address] Centrilobular emphysema (CMS/HCC) (HCC) (Primary Dx); Nicotine dependence, cigarettes, uncomplicated; Chronic rhinitis Social History Tobacco Use Types Packs/Day Years [...] on file 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 Gender Identity Not on file Sexual Orientation Not on file documented as of this encounter Last Filed Vital Signs Vital Sign Reading Time Taken Comments Blood Pressure 130/70 12/19/2022 8:58 AM CDT Pulse 74 12/19/2022 8:58 AM CDT Temperature 36.4 ??C (97.5 ??F) 12/19/2022 8:58 AM CD T Respiratory Rate 16 12/19/2022 8:58 AM CDT Oxygen Saturation 99% 12/19/2022 8:58 AM CDT Inhaled Oxygen Concentration - - Weight 68.9 kg (151 lb 14.4 oz) 023 8:58 AM CDT Height 154.9 cm (5' 1 ) 12/19/2022 8:58 AM CDT Body Mass Index 28.7 12/19/2022 8:58 AM CDT documented in this encounter Ordered Prescriptions Prescription Sig Dispense Quantity Refills Last Filled Start Date End Date glycopyrrolate-for moteroL (Bevespi Aerosphere) 9-4.8 mcg inhaler Inhale 2 puffs 2 (two) times a day 32.1 g 3 12/19/2022 02/28/2023 documented in this encounter Progress Notes * Ho Jarrett MD - 12/19/2022 9:00 AM CDT Images from the original note were not included. PULMONARY CLINIC NOTE Visit Date: 12/19/2022 Chief Complaint: Presents today for Shortness of breath HPI: Mirtha Cherry is a 57 y.o. female w/ PMH of bilateral mastectomy in 2018 for abnormal mammogram/MRIand found to have precancerous lesions (no radiation), peripheral arterial disease status post stenting, esophageal stricture who presents on 12/19/2022 for evaluation of dyspnea on exertion. The patient was first seen in October of 2021. At that time she reports she was diagnosed with asthma 20 years ago. She had not been on any regular inhaler therapy. She has had relatively stable dyspnea but reports it may be increased over the past several years. She underwent pulmonary function testing which was indicative of air trapping and impaired diffusion. She was ultimately started on Bevespi Interval History: Cough has nearly resolved. Her only lingering symptom is some morning cough with a small amount of drainage in the back of her throat. Started taking flonase for the last week or so. She does not report any limiting dyspnea. Doing well with bevespi, not using rescue inhaler. Stillsmoking about 0.5 ppd. 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 OBJECTIVE: Physical Exam: Vitals: 12/19/22 0858 BP: 130/70 BP Location: Left arm Patient Position: Sitting Pulse: 74 Resp: 16 Temp: 36.4 ??C (97.5 ??F) TempSrc: Temporal SpO2: 99% Weight: 68.9 kg (151 lb 14.4 oz) Height: 154.9 cm (5' 1 ) [...] COPD/emphysema - continue Bevespi twice daily - albuterol as needed - she is not having exacerbations 2. Cigarette nicotine dependence without complication - she continues to smoke, cessation was discussed for greater than 10 minutes - she is currently contemplative - continue annual low-dose CT scan 3. Chronic rhinitis - continue trial of Flonase and Claritin Ho Jarrett MD There may be syntax/grammatical errors in this note due to the use of voice recognition software. documented in this encounter Plan of Treatment Upcoming Encounters Date Type Department Care Team (Late st Contact Info) Description 02/04/2025 9:30 AM CDT Hospital Encounter [facility] [address] [place] [address] Vic Gaines, DO [address] [address] 02/04/2025 9:30 AM CDT - 02/04/2025 10:00 AM CDT Surgery [address] [address] Vic Gaines, DO 3 [facility] [address] [place] [address] COLONOSCOPY Scheduled Procedures Name Priority Associated Diagnoses Date/Ti me COLONOSCOPY Encounter for screening colonoscopy 02/04/2025 9:30 AM CDT documented as of this encounter Visit Diagnoses Diagnosis Centrilobular emphysema (HCC)- Primary Nicotine dependence, cigarettes, uncomplicated Chronic rhinitis Encounter for screening colonoscopy documented in this encounter Discontinued Medications Medication Sig Discontinue Reason Start Date End Da te glycopyrrolate-formotero L (Bevespi Aerosphere) 9-4.8 mcg inhaler Inhale 2 puffs 2 (two) times a day Reorder 10/11/2022 12/19/2022 documented as of this encounter Care Teams Barrel Tester And Drainer Relationship Specialty Start Date End Date Harper Myers DO [address] [place] [address] PCP - General Family Medicine 09/23/21 11/22/23 Phoenix Loredo MD Consulting Physician Cardiology 01/04/19 Aylin Lundy MD [address] [place] [address] Sales And Marketing Assistant Obstetrics and Gynecology 04/19/21 documented as of this encounter
--- OUTSIDE RECORDS SUMMARY | 2024-10-13 04:08 | XMS_ITS | Encounter Summary ---
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 Gender Identity Not on file Sexual Orientation Not on file documented as of this encounter Miscellaneous Notes * Telephone Encounter - Nila Dubois, RT - 11/18/2021 1:02 PM CST Appointment confirmed PICKER documented in this encounter Plan of Treatment Upcoming Encounters Date Type Department Care Team (Late st Contact Info) Description 02/04/2025 9:30 AM CDT Hospital Encounter [address] [address] Vic Gaines, DO [address] [facility] [address] [place] [address] 02/04/2025 9:30 AM CDT - 02/04/2025 10:00 AM CDT Surgery [address] [address] Vic Gaines, DO [address] [address] [place] [address] COLONOSCOPY Scheduled Procedures Name Priority Associated Diagnoses Date/Ti me COLONOSCOPY Encounter for screening colonoscopy 02/04/2025 9:30 AM CDT documented as of this encounter Visit Diagnoses Not on filedocumented in this encounter Care Teams Lung Gun Operator Relationship Specialty Start Date End Date Lenora Myerse DO [address] [address] [place] [address] PCP - General Family Medicine 09/23/21 11/22/23 Phoenix Loredo MD Consulting Physician Cardiology 01/04/19 [place] [address] [place] [address] Computer Programmer Chief Obstetrics and Gynecology 04/19/21 documented as of this encounter
--- OUTSIDE RECORDS SUMMARY | 2024-10-13 04:08 | XMS_ITS | Encounter Summary ---
Author Organization [facility] Healthcare Address [address] [place] [address] Care Team Providers Care Animal Attendant Name Role Phone Phoenix Loredo MD Unavailable [phone] Aylin Lundy MD Unavailable [phone] Harper Myers DO Primary Care Provider [phone] Reason for Referral * MRI/CAT/PET Scan (Routine) - Closed Specialty Diagnoses / Procedures Referred By Denton pickard Referred To Contact Radiology Diagnoses Gross hematuria Procedures [place] [address] [place] [address] Phone: tel: fax: [address] [address] Referral ID Status Reason Start Date Expiration Date Visits Re quested Visits Authorized [id number] Closed 10/29/2021 11/28/2022 1 1 RUCTOR FLYING Reason for Visit * MRI/CAT/PET Scan (Routine) - Closed Specialty Diagnoses / Procedures Referred By Denton pickard Referred To Contact Radiology Diagnoses Gross hematuria Procedures [place] [address] [place] [address] Phone: tel: fax: [address] [phone] Referral ID Status Reason Start Date Expiration Date Visits Re quested Visits Authorized [id number] Closed 10/29/2021 11/28/2022 1 1 Encounter Details Date Type Department Care Team (Latest Contact Info) Description 11/19/2021 7:05 AM INSTRUCTOR FLYING - 11/19/2021 11:59 PM INSTRUCTOR FLYING Hospital Encounter [facility] [address] [place] [address] Harper Myers, [address] [place] [address] Gross hematuria Discharge Disposition: Discharge to home or self [...] on file Legal Sex Female 8:44 AM INSTRUCTOR FLYING Gender Identity Not on file Sexual Orientation [...] as needed for wheezing 1 Inhaler 2 01/10/20 19 022 aspirin 81 mg enteric coated tablet [...] mcg of glycopyrrolate 3 08/31/20 21 022 Lactobacillus acidophilus (PROBIOTIC) 10 billion cell [...] Description 02/04/2025 9:30 AM CDT Hospital Encounter [facility] [address] [place] [address] Vic Gaines, DO [address] [place] [place] [address] 02/04/2025 9:30 AM CDT - 02/04/2025 10:00 AM CDT Surgery [address] [address] Vic Gaines, DO 3 [facility] [address] [place] [address] [place] [address] COLONOSCOPY Scheduled Procedures Name Priority Associated Diagnoses Date/Ti me COLONOSCOPY Encounter for screening colonoscopy 02/04/2025 9:30 AM CDT documented as of this encounter Procedures Procedure Name Priority Date/Time Associated Diagnosis Comments CT RENAL STONE Schedule Routine, Read Routine (OP Routine) 11/19/2021 7:27 AM INSTRUCTOR FLYING Gross hematuria documented in this encounter Results * CT Renal Stone (11/19/2021 7:27 AM INSTRUCTOR FLYING) Anatomical Region Laterality Modality Abdomen N/A Computed Tomogra phy 11/19/2021 8:31 AM INSTRUCTOR FLYING Narrative 11/19/2021 8:36 AM INSTRUCTOR FLYING EXAM DESCRIPTION: ?? CT RENAL STONE REASON FOR STUDY: ?? gross hematuria ?? One episode of gross hematuria about 3-4 weeks ago. No pain or other symptoms. Hx of cholecystectomy, and aortic stent into bilateral femoral arteries. ? TECHNIQUE: CT scan of the abdomen and pelvis performed without intravenous and ??without ??oral contrast using helical scanning technique. Reconstructed coronal and sagittal MPR images reviewed. All images stored on PACS. ?? Automated exposure control was used as a dose optimization technique for this examination. COMPARISON: ?? 11/12/2020 FINDINGS: The sensitivity for detection of visceral lesions is diminished without the use of intravenous contrast. LOWER CHEST: ?? The heart size is normal. ??There is no definite evidence of pericardial effusion. ??There are atherosclerotic changes of the aorta. ?? Bilateral common iliac stent grafts are noted, which are incompletely evaluated on this noncontrast study.. ??There are mild emphysematous changes visualized lung bases with mild bibasilar subsegmental atelectasis and scarring. LIVER: ?? The liver is grossly normal in size and contour. GALLBLADDER: ?? Surgically absent. BILE DUCTS: ?? No intrahepatic or extrahepatic ductal dilatation. SPLEEN: ?? The spleen is grossly normal in size and unremarkable. PANCREAS: ?? The pancreas has a grossly unremarkable unenhanced CT appearance. ADRENALS: ?? There is stable thickening of the bilateral adrenal glands. ??There is a stable right adrenal nodule measuring 2.4 cm demonstrating attenuation characteristics compatible with a benign adrenal adenoma. KIDNEYS/URINARY TRACT: ?? There is a small exophytic lesion noted in the lateral interpolar region of the left kidney measuring 1.0 cm (axial image 33).. ??There is a punctate nonobstructing calculus in the right kidney measuring 0.3 cm.. ??There is no definite evidence of hydronephrosis or hydroureter. ??There is mild circumferential mucosal thickening of the urinary bladder. ??There few phleboliths noted in pelvis. ?Urinary bladder is unremarkable. GI: ?? There is no definite evidence of bowel obstruction. ??The appendix is visualized without definite evidence of pericecal or periappendiceal inflammatory changes to suggest appendicitis. ??There scattered colonic diverticula without definite evidence of diverticulitis. ??There is mild mucosal thickening of the mid to distal descending colon and sigmoid colon. ?? There is no definite evidence of free air or fluid in the abdomen and pelvis. ?? There is no definite unenhanced CT evidence of lymphadenopathy in the abdomen and pelvis. REPRODUCTIVE: ?? There is no definite unenhanced CT evidence of large ovarian or uterine mass. MUSCULOSKELETAL: ?? There is a minimal to mild dextroscoliotic curvature of the spine with mild degenerative changes. OTHER: ?? No other abnormality. IMPRESSION: ?? 1. ?? No definite evidence of obstructive uropathy. 2. ?? Punctate nonobstructing right renal calculus. 3. ?? Mild circumferential mucosal thickening of the urinary bladder, which may be related to underdistention versus cystitis. ??Clinical correlation with urinary analysis is recommended as clinically indicated. 4. ?? Small left exophytic left renal lesion measuring up to 1.0 cm. ??Further evaluation with renal ultrasound is recommended as clinically indicated. 5. ?? No definite bowel obstruction. 6. ?? Mild mucosal thickening of the mid to distal descending colon and sigmoid colon, which may be related to underdistention or chronic diverticulosis and less likely mild colitis of infectious or inflammatory etiology. 7. ?? Scattered colonic diverticula without definite evidence of diverticulitis. 8. ?? Normal appendix. THIS IS AN ELECTRONICALLY VERIFIED FINAL REPORT 11/19/2021 8:36 AM - Electronically signed by ??Joaquina Colmenares D.O. PS: PS D: ??11/19/2021 8:36 AM T: ??11/19/2021 8:36 AM Report ID: [id number] Reading Location: ??[id number] Procedure Note Joaquina Colmenares DO - 11/19/2021 EXAM DESCRIPTION: CT RENAL STONE REASON FOR STUDY: gross hematuria One episode of gross hematuria about 3-4 weeks ago. No pain or othersymptoms. Hx of cholecystectomy, and aortic stent into bilateral femoral arteries. TECHNIQUE: CT scan of the abdomen and pelvis performed without intravenousand without oral contrast using helical scanning technique. Reconstructed coronal and sagittal MPR images reviewed. All images stored on PACS. Automated exposure control was used as a dose optimization technique forthis examination. COMPARISON: 11/12/2020 FINDINGS: The sensitivity for detection of visceral lesions is diminished withoutthe use of intravenous contrast. LOWER CHEST: The heart size is normal. There is no definite evidence of pericardial effusion. There are atherosclerotic changes of the aorta. Bilateral common iliac stent grafts are noted, which are incompletely evaluated on this noncontrast study.. There are mild emphysematouschanges visualized lung bases with mild bibasilar subsegmental atelectasis and scarring. LIVER: The liver is grossly normal in size and contour. GALLBLADDER: Surgically absent. BILE DUCTS: No intrahepatic or extrahepatic ductal dilatation. SPLEEN: The spleen is grossly normal in size and unremarkable. PANCREAS: The pancreas has a grossly unremarkable unenhanced CTappearance. ADRENALS: There is stable thickening of the bilateral adrenal glands.There is a stable right adrenal nodule measuring 2.4 cm demonstratingattenuation characteristics compatible with a benign adrenal adenoma. KIDNEYS/URINARY TRACT: There is a small exophytic lesion noted in the lateral interpolar region of the left kidney measuring 1.0 cm (axial image 33).. There is a punctate nonobstructing calculus in the right kidney measuring 0.3 cm.. There is no definite evidence of hydronephrosis or hydroureter. There is mild circumferential mucosal thickening of theurinary bladder. There few phleboliths noted in pelvis. Urinary bladder is unremarkable. GI: There is no definite evidence of bowel obstruction. The appendix is visualized without definite evidence of pericecal or periappendiceal inflammatory changes to suggest appendicitis. There scattered colonic diverticula without definite evidence of diverticulitis. There is mild mucosal thickening of the mid to distal descending colon and sigmoidcolon. There is no definite evidence of free air or fluid in the abdomen andpelvis. There is no definite unenhanced CT evidence of lymphadenopathy in theabdomen and pelvis. REPRODUCTIVE: There is no definite unenhanced CT evidence of largeovarian or uterine mass. MUSCULOSKELETAL: There is a minimal to mild dextroscoliotic curvature ofthe spine with mild degenerative changes. OTHER: No other abnormality. IMPRESSION: 1. No definite evidence of obstructive uropathy. 2. Punctate nonobstructing right renal calculus. 3. Mild circumferential mucosal thickening of the urinary bladder, whichmay be related to underdistention versus cystitis. Clinical correlation with urinary analysis is recommended as clinically indicated. 4. Small left exophytic left renal lesion measuring up to 1.0 cm.Further evaluation with renal ultrasound is recommended as clinically indicated. 5. No definite bowel obstruction. 6. Mild mucosal thickening of the mid to distal descending colon andsigmoid colon, which may be related to underdistention or chronic diverticulosisand less likely mild colitis of infectious or inflammatory etiology. 7. Scattered colonic diverticula without definite evidence of diverticulitis. 8. Normal appendix. THIS IS AN ELECTRONICALLY VERIFIED FINAL REPORT 11/19/2021 8:36 AM - Electronically signed by Joaquina Colmenares D.O. PS: PS Report ID: [id number] Reading Location: [id number] Harper Myers DO IMG CT PROCEDURES Final Re sult documented in this encounter Visit Diagnoses Diagnosis Gross hematuria Encounter for screening colonoscopy documented in this encounter Care Teams Animal Attendant Relationship Specialty [place] [address] [place] [address] PCP - General Family Medicine 09/23/21 11/22/23 Phoenix Loredo MD Consulting Physician Cardiology 01/04/19 [place] [address] [place] [address] [employer] Obstetrics and Gynecology 04/19/21 documented as of this encounter
--- OUTSIDE RECORDS SUMMARY | 2024-10-13 04:08 | XMS_ITS | Encounter Summary ---
Author Organization [facility] Healthcare Address [address] [place] [address] Care Team Providers Care Carriage Operator Name Role Phone Phoenix Loredo MD Unavailable [phone] Aylin Lundy MD Unavailable [phone] Emerson Allen MD Primary Care Provider [phone] Reason for Referral * MRI/CAT/PET Scan (Routine) - Closed Specialty Diagnoses / Procedures Referred By Contmanuela pickard Referred To Contact Radiology Diagnoses Cigarette nicotine dependence with other nicotine-induced disorder Procedures CT Lung Cancer Screening Ho Jarrett MD Phone: tel: fax: [address] [address] Referral ID Status Reason Start Date Expiration Date Visits Re quested Visits Authorized [id number] Closed 09/06/2021 10/06/2022 1 1 ICIAN OFFICE NURSE Reason for Visit * MRI/CAT/PET Scan (Routine) - Closed Specialty Diagnoses / Procedures Referred By Contac t Referred To Contact Radiology Diagnoses Cigarette nicotine dependence with other nicotine-induced disorder Procedures CT Lung Cancer Screening Ho Jarrett MD Phone: tel: fax: [address] [phone] Referral ID Status Reason Start Date Expiration Date Visits Re quested Visits Authorized [id number] Closed 09/06/2021 10/06/2022 1 1 Encounter Details Date Type Department Care Team (Latest Contact Info) Description 09/11/2021 7:33 AM PHYSICIAN OFFICE NURSE - 09/11/2021 11:59 PM PHYSICIAN OFFICE NURSE Hospital Encounter [facility] [address] [place] [address] Ho Jarrett MD [address] [address] Cigarette nicotine dependence with other nicotine-induced disorder Discharge Disposition: Discharge to home or self [...] points, staff should administer the PHQ-9) 0 04/19/2021 Comments No Sex and Gender Information Value Date Recorded Sex Assigned at Not on file Legal Sex Female 8:44 AM PHYSICIAN OFFICE NURSE Gender Identity Not on file Sexual [...] 2 01/10/20 19 022 aspirin 81 mg tablet Take 81 mg by mouth. 022 atorvastatin (LIPITOR) 40 mg tablet TAKE 1 [...] 1 tablet (40 mg total) by mouth 2 (two) times a day 180 tablet 3 02/20/20 20 021 fluticasone propionate (FLONASE) 50 mcg/actuation nasal spray Administer 1 spray into each nostril daily 16 g 2 06/17/20 21 022 glycopyrrolate-for moteroL (BEVESPI AEROSPHERE) 9-4.8 mcg inhaler [...] 2 doses in 24 hours. 9 tablet 2 01/14/20 21 021 documented as of this encounter Discharge Disposition Disposition Code Departure Means Destination Discharge to home or self care documented in this encounter Plan of Treatment Upcoming Encounters Date Type Department Care Team (Late st Contact Info) Description 02/04/2025 9:30 AM CDT Hospital Encounter [facility] [address] [place] [address] Vic Gaines, DO [address] [facility] [place] [address] [place] [address] 02/04/2025 9:30 AM CDT - 02/04/2025 10:00 AM CDT Surgery [facility] [address] [place] [address] Vic Gaines, DO [address] [facility] [place] [address] [place] [address] COLONOSCOPY Scheduled Procedures Name Priority Associated Diagnoses Date/Ti me COLONOSCOPY Encounter for screening colonoscopy 02/04/2025 9:30 AM CDT documented as of this encounter Procedures Procedure Name Priority Date/Time Associated Diagnosis Comments CT LUNG CANCER SCREENING Schedule Routine, Read Routine (OP Routine) 09/11/2021 7:48 AM PHYSICIAN OFFICE NURSE Cigarette nicotine dependence with other nicotine-induced disorder documented in this encounter Results * CT Lung Cancer Screening (09/11/2021 7:48 AM PHYSICIAN OFFICE NURSE) Anatomical Region Laterality Modality Chest N/A Computed Tomogra phy 09/12/2021 7:43 AM PHYSICIAN OFFICE NURSE Narrative 09/12/2021 7:51 AM PHYSICIAN OFFICE NURSE EXAM DESCRIPTION: ?? CT LUNG CANCER SCREENING REASON FOR STUDY: Screening CT of the chest in a ?? current ??smoker with a ??40 ?? pack year smoking history. Additional history: None. TECHNIQUE: Low dose CT scan of the [...] CT dose index volume (CTDIvol) = ?? 1.4 ??mGy COMPARISON: ?? None available FINDINGS: SMOKING RELATED LUNG DISEASE: ?? Mild emphysema. LUNG NODULES: ?? 4 cm solid pulmonary nodule in the right upper lobe on image 50 3 mm solid pulmonary nodule in the right upper lobe on image 32. ??3 mm solid pulmonary nodule abutting the pleura in the right upper lobe on image 52. ??4 mm solid pulmonary nodule in the right upper lobe on image 76. Scattered other 1-3 mm solid pulmonary nodules are seen. 4 mm solid pulmonary nodule in the left upper lobe on image 124. ??4 mm solid pulmonary nodule in the right middle lobe on image 204. 5 mm solid pulmonary nodule in the right lower lobe on image 192. OTHER: ?? Atherosclerosis is seen in the great vessels, ??mild in severity. ?? There are coronary calcifications, [id number] in severity. ??Normal heart size. ??No lymphadenopathy. ??Normal thyroid. ??There is a 2.5 cm right adrenal nodule. ??There is left adrenal thickening. IMPRESSION: ?? 1. ?? Small pulmonary nodules between 1 and 5 mm. ??No suspicious pulmonary nodule. Lung-RADS v1.1 category ??2: Benign appearance or behavior. Recommendation: ??Continue annual screening low-dose chest CT in 12 months. THIS IS AN ELECTRONICALLY VERIFIED FINAL REPORT 09/12/2021 7:51 AM - Electronically signed by ??Paulino Angel M.D. KN: DAVID D: ??09/12/2021 7:51 AM T: ??09/12/2021 7:51 AM Report ID: [id number] Reading Location: ??[id number] Procedure Note Paulino Angel MD - 09/12/2021 EXAM DESCRIPTION: CT LUNG CANCER SCREENING REASON FOR STUDY: Screening CT of the chest in a current smoker with a40 pack year smoking history. Additional history: None. TECHNIQUE: Low dose CT scan of the [...] DOSE: CT dose index volume (CTDIvol) = 1.4 mGy COMPARISON: None available FINDINGS: SMOKING RELATED LUNG DISEASE: Mild emphysema. LUNG NODULES: 4 cm solid pulmonary nodule in the right upper lobe onimage 50 3 mm solid pulmonary nodule in the right upper lobe on image 32. 3 mm solid pulmonary nodule abutting the pleura in the right upper lobe onimage 52. 4 mm solid pulmonary nodule in the right upper lobe on image 76. Scattered other 1-3 mm solid pulmonary nodules are seen. 4 mm solid pulmonary nodule in the left upper lobe on image 124. 4 mmsolid pulmonary nodule in the right middle lobe on image 204. 5 mm solid pulmonary nodule in the right lower lobe on image 192. OTHER: Atherosclerosis is seen in the great vessels, mild in severity. There are coronary calcifications, [id number] in severity. Normalheart size. No lymphadenopathy. Normal thyroid. There is a 2.5 cm rightadrenal nodule. There is left adrenal thickening. IMPRESSION: 1. Small pulmonary nodules between 1 and 5 mm. No suspicious pulmonary nodule. Lung-RADS v1.1 category 2: Benign appearance or behavior. Recommendation: Continue annual screening low-dose chest CT in 12 months. THIS IS AN ELECTRONICALLY VERIFIED FINAL REPORT 09/12/2021 7:51 AM - Electronically signed by Paulino Angel M.D. KN: DAVID Report ID: [id number] Reading Location: [place] [address] Ho Jarrett MD IM CT PROCEDURES Final Result documented in this encounter Visit Diagnoses Diagnosis Cigarette nicotine dependence with other nicotine-induced disorder Encounter for screening colonoscopy documented in this encounter Care Teams Carriage Operator Relationship Specialty [place] [address] [place] [address] PCP - General 08/02/21 09/16/21 Phoenix Loredo MD Consulting Physician Cardiology 01/04/19 [place] [address] [place] [address] Materials Engineer Obstetrics and Gynecology 04/19/21 documented as of this encounter
--- OUTSIDE RECORDS SUMMARY | 2024-10-13 04:08 | XMS_ITS | Encounter Summary ---
Author Organization [facility] Healthcare Address [address] [place] [address] Care Team Providers Care Hat Presser Name Role Phone Phoenix Loredo MD Unavailable [phone] Aylin Lundy MD Unavailable [phone] Emerson Allen MD Primary Care Provider [phone] Encounter Details Date Type Department Care Team (Late st Contact Info) Description 09/11/2021 8:30 AM FLY RAISER LOCKSTITCH [address] [address] Ho Jarrett MD [address] [place] [address] Centrilobular emphysema (CMS/HCC) ([facility]) Discharge Disposition: Discharge to home or self [...] on file Legal Sex Female 8:44 AM FLY RAISER LOCKSTITCH Gender Identity Not on file Sexual Orientation Not on file documented as of this encounter Discharge Disposition Disposition Code Departure Means Destination Discharge to home or self care documented in this encounter Plan of Treatment Upcoming Encounters Date Type Department Care Team (Late st Contact Info) Description 02/04/2025 9:30 AM CDT Hospital Encounter [address] [address] Vic Gaines, DO [address] [facility] [place] [address] [place] [address] 02/04/2025 9:30 AM CDT - 02/04/2025 10:00 AM CDT Surgery [address] [address] Vic Gaines, DO [address] [facility] [place] [address] [place] [address] COLONOSCOPY Scheduled Procedures Name Priority Associated Diagnoses Date/Ti me COLONOSCOPY Encounter for screening colonoscopy 02/04/2025 9:30 AM CDT documented as of this encounter Procedures Procedure Name Priority Date/Time Associated Diagnosis Comments UNNQZ-5-FQUJHFBZVAF PHENOTYPE Routine 09/11/2021 8:23 AM FLY RAISER LOCKSTITCH Centrilobular emphysema (CMS/HCC) (HCC) documented in this encounter Results * Gmvls-7-pysereapfdd phenotype (09/11/2021 8:23 AM FLY RAISER LOCKSTITCH) alpha-1 antitrypsin 171 100 - 190 mg/dL JAY IZQUIERDO ([place]) Comment: ADDITIONAL INFORMATION Method: Nephelometry Test Performed by: [facility] [address] [place] [address] Psychologist: Seun Urbano M.D. Ph.D.; IA# [id number] alpha-1 antitrypsin phenotype MM bands JAY IZQUIERDO ([place]) Comment: A single M isoform is detected. In the context of a normal kibqy-3-gvrhzisgiyr concentration, this is consistent with an MM phenotype. ADDITIONAL INFORMATION Method: Isoelectric Focusing, This assay identifies the phenotype of the circulating xedda-8-teuxamexegb (A1A) protein. If the patient is on replacement therapy or has been recently transfused, the phenotype will detect patient and replacement or transfused plasma A1A protein. This test also cannot detect a null allele which could be responsible for an A1A deficiency. Blood 09/11/2021 8:23 AM FLY RAISER LOCKSTITCH 09/11/2021 9:21 AM FLY RAISER LOCKSTITCH Ho Jarrett MD LAB BLOOD ORDERABLES Final Resul t Performing Organization Address City/State/[facility] Co de Phone Number JAY FELECIA ([place]) 1 [facility] Department [place] [address] documented in this encounter Visit Diagnoses Diagnosis Centrilobular emphysema (HCC) Encounter for screening colonoscopy documented in this encounter Care Teams Hat Presser Relationship Specialty [place] [address] [place] [address] PCP - General 08/02/21 09/16/21 Phoenix Loredo MD Consulting Physician Cardiology 01/04/19 [place] [address] [place] [address] Basin Operator Obstetrics and Gynecology 04/19/21 documented as of this encounter
--- OUTSIDE RECORDS SUMMARY | 2024-10-13 04:08 | XMS_ITS | Encounter Summary ---
Author Organization [facility] Address [address] [place] [address] Care Team Providers Care Student Life Advisor Name Role Phone Phoenix Loredo MD Unavailable [phone] Aylin Lundy MD Unavailable [phone] Harper Myers DO Primary Care Provider [phone] Reason for Referral * MRI/CAT/PET Scan (Routine) - Closed Specialty Diagnoses / Procedures Referred By Contmanuela t Referred To Contact Radiology Diagnoses Gross hematuria Procedures [place] [address] [place] [address] Phone: tel: fax: [facility] [address] [place] [address] Referral ID Status Reason Start Date Expiration Date Visits Re quested Visits Authorized [id number] Closed 10/29/2021 11/28/2022 1 1 DENTIAL MENTAL HEALTH WORKER Reason for Visit * Reason Comments Blood in Urine transferring from Dr Champ GONSALEZ Encounter Details Date Type Department Care Team (Late st Contact Info) Description 10/29/2021 8:00 AM RESIDENTIAL MENTAL HEALTH WORKER Office Visit [facility] [address] [place] [address] Harper Myers DO [address] [place] [address] Gross hematuria (Primary Dx); Gastroesophageal reflux disease without esophagitis; Cigarette nicotine dependence without complication; Other migraine without status migrainosus, not intractable; Class 1 obesity due to excess calories with serious comorbidity and body mass index (BMI) of 30.0 to 30.9 in adult Social History Tobacco Use Types Packs/Day Years [...] on file Legal Sex Female 8:44 AM RESIDENTIAL MENTAL HEALTH WORKER Gender Identity Not on file Sexual Orientation Not on file documented as of this encounter Last Filed Vital Signs Vital Sign Reading Time Taken Comments Blood Pressure 122/72 10/29/2021 8:14 AM RESIDENTIAL MENTAL HEALTH WORKER Pulse 73 10/29/2021 8:14 AM RESIDENTIAL MENTAL HEALTH WORKER Temperature 36.8 ??C (98.2 ??F) 10/29/2021 8:14 AM CS T Respiratory Rate 20 10/29/2021 8:14 AM RESIDENTIAL MENTAL HEALTH WORKER Oxygen Saturation 97% 10/29/2021 8:14 AM RESIDENTIAL MENTAL HEALTH WORKER Inhaled Oxygen Concentration - - Weight 73.8 kg (162 lb 9.6 oz) 10/29/2021 8:14 A M RESIDENTIAL MENTAL HEALTH WORKER Height 154.9 cm (5' 1 ) 10/29/2021 8:14 AM RESIDENTIAL MENTAL HEALTH WORKER Body Mass Index 30.72 10/29/2021 8:14 AM RESIDENTIAL MENTAL HEALTH WORKER documented in this encounter Patient Instructions * Patient Instructions* Harper Myers, DO - 10/29/2021 8:00 AM RESIDENTIAL MENTAL HEALTH WORKER Images from the original note were not included. Patient Education Gastroesophageal Reflux Disease GENERAL SERVICE OFFICER: Gastroesophageal reflux reflux occurs when acid and food in the stomach back up into the esophagus.Gastroesophageal reflux disease (GERD) is reflux that occurs more than twice a week for a few weeks. It usually causes heartburn and other symptoms. GERD can cause other health problems over time if it is not treated. Common symptoms include: Heartburn is the most common symptom of GERD. You may feel burning pain inyour chest or below the breast bone. This usually occurs after meals and spreads to your neck, jaw,or shoulder. The pain gets better when you change positions. You may also have any of the following: ?? Bitter or acid taste in your mouth ?? Dry cough ?? Trouble swallowing or pain with swallowing ?? Hoarseness or sore throat ?? Frequent burping or hiccups ?? Feeling of fullness soon after you start eating Seek care immediately if: ?? You feel full and cannot burp or vomit. ?? You have severe chest pain and sudden trouble breathing. ?? Your bowel movements are black, bloody, or tarry-looking. ?? Your vomit looks like coffee grounds or has blood in it. Contact your healthcare provider if: ?? You vomit large amounts, or you vomit often. ?? You have trouble breathing after you vomit. ?? You have trouble swallowing, or pain with swallowing. ?? You are losing weight without trying. ?? Your symptoms get worse or do not improve with treatment. ?? You have questions or concerns about your condition or care. Treatment for GERD: Your healthcare provider may prescribe medicine to decrease stomach acid. He may also prescribe medicine that help your esophagus and stomach move food and liquid to your intestines. Surgery may be done if other treatments do not work. You may need surgery to wrap the upper partof the stomach around the esophageal sphincter. This will strengthen the sphincter and prevent reflux. Manage GERD: ?? Do not have foods or drinks that may increase heartburn. These include chocolate, peppermint, fried or fatty foods, drinks that contain caffeine, or carbonated drinks (soda). Other foods include spicy foods, onions, tomatoes, and tomato-based foods. Do not have foods or drinks that can irritate your esophagus, such as citrus fruits, juices, and alcohol. ?? Do not eat large meals. When you eat a lot of food at one time, your stomach needs more acid to digest it. Eat 6 small meals each day instead of 3 large ones, and eat slowly. Do not eat meals 2 to3 hours before bedtime. ?? Elevate the head of your bed. Place 6-inch blocks under the head of your bed frame. You may alsouse more than one pillow under your head and shoulders while you sleep. ?? Maintain a healthy weight. If you are overweight, weight loss may help relieve symptoms of GERD. ?? Do not smoke. Smoking weakens the lower esophageal sphincter and increases the risk of GERD. Askyour healthcare provider for information if you currently smoke and need help to quit. E-cigarettesor smokeless tobacco still contain nicotine. Talk to your healthcare provider before you use these products. ?? Do not wear clothing that is tight around your waist. Tight clothing can put pressure on your stomach and cause or worsen GERD symptoms. Follow up with your healthcare provider as directed: Write down your questions so you remember to ask them during your visits. ?? 2017 [employer] Information is for End User's use only and may not be sold, redistributed or otherwise used for commercial purposes. All illustrations and images included in CareNotes?? are the copyrighted property of [employer]. or [employer]. The above information is an clerical aide only. It is not intended as medical advice for individual conditions or treatments. Talk to your doctor, nurse or pharmacist before following any medical regimen to see if it is safe and effective for you. Health Maintenance Topics with due status: Overdue Topic Date Due Regular Well Visit/Exam Never done Zoster Vaccines Never done Covid-19 Vaccine 08/19/2021 Thanks for coming in today! My medical assistants and I are thankful you have trusted us with your care, and hope that you received EXCELLENT care today! Please do not hesitate to call if you have any questions or concerns at [phone]. You may receive a phone call, text, MYCHART message, or e-mail asking about your care today. We would love to hear your feedback on how EXCELLENT your care wastoday! Wishing you better health, always. Dr. Myers DENTIAL MENTAL HEALTH WORKER documented in this encounter Ordered Prescriptions Prescription Sig Dispense Quantity Refills Last Filled Start Date End Date SUMAtriptan (IMITREX) 50 mg tabletIndications: Other migraine without status migrainosus, not intractable May repeat dose once in 2 hours if no relief. Do not exceed 2 doses in 24 hours. 9 tablet 3 10/29/2021 3 fluticasone propionate (FLONASE) 50 mcg/actuation nasal spray Administer 1 spray into each nostril daily 16 g 11 10/29/2021 3 famotidine (Pepcid) 40 mg tablet Take 1 tablet (40 mg total) by mouth nightly 90 tablet 3 10/29/2021 3 aspirin 81 mg enteric coated tablet Take 1 tablet (81 mg total) by mouth daily 90 tablet 3 10/29/2021 3 documented in this encounter Progress Notes * Harper Myers, DO - 10/29/2021 8:00 AM CST Images from the original note were not included. Subjective/Objective Patient ID: Mirtha Cherry is a 56 y.o. female. Chief Complaint Chief Complaint Patient presents with ??? Blood in Urine transferring from Dr. Allen ??? GERD HPI New patient to me, switching over from Dr. Allen. Patient is following up on the blood in urine found last month. She reports that she was able to see the blood in her urine, however, it quickly cleared up. She denies any flank/back/abdominal pain. She denies any dysuria. She is a smoker. She also reports flares with her GERD. She notices it when eating heavy meals. She recently had an EGD inOct 2021, she had some esophageal stricture, which was dilated in the process. Blood in Urine This is a new problem. The current episode started 1 to 4 weeks ago. The problem has been resolved since onset. She describes the hematuria as gross hematuria. She is experiencing no pain. She describes her urine color as tea colored. Irritative symptoms do not include frequency or nocturia. Pertinent negatives include no abdominal pain, dysuria, fever, flank pain, inability to urinate, nausea orvomiting. There is no history of hypertension or kidney stones. Review of Systems Constitutional: Negative for fever and unexpected weight change. HENT: Negative for congestion. Eyes: Negative for visual disturbance. Cardiovascular: Negative for palpitations and leg swelling. Gastrointestinal: Negative for abdominal pain, nausea and vomiting. Genitourinary: Positive for hematuria. Negative for dysuria, flank pain, frequency and nocturia. Musculoskeletal: Negative for back pain. Skin: Negative for rash. Neurological: Negative for dizziness and headaches. All other systems reviewed and are negative. Vitals: 10/29/21 0814 BP: 122/72 BP Location: Left arm Patient Position: Sitting Pulse: 73 Resp: 20 Temp: 36.8 ??C (98.2 ??F) TempSrc: Temporal SpO2: 97% Weight: 73.8 kg (162 lb 9.6 oz) Height: 154.9 cm (5' 1 ) Body mass index is 30.72 kg/m??. Physical Exam Vitals and nursing note reviewed. Constitutional: Appearance: She is well-developed. She is obese. Interventions: Face mask in place. HENT: Head: Normocephalic and atraumatic. Eyes: General: No scleral icterus. Extraocular Movements: Extraocular movements [...] CVA tenderness or left CVA tenderness. Musculoskeletal: Cervical back: Normal range of motion and neck supple. Right lower leg: No edema. Left lower leg: No edema. Skin: General: Skin is warm and dry. Findings: No erythema or rash. Neurological: General: No focal deficit present. Mental Status: She is alert and oriented to person, place, and time. Psychiatric: Mood and Affect: Mood normal. Behavior: Behavior normal. Thought Content: Thought content normal. Diagnoses and all orders for this visit: Gross hematuria (Primary) Assessment & Plan: Recommended referral to urology for further workup of hematuria. Inform patient with a history of smoking that she should be worked up for bladder cancer. Patient disagreed and prefers to have a CT done of her kidneys to rule out kidney stones. Order placed for CT renal. Orders: - CT Renal Stone; Future Gastroesophageal reflux disease without esophagitis Assessment & Plan: Patient currently on famotidine, which helps. Patient also making dietary modifications to help with symptoms. Continue current management. Cigarette nicotine dependence without complication Assessment & Plan: Advised patient to quit smoking. Other migraine without status migrainosus, not intractable Comments: refilled Imitrex Assessment & Plan: Asymptomatic. Stable. Continue current prescription medications. Orders: - SUMAtriptan (IMITREX) 50 mg tablet; May repeat dose once in 2 hours if no relief. Do not exceed 2doses in 24 hours. Class 1 obesity due to excess calories with serious comorbidity and body mass index (BMI) of 30.0 to 30.9 in adult Assessment & Plan: Weight reduction, daily exercise and dietary modifications recommended. Other orders - aspirin 81 mg enteric coated tablet; Take 1 tablet (81 mg total) by mouth daily - famotidine (Pepcid) 40 mg tablet; Take 1 tablet (40 mg total) by mouth nightly - fluticasone propionate (FLONASE) 50 mcg/actuation nasal spray; Administer 1 spray into each nostril daily Harper Myers DO This note is dictated and transcribed by [employer]. Park Recreation Manager variances may occur. Despite proofreading, typographical errors may occur. DENTIAL MENTAL HEALTH WORKER documented in this encounter Miscellaneous Notes * Assessment & Plan Note - Harper Myers DO - 10/29/2021 11:07 AM RESIDENTIAL MENTAL HEALTH WORKER Associated Problem(s): BMI 29.0-29.9,adult Weight reduction, daily exercise and dietary modifications recommended. DENTIAL MENTAL HEALTH WORKER * Assessment & Plan Note - Harper Myers DO - 10/29/2021 11:06 AM RESIDENTIAL MENTAL HEALTH WORKER Associated Problem(s): Migraine Asymptomatic. Stable. Continue current prescription medications. DENTIAL MENTAL HEALTH WORKER * Assessment & Plan Note - Harper Myers DO - 10/29/2021 11:05 AM RESIDENTIAL MENTAL HEALTH WORKER Associated Problem(s): Gross hematuria Recommended referral to urology for further workup of hematuria. Inform patient with a history of smoking that she should be worked up for bladder cancer. Patient disagreed and prefers to have a CT done of her kidneys to rule out kidney stones. Order placed for CT renal. DENTIAL MENTAL HEALTH WORKER * Assessment & Plan Note - Harper Myers DO - 10/29/2021 11:04 AM RESIDENTIAL MENTAL HEALTH WORKER Associated Problem(s): Cigarette nicotine dependence without complication Advised patient to quit smoking. DENTIAL MENTAL HEALTH WORKER * Assessment & Plan Note - Harper Myers DO - 10/29/2021 11:04 AM RESIDENTIAL MENTAL HEALTH WORKER Associated Problem(s): GERD (gastroesophageal reflux disease) Patient currently on famotidine, which helps. Patient also making dietary modifications to help with symptoms. Continue current management. DENTIAL MENTAL HEALTH WORKER documented in this encounter Plan of Treatment Upcoming Encounters Date Type Department Care Team (Late st Contact Info) Description 02/04/2025 9:30 AM CDT Hospital Encounter [address] [address] Vic Gaines, [address] [address] 02/04/2025 9:30 AM CDT - 02/04/2025 10:00 AM CDT Surgery [address] [address] Vic Gaines, 3 [facility] [address] COLONOSCOPY Scheduled Procedures Name Priority Associated Diagnoses Date/Ti me COLONOSCOPY Encounter for screening colonoscopy 02/04/2025 9:30 AM CDT documented as of this encounter Results * CT Renal Stone (11/19/2021 7:27 AM RESIDENTIAL MENTAL HEALTH WORKER) Anatomical Region Laterality Modality Abdomen N/A Computed Tomogra phy 11/19/2021 8:31 AM RESIDENTIAL MENTAL HEALTH WORKER Narrative 11/19/2021 8:36 AM RESIDENTIAL MENTAL HEALTH WORKER EXAM DESCRIPTION: ?? CT RENAL STONE REASON [...] AM T: ??11/19/2021 8:36 AM Report ID: [id number] Reading Location: ??[id number] Procedure Note Joaquina Colmenares, DO - 11/19/2021 EXAM DESCRIPTION: CT RENAL [...] Joaquina Colmenares D.O. PS: PS Report ID: [id number] Reading Location: [place] [address] Harper Myers DO IMG CT PROCEDURES Final Re sult documented in this encounter Visit Diagnoses Diagnosis Gross hematuria- Primary Gastroesophageal reflux disease without esophagitis Esophageal reflux Cigarette nicotine dependence without complication Other migraine without status migrainosus, not intractable Class 1 obesity due to excess calories with serious comorbidity and body mass index (BMI) of 30.0 to 30.9 in adult Gross hematuria Encounter for screening colonoscopy documented in this encounter Discontinued Medications Medication Sig Discontinue Reason Start Date End Da te aspirin 81 mg tablet Take 81 mg by mouth. Reorder 2021 fluticasone propionate (FLONASE) 50 mcg/actuation nasal spray Administer 1 spray into each nostril daily Reorder 06/17/2021 10/29/2021 SUMAtriptan (IMITREX) 50 mg tabletIndications:Other migraine without status migrainosus, not intractable May repeat dose once in 2 hours if no relief. Do not exceed 2 doses in 24 hours. Reorder 09/14/2021 10/29/2021 famotidine (Pepcid) 40 mg tablet Take 1 tablet (40 mg total) by mouth 2 (two) times a day Reorder 09/14/2021 10/29/2021 documented as of this encounter Care Teams Student Life Advisor Relationship Specialty Start [place] [address] [place] [address] PCP - General Family Medicine 09/23/21 11/22/23 Phoenix Loredo MD Consulting Physician Cardiology 01/04/19 [place] [address] [place] [address] Boat Carpenter Mechanic Obstetrics and Gynecology 04/19/21 documented as of this encounter
--- OUTSIDE RECORDS SUMMARY | 2024-10-13 04:08 | XMS_ITS | Encounter Summary ---
Author Organization [facility] Healthcare Address [address] [place] [address] Care Team Providers Care Surgical Assistant Name Role Phone Phoenix Loredo MD Unavailable [phone] Aylin Lundy MD Unavailable [phone] Emerson Allen MD Primary Care Provider [phone] Encounter Details Date Type Department Care Team (Late st Contact Info) Description 09/06/2021 Telephone [facility] [address] [place] [address] Nila Dubois, RT Social History Tobacco Use [...] on file Legal Sex Female 8:44 AM POWER ENGINEER Gender Identity Not on file Sexual Orientation Not on file documented as of this encounter Miscellaneous Notes * Telephone Encounter - Nila Dubois, RT - 09/06/2021 2:50 PM CST error R ENGINEER documented in this encounter Plan of Treatment Upcoming Encounters Date Type Department Care Team (Late st Contact Info) Description 02/04/2025 9:30 AM CDT Hospital Encounter [address] [address] Vic Gaines, DO 3 [facility] [place] [address] [place] [address] 02/04/2025 9:30 AM CDT - 02/04/2025 10:00 AM CDT Surgery [address] [address] Vic Gaines, DO 3 [facility] [address] [place] [address] COLONOSCOPY Scheduled Procedures Name Priority Associated Diagnoses Date/Ti me COLONOSCOPY Encounter for screening colonoscopy 02/04/2025 9:30 AM CDT documented as of this encounter Visit Diagnoses Not on filedocumented in this encounter Care Teams Surgical Assistant Relationship Specialty Start Date End Date Emerson Allen MD [address] [place] [address] PCP - General 08/02/21 09/16/21 Phoenix Loredo MD Consulting Physician Cardiology 01/04/19 [place] [address] [place] [address] Ceramic Engineering Professor Obstetrics and Gynecology 04/19/21 documented as of this encounter
--- OUTSIDE RECORDS SUMMARY | 2024-10-13 04:08 | XMS_ITS | Encounter Summary ---
Author Organization [facility] Address [address] [facility] [address] [place] [address] Care Team Providers Care Spooler Name Role Phone Phoenix Loredo MD Unavailable [phone] Aylin Lundy MD Unavailable [phone] Harper Myers DO Primary Care Provider [phone] Reason for Referral * Consultation (Routine) - Closed Specialty Diagnoses / Procedures Referred By Contac t Referred To Contact Sleep Medicine Diagnoses TROY (obstructive sleep apnea) Phoenix Loredo MD Phone: tel: fax: Brianne Cordero MD Phone: tel: Referral ID Status Reason Start Date Expiration Date V isits Requested Visits Authorized [id number] Closed Specialty Services Required 11/10/2021 11/17/2022 1 1 Question Answer Please select the performing region: [facility] [[id number]] Please select the performing department: [facility] SLEEP MED [facility] [[id number]] To provider: BRIANNE CORDERO [[id number]] # of visits: [address] Loredo for abnormal sleep study. EME COURT JUDGE Encounter Details Date Type Department Care Team (Late st Contact Info) Description 11/10/2021 Orders Only [place] Commissioner Conservation Of Resources 2 [facility] [address] [place] [id number] Phoenix Loredo MD 2 [facility] [address] [place] [address] TROY (obstructive sleep apnea) (Primary Dx) Social History Tobacco Use Types [...] on file Legal Sex Female 8:[address] Gender Identity Not on file Sexual Orientation Not on file documented as of this encounter Progress Notes * Paige Maxwell MA - 11/10/2021 8:39 AM CST Per SB, refer pt to Sleep Medicine Dr. Cordero. EME COURT JUDGE documented in this encounter Plan of Treatment Upcoming Encounters Date Type Department Care Team (Late st Contact Info) Description 02/04/2025 9:30 AM CDT Hospital Encounter [facility] 1 [place] [address] Vic Gaines, DO [address] [address] 02/04/2025 9:30 AM CDT - 02/04/2025 10:00 AM CDT Surgery [facility] 1 [place] [address] Vic Gaines DO [address] [place] [address] [place] [address] COLONOSCOPY Scheduled Procedures Name Priority Associated Diagnoses Date/Ti me COLONOSCOPY Encounter for screening colonoscopy 02/04/2025 9:30 AM CDT Scheduled Referrals Name Type Priority Associated Diagnoses Order Schedule Ambulatory referral to Sleep Medicine Outpatient Referral Routine TROY (obstructive sleep apnea) Expected: 11/17/2021 (Approximate), Expires: 11/10/2022 documented as of this encounter Visit Diagnoses Diagnosis TROY (obstructive sleep apnea)- Primary Obstructive sleep apnea (adult) (pediatric) Encounter for screening colonoscopy documented in this encounter Care Teams Spooler Relationship Specialty Start Date End Date Louis Harper DO Rami[place] [address] [place] [address] PCP - General Family Medicine 09/23/21 11/22/23 Phoenix Loredo MD Consulting Physician Cardiology 01/04/19 Aylin Lundy MD [address] [place] [address] [place] Obstetrics and Gynecology 04/19/21 documented as of this encounter
--- OUTSIDE RECORDS SUMMARY | 2024-10-13 04:08 | XMS_ITS | Encounter Summary ---
Author Organization [facility] Address [address] [facility] [address] [place] [address] Care Team Providers Care City Carrier Name Role Phone Phoenix Loredo MD Unavailable [phone] Aylin Lundy MD Unavailable [phone] Emerson Allen MD Primary Care Provider [phone] Reason for Referral * MRI/CAT/PET Scan (Routine) - Closed Specialty Diagnoses / Procedures Referred By Contac t Referred To Contact Radiology Diagnoses Cigarette nicotine dependence with other nicotine-induced disorder Procedures CT Lung Cancer Screening Ho Jarrett MD Phone: tel: fax: [address] [address] Referral ID Status Reason Start Date Expiration Date Visits Re quested Visits Authorized [id number] Closed 09/06/2021 10/06/2022 1 1 ENSER TUBE TENDER Encounter Details Date Type Department Care Team (Late st Contact Info) Description 09/06/2021 Orders Only [facility] Pulmonology at [address] [place] [address] Urmila Nye LPN Cigarette nicotine dependence with other nicotine-induced disorder (Primary Dx) Social History Tobacco Use Types [...] on file Legal Sex Female 8:44 AM CONDENSER TUBE TENDER Gender Identity Not on file Sexual Orientation Not on file documented as of this encounter Progress Notes * Urmila Nye LPN - 09/06/2021 1:57 PM CST Placed new order with dx code. ENSER TUBE TENDER documented in this encounter Plan of Treatment Upcoming Encounters Date Type Department Care Team (Late st Contact Info) Description 02/04/2025 9:30 AM CDT Hospital Encounter [address] [address] Vic Gaines, DO [address] [address] 02/04/2025 9:30 AM CDT - 02/04/2025 10:00 AM CDT Surgery [address] [address] Vic Gaines, DO 3 [facility] [place] [address] [place] [address] COLONOSCOPY Scheduled Procedures Name Priority Associated Diagnoses Date/Ti me COLONOSCOPY Encounter for screening colonoscopy 02/04/2025 9:30 AM CDT documented as of this encounter Results * CT Lung Cancer Screening (09/11/2021 7:48 AM CONDENSER TUBE TENDER) Anatomical Region Laterality Modality Chest N/A Computed Tomogra phy 09/12/2021 7:43 AM CONDENSER TUBE TENDER Narrative 09/12/2021 7:51 AM CONDENSER TUBE TENDER EXAM DESCRIPTION: ?? CT LUNG CANCER SCREENING [...] in severity. ?? There are coronary calcifications, [id number] in severity. ??Normal heart size. ??No lymphadenopathy. [...] 09/12/2021 7:51 AM - Electronically signed by ??Paulinonila HERNANDEZ: DAVID D: ??09/12/2021 7:51 AM T: ??09/12/2021 7:51 AM Report ID: [id number] Reading Location: ??[id number] Procedure Note Paulino Angel MD - 09/12/2021 [...] mild in severity. There are coronary calcifications, [id number] in severity. Normalheart size. No lymphadenopathy. Normal [...] 7:51 AM - Electronically signed by Paulino HERNANDEZ: DAVID Report ID: [id number] Reading Location: [id number] Ho Jarrett MD IMG CT PROCEDURES Final Result documented in this encounter Visit Diagnoses Diagnosis Cigarette nicotine dependence with other nicotine-induced disorder- Primary Cigarette nicotine dependence with other nicotine-induced disorder Encounter for screening colonoscopy documented in this encounter Care Teams City Carrier Relationship Specialty [place] [address] [place] [address] PCP - General 08/02/21 09/16/21 Phoenix Loredo MD Consulting Physician Cardiology 01/04/19 [place] [address] [place] [address] Offset Plate Preparation Supervisor Obstetrics and Gynecology 04/19/21 documented as of this encounter
--- OUTSIDE RECORDS SUMMARY | 2024-10-13 04:08 | XMS_ITS | Encounter Summary ---
Author Organization [facility] Address [address] [facility] [address] [place] [address] Care Team Providers Care Foundry Superintendant Name Role Phone Phoeinx Loredo MD Unavailable [phone] Aylin Lundy MD Unavailable Emerson Allen MD Primary Care Provider [phone] Encounter Details Date Type Department Care Team (Late st Contact Info) Description 09/14/[address] 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 Do not exceed 2 doses in 24 hours. 9 tablet 3 09/14/2021 10/29/2021 documented in this encounter Miscellaneous Notes * Telephone Encounter - Mary Delcid MA - 09/14/2021 11:25 AM NET MVC DEVELOPER Refill request from [facility] for Sumatriptan 50mg tab Last refill 01/13/21 #9 with 2 Last ov 04/19/21 Refill request for Famotidine 40mg tab Last refill 02/20/20 #180 with 3 MVC DEVELOPER MVC DEVELOPER documented in this encounter Plan of Treatment Upcoming Encounters Date Type Department Care Team ([facility] st Contact Info) Description 02/04/2025 9:30 AM CDT Hospital Encounter [address] [address] Vic Gaines, DO 3 [facility] [place] [address] [place] [address] 02/04/2025 9:30 AM CDT - 02/04/2025 10:00 AM CDT Surgery [address] [address] Vic Gaines, DO [address] [address] COLONOSCOPY Scheduled Procedures Name Priority Associated Diagnoses Date/Ti me COLONOSCOPY Encounter for screening colonoscopy 02/04/2025 9:30 AM CDT documented as of this encounter Visit Diagnoses Diagnosis Other migraine without status migrainosus, not intractable Encounter for screening colonoscopy documented in this encounter Discontinued Medications Medication Sig Discontinue Reason Start Date End Da te famotidine (Pepcid) 40 mg tablet Take 1 tablet (40 mg total) by mouth 2 (two) times a day Reorder 02/20/2020 09/14/2021 SUMAtriptan (IMITREX) 50 mg tabletIndications:Other migraine without status migrainosus, not intractable May repeat dose once in 2 hours if no relief. Do not exceed 2 doses in 24 hours. Reorder 01/13/2021 09/14/2021 documented as of this encounter Care Teams Foundry Superintendant Relationship Specialty [place] [address] [place] [address] PCP - General 08/02/21 09/16/21 Phoenix Loredo MD Consulting Physician Cardiology 01/04/19 Aylin Lundy MD [address] [place] [address] Numerical Control Machine Tool Operator Obstetrics and Gynecology 04/19/21 documented as of this encounter
--- OUTSIDE RECORDS SUMMARY | 2024-10-13 04:08 | XMS_ITS | Encounter Summary ---
Author Organization [facility] Address [address] [facility] [address] [place] [address] Care Team Providers Care Construction Consultant Name Role Phone Phoenix Loredo MD Unavailable [phone] Aylin Lundy MD Unavailable [phone] Harper Myers DO Primary Care Provider [phone] Reason for Referral * Diagnostic Imaging (Routine) - Closed Specialty Diagnoses / Procedures Referred By Contac t Referred To Contact Diagnoses Atherosclerosis of ione arteries of extremities with intermittent claudication, bilateral legs (HCC) Procedures [facility] Phoenix Loredo MD Phone: tel: fax: [address] [address] Referral ID Status Reason Start Date Expiration Date Visits Re quested Visits Authorized [id number] Closed 10/19/2021 11/18/2022 1 1 TRIC STOP INSTALLER * Sleep Medicine (Routine) - Closed Specialty Diagnoses / Procedures Referred By Contac t Referred To Contact Diagnoses TROY (obstructive sleep apnea) Procedures Portable/Home Sleep Study Phoenix Loredo MD Phone: tel: fax: [address] [address] Referral ID Status Reason Start Date Expiration Date Visits Re quested Visits Authorized [id number] Closed 10/19/2021 11/18/2022 1 1 TRIC STOP INSTALLER Reason for Visit * Reason Comments Follow-up Hyperlipidemia Encounter Details Date Type Department Care Team (Late st Contact Info) Description 10/19/2021 8:30 AM ELECTRIC STOP INSTALLER Office Visit [place] Clinical Operations Manager 2 [facility] [address] [place] [address] Phoenix Loredo MD 2 [facility] [address] [place] [address] PVD (peripheral vascular disease) (CMS/HCC) (HCC) (Primary Dx); PVC (premature ventricular contraction); Bilateral carotid artery stenosis; Multiple-type hyperlipidemia; Atherosclerosis of ione arteries of extremities with intermittent claudication, bilateral legs (HCC); TROY (obstructive sleep apnea) Social History Tobacco [...] on file Legal Sex Female 8:44 AM ELECTRIC STOP INSTALLER Gender Identity Not on file Sexual Orientation Not on file documented as of this encounter Last Filed Vital Signs Vital Sign Reading Time Taken Comments Blood Pressure 135/77 10/19/2021 8:32 AM ELECTRIC STOP INSTALLER Pulse 92 10/19/2021 8:32 AM ELECTRIC STOP INSTALLER Temperature 36.9 ??C (98.5 ??F) 10/19/2021 8:32 AM CS T Respiratory Rate 16 10/19/2021 8:32 AM ELECTRIC STOP INSTALLER Oxygen Saturation - - Inhaled Oxygen Concentration - - Weight 73.9 kg (163 lb) 10/19/2021 8:32 AM ELECTRIC STOP INSTALLER Height 154.9 cm (5' 1 ) 10/19/2021 8:32 AM ELECTRIC STOP INSTALLER Body Mass Index 30.8 10/19/2021 8:32 AM ELECTRIC STOP INSTALLER documented in this encounter Progress Notes * Phoenix Loredo MD - 10/19/2021 8:30 AM CST Cardiology note Reason for Office Visit: PAD History of Present Illness: Moshe Hartley is a 56 y.o. female who presents to the office for a follow up visit for PAD., s/p stent placement., tobacco abuse and dyslipidemia . In 2004 ,patient had two bare metal stents placd in bilateral common iliac arteries.they were restented with ICAST ( 7 X 38 mm, post dilated using 8 mm balloon) covered stents in 2007 at [facility]. Patient had balloon angioplasty done for repeat stenosis in 2014. Patient was going to undergo bunion surgery and refered by patient admitting representative for weak pedal pulses. US doppler showed [...] cramp but not always consistent. Improves with rest . Present for long time. patint had harish angio with intervention on 09/09/2016 successful repeat stenting of the aortic bifurcationusing kissing stents technique 8 x 59 ICAST covered stents post dilated balloon bilaterally. Post ABE had normalized Patient states feeling much better- no leg pain.ABE improved Patient denies chest pain, SOB, palpitations. Patient still smoking . Walking 1/2- 1 mile. No open sores .Patient weight is stable Denies issues with her legs. Reports palpitations. She noticed on her FitBit that she has low HR in60's followed by fast HR in 120's. She also wakes up in the night and states her heart is racing. She also state she snores at night but has never been diagnosed with TROY. Interrupted sleep, daytime sleepy. Cat nap Weight: 161 lbs Review of Systems: Review of Systems [...] reflux disease GERD ??? 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 HX OTHER MEDICAL 02-SUPPORT MANAGER ??? HX OTHER MEDICAL 2010 capal tunnel [...] for this visit. Vital Signs: Vitals BP 135/77 (BP Location: Right arm, Patient Position: Sitting) Pulse 92 Temp 36.9 ??C (98.5 ??F) Resp 16 Ht 154.9 cm (5' 1 ) Wt 73.9 kg (163 lb) LMP (LMP Unknown) BMI 30.80 kg/m?? Vitals: 10/19/21 0832 BP: 135/77 Pulse: 92 Resp: 16 Temp: 36.9 ??C (98.5 ??F) Wt Readings from Last 3 Encounters: 10/19/21 73.9 kg (163 lb) 09/17/21 73.9 kg (163 lb) 08/31/21 74.2 kg (163 lb 9.6 oz) Body mass index is 30.8 kg/m??. Physical Exam: Physical Exam Constitutional: General: [...] and time. Pulse exam ; On the right: The femoral pulses palpable. The posterior tibial is palpable. The dorsalis pedis is present by Doppler. On the left, the femoral pulse is weak. The dorsalis pedis is absent. The posterior tibial is present by Doppler but not palpable Labs: Lab Results Component Value Date INR [...] the ankle. EK12/2015 SR possible old anterior TN 07/2016 SR , possible old anterior TN AIF 05/2021 IMPRESSION 1. Patent previously-implanted covered [...] minute with PVCs noted. PVC burden was 11%!! ABE in October 2021 Conclusions: 1. No arterial insufficiency in either lower extremitiy with ABE of 1.0 on the right and 1.1 on the left. 2. Triphasic waveform at the ankle bilaterally. 3. results unchanged fomr prior study in 07/2021. EKG 07/12/2021 showed sinus rhythm with PVCs. [...] by EKG criteria Plan: Continue same medication regimen.add Toprol XL 25 daily recommended to increase statin but patient wants to stick with dietary changes for now Continue tight control of blood pressure and cholesterol. Continue diet, exercise, and weight reduction. Smoking cessation discussed with patient including the potential health risks. Patient was given options of different aids for smoking cessation. Will continue the discussion. OK to use nicotine patch sleep study for evaluation of TROY. RTC 6 months with ABE Diagnoses and all orders for this visit: PVD (peripheral vascular disease) (CMS/HCC) (HCC) (Primary) PVC (premature ventricular contraction) Bilateral carotid artery stenosis Multiple-type hyperlipidemia Return in about 6 months (around 04/18/2022). 10/19/2021 @ 8:56 AM Phoenix Loredo MD Cc:Harper Myers, DO TRIC STOP INSTALLER documented in this encounter Miscellaneous Notes * Addendum Note - Zuleima Givens - 10/19/2021 8:30 AM CSTAddended by: ZULEIMA GIVENS on: 10/19/2021 09:09 AM Modules accepted: Orders TRIC STOP INSTALLER documented in this encounter Plan of Treatment Upcoming Encounters Date Type Department Care Team (Late st Contact Info) Description 02/04/2025 9:30 AM CDT Hospital Encounter [facility] Digestive [address] [address] Vic Gaines, DO [address] [place] [address] [place] [address] 02/04/2025 9:30 AM CDT - 02/04/2025 10:00 AM CDT Surgery [facility] [address] [address] Vic Gaines, DO [address] [address] COLONOSCOPY Scheduled Procedures Name Priority Associated Diagnoses Date/Ti tn COLONOSCOPY Encounter for screening colonoscopy 02/04/2025 9:30 AM CDT documented as of this encounter Results * US ABE (05/13/2022 7:56 AM CDT) Anatomical Region Laterality Modality Vascular N/A Ultrasound 05/13/2022 7:44 AM CDT Narrative 05/13/2022 9:39 AM CDT [address] [place] [address] Ankle Brachial Index Report Patient Name: MOSHE HARTLEY ?? : 1965 (57y ) ??Gender: F Study Date: 05/13/2022 7:44:00 AM Cd Reactor Operator Head: Order Provider: PHOENIX LOREDO Quality: Adequate Ref.Provider: PHOENIX LOREDO Procedures: Arterial Report: A bilateral extremities [...] Procedure Note Conrad Martinez MD - 05/13/[address] [place] [address] Ankle Brachial Index Report Patient Name: JT HARTLEYatient ID: [id number] : 1965 (57y ) Gender: FStudy Date: 05/13/2022 7:44:00 AM Order Provider: PHOENIX LOREDOQuality: Adequate Ref.Provider: PHOENIX LOREDO Procedures: Arterial Report: A bilateral extremities ankle/brachial index wasperformed. Indications: Claudication. Conclusions: 1. In the right lower extremity, the ankle brachial index is normal, ABI1.04, with triphasic wave form. 2. In the left lower extremity, the ankle brachial index is normal, ABI1.04, with biphasic wave form. Measurements: RightValueLeftValue Electronically Signed By: Conrad Martinez 2022-05-13 09:38:59 CDT us Phoenix Loredo MD [facility] PROCEDURES Final Result * Portable/Home Sleep Study (11/09/2021) Impressions Brianne Florez MD - 11/09/2021 HOME SLEEP APNEA TEST ?? HISTORY: Moshe Hartley is a 56 y.o. female who presents for Home sleep apnea test. (HSAT). Reason for sleep study: ??Snoring, excessive daytime sleepiness, palpitations Past medical history: ??Dyslipidemia, peripheral artery disease status post stent, obesity, asthma, gastroesophageal reflux disease Current medications: reviewed Hollis Sleepiness Score: 16 BMI: 30.72 ?? PROCEDURE: This is a single night diagnostic study. This Home Sleep apnea Test (HSAT) utilized an unattended FDA approved RedMed apnea link home air portable monitoring device investigating for obstructive sleep apnea. The patient was proved instruction of the device and application by the registered automation technologist at the [facility]. This test was performed without a office technologist in attendance. In this study, the following parameters were monitored: Misha-nasal airflow, snoring, chest respiratory effort, abdominal respiratory effort, body position, movement, oxygen saturation, and heart rate. Respiratory events are scored according to the criteria from The [place] [employer] (AASM) Manual for the scoring of sleep and associated events - version 2.6. ?? FINDINGS: The recorded bed time starts at 11:18 pm. The total recording duration is 8:07 hours. The respiratory events (RE) included 9 apneas and 29 hypopneas. The total Respiratory event index (BRITTANY) was 4.8/hour. Obstructive apnea index was 1.0, central apnea index was 0.1, mixed apnea index was 0.0. Lowest SpO2 was 87 % and time spent < 88% was 0:00hours. Oxygen desaturation index was 4.5. Patient spent 0:08 hours in supine and 7:44 hours in non-supine position. Average heart rate was 69/min, minimum heart rate was 49/min, and maximum heart rate was 84/min. ?? INTERPRETATION: This is an adequate quality Home Sleep apnea Test.??(HSAT) ?? 1. This home sleep apnea study (HSAT) is negative for obstructive sleep apnea. There was evidence of multiple airflow fluctuations that were concerning for the presence of increased number of respiratory effort related arousals (RERAs). However, home sleep study testing is limited by the lack of EEG. Hence, in-lab diagnostic sleep study is recommended for a proper evaluation. ?? RECOMMENDATIONS: ?? 1. An in-lab diagnostic study is recommended for proper evaluation. ? Limitations of the study: 1. A sleep EEG was not recorded; therefore, the actual amount of time spent in sleep, stages of sleep and respiratory events associated with arousals cannot be determined by this study. 2. All indexes are computed against monitoring time, not total sleep time. For this reason, the degree of severity may be underestimated ? * Please note: The severity of the sleep apnea may vary from night to night depending on body position during sleep, REM sleep and sleep efficiency. These factors should be taken into consideration.? Brianne Florez MD [facility] Sleep Medicine ?? Narrative Brianne Florez MD - 11/09/2021 Ocst is ready for review us Phoenix Loredo MD SLEEP CENTER ORDERABLES Final R esult documented in this encounter Visit Diagnoses Diagnosis PVD (peripheral vascular disease) (HCC)- Primary Unspecified peripheral vascular disease PVC (premature ventricular contraction) Other premature beats Bilateral carotid artery stenosis Occlusion and stenosis of carotid artery without mention of cerebral infarction Multiple-type hyperlipidemia Other and unspecified hyperlipidemia Atherosclerosis of ione arteries of extremities with intermittent claudication, bilateral legs (HCC) TROY (obstructive sleep apnea) Obstructive sleep apnea (adult) (pediatric) TROY (obstructive sleep apnea) Obstructive sleep apnea (adult) (pediatric) Atherosclerosis of ione arteries of extremities with intermittent claudication, bilateral legs (HCC) Encounter for screening colonoscopy documented in this encounter Care Teams Construction Consultant Relationship Specialty Start Date End Date Louis Harper [place] [address] [place] [address] PCP - General Family Medicine 09/23/21 11/22/23 Phoenix Loredo MD Consulting Physician Cardiology 01/04/19 [place] [address] [place] [address] Slate Trimmer Obstetrics and Gynecology 04/19/21 documented as of this encounter
--- OUTSIDE RECORDS SUMMARY | 2024-10-13 04:08 | XMS_ITS | Encounter Summary ---
Author Organization [facility] Address [address] [place] [address] Care Team Providers Care Utility Technician Name Role Phone Phoenix Loredo MD Unavailable [phone] Aylin Lundy MD Unavailable [phone] Harper Myers DO Primary Care Provider [phone] Encounter Details Date Type Department Care Team (Late st Contact Info) Description 10/15/2021 Telephone [place] [facility] Private [facility] [address] [facility] [address] [place] [address] Keturah Malik NP 2 [facility] [address] [place] [address] Social History Tobacco Use Types [...] on file Legal Sex Female 8:44 AM 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 INAL SUPERINTENDENT documented in this encounter Plan of Treatment Upcoming Encounters Date Type Department Care Team (Late st Contact Info) Description 02/04/2025 9:30 AM CDT Hospital Encounter [address] [address] Vic Gaines, DO [address] [address] 02/04/2025 9:30 AM CDT - 02/04/2025 10:00 AM CDT Surgery [address] [address] Vic Gaines, DO [address] [address] COLONOSCOPY Scheduled Procedures Name Priority Associated Diagnoses Date/Ti me COLONOSCOPY Encounter for screening colonoscopy 02/04/2025 9:30 AM CDT documented as of this encounter Visit Diagnoses Not on filedocumented in this encounter Care Teams Utility Technician Relationship Specialty [place] [address] [place] [address] PCP - General Family Medicine 09/23/21 11/22/23 Phoenix Loredo MD Consulting Physician Cardiology 01/04/19 Aylin Lundy MD [facility] [place] [address] [employer] Obstetrics and Gynecology 04/19/21 documented as of this encounter
--- OUTSIDE RECORDS SUMMARY | 2024-10-13 04:08 | XMS_ITS | Encounter Summary ---
Author Organization [facility] Address [address] [place] [address] Care Team Providers Care Leather Goods I Assembler Name Role Phone Phoenix Loredo MD Unavailable [phone] Aylin Lundy MD Unavailable [phone] Emerson Allen MD Primary Care Provider [phone] Encounter Details Date Type Department Care Team (Late st Contact Info) Description 09/10/2021 Telephone [facility] [address] [place] [address] Nila Dubois, RT Social History Tobacco Use [...] on file Legal Sex Female 8:44 AM ZIPPER SETTER Gender Identity Not on file Sexual Orientation Not on file documented as of this encounter Miscellaneous Notes * Telephone Encounter - Nila Dubois, RT - 09/10/2021 10:43 AM CST Appointment confirmed ER SETTER documented in this encounter Plan of Treatment Upcoming Encounters Date Type Department Care Team (Late st Contact Info) Description 02/04/2025 9:30 AM CDT Hospital Encounter [address] [address] Vic Gaines, DO 3 [facility] [address] [place] [address] 02/04/2025 9:30 AM CDT - 02/04/2025 10:00 AM CDT Surgery [address] [address] Vic Gaines, DO 3 [facility] [address] [place] [address] COLONOSCOPY Scheduled Procedures Name Priority Associated Diagnoses Date/Ti me COLONOSCOPY Encounter for screening colonoscopy 02/04/2025 9:30 AM CDT documented as of this encounter Visit Diagnoses Not on filedocumented in this encounter Care Teams Leather Goods I Assembler Relationship Specialty Start Date End Date Emerson Allen MD [address] [place] [address] PCP - General 08/02/21 09/16/21 Phoenix Loredo MD Consulting Physician Cardiology 01/04/19 [place] [address] [place] [address] Cryptanalyst Obstetrics and Gynecology 04/19/21 documented as of this encounter
--- OUTSIDE RECORDS SUMMARY | 2024-10-13 04:08 | XMS_ITS | Encounter Summary ---
Author Organization [facility] Address [address] [place] [address] Care Team Providers Care Sales Service Representative Name Role Phone Phoenix Loredo MD Unavailable [phone] Aylin Lundy MD Unavailable [phone] Celine Solano NP Primary Care Provider Encounter Details Date Type Department Care Team (Late st Contact Info) Description 09/17/2021 Telephone [facility] [address] [place] [address] Celine Solano NP [address] [facility] [address] [place] [address] Social History Tobacco Use Types [...] on file Legal Sex Female 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 Pt was instructed to contact the CC in [place] or [place] due to providers being out this afternoon. Pt agreed. AVER PICTURE documented in this encounter Plan of Treatment Upcoming Encounters Date Type Department Care Team (Late st Contact Info) Description 02/04/2025 9:30 AM CDT Hospital Encounter [address] [address] Vic Gaines, DO [address] [address] 02/04/2025 9:30 AM CDT - 02/04/2025 10:00 AM CDT Surgery [address] [address] Vic Gaines, DO [address] [address] COLONOSCOPY Scheduled Procedures Name Priority Associated Diagnoses Date/Ti me COLONOSCOPY Encounter for screening colonoscopy 02/04/2025 9:30 AM CDT documented as of this encounter Visit Diagnoses Not on filedocumented in this encounter Care Teams Sales Service Representative Relationship Specialty [place] [address] [place] [address] PCP - General Family Medicine 09/17/21 09/22/21 Phoenix Loredo MD Consulting Physician Cardiology 01/04/19 [place] [address] [place] [address] Secondary Social Studies Teacher Obstetrics and Gynecology 04/19/21 documented as of this encounter
--- OUTSIDE RECORDS SUMMARY | 2024-10-13 04:08 | XMS_ITS | Encounter Summary ---
Author Organization [facility] Address [address] [place] [address] Care Team Providers Care Floor Director Name Role Phone Leticia Loredo MD Unavailable [phone] Aylin Lundy MD Unavailable [phone] Harper Myers DO Primary Care Provider [phone] Reason for Referral * Cardiology (Routine) - Closed Specialty Diagnoses / Procedures Referred By Contac t Referred To Contact Diagnoses Multiple-type hyperlipidemia Procedures Transthoracic Echo Complete W Doppler/CF Leticia Loredo MD Phone: tel: fax: [address] [address] Referral ID Status Reason Start Date Expiration Date Visits Re quested Visits Authorized [id number] Closed 09/09/2021 10/09/2022 1 1 TH AND SAFETY REPRESENTATIVE Reason for Visit * Cardiology (Routine) - Closed Specialty Diagnoses / Procedures Referred By Contac t Referred To Contact Diagnoses Multiple-type hyperlipidemia Procedures Transthoracic Echo Complete W Doppler/CF Leticia Loredo MD Phone: tel: fax: [address] [address] Referral ID Status Reason Start Date Expiration Date Visits Re quested Visits Authorized [id number] Closed 09/09/2021 10/09/2022 1 1 Encounter Details Date Type Department Care Team (Latest Contact Info) Description 09/30/2021 7:23 AM HEALTH AND SAFETY REPRESENTATIVE - 09/30/2021 11:59 PM HEALTH AND SAFETY REPRESENTATIVE Hospital Encounter [facility] Cardiology 1 [place] [address] Leticia Loredo MD [address] [address] Multiple-type hyperlipidemia Discharge Disposition: Discharge to home or [...] on file Legal Sex Female 8:44 AM HEALTH AND SAFETY REPRESENTATIVE Gender Identity Not on file Sexual Orientation [...] (two) times a day 180 tablet 3 09/14/20 21 022 fluticasone propionate (FLONASE) 50 mcg/actuation nasal spray [...] doses in 24 hours. 9 tablet 3 09/14/20 21 022 documented as of this encounter Discharge Disposition Disposition Code Departure Means Destination Discharge to home or self care documented in this encounter Plan of Treatment Upcoming Encounters Date Type Department Care Team (Late st Contact Info) Description 02/04/2025 9:30 AM CDT Hospital Encounter [address] [address] Vic Gaines, DO 3 [facility] [address] [place] [address] 02/04/2025 9:30 AM CDT - 02/04/2025 10:00 AM CDT Surgery [address] [address] Vic Gaines, DO 3 [facility] [address] [place] [address] COLONOSCOPY Scheduled Procedures Name Priority Associated Diagnoses Date/Ti me COLONOSCOPY Encounter for screening colonoscopy 02/04/2025 9:30 AM CDT documented as of this encounter Procedures Procedure Name Priority Date/Time Associated Diagnosis Comments TRANSTHORACIC ECHO (TTE) COMPLETE W DOPPLER/CF WO CONTRAST Routine 09/30/2021 7:54 AM HEALTH AND SAFETY REPRESENTATIVE Multiple-type hyperlipidemia documented in this encounter Results * TRANSTHORACIC ECHO (TTE) COMPLETE W DOPPLER/CF WO CONTRAST (09/30/2021 7:54 AM HEALTH AND SAFETY REPRESENTATIVE) Anatomical Region Laterality Modality Ultrasound 09/30/2021 7:30 AM HEALTH AND SAFETY REPRESENTATIVE Narrative 09/30/2021 9:29 AM HEALTH AND SAFETY REPRESENTATIVE [address] [address] Echocardiogram Report Patient Name: MOSHE HARTLEY H : 1965 Study Date: 09/30/2021 7:30:32 AM Gender: F Tech: SOLOMON Location: Echo Lab 1 Ref.Provider: LETICIA LOREDO Height(Cm): 155 BSA: 1.77 Weight(Kg): 72.6 Quality: Adequate Order Provider: LETICIA LOREDO Procedures: Echocardiographic Report: Transthoracic echocardiogram with complete 2D, M-Mode, and color Doppler examination. Indications: Multiple-type hyperlipidemia. Measurements: 2D/M Mode ?Doppler ? Measurement ?Value ?Normal Range ? Measurement ?Value ?Normal Range ? EF Teich MM ?57.0 ? [ 55.0 - 70.0 ] percent ?BASHIR Vmax ? 2.57 ? [ 2.00 - 4.00 ] cm2 ? LVIDd MM ? 4.50 ? [ 3.90 - 5.30 ] cm ? AV Mean PG ? 3 ?[ 2 - 4 ] mmHg ? LVIDs MM ? 3.10 ? [ 2.30 - 3.90 ] cm ? AV Peak Juan Antonio ?1.13 ? [ 1.00 - 1.70 ] m/s ? LVPWd MM ? 1.20 ? [ 0.60 - 1.00 ] cm ? AV VTI ? 23.71 ?cm ? IVSd MM ?1.10 ? [ 0.60 - 0.90 ] cm ? LVOT Diam ?2.08 ? [ 1.70 - 2.10 ] cm ? LA Dimension 2D ?3.68 ? [ 2.70 - 3.80 ] cm ? LVOT Peak Juan Antonio ?0.85 ? [ 0.70 - 1.10 ] m/s ? AoR Diam MM ?2.83 ? [ 2.60 - 3.70 ] cm ? LVOT VTI ? 16.24 ?[ 20.00 - 30.00 ] cm ? ACS MM ? 1.76 ? cm ? MV E Peak Juan Antonio ?0.60 ? [ 0.60 - 1.30 ] m/s ? MV A Peak Juan Antonio ?0.66 ? [ 1.00 - 1.20 ] m/s ? MV Mean PG ? 1 ?[ <= 5 ] mmHg ? MV PHT ? 60 ? [ 20 - 100 ] msec ? MVA ?3.70 ? MV Decel Time ?206 ?[ 104 - 258 ] msec ? PV Peak Juan Antonio ?0.77 ? [ 0.40 - 0.80 ] m/s ? TR Peak Juan Antonio ?1.70 ? [ 1.00 - 2.80 ] m/s ? TR Peak PG ? 12 ? mmHg ? RVSP ? 22.00 ?[ 10.00 - 36.00 ] mmHg ? E' ? 0.07 ? E/E' ? 8.32 ? PA Pressure ?12.00 ?[ 10.00 - 36.00 ] mmHg ? Findings: Atrial Septum: Normal atrial septum. Left Ventricle: Normal left ventricular systolic function with no focal wall motion abnormalities. Normal left ventricular size. Normal left ventricular wall thickness. Normal left ventricular diastolic function. Ejection fraction is measured at 67 %. Left Atrium: The left atrium is normal in size. Right Ventricle: Normal right ventricular size. Normal right ventricular systolic function. Right Atrium: The right atrium is normal in size. Aortic Valve: Normal structure of the aortic valve. Mitral Valve: Normal structure of the mitral valve. Pulmonic Valve: Normal structure of the pulmonic valve. Tricuspid Valve: Normal right ventricular systolic pressure. Estimated peak RVSP is 25-30 mmHg. Mild tricuspid regurgitation. Pericardium: Normal pericardium with no significant pericardial effusion. There is an anterior echo free space consistent with epicardial fat pad. Aorta: Normal aortic root. Sinus of Valsalva is normal. Aortic arch is normal. Descending aorta is normal. IVC: Normal size and normal respiratory collapse consistent with normal right atrial pressure (<5 mmHg). Pulmonary Artery: Normal pulmonary artery size. Conclusions: Normal left ventricular systolic function with no focal wall motion abnormalities. Normal left ventricular size. Normal left ventricular wall thickness. Normal left ventricular diastolic function. Ejection fraction is measured at 67 %. Normal right ventricular systolic pressure. Estimated peak RVSP is 25-30 mmHg. Mild tricuspid regurgitation. There is an anterior echo free space consistent with epicardial fat pad. Electronically Signed By: Leticia Loredo MD 2021-09-30 09:29:36 HEALTH AND SAFETY REPRESENTATIVE Procedure Note Leticia Loredo MD - 09/30/[address] [address] Echocardiogram Report Patient Name: MOSHE HARTLEY HPatient ID: [id number] : [id number] Date: 09/30/2021 7:30:32 AM Gender: FAccession #: [id number] Tech: JCLocation: Echo Lab 1 Ref.Provider: SAY LOREDOeight(Cm): 155 BSA: 1.77Weight(Kg): 72.6 Quality: AdequateOrder Provider: LETICIA LOREDO Procedures: Echocardiographic Report: Transthoracic echocardiogram with complete 2D, M-Mode, and color Dopplerexamination. Indications: Multiple-type hyperlipidemia. Measurements: 2D/M Mode Doppler Measurement Value Normal Range MeasurementValue Normal Range EF Teich MM 57.0 [ 55.0 - 70.0 ] percent BASHIR Vmax2.57 [ 2.00 - 4.00 ] cm2 LVIDd MM 4.50 [ 3.90 - 5.30 ] cm AV Mean PG 3[ 2 - 4 ] mmHg LVIDs MM 3.10 [ 2.30 - 3.90 ] cm AV Peak Vel1.13 [ 1.00 - 1.70 ] m/s LVPWd MM 1.20 [ 0.60 - 1.00 ] cm AV VTI23.71 cm IVSd MM 1.10 [ 0.60 - 0.90 ] cm LVOT Diam2.08 [ 1.70 - 2.10 ] cm LA Dimension 2D 3.68 [ 2.70 - 3.80 ] cm LVOT Peak Vel0.85 [ 0.70 - 1.10 ] m/s AoR Diam MM 2.83 [ 2.60 - 3.70 ] cm LVOT VTI16.24 [ 20.00 - 30.00 ] cm ACS MM 1.76 cm MV E Peak Vel0.60 [ 0.60 - 1.30 ] m/s MV A Peak Vel0.66 [ 1.00 - 1.20 ] m/s MV Mean PG 1[ <= 5 ] mmHg MV PHT 60[ 20 - 100 ] msec MVA3.70 MV Decel Eaxm513 [ 104 - 258 ] msec PV Peak Vel0.77 [ 0.40 - 0.80 ] m/s TR Peak Vel1.70 [ 1.00 - 2.80 ] m/s TR Peak PG 12mmHg RVSP22.00 [ 10.00 - 36.00 ] mmHg E'0.07 E/E'8.32 PA Wxbsumed32.00 [ 10.00 - 36.00 ] mmHg Findings: Atrial Septum: Normal atrial septum. Left Ventricle: Normal left ventricular systolic function with no focal wall motionabnormalities. Normal left ventricular size. Normal left ventricular wall thickness. Normal leftventricular diastolic function. Ejection fraction is measured at 67 %. Left Atrium: The left atrium is normal in size. Right Ventricle: Normal right ventricular size. Normal right ventricular systolicfunction. Right Atrium: The right atrium is normal in size. Aortic Valve: Normal structure of the aortic valve. Mitral Valve: Normal structure of the mitral valve. Pulmonic Valve: Normal structure of the pulmonic valve. Tricuspid Valve: Normal right ventricular systolic pressure. Estimated peak RVSP is 25-30mmHg. Mild tricuspid regurgitation. Pericardium: Normal pericardium with no significant pericardial effusion. There is ananterior echo free space consistent with epicardial fat pad. Aorta: Normal aortic root. Sinus of Valsalva is normal. Aortic arch is normal.Descending aorta is normal. IVC: Normal size and normal respiratory collapse consistent with normal rightatrial pressure (<5 mmHg). Pulmonary Artery: Normal pulmonary artery size. Conclusions: Normal left ventricular systolic function with no focal wall motionabnormalities. Normal left ventricular size. Normal left ventricular wall thickness. Normal leftventricular diastolic function. Ejection fraction is measured at 67 %. Normal right ventricular systolic pressure. Estimated peak RVSP is 25-30mmHg. Mild tricuspid regurgitation. There is an anterior echo free space consistent with epicardial fat pad. Electronically Signed By: Leticia Loredo MD 2021-09-30 09:29:36 HEALTH AND SAFETY REPRESENTATIVE Leticia Loredo MD CV ECHO PROCEDURES Final Result documented in this encounter Visit Diagnoses Diagnosis Multiple-type hyperlipidemia Other and unspecified hyperlipidemia Encounter for screening colonoscopy documented in this encounter Care Teams Floor Director Relationship Specialty [place] [address] [place] [address] PCP - General Family Medicine 09/23/21 11/22/23 Leticia Loredo MD Consulting Physician Cardiology 01/04/19 Aylin Lundy MD [address] [place] [address] Buyer Obstetrics and Gynecology 04/19/21 documented as of this encounter
--- OUTSIDE RECORDS SUMMARY | 2024-10-13 04:08 | XMS_ITS | Encounter Summary ---
Author Organization [facility] Address [address] [facility] [address] [place] [address] Care Team Providers Care Rn Triage Name Role Phone Phoenix Loredo MD Unavailable [phone] Aylin Lundy MD Unavailable Harper Myers DO Primary Care Provider [phone] Encounter Details Date Type Department Care Team (Late st Contact Info) Description 09/30/2021 Telephone [facility] Nurse [address] [facility] [address] [place] [address] Phoenix Loredo MD [address] [place] [address] [address] [place] [address] Social History Tobacco Use Types [...] on file 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 OR NAVAL PARACHUTIST documented in this encounter Plan of Treatment Upcoming Encounters Date Type Department Care Team (Late st Contact Info) Description 02/04/2025 9:30 AM CDT Hospital Encounter [address] [address] Vic Gaines, DO [address] [address] 02/04/2025 9:30 AM CDT - 02/04/2025 10:00 AM CDT Surgery [address] [address] Vic Gaines, DO [address] [address] COLONOSCOPY Scheduled Procedures Name Priority Associated Diagnoses Date/Ti me COLONOSCOPY Encounter for screening colonoscopy 02/04/2025 9:30 AM CDT documented as of this encounter Visit Diagnoses Not on filedocumented in this encounter Care Teams Rn Triage Relationship Specialty [place] [address] [place] [address] PCP - General Family Medicine 09/23/21 11/22/23 Phoenix Loredo MD Consulting Physician Cardiology 01/04/19 [place] [address] [place] [address] Turret Lathe Machinist Obstetrics and Gynecology 04/19/21 documented as of this encounter
--- OUTSIDE RECORDS SUMMARY | 2024-10-13 04:08 | XMS_ITS | Encounter Summary ---
Author Organization [facility] Healthcare Address [address] [place] [address] Care Team Providers Care Enchilada Maker Name Role Phone Phoenix Loredo MD Unavailable [phone] Aylin Lundy MD Unavailable [phone] Harper Myers DO Primary Care Provider [phone] Encounter Details Date Type Department Care Team (Late st Contact Info) Description 10/15/2021 8:30 AM EMS MANAGER Lab [address] [address] Emerson Allen MD [address] [facility] [address] [place] [address] Celine Solano NP [address] [facility] [address] [place] [address] Mixed hyperlipidemia Discharge Disposition: Discharge to home [...] on file Legal Sex Female 8:44 AM EMS MANAGER Gender Identity Not on file Sexual Orientation Not on file documented as of this encounter Discharge Disposition Disposition Code Departure Means Destination Discharge to home or self care documented in this encounter Miscellaneous Notes * Result Encounter Note - Mary Collins MA - 10/15/2021 9:46 AM EMS MANAGER Two Patient identifiers were used. Mirtha has been informed of the results and will continue with treatment as suggested. Patient verbalizes understanding. No further questions. MANAGER * Result Encounter Note - Mary Collins MA - 10/15/2021 9:38 AM EMS MANAGER Attempted to contact Mirtha??with no answer. LMOM to contact the office back at [phone] MANAGER documented in this encounter Plan of Treatment Upcoming Encounters Date Type Department Care Team (Late st Contact Info) Description 02/04/2025 9:30 AM CDT Hospital Encounter [address] [address] Vic Gaines, DO 3 [facility] [address] [place] [address] 02/04/2025 9:30 AM CDT - 02/04/2025 10:00 AM CDT Surgery [address] [address] Vic Gaines, DO 3 [facility] [address] [place] [address] COLONOSCOPY Scheduled Procedures Name Priority Associated Diagnoses Date/Ti me COLONOSCOPY Encounter for screening colonoscopy 02/04/2025 9:30 AM CDT documented as of this encounter Procedures Procedure Name Priority Date/Time Associated Diagnosis Comments EGFR Routine 10/15/2021 8:13 AM EMS MANAGER Mixed hyperlipidemia DIFFERENTIAL AUTO Routine 10/15/2021 8:1 3 AM EMS MANAGER Mixed hyperlipidemia CBC WITH AUTO DIFFERENTIAL Routine 10/15/2021 8:13 AM EMS MANAGER Mixed hyperlipidemia LIPID PANEL Routine 10/15/2021 8:13 AM EMS MANAGER Mixed hyperlipidemia COMPREHENSIVE METABOLIC PANEL Routine 10/15/2021 8:13 AM EMS MANAGER Mixed hyperlipidemia documented in this encounter Results * eGFR (10/15/2021 8:13 AM EMS MANAGER) eGFR 78 mL/min/1. 73 m2 [facility] ([place]) Comment: [...] interpretive data was last reviewed 2021. Blood 10/15/2021 8:13 AM EMS MANAGER 10/15/2021 8:56 AM EMS MANAGER us Celine Solano BEATER ENGINEER HELPER LAB BLOOD ORDERABLES Final Resul t [facility] ([place]) 1 [facility] Department [place] [address] * Differential, auto (10/15/2021 8:13 AM EMS MANAGER) Neutrophil abs 5.3 1.7 - 6.5 K/cumm [facility] ([place]) Imm gran abs 0.0 0.0 - 0.1 K/cumm [facility] ([place]) Lymphocyte abs 2.4 0.8 - 3.3 K/cumm [facility] ([place]) Monocyte abs 0.6 0.2 - 0.8 K/cumm [facility] ([place]) Eosinophil abs 0.1 0.0 - 0.5 K/cumm [facility] ([place]) Basophil abs 0.0 0.0 - 0.1 K/cumm [facility] ([place]) Neutrophil pct 62.2 % [facility] ([place]) Comment: Interpretive [...] was last revised on 2018. Lymphocyte pct 28.3 % [facility] ([place]) Comment: Interpretive [...] was last revised on 2018. Eosinophil pct 1.1 % [facility] ([place]) Comment: Interpretive Data Percent cell count reference ranges are not reported, since discordance with absolute values may lead to misinterpretation of CBC data. Current Interpretive Data was last revised on 2018. Basophil pct 0.5 % [facility] ([place]) Comment: Interpretive Data Percent cell count reference ranges are not reported, since discordance with absolute values may lead to misinterpretation of CBC data. Current Interpretive Data was last revised on 2018. Blood 10/15/2021 8:13 AM EMS MANAGER 10/15/2021 8:56 AM EMS MANAGER us Celine Solano NP LAB BLOOD ORDERABLES Final Resul t [facility] ([place]) [facility] [place] [address] * (ABNORMAL) CBC with auto differential (10/15/2021 8:13 AM EMS MANAGER) WBC 8.5 3.8 - 9.9 K/cumm [facility] ([place]) Hgb 15.3 11.9 - 15.5 g/dL [facility] ([place]) Hct 45.7(H) 35.6 - 45.5 % [facility] ([place]) Plt 224 150 - 400 K/cumm [facility] ([place]) MPV 10.8 9.1 - 12.3 fL [facility] ([place]) RBC 4.96 3.90 - 5.20 M/cumm [facility] ([place]) MCV 92.1 81.3 - 96.4 fL [facility] ([place]) MCH 30.8 27.1 - 33.3 pg [facility] ([place]) MCHC 33.5 32.3 - 35.7 g/dL [facility] ([place]) RDW CV 13.0 11.1 - 14.9 % [facility] ([place]) RDW SD 44.3 35.7 - 48.1 fL [facility] ([place]) NRBC abs 0.00 0.00 - 0.01 K/cumm [facility] ([place]) Blood 10/15/2021 8:13 AM EMS MANAGER 10/15/2021 8:56 AM EMS MANAGER us Celine Solano NP LAB BLOOD ORDERABLES Final Resul t [facility] ([place]) [facility] [place] [address] * Comprehensive metabolic panel (10/15/2021 8:13 AM EMS MANAGER) Sodium 137 135 - 145 mmol/L [facility] ([place]) Potassium, pl 4.7 3.3 - 4.9 mmol/L [facility] ([place]) Chloride 102 97 - 110 mmol/L [facility]) CO2 26 22 - 32 mmol/L [facility] ([place]) Anion gap 9 2 - 15 mmol/L [facility]) BUN 12 8 - 25 mg/dL [facility] ([place]) Creatinine 0.87 0.60 - 1.10 mg/dL [facility] ([place]) Glucose 109 70 - 199 mg/dL [facility] ([place]) [...] interpretive data was last revised 2017. Calcium 9.0 8.5 - 10.3 mg/dL [facility] ([place]) Bilirubin, total 0.4 0.1 - 1.2 mg/dL [facility] ([place]) Protein, pl 6.9 6.5 - 8.5 g/dL [facility] ([place]) Albumin 4.3 3.5 - 5.0 g/dL [facility] ([place]) Alk phos 103 40 - 130 Units/L [facility] ([place]) ALT 23 7 - 45 Units/L [facility] ([place]) AST 20 10 - 45 Units/L [facility] ([place]) Blood 10/15/2021 8:13 AM EMS MANAGER 10/15/2021 8:56 AM EMS MANAGER us Celine Cox BEATER ENGINEER HELPER LAB BLOOD ORDERABLES Final Resul t [facility] ([place]) 1 [facility] Department [place] [address] * (ABNORMAL) Lipid panel (10/15/2021 8:13 AM EMS MANAGER) Cholesterol 155 30 - 199 mg/dL [facility] ([place]) [...] Data was last revised on 2018. Triglycerides 170(H) <=149 mg/dL [facility] ([place]) Comment: Interpretive [...] Data was last revised on 2018. HDL 36(L) >=40 mg/dL [facility] ([place]) Comment: Interpretive Data Ages < or [...] was last revised on 2018. LDL, calculated 85 <=129 mg/dL [facility] ([place]) Comment: Interpretive Data Ages < or [...] was last revised on 2018. Non-HDL Cholesterol 119 mg/dL [facility] ([place]) Comment: Interpretive Data Ages < or [...] Chol/HDL ratio 4 [facility] ([place]) Blood 10/15/2021 8:13 AM EMS MANAGER 10/15/2021 8:56 AM EMS MANAGER us Celine Solano BEATER ENGINEER HELPER LAB BLOOD ORDERABLES Final Resul t [facility] ([place]) 1 [facility] Department [place] [address] documented in this encounter Visit Diagnoses Diagnosis Mixed hyperlipidemia Encounter for screening colonoscopy documented in this encounter Care Teams Enchilada Maker Relationship Specialty [place] [address] [place] [address] PCP - General Family Medicine 09/23/21 11/22/23 Phoenix Loredo MD Consulting Physician Cardiology 01/04/19 [place] [address] [place] [address] Farm Equipment Technician Obstetrics and Gynecology 04/19/21 documented as of this encounter
--- OUTSIDE RECORDS SUMMARY | 2024-10-13 04:08 | XMS_ITS | Encounter Summary ---
Author Organization [facility] Address [address] [place] [address] Care Team Providers Care Glue Mill Operator Name Role Phone Phoenix Loredo MD Unavailable [phone] Aylin Lundy MD Unavailable [phone] Harper Myers DO Primary Care Provider [phone] Encounter Details Date Type Department Care Team (Late st Contact Info) Description 09/24/2021 Telephone [facility] [address] [place] [address] Harper Myers DO [address] [place] [address] Social History Tobacco Use Types Packs/Day Years [...] on file Legal Sex Female 8:44 AM TRAVEL AGENT Gender Identity Not on file Sexual Orientation Not on file documented as of this encounter Miscellaneous Notes * Telephone Encounter - Harper Myers DO - 09/24/2021 12:48 PM TRAVEL AGENT Called patient , reiterated the fact that I needed to see her, take a history and exam her before determining what the next steps would be. Patient has not yet established care with me. I recommendedshe come in sooner or go to nearest ER if she was still having symptoms. She informed me that it only happened that day, and since then, her urine has been clear. She stated that she has no symptoms now, and would wait to come in at her jorgito. Appointment time. EL AGENT * Telephone Encounter - Harper Myers DO - 09/24/2021 12:48 PM TRAVEL AGENT ----- Message from Julia Rossi MA sent at 09/24/2021 12:30 PM TRAVEL AGENT ----- Regarding: Blood in urine Spoke with patient she states she is just frustrated because when this did happen she was unable tosee a doctor due to you guys being out on Monday afternoons. She said she is going to wait until her appt on the to discuss this with you further . She said if she sees you now or then it will not change the steps you take in trying to figure out the reasoning for the blood in her urine since it has already been tested. She was very upset and said the next step would be a CT which she does not want to wait to get but will not come in earlier to see you either. ----- Message ----- From: Harper Myers DO Sent: 09/24/2021 12:00 PM TRAVEL AGENT To: Julia Rossi MA Subject: Blood in urine I'm not sure, will need a detailed history of present condition before I'm able to help her figure it out. If it occurs again, she should move her appointment up. I would suggest she come in sooner rather than later. ----- Message ----- From: Julia Rossi MA Sent: 09/24/2021 11:48 AM TRAVEL AGENT To: Harper Myers DO Subject: Blood in urine Patient has an apt with you on 10/29/21. She did not see any point of trying to move it closer. All she is wanting to know is the cause for the bleeding which she feels will not happen by just talkingto her in a visit. ----- Message ----- From: Harper Myers DO Sent: 09/23/2021 4:22 PM TRAVEL AGENT To: Julia Rossi MA Subject: Blood in urine Please jorgito for an office visit, I have never seen her, she was a [facility] patient. Reason for visit: gross hematuria ----- Message ----- From: Urmila Franks MA Sent: 09/23/2021 1:55 PM TRAVEL AGENT To: Harper Myers DO Subject: Blood in urine Dr. Myers, please review [place] message. ----- Message ----- From: Mirtha Cherry Sent: 09/23/2021 1:53 PM TRAVEL AGENT To: Bjchad Carmona [facility] Subject: Blood in urine On September 17 around 11:00 am I experience bright red blood in urine. I had no symptoms of UTI, no fever, no pain when urinating or in back. No DrChamp was available and I was referred to [facility]. I saw Roxana Maria. Urine sample was brownish red at that time with no bacteria. Sample was sent for culture and still no bacteria. I do not have a history of UTI or blood in urine. What is the next step to diagnose the reason for blood in urine and can it be scheduled? Thank you EL AGENT documented in this encounter Plan of Treatment Upcoming Encounters Date Type Department Care Team (Late st Contact Info) Description 02/04/2025 9:30 AM CDT Hospital Encounter [facility] [address] [place] [address] Vic Gaines DO 3 [facility] [address] [place] [address] 02/04/2025 9:30 AM CDT - 02/04/2025 10:00 AM CDT Surgery [facility] [place] [address] [place] [address] Vic Gaines, DO 3 [facility] [address] [place] [address] COLONOSCOPY Scheduled Procedures Name Priority Associated Diagnoses Date/Ti me COLONOSCOPY Encounter for screening colonoscopy 02/04/2025 9:30 AM CDT documented as of this encounter Visit Diagnoses Not on filedocumented in this encounter Care Teams Glue Mill Operator Relationship Specialty Start Date End Date Louis Harper DO [address] [address] [place] [address] PCP - General Family Medicine 09/23/21 11/22/23 Phoenix Loredo MD Consulting Physician Cardiology 01/04/19 [place] [address] [place] [address] Dining Room Captain Obstetrics and Gynecology 04/19/21 documented as of this encounter
--- OUTSIDE RECORDS SUMMARY | 2024-10-13 04:08 | XMS_ITS | Encounter Summary ---
Author Organization [facility] Healthcare Address [address] [place] [address] Care Team Providers Care Digital Measurement Advisor Name Role Phone Leticia Loredo MD Unavailable [phone] Aylin Lundy MD Unavailable [phone] Harper Myers DO Primary Care Provider [phone] Reason for Referral * Diagnostic Imaging (Routine) - Closed Specialty Diagnoses / Procedures Referred By Contac t Referred To Contact Diagnoses Multiple-type hyperlipidemia Procedures NM MPI SPECT (Rest and/or Stress) Multiple Studies Leticia Loredo MD Phone: tel: fax: [address] [address] Referral ID Status Reason Start Date Expiration Date Visits Re quested Visits Authorized [id number] Closed 09/09/2021 10/09/2022 1 1 AL CROP DUSTER Reason for Visit * Diagnostic Imaging (Routine) - Closed Specialty Diagnoses / Procedures Referred By Contac t Referred To Contact Diagnoses Multiple-type hyperlipidemia Procedures NM MPI SPECT (Rest and/or Stress) Multiple Studies Leticia Loredo MD Phone: tel: fax: [address] [address] Referral ID Status Reason Start Date Expiration Date Visits Re quested Visits Authorized [id number] Closed 09/09/2021 10/09/2022 1 1 Encounter Details Date Type Department Care Team (Latest Contact Info) Description 09/30/2021 7:16 AM AERIAL CROP DUSTER - 09/30/2021 7:22 AM AERIAL CROP DUSTER Hospital Encounter [facility] [address] [place] [address] Leticia Loredo MD [address] [address] Multiple-type hyperlipidemia Discharge Disposition: Discharge to home [...] on file Legal Sex Female 8:44 AM AERIAL CROP DUSTER Gender Identity Not on file Sexual Orientation [...] 02/04/2025 9:30 AM CDT Hospital Encounter [address] [address] Vic Gaines, DO 3 [facility] [address] [place] [address] 02/04/2025 9:30 AM CDT - 02/04/2025 10:00 AM CDT Surgery [address] [address] Vic Gaines, DO 3 [facility] [address] [place] [address] COLONOSCOPY Scheduled Procedures Name Priority Associated Diagnoses Date/Ti me COLONOSCOPY Encounter for screening colonoscopy 02/04/2025 9:30 AM CDT documented as of this encounter Procedures Procedure Name Priority Date/Time Associated Diagnosis Comments NM MPI SPECT (REST AND/OR STRESS) MULTIPLE STUDIES Schedule Routine, Read Routine (OP Routine) 09/30/2021 8:19 AM AERIAL CROP DUSTER Multiple-type hyperlipidemia STRESS TEST FOR DUAL READ Schedule Routine, Read Routine (OP Routine) 09/30/2021 8:19 AM AERIAL CROP DUSTER Multiple-type hyperlipidemia documented in this encounter Results * Stress Test for Myocardial Perfusion (09/30/2021 8:19 AM AERIAL CROP DUSTER) Anatomical Region Laterality Modality Nuclear Medicine 09/30/2021 8:30 AM AERIAL CROP DUSTER Narrative 09/30/2021 9:38 AM AERIAL CROP DUSTER [address] [address] MPI ECG Report Patient Name: ODILIAMOSHE H : 1965 Study Date: 09/30/2021 8:30:00 AM Gender: F Tech: ubaldo beatty Ref.Provider: LETICIA LOREDO Height(Cm): 155 BSA: Weight(Kg): 160Heart Rate: 139 Order Provider: LETICIA LOREDO Procedures: Exercise SPECT Report.: Myocardial Perfusion Imaging at rest and post exercise. Indications: Chest Pain. Findings: Procedure Data: Exercise Time: 06:31. Resting HR 74 bpm. Peak HR: 143 bpm. Predicted Maximal HR 163 bpm. Target HR: 139 bpm. Percent Max Predicted HR Achieved: 88 %. Baseline BP: 120/76. Peak BP: 185/84. METS achieved: 7.9. Rate-Pressure Product: 68718 BPM*mmHg. Performed By: Ubaldo Beatty. Reason for Termination: Fatigue. Dyspnea. THR achieved. Leg fatigue. Patient request. Resting ECG: Normal sinus rhythm. Poor R-wave progression anteriorly, cannot rule out anterior ND. Post ECG: Findings are borderline/equivocal for ischemia. Arrhythmia: Frequent PVCs. Target HR Achieved: Target heart rate was achieved. Conclusions: 1. Adequate stress test in regards to heart rate. Good exercise tolerance for age 7.9 Mets. 2. No exercise induced chest pain. 3. Maximal exercise ECG that is borderline positive for ischemia with upsloping inferolateral ST segment depressions that persisted into recovery. 4. Frequent PVCs. 5. Nuclear images are pending and they will be reported separately. Electronically Signed By: Leticia Loredo MD 2021-09-30 09:38:07 AERIAL CROP DUSTER Procedure Note Leticia Loredo MD - 09/30/2021 [place] [address] MPI ECG Report Patient Name: MOSHE HARTLEY HPatient ID: [id number] : [id number] Date: 09/30/2021 8:30:00 AM Gender: FAccession #: [id number] Tech: ubaldo Mayo.Provider: LETICIA LOREDO Height(Cm): 155BSA: Weight(Kg): 160Heart Rate: 139 Order Provider: LETICIA LOREDO Procedures: Exercise SPECT Report.: Myocardial Perfusion Imaging at rest and post exercise. Indications: Chest Pain. Findings: Procedure Data: Exercise Time: 06:31. Resting HR 74 bpm. Peak HR: 143 bpm. PredictedMaximal HR 163 bpm. Target HR: 139 bpm. Percent Max Predicted HR Achieved: 88 %. Baseline BP:120/76. Peak BP: 185/84. METS achieved: 7.9. Rate-Pressure Product: 87530 BPM*mmHg. Performed By: Ubaldo Beatty. Reason for Termination: Fatigue. Dyspnea. THR achieved. Leg fatigue. Patient request. Resting ECG: Normal sinus rhythm. Poor R-wave progression anteriorly, cannot rule outanterior ND. Post ECG: Findings are borderline/equivocal for ischemia. Arrhythmia: Frequent PVCs. Target HR Achieved: Target heart rate was achieved. Conclusions: 1. Adequate stress test in regards to heart rate. Good exercise tolerancefor age 7.9 Mets. 2. No exercise induced chest pain. 3. Maximal exercise ECG that is borderline positive for ischemia withupsloping inferolateral ST segment depressions that persisted into recovery. 4. Frequent PVCs. 5. Nuclear images are pending and they will be reported separately. Electronically Signed By: Leticia Loredo MD 2021-09-30 09:38:07 AERIAL CROP DUSTER us Leticia Loredo MD CV STRESS PROCEDURES Final Resu lt * NM MPI SPECT (Rest and/or Stress) Multiple Studies (09/30/2021 8:19 AM AERIAL CROP DUSTER) Anatomical Region Laterality Modality Body N/A Nuclear Medicine 09/30/2021 7:38 AM AERIAL CROP DUSTER Narrative 09/30/2021 11:39 AM AERIAL CROP DUSTER [address] [address] MPI Report Patient Name: MOSHE HARTLEY H : 1965 Study Date: 2021-09-30 7:38:58 AM Gender: F Tech: Ref.Provider: LETICIA LOREDO Height(Cm): BSA: Weight(Kg): Order Provider: LETICIA LOREDO Procedures: Exercise SPECT Report.: Myocardial Perfusion Imaging at rest and post exercise. Indications: Chest Pain. Findings: Procedure Data: Sestamibi injected at rest was 10.7 millicuries. Sestamibi injected at peak exercise was 31.6 millicuries. Peak HR: 143 bpm. Predicted Maximal HR 163 bpm. Percent Max Predicted HR Achieved: 87.73 %. Perfusion: Normal perfusion imaging. LV Function: Global left ventricular function is normal. Left ventricular ejection fraction is 50 %. Conclusions: 1. Negative myocardial perfusion imaging without infarct or ischemia. 2. Normal gated spect study with Ejection Fraction of 50%. Electronically Signed By: Jonathan Solorio MD, [facility] 2021-09-30 11:39:13 AERIAL CROP DUSTER Procedure Note Jonathan Solorio MD - 09/30/[address] [address] MPI Report Patient Name: MOSHE HARTLEY HPatient ID: [id number] : [id number] Date: 2021-09-30 7:38:58 AM Gender: FAccession #: [id number] Tech: Ref.Provider: LETICIA LOREDO Height(Cm): BSA: Weight(Kg): Order Provider: LETICIA LOREDO Procedures: Exercise SPECT Report.: Myocardial Perfusion Imaging at rest and post exercise. Indications: Chest Pain. Findings: Procedure Data: Sestamibi injected at rest was 10.7 millicuries. Sestamibi injected atpeak exercise was 31.6 millicuries. Peak HR: 143 bpm. Predicted Maximal HR 163 bpm. PercentMax Predicted HR Achieved: 87.73 %. Perfusion: Normal perfusion imaging. LV Function: Global left ventricular function is normal. Left ventricular ejectionfraction is 50 %. Conclusions: 1. Negative myocardial perfusion imaging without infarct or ischemia. 2. Normal gated spect study with Ejection Fraction of 50%. Electronically Signed By: Jonathan Solorio MD, [facility] 2021-09-30 11:39:13 AERIAL CROP DUSTER Leticia Loredo MD [facility] PROCEDURES Final Result documented in this encounter Visit Diagnoses Diagnosis Multiple-type hyperlipidemia Other and unspecified hyperlipidemia Encounter for screening colonoscopy documented in this encounter Administered Medications Inactive Administered Medications - up to 3 most recent administrations Medication Order MAR Action Action Date Dose Rate Site tc-99m tetrofosmin (MYOVIEW) injection 10.7 millicurie 10.7 millicurie, intravenous, Once in imaging, radiopharmaceutical, Starting on Laura 09/30/21 at 0817, For 1 dose, Indications: Diagnostic RadiographyIndications:Lisa gnostic Radiography Given 09/30/2021 8:00 AM AERIAL CROP DUSTER 10.7 millicuries tc-99m tetrofosmin (MYOVIEW) injection 31.6 millicurie 31.6 millicurie, intravenous, Once in imaging, radiopharmaceutical, Starting on Laura 09/30/21 at 0817, For 1 dose, Indications: Diagnostic RadiographyIndications:Lisa gnostic Radiography Given 09/30/2021 9:30 AM AERIAL CROP DUSTER 31.6 millicuries documented in this encounter Care Teams Digital Measurement Advisor Relationship Specialty Start Date End Date [address] [address] [place] [address] PCP - General Family Medicine 09/23/21 11/22/23 Leticia Loredo MD Consulting Physician Cardiology 01/04/19 [place] [address] [place] [address] Pipeline Superintendent Obstetrics and Gynecology 04/19/21 documented as of this encounter
--- OUTSIDE RECORDS SUMMARY | 2024-10-13 04:08 | XMS_ITS | Encounter Summary ---
Author Organization [facility] Healthcare Address [address] [place] [address] Care Team Providers Care Excellence Leader Name Role Phone Phoenix Loredo MD Unavailable [phone] Aylin Lundy MD Unavailable [phone] Harper Myers DO Primary Care Provider [phone] Reason for Referral * Diagnostic Imaging (Routine) - Closed Specialty Diagnoses / Procedures Referred By Contac t Referred To Contact Diagnoses Atherosclerosis of houl[place] arteries of extremities with intermittent claudication, bilateral legs (HCC) Procedures US ABE Keturah Malik NP [address] [facility] [address] [place] [address] Phone: tel: fax: [address] [address] Referral ID Status Reason Start Date Expiration Date Visits Re quested Visits Authorized [id number] Closed 07/12/2021 08/11/2022 1 1 PUNCHER Reason for Visit * Diagnostic Imaging (Routine) - Closed Specialty Diagnoses / Procedures Referred By Contac t Referred To Contact Diagnoses Atherosclerosis of houlton arteries of extremities with intermittent claudication, bilateral legs (HCC) Procedures US ABE Keturah Malik NP [address] [facility] [address] [place] [address] Phone: tel: fax: [facility] [address] [place] [address] Referral ID Status Reason Start Date Expiration Date Visits Re quested Visits Authorized [id number] Closed 07/12/2021 08/11/2022 1 1 Encounter Details Date Type Department Care Team (Latest Contact Info) Description 10/15/2021 8:00 AM POT PUNCHER - 10/15/2021 11:59 PM POT PUNCHER Hospital Encounter [facility] 1 [place] [address] Unknown, Notinfile EulessKeturah, DRY STARCH OPERATOR [address] [facility] [address] [place] [address] Atherosclerosis of houl[place] arteries of extremities with intermittent claudication, bilateral [...] on file Legal Sex Female 8:44 AM POT PUNCHER Gender Identity Not on file Sexual Orientation [...] 02/04/2025 9:30 AM CDT Hospital Encounter [address] [address] Vic Gaines, DO 3 [facility] [address] [place] [address] 02/04/2025 9:30 AM CDT - 02/04/2025 10:00 AM CDT Surgery [address] [address] Vic Gaines, DO 3 [facility] [address] [place] [address] COLONOSCOPY Scheduled Procedures Name Priority Associated Diagnoses Date/Ti me COLONOSCOPY Encounter for screening colonoscopy 02/04/2025 9:30 AM CDT documented as of this encounter Procedures Procedure Name Priority Date/Time Associated Diagnosis Comments US ABE Schedule Routine, Read Routine (OP Routine) 10/15/2021 8:30 AM POT PUNCHER Atherosclerosis of houlton arteries of extremities with intermittent claudication, bilateral legs (HCC) documented in this encounter Results * US ABE (10/15/2021 8:30 AM POT PUNCHER) Anatomical Region Laterality Modality Vascular N/A Ultrasound 10/15/2021 8:06 AM POT PUNCHER Narrative 10/15/2021 11:31 AM POT PUNCHER [address] [place] [address] Ankle Brachial Index Report Patient Name: MOSHE HARTLEY ?? : 1965 (56y 5m) ??Gender: F Study Date: 10/15/2021 8:06:00 AM Skating Carhop: [place] Provider: KETURAH MALIK Quality: Adequate Ref.Provider: KETURAH MALIK Procedures: Arterial Report: A bilateral extremities ankle/brachial index was performed. Indications: Claudication. Conclusions: 1. No arterial insufficiency in either lower extremitiy with ABE of 1.0 on the right and 1.1 on the left. 2. Triphasic waveform at the ankle bilaterally. 3. results unchanged [facility] prior study in 07/2021. Measurements: RightValueLeftValue Electronically Signed By: Phoenix Loredo MD 2021-10-15 11:31:18 POT PUNCHER Procedure Note Phoenix Loredo MD - 10/15/[address] [address] Ankle Brachial Index Report Patient Name: Adry HARTLEY ID: [id number] : 1965 (56y 5m) Gender: FStudy Date: 10/15/2021 8:06:00 AM [place] Provider: KETURAH MALIKQuality: Adequate Ref.Provider: KETURAH MALIK Procedures: Arterial Report: A bilateral extremities ankle/brachial index wasperformed. Indications: Claudication. Conclusions: 1. No arterial insufficiency in either lower extremitiy with ABE of 1.0 onthe right and 1.1 on the left. 2. Triphasic waveform at the ankle bilaterally. 3. results unchanged [facility] prior study in 07/2021. Measurements: RightValueLeftValue Electronically Signed By: Phoenix Loredo MD 2021-10-15 11:31:18 POT PUNCHER us Keturah Malik DRY STARCH OPERATOR IMG US PROCEDURES Final Res ult documented in this encounter Visit Diagnoses Diagnosis Atherosclerosis of houl[place] arteries of extremities with intermittent claudication, bilateral legs (HCC) Encounter for screening colonoscopy documented in this encounter Care Teams Excellence Leader Relationship Specialty [place] [address] [place] [address] PCP - General Family Medicine 09/23/21 11/22/23 Phoenix Loredo MD Consulting Physician Cardiology 01/04/19 [place] [address] [place] [address] Bat Boy/Girl Obstetrics and Gynecology 04/19/21 documented as of this encounter
--- OUTSIDE RECORDS SUMMARY | 2024-10-13 04:08 | XMS_ITS | Encounter Summary ---
Author Organization [facility] Medical Group Address [address] [facility] [address] [place] [address] Care Team Providers Care Conciliator Name Role Phone Phoenix Loredo MD Unavailable [phone] Aylin Lundy MD Unavailable [phone] Emerson Allen MD Primary Care Provider [phone] Encounter Details Date Type Department Care Team (Late st Contact Info) Description 09/09/2021 Orders Only [place] Patient Financial Services Specialist 2 [facility] [address] [place] [address] Keturah Malik, CRISTIANO 2 [facility] [address] [place] [address] Social History Tobacco Use Types Packs/Day Years [...] on file Legal Sex Female 8:44 AM LONG DISTANCE BILLING OPERATOR Gender Identity Not on file Sexual Orientation Not on file documented as of this encounter Plan of Treatment Upcoming Encounters Date Type Department Care Team (Late st Contact Info) Description 02/04/2025 9:30 AM CDT Hospital Encounter [address] [address] Vic Gaines, DO 3 [facility] [address] [place] [address] 02/04/2025 9:30 AM CDT - 02/04/2025 10:00 AM CDT Surgery [address] [address] Vic Gaines, DO 3 [facility] [address] [place] [address] COLONOSCOPY Scheduled Procedures Name Priority Associated Diagnoses Date/Ti me COLONOSCOPY Encounter for screening colonoscopy 02/04/2025 9:30 AM CDT documented as of this encounter Visit Diagnoses Not on filedocumented in this encounter Care Teams Conciliator Relationship Specialty Start Date End Date Emerson Allen MD [address] [place] [address] PCP - General 08/02/21 09/16/21 Phoenix Loredo MD Consulting Physician Cardiology 01/04/19 Aylin Lundy MD [address] [place] [address] Chemical Processor Obstetrics and Gynecology 04/19/21 documented as of this encounter
--- OUTSIDE RECORDS SUMMARY | 2024-10-13 04:08 | XMS_ITS | Encounter Summary ---
Author Organization [facility] Healthcare Address [address] [place] [address] Care Team Providers Care Project Safety Manager Name Role Phone Phoenix Loredo MD Unavailable [phone] Aylin Lundy MD Unavailable [phone] Harper Myers DO Primary Care Provider [phone] Reason for Referral * Sleep Medicine (Routine) - Closed Specialty Diagnoses / Procedures Referred By Contac t Referred To Contact Diagnoses TROY (obstructive sleep apnea) Procedures Portable/Home Sleep Study Phoenix Loredo MD Phone: tel: fax: [address] [address] Referral ID Status Reason Start Date Expiration Date Visits Re quested Visits Authorized [id number] Closed 10/19/2021 11/18/2022 1 1 R ELECTRIC LOCOMOTIVE Reason for Visit * Sleep Medicine (Routine) - Closed Specialty Diagnoses / Procedures Referred By Contmanuela t Referred To Contact Diagnoses TROY (obstructive sleep apnea) Procedures Portable/Home Sleep Study Phoenix Loredo MD Phone: tel: fax: [address] [address] Referral ID Status Reason Start Date Expiration Date Visits Re quested Visits Authorized [id number] Closed 10/19/2021 11/18/2022 1 1 Encounter Details Date Type Department Care Team (Latest Contact Info) Description 11/08/2021 8:00 AM FIRER ELECTRIC LOCOMOTIVE - 11/08/2021 11:59 PM FIRER ELECTRIC LOCOMOTIVE Hospital Encounter [facility] 1 [place] [address] Phoenix Loredo MD [address] [address] TROY (obstructive sleep apnea) Discharge Disposition: Discharge [...] on file Legal Sex Female 8:44 AM FIRER ELECTRIC LOCOMOTIVE Gender Identity Not on file Sexual Orientation [...] Progress Notes * Brianne Florez MD - 11/08/2021 8:00 AM CST HOME SLEEP APNEA TEST HISTORY: Mirtha Cherry is a 56 y.o. female who presents for Home sleep apnea test. (HSAT). Reason for sleep study: Snoring, excessive daytime sleepiness, palpitations Past medical history: Dyslipidemia, peripheral artery disease status post stent, obesity, asthma, gastroesophageal reflux disease Current medications: reviewed [place] Sleepiness Score: 16 BMI: 30.72 PROCEDURE: This is a single night diagnostic study. This Home Sleep apnea Test (HSAT) utilized an unattended FDA approved Dweho apnea link home air portable monitoring device investigating for obstructive sleep apnea. The patient was proved instruction of the device and application by the registered polysomno graphy technologist at the [facility]. This test was performed without a polysomnographic technologist in attendance. In this study, the following parameters were monitored: Misha-nasal airflow, snoring, chest respiratory effort, abdominal respiratory effort, body position, movement, oxygen saturation, and heart rate. Respiratory events are scored according to the criteria from The British Academy of Sleep Medicine (AASM) Manual for the scoring of sleep and associated events - version 2.6. FINDINGS: The recorded bed time starts at [...] 49/min, and maximum heart rate was 84/min. INTERPRETATION: This is an adequate quality Home Sleep apnea Test. (HSAT) 1. This home sleep apnea study (HSAT) is negative for obstructive sleep apnea. There was evidence of multiple airflow fluctuations that were concerning for the presence of increased number of respiratory effort related arousals (RERAs). However, home sleep study testing is limited by the lack of EEG. Hence, in-lab diagnostic sleep study is recommended for a proper evaluation. RECOMMENDATIONS: 1. An in-lab diagnostic study is recommended for proper evaluation. Limitations of the study: 1. A sleep EEG was not recorded; therefore, the actual amount of time spent in sleep, stages of sleep and respiratory events associated with arousals cannot be determined by this study. 2. All indexes are computed against monitoring time, not total sleep time. For this reason, the degree of severity may be underestimated * Please note: The severity of the sleep apnea may vary from night to night depending on body position during sleep, REM sleep and sleep efficiency. These factors should be taken into consideration. Brianne Florez MD [facility] Medical [facility] Sleep Medicine R ELECTRIC LOCOMOTIVE documented in this encounter Plan of Treatment Upcoming Encounters Date Type Department Care Team (Late st Contact Info) Description 02/04/2025 9:30 AM CDT Hospital Encounter [address] [address] Vic Ganies, DO 3 [facility] [address] [place] [address] 02/04/2025 9:30 AM CDT - 02/04/2025 10:00 AM CDT Surgery [address] [address] Vic Gaines, DO 3 [facility] [address] [place] [address] COLONOSCOPY Scheduled Procedures Name Priority Associated Diagnoses Date/Ti me COLONOSCOPY Encounter for screening colonoscopy 02/04/2025 9:30 AM CDT documented as of this encounter Procedures Procedure Name Priority Date/Time Associated Diagnosis Comments PORTABLE/HOME SLEEP STUDY Routine 11/09/2021 TROY (obstructive sleep apnea) documented in this encounter Results * Portable/Home Sleep Study (11/09/2021) Impressions Brianne Florez MD - 11/09/2021 HOME SLEEP APNEA TEST ?? HISTORY: Mirtha Cherry is a 56 y.o. female who presents for Home sleep apnea test. (HSAT). Reason for sleep study: ??Snoring, excessive daytime sleepiness, palpitations Past medical history: ??Dyslipidemia, peripheral artery disease status post stent, obesity, asthma, gastroesophageal reflux disease Current medications: reviewed [place] Sleepiness Score: 16 BMI: 30.72 ?? PROCEDURE: This is a single night diagnostic study. This Home Sleep apnea Test (HSAT) utilized an unattended FDA approved Dweho apnea link home air portable monitoring device investigating for obstructive sleep apnea. The patient was proved instruction of the device and application by the registered system technologist at the [facility]. This test was performed without a polysomnographic technologist in attendance. In this study, the following parameters were monitored: Misha-nasal airflow, snoring, chest respiratory effort, abdominal respiratory effort, body position, movement, oxygen saturation, and heart rate. Respiratory events are scored according to the criteria from The British Academy of Sleep Medicine (AASM) Manual for [...] be taken into consideration.? Brianne Florez MD [facility] Sleep Medicine ?? Narrative Brianne Florez MD - 11/09/2021 Ocst is ready for review us Phoenix Loredo MD SLEEP CENTER ORDERABLES Final R esult documented in this encounter Visit Diagnoses Diagnosis TROY (obstructive sleep apnea) Obstructive sleep apnea (adult) (pediatric) Encounter for screening colonoscopy documented in this encounter Care Teams Project Safety Manager Relationship Specialty [place] [address] [place] [address] PCP - General Family Medicine 09/23/21 11/22/23 Phoenix Loredo MD Consulting Physician Cardiology 01/04/19 [place] [address] [place] [address] Oracle Programmer Obstetrics and Gynecology 04/19/21 documented as of this encounter
--- OUTSIDE RECORDS SUMMARY | 2024-10-13 04:08 | XMS_ITS | Encounter Summary ---
Author Organization [facility] Medical Group Address [address] [facility] [address] [place] [address] Care Team Providers Care Spice Cleaner Name Role Phone Phoenix Loredo MD Unavailable Aylin Lundy MD Unavailable [phone] Celine Solano NP Primary Care Provider [phone] Reason for Visit * Reason Comments Urinary Symptom No sym-blood in urin e started today Encounter Details Date Type Department Care Team (Late st Contact Info) Description 09/17/2021 4:45 PM BRICK VENEER MAKER Office Visit [facility] [address] [facility] [place] [address] Roxana Maria NP [address] [place] [address] [place] [id number] Hematuria, unspecified type (Primary Dx) Social History [...] on file Legal Sex Female 8:44 AM BRICK VENEER MAKER Gender Identity Not on file Sexual Orientation Not on file documented as of this encounter Last Filed Vital Signs Vital Sign Reading Time Taken Comments Blood Pressure 144/78 09/17/2021 4:44 PM BRICK VENEER MAKER Pulse 91 09/17/2021 4:44 PM BRICK VENEER MAKER Temperature 36.6 ??C (97.9 ??F) 09/17/2021 4:44 PM CS T Respiratory Rate 18 09/17/2021 4:44 PM BRICK VENEER MAKER Oxygen Saturation 96% 09/17/2021 4:44 PM BRICK VENEER MAKER Inhaled Oxygen Concentration - - Weight 73.9 kg (163 lb) 09/17/2021 4:44 PM BRICK VENEER MAKER Height 154.9 cm (5' 1 ) 09/17/2021 4:44 PM BRICK VENEER MAKER Body Mass Index 30.8 09/17/2021 4:44 PM BRICK VENEER MAKER documented in this encounter Patient Instructions * Patient Instructions* Roxana Maria, CRISTIANO - 09/17/2021 4:45 PM BRICK VENEER MAKER Patient Education Hematuria RETOUCHER: Hematuria is blood in your urine. Your urine may be bright red to dark brown. Common symptoms you might have with hematuria include the following: ?? Fever ?? Nausea and vomiting ?? Pain or bruising on your lower back or sides ?? Pain when you urinate ?? More urination than usual, or the need to urinate right away Seek care immediately if: ?? You have blood in your urine after a new injury, such as a fall. ?? You are urinating very small amounts or not at all. ?? You feel like you cannot empty your bladder. ?? You have severe back or side pain that does not go away with treatment. Contact your healthcare provider if: ?? You have a fever that gets worse or does not go away with treatment. ?? You cannot keep liquids or medicines down. ?? Your urine gets darker, even after you drink extra liquids. ?? You have questions or concerns about your condition, treatment, or care. Treatment for hematuria depends on the cause of your hematuria. Treatment may not be needed. You may need medicines to treat an infection. Ask your healthcare provider for more information about the treatment you may need. Drink liquids as directed: You may need to drink extra liquids to help flush the blood from your body through your urine. Water is the best liquid to drink. Ask how much liquid to drink each day and which liquids are best for you. Follow up with your healthcare provider as directed: Write down your questions so you remember to ask them during your visits. ?? 2017 [email or web address] Information is for End User's use only and may not be sold, redistributed or otherwise used for commercial purposes. All illustrations and images included in CareNotes?? are the copyrighted property of [email or web address], [employer]. or [employer]. The above information is an educational/development assistant only. It is not intended as medical advice for individual conditions or treatments. Talk to your doctor, nurse or pharmacist before following any medical regimen to see if it is safe and effective for you. K VENEER MAKER documented in this encounter Ordered Prescriptions Prescription Sig Dispense Quantity Refills Last Filled Start Date End Date nitrofurantoin monohydrate (Macrobid) 100 mg capsuleIndications :Hematuria, unspecified type Take 1 capsule (100 mg total) by mouth 2 (two) times a day for 7 days 14 capsule 09/17/2021 documented in this encounter Progress Notes * Roxana Maria NP - 09/17/2021 4:45 PM CST Images from the original note were not included. Subjective/Objective Patient ID: Mirhta Cherry is a 56 y.o. female. Chief Complaint Urinary Symptom (No sym-blood in urine started today) Presents to clinic for blood in the urine that started today. She has been drinking more water which has cleared it up, but then she went again this afternoon & had blood again. Denies any frequency, urgency or burning. Review of Systems Constitutional: Negative for chills, fatigue and fever. Gastrointestinal: Negative for nausea and vomiting. Genitourinary: Positive for hematuria. Negative for difficulty urinating, dysuria, flank pain, frequency and urgency. Neurological: Negative for headaches. Psychiatric/Behavioral: [...] Thought content normal. Judgment: Judgment normal. Vitals: 09/17/21 1644 BP: 144/78 Pulse: 91 Resp: 18 Temp: 36.6 ??C (97.9 ??F) SpO2: 96% Weight: 73.9 kg (163 lb) Height: 154.9 cm (5' 1 ) Assessment/Plan # urinary tract infection v pyelonephritis --start Macrobid . Discussed importance of compliance of antibiotics and possibility of change depending on culture results and susceptibilities --void before and after sexual intercourse and wipe front to back post-void --avoid alcohol, caffeine and citrus juices as this can cause irritation --monitor urine for foul odor, color change, hematuria, cloudiness, change in frequency or urgency --symptoms warranting ED presentation: chest tightness, SOB, inability to maintain oral intake, confusion, fever greater than 100.9 ?? for more than 4 hours w/o improvement w/ antipyretics --f/u with PCP if symptoms do not improve in 5-7 days Diagnoses and all orders for this visit: Hematuria, unspecified type (Primary) - POCT UA, AUTO W/O SCOPE - Urine culture Urine, clean voided; Future - nitrofurantoin monohydrate (Macrobid) 100 mg capsule; Take 1 capsule (100 mg total) by mouth 2 (two) times a day for 7 days Recent Results (from the past 4 hour(s)) POCT UA, AUTO W/O SCOPE Collection Time: 09/17/21 4:50 PM Result Value Ref Range Color, Urine, POC Brown Clarity, ur, POC Cloudy (A) Clear Glucose, ur, POC Negative Negative mg/dL Bilirubin, ur, POC Small Negative, Small, Moderate, Large Ketones, ur, POC Negative Negative Specific [place], POC 1.030 1.005 - 1.030 Blood, ur, POC Large (A) Negative pH, ur, POC 6.0 5.0 - 8.0 Protein, ur, POC 1+ (A) Negative Urobilinogen, Urine, POC 0.2 mg/dL Leukocytes, ur, POC Negative Negative Nitrite, ur, POC Negative Negative Appearance, fld Cloudy (A) Clear Patient Education: Disposition ??? Treatment plan including [...] ask questions, questions answered. Roxana Maria NP K VENEER MAKER documented in this encounter Plan of Treatment Upcoming Encounters Date Type Department Care Team (Late st Contact Info) Description 02/04/2025 9:30 AM CDT Hospital Encounter [address] [address] Vic Gaines, DO 3 [facility] [address] [place], [place] [id number] 02/04/2025 9:30 AM CDT - 02/04/2025 10:00 AM CDT Surgery [address] [address] Vic Gaines, DO 3 [facility] [address] [place], [place] [id number] COLONOSCOPY Scheduled Procedures Name Priority Associated Diagnoses Date/Ti la COLONOSCOPY Encounter for screening colonoscopy 02/04/2025 9:30 AM CDT documented as of this encounter Procedures Procedure Name Priority Date/Time Associated Diagnosis Comments POCT URINALYSIS, AUTO W/O SCOPE Routine 09/17/2021 4:50 PM BRICK VENEER MAKER Hematuria, unspecified type documented in this encounter Results * (ABNORMAL) POCT UA, AUTO W/O SCOPE (09/17/2021 4:50 PM BRICK VENEER MAKER) Color, Urine, POC Brown Clarity, ur, POC Cloudy(A) Clear Glucose, ur, POC Negative Negative mg/dL Bilirubin, ur, POC Small Negative, Small, Moderate, Large Ketones, ur, POC Negative Negative Specific [place], POC 1.030 1.005 - 1.030 Blood, ur, POC Large(A) Negative pH, ur, POC 6.0 5.0 - 8.0 Protein, ur, POC 1+(A) Negative Urobilinogen, Urine, POC 0.2 mg/dL Leukocytes, ur, POC Negative Negative Nitrite, ur, POC Negative Negative Appearance, fld Cloudy(A) Clear Urine, clean voided 09/17/2021 4:50 PM BRICK VENEER MAKER Roxana Maria NP POINT OF CARE TEST OR DERABLES Final Result * Urine culture Urine, clean voided (09/17/2021 4:49 PM BRICK VENEER MAKER) Report Final Report: Less than 100,000 colonies/mL (clinically insignificant growth based on current clinical standards) JAY CARNES Comment:Testing performed by : [facility], [address] [place]., [address] Organism (CLINICALLY INSIGNIFICANT GROWTH JAY Urine, clean voided 09/17/2021 4:49 PM BRICK VENEER MAKER 09/18/2021 12:07 AM BRICK VENEER MAKER Narrative JAY CARNES - 09/19/2021 7:25 AM BRICK VENEER MAKER Testing performed by [facility] Microbiology Laboratory ([phone]) Roxana Maria NP LAB MICROBIOLOGY - GE NERAL ORDERABLES Final Result JAY CARNES [address] [address] [place] [address] documented in this encounter Visit Diagnoses Diagnosis Hematuria, unspecified type- Primary Hematuria, unspecified type Encounter for screening colonoscopy documented in this encounter Care Teams Spice Cleaner Relationship Specialty [place] [address] [place] [address] PCP - General Family Medicine 09/17/21 09/22/21 Phoenix Loredo MD Consulting Physician Cardiology 01/04/19 [place] [address] [place] [address] Watch Assembly Inspector Obstetrics and Gynecology 04/19/21 documented as of this encounter
--- OUTSIDE RECORDS SUMMARY | 2024-10-13 04:08 | XMS_ITS | Encounter Summary ---
Author Organization [facility] Healthcare Address [address] [place] [address] Care Team Providers Care Test Lab Technician Name Role Phone Phoenix Loredo MD Unavailable [phone] Aylin Lundy MD Unavailable [phone] Celine Solano NP Primary Care Provider [phone] Encounter Details Date Type Department Care Team (Late st Contact Info) Description 09/17/2021 8:15 PM PAINTER SET Lab [address] [address] Hematuria, unspecified type Social History Tobacco Use Types Packs/Day Years [...] on file Legal Sex Female 8:44 AM PAINTER SET Gender Identity Not on file Sexual Orientation Not on file documented as of this encounter Miscellaneous Notes * Result Encounter Note - Suha Wilkinson MA - 09/19/2021 6:43 PM CST Results given TER SET * Result Encounter Note - Mandy Chowdary NP - 09/18/2021 5:55 PM CST Macrobid initiated at date of service. Awaiting final result/susceptibility report. TER SET documented in this encounter Plan of Treatment Upcoming Encounters Date Type Department Care Team (Late st Contact Info) Description 02/04/2025 9:30 AM CDT Hospital Encounter [address] [address] Vic Gaines, DO [address] [facility] [address] [place] [address] 02/04/2025 9:30 AM CDT - 02/04/2025 10:00 AM CDT Surgery [address] [address] Vic Gaines, DO [address] [facility] [address] [place] [address] COLONOSCOPY Scheduled Procedures Name Priority Associated Diagnoses Date/Ti me COLONOSCOPY Encounter for screening colonoscopy 02/04/2025 9:30 AM CDT documented as of this encounter Procedures Procedure Name Priority Date/Time Associated Diagnosis Comments URINE CULTURE Routine 09/17/2021 4:49 PM PAINTER SET Hematuria, unspecified type documented in this encounter Results * Urine culture Urine, clean voided (09/17/2021 4:49 PM PAINTER SET) Report Final Report: Less than 100,000 colonies/mL (clinically insignificant growth based on current clinical standards) JAY CARNES Comment:Testing performed by : [facility], [address] [place]., [address] Organism (CLINICALLY INSIGNIFICANT GROWTH JAY Urine, clean voided 09/17/2021 4:49 PM PAINTER SET 09/18/2021 12:07 AM PAINTER SET Narrative JAY CARNES - 09/19/2021 7:25 AM PAINTER SET Testing performed by [facility] Microbiology Laboratory ([phone]) Roxana Maria NP LAB MICROBIOLOGY - NERMT ORDERABLES Final Result JAY [address] Department [place] [address] documented in this encounter Visit Diagnoses Diagnosis Hematuria, unspecified type Encounter for screening colonoscopy documented in this encounter Care Teams Test Lab Technician Relationship Specialty [place] [address] [place] [address] PCP - General Family Medicine 09/17/21 09/22/21 Phoenix Loredo MD Consulting Physician Cardiology 01/04/19 [place] [address] [place] [address] [employer] General Supervisor Obstetrics and Gynecology 04/19/21 documented as of this encounter
--- OUTSIDE RECORDS SUMMARY | 2024-10-13 04:09 | XMS_ITS | Encounter Summary ---
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 Gender Identity Not on file Sexual Orientation Not on file documented as of this encounter Last Filed Vital Signs Vital Sign Reading Time Taken Comments Blood Pressure 100/54 05/13/2021 9:55 AM CDT Pulse 69 05/13/2021 9:55 AM CDT Temperature 37.2 ??C (98.9 ??F) 05/13/2021 7:41 AM CD T Respiratory Rate 15 05/13/2021 9:55 AM CDT Oxygen Saturation 95% 05/13/2021 9:55 AM CDT Inhaled Oxygen Concentration - - Weight 72.6 kg (160 lb) 05/13/2021 7:41 AM CDT Height 154.9 cm (5' 1 ) 05/13/2021 7:41 AM CDT Body Mass Index 30.23 05/13/2021 7:41 AM CDT documented in this encounter Discharge Instructions * Discharge Instructions* Bonita Beard RN - 05/13/2021 9:19 AM CDT Instructions for going home after your AIF (Peripheral Angiogram) Care for the Catheter Insertion Site Your procedure may be performed in the femoral artery in the groin (the area at the top of your thigh) or in the radial artery in your arm. When you go home, there will be a bandage over the catheterinsertion site. ??? The morning after your procedure, you may take the dressing off. The easiest way to do this is when you are showering, get the tape and dressing wet and remove it. ??? After the bandage is removed, cover the area with a small adhesive bandage. It is normal for the catheter insertion site to be black and blue for a couple of days. There may also be a small lump (about the size of a pea) at the site. ??? Wash the catheter insertion site at least once daily with soap and water. Place soapy water on your hand or washcloth and gently wash the insertion site; do not rub. Keep the area clean and dry when you are not showering. ??? Do not use creams, lotions, or ointment on the wound site. Wear loose clothes and loose underwear. ??? Do not take a bath, tub soak, go in a Jacuzzi, or swim in a pool or ortiz for one week after theprocedure. ??? Notify your physician if you experience (numbness in your leg or arm; severe chills or fever of100.5 degrees F; redness, swelling, draining or a foul odor from the procedure or IV site; pain that will not go away) For femoral cath ??? Do not strain during bowel movements for the first 3 to 4 days after the procedure to prevent bleeding from the catheter insertion site. ??? Avoid heavy lifting (more than 10 pounds) and pushing or pulling heavy objects for the first 5 to 7 days after the procedure. ??? Do not participate in strenuous activities for 5 days after the procedure. This includes most sports - jogging, golfing, play tennis, and bowling. ??? You may climb stairs if needed, but walk up and down the stairs more slowly than usual. ??? Gradually increase your activities until you reach your normal activity level within one week after the procedure. Additional instructions: ??? Be sure to drink eight to ten glasses of clear fluids (water is preferred) to flush the contrast material from your system. ??? You may resume driving 48 hours after the procedure. ??? Do not drink alcoholic beverages for 24 hours post procedure. ??? Ask your doctor when it is safe to return to work and to resume sexual activity. ??? It is important for you to be committed to leading a heart-healthy lifestyle. Your health care team can help you achieve your goals, but it is up to you to take your medications as prescribed, make dietary changes, quit smoking, exercise regularly, keep your follow-up appointments and be an active member of the treatment team. Medications ??? Review your medications with your doctor before you go home. Depending on the results of your procedure, your doctor may prescribe new medications. ??? If you have diabetes, your doctor may adjust your diabetes medications for one to two days after your procedure. Follow up ??? Follow up with your Primary Care Physician in 2-3 weeks and Auto Painter in 4-6 weeks. * Discharge Instr - Other Orders* Bonita Beard RN - 05/13/2021 9:20 AM CDT ?? You need to have a repeat ABE exam done 3-5 days PRIOR to seeing Dr. Loredo on June 15, 2021. Please call our Centralized Scheduling Department at [phone] to have this set up. If you have any issues getting this scheduled in the correct time frame you can call [phone] for assistance. documented in this encounter Medications at Time of Discharge albuterol (PROVENTIL,VENTOL IN) 2.5 mg /3 mL (0.083 %) nebulizer solution Take 3 mL (2.5 mg total) by nebulization every 6 (six) hours as needed for wheezing 75 mL 2 01/09/2019 3 albuterol HFA (PROVENTIL HFA,VENTOLIN HFA,PROAIR HFA) 90 mcg/actuation inhaler Inhale 2 puffs every 6 (six) hours as needed for wheezing 1 Inhaler 2 01/09/2019 2 aspirin 81 mg tablet Take 81 mg by mouth. 2 atorvastatin (LIPITOR) 40 mg tablet Take 1 tablet (40 mg total) by mouth daily 90 tablet 3 12/07/2020 1 clopidogreL (PLAVIX) 75 mg tablet Take 1 tablet (75 mg total) by mouth daily 90 tablet 3 07/16/2020 1 coenzyme Q10 (CO Q-10) 200 mg capsule Take 1 capsule by oral route every day 0 0 12/07/2016 4 famotidine (Pepcid) 40 mg tablet Take 1 tablet (40 mg total) by mouth 2 (two) times a day 180 tablet 3 02/20/2020 1 fluticasone propionate (FLONASE) 50 mcg/actuation nasal spray SHAKE LIQUID AND USE 1 SPRAY IN EACH NOSTRIL DAILY 16 g 2 08/19/2020 1 Lactobacillus acidophilus (PROBIOTIC) 10 billion cell capsule Take 1 capsule by oral route every day 0 0 12/07/2016 4 loratadine (CLARITIN) 10 mg tablet Take 1 tablet (10 mg total) by mouth daily 4 multivitamin capsule Take 1 capsule by mouth daily 4 pimecrolimus (ELIDEL) 1 % creamIndications: Eczema of both hands Apply topically 2 (two) times a day 30 g 1 04/27/2019 3 SUMAtriptan (IMITREX) 50 mg tabletIndications :Other migraine without status migrainosus, not intractable May repeat dose once in 2 hours if no relief. Do not exceed 2 doses in 24 hours. 9 tablet 2 01/13/2021 1 documented as of this encounter Discharge Disposition Disposition Code Departure Means Destination Discharge to home or self care documented in this encounter H&P Notes * Phoenix Loredo MD - 05/13/2021 8:20 AM CDT Plan of Care : Based on the above findings, I consider Moshe Hartley to be an acceptable risk for: Procedure(s): PERIPHERAL ANGIOGRAPHY I have reviewed the prior History and Physical of Moshe Hartley, re-examined her and no change has occurred in her condition. The risks, benefits, and alternatives were discussed with the patient. Phoenix Loredo MD Source Note - Phoenix Loredo MD - 04/26/2021 9:45 AM CDT Cardiology note Reason for [...] to undergo bunion surgery and refered by stull hewer for weak pedal pulses. US doppler showed [...] SOB, palpitations. Patient still smoking . Walking 1/2 mile. Pain in left hip with walking . Does not force her to stop . No open sores .Patient weight is stable Weight: 161 lbs Review of Systems: Review [...] color change and poor wound healing. Musculoskeletal: Positive for joint pain. Negative for back pain and myalgias. Gastrointestinal: Negative for bloating, heartburn and nausea. Genitourinary: Negative for hematuria. Neurological: Negative for excessive daytime sleepiness, dizziness, headaches, light-headedness, loss of balance and tremors. Psychiatric/Behavioral: Negative for altered mental status, depression and memory loss. Histories: Past Medical History: Diagnosis Date ??? Asthma Asthma; Comments: DNT 07/10/2014 - ??? Gastroesophageal reflux disease GERD ??? 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 HX OTHER MEDICAL 2010 capal tunnel [...] 07/10/2014 - ??? Peripheral vascular disease (CMS/HCC) Peripheral vascular disease; Comments: 2 in each [...] status: Current Every Day Smoker Packs/day: 1.00 ??? Smokeless tobacco: Never Used ??? Tobacco comment: Smoking History Packs/day: 0.5 Packs Substance Use Topics ??? Alcohol use: No ??? Drug use: Not on file Allergies: Allergies Allergen Reactions ??? Acetaminophen Unknown ??? Adhesive Rash Reaction: Rash, ??? Codeine [...] for this visit. Vital Signs: Vitals BP 122/73 (BP Location: Right arm, Patient Position: Sitting) Pulse 81 Temp 36.8 ??C (98.3 ??F) Resp 18 Ht 154.9 cm (5' 1 ) Wt 72.6 kg (160 lb) LMP (LMP Unknown) BMI 30.23 kg/m?? Vitals: 04/26/21 1004 BP: 122/73 Pulse: 81 Resp: 18 Temp: 36.8 ??C (98.3 ??F) Wt Readings from Last 3 Encounters: 04/26/21 72.6 kg (160 lb) 04/19/21 72.8 kg (160 lb 8 oz) 02/27/21 78.9 kg (174 lb) Body mass index is 30.23 kg/m??. Physical Exam: Physical Exam Constitutional: General: [...] Labs: Lab Results Component Value Date INR 0.95 06/01/2017 INR 0.95 01/07/2016 Lab Results Component Value Date PT 10.7 06/01/2017 Lab Results Component Value Date TSH 1.28 12/29/2018 Lab Results Component Value Date AST 20 04/10/2021 ALT 24 04/10/2021 ALKPHOS 93 04/10/2021 ALBUMIN 4.1 04/10/2021 Lab Results Component Value Date SODIUM 141 04/10/2021 POTASSIUM 4.1 04/10/2021 CHLORIDE 106 04/10/2021 CO2 25 04/10/2021 ANIONGAP 9 04/10/2021 No results found for: BNP Lab Results Component Value Date SODIUM 141 04/10/2021 SODIUM 140 06/13/2020 SODIUM 141 12/21/2019 POTASSIUM 4.1 04/10/2021 POTASSIUM 4.2 06/13/2020 POTASSIUM 4.4 12/21/2019 CHLORIDE 106 04/10/2021 CHLORIDE 104 06/13/2020 CHLORIDE 106 12/21/2019 CO2 25 04/10/2021 CO2 26 06/13/2020 CO2 25 12/21/2019 BUNSER 14 04/10/2021 BUNSER 15 06/13/2020 BUNSER 11 12/21/2019 CREATININE 0.72 04/10/2021 CREATININE 0.91 06/13/2020 CREATININE 0.86 12/21/2019 GFRNAA 94 04/10/2021 GFRNAA 71 06/13/2020 GFRNAA 76 12/21/2019 GLUCOSE 99 04/10/2021 CALCIUM 8.8 04/10/2021 CALCIUM 9.5 06/13/2020 CALCIUM 8.9 12/21/2019 ALBUMIN 4.1 04/10/2021 ALBUMIN 4.3 06/13/2020 ALBUMIN 4.3 12/21/2019 Lab Results Component Value Date SODIUM 141 04/10/2021 POTASSIUM 4.1 04/10/2021 CHLORIDE 106 04/10/2021 CO2 25 04/10/2021 ANIONGAP 9 04/10/2021 BUNSER 14 04/10/2021 CREATININE 0.72 04/10/2021 GLUCOSE 99 04/10/2021 CALCIUM 8.8 04/10/2021 BILITOT 0.3 04/10/2021 PROT 6.4 (L) 04/10/2021 ALBUMIN 4.1 04/10/2021 ALKPHOS 93 04/10/2021 ALT 24 04/10/2021 AST 20 04/10/2021 Lab Results Component Value Date WBC 10.2 (H) 04/10/2021 HGB 15.2 04/10/2021 HCT 45.3 04/10/2021 LABPLAT 211 04/10/2021 MPV 10.4 04/10/2021 RBC 4.95 04/10/2021 MCV 91.5 04/10/2021 MCH 30.7 04/10/2021 MCHC 33.6 04/10/2021 RDWCV 13.2 04/10/2021 RDWSD 44.2 04/10/2021 NRBCABS 0.00 04/10/2021 Lab Results Component Value Date CHOL 157 04/10/2021 TRIG 196 (H) 04/10/2021 HDL 39 (L) 04/10/2021 LDLCALC 79 04/10/2021 NONHDLCHOL 118 04/10/2021 CHOLHDL 4 04/10/2021 Testing: Tests: 05/2016 Ankle-brachial Index ratio was [...] the ankle. EK12/2015 SR possible old anterior HI 07/2016 SR , possible old anterior HI Diagnoses and Plan Assessment: #1 PAD, Bilateral ICAST stents at aortic bifurcation in 2007 and 09/09/2016. Left buttock claudication, resolved post intervention with normalized ABE #2 hyperlidemia- followed by PCP, LDL above target #3 Tobacco abuse, ongoing trying to quit #4 carotid stenosis, mild by duplex in 04/2018 #5 blood pressure improved continue to monitor Unspecified Atherosclerosis of Extremities, Bilateral [I70.203] Hyperlipidemia, unspecified [E78.5] Tobacco Use [Z72.0] Occlusion/Stenosis of Carotid Artery, Bilateral [I65.23] Plan: Continue same medication regimen. Continue tight control of blood pressure and cholesterol. Continue diet, exercise, and weight reduction. Smoking cessation discussed with patient including the potential health risks. Patient was given options of different aids for smoking cessation. Will continue the discussion. Given his clinical presentation including left hip exertional symptoms, declining ankle-brachial index and markedly asymmetric pulses examination between the lower extremities, peripheral angiographywas offered to assess the extent of peripheral vascular disease on possible intervention. The benefits and risks were discussed with the patient. This includes but not limited to risk of bleeding, vascular complications, contrast related issues. Patient understands the risk and willing to proceed. Access left femoral approach. RTC 3 months with ABE and carotid duplex Diagnoses and all orders for this visit: PVD (peripheral vascular disease) (CMS/HCC) (Primary) Dyslipidemia Tobacco dependence syndrome Return in about 3 months (around 07/27/2021). 04/26/2021 @ 10:25 AM Phoenix Loredo MD Cc:Emerson Allen MD documented in this encounter Procedure Notes * Phoenix Loredo MD - 05/13/2021 9:24 AM CDT Procedures Abdominal aortography, selective bilateral lower extremity angiography, stenting of the left external iliac artery was performed through the left femoral artery without in lab complications Findings Patent stents at the distal aorta extending into the common iliac arteries bilaterally On the right no significant lesions with three-vessel runoff On the left, femoral artery of small caliber the rest of the femoral popliteal vessels and infrapopliteal vessels on the left are all normal 80% focal InStent restenosis in the external iliac artery treated using 8 X 38 Lifestream covered stent post dilated using 8 mm balloon with resolution of the gradient Angio-Seal to left groin Plan Continue Plavix and follow her symptoms and ankle-brachial index Phoenix Loredo MD documented in this encounter Miscellaneous Notes * Perioperative Nursing Note - Caroline Zimmerman RN - 05/13/2021 12:42 PM CDT Ate all of meal tray. Now ambulated to restroom to change into clothes * Perioperative Nursing Note - Caroline Zimmerman RN - 05/13/2021 11:58 AM CDT Sitting up in bed, eating meal tray * Pre-Sedation Documentation - Phoenix Loredo MD - 05/13/2021 8:30 AM CDT Sedation Plan ASA 2 - Mild systemic disease Mallampati class: II. Risks, benefits, and alternatives discussed with patient. documented in this encounter Plan of Treatment Upcoming Encounters Date Type Department Care Team (Late st Contact Info) Description 02/04/2025 9:30 AM CDT Hospital Encounter [facility] 1 [place] [address] Vic Gaines, DO [address] [facility] [address] [place] [address] [place] [address] 02/04/2025 9:30 AM CDT - 02/04/2025 10:00 AM CDT Surgery [facility] 1 [place] [address] Vic Gaines, DO [address] [place] [place] [address] COLONOSCOPY Scheduled Procedures Name Priority Associated Diagnoses Date/Ti me COLONOSCOPY Encounter for screening colonoscopy 02/04/2025 9:30 AM CDT documented as of this encounter Procedures Procedure Name Priority Date/Time Associated Diagnosis Comments AORTOG ABD+STEFANY LOW EXTRM Routine 05/13/2021 9:11 AM CDT PVD (peripheral vascular disease) (CMS/HCC) (HCC) ANGIOGRAPHY UNILATERAL EXTREMITY S&I 06013 Routine 05/13/2021 9:11 AM CDT PVD (peripheral vascular disease) (CMS/HCC) (HCC) REVAS ENDOVASILIAC W STNT 05962 Routine 05/13/2021 9:11 AM CDT PVD (peripheral vascular disease) (CMS/HCC) (HCC) CARDIAC CATHETERIZATION Routine 05/13/20 9:11 AM CDT PVD (peripheral vascular disease) (CMS/HCC) (HCC) documented in this encounter Results * US ABE (07/09/2021 1:58 PM CDT) Anatomical Region Laterality Modality Vascular N/A Ultrasound 07/09/2021 1:32 PM CDT Narrative 07/09/2021 2:16 PM CDT [address] [place] [address] Ankle Brachial Index Report Patient Name: MOSHE HARTLEY ?? 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 Indications: Post-Op vascular surgery Conclusions: 1. No arterial insufficiency at rest in the right lower extremity with ankle- brachial index 1.09 which is unchanged from prior study in April 2021. Triphasic waveform at the ankle. 2. No arterial insufficiency at rest in the left lower extremity with ankle- brachial index 1.16. This is improved from pre intervention value of 0.79 in April 2021. Triphasic waveform at the ankle. Measurements: RightValueLeftValue Electronically Signed By: Phoenix Loredo MD 2021-07-09 14:16:02 CDT Procedure Note Phoenix Loredo MD - 07/09/[address] [place] [address] Ankle Brachial Index Report Patient Name: CANDACE HARTLEYORESPatient ID: [id number] : 1965 (56y 2m) Gender: FStudy Date: 07/09/2021 1:32:00 PM Order Provider: PHOENIX LOREDOQuality: Adequate Ref.Provider: PHOENIX LOREDO Procedures: Arterial Report: A bilateral extremities ankle/brachial index wasperformed. Indications: Post-Op vascular surgery Conclusions: 1. No arterial insufficiency at rest in the right lower extremity withankle- brachial index 1.09 which is unchanged from prior study in April 2021. Triphasicwaveform at the ankle. 2. No arterial insufficiency at rest in the left lower extremity withankle- brachial index 1.16. This is improved from pre intervention value of 0.79 in April2021. Triphasic waveform at the ankle. Measurements: RightValueLeftValue Electronically Signed By: Phoenix Loredo MD 2021-07-09 14:16:02 CDT Phoenix Loredo MD [facility] PROCEDURES Final Result * PERIPHERAL ANGIOGRAPHY, REVAS ENDOVASILIAC W STNT 38972, ANGIOGRAPHY UNILATERAL EXTREMITY S&I 19542, AORTOG ABD+STEFANY LOW EXTRM (05/13/2021 9:11 AM CDT) Anatomical Region Laterality Modality X-Ray Angiograph y 05/13/2021 Narrative 05/16/2021 11:36 AM CDT [employer] Job ID: [id number] [employer] Document ID: [id number] Dictated date/time: [id number] PERIPHERAL ANGIOGRAPHY AND INTERVENTION A 56-year-old with history of peripheral vascular disease and prior stenting of the aortic bifurcation extending into the common iliac arteries in 2015, with additional stenting of the external iliac artery years later. ??She now has new left leg pain with walking. ??Ankle-brachial index was 0.79 on the left and 1.12 on the right. ??She was referred for angiography and possible intervention. INDICATIONS FOR PROCEDURE Peripheral arterial disease with left lower extremity claudications. PROCEDURE PERFORMED Abdominal aortography, bilateral lower extremity angiography, stenting of the left external iliac artery, and vascular access closure. After obtaining informed consent, patient was brought to the cardiac semiconductor lab technician suite. ??She was prepped and draped in the usual sterile fashion. ?? Conscious sedation was administered by the semiconductor lab technician staff under my supervision. ??A total of 4 mg of Versed, 100 mcg of fentanyl, and 25 mg of Benadryl were given in divided doses. ??See procedure log for further details. ??Total sedation time was 37 minutes. ??A 5-Guatemalan sheath was inserted in the left femoral artery. ??Ipsilateral lower extremity angiography was performed using sheath injection. ??A pigtail catheter was advanced to the abdominal aorta and used to perform abdominal aortography and runoff of the right lower extremity. ??The sheath was then upsized to 7-Guatemalan for intervention on the left lower extremity, as will be detailed below. ??At the end of the procedure, the arterial sheath was removed and vascular access was closed using Angio-Seal with good hemostasis. FINDINGS The lower abdominal aorta was of normal caliber. ??There were stents in the distal abdominal aorta extending to a short distance in the common iliac artery on the right and into the left common iliac artery and with additional ??stents extending into the external iliac artery. ??All the stents were patent except for area of focal in-stent restenosis in the left external iliac artery. The common femoral and profunda and superficial femoral arteries and popliteal arteries were widely patent bilaterally. ??There was 3-vessel runoff bilaterally. ??The main runoff was through the anterior tibial on the right and there was more balance on the left with the posterior tibial having a high take-off. INTERVENTION ON THE LEFT EXTERNAL ILIAC ARTERY I felt that the cause for her recurrent symptoms and impaired ankle-brachial index is related to development of in-stent restenosis within a self-expanding stent. ??This was associated with 30 mm gradient on pullback. ??The area was then stented using 8 x 38 mm LifeStream covered stent as deployed at nominal pressure and post-dilated using 8 mm balloon with good angiographic results and resolution of the gradient. IMPRESSION 1. Patent previously-implanted covered stents in the distal abdominal aorta extending into the common iliac arteries bilaterally. 2. Patent previously-implanted stent in the left external iliac artery with area of in-stent restenosis treated using 8 x 38 mm LifeStream covered stent post-dilated using 8 mm balloon. 3. No evidence of femoral or popliteal disease or infrapopliteal disease on either side. 4. Successful vascular access closure. CARE PLAN Continue patient on antiplatelet therapy and assess improvement of her symptoms and ankle-brachial index. Phoenix Loredo MD JOB ID/VF JOB ID: ??[id number] Phoenix Loredo MD CV CARDIAC CATH PROCEDURES Ivette l Result documented in this encounter Visit Diagnoses Diagnosis PVD (peripheral vascular disease) (HCC)- Primary Unspecified peripheral vascular disease PVD (peripheral vascular disease) (HCC) Unspecified peripheral vascular disease PVD (peripheral vascular disease) (HCC) Unspecified peripheral vascular disease Encounter for screening colonoscopy documented in this encounter Admitting Diagnoses Diagnosis PVD (peripheral vascular disease) (HCC) Unspecified peripheral vascular disease documented in this encounter Administered Medications Inactive Administered Medications - up to 3 most recent administrations Medication Order MAR Action Action Date Dose Rate Site acetaminophen (TYLENOL) tablet 650 mg 650 mg, oral, Once, On Laura 05/13/21 at 1245, For 1 dose, Pre-Procedure (CV) Given 05/13/2021 12:09 PM CDT 650 mg ALPRAZolam (XANAX) tablet 0.5 mg 0.5 mg, oral, Once, On Laura 05/13/21 at 0815, For 1 dose, Pre-Procedure (CV) Given 05/13/2021 7:46 AM CDT 0.5 mg diphenhydrAMINE (BENADRYL) injection Administer over 2 Minutes, As needed, Starting on Laura 05/13/21 at 0852, Intra-Procedure (CV) Given 05/13/2021 8:52 AM CDT 25 mg diphenhydrAMINE (BENADRYL) tab/cap 25 mg 25 mg, oral, Once, On Laura 05/13/21 at 0815, For 1 dose, Pre-Procedure (CV) Given 05/13/2021 7:47 AM CDT 25 mg fentaNYL (SUBLIMAZE) preservative free injection As needed, Starting on Laura 05/13/21 at 0833, Intra-Procedure (CV) Given 05/13/2021 8:33 AM CDT 100 mcg heparin 1,000 unit/mL injection As needed, Starting on Laura 05/13/21 at 0901, Intra-Procedure (CV) Given 05/13/2021 9:01 AM CDT 3,000 Units lidocaine PF (XYLOCAINE) 10 mg/mL (1 %) preservative free injection As needed, Starting on Laura 05/13/21 at 0849, Intra-Procedure (CV) Given 05/13/2021 8:49 AM CDT 5 mL Left Groin midazolam (VERSED) 1 mg/mL preservative free injection Administer over 2 Minutes, As needed, Starting on Laura 05/13/21 at 0833, Intra-Procedure (CV) Given 05/13/2021 8:54 AM CDT 2 mg Given 05/13/2021 8:33 AM CDT 2 mg ondansetron (ZOFRAN) injection Administer over 2 Minutes, As needed, Starting on Laura 05/13/21 at 0833, Intra-Procedure (CV) Given 05/13/2021 8:33 AM CDT 4 mg sodium chloride 0.9% infusion 50 mL/hr, intravenous, Once, On Laura 05/13/21 at 0815, For 1 dose, Pre-Op New Bag 05/13/2021 7:46 AM CDT 100 mL/hr 100 mL/hr sodium chloride 0.9% infusion 250 mL/hr, intravenous, Continuous, Starting on Laura 05/13/21 at 1000, For 4 hours, Recovery (CV) Rate/Dose Change 05/13/2021 9:30 AM CDT 250 mL/hr 250 mL/hr documented in this encounter Active and Recently Administered Medications Times are shown in CDT. Scheduled Medication Order 05/11/2021 05/12/2021 05/13/2021 acetaminophen (TYLENOL) tablet 650 mg (COMPLETED) 650 mg, oral, Once, On Laura 05/13/21 at 1245, For 1 dose, Pre-Procedure (CV) 1209 (Given - Provid er: Francisca Leija RN) ALPRAZolam (XANAX) tablet 0.5 mg (COMPLETED) 0.5 mg, oral, Once, On Laura 05/13/21 at 0815, For 1 dose, Pre-Procedure (CV) 0746 (Given - Provid er: Caroline Zimmerman RN) diphenhydrAMINE (BENADRYL) tab/cap 25 mg (COMPLETED) 25 mg, oral, Once, On Laura 05/13/21 at 0815, For 1 dose, Pre-Procedure (CV) 0747 (Given - Provid er: Caroline Zimmerman RN) sodium chloride 0.9% infusion (COMPLETED) 50 mL/hr, intravenous, Once, On Laura 05/13/21 at 0815, For 1 dose, Pre-Op 0746 (New Bag - Prov ider: Caroline Zimmerman RN)0930 (Stopped - Provider: Francisca Leija RN) Continuous Medication Order 05/11/2021 05/12/2021 05/13/2021 sodium chloride 0.9% infusion 250 mL/hr, intravenous, Continuous, Starting on Laura 05/13/21 at 1000, For 4 hours, Recovery (CV) 0930 (Rate/Dose Patel ge - Provider: Caroline Zimmerman, RN)1242 (Stopped - Provider: Caroline Zimmerman RN) PRN Medication Order 05/11/2021 05/12/2021 05/13/2021 diphenhydrAMINE (BENADRYL) injection (CANCELED) Administer over 2 Minutes, As needed, Starting on Laura 05/13/21 at 0852, Intra-Procedure (CV) 0852 (Given - Provid er: Mandy Rausch RN) fentaNYL (SUBLIMAZE) preservative free injection (CANCELED) As needed, Starting on Laura 05/13/21 at 0833, Intra-Procedure (CV) 0833 (Given - Provid er: Mandy Rausch RN) heparin 1,000 unit/mL injection (CANCELED) As needed, Starting on Laura 05/13/21 at 0901, Intra-Procedure (CV) 0901 (Given - Provid er: Mandy Rausch RN) lidocaine PF (XYLOCAINE) 10 mg/mL (1 %) preservative free injection (CANCELED) As needed, Starting on Laura 05/13/21 at 0849, Intra-Procedure (CV) 0849 (Given - Provid er: Phoenix Loredo MD) midazolam (VERSED) 1 mg/mL preservative free injection (CANCELED) Administer over 2 Minutes, As needed, Starting on Laura 05/13/21 at 0833, Intra-Procedure (CV) 0833 (Given - Provid er: Mandy Rausch RN)0854 (Given - Provider: Mandy Rausch RN) ondansetron (ZOFRAN) injection (CANCELED) Administer over 2 Minutes, As needed, Starting on Laura 05/13/21 at 0833, Intra-Procedure (CV) 0833 (Given - Provid er: Mandy Rausch RN) documented in this encounter Orders CORE MEASURES Count Last Ordered Date First Ord ered Date REASON FOR NO VTE PROPHYLAXIS AT ADMISSION 1 05/13/2021 documented in this encounter Care Teams Rock Room Worker Relationship Specialty Start Date End Date Emerson Allen MD PCP - General 06/03/17 07/05/21 Phoenix Loredo MD Consulting Physician Cardiology 01/04/19 [place] [address] [place] [address] [employer] [facility]ne[facility] 04/19/21 documented as of this encounter
--- OUTSIDE RECORDS SUMMARY | 2024-10-13 04:09 | XMS_ITS | Encounter Summary ---
Author Organization [facility] Address [address] [place] [id number] Care Team Providers Care Marketing Information Manager Name Role Phone Emerson Allen MD Primary Care Provider [phone] Phoenix Loredo MD Unavailable [phone] Reason for Visit * Reason Comments COVID-19 EVALUATION Productive cough, SO B, and sinus pressure x1 month. Encounter Details Date Type Department Care Team (Late st Contact Info) Description 02/27/2021 5:30 PM CDT Office Visit [facility] [address] [place] [address] [place] [address] Roxana Maria, CRISTIANO [address] [facility] [address] [place] [id number] Acute non-recurrent maxillary sinusitis (Primary Dx) Social History Tobacco Use Types Packs/Day Years Used Date Smoking Tobacco: Every Day Cigarettes Smokeless Tobacco: Never Tobacco Cessation:Ready to Q uit: No; Counseling Given: No Comments:Smoking History Packs/day: 0.5 Packs Alcohol Use Standard Drinks/Week Comments No 0 (1 standard drink = 0.6 oz pur e alcohol) PHQ-2 Answer Date Recorded PHQ-2 Total Score (If total score is 3 or more points, staff should administer the PHQ-9) 0 06/19/2020 Comments No Sex and Gender Information Value Date Recorded Sex Assigned at Not on file Legal Sex Female 8:44 AM CORDWAINER Gender Identity Not on file Sexual Orientation Not on file documented as of this encounter Last Filed Vital Signs Vital Sign Reading Time Taken Comments Blood Pressure 126/82 02/27/2021 5:27 PM CDT Pulse 86 02/27/2021 5:27 PM CDT Temperature 37 ??C (98.6 ??F) 02/27/2021 5:27 PM CDT Respiratory Rate 16 02/27/2021 5:27 PM CDT Oxygen Saturation 97% 02/27/2021 5:27 PM CDT Inhaled Oxygen Concentration - - Weight 78.9 kg (174 lb) 02/27/2021 5:27 PM CDT Height 154.9 cm (5' 1 ) 02/27/2021 5:27 PM CDT Body Mass Index 32.88 02/27/2021 5:27 PM CDT documented in this encounter Patient Instructions * Patient Instructions* Roxana Maria, CRISTIANO - 02/27/2021 5:30 PM CDT Research has proven that unless you are [...] same utensils or glass, and use hand marble rubber before touching people or common surfaces. - [...] high fever >101, go to the EmergencyRoom. documented in this encounter Ordered Prescriptions Prescription Sig Dispense Quantity Refills Last Filled Start Date End Date predniSONE (DELTASONE) 20 mg tabletIndications: Acute non-recurrent maxillary sinusitis Take 1 tablet (20 mg) by mouth daily for 7 days 7 tablet 02/27/2021 03/06/2021 amoxicillin-clavul anate (AUGMENTIN) 875-125 mg per tabletIndications: Acute non-recurrent maxillary sinusitis Take 1 tablet by mouth 2 (two) times a day for 10 days 20 tablet 02/27/2021 03/09/2021 documented in this encounter Progress Notes * Roxana Maria NP - 02/27/2021 5:30 PM CDT Images from the original note were not included. Patient ID: Mirtha Cherry is a 55 y.o. female followed by Emerson Allen MD Patient was wearing the following PPE: mask. Provider was wearing the following PPE: mask, gloves, goggles Patient presents to clinic for assessment of Chief Complaint Patient presents with ??? COVID-19 EVALUATION Productive cough, SOB, and sinus pressure x1 month. . Patient reports PRODUCTIVE COUGH, SHORTNESS OF BREATH, NASAL CONGESTION, NASAL DRAINAGE and SINUS PRESSURE Patient reports this has been going on for 30 days. Patient with sick or suspected COVID-19 contacts: NO Patient has following risks for COVID-19: Patient has chronic lung disease Past Medical History: Diagnosis Date ??? Asthma Asthma; Comments: DNT 07/10/2014 - ??? Gastroesophageal reflux disease GERD ??? 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 HX OTHER MEDICAL 02-DIETITIAN THERAPEUTIC ??? HX OTHER MEDICAL 2010 capal tunnel [...] each iliac. 3 surgeries. last procedure 01/08/2008 Current Outpatient Medications Medication Sig Dispense Refill ??? albuterol (PROVENTIL,VENTOLIN) 2.5 mg /3 mL (0.083 %) nebulizer solution Take 3 mL (2.5 mg total) by nebulization every 6 (six) hours as needed for wheezing 75 mL 2 ??? albuterol HFA (PROVENTIL HFA,VENTOLIN HFA,PROAIR HFA) 90 mcg/actuation inhaler Inhale 2 puffs every 6 (six) hours as needed for wheezing 1 Inhaler 2 ??? aspirin 81 mg tablet Take 81 mg by mouth. ??? atorvastatin (LIPITOR) 40 mg tablet Take 1 tablet (40 mg total) by mouth daily 90 tablet 3 ??? clopidogreL (PLAVIX) 75 mg tablet Take 1 tablet (75 mg total) by mouth daily 90 tablet 3 ??? coenzyme Q10 (CO Q-10) 200 mg capsule Take 1 capsule by oral route every day 0 0 ??? fluticasone propionate (FLONASE) 50 mcg/actuation nasal spray SHAKE LIQUID AND USE 1 SPRAY IN EACH NOSTRIL DAILY 16 g 2 ??? Lactobacillus acidophilus (PROBIOTIC) 10 billion cell capsule Take 1 capsule by oral route every day 0 0 ??? loratadine (CLARITIN) 10 mg tablet Take 10 mg by mouth daily. ??? multivitamin capsule Take 1 capsule by mouth daily. ??? pimecrolimus (ELIDEL) 1 % cream Apply topically 2 (two) times a day 30 g 1 ??? SUMAtriptan (IMITREX) 50 mg tablet May repeat dose once in 2 hours if no relief. Do not exceed 2 doses in 24 hours. 9 tablet 2 ??? amoxicillin-clavulanate (AUGMENTIN) 875-125 mg per tablet Take 1 tablet by mouth 2 (two) times a day for 10 days 20 tablet 0 ??? famotidine (Pepcid) 40 mg tablet Take 1 tablet (40 mg total) by mouth 2 (two) times a day 180 tablet 3 ??? predniSONE (DELTASONE) 20 mg tablet Take 1 tablet (20 mg) by mouth daily for 7 days 7 tablet 0 No current facility-administered medications for this visit. Immunization History Administered Date(s) Administered ??? Influenza, Quadrivalent, Split, Intramuscular 07/09/2015 ??? Influenza, Quadrivalent, Split, Preservative Free, Intramuscular 07/07/2018, 07/08/2019, 07/03/2020 ??? Influenza, Split 07/22/2011 ??? Influenza, Trivalent, Intramuscular 08/21/2014 ??? Influenza, Unspecified 07/09/2017 ??? Pneumococcal Polysaccharide PPV23 12/17/2009 Social History Tobacco Use Smoking Status Current Every Day Smoker ??? Packs/day: 1.00 Smokeless Tobacco Never Used Tobacco Comment Smoking History Packs/day: 0.5 Packs Vitals: 02/27/21 1727 BP: 126/82 Pulse: 86 Resp: 16 Temp: 37 ??C (98.6 ??F) SpO2: 97% Weight: 78.9 kg (174 lb) Height: 154.9 cm (5' 1 ) Chief Complaint Patient presents with ??? COVID-19 EVALUATION Productive cough, SOB, and sinus pressure x1 month. Presents to clinic for productive cough, shortness of breath, sinus congestion, pressure x1 month. SHe has used sudafed, allergy meds. The past 5 days, she has been unable to lie down at night. She has also noticed her teeth hurting. Denies fever. States she gets a sinus infection usually once a year that requires steroids & antibiotics. Sinus Problem This is a new problem. The current episode started 1 to 4 weeks ago. The problem has been graduallyworsening since onset. There has been no fever. Associated symptoms include coughing, shortness of breath and sinus pressure. Pertinent negatives include no congestion, ear pain, headaches or sore throat. Past treatments include oral decongestants and spray decongestants. The treatment provided mild relief. Review of Systems Constitutional: Negative for activity change, appetite change, fatigue and fever. HENT: Positive for postnasal drip, rhinorrhea, sinus pressure and sinus pain. Negative for congestion, ear discharge, ear pain and sore throat. Eyes: Negative for discharge. Respiratory: Positive for cough and shortness of breath. Gastrointestinal: [...] normal. Nose: No congestion or rhinorrhea. Right Turbinates: Swollen. Left Turbinates: Swollen. Right Sinus: Maxillary sinus tenderness present. No frontal sinus tenderness. Left Sinus: Maxillary sinus tenderness present. No frontal sinus tenderness. Mouth/Throat: Lips: [place]. Mouth: Mucous membranes are moist. Pharynx: Oropharynx [...] Content: Thought content normal. Judgment: Judgment normal. Assessment/Plan If you were prescribed any medication, take the medication until gone If you have a congested cough with thick mucus, you can use Mucinex DM Cough meds like Dayquil/Delsym can be used Sudafed for nasal congestion Flonase for sinuses Zyrtec/Claritin for drainage Drink plenty of fluids to stay hydrated If you experience any shortness of breath or chest tightness- go to ER for further treatment If you are not getting any better- follow up w PCP in 5-7 days Diagnoses and all orders for this visit: Acute non-recurrent maxillary sinusitis (Primary) - amoxicillin-clavulanate (AUGMENTIN) 875-125 mg per tablet; Take 1 tablet by mouth 2 (two) times aday for 10 days - predniSONE (DELTASONE) 20 mg tablet; Take 1 tablet (20 mg) by mouth daily for 7 days No orders of the defined types were placed in this encounter. documented in this encounter Plan of Treatment Upcoming Encounters Date Type Department Care Team (Late st Contact Info) Description 02/04/2025 9:30 AM CDT Hospital Encounter [address] [address] Vic Gaines DO [address] [address] 02/04/2025 9:30 AM CDT - 02/04/2025 10:00 AM CDT Surgery [address] [address] Vic Gaines, DO [address] [address] COLONOSCOPY Scheduled Procedures Name Priority Associated Diagnoses Date/Ti la COLONOSCOPY Encounter for screening colonoscopy 02/04/2025 9:30 AM CDT documented as of this encounter Visit Diagnoses Diagnosis Acute non-recurrent maxillary sinusitis- Primary Encounter for screening colonoscopy documented in this encounter Additional Health Concerns Infection Onset Date Last Indicated Resolved Time COVID: Suspected 02/27/2021 02/27/2021 02/27/2021 5:36 PM CDT documented as of this encounter Care Teams Marketing Information Manager Relationship Specialty Start Date End Date Emerson Allen MD PCP - General 06/03/17 07/05/21 Phoenix Loredo MD Consulting Physician Cardiology 01/04/19 documented as of this encounter
--- OUTSIDE RECORDS SUMMARY | 2024-10-13 04:09 | XMS_ITS | Encounter Summary ---
Author Organization [facility] Address [address] [address] Care Team Providers Care Process Lead Name Role Phone Phoenix Loredo MD Unavailable [phone] Aylin Lundy MD Unavailable [phone] Celine Solano NP Primary Care Provider [phone] Reason for Referral * Consultation (Routine) - Closed Specialty Diagnoses / Procedures Referred By Contac t Referred To Contact Pulmonary Disease / Pulmonology Diagnoses Asthma, unspecified asthma severity, unspecified whether complicated, unspecified whether persistent Keturah Malik NP [address] [place] [address] [address] Phone: tel: fax: Ho Mejias MD Phone: tel: fax: Referral ID Status Reason Start Date Expiration Date V isits Requested Visits Authorized [id number] Closed Specialty Services Required 07/12/2021 08/11/2022 1 1 Question Answer Please select the performing region: [facility] [[id number]] Please select the performing department: [facility] [[id number]] To provider: HO MEJIAS [[id number]] # of visits: [address] Loredo for Asthma and Sleep Apnea Eval. * Diagnostic Imaging (Routine) - Closed Specialty Diagnoses / Procedures Referred By Contac t Referred To Contact Diagnoses Atherosclerosis of [place] arteries of extremities with intermittent claudication, bilateral legs (HCC) Procedures [facility] Keturah Malik NP [address] [place] [address] Phone: tel: fax: [address] [phone] Referral ID Status Reason Start Date Expiration Date Visits Re quested Visits Authorized [id number] Closed 07/12/2021 08/11/2022 1 1 * Cardiology (Routine) - Closed Specialty Diagnoses / Procedures Referred By Contac t Referred To Contact Diagnoses Irregular heart beat Procedures Event Monitor, 30 Day Event Keturah Malik NP [address] [place] [address] Phone: tel: fax: [address] [phone] Referral ID Status Reason Start Date Expiration Date Visits Re quested Visits Authorized [id number] Closed 07/12/2021 08/11/2022 1 1 Reason for Visit * Reason Comments Follow-up Hyperlipidemia Encounter Details Date Type Department Care Team (Late st Contact Info) Description 07/12/2021 3:00 PM CDT Office Visit [place] [employer] [address] [id number] Keturah Malik NP [address] [facility] [address] [address] Irregular heart beat (Primary Dx); Atherosclerosis of [place] arteries of extremities with intermittent claudication, bilateral legs (HCC); Asthma, unspecified asthma severity, unspecified whether complicated, unspecified whether persistent; PVD (peripheral vascular disease) (CMS/HCC) (HCC); Multiple-type hyperlipidemia; Mixed hyperlipidemia; Bilateral carotid artery stenosis; Palpitations Social History Tobacco Use Types Packs/Day Years [...] on file 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 Gender Identity Not on file Sexual Orientation Not on file documented as of this encounter Last Filed Vital Signs Vital Sign Reading Time Taken Comments Blood Pressure 127/75 07/12/2021 3:05 PM CDT Pulse 95 07/12/2021 3:05 PM CDT Temperature 36.3 ??C (97.4 ??F) 07/12/2021 3:05 PM CD T Respiratory Rate 16 07/12/2021 3:05 PM CDT Oxygen Saturation - - Inhaled Oxygen Concentration - - Weight 73.9 kg (162 lb 14.4 oz) 07/12/2021 3:05 PM CDT Height 154.9 cm (5' 1 ) 07/12/2021 3:05 PM CDT Body Mass Index 30.78 07/12/2021 3:05 PM CDT documented in this encounter Progress Notes * Keturah Malik NP - 07/12/2021 3:00 PM CDT Cardiology note Reason for Office [...] mm balloon) covered stents in 2007 at [facility]. Patient had balloon angioplasty done for repeat stenosis in 2014. 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 US doppler showed [...] but has never been diagnosed with TROY. Weight: 161 lbs Review of Systems: Review [...] reflux disease GERD ??? 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 HX OTHER MEDICAL 2010 capal tunnel [...] for this visit. Vital Signs: Vitals BP 127/75 (BP Location: Right arm, Patient Position: Sitting) Pulse 95 Temp 36.3 ??C (97.4 ??F) Resp 16 Ht 154.9 cm (5' 1 ) Wt 73.9 kg (162 lb 14.4 oz) LMP (LMP Unknown) BMI 30.78 kg/m?? Vitals: 07/12/21 1505 BP: 127/75 Pulse: 95 Resp: 16 Temp: 36.3 ??C (97.4 ??F) Wt Readings from Last 3 Encounters: 07/12/21 73.9 kg (162 lb 14.4 oz) 05/13/21 72.6 kg (160 lb) 04/26/21 72.6 kg (160 lb) Body mass index is 30.78 kg/m??. Physical Exam: Physical Exam Constitutional: General: [...] 04/10/2021 Lab Results Component Value Date SODIUM 140 04/29/2021 POTASSIUM 4.5 04/29/2021 CHLORIDE 105 04/29/2021 CO2 26 04/29/2021 ANIONGAP 10 04/29/2021 No results found for: BNP Lab Results Component Value Date SODIUM 140 04/29/2021 SODIUM 141 04/10/2021 SODIUM 140 06/13/2020 POTASSIUM 4.5 04/29/2021 POTASSIUM 4.1 04/10/2021 POTASSIUM 4.2 06/13/2020 CHLORIDE 105 04/29/2021 CHLORIDE 106 04/10/2021 CHLORIDE 104 06/13/2020 CO2 26 04/29/2021 CO2 25 04/10/2021 CO2 26 06/13/2020 BUNSER 9 04/29/2021 BUNSER 14 04/10/2021 BUNSER 15 06/13/2020 CREATININE 0.95 04/29/2021 CREATININE 0.72 04/10/2021 CREATININE 0.91 06/13/2020 GFRNAA 66 04/29/2021 GFRNAA 94 04/10/2021 GFRNAA 71 06/13/2020 GLUCOSE 93 04/29/2021 CALCIUM 9.1 04/29/2021 CALCIUM 8.8 04/10/2021 CALCIUM 9.5 06/13/2020 ALBUMIN 4.1 04/10/2021 ALBUMIN 4.3 06/13/2020 ALBUMIN 4.3 12/21/2019 Lab Results Component Value Date SODIUM 140 04/29/2021 POTASSIUM 4.5 04/29/2021 CHLORIDE 105 04/29/2021 CO2 26 04/29/2021 ANIONGAP 10 04/29/2021 BUNSER 9 04/29/2021 CREATININE 0.95 04/29/2021 GLUCOSE 93 04/29/2021 CALCIUM 9.1 04/29/2021 BILITOT 0.3 04/10/2021 PROT 6.4 (L) 04/10/2021 ALBUMIN 4.1 04/10/2021 ALKPHOS 93 04/10/2021 ALT 24 04/10/2021 AST 20 04/10/2021 Lab Results Component Value Date WBC 9.1 04/29/2021 HGB 15.5 04/29/2021 HCT 46.8 (H) 04/29/2021 LABPLAT 216 04/29/2021 MPV 10.7 04/29/2021 RBC 5.11 04/29/2021 MCV 91.6 04/29/2021 MCH 30.3 04/29/2021 MCHC 33.1 04/29/2021 RDWCV 13.0 04/29/2021 RDWSD 44.3 04/29/2021 NRBCABS 0.00 04/29/2021 Lab Results Component Value Date CHOL 157 [...] 07/2016 SR , possible old anterior HI AIF 05/2021 IMPRESSION 1. Patent previously-implanted covered [...] April 2021. Triphasic waveform at the ankle. EKG 07/12/2021 showed sinus rhythm with PVCs. [...] 8 mm balloon. Follow up ABE 07/2021 was normal. #2 Hyperlidemia- followed by PCP, LDL above target #3 Tobacco abuse, ongoing trying to quit #4 Carotid stenosis, mild by duplex 07/2021 #5 Blood pressure improved continue to monitor Plan: Continue same medication regimen. Continue tight control of blood pressure and cholesterol. Continue diet, exercise, and weight reduction. Smoking cessation discussed with patient including the potential health risks. Patient was given options of different aids for smoking cessation. Will continue the discussion. Referral to [facility] model for evaluation of TROY. 14 Day monitor to assess for arrhythmias. RTC 3 months with ABE Diagnoses and all orders for this visit: Irregular heart beat (Primary) - ECG 12 lead - Event Monitor, 30 Day Event; Future Atherosclerosis of [place] arteries of extremities with intermittent claudication, bilateral legs (HCC) - US ABE; Future Asthma, unspecified asthma severity, unspecified whether complicated, unspecified whether persistent - Ambulatory referral to Pulmonology; Future PVD (peripheral vascular disease) (CMS/HCC) (HCC) Multiple-type hyperlipidemia Mixed hyperlipidemia Bilateral carotid artery stenosis Palpitations Return in about 3 months (around 10/12/2021). 07/12/2021 @ 4:06 PM Keturah Malik NP Cc:Celine Solano NP documented in this encounter Plan of Treatment Upcoming Encounters Date Type Department Care Team (Late st Contact Info) Description 02/04/2025 9:30 AM CDT Hospital Encounter [address] [address] Vic Gaines, DO 3 [facility] [address] [place] [address] 02/04/2025 9:30 AM CDT - 02/04/2025 10:00 AM CDT Surgery [address] [address] Vic Gaines, DO 3 [facility] [address] [place] [address] COLONOSCOPY Scheduled Procedures Name Priority Associated Diagnoses Date/Ti me COLONOSCOPY Encounter for screening colonoscopy 02/04/2025 9:30 AM CDT Scheduled Referrals Name Type Priority Associated Diagnoses Orde r Schedule Ambulatory referral to Pulmonology Outpatient Referral Routine Asthma, unspecified asthma severity, unspecified whether complicated, unspecified whether persistent Expected: 07/12/2021 (Approximate), Expires: 07/12/2022 documented as of this encounter Procedures Procedure Name Priority Date/Time Associated Diagnosis Comments ECG 12-LEAD Routine 07/12/2021 Irregular heart beat documented in this encounter Results * US ABE (10/15/2021 8:30 AM ECONOMIC SPECIALIST) Anatomical Region Laterality Modality Vascular N/A Ultrasound 10/15/2021 8:06 AM ECONOMIC SPECIALIST Narrative 10/15/2021 11:31 AM ECONOMIC SPECIALIST [address] [place] [address] Ankle Brachial Index Report Patient Name: MOSHE HARTLEY ?? 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 Indications: Claudication. Conclusions: 1. No arterial insufficiency in either lower extremitiy with ABE of 1.0 on the right and 1.1 on the left. 2. Triphasic waveform at the ankle bilaterally. 3. results unchanged fomr prior study in 07/2021. Measurements: RightValueLeftValue Electronically Signed By: Phoenix Loredo MD 2021-10-15 11:31:18 ECONOMIC SPECIALIST Procedure Note Phoenix Loredo MD - 10/15/[address] [place] [address] Ankle Brachial Index Report Patient Name: JT HARTLEYatient ID: [id number] : 1965 (56y 5m) Gender: FStudy Date: 10/15/2021 8:06:00 AM Order Provider: KETURAH MALIKQuality: Adequate Ref.Provider: KETURAH MALIK Procedures: Arterial Report: A bilateral extremities ankle/brachial index wasperformed. Indications: Claudication. Conclusions: 1. No arterial insufficiency in either lower extremitiy with ABE of 1.0 onthe right and 1.1 on the left. 2. Triphasic waveform at the ankle bilaterally. 3. results unchanged fomr prior study in 07/2021. Measurements: RightValueLeftValue Electronically Signed By: Phoenix Loredo MD 2021-10-15 11:31:18 ECONOMIC SPECIALIST Keturah Malik NP IMG US PROCEDURES Final Res ult * Event Monitor, 30 Day Event (08/03/2021 9:27 AM CDT) Anatomical Region Laterality Modality Electrocardiogra phy 08/03/2021 8:30 AM CDT Narrative 09/03/2021 7:48 AM ECONOMIC SPECIALIST [address] [address] EVENT MONITOR Patient Name: MOSHE HARTLEY H : 1965 Study Date: 08/03/2021 08:30:00 Gender: F Tech: Ref.Provider: KETURAH MALIK Height(Cm): BSA: Weight(Kg): Order Provider: KETURAH MALIK Procedures: Event Report: Event Monitor Report. Indications: Cardiac Arrhythmias Other I49.8. Conclusions: 1. Predominant rhythm is normal sinus [...] with PVCs noted. PVC burden was 11%!! Electronically Signed By: Dr Albert Liu 2021-09-03 07:48:28 ECONOMIC SPECIALIST Procedure Note Albert Liu MD - 09/03/[address] [place] [address] EVENT MONITOR Patient Name: MOSHE HARTLEY HPatient ID: [id number] : [id number] Date: 08/03/2021 08:30:00 Gender: FAccession #: [id number] Tech: Ref.Provider: KETURAH MALIK Height(Cm): BSA: Weight(Kg): Order Provider: KETURAH MALIK Procedures: Event Report: Event Monitor Report. Indications: Cardiac Arrhythmias Other I49.8. Conclusions: 1. Predominant rhythm is normal sinus rhythm with a minimum heart rate of55 beats per minute in sinus and a maximum heart rate of 150 beats per minute also insinus. 2. Heart rate and rate variability is appropriate. 3. No prolonged pauses. 4. Frequent PVCs totaling 11% of all beats. There was an asymptomatic 4 beat run of nonsustained V-tach and anotherasymptomatic 9 beat run of nonsustained V-tach. 5. There were 6 patient activated events with 2 auto triggered events.Some of the patient activated events were due to fluttering or skipped beats. Theywere associated with sinus rhythm ranging in heart rate from 81-113 beats per minute withPVCs noted. PVC burden was 11%!! Electronically Signed By: Dr Albert Liu 2021-09-03 07:48:28 ECONOMIC SPECIALIST us Keturah Malik NP CV CARDIAC SERVICES PROCEDU RES Final Result * ECG 12 lead (07/12/2021) Phoenix Loredo MD ECG ORDERABLES Edited Result - Final documented in this encounter Visit Diagnoses Diagnosis Irregular heart beat- Primary Unspecified cardiac dysrhythmia Atherosclerosis of [place] arteries of extremities with intermittent claudication, bilateral legs (HCC) Asthma, unspecified asthma severity, unspecified whether complicated, unspecified whether persistent PVD (peripheral vascular disease) (HCC) Unspecified peripheral vascular disease Multiple-type hyperlipidemia Other and unspecified hyperlipidemia Mixed hyperlipidemia Bilateral carotid artery stenosis Occlusion and stenosis of carotid artery without mention of cerebral infarction Palpitations Irregular heart beat Unspecified cardiac dysrhythmia Atherosclerosis of [place] arteries of extremities with intermittent claudication, bilateral legs (HCC) Encounter for screening colonoscopy documented in this encounter Care Teams Process Lead Relationship Specialty [place] [address] [place] [address] PCP - General Family Medicine 07/06/21 07/22/21 Phoenix Loredo MD Consulting Physician Cardiology 01/04/19 [place] [address] [place] [address] Human Resources Designate Obstetrics and Gynecology 04/19/21 documented as of this encounter
--- OUTSIDE RECORDS SUMMARY | 2024-10-13 04:09 | XMS_ITS | Encounter Summary ---
Author Organization [facility] Address [address] [facility] [address] [place] [address] Care Team Providers Care Driver Manager Name Role Phone Emerson Allen MD Primary Care Provider [phone] Phoenix Loredo MD Unavailable [phone] Aylin Lundy MD Unavailable [phone] Reason for Visit * Reason Onset Date Comments schedule colonoscopy 06/17/2021 Encounter Details Date Type Department Care Team (Late st Contact Info) Description 06/17/2021 Telephone [facility] Gastroenterology at [address] [place] [address] Viviana Kidd MA schedule colonoscopy Social History Tobacco Use Types Packs/Day Years [...] on file 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 Gender Identity Not on file Sexual Orientation Not on file documented as of this encounter Miscellaneous Notes * Telephone Encounter - Viviana Kidd MA - 06/17/2021 5:05 PM CDT Pt is scheduled for an egd with dr paul on Monday08-02-21 at 8 am, verbal instructions given andmailed to pt along with covid order documented in this encounter Plan of Treatment Upcoming Encounters Date Type Department Care Team (Late st Contact Info) Description 02/04/2025 9:30 AM CDT Hospital Encounter [address] [address] Vic Gaines, DO 3 [facility] [address] [place] [address] 02/04/2025 9:30 AM CDT - 02/04/2025 10:00 AM CDT Surgery [address] [address] Vic Gaines, DO 3 [facility] [address] [place] [address] COLONOSCOPY Scheduled Procedures Name Priority Associated Diagnoses Date/Ti me COLONOSCOPY Encounter for screening colonoscopy 02/04/2025 9:30 AM CDT documented as of this encounter Results * COVID-19 Coronavirus RNA Nasopharyngeal (07/30/2021 12:19 PM CDT) COVID-19 RNA Not Detected [facility] ([place]) Comment: Interpretive Data Synonyms for this test include: PCR and NAAT . ??Testing performed by the [facility]. The 2019-Novel Coronavirus [...] Testing performed by: [facility], [address] [facility], [address] First COVID-19 test? No [facility] ([facility]) Comment:Testing performed by : [facility], [address] [place] [address], [id number] Employeed in healthcare? No [facility] ([place]) Comment:Testing performed by : [facility], [address] [place] [address], [id number] status? No [facility] ([place]) Comment:Testing performed by : [facility], [address] [place] [address], [id number] Group care resident? No [facility] ([place]) Comment:Testing performed by : [facility], [address] [place] [address], [address] Hospitalized? No [facility] ([place]) Comment:Testing performed by : [facility], [address] [facility], [address] Is patient in ICU? No [facility] ([place]) Comment:Testing performed by : [facility], [address] [place] [address], [address] Symptomatic as defined by CDC? No [facility] ([place]) Comment:Testing performed by : [facility], [address] [place] [address], [id number] Nasopharyngeal 07/30/2021 12 :19 PM CDT 07/30/2021 5:29 PM CDT Narrative [facility] ([place]) - 07/31/2021 2:03 AM CDT What is the reason for testing?->Screening prior to scheduled procedure or surgery (batch) Chuck Paul MD LAB MICROBIOLOGY - GENERAL OR DERABLES Final Result [facility] ([place]) [address] [facility] [place] [address] documented in this encounter Visit Diagnoses Diagnosis Dysphagia, unspecified type- Primary Pre-procedure lab exam Pre-procedural laboratory examination Pre-procedure lab exam Pre-procedural laboratory examination Encounter for screening colonoscopy documented in this encounter Orders Case Request Count Last Ordered Date First Orde red Date CASE REQUEST GI 1 06/17/2021 documented in this encounter Care Teams Driver Manager Relationship Specialty Start Date End Date Emerson Allen MD PCP - General 06/03/17 07/05/21 Phoenix Loredo MD Consulting Physician Cardiology 01/04/19 [place] [address] [place] [address] Ink Printer Obstetrics and Gynecology 04/19/21 documented as of this encounter
--- OUTSIDE RECORDS SUMMARY | 2024-10-13 04:09 | XMS_ITS | Encounter Summary ---
Author Organization [facility] Address [address] [place] [address] Care Team Providers Care Car Lot Attendant Name Role Phone Emerson Allen MD Primary Care Provider [phone] Phoenix Loredo MD Unavailable [phone] Aylin Lundy MD Unavailable [phone] Reason for Referral * Diagnostic Imaging (Routine) - Closed Specialty Diagnoses / Procedures Referred By Contac t Referred To Contact Diagnoses Carotid bruit, unspecified laterality Procedures US Carotids Duplex Bilateral Phoenix Loredo MD Phone: tel: fax: [facility] [address] [place] [address] Referral ID Status Reason Start Date Expiration Date Visits Re quested Visits Authorized [id number] Closed 04/26/2021 05/26/2022 1 1 Reason for Visit * Reason Comments Peripheral Artery Disease Encounter Details Date Type Department Care Team (Late st Contact Info) Description 04/26/2021 9:45 AM CDT Office Visit [place] Founder And President 2 [facility] [address] [place] [address] Phoenix Loredo MD [address] [place] [address] [address] [place] [address] PVD (peripheral vascular disease) (CMS/HCC) (HCC) (Primary Dx); Dyslipidemia; Tobacco dependence syndrome; Atherosclerosis of habematolel arteries of extremities with intermittent claudication, bilateral legs (HCC); Carotid bruit, unspecified laterality Social History Tobacco Use Types Packs/Day Years Used Date Smoking Tobacco: Every Day Cigarettes Smokeless Tobacco: Never Comments:Smoking History Pac ks/day: [...] on file 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 Gender Identity Not on file Sexual Orientation Not on file documented as of this encounter Last Filed Vital Signs Vital Sign Reading Time Taken Comments Blood Pressure 122/73 04/26/2021 10:04 AM CDT Pulse 81 04/26/2021 10:04 AM CDT Temperature 36.8 ??C (98.3 ??F) 04/26/2021 10:04 AM C DT Respiratory Rate 18 04/26/2021 10:04 AM CDT Oxygen Saturation - - Inhaled Oxygen Concentration - - Weight 72.6 kg (160 lb) 04/26/2021 10:04 AM CDT Height 154.9 cm (5' 1 ) 04/26/2021 10:04 AM CDT Body Mass Index 30.23 04/26/2021 10:04 AM CDT documented in this encounter Progress Notes * Phoenix Loredo MD - 04/26/2021 9:45 AM [...] mm balloon) covered stents in 2007 at [facility]. Patient had balloon angioplasty done for repeat stenosis in 2014. Patient was going to undergo bunion surgery and refered by clinic md associate for weak pedal pulses. US doppler showed [...] reflux disease GERD ??? 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 HX OTHER MEDICAL 2010 capal tunnel [...] the ankle. EK12/2015 SR possible old anterior ND 07/2016 SR , possible old anterior ND Diagnoses and Plan Assessment: #1 PAD, Bilateral [...] for this visit: PVD (peripheral vascular disease) ([facility]) (Primary) Dyslipidemia Tobacco dependence syndrome Return in about 3 months (around 07/27/2021). 04/26/2021 @ 10:25 AM Phoenix Loredo MD Cc:Emerson Allen MD documented in this encounter Miscellaneous Notes * Addendum Note - Paige Hernadez MA - 04/26/2021 9:45 AM CDTAddended by: PAIGE HERNADEZ on: 04/26/2021 10:36 AM Modules accepted: Orders documented in this encounter Plan of Treatment Upcoming Encounters Date Type Department Care Team (Late st Contact Info) Description 02/04/2025 9:30 AM CDT Hospital Encounter [address] [address] Vic Gaines, DO 3 [facility] [place] [address] [place] [address] 02/04/2025 9:30 AM CDT - 02/04/2025 10:00 AM CDT Surgery [address] [address] Vic Gaines, DO 3 [facility] [place] [address] [place] [address] COLONOSCOPY Scheduled Procedures Name Priority Associated Diagnoses Date/Ti me COLONOSCOPY Encounter for screening colonoscopy 02/04/2025 9:30 AM CDT documented as of this encounter Results * US Carotids Duplex Bilateral (07/09/2021 2:00 PM CDT) Anatomical Region Laterality Modality Vascular Bilateral Ultrasound 07/09/2021 1:18 PM CDT Narrative 07/09/2021 2:12 PM CDT [address] [address] Carotid Duplex Report Patient Name: MOSHE HARTLEY ?? : 1965 (56y 2m) ??Gender: F Study Date: 07/09/2021 13:18:42 Rail Bender: LIDA Order Provider: PHOENIX LOREDO Quality: Adequate Ref.Provider: PHOENIX LOREDO Procedures: Arterial Report: Color Duplex ultrasound examination, including velocity measurements, was performed of the extracranial carotid arteries bilaterally. Indications: Carotid Bruit R09.89. Conclusions: 1. Bilateral mild internal carotid artery stenosis. 2. Bilateral patent antegrade vertebral flow. Findings: Right ICA: Plaque in the right internal carotid artery is moderate heterogenous in echogenicity. The right internal carotid artery has 40-59% stenosis. Right Vert: The right vertebral artery is patent with antegrade flow. Left ICA: Plaque in the left internal carotid artery is moderate heterogenous in echogenicity. The left internal carotid artery has 0-39% stenosis. Left Vert: The left vertebral artery is patent with antegrade flow. Measurements: Right ? Value ?Left ?Value ? Rt ICA Prx PSV ?100.70 cm/sec ?Lt ICA Prx PSV ?72.90 cm/sec ? Rt ICA Prx EDV ?28.10 cm/sec ? Lt ICA Prx EDV ?24.90 cm/sec ? Rt ICA Mid PSV ?102.20 cm/sec ?Lt ICA Mid PSV ?104.40 cm/sec ? Rt ICA Mid EDV ?25.90 cm/sec ? Lt ICA Mid EDV ?46.90 cm/sec ? Rt ICA Dst PSV ?91.80 cm/sec ? Lt ICA Dst PSV ?107.10 cm/sec ? Rt ICA Dst EDV ?37.80 cm/sec ? Lt ICA Dst EDV ?48.90 cm/sec ? Rt CCA Prx PSV ?84.30 cm/sec ? Lt CCA Prx PSV ?94.00 cm/sec ? Rt CCA Prx EDV ?17.50 cm/sec ? Lt CCA Prx EDV ?16.30 cm/sec ? Rt CCA Mid PSV ?81.20 cm/sec ? Lt CCA Mid PSV ?89.60 cm/sec ? Rt CCA Mid EDV ?23.70 cm/sec ? Lt CCA Mid EDV ?20.70 cm/sec ? Rt CCA Dst PSV ?78.20 cm/sec ? Lt CCA Dst PSV ?74.80 cm/sec ? Rt CCA Dst EDV ?24.70 cm/sec ? Lt CCA Dst EDV ?31.80 cm/sec ? Rt ECA PSV ?154.70 cm/sec ?Lt ECA PSV ?111.80 cm/sec ? Rt ECA EDV ?30.40 cm/sec ? Lt ECA EDV ?23.00 cm/sec ? Rt Vert PSV ? 56.50 cm/sec ? Lt Vert PSV ? 49.20 cm/sec ? Rt Vert EDV ? 14.90 cm/sec ? Lt Vert EDV ? 20.60 cm/sec ? Rt ICA/CCA Ratio ?1.31 ? Lt ICA/CCA Ratio ?1.43 ? Electronically Signed By: Dr Levi Stern 2021-07-09 14:11:58 CDT Procedure Note Levi Stern, DO - 07/09/[address] [place] [address] Carotid Duplex Report Patient Name: ODILIA DOLORESPatient ID: [id number] : 1965 (56y 2m) Gender: FStudy Date: 07/09/2021 13:18:42 LIDA Doll Provider: PHOENIX LOREDOQuality: Adequate Ref.Provider: PHOENIX LOREDO Procedures: Arterial Report: Color Duplex ultrasound examination, including velocitymeasurements, was performed of the extracranial carotid arteries bilaterally. Indications: Carotid Bruit R09.89. Conclusions: 1. Bilateral mild internal carotid artery stenosis. 2. Bilateral patent antegrade vertebral flow. Findings: Right ICA: Plaque in the right internal carotid artery is moderateheterogenous in echogenicity. The right internal carotid artery has 40-59% stenosis. Right Vert: The right vertebral artery is patent with antegrade flow. Left ICA: Plaque in the left internal carotid artery is moderateheterogenous in echogenicity. The left internal carotid artery has 0-39% stenosis. Left Vert: The left vertebral artery is patent with antegrade flow. Measurements: Right Value Left Value Rt ICA Prx PSV 100.70 cm/sec Lt ICA Prx PSV 72.90 cm/sec Rt ICA Prx EDV 28.10 cm/sec Lt ICA Prx EDV 24.90 cm/sec Rt ICA Mid PSV 102.20 cm/sec Lt ICA Mid PSV 104.40 cm/sec Rt ICA Mid EDV 25.90 cm/sec Lt ICA Mid EDV 46.90 cm/sec Rt ICA Dst PSV 91.80 cm/sec Lt ICA Dst PSV 107.10 cm/sec Rt ICA Dst EDV 37.80 cm/sec Lt ICA Dst EDV 48.90 cm/sec Rt CCA Prx PSV 84.30 cm/sec Lt CCA Prx PSV 94.00 cm/sec Rt CCA Prx EDV 17.50 cm/sec Lt CCA Prx EDV 16.30 cm/sec Rt CCA Mid PSV 81.20 cm/sec Lt CCA Mid PSV 89.60 cm/sec Rt CCA Mid EDV 23.70 cm/sec Lt CCA Mid EDV 20.70 cm/sec Rt CCA Dst PSV 78.20 cm/sec Lt CCA Dst PSV 74.80 cm/sec Rt CCA Dst EDV 24.70 cm/sec Lt CCA Dst EDV 31.80 cm/sec Rt ECA PSV 154.70 cm/sec Lt ECA PSV 111.80 cm/sec Rt ECA EDV 30.40 cm/sec Lt ECA EDV 23.00 cm/sec Rt Vert PSV 56.50 cm/sec Lt Vert PSV 49.20 cm/sec Rt Vert EDV 14.90 cm/sec Lt Vert EDV 20.60 cm/sec Rt ICA/CCA Ratio 1.31 Lt ICA/CCA Ratio 1.43 Electronically Signed By: Dr Levi Stern 2021-07-09 14:11:58 CDT us Phoenix Loredo MD [facility] US PROCEDURES Final Result documented in this encounter Visit Diagnoses Diagnosis PVD (peripheral vascular disease) (HCC)- Primary Unspecified peripheral vascular disease Dyslipidemia Other and unspecified hyperlipidemia Tobacco dependence syndrome Tobacco use disorder Atherosclerosis of habematolel arteries of extremities with intermittent claudication, bilateral legs (HCC) Carotid bruit, unspecified laterality Carotid bruit, unspecified laterality PVD (peripheral vascular disease) (HCC) Unspecified peripheral vascular disease Encounter for screening colonoscopy documented in this encounter Care Teams Car Lot Attendant Relationship Specialty Start Date End Date Emerson Allen MD PCP - General 06/03/17 07/05/21 Phoenix Loredo MD Consulting Physician Cardiology 01/04/19 [place] [address] [place] [address] Orthopaedic Physician Assistant Obstetrics and Gynecology 04/19/21 documented as of this encounter
--- OUTSIDE RECORDS SUMMARY | 2024-10-13 04:09 | XMS_ITS | Encounter Summary ---
Author Organization [facility] Address [address] [place] [address] Care Team Providers Care Formula Weigher Name Role Phone Emerson Allen MD Primary Care Provider [phone] Phoenix Loredo MD Unavailable [phone] Aylin Lundy MD Unavailable [phone] Encounter Details Date Type Department Care Team (Late st Contact Info) Description 06/15/2021 Telephone [facility] [address] [place] [address] Emerson Allen MD [address] [facility] [address] [place] [address] Social History Tobacco Use Types [...] on file 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 Results will be scanned into the patients chart. documented in this encounter Plan of Treatment Upcoming Encounters Date Type Department Care Team (Late st Contact Info) Description 02/04/2025 9:30 AM CDT Hospital Encounter [address] [address] Vic Gaines, DO [address] [facility] [place] [address] [place] [address] 02/04/2025 9:30 AM CDT - 02/04/2025 10:00 AM CDT Surgery [address] [address] Vic Gaines, DO [address] [place] [address] [place] [address] COLONOSCOPY Scheduled Procedures Name Priority Associated Diagnoses Date/Ti me COLONOSCOPY Encounter for screening colonoscopy 02/04/2025 9:30 AM CDT documented as of this encounter Procedures Procedure Name Priority Date/Time Associated Diagnosis Comments HM PAP SMEAR WITH HPV Routine 06/11/2021 HM PAP SMEAR WITH HPV Routine 01/06/2021 documented in this encounter Results * HM PAP SMEAR WITH HPV (06/11/2021) Scribed Pap Smear w/HPV Normal 06/11/2021 [facility] Provider HEALTH MAINTENANCE Final Result * HM PAP SMEAR WITH HPV (01/06/2021) Scribed Pap Smear w/HPV Normal 01/06/2021 us Historical Provider HEALTH MAINTENANCE Final Result documented in this encounter Visit Diagnoses Not on filedocumented in this encounter Care Teams Formula Weigher Relationship Specialty Start Date End Date Emerson Allen MD PCP - General 06/03/17 07/05/21 Phoenix Loredo MD Consulting Physician Cardiology 01/04/19 [place] [address] [place] [address] Farebox Repairer Obstetrics and Gynecology 04/19/21 documented as of this encounter
--- OUTSIDE RECORDS SUMMARY | 2024-10-13 04:09 | XMS_ITS | Encounter Summary ---
Author Organization [facility] Address [address] [place] [address] Care Team Providers Care Thermodynamics Teacher Name Role Phone Emerson Allen MD Primary Care Provider [phone] Phoenix Loredo MD Unavailable [phone] Aylin Lundy MD Unavailable [phone] Reason for Referral * Cardiology (Routine) - Closed Specialty Diagnoses / Procedures Referred By Contac t Referred To Contact Diagnoses PVD (peripheral vascular disease) (HCC) Procedures ECG 12 lead Phoenix Loredo MD Phone: tel: fax: [address] [address] Referral ID Status Reason Start Date Expiration Date Visits Re quested Visits Authorized [id number] Closed 04/28/2021 05/28/2022 1 1 Reason for Visit * Cardiology (Routine) - Closed Specialty Diagnoses / Procedures Referred By Contac t Referred To Contact Diagnoses PVD (peripheral vascular disease) (HCC) Procedures ECG 12 lead Phoenix Loredo MD Phone: tel: fax: [address] [address] Referral ID Status Reason Start Date Expiration Date Visits Re quested Visits Authorized [id number] Closed 04/28/2021 05/28/2022 1 1 Encounter Details Date Type Department Care Team (Latest Contact Info) Description 04/29/2021 11:45 AM CDT - 04/29/2021 11:59 PM CDT Hospital Encounter [facility] 1 [place] [address] Phoenix Loredo MD [address] [address] PVD (peripheral vascular disease) ([facility]/HCC) ([facility]) Discharge Disposition: Discharge to home or self [...] on file 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 Gender Identity Not on file Sexual Orientation [...] Description 02/04/2025 9:30 AM CDT Hospital Encounter [facility] 1 [place] [address] Vic Gaines, DO 3 [facility] [place] [facility] [place] [address] 02/04/2025 9:30 AM CDT - 02/04/2025 10:00 AM CDT Surgery [facility] [address] [place] [address] Vic Gaines, DO [address] [facility] [address] COLONOSCOPY Scheduled Procedures Name Priority Associated Diagnoses Date/Ti me COLONOSCOPY Encounter for screening colonoscopy 02/04/2025 9:30 AM CDT documented as of this encounter Procedures Procedure Name Priority Date/Time Associated Diagnosis Comments ECG 12-LEAD Routine 04/29/2021 12:02 PM CDT PVD (peripheral vascular disease) (CMS/HCC) (HCC) documented in this encounter Results * ECG 12 lead (04/29/2021 12:02 PM CDT) 04/29/2021 11:5 8 AM CDT Narrative [facility] - 04/29/2021 3:14 PM CDT Vent Rate: 88 bpm RR Interval: 680 msec [place] Interval: 156 msec QRS Duration: 77 msec QT Interval: 364 msec QTC Interval: 409 msec P-R-T [place]: 61 - 22 - 56 degrees SINUS RHYTHM WITH OCCASIONAL VENTRICULAR PREMATURE COMPLEXES POSSIBLE LEFT ATRIAL ENLARGEMENT ??[-0.1mV P WAVE IN V1/V2] BORDERLINE ECG Electronically Signed By: Phoenix Loredo MD us Phoenix Loredo MD ECG ORDERABLES Final Result [facility] documented in this encounter Visit Diagnoses Diagnosis PVD (peripheral vascular disease) (HCC) Unspecified peripheral vascular disease Encounter for screening colonoscopy documented in this encounter Care Teams Thermodynamics Teacher Relationship Specialty Start Date End Date Emerson Allen MD PCP - General 06/03/17 07/05/21 Phoenix Loredo MD Consulting Physician Cardiology 01/04/19 [place] [address] [place] [address] Supervisor Engine Repair Obstetrics and Gynecology 04/19/21 documented as of this encounter
--- OUTSIDE RECORDS SUMMARY | 2024-10-13 04:09 | XMS_ITS | Encounter Summary ---
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 Gender Identity Not on file Sexual Orientation Not on file documented as of this encounter Discharge Disposition Disposition Code Departure Means Destination Discharge to home or self care documented in this encounter Plan of Treatment Upcoming Encounters Date Type Department Care Team (Late st Contact Info) Description 02/04/2025 9:30 AM CDT Hospital Encounter [address] [address] Vic Gaines, DO 3 [employer] [place] [address] [place] [address] 02/04/2025 9:30 AM CDT - 02/04/2025 10:00 AM CDT Surgery [address] [address] Vic Gaines, DO 3 [facility] [employer] [place] [address] [place] [address] COLONOSCOPY Scheduled Procedures Name Priority Associated Diagnoses Date/Ti me COLONOSCOPY Encounter for screening colonoscopy 02/04/2025 9:30 AM CDT documented as of this encounter Procedures Procedure Name Priority Date/Time Associated Diagnosis Comments COVID-19 CORONAVIRUS RNA Routine 08/13/2021 3:38 PM CDT Pre-operative laboratory examination documented in this encounter Results * COVID-19 Coronavirus RNA Nasopharyngeal (08/13/2021 3:38 PM CDT) COVID-19 RNA Not Detected [facility] ([place]) Comment: Interpretive Data Synonyms for this test include: PCR and NAAT . ??Testing performed by the [facility] Molecular Infectious Disease Laboratory. The 2019-Novel [...] on November 12, 2020. Testing performed by: [facility], [address] [facility], [address] First COVID-19 test? No [facility] ([place]) Comment:Testing performed by : [facility], [address] [facility], [address] Employeed in healthcare? Unknown [facility] ([place]) Comment:Testing performed by : [facility], [address] [place] [address], [id number] status? No [facility] ([place]) Comment:Testing performed by : [facility], [address] [facility], [address] Group care resident? No [facility] ([place]) Comment:Testing performed by : [facility], [address] [place] [address], [id number] Hospitalized? Unknown [facility] ([place]) Comment:Testing performed by : [facility], [address] [facility], [address] Is patient in ICU? Unknown [facility] ([place]) Comment:Testing performed by : [facility], [address] [facility], [address] Symptomatic as defined by CDC? No [facility] ([place]) Comment:Testing performed by : [facility], [address] [place] [address], [id number] Nasopharyngeal 08/13/2021 3: 38 PM CDT 08/14/2021 3:20 AM CDT Narrative [facility] ([place]) - 08/14/2021 8:55 AM CDT What is the reason for testing?->Screening prior to scheduled procedure or surgery (batch) us Ho Jarrett MD LAB MICROBIOLOGY - GENERAL ORDER JAGDEEP Final Result [facility] ([place]) 1 [facility] Department [place] [address] documented in this encounter Visit Diagnoses Diagnosis Pre-operative laboratory examination Pre-procedural laboratory examination Encounter for screening colonoscopy documented in this encounter Care Teams Salvage Machine Operator Relationship Specialty Start [place] [address] [place] [address] PCP - General 08/02/21 09/16/21 Phoenix Loredo MD Consulting Physician Cardiology 01/04/19 [place] [address] [place] [address] Speech Instructor Obstetrics and Gynecology 04/19/21 documented as of this encounter
--- OUTSIDE RECORDS SUMMARY | 2024-10-13 04:09 | XMS_ITS | Encounter Summary ---
Author Organization [facility] Address [address] [address] Care Team Providers Care Store Receiver Name Role Phone Phoenix Loredo MD Unavailable [phone] Aylin Lundy MD Unavailable [phone] Celine Solano NP Primary Care Provider [phone] Reason for Referral * (Routine) - Closed Specialty Diagnoses / Procedures [facility] Referred To Contact Diagnoses Mild intermittent asthma without complication Procedures Pulmonary Function Test -[facility]; Complete/Full (Spirometry, Pleth and DLCO) Ho Jarrett MD Phone: tel: fax: Referral ID Status Reason Start Date Expiration Date Visits Re quested Visits Authorized [id number] Closed 07/20/2021 08/19/2022 1 1 Reason for Visit * Reason Comments Shortness of Breath Asthma * Consultation (Routine) - Closed Specialty Diagnoses / Procedures [facility] Referred To Contact Pulmonary Disease / Pulmonology Diagnoses Asthma, unspecified asthma severity, unspecified whether complicated, unspecified whether persistent Keturah Malik NP [address] [place] [address] [address] Phone: tel: fax: Ho Jarrett MD Phone: tel: fax: Referral ID Status Reason Start Date Expiration Date V isits Requested Visits Authorized [id number] Closed Specialty Services Required 07/12/2021 08/11/2022 1 1 Encounter Details Date Type Department Care Team (Late st Contact Info) Description 07/20/2021 11:30 AM CDT Office Visit [facility] Pulmonology at [address] [place] [address] Ho Jarrett MD [address] [place] [address] [address] [place] [address] Mild intermittent asthma without complication (Primary Dx); Chronic cough; Need for influenza vaccination Social History Tobacco Use Types Packs/Day Years [...] file 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 Gender Identity Not on file Sexual Orientation Not on file documented as of this encounter Last Filed Vital Signs Vital Sign Reading Time Taken Comments Blood Pressure 128/90 07/20/2021 11:24 AM CDT Pulse 50 07/20/2021 11:24 AM CDT Temperature 36.4 ??C (97.6 ??F) 07/20/2021 11:24 AM C DT Respiratory Rate 18 07/20/2021 11:24 AM CDT Oxygen Saturation 96% 07/20/2021 11:24 AM CDT Inhaled Oxygen Concentration - - Weight 73.9 kg (163 lb) 07/20/2021 11:24 AM CDT Height 154.9 cm (5' 1 ) 07/20/2021 11:24 AM CDT Body Mass Index 30.8 07/20/2021 11:24 AM CDT documented in this encounter Progress Notes * Ho Jarrett MD - 07/20/2021 11:30 AM CDT Images from the original note were not included. PULMONARY CLINIC NOTE Visit Date: 07/20/2021 Chief Complaint: Presents today for ??? Shortness of breath HPI: Mirtha Cherry is a 56 y.o. female w/ PMH of peripheral arterial disease status post stenting who presents on 07/20/2021 for evaluation of dyspnea on exertion. 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 Diagnosed with asthma 20 years ago. She has not been on any regular inhaler therapy. She has had relatively stable dyspnea but reports it may be increased over the past several years. She reports shortness of breath and high humidity and gets bronchitis about once per year SOB in high humidity, bronchitis once per year. Interval History: She reports shortness of breath intermittently with exertion associated with cough. She also reports coughing after eating, drinking. Her cough is mostly clearing small amounts of sputum. She can sense this as it happens. She is currently scheduled to be evaluated with an upper endoscopy. Doesn't use her inhaler. Seasonal allergies with eye and nasal symptoms and uses [id number] antihistamines and Flonase. She is on famotidine for reflux Exposure History: No dust, mold, pets, animals, heavy metals, asbestos Past Medical History: Past Medical History: Diagnosis Date ??? Asthma Asthma; Comments: DNT 07/10/2014 - ??? Gastroesophageal reflux disease GERD ??? 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 HX OTHER MEDICAL 02-BARTENDER ??? HX OTHER MEDICAL 2010 capal tunnel [...] Works from home. Smoke 1ppd 40 years. Review of Systems: Pertinent positives notes in HPI. Otherwise a 10 pt review of systems is negative. OBJECTIVE: Physical Exam: Vitals: 07/20/21 1124 BP: 128/90 Pulse: 50 Resp: 18 Temp: 36.4 ??C (97.6 ??F) SpO2: 96% Weight: 73.9 kg (163 lb) Height: 154.9 cm (5' 1 ) General: [...] Neurologic: No focal deficits Skin: warm and dry Data Review: No imaging to review Pulmonary Functions Testing Results: None to review ASSESSMENT AND PLAN 1. Asthma, unspecified asthma severity, unspecified whether complicated, unspecified whether persistent She is certainly high risk for COPD but given the intermittent nature of her symptoms I suspect there could be asthma overlap - we discussed starting empiric therapy prior to testing but the patient like to confirm the diagnosis first - will proceed with lung function testing - likely needs alpha-1 antitrypsin testing - Ambulatory referral to Pulmonology - Pulmonary Function Test -[facility]; Complete/Full (Spirometry, Pleth and DLCO); Future 2. Chronic cough I also have concern for chronic aspiration given the patient's history - she is currently scheduled to undergo EGD later this month - recommend continue GI and possible speech therapy follow-up - may consider CT chest in the future 3. Need for influenza vaccination - Flu Vaccine Quad PF 3y+ IM - Fluzone My total encounter time on 07/20/2021 was 35 minutes which was spent in the activities documented in the note. This includes time spent prior to the visit and after the visit in direct care of the patient. This time does not include time spent in any separately reportable services. Ho Jarrett MD There may be syntax/grammatical errors in this note due to the use of voice recognition software. documented in this encounter Plan of Treatment Upcoming Encounters Date Type Department Care Team (Late st Contact Info) Description 02/04/2025 9:30 AM CDT Hospital Encounter [address] [address] Vic Gaines, DO 3 [facility] [address] [place] [address] 02/04/2025 9:30 AM CDT - 02/04/2025 10:00 AM CDT Surgery [address] [address] Vic Gaines, DO 3 [facility] [address] [place] [address] COLONOSCOPY Scheduled Procedures Name Priority Associated Diagnoses Date/Ti me COLONOSCOPY Encounter for screening colonoscopy 02/04/2025 9:30 AM CDT documented as of this encounter Results * Pulmonary Function Test -[facility]; Complete/Full (Spirometry, Pleth and DLCO) (08/16/2021 8:08 AM SHOOK 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) Anatomical Region Laterality Modality PFT Narrative 08/16/2021 5:10 PM SHOOK 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 Study showed good patient effort. Spirometry showed no airflow limitations with no significant acute response to bronchodilator which should not preclude their usage. Lung volume showed no restrictive defect. Residual volume was increased indicating air trapping. ERV was reduced secondary to muscle weakness. Airway resistance was increased. Flow volume loops showed mild airflow limitations. No previous data to compare, clinical correlation is recommended. Electronically signed, Sandra Ceja MD,[facility], [facility] Pulmonary, Critical Care and Sleep Medicine Ho Jarrett MD PFT ORDERABLES Final Result documented in this encounter Visit Diagnoses Diagnosis Mild intermittent asthma without complication- Primary Chronic cough Cough Need for influenza vaccination Need for prophylactic vaccination and inoculation against influenza Mild intermittent asthma without complication Encounter for screening colonoscopy documented in this encounter Orders Immunization/Injection Count Last Ordered Date First Ordered Date FLU VACCINE QUAD PF 3Y+ IM - AFLURIA 1 07/09 Outpatient Referral Count Last Ordered Date Fir st Ordered Date AMB REFERRAL TO PULMONOLOGY 1 07/20/2021 documented in this encounter Care Teams Store Receiver Relationship Specialty Start [place] [address] [place] [address] PCP - General Family Medicine 07/06/21 07/22/21 Phoenix Loredo MD Consulting Physician Cardiology 01/04/19 [place] [address] [place] [address] Sharepoint Specialist Obstetrics and Gynecology 04/19/21 documented as of this encounter
--- OUTSIDE RECORDS SUMMARY | 2024-10-13 04:09 | XMS_ITS | Encounter Summary ---
Author Organization [facility] Address [address] [facility] [address] [place] [address] Care Team Providers Care Paper Counter Name Role Phone Phoenix Loredo MD Unavailable [phone] Aylin Lundy MD Unavailable [phone] Emerson Allen MD Primary Care Provider [phone] Encounter Details Date Type Department Care Team (Late st Contact Info) Description 08/17/[address] 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 Does not meet criteria for obstruction based on GOLD but I suspect for her age FEV1/FVC is abnormal. Paired with reduced DLCO I believe this suggests COPD. I discussed this with the patient and prescribed anoro. She will try it for two weeks and we will follow up to review inhaler technique and symptoms. 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 documented in this encounter Plan of Treatment Upcoming Encounters Date Type Department Care Team (Late st Contact Info) Description 02/04/2025 9:30 AM CDT Hospital Encounter [address] [address] Vic Gaines, DO 3 [facility] [address] [place] [address] 02/04/2025 9:30 AM CDT - 02/04/2025 10:00 AM CDT Surgery [address] [address] Vic Gaines, DO [address] [facility] [address] [place] [address] COLONOSCOPY Scheduled Procedures Name Priority Associated Diagnoses Date/Ti me COLONOSCOPY Encounter for screening colonoscopy 02/04/2025 9:30 AM CDT documented as of this encounter Visit Diagnoses Not on filedocumented in this encounter Care Teams Paper Counter Relationship Specialty Start Date End Date [place] [id number] [place] [address] PCP - General 08/02/21 09/16/21 Phoenix Loredo MD Consulting Physician Cardiology 01/04/19 Aylin Lundy [place] [id number] [place] [address] Direct Support Professional Home Health Obstetrics and Gynecology 04/19/21 documented as of this encounter
--- OUTSIDE RECORDS SUMMARY | 2024-10-13 04:09 | XMS_ITS | Encounter Summary ---
Author Organization [facility] Address [address] [place] [address] Care Team Providers Care Chief Wellness Officer Name Role Phone Emerson Allen MD Primary Care Provider [phone] Leticia Loredo MD Unavailable [phone] Reason for Referral * Diagnostic Imaging (Routine) - Closed Specialty Diagnoses / Procedures Referred By Contac t Referred To Contact Diagnoses PVD (peripheral vascular disease) (HCC) Procedures US Leticia Farias MD Phone: tel: fax: Referral ID Status Reason Start Date Expiration Date Visits Re quested Visits Authorized [id number] Closed 10/12/2020 11/11/2021 1 1 Reason for Visit * Diagnostic Imaging (Routine) - Closed Specialty Diagnoses / Procedures Referred By Contac t Referred To Contact Diagnoses PVD (peripheral vascular disease) (HCC) Procedures US Leticia Farias MD Phone: tel: fax: Referral ID Status Reason Start Date Expiration Date Visits Re quested Visits Authorized [id number] Closed 10/12/2020 11/11/2021 1 1 Encounter Details Date Type Department Care Team (Latest Contact Info) Description 2021 7:52 AM CDT - 2021 11:59 PM CDT Hospital Encounter [facility] [address] [place] [address] Leticia Loredo MD 2 [facility] [address] [place] [id number] PVD (peripheral vascular disease) (CMS/HCC) (HCC) Discharge Disposition: Discharge to home or [...] on file 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 Gender Identity Not on file Sexual [...] 02/04/2025 9:30 AM CDT Hospital Encounter [address] [address] Vic Gaines, DO [address] [address] 02/04/2025 9:30 AM CDT - 02/04/2025 10:00 AM CDT Surgery [address] [address] Vic Gaines, DO 3 [facility] [address] [place] [address] COLONOSCOPY Scheduled Procedures Name Priority Associated Diagnoses Date/Ti me COLONOSCOPY Encounter for screening colonoscopy 02/04/2025 9:30 AM CDT documented as of this encounter Procedures Procedure Name Priority Date/Time Associated Diagnosis Comments US ABE Schedule Routine, Read Routine (OP Routine) 2021 8:47 AM CDT PVD (peripheral vascular disease) (CMS/HCC) (HCC) documented in this encounter Results * US ABE (2021 8:47 AM CDT) Anatomical Region Laterality Modality Vascular N/A Ultrasound 2021 8:00 AM CDT Narrative 2021 9:53 AM CDT [address] [place] [address] Ankle Brachial Index Report Patient Name: MOSHE HARTLEY ?? : 1965 (56y ) ??Gender: F Study Date: 2021 8:00:00 AM [employer] Referee: Order Provider: LETICIA LOREDO Quality: Adequate Ref.Provider: LETICIA LOREDO Procedures: Arterial Report: A bilateral extremities ankle/brachial index was performed. Indications: Peripheral Vascular Disease. Conclusions: 1. No arterial insufficiency in the [...] Biphasic to triphasic waveform at the ankle. Findings: Right Leg: ABE on right is 1.12. Left Leg: ABE on left is 0.79. Measurements: Right ? Value ? Left ?Value ? Rt Brachial Pressure ?145 mmHg ?Lt Brachial Pressure ?145 mmHg ? Rt Ankle Pressure ? 162 mmHg ?Lt Ankle Pressure ? 114 mmHg ? Rt Dorsalis Pedis ? 144 mmHg ?Lt Dorsalis Pedis ? 113 mmHg ? Rt ABE ?1.12 ?Lt BAE ?0.79 ? Electronically Signed By: Leticia Loredo MD 2021 09:53:55 CDT Procedure Note Leticia Loredo MD - [address] [place] [address] Ankle Brachial Index Report Patient Name: Adry HARTLEY ID: [id number] : 1965 (56y ) Gender: FStudy Date: 2021 8:00:00 AM Order Provider: LETICIA LOREDOQuality: Adequate Ref.Provider: LETICIA LOREDO Procedures: Arterial Report: A bilateral extremities ankle/brachial index wasperformed. Indications: Peripheral Vascular Disease. Conclusions: 1. No arterial insufficiency in the right lower extremity withankle-brachial index 1.12 which is unchanged from prior study in October 2019. Biphasic to triphasicwaveform at the ankle. 2. Mild arterial insufficiency at rest in the left lower extremity withankle- brachial index 0.79. This represents a decline from prior value of 1.0 in October2019. Biphasic to triphasic waveform at the ankle. Findings: Right Leg: ABE on right is 1.12. Left Leg: ABE on left is 0.79. Measurements: Right Value Left Value Rt Brachial Pressure 145 mmHg Lt Brachial Pressure 145 mmHg Rt Ankle Pressure 162 mmHg Lt Ankle Pressure 114 mmHg Rt Dorsalis Pedis 144 mmHg Lt Dorsalis Pedis 113 mmHg Rt ABE 1.12 Lt ABE 0.79 Electronically Signed By: Leticia Loredo MD 2021 09:53:55 CDT Leticia Loredo MD [facility] PROCEDURES Final Result documented in this encounter Visit Diagnoses Diagnosis PVD (peripheral vascular disease) (HCC) Unspecified peripheral vascular disease Encounter for screening colonoscopy documented in this encounter Care Teams Chief Wellness Officer Relationship Specialty Start Date End Date Emerson Allen MD PCP - General 06/03/17 07/05/21 Leticia Loredo MD Consulting Physician Cardiology 01/04/19 documented as of this encounter
--- OUTSIDE RECORDS SUMMARY | 2024-10-13 04:09 | XMS_ITS | Encounter Summary ---
Author Organization [facility] Address [address] [facility] [facility] [address] [place] [address] Care Team Providers Care Forming Machine Upkeep Mechanic Name Role Phone Emerson Allen MD Primary Care Provider [phone] Phoenix Loredo MD Unavailable [phone] Aylin Lundy MD Unavailable [phone] Reason for Visit * Reason Comments Hyperlipidemia 6 mo HMV Encounter Details Date Type Department Care Team (Late st Contact Info) Description 04/19/2021 9:00 AM CDT Office Visit [facility] [address] [place] [address] Emerson Allen MD [address] [facility] [address] [place] [address] Multiple-type hyperlipidemia (Primary Dx); Gastroesophageal reflux disease without esophagitis; Esophageal dysphagia Social History Tobacco Use Types Packs/Day Years [...] on file 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 Gender Identity Not on file Sexual Orientation Not on file documented as of this encounter Last Filed Vital Signs Vital Sign Reading Time Taken Comments Blood Pressure 130/84 04/19/2021 8:48 AM CDT Pulse 85 04/19/2021 8:48 AM CDT Temperature 36.7 ??C (98.1 ??F) 04/19/2021 8:48 AM CD T Respiratory Rate 12 04/19/2021 8:48 AM CDT Oxygen Saturation 96% 04/19/2021 8:48 AM CDT Inhaled Oxygen Concentration - - Weight 72.8 kg (160 lb 8 oz) 04/19/2021 8:48 AM CDT Height 154.9 cm (5' 0.98 ) 04/19/2021 8:48 AM CD T Body Mass Index 30.34 04/19/2021 8:48 AM CDT documented in this encounter Patient Instructions * Patient Instructions* Emerson Allen MD - 04/19/2021 9:00 AM CDT Mole refer to GI to evaluate occasional problems with swallowing. Advised smaller bites, make sure to have water available during meals. Blood pressure is acceptable. No change Will continue on Lipitor. No side effects reported. I do note the triglycerides have increased, that is likely related to dietary changes. Perhaps add fish oil supplement. Continue Co Q10. Will continue Pepcid 40 mg, but I will want to reduce to once daily until you you see GI. Thanks for coming in today! My medical assistants and I are thankful you have trusted us with your care, and hope that you received EXCELLENT care today! Please do not hesitate to call if you have any questions or concerns at [phone]. You may receive a phone call, text, MYCHART message, or e-mail asking about your care today. We would love to hear your feedback on how EXCELLENT your care wastoday! Wishing you better health, always. Dr. Allen documented in this encounter Progress Notes * Emerson Allen MD - 04/19/2021 9:00 AM CDT Images from the original note were not included. Subjective/Objective Patient ID: Mirtha Cherry is a 56 y.o. female. Chief Complaint Hyperlipidemia (6 mo HMV) diet has been a bit worse since her son came home from college, cooking more meat Hyperlipidemia This is a chronic problem. She has no history of diabetes, hypothyroidism, liver disease or obesity. Associated symptoms include shortness of breath (with increased humidity). Pertinent negatives include no chest pain, focal sensory loss, focal weakness, leg pain or myalgias. Current antihyperlipidemic treatment includes statins. GERD She complains of choking (occasionally) and globus sensation. She reports no chest pain, no coughing, no early satiety, no heartburn, no nausea or no wheezing. This is a chronic problem. vocal cord polyps removed (age 39). Current Outpatient Medications: ??? albuterol (PROVENTIL,VENTOLIN) 2.5 mg /3 mL (0.083 %) nebulizer solution, Take 3 mL (2.5 mg total) by nebulization every 6 (six) hours as needed for wheezing, Disp: 75 mL, Rfl: 2 ??? albuterol HFA (PROVENTIL HFA,VENTOLIN HFA,PROAIR HFA) 90 mcg/actuation inhaler, Inhale 2 puffs every 6 (six) hours as needed for wheezing, Disp: 1 Inhaler, Rfl: 2 ??? aspirin 81 mg tablet, Take 81 mg by mouth., Disp: , Rfl: ??? atorvastatin (LIPITOR) 40 mg tablet, Take 1 tablet (40 mg total) by mouth daily, Disp: 90 tablet, Rfl: 3 ??? clopidogreL (PLAVIX) 75 mg tablet, Take 1 tablet (75 mg total) by mouth daily, Disp: 90 tablet,Rfl: 3 ??? coenzyme Q10 (CO Q-10) 200 mg capsule, Take 1 capsule by oral route every day, Disp: 0, Rfl: 0 ??? fluticasone propionate (FLONASE) 50 mcg/actuation nasal spray, SHAKE LIQUID AND USE 1 SPRAY IN EACH NOSTRIL DAILY, Disp: 16 g, Rfl: 2 ??? Lactobacillus acidophilus (PROBIOTIC) 10 billion cell capsule, Take 1 capsule by oral route every day, Disp: 0, Rfl: 0 ??? loratadine (CLARITIN) 10 mg tablet, Take 10 mg by mouth daily., Disp: , Rfl: ??? multivitamin capsule, Take 1 capsule by mouth daily., Disp: , Rfl: ??? pimecrolimus (ELIDEL) 1 % cream, Apply topically 2 (two) times a day, Disp: 30 g, Rfl: 1 ??? SUMAtriptan (IMITREX) 50 mg tablet, May repeat dose once in 2 hours if no relief. Do not exceed2 doses in 24 hours., Disp: 9 tablet, Rfl: 2 ??? famotidine (Pepcid) 40 mg tablet, Take 1 tablet (40 mg total) by mouth 2 (two) times a day, Disp: 180 tablet, Rfl: 3 Review of Systems Constitutional: Negative. HENT: Negative. Respiratory: Positive for choking (occasionally) and shortness of breath (with increased humidity).Negative for cough, wheezing and stridor. Cardiovascular: Negative for chest pain and palpitations. Gastrointestinal: Negative. Negative for heartburn and nausea. Genitourinary: Negative. Musculoskeletal: Negative for myalgias and neck pain. Neurological: Negative for focal weakness and headaches. Psychiatric/Behavioral: Negative. BP 130/84 (BP Location: Right arm, Patient Position: Sitting) Pulse 85 Temp 36.7 ??C (98.1 ??F)(Temporal) Resp 12 Ht 154.9 cm (5' 0.98 ) Wt 72.8 kg (160 lb 8 oz) LMP (LMP Unknown) MaL649% BMI 30.34 kg/m?? Physical Exam Vitals reviewed. Constitutional: Appearance: She is well-developed. She is obese. HENT: Head: Normocephalic and atraumatic. Right Ear: External ear normal. Left Ear: External ear normal. Eyes: Conjunctiva/sclera: Conjunctivae normal. Cardiovascular: Rate and Rhythm: Normal rate and regular rhythm. Heart sounds: Normal heart sounds. No murmur heard. No friction rub. No gallop. Pulmonary: Effort: Pulmonary effort is normal. Breath sounds: Normal breath sounds. Abdominal: General: Bowel sounds are normal. Palpations: Abdomen is soft. Tenderness: There is no abdominal tenderness. Musculoskeletal: General: Normal range of motion. Cervical back: Normal range of motion and neck supple. Right lower leg: No edema. Left lower leg: No edema. Skin: General: Skin is warm and dry. Capillary Refill: Capillary refill takes less than 2 seconds. Neurological: Mental Status: She is alert and oriented to person, place, and time. Psychiatric: Behavior: Behavior normal. Lab on 04/10/2021 Component Date Value Ref Range Status ??? WBC 04/10/2021 10.2* 3.8 - 9.9 K/cumm Final ??? Hgb 04/10/2021 15.2 11.9 - 15.5 g/dL Final ??? Hct 04/10/2021 45.3 35.6 - 45.5 % Final ??? Plt 04/10/2021 211 150 - 400 K/cumm Final ??? MPV 04/10/2021 10.4 9.1 - 12.3 fL Final ??? RBC 04/10/2021 4.95 3.90 - 5.20 M/cumm Final ??? MCV 04/10/2021 91.5 81.3 - 96.4 fL Final ??? MCH 04/10/2021 30.7 27.1 - 33.3 pg Final ??? MCHC 04/10/2021 33.6 32.3 - 35.7 g/dL Final ??? RDW CV 04/10/2021 13.2 11.1 - 14.9 % Final ??? RDW SD 04/10/2021 44.2 35.7 - 48.1 fL Final ??? NRBC abs 04/10/2021 0.00 0.00 - 0.01 K/cumm Final ??? Sodium 04/10/2021 141 135 - 145 mmol/L Final ??? Potassium, pl 04/10/2021 4.1 3.3 - 4.9 mmol/L Final ??? Chloride 04/10/2021 106 97 - 110 mmol/L Final ??? CO2 04/10/2021 25 22 - 32 mmol/L Final ??? Anion gap 04/10/2021 9 2 - 15 mmol/L Final ??? BUN 04/10/2021 14 8 - 25 mg/dL Final ??? Creatinine 04/10/2021 0.72 0.60 - 1.10 mg/dL Final ??? Glucose 04/10/2021 99 70 - 199 mg/dL Final Comment: Interpretive Data Fasting glucose >/= 126 mg/dl is diagnostic for diabetes. Fasting is defined as no caloric intake [...] Current interpretive data was last revised 2017. ??? Calcium 04/10/2021 8.8 8.5 - 10.3 mg/dL Final ??? Bilirubin, total 04/10/2021 0.3 0.1 - 1.2 mg/dL Final ??? Protein, pl 04/10/2021 6.4* 6.5 - 8.5 g/dL Final ??? Albumin 04/10/2021 4.1 3.5 - 5.0 g/dL Final ??? Alk phos 04/10/2021 93 40 - 130 Units/L Final ??? ALT 04/10/2021 24 7 - 45 Units/L Final ??? AST 04/10/2021 20 10 - 45 Units/L Final ??? Cholesterol 04/10/2021 157 30 - 199 mg/dL Final Comment: Interpretive Data Ages < or = 19 years Acceptable: <170 mg/dL Borderline high: 170-199 mg/dL High: >or= 200 mg/dL Ages > or = 20 years Desirable: <200 mg/dL Borderline high: 200-239 mg/dL High: >or= 240 mg/dL Literature References: 1. Expert Panel on Integrated Guidelines for Cardiovascular Health and Risk Reduction in Children and Adolescents. Pediatrics 2011;128:S213 2. NCEP Expert Panel. Circulation 2004;110:227 Current Interpretive Data was last revised on 2018. ? ? Triglycerides 04/10/2021 196* <=149 mg/dL Final Comment: Interpretive Data Ages < or = 9 years Acceptable: <75 mg/dL Borderline high: 75-99 mg/dL High: >or= 100 mg/dL Ages 10 to 20 years Acceptable: <90 mg/dL Borderline high: 90-129 mg/dL High: >or= 130 mg/dL Ages > or = 20 years Desirable: <150 mg/dL Borderline high: 150-199 mg/dL High: 200-499 mg/dL Very high: >or= 499 mg/dL Literature References: 1. Expert Panel on Integrated Guidelines for Cardiovascular Health and Risk Reduction in Children and Adolescents. Pediatrics 2011;128:S213 2. NCEP Expert Panel. Circulation 2004;110:227 Current Interpretive Data was last revised on 2018. ? ? HDL 04/10/2021 39* >=40 mg/dL Final Comment: Interpretive Data Ages < or = 19 years Acceptable: >45 mg/dL Borderline low: 40-45 mg/dL Low: <40 mg/dL Ages > or = 20 years Desirable: >or= 60 mg/dL Low: <40 mg/dL Literature References: 1. Expert Panel on Integrated Guidelines for Cardiovascular Health and Risk Reduction in Children and Adolescents. Pediatrics 2011;128:S213 2. NCEP Expert Panel. Circulation 2004;110:227 Current Interpretive Data was last revised on 2018. ? ? LDL, calculated 04/10/2021 79 <=129 mg/dL Final Comment: Interpretive Data Ages < or = 19 years Acceptable: <110 mg/dL Borderline high: 110-129 mg/dL High: >or= 130 mg/dL Ages > or = 20 years Optimal: <100 mg/dL Near optimal: 100-129 mg/dL Borderline high: 130-159 mg/dL High: >160 mg/dL Literature References: 1. Expert Panel on Integrated Guidelines for Cardiovascular Health and Risk Reduction in Children and Adolescents. Pediatrics 2011;128:S213 2. NCEP Expert Panel. Circulation 2004;110:227 Current Interpretive Data was last revised on 2018. ??? Non-HDL Cholesterol 04/10/2021 118 mg/dL Final Comment: Interpretive Data Ages < or = 19 years Acceptable: <120 mg/dL Borderline high: 120-144 mg/dL High: >145 mg/dL Ages > or = 20 years When triglycerides are >200 mg/dL, Non-HDL cholesterol is a secondary target of therapy with treatment goals that are 30 mg/dL greater than the LDL cholesterol target. Literature References: 1. Expert Panel on Integrated Guidelines for Cardiovascular Health and Risk Reduction in Children and Adolescents. Pediatrics 2011;128:S213 2. NCEP Expert Panel. Circulation 2004;110:227 Current Interpretive Data was last revised on 2018. ??? Chol/HDL ratio 04/10/2021 4 Final ??? Neutrophil abs 04/10/2021 5.9 1.7 - 6.5 K/cumm Final ??? Imm gran abs 04/10/2021 0.0 0.0 - 0.1 K/cumm Final ??? Lymphocyte abs 04/10/2021 3.3 0.8 - 3.3 K/cumm Final ??? Monocyte abs 04/10/2021 0.8 0.2 - 0.8 K/cumm Final ??? Eosinophil abs 04/10/2021 0.1 0.0 - 0.5 K/cumm Final ??? Basophil abs 04/10/2021 0.0 0.0 - 0.1 K/cumm Final ??? Neutrophil pct 04/10/2021 57.6 % Final Comment: Interpretive Data Percent cell count reference ranges are not reported, since discordance with absolute values may lead to misinterpretation of CBC data. Current Interpretive Data was last revised on 2018. ??? Imm gran pct 04/10/2021 0.4 % Final Comment: Interpretive Data Percent cell count reference ranges are not reported, since discordance with absolute values may lead to misinterpretation of CBC data. Current Interpretive Data was last revised on 2018. ??? Lymphocyte pct 04/10/2021 32.6 % Final Comment: Interpretive Data Percent cell count reference ranges are not reported, since discordance with absolute values may lead to misinterpretation of CBC data. Current Interpretive Data was last revised on 2018. ??? Monocyte pct 04/10/2021 7.7 % Final Comment: Interpretive Data Percent cell count reference ranges are not reported, since discordance with absolute values may lead to misinterpretation of CBC data. Current Interpretive Data was last revised on 2018. ??? Eosinophil pct 04/10/2021 1.3 % Final Comment: Interpretive Data Percent cell count reference ranges are not reported, since discordance with absolute values may lead to misinterpretation of CBC data. Current Interpretive Data was last revised on 2018. ??? Basophil pct 04/10/2021 0.4 % Final Comment: Interpretive Data Percent cell count reference ranges are not reported, since discordance with absolute values may lead to misinterpretation of CBC data. Current Interpretive Data was last revised on 2018. ??? GFR 04/10/2021 94 mL/min/1.73 m2 Final Comment: Interpretive Data Reference Interval Normal >/= 90 mL/min/1.73m2 Mildly decreased* 60 - 89 mL/min/1.73m2 Mildly to moderately decreased 45 - 59 mL/min/1.73m2 Moderately to severely decreased 30 - 44 mL/min/1.73m2 Severely decreased 15 - 29 mL/min/1.73m2 Kidney Failure < 15 mL/min/1.73m2 *Relative to young adult level Estimated glomerular filtration rate is determined by the CKD-EPI equation recommended by the National Kidney Foundation (KDIGO 2012 Clinical Practice Guideline for the Evaluation and Management of Chronic Kidney Disease. Kidney Intnl Suppl Oct 2012;3:1). The CKD-EPI equation should not be used for patients with unstable renal function and has not been validated in children and those over 70. Current interpretive data was last reviewed 2020 Assessment/Plan Diagnoses and all orders for this visit: Multiple-type hyperlipidemia (Primary) Comments: Blood pressure is acceptable. No change Assessment & Plan: Will continue on Lipitor. No side effects reported. I do note the triglycerides have increased, that is likely related to dietary changes. Perhaps add fish oil supplement. Continue Co Q10. Orders: - CBC with auto differential; Future - Comprehensive metabolic panel; Future - Lipid panel; Future Gastroesophageal reflux disease without esophagitis Assessment & Plan: Will continue Pepcid 40 mg, but I will want to reduce to once daily until you you see GI Esophageal dysphagia Comments: refer to GI to evaluate occasional problems with swallowing. Advised smaller bites, make sure to have water available during meals. Orders: - Ambulatory referral to Gastroenterology; Future Emerson Allen MD This office note has been partially dictated using Peeractive software, and as a result portions of the record may have been created with this software. Occasional wrong-word or '[id number]' substitutions may have occurred due to the inherent limitations of voice recognition software. Read the chartcarefully and recognize, using context, where substitutions have occurred. documented in this encounter Miscellaneous Notes * Assessment & Plan Note - Emerson Allen MD - 04/20/2021 1:51 PM CDT Associated Problem(s): GERD (gastroesophageal reflux disease) Will continue Pepcid 40 mg, but I will want to reduce to once daily until you you see GI * Assessment & Plan Note - Emerson Allen MD - 04/20/2021 1:51 PM CDT Associated Problem(s): Multiple-type hyperlipidemia (Deleted) Will continue on Lipitor. No side effects reported. I do note the triglycerides have increased, that is likely related to dietary changes. Perhaps add fish oil supplement. Continue Co Q10. * Assessment & Plan Note - Karson Forbes MD - 04/19/2021 9:00 AM CDT Associated Problem(s): Hyperlipidemia >>ASSESSMENT AND PLAN FOR MULTIPLE-TYPE HYPERLIPIDEMIA WRITTEN ON 04/20/2021 1:51 PM BY EMERSON ALLEN MD Will continue on Lipitor. No side effects reported. I do note the triglycerides have increased, that is likely related to dietary changes. Perhaps add fish oil supplement. Continue Co Q10. documented in this encounter Plan of Treatment Upcoming Encounters Date Type Department Care Team (Late st Contact Info) Description 02/04/2025 9:30 AM CDT Hospital Encounter [facility] [address] [place] [address] Vic Gaines, DO 3 [facility] [address] [place] [address] 02/04/2025 9:30 AM CDT - 02/04/2025 10:00 AM CDT Surgery [facility] [address] [place] [address] Vic Gaines, DO 3 [facility] [address] [place] [address] COLONOSCOPY Scheduled Procedures Name Priority Associated Diagnoses Date/Ti me COLONOSCOPY Encounter for screening colonoscopy 02/04/2025 9:30 AM CDT documented as of this encounter Visit Diagnoses Diagnosis Multiple-type hyperlipidemia- Primary Other and unspecified hyperlipidemia Gastroesophageal reflux disease without esophagitis Esophageal reflux Esophageal dysphagia Dysphagia, pharyngoesophageal phase Encounter for screening colonoscopy documented in this encounter Care Teams Forming Machine Upkeep Mechanic Relationship Specialty Start Date End Date Emerson Allen MD PCP - General 06/03/17 07/05/21 Phoenix Loredo MD Consulting Physician Cardiology 01/04/19 [place] [address] [place] [address] Director [facility] Obstetric[facility] Gynecology 04/19/21 documented as of this encounter
--- OUTSIDE RECORDS SUMMARY | 2024-10-13 04:09 | XMS_ITS | Encounter Summary ---
Author Organization [facility] Address [address] [place] [address] Care Team Providers Care Cobbler Sole Name Role Phone Phoenix Loredo MD Unavailable [phone] Aylin Lundy MD Unavailable [phone] Emerson Allen MD Primary Care Provider Encounter Details Date Type Department Care Team (Latest Contact Info) Description 08/02/2021 8:30 AM CDT - 08/02/2021 9:00 AM CDT Surgery [facility] [address] [place] [address] Chuck Hansen MD [address] [place] [id number] ESOPHAGOGASTRODUODENOSCOPY BALLOON DILATION <30MM Surgery Details Date/Time Status Location OR Service Patient Class Case Class Case Type Trauma Case? 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 Gender Identity Not on file Sexual Orientation Not on file documented as of this encounter Last Filed Vital Signs Vital Sign Reading Time Taken Comments Blood Pressure 130/78 08/02/2021 8:53 AM CDT Pulse 95 08/02/2021 8:53 AM CDT Temperature 36.4 ??C (97.6 ??F) 08/02/2021 7:41 AM CD T Respiratory Rate 22 08/02/2021 8:53 AM CDT Oxygen Saturation 95% 08/02/2021 8:53 AM CDT Inhaled Oxygen Concentration - - Weight 72.6 kg (160 lb) 08/02/2021 7:41 AM CDT Height 154.9 cm (5' 1 ) 08/02/2021 7:41 AM CDT Body Mass Index 30.23 08/02/2021 7:41 AM CDT documented in this encounter Medications [...] into each nostril daily 16 g 2 06/17/2021 2 Lactobacillus acidophilus (PROBIOTIC) 10 billion cell [...] documented in this encounter H&P Notes * Chuck Hansen MD - 08/02/2021 8:30 AM CDT Plan of Care : Based on the above findings, I consider Mirtha Cherry to be an acceptable risk for: Procedure(s): ESOPHAGOGASTRODUODENOSCOPY Source Note - Kilo Decker MD - 08/02/2021 8:00 AM CDT Images from the original note were not included. Anesthesia Evaluation Mirtha Cherry is a 56 y.o. female Procedure(s): ESOPHAGOGASTRODUODENOSCOPY Pre-Op Diagnosis Codes: * Dysphagia, unspecified type [R13.10] HISTORY Past Medical History Neurological Pertinent negatives: CVA/stroke and ICA stenosis Cardiovascular + Hyperlipidemia + PAD/Aorta disease - prior percutaneous revascularization. Respiratory + Asthma Gastrointestinal + GERD - on daily therapy. Endocrine / Other + Cancer history- in remission. Cancer type: breast. Functional Capacity Functional capacity: 4-6 METs Patient Active Problem List Diagnosis ??? Migraine ??? Multiple-type hyperlipidemia ??? Trigeminal neuralgia ??? Asthma ??? Atopic rhinitis ??? Tobacco dependence syndrome ??? Hyperlipidemia ??? PVD (peripheral vascular disease) (CMS/HCC) ([facility]) ??? Otitis media ??? Thyroid nodule ??? Closed displaced fracture of proximal phalanx of lesser toe of right foot ??? Dyslipidemia ??? GERD (gastroesophageal reflux disease) ??? Hallux valgus (acquired), left foot ??? Hallux valgus (acquired), right foot ??? Left leg swelling ??? Neuritis of left foot ??? Pain of left foot ??? Swelling of foot joint, left ??? Tailor's bunion of left foot ??? Mass of upper outer quadrant of right breast ??? Tongue lesion ??? Bilateral carotid artery stenosis ??? Dysphagia Past Medical History: Diagnosis Date ??? Asthma Asthma; Comments: DNT 07/10/2014 - ??? Dysphagia ??? Gastroesophageal reflux disease GERD ??? 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 HX OTHER MEDICAL 2010 capal tunnel [...] 07/10/2014 - ??? Peripheral vascular disease (CMS/HCC) ([facility]) Peripheral vascular disease; Comments: 2 in each [...] SURGICAL HISTORY 2004 polypectomy for vocal cords OB History No obstetric history on file. Allergies Allergen Reactions ??? Adhesive Rash Reaction: Rash, ??? Codeine Nausea only, Nausea Only and Unknown Reaction: Nausea, ??? Adhesive Tape-Silicones Itching, Other (See comments) and Unknown blisters ??? Povidone-Iodine Itching Taking? Last Dose Start Date End Date Provider albuterol (PROVENTIL,VENTOLIN) 2.5 mg /3 mL (0.083 %) nebulizer solution 01/09/19 -- Emerson Allen MD Take 3 mL (2.5 mg total) by nebulization every 6 (six) hours as needed for wheezing albuterol HFA (PROVENTIL HFA,VENTOLIN HFA,PROAIR HFA) 90 mcg/actuation inhaler 01/09/19 -- Emerson Allen MD Inhale 2 puffs every 6 (six) hours as needed for wheezing aspirin 81 mg tablet Past Week -- -- ProviderCharles MD Notes: Received from: [facility] Received Sig: Take 81 mg by mouth daily. atorvastatin (LIPITOR) 40 mg tablet 07/30/2021 12/07/20 -- Phoenix Loredo MD Take 1 tablet (40 mg total) by mouth daily clopidogreL (PLAVIX) 75 mg tablet 07/28/2021 07/16/20 -- Phoenix Loredo MD Take 1 tablet (75 mg total) by mouth daily coenzyme Q10 (CO Q-10) 200 mg capsule 07/30/2021 12/07/16 -- Emerson Allen MD Take 1 capsule by oral route every day famotidine (Pepcid) 40 mg tablet () 07/30/2021 02/20/20 07/30/21 Emerson Allen MD Take 1 tablet (40 mg total) by mouth 2 (two) times a day fluticasone propionate (FLONASE) 50 mcg/actuation nasal spray 06/17/21 -- Emerson Allen MD Administer 1 spray into each nostril daily Lactobacillus acidophilus (PROBIOTIC) 10 billion cell capsule 12/07/16 -- Emerson Allen MD Take 1 capsule by oral route every day loratadine (CLARITIN) 10 mg tablet 07/30/2021 -- -- Charles Stauffer MD multivitamin capsule 07/30/2021 -- -- Charles Stauffer MD pimecrolimus (ELIDEL) 1 % cream 04/27/19 -- Miguel Sanders NP Apply topically 2 (two) times a day SUMAtriptan (IMITREX) 50 mg tablet 01/13/21 -- Emerson Allen MD May repeat dose once in 2 hours if no relief. Do not exceed 2 doses in 24 hours. Current Facility-Administered Medications: ??? ondansetron (ZOFRAN) injection 4 mg, 4 mg, intravenous, Q30 Min PRN ??? sodium chloride 0.9% infusion, 30 mL/hr, intravenous, Continuous ??? sodium chloride 0.9% infusion, 125 mL/hr, intravenous, Continuous Social History Tobacco Use Smoking Status Current Every Day Smoker ??? Packs/day: 1.00 ??? Years: 40.00 ??? Pack years: 40.00 Smokeless Tobacco Never Used Tobacco Comment Smoking History Packs/day: 0.5 Packs Substance and Sexual Activity Alcohol Use No Substance and Sexual Activity Drug Use Never Family History Problem Relation Age of [...] Diabetes Other Family history of Diabetes mellitus; Vitals: 08/02/21 0741 BP: 120/71 Pulse: 82 Resp: 18 Temp: 36.4 ??C (97.6 ??F) SpO2: 94% PT: No results found for requested labs within last 720 hours. INR: No results found for requested labs within last 720 hours. APTT: No results found for requested labs within last 720 hours. Hgb A1C: No results found for requested labs within last 720 hours. CBC RBC: No results found for requested labs within last 720 hours. RDW: No results found for requested labs within last 720 hours. MCHC: No results found for requested labs within last 720 hours. MCH: No results found for requested labs within last 720 hours. MCV: No results found for requested labs within last 720 hours. Hct: No results found for requested labs within last 720 hours. Hgb: No results found for requested labs within last 720 hours. WBC: No results found for requested labs within last 720 hours. MPV: No results found for requested labs within last 720 hours. Platelets: No results found for requested labs within last 720 hours. RDW CV: No results found for requested labs within last 720 hours. RDW Sd: No results found for requested labs within last 720 hours. BMP Glucose: No results found for requested labs within last 720 hours. Calcium: No results found for requested labs within last 720 hours. Sodium: No results found for requested labs within last 720 hours. Potassium: No results found for requested labs within last 720 hours. CO2: No results found for requested labs within last 720 hours. Chloride: No results found for requested labs within last 720 hours. BUN: No results found for requested labs within last 720 hours. Creatinine: No results found for requested labs within last 720 hours. STOP-Bang Total Score: 3 DOS Physical Exam Medical history, medications, and allergies reviewed. Attestation: This PAT evaluation 08/02/2021. Airway Exam: Mallampati: II Cervical ROM: FROM TM distance: normal Jaw ROM: full Cardiovascular Exam: Rate: regular Rhythm: regular Pulmonary Exam: LCTA EENT Exam: trachea midline Dental Exam: Appears intact Skin Exam: Skin is warm. Turgor is normal. Abdominal Exam: Abdomen is soft. Current state: Patient's current state is cooperative. Anesthesia Plan ASA 3 Planned anesthesia: General/TIVA Induction: Induction: intravenous. Postoperative Plan: No plan for postoperative opioid use. No postoperative mechanical ventilation intended. Patient's planned disposition post procedure is Outpatient. Informed Consent: Discussed plan with SQL PROGRAMMER. Anesthesia plan and risks discussed with patient. Consent and Attending signature: I and/or my designee have discussed the anesthesia plan, benefits, possible alternatives, parental presence at time of induction (if indicated), and clinically relevant risks that may include dental injury, unintentional awareness, and/or other complications. The patient and/or parent/legal guardian understand, and agree to proceed. All questions answered. documented in this encounter Procedure Notes * Chuck Hansen MD - 08/02/2021 7:42 AM CDTAssociated Order(s): EGD [facility] Patient Name: Mirtha Cherry Procedure Date: 08/02/2021 7:42 AM Date of : 1965 Admit Type: Outpatient Age: 56 Gender: Female Attending MD: Chuck Hansen M.D. Room: [facility] ENDOSCOPY ROOM 2 Note Status: Finalized Patient Profile: Refer to note in patient chart for documentation of history and physical. Procedure: Upper GI endoscopy Indications: Dysphagia Referring MD: Feng Alvarez Providers: Chuck Hansen M.D. Impression: - Benign-appearing esophageal stenosis. Dilated. - 3 cm hiatal hernia. - Normal stomach. - Normal examined duodenum. - No specimens collected. Recommendation: - Discharge patient to home. - Resume previous diet. - Continue present medications. - Resume Plavix (clopidogrel) at prior dose in 5 days. - Return to primary care physician as previously scheduled. Medicines: Propofol per Anesthesia Complications: No immediate complications. Estimated Blood Loss: Estimated blood loss: none. Procedure: Pre-Anesthesia Assessment: - This assessment was completed [Time of Assessment] prior to the administration of sedation. The benefits, risks, and alternatives to the procedure and sedation were discussed and informed consent was obtained. The scope was passed under direct vision. The Endoscope GIF-H190 [id number] was introduced through the mouth, and advanced to the second part of duodenum. The upper GI endoscopy was accomplished without difficulty. The upper GI endoscopy was accomplished without difficulty. The patient tolerated the procedure well. The patient tolerated the procedure well. Findings: One benign-appearing, intrinsic moderate stenosis was found 31 cm from the incisors. This stenosis measured 1.1 cm (inner diameter) x less than one cm (in length). The stenosis was traversed. A TTS dilator was passed through the scope. Dilation with an 18-19-20 mm balloon dilator was performed to 20 mm. The dilation site was examined following endoscope reinsertion and showed moderate improvement in luminal narrowing. Estimated blood loss was minimal. A 3 cm hiatal hernia was present. The entire examined stomach was normal. The examined duodenum was normal. Electronically signed by Chuck Hansen M.D. Chuck Hansen M.D. 08/02/2021 8:52:48 AM Number of Addenda: 0 Note Initiated On: 08/02/2021 7:42 AM Procedure Code(s): --- Professional --- 44740, Esophagogastroduodenoscopy, flexible, transoral; with transendoscopic balloon dilation of esophagus (less than 30 mm diameter) Diagnosis Code(s): --- Professional --- R13.10, Dysphagia, unspecified K44.9, Diaphragmatic hernia without obstruction or gangrene K22.2, Esophageal obstruction CPT copyright 2019 [employer]. All rights reserved. The codes documented in this report are preliminary and upon clinical coder review may be revised to meet current compliance requirements. Recognized by the [employer] for promoting quality in endoscopy documented in this encounter Miscellaneous Notes * Perioperative Nursing Note - Adelina Willis, RN - 08/02/2021 9:39 AM CDT 0925 pt has a sm area to her bottom lip that is sl swollen and sore informed Dr Hansen and instructed her to keep ice on it. * Perioperative Nursing Note - Keiry Lombardi RN - 08/02/2021 9:22 AM CDT Patient was discharged by Dr. Zuniga to home. Patient is to resume Plavix in 3-4 days due to dilitation of esophagus. documented in this encounter Plan of Treatment Upcoming Encounters Date Type Department Care Team (Late st Contact Info) Description 02/04/2025 9:30 AM CDT Hospital Encounter [address] [address] Vic Gaines, DO 3 [facility] [address] [place] [id number] 02/04/2025 9:30 AM CDT - 02/04/2025 10:00 AM CDT Surgery [address] [address] Vic Gaines, DO 3 [facility] [address] [place] [address] COLONOSCOPY Scheduled Procedures Name Priority Associated Diagnoses Date/Ti me COLONOSCOPY Encounter for screening colonoscopy 02/04/2025 9:30 AM CDT documented as of this encounter Procedures Procedure Name Priority Date/Time Associated Diagnosis Comments ESOPHAGOGASTRODUODENOSCOPY BALLOON DILATION <30MM 08/02/2021 8:28 AM CDT Dysphagia, unspecified type EGD 08/02/2021 7:42 AM CDT documented in this encounter Results * EGD (08/02/2021 7:42 AM CDT) Anatomical Region Laterality Modality Other Narrative Procedure Note Chuck Hansen MD - 08/02/2021 7:42 AM CDT [facility] Patient Name: Mirtha Cherry Procedure Date: 08/02/2021 7:42 AM Date of : 1965 Admit Type: Outpatient Age: 56 Gender: Female Attending MD: Chuck Hansen M.D. Room: [facility] ENDOSCOPY ROOM 2 Note Status: Finalized Patient Profile: Refer to note in patient chart for documentation of history and physical. Procedure: Upper GI endoscopy Indications: Dysphagia Referring MD: Feng Alvarez Providers: Chuck Hansen M.D. Impression: - Benign-appearing esophageal stenosis. Dilated. - 3 cm hiatal hernia. - Normal stomach. - Normal examined duodenum. - No specimens collected. Recommendation: - Discharge patient to home. - Resume previous diet. - Continue present medications. - Resume Plavix (clopidogrel) at prior dose in 5days. - Return to primary care physician as previously scheduled. Medicines: Propofol per Anesthesia Complications: No immediate complications. Estimated Blood Loss: Estimated blood loss: none. Procedure: Pre-Anesthesia Assessment: - This assessment was completed [Time ofAssessment] prior to the administration of sedation. The benefits, risks, and alternatives to theprocedure and sedation were discussed and informed consentwas obtained. The scope was passed under direct vision. The Endoscope GIF-H190 [id number] was introduced through the mouth, and advanced to the second partof duodenum. The upper GI endoscopy was accomplished without difficulty. The upper GI endoscopy was accomplished without difficulty. The patienttolerated the procedure well. The patient tolerated the procedure well. Findings: One benign-appearing, intrinsic moderate stenosis was found 31 cmfrom the incisors. This stenosis measured 1.1 cm (inner diameter) x lessthan one cm (in length). The stenosis was traversed. A TTS dilator waspassed through the scope. Dilation with an 18-19-20 mm balloon dilator was performed to 20 mm. The dilation site was examined followingendoscope reinsertion and showed moderate improvement in luminal narrowing. Estimated blood loss was minimal. A 3 cm hiatal hernia was present. The entire examined stomach was normal. The examined duodenum was normal. Electronically signed by Chuck Hansen M.D. Chuck Hansen M.D. 08/02/2021 8:52:48 AM Number of Addenda: 0 Note Initiated On: 08/02/2021 7:42 AM Procedure Code(s): --- Professional --- 69406, Esophagogastroduodenoscopy, flexible, transoral; with transendoscopic balloon dilation of esophagus (less than 30 mmdiameter) Diagnosis Code(s): --- Professional --- R13.10, Dysphagia, unspecified K44.9, Diaphragmatic hernia without obstruction or gangrene K22.2, Esophageal obstruction CPT copyright 2019 [employer]. All rights reserved. The codes documented in this report are preliminary and upon clinical coder reviewmay be revised to meet current compliance requirements. Recognized by the [employer] for promoting quality in endoscopy Chuck Hansen MD ENDOSCOPY PROCEDURES Final Re sult documented in this encounter Visit Diagnoses Diagnosis Dysphagia- Primary Dysphagia, unspecified type Encounter for screening colonoscopy documented in this encounter Admitting Diagnoses Diagnosis Dysphagia documented in this encounter Administered Medications Inactive Administered Medications - up to 3 most recent administrations Medication Order MAR Action Action Date Dose Rate Site ondansetron (ZOFRAN) injection 4 mg 4 mg, intravenous, Administer over 2 Minutes, Every 30 min PRN, nausea, vomiting, Starting on Mon08/02/21 at 0736, For 2 doses, Recovery (GI), Indications: Nausea and VomitingIndications:Nausea and Vomiting sodium chloride 0.9% infusion 30 mL/hr, intravenous, Continuous, Starting on Mon08/02/21 at 0815, Pre-Procedure (GI) Restarted 08/02/2021 8:33 AM CDT New Bag 08/02/2021 8:03 AM CDT 30 mL/hr 30 mL/hr sodium chloride 0.9% infusion 125 mL/hr, intravenous, Continuous, Starting on Mon08/02/21 at 0815, Recovery (GI) documented in this encounter Active and Recently Administered Medications Times are shown in CDT. Continuous Medication Order 07/31/2021 08/01/2021 08/02/2021 sodium chloride 0.9% infusion 30 mL/hr, intravenous, Continuous, Starting on Mon08/02/21 at 0815, Pre-Procedure (GI) 0803 (New Bag - Prov ider: Adelina Willis RN)0832 (Paused - Provider: Jacqueline Wilhelm CRNA - Comment: Switch to gravity)0833 (Restarted - Provider: Jacqueline Couch Reinersman, SQL PROGRAMMER) sodium chloride 0.9% infusion 125 mL/hr, intravenous, Continuous, Starting on Mon08/02/21 at 0815, Recovery (GI) 0815 (Due) PRN Medication Order 07/31/2021 08/01/2021 08/02/2021 ondansetron (ZOFRAN) injection 4 mg 4 mg, intravenous, Administer over 2 Minutes, Every 30 min PRN, nausea, vomiting, Starting on Mon08/02/21 at 0736, For 2 doses, Recovery (GI), Indications: Nausea and Vomiting documented in this encounter Orders Medications Ordered That Darrel ht Not Have Been Administered Count Last Ordered Date First Ordered Date ondansetron (ZOFRAN) injection 4 mg 1 08/02 sodium chloride 0.9% infusion 1 08/02/2021 documented in this encounter Care Teams Cobbler Sole Relationship Specialty [place] [address] [place] [address] PCP - General 08/02/21 09/16/21 Phoenix Loredo MD Consulting Physician Cardiology 01/04/19 [place] [address] [place] [address] Digital Developer Obstetrics and Gynecology 04/19/21 documented as of this encounter
--- OUTSIDE RECORDS SUMMARY | 2024-10-13 04:09 | XMS_ITS | Encounter Summary ---
Author Organization [facility] Healthcare Address [address] [place] [address] Care Team Providers Care Hogshead Stripper Name Role Phone Phoenix Loredo MD Unavailable [phone] Aylin Lundy MD Unavailable [phone] Emerson Allen MD Primary Care Provider [phone] Encounter Details Date Type Department Care Team (Latest Contact Info) Description 08/02/2021 7:14 AM CDT - 08/02/2021 9:30 AM CDT Hospital Encounter [facility] [address] [place] [address] Chuck Hansen MD [address] [place] [address] [address] [place] [address] Discharge Disposition: Discharge to home or self [...] on file 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 Gender Identity Not on file Sexual Orientation Not on file documented as of this encounter Last Filed Vital Signs Vital Sign Reading Time Taken Comments Blood Pressure 136/72 08/02/2021 9:23 AM CDT Pulse 69 08/02/2021 9:23 AM CDT Temperature 36.7 ??C (98 ??F) 08/02/2021 9:23 AM CDT Respiratory Rate 20 08/02/2021 9:23 AM CDT Oxygen Saturation 97% 08/02/2021 9:23 AM CDT Inhaled Oxygen Concentration - - Weight 72.6 kg (160 lb) 08/02/2021 7:41 AM CDT Height 154.9 cm (5' 1 ) 08/02/2021 7:41 AM CDT Body Mass Index 30.23 08/02/2021 7:41 AM CDT documented in this encounter Discharge Diagnoses Diagnosis Diaphragmatic hernia without obstruction or gangrene - DIAPHRAGMATIC HERNIA WITHOUT OBSTRUCTION OR GANGRENE Diaphragmatic hernia without mention of obstruction or gangrene Esophageal obstruction - ESOPHAGEAL OBSTRUCTION Stricture and stenosis of esophagus Gastro-esophageal reflux disease without esophagitis - GASTRO-ESOPHAGEAL REFLUX DISEASE WITHOUT ESOPHAGITIS Mixed hyperlipidemia - MIXED HYPERLIPIDEMIA Nontoxic single thyroid nodule - NONTOXIC SINGLE THYROID NODULE Nontoxic uninodular goiter Peripheral vascular disease, unspecified (HCC) - PERIPHERAL VASCULAR DISEASE, UNSPECIFIED Peripheral vascular disease, unspecified Occlusion and stenosis of bilateral carotid arteries - OCCLUSION AND STENOSIS OF BILATERAL CAROTID ARTERIES Unspecified asthma, uncomplicated - UNSPECIFIED ASTHMA, UNCOMPLICATED Migraine, unspecified, not intractable, without status migrainosus - MIGRAINE, UNSPECIFIED, NOT INTRACTABLE, WITHOUT STATUS MIGRAINOSUS Nicotine dependence, cigarettes, uncomplicated - NICOTINE DEPENDENCE, CIGARETTES, UNCOMPLICATED Other snf (current) drug therapy - OTHER 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 (CURRENT) DRUG THERAPY Family history of malignant neoplasm of other organs or systems - FAMILY HISTORY OF MALIGNANT NEOPLASM OF OTHER ORGANS OR SYSTEMS Family history of ischemic heart disease and other diseases of the circulatory system - FAMILY HISTORY OF ISCHEMIC HEART DISEASE AND OTHER DISEASES OF THE CIRCULATORY SYSTEM Family history of diabetes mellitus - FAMILY HISTORY OF DIABETES MELLITUS Allergy status to narcotic agent - ALLERGY STATUS TO NARCOTIC AGENT Allergy status to analgesic agent - ALLERGY STATUS TO ANALGESIC AGENT Allergy status to other drugs, medicaments and biological substances - ALLERGY STATUS TO OTHER DRUGS, MEDICAMENTS AND BIOLOGICAL SUBSTANCES Acquired absence of other specified parts of digestive tract - ACQUIRED ABSENCE OF OTHER SPECIFIED PARTS OF DIGESTIVE TRACT documented in this encounter Medications at Time [...] Hyperlipidemia ??? PVD (peripheral vascular disease) (CMS/HCC) (HCC) ??? Otitis media ??? Thyroid nodule ??? [...] reflux disease GERD ??? 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 HX OTHER MEDICAL 2010 capal [...] 2003 polypectomy for vocal cords OB History No [...] 81 mg tablet Past Week -- -- Charles Stauffer MD Notes: Received from: [facility] Received [...] is Outpatient. Informed Consent: Discussed plan with STRATEGIC DEBRIEFING SPECIALIST. Anesthesia plan and risks discussed with patient. [...] - 08/02/2021 7:42 AM CDTAssociated Order(s): EGD [facility] [place] Patient Name: Mirtha Cherry Procedure Date: 08/02/2021 7:42 AM Date of : 1965 Admit Type: Outpatient Age: 56 Gender: Female Attending MD: Chuck Hansen M.D. Room: [facility] ENDOSCOPY ROOM 2 Note Status: Finalized Patient [...] passed under direct vision. The Endoscope GIF-[id number] was introduced through the mouth, and advanced [...] 7:42 AM Procedure Code(s): --- Professional --- 53244, Esophagogastroduodenoscopy, flexible, transoral; with transendoscopic balloon dilation of esophagus (less than 30 mm diameter) Diagnosis Code(s): --- Professional --- R13.10, Dysphagia, unspecified K44.9, Diaphragmatic hernia without obstruction or gangrene K22.2, Esophageal obstruction CPT copyright 2019 [employer]. All rights reserved. The codes documented in this report are preliminary and upon non clinical advisor review may be revised to meet current compliance requirements. Recognized by the [employer] for promoting quality [...] 02/04/2025 9:30 AM CDT Hospital Encounter [address] [address] Vic Gaines, DO [address] [address] 02/04/2025 9:30 AM CDT - 02/04/2025 10:00 AM CDT Surgery [address] [address] Vic Gaines, DO [address] [address] COLONOSCOPY Scheduled Procedures Name Priority Associated Diagnoses [...] Hansen MD - 08/02/2021 7:42 AM CDT [facility] [place] Patient Name: Mirtha Cherry Procedure Date: 08/02/2021 7:42 AM Date of : 1965 Admit Type: Outpatient Age: 56 Gender: Female Attending MD: Chuck Hansen M.D. Room: [facility] END[facility]COPY ROOM 2 Note Status: Finalized Patient [...] passed under direct vision. The Endoscope [id number] was introduced through the mouth, and advanced [...] 7:42 AM Procedure Code(s): --- Professional --- 33354, Esophagogastroduodenoscopy, flexible, transoral; with transendoscopic balloon dilation of esophagus (less than 30 mmdiameter) Diagnosis Code(s): --- Professional --- R13.10, Dysphagia, unspecified K44.9, Diaphragmatic hernia without obstruction or gangrene K22.2, Esophageal obstruction CPT copyright 2019 [employer]. All rights reserved. The codes documented in this report are preliminary and upon non clinical advisor reviewmay be revised to meet current compliance requirements. Recognized by the [employer] for promoting quality in endoscopy Chuck Hansen MD ENDOSCOPY PROCEDURES Final Re sult documented in this encounter Visit Diagnoses Diagnosis Dysphagia- Primary Encounter for screening colonoscopy documented in [...] Switch to gravity)0833 (Restarted - Provider: Jacqueline Wilhelm CRNA) sodium chloride 0.9% infusion 125 mL/hr, intravenous, [...] 08/02/2021 documented in this encounter Care Teams Hogshead Stripper Relationship Specialty [place] [address] [place] [address] PCP - General 08/02/21 09/16/21 Phoenix Loredo MD Consulting Physician Cardiology 01/04/19 [place] [address] [place] [address] Public Relations Representative Obstetrics and Gynecology 04/19/21 documented as of this encounter
--- OUTSIDE RECORDS SUMMARY | 2024-10-13 04:09 | XMS_ITS | Encounter Summary ---
Author Organization [facility] Medical Group Address [address] [place] [address] Care Team Providers Care Concession Worker Name Role Phone Emerson Allen MD Primary Care Provider [phone] Leticia Loredo MD Unavailable [phone] Reason for Referral * Diagnostic Imaging (Routine) - Closed Specialty Diagnoses / Procedures Referred By Contac t Referred To Contact Diagnoses PVD (peripheral vascular disease) (HCC) Procedures [facility] Leticia Loredo MD Phone: tel: fax: Referral ID Status Reason Start Date Expiration Date Visits Re quested Visits Authorized [id number] Closed 10/12/2020 11/11/2021 1 1 CULTURAL APPRAISER Encounter Details Date Type Department Care Team (Late st Contact Info) Description 10/12/2020 Orders Only [place] [employer] [address] [facility] [address] [place] [address] Leticia Loredo MD 2 [facility] [address] [place] [address] PVD (peripheral vascular disease) (CMS/HCC) (Primary Dx) Social History Tobacco Use Types [...] on file 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 [facility] [address] [place] [place] [address] COLONOSCOPY Scheduled Procedures Name Priority Associated Diagnoses Date/Ti me COLONOSCOPY Encounter for screening colonoscopy 02/04/2025 9:30 AM CDT documented as of this encounter Results * US ABE (2021 8:47 AM CDT) Anatomical Region Laterality Modality Vascular N/A Ultrasound 2021 8:00 AM CDT Narrative 2021 9:53 AM CDT [address] [address] Ankle Brachial Index Report Patient Name: MOSHE HARTLEY ?? : 1965 (56y ) ??Gender: F Study Date: 2021 8:00:00 AM Vp Transportation: Order Provider: LETICIA LOREDO Quality: Adequate Ref.Provider: [...] 113 mmHg ? Rt ABE ?1.12 ?Lt ABE ?0.79 ? Electronically Signed By: Leticia Loredo MD 2021 09:53:55 CDT Procedure Note Leticia Loredo MD - [address] [place] [address] Ankle Brachial Index Report Patient Name: CANDACE HARTLEYORESPatient ID: [id number] : 1965 (56y ) Gender: FStudy Date: [...] By: Leticia Loredo MD 2021 09:53:55 CDT us Leticia Loredo MD IMG US PROCEDURES Final Result documented in this encounter Visit Diagnoses Diagnosis PVD (peripheral vascular disease) (HCC)- Primary Unspecified peripheral vascular disease PVD (peripheral vascular disease) (HCC) Unspecified peripheral vascular disease Encounter for screening colonoscopy documented in this encounter Care Teams Concession Worker Relationship Specialty Start Date End Date Emerson Allen MD PCP - General 06/03/17 07/05/21 Leticia Loredo MD Consulting Physician Cardiology 01/04/19 documented as of this encounter
--- OUTSIDE RECORDS SUMMARY | 2024-10-13 04:09 | XMS_ITS | Encounter Summary ---
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 Gender Identity Not on file Sexual Orientation Not on file documented as of this encounter Plan of Treatment Upcoming Encounters Date Type Department Care Team (Late st Contact Info) Description 02/04/2025 9:30 AM CDT Hospital Encounter [facility] [address] [place] [address] Vic Gaines, DO 3 [facility] [place] [address] [place] [address] 02/04/2025 9:30 AM CDT - 02/04/2025 10:00 AM CDT Surgery [facility] [address] [place] [address] Vic Gaines, DO 3 [facility] [place] [address] [place] [address] COLONOSCOPY Scheduled Procedures Name Priority Associated Diagnoses Date/Ti me COLONOSCOPY Encounter for screening colonoscopy 02/04/2025 9:30 AM CDT documented as of this encounter Procedures Procedure Name Priority Date/Time Associated Diagnosis Comments EGFR Routine 04/29/2021 11:43 AM CDT PVD (peripheral vascular disease) (CMS/HCC) (HCC) DIFFERENTIAL AUTO Routine 04/29/2021 11: 43 AM CDT PVD (peripheral vascular disease) (CMS/HCC) (HCC) CBC WITH AUTO DIFFERENTIAL Routine 04/29/2021 11:43 AM CDT PVD (peripheral vascular disease) (CMS/HCC) (HCC) PROTIME-INR Routine 04/29/2021 11:43 AM CDT PVD (peripheral vascular disease) (CMS/HCC) (HCC) BASIC METABOLIC PANEL Routine 04/29/2021 11:43 AM CDT PVD (peripheral vascular disease) (CMS/HCC) (HCC) documented in this encounter Results * eGFR (04/29/2021 11:43 AM CDT) eGFR 66 mL/min/1.7 3 m2 [facility] ([place]) Comment: Interpretive Data Reference Interval Normal ?>/= [...] Current interpretive data was last reviewed 2020 Blood specimen (specimen) 04/29/2021 11:43 AM CDT 04/29/2021 12:59 PM CDT us Phoenix Loredo MD LAB BLOOD ORDERABLES Final Resu lt [facility] ([place]) 1 [facility] [place] [address] * Differential, auto (04/29/2021 11:43 AM CDT) Neutrophil abs 6.0 1.7 - 6.5 K/cumm [facility] ([place]) Imm gran abs 0.0 0.0 - 0.1 K/cumm [facility] ([place]) Lymphocyte abs 2.5 0.8 - 3.3 K/cumm [facility] ([place]) Monocyte abs 0.6 0.2 - 0.8 K/cumm [facility] ([place]) Eosinophil abs 0.0 0.0 - 0.5 K/cumm [facility] ([place]) Basophil abs 0.0 0.0 - 0.1 K/cumm [facility] ([place]) Neutrophil pct 65.5 % [facility] ([place]) Comment: Interpretive [...] was last revised on 2018. Lymphocyte pct 27.3 % [facility] ([place]) Comment: Interpretive Data Percent cell count reference ranges are not reported, since discordance with absolute values may lead to misinterpretation of CBC data. Current Interpretive Data was last revised on 2018. Monocyte pct 6.1 % [facility] ([place]) Comment: Interpretive Data Percent cell count reference ranges are not reported, since discordance with absolute values may lead to misinterpretation of CBC data. Current Interpretive Data was last revised on 2018. Eosinophil pct 0.4 % [facility] ([place]) Comment: Interpretive [...] Data was last revised on 2018. Blood specimen (specimen) 04/29/2021 11:43 AM CDT 04/29/2021 12:59 PM CDT us Phoenix Loredo MD LAB BLOOD ORDERABLES Final Resu lt [facility] ([place]) 1 [facility] Department [place] [address] * Protime-INR (04/29/2021 11:43 AM CDT) PT 11.5 9.5 - 13.6 sec [facility] ([place]) INR 1.0 0.9 - 1.2 [facility] ([place]) Comment: Interpretive data Oral anticoagulant therapeutic ranges: Venous thromboembolism prophylaxis or treatment: 2.0-3.0 CARDIOLOGY Standard range: 2.0-3.0 High-intensity range: 2.5-3.5 Refer to indication-specific guidelines for appropriate target ranges for prosthetic heart valve replacement. Current interpretive data was last revised on 2019. Blood specimen (specimen) 04/29/2021 11:43 AM CDT 04/29/2021 12:59 PM CDT us Phoenix Loredo MD LAB BLOOD ORDERABLES Final [facility]u lt [facility] ([place]) 1 [facility] Department [place] [address] * Basic metabolic panel (04/29/2021 11:43 AM CDT) Sodium 140 135 - 145 mmol/L [facility] ([place]) Potassium, pl 4.5 3.3 - 4.9 mmol/L [facility] ([place]) Chloride 105 97 - 110 mmol/L [facility]) CO2 26 22 - 32 mmol/L [facility] ([place]) Anion gap 10 2 - 15 mmol/L [facility] ([place]) BUN 9 8 - 25 mg/dL [facility] ([place]) Creatinine 0.95 0.60 - 1.10 mg/dL [facility] ([place]) Glucose 93 70 - 199 mg/dL [facility] ([place]) Comment: Interpretive Data Fasting glucose >/= [...] interpretive data was last revised 2017. Calcium 9.1 8.5 - 10.3 mg/dL [facility] ([place]) Blood specimen (specimen) 04/29/2021 11:43 AM CDT 04/29/2021 12:59 PM CDT us Phoenix Loredo MD LAB BLOOD ORDERABLES Final Resu lt [facility] ([place]) 1 [facility] [place] [address] * (ABNORMAL) CBC with auto differential (04/29/2021 11:43 AM CDT) WBC 9.1 3.8 - 9.9 K/cumm [facility] ([place]) Hgb 15.5 11.9 - 15.5 g/dL [facility] ([place]) Hct 46.8(H) 35.6 - 45.5 % [facility] ([place]) Plt 216 150 - 400 K/cumm [facility] ([place]) MPV 10.7 9.1 - 12.3 fL [facility] ([place]) RBC 5.11 3.90 - 5.20 M/cumm [facility] ([place]) MCV 91.6 81.3 - 96.4 fL [facility] ([place]) MCH 30.3 27.1 - 33.3 pg [facility] ([place]) MCHC 33.1 32.3 - 35.7 g/dL [facility] ([place]) RDW CV 13.0 11.1 - 14.9 % [facility] ([place]) RDW SD 44.3 35.7 - 48.1 fL [facility] ([place]) NRBC abs 0.00 0.00 - 0.01 K/cumm [facility] ([place]) Blood specimen (specimen) 04/29/2021 11:43 AM CDT 04/29/2021 12:59 PM CDT us Phoenix Loredo MD LAB BLOOD ORDERABLES Final Resu lt Performing Organization Address City/[facility]/ZIP Co de Phone Number [facility] ([place]) 1 [facility] Department [place] [address] documented in this encounter Visit Diagnoses Diagnosis PVD (peripheral vascular disease) (HCC) Unspecified peripheral vascular disease Encounter for screening colonoscopy documented in this encounter Care Teams Assistant Professor Of Archaeology Relationship Specialty Start Date End Date Emerson Allen MD PCP - General 06/03/17 07/05/21 Phoenix Loredo MD Consulting Physician Cardiology 01/04/19 [place] [address] [place] [address] Marker Hand Obstetrics and Gynecology 04/19/21 documented as of this encounter
--- OUTSIDE RECORDS SUMMARY | 2024-10-13 04:09 | XMS_ITS | Encounter Summary ---
Author Organization [facility] Address [address] [place] [address] Care Team Providers Care Electronic Bench Technician Name Role Phone Phoenix Loredo MD Unavailable [phone] Aylin Lundy MD Unavailable Emerson Allen MD Primary Care Provider [phone] Reason for Referral * Cardiology (Routine) - Closed Specialty Diagnoses / Procedures Referred By Contmanuela pickard Referred To Contact Diagnoses Irregular heart beat Procedures Event Monitor, 30 Day Event Low Malik NP [address] [facility] [address] [place] [address] Phone: tel: fax: [address] [address] Referral ID Status Reason Start Date Expiration Date Visits Re quested Visits Authorized [id number] Closed 07/12/2021 08/11/2022 1 1 Reason for Visit * Cardiology (Routine) - Closed Specialty Diagnoses / Procedures Referred By Contmanuela pickard Referred To Contact Diagnoses Irregular heart beat Procedures Event Monitor, 30 Day Event Low Malik NP [address] [facility] [address] [place] [address] Phone: tel: fax: [address] [place] [address] Referral ID Status Reason Start Date Expiration Date Visits Re quested Visits Authorized [id number] Closed 07/12/2021 08/11/2022 1 1 Encounter Details Date Type Department Care Team (Greg st Contact Info) Description 08/03/2021 8:29 AM CDT - 08/03/2021 11:59 PM CDT Hospital Encounter [facility] [address] [place] [address] Unknown, Low Fernandez OR DIRECTOR [address] 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 Gender Identity Not on file Sexual Orientation [...] Description 02/04/2025 9:30 AM CDT Hospital Encounter [facility] [address] [place] [address] Vic Gaines, DO [address] [address] 02/04/2025 9:30 AM CDT - 02/04/2025 10:00 AM CDT Surgery [facility] [address] [place] [address] Vic Gaines, DO [address] [address] COLONOSCOPY Scheduled Procedures Name Priority Associated Diagnoses Date/Ti me COLONOSCOPY Encounter for screening colonoscopy 02/04/2025 9:30 AM CDT documented as of this encounter Procedures Procedure Name Priority Date/Time Associated Diagnosis Comments EVENT MONITOR Routine 08/03/2021 9:27 AM CDT Irregular heart beat documented in this encounter Results * Event Monitor, 30 Day Event (08/03/2021 9:27 AM CDT) Anatomical Region Laterality Modality Electrocardiogra phy 08/03/2021 8:30 AM CDT Narrative 09/03/2021 7:48 AM AUCTIONEER ART [address] [address] EVENT MONITOR Patient Name: MOSHE HARTLEY H : 1965 Study Date: 08/03/2021 08:30:00 Gender: F Tech: Ref.Provider: LOW MALIK Height(Cm): BSA: Weight(Kg): Order Provider: LOW MALIK Procedures: Event Report: Event Monitor Report. [...] Signed By: Dr Albert Liu 2021-09-03 07:48:28 AUCTIONEER ART Procedure Note Albert Liu MD - 09/03/[address], [place] [address] EVENT MONITOR Patient Name: MOSHE HARTLEY HPatient ID: [id number] : [id number] Date: 08/03/2021 08:30:00 Gender: FAccession #: [id number] Tech: Ref.Provider: LOW MALIK Height(Cm): BSA: Weight(Kg): Order Provider: LOW MALIK Procedures: Event Report: Event Monitor Report. [...] Signed By: Dr Albert Liu 2021-09-03 07:48:28 AUCTIONEER ART Low Malik OR DIRECTOR [facility] PROCEDU RES Final Result documented in this encounter Visit Diagnoses Diagnosis Irregular heart beat Unspecified cardiac dysrhythmia Encounter for screening colonoscopy documented in this encounter Care Teams Electronic Bench Technician Relationship Specialty [place] [address] [place] [address] PCP - General 08/02/21 09/16/21 Phoenix Loredo MD Consulting Physician Cardiology 01/04/19 [place] [address] [place] [address] Shipfitter Obstetrics and Gynecology 04/19/21 documented as of this encounter
--- OUTSIDE RECORDS SUMMARY | 2024-10-13 04:09 | XMS_ITS | Encounter Summary ---
Author Organization [facility] Address [address] [place] [address] Care Team Providers Care Cna Hha Name Role Phone Leticia Loredo MD Unavailable [phone] Aylin Lundy MD Unavailable [phone] Celine Solano NP Primary Care Provider [phone] Reason for Referral * Diagnostic Imaging (Routine) - Closed Specialty Diagnoses / Procedures Referred By Contac t Referred To Contact Diagnoses PVD (peripheral vascular disease) (HCC) Procedures US ABE Leticia Loredo MD Phone: tel: fax: [address] [address] Referral ID Status Reason Start Date Expiration Date Visits Re quested Visits Authorized [id number] Closed 05/13/2021 06/12/2022 1 1 * Diagnostic Imaging (Routine) - Closed Specialty Diagnoses / Procedures Referred By Contac t Referred To Contact Diagnoses Carotid bruit, unspecified laterality Procedures US Carotids Duplex Bilateral Leticia Loredo MD Phone: tel: fax: [address] [phone] Referral ID Status Reason Start Date Expiration Date Visits Re quested Visits Authorized [id number] Closed 04/26/2021 05/26/2022 1 1 Reason for Visit * Diagnostic Imaging (Routine) - Closed Specialty Diagnoses / Procedures Referred By Contac t Referred To Contact Diagnoses Carotid bruit, unspecified laterality Procedures US Carotids Duplex Bilateral Leticia Loredo MD Phone: tel: fax: [address] [phone] Referral ID Status Reason Start Date Expiration Date Visits Re quested Visits Authorized [id number] Closed 04/26/2021 05/26/2022 1 1 Encounter Details Date Type Department Care Team (Latest Contact Info) Description 07/09/2021 12:45 PM CDT - 07/09/2021 11:59 PM CDT Hospital Encounter [facility] [address] [place] [address] Leticia Loredo MD [address] [place] [address] Carotid bruit, unspecified laterality; PVD (peripheral vascular disease) ([facility]/HCC) ([facility]) Discharge Disposition: Discharge to home or self [...] file 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 9 tablet 2 01/13/2021 documented as of this encounter Discharge Disposition Disposition Code Departure Means Destination Discharge to home or self care documented in this encounter Plan of Treatment Upcoming Encounters Date Type Department Care Team (Late st Contact Info) Description 02/04/2025 9:30 AM CDT Hospital Encounter [facility] [address] [place] [address] Vic Gaines, DO 3 [facility] [address] [place] [address] 02/04/2025 9:30 AM CDT - 02/04/2025 10:00 AM CDT Surgery [address] [address] Vic Gaines, DO 3 [facility] [place] [address] [place] [address] COLONOSCOPY Scheduled Procedures Name Priority Associated Diagnoses Date/Ti me COLONOSCOPY Encounter for screening colonoscopy 02/04/2025 9:30 AM CDT documented as of this encounter Procedures Procedure Name Priority Date/Time Associated Diagnosis Comments US CAROTIDS DUPLEX BILATERAL Schedule Routine, Read Routine (OP Routine) 07/09/2021 2:00 PM CDT Carotid bruit, unspecified laterality US ABE Schedule Routine, Read Routine (OP Routine) 07/09/2021 1:58 PM CDT PVD (peripheral vascular disease) (CMS/HCC) (HCC) documented in this encounter Results * US Carotids Duplex Bilateral (07/09/2021 2:00 PM CDT) Anatomical Region Laterality Modality Vascular Bilateral Ultrasound 07/09/2021 1:18 PM CDT Narrative 07/09/2021 2:12 PM CDT [address] [address] Carotid Duplex Report Patient Name: MOSHE HARTLEY ?? : 1965 (56y 2m) ??Gender: F Study Date: 07/09/2021 13:18:42 Summer Analyst: LIDA Doll Provider: LETICIA LOREDO Quality: Adequate Ref.Provider: LETICIA LOREDO Procedures: Arterial Report: Color Duplex ultrasound [...] Procedure Note Levi Stern, DO - 07/09/[address] [place] [address] Carotid Duplex Report Patient Name: CANDACE HARTLEYORESPatient ID: [id number] : 1965 (56y 2m) Gender: FStudy Date: 07/09/2021 13:18:42 LIDA Doll Provider: LETICIA LOREDOQuality: Adequate Ref.Provider: LETICIA LOREDO Procedures: Arterial Report: Color Duplex ultrasound [...] Dr Levi Stern 2021-07-09 14:11:58 CDT us Leticia Loredo MD IMG US PROCEDURES Final Result * US ABE (07/09/2021 1:58 PM CDT) Anatomical Region Laterality Modality Vascular N/A Ultrasound 07/09/2021 1:32 PM CDT Narrative 07/09/2021 2:16 PM CDT [address] [address] Ankle Brachial Index Report Patient Name: MOSHE HARTLEY ?? : 1965 (56y 2m) ??Gender: F Study Date: 07/09/2021 1:32:00 PM Summer Analyst: Lavon Provider: LETICIA LOREDO Quality: Adequate Ref.Provider: LETICIA [...] the ankle. Measurements: RightValueLeftValue Electronically Signed By: Leticia Loredo MD 2021-07-09 14:16:02 CDT Procedure Note Leticia Loredo MD - 07/09/[address] [address] Ankle Brachial Index Report Patient Name: Adry HARTLEY ID: [id number] : 1965 (56y 2m) Gender: FStudy Date: 07/09/2021 1:32:00 PM Order Provider: LETICIA LOREDOQuality: Adequate Ref.Provider: LETICIA [...] the ankle. Measurements: RightValueLeftValue Electronically Signed By: Leticia Loredo MD 2021-07-09 14:16:02 CDT us Leticia Loredo MD [facility] [place] US PROCEDURES Final Result documented in this encounter Visit Diagnoses Diagnosis Carotid bruit, unspecified laterality PVD (peripheral vascular disease) (HCC) Unspecified peripheral vascular disease Encounter for screening colonoscopy documented in this encounter Care Teams Cna Hha Relationship Specialty [place] [address] [place] [address] PCP - General Family Medicine 07/06/21 07/22/21 Leticia Loredo MD Consulting Physician Cardiology 01/04/19 [place] [address] [place] [address] Steel Buffer Obstetrics and Gynecology 04/19/21 documented as of this encounter
--- OUTSIDE RECORDS SUMMARY | 2024-10-13 04:09 | XMS_ITS | Encounter Summary ---
Author Organization [facility] Address [address] [place] [address] Care Team Providers Care Investment Consultant Name Role Phone Phoenix Loredo MD Unavailable [phone] Aylin Lundy MD Unavailable [phone] Emerson Allen MD Primary Care Provider [phone] Encounter Details Date Type Department Care Team (Late st Contact Info) Description 08/02/2021 8:33 AM CDT Anesthesia Event [address] [address] [place] [address] [facility] [address] [place] [address] Kilo Decker MD [address] [facility] [address] [place] [address] Anesthesia Record Procedure Summary Procedure Name Responsible Anesthesiologist Anesthesia Start Time Anesthesia Stop Time ESOPHAGOGASTRODUODENOSCOPY BALLOON DILATION <30MM Quentin Carrillo MD 08/02/21 0833 08/02/21 0849 Events Date Time Event Comment 08/02/2021 0802 0833 An Start 0833 An Start Data 0833 In Room 0833 Start Supplemental O2 0833 Patient Positioned Laterally 0838 An Induction The patient was reevaluated immediately before moderate or deep sedation use and before anesthesia induction. 0838 Anesthesia Ready 0839 Proc Start 0846 Proc Fin 0847 an stop data 0848 Out of Room 0848 Handoff to RN I completed my handoff [...] Patient disposition at the time of handoff: No value filed. 0849 An Stop Meds Name Total propofol 150 mg lidocaine 2 % PF 100 mg sodium chloride 0.9% infusion 0 mL * Agents Name O2 * Blood No blood administrations on file. 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 Gender Identity Not on file Sexual Orientation Not on file documented as of this encounter OR Notes * Anesthesia Postprocedure Evaluation - Jacqueline Wilhelm CRNA - 08/02/2021 8:50 AM CDT Patient: Mirtha Cherry Procedure Summary Date: 08/02/21 Room / Location: [facility] ROOM 2 / [facility] Anesthesia Start: 832 Anesthesia Stop: 848 Procedure: ESOPHAGOGASTRODUODENOSCOPY BALLOON DILATION <30MM (N/A ) Diagnosis: Dysphagia, unspecified type (Dysphagia, unspecified type [R13.10]) Providers: Chuck Hansen MD Responsible Provider: Quentin Carrillo MD Anesthesia Type: general/TIVA ASA Status: 3 Anesthesia Type: general/TIVA Last vitals BP 120/71 Pulse 82 Temp 36.4 ??C (97.6 ??F) (Temporal) Resp 18 SpO2 94% Anesthesia Post Evaluation Patient location during evaluation: PACU Patient participation: complete - patient participated 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 * Anesthesia Preprocedure Evaluation - Kilo Decker MD - 08/02/2021 8:00 [...] reflux disease GERD ??? 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 HX OTHER MEDICAL 2010 capal [...] is Outpatient. Informed Consent: Discussed plan with PARTY SUPPLY SPECIALIST. Anesthesia plan and risks discussed with [...] 02/04/2025 9:30 AM CDT Hospital Encounter [address] [address] Vic Gaines, DO 3 [facility] [address] [place] [address] 02/04/2025 9:30 AM CDT - 02/04/2025 10:00 AM CDT Surgery [facility] [address] [place] [address] Vic Gaines, DO 3 [facility] [address] [place] [address] COLONOSCOPY Scheduled Procedures Name Priority Associated Diagnoses Date/Ti me COLONOSCOPY Encounter for screening colonoscopy 02/04/2025 9:30 AM CDT documented as of this encounter Visit Diagnoses Not on filedocumented in this encounter Administered Medications Inactive Administered Medications - up to 3 most recent administrations Medication Order MAR Action Action Date Dose Rate Site lidocaine (XYLOCAINE) 20 mg/mL (2 %) preservative free injection intravenous, As needed, Starting on Mon08/02/21 at 0838, Anesthesia Intra-op Given 08/02/2021 8:38 AM CDT 100 mg propofoL (DIPRIVAN) 10 mg/mL IV intravenous, As needed, Starting on Mon08/02/21 at 0838, Anesthesia Intra-op Given 08/02/2021 8:45 AM CDT 20 mg Given 08/02/2021 8:42 AM CDT 30 mg Given 08/02/2021 8:38 AM CDT 100 mg sodium chloride 0.9% infusion 30 mL/hr, intravenous, Continuous, Starting on Mon08/02/21 at 0815, Pre-Procedure (GI) Restarted 08/02/2021 8:33 AM CDT New Bag 08/02/2021 8:03 AM CDT 30 mL/hr 30 mL/hr documented in this encounter Care Teams Investment Consultant Relationship Specialty [place] [address] [place] [address] PCP - General 08/02/21 09/16/21 Phoenix Loredo MD Consulting Physician Cardiology 01/04/19 [place] [address] [place] [address] Mobile Equipment Mechanic Obstetrics and Gynecology 04/19/21 documented as of this encounter
--- OUTSIDE RECORDS SUMMARY | 2024-10-13 04:09 | XMS_ITS | Encounter Summary ---
Author Organization [facility] Address [address] [facility] [address] [place] [address] Care Team Providers Care Screening Representative Name Role Phone Phoenix Loredo MD Unavailable [phone] Aylin Lundy MD Unavailable [phone] Celine Solano NP Primary Care Provider [phone] Encounter Details Date Type Department Care Team (Late st Contact Info) Description 07/20/[address] 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 Gender Identity Not on file Sexual Orientation Not on file documented as of this encounter Progress Notes * Urmila Nye LPN - 07/20/2021 12:36 PM CDT Placed covid order for pt prior to pft documented in this encounter Plan of Treatment Upcoming Encounters Date Type Department Care Team (Late st Contact Info) Description 02/04/2025 9:30 AM CDT Hospital Encounter [address] [address] Vic Gaines, DO [address] [address] 02/04/2025 9:30 AM CDT - 02/04/2025 10:00 AM CDT Surgery [address] [address] Vic Gaines, DO 3 [facility] [place] [address] [place] [address] COLONOSCOPY Scheduled Procedures Name Priority Associated Diagnoses Date/Ti me COLONOSCOPY Encounter for screening colonoscopy 02/04/2025 9:30 AM CDT documented as of this encounter Visit Diagnoses Not on filedocumented in this encounter Care Teams Screening Representative Relationship Specialty Start Date End Date Celine Solano NP [address] [place] [address] PCP - General Family Medicine 07/06/21 07/22/21 Phoenix Loredo MD Consulting Physician Cardiology 01/04/19 Aylin Lundy MD [address] [place] [address] Rn Unit Manager Obstetrics and Gynecology 04/19/21 documented as of this encounter
--- OUTSIDE RECORDS SUMMARY | 2024-10-13 04:09 | XMS_ITS | Encounter Summary ---
Author Organization [facility] Address [address] [facility] [address] [place] [address] Care Team Providers Care Sock Mender Name Role Phone Emerson Allen MD Primary Care Provider [phone] Phoenix Loredo MD Unavailable [phone] Aylin Lundy MD Unavailable [phone] Encounter Details Date Type Department Care Team (Late st Contact Info) Description 06/17/2021 Telephone [facility] [address] [place] [address] Emerson Allen MD [address] [facility] [address] [place] [address] Social History Tobacco Use Types [...] on file 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 * Addendum Note - Erlinda Mcnally MA - 06/17/2021 1:34 PM CDTAddended by: ERLINDA MCNALLY on: 06/17/2021 01:34 PM Modules accepted: Orders * Telephone Encounter - Lexie Wong - 06/17/2021 10:11 AM CDT [facility] [place] called and stated they have sent multiple requests for the Flonase. Please contact the pharmacy back at [phone], Nataly. documented in this encounter Plan of Treatment Upcoming Encounters Date Type Department Care Team (Late st Contact Info) Description 02/04/2025 9:30 AM CDT Hospital Encounter [facility] 1 [place] [address] Vic Gaines, DO [address] [address] 02/04/2025 9:30 AM CDT - 02/04/2025 10:00 AM CDT Surgery [facility] 1 [place] [address] Vic Gaines, DO [address] [address] COLONOSCOPY Scheduled Procedures Name Priority Associated Diagnoses Date/Ti me COLONOSCOPY Encounter for screening colonoscopy 02/04/2025 9:30 AM CDT documented as of this encounter Visit Diagnoses Not on filedocumented in this encounter Discontinued Medications Medication Sig Discontinue Reason Start Date End Da te fluticasone propionate (FLONASE) 50 mcg/actuation nasal spray SHAKE LIQUID AND USE 1 SPRAY IN EACH NOSTRIL DAILY Reorder 08/19/2020 06/17/2021 documented as of this encounter Care Teams Sock Mender Relationship Specialty Start Date End Date Emerson Allen MD PCP - General 06/03/17 07/05/21 Phoenix Loredo MD Consulting Physician Cardiology 01/04/19 [place] [address] [place] [address] Women'S Ministry Director Obstetrics and Gynecology 04/19/21 documented as of this encounter
--- OUTSIDE RECORDS SUMMARY | 2024-10-13 04:09 | XMS_ITS | Encounter Summary ---
Author Organization [facility] Address [address] [place] [address] Care Team Providers Care Arch Cushion Press Operator Name Role Phone Emerson Allen MD Primary Care Provider [phone] Phoenix Loredo MD Unavailable [phone] Aylin Lundy MD Unavailable [phone] Reason for Referral * Diagnostic Imaging (Routine) - Closed Specialty Diagnoses / Procedures Referred By Contac t Referred To Contact Diagnoses PVD (peripheral vascular disease) (HCC) Procedures US [facility] Phoenix Loredo MD Phone: tel: fax: [address] [address] Referral ID Status Reason Start Date Expiration Date Visits Re quested Visits Authorized [id number] Closed 05/13/2021 06/12/2022 1 1 Encounter Details Date Type Department Care Team (Latest Contact Info) Description 05/13/2021 7:21 AM CDT - 05/13/2021 12:57 PM CDT Hospital Encounter [facility] Cardiac Catheterization [address] [place] [address] Phoenix Loredo MD [address] [place] [id number] PVD (peripheral vascular disease) (CMS/HCC) (HCC) (Primary Dx) Discharge Disposition: Discharge to [...] on file 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 Gender Identity Not on file Sexual Orientation Not on file documented as of this encounter Last Filed Vital Signs Vital Sign Reading Time Taken Comments Blood Pressure 137/82 05/13/2021 12:40 PM CDT Pulse 70 05/13/2021 12:40 PM CDT Temperature 37.2 ??C (98.9 ??F) 05/13/2021 7:41 AM CD T Respiratory Rate 18 05/13/2021 12:40 PM CDT Oxygen Saturation 97% 05/13/2021 12:40 PM CDT Inhaled Oxygen Concentration - - Weight 72.6 kg (160 lb) 05/13/2021 7:41 AM CDT Height 154.9 cm (5' 1 ) 05/13/2021 7:41 AM CDT Body Mass Index 30.23 05/13/2021 7:41 AM CDT documented in this encounter Discharge Diagnoses Diagnosis 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, left leg ([facility]) - ATHEROSCLEROSIS OF COEUR D'ALENE ARTERIES OF EXTREMITIES WITH INTERMITTENT CLAUDICATION, LEFT LEG Stenosis of peripheral vascular stent, initial encounter ([facility]) - STENOSIS OF PERIPHERAL VASCULAR STENT, INITIAL ENCOUNTER Surgical operation with anastomosis, bypass or graft as the cause of abnormal reaction of the patient, or of later complication, without mention of misadventure at the time of the procedure - SURGICAL OPERATION WITH ANASTOMOSIS, BYPASS OR GRAFT THE CAUSE OF ABNORMAL REACTION OF THE PATIEN Unspecified place or not applicable - UNSPECIFIED PLACE OR NOT APPLICABLE Pure hypercholesterolemia, unspecified - PURE HYPERCHOLESTEROLEMIA, UNSPECIFIED Unspecified asthma, uncomplicated - UNSPECIFIED ASTHMA, UNCOMPLICATED Gastro-esophageal reflux disease without esophagitis - GASTRO-ESOPHAGEAL REFLUX DISEASE WITHOUT ESOPHAGITIS Family history of ischemic heart disease and other diseases of the circulatory system - FAMILY HISTORY OF ISCHEMIC HEART DISEASE AND OTHER DISEASES OF THE CIRCULATORY SYSTEM Nicotine dependence, unspecified, uncomplicated - NICOTINE DEPENDENCE, UNSPECIFIED, UNCOMPLICATED Allergy status to narcotic agent - ALLERGY STATUS TO NARCOTIC AGENT correction (current) use of aspirin - WALLPAPER REMOVER STEAM (CURRENT) USE OF ASPIRIN parts counterman (current) use of antithrombotics/antiplatelets - WALLPAPER REMOVER STEAM (CURRENT) USE OF ANTITHROMBOTICS/ANTIPLATELETS parts counterman (current) use of inhaled steroids - DETENTION (CURRENT) USE OF INHALED STEROIDS documented in this encounter Discharge Instructions * [...] Primary Care Physician in 2-3 weeks and Manager Billing in 4-6 weeks. * Discharge Instr - Other Orders* Bonita Beard RN - 05/13/2021 9:20 AM CDT ?? You need to have a repeat ABE exam done 3-5 days PRIOR to seeing Dr. Loredo on June 15, 2021. Please call our Centralized Scheduling Department at [phone] to have this set up. If you have any issues getting this scheduled in the correct time frame you can call [phone] for assistance. documented in this encounter Medications [...] to undergo bunion surgery and refered by wireline supervisor for weak pedal pulses. US doppler showed [...] reflux disease GERD ??? 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 HX OTHER MEDICAL 2010 capal tunnel [...] the ankle. EK12/2015 SR possible old anterior VA 07/2016 SR , possible old anterior VA Diagnoses and Plan Assessment: #1 PAD, Bilateral [...] 02/04/2025 9:30 AM CDT Hospital Encounter [address] [address] Vic Gaines, DO [address] [place] [address] [place] [address] 02/04/2025 9:30 AM CDT - 02/04/2025 10:00 AM CDT Surgery [address] [address] Vic Gaines, DO [address] [place] [address] [place] [address] COLONOSCOPY Scheduled Procedures Name Priority Associated Diagnoses Date/Ti me COLONOSCOPY Encounter for screening colonoscopy 02/04/2025 9:30 AM CDT documented as of this encounter Procedures Procedure Name Priority Date/Time Associated Diagnosis Comments AORTOG ABD+STEFANY LOW EXTRM Routine 05/13/2021 9:11 AM CDT PVD (peripheral vascular disease) (CMS/HCC) (HCC) ANGIOGRAPHY UNILATERAL EXTREMITY S&I 50151 Routine 05/13/2021 9:11 AM CDT PVD (peripheral vascular disease) (CMS/HCC) (HCC) REVAS ENDOVASILIAC W STNT [id number] Routine 05/13/2021 9:11 AM CDT PVD (peripheral vascular disease) (CMS/HCC) (HCC) CARDIAC CATHETERIZATION Routine 05/13/20 9:11 AM CDT PVD (peripheral vascular disease) (CMS/HCC) (HCC) documented in this encounter Results * US ABE (07/09/2021 1:58 PM CDT) Anatomical Region Laterality Modality Vascular N/A Ultrasound 07/09/2021 1:32 PM CDT Narrative 07/09/2021 2:[address] PM [address]T [address] [address] Ankle Brachial Index Report Patient Name: MOSHE HARTLEY ?? : 1965 (56y 2m) ??Gender: F Study Date: 07/09/2021 1:32:00 PM Maintenance Shop Manager: Lavon Provider: PHOENIX LOREDO Quality: Adequate Ref.Provider: PHOENIX [...] Procedure Note Phoenix Loredo MD - 07/09/[address] [address] Ankle Brachial Index Report Patient Name: CANDACE HARTLEYORESPatient ID: [id number] : 1965 (56y 2m) Gender: FStudy Date: [...] By: Phoenix Loredo MD 2021-07-09 14:16:02 CDT us Phoenix Loredo MD [facility] US PROCEDURES Final Result * PERIPHERAL ANGIOGRAPHY, REVAS ENDOVASILIAC W STNT 61007, ANGIOGRAPHY UNILATERAL EXTREMITY S&I 88264, AORTOG ABD+STEFANY LOW EXTRM (05/13/2021 9:11 AM CDT) Anatomical Region Laterality Modality X-Ray Angiograph y 05/13/2021 Narrative 05/16/2021 11:36 AM CDT [employer] Job ID: [id number] [employer] Document ID: [id number] Dictated date/time: [id number] PERIPHERAL ANGIOGRAPHY AND INTERVENTION A 56-year-old with [...] consent, patient was brought to the cardiac dye lab technician suite. ??She was prepped and draped in the usual sterile fashion. ?? Conscious sedation was administered by the dye lab technician staff under my supervision. ??A total of 4 mg of Versed, 100 mcg of fentanyl, and 25 mg of Benadryl were given in divided doses. ??See procedure log for further details. ??Total sedation time was 37 minutes. ??A 5-Moldovan sheath was inserted in the left femoral artery. ??Ipsilateral lower extremity angiography was performed using sheath injection. ??A pigtail catheter was advanced to the abdominal aorta and used to perform abdominal aortography and runoff of the right lower extremity. ??The sheath was then upsized to 7-Moldovan for intervention on the left lower extremity, [...] Phoenix Loredo MD JOB ID/VF JOB ID: ??[id number] Phoenix Loredo MD CV CARDIAC CATH PROCEDURES [...] 7:46 AM CDT 0.5 mg diphenhydrAMINE (BENADRYL) tab/cap 25 mg 25 mg, oral, Once, On Laura 8/5/21 at 0815, For 1 dose, Pre-Procedure (CV) Given 05/13/2021 7:47 AM CDT 25 mg sodium chloride 0.9% infusion 50 mL/hr, [...] (CV) 0747 (Given - Provid er: Caroline Zimmerman, GAGE) sodium chloride 0.9% infusion (COMPLETED) 50 mL/hr, [...] Caroline Zimmerman, RN)1242 (Stopped - Provider: Caroline Zimmerman, GAGE) PRN Medication Order 05/11/2021 05/12/2021 05/13/2021 diphenhydrAMINE [...] Rausch RN) documented in this encounter Orders Medications Ordered That Darrel ht Not Have Been Administered Count Last Ordered Date First Ordered Date diphenhydrAMINE (BENADRYL) injection 1 02/2021 fentaNYL (SUBLIMAZE) preserv ative free injection 1 05/13/2021 heparin 1,000 unit/mL injection 1 lidocaine PF (XYLOCAINE) 10 mg/mL (1 %) preservative free injection 1 05/13/2021 midazolam (VERSED) 1 mg/mL p reservative free injection 1 05/13/2021 ondansetron (ZOFRAN) injection 1 05/13/2021 CORE MEASURES Count Last Ordered Date First Ord ered Date REASON FOR NO VTE PROPHYLAXIS AT ADMISSION 1 05/13/2021 documented in this encounter Care Teams Arch Cushion Press Operator Relationship Specialty Start Date End Date Emerson Allen MD PCP - General 06/03/17 07/05/21 Phoenix Loredo MD Consulting Physician Cardiology 01/04/19 [place] [address] [place] [address] Foil Stamp Operator Obstetrics and Gynecology 04/19/21 documented as of this encounter
--- OUTSIDE RECORDS SUMMARY | 2024-10-13 04:09 | XMS_ITS | Encounter Summary ---
Author Organization [facility] Address [address] [place] [address] Care Team Providers Care Ship Engineer Name Role Phone Phoenix Loredo MD Unavailable [phone] Aylin Lundy MD Unavailable [phone] Emerson Allen MD Primary Care Provider [phone] Reason for Referral * (Routine) - Closed Specialty Diagnoses / Procedures Referred By Contac t Referred To Contact Diagnoses Mild intermittent asthma without complication Procedures Pulmonary Function Test -[facility]; Complete/Full (Spirometry, Pleth and DLCO) Ho Jarrett MD Phone: tel: fax: Referral ID Status Reason Start Date Expiration Date Visits Re quested Visits Authorized [id number] Closed 07/20/2021 08/19/2022 1 1 ET SWEEPER OPERATOR Reason for Visit * (Routine) - Closed Specialty Diagnoses / Procedures Referred By Contac t Referred To Contact Diagnoses Mild intermittent asthma without complication Procedures Pulmonary Function Test -[facility]; Complete/Full (Spirometry, Pleth and DLCO) Ho Jarrett MD Phone: tel: fax: Referral ID Status Reason Start Date Expiration Date Visits Re quested Visits Authorized [id number] Closed 07/20/2021 08/19/2022 1 1 Encounter Details Date Type Department Care Team (Latest Contact Info) Description 08/16/2021 8:[address] SWEEPER OPERATOR - 08/16/2021 11:[address] SWEEPER OPERATOR Hospital Encounter [facility] Respiratory [address] [place] [address] Ho Jarrett MD 4 [facility] [address] [place] [address] Mild intermittent asthma without complication Discharge Disposition: Discharge to home or self [...] on file Legal Sex Female 8:[address] SWEEPER OPERATOR Gender Identity Not on file Sexual [...] 02/04/2025 9:30 AM CDT Hospital Encounter [address] [address] Vic Gaines, DO [address] [address] 02/04/2025 9:30 AM CDT - 02/04/2025 10:00 AM CDT Surgery [address] [address] Vic Gaines, DO 3 [facility] [address] [place] [address] COLONOSCOPY Scheduled Procedures Name Priority Associated Diagnoses Date/Ti me COLONOSCOPY Encounter for screening colonoscopy 02/04/2025 9:30 AM CDT documented as of this encounter Procedures Procedure Name Priority Date/Time Associated Diagnosis Comments PULMONARY FUNCTION TEST (PFT) Routine 08/16/2021 8:[address] SWEEPER OPERATOR Mild intermittent asthma without complication documented in this encounter Results * Pulmonary Function Test -[facility]; Complete/Full (Spirometry, Pleth and DLCO) (08/16/2021 8:[address] SWEEPER OPERATOR) Anatomical Region Laterality Modality PFT Narrative 08/16/2021 5:[address] SWEEPER OPERATOR Study showed good patient effort. Spirometry [...] correlation is recommended. Electronically signed, Sandra Ceja MD,[facility], [facility] Pulmonary, Critical Care and Sleep Medicine Ho Jarrett MD PFT ORDERABLES Final Result documented in this encounter Visit Diagnoses Diagnosis Mild intermittent asthma without complication Encounter for screening colonoscopy documented in this encounter Care Teams Ship Engineer Relationship Specialty Start Date End Date Emerson Allen MD [address] [place] [address] PCP - General 08/02/21 09/16/21 Phoenix Loredo MD Consulting Physician Cardiology 01/04/19 yAlin Lundy MD [address] [place] [address] Certified Performance Technologist Obstetrics and Gynecology 04/19/21 documented as of this encounter
--- OUTSIDE RECORDS SUMMARY | 2024-10-13 04:09 | XMS_ITS | Encounter Summary ---
Author Organization [facility] Address [address] [facility] [address] [place] [address] Care Team Providers Care Grain Inspector Name Role Phone Emerson Allen MD Primary Care Provider [phone] Phoenix Loredo MD Unavailable [phone] Aylin Lundy MD Unavailable [phone] Encounter Details Date Type Department Care Team (Late st Contact Info) Description 05/13/[address] Orders [address] Supervisor 2 [facility] [address] [place] [address] Bonita Beard, GAGE Social History Tobacco Use Types Packs/Day Years [...] on file 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 Gender Identity Not on file Sexual Orientation Not on file documented as of this encounter Plan of Treatment Upcoming Encounters Date Type Department Care Team (Late st Contact Info) Description 02/04/2025 9:30 AM CDT Hospital Encounter [address] [address] Vic Gaines, DO 3 [facility] [address] [place] [address] 02/04/2025 9:30 AM CDT - 02/04/2025 10:00 AM CDT Surgery [address] [address] Vic Gaines, DO 3 [facility] [address] [place] [address] COLONOSCOPY Scheduled Procedures Name Priority Associated Diagnoses Date/Ti me COLONOSCOPY Encounter for screening colonoscopy 02/04/2025 9:30 AM CDT documented as of this encounter Visit Diagnoses Not on filedocumented in this encounter Care Teams Grain Inspector Relationship Specialty Start Date End Date Emerson Allen MD PCP - General 06/03/17 07/05/21 Phoenix Loredo MD Consulting Physician Cardiology 01/04/19 [place] [address] [place] [address] Sleeve Tailor Obstetrics and Gynecology 04/19/21 documented as of this encounter
--- OUTSIDE RECORDS SUMMARY | 2024-10-13 04:09 | XMS_ITS | Encounter Summary ---
Author Organization [facility] Healthcare Address [address] [place] [address] Care Team Providers Care Music Library Assistant Name Role Phone Phoenix Loredo MD Unavailable [phone] Aylin Lundy MD Unavailable [phone] Emerson Allen MD Primary Care Provider [phone] Encounter Details Date Type Department Care Team (Late st Contact Info) Description 07/30/2021 12:10 PM CDT Lab [address] [address] Chuck Hansen MD [address] [place] [address] [address] [place] [address] Pre-procedure lab exam Discharge Disposition: Discharge to home or self [...] on file 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 Gender Identity Not on file Sexual Orientation Not on file documented as of this encounter Discharge Disposition Disposition Code Departure Means Destination Discharge to home or self care documented in this encounter Plan of Treatment Upcoming Encounters Date Type Department Care Team (Late st Contact Info) Description 02/04/2025 9:30 AM CDT Hospital Encounter [address] [address] Vic Gaines, DO [address] [place] [address] [place] [address] 02/04/2025 9:30 AM CDT - 02/04/2025 10:00 AM CDT Surgery [address] [address] Vic Gaines, DO [address] [place] [address] [place] [address] COLONOSCOPY Scheduled Procedures Name Priority Associated Diagnoses Date/Ti me COLONOSCOPY Encounter for screening colonoscopy 02/04/2025 9:30 AM CDT documented as of this encounter Procedures Procedure Name Priority Date/Time Associated Diagnosis Comments COVID-19 CORONAVIRUS RNA Routine 07/30/2021 12:19 PM CDT Pre-procedure lab exam documented in this encounter Results * COVID-19 Coronavirus RNA Nasopharyngeal (07/30/2021 12:19 PM CDT) COVID-19 RNA Not Detected [facility] (ETOWAH) Comment: Interpretive Data Synonyms for this test include: PCR and NAAT . ??Testing performed by the [facility] Molecular Infectious Disease Laboratory. The 2019-Novel [...] on November 12, 2020. Testing performed by: [facility], [address] [place]., [address] First COVID-19 test? No [facility] (ARTEMIO) Comment:Testing performed by : [facility], [address] [facility], [address] Employeed in healthcare? No [facility] (ARTEMIO) Comment:Testing performed by : [facility], [address] [place] [address], [address] status? No CE [facility] (ARTEMIO) Comment:Testing performed by : [facility], [address] [facility], [address] Group care resident? No [facility] (ARTEMIO) Comment:Testing performed by : [facility], [address] [place] [address], [address] Hospitalized? No [facility] (ARTEMIO) Comment:Testing performed by : [facility], [address] [facility], [address] Is patient in ICU? No [facility] (ARTEMIO) Comment:Testing performed by : [facility], [address] [facility], [address] Symptomatic as defined by CDC? No TOSHANER FELECIA (ARTEMIO) Comment:Testing performed by : [facility], [address] [place] [address], [address] Nasopharyngeal 07/30/2021 12 :19 PM CDT 07/30/2021 5:29 PM CDT Narrative JAY IZQUIERDO (ARTEMIO) - 07/31/2021 2:03 AM CDT What is the reason for testing?->Screening prior to scheduled procedure or surgery (batch) us Chuck Hansen MD LAB MICROBIOLOGY - GENERAL OR DERABLES Final Result [facility] (ARTEMIO) 1 [facility] [place] [address] documented in this encounter Visit Diagnoses Diagnosis Pre-procedure lab exam Pre-procedural laboratory examination Encounter for screening colonoscopy documented in this encounter Care Teams Music Library Assistant Relationship Specialty [place] [address] [place] [address] PCP - General 07/23/21 08/01/21 Phoenix Loredo MD Consulting Physician Cardiology 01/04/19 [place] [address] [place] [address] Peanut Separator Obstetrics and Gynecology 04/19/21 documented as of this encounter
--- OUTSIDE RECORDS SUMMARY | 2024-10-13 04:09 | XMS_ITS | Encounter Summary ---
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 Gender Identity Not on file Sexual Orientation Not on file documented as of this encounter Discharge Disposition Disposition Code Departure Means Destination Discharge to home or self care documented in this encounter Plan of Treatment Upcoming Encounters Date Type Department Care Team (Late st Contact Info) Description 02/04/2025 9:30 AM CDT Hospital Encounter [facility] 1 [place] [address] Vic Gaines, DO [address] [place] [address] [place] [address] 02/04/2025 9:30 AM CDT - 02/04/2025 10:00 AM CDT Surgery [facility] 1 [place] [address] Vic Gaines, DO [address] [place] [address] [place] [address] COLONOSCOPY Scheduled Procedures Name Priority Associated Diagnoses Date/Ti me COLONOSCOPY Encounter for screening colonoscopy 02/04/2025 9:30 AM CDT documented as of this encounter Procedures Procedure Name Priority Date/Time Associated Diagnosis Comments EGFR Routine 04/10/2021 7:14 AM CDT Mixed hyperlipidemia DIFFERENTIAL AUTO Routine 04/10/2021 7:1 4 AM CDT Mixed hyperlipidemia CBC WITH AUTO DIFFERENTIAL Routine 04/10/2021 7:14 AM CDT Mixed hyperlipidemia LIPID PANEL Routine 04/10/2021 7:14 AM CDT Mixed hyperlipidemia COMPREHENSIVE METABOLIC PANEL Routine 04/10/2021 7:14 AM CDT Mixed hyperlipidemia documented in this encounter Results * eGFR (04/10/2021 7:14 AM CDT) eGFR 94 mL/min/1.7 3 m2 [facility] ([place]) Comment: Interpretive Data Reference Interval Normal ?>/= [...] was last reviewed 2020 Blood specimen (specimen) 04/10/2021 7:14 AM CDT 04/10/2021 7:31 AM CDT us Emerson Allen MD LAB BLOOD ORDERABLES Final Result [facility] ([place]) 1 [facility] Department [place] [address] * Differential, auto (04/10/2021 7:14 AM CDT) Neutrophil abs 5.9 1.7 - 6.5 K/cumm [facility] ([place]) Imm gran abs 0.0 0.0 - 0.1 K/cumm [facility] ([place]) Lymphocyte abs 3.3 0.8 - 3.3 K/cumm [facility] ([place]) Monocyte abs 0.8 0.2 - 0.8 K/cumm [facility] ([place]) Eosinophil abs 0.1 0.0 - 0.5 K/cumm [facility] ([place]) Basophil abs 0.0 0.0 - 0.1 K/cumm [facility] ([place]) Neutrophil pct 57.6 % [facility] ([place]) Comment: Interpretive [...] revised on 2018. Lymphocyte pct 32.6 % [facility] ([place]) Comment: Interpretive Data Percent cell count reference ranges are not reported, since discordance with absolute values may lead to misinterpretation of CBC data. Current Interpretive Data was last revised on 2018. Monocyte pct 7.7 % [facility] ([place]) Comment: Interpretive Data Percent cell count reference ranges are not reported, since discordance with absolute values may lead to misinterpretation of CBC data. Current Interpretive Data was last revised on 2018. Eosinophil pct 1.3 % [facility] ([place]) Comment: Interpretive Data Percent cell count reference ranges are not reported, since discordance with absolute values may lead to misinterpretation of CBC data. Current Interpretive Data was last revised on 2018. Basophil pct 0.4 % [facility] ([place]) Comment: Interpretive Data Percent cell count reference ranges are not reported, since discordance with absolute values may lead to misinterpretation of CBC data. Current Interpretive Data was last revised on 2018. Blood specimen (specimen) 04/10/2021 7:14 AM CDT 04/10/2021 7:30 AM CDT us Emerson Allen MD LAB BLOOD ORDERABLES Final Result [facility] ([place]) 1 [facility] Department [place] [address] * (ABNORMAL) Lipid panel (04/10/2021 7:14 AM CDT) Cholesterol 157 30 - 199 mg/dL [facility] ([place]) [...] Data was last revised on 2018. Triglycerides 196(H) <=149 mg/dL [facility] ([place]) Comment: Interpretive [...] on 2018. HDL 39(L) >=40 mg/dL [facility] ([place]) Comment: Interpretive Data [...] 2018. LDL, calculated 79 <=129 mg/dL [facility] ([place]) Comment: Interpretive [...] was last revised on 2018. Non-HDL Cholesterol 118 mg/dL [facility] ([place]) Comment: Interpretive Data [...] Chol/HDL ratio 4 [facility] ([place]) Blood specimen (specimen) 04/10/2021 7:14 AM CDT 04/10/2021 7:31 AM CDT us Emerson Allen MD LAB BLOOD ORDERABLES Final Result [facility] ([place]) 1 [facility] Department [place] [address] * (ABNORMAL) Comprehensive metabolic panel (04/10/2021 7:14 AM CDT) Sodium 141 135 - 145 mmol/L [facility] ([place]) Potassium, pl 4.1 3.3 - 4.9 mmol/L [facility] ([place]) Chloride 106 97 - 110 mmol/L [facility] ([place]) CO2 25 22 - 32 mmol/L [facility] ([place]) Anion gap 9 2 - 15 mmol/L [facility] ([place]) BUN 14 8 - 25 mg/dL [facility] ([place]) Creatinine 0.72 0.60 - 1.10 mg/dL [facility] ([place]) Glucose 99 70 - 199 mg/dL [facility] ([place]) [...] interpretive data was last revised 2017. Calcium 8.8 8.5 - 10.3 mg/dL [facility] ([place]) Bilirubin, total 0.3 0.1 - 1.2 mg/dL [facility] ([place]) Protein, pl 6.4(L) 6.5 - 8.5 g/dL [facility] ([place]) Albumin 4.1 3.5 - 5.0 g/dL [facility] ([place]) Alk phos 93 40 - 130 Units/L [facility]) ALT 24 7 - 45 Units/L [facility]) AST 20 10 - 45 Units/L [facility] ([place]) Blood specimen (specimen) 04/10/2021 7:14 AM CDT 04/10/2021 7:31 AM CDT Emerson Allen MD LAB BLOOD ORDERABLES Final Result [facility] ([place]) 1 [facility] [place] [address] * (ABNORMAL) CBC with auto differential (04/10/2021 7:14 AM CDT) WBC 10.2(H) 3.8 - 9.9 K/cumm [facility] ([place]) Hgb 15.2 11.9 - 15.5 g/dL [facility] ([place]) Hct 45.3 35.6 - 45.5 % [facility] ([place]) Plt 211 150 - 400 K/cumm [facility] ([place]) MPV 10.4 9.1 - 12.3 fL [facility] ([place]) RBC 4.95 3.90 - 5.20 M/cumm [facility] ([place]) MCV 91.5 81.3 - 96.4 fL [facility] ([place]) MCH 30.7 27.1 - 33.3 pg [facility] ([place]) MCHC 33.6 32.3 - 35.7 g/dL [facility] ([place]) RDW CV 13.2 11.1 - 14.9 % [facility] ([place]) RDW SD 44.2 35.7 - 48.1 fL [facility] ([place]) NRBC abs 0.00 0.00 - 0.01 K/cumm [facility] ([place]) Blood specimen (specimen) 04/10/2021 7:14 AM CDT 04/10/2021 7:30 AM CDT us Emerson Allen MD LAB BLOOD ORDERABLES Final Result [facility] ([place]) [address] Department [place] [address] documented in this encounter Visit Diagnoses Diagnosis Mixed hyperlipidemia Encounter for screening colonoscopy documented in this encounter Care Teams Ingot Buggy Operator Relationship Specialty Start Date End Date Emerson Allen MD PCP - General 06/03/17 07/05/21 Phoenix Loredo MD Consulting Physician Cardiology 01/04/19 documented as of this encounter
--- OUTSIDE RECORDS SUMMARY | 2024-10-13 04:09 | XMS_ITS | Encounter Summary ---
Author Organization [facility] Address [address] [place] [address] Care Team Providers Care Turn Down Attendant Name Role Phone Emerson Allen MD Primary Care Provider [phone] Phoenix Loredo MD Unavailable [phone] Reason for Visit * Reason Comments Flu Vaccine Encounter Details Date Type Department Care Team (Latest Contact Info) Description 07/03/2020 9:00 AM CDT Clinical Support [facility] [address] [place] [phone] Need for vaccination (Primary Dx) Social History Tobacco Use Types [...] on file 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 Gender Identity Not on file Sexual Orientation Not on file documented as of this encounter Plan of Treatment Upcoming Encounters Date Type Department Care Team (Late st Contact Info) Description 02/04/2025 9:30 AM CDT Hospital Encounter [facility] 1 [place] [address] Vic Gaines, DO 3 [facility] [place] [address] [place] [address] 02/04/2025 9:30 AM CDT - 02/04/2025 10:00 AM CDT Surgery [facility] 1 [place] [address] Vic Gaines, DO 3 [facility] [place] [address] [place] [address] COLONOSCOPY Scheduled Procedures Name Priority Associated Diagnoses Date/Ti me COLONOSCOPY Encounter for screening colonoscopy 02/04/2025 9:30 AM CDT documented as of this encounter Visit Diagnoses Diagnosis Need for vaccination- Primary Need for prophylactic vaccination and inoculation against unspecified single disease Encounter for screening colonoscopy documented in this encounter Orders Immunization/Injection Count Last Ordered Date First Ordered Date FLU VACCINE QUAD PF 6M+ IM - FLUARIX / FLULAVAL / AFLURIA 1 07/03/2020 documented in this encounter Care Teams Turn Down Attendant Relationship Specialty Start Date End Date Emerson Allen MD PCP - General 06/03/17 07/05/21 Phoenix Loredo MD Consulting Physician Cardiology 01/04/19 documented as of this encounter
--- OUTSIDE RECORDS SUMMARY | 2024-10-13 04:09 | XMS_ITS | Encounter Summary ---
Author Organization [facility] Medical [facility] Address [address] [facility] [address] [place] [address] Care Team Providers Care Finance Assistant Name Role Phone Emerson Allen MD Primary Care Provider [phone] Phoenix Loredo MD Unavailable [phone] Aylin Lnudy MD Unavailable [phone] Encounter Details Date Type Department Care Team (Late st Contact Info) Description 04/30/2021 Telephone [employer] Biomedical Engineering Technician [address] [facility] [address] [place] [address] Chauncey Hernandez MA Social History [...] on file 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 Order in Epic---scheduling phone number left on machine for scheduling ... Yolie SCHAFER * Telephone Encounter - Phoenix Loredo MD - 04/30/2021 12:31 PM CDT Order repeat ABE of left leg as well as duplex of left leg (r/o DVT) * Telephone Encounter - Chauncey Hernandez MA - 04/30/2021 8:54 AM CDT Patient called stating she was having a squeezing feeling in her left leg like having a band around it not hot feeling or cold feeling, just the pressure feeling. She is concerned about it being a blood clot. Her AIF is scheduled for May 13, 2021. Please advise. documented in this encounter Plan of Treatment Upcoming Encounters Date Type Department Care Team (Late st Contact Info) Description 02/04/2025 9:30 AM CDT Hospital Encounter [address] [address] Vic Gaines, DO 3 [facility] [place] [address] [place] [id number] 02/04/2025 9:30 AM CDT - 02/04/2025 10:00 AM CDT Surgery [address] [address] Vic Gaines, DO 3 [facility] [place] [address] [place] [address] COLONOSCOPY Scheduled Procedures Name Priority Associated Diagnoses Date/Ti me COLONOSCOPY Encounter for screening colonoscopy 02/04/2025 9:30 AM CDT documented as of this encounter Visit Diagnoses Diagnosis PVD (peripheral vascular disease) (HCC)- Primary Unspecified peripheral vascular disease Pain of lower extremity, unspecified laterality Encounter for screening colonoscopy documented in this encounter Care Teams Finance Assistant Relationship Specialty Start Date End Date Emerson Allen MD PCP - General 06/03/17 07/05/21 Phoenix Loredo MD Consulting Physician Cardiology 01/04/19 [place] [address] [place] [address] Grain Mill Products Inspector Obstetrics and Gynecology 04/19/21 documented as of this encounter
--- OUTSIDE RECORDS SUMMARY | 2024-10-13 04:09 | XMS_ITS | Encounter Summary ---
Author Organization [facility] Medical [facility] Address [address] [facility] [address] [place] [address] Care Team Providers Care Meter Reading Clerk Name Role Phone Phoenix Loredo MD Unavailable [phone] Aylin Lundy MD Unavailable [phone] Emerson Allen MD Primary Care Provider [phone] Reason for Visit * Reason Comments Follow-up Encounter Details Date Type Department Care Team (Late st Contact Info) Description 08/31/2021 9:00 AM INSTALLER TECHNICIAN Office Visit [facility] Pulmonology at [address] [place] [address] Ho Jarrett MD [address] [place] [address] [address] [place] [address] Centrilobular emphysema (CMS/HCC) (HCC) (Primary Dx); Smoker; Chronic cough Social History Tobacco Use Types Packs/Day [...] file Legal Sex Female 8:44 AM INSTALLER TECHNICIAN Gender Identity Not on file Sexual Orientation Not on file documented as of this encounter Last Filed Vital Signs Vital Sign Reading Time Taken Comments Blood Pressure 142/80 08/31/2021 8:53 AM INSTALLER TECHNICIAN Pulse 87 08/31/2021 8:53 AM INSTALLER TECHNICIAN Temperature 36.4 ??C (97.6 ??F) 08/31/2021 8:53 AM CS T Respiratory Rate 18 08/31/2021 8:53 AM INSTALLER TECHNICIAN Oxygen Saturation 96% 08/31/2021 8:53 AM INSTALLER TECHNICIAN Inhaled Oxygen Concentration - - Weight 74.2 kg (163 lb 9.6 oz) 08/31/2021 8:53 A M INSTALLER TECHNICIAN Height 154.9 cm (5' 1 ) 08/31/2021 8:53 AM INSTALLER TECHNICIAN Body Mass Index 30.91 08/31/2021 8:53 AM INSTALLER TECHNICIAN documented in this encounter Ordered Prescriptions Prescription Sig Dispense Quantity Refills Last Filled Start Date End Date glycopyrrolate-fo rmoteroL (BEVESPI AEROSPHERE) 9-4.8 mcg inhaler Inhale 2 puffs 2 (two) times a day 1080 mcg of glycopyrrolate 3 08/31/2021 2 nicotine (NICODERM CQ) [address] 1 patch on the skin daily 30 patch 1 08/31/2021 2 documented in this encounter Progress Notes * Ho Jarrett MD - 08/31/2021 9:00 AM CST Images from the original note were not included. PULMONARY CLINIC NOTE Visit Date: 08/31/2021 Chief Complaint: Presents today for ??? Shortness of breath HPI: Mirtha Cherry is a 56 y.o. female w/ PMH of bilateral mastectomy in 2018 for abnormal mammogram/MRI and found to have precancerous lesions (no radiation), peripheral arterial disease status post stenting who presents on 08/31/2021 for evaluation of dyspnea on exertion. She was referred by her card table attendant. Diagnosed with asthma 20 years ago. She has not been on any regular inhaler therapy. She has had relatively stable dyspnea but reports it may be increased over the past several years. She reports shortness of breath and high humidity and gets bronchitis about once per year. But also reports triggerof cold dry air Interval History: She underwent EGD with dilation. Improved cough, swallowing and sleep. Still smoking. Had success with patches in the past. Still with intermittent dyspnea. Did not start anoro and not using albuterol. Exposure History: No dust, mold, pets, animals, heavy metals, asbestos Past Medical History: Past Medical History: Diagnosis Date ??? Asthma Asthma; Comments: DNT 07/10/2014 - ??? Dysphagia ??? Gastroesophageal reflux disease GERD ??? 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 HX OTHER MEDICAL 2010 capal [...] systems is negative. OBJECTIVE: Physical Exam: Vitals: 08/31/21 0853 BP: 142/80 Pulse: 87 Resp: 18 Temp: 36.4 ??C (97.6 ??F) SpO2: 96% Weight: 74.2 kg (163 lb 9.6 oz) Height: 154.9 cm (5' [...] imaging to review Pulmonary Functions Testing Results: 08/16/2021: Pre bronchodilator FEV1 79% predicted, FVC 84% predicted, FEV1/FVC 0.73, TLC 118% predicted, RV 168% predicted, DLCO 51% predicted ASSESSMENT AND PLAN 1. Centrilobular emphysema (CMS/HCC) (HCC) With air trapping and diffusion impairment I believe the patient has evidence of COPD - we will screen her for alpha-1 antitrypsin deficiency - she has brought in a list of medications that are covered by her insurance and we will switch herinhaler therapy to Bevespi 2 puffs twice daily - she will continue using albuterol as needed - Nfjza-6-fuohsvlmgbx phenotype; Future 2. Smoker She is ready to quit - will start nicotine replacement therapy as she has had success with this in the past - start with 21 mg patch based on her daily smoking - we will also begin a on cancer screening regimen, we extensively discussed the likelihood of incidental findings and the need for further testing/procedures - she voiced understanding and would like to proceed 3. Chronic cough This has improved after her dilation - it may further improve with treatment of her underlying COPD - continue therapy as above Ho Jarrett MD There may be syntax/grammatical errors in this note due to the use of voice recognition software. ALLER TECHNICIAN documented in this encounter Plan of Treatment Upcoming Encounters Date Type Department Care Team (Late st Contact Info) Description 02/04/2025 9:30 AM CDT Hospital Encounter [address] [address] Vic Gaines, DO 3 [facility] [place] [address] [place] [address] 02/04/2025 9:30 AM CDT - 02/04/2025 10:00 AM CDT Surgery [address] [address] Vic Gaines, DO 3 [facility] [address] [place] [address] COLONOSCOPY Scheduled Procedures Name Priority Associated Diagnoses Date/Ti me COLONOSCOPY Encounter for screening colonoscopy 02/04/2025 9:30 AM CDT documented as of this encounter Results * Cmzld-4-cswojdcqcjp phenotype (09/11/2021 8:23 AM INSTALLER TECHNICIAN) [facility] alpha-1 antitrypsin 171 100 - 190 mg/dL [facility] ([place]) Comment: ADDITIONAL INFORMATION Method: Nephelometry Test Performed by: [facility] [address] [place] [address] Professor Of Forestry: Seun Urbano M.D. Ph.D.; CLIA# [id number] alpha-1 antitrypsin phenotype MM bands [facility] ([place]) Comment: A single M isoform is detected. In the context of a normal wqgdr-1-wqskbpwkzfw concentration, this is consistent with an MM phenotype. ADDITIONAL INFORMATION Method: Isoelectric Focusing, This assay identifies the phenotype of the circulating awcoc-5-usigkyjijil (A1A) protein. If the patient is on replacement therapy or has been recently transfused, the phenotype will detect patient and replacement or transfused plasma A1A protein. This test also cannot detect a null allele which could be responsible for an A1A deficiency. Blood 09/11/2021 8:23 AM INSTALLER TECHNICIAN 09/11/2021 9:21 AM INSTALLER TECHNICIAN us Ho Jarrett MD LAB BLOOD ORDERABLES Final Resul t [facility] ([place]) 1 [facility] Department [place] [address] documented in this encounter Visit Diagnoses Diagnosis Centrilobular emphysema (HCC)- Primary Smoker Tobacco use disorder Chronic cough Cough Encounter for screening colonoscopy documented in this encounter Discontinued Medications Medication Sig Discontinue Reason Start Date End Da te umeclidinium-vilanteroL (ANORO ELLIPTA) 62.5-25 mcg/actuation blister with device Inhale 1 puff daily Alternate therapy 08/17/2021 08/31/2021 documented as of this encounter Care Teams Meter Reading Clerk Relationship Specialty [place] [address] [place] [address] PCP - General 08/02/21 09/16/21 Phoenix Loredo MD Consulting Physician Cardiology 01/04/19 [place] [address] [place] [address] Coiled Coil Inspector Obstetrics and Gynecology 04/19/21 documented as of this encounter
--- OUTSIDE RECORDS SUMMARY | 2024-10-13 04:09 | XMS_ITS | Encounter Summary ---
Author Organization [facility] Medical Group Address [address] [place] [address] Care Team Providers Care Foot Tender Name Role Phone Phoenix Loredo MD Unavailable [phone] Aylin Lundy MD Unavailable [phone] Emerson Allen MD Primary Care Provider [phone] Encounter Details Date Type Department Care Team (Late st Contact Info) Description 08/11/2021 Orders Only [facility] Testing Site - [facility]. Building [address] [place] [address] [address] [place] [address] Ho Mejias MD [address] [place] [id number] Pre-operative laboratory examination (Primary Dx) Social History Tobacco Use Types [...] file Legal Sex Female 8:44 AM SUPERVISOR COVERING AND LINING Gender Identity Not on file Sexual Orientation Not on file documented as of this encounter Progress Notes * Nadege Kamara - 08/11/2021 4:21 PM CDT Priority: Routine Status: ?? Class: Internal Referral Ordering User: Urmila Nye LPN Auth Provider: HO MEJIAS Provider: Urmila Nye LPN Diagnosis: ?? [facility] ?? Comment: ?? Order Specific Questions Question Answer Comment Testing types: Pre-procedure ?? Date of Px/chemo/treatment/placement/transfer 08/16/2021 ?? Testing site patient will be sent to: [facility] [place] ?? Date testing requested: 08/13/2021 ?? Testing: COVID-19 RNA ?? Does the patient currently work in a healthcare facility with direct patient contact? Unknown ?? Is the patient a resident of a congregate care or living setting? Unknown ?? Is the patient ? No ?? Please select the performing region: [facility] documented in this encounter Plan of Treatment Upcoming Encounters Date Type Department Care Team (Late st Contact Info) Description 02/04/2025 9:30 AM CDT Hospital Encounter [address] [address] Vic Gaines, DO [address] [facility] [address] [place] [address] 02/04/2025 9:30 AM CDT - 02/04/2025 10:00 AM CDT Surgery [address] [address] Vic Gaines, DO [address] [place] [address] COLONOSCOPY Scheduled Procedures Name Priority Associated Diagnoses Date/Ti me COLONOSCOPY Encounter for screening colonoscopy 02/04/2025 9:30 AM CDT documented as of this encounter Results * COVID-19 Coronavirus RNA Nasopharyngeal (08/13/2021 3:38 PM CDT) COVID-19 RNA Not Detected [facility] ([facility]) Comment: Interpretive Data Synonyms for this test include: PCR and NAAT . ??Testing performed by the [facility]. The 2019-Novel Coronavirus [...] on November 12, 2020. Testing performed by: [address] [address] First COVID-19 test? No [facility] ([facility]) Comment:Testing performed by : [address], [address] Employeed in healthcare? Unknown [facility] ([facility]) Comment:Testing performed by : [address], [address] status? No [facility] ([facility]) Comment:Testing performed by : [facility], [address] [place] [address], [address] Group care resident? No [facility] ([facility]) Comment:Testing performed by : [address], [address] Hospitalized? Unknown [facility] ([facility]) Comment:Testing performed by : [address], [address] Is patient in ICU? Unknown [facility] ([facility]) Comment:Testing performed by : [facility], [address] [place]., [address] Symptomatic as defined by CDC? No [facility] ([facility]) Comment:Testing performed by : [facility], [address] [place]., [address] Nasopharyngeal 08/13/2021 3: 38 PM CDT 08/14/2021 3:20 AM CDT Narrative [facility] ([facility]) - 08/14/2021 8:55 AM CDT What is the reason for testing?->Screening prior to scheduled procedure or surgery (batch) Ho Mejias MD LAB MICROBIOLOGY - GENERAL ORDER JAGDEEP Final Result [facility] ([place]) [address] [facility] Department [place] [address] documented in this encounter Visit Diagnoses Diagnosis Pre-operative laboratory examination- Primary Pre-procedural laboratory examination Pre-operative laboratory examination Pre-procedural laboratory examination Encounter for screening colonoscopy documented in this encounter Care Teams Foot Tender Relationship Specialty Start Date [place] [id number] [place] [address] PCP - General 08/02/21 09/16/21 Phoenix Loredo MD Consulting Physician Cardiology 01/04/19 Aylin Lundy [place] [id number] [place] [address] Ticket Counter Obstetrics and Gynecology 04/19/21 documented as of this encounter
--- OUTSIDE RECORDS SUMMARY | 2024-10-13 04:09 | XMS_ITS | Encounter Summary ---
Author Organization [facility] Medical Group Address [address] [place] [address] Care Team Providers Care Cattle Inspector Name Role Phone Phoenix Loredo MD Unavailable [phone] Aylin Lundy MD Unavailable Celine Solano NP Primary Care Provider Encounter Details Date Type Department Care Team (Late st Contact Info) Description 07/20/2021 Orders Only [facility] [address] [place] [address] Celine Solano NP [address] [place] [address] Mixed hyperlipidemia (Primary Dx) Social History Tobacco Use Types [...] on file Legal Sex Female 8:44 AM CORK INSULATION SETTER Gender Identity Not on file Sexual Orientation Not on file documented as of this encounter Plan of Treatment Upcoming Encounters Date Type Department Care Team (Late st Contact Info) Description 02/04/2025 9:30 AM CDT Hospital Encounter [address] [address] Vic Gaines, DO [address] [place] [address] 02/04/2025 9:30 AM CDT - 02/04/2025 10:00 AM CDT Surgery [address] [address] Vic Gaines, DO 3 [address] [facility] [address] [place] [address] COLONOSCOPY Scheduled Procedures Name Priority Associated Diagnoses Date/Ti me COLONOSCOPY Encounter for screening colonoscopy 02/04/2025 9:30 AM CDT documented as of this encounter Results * (ABNORMAL) Lipid panel (10/15/2021 8:13 AM CORK INSULATION SETTER) Cholesterol 155 30 - 199 mg/dL [facility] ([place]) Comment: Interpretive Data Ages < or = [...] on 2018. Triglycerides 170(H) <=149 mg/dL [facility] ([facility]) Comment: Interpretive Data [...] revised on 2018. Non-HDL Cholesterol 119 mg/dL [facility] ([facility]) Comment: Interpretive Data [...] [facility]EE[facility]K [facility] (ARTEMIO) Blood 10/15/2021 8:13 AM CORK INSULATION SETTER 10/15/2021 8:56 AM CORK INSULATION SETTER us Celine Solano FUSING MACHINE TENDER LAB BLOOD ORDERABLES Final Resul t [facility] ([place]) 1 [facility] Department of Laboratories [place], [place] [id number] * Comprehensive metabolic panel (10/15/2021 8:13 AM CORK INSULATION SETTER) Sodium 137 135 - 145 mmol/L [facility] ([facility]) Potassium, pl 4.7 3.3 - 4.9 [...] - 45 Units/L [facility] ([facility]) Blood 10/15/2021 8:13 AM CORK INSULATION SETTER 10/15/2021 8:56 AM CORK INSULATION SETTER us Celine Solano FUSING MACHINE TENDER LAB BLOOD ORDERABLES Final Resul t [facility] ([facility]) 1 [facility] Department [place] [address] * (ABNORMAL) CBC with auto differential (10/15/2021 8:13 AM CORK INSULATION SETTER) WBC 8.5 3.8 - 9.9 K/cumm [facility] [...] [facility] ([facility]) Blood 10/15/2021 8:13 AM CORK INSULATION SETTER 10/15/2021 8:56 AM CORK INSULATION SETTER Celine Solano FUSING MACHINE TENDER LAB BLOOD ORDERABLES Final Resul t [facility] ([facility]) 1 [facility] Department [place] [address] documented in this encounter Visit Diagnoses Diagnosis Mixed hyperlipidemia- Primary Encounter for screening colonoscopy documented in this encounter Care Teams Cattle Inspector Relationship Specialty [place] [address] [place] [address] PCP - General Family Medicine 07/06/21 07/22/21 Phoenix Loredo MD Consulting Physician Cardiology 01/04/19 [place] [address] [place] [address] Pulper Operator Obstetrics and Gynecology 04/19/21 documented as of this encounter
--- OUTSIDE RECORDS SUMMARY | 2024-10-13 04:10 | XMS_ITS | Encounter Summary ---
Author Organization [facility] Facility Care Team Providers Care Biometrics Experimentalist Name Role Phone Emerson Allen MD Primary Care Provider [phone] Phoenix Loredo MD Unavailable [phone] Encounter Details Date Type Department Care Team (Latest Contact Info) Description 12/30/2019 Travel Social History Tobacco Use Types Packs/Day Years Used Date Smoking Tobacco: Every Day Cigarettes Smokeless Tobacco: Never Comments:Smoking History Pac ks/day: 0.5 Packs Alcohol Use Standard Drinks/Week Comments No 0 (1 standard drink = 0.6 oz pur e alcohol) PHQ-2 Answer Date Recorded PHQ-2 Score 0 05/29/2019 Comments No Sex and Gender Information Value Date Recorded Sex Assigned at Not on file Legal Sex Female 8:44 AM RERECORDING MIXER Gender Identity Not on file Sexual Orientation Not on file COVID-19 Exposure Response Date Recorded In the last month, have you been in contact with someone who was confirmed or suspected to have Coronavirus / COVID-19? No / Unsure 12/30/2019 8:07 AM CDT documented as of this encounter Plan of Treatment Upcoming Encounters Date Type Department Care Team (Late st Contact Info) Description 02/04/2025 9:30 AM CDT Hospital Encounter [facility] 1 [place] [address] Vic Gaines, DO [address] [address] 02/04/2025 9:30 AM CDT - 02/04/2025 10:00 AM CDT Surgery [facility] [address] [place] [address] Vic Gaines, DO [address] [address] COLONOSCOPY Scheduled Procedures Name Priority Associated Diagnoses Date/Ti me COLONOSCOPY Encounter for screening colonoscopy 02/04/2025 9:30 AM CDT documented as of this encounter Visit Diagnoses Not on filedocumented in this encounter Care Teams Biometrics Experimentalist Relationship Specialty Start Date End Date Emerson Allen MD PCP - General 06/03/17 07/05/21 Phoenix Loredo MD Consulting Physician Cardiology 01/04/19 documented as of this encounter
--- OUTSIDE RECORDS SUMMARY | 2024-10-13 04:10 | XMS_ITS | Encounter Summary ---
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 Gender Identity Not on file Sexual Orientation Not on file documented as of this encounter Discharge Disposition Disposition Code Departure Means Destination Discharge to home or self care documented in this encounter Plan of Treatment Upcoming Encounters Date Type Department Care Team (Late st Contact Info) Description 02/04/2025 9:30 AM CDT Hospital Encounter [facility] [address] [place] [address] Vic Gaines, DO [address] [place] [address] 02/04/2025 9:30 AM CDT - 02/04/2025 10:00 AM CDT Surgery [facility] [address] [place] [address] Vic Gaines, DO [address] [place] [address] COLONOSCOPY Scheduled Procedures Name Priority Associated Diagnoses Date/Ti me COLONOSCOPY Encounter for screening colonoscopy 02/04/2025 9:30 AM CDT documented as of this encounter Procedures Procedure Name Priority Date/Time Associated Diagnosis Comments EGFR Routine 06/13/2020 7:27 AM CDT Multiple-type hyperlipidemia DIFFERENTIAL AUTO Routine 06/13/2020 7:2 7 AM CDT Multiple-type hyperlipidemia CBC WITH AUTO DIFFERENTIAL Routine 06/13/2020 7:27 AM CDT Multiple-type hyperlipidemia VITAMIN D 25 HYDROXY Routine 06/13/2020 7:27 AM CDT Obesity (BMI 30-39.9) LIPID PANEL Routine 06/13/2020 7:27 AM CDT Multiple-type hyperlipidemia COMPREHENSIVE METABOLIC PANEL Routine 06/13/2020 7:27 AM CDT Multiple-type hyperlipidemia documented in this encounter Results * eGFR (06/13/2020 7:27 AM CDT) eGFR 71 mL/min/1.7 3 m2 [facility] ([facility]OLDEN) Comment: Interpretive Data Reference Interval Normal ?>/= 90 mL/min/1.73m2 Mildly decreased* ? 60 - 89 mL/min/1.73m2 Mildly to moderately decreased ?45 - 59 mL/min/1.73m2 Moderately to severely decreased ??30 - 44 mL/min/1.73m2 Severely decreased ?15 - 29 mL/min/1.73m2 Kidney Failure ?< 15 ??mL/min/1.73m2 *Relative to young adult level If -Mosotho multiply value by 1.16. Estimated glomerular filtration rate is determined by [...] 70. Current interpretive data was last reviewed 2016. Blood specimen (specimen) 06/13/2020 7:27 AM CDT 06/13/2020 8:26 AM CDT us Emerson Allen MD LAB BLOOD ORDERABLES Final Result [facility] ([facility]) 1 [facility] [place] [address] * Differential, auto (06/13/2020 7:27 AM CDT) Neutrophil abs 5.1 1.7 - 6.5 K/cumm [facility] ([facility]) Imm gran abs 0.0 0.0 - 0.1 K/cumm [facility] ([facility]) Lymphocyte abs 3.1 0.8 - 3.3 K/cumm [facility] ([facility]) Monocyte abs 0.7 0.2 - 0.8 K/cumm [facility] ([facility]) Eosinophil abs 0.2 0.0 - 0.5 K/cumm [facility] ([facility]) Basophil abs 0.0 0.0 - 0.1 K/cumm [facility] ([facility]) Neutrophil pct 55.4 % [facility] ([facility]) Comment: Interpretive Data Percent cell count reference ranges are not reported, since discordance with absolute values may lead to misinterpretation of CBC data. Current Interpretive Data was last revised on 2018. Imm gran pct 0.2 % [facility] ([facility]) Comment: Interpretive Data Percent cell count reference ranges are not reported, since discordance with absolute values may lead to misinterpretation of CBC data. Current Interpretive Data was last revised on 2018. Lymphocyte pct 34.3 % [facility] ([facility]) Comment: Interpretive Data Percent cell count reference ranges are not reported, since discordance with absolute values may lead to misinterpretation of CBC data. Current Interpretive Data was last revised on 2018. Monocyte pct 7.7 % [facility] ([facility]) Comment: Interpretive Data Percent cell count reference ranges are not reported, since discordance with absolute values may lead to misinterpretation of CBC data. Current Interpretive Data was last revised on 2018. Eosinophil pct 2.0 % [facility] ([facility]) Comment: Interpretive Data Percent cell count reference ranges are not reported, since discordance with absolute values may lead to misinterpretation of CBC data. Current Interpretive Data was last revised on 2018. Basophil pct 0.4 % [facility] ([facility]) Comment: Interpretive Data Percent cell count reference ranges are not reported, since discordance with absolute values may lead to misinterpretation of CBC data. Current Interpretive Data was last revised on 2018. Blood specimen (specimen) 06/13/2020 7:27 AM CDT 06/13/2020 8:26 AM CDT us Emerson Allen MD LAB BLOOD ORDERABLES Final Result [facility] ([facility]) 1 [facility] Department [place] [address] * CBC with auto differential (06/13/2020 7:27 AM CDT) WBC 9.2 3.8 - 9.9 K/cumm [facility] ([facility]) Hgb 14.6 11.9 - 15.5 g/dL [facility] ([facility]) Hct 43.9 35.6 - 45.5 % [facility] ([facility]) Plt 230 150 - 400 K/cumm [facility] ([facility]) MPV 10.8 9.1 - 12.3 fL [facility] ([facility]) RBC 4.75 3.90 - 5.20 M/cumm [facility] ([facility]) MCV 92.4 81.3 - 96.4 fL [facility] ([facility]) MCH 30.7 27.1 - 33.3 pg [facility] ([facility]) MCHC 33.3 32.3 - 35.7 g/dL [facility] ([facility]) RDW CV 12.9 11.1 - 14.9 % [facility] ([facility]) RDW SD 43.8 35.7 - 48.1 fL [facility] ([facility]) NRBC abs 0.00 0.00 - 0.01 K/cumm [facility] ([facility]) Blood specimen (specimen) 06/13/2020 7:27 AM CDT 06/13/2020 8:26 AM CDT Emerson Allen MD LAB BLOOD ORDERABLES Final Result [facility] ([facility]) 1 [facility] Department [place] [address] * Comprehensive metabolic panel (06/13/2020 7:27 AM CDT) Sodium 140 135 - 145 mmol/L [facility] ([facility]) Potassium, pl 4.2 3.3 - 4.9 mmol/L [facility] ([facility]) Chloride 104 97 - 110 mmol/L [facility] ([facility]) CO2 26 22 - 32 mmol/L [facility] ([facility]) Anion gap 10 2 - 15 mmol/L [facility] ([facility]) BUN 15 8 - 25 mg/dL [facility] ([facility]) Creatinine 0.91 0.60 - 1.10 mg/dL [facility] ([facility]) Glucose 98 70 - 199 mg/dL [facility] ([facility]) [...] interpretive data was last revised 2017. Calcium 9.5 8.5 - 10.3 mg/dL [facility] ([facility]) Bilirubin, total <0.2 0.1 - 1.2 mg/dL [facility] ([facility]) Protein, pl 6.5 6.5 - 8.5 g/dL [facility] ([facility]) Albumin 4.3 3.5 - 5.0 g/dL [facility] ([facility]) Alk phos 92 40 - 130 Units/L [facility] ([facility]) ALT 20 7 - 45 Units/L [facility] ([facility]) AST 20 10 - 45 Units/L [facility] ([facility]) Comment:Slightly Hemolyzed S pecimen Blood specimen (specimen) 06/13/2020 7:27 AM CDT 06/13/2020 8:26 AM CDT us Emerson Allen MD LAB BLOOD ORDERABLES Final Result Performing Organization Address City/State/[facility] Phone Number [facility] ([facility]) 1 [facility] [place] [address] * Lipid panel (06/13/2020 7:27 AM CDT) Cholesterol 144 30 - 199 mg/dL [facility] ([facility]) Comment: [...] Data was last revised on 2018. Triglycerides 120 <=149 mg/dL [facility]) Comment: Interpretive Data [...] Data was last revised on 2018. HDL 40 >=40 mg/dL [facility]) Comment: Interpretive Data [...] was last revised on 2018. LDL, calculated 80 <=129 mg/dL [facility]) Comment: Interpretive Data [...] was last revised on 2018. Non-HDL Cholesterol 104 mg/dL [facility] (ARTEMIO) Comment: Interpretive Data [...] 4 DEEPAK [facility] (ARTEMIO) Blood specimen (specimen) 06/13/2020 7:27 AM CDT 06/13/2020 8:26 AM CDT Emerson Allen MD LAB BLOOD ORDERABLES Final Result [facility] ([place]) 1 [facility] [place] [address] * Vitamin D 25 hydroxy (06/13/2020 7:27 AM CDT) Vitamin D 25-OH 32 30 - 80 ng/mL [facility] (ARTEMIO) Blood specimen (specimen) 06/13/2020 7:27 AM CDT 06/13/2020 8:26 AM CDT us Emerson Allen MD LAB BLOOD ORDERABLES Final Result Performing Organization Address City/[facility] Co de Phone Number [facility] ([place]OLDEN) 1 [facility] [employer] [place] [address] documented in this encounter Visit Diagnoses Diagnosis Obesity (BMI 30-39.9) Multiple-type hyperlipidemia Other and unspecified hyperlipidemia Encounter for screening colonoscopy documented in this encounter Care Teams Slot Attendant Relationship Specialty Start Date End Date Emerson Allen MD PCP - General 06/03/17 07/05/21 Phoenix Loredo MD Consulting Physician Cardiology 01/04/19 documented as of this encounter
--- OUTSIDE RECORDS SUMMARY | 2024-10-13 04:10 | XMS_ITS | Encounter Summary ---
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 Gender Identity Not on file Sexual Orientation Not on file documented as of this encounter Plan of Treatment Upcoming Encounters Date Type Department Care Team (Late st Contact Info) Description 02/04/2025 9:30 AM CDT Hospital Encounter [facility] [address] [place] [address] Vic Gaines, DO [address] [id number] 02/04/2025 9:30 AM CDT - 02/04/2025 10:00 AM CDT Surgery [facility] [address] [place] [address] Vic Gaines, DO 3 [facility] [place] [address] COLONOSCOPY Scheduled Procedures Name Priority Associated Diagnoses Date/Ti me COLONOSCOPY Encounter for screening colonoscopy 02/04/2025 9:30 AM CDT documented as of this encounter Procedures Procedure Name Priority Date/Time Associated Diagnosis Comments EGFR Routine 12/21/2019 8:15 AM CDT Dyslipidemia DIFFERENTIAL AUTO Routine 12/21/2019 8:1 5 AM CDT Gastroesophageal reflux disease without esophagitis CBC WITH AUTO DIFFERENTIAL Routine 12/21/2019 8:15 AM CDT Gastroesophageal reflux disease without esophagitis LIPID PANEL Routine 12/21/2019 8:15 AM CDT Dyslipidemia COMPREHENSIVE METABOLIC PANEL Routine 12/21/2019 8:15 AM CDT Dyslipidemia documented in this encounter Results * eGFR (12/21/2019 8:15 AM CDT) eGFR 76 mL/min/1.7 3 m2 [facility] ([facility]) Comment: Interpretive Data Reference Interval Normal ?>/= 90 mL/min/1.73m2 Mildly decreased* ? 60 - 89 mL/min/1.73m2 Mildly to moderately decreased ?45 - 59 mL/min/1.73m2 Moderately to severely decreased ??30 - 44 mL/min/1.73m2 Severely decreased ?15 - 29 mL/min/1.73m2 Kidney Failure ?< 15 ??mL/min/1.73m2 *Relative to young adult level If -Malian multiply value by 1.16. Estimated glomerular filtration [...] was last reviewed 2016. Blood specimen (specimen) 12/21/2019 8:15 AM CDT 12/21/2019 8:15 AM CDT us Emerson Allen MD LAB BLOOD ORDERABLES Final Result [facility] ([facility]) 1 [facility] Department [place] [address] * Differential, auto (12/21/2019 8:15 AM CDT) Neutrophil abs 4.5 1.7 - 6.5 K/cumm [facility] ([facility]) Imm gran abs 0.0 0.0 - 0.1 K/cumm [facility] ([facility]) Lymphocyte abs 3.0 0.8 - 3.3 K/cumm [facility] ([facility]) Monocyte abs 0.7 0.2 - 0.8 K/cumm [facility] ([facility]) Eosinophil abs 0.1 0.0 - 0.5 K/cumm [facility] ([facility]) Basophil abs 0.0 0.0 - 0.1 K/cumm [facility] ([facility]) Neutrophil pct 53.8 % [facility] ([facility]) Comment: Interpretive [...] was last revised on 2018. Lymphocyte pct 35.7 % [facility] ([facility]) Comment: Interpretive Data Percent cell count reference ranges are not reported, since discordance with absolute values may lead to misinterpretation of CBC data. Current Interpretive Data was last revised on 2018. Monocyte pct 8.3 % [facility] ([facility]) Comment: Interpretive Data Percent cell count reference ranges are not reported, since discordance with absolute values may lead to misinterpretation of CBC data. Current Interpretive Data was last revised on 2018. Eosinophil pct 1.3 % [facility] ([facility]) Comment: Interpretive [...] last revised on 2018. Blood specimen (specimen) 12/21/2019 8:15 AM CDT 12/21/2019 8:15 AM CDT Emerson Allen MD LAB BLOOD ORDERABLES Final Result [facility] ([facility] Department [place] [address] * CBC with auto differential (12/21/2019 8:15 AM CDT) WBC 8.3 3.8 - 9.9 K/cumm [facility] ([facility]) Hgb 15.1 11.9 - 15.5 g/dL [facility] ([facility]) Hct 45.1 35.6 - 45.5 % [facility] ([facility]) Plt 214 150 - 400 K/cumm [facility] ([facility]) MPV 10.1 9.1 - 12.3 fL [facility] ([place]) RBC 4.86 3.90 - 5.20 M/cumm [facility] ([facility]) MCV 92.8 81.3 - 96.4 fL [facility] ([facility]) MCH 31.1 27.1 - 33.3 pg [facility] ([facility]) MCHC 33.5 32.3 - 35.7 g/dL [facility] ([place]) RDW CV 12.9 11.1 - 14.9 % [facility] ([facility]) RDW SD 43.7 35.7 - 48.1 fL [facility] ([facility]) NRBC abs 0.00 0.00 - 0.01 K/cumm [facility] Blood specimen (specimen) 12/21/2019 8:15 AM CDT 12/21/2019 8:15 AM CDT us Emerson Allen MD LAB BLOOD ORDERABLES Final Result [facility] ([facility] Department [place] [address] * Comprehensive metabolic panel (12/21/2019 8:15 AM CDT) Sodium 141 135 - 145 mmol/L [facility] Potassium, pl 4.4 3.3 - 4.9 mmol/L [facility] Chloride 106 97 - 110 mmol/L [facility]) CO2 25 22 - 32 mmol/L [facility] ([facility]) Anion gap 10 2 - 15 mmol/L [facility] BUN 11 8 - 25 mg/dL [facility] ([facility]) Creatinine 0.86 0.60 - 1.10 mg/dL [facility] Glucose 105 70 - 199 mg/dL [facility] ([facility] Comment: Interpretive Data [...] interpretive data was last revised 2017. Calcium 8.9 8.5 - 10.3 mg/dL [facility] ([facility]) Bilirubin, total 0.4 0.1 - 1.2 mg/dL [facility] ([facility]) Protein, pl 6.5 6.5 - 8.5 g/dL [facility] ([facility]) Albumin 4.3 3.5 - 5.0 g/dL [facility] ([facility]) Alk phos 82 40 - 130 Units/L [facility] ([facility]) ALT 18 7 - 45 Units/L [facility] ([facility]) AST 16 10 - 45 Units/L [facility] ([facility]) Blood specimen (specimen) 12/21/2019 8:15 AM CDT 12/21/2019 8:15 AM CDT us Emerson Allen MD LAB BLOOD ORDERABLES Final Result Performing Organization Address City/State/[facility] Co de Phone Number [facility] ([facility] 1 [facility] Department [place] [address] * Lipid panel (12/21/2019 8:15 AM CDT) Cholesterol 127 30 - 199 mg/dL [facility] ([facility]) [...] Data was last revised on 2018. Triglycerides 100 <=149 mg/dL [facility] ([facility]) Comment: Interpretive Data [...] Data was last revised on 2018. HDL 42 >=40 mg/dL [facility]AY RODNEY) Comment: Interpretive Data [...] was last revised on 2018. LDL, calculated 65 <=129 mg/dL [facility] ([place]) Comment: Interpretive [...] was last revised on 2018. Non-HDL Cholesterol 85 mg/dL [facility] ([place]) Comment: Interpretive Data [...] was last revised on 2018. Chol/HDL ratio 3 [facility] ([place]) Blood specimen (specimen) 12/21/2019 8:15 AM CDT 12/21/2019 8:15 AM CDT us Emerson Allen MD LAB BLOOD ORDERABLES Final Result [facility] ([place]) 1 [facility] Department [place] [address] documented in this encounter Visit Diagnoses Diagnosis Dyslipidemia Other and unspecified hyperlipidemia Gastroesophageal reflux disease without esophagitis Esophageal reflux Encounter for screening colonoscopy documented in this encounter Care Teams Shelter Supervisor Relationship Specialty Start Date End Date Emerson Allen MD PCP - General 06/03/17 07/05/21 Phoenix Loredo MD Consulting Physician Cardiology 01/04/19 documented as of this encounter
--- OUTSIDE RECORDS SUMMARY | 2024-10-13 04:10 | XMS_ITS | Encounter Summary ---
Author Organization [facility] Facility Care Team Providers Care Rn Compliance Name Role Phone Emerson Allen MD Primary Care Provider [phone] Phoenix Loredo MD Unavailable [phone] Encounter Details Date Type Department Care Team (Latest Contact Info) Description 04/27/2019 Travel Social History Tobacco Use Types Packs/Day Years Used Date Smoking Tobacco: Every Day Cigarettes Smokeless Tobacco: Never Comments:Smoking History Pac ks/day: 0.5 Packs Alcohol Use Standard Drinks/Week Comments No 0 (1 standard drink = 0.6 oz pur e alcohol) Comments No Sex and Gender Information Value Date Recorded Sex Assigned at Not on file 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 Gender Identity Not on file Sexual Orientation Not on file documented as of this encounter Plan of Treatment Upcoming Encounters Date Type Department Care Team (Late st Contact Info) Description 02/04/2025 9:30 AM CDT Hospital Encounter [address] [address] Vic Gaines, DO 3 [facility] [address] [place] [address] 02/04/2025 9:30 AM CDT - 02/04/2025 10:00 AM CDT Surgery [address] [address] Vic Gaines, DO [address] [address] COLONOSCOPY Scheduled Procedures Name Priority Associated Diagnoses Date/Ti me COLONOSCOPY Encounter for screening colonoscopy 02/04/2025 9:30 AM CDT documented as of this encounter Visit Diagnoses Not on filedocumented in this encounter Care Teams Rn Compliance Relationship Specialty Start Date End Date Emerson Allen MD PCP - General 06/03/17 07/05/21 Phoenix Loredo MD Consulting Physician Cardiology 01/04/19 documented as of this encounter
--- OUTSIDE RECORDS SUMMARY | 2024-10-13 04:10 | XMS_ITS | Encounter Summary ---
Author Organization [facility] Medical Group Address [address] [facility] [address] [place] [address] Care Team Providers Care Manufacturing Technology Analyst Name Role Phone Emerson Allen MD Primary Care Provider [phone] Reason for Visit * Reason Comments Earache Pt c/o sharp left ea r pain x2 weeks Encounter Details Date Type Department Care Team (Late st Contact Info) Description 11/23/2018 6:00 PM CUSTOMER EXPERIENCE ASSOCIATE Office Visit [facility] [address] [facility] [place] [address] Miguel Sanders NP [address] [place] [address] Nasal turbinate hypertrophy (Primary Dx) Social History Tobacco Use Types Packs/Day Years Used Date Smoking Tobacco: Every Day Cigarettes Smokeless Tobacco: Never Tobacco Cessation:Ready to Q uit: No; Counseling Given: No Comments:Smoking History Packs/day: 0.5 Packs Alcohol Use Standard Drinks/Week Comments No 0 (1 standard drink = 0.6 oz pur e alcohol) Comments Unknown Sex and Gender Information Value Date Recorded Sex Assigned at Not on file Legal Sex Female 8:44 AM CUSTOMER EXPERIENCE ASSOCIATE Gender Identity Not on file Sexual Orientation Not on file documented as of this encounter Last Filed Vital Signs Vital Sign Reading Time Taken Comments Blood Pressure 142/80 11/23/2018 6:01 PM CUSTOMER EXPERIENCE ASSOCIATE Pulse 88 11/23/2018 6:01 PM CUSTOMER EXPERIENCE ASSOCIATE Temperature 36.8 ??C (98.2 ??F) 11/23/2018 6:01 PM CS T Respiratory Rate 18 11/23/2018 6:01 PM CUSTOMER EXPERIENCE ASSOCIATE Oxygen Saturation 96% 11/23/2018 6:01 PM CUSTOMER EXPERIENCE ASSOCIATE Inhaled Oxygen Concentration - - Weight 69.9 kg (154 lb) 11/23/2018 6:01 PM CUSTOMER EXPERIENCE ASSOCIATE Height 152.4 cm (5') 11/23/2018 6:01 PM CUSTOMER EXPERIENCE ASSOCIATE Body Mass Index 30.08 11/23/2018 6:01 PM CUSTOMER EXPERIENCE ASSOCIATE documented in this encounter Patient Instructions * Patient Instructions* Miguel Sanders, VACUUM CLEANER MECHANIC - 11/23/2018 6:17 PM CUSTOMER EXPERIENCE ASSOCIATE Images from the original note were not included. Take an OTC decongestant for congestion or an antihistamine such as Benadryl 25mg or Claritin 10mg for a runny nose. Use OTC Flonase as directed, nose to toes and cross your heart. Drink plenty of fluid and follow up with your PCP if 3-5 days if you are not getting any better. Continue your nasal rinses Patient Education Allergic Rhinitis WHAT YOU NEED TO KNOW: Allergic rhinitis, or hay fever, is swelling of the inside of your nose. The swelling is a reactionto allergens in the air. An allergen can be anything that causes an allergic reaction. Allergies toweeds, grass, trees, or mold often cause seasonal allergic rhinitis. Indoor dust mites, cockroaches, pet dander, or mold can also cause allergic rhinitis. DISCHARGE INSTRUCTIONS: Call 911 for the following: ?? You have chest pain or shortness of breath. Seek care immediately if: ?? You have severe pain. ?? You cough up blood. Contact your healthcare provider if: ?? You have a fever. ?? You have ear or sinus pain, or a headache. ?? Your symptoms get worse, even after treatment. ?? You have yellow, green, brown, or bloody mucus coming from your nose. ?? Your nose is bleeding or you have pain inside your nose. ?? You have trouble sleeping because of your symptoms. ?? You have questions or concerns about your condition or care. Medicines: ?? Medicines help decrease your symptoms and clear your stuffy nose. ?? Take your medicine as directed. Contact your healthcare provider if you think your medicine is not helping or if you have side effects. Tell him of her if you are allergic to any medicine. Keep a list of the medicines, vitamins, and herbs you take. Include the amounts, and when and why you take them. Bring the list or the pill bottles to follow-up visits. Carry your medicine list with you in case of an emergency. How to manage allergic rhinitis: The best way to manage allergic rhinitis is to avoid allergens that can trigger your symptoms. Any of the following may help decrease your symptoms: ?? Rinse your nose and sinuses with a salt water solution or use a salt water nasal spray. This will help thin the mucus in your nose and rinse away pollen and dirt. It will also help reduce swellingso you can breathe normally. Ask your healthcare provider how often to rinse your nose. ?? Reduce exposure to dust mites. Wash sheets and towels in hot water every week. Cover your pillows and mattresses with allergen-free covers. Limit the number of stuffed animals and soft toys your child has. Wash your child's toys in hot water regularly. Vacuum weekly and use a vacuum septic cleaner withan air filter. If possible, get rid of carpets and curtains. These collect dust and dust mites. ?? Reduce exposure to pollen. Keep windows and doors closed in your house and car. Stay inside whenair pollution or the pollen count is high. Run your air conditioner on recycle, and change air filters often. Shower and wash your hair before bed every night to rinse away pollen. ?? Reduce exposure to pet dander. If possible, do not keep cats, dogs, birds, or other pets. If youdo keep pets in your home, keep them out of bedrooms and carpeted rooms. Bathe them often. ?? Reduce exposure to mold. Do not spend time in basements. Choose artificial plants instead of live plants. Keep your home's humidity at less than 45%. Do not have ponds or standing water in your home or yard. ?? Do not smoke. Avoid others who smoke. Ask your healthcare provider for information if you currently smoke and need help to quit. Follow up with your healthcare provider as directed: You may need to see an ski edge painter often to control your symptoms. Write down your questions so you remember to ask them during your visits. ?? 2017 [employer] Information is for End User's use only and may not be sold, redistributed or otherwise used for commercial purposes. All illustrations and images included in CareNotes?? are the copyrighted property of [employer], [employer]. or [employer]. The above information is an educational resource center teacher only. It is not intended as medical advice for individual conditions or treatments. Talk to your doctor, nurse or pharmacist before following any medical regimen to see if it is safe and effective for you. OMER EXPERIENCE ASSOCIATE OMER EXPERIENCE ASSOCIATE OMER EXPERIENCE ASSOCIATE documented in this encounter Progress Notes * Miguel Sanders NP - 11/23/2018 6:00 PM CST Subjective Patient ID: Mirtha Cherry is a 53 y.o. female. Earache (Pt c/o sharp left ear pain x2 weeks ) Right ear peressure for the past 2-3 days Earache There is pain in the right ear. This is a new problem. The current episode started in the past 7 days. The problem occurs constantly. The problem has been gradually worsening. There has been no fever. The pain is at a severity of 3/10. Pertinent negatives include no abdominal pain, coughing, ear discharge, headaches, rash or sore throat. She has tried acetaminophen for the symptoms. The treatmentprovided mild relief. There is no history of a chronic ear infection or hearing loss. Review of Systems Constitutional: Negative for activity change, chills and fatigue. HENT: Positive for ear pain. Negative for ear discharge and sore throat. Respiratory: Negative for cough. Cardiovascular: Negative for chest pain. Gastrointestinal: Negative for abdominal pain. Musculoskeletal: Negative for back pain. Skin: Negative for rash. Allergic/Immunologic: Negative for environmental allergies. Neurological: Negative for headaches. Psychiatric/Behavioral: Negative for behavioral problems. Objective Physical Exam Constitutional: She is oriented to person, place, and time. She appears well- developed and well-nourished. HENT: Head: Normocephalic. Right Ear: Hearing, tympanic membrane and external ear normal. Left Ear: Hearing, tympanic membrane and external ear normal. Nose: Mucosal edema present. Mouth/Throat: Uvula is midline, oropharynx is clear and moist and mucous membranes are normal. Eyes: Conjunctivae are normal. Neck: Normal range of motion. Neck supple. Cardiovascular: Normal rate, regular rhythm and normal heart sounds. Pulmonary/Chest: Effort normal and breath sounds normal. Abdominal: Soft. Musculoskeletal: Normal range of motion. Neurological: She is alert and oriented to person, place, and time. Skin: Skin is warm and dry. No rash noted. No erythema. Psychiatric: She has a normal mood and affect. Nursing note and vitals reviewed. Vitals: 11/23/18 1801 BP: 142/80 BP Location: Left arm Patient Position: Sitting Pulse: 88 Resp: 18 Temp: 36.8 ??C (98.2 ??F) TempSrc: Oral SpO2: 96% Weight: 69.9 kg (154 lb) Height: 152.4 cm (5') Assessment/Plan Take an OTC decongestant for congestion or an antihistamine such as Benadryl 25mg or Claritin 10mg for a runny nose. Use OTC Flonase as directed, nose to toes and cross your heart. Drink plenty of fluid and follow up with your PCP if 3-5 days if you are not getting any better. Continue your nasal rinses Diagnoses and all orders for this visit: Nasal turbinate hypertrophy (Primary) No notes on file OMER EXPERIENCE ASSOCIATE documented in this encounter Plan of Treatment Upcoming Encounters Date Type Department Care Team (Late st Contact Info) Description 02/04/2025 9:30 AM CDT Hospital Encounter [address] [address] Vic Gaines, DO 3 [facility] [address] [address] 02/04/2025 9:30 AM CDT - 02/04/2025 10:00 AM CDT Surgery [address] [address] Vic Gaines, DO 3 [facility] [address] [place] [address] COLONOSCOPY Scheduled Procedures Name Priority Associated Diagnoses Date/Ti me COLONOSCOPY Encounter for screening colonoscopy 02/04/2025 9:30 AM CDT documented as of this encounter Visit Diagnoses Diagnosis Nasal turbinate hypertrophy- Primary Hypertrophy of nasal turbinates Encounter for screening colonoscopy documented in this encounter Care Teams Manufacturing Technology Analyst Relationship Specialty Start Date End Date Emerson Allen MD PCP - General 06/03/17 07/05/21 documented as of this encounter
--- OUTSIDE RECORDS SUMMARY | 2024-10-13 04:10 | XMS_ITS | Encounter Summary ---
Author Organization [facility] Facility Care Team Providers Care Pinion And Wheel Truer Name Role Phone Emerson Allen MD Primary Care Provider [phone] Phoenix Loredo MD Unavailable [phone] Encounter Details Date Type Department Care Team (Latest Contact Info) Description 10/19/2019 Travel Social History Tobacco Use Types Packs/Day [...] on file Legal Sex Female 8:44 AM PIER HAND Gender Identity Not on file Sexual Orientation Not on file documented as of this encounter Plan of Treatment Upcoming Encounters Date Type Department Care Team (Late st Contact Info) Description 02/04/2025 9:30 AM CDT Hospital Encounter [address] [address] Vic Gaines, DO [address] [address] 02/04/2025 9:30 AM CDT - 02/04/2025 10:00 AM CDT Surgery [address] [address] Vic Gaines, DO 3 [facility] [address] [place] [address] COLONOSCOPY Scheduled Procedures Name Priority Associated Diagnoses Date/Ti me COLONOSCOPY Encounter for screening colonoscopy 02/04/2025 9:30 AM CDT documented as of this encounter Visit Diagnoses Not on filedocumented in this encounter Care Teams Pinion And Wheel Truer Relationship Specialty Start Date End Date Emerson Allen MD PCP - General 06/03/17 07/05/21 Phoenix Loredo MD Consulting Physician Cardiology 01/04/19 documented as of this encounter
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
--- OUTSIDE RECORDS SUMMARY | 2024-10-13 04:10 | XMS_ITS | Encounter Summary ---
Author Organization [facility] Address [address] [place] [address] Care Team Providers Care Executive Consultant Name Role Phone Emerson Allen MD Primary Care Provider [phone] Reason for Visit * Reason Comments Cough The patient is havin g a cough, facial pressure, headache, and body aches. It has been going on since last monday. Encounter Details Date Type Department Care Team (Late st Contact Info) Description 12/11/2018 7:15 PM LEGAL ARCHIVIST Office Visit [facility] [address] [place] [address] Roxana Maria, CRISTIANO [address] [id number] Upper respiratory tract infection, unspecified type (Primary Dx) Social History Tobacco Use Types Packs/Day Years Used Date Smoking Tobacco: Every Day Cigarettes Smokeless Tobacco: Never Comments:Smoking History Pac ks/day: 0.5 Packs Alcohol Use Standard Drinks/Week Comments No 0 (1 standard drink = 0.6 oz pur e alcohol) Comments No Sex and Gender Information Value Date Recorded Sex Assigned at Not on file Legal Sex Female 8:44 AM LEGAL ARCHIVIST Gender Identity Not on file Sexual Orientation Not on file documented as of this encounter Last Filed Vital Signs Vital Sign Reading Time Taken Comments Blood Pressure 126/84 12/11/2018 7:46 PM LEGAL ARCHIVIST Pulse 99 12/11/2018 7:46 PM LEGAL ARCHIVIST Temperature 36.9 ??C (98.5 ??F) 12/11/2018 7:46 PM CS T Respiratory Rate 18 12/11/2018 7:46 PM LEGAL ARCHIVIST Oxygen Saturation 97% 12/11/2018 7:46 PM LEGAL ARCHIVIST Inhaled Oxygen Concentration - - Weight 74.8 kg (165 lb) 12/11/2018 7:46 PM LEGAL ARCHIVIST Height 152.4 cm (5') 12/11/2018 7:46 PM LEGAL ARCHIVIST Body Mass Index 32.22 12/11/2018 7:46 PM LEGAL ARCHIVIST documented in this encounter Patient Instructions * Patient Instructions* Roxana Ramon NP - 12/11/2018 7:15 PM LEGAL ARCHIVIST Complete any medications as prescribed You will need to take OTC medications Mucinex for chest congestion Sudafed for nasal/head congestion Zyrtec for nasal drainage Flonase for sinuses Dayquil/Delysm for cough Tylenol/Motrin for fever Drink plenty of fluids to stay hydrated Get plenty of rest Vitamin C- airborne or EmergenC If your symptoms worsen or you experience shortness of breath, RTC or go to ER. If you have been prescribed any medications, take them as directed L ARCHIVIST documented in this encounter Ordered Prescriptions Prescription Sig Dispense Quantity Refills Last Filled Start Date End Date amoxicillin-clavul anate (AUGMENTIN) 875-125 mg per tabletIndications: Upper respiratory tract infection, unspecified type Take 1 tablet by mouth 2 (two) times a day for 10 days. 20 tablet 12/11/2018 12/21/2018 documented in this encounter Progress Notes * Roxana Ramon NP - 12/11/2018 7:15 PM CST Subjective/Objective Patient ID: Mirtha Cherry is a 53 y.o. female. Chief Complaint Cough (The patient is having a cough, facial pressure, headache, and body aches. It has been going on since last monday.) Presents to clinic for cough, nasal drainage, facial tenderness, sinus pressure x1 week. She has taken Mucinex, flonase. Cough This is a new problem. The current episode started in the past 7 days. The problem has been gradually worsening. The cough is productive of sputum. Associated symptoms include nasal congestion, rhinorrhea and a sore throat. Pertinent negatives include no fever. The treatment provided no relief. Review of Systems Constitutional: Negative for fever. HENT: Positive for rhinorrhea and sore throat. Respiratory: Positive for cough. Physical Exam Constitutional: She is oriented to person, place, and time. She appears well- developed and well-nourished. HENT: Right Ear: Hearing, tympanic membrane, external ear and ear canal normal. Left Ear: Hearing, tympanic membrane, external ear and ear canal normal. Nose: Right sinus exhibits maxillary sinus tenderness. Mouth/Throat: Mucous membranes are normal. Posterior oropharyngeal erythema present. Tonsils are 2+on the right. Tonsils are 2+ on the left. Eyes: Conjunctivae are normal. Cardiovascular: Normal rate and regular rhythm. Pulmonary/Chest: Effort normal and breath sounds normal. Lymphadenopathy: She has no cervical adenopathy. Neurological: She is alert and oriented to person, place, and time. GCS eye subscore is 4. GCS verbal subscore is 5. GCS motor subscore is 6. Skin: Skin is warm and dry. Psychiatric: She has a normal mood and affect. Vitals: 12/11/18 1946 BP: 126/84 BP Location: Left arm Patient Position: Sitting Pulse: 99 Resp: 18 Temp: 36.9 ??C (98.5 ??F) TempSrc: Oral SpO2: 97% Weight: 74.8 kg (165 lb) Height: 152.4 cm (5') Assessment/Plan Complete any medications as prescribed You will need to take OTC medications Mucinex for chest congestion Sudafed for nasal/head congestion Zyrtec for nasal drainage Flonase for sinuses Dayquil/Delysm for cough Tylenol/Motrin for fever Drink plenty of fluids to stay hydrated Get plenty of rest Vitamin C- airborne or EmergenC If your symptoms worsen or you experience shortness of breath, RTC or go to ER. If you have been prescribed any medications, take them as directed Diagnoses and all orders for this visit: Upper respiratory tract infection, unspecified type (Primary) - amoxicillin-clavulanate (AUGMENTIN) 875-125 mg per tablet; Take 1 tablet by mouth 2 (two) times aday for 10 days. Disposition- Discussed medications dosages, usage & potential [...] in agreement with the plan of care Roxana Ramon NP L ARCHIVIST documented in this encounter Plan of Treatment Upcoming Encounters Date Type Department Care Team (Late st Contact Info) Description 02/04/2025 9:30 AM CDT Hospital Encounter [address] [address] Vic Gaines, DO 3 [facility] [address] [place] [id number] 02/04/2025 9:30 AM CDT - 02/04/2025 10:00 AM CDT Surgery [address] [address] Vic Gaines, DO [address] [facility] [address] [place] [id number] COLONOSCOPY Scheduled Procedures Name Priority Associated Diagnoses Date/Ti me COLONOSCOPY Encounter for screening colonoscopy 02/04/2025 9:30 AM CDT documented as of this encounter Visit Diagnoses Diagnosis Upper respiratory tract infection, unspecified type- Primary Encounter for screening colonoscopy documented in this encounter Care Teams Executive Consultant Relationship Specialty Start Date End Date Emerson Allen MD PCP - General 06/03/17 07/05/21 documented as of this encounter
--- OUTSIDE RECORDS SUMMARY | 2024-10-13 04:10 | XMS_ITS | Encounter Summary ---
Author Organization [facility] Medical [facility] Address [address] [facility] [address] [place] [id number] Care Team Providers Care Absorption And Adsorption Engineer Name Role Phone Emerson Allen MD Primary Care Provider [phone] Phoenix Loredo MD Unavailable [phone] Reason for Visit * Reason Comments Eye Problem Pt c/o itchy, rednes s in morning. Pt is using eye drops to help but reports not getting better. Pt states she believes it is pink eye. Onset 3-5 days Encounter Details Date Type Department Care Team (Late st Contact Info) Description 05/31/2019 11:15 AM CDT Office Visit [facility] [address] [facility] [place] [address] Roxana Maria, ENGINEERING RECRUITER [address] [place], [place] [id number] Acute conjunctivitis of right eye, unspecified acute conjunctivitis type (Primary Dx) Social History Tobacco Use [...] on file Legal Sex Female 8:44 AM GANG PUSHER Gender Identity Not on file Sexual Orientation Not on file documented as of this encounter Last Filed Vital Signs Vital Sign Reading Time Taken Comments Blood Pressure 122/78 05/31/2019 11:17 AM CDT Pulse 70 05/31/2019 11:17 AM CDT Temperature 36.7 ??C (98 ??F) 05/31/2019 11:17 AM CDT Respiratory Rate 16 05/31/2019 11:17 AM CDT Oxygen Saturation 99% 05/31/2019 11:17 AM CDT Inhaled Oxygen Concentration - - Weight 72.1 kg (159 lb) 05/31/2019 11:17 AM CDT Height 152.4 cm (5') 05/31/2019 11:17 AM CDT Body Mass Index 31.05 05/31/2019 11:17 AM CDT documented in this encounter Patient Instructions * Patient Instructions* Roxana Ramon NP - 05/31/2019 11:15 AM CDT Use your eye drops or ointment as directed Practice good hand hygiene before and after administering medication Wash your hands if you touch your eye Do not touch the tip of the medication bottle to your eye Follow up with PCP if you are not getting better in a 3-4 days Go to the ER if you experience deep eye pain or vision loss/changes documented in this encounter Ordered Prescriptions Prescription Sig Dispense Quantity Refills Last Filled Start Date End Date trimethoprim-polymy rick B (POLYTRIM) ophthalmic solutionIndications :Acute conjunctivitis of right eye, unspecified acute conjunctivitis type Administer 1 drop into both eyes every 4 (four) hours while awake 10 mL 05/31/2019 0 documented in this encounter Progress Notes * Roxana Ramon NP - 05/31/2019 11:15 AM CDT Images from the original note were not included. Subjective/Objective Patient ID: Mirtha Cherry is a 54 y.o. female. Chief Complaint Eye Problem (Pt c/o itchy, redness in morning. Pt is using eye drops to help but reports not getting better. Pt states she believes it is pink eye. Onset 3-5 days) Presents to clinic for both eyes itching, having a lot of discharge in the morning x4 days. She hasused some allergy eye drops, but it is not helping. Eye Problem Both eyes are affected.This is a new problem. The current episode started in the past 7 days. The problem occurs constantly. There was no injury mechanism. The patient is experiencing no pain. There is no known exposure to pink eye. She does not wear contacts. Associated symptoms include an eye discharge and itching. Pertinent negatives include no blurred vision, eye redness, fever, foreign body sensation or photophobia. Review of Systems Constitutional: Negative for chills and fever. HENT: Negative for postnasal drip and sneezing. Eyes: Positive for discharge and itching. Negative for blurred vision, photophobia, pain, redness and visual disturbance. Respiratory: Negative. Cardiovascular: Negative. Gastrointestinal: Negative. Neurological: Negative for headaches. Psychiatric/Behavioral: Negative. Physical Exam Constitutional: She is oriented to person, place, and time. She appears well- developed and well-nourished. Eyes: Pupils are equal, round, and reactive to light. Conjunctivae and EOM are normal. Right eye exhibits no discharge. Left eye exhibits no discharge. Neck: Normal range of motion. Cardiovascular: Normal rate and regular rhythm. Pulmonary/Chest: Effort normal and breath sounds normal. Musculoskeletal: Normal range of motion. Neurological: She is alert and oriented to person, place, and time. Skin: Skin is warm and dry. Psychiatric: She has a normal mood and affect. Her speech is normal and behavior is normal. Vitals: 05/31/19 1117 BP: 122/78 BP Location: Left arm Patient Position: Sitting Pulse: 70 Resp: 16 Temp: 36.7 ??C (98 ??F) TempSrc: Oral SpO2: 99% Weight: 72.1 kg (159 lb) Height: 152.4 cm (5') Assessment/Plan Use your eye drops or ointment as directed Practice good hand hygiene before and after administering medication Wash your hands if you touch your eye Do not touch the tip of the medication bottle to your eye Follow up with PCP if you are not getting better in a 3-4 days Go to the ER if you experience deep eye pain or vision loss/changes Diagnoses and all orders for this visit: Acute conjunctivitis of right eye, unspecified acute conjunctivitis type (Primary) - trimethoprim-polymyxin B (POLYTRIM) ophthalmic solution; Administer 1 drop into both eyes every 4(four) hours while awake Disposition- Discussed medications dosages, usage & potential [...] the plan of care Roxana Ramon NP Cosigned by Emerson Allen MD at 06/05/2019 9:51 PM CDT documented in this encounter Plan of Treatment Upcoming Encounters Date Type Department Care Team (Late st Contact Info) Description 02/04/2025 9:30 AM CDT Hospital Encounter [address] [address] Vic Gaines, DO [address] [address] 02/04/2025 9:30 AM CDT - 02/04/2025 10:00 AM CDT Surgery [address] [address] Vic Gaines, DO [address] [address] COLONOSCOPY Scheduled Procedures Name Priority Associated Diagnoses Date/Ti me COLONOSCOPY Encounter for screening colonoscopy 02/04/2025 9:30 AM CDT documented as of this encounter Visit Diagnoses Diagnosis Acute conjunctivitis of right eye, unspecified acute conjunctivitis type- Primary Encounter for screening colonoscopy documented in this encounter Care Teams Absorption And Adsorption Engineer Relationship Specialty Start Date End Date Emerson Allen MD PCP - General 06/03/17 07/05/21 Phoenix Loredo MD Consulting Physician Cardiology 01/04/19 documented as of this encounter
--- OUTSIDE RECORDS SUMMARY | 2024-10-13 04:10 | XMS_ITS | Encounter Summary ---
Author Organization [facility] Medical [facility] Address [address] [facility] [address] [place] [address] Care Team Providers Care Greenhouse Staff Name Role Phone Emerson Allen MD Primary Care Provider [phone] Reason for Referral * Diagnostic Imaging (Routine) - Closed Specialty Diagnoses / Procedures Referred By Denton pickard Referred To Contact Diagnoses Thyroid nodule Procedures US Thyroid Emerson Allen MD Phone: tel: fax: [address] [address] Referral ID Status Reason Start Date Expiration Date Visits Re quested Visits Authorized [id number] Closed 07/06/2018 01/15/2020 1 1 Reason for Visit * Reason Comments Health Maintenance Encounter Details Date Type Department Care Team (Late st Contact Info) Description 07/06/2018 10:30 AM CDT Office Visit [facility] [address] [place] [address] Emerson Allen MD [address] [facility] [address] [place] [address] Dyslipidemia (Primary Dx); Gastroesophageal reflux disease without esophagitis; Other migraine without status migrainosus, not intractable; Need for vaccination; Thrush; Thyroid nodule Social History Tobacco Use Types Packs/Day Years Used Date Smoking Tobacco: Every Day Cigarettes Smokeless Tobacco: Never Comments:Smoking History Pac ks/day: 0.5 Packs Alcohol Use Standard Drinks/Week Comments No 0 (1 standard drink = 0.6 oz pur e alcohol) Comments Unknown Sex and Gender Information Value Date Recorded Sex Assigned at Not on file 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 Gender Identity Not on file Sexual Orientation Not on file documented as of this encounter Last Filed Vital Signs Vital Sign Reading Time Taken Comments Blood Pressure 122/79 07/06/2018 10:22 AM CDT Pulse 80 07/06/2018 10:22 AM CDT Temperature 36.7 ??C (98 ??F) 07/06/2018 10:22 AM CDT Respiratory Rate - - Oxygen Saturation 98% 07/06/2018 10:22 AM CDT Inhaled Oxygen Concentration - - Weight 69.9 kg (154 lb) 07/06/2018 10:22 AM CDT Height 154.9 cm (5' 0.98 ) 07/06/2018 10:22 AM C DT Body Mass Index 29.11 07/06/2018 10:22 AM CDT documented in this encounter Patient Instructions * Patient Instructions* Emerson Allen MD - 07/06/2018 10:30 AM CDT Mirtha was seen today for health maintenance. Diagnoses and all orders for this visit: Dyslipidemia Comments: controlled liver function normal continue atorvastatin 40 mg daily HMV in 6 mos Orders: - CBC with auto differential; Future - Comprehensive metabolic panel; Future - Lipid panel; Future Gastroesophageal reflux disease without esophagitis Comments: refilled omeprazole Orders: - omeprazole (PriLOSEC) 40 mg capsule; Take 1 capsule (40 mg total) by mouth daily. Other migraine without status migrainosus, not intractable Comments: refilled Imitrex Orders: - SUMAtriptan (IMITREX) 50 mg tablet; TAKE 1 TABLET BY MOUTH EARLY POSSIBLE AFTER ONSET OF MIGRAINE. MAY REPEAT AFTER 2 HOURS IF HEADACHE RETURNS. Need for vaccination - Flu Vaccine Quad PF 6m+ IM - Fluarix / FluLaval Thrush Comments: persistent nystatin swish and spit filled, may use for 2 weeks Orders: - nystatin 100,000 unit/mL suspension; Take 5 mL (500,000 Units total) by mouth 4 (four) times a day. Swish in mouth and spit out. Thyroid nodule Comments: rechecking u/s tsh with next back of labwork Orders: - US Thyroid; Future - TSH reflex to free T4; Future May use topical otc hydrocortisone first x 2 weeks for area on forearm; likely eczema-like rather than infectious documented in this encounter Ordered Prescriptions Prescription Sig Dispense Quantity Refills Last Filled Start Date End Date nystatin 100,000 unit/mL suspensionIndicati ons:Thrush Take 5 mL (500,000 Units total) by mouth 4 (four) times a day. Swish in mouth and spit out. 280 mL 07/06/2018 8 SUMAtriptan (IMITREX) 50 mg tabletIndications: Migraine TAKE 1 TABLET BY MOUTH EARLY POSSIBLE AFTER ONSET OF MIGRAINE. MAY REPEAT AFTER 2 HOURS IF HEADACHE RETURNS. 9 tablet 3 07/06/2018 9 omeprazole (PriLOSEC) 40 mg capsuleIndications :Gastroesophageal reflux disease without esophagitis Take 1 capsule (40 mg total) by mouth daily. 90 capsule 3 07/06/2018 9 documented in this encounter Progress Notes * Emerson Allen MD - 07/06/2018 10:30 AM CDT Images from the original note were not included. Subjective/Objective Patient ID: Mirtha Cherry is a 53 y.o. female. Chief Complaint Health Maintenance Here for V. She is doing well overall. She is s/p double mastectomy. She did have a postop infection 3 weeks after (4 weeks ago today) and waas addressed successfully. Her UE ROM is coming back. She does note also 'rash' on her arm, for the past week. It is no longer pruritic, but started out that way; appears to be improving. Notes continued 'thrush-like' coating on her tongue. Despite avoiding the nasal flonase. She deniesvaginal yeast infections recently. She had been on antibiotics for the mastitis (10 days of clindamycin). Nystatin did help. She had a thyroid u/s worked up in 2011, but not since. GERD She reports no chest pain, no coughing or no wheezing. Hyperlipidemia This is a chronic problem. The problem is controlled. Recent lipid tests were reviewed and are normal. She has no history of chronic renal disease, diabetes, hypothyroidism, liver disease, obesity ornephrotic syndrome. Pertinent negatives include no chest pain or shortness of breath. Current antihyperlipidemic treatment includes statins. Current Outpatient Prescriptions: ??? albuterol HFA (PROVENTIL HFA,VENTOLIN HFA,PROAIR HFA) 90 mcg/actuation inhaler, Inhale 2 puffs every 6 (six) hours as needed for wheezing., Disp: , Rfl: ??? aspirin 81 mg tablet, Take 81 mg by mouth., Disp: , Rfl: ??? atorvastatin (LIPITOR) 40 mg tablet, , Disp: , Rfl: ??? clopidogrel (PLAVIX) 75 mg tablet, Take 75 mg by mouth., Disp: , Rfl: ??? coenzyme Q10 (CO Q-10) 200 mg capsule, Take 1 capsule by oral route every day, Disp: 0, Rfl: 0 ??? fluticasone (FLONASE) 50 mcg/actuation nasal spray, Administer 1 spray into each nostril daily., Disp: , Rfl: ??? Lactobacillus acidophilus (PROBIOTIC) 10 billion cell capsule, Take 1 capsule by oral route every day, Disp: 0, Rfl: 0 ??? loratadine (CLARITIN) 10 mg tablet, Take 10 mg by mouth daily., Disp: , Rfl: ??? multivitamin capsule, Take 1 capsule by mouth daily., Disp: , Rfl: ??? omeprazole (PriLOSEC) 40 mg capsule, Take 1 capsule (40 mg total) by mouth daily., Disp: 90 capsule, Rfl: 3 ??? SUMAtriptan (IMITREX) 50 mg tablet, TAKE 1 TABLET BY MOUTH EARLY POSSIBLE AFTER ONSET OF MIGRAINE. MAY REPEAT AFTER 2 HOURS IF HEADACHE RETURNS., Disp: 9 tablet, Rfl: 3 Review of Systems Constitutional: Negative. HENT: Negative. Negative for trouble swallowing. + tongue coating Respiratory: Negative for cough, shortness of breath and wheezing. Cardiovascular: Negative for chest pain and palpitations. Gastrointestinal: Negative. Genitourinary: Negative. Musculoskeletal: Negative for neck pain. Skin: Positive for rash. Neurological: Negative for headaches. Psychiatric/Behavioral: Negative. BP 122/79 (BP Location: Left arm, Patient Position: Sitting) Pulse 80 Temp 36.7 ??C (98 ??F) (Oral) Ht 154.9 cm (5' 0.98 ) Wt 69.9 kg (154 lb) SpO2 98% BMI 29.11 kg/m?? Physical Exam Constitutional: She is oriented to person, place, and time. She appears well- developed and well-nourished. HENT: Head: Normocephalic and atraumatic. Right Ear: External ear normal. Left Ear: External ear normal. Mouth/Throat: Uvula is midline, oropharynx is clear and moist and mucous membranes are normal. She does not have dentures. Normal dentition. No dental caries. Eyes: Pupils are equal, round, and reactive to light. Conjunctivae are normal. Neck: Normal range of motion. Neck supple. Cardiovascular: Normal rate, regular rhythm and normal heart sounds. Exam reveals no gallop and no friction rub. No murmur heard. Pulmonary/Chest: Effort normal and breath sounds normal. Abdominal: Soft. Bowel sounds are normal. There is no tenderness. Musculoskeletal: Normal range of motion. She exhibits no edema. Neurological: She is alert and oriented to person, place, and time. Skin: Skin is warm and dry. Capillary refill takes less than 2 seconds. Rash noted. Psychiatric: She has a normal mood and affect. Her behavior is normal. Vitals reviewed. Abstract on 07/02/2018 Component Date Value Ref Range Status ??? HM Lipid Panel 06/29/2018 Normal Final LDL - 82 Assessment/Plan Diagnoses and all orders for this visit: Dyslipidemia (Primary) Comments: controlled liver function normal continue atorvastatin 40 mg daily HMV in 6 mos Orders: - CBC with auto differential; Future - Comprehensive metabolic panel; Future - Lipid panel; Future Gastroesophageal reflux disease without esophagitis Comments: refilled omeprazole Orders: - omeprazole (PriLOSEC) 40 mg capsule; Take 1 capsule (40 mg total) by mouth daily. Other migraine without status migrainosus, not intractable Comments: refilled Imitrex Orders: - SUMAtriptan (IMITREX) 50 mg tablet; TAKE 1 TABLET BY MOUTH EARLY POSSIBLE AFTER ONSET OF MIGRAINE. MAY REPEAT AFTER 2 HOURS IF HEADACHE RETURNS. Need for vaccination - Flu Vaccine Quad PF 6m+ IM - Fluarix / FluLaval Thrush Comments: persistent nystatin swish and spit filled, may use for 2 weeks Orders: - nystatin 100,000 unit/mL suspension; Take 5 mL (500,000 Units total) by mouth 4 (four) times a day. Swish in mouth and spit out. Thyroid nodule Comments: rechecking u/s tsh with next back of labwork Orders: - US Thyroid; Future - TSH reflex to free T4; Future Emerson Allen MD documented in this encounter Plan of Treatment Upcoming Encounters Date Type Department Care Team (Late st Contact Info) Description 02/04/2025 9:30 AM CDT Hospital Encounter [address] [address] Vic Gaines DO [address] [address] 02/04/2025 9:30 AM CDT - 02/04/2025 10:00 AM CDT Surgery [address] [address] Vic Gaines DO [address] [address] COLONOSCOPY Scheduled Procedures Name Priority Associated Diagnoses Date/Ti ga COLONOSCOPY Encounter for screening colonoscopy 02/04/2025 9:30 AM CDT documented as of this encounter Results * TSH reflex to free T4 (12/29/2018 7:18 AM CDT) TSH 1.28 0.30 - 4.20 mcIUnit/mL [facility] I[facility]QUIERDO ([place]) Blood specimen (specimen) 12/29/2018 7:18 AM CDT 12/29/2018 8:31 AM CDT Narrative JAY IZQUIERDO (ARTEMIO) - 12/29/2018 9:06 AM CDT Emerson Allen MD LAB BLOOD ORDERABLES Final Result JAY FELECIA ([facility]) [address] [facility] Department [place] [address] * Lipid panel (12/29/2018 7:18 AM CDT) Cholesterol 146 30 - 199 mg/dL J[facility] IZQUIERDO ([place]EMIO) [...] Data was last revised on 2018. Triglycerides 119 <=149 mg/dL J[facility] IZQUIERDO (ARTEMIO) Comment: Interpretive [...] on 2018. HDL 40 >=40 mg/dL JAY Chahal (ARTEMIO) Comment: Interpretive Data Ages < or [...] was last revised on 2018. LDL, calculated 82 <=129 mg/dL JAY RODNEY) Comment: Interpretive Data [...] on 2018. Non-HDL Cholesterol 106 mg/dL [facility] ([facility]) Comment: Interpretive Data [...] revised on 2018. Chol/HDL ratio 4 DEEPAK [facility] ([facility]) Blood specimen (specimen) 12/29/2018 7:18 AM CDT 12/29/2018 8:31 AM CDT Narrative JAY IZQUIERDO ([place]) - 12/29/2018 9:06 AM CDT us Emerson Allen MD LAB BLOOD ORDERABLES Final Result JAY IZQUIERDO ([facility]) [address] [facility] Department [place] [address] * Comprehensive metabolic panel (12/29/2018 7:18 AM CDT) Sodium 141 135 - 145 mmol/L [facility] ([facility]) Potassium, pl 4.2 3.3 - 4.9 mmol/L [facility] ([facility]) Chloride 106 97 - 110 mmol/L [facility] ([facility]) CO2 22 22 - 32 mmol/L [facility] ([facility]) Anion gap 13 2 - 15 mmol/L [facility] ([facility]) BUN 10 8 - 25 mg/dL [facility] ([facility]) Creatinine 0.69 0.60 - 1.10 mg/dL [facility] ([facility]) Glucose 100 70 - 199 mg/dL [facility] ([facility]) Comment: Interpretive Data Fasting glucose [...] 5.0 g/dL [facility] ([facility]) Alk phos 108 40 - 130 Units/L [facility] ([facility]) ALT 18 7 - 45 Units/L [facility] ([facility]) AST 14 10 - 45 Units/L [facility] ([facility]) Blood specimen (specimen) 12/29/2018 7:18 AM CDT 12/29/2018 8:31 AM CDT Narrative [facility] ([facility]) - 12/29/2018 9:06 AM CDT us Emerson Allen MD LAB BLOOD ORDERABLES Final Result [facility] ([facility]) [address] [facility] Department [place] [address] * CBC with auto differential (12/29/2018 7:18 AM CDT) WBC 8.5 3.8 - 9.9 K/cumm [facility] ([facility]) Hgb 13.3 11.9 - 15.5 g/dL [facility] ([place]) Hct 40.5 35.6 - 45.5 % [facility] ([place]) Plt 251 150 - 400 K/cumm [facility] ([place]) MPV 10.2 9.1 - 12.3 fL [facility] ([place]) RBC 4.54 3.90 - 5.20 M/cumm [facility] I[facility]QU[facility] ([place]) MCV 89.2 81.3 - 96.4 fL [facility]QU[facility] ([place]) MCH 29.3 27.1 - 33.3 pg [facility] ([place]) MCHC 32.8 32.3 - 35.7 g/dL [facility] ([facility]) RDW CV 13.8 11.1 - 14.9 % [facility]QU[facility] ([place]) RDW SD 45.2 35.7 - 48.1 fL [facility]QU[facility] ([place]) NRBC abs 0.00 0.00 - 0.01 K/cumm [facility] I[facility]QU[facility] (ARTEM[facility]) Blood specimen (specimen) 12/29/2018 7:18 AM CDT 12/29/2018 8:31 AM CDT Narrative [facility] IZQUIERDO ([place]) - 12/29/2018 8:36 AM CDT us Emerson Allen MD LAB BLOOD ORDERABLES Final Result [facility] IZQUIERDO ([facility]) [address] [facility] Department [place] [address] * US Thyroid (08/14/2018 7:22 AM BRIDGE ENGINEER) Anatomical Region Laterality Modality Head and Neck N/A Ultrasound 08/14/2018 9:15 AM BRIDGE ENGINEER Impressions 08/14/2018 9:22 AM BRIDGE ENGINEER 1. ??Multinodular goiter with a few small hypoechoic nodules bilaterally that are stable to smaller compared to 02/03/2012. Electronically signed by: Franco Bucio Jr., M.D. Narrative 08/14/2018 9:22 AM BRIDGE ENGINEER US THYROID HISTORY: Thyroid nodule. COMPARISON: Ultrasound thyroid on 02/03/2012. TECHNIQUE: Grayscale real-time images were obtained. FINDINGS: Right lobe measures 5.9 centimeters length and 2.1 x 1.7 centimeters width. Parenchyma is mildly heterogeneous. Left lobe measures 5.6 centimeters length and 1.8 x 2.1 centimeters width. Parenchyma is mildly heterogeneous. A few small subcentimeter hypoechoic nodules are present in each lobe, the largest 8 mm in the medial mid left lobe. Isthmus is 3 millimeters thick. Procedure Note Franco Bucio Jr., MD - 08/14/2018 US THYROID HISTORY: Thyroid nodule. COMPARISON: Ultrasound thyroid on 02/03/2012. TECHNIQUE: Grayscale real-time images were obtained. FINDINGS: Right lobe measures 5.9 centimeters length and 2.1 x 1.7 centimeters width. Parenchyma is mildly heterogeneous. Left lobe measures 5.6 centimeters length and 1.8 x 2.1 centimeters width. Parenchyma is mildly heterogeneous. A few small subcentimeter hypoechoic nodules are present in each lobe, the largest 8 mm in the medial mid left lobe. Isthmus is 3 millimeters thick. IMPRESSION: 1. Multinodular goiter with a few small hypoechoic nodules bilaterally that are stable to smaller compared to 02/03/2012. Electronically signed by: Franco Bucio Jr., M.D. us Emerson Allen MD [facility] US PROCEDURES Final Res ult documented in this encounter Visit Diagnoses Diagnosis Dyslipidemia- Primary Other and unspecified hyperlipidemia Gastroesophageal reflux disease without esophagitis Esophageal reflux Other migraine without status migrainosus, not intractable Need for vaccination Need for prophylactic vaccination and inoculation against unspecified single disease Thrush Candidiasis of mouth Thyroid nodule Nontoxic uninodular goiter Thyroid nodule Nontoxic uninodular goiter Dyslipidemia Other and unspecified hyperlipidemia Thyroid nodule Nontoxic uninodular goiter Encounter for screening colonoscopy documented in this encounter Discontinued Medications Medication Sig Discontinue Reason Start Date End Da te raNITIdine (ZANTAC) 150 mg tablet Take 150 mg by mouth. 07/06/2018 omeprazole (PriLOSEC) 40 mg capsuleIndications:Gastr oesophageal reflux disease without esophagitis Take 1 capsule (40 mg total) by mouth daily. Reorder 12/13/2017 07/06/2018 SUMAtriptan (IMITREX) 50 mg tabletIndications:Migrai ne TAKE 1 TABLET BY MOUTH EARLY POSSIBLE AFTER ONSET OF MIGRAINE. MAY REPEAT AFTER 2 HOURS IF HEADACHE RETURNS. Reorder 12/13/2017 07/06/2018 documented as of this encounter Historical Medications * This list may reflect changes made after this encounter. loratadine (CLARITIN) 10 mg tablet Take 1 tablet (10 mg total) by mouth daily 4 multivitamin capsule Take 1 capsule by mouth daily 4 fluticasone (FLONASE) 50 mcg/actuation nasal spray Administer 1 spray into each nostril daily. 9 albuterol HFA (PROVENTIL HFA,VENTOLIN HFA,PROAIR HFA) 90 mcg/actuation inhaler Inhale 2 puffs every 6 (six) hours as needed for wheezing. 9 added in this encounter Orders Immunization/Injection Count Last Ordered Date First Ordered Date FLU VACCINE QUAD PF 6M+ IM - FLUARIX / FLULAVAL 1 07/06/2018 documented in this encounter Care Teams Greenhouse Staff Relationship Specialty Start Date End Date Emreson Allen MD PCP - General 06/03/17 07/05/21 documented as of this encounter
--- OUTSIDE RECORDS SUMMARY | 2024-10-13 04:10 | XMS_ITS | Encounter Summary ---
Author Organization [facility] Address [address] [place] [address] Care Team Providers Care Software Product Specialist Name Role Phone Emerson Allen MD Primary Care Provider [phone] Phoenix Loredo MD Unavailable [phone] Encounter Details Date Type Department Care Team (Late st Contact Info) Description 02/20/2020 Telephone [facility] [address] [place] [address] Emerson Allen MD [facility]2 [facility] [address] [place] [address] Social History Tobacco Use Types [...] file 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 * Telephone Encounter - Emerson Allen MD - 02/20/2020 1:53 PM CDT I've sent pepcid * Telephone Encounter - Tamika Freeman MA - 02/20/2020 1:24 PM CDT Kimber contacted the office she is currently taking Ranitidine 300mg, it is now off the market. She states she previously received it from Dr. Rooney however he is no longer practicing, and they advised she contact our office for something new. documented in this encounter Plan of Treatment Upcoming Encounters Date Type Department Care Team (Late st Contact Info) Description 02/04/2025 9:30 AM CDT Hospital Encounter [address] [address] Vic Gaines, DO [address] [address] 02/04/2025 9:30 AM CDT - 02/04/2025 10:00 AM CDT Surgery [address] [address] Vic Gaines, DO 3 [facility] [address] [place] [address] COLONOSCOPY Scheduled Procedures Name Priority Associated Diagnoses Date/Ti me COLONOSCOPY Encounter for screening colonoscopy 02/04/2025 9:30 AM CDT documented as of this encounter Visit Diagnoses Not on filedocumented in this encounter Discontinued Medications Medication Sig Discontinue Reason Start Date End Da te raNITIdine (ZANTAC) 300 mg tablet Take 1 tablet (300 mg total) by mouth 2 (two) times a day Other 05/20/2019 02/20/2020 documented as of this encounter Care Teams Software Product Specialist Relationship Specialty Start Date End Date Emerson Allen MD PCP - General 06/03/17 07/05/21 Phoenix Loredo MD Consulting Physician Cardiology 01/04/19 documented as of this encounter
--- OUTSIDE RECORDS SUMMARY | 2024-10-13 04:10 | XMS_ITS | Encounter Summary ---
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 [address] [place] [address] Gastonharleen Vic AgeeChamp, DO 3 [facility] [place] [address] [place] [address] COLONOSCOPY Scheduled Procedures Name Priority Associated Diagnoses Date/Ti me COLONOSCOPY Encounter for screening colonoscopy 02/04/2025 9:30 AM CDT documented as of this encounter Procedures Procedure Name Priority Date/Time Associated Diagnosis Comments EGFR Routine 12/29/2018 7:18 AM CDT Dyslipidemia DIFFERENTIAL AUTO Routine 12/29/2018 7:1 8 AM CDT Dyslipidemia THYROID FUNCTION CASCADE Routine 12/29/2018 7:18 AM CDT Thyroid nodule CBC WITH AUTO DIFFERENTIAL Routine 12/29/2018 7:18 AM CDT Dyslipidemia LIPID PANEL Routine 12/29/2018 7:18 AM CDT Dyslipidemia COMPREHENSIVE METABOLIC PANEL Routine 12/29/2018 7:18 AM CDT Dyslipidemia documented in this encounter Results * eGFR (12/29/2018 7:18 AM CDT) eGFR 99 mL/min/1.7 3 m2 [facility] ([place]) Comment: Interpretive Data Reference Interval Normal ?>/= [...] was last reviewed 2016. Blood specimen (specimen) 12/29/2018 7:18 AM CDT 12/29/2018 8:31 AM CDT Narrative [facility] ([place]) - 12/29/2018 9:06 AM CDT us Emerson Allen MD LAB BLOOD ORDERABLES Final Result [facility] ([place]) [address] [facility] [place] [address] * Differential, auto (12/29/2018 7:18 AM CDT) Neutrophil abs 5.2 1.7 - 6.5 K/cumm [facility] ([place]) Imm gran abs 0.0 0.0 - 0.1 K/cumm [facility] ([place]) Lymphocyte abs 2.5 0.8 - 3.3 K/cumm [facility] ([place]) Monocyte abs 0.6 0.2 - 0.8 K/cumm [facility] ([place]) Eosinophil abs 0.1 0.0 - 0.5 K/cumm [facility] ([place]) Basophil abs 0.0 0.0 - 0.1 K/cumm [facility] ([place]) Neutrophil pct 60.9 % [facility] ([place]) Comment: Interpretive Data Percent cell count reference ranges are not reported, since discordance with absolute values may lead to misinterpretation of CBC data. Current Interpretive Data was last revised on 2018. Imm gran pct 0.6 % [facility] ([place]) Comment: Interpretive Data Percent cell count reference ranges are not reported, since discordance with absolute values may lead to misinterpretation of CBC data. Current Interpretive Data was last revised on 2018. Lymphocyte pct 29.2 % [facility] ([place]) Comment: Interpretive Data Percent cell count reference ranges are not reported, since discordance with absolute values may lead to misinterpretation of CBC data. Current Interpretive Data was last revised on 2018. Monocyte pct 7.7 % [facility] ([place]) Comment: Interpretive Data Percent cell count reference ranges are not reported, since discordance with absolute values may lead to misinterpretation of CBC data. Current Interpretive Data was last revised on 2018. Eosinophil pct 1.4 % [facility] ([place]) Comment: Interpretive Data Percent cell count reference ranges are not reported, since discordance with absolute values may lead to misinterpretation of CBC data. Current Interpretive Data was last revised on 2018. Basophil pct 0.2 % [facility] ([place]) Comment: Interpretive Data Percent cell count reference ranges are not reported, since discordance with absolute values may lead to misinterpretation of CBC data. Current Interpretive Data was last revised on 2018. Blood specimen (specimen) 12/29/2018 7:18 AM CDT 12/29/2018 8:31 AM CDT Narrative [facility] ([place]) - 12/29/2018 8:36 AM CDT us Emerson Allen MD LAB BLOOD ORDERABLES Final Result [facility] ([place]) [address] [facility] [place] [address] * TSH reflex to free T4 (12/29/2018 7:18 AM CDT) TSH 1.28 0.30 - 4.20 mcIUnit/mL [facility] ([place]) Blood specimen (specimen) 12/29/2018 7:18 AM CDT 12/29/2018 8:31 AM CDT Narrative [facility] ([place]) - 12/29/2018 9:06 AM CDT us Emerson Allen MD LAB BLOOD ORDERABLES Final Result [facility] ([place]) [address] [facility] [place] [address] * CBC with auto differential (12/29/2018 7:18 AM CDT) WBC 8.5 3.8 - 9.9 K/cumm [facility] ([place]) Hgb 13.3 11.9 - 15.5 g/dL [facility] ([place]) Hct 40.5 35.6 - 45.5 % [facility] ([place]) Plt 251 150 - 400 K/cumm [facility] ([place]) MPV 10.2 9.1 - 12.3 fL [facility] ([place]) RBC 4.54 3.90 - 5.20 M/cumm [facility] ([place]) MCV 89.2 81.3 - 96.4 fL [facility] ([place]) MCH 29.3 27.1 - 33.3 pg [facility] ([place]) MCHC 32.8 32.3 - 35.7 g/dL [facility] ([place]) RDW CV 13.8 11.1 - 14.9 % [facility] ([place]) RDW SD 45.2 35.7 - 48.1 fL [facility] ([place]) NRBC abs 0.00 0.00 - 0.01 K/cumm [facility] ([place]) Blood specimen (specimen) 12/29/2018 7:18 AM CDT 12/29/2018 8:31 AM CDT Narrative [facility] ([place]) - 12/29/2018 8:36 AM CDT us Emerson Allen MD LAB BLOOD ORDERABLES Final Result [facility] ([place]) [address] [facility] [place] [address] * Comprehensive metabolic panel (12/29/2018 7:18 AM CDT) Sodium 141 135 - 145 mmol/L [facility] ([place]) Potassium, pl 4.2 3.3 - 4.9 mmol/L [facility] ([place]) Chloride 106 97 - 110 mmol/L [facility] ([place]) CO2 22 22 - 32 mmol/L [facility] ([place]) Anion gap 13 2 - 15 mmol/L [facility] ([place]) BUN 10 8 - 25 mg/dL [facility] ([place]) Creatinine 0.69 0.60 - 1.10 mg/dL [facility] ([place]) [...] ORDERABLES Final Result [facility] ([place]) [address] [facility] [place] [address] * Lipid panel (12/29/2018 7:18 AM CDT) Cholesterol 146 30 - 199 mg/dL [facility] ([place]) Comment: Interpretive Data Ages < or [...] 2018. LDL, calculated 82 <=129 mg/dL [facility] ([place]) Comment: Interpretive [...] on 2018. Chol/HDL ratio 4 [facility] ([place]) Blood specimen (specimen) 12/29/2018 7:18 AM CDT 12/29/2018 8:31 AM CDT Narrative [facility] ([place]) - 12/29/2018 9:06 AM CDT Emerson Allen MD LAB BLOOD ORDERABLES Final Result Performing Organization Address City/State/[facility] Co ar Phone Number [facility] ([place]) [address] [facility] Department [place] [address] documented in this encounter Visit Diagnoses Diagnosis Dyslipidemia Other and unspecified hyperlipidemia Thyroid nodule Nontoxic uninodular goiter Encounter for screening colonoscopy documented in this encounter Care Teams Investment Underwriter Relationship Specialty Start Date End Date Emerson Allen MD PCP - General 06/03/17 07/05/21 documented as of this encounter
--- OUTSIDE RECORDS SUMMARY | 2024-10-13 04:10 | XMS_ITS | Encounter Summary ---
Author Organization [facility] Facility Care Team Providers Care Press Clippings Cutter And Paster Name Role Phone Emerson Allen MD Primary Care Provider [phone] Phoenix Loredo MD Unavailable [phone] Encounter Details Date Type Department Care Team (Latest Contact Info) Description 01/04/2019 Travel Social History Tobacco Use Types Packs/Day Years Used Date Smoking Tobacco: Every Day Cigarettes Smokeless Tobacco: Never Comments:Smoking History Pac ks/day: 0.5 Packs Alcohol Use Standard Drinks/Week Comments No 0 (1 standard drink = 0.6 oz pur e alcohol) Comments No Sex and Gender Information Value Date Recorded Sex Assigned at Not on file 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 Gender Identity Not on file Sexual Orientation Not on file documented as of this encounter Plan of Treatment Upcoming Encounters Date Type Department Care Team (Late st Contact Info) Description 02/04/2025 9:30 AM CDT Hospital Encounter [address] [address] Vic Gaines, DO 3 [facility] [address] [place] [address] 02/04/2025 9:30 AM CDT - 02/04/2025 10:00 AM CDT Surgery [address] [address] Vic Gaines, DO [address] [address] COLONOSCOPY Scheduled Procedures Name Priority Associated Diagnoses Date/Ti me COLONOSCOPY Encounter for screening colonoscopy 02/04/2025 9:30 AM CDT documented as of this encounter Visit Diagnoses Not on filedocumented in this encounter Care Teams Press Clippings Cutter And Paster Relationship Specialty Start Date End Date Emerson Allen MD PCP - General 06/03/17 07/05/21 Phoenix Loredo MD Consulting Physician Cardiology 01/04/19 documented as of this encounter
--- OUTSIDE RECORDS SUMMARY | 2024-10-13 04:10 | XMS_ITS | Encounter Summary ---
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 Gender Identity Not on file Sexual Orientation Not on file documented as of this encounter Plan of Treatment Upcoming Encounters Date Type Department Care Team (Late st Contact Info) Description 02/04/2025 9:30 AM CDT Hospital Encounter [address] [address] Vic Gaines, DO [address] [address] 02/04/2025 9:30 AM CDT - 02/04/2025 10:00 AM CDT Surgery [address] [address] Vic Gaines, DO 3 [facility] [address] [place] [address] COLONOSCOPY Scheduled Procedures Name Priority Associated Diagnoses Date/Ti me COLONOSCOPY Encounter for screening colonoscopy 02/04/2025 9:30 AM CDT documented as of this encounter Visit Diagnoses Not on filedocumented in this encounter Care Teams Generation Technician Relationship Specialty Start Date End Date Emerson Allen MD PCP - General 06/03/17 07/05/21 Phoenix Loredo MD Consulting Physician Cardiology 01/04/19 documented as of this encounter
--- OUTSIDE RECORDS SUMMARY | 2024-10-13 04:10 | XMS_ITS | Encounter Summary ---
Author Organization [facility] Address [address] [place] [id number] Care Team Providers Care Construction Lineman Name Role Phone Emerson Allen MD Primary Care Provider [phone] Phoenix Loredo MD Unavailable [phone] Reason for Visit * Reason Comments Cough barking , onset Sinus Problem parasinus, right Encounter Details Date Type Department Care Team (Late st Contact Info) Description 10/19/2019 11:15 AM STALLION MANAGER Office Visit [facility] [address] [place] [address] Miguel Sanders NP [address] [place] [address] Bronchitis (Primary Dx); Acute maxillary sinusitis, recurrence not specified Social History Tobacco Use Types Packs/Day Years [...] on file Legal Sex Female 8:44 AM STALLION MANAGER Gender Identity Not on file Sexual Orientation Not on file documented as of this encounter Last Filed Vital Signs Vital Sign Reading Time Taken Comments Blood Pressure 120/74 10/19/2019 11:11 AM STALLION MANAGER Pulse 93 10/19/2019 11:11 AM STALLION MANAGER Temperature 37 ??C (98.6 ??F) 10/19/2019 11:11 AM STALLION MANAGER Respiratory Rate 20 10/19/2019 11:11 AM STALLION MANAGER Oxygen Saturation 97% 10/19/2019 11:11 AM STALLION MANAGER Inhaled Oxygen Concentration - - Weight 68.9 kg (152 lb) 10/19/2019 11:11 AM STALLION MANAGER Height 152.4 cm (5') 10/19/2019 11:11 AM STALLION MANAGER Body Mass Index 29.69 10/19/2019 11:11 AM STALLION MANAGER documented in this encounter Patient Instructions * Patient Instructions* Miguel Sanders, FEDER[employer] JAVA DEVELOPER - 10/19/2019 11:15 AM STALLION MANAGER Images from the original note were not included. Complete the antibiotic as directed. Take an OTC decongestant for congestion or an antihistamine such as Benadryl 25mg or Claritin 10mg for a runny nose. Use OTC Flonase as directed, nose to toes andcross your heart. Drink plenty of fluid and follow up with your PCP if 3-5 days if you are not getting any better. Patient Education Rhinosinusitis WHAT YOU NEED TO KNOW: What is rhinosinusitis? Rhinosinusitis (RS) is inflammation in your nasal passages and sinuses. It commonly begins as a virus, often as a common cold. Viruses usually last 7 to 10 days and do not need treatment. When the virus does not get better on its own, you may have bacterial RS. This means that bacteria have begun to grow inside your sinuses. Acute RS lasts less than 4 weeks. Chronic RS lasts more than 12 weeks. Recurrent RS is when you have 4 or more episodes of RS in 1 year. What are the signs and symptoms of rhinosinusitis? Your signs and symptoms may be worse when you lie on your back or try to sleep. You may have any of the following: ?? Stuffy nose and reduced sense of smell ?? Runny nose with thick yellow or green mucus ?? Pressure or pain on your face or a headache ?? Pain in your teeth or bad breath ?? Ear pain or pressure ?? Fever or cough ?? Tiredness How is rhinosinusitis diagnosed? Your healthcare provider will feel your sinuses and look in your eyes, nose, mouth, and ears. He will ask you about your symptoms and how long you have had them. Tellhim if your symptoms have gotten better or worse since they began. A sample of the mucus from your nose may show what germ is causing your infection. If you have chronic RS, you may need imaging tests. How is rhinosinusitis treated? Your symptoms usually go away on their own. You may need any of the following: ?? Acetaminophen decreases pain and fever. It is available without a doctor's order. Ask how much to take and how often to take it. Follow directions. Acetaminophen can cause liver damage if not taken correctly. ?? NSAIDs , such as ibuprofen, help decrease swelling, pain, and fever. This medicine is available with or without a doctor's order. NSAIDs can cause stomach bleeding or kidney problems in certain people. If you take blood thinner medicine, always ask your healthcare provider if NSAIDs are safe foryou. Always read the medicine label and follow directions. ?? Nasal steroid sprays decrease inflammation in your nose and sinuses. ?? Decongestants reduce swelling and drain mucus in the nose and sinuses. They may help you breatheeasier. ?? Antihistamines dry mucus in the nose and relieve sneezing. ?? Antibiotics treat a bacterial infection and may be needed if your symptoms do not improve or they get worse. How can I manage my symptoms? ?? Rinse your sinuses. Use a sinus rinse device to rinse your nasal passages with a saline (salt water) solution. This will help thin the mucus in your nose and rinse away pollen and dirt. It will also help reduce swelling so you can breathe normally. Ask your healthcare provider how often to do this. ?? Breathe in steam. Heat a bowl of water until you see steam. Lean over the bowl and make a tent over your head with a large towel. Breathe deeply for about 20 minutes. Be careful not to get too close to the steam or burn yourself. Do this 3 times a day. You can also breathe deeply when you take ahot shower. ?? Sleep with your head elevated. Place an extra pillow under your head before you go to sleep to help your sinuses drain. ?? Drink liquids as directed. Ask your healthcare provider how much liquid to drink each day and which liquids are best for you. Liquids will thin the mucus in your nose and help it drain. Avoid drinks that contain alcohol or caffeine. ?? Do not smoke, and avoid secondhand smoke. Nicotine and other chemicals in cigarettes and cigars can make your symptoms worse. Ask your healthcare provider for information if you currently smoke and need help to quit. E-cigarettes or smokeless tobacco still contain nicotine. Talk to your healthcare provider before you use these products. When should I seek immediate care? ?? Your eye and eyelid are red, swollen, and painful. ?? You cannot open your eye. ?? You have double vision or you cannot see. ?? Your eyeball bulges out or you cannot move your eye. ?? You are more sleepy than normal, or you notice changes in your ability to think, move, or talk. ?? You have a stiff neck, a fever, or a bad headache. ?? You have swelling of your forehead or scalp. When should I contact my healthcare provider? ?? Your symptoms are worse or do not improve after 3 to 5 days of treatment. ?? You have questions or concerns about your condition or care. CARE AGREEMENT: You have the right to help plan your care. Learn about your health condition and how it may be treated. Discuss treatment options with your caregivers to decide what care you want to receive. You always have the right to refuse treatment. The above information is an braiding machine operator only. It is not intended as medical advice for individual conditions or treatments. Talk to your doctor, nurse or pharmacist before following any medical regimen to see if it is safe and effective for you. ?? 2017 [employer] Information is for End User's use only and may not be sold, redistributed or otherwise used for commercial purposes. All illustrations and images included in CareNotes?? are the copyrighted property of [employer] or [employer]. Patient Education Acute Bronchitis WHAT YOU NEED TO KNOW: What is acute bronchitis? Acute bronchitis is swelling and irritation in the air passages of your lungs. This irritation may cause you to cough or have other breathing problems. Acute bronchitis often starts because of another illness, such as a cold or the flu. The illness spreads from your nose and throat to your windpipe and airways. Bronchitis is often called a chest cold. Acute bronchitis lasts about 3 to 6 weeks and is usually not a serious illness. What causes acute bronchitis? ?? Infection caused by a virus, bacteria, or a fungus ?? Polluted air caused by chemical fumes, dust, smoke, allergens, or pollution What increases my risk for acute bronchitis? ?? Age, usually older adults ?? Smoking cigarettes or being around cigarette smoke ?? Chronic lung diseases or chronic sinus infections ?? Weakened immune system ?? Gastroesophageal reflux disease ?? Allergies and environmental changes What are the signs and symptoms of acute bronchitis? ?? A cough with sputum that may be clear, yellow, or green ?? Feeling more tired than usual, and body aches ?? A fever and chills ?? Wheezing when you breathe ?? A tight chest or pain when you breathe or cough How is acute bronchitis diagnosed? Your healthcare provider may diagnose bronchitis by your symptoms. If he is not sure, you may need the following: ?? Blood tests will be done to see if your symptoms are caused by an infection. ?? X-ray pictures of your lungs and heart may show signs of infection, such as pneumonia. Chest x-rays may also show fluid around your heart and lungs. How is acute bronchitis treated? Your healthcare provider will treat any condition that has caused your acute bronchitis. He may also give you any of the following: ?? Ibuprofen or acetaminophen are medicines that help lower your fever. They are available without a doctor's order. Ask your healthcare provider which medicine is right for you. Ask how much to takeand how often to take it. Follow directions. These medicines can cause stomach bleeding if not taken correctly. Ibuprofen can cause kidney damage. Do not take ibuprofen if you have kidney disease, anulcer, or allergies to aspirin. Acetaminophen can cause liver damage. Do not take more than 4,000 milligrams in 24 hours. ?? Decongestants help loosen mucus in your lungs and make it easier to cough up. This can help you breathe easier. ?? Cough suppressants decrease your urge to cough. If your cough produces mucus, do not take a cough suppressant unless your healthcare provider tells you to. Your healthcare provider may suggest that you take a cough suppressant at night so you can rest. ?? Inhalers may be given. Your healthcare provider may give you one or more inhalers to help you breathe easier and cough less. An inhaler gives your medicine to open your airways. Ask your healthcare provider to show you how to use your inhaler correctly. How can I care for myself when I have acute bronchitis? ?? Get more rest. Rest helps your body to heal. Slowly start to do more each day. Rest when you feel it is needed. ?? Avoid irritants in the air. Avoid chemicals, fumes, and dust. Wear a face mask if you must work around dust or fumes. Stay inside on days when air pollution levels are high. If you have allergies,stay inside when pollen counts are high. Do not use aerosol products, such as spray-on deodorant, bug spray, and hair spray. ?? Do not smoke or be around others who smoke. Nicotine and other chemicals in cigarettes and cigars damages the cilia that move mucus out of your lungs. Ask your healthcare provider for information if you currently smoke and need help to quit. E-cigarettes or smokeless tobacco still contain nicotine. Talk to your healthcare provider before you use these products. ?? Drink liquids as directed. Liquids help keep your air passages moist and help you cough up mucus. You may need to drink more liquids when you have acute bronchitis. Ask how much liquid to drink each day and which liquids are best for you. ?? Use a humidifier or vaporizer. Use a cool mist humidifier or a vaporizer to increase air moisture in your home. This may make it easier for you to breathe and help decrease your cough. How can I decrease my risk for acute bronchitis? ?? Get the vaccinations you need. Ask your healthcare provider if you should get vaccinated againstthe flu or pneumonia. ?? Prevent the spread of germs. You can decrease your risk of acute bronchitis and other illnesses by doing the following: ?? Wash your hands often with soap and water. Carry germ-killing hand lotion or gel with you. You can use the lotion or gel to clean your hands when soap and water are not available. ?? Do not touch your eyes, nose, or mouth unless you have washed your hands first. ?? Always cover your mouth when you cough to prevent the spread of germs. It is best to cough into a tissue or your shirt sleeve instead of into your hand. Ask those around you cover their mouths when they cough. ?? Try to avoid people who have a cold or the flu. If you are sick, stay away from others as much as possible. When should I seek immediate care? ?? You cough up blood. ?? Your lips or fingernails turn blue. ?? You feel like you are not getting enough air when you breathe. When should I contact my healthcare provider? ?? You have a fever. ?? Your breathing problems do not go away or get worse. ?? Your cough does not get better within 4 weeks. ?? You have questions or concerns about your condition or care. CARE AGREEMENT: You have the right to help plan your care. Learn about your health condition and how it may be treated. Discuss treatment options with your caregivers to decide what care you want to receive. You always have the right to refuse treatment. The above information is an braiding machine operator only. It is not intended as medical advice for individual conditions or treatments. Talk to your doctor, nurse or pharmacist before following any medical regimen to see if it is safe and effective for you. ?? 2017 [employer] Information is for End User's use only and may not be sold, redistributed or otherwise used for commercial purposes. All illustrations and images included in CareNotes?? are the copyrighted property of [employer] or [employer]. LION MANAGER LION MANAGER documented in this encounter Ordered Prescriptions Prescription Sig Dispense Quantity Refills Last Filled Start Date End Date amoxicillin-clavul anate (AUGMENTIN) 875-125 mg per tabletIndications: Acute maxillary sinusitis, recurrence not specified Take 1 tablet by mouth 2 (two) times a day for 7 days 14 tablet 10/19/2019 10/26/2019 predniSONE (DELTASONE) 20 mg tabletIndications: Bronchitis Take 1 tablet (20 mg) by mouth 2 (two) times a day for 5 days 10 tablet 10/19/2019 10/24/2019 documented in this encounter Progress Notes * Miguel Sanders NP - 10/19/2019 11:15 AM CST Subjective Patient ID: Mritha Cherry is a 54 y.o. female. Cough ( barking , onset 10/03) and Sinus Problem (parasinus, right ) [place] in room with FEDERAL JAVA DEVELOPER. Patient is experiencing a cough and parasinus. Onset 10/03/2019. Pain right maxillary area Cough This is a new problem. The current episode started 1 to 4 weeks ago. The problem has been graduallyworsening. The cough is non-productive. Associated symptoms include headaches and wheezing (none now using her inhaler as needed). Pertinent negatives include no chills, fever or myalgias. There is no history of environmental allergies. Sinus Problem This is a recurrent problem. The current episode started 1 to 4 weeks ago. The problem has been gradually worsening since onset. There has been no fever. Her pain is at a severity of 3/10. Associatedsymptoms include coughing, headaches and sinus pressure. Pertinent negatives include no chills or congestion. Past treatments include saline sprays and oral decongestants. The treatment provided mildrelief. Review of Systems Constitutional: Positive for activity change and fatigue. Negative for chills and fever. HENT: Positive for sinus pressure and sinus pain. Negative for congestion. Respiratory: Positive for cough and wheezing (none now using her inhaler as needed). Negative for chest tightness. Musculoskeletal: Negative for arthralgias and myalgias. Skin: Negative for color change. Allergic/Immunologic: Negative for environmental allergies. Neurological: Positive for headaches. Psychiatric/Behavioral: Negative for behavioral problems. Objective Physical Exam Vitals signs and nursing note reviewed. Constitutional: Appearance: She is well-developed. HENT: Head: Normocephalic. Right Ear: Hearing and ear canal normal. Left Ear: Hearing, tympanic membrane and ear canal normal. Nose: Congestion present. Right Sinus: Maxillary sinus tenderness present. Mouth/Throat: Lips: Elizabeth. Mouth: Mucous membranes are moist. Pharynx: Oropharynx is clear. Eyes: Conjunctiva/sclera: Conjunctivae normal. Pupils: Pupils are equal, round, and reactive to light. Neck: Musculoskeletal: Normal range of motion and neck supple. Cardiovascular: Rate and Rhythm: Normal rate and regular rhythm. Heart sounds: Normal heart sounds. Pulmonary: Effort: Pulmonary effort is normal. Breath sounds: Normal breath sounds. Musculoskeletal: Normal range of motion. Skin: General: Skin is warm and dry. Findings: No erythema or rash. Neurological: Mental Status: She is alert and oriented to person, place, and time. Vitals: 10/19/19 1111 BP: 120/74 BP Location: Left arm Patient Position: Sitting Pulse: 93 Resp: 20 Temp: 37 ??C (98.6 ??F) TempSrc: Oral SpO2: 97% Weight: 68.9 kg (152 lb) Height: 152.4 cm (5') Assessment/Plan Complete the antibiotic as directed. Take an OTC decongestant for congestion or an antihistamine such as Benadryl 25mg or Claritin 10mg for a runny nose. Use OTC Flonase as directed, nose to toes andcross your heart. Drink plenty of fluid and follow up with your PCP if 3-5 days if you are not getting any better. Diagnoses and all orders for this visit: Bronchitis (Primary) - predniSONE (DELTASONE) 20 mg tablet; Take 1 tablet (20 mg) by mouth 2 (two) times a day for 5 days Acute maxillary sinusitis, recurrence not specified - amoxicillin-clavulanate (AUGMENTIN) 875-125 mg per tablet; Take 1 tablet by mouth 2 (two) times aday for 7 days No notes on file Disposition- Discussed medications dosages, usage & potential [...] in agreement with the plan of care LION MANAGER documented in this encounter Plan of Treatment Upcoming Encounters Date Type Department Care Team (Late st Contact Info) Description 02/04/2025 9:30 AM CDT Hospital Encounter [address] [address] Vic Gaines, DO 3 [facility] [place] [address] [address] 02/04/2025 9:30 AM CDT - 02/04/2025 10:00 AM CDT Surgery [address] [address] Vic Gaines, DO 3 [facility] [address] [place] [address] COLONOSCOPY Scheduled Procedures Name Priority Associated Diagnoses Date/Ti me COLONOSCOPY Encounter for screening colonoscopy 02/04/2025 9:30 AM CDT documented as of this encounter Visit Diagnoses Diagnosis Bronchitis- Primary Bronchitis, not specified as acute or chronic Acute maxillary sinusitis, recurrence not specified Encounter for screening colonoscopy documented in this encounter Care Teams Construction Lineman Relationship Specialty Start Date End Date Emerson Allen MD PCP - General 06/03/17 07/05/21 Phoenix Loredo MD Consulting Physician Cardiology 01/04/19 documented as of this encounter
--- OUTSIDE RECORDS SUMMARY | 2024-10-13 04:10 | XMS_ITS | Encounter Summary ---
Author Organization [facility] Address [address] [place] [address] Care Team Providers Care Brass And Wind Instrument Repairer Name Role Phone Emerson Allen MD Primary Care Provider [phone] Phoenix Loredo MD Unavailable [phone] Reason for Visit * Reason Comments Rash Pt c/o a rash on her hands Onset had for years Encounter Details Date Type Department Care Team (Late st Contact Info) Description 04/27/2019 1:15 PM CDT Office Visit [facility] [address] [place] [address] Miguel Sanders NP [address] [place] [address] Eczema of both hands (Primary Dx) Social History Tobacco Use Types Packs/Day Years Used Date Smoking Tobacco: Every Day Cigarettes Smokeless Tobacco: Never Comments:Smoking History Pac ks/day: 0.5 Packs Alcohol Use Standard Drinks/Week Comments No 0 (1 standard drink = 0.6 oz pur e alcohol) Comments No Sex and Gender Information Value Date Recorded Sex Assigned at Not on file 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 Gender Identity Not on file Sexual Orientation Not on file documented as of this encounter Last Filed Vital Signs Vital Sign Reading Time Taken Comments Blood Pressure 118/82 04/27/2019 1:06 PM CDT Pulse 84 04/27/2019 1:06 PM CDT Temperature 36.8 ??C (98.3 ??F) 04/27/2019 1:06 PM CD T Respiratory Rate 16 04/27/2019 1:06 PM CDT Oxygen Saturation 97% 04/27/2019 1:06 PM CDT Inhaled Oxygen Concentration - - Weight 73.5 kg (162 lb) 04/27/2019 1:06 PM CDT Height 152.4 cm (5') 04/27/2019 1:06 PM CDT Body Mass Index 31.64 04/27/2019 1:06 PM CDT documented in this encounter Patient Instructions * Patient Instructions* Miguel Sanders, SLITTING 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 - 04/27/2019 1:15 PM CDT Use the topical cream as directed. Follow up with PCP if not improving. Patient Education Dyshidrotic Eczema WHAT YOU NEED TO KNOW: What is dyshidrotic eczema? Dyshidrotic eczema is a recurrent skin rash with small fluid-filled blisters. The blisters appear on palms of your hands, on the sides of your fingers, and soles of your feet. The exact cause is unknown. Your risk may be increased if you have allergies, you smoke, or have other skin conditions, such as atopic dermatitis. Your risk may also increase if you eat a diet high in metal salts. Foods such as mushrooms, chocolate and coffee contain metal salts. What are the signs and symptoms of dyshidrotic eczema? ?? Burning, itching, or pain in the blister areas ?? Open blisters that are reddened and itch ?? Peeling or thickened skin in the area of previous blisters How is dyshidrotic eczema treated? Treatment will depend on how severe your rash is. Your rash may heal without treatment. You may need medicine to help decrease itching and how long you have a rash.This medicine may be a pill or cream. You may also need medicine to treat an infection. Your healthcare provider may put a dressing on the blisters to keep bacteria from getting in them. You may need ultraviolet light therapy if the medicated cream does not help. How can I manage my symptoms? ?? Do not scratch your rash. Bacteria from your fingernails may enter your open sores during scratching and cause an infection. ?? Use moisturizes or emollients, such as petroleum jelly. These help relieve itching and help prevent bacteria from getting in your sores. If you have a doctor's order for medicated cream, apply that first. Then apply the moisturizer or emollient on top. ?? Wear cotton socks and gloves. Cotton keeps your rash dry, which helps with itching. Gloves and socks help your medicated cream work better. ?? Ask your healthcare provider how often you should wash your hands. You may need to wash them less often while they heal. Do not use hand heat curer with ethyl alcohol. ?? Ask your healthcare provider if you need allergy testing. Allergy testing may help identify whattriggers your eczema. How can I help prevent my rash from returning? ?? Identify and avoid possible triggers. ?? Avoid sweating more than normal. ?? Find ways to handle stress. ?? Decrease the amount of metal salts in your diet. Avoid onions, tomatoes, beans and beer. Ask your healthcare provider what other foods you should avoid. ?? Do not smoke. If you smoke, it is never too late to quit. Ask for information if you need help quitting. When should I contact my healthcare provider? ?? The area of your rash is swollen, painful, draining fluid, and feels hot. ?? The blisters have yellow crust on them. ?? You have questions or concerns about your condition or care. CARE AGREEMENT: You have the right to help plan your care. Learn about your health condition and how it may be treated. Discuss treatment options with your caregivers to decide what care you want to receive. You always have the right to refuse treatment. The above information is an physical therapy aide only. It is not intended as medical advice for individual conditions or treatments. Talk to your doctor, nurse or pharmacist before following any medical regimen to see if it is safe and effective for you. ?? 2017 [employer] Information is for End User's use only and may not be sold, redistributed or otherwise used for commercial purposes. All illustrations and images included in CareNotes?? are the copyrighted property of [employer] or [employer]. documented in this encounter Ordered Prescriptions Prescription Sig Dispense Quantity Refills Last Filled Start Date End Date pimecrolimus (ELIDEL) 1 % creamIndications:E czema of both hands Apply topically 2 (two) times a day 30 g 1 04/27/2019 3 documented in this encounter Progress Notes * Miguel Sanders NP - 04/27/2019 1:15 PM CDT Images from the original note were not included. Subjective/Objective Patient ID: Mirtha Cherry is a 54 y.o. female. Chief Complaint Rash (Pt c/o a rash on her hands Onset had for years) Eczema of hands for the past 3-4 weeks has a cream Review of Systems Constitutional: Negative for activity change and fatigue. HENT: Negative for congestion. Respiratory: Positive for chest tightness. Cardiovascular: Negative for chest pain. Gastrointestinal: Negative for abdominal pain. Musculoskeletal: Negative for arthralgias and myalgias. Skin: Positive for rash (hands). Allergic/Immunologic: Positive for environmental allergies. Neurological: Negative for headaches. Psychiatric/Behavioral: Negative for confusion. Physical Exam Constitutional: She is oriented to person, place, and time. She appears well- developed and well-nourished. HENT: Head: Normocephalic. Eyes: Conjunctivae are normal. Neck: Normal range of motion. Neck supple. Cardiovascular: Normal rate, regular rhythm and normal heart sounds. Pulmonary/Chest: Effort normal and breath sounds normal. Abdominal: Soft. Musculoskeletal: Normal range of motion. Neurological: She is alert and oriented to person, place, and time. Skin: Skin is warm and dry. Rash noted. Rash is papular. No erythema. History of eczema of the hands and triamcinolone does not work on it Psychiatric: She has a normal mood and affect. Nursing note and vitals reviewed. Vitals: 04/27/19 1306 BP: 118/82 BP Location: Left arm Patient Position: Sitting Pulse: 84 Resp: 16 Temp: 36.8 ??C (98.3 ??F) TempSrc: Oral SpO2: 97% Weight: 73.5 kg (162 lb) Height: 152.4 cm (5') Assessment/Plan Use the topical cream as directed. Follow up with PCP if not improving. Diagnoses and all orders for this visit: Eczema of both hands (Primary) - pimecrolimus (ELIDEL) 1 % cream; Apply topically 2 (two) times a day No notes on file Written Information was given to patient regarding diagnosis and treatment. Disposition- Discussed medications dosages, usage & potential side effects. Red flags reviewed.Patient has been instructed to follow up w PCP or go to ER for any signs or symptoms that are of concern or worsening. Patient verbalizes understanding. The patient was given the opportunity to ask all questions and to have all questions answered. Patient is in agreement with the plan of care Miguel Sanders NP documented in this encounter Plan of Treatment Upcoming Encounters Date Type Department Care Team (Late st Contact Info) Description 02/04/2025 9:30 AM CDT Hospital Encounter [address] [address] Vic Gaines, DO 3 [facility] [place] [address] [place] [address] 02/04/2025 9:30 AM CDT - 02/04/2025 10:00 AM CDT Surgery [address] [address] Vic Gaines, DO 3 [facility] [address] [place] [address] COLONOSCOPY Scheduled Procedures Name Priority Associated Diagnoses Date/Ti me COLONOSCOPY Encounter for screening colonoscopy 02/04/2025 9:30 AM CDT documented as of this encounter Visit Diagnoses Diagnosis Eczema of both hands- Primary Encounter for screening colonoscopy documented in this encounter Care Teams Brass And Wind Instrument Repairer Relationship Specialty Start Date End Date Emerson Allen MD PCP - General 06/03/17 07/05/21 Phoenix Loredo MD Consulting Physician Cardiology 01/04/19 documented as of this encounter
--- OUTSIDE RECORDS SUMMARY | 2024-10-13 04:10 | XMS_ITS | Encounter Summary ---
Author Organization [facility] Address [address] [place] [address] Care Team Providers Care Industrial Management Teacher Name Role Phone Emerson Allen MD Primary Care Provider [phone] Phoneix Loredo MD Unavailable [phone] Encounter Details Date Type Department Care Team (Late st Contact Info) Description 06/24/2020 Telephone [facility] [address] [place] [address] Emerson Allen MD [facility] [address] [place] [address] Social History Tobacco Use Types [...] on file 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 * Telephone Encounter - Malia Rowley MA - 06/24/2020 9:44 AM CDT The patient called in and asked if she should get labs done before her appointment in December? I looked in her chart and I didn't see any. documented in this encounter Plan of Treatment Upcoming Encounters Date Type Department Care Team (Late st Contact Info) Description 02/04/2025 9:30 AM CDT Hospital Encounter [address] [address] Vic Gaines, DO [address] [place] [address] [place] [address] 02/04/2025 9:30 AM CDT - 02/04/2025 10:00 AM CDT Surgery [address] [address] Vic Gaines, DO [address] [place] [address] [place] [address] COLONOSCOPY Scheduled Procedures Name Priority Associated Diagnoses Date/Ti me COLONOSCOPY Encounter for screening colonoscopy 02/04/2025 9:30 AM CDT documented as of this encounter Results * (ABNORMAL) Lipid panel (04/10/2021 7:14 AM CDT) Cholesterol 157 30 - 199 mg/dL [facility] ([place]) Comment: Interpretive Data Ages < or = [...] on 2018. Triglycerides 196(H) <=149 mg/dL [facility] ([place]) Comment: Interpretive Data Ages < or = [...] on 2018. HDL 39(L) >=40 mg/dL [facility] ([place]) Comment: Interpretive [...] ORDERABLES Final Result [facility] ([place]) [address] [facility] [place] [address] * (ABNORMAL) Comprehensive metabolic panel (04/10/2021 7:14 [...] ORDERABLES Final Result [facility] ([place]) [address] [facility] [address] * (ABNORMAL) CBC with auto differential (04/10/2021 [...] ORDERABLES Final Result [facility] ([place]) 1 [facility] [address] documented in this encounter Visit Diagnoses Diagnosis Mixed hyperlipidemia- Primary Encounter for screening colonoscopy documented in this encounter Care Teams Industrial Management Teacher Relationship Specialty Start Date End Date Emerson Allen MD PCP - General 06/03/17 07/05/21 Phoenix Loredo MD Consulting Physician Cardiology 01/04/19 documented as of this encounter
--- OUTSIDE RECORDS SUMMARY | 2024-10-13 04:10 | XMS_ITS | Encounter Summary ---
Author Organization [facility] Address [address] [place] [address] Care Team Providers Care Oil Pipeline Operator Name Role Phone Emerson Allen MD Primary Care Provider [phone] Phoenix Loredo MD Unavailable [phone] Reason for Visit * Reason Comments Health Maintenance 6mo f/u Encounter Details Date Type Department Care Team (Latest Contact Info) Description 07/08/2019 8:30 AM CDT Office Visit [facility] [address] [place] [address] Emerson Allen MD [address] [facility] [address] [place] [address] Gastroesophageal reflux disease without esophagitis (Primary Dx); BMI 29.0-29.9,adult; Dyslipidemia; Allergic conjunctivitis of both eyes; Mild intermittent asthma without complication Social History Tobacco Use Types [...] on file 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 Gender Identity Not on file Sexual Orientation Not on file documented as of this encounter Last Filed Vital Signs Vital Sign Reading Time Taken Comments Blood Pressure 111/68 07/08/2019 8:25 AM CDT Pulse 53 07/08/2019 8:25 AM CDT Temperature - - Respiratory Rate - - Oxygen Saturation 96% 07/08/2019 8:25 AM CDT Inhaled Oxygen Concentration - - Weight 67.5 kg (148 lb 12.8 oz) 07/08/2019 8:25 AM CDT Height 152.4 cm (5') 07/08/2019 8:25 AM CDT Body Mass Index 29.06 07/08/2019 8:25 AM CDT documented in this encounter Patient Instructions * Patient Instructions* Emerson Allen MD - 07/08/2019 8:30 AM CDT Mirtha was seen today for health maintenance. Diagnoses and all orders for this visit: Gastroesophageal reflux disease without esophagitis Comments: has been switched to Zantac some word of a potential recall for OTC Zantac has been received; pharm will update no change otherwise BMI 29.0-29.9,adult Comments: improving nicely, down 11 lbs since May by our scale (?!) keep up activity, exercise Dyslipidemia Comments: HDL remains slightly low total, LDL cholesterol are controlled; liver function is normal fish oil recommended; continue Lipitor Allergic conjunctivitis of both eyes Comments: continue ophthalmic antihistamine and polytrim as prescribed by eye doctor. OTC options- I'm not sure if pataday is otc anymore, but generic otc brands may be present including Zatidor, B&L; I would check [employer] first for savings vouchers/cards however so we can stick with the eye doctor's plan Mild intermittent asthma without complication Comments: well controlled at current continue PRN rescue inhaler Other orders - Flu Vaccine Quad PF 6m+ IM - Fluarix / FluLaval / Afluria documented in this encounter Progress Notes * Emerson Allen MD - 07/08/2019 8:30 AM CDT Images from the original note were not included. Subjective/Objective Patient ID: Mirtha Cherry is a 54 y.o. female. Chief Complaint Health Maintenance (6mo f/u) She has been having more allergy problems lately, as she's been outside in the garden etc more often this summer. Her toaster operator stated her on allergy med and a course of polytrim. She is feelign fine overall, however. She exercises often, and is working on [employer] currently as well. Hyperlipidemia This is a chronic problem. She has no history of diabetes, hypothyroidism, liver disease or obesity. Pertinent negatives include no focal sensory loss, focal weakness, leg pain, myalgias or shortnessof breath. Current antihyperlipidemic treatment includes statins. Risk factors for coronary artery disease include post-menopausal and dyslipidemia. Asthma There is no chest tightness, cough, difficulty breathing, frequent throat clearing, hemoptysis, hoarse voice, shortness of breath, sputum production or wheezing. This is a chronic problem. The current episode started more than 1 year ago. The problem occurs rarely. The problem has been unchanged. Associated symptoms include postnasal drip, rhinorrhea and sneezing. Pertinent negatives include no appetite change, dyspnea on exertion, ear congestion, fever, heartburn, myalgias, PND or trouble swallowing. Her symptoms are alleviated by beta-agonist. She reports complete improvement on treatment. Her past medical history is significant for asthma. GERD She reports no coughing, no heartburn, no hoarse voice or no wheezing. This is a chronic problem. The problem occurs rarely. The problem has been unchanged. Pertinent negatives include no anemia, fatigue or melena. She has tried a histamine-2 antagonist for the symptoms. The treatment provided significant relief. Current Outpatient Medications: ??? albuterol (PROVENTIL,VENTOLIN) 2.5 [...] spray, Administer 1 spray into each nostril daily,Disp: 1 Inhaler, Rfl: 2 ??? Lactobacillus acidophilus (PROBIOTIC) 10 [...] day, Disp: 30 g, Rfl: 1 ??? raNITIdine (ZANTAC) 300 mg tablet, Take 1 tablet (300 mg total) by mouth 2 (two) times a day, Disp: 60 tablet, Rfl: 11 ??? SUMAtriptan (IMITREX) 50 mg tablet, TAKE 1 TABLET BY MOUTH EARLY POSSIBLE AFTER ONSET OF MIGRAINE. REPEAT 1 DOSE IN 2 HRS IF HEADACHE RETURNS., Disp: 9 tablet, Rfl: 2 ??? trimethoprim-polymyxin B (POLYTRIM) ophthalmic solution, Administer 1 drop into both eyes every4 (four) hours while awake, Disp: 10 mL, Rfl: 0 Review of Systems Constitutional: Negative for appetite change, fatigue and fever. HENT: Positive for postnasal drip, rhinorrhea and sneezing. Negative for hoarse voice and trouble swallowing. Respiratory: Negative for cough, hemoptysis, sputum production, shortness of breath and wheezing. Cardiovascular: Negative for dyspnea on exertion and PND. Gastrointestinal: Negative for heartburn and melena. Musculoskeletal: Negative for myalgias. Neurological: Negative for focal weakness. BP 111/68 (BP Location: Right arm, Patient Position: Sitting) Pulse 53 Ht 152.4 cm (5') Wt 67.5 kg (148 lb 12.8 oz) LMP (LMP Unknown) SpO2 96% BMI 29.06 kg/m?? Physical Exam Constitutional: She is oriented to person, place, and time. She appears well- developed and well-nourished. HENT: Head: Normocephalic and atraumatic. Right Ear: External ear normal. Left Ear: External ear normal. Mouth/Throat: Oropharynx is clear and moist. Eyes: Pupils are equal, round, and reactive [...] Capillary refill takes less than 2 seconds. Psychiatric: She has a normal mood and affect. Her behavior is normal. Vitals reviewed. Abstract on 07/01/2019 Component Date Value Ref Range Status ??? Lipid Panel 06/29/2019 Normal Final LDL - 71 Lab on 06/29/2019 Component Date Value Ref Range Status ??? Sodium 06/29/2019 144 135 - 145 mmol/L Final ??? Potassium, pl 06/29/2019 4.1 3.3 - 4.9 mmol/L Final ??? Chloride 06/29/2019 110 97 - 110 mmol/L Final ??? CO2 06/29/2019 24 22 - 32 mmol/L Final ??? Anion gap 06/29/2019 10 2 - 15 mmol/L Final ??? BUN 06/29/2019 13 8 - 25 mg/dL Final ??? Creatinine 06/29/2019 0.76 0.60 - 1.10 mg/dL Final ??? Glucose 06/29/2019 92 70 - 199 mg/dL Final Comment: Interpretive [...] data was last revised 2017. ??? Calcium 06/29/2019 9.0 8.5 - 10.3 mg/dL Final ? ? Bilirubin, total 06/29/2019 <0.2 0.1 - 1.2 mg/dL Final ??? Protein, pl 06/29/2019 6.2* 6.5 - 8.5 g/dL Final ??? Albumin 06/29/2019 4.1 3.5 - 5.0 g/dL Final ??? Alk phos 06/29/2019 82 40 - 130 Units/L Final ??? ALT 06/29/2019 21 7 - 45 Units/L Final ??? AST 06/29/2019 17 10 - 45 Units/L Final ??? Cholesterol 06/29/2019 125 30 - 199 mg/dL Final Comment: Interpretive [...] last revised on 2018. ? ? Triglycerides 06/29/2019 82 <=149 mg/dL Final Comment: Interpretive Data Ages [...] last revised on 2018. ? ? HDL 06/29/2019 38* >=40 mg/dL Final Comment: Interpretive Data Ages [...] revised on 2018. ? ? LDL, calculated 06/29/2019 71 <=129 mg/dL Final Comment: Interpretive Data Ages [...] last revised on 2018. ??? Non-HDL Cholesterol 06/29/2019 87 mg/dL Final Comment: Interpretive Data Ages < [...] last revised on 2018. ??? Chol/HDL ratio 06/29/2019 3 Final ??? WBC 06/29/2019 9.2 3.8 - 9.9 K/cumm Final ??? Hgb 06/29/2019 14.9 11.9 - 15.5 g/dL Final ??? Hct 06/29/2019 45.1 35.6 - 45.5 % Final ??? Plt 06/29/2019 216 150 - 400 K/cumm Final ??? MPV 06/29/2019 10.8 9.1 - 12.3 fL Final ??? RBC 06/29/2019 4.89 3.90 - 5.20 M/cumm Final ??? MCV 06/29/2019 92.2 81.3 - 96.4 fL Final ??? MCH 06/29/2019 30.5 27.1 - 33.3 pg Final ??? MCHC 06/29/2019 33.0 32.3 - 35.7 g/dL Final ??? RDW CV 06/29/2019 13.4 11.1 - 14.9 % Final ??? RDW SD 06/29/2019 45.9 35.7 - 48.1 fL Final ??? NRBC abs 06/29/2019 0.00 0.00 - 0.01 K/cumm Final ??? Neutrophil abs 06/29/2019 4.8 1.7 - 6.5 K/cumm Final ??? Imm gran abs 06/29/2019 0.0 0.0 - 0.1 K/cumm Final ??? Lymphocyte abs 06/29/2019 3.5* 0.8 - 3.3 K/cumm Final ??? Monocyte abs 06/29/2019 0.7 0.2 - 0.8 K/cumm Final ??? Eosinophil abs 06/29/2019 0.2 0.0 - 0.5 K/cumm Final ??? Basophil abs 06/29/2019 0.0 0.0 - 0.1 K/cumm Final ??? Neutrophil pct 06/29/2019 52.3 % Final Comment: Interpretive Data Percent cell count reference ranges are not reported, since discordance with absolute values may lead to misinterpretation of CBC data. Current Interpretive Data was last revised on 2018. ??? Imm gran pct 06/29/2019 0.2 % Final Comment: Interpretive Data Percent cell count reference ranges are not reported, since discordance with absolute values may lead to misinterpretation of CBC data. Current Interpretive Data was last revised on 2018. ??? Lymphocyte pct 06/29/2019 38.1 % Final Comment: Interpretive Data Percent cell count reference ranges are not reported, since discordance with absolute values may lead to misinterpretation of CBC data. Current Interpretive Data was last revised on 2018. ??? Monocyte pct 06/29/2019 7.2 % Final Comment: Interpretive Data Percent cell count reference ranges are not reported, since discordance with absolute values may lead to misinterpretation of CBC data. Current Interpretive Data was last revised on 2018. ??? Eosinophil pct 06/29/2019 1.8 % Final Comment: Interpretive Data Percent cell count reference ranges are not reported, since discordance with absolute values may lead to misinterpretation of CBC data. Current Interpretive Data was last revised on 2018. ??? Basophil pct 06/29/2019 0.4 % Final Comment: Interpretive Data Percent cell count reference ranges are not reported, since discordance with absolute values may lead to misinterpretation of CBC data. Current Interpretive Data was last revised on 2018. ??? GFR 06/29/2019 88 mL/min/1.73 m2 Final Comment: Interpretive Data Reference Interval Normal >/= 90 mL/min/1.73m2 Mildly decreased* 60 - 89 mL/min/1.73m2 Mildly to moderately decreased 45 - 59 mL/min/1.73m2 Moderately to severely decreased 30 - 44 mL/min/1.73m2 Severely decreased 15 - 29 mL/min/1.73m2 Kidney Failure < 15 mL/min/1.73m2 *Relative to young adult level If -Taiwanese multiply value by 1.16. Estimated glomerular filtration [...] Current interpretive data was last reviewed 2016. Assessment/Plan Diagnoses and all orders for this visit: Gastroesophageal reflux disease without esophagitis (Primary) Comments: has been switched to Zantac some word of a potential recall for OTC Zantac has been received; pharm will update no change otherwise Orders: - CBC with auto differential; Future BMI 29.0-29.9,adult Comments: improving nicely, down 11 lbs since May by our scale (?!) keep up activity, exercise Dyslipidemia Comments: HDL remains slightly low total, LDL cholesterol are controlled; liver function is normal fish oil recommended; continue Lipitor Orders: - Comprehensive metabolic panel; Future - Lipid panel; Future Allergic conjunctivitis of both eyes Comments: continue ophthalmic antihistamine and polytrim as prescribed by eye doctor. OTC options- I'm not sure if pataday is otc anymore, but generic otc brands Mild intermittent asthma without complication Comments: well controlled at current continue PRN rescue inhaler Other orders - Flu Vaccine Quad PF 6m+ IM - Fluarix / FluLaval / Afluria Emerson Allen MD This office note has been partially dictated using iYogi software. documented in this encounter Plan of Treatment Upcoming Encounters Date Type Department Care Team (Late st Contact Info) Description 02/04/2025 9:30 AM CDT Hospital Encounter [address] [address] Vic Gaines, DO 3 [facility] [address] [place] [address] 02/04/2025 9:30 AM CDT - 02/04/2025 10:00 AM CDT Surgery [address] [address] Vic Gaines, DO 3 [facility] [address] [place] [address] COLONOSCOPY Scheduled Procedures Name Priority Associated Diagnoses Date/Ti me COLONOSCOPY Encounter for screening colonoscopy 02/04/2025 9:30 AM CDT documented as of this encounter Results * Lipid panel (12/21/2019 8:15 AM CDT) Cholesterol 127 30 - 199 mg/dL [facility] ([place]) Comment: Interpretive Data Ages < or = [...] revised on 2018. Triglycerides 100 <=149 mg/dL [facility] [place]) Comment: Interpretive Data [...] ORDERABLES Final Result [facility] ([facility]) 1 [facility] Department [place] [address] * Comprehensive metabolic panel (12/21/2019 8:15 AM CDT) Sodium 141 135 - 145 mmol/L [facility] ([place]) Potassium, pl 4.4 3.3 - 4.9 mmol/L [facility] ([place]) Chloride 106 97 - 110 mmol/L [facility] ([place]) CO2 25 22 - 32 mmol/L [facility] ([place]) Anion gap 10 2 - 15 mmol/L [facility] ([place]) BUN 11 8 - 25 mg/dL [facility] ([place]) Creatinine 0.86 0.60 - 1.10 mg/dL [facility] ([place]) [...] ORDERABLES Final Result [facility] ([place]) 1 [facility] [email or web address] [address] * CBC with auto differential (12/21/2019 8:15 [...] (ART[place]) MCH 31.1 27.1 - 33.3 pg [facility] ([place]) MCHC 33.5 32.3 - 35.7 g/dL [facility] ([place]) RDW CV 12.9 11.1 - 14.9 % [facility] ([place]) RDW SD 43.7 35.7 - 48.1 fL [facility] ([place]) NRBC abs 0.00 0.00 - 0.01 K/cumm [facility] ([place]) Blood specimen (specimen) 12/21/2019 8:15 AM CDT 12/21/2019 8:15 AM CDT us Emerson Allen MD LAB BLOOD ORDERABLES Final Result [facility] ([facility]) [address] [email or web address] [place] [address] documented in this encounter Visit Diagnoses Diagnosis Gastroesophageal reflux disease without esophagitis- Primary Esophageal reflux BMI 29.0-29.9,adult Dyslipidemia Other and unspecified hyperlipidemia Allergic conjunctivitis of both eyes Other chronic allergic conjunctivitis Mild intermittent asthma without complication Encounter for screening colonoscopy documented in this encounter Discontinued Medications Medication Sig Discontinue Reason Start Date End Da te omeprazole (PriLOSEC) 40 mg capsuleIndications:Gastr oesophageal reflux disease without esophagitis Take 1 capsule (40 mg total) by mouth daily. Therapy completed 07/06/2018 07/08/2019 documented as of this encounter Orders Immunization/Injection Count Last Ordered Date First Ordered Date FLU VACCINE QUAD PF 6M+ IM - FLUARIX / FLULAVAL / AFLURIA 1 07/08/2019 documented in this encounter Care Teams Oil Pipeline Operator Relationship Specialty Start Date End Date Emerson Allen MD PCP - General 06/03/17 07/05/21 Phoenix Loredo MD Consulting Physician Cardiology 01/04/19 documented as of this encounter
--- OUTSIDE RECORDS SUMMARY | 2024-10-13 04:10 | XMS_ITS | Encounter Summary ---
Author Organization [facility] Address [address] [facility] [address] [place] [address] Care Team Providers Care Tar Pot Worker Name Role Phone Emerson Allen MD Primary Care Provider [phone] Phoenix Loredo MD Unavailable [phone] Reason for Visit * Reason Comments Sinus Problem c/o was here 1 month ago and was feeling better until after 1 week of finishing her medication. She is c/o sinus pressure, sinus drainage, and coughing. She has had symptoms for 3 weeks. 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 Gender Identity Not on file Sexual Orientation Not on file documented as of this encounter Last Filed Vital Signs Vital Sign Reading Time Taken Comments Blood Pressure 130/78 11/25/2019 1:54 PM SOUND ART INSTRUCTOR Pulse 101 11/25/2019 1:54 PM SOUND ART INSTRUCTOR Temperature 36.6 ??C (97.8 ??F) 11/25/2019 1:54 PM CS T Respiratory Rate 20 11/25/2019 1:54 PM SOUND ART INSTRUCTOR Oxygen Saturation 97% 11/25/2019 1:54 PM SOUND ART INSTRUCTOR Inhaled Oxygen Concentration - - Weight 71.3 kg (157 lb 1.6 oz) 11/25/2019 1:54 P M SOUND ART INSTRUCTOR Height 152.4 cm (5') 11/25/2019 1:54 PM SOUND ART INSTRUCTOR Body Mass Index 30.68 11/25/2019 1:54 PM SOUND ART INSTRUCTOR documented in this encounter Patient Instructions * Patient Instructions* Roxana Ramon NP - 11/25/2019 2:00 PM SOUND ART INSTRUCTOR Complete any meds prescribed Take OTC decongestants for congestion- Sudafed/Mucinex/Flonase Motrin/Tylenol for pain/fever Antihistamines- Zyrtec, Benadryl can be used for runny nose. Drink plenty of water & get plenty of rest A humidifier may also help with congestion May try sinus rinses or steam Follow up with your PCP in 3-5 days if you are not getting better D ART INSTRUCTOR documented in this encounter Ordered Prescriptions Prescription Sig Dispense Quantity Refills Last Filled Start Date End Date amoxicillin-clavul anate (AUGMENTIN) 875-125 mg per tabletIndications: Acute recurrent maxillary sinusitis Take 1 tablet by mouth 2 (two) times a day for 10 days 20 tablet 11/25/2019 12/05/2019 documented in this encounter Progress Notes * Roxana Ramon NP - 11/25/2019 2:00 PM CST Images from the original note were not included. Subjective/Objective Patient ID: Mirtha Cherry is a 54 y.o. female. Chief Complaint Sinus Problem (c/o was here 1 month ago and was feeling better until after 1 week of finishing her medication. She is c/o sinus pressure, sinus drainage, and coughing. She has had symptoms for 3 weeks. ) Presents to clinic for sinus congestion, drainage, sinus pain, cough, runny nose. Symptoms started about 6 weeks ago. She was prescribed 1 week of Augmentin which started to help, but by the time shewas finished w it, it was not completely gone. She has been using sinus rinses. Sinus Problem This is a new problem. The current episode started more than 1 month ago. There has been no fever. Associated symptoms include congestion, coughing, ear pain, headaches and sinus pressure. Pertinent negatives include no chills or sore throat. Treatments tried: sinus rinses. The treatment provided no relief. Review of Systems Constitutional: Negative for chills and fever. HENT: Positive for congestion, ear pain, postnasal drip, sinus pressure and sinus pain. Negative for sore throat. Respiratory: Positive for cough. Gastrointestinal: Negative for nausea and vomiting. Neurological: Positive for headaches. Physical Exam Constitutional: General: She is not in acute distress. Appearance: Normal appearance. She is well-developed. HENT: Right Ear: Hearing, tympanic membrane, ear canal and external ear normal. Left Ear: Hearing, tympanic membrane, ear canal and external ear normal. Nose: Right Sinus: Maxillary sinus tenderness present. No frontal sinus tenderness. Left Sinus: Maxillary sinus tenderness present. No frontal sinus tenderness. Mouth/Throat: Mouth: Mucous membranes are moist. Pharynx: Oropharynx is clear. Eyes: Conjunctiva/sclera: Conjunctivae normal. Neck: Musculoskeletal: Normal range of motion and neck supple. Cardiovascular: Rate and Rhythm: Normal rate and regular rhythm. Pulmonary: Effort: Pulmonary effort is normal. Breath sounds: Normal breath sounds. Musculoskeletal: Normal range of motion. Lymphadenopathy: Cervical: No cervical adenopathy. Skin: General: Skin is warm and dry. Neurological: Mental Status: She is alert and oriented to person, place, and time. GCS: GCS eye subscore is 4. GCS verbal subscore is 5. GCS motor subscore is 6. Gait: Gait is intact. Psychiatric: Speech: Speech normal. Behavior: Behavior normal. Vitals: 11/25/19 1354 BP: 130/78 BP Location: Left arm Patient Position: Sitting Pulse: 101 Resp: 20 Temp: 36.6 ??C (97.8 ??F) TempSrc: Oral SpO2: 97% Weight: 71.3 kg (157 lb 1.6 oz) Height: 152.4 cm (5') Assessment/Plan Complete any meds prescribed Take OTC decongestants for congestion- Sudafed/Mucinex/Flonase Motrin/Tylenol for pain/fever Antihistamines- Zyrtec, Benadryl can be used for runny nose. Drink plenty of water & get plenty of rest A humidifier may also help with congestion May try sinus rinses or steam Follow up with your PCP in 3-5 days if you are not getting better Diagnoses and all orders for this visit: Acute recurrent maxillary sinusitis (Primary) - amoxicillin-clavulanate (AUGMENTIN) 875-125 mg per tablet; Take 1 tablet by mouth 2 (two) times aday for 10 days Disposition- Discussed medications dosages, usage & potential [...] the plan of care Roxana Ramon NP D ART INSTRUCTOR documented in this encounter Plan of Treatment Upcoming Encounters Date Type Department Care Team (Late st Contact Info) Description 02/04/2025 9:30 AM CDT Hospital Encounter [address] [address] Vic Gaines, DO 3 [facility] [address] [place] [address] [place] [address] 02/04/2025 9:30 AM CDT - 02/04/2025 10:00 AM CDT Surgery [address] [address] Vic Gaines, DO [address] [place] [address] [place] [address] COLONOSCOPY Scheduled Procedures Name Priority Associated Diagnoses Date/Ti me COLONOSCOPY Encounter for screening colonoscopy 02/04/2025 9:30 AM CDT documented as of this encounter Visit Diagnoses Diagnosis Acute recurrent maxillary sinusitis- Primary Encounter for screening colonoscopy documented in this encounter Care Teams Tar Pot Worker Relationship Specialty Start Date End Date Emerson Allen MD PCP - General 06/03/17 07/05/21 Phoenix Loredo MD Consulting Physician Cardiology 01/04/19 documented as of this encounter
--- OUTSIDE RECORDS SUMMARY | 2024-10-13 04:10 | XMS_ITS | Encounter Summary ---
Author Organization [facility] Address [address] [place] [address] Care Team Providers Care Workforce Consultant Name Role Phone Emerson Allen MD Primary Care Provider [phone] Phoenix Loredo MD Unavailable [phone] Reason for Visit * Reason Comments Health Maintenance 6mo f/u Encounter Details Date Type Department Care Team (Late st Contact Info) Description 01/04/2019 9:30 AM CDT Office Visit [facility] [address] [place] [address] Emerson Allen MD [address] [facility] [address] [place] [address] Mixed hyperlipidemia (Primary Dx); Gastroesophageal reflux disease without esophagitis; Mild intermittent asthma without complication; Tobacco dependence syndrome; PVD (peripheral vascular disease) ([facility]) Social History Tobacco Use Types Packs/Day Years Used Date Smoking Tobacco: Every Day Cigarettes Smokeless Tobacco: Never Comments:Smoking History Pac ks/day: 0.5 Packs Alcohol Use Standard Drinks/Week Comments No 0 (1 standard drink = 0.6 oz pur e alcohol) Comments No Sex and Gender Information Value Date Recorded Sex Assigned at Not on file 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 Gender Identity Not on file Sexual Orientation Not on file documented as of this encounter Last Filed Vital Signs Vital Sign Reading Time Taken Comments Blood Pressure 116/79 01/04/2019 9:15 AM CDT Pulse 76 01/04/2019 9:15 AM CDT Temperature - - Respiratory Rate - - Oxygen Saturation 97% 01/04/2019 9:15 AM CDT Inhaled Oxygen Concentration - - Weight 73.5 kg (162 lb) 01/04/2019 9:15 AM CDT Height 152.4 cm (5') 01/04/2019 9:15 AM CDT Body Mass Index 31.64 01/04/2019 9:15 AM CDT documented in this encounter Patient Instructions * Patient Instructions* Emerson Allen MD - 01/04/2019 9:30 AM CDT Mirtha was seen today for health maintenance. Diagnoses and all orders for this visit: Mixed hyperlipidemia Comments: lipids well controlled liver function is normal continue atorvastatin 40 mg daily Orders: - CBC with auto differential; Future - Lipid panel; Future - Comprehensive metabolic panel; Future Gastroesophageal reflux disease without esophagitis Comments: continue omeprazole 40 mg qd, zantac qpm (from Dr. Rooney) may need to instead rely on claritin Mild intermittent asthma without complication Comments: no change continue nasal rinsing, mucinex for the mucus continue PRN albuterol nebs 2.5mg/3 ml and inhaler (seldom) Tobacco dependence syndrome Comments: recommend quitting, though she has cut back she remains reticent to do Chantix PVD (peripheral vascular disease) ([facility]) Comments: seeing Dr. Loredo soon continues on aspirin 81 mg qd documented in this encounter Progress Notes * Emerson Allen MD - 01/04/2019 9:30 AM CDT Subjective/Objective Patient ID: Mirtha Cherry is a 53 y.o. female. Chief Complaint Health Maintenance (6mo f/u) Here for HMV. She is feeling fine, though still producing lots of mucus from her URI 3 weeks ago; she finished the antibiotics. She is still smoking (had been prescribed Chantix a few years ago, didn't end up taking it out of fears of complications). Hypertension This is a chronic problem. The problem is controlled. Pertinent negatives include no chest pain, headaches, neck pain, palpitations, peripheral edema or shortness of breath. Hypertensive end-organ damage includes PVD. There is no history of angina, kidney disease, CAD/DC, CVA, heart failure or leftventricular hypertrophy. There is no history of chronic renal disease. Hyperlipidemia This is a chronic problem. Exacerbating diseases include obesity. She has no history of chronic renal disease, diabetes, hypothyroidism or liver disease. Pertinent negatives include no chest pain, focal sensory loss, focal weakness, leg pain or shortness of breath. Current antihyperlipidemic treatment includes statins. Compliance problems include adherence to diet and adherence to exercise. Risk factors for coronary artery disease include obesity, dyslipidemia and post-menopausal. Current Outpatient Medications: ??? albuterol (PROVENTIL,VENTOLIN) 2.5 mg /3 mL (0.083 %) nebulizer solution, Take 2.5 mg by nebulization every 6 (six) hours as needed for wheezing, Disp: , Rfl: ??? albuterol HFA (PROVENTIL HFA,VENTOLIN HFA,PROAIR HFA) [...] daily., Disp: 90 capsule, Rfl: 3 ??? ranitidine (ZANTAC) 150 mg capsule, Take 150 mg by mouth every evening, Disp: , Rfl: ??? SUMAtriptan (IMITREX) 50 mg tablet, TAKE 1 TABLET BY MOUTH EARLY POSSIBLE AFTER ONSET OF MIGRAINE. MAY REPEAT AFTER 2 HOURS IF HEADACHE RETURNS., Disp: 9 tablet, Rfl: 3 Review of Systems Constitutional: Negative. HENT: Negative. Respiratory: Negative for cough, shortness of breath and wheezing. Cardiovascular: Negative for chest pain and palpitations. Gastrointestinal: Negative. Genitourinary: Negative. Musculoskeletal: Negative for neck pain. Neurological: Negative for focal weakness and headaches. Psychiatric/Behavioral: Negative. BP 116/79 (BP Location: Left arm, Patient Position: Sitting) Pulse 76 Ht 152.4 cm (5') Wt 73.5 kg (162 lb) LMP (LMP Unknown) SpO2 97% BMI 31.64 kg/m?? Physical Exam Constitutional: She is oriented to person, place, and time. She appears well- developed and well-nourished. obese HENT: Head: Normocephalic and atraumatic. Right Ear: [...] behavior is normal. Vitals reviewed. Abstract on 12/31/2018 Component Date Value Ref Range Status ??? [facility] Lipid Panel 12/29/2018 Normal Final LDL-82 Lab on 12/29/2018 Component Date Value Ref Range Status ??? Cholesterol 12/29/2018 146 30 - 199 mg/dL Final Comment: Interpretive [...] last revised on 2018. ? ? Triglycerides 12/29/2018 119 <=149 mg/dL Final Comment: Interpretive Data Ages [...] last revised on 2018. ? ? HDL 12/29/2018 40 >=40 mg/dL Final Comment: Interpretive Data Ages [...] revised on 2018. ? ? LDL, calculated 12/29/2018 82 <=129 mg/dL Final Comment: Interpretive Data Ages [...] last revised on 2018. ??? Non-HDL Cholesterol 12/29/2018 106 mg/dL Final Comment: Interpretive Data Ages < [...] last revised on 2018. ??? Chol/HDL ratio 12/29/2018 4 Final ??? Sodium 12/29/2018 141 135 - 145 mmol/L Final ??? Potassium, pl 12/29/2018 4.2 3.3 - 4.9 mmol/L Final ??? Chloride 12/29/2018 106 97 - 110 mmol/L Final ??? CO2 12/29/2018 22 22 - 32 mmol/L Final ??? Anion Gap 12/29/2018 13 2 - 15 mmol/L Final ??? BUN 12/29/2018 10 8 - 25 mg/dL Final ??? Creatinine 12/29/2018 0.69 0.60 - 1.10 mg/dL Final ??? Glucose 12/29/2018 100 70 - 199 mg/dL Final Comment: Interpretive [...] data was last revised 2017. ??? Calcium 12/29/2018 8.9 8.5 - 10.3 mg/dL Final ??? Bilirubin, total 12/29/2018 0.3 0.1 - 1.2 mg/dL Final ??? Protein, pl 12/29/2018 6.7 6.5 - 8.5 g/dL Final ??? Albumin 12/29/2018 4.1 3.5 - 5.0 g/dL Final ??? Alk phos 12/29/2018 108 40 - 130 Units/L Final ??? ALT 12/29/2018 18 7 - 45 Units/L Final ??? AST 12/29/2018 14 10 - 45 Units/L Final ??? WBC 12/29/2018 8.5 3.8 - 9.9 K/cumm Final ??? Hgb 12/29/2018 13.3 11.9 - 15.5 g/dL Final ??? Hct 12/29/2018 40.5 35.6 - 45.5 % Final ??? Plt 12/29/2018 251 150 - 400 K/cumm Final ??? MPV 12/29/2018 10.2 9.1 - 12.3 fL Final ??? RBC 12/29/2018 4.54 3.90 - 5.20 M/cumm Final ??? MCV 12/29/2018 89.2 81.3 - 96.4 fL Final ??? MCH 12/29/2018 29.3 27.1 - 33.3 pg Final ??? MCHC 12/29/2018 32.8 32.3 - 35.7 g/dL Final ??? RDW CV 12/29/2018 13.8 11.1 - 14.9 % Final ??? RDW SD 12/29/2018 45.2 35.7 - 48.1 fL Final ??? NRBC Abs 12/29/2018 0.00 0.00 - 0.01 K/cumm Final ??? TSH 12/29/2018 1.28 0.30 - 4.20 mcIUnit/mL Final ??? Neutrophil absolute 12/29/2018 5.2 1.7 - 6.5 K/cumm Final ??? Immature granulocyte absolute 12/29/2018 0.0 0.0 - 0.1 K/cumm Final ??? Lymphocytes absolute 12/29/2018 2.5 0.8 - 3.3 K/cumm Final ??? Monocyte absolute 12/29/2018 0.6 0.2 - 0.8 K/cumm Final ??? Eosinophils absolute 12/29/2018 0.1 0.0 - 0.5 K/cumm Final ??? Basophils, abs 12/29/2018 0.0 0.0 - 0.1 K/cumm Final ??? Neutrophils 12/29/2018 60.9 % Final Comment: Interpretive Data Percent cell count reference ranges are not reported, since discordance with absolute values may lead to misinterpretation of CBC data. Current Interpretive Data was last revised on 2018. ??? Immature granulocytes 12/29/2018 0.6 % Final Comment: Interpretive Data Percent cell count reference ranges are not reported, since discordance with absolute values may lead to misinterpretation of CBC data. Current Interpretive Data was last revised on 2018. ??? Lymphocytes 12/29/2018 29.2 % Final Comment: Interpretive Data Percent cell count reference ranges are not reported, since discordance with absolute values may lead to misinterpretation of CBC data. Current Interpretive Data was last revised on 2018. ??? Monocytes 12/29/2018 7.7 % Final Comment: Interpretive Data Percent cell count reference ranges are not reported, since discordance with absolute values may lead to misinterpretation of CBC data. Current Interpretive Data was last revised on 2018. ??? Eosinophils 12/29/2018 1.4 % Final Comment: Interpretive Data Percent cell count reference ranges are not reported, since discordance with absolute values may lead to misinterpretation of CBC data. Current Interpretive Data was last revised on 2018. ??? Basophils 12/29/2018 0.2 % Final Comment: Interpretive Data Percent cell count reference ranges are not reported, since discordance with absolute values may lead to misinterpretation of CBC data. Current Interpretive Data was last revised on 2018. ??? GFR 12/29/2018 99 mL/min/1.73 m2 Final Comment: Interpretive Data Reference Interval Normal >/= 90 mL/min/1.73m2 Mildly decreased* 60 - 89 mL/min/1.73m2 Mildly to moderately decreased 45 - 59 mL/min/1.73m2 Moderately to severely decreased 30 - 44 mL/min/1.73m2 Severely decreased 15 - 29 mL/min/1.73m2 Kidney Failure < 15 mL/min/1.73m2 *Relative to young adult level If -[place] multiply value by 1.16. Estimated glomerular filtration [...] orders for this visit: Mixed hyperlipidemia (Primary) Comments: lipids well controlled liver function is normal continue atorvastatin 40 mg daily Gastroesophageal reflux disease without esophagitis Comments: continue omeprazole 40 mg qd, zantac qpm (from Dr. Rooney) may need to instead rely on claritin Mild intermittent asthma without complication Comments: no change continue nasal rinsing, mucinex for the mucus continue PRN albuterol nebs 2.5mg/3 ml and inhaler (seldom) Tobacco dependence syndrome Comments: recommend quitting, though she has cut back she remains reticent to do Chantix PVD (peripheral vascular disease) ([facility]) Comments: seeing Dr. Loredo soon continues on aspirin 81 mg qd Emerson Allen MD This office note has been partially dictated using Vapore software. documented in this encounter Plan of Treatment Upcoming Encounters Date Type Department Care Team (Late st Contact Info) Description 02/04/2025 9:30 AM CDT Hospital Encounter [facility] [address] [place] [address] Vic Gaines, DO [address] [address] 02/04/2025 9:30 AM CDT - 02/04/2025 10:00 AM CDT Surgery [facility] [address] [place] [address] Vic Gaines, DO [address] [address] COLONOSCOPY Scheduled Procedures Name Priority Associated Diagnoses Date/Ti me COLONOSCOPY Encounter for screening colonoscopy 02/04/2025 9:30 AM CDT documented as of this encounter Results * (ABNORMAL) Comprehensive metabolic panel (06/29/2019 7:27 AM CDT) Sodium 144 135 - 145 mmol/L [facility] ([place]) Potassium, pl 4.1 3.3 - 4.9 mmol/L [facility] ([place]) Chloride 110 97 - 110 mmol/L [facility] ([place]) CO2 24 22 - 32 mmol/L [facility] ([place]) Anion gap 10 2 - 15 mmol/L [facility] ([place]) BUN 13 8 - 25 mg/dL [facility] ([place]) Creatinine 0.76 0.60 - 1.10 mg/dL [facility] ([place]) Glucose 92 70 - 199 mg/dL [facility] ([place]) [...] 1.2 mg/dL [facility] ([place]) Protein, pl 6.2(L) 6.5 - 8.5 g/dL [facility] ([place]) Albumin 4.1 3.5 - 5.0 g/dL [facility] ([place]) Alk phos 82 40 - 130 Units/L [facility]) ALT 21 7 - 45 Units/L [facility] ([place]) AST 17 10 - 45 Units/L [facility] Blood specimen (specimen) 06/29/2019 7:27 AM CDT 06/29/2019 8:35 AM CDT Emerson Allen MD LAB BLOOD ORDERABLES Final Result [facility] ([place]) [address] [place] [address] * (ABNORMAL) Lipid panel (06/29/2019 7:27 AM CDT) Cholesterol 125 30 - 199 mg/dL [facility] ([place]) Comment: Interpretive Data Ages < [...] Data was last revised on 2018. Triglycerides 82 <=149 mg/dL [facility] ([place]) Comment: Interpretive [...] Data was last revised on 2018. HDL 38(L) >=40 mg/dL [facility] ([place]) Comment: Interpretive [...] was last revised on 2018. LDL, calculated 71 <=129 mg/dL [facility] ([place]) Comment: Interpretive Data Ages < or = [...] was last revised on 2018. Non-HDL Cholesterol 87 mg/dL [facility] ([place]) Comment: Interpretive Data [...] revised on 2018. Chol/HDL ratio 3 [facility] ([place]) Blood specimen (specimen) 06/29/2019 7:27 AM CDT 06/29/2019 8:35 AM CDT us Emerson Allen MD LAB BLOOD ORDERABLES Final Result [facility] ([place]) [address] [place] [id number] * CBC with auto differential (06/29/2019 7:27 AM CDT) WBC 9.2 3.8 - 9.9 K/cumm [facility] ([place]) Hgb 14.9 11.9 - 15.5 g/dL [facility] ([place]) Hct 45.1 35.6 - 45.5 % [facility] ([place]) Plt 216 150 - 400 K/cumm [facility] ([place]) MPV 10.8 9.1 - 12.3 fL [facility] ([place]) RBC 4.89 3.90 - 5.20 M/cumm [facility] ([place]) MCV 92.2 81.3 - 96.4 fL [facility] ([place]) MCH 30.5 27.1 - 33.3 pg [facility] ([place]) MCHC 33.0 32.3 - 35.7 g/dL [facility] ([place]) RDW CV 13.4 11.1 - 14.9 % [facility] ([place]) RDW SD 45.9 35.7 - 48.1 fL [facility] ([place]) NRBC abs 0.00 0.00 - 0.01 K/cumm [facility] ([place]) Blood specimen (specimen) 06/29/2019 7:27 AM CDT 06/29/2019 8:35 AM CDT Emerson Allen MD LAB BLOOD ORDERABLES Final Result [facility] ([place]) [address] [place] [address] documented in this encounter Visit Diagnoses Diagnosis Mixed hyperlipidemia- Primary Gastroesophageal reflux disease without esophagitis Esophageal reflux Mild intermittent asthma without complication Tobacco dependence syndrome Tobacco use disorder PVD (peripheral vascular disease) (HCC) Unspecified peripheral vascular disease Encounter for screening colonoscopy documented in this encounter Historical Medications * This list may reflect changes made after this encounter. ranitidine (ZANTAC) 150 mg capsule Take 150 mg by mouth every evening 9 albuterol (PROVENTIL,FILI DIONNE) 2.5 mg /3 mL (0.083 %) nebulizer solution Take 2.5 mg by nebulization every 6 (six) hours as needed for wheezing 9 added in this encounter Care Teams Workforce Consultant Relationship Specialty Start Date End Date Emerson Allen MD PCP - General 06/03/17 07/05/21 Phoenix Loredo MD Consulting Physician Cardiology 01/04/19 documented as of this encounter
--- OUTSIDE RECORDS SUMMARY | 2024-10-13 04:10 | XMS_ITS | Encounter Summary ---
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 Gender Identity Not on file Sexual Orientation Not on file documented as of this encounter Plan of Treatment Upcoming Encounters Date Type Department Care Team (Late st Contact Info) Description 02/04/2025 9:30 AM CDT Hospital Encounter [address] [address] Vic Gaines, DO [address] [address] 02/04/2025 9:30 AM CDT - 02/04/2025 10:00 AM CDT Surgery [facility] [address] [place] [address] Vic Gaines, DO [address] [address] COLONOSCOPY Scheduled Procedures Name Priority Associated Diagnoses Date/Ti me COLONOSCOPY Encounter for screening colonoscopy 02/04/2025 9:30 AM CDT documented as of this encounter Visit Diagnoses Not on filedocumented in this encounter Care Teams Continuous Loft Operator Relationship Specialty Start Date End Date Emerson Allen MD PCP - General 06/03/17 07/05/21 Phoenix Loredo MD Consulting Physician Cardiology 01/04/19 documented as of this encounter
--- OUTSIDE RECORDS SUMMARY | 2024-10-13 04:10 | XMS_ITS | Encounter Summary ---
Author Organization [facility] Medical Group Address [address] [place] [address] Care Team Providers Care Paid Search Marketing Strategist Name Role Phone Emerson Allen MD Primary Care Provider [phone] Phoenix Loredo MD Unavailable [phone] Reason for Visit * Reason Comments Follow-up Peripheral Artery Disease Encounter Details Date Type Department Care Team (Late st Contact Info) Description 10/28/2019 8:15 AM MEDICAL BILLING SERVICE Office Visit Collbran Supervisor Irrigation [address] [facility] [address] [place] [address] Phoenix Loredo MD [address] [place] [address] [address] [place] [address] PVD (peripheral vascular disease) (CMS/HCC) (Primary Dx); Mixed hyperlipidemia; Tobacco dependence syndrome Social History Tobacco Use [...] on file Legal Sex Female 8:44 AM MEDICAL BILLING SERVICE Gender Identity Not on file Sexual Orientation Not on file documented as of this encounter Last Filed Vital Signs Vital Sign Reading Time Taken Comments Blood Pressure 124/77 10/28/2019 8:17 AM MEDICAL BILLING SERVICE Pulse 73 10/28/2019 8:17 AM MEDICAL BILLING SERVICE Temperature - - Respiratory Rate - - Oxygen Saturation - - Inhaled Oxygen Concentration - - Weight 71.2 kg (157 lb) 10/28/2019 8:17 AM MEDICAL BILLING SERVICE Height - - Body Mass Index 30.66 10/19/2019 11:11 AM MEDICAL BILLING SERVICE documented in this encounter Progress Notes * Phoenix Loredo MD - 10/28/2019 8:15 AM CST Cardiology note Reason for Office Visit: PAD History of Present Illness: Mirtha Cherry is a 54 y.o. female who presents to the office for a follow up visit for PAD., s/p stent placement., tobacco abuse and dyslipidemia . In 2004 ,patient had two bare metal stents placd in bilateral common iliac arteries.they were restented with ICAST ( 7 X 38 mm, post dilated using 8 mm balloon) covered stents in 2007 at [facility]. Patient had balloon angioplasty done for repeat stenosis in 2014. Patient was going to undergo bunion surgery and refered by evs manager for weak pedal pulses. US doppler showed [...] Patient denies chest pain, SOB, palpitations. Patient quit smoking recently and exercising and dieting .Patient weight down 15 pounds.from Weight: 161 lbs Review of Systems: Review of Systems Constitution: Negative for decreased appetite, malaise/fatigue, weight gain and weight loss. HENT: Negative for ear discharge, hearing loss and nosebleeds. Eyes: Negative for blurred vision and visual disturbance. Cardiovascular: Negative for chest pain, [...] reflux disease GERD ??? HX OTHER MEDICAL 01-PERSONAL BANKER ??? 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 HX OTHER MEDICAL 2010 capal [...] 2004 and 2007 ??? OTHER SURGICAL HISTORY polypectomy for vocal cords Family History Problem [...] on file Allergies: Allergies Allergen Reactions ??? Adhesive Rash [...] for this visit. Vital Signs: Vitals BP 124/77 (BP Location: Left arm, Patient Position: Sitting) Pulse 73 Wt 71.2 kg (157 lb) LMP (LMP Unknown) BMI 30.66 kg/m?? Vitals: 10/28/19 0817 BP: 124/77 Pulse: 73 Wt Readings from Last 3 Encounters: 10/28/19 71.2 kg (157 lb) 10/19/19 68.9 kg (152 lb) 07/08/19 67.5 kg (148 lb 12.8 oz) Body mass index is 30.66 kg/m??. Physical Exam: Physical Exam Constitutional: She is oriented to person, place, and time. She appears well- developed and well-nourished. No distress. HENT: Mouth/Throat: No oropharyngeal exudate. Eyes: Pupils are equal, round, and reactive to light. Conjunctivae are normal. Neck: No JVD present. Carotid bruit is not present. No tracheal deviation present. Cardiovascular: Normal rate, regular rhythm, S1 normal, S2 normal and intact distal pulses. Exam reveals no gallop and no decreased pulses. Pulses: Carotid pulses are 2+ on the right [...] side and 2+ on the left side. Pedal pulses with doppler Pulmonary/Chest: Effort normal. She has no decreased breath sounds. She has no wheezes. She has no rhonchi. She has no rales. Abdominal: Soft. Normal appearance and bowel sounds are normal. Neurological: She is alert and oriented to person, place, and time. Skin: Skin is warm and dry. She is not diaphoretic. Labs: Lab Results Component Value Date INR 0.95 06/01/2017 INR 0.95 01/07/2016 Lab Results Component Value Date PT 10.7 06/01/2017 Lab Results Component Value Date TSH 1.28 12/29/2018 Lab Results Component Value Date AST 17 06/29/2019 ALT 21 06/29/2019 ALKPHOS 82 06/29/2019 ALBUMIN 4.1 06/29/2019 Lab Results Component Value Date SODIUM 144 06/29/2019 POTASSIUM 4.1 06/29/2019 CHLORIDE 110 06/29/2019 CO2 06/29/2019 ANIONGAP 10 06/29/2019 No results found for: BNP Lab Results Component Value Date SODIUM 144 06/29/2019 SODIUM 141 12/29/2018 SODIUM 142 06/29/2018 POTASSIUM 4.1 06/29/2019 POTASSIUM 4.2 12/29/2018 POTASSIUM 4.3 06/29/2018 CHLORIDE 110 06/29/2019 CHLORIDE 106 12/29/2018 CHLORIDE 104 06/29/2018 CO2 06/29/2019 CO2 22 12/29/2018 CO2 24 06/29/2018 BUNSER 13 06/29/2019 BUNSER 10 12/29/2018 BUNSER 10 06/29/2018 CREATININE 0.76 06/29/2019 CREATININE 0.69 12/29/2018 CREATININE 0.66 06/29/2018 GFRNAA 88 06/29/2019 GFRNAA 99 12/29/2018 GFRNAA >60 06/29/2018 GLUCOSE 92 06/29/2019 CALCIUM 9.0 06/29/2019 CALCIUM 8.9 12/29/2018 CALCIUM 9.4 06/29/2018 ALBUMIN 4.1 06/29/2019 ALBUMIN 4.1 12/29/2018 ALBUMIN 4.3 06/29/2018 Lab Results Component Value Date SODIUM 144 06/29/2019 POTASSIUM 4.1 06/29/2019 CHLORIDE 110 06/29/2019 CO2 24 06/29/2019 ANIONGAP 10 06/29/2019 BUNSER 13 06/29/2019 CREATININE 0.76 06/29/2019 GLUCOSE 92 06/29/2019 CALCIUM 9.0 06/29/2019 BILITOT <0.2 06/29/2019 PROT 6.2 (L) 06/29/2019 ALBUMIN 4.1 06/29/2019 ALKPHOS 82 06/29/2019 ALT 21 06/29/2019 AST 17 06/29/2019 Lab Results Component Value Date WBC 9.2 06/29/2019 HGB 14.9 06/29/2019 HCT 45.1 06/29/2019 LABPLAT 216 06/29/2019 MPV 10.8 06/29/2019 RBC 4.89 06/29/2019 MCV 92.2 06/29/2019 MCH 30.5 06/29/2019 MCHC 33.0 06/29/2019 RDWCV 13.4 06/29/2019 RDWSD 45.9 06/29/2019 NRBCABS 0.00 06/29/2019 Lab Results Component Value Date CHOL 125 06/29/2019 TRIG 82 06/29/2019 HDL 38 (L) 06/29/2019 LDLCALC 71 06/29/2019 NONHDLCHOL 87 06/29/2019 CHOLHDL 3 06/29/2019 Testing: Tests: 05/2016 Ankle-brachial Index ratio was [...] 192, HDL 36, LDL 75, normal TSH EK12/2015 SR possible old anterior WA 07/2016 SR , possible old anterior WA Diagnoses and Plan Assessment: #1 PAD, Bilateral ICAST stents at aortic bifurcation in 2007 and 09/09/2016. Left buttock claudication, resolved post intervention with normalized ABE #2 hyperlidemia- followed by PCP, LDL above target #3 Tobacco abuse, ongoing trying to quit #4 carotid stenosis, mild by duplex in 04/2018 #5 blood pressure improved continue to monitor - discussed with patient Unspecified Atherosclerosis of Extremities, Bilateral [I70.203] Hyperlipidemia, unspecified [E78.5] Tobacco Use [Z72.0] Occlusion/Stenosis of Carotid Artery, Bilateral [I65.23] Plan: Continue same medication regimen. Continue tight control of blood pressure and cholesterol. Continue diet, exercise, and weight reduction. Smoking cessation discussed with patient including the potential health risks. Patient was given options of different aids for smoking cessation. Will continue the discussion. RTC 12 months with ABE Diagnoses and all orders for this visit: PVD (peripheral vascular disease) (CMS/HCC) (Primary) - US ABE; Future Mixed hyperlipidemia Tobacco dependence syndrome Return in about 1 year (around 10/28/2020). 10/28/2019 8:55 AM Phoenix Loredo MD Cc:Emerson Allen MD CAL BILLING SERVICE documented in this encounter Plan of Treatment Upcoming Encounters Date Type Department Care Team (Late st Contact Info) Description 02/04/2025 9:30 AM CDT Hospital Encounter [address] [address] Vic Gaines, DO 3 [facility] [address] [place] [id number] 02/04/2025 9:30 AM CDT - 02/04/2025 10:00 AM CDT Surgery [facility] [address] [address] Vic Gaines, DO 3 [facility] [address] [place] [address] COLONOSCOPY Scheduled Procedures Name Priority Associated Diagnoses Date/Ti me COLONOSCOPY Encounter for screening colonoscopy 02/04/2025 9:30 AM CDT documented as of this encounter Visit Diagnoses Diagnosis PVD (peripheral vascular disease) (HCC)- Primary Unspecified peripheral vascular disease Mixed hyperlipidemia Tobacco dependence syndrome Tobacco use disorder Encounter for screening colonoscopy documented in this encounter Discontinued Medications Medication Sig Discontinue Reason Start Date End Da te trimethoprim-polymyxin B (POLYTRIM) ophthalmic solutionIndications:Acut e conjunctivitis of right eye, unspecified acute conjunctivitis type Administer 1 drop into both eyes every 4 (four) hours while awake Therapy completed 05/31/2019 10/28/2019 documented as of this encounter Care Teams Paid Search Marketing Strategist Relationship Specialty Start Date End Date Emerson Allen MD PCP - General 06/03/17 07/05/21 Phoenix Loredo MD Consulting Physician Cardiology 01/04/19 documented as of this encounter
--- OUTSIDE RECORDS SUMMARY | 2024-10-13 04:10 | XMS_ITS | Encounter Summary ---
Author Organization [facility] Facility Care Team Providers Care Harp Maker Name Role Phone Emerson Allen MD Primary Care Provider [phone] Encounter Details Date Type Department Care Team (Latest Contact Info) Description 12/11/2018 Travel Social History Tobacco Use Types Packs/Day Years Used Date Smoking Tobacco: Every Day Cigarettes Smokeless Tobacco: Never Comments:Smoking History Pac ks/day: 0.5 Packs Alcohol Use Standard Drinks/Week Comments No 0 (1 standard drink = 0.6 oz pur e alcohol) Comments No Sex and Gender Information Value Date Recorded Sex Assigned at Not on file Legal Sex Female 8:44 AM EXAMINER OF CURRENCY Gender Identity Not on file Sexual Orientation Not on file documented as of this encounter Plan of Treatment Upcoming Encounters Date Type Department Care Team (Late st Contact Info) Description 02/04/2025 9:30 AM CDT Hospital Encounter [address] [address] Vic Gaines, DO [address] [place] [address] [place] [address] 02/04/2025 9:30 AM CDT - 02/04/2025 10:00 AM CDT Surgery [address] [address] Vic Gaines, DO [address] [place] [address] [place] [address] COLONOSCOPY Scheduled Procedures Name Priority Associated Diagnoses Date/Ti me COLONOSCOPY Encounter for screening colonoscopy 02/04/2025 9:30 AM CDT documented as of this encounter Visit Diagnoses Not on filedocumented in this encounter Care Teams Harp Maker Relationship Specialty Start Date End Date Emerson Allen MD PCP - General 06/03/17 07/05/21 documented as of this encounter
--- OUTSIDE RECORDS SUMMARY | 2024-10-13 04:10 | XMS_ITS | Encounter Summary ---
Author Organization [facility] Healthcare Address [address] [place] [address] Care Team Providers Care Beck Tender Name Role Phone Emerson Allen MD Primary Care Provider [phone] Encounter Details Date Type Department Care Team (Late Contact Info) Description 06/29/2018 7:15 AM CDT Lab [address] [address] Emerson Allen MD [address] [facility] [address] [place] [address] Gastroesophageal reflux disease without esophagitis; Dyslipidemia Discharge Disposition: Discharge to home or self [...] on file Legal Sex Female 8:44 AM TAXICAB COORDINATOR Gender Identity Not on file Sexual Orientation Not on file documented as of this encounter Discharge Disposition Disposition Code Departure Means Destination Discharge to home or self care documented in this encounter Plan of Treatment Upcoming Encounters Date Type Department Care Team (Late st Contact Info) Description 02/04/2025 9:30 AM CDT Hospital Encounter [facility] [address] [place] [address] Vic Gaines, DO 3 [facility] [address] [place] [address] 02/04/2025 9:30 AM CDT - 02/04/2025 10:00 AM CDT Surgery [facility] [address] [place] [address] Donnyjose cVic cansecoChamp, DO [address] [facility] [address] [address] [place] [address] [place] [address] COLONOSCOPY Scheduled Procedures Name Priority Associated Diagnoses Date/Ti me COLONOSCOPY Encounter for screening colonoscopy 02/04/2025 9:30 AM CDT documented as of this encounter Procedures Procedure Name Priority Date/Time Associated Diagnosis Comments EGFR Routine 06/29/2018 7:15 AM CDT Dyslipidemia CBC WITHOUT DIFFERENTIAL Routine 06/29/2018 7:15 AM CDT Gastroesophageal reflux disease without esophagitis LIPID PANEL Routine 06/29/2018 7:15 AM CDT Dyslipidemia COMPREHENSIVE METABOLIC PANEL Routine 06/29/2018 7:15 AM CDT Dyslipidemia documented in this encounter Results * eGFR (06/29/2018 7:15 AM CDT) eGFR >60 mL/min/1.7 3 m2 JAY IZQUIERDO ([place]) Comment: Interpretive Data Reference Interval Normal ?>/= 90 mL/min/1.73m2 Mildly decreased* ? 60 - 89 mL/min/1.73m2 Mildly to moderately decreased ?45 - 59 mL/min/1.73m2 Moderately to severely decreased ??30 - 44 mL/min/1.73m2 Severely decreased ?15 - 29 mL/min/1.73m2 Kidney Failure ?< 15 ??mL/min/1.73m2 *Relative to young adult level If -Turkish multiply value by 1.16. Estimated glomerular filtration [...] was last reviewed 2016. Blood specimen (specimen) 06/29/2018 7:15 AM CDT 06/29/2018 8:07 AM CDT Narrative JAY IZQUIERDO (ARTEMIO) - 06/29/2018 8:39 AM CDT us Emerson Allen MD LAB BLOOD ORDERABLES Final Result JAY IZQUIERDO (ARTEMIO) 1 [facility] Department [place] [address] * Lipid panel (06/29/2018 7:15 AM CDT) Cholesterol 152 30 - 199 mg/dL JAY IZQUIERDO (ARTEMIO) [...] Data was last revised on 2018. Triglycerides 138 <=149 mg/dL JAY IZQUIERDO (ARTEMIO) Comment: Interpretive [...] was last revised on 2018. Non-HDL Cholesterol 110 mg/dL JAY IZQUIERDO (ARTEMIO) Comment: Interpretive Data [...] 2018. Chol/HDL ratio 4 DEEPAK RODNEY) Blood specimen (specimen) 06/29/2018 7:15 AM CDT 06/29/2018 8:07 AM CDT Narrative JAY IZQUIERDO (ARTEMIO) - 06/29/2018 8:39 AM CDT us Emerson Allen MD LAB BLOOD ORDERABLES Final Result JAY IZQUIERDO (ARTEMIO) 1 [facility] Department of Laboratories [place], [place] [id number] * Comprehensive metabolic panel (06/29/2018 7:15 AM CDT) Sodium 142 135 - 145 mmol/L JAY IZQUIERDO (ARTEMIO) Potassium, pl 4.3 3.3 - 4.9 mmol/L JAY IZQUIERDO (ARTEMIO) Chloride 104 97 - 110 mmol/L [facility] ([facility]) CO2 24 22 - 32 mmol/L [facility] ([facility]) Anion gap 14 2 - 15 mmol/L [facility] ([facility]) BUN 10 8 - 25 mg/dL [facility] ([facility]) Creatinine 0.66 0.60 - 1.10 mg/dL [facility] ([place]) [...] 5.0 g/dL [facility] ([place]) Alk phos 95 40 - 130 Units/L [facility] ([facility]) ALT 17 7 - 45 Units/L [facility] ([facility]) AST 15 10 - 45 Units/L [facility] ([facility]) Blood specimen (specimen) 06/29/2018 7:15 AM CDT 06/29/2018 8:07 AM CDT Narrative [facility] ([facility]) - 06/29/2018 8:39 AM CDT us Emerson Allen MD LAB BLOOD ORDERABLES Final Result [facility] ([facility]) 1 [facility] Department [place] [address] * (ABNORMAL) CBC without differential (06/29/2018 7:15 AM CDT) WBC 8.9 3.8 - 9.9 K/cumm [facility] ([place]) Hgb 13.7 11.9 - 15.5 g/dL [facility] ([place]) Hct 42.6 35.6 - 45.5 % [facility] ([place]) Plt 276 150 - 400 K/cumm [facility] ([facility]) MPV 10.2 9.1 - 12.3 fL [facility] ([place]) RBC 4.61 3.90 - 5.20 M/cumm [facility] ([facility]) MCV 92.4 81.3 - 96.4 fL [facility] ([facility]) MCH 29.7 27.1 - 33.3 pg [facility] ([facility]) MCHC 32.2(L) 32.3 - 35.7 g/dL [facility] ([facility]) RDW CV 14.0 11.1 - 14.9 % [facility] ([facility]) RDW SD 47.3 35.7 - 48.1 fL [facility] ([facility]) NRBC abs 0.00 0.00 - 0.01 K/cumm [facility] ([facility]) Blood specimen (specimen) 06/29/2018 7:15 AM CDT 06/29/2018 8:07 AM CDT Narrative [facility] ([facility]) - 06/29/2018 8:12 AM CDT us Emerson Allen MD LAB BLOOD ORDERABLES Final Result [facility] ([facility]) 1 [facility] Department [place] [address] documented in this encounter Visit Diagnoses Diagnosis Gastroesophageal reflux disease without esophagitis Esophageal reflux Dyslipidemia Other and unspecified hyperlipidemia Encounter for screening colonoscopy documented in this encounter Care Teams Beck Tender Relationship Specialty Start Date End Date Emerson Allen MD PCP - General 06/03/17 07/05/21 documented as of this encounter
--- OUTSIDE RECORDS SUMMARY | 2024-10-13 04:10 | XMS_ITS | Encounter Summary ---
Author Organization [facility] Facility Care Team Providers Care Manager Of Construction Name Role Phone Emerson Allen MD Primary Care Provider [phone] Phoenix Loredo MD Unavailable [phone] Encounter Details Date Type Department Care Team (Latest Contact Info) Description 07/08/2019 Travel Social History Tobacco Use Types Packs/Day [...] on file Legal Sex Female 8:44 AM BAR ROLLER Gender Identity Not on file Sexual Orientation Not on file documented as of this encounter Plan of Treatment Upcoming Encounters Date Type Department Care Team (Late st Contact Info) Description 02/04/2025 9:30 AM CDT Hospital Encounter [address] [address] Vic Gaines, DO [address] [address] 02/04/2025 9:30 AM CDT - 02/04/2025 10:00 AM CDT Surgery [address] [address] Vic Gaines, DO 3 [facility] [address] [place] [address] COLONOSCOPY Scheduled Procedures Name Priority Associated Diagnoses Date/Ti me COLONOSCOPY Encounter for screening colonoscopy 02/04/2025 9:30 AM CDT documented as of this encounter Visit Diagnoses Not on filedocumented in this encounter Care Teams Manager Of Construction Relationship Specialty Start Date End Date Emerson Allen MD PCP - General 06/03/17 07/05/21 Phoenix Loredo MD Consulting Physician Cardiology 01/04/19 documented as of this encounter
--- OUTSIDE RECORDS SUMMARY | 2024-10-13 04:10 | XMS_ITS | Encounter Summary ---
Author Organization [facility] Healthcare Address [address] [place] [address] Care Team Providers Care Public Records Researcher Name Role Phone Emerson Allen MD Primary Care Provider [phone] Leticia Loredo MD Unavailable Reason for Referral * Diagnostic Imaging (Routine) - Closed Specialty Diagnoses / Procedures Referred By Contac t Referred To Contact Diagnoses PVD (peripheral vascular disease) (HCC) Procedures US Leticia Farias MD Phone: tel: fax: [facility] Medical Group Referral ID Status Reason Start Date Expiration Date Visits Re quested Visits Authorized [id number] Closed 08/27/2019 03/07/2021 1 1 MIXER Reason for Visit * Diagnostic Imaging (Routine) - Closed Specialty Diagnoses / Procedures Referred By Contac t Referred To Contact Diagnoses PVD (peripheral vascular disease) (HCC) Procedures Leticia Venegas MD Phone: tel: fax: [facility] Medical [facility] Referral ID Status Reason Start Date Expiration Date Visits Re quested Visits Authorized [id number] Closed 08/27/2019 03/07/2021 1 1 Encounter Details Date Type Department Care Team (Latest Contact Info) Description 10/15/2019 11:19 AM DRY MIXER - 10/15/2019 11:59 PM DRY MIXER Hospital Encounter [facility] [address] [place] [address] Leticia Loredo MD 2 [facility] [address] [place] [address] PVD (peripheral vascular disease) ([facility]) Discharge Disposition: Discharge to home or self [...] on file Legal Sex Female 8:44 AM DRY MIXER Gender Identity Not on file Sexual [...] as needed for wheezing 1 Inhaler 2 9 12/10/19 22 aspirin 81 mg tablet Take 81 mg by mouth. 10/29/19 22 atorvastatin (LIPITOR) 40 mg tablet 7 04/17/20 20 clopidogrel (PLAVIX) 75 mg tablet Take 75 mg by mouth. 07/16/20 20 coenzyme Q10 (CO Q-10) 200 mg capsule Take 1 capsule by oral route every day 0 0 7 05/14/20 24 fluticasone propionate (FLONASE) 50 mcg/actuation nasal spray SHAKE LIQUID AND USE 1 SPRAY IN EACH NOSTRIL DAILY 16 mL 2 9 02/13/20 20 Lactobacillus acidophilus (PROBIOTIC) 10 billion cell capsule Take 1 capsule by oral route every day 0 0 7 05/14/20 24 loratadine (CLARITIN) 10 mg tablet Take 1 tablet (10 mg total) by mouth daily 05/14/20 24 multivitamin capsule Take 1 capsule by mouth daily 05/14/20 24 pimecrolimus (ELIDEL) 1 % creamIndications:Ec zema of both hands Apply topically 2 (two) times a day 30 g 1 9 06/21/20 23 raNITIdine (ZANTAC) 300 mg tablet Take 1 tablet (300 mg total) by mouth 2 (two) times a day 60 tablet 11 9 02/20/20 20 SUMAtriptan (IMITREX) 50 mg tabletIndications:O ther migraine without status migrainosus, not intractable TAKE 1 TABLET BY MOUTH EARLY POSSIBLE AFTER ONSET OF MIGRAINE. REPEAT 1 DOSE IN 2 HRS IF HEADACHE RETURNS. 9 tablet 2 9 02/13/20 20 trimethoprim-polymy rick B (POLYTRIM) ophthalmic solutionIndications :Acute conjunctivitis of right eye, unspecified acute conjunctivitis type Administer 1 drop into both eyes every 4 (four) hours while awake 10 mL 9 10/28/19 20 documented as of this encounter Discharge Disposition Disposition Code Departure Means Destination Discharge to home or self care documented in this encounter Plan of Treatment Upcoming Encounters Date Type Department Care Team (Late st Contact Info) Description 02/04/2025 9:30 AM CDT Hospital Encounter [address] [address] Vic Gaines, DO 3 [facility] [address] [place] [address] 02/04/2025 9:30 AM CDT - 02/04/2025 10:00 AM CDT Surgery [address] [address] Vic Gaines, DO 3 [facility] [address] [place] [address] COLONOSCOPY Scheduled Procedures Name Priority Associated Diagnoses Date/Ti me COLONOSCOPY Encounter for screening colonoscopy 02/04/2025 9:30 AM CDT documented as of this encounter Procedures Procedure Name Priority Date/Time Associated Diagnosis Comments US ABE Schedule Routine, Read Routine (OP Routine) 10/15/2019 12:09 PM DRY MIXER PVD (peripheral vascular disease) ([facility]) documented in this encounter Results * US ABE (10/15/2019 12:09 PM DRY MIXER) Anatomical Region Laterality Modality Vascular N/A Ultrasound 10/15/2019 12:0 0 PM DRY MIXER Narrative 10/15/2019 1:42 PM DRY MIXER [address] [place] [address] Ankle Brachial Index Report Patient Name: MOSHE HARTLEY ?? : 1965 (54y 5m) ??Gender: F Study Date: 10/15/2019 12:00:58 PM Facilities Maintenance Worker: SHERICE Order Provider: LETICIA LOREDO Quality: Adequate Ref.Provider: LETICIA LOREDO Procedures: Arterial Report: A bilateral extremities ankle/brachial index was performed. Indications: Peripheral Vascular Disease, and Bilateral leg stents, patient smokes. Conclusions: 1. Normal ankle-brachial index bilaterally(1.0 bilaterally). 2. No change from prior ankle-brachial index study in January 2019. Findings: History: Patient had a previous surgery on . Right Leg: ABE on right is 1.00. Left Leg: ABE on left is 1.00. Measurements: Right Value Left Value Rt Brachial Pressure 134 mmHg Lt Brachial Pressure 142 mmHg Rt Ankle Pressure 134 mmHg Lt Ankle Pressure 142 mmHg Rt Dorsalis Pedis ??112 mmHg Lt Dorsalis Pedis ??130 mmHg Rt ABE 1.00 ??Lt ABE 1.00 Electronically Signed By: Leticia Loredo MD 2019-10-15 13:42:51 DRY MIXER Procedure Note Leticia Loredo MD - 10/15/[address] [place] [address] Ankle Brachial Index Report Patient Name: MOSHE HARTLEY : 1965 (54y 5m) Gender: F Study Date: 10/15/2019 12:00:58 PM Facilities Maintenance Worker: SHERICE Doll Provider: LETICIA LOREDO Quality: Adequate Ref.Provider: LETICIA LOREDO Procedures: Arterial Report: A bilateral extremities ankle/brachial index wasperformed. Indications: Peripheral Vascular Disease, and Bilateral leg stents, patient smokes. Conclusions: 1. Normal ankle-brachial index bilaterally(1.0 bilaterally). 2. No change from prior ankle-brachial index study in January 2019. Findings: History: Patient had a previous surgery on . Right Leg: ABE on right is 1.00. Left Leg: ABE on left is 1.00. Measurements: Right Value Left Value Rt Brachial Pressure 134 mmHg Lt Brachial Pressure 142 mmHg Rt Ankle Pressure 134 mmHg Lt Ankle Pressure 142 mmHg Rt Dorsalis Pedis 112 mmHg Lt Dorsalis Pedis 130 mmHg Rt ABE 1.00 Lt ABE 1.00 Electronically Signed By: Leticia Loredo MD 2019-10-15 13:42:51 DRY MIXER us Leticia Loredo MD IMG US PROCEDURES Final Result documented in this encounter Visit Diagnoses Diagnosis PVD (peripheral vascular disease) (HCC) Unspecified peripheral vascular disease Encounter for screening colonoscopy documented in this encounter Care Teams Public Records Researcher Relationship Specialty Start Date End Date Emerson Allen MD PCP - General 06/03/17 07/05/21 Leticia Loredo MD Consulting Physician Cardiology 01/04/19 documented as of this encounter
--- OUTSIDE RECORDS SUMMARY | 2024-10-13 04:10 | XMS_ITS | Encounter Summary ---
Author Organization [facility] Address [address] [facility] [place] [address] Care Team Providers Care Private Inquiry Agent Name Role Phone Emerson Allen MD Primary Care Provider [phone] Phoenix Loredo MD Unavailable [phone] Reason for Visit * Reason Comments Hyperlipidemia 6 month follow up Encounter Details Date Type Department Care Team (Late st Contact Info) Description 06/19/2020 8:30 AM CDT Office Visit [facility] [address] [place] [address] Emerson Allen MD [address] 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 Gender Identity Not on file Sexual Orientation Not on file documented as of this encounter Last Filed Vital Signs Vital Sign Reading Time Taken Comments Blood Pressure 122/74 06/19/2020 8:20 AM CDT Pulse 79 06/19/2020 8:20 AM CDT Temperature 35.8 ??C (96.4 ??F) 06/19/2020 8:20 AM CD T Respiratory Rate - - Oxygen Saturation 96% 06/19/2020 8:20 AM CDT Inhaled Oxygen Concentration - - Weight 69.9 kg (154 lb 1.6 oz) 06/19/2020 8:20 A M CDT Height 152.4 cm (5') 06/19/2020 8:20 AM CDT Body Mass Index 30.1 06/19/2020 8:20 AM CDT documented in this encounter Patient Instructions * Patient Instructions* Emerson Allen MD - 06/19/2020 8:30 AM CDT Images from the original note were not included. Labs well controlled, everything is in range of the tests ordered. Kidney function, liver function,and cholesterol panel especially Continue current regimen Continue also famotidine which is replacement for ranitidine (recalled). If GERD symptoms kick up, we may need to switch back to omeprazole-class for a few months No other changes on regimen for now, in particular continue flonase and claritin. Recommend getting flu shot when available I strongly recommend you get the Shingrix vaccine and the tetanus vaccine; you may first call your insurance and see if the coverage is there first (as well as where they would prefer you get it done), as they can be expensive; alternatively, your pharmacy may be able to look up the coverage for you as well. 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 ?? 2017 [employer] Information is for End User's use only and may not be sold, redistributed or otherwise used for commercial purposes. All illustrations and images included in CareNotes?? are the copyrighted property of [employer] or [employer] The above information is an resident care aide only. It is not intended as medical advice for individual conditions or treatments. Talk to your doctor, nurse or pharmacist before following any medical regimen to see if it is safe and effective for you. documented in this encounter Progress Notes * Emerson Allen MD - 06/19/2020 8:30 AM CDT Images from the original note were not included. Subjective/Objective Patient ID: Mirtha Cherry is a 55 y.o. female. Chief Complaint Hyperlipidemia (6 month follow up) Hyperlipidemia Pertinent negatives include no chest pain or shortness of breath. Current antihyperlipidemic treatment includes statins. GERD She reports no chest pain, no coughing or no wheezing. Pertinent negatives include no fatigue. She has tried a histamine-2 antagonist for the symptoms. The treatment provided moderate relief. Current Outpatient Medications: ??? albuterol (PROVENTIL,VENTOLIN) [...] (40 mg total) by mouth daily, Disp: 30 tablet, Rfl: 3 ??? clopidogrel (PLAVIX) 75 mg tablet, Take 75 mg by mouth., Disp: , Rfl: ??? coenzyme Q10 (CO Q-10) 200 mg capsule, Take 1 capsule by oral route every day, Disp: 0, Rfl: 0 ??? famotidine (Pepcid) 40 mg tablet, Take 1 tablet (40 mg total) by mouth 2 (two) times a day, Disp: 180 tablet, Rfl: 3 ??? fluticasone propionate (FLONASE) 50 mcg/actuation nasal [...] 1 ??? SUMAtriptan (IMITREX) 50 mg tablet, TAKE 1 TABLET BY MOUTH EARLY POSSIBLE AFTER ONSET OF MIGRAINE. REPEAT 1 DOSE IN 2 HRS IF HEADACHE RETURNS., Disp: 9 tablet, Rfl: 2 Review of Systems Constitutional: Negative. Negative for fatigue and fever. HENT: Positive for congestion. Negative for ear discharge and ear pain. Respiratory: Negative for cough, shortness of breath and wheezing. Cardiovascular: Negative for chest pain and palpitations. Gastrointestinal: Negative. Genitourinary: Negative. Musculoskeletal: Negative for neck pain. Neurological: Negative for headaches. Psychiatric/Behavioral: Negative. BP 122/74 (BP Location: Right arm, Patient Position: Sitting) Pulse 79 Temp (!) 35.8 ??C (96.4 ??F) (Temporal) Ht 152.4 cm (5') Wt 69.9 kg (154 lb 1.6 oz) LMP (LMP Unknown) SpO2 96% BMI30.10 kg/m?? Physical Exam Vitals signs reviewed. Constitutional: Appearance: She is well-developed. She is obese. HENT: Head: Normocephalic and atraumatic. Right Ear: Hearing, ear canal and external ear normal. No decreased hearing noted. A middle ear effusion is present. There is no impacted cerumen. Tympanic membrane is not perforated or erythematous. Left Ear: Hearing, ear canal and external ear normal. No decreased hearing noted. A middle ear effusion is present. There is no impacted cerumen. Tympanic membrane is not perforated or erythematous. Eyes: Conjunctiva/sclera: Conjunctivae normal. Pupils: Pupils are equal, round, and reactive to light. Neck: Musculoskeletal: Normal range of motion and neck supple. Cardiovascular: Rate and Rhythm: Normal rate and regular rhythm. Heart sounds: Normal heart sounds. No murmur. No friction rub. No gallop. Pulmonary: Effort: Pulmonary effort is normal. Breath sounds: Normal breath sounds. Abdominal: General: Bowel sounds are normal. Palpations: Abdomen is soft. Tenderness: There is no abdominal tenderness. Musculoskeletal: Normal range of motion. Skin: General: Skin is warm and dry. Capillary Refill: Capillary refill takes less than 2 seconds. Neurological: Mental Status: She is alert and oriented to person, place, and time. Psychiatric: Behavior: Behavior normal. Lab on 06/13/2020 Component Date Value Ref Range Status ??? Vitamin D, 25-hydroxy 06/13/2020 32 30 - 80 ng/mL Final ??? Cholesterol 06/13/2020 144 30 - 199 mg/dL Final Comment: Interpretive [...] last revised on 2018. ? ? Triglycerides 06/13/2020 120 <=149 mg/dL Final Comment: Interpretive Data Ages [...] last revised on 2018. ? ? HDL 06/13/2020 40 >=40 mg/dL Final Comment: Interpretive Data [...] revised on 2018. ? ? LDL, calculated 06/13/2020 80 <=129 mg/dL Final Comment: Interpretive Data Ages [...] last revised on 2018. ??? Non-HDL Cholesterol 06/13/2020 104 mg/dL Final Comment: Interpretive Data Ages < [...] last revised on 2018. ??? Chol/HDL ratio 06/13/2020 4 Final ??? Sodium 06/13/2020 140 135 - 145 mmol/L Final ??? Potassium, pl 06/13/2020 4.2 3.3 - 4.9 mmol/L Final ??? Chloride 06/13/2020 104 97 - 110 mmol/L Final ??? CO2 06/13/2020 26 22 - 32 mmol/L Final ??? Anion gap 06/13/2020 10 2 - 15 mmol/L Final ??? BUN 06/13/2020 15 8 - 25 mg/dL Final ??? Creatinine 06/13/2020 0.91 0.60 - 1.10 mg/dL Final ??? Glucose 06/13/2020 98 70 - 199 mg/dL Final Comment: Interpretive [...] data was last revised 2017. ??? Calcium 06/13/2020 9.5 8.5 - 10.3 mg/dL Final ? ? Bilirubin, total 06/13/2020 <0.2 0.1 - 1.2 mg/dL Final ??? Protein, pl 06/13/2020 6.5 6.5 - 8.5 g/dL Final ??? Albumin 06/13/2020 4.3 3.5 - 5.0 g/dL Final ??? Alk phos 06/13/2020 92 40 - 130 Units/L Final ??? ALT 06/13/2020 20 7 - 45 Units/L Final ??? AST 06/13/2020 20 10 - 45 Units/L Final Slightly Hemolyzed Specimen ??? WBC 06/13/2020 9.2 3.8 - 9.9 K/cumm Final ??? Hgb 06/13/2020 14.6 11.9 - 15.5 g/dL Final ??? Hct 06/13/2020 43.9 35.6 - 45.5 % Final ??? Plt 06/13/2020 230 150 - 400 K/cumm Final ??? MPV 06/13/2020 10.8 9.1 - 12.3 fL Final ??? RBC 06/13/2020 4.75 3.90 - 5.20 M/cumm Final ??? MCV 06/13/2020 92.4 81.3 - 96.4 fL Final ??? MCH 06/13/2020 30.7 27.1 - 33.3 pg Final ??? MCHC 06/13/2020 33.3 32.3 - 35.7 g/dL Final ??? RDW CV 06/13/2020 12.9 11.1 - 14.9 % Final ??? RDW SD 06/13/2020 43.8 35.7 - 48.1 fL Final ??? NRBC abs 06/13/2020 0.00 0.00 - 0.01 K/cumm Final ??? Neutrophil abs 06/13/2020 5.1 1.7 - 6.5 K/cumm Final ??? Imm gran abs 06/13/2020 0.0 0.0 - 0.1 K/cumm Final ??? Lymphocyte abs 06/13/2020 3.1 0.8 - 3.3 K/cumm Final ??? Monocyte abs 06/13/2020 0.7 0.2 - 0.8 K/cumm Final ??? Eosinophil abs 06/13/2020 0.2 0.0 - 0.5 K/cumm Final ??? Basophil abs 06/13/2020 0.0 0.0 - 0.1 K/cumm Final ??? Neutrophil pct 06/13/2020 55.4 % Final Comment: Interpretive Data Percent cell count reference ranges are not reported, since discordance with absolute values may lead to misinterpretation of CBC data. Current Interpretive Data was last revised on 2018. ??? Imm gran pct 06/13/2020 0.2 % Final Comment: Interpretive Data Percent cell count reference ranges are not reported, since discordance with absolute values may lead to misinterpretation of CBC data. Current Interpretive Data was last revised on 2018. ??? Lymphocyte pct 06/13/2020 34.3 % Final Comment: Interpretive Data Percent cell count reference ranges are not reported, since discordance with absolute values may lead to misinterpretation of CBC data. Current Interpretive Data was last revised on 2018. ??? Monocyte pct 06/13/2020 7.7 % Final Comment: Interpretive Data Percent cell count reference ranges are not reported, since discordance with absolute values may lead to misinterpretation of CBC data. Current Interpretive Data was last revised on 2018. ??? Eosinophil pct 06/13/2020 2.0 % Final Comment: Interpretive Data Percent cell count reference ranges are not reported, since discordance with absolute values may lead to misinterpretation of CBC data. Current Interpretive Data was last revised on 2018. ??? Basophil pct 06/13/2020 0.4 % Final Comment: Interpretive Data Percent cell count reference ranges are not reported, since discordance with absolute values may lead to misinterpretation of CBC data. Current Interpretive Data was last revised on 2018. ??? GFR 06/13/2020 71 mL/min/1.73 m2 Final Comment: Interpretive Data Reference Interval Normal >/= 90 mL/min/1.73m2 Mildly decreased* 60 - 89 mL/min/1.73m2 Mildly to moderately decreased 45 - 59 mL/min/1.73m2 Moderately to severely decreased 30 - 44 mL/min/1.73m2 Severely decreased 15 - 29 mL/min/1.73m2 Kidney Failure < 15 mL/min/1.73m2 *Relative to young adult level If -[place] multiply value by 1.16. Estimated glomerular filtration [...] orders for this visit: Mixed hyperlipidemia (Primary) BMI 30.0-30.9,adult PVD (peripheral vascular disease) (CMS/HCC) Gastroesophageal reflux disease without esophagitis BMI Follow-up includes: nutrition counseling and exercise counseling. Labs well controlled, everything is in range of the tests ordered. Kidney function, liver function,and cholesterol panel especially Continue current regimen Continue also famotidine which is replacement for ranitidine (recalled). If GERD symptoms kick up, we may need to switch back to omeprazole-class for a few months No other changes on regimen for now, in particular continue flonase and claritin. Recommend getting flu shot when available May be periodic fluctuation in middle ear pressure as weather changes, so it is important that you adhere to the recommendations to control reflux (see handout) Emerson Allen MD This office note has been partially dictated using [employer] software. documented in this encounter Plan of Treatment Upcoming Encounters Date Type Department Care Team (Late st Contact Info) Description 02/04/2025 9:30 AM CDT Hospital Encounter [address] [address] Vic Gaines, DO 3 [facility] [address] [place] [address] 02/04/2025 9:30 AM CDT - 02/04/2025 10:00 AM CDT Surgery [address] [address] Vic Gaines, DO 3 [facility] [address] [place] [address] COLONOSCOPY Scheduled Procedures Name Priority Associated Diagnoses Date/Ti nc COLONOSCOPY Encounter for screening colonoscopy 02/04/2025 9:30 AM CDT documented as of this encounter Visit Diagnoses Diagnosis Mixed hyperlipidemia- Primary BMI 30.0-30.9,adult PVD (peripheral vascular disease) (HCC) Unspecified peripheral vascular disease Gastroesophageal reflux disease without esophagitis Esophageal reflux Encounter for screening colonoscopy documented in this encounter Care Teams Private Inquiry Agent Relationship Specialty Start Date End Date Emerson Allen MD PCP - General 06/03/17 07/05/21 Phoenix Loredo MD Consulting Physician Cardiology 01/04/19 documented as of this encounter
--- OUTSIDE RECORDS SUMMARY | 2024-10-13 04:10 | XMS_ITS | Encounter Summary ---
Author Organization [facility] Medical [facility] Address [address] [place] [address] Care Team Providers Care Alterations Tailor Name Role Phone Emerson Allen MD Primary Care Provider [phone] Leticia Loredo MD Unavailable [phone] Reason for Referral * Diagnostic Imaging (Routine) - Closed Specialty Diagnoses / Procedures Referred By Contac t Referred To Contact Diagnoses PVD (peripheral vascular disease) (HCC) Procedures 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 Gender Identity Not on file Sexual Orientation Not on file documented as of this encounter Plan of Treatment Upcoming Encounters Date Type Department Care Team (Late st Contact Info) Description 02/04/2025 9:30 AM CDT Hospital Encounter [address] [address] Vic Gaines, DO 3 [facility] [address] [place] [address] 02/04/2025 9:30 AM CDT - 02/04/2025 10:00 AM CDT Surgery [address] [address] Vic Gaines, DO 3 [facility] [address] [place] [address] COLONOSCOPY Scheduled Procedures Name Priority Associated Diagnoses Date/Ti me COLONOSCOPY Encounter for screening colonoscopy 02/04/2025 9:30 AM CDT documented as of this encounter Results * US ABE (10/15/2019 12:09 PM EVP [employer] LEADERSHIP) Anatomical Region Laterality Modality Vascular N/A Ultrasound 10/15/2019 12:0 0 PM EVP [employer]LO[employer] PRODUCT LEADERSHIP Narrative 10/15/2019 1:42 PM EVP [employer] LEADERSHIP [address] [address] Ankle Brachial Index Report Patient Name: MOSHE HARTLEY ?? : 1965 (54y 5m) ??Gender: F Study Date: 10/15/2019 12:00:58 PM Certified Orthoptist: SHERICE Doll Provider: LETICIA LOREDO Quality: Adequate [...] Signed By: Leticia Loredo MD 2019-10-15 13:42:51 EVP [employer] LEADERSHIP Procedure Note Leticia Loredo MD - 10/15/[address] [address] Ankle Brachial Index Report Patient Name: MOSHE HARTLEY : 1965 (54y 5m) Gender: F Study Date: 10/15/2019 12:00:58 PM Certified Orthoptist: SHERICE Order Provider: LETICIA LOREDO Quality: Adequate [...] Signed By: Leticia Loredo MD 2019-10-15 13:42:51 EVP [employer] PR[employer] LEADERSHIP us Leticia Loredo MD [facility] US PROCEDURES Final Result documented in this encounter Visit Diagnoses Diagnosis PVD (peripheral vascular disease) (HCC)- Primary Unspecified peripheral vascular disease PVD (peripheral vascular disease) (HCC) Unspecified peripheral vascular disease Encounter for screening colonoscopy documented in this encounter Care Teams Alterations Tailor Relationship Specialty Start Date End Date Emerson Allen MD PCP - General 06/03/17 07/05/21 Leticia Loredo MD Consulting Physician Cardiology 01/04/19 documented as of this encounter
--- OUTSIDE RECORDS SUMMARY | 2024-10-13 04:10 | XMS_ITS | Encounter Summary ---
Author Organization [facility] Address [address] [place] [address] Care Team Providers Care Director Mobile Name Role Phone Emerson Allen MD Primary Care Provider [phone] Reason for Referral * Diagnostic Imaging (Routine) - Closed Specialty Diagnoses / Procedures Referred By Denton pickard Referred To Contact Diagnoses Thyroid nodule Procedures US Thyroid Emerson Allen MD Phone: tel: fax: [address] [address] Referral ID Status Reason Start Date Expiration Date Visits Re quested Visits Authorized [id number] Closed 07/06/2018 01/15/2020 1 1 AGE SUPERVISOR Reason for Visit * Diagnostic Imaging (Routine) - Closed Specialty Diagnoses / Procedures Referred By Denton pickard Referred To Contact Diagnoses Thyroid nodule Procedures US Thyroid Emerson Allen MD Phone: tel: fax: [address] [address] Referral ID Status Reason Start Date Expiration Date Visits Re quested Visits Authorized [id number] Closed 07/06/2018 01/15/2020 1 1 Encounter Details Date Type Department Care Team (Latest Contact Info) Description 08/14/2018 6:56 AM COTTAGE SUPERVISOR - 08/14/2018 11:59 PM COTTAGE SUPERVISOR Hospital Encounter [facility] [address] [place] [address] Emerson Allen MD [address] [place] [address] Thyroid nodule Discharge Disposition: Discharge to home [...] on file 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 Swish in mouth and spit out. 280 mL 07/06/2018 8 albuterol HFA (PROVENTIL HFA,VENTOLIN HFA,PROAIR HFA) 90 mcg/actuation inhaler Inhale 2 puffs every 6 (six) hours as needed for wheezing. 9 aspirin 81 mg tablet Take 81 mg by mouth. 2 atorvastatin (LIPITOR) 40 mg tablet 05/29/2017 0 clopidogrel (PLAVIX) 75 mg tablet Take 75 mg by mouth. 0 coenzyme Q10 (CO Q-10) 200 mg capsule Take 1 capsule by oral route every day 0 0 12/07/2016 4 fluticasone (FLONASE) 50 mcg/actuation nasal spray Administer 1 spray into each nostril daily. 9 Lactobacillus acidophilus (PROBIOTIC) 10 billion cell capsule Take 1 capsule by oral route every day 0 0 12/07/2016 4 loratadine (CLARITIN) 10 mg tablet Take 1 tablet (10 mg total) by mouth daily 4 multivitamin capsule Take 1 capsule by mouth daily 4 omeprazole (PriLOSEC) 40 mg capsuleIndication s:Gastroesophagea l reflux disease without esophagitis Take 1 capsule (40 mg total) by mouth daily. 90 capsule 3 07/06/2018 9 SUMAtriptan (IMITREX) 50 mg tabletIndications :Migraine TAKE 1 TABLET BY MOUTH EARLY POSSIBLE AFTER ONSET OF MIGRAINE. MAY REPEAT AFTER 2 HOURS IF HEADACHE RETURNS. 9 tablet 3 07/06/2018 9 documented as of this encounter Discharge Disposition Disposition Code Departure Means Destination Discharge to home or self care documented in this encounter Plan of Treatment Upcoming Encounters Date Type Department Care Team (Late st Contact Info) Description 02/04/2025 9:30 AM CDT Hospital Encounter [address] [address] Vic Gaines, DO 3 [facility] [place] [place] [address] 02/04/2025 9:30 AM CDT - 02/04/2025 10:00 AM CDT Surgery [address] [address] Vic Gaines, DO 3 [facility] [place] [address] [place] [address] COLONOSCOPY Scheduled Procedures Name Priority Associated Diagnoses Date/Ti me COLONOSCOPY Encounter for screening colonoscopy 02/04/2025 9:30 AM CDT documented as of this encounter Procedures Procedure Name Priority Date/Time Associated Diagnosis Comments US THYROID Schedule Routine, Read Routine (OP Routine) 08/14/2018 7:22 AM COTTAGE SUPERVISOR Thyroid nodule documented in this encounter Results * US Thyroid (08/14/2018 7:22 AM COTTAGE SUPERVISOR) Anatomical Region Laterality Modality Head and Neck N/A Ultrasound 08/14/2018 9:15 AM COTTAGE SUPERVISOR Impressions 08/14/2018 9:22 AM COTTAGE SUPERVISOR 1. ??Multinodular goiter with a few small hypoechoic nodules bilaterally that are stable to smaller compared to 02/03/2012. Electronically signed by: Franco Bucio Jr., M.D. Narrative 08/14/2018 9:22 AM COTTAGE SUPERVISOR US THYROID HISTORY: Thyroid nodule. COMPARISON: Ultrasound [...] Bucio Jr., M.D. us Emerson Allen MD IMG US PROCEDURES Final Res ult documented in this encounter Visit Diagnoses Diagnosis Thyroid nodule Nontoxic uninodular goiter Encounter for screening colonoscopy documented in this encounter Care Teams Director Mobile Relationship Specialty Start Date End Date Emerson Allen MD PCP - General 06/03/17 07/05/21 documented as of this encounter
--- OUTSIDE RECORDS SUMMARY | 2024-10-13 04:10 | XMS_ITS | Encounter Summary ---
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 Gender Identity Not on file Sexual Orientation Not on file documented as of this encounter Plan of Treatment Upcoming Encounters Date Type Department Care Team (Late st Contact Info) Description 02/04/2025 9:30 AM CDT Hospital Encounter [address] [address] Vic Gaines, DO [address] [address] 02/04/2025 9:30 AM CDT - 02/04/2025 10:00 AM CDT Surgery [address] [address] Vic Gaines, DO 3 [facility] [address] [place] [address] COLONOSCOPY Scheduled Procedures Name Priority Associated Diagnoses Date/Ti me COLONOSCOPY Encounter for screening colonoscopy 02/04/2025 9:30 AM CDT documented as of this encounter Visit Diagnoses Not on filedocumented in this encounter Care Teams Magneto Repairer Relationship Specialty Start Date End Date Emerson Allen MD PCP - General 06/03/17 07/05/21 Phoenix Loredo MD Consulting Physician Cardiology 01/04/19 documented as of this encounter
--- OUTSIDE RECORDS SUMMARY | 2024-10-13 04:10 | XMS_ITS | Encounter Summary ---
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 Gender Identity Not on file Sexual Orientation Not on file documented as of this encounter Plan of Treatment Upcoming Encounters Date Type Department Care Team (Late st Contact Info) Description 02/04/2025 9:30 AM CDT Hospital Encounter [address] [address] Vic Gaines, DO [address] [address] 02/04/2025 9:30 AM CDT - 02/04/2025 10:00 AM CDT Surgery [address] [address] Vic Gaines, DO 3 [facility] [address] [place] [address] COLONOSCOPY Scheduled Procedures Name Priority Associated Diagnoses Date/Ti me COLONOSCOPY Encounter for screening colonoscopy 02/04/2025 9:30 AM CDT documented as of this encounter Visit Diagnoses Not on filedocumented in this encounter Care Teams Slider Assembler Relationship Specialty Start Date End Date Emerson Allen MD PCP - General 06/03/17 07/05/21 Phoenix Loredo MD Consulting Physician Cardiology 01/04/19 documented as of this encounter
--- OUTSIDE RECORDS SUMMARY | 2024-10-13 04:10 | XMS_ITS | Encounter Summary ---
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 Gender Identity Not on file Sexual Orientation Not on file documented as of this encounter Discharge Disposition Disposition Code Departure Means Destination Discharge to home or self care documented in this encounter Plan of Treatment Upcoming Encounters Date Type Department Care Team (Late st Contact Info) Description 02/04/2025 9:30 AM CDT Hospital Encounter [facility] [address] [place] [address] Vic Gaines, DO [address] [place] [place] [address] 02/04/2025 9:30 AM CDT - 02/04/2025 10:00 AM CDT Surgery [facility] [address] [place] [address] Vic Gaines, DO [address] [place] [address] [place] [address] COLONOSCOPY Scheduled Procedures Name Priority Associated Diagnoses Date/Ti me COLONOSCOPY Encounter for screening colonoscopy 02/04/2025 9:30 AM CDT documented as of this encounter Procedures Procedure Name Priority Date/Time Associated Diagnosis Comments EGFR Routine 06/29/2019 7:27 AM CDT Mixed hyperlipidemia DIFFERENTIAL AUTO Routine 06/29/2019 7:2 7 AM CDT Mixed hyperlipidemia CBC WITH AUTO DIFFERENTIAL Routine 06/29/2019 7:27 AM CDT Mixed hyperlipidemia LIPID PANEL Routine 06/29/2019 7:27 AM CDT Mixed hyperlipidemia COMPREHENSIVE METABOLIC PANEL Routine 06/29/2019 7:27 AM CDT Mixed hyperlipidemia documented in this encounter Results * eGFR (06/29/2019 7:27 AM CDT) eGFR 88 mL/min/1.7 3 m2 [facility] ([place]) Comment: Interpretive Data Reference Interval Normal ?>/= 90 mL/min/1.73m2 Mildly decreased* ? 60 - 89 mL/min/1.73m2 Mildly to moderately decreased ?45 - 59 mL/min/1.73m2 Moderately to severely decreased ??30 - 44 mL/min/1.73m2 Severely decreased ?15 - 29 mL/min/1.73m2 Kidney Failure ?< 15 ??mL/min/1.73m2 *Relative to young adult level If -Afghan multiply value by 1.16. Estimated glomerular filtration [...] was last reviewed 2016. Blood specimen (specimen) 06/29/2019 7:27 AM CDT 06/29/2019 8:35 AM CDT Emerson Allen MD LAB BLOOD ORDERABLES Final Result [facility] [address] [place] [address] * (ABNORMAL) Differential, auto (06/29/2019 7:27 AM CDT) Neutrophil abs 4.8 1.7 - 6.5 K/cumm [facility] ([place]) Imm gran abs 0.0 0.0 - 0.1 K/cumm [facility] ([place]) Lymphocyte abs 3.5(H) 0.8 - 3.3 K/cumm [facility] ([place]) Monocyte abs 0.7 0.2 - 0.8 K/cumm [facility] ([place]) Eosinophil abs 0.2 0.0 - 0.5 K/cumm [facility] ([place]) Basophil abs 0.0 0.0 - 0.1 K/cumm [facility] ([place]) Neutrophil pct 52.3 % [facility] ([place]) Comment: Interpretive [...] was last revised on 2018. Lymphocyte pct 38.1 % [facility] ([place]) Comment: Interpretive Data Percent cell count reference ranges are not reported, since discordance with absolute values may lead to misinterpretation of CBC data. Current Interpretive Data was last revised on 2018. Monocyte pct 7.2 % [facility] ([place]) Comment: Interpretive Data Percent cell count reference ranges are not reported, since discordance with absolute values may lead to misinterpretation of CBC data. Current Interpretive Data was last revised on 2018. Eosinophil pct 1.8 % [facility] ([place]) Comment: Interpretive [...] last revised on 2018. Blood specimen (specimen) 06/29/2019 7:27 AM CDT 06/29/2019 8:35 AM CDT us Emerson Allen MD LAB BLOOD ORDERABLES Final Result [facility] ([place] [address] [place], [place] [id number] * CBC with auto differential (06/29/2019 7:27 AM CDT) WBC 9.2 3.8 - 9.9 K/cumm [facility] ([place]) Hgb 14.9 11.9 - 15.5 g/dL [facility] ([place]) Hct 45.1 35.6 - 45.5 % [facility] ([place]) Plt 216 150 - 400 K/cumm [facility] ([place]) MPV 10.8 9.1 - 12.3 fL [facility] ([place]) RBC 4.89 3.90 - 5.20 M/cumm [facility] ([place]) MCV 92.2 81.3 - 96.4 fL [facility] ([place]) MCH 30.5 27.1 - 33.3 pg [facility] ([place]) MCHC 33.0 32.3 - 35.7 g/dL [facility] ([place]) RDW CV 13.4 11.1 - 14.9 % [facility] ([place]) RDW SD 45.9 35.7 - 48.1 fL [facility] ([place]) NRBC abs 0.00 0.00 - 0.01 K/cumm [facility] ([place]) Blood specimen (specimen) 06/29/2019 7:27 AM CDT 06/29/2019 8:35 AM CDT Emerson Allen MD LAB BLOOD ORDERABLES Final Result Performing Organization Address City/State/[facility] Co de Phone Number [facility] ([place]) [address] [place] [address] * (ABNORMAL) Lipid panel (06/29/2019 7:27 AM CDT) Cholesterol 125 30 - 199 mg/dL [facility] ([place]) [...] on 2018. Triglycerides 82 <=149 mg/dL [facility] ([place]) Comment: Interpretive [...] LDL, calculated 71 <=129 mg/dL [facility] ([place]) Comment: Interpretive [...] on 2018. Non-HDL Cholesterol 87 mg/dL [facility] ([place]) Comment: Interpretive Data [...] 3 [facility] ([place]) Blood specimen (specimen) 06/29/2019 7:27 AM CDT 06/29/2019 8:35 AM CDT us Emerson Allen MD LAB BLOOD ORDERABLES Final Result [facility] ([place]) [address] [place] [address] * (ABNORMAL) Comprehensive metabolic panel (06/29/2019 7:27 AM CDT) Sodium 144 135 - 145 mmol/L [facility] ([place]) Potassium, pl 4.1 3.3 - 4.9 [...] ([place]) ALT 21 7 - 45 Units/L [facility] ([place] AST 17 10 - 45 Units/L [facility] ([place]) Blood specimen (specimen) 06/29/2019 7:27 AM CDT 06/29/2019 8:35 AM CDT us Emerson Allen MD LAB BLOOD ORDERABLES Final Result [facility] ([place] [address] [place] [address] documented in this encounter Visit Diagnoses Diagnosis Mixed hyperlipidemia Encounter for screening colonoscopy documented in this encounter Care Teams Battery Tester And Repairer Relationship Specialty Start Date End Date Emerson Allen MD PCP - General 06/03/17 07/05/21 Phoenix Loredo MD Consulting Physician Cardiology 01/04/19 documented as of this encounter
--- OUTSIDE RECORDS SUMMARY | 2024-10-13 04:10 | XMS_ITS | Encounter Summary ---
Author Organization [facility] Address [address] [place] [address] Care Team Providers Care Drapery Operator Name Role Phone Emerson Allen MD Primary Care Provider [phone] Phoenix Loredo MD Unavailable [phone] Encounter Details Date Type Department Care Team (Late st Contact Info) Description 12/30/2019 Telephone [facility] [address] [place] [address] Emerson Allen MD [facility] [address] [place] [address] Social History Tobacco Use [...] file 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 No / Unsure 12/30/2019 8:07 AM CDT documented as of this encounter Miscellaneous Notes * Telephone Encounter - Darline Duarte MA - 12/30/2019 3:07 PM CDT Spoke with Mirtha, she is just going to keep her appointment that is scheduled in February * Telephone Encounter - Emerson Allen MD - 12/30/2019 2:24 PM CDT Can she do the virtual visit? I would rather do that * Telephone Encounter - Darline Duarte MA - 12/30/2019 12:00 PM CDT Mirtha called back, she is asking that since her blood work came back ok if she can just reschedule for 6 months out and get an order for blood work? * Telephone Encounter - Darline Duarte MA - 12/30/2019 11:43 AM CDT Left message for Mirtha to call back. * Telephone Encounter - Emerson Allen MD - 12/30/2019 10:58 AM CDT Everything is in range. * Telephone Encounter - Darline Daurte MA - 12/30/2019 8:09 AM CDT Called Mirtha to discuss changing her appointment on February 05 to a telemedicine visit instead ofhaving her come into the office. She did not want to do a telemedicine visit and opted to just RS her appointment for 8 weeks out. She is asking if you can take a look at her blood work and have someone from our office give her a call with the results? documented in this encounter Plan of Treatment Upcoming Encounters Date Type Department Care Team (Late st Contact Info) Description 02/04/2025 9:30 AM CDT Hospital Encounter [address] [address] Vic Gaines, DO 3 [facility] [place] [address] [place] [address] 02/04/2025 9:30 AM CDT - 02/04/2025 10:00 AM CDT Surgery [address] [address] Vic Gaines, DO 3 [facility] [place] [address] [place] [address] COLONOSCOPY Scheduled Procedures Name Priority Associated Diagnoses Date/Ti me COLONOSCOPY Encounter for screening colonoscopy 02/04/2025 9:30 AM CDT documented as of this encounter Visit Diagnoses Not on filedocumented in this encounter Care Teams Drapery Operator Relationship Specialty Start Date End Date Emerson Allen MD PCP - General 06/03/17 07/05/21 Phoenix Loredo MD Consulting Physician Cardiology 01/04/19 documented as of this encounter
--- OUTSIDE RECORDS SUMMARY | 2024-10-13 04:10 | XMS_ITS | Encounter Summary ---
Author Organization [facility] Facility Care Team Providers Care Truck Unloader Name Role Phone Emerson Allen MD Primary Care Provider [phone] Phoenix Loredo MD Unavailable [phone] Encounter Details Date Type Department Care Team (Latest Contact Info) Description 05/20/2019 Travel Social History Tobacco Use Types Packs/Day Years Used Date Smoking Tobacco: Every Day Cigarettes Smokeless Tobacco: Never Comments:Smoking History Pac ks/day: 0.5 Packs Alcohol Use Standard Drinks/Week Comments No 0 (1 standard drink = 0.6 oz pur e alcohol) Comments No Sex and Gender Information Value Date Recorded Sex Assigned at Not on file 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 Gender Identity Not on file Sexual Orientation Not on file documented as of this encounter Plan of Treatment Upcoming Encounters Date Type Department Care Team (Late st Contact Info) Description 02/04/2025 9:30 AM CDT Hospital Encounter [address] [address] Vic Gaines, DO 3 [facility] [place] [address] [place] [address] 02/04/2025 9:30 AM CDT - 02/04/2025 10:00 AM CDT Surgery [address] [address] Vic Gaines, DO [address] [address] COLONOSCOPY Scheduled Procedures Name Priority Associated Diagnoses Date/Ti me COLONOSCOPY Encounter for screening colonoscopy 02/04/2025 9:30 AM CDT documented as of this encounter Visit Diagnoses Not on filedocumented in this encounter Care Teams Truck Unloader Relationship Specialty Start Date End Date Emerson Allen MD PCP - General 06/03/17 07/05/21 Phoenix Loredo MD Consulting Physician Cardiology 01/04/19 documented as of this encounter
--- OUTSIDE RECORDS SUMMARY | 2024-10-13 04:11 | XMS_ITS | Encounter Summary ---
Author Organization [facility] Address [address] [place] [address] Care Team Providers Care Sr. Manager Marketing Name Role Phone Emerson Allen MD Primary Care Provider [phone] Phoenix Loredo MD Unavailable [phone] Encounter Details Date Type Department Care Team (Late st Contact Info) Description 06/09/2017 Orders Only [facility] Health Information Management [address] [place], [place] [id number] Scanning, Provider Social History Tobacco Use Types Packs/Day Years Used Date Smoking Tobacco: Heavy Smoker Comments:Smoking History Pac ks/day: 0.5 Packs Alcohol Use Standard Drinks/Week Comments No 0 (1 standard drink = 0.6 oz pur e alcohol) PHQ-2 Answer Date Recorded PHQ-2 Total Score (If total score is 3 or more points, staff should administer the PHQ-9) 0 06/19/2020 Comments Unknown Sex and Gender Information Value Date Recorded Sex Assigned at Not on file 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 Gender Identity Not on file Sexual [...] Description 02/04/2025 9:30 AM CDT Hospital Encounter [facility] [address] [place] [address] Vic Gaines, DO 3 [facility] [address] [facility] [place] [address] [place] [address] 02/04/2025 9:30 AM CDT - 02/04/2025 10:00 AM CDT Surgery [facility] [address] [place] [address] Vic Gaines, DO 3 [facility] [address] [facility] [place] [address] [place] [address] COLONOSCOPY Scheduled Procedures Name Priority Associated Diagnoses Date/Ti me COLONOSCOPY Encounter for screening colonoscopy 02/04/2025 9:30 AM CDT documented as of this encounter Procedures Procedure Name Priority Date/Time Associated Diagnosis Comments SCAN - RADIOLOGY/IMAGING 06/09/2017 3:39 PM CDT documented in this encounter Results * SCAN - RADIOLOGY/IMAGING (06/09/2017 3:39 PM CDT) Anatomical Region Laterality Modality Other us Provider Scanning Final Result documented in this encounter Visit Diagnoses Not on filedocumented in this encounter Care Teams Sr. Manager Marketing Relationship Specialty Start Date End Date Emerson Allen MD PCP - General 06/03/17 07/05/21 Phoenix Loredo MD Consulting Physician Cardiology 01/04/19 documented as of this encounter
--- OUTSIDE RECORDS SUMMARY | 2024-10-13 04:11 | XMS_ITS | Encounter Summary ---
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 No / Unsure 12/30/2019 8:07 AM CDT documented as of this encounter Plan of Treatment Upcoming Encounters Date Type Department Care Team (Late Contact Info) Description 02/04/2025 9:30 AM CDT Hospital Encounter [facility] [address] [place] [address] Vic Gaines, DO 3 [facility] [address] [place] [place] [address] 02/04/2025 9:30 AM CDT - 02/04/2025 10:00 AM CDT Surgery [facility] [address] [place] [address] Vic Gaines, DO 3 [facility] [place] [place] [address] COLONOSCOPY Scheduled Procedures Name Priority Associated Diagnoses Date/Ti me COLONOSCOPY Encounter for screening colonoscopy 02/04/2025 9:30 AM CDT documented as of this encounter Procedures Procedure Name Priority Date/Time Associated Diagnosis Comments SCAN - RADIOLOGY/IMAGING 01/03/2018 2:35 PM CDT documented in this encounter Results * SCAN - RADIOLOGY/IMAGING (01/03/2018 2:35 PM CDT) Anatomical Region Laterality Modality Other us Provider Scanning Final Result documented in this encounter Visit Diagnoses Not on filedocumented in this encounter Care Teams Console Attendant Relationship Specialty Start Date End Date Emerson Allen MD PCP - General 06/03/17 07/05/21 Phoenix Loredo MD Consulting Physician Cardiology 01/04/19 documented as of this encounter
--- OUTSIDE RECORDS SUMMARY | 2024-10-13 04:11 | XMS_ITS | Encounter Summary ---
Author Organization [facility] Address [address] [facility] [address] [place] [address] Care Team Providers Care Log Handling Equipment Operator Name Role Phone Emerson Allen MD Primary Care Provider [phone] Reason for Visit * Reason Comments Thrush Earache AD Encounter Details Date Type Department Care Team ([facility] st Contact Info) Description 04/27/2018 4:30 PM CDT Office Visit [facility] [address] [place] [address] Evelina Alonoz NP [address] [place] [address] [address] [place] [address] Thrush (Primary Dx) Social History Tobacco Use Types Packs/Day Years Used Date Smoking Tobacco: Every Day Cigarettes Smokeless Tobacco: Never Comments:Smoking History Pac ks/day: 0.5 Packs Alcohol Use Standard Drinks/Week Comments No 0 (1 standard drink = 0.6 oz pur e alcohol) Comments Unknown Sex and Gender Information Value Date Recorded Sex Assigned at Not on file 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 Gender Identity Not on file Sexual Orientation Not on file documented as of this encounter Last Filed Vital Signs Vital Sign Reading Time Taken Comments Blood Pressure 119/75 04/27/2018 4:28 PM CDT Pulse 99 04/27/2018 4:28 PM CDT Temperature 37.4 ??C (99.4 ??F) 04/27/2018 4:28 PM CD T Respiratory Rate 17 04/27/2018 4:28 PM CDT Oxygen Saturation 95% 04/27/2018 4:28 PM CDT Inhaled Oxygen Concentration - - Weight 75.3 kg (166 lb) 04/27/2018 4:28 PM CDT Height 154.9 cm (5' 0.98 ) 04/27/2018 4:28 PM CD T Body Mass Index 31.39 04/27/2018 4:28 PM CDT documented in this encounter Patient Instructions * Patient Instructions* Evelina Alonzo, INDUSTRIAL PLANT CUSTODIAN - 04/27/2018 4:40 PM CDT Patient Education Oral Candidiasis COMPLIANCE REPRESENTATIVE DEALER: Oral candidiasis , or thrush, is a fungal infection that affects the inside of your mouth. Seek care immediately if: ?? You have trouble swallowing and your jaw and neck are stiff. ?? You are dizzy, thirsty, or have a dry mouth. ?? You are urinating little or not at all. ?? You cannot eat or drink because of the pain. Contact your healthcare provider if: ?? You have a fever. ?? You have nausea, vomiting, or diarrhea. ?? Your signs and symptoms get worse, even after treatment. ?? You have questions or concerns about your condition or care. Common symptoms include the following: ?? White or whitish-yellow patches in the mouth that look like milk curds ?? Redness or bleeding under the patches ?? Sore and painful mouth, with cracking or tearing on the corners ?? Bright red tongue that may feel like it is burning ?? Trouble swallowing and tasting ?? Swelling under dentures Treatment for oral candidiasis includes antifungal medicine that helps kill the fungus that caused your oral candidiasis. This medicine may be a pill or a solution that you gargle. Remove dentures before you gargle. Prevent oral candidiasis: [place] your teeth, gums, and tongue after you eat and before you go to sleep. Use a toothbrush with soft bristles. See your dentist for regular exams. Remove your dentures when you sleep, or at least 6 hours each day. Clean your dentures and soak them in denture washroom cleaner. Let them air dry after soaking. Follow up with your healthcare provider as directed: Write down your questions so you remember to ask them during your visits. ?? 2017 [employer] Information is for End User's use only and may not be sold, redistributed or otherwise used for commercial purposes. All illustrations and images included in CareNotes?? are the copyrighted property of [employer], [employer]. or [employer]. The above information is an parent aide only. It is not intended as medical advice for individual conditions or treatments. Talk to your doctor, nurse or pharmacist before following any medical regimen to see if it is safe and effective for you. Patient Education Oral Candidiasis COMPLIANCE REPRESENTATIVE DEALER: Oral candidiasis , or thrush, is a fungal infection that affects the inside of your mouth. Seek care immediately if: ?? You have trouble swallowing and your jaw and neck are stiff. ?? You are dizzy, thirsty, or have a dry mouth. ?? You are urinating little or not at all. ?? You cannot eat or drink because of the pain. Contact your healthcare provider if: ?? You have a fever. ?? You have nausea, vomiting, or diarrhea. ?? Your signs and symptoms get worse, even after treatment. ?? You have questions or concerns about your condition or care. Common symptoms include the following: ?? White or whitish-yellow patches in the mouth that look like milk curds ?? Redness or bleeding under the patches ?? Sore and painful mouth, with cracking or tearing on the corners ?? Bright red tongue that may feel like it is burning ?? Trouble swallowing and tasting ?? Swelling under dentures Treatment for oral candidiasis includes antifungal medicine that helps kill the fungus that caused your oral candidiasis. This medicine may be a pill or a solution that you gargle. Remove dentures before you gargle. Prevent oral candidiasis: [place] your teeth, gums, and tongue after you eat and before you go to sleep. Use a toothbrush with soft bristles. See your dentist for regular exams. Remove your dentures when you sleep, or at least 6 hours each day. Clean your dentures and soak them in denture washroom cleaner. Let them air dry after soaking. Follow up with your healthcare provider as directed: Write down your questions so you remember to ask them during your visits. ?? 2017 [employer] Information is for End User's use only and may not be sold, redistributed or otherwise used for commercial purposes. All illustrations and images included in CareNotes?? are the copyrighted property of [employer], [employer]. or [employer]. The above information is an parent aide only. It is not intended as medical advice for individual conditions or treatments. Talk to your doctor, nurse or pharmacist before following any medical regimen to see if it is safe and effective for you. Patient Education Nystatin (By mouth) Nystatin (capri-STAT-in) Treats fungus infections. Brand Name(s): There may be other brand names for this medicine. When This Medicine Should Not Be Used: You should not use this medicine if you have ever had an allergic reaction to nystatin. How to Use This Medicine: Lozenge, Capsule, Liquid, Powder for Suspension, Tablet ?? Your doctor will tell you how much medicine to use and how often. Use the medicine for as long as your doctor told you to, even if your symptoms are gone. ?? Shake the oral liquid well just before each dose. Measure your dose with the dropper that comes with the medicine. Keep the medicine in your mouth for as long as possible. Swish it around, gargle,and swallow. ?? Add 1/8 teaspoonful of the dry powder to 1/2 cup of water. Stir well. Keep this mixture in your mouth for as long as possible. Swish it around, gargle, and swallow. ?? Swallow the tablet whole. Do not crush or chew. ?? Let the lozenge melt slowly in your mouth. Do not chew or swallow it whole. ?? Do not give the lozenge to infants or children younger than 5 years old. If a dose is missed: ?? Use the missed dose as soon as possible. ?? If it is almost time for your next regular dose, wait until then to use your medicine and skip the missed dose. ?? You should not use two doses at the same time. How to Store and Dispose of This Medicine: ?? Store the lozenges or powder in the refrigerator. ?? Store the oral liquid or tablets at room temperature in a tightly closed container away from heat, direct light, and moisture. Do not freeze. ?? Ask your pharmacist, doctor, or health caregiver about the best way to dispose of any outdated medicine or medicine no longer needed. ?? Keep all medicine out of the reach of children. Drugs and Foods to Avoid: Ask your doctor or pharmacist before using any other medicine, including insr-jju-rgmzjyd medicines, vitamins, and herbal products. Warnings While Using This Medicine: ?? Make sure you let your doctor know if you are or . Possible Side Effects While Using This Medicine: Call your doctor right away if you notice any of these side effects: ?? Allergic reaction: Itching or hives, swelling in your face or hands, swelling or tingling in your mouth or throat, chest tightness, trouble breathing If you notice these less serious side effects, talk with your doctor: ?? Diarrhea. ?? Mild stomach upset. ?? Nausea. If you notice other side effects that you think are caused by this medicine, tell your doctor. Call your doctor for medical advice about side effects. You may report side effects to FDA at 4-351-WQA-4492 ?? 2017 [employer] Information is for End User's use only and may not be sold, redistributed or otherwise used for commercial purposes. The above information is an parent aide only. It is not intended as medical advice for individual conditions or treatments. Talk to your doctor, nurse or pharmacist before following any medical regimen to see if it is safe and effective for you. documented in this encounter Ordered Prescriptions Prescription Sig Dispense Quantity Refills Last Filled Start Date End Date nystatin 100,000 unit/mL suspensionIndicatio ns:Thrush Take 5 mL (500,000 Units total) by mouth 4 (four) times a day for 5 days. Swish in mouth and swallow. 60 mL 04/27/2018 05/02/2018 documented in this encounter Progress Notes * Evelina Alonzo NP - 04/27/2018 4:30 PM CDT Subjective/Objective Patient ID: Mirtha Cherry is a 53 y.o. female. Chief Complaint Thrush and Earache (AD) Ms. Cherry experiences intermittent thrush, usually related to nasal steroid for allergic rhinitis Review of Systems Constitutional: Negative. HENT: Negative. Respiratory: Negative. Cardiovascular: Negative. Genitourinary: Negative. BP 119/75 (BP Location: Left arm, Patient Position: Sitting) Pulse 99 Temp 37.4 ??C (99.4 ??F) (Oral) Resp 17 Ht 154.9 cm (5' 0.98 ) Wt 75.3 kg (166 lb) SpO2 95% BMI 31.39 kg/m?? Physical Exam Constitutional: She appears well-developed and well-nourished. No distress. HENT: Head: Normocephalic. Right Ear: Hearing, tympanic membrane, external ear and ear canal normal. Left Ear: Hearing, tympanic membrane and external ear normal. Nose: Right sinus exhibits no maxillary sinus tenderness and no frontal sinus tenderness. Left sinus exhibits no maxillary sinus tenderness and no frontal sinus tenderness. Mouth/Throat: Oral lesions (tounge - thick white coating ) present. Cardiovascular: Normal rate, regular rhythm, normal heart sounds and intact distal pulses. Pulmonary/Chest: Effort normal and breath sounds normal. Skin: She is not diaphoretic. Psychiatric: Her behavior is normal. Judgment and thought content normal. Assessment/Plan Diagnoses and all orders for this visit: Thrush (Primary) - nystatin 100,000 unit/mL suspension; Take 5 mL (500,000 Units total) by mouth 4 (four) times a day for 5 days. Swish in mouth and swallow. We discussed dose, use, and potential side effects medication. Risks and interactions reviewed withpatient. ??Indications for testing reviewed. Patient has been instructed to contact the office withany signs or symptoms that are of concern. The patient is to contact the office with any change in,worsening, or non improvement in condition. Patient verbalized understanding. The patient was giventhe opportunity to ask all questions and to have all questions answered. Patient is agreement with the plan of care. Discontinue flonase, try over the counter claritin documented in this encounter Plan of Treatment Upcoming Encounters Date Type Department Care Team (Late st Contact Info) Description 02/04/2025 9:30 AM CDT Hospital Encounter [address] [address] Vic Gaines, DO 3 [facility] [address] [place] [address] 02/04/2025 9:30 AM CDT - 02/04/2025 10:00 AM CDT [address] [address] Vic Gianes, DO 3 [facility] [address] [place] [address] COLONOSCOPY Scheduled Procedures Name Priority Associated Diagnoses Date/Ti me COLONOSCOPY Encounter for screening colonoscopy 02/04/2025 9:30 AM CDT documented as of this encounter Visit Diagnoses Diagnosis Thrush- Primary Candidiasis of mouth Encounter for screening colonoscopy documented in this encounter Care Teams Log Handling Equipment Operator Relationship Specialty Start Date End Date Emerson Allen MD PCP - General 06/03/17 07/05/21 documented as of this encounter
--- OUTSIDE RECORDS SUMMARY | 2024-10-13 04:11 | XMS_ITS | Encounter Summary ---
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 8.5 g 5 06/14/2017 8 aspirin 81 mg tablet Take 81 mg by mouth. 2 atorvastatin (LIPITOR) 40 mg tablet 05/29/2017 0 clopidogrel (PLAVIX) 75 mg tablet Take 75 mg by mouth. 0 coenzyme Q10 (CO Q-10) 200 mg capsule Take 1 capsule by oral route every day 0 0 12/07/2016 4 fluticasone (FLONASE) 50 mcg/actuation nasal spray Administer 2 sprays into each nostril daily. 16 g 5 06/14/2017 8 Lactobacillus acidophilus (PROBIOTIC) 10 billion cell capsule Take 1 capsule by oral route every day 0 0 12/07/2016 4 loratadine (CLARITIN) 10 mg tablet Take 10 mg by mouth. 8 omeprazole (PriLOSEC) 40 mg capsule Take by mouth. 05/30/2016 8 raNITIdine (ZANTAC) 150 mg tablet Take 150 mg by mouth. 8 SUMAtriptan (IMITREX) 50 mg tabletIndications: Migraine Take by mouth. 05/09/2016 7 varenicline (CHANTIX PIPER) 0.5 mg (11)- 1 mg (42) tabletIndications: Tobacco dependence syndrome Use as directed on package instructions, try to quit smoking after 1 week. 53 tablet 06/14/2017 7 documented as of this encounter Discharge Disposition Disposition Code Departure Means Destination Discharge to home or self care documented in this encounter Plan of Treatment Upcoming Encounters Date Type Department Care Team (Late st Contact Info) Description 02/04/2025 9:30 AM CDT Hospital Encounter [address] [address] Vic Gaines, DO [address] [address] 02/04/2025 9:30 AM CDT - 02/04/2025 10:00 AM CDT Surgery [address] [address] Vic Gaines, DO [address] [facility] [address] [address] COLONOSCOPY Scheduled Procedures Name Priority Associated Diagnoses Date/Ti me COLONOSCOPY Encounter for screening colonoscopy 02/04/2025 9:30 AM CDT documented as of this encounter Procedures Procedure Name Priority Date/Time Associated Diagnosis Comments XR CHEST PA LATERAL 2 VIEWS Schedule Routine, Read Routine (OP Routine) 06/14/2017 10:20 PM CDT Tobacco dependence syndrome Mild intermittent asthma without complication ERYTHROCYTE SEDIMENTATION RATE Routine 06/14/2017 5:06 PM CDT RHEUMATOID FACTOR Routine 06/14/2017 5:0 6 PM CDT DISCHARGE LABORATORY CUMULATIVE REPORT 06/14/2017 12:00 AM CDT documented in this encounter Results * XR Chest Pa Lateral 2 Vw (06/14/2017 10:20 PM CDT) Anatomical Region Laterality Modality Body, Chest N/A Radiographic Deandra ging 06/14/2017 10:2 0 PM CDT Narrative 06/14/2017 10:20 PM CDT XR Chest 2 Views ?[id number] ??Acc#: ??[id number] DATE OF EXAM: ??Sep ??2016 ?? XR Chest 2 Views ?[id number] HISTORY: TOBACCO DEPENDENCE SYNDROME. ?? Mild intermittent asthma without complication. COMPARISON: None available. FINDINGS: Heart size is normal. ??The lungs are mildly hyperexpanded with diaphragmatic flattening. ??There is no lung consolidation or pleural effusion. IMPRESSION: MILDLY HYPEREXPANDED BUT OTHERWISE CLEAR LUNGS. Electronically signed by: Paulino Michel M.D. Interpreting Physician: ??PAULINO MICHEL M.D. ??Read on: ??Sep ??2016 10:35P Transcribed by: ??PSC ??On: Sep ??2016 10:33P Approved Electronically by: ?PAULINO DE PAZ M.D. ??on: ??Sep ??2016 10:33P Ordering DR: DR [place] ALLEN Attending DR: DR [place] ALLEN Attending: ??DR [place] ALLEN Requesting: ??DR [place] ALLEN Requesting Fax: ??[phone] Attending Fax: ??[phone] Attending ID: ??[id number] Requesting ID: ??[id number] Report To 1 ID: ??[id number] Report To 1 Name: ??DR [place] ALLEN Report To 1 FAX: ??[phone] [employer] Order #: ??[id number] Procedure Note Miscellaneous, Not In File / Provider, MD Charles - 06/14/2017 XR Chest 2 Views [id number] Acc#: [id number] DATE OF EXAM: Jun 14 2017 XR Chest 2 Views [id number] HISTORY: TOBACCO DEPENDENCE SYNDROME. Mild intermittent asthma without complication. COMPARISON: None available. FINDINGS: Heart size is normal. The lungs are mildly hyperexpanded with diaphragmatic flattening. There is no lung consolidation or pleural effusion. IMPRESSION: MILDLY HYPEREXPANDED BUT OTHERWISE CLEAR LUNGS. Electronically signed by: Paulino Michel M.D. Interpreting Physician: PAULINO MICHEL M.D. Read on: Jun 14 2017 10:35P Transcribed by: [facility] On: Jun 14 2017 10:33P Approved Electronically by: PAULINO MICHEL M.D. on: Jun 14 2017 10:33P Ordering DR: DR [place] ALLEN Attending DR: DR [place] ALLEN Attending: DR [place] ALLEN Requesting: DR [place] ALLEN Requesting Attending Attending ID: [id number] Requesting ID: [id number] Report To 1 ID: [id number] Report To 1 Name: DR [place] ALLEN Report To 1 FAX: [phone] [employer] Order #: [id number] Emerson Allen MD IMG XR PROCEDURES Final Res ult * Rheumatoid factor (06/14/2017 5:06 PM CDT) Rheumatoid factor, quant <<20.0 0 - 19 IUnits/mL [facility] ([place]) Blood specimen (specimen) 06/14/2017 5:06 PM CDT 06/16/2017 7:42 AM CDT Emerson Allen MD LAB BLOOD ORDERABLES Final Result Performing Organization Address City/[facility] Co de Phone Number JAY IZQUIERDO ([place]) [address] [facility] [place] [address] * Erythrocyte sedimentation rate (06/14/2017 5:06 PM CDT) Erythrocyte sedimentation rate 10 0 - 35 mm/hr JAY IZQUIERDO ([place]) Blood specimen (specimen) 06/14/2017 5:06 PM CDT 06/14/2017 5:18 PM CDT Emerson Allen MD LAB BLOOD ORDERABLES Final Result Performing Organization Address [facility] de Phone Number TOSHABAILEY FELECIA ([place]) [address] [facility] [place] [address] * DISCHARGE LABORATORY CUMULATIVE REPORT (06/14/2017 12:00 AM CDT) Narrative 06/14/2017 12:00 AM CDT Ordered by an unspecified provider. Charles Provider LAB BLOOD ORDERABLES Ivette l Result documented in this encounter Visit Diagnoses Diagnosis Tobacco dependence syndrome Tobacco use disorder Mild intermittent asthma without complication Encounter for screening colonoscopy documented in this encounter Care Teams Senior Manager Mergers & Acquisitions Relationship Specialty Start Date End Date Emerson Allen MD PCP - General 06/03/17 07/05/21 documented as of this encounter
--- OUTSIDE RECORDS SUMMARY | 2024-10-13 04:11 | XMS_ITS | Encounter Summary ---
Author Organization [facility] Healthcare Address [address] [place] [address] Care Team Providers Care Supervisor Knitting Name Role Phone Francisca Hou Primary Care Provider [phone] [phone] Encounter Details Date Type Department Care Team (Late st Contact Info) Description 06/01/2017 9:02 PM CDT - 06/01/2017 10:38 PM CDT Emergency [facility] Emergency Department [address] [place] [address] Burt Gonzales Discharge Disposition: Discharge to home or self care Social History Tobacco Use Types Packs/Day Years Used Date Smoking Tobacco: Heavy Smoker Comments:Smoking History Pac ks/day: 0.5 Packs Alcohol Use Standard Drinks/Week Comments No 0 (1 standard drink = 0.6 oz pur e alcohol) Comments Unknown Sex and Gender Information Value Date Recorded Sex Assigned at Not on file 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 Gender Identity Not on file Sexual Orientation Not on file documented as of this encounter Medications at Time of Discharge aspirin (ECOTRIN LOW STRENGTH) 81 mg tablet take 1 tablet by oral route every day 0 0 07/10/2014 7 atorvastatin (LIPITOR) 40 mg tablet 05/29/2017 0 atorvastatin (LIPITOR) 80 mg tablet take 1 tablet by oral route every day 0 0 12/07/2016 7 clopidogrel (PLAVIX) 75 mg tablet take 1 tablet by oral route every day 0 0 12/07/2016 09/06/201 7 coenzyme Q10 (CO Q-10) 200 mg capsule Take 1 capsule by oral route every day 0 0 12/07/2016 4 Lactobacillus acidophilus (PROBIOTIC) 10 billion cell capsule Take 1 capsule by oral route every day 0 0 12/07/2016 4 loratadine (CLARITIN) 10 mg tablet take 1 tablet by oral route every day 0 0 07/10/2014 7 omeprazole (PriLOSEC) 40 mg capsule TAKE 1 CAPSULE BY ORAL ROUTE EVERY DAY 30 MINUTES PRIOR TO BREAKFAST 90 2 05/30/2016 7 omeprazole (PriLOSEC) 40 mg capsule Take by mouth. 05/30/2016 8 raNITIdine (ZANTAC) 300 mg tablet take 1 tablet by oral route every day at bedtime 90 4 05/25/2016 7 SUMAtriptan (IMITREX) 50 mg tablet take 1 Tablet by oral route once with fluids as early as possible after the onset of a migraine attack;may repeat after 2 hours if headache returns, not to exceed 200mgin 24hrs 9 5 07/10/2014 7 SUMAtriptan (IMITREX) 50 mg tabletIndications :Migraine Take by mouth. 05/09/2016 7 documented as of this encounter Discharge Disposition Disposition Code Departure Means Destination Discharge to home or self care documented in this encounter Plan of Treatment Upcoming Encounters Date Type Department Care Team (Late st Contact Info) Description 02/04/2025 9:30 AM CDT Hospital Encounter [address] [address] Vic Gaines, DO 3 [facility] [address] [place] [address] 02/04/2025 9:30 AM CDT - 02/04/2025 10:00 AM CDT Surgery [address] [address] Vic Gaines, DO 3 [facility] [address] [place] [address] COLONOSCOPY Scheduled Procedures Name Priority Associated Diagnoses Date/Ti me COLONOSCOPY Encounter for screening colonoscopy 02/04/2025 9:30 AM CDT documented as of this encounter Procedures Procedure Name Priority Date/Time Associated Diagnosis Comments EGFR STAT 06/01/2017 9:49 PM CDT DIFFERENTIAL AUTO STAT 06/01/2017 9:4 9 PM CDT CBC WITH AUTO DIFFERENTIAL STAT 06/01/2017 9:49 PM CDT APTT STAT 06/01/2017 9:49 PM CDT PROTIME-INR STAT 06/01/2017 9:49 PM CDT D-DIMER, QUANTITATIVE STAT 06/01/2017 9:49 PM CDT COMPREHENSIVE METABOLIC PANEL STAT 06/01/2017 9:49 PM CDT DISCHARGE LABORATORY CUMULATIVE REPORT 06/01/2017 12:00 AM CDT documented in this encounter Results * eGFR (06/01/2017 9:49 PM CDT) eGFR >60 mL/min/1.7 3 m2 [facility] ([place]) Comment: Interpretive Data Reference Interval Normal ?>/= 90 mL/min/1.73m2 Mildly decreased* ? 60 - 89 mL/min/1.73m2 Mildly to moderately decreased ?45 - 59 mL/min/1.73m2 Moderately to severely decreased ??30 - 44 mL/min/1.73m2 Severely decreased ?15 - 29 mL/min/1.73m2 Kidney Failure ?< 15 ??mL/min/1.73m2 *Relative to young adult level If -Guyanese multiply value by 1.16. Estimated glomerular filtration [...] was last reviewed 2016. Blood specimen (specimen) 06/01/2017 9:49 PM CDT 06/01/2017 9:53 PM CDT us Garth SHAFFER LAB BLOOD ORDERABLES Final R esult [facility] ([place]) [address] [facility] [place] [address] * (ABNORMAL) Comprehensive metabolic panel (06/01/2017 9:49 PM CDT) Sodium 142 135 - 145 mmol/L [facility] ([place]) Potassium 4.3 3.5 - 5.1 mmol/L [facility] ([place]) Chloride 104 97 - 110 mmol/L [facility] ([place]) CO2 25 22 - 32 mmol/L [facility] ([place]) Anion gap 13 8 - 16 mmol/L [facility] ([place]) Glucose 105 70 - 199 mg/dL [facility] ([place]) Comment: Interpretive Data Note:The glucose is assumed non fasting Fastin-99 mg/dL Random: ??70-199 mg/dL Either a fasting glucose > 126 mg/dL or a random glucose > 200 mg/dL plus symptoms is diagnostic of diabetes when confirmed on another day. Fasting values > 100 mg/dL but < 125 mg/dL are diagnostic of impaired fasting glucose. Current interpretive data was last revised on 2014. BUN 6.4(L) 8.0 - 25.0 mg/dL [facility] ([place]) Creatinine 0.79 0.60 - 1.10 mg/dL [facility] ([place]) BUN/creat ratio 8(L) 10 - 20 [facility] ([place]) Calcium 9.2 8.6 - 10.2 mg/dL [facility] ([place]) Protein, sr 6.6 6.0 - 8.4 g/dL [facility] ([place]) Albumin 4.2 3.6 - 5.0 g/dL [facility] ([place]) Alk phos 109 40 - 130 Units/L [facility] ([place]) ALT 13 5 - 45 Units/L [facility] ([place]) AST 13 10 - 40 Units/L [facility] ([place]) Bilirubin, total <0.2 <=1.2 mg/dL [facility] ([place]) Blood specimen (specimen) 06/01/2017 9:49 PM CDT 06/01/2017 9:53 PM CDT Garth SHAFFER LAB BLOOD ORDERABLES Final R esult Performing Organization Address City/[facility] Co de Phone Number [facility] ([place]) [address] [facility] [place] [address] * D-dimer, quantitative (06/01/2017 9:49 PM CDT) D-dimer 185 150 - 230 ng/mL D-DU [facility] ([place]) Comment: Interpretive Data This D-dimer test is approved by the FDA to exclude suspected PE and DVT in outpatients when the result is <230 ng/mL in conjunction with a pre-test probability score of low or moderate using the Wells criteria. Current Interpretive Data was last revised on 2015. Blood specimen (specimen) 06/01/2017 9:49 PM CDT 06/01/2017 9:53 PM CDT us Garth SHAFFER LAB BLOOD ORDERABLES Final R esult [facility] ([place]) [address] [facility] [place] [address] * Protime-INR (06/01/2017 9:49 PM CDT) PT 10.7 9.5 - 12.5 sec [facility] ([place]) INR 0.95 0.90 - 1.20 [facility] ([place]) Comment: Interpretive Data Recommended ranges for Protime INR: 2.0 - 3.0 Most indications for Warfarin therapy (e.g. Treatment of DVT, PE, bioprosthetic valve replacement, prophylaxis venous thrombosis, atrial fibrillation). 2.5 - 3.5 Mechanical mitral valve or dual mechanical mitral and Aortic valve replacement. Current Interpretive Data was last revised on 2015. Blood specimen (specimen) 06/01/2017 9:49 PM CDT 06/01/2017 9:53 PM CDT Garth SHAFFER LAB BLOOD ORDERABLES Final R esult [facility] ([place]) 1 [facility] [place] [address] * aPTT (06/01/2017 9:49 PM CDT) aPTT 29.6 25.0 - 37.0 sec [facility] ([place]) Blood specimen (specimen) 06/01/2017 9:49 PM CDT 06/01/2017 9:53 PM CDT Garth SHAFFER LAB BLOOD ORDERABLES Final R esult [facility] ([place]) 1 [facility] [place] [address] * Differential, auto (06/01/2017 9:49 PM CDT) Neutrophil pct 55.3 44.0 - 80.0 % [facility] ([place]) Imm gran pct 0.3 0.0 - 1.0 % [facility] ([place]) Lymphocyte pct 38.2 13.0 - 44.0 % [facility] ([place]) Monocyte pct 4.4 2.0 - 11.0 % [facility] ([place]) Eosinophil pct 1.6 0.0 - 6.0 % [facility] ([place]) Basophil pct 0.2 0.0 - 3.0 % [facility] ([place]) Neutrophil abs 4.73 1.60 - 7.00 K/cumm [facility] ([place]) Imm gran abs 0.03 0.00 - 0.20 K/cumm [facility] ([place]) Lymphocyte abs 3.28 0.50 - 4.30 K/cumm [facility] ([place]) Monocyte abs 0.38 0.10 - 1.00 K/cumm [facility] ([place]) Eosinophil abs 0.14 0.00 - 0.60 K/cumm [facility] ([place]) Basophil abs 0.02 0.00 - 0.30 K/cumm [facility] ([place]) Blood specimen (specimen) 06/01/2017 9:49 PM CDT 06/01/2017 9:53 PM CDT us Garth SHAFFER LAB BLOOD ORDERABLES Final R esult [facility] ([place]) 1 [facility] [place] [address] * CBC with auto differential (06/01/2017 9:49 PM CDT) WBC 8.58 3.80 - 9.80 K/cumm [facility] ([place]) RBC 4.49 3.90 - 5.00 M/cumm [facility] ([place]) Hgb 13.7 12.1 - 15.1 g/dL [facility] ([place]) Hct 39.4 36.1 - 44.3 % [facility] ([place]) MCV 87.8 80.0 - 100.0 fL [facility] ([place]) MCH 30.5 26.7 - 33.7 pg [facility] ([place]) MCHC 34.8 32.7 - 36.0 g/dL [facility] ([place]) RDW CV 13.3 11.5 - 14.6 % [facility] ([place]) Plt 238 140 - 440 K/cumm [facility] ([place]) MPV 9.7 8.0 - 12.0 fL [facility] ([place]) NRBC 0.0 0.0 - 0.0 % [facility] ([place]) NRBC abs 0.00 0.00 - 0.00 K/cumm [facility] ([place]) Blood specimen (specimen) 06/01/2017 9:49 PM CDT 06/01/2017 9:53 PM CDT us Garth SHAFFER LAB BLOOD ORDERABLES Final R esult [facility] ([place]) [address] [facility] [place] [address] * DISCHARGE LABORATORY CUMULATIVE REPORT (06/01/2017 12:00 AM CDT) Narrative 06/01/2017 12:00 AM CDT Ordered by an unspecified provider. Historical Provider LAB BLOOD ORDERABLES Ivette l Result documented in this encounter Visit Diagnoses Not on filedocumented in this encounter Care Teams Supervisor Knitting Relationship Specialty Start Date End Date Francisca Hou DO 4 [facility] [address] [place] [address] PCP - General 06/01/17 06/02/17 documented as of this encounter
--- OUTSIDE RECORDS SUMMARY | 2024-10-13 04:11 | XMS_ITS | Encounter Summary ---
Author Organization [facility] Medical Group Address [address] [facility] [address] [place] [address] Care Team Providers Care Field Investigator Name Role Phone Emerson Allen MD Primary Care Provider [phone] Reason for Visit * Reason Comments Sinusitis facial pain, drainag e x 2 weeks. Encounter Details Date Type Department Care Team (Late st Contact Info) Description 08/22/2017 5:30 PM DIRECTOR OF EARLY CHILDHOOD Office Visit [facility] [address] [facility] [place] [id number] Roxana Maria, CRISTIANO [address] [place] [address] Acute non-recurrent maxillary sinusitis (Primary Dx) Social History Tobacco Use Types Packs/Day Years Used Date Smoking Tobacco: Heavy Smoker Smokeless Tobacco: Never Comments:Smoking History Pac ks/day: 0.5 Packs Alcohol Use Standard Drinks/Week Comments No 0 (1 standard drink = 0.6 oz pur e alcohol) Comments Unknown Sex and Gender Information Value Date Recorded Sex Assigned at Not on file 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 Sex Female 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 DIRECTOR OF 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 CHILDHOOD Gender Identity Not on file Sexual Orientation Not on file documented as of this encounter Last Filed Vital Signs Vital Sign Reading Time Taken Comments Blood Pressure 110/82 08/22/2017 5:45 PM DIRECTOR OF EARLY CHILDHOOD Pulse 85 08/22/2017 5:45 PM DIRECTOR OF EARLY CHILDHOOD Temperature 36.7 ??C (98.1 ??F) 08/22/2017 5:45 PM CS T Respiratory Rate 16 08/22/2017 5:45 PM DIRECTOR OF EARLY CHILDHOOD Oxygen Saturation 98% 08/22/2017 5:45 PM DIRECTOR OF EARLY CHILDHOOD Inhaled Oxygen Concentration - - Weight 72.1 kg (159 lb) 08/22/2017 5:45 PM DIRECTOR OF EARLY CHILDHOOD Height 154.9 cm (5' 1 ) 08/22/2017 5:45 PM DIRECTOR OF EARLY CHILDHOOD Body Mass Index 30.04 08/22/2017 5:45 PM DIRECTOR OF EARLY CHILDHOOD documented in this encounter Patient Instructions * Patient Instructions* Roxana Ramon NP - 08/22/2017 5:30 PM DIRECTOR OF EARLY CHILDHOOD Complete antibiotics and other meds as prescribed Take OTC decongestants for congestion- Sudafed/Mucinex Motrin/Tylenol for pain/fever Antihistamines- Zyrtec, Benadryl can be used for runny nose. Drink plenty of water & get plenty of rest A humidifier may also help with congestion Follow up with your PCP in 3-5 days if you are not getting better Flonase 2puffs daily Nasal rinses CTOR OF EARLY CHILDHOOD documented in this encounter Ordered Prescriptions Prescription Sig Dispense Quantity Refills Last Filled Start Date End Date methylPREDNISolone (MEDROL DOSEPACK) 4 mg tabletIndications: Acute non-recurrent maxillary sinusitis Take as directed on package. 21 tablet 08/22/2017 8 amoxicillin-clavul anate (AUGMENTIN) 875-125 mg per tabletIndications: Acute non-recurrent maxillary sinusitis Take 1 tablet by mouth 2 (two) times a day for 10 days. 20 tablet 08/22/2017 7 documented in this encounter Progress Notes * Roxana Ramon NP - 08/22/2017 5:30 PM CST Subjective/Objective Patient ID: Mirtha Cherry is a 52 y.o. female. Chief Complaint Sinusitis (facial pain, drainage x 2 weeks. ) Presents to clinic for sinus pressure, sore throat, nasal drainage, cough w green mucus x2 weeks. She has taken mucinex, nasal rinses. Sinusitis This is a new problem. The current episode started 1 to 4 weeks ago. The problem is unchanged. Associated symptoms include congestion, coughing, headaches, sinus pressure and a sore throat. Past treatments include oral decongestants. The treatment provided no relief. Review of Systems Constitutional: Negative. HENT: Positive for congestion, postnasal drip, rhinorrhea, sinus pressure and sore throat. Respiratory: Positive for cough. Cardiovascular: Negative. Neurological: Positive for headaches. Physical Exam Constitutional: She is oriented to person, place, and time. She appears well- developed and well-nourished. HENT: Right Ear: Hearing, tympanic membrane, external ear and ear canal normal. Left Ear: Hearing, tympanic membrane, external ear and ear canal normal. Nose: Right sinus exhibits maxillary sinus tenderness. Left sinus exhibits maxillary sinus tenderness. Mouth/Throat: Oropharynx is clear and moist. Tonsillar erythema Eyes: Conjunctivae are normal. Cardiovascular: Normal rate and regular rhythm. Pulmonary/Chest: Effort normal. She has rhonchi in the right upper field and the left upper field. Lymphadenopathy: She has no cervical adenopathy. Neurological: She is alert and oriented to person, place, and time. Skin: Skin is warm and dry. Psychiatric: She has a normal mood and affect. Vitals: 08/22/17 1745 BP: 110/82 BP Location: Left arm Patient Position: Sitting Pulse: 85 Resp: 16 Temp: 36.7 ??C (98.1 ??F) TempSrc: Oral SpO2: 98% Weight: 72.1 kg (159 lb) Height: 154.9 cm (5' 1 ) Assessment/Plan Complete antibiotics and other meds as prescribed Take OTC decongestants for congestion- Sudafed/Mucinex Motrin/Tylenol for pain/fever Antihistamines- Zyrtec, Benadryl can be used for runny nose. Drink plenty of water & get plenty of rest A humidifier may also help with congestion Follow up with your PCP in 3-5 days if you are not getting better Flonase 2puffs daily Nasal rinses RX Augmentin/medrol Diagnoses and all orders for this visit: 1. Acute non-recurrent maxillary sinusitis (Primary) - amoxicillin-clavulanate (AUGMENTIN) 875-125 mg per tablet; Take 1 tablet by mouth 2 (two) times aday for 10 days. - methylPREDNISolone (MEDROL DOSEPACK) 4 mg tablet; Take as directed on package. Disposition- Discussed medications dosages, usage & potential [...] the plan of care Roxana Ramon NP CTOR OF EARLY CHILDHOOD documented in this encounter Plan of Treatment Upcoming Encounters Date Type Department Care Team (Late st Contact Info) Description 02/04/2025 9:30 AM CDT Hospital Encounter [address] [address] Vic Gaines, DO [address] [address] 02/04/2025 9:30 AM CDT - 02/04/2025 10:00 AM CDT Surgery [address] [address] Vic Gaines, DO [address] [address] COLONOSCOPY Scheduled Procedures Name Priority Associated Diagnoses Date/Ti hi COLONOSCOPY Encounter for screening colonoscopy 02/04/2025 9:30 AM CDT documented as of this encounter Visit Diagnoses Diagnosis Acute non-recurrent maxillary sinusitis- Primary Encounter for screening colonoscopy documented in this encounter Care Teams Field Investigator Relationship Specialty Start Date End Date Emerson Allen MD PCP - General 06/03/17 07/05/21 documented as of this encounter
--- OUTSIDE RECORDS SUMMARY | 2024-10-13 04:11 | XMS_ITS | Encounter Summary ---
Author Organization [facility] Medical Group Address [address] [facility] [address] [place] [address] Care Team Providers Care Avionics Systems Engineer Name Role Phone Emerson Allen MD Primary Care Provider [phone] Encounter Details Date Type Department Care Team (Late Contact Info) Description 06/22/2017 Orders Only [facility] [address] [place] [address] Emerson Allen MD [address] [facility] [address] [place] [address] Thyroid nodule (Primary Dx) Social History Tobacco Use Types Packs/Day Years Used Date Smoking Tobacco: Heavy Smoker Comments:Smoking History Pac ks/day: 0.5 Packs Alcohol Use Standard Drinks/Week Comments No 0 (1 standard drink = 0.6 oz pur e alcohol) Comments Unknown Sex and Gender Information Value Date Recorded Sex Assigned at Not on file 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 Gender Identity Not on file Sexual Orientation Not on file documented as of this encounter Progress Notes * Emerson Allen MD - 06/22/2017 3:51 PM CDT Ordered uls documented in this encounter Plan of Treatment Upcoming Encounters Date Type Department Care Team (Late st Contact Info) Description 02/04/2025 9:30 AM CDT Hospital Encounter [address] [address] Vic Gaines, DO [address] [address] 02/04/2025 9:30 AM CDT - 02/04/2025 10:00 AM CDT Surgery [address] [address] Vic Gaines, DO 3 [facility] [address] [place] [address] COLONOSCOPY Scheduled Procedures Name Priority Associated Diagnoses Date/Ti me COLONOSCOPY Encounter for screening colonoscopy 02/04/2025 9:30 AM CDT documented as of this encounter Visit Diagnoses Diagnosis Thyroid nodule- Primary Nontoxic uninodular goiter Encounter for screening colonoscopy documented in this encounter Care Teams Avionics Systems Engineer Relationship Specialty Start Date End Date Emerson Allen MD PCP - General 06/03/17 07/05/21 documented as of this encounter
--- OUTSIDE RECORDS SUMMARY | 2024-10-13 04:11 | XMS_ITS | Encounter Summary ---
Author Organization [facility] Medical Group Address [address] [facility] [address] [place] [address] Care Team Providers Care Tibco Developer Name Role Phone Emerson Allen MD Primary Care Provider [phone] [phone] Encounter Details Date Type Department Care Team (Late st Contact Info) Description 07/04/2017 Telephone [facility] [address] [place] [address] Emerson Allen MD [address] [facility] [address] [place] [address] Social History Tobacco Use Types Packs/Day Years Used Date Smoking Tobacco: Heavy Smoker Comments:Smoking History Pac ks/day: 0.5 Packs Alcohol Use Standard Drinks/Week Comments No 0 (1 standard drink = 0.6 oz pur e alcohol) Comments Unknown Sex and Gender Information Value Date Recorded Sex Assigned at Not on file 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 42 tablet 07/04/2017 7 documented in this encounter Miscellaneous Notes * Telephone Encounter - Emerson Allen MD - 07/04/2017 4:27 PM CDT Sent the chantix again * Telephone Encounter - Darline Catherine MA - 07/04/2017 2:57 PM CDT Received a phone call from Mirtha asking about the status of the PA for the Cantix. I called [facility] spoke with Yazmin to see where we were at with it since it was faxed on 06/21; According to her itwas cancelled but she allowed me to reopen it we did the PA over the phone. Got it approved with a reference number of [id number] valid until 07/04/2018. They will be faxing over the approval. Mirtha has been informed and will check with her pharmacy to have them resubmit the Chantix. She will call if she has any other problems. documented in this encounter Plan of Treatment Upcoming Encounters Date Type Department Care Team (Late st Contact Info) Description 02/04/2025 9:30 AM CDT Hospital Encounter [address] [address] Vic Gaines, DO [address] [address] 02/04/2025 9:30 AM CDT - 02/04/2025 10:00 AM CDT Surgery [address] [address] Vic Gaines, DO 3 [facility] [address] [place] [address] COLONOSCOPY Scheduled Procedures Name Priority Associated Diagnoses Date/Ti me COLONOSCOPY Encounter for screening colonoscopy 02/04/2025 9:30 AM CDT documented as of this encounter Visit Diagnoses Diagnosis Tobacco dependence syndrome Tobacco use disorder Encounter for screening colonoscopy documented in this encounter Discontinued Medications Medication Sig Discontinue Reason Start Date End Da te varenicline (CHANTIX PIPER) 0.5 mg (11)- 1 mg (42) tabletIndications:Tobac co dependence syndrome Use as directed on package instructions, try to quit smoking after 1 week. Reorder 06/14/2017 07/04/2017 documented as of this encounter Care Teams Tibco Developer Relationship Specialty Start Date End Date Emerson Allen MD PCP - General 06/03/17 07/05/21 documented as of this encounter
--- OUTSIDE RECORDS SUMMARY | 2024-10-13 04:11 | XMS_ITS | Encounter Summary ---
Author Organization [facility] Address [address] [place] [address] Care Team Providers Care Inventory Control Assistant Name Role Phone Emerson Allen MD Primary Care Provider [phone] Encounter Details Date Type Department Care Team (Late st Contact Info) Description 06/22/2017 Telephone [facility] of [address] [place] [address] Emerson Allen MD [address] [facility] [address] [place] [address] Social History Tobacco Use Types Packs/Day Years Used Date Smoking Tobacco: Heavy Smoker Comments:Smoking History Pac ks/day: 0.5 Packs Alcohol Use Standard Drinks/Week Comments No 0 (1 standard drink = 0.6 oz pur e alcohol) Comments Unknown Sex and Gender Information Value Date Recorded Sex Assigned at Not on file 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 That must have been theninitial denial. I have called and left Mirtha GRIJALVA informing her that the PA was faxed yesterday and we are waiting to hear back. * Telephone Encounter - Emerson Allen MD - 06/23/2017 9:40 AM CDT If truly denied, then patches or zyban. I can prescribe zyban, I'm not sure if that will be coveredthough. I did the PA on chantix a few days ago I recall. * Telephone Encounter - Darline Catherine MA - 06/22/2017 4:45 PM CDT Mirtha called, she was checking the status of the PA for Chantix. Checked her chart in the media tab and it looks like her insurance denied the Chantix. Per Mirtha she has tried the Nicorette gum and the patches that are OTC. She was not sure if that would help. She is just wondering what the next step would be. documented in this encounter Plan of Treatment Upcoming Encounters Date Type Department Care Team (Late st Contact Info) Description 02/04/2025 9:30 AM CDT Hospital Encounter [address] [address] Vic Gaines, DO 3 [facility] [address] [address] 02/04/2025 9:30 AM CDT - 02/04/2025 10:00 AM CDT Surgery [address] [address] Vic Gaines, DO 3 [facility] [address] [address] COLONOSCOPY Scheduled Procedures Name Priority Associated Diagnoses Date/Ti me COLONOSCOPY Encounter for screening colonoscopy 02/04/2025 9:30 AM CDT documented as of this encounter Visit Diagnoses Not on filedocumented in this encounter Care Teams Inventory Control Assistant Relationship Specialty Start Date End Date Emerson Allen MD PCP - General 06/03/17 07/05/21 documented as of this encounter
--- OUTSIDE RECORDS SUMMARY | 2024-10-13 04:11 | XMS_ITS | Encounter Summary ---
Author Organization [facility] Address [address] 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 1 [place] [address] Vic Gaines, DO 3 [facility] [address] [place] [place] [address] 02/04/2025 9:30 AM CDT - 02/04/2025 10:00 AM CDT Surgery [facility] 1 [place] [address] Vic Gaines, DO 3 [facility] [address] [place] [address] COLONOSCOPY Scheduled Procedures Name Priority Associated Diagnoses Date/Ti me COLONOSCOPY Encounter for screening colonoscopy 02/04/2025 9:30 AM CDT documented as of this encounter Procedures Procedure Name Priority Date/Time Associated Diagnosis Comments SCAN - RADIOLOGY/IMAGING 03/22/2017 1:56 PM CDT documented in this encounter Results * SCAN - RADIOLOGY/IMAGING (03/22/2017 1:56 PM CDT) Anatomical Region Laterality Modality Other us Provider Scanning Final Result documented in this encounter Visit Diagnoses Not on filedocumented in this encounter Care Teams Shelf Filler Relationship Specialty Start Date End Date Francisca Hou DO 4 [facility] [address] [place] [address] PCP - General 03/08/17 05/31/17 Francisca Hou DO 4 [facility] [address] [place] [address] PCP - General 06/01/17 06/02/17 Emerson Allen MD 4 [facility] [address] [place] [address] PCP - General 06/03/17 07/05/21 Phoenix Loredo MD 4 [facility] [address] [place] [address] Consulting Physician Cardiology 01/04/19 documented as of this encounter
--- OUTSIDE RECORDS SUMMARY | 2024-10-13 04:11 | XMS_ITS | Encounter Summary ---
Author Organization [facility] Address [address] [facility] [address] [place] [address] Care Team Providers Care Manager Cosmetic Name Role Phone Emerson Allen MD Primary Care Provider [phone] Encounter Details Date Type Department Care Team (Late st Contact Info) Description 01/04/2018 Orders Only [facility] of [address] [place] [id number] Emerson Allen MD [address] [facility] [place] [place] [address] Mass of upper outer quadrant of right breast (Primary Dx); Preoperative testing Social History Tobacco Use Types Packs/Day Years Used Date Smoking Tobacco: Every Day Cigarettes Smokeless Tobacco: Never Comments:Smoking History Pac ks/day: 0.5 Packs Alcohol Use Standard Drinks/Week Comments No 0 (1 standard drink = 0.6 oz pur e alcohol) Comments Unknown Sex and Gender Information Value Date Recorded Sex Assigned at Not on file 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 documented in this encounter Plan of Treatment Upcoming Encounters Date Type Department Care Team (Late st Contact Info) Description 02/04/2025 9:30 AM CDT Hospital Encounter [facility] 1 [place] [address] Vic Gaines, DO 3 [facility] [place] [place] [address] 02/04/2025 9:30 AM CDT - 02/04/2025 10:00 AM CDT Surgery [address] [address] Vic Gaines, DO 3 [facility] [place] [place] [address] COLONOSCOPY Scheduled Procedures Name Priority Associated Diagnoses Date/Ti me COLONOSCOPY Encounter for screening colonoscopy 02/04/2025 9:30 AM CDT documented as of this encounter Visit Diagnoses Diagnosis Mass of upper outer quadrant of right breast- Primary Preoperative testing Unspecified pre-operative examination Encounter for screening colonoscopy documented in this encounter Care Teams Manager Cosmetic Relationship Specialty Start Date End Date Emerson Allen MD PCP - General 06/03/17 07/05/21 documented as of this encounter
--- OUTSIDE RECORDS SUMMARY | 2024-10-13 04:11 | XMS_ITS | Encounter Summary ---
Author Organization [facility] Address [address] [place] [address] Care Team Providers Care Ice Cream Dispenser Name Role Phone Emerson Allen MD Primary Care Provider [phone] Encounter Details Date Type Department Care Team (Late st Contact Info) Description 06/03/2017 7:06 AM CDT - 06/03/2017 11:59 PM CDT Hospital Encounter [facility] Emerson Allen MD [address] [facility] [address] [place] [address] Discharge Disposition: Discharge to home or self care Social History Tobacco Use Types Packs/Day Years Used Date Smoking Tobacco: Heavy Smoker Comments:Smoking History Pac ks/day: 0.5 Packs Alcohol Use Standard Drinks/Week Comments No 0 (1 standard drink = 0.6 oz pur e alcohol) Comments Unknown Sex and Gender Information Value Date Recorded Sex Assigned at Not on file 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 ATTENDANT Gender Identity Not on file Sexual [...] route every day 0 0 12/07/2016 7 coenzyme Q10 (CO Q-10) 200 mg [...] 02/04/2025 9:30 AM CDT Hospital Encounter [address] [address] Vic Gaines, DO 3 [facility] [place] [facility] [place] [address] 02/04/2025 9:30 AM CDT - 02/04/2025 10:00 AM CDT Surgery [address] [address] Vic Gaines, DO 3 [facility] [address] [address] COLONOSCOPY Scheduled Procedures Name Priority Associated Diagnoses Date/Ti me COLONOSCOPY Encounter for screening colonoscopy 02/04/2025 9:30 AM CDT documented as of this encounter Procedures Procedure Name Priority Date/Time Associated Diagnosis Comments DISCHARGE LABORATORY CUMULATIVE REPORT 06/04/2017 12:00 AM CDT EGFR Routine 06/03/2017 7:20 AM CDT DIFFERENTIAL AUTO Routine 06/03/2017 7:2 0 AM CDT CBC WITH AUTO DIFFERENTIAL Routine 06/03/2017 7:20 AM CDT LIPID PANEL Routine 06/03/2017 7:20 AM CDT COMPREHENSIVE METABOLIC PANEL Routine 06/03/2017 7:20 AM CDT documented in this encounter Results * DISCHARGE LABORATORY CUMULATIVE REPORT (06/04/2017 12:00 AM CDT) Narrative 06/04/2017 12:00 AM CDT Ordered by an unspecified provider. us Historical Provider LAB BLOOD ORDERABLES Ivette l Result * eGFR (06/03/2017 7:20 AM CDT) eGFR >60 mL/min/1.7 3 m2 [facility] ([place]) Comment: Interpretive Data Reference Interval Normal ?>/= 90 mL/min/1.73m2 Mildly decreased* ? 60 - 89 mL/min/1.73m2 Mildly to moderately decreased ?45 - 59 mL/min/1.73m2 Moderately to severely decreased ??30 - 44 mL/min/1.73m2 Severely decreased ?15 - 29 mL/min/1.73m2 Kidney Failure ?< 15 ??mL/min/1.73m2 *Relative to young adult level If -Kazakh multiply value by 1.16. Estimated glomerular filtration [...] was last reviewed 2016. Blood specimen (specimen) 06/03/2017 7:20 AM CDT 06/03/2017 7:21 AM CDT us Emerson Allen MD LAB BLOOD ORDERABLES Final Result [facility] ([place] [address] [facility] Department [place] [address] * Comprehensive metabolic panel (06/03/2017 7:20 AM CDT) Sodium 143 135 - 145 mmol/L [facility] ([place]) Potassium 4.1 3.5 - 5.1 mmol/L [facility] ([place]) Chloride 105 97 - 110 mmol/L [facility] ([place]) CO2 24 22 - 32 mmol/L [facility] ([place]) Anion gap 14 8 - 16 mmol/L [facility] ([place]) Glucose 97 70 - 199 mg/dL [facility] ([place]) Comment: Interpretive Data Note:The glucose is [...] data was last revised on 2014. BUN 12.5 8.0 - 25.0 mg/dL [facility] ([place]) Creatinine 0.69 0.60 - 1.10 mg/dL [facility] ([place]) BUN/creat ratio 18 10 - 20 [facility] ([place]) Calcium 9.2 8.6 - 10.2 mg/dL [facility] ([place]) Protein, sr 6.6 6.0 - 8.4 g/dL [facility] ([place]) Albumin 4.3 3.6 - 5.0 g/dL [facility] ([place]) Alk phos 106 40 - 130 Units/L [facility] ([place]) ALT 14 5 - 45 Units/L [facility] ([place]) AST 12 10 - 40 Units/L [facility] ([place]) Bilirubin, total <0.2 <=1.2 mg/dL [facility] ([place]) Blood specimen (specimen) 06/03/2017 7:20 AM CDT 06/03/2017 7:21 AM CDT us Emerson Allen MD LAB BLOOD ORDERABLES Final Result Performing Organization Address City/State/[facility] Co de Phone Number [facility] ([place]) [address] [facility] Department [place] [address] * Lipid panel (06/03/2017 7:20 AM CDT) Cholesterol 158 40 - 199 mg/dL [facility] ([place]) Comment: Interpretive Data Desirable: ??Less than 200 mg/dl ? Borderline High: ?200 - 239 mg/dl ? High: ??Greater than ?? 239 mg/dl Current interpretive data was last revised on 2014. Triglycerides 123.0 <=150.0 mg/dL [facility] ([place]) Comment: Interpretive Data Normal: ? Less than 150 mg/dl Borderline high: ??150-199 mg/dl ?? High: ? 200-499 mg/dl ? Very high: ??Greater than or equal to 500 mg/dl Current interpretive data was last revised on 2017. HDL 43 40 - 60 mg/dL [facility] ([place]) Comment: Interpretive Data Low HDL Cholesterol: ? Less than 40 mg/dl Normal HDL Cholesterol: ??40-60 mg/dl High HDL Cholesterol: ?Greater than 60 mg/dl Current interpretive data was last revised on 2014. LDL, calculated 90 mg/dL [facility] ([place]) Comment: Interpretive Data Optimal ? Less than 100 mg/dL ? Near optimal/Above optimal ??100 - 129 mg/dL ? Borderline high ? 130 - 159 mg/dL ? High ?160 - 189 mg/dL ? Very high ? Greater than or = 190 mg/dL ? LDL values are not valid when the total Triglyceride is greater than 300 mg/dL. Current interpretive data was last revised on 2014. Non-HDL Cholesterol 115 mg/dL [facility] ([place]) Comment: Interpretive Data Optimal ? Less than 130 mg/dL Low Risk ?130 - 159 mg/dL Moderate Risk ? 160 - 189 mg/dL High Risk ? Greater than or equal to 190 mg/dL Current interpretive data was last revised on 2014. Blood specimen (specimen) 06/03/2017 7:20 AM CDT 06/03/2017 7:21 AM CDT us Emerson Allen MD LAB BLOOD ORDERABLES Final Result [facility] ([place]) 1 [facility] Department [place] [address] * (ABNORMAL) Differential, auto (06/03/2017 7:20 AM CDT) Neutrophil pct 68.7 44.0 - 80.0 % [facility] ([place]) Imm gran pct 0.4 0.0 - 1.0 % [facility] ([place]) Lymphocyte pct 23.2 13.0 - 44.0 % [facility] ([place]) Monocyte pct 7.2 2.0 - 11.0 % [facility] ([place]) Eosinophil pct 0.3 0.0 - 6.0 % [facility] ([place]) Basophil pct 0.2 0.0 - 3.0 % [facility] ([place]) Neutrophil abs 8.91(H) 1.60 - 7.00 K/cumm [facility] ([place]) Imm gran abs 0.05 0.00 - 0.20 K/cumm [facility] ([place]) Lymphocyte abs 3.01 0.50 - 4.30 K/cumm [facility] ([place]) Monocyte abs 0.93 0.10 - 1.00 K/cumm [facility] ([place]) Eosinophil abs 0.04 0.00 - 0.60 K/cumm [facility] ([place]) Basophil abs 0.02 0.00 - 0.30 K/cumm [facility] ([place]) Blood specimen (specimen) 06/03/2017 7:20 AM CDT 06/03/2017 7:21 AM CDT us Emerson Allen MD LAB BLOOD ORDERABLES Final Result [facility] ([place]) 1 [facility] Department [place] [address] * (ABNORMAL) CBC with auto differential (06/03/2017 7:20 AM CDT) WBC 12.96(H) 3.80 - 9.80 K/cumm [facility] ([place]) RBC 4.75 3.90 - 5.00 M/cumm [facility] ([place]) Hgb 14.4 12.1 - 15.1 g/dL [facility] ([place]) Hct 41.8 36.1 - 44.3 % [facility] ([place]) MCV 88.0 80.0 - 100.0 fL [facility] ([place]) MCH 30.3 26.7 - 33.7 pg [facility] ([place]) MCHC 34.4 32.7 - 36.0 g/dL [facility] ([place]) RDW CV 13.0 11.5 - 14.6 % [facility] ([place]) Plt 278 140 - 440 K/cumm [facility] ([place]) MPV 9.9 8.0 - 12.0 fL [facility] ([place]) NRBC 0.0 0.0 - 0.0 % [facility] ([place]) NRBC abs 0.00 0.00 - 0.00 K/cumm [facility] ([place]) Blood specimen (specimen) 06/03/2017 7:20 AM CDT 06/03/2017 7:21 AM CDT us Emerson Allen MD LAB BLOOD ORDERABLES Final Result [facility] ([place]) 1 [facility] Department [place] [address] documented in this encounter Visit Diagnoses Not on filedocumented in this encounter Care Teams Ice Cream Dispenser Relationship Specialty Start Date End Date Emerson Allen MD PCP - General 06/03/17 07/05/21 documented as of this encounter
--- OUTSIDE RECORDS SUMMARY | 2024-10-13 04:11 | XMS_ITS | Encounter Summary ---
Author Organization [facility] Address [address] [facility] [address] [place] [address] Care Team Providers Care Co Chairman Name Role Phone Emerson Allen MD Primary Care Provider [phone] Reason for Referral * Consultation (Routine) - Closed Specialty Diagnoses / Procedures Referred By Denton pickard Referred To Contact Breast Surgery Diagnoses Mass of upper outer quadrant of right breast Emerson Allen MD Phone: tel: fax: Rola Duncan MD PhD Phone: tel: fax: Referral ID Status Reason Start Date Expiration Date V isits Requested Visits Authorized [id number] Closed Specialty Services Required 12/20/2017 06/18/2018 1 1 Comments Insurance through 01/07 Reason for Visit * Reason Onset Date Comments abnormal test 12/20/2017 Mammogram Encounter Details Date Type Department Care Team (Late st Contact Info) Description 12/20/2017 Telephone [facility] of [address] [place] [address] Emerson Allen MD [address] [facility] [address] [place] [address] abnormal test (Mammogram ) Social History Tobacco Use Types Packs/Day Years Used Date Smoking Tobacco: Every Day Cigarettes Smokeless Tobacco: Never Comments:Smoking History Pac ks/day: 0.5 Packs Alcohol Use Standard Drinks/Week Comments No 0 (1 standard drink = 0.6 oz pur e alcohol) Comments Unknown Sex and Gender Information Value Date Recorded Sex Assigned at Not on file Legal Sex Female 8:44 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 * Addendum Note - Emerson Allen MD - 12/20/2017 5:13 PM CDTAddended by: EMERSON ALLEN on: 12/20/2017 05:13 PM Modules accepted: Orders * Telephone Encounter - Emerson Allen MD - 12/20/2017 5:12 PM CDT Spoke to Mirtha. Putting referral in to Dr. Duncan. The biopsy is scheduled for Monday. * Telephone Encounter - Mary Collins MA - 12/20/2017 11:19 AM CDT Jerry from [facility] [place] [facility] called and stated thatt he radiologist found 2 areas on Mirtha's diagnostic mammogram. They would like to biopsy the two area's. The need a referral to a breast surgeon of your choice Jerry can be reached at [phone] documented in this encounter Plan of Treatment Upcoming Encounters Date Type Department Care Team (Late st Contact Info) Description 02/04/2025 9:30 AM CDT Hospital Encounter [address] [address] Vic Gaines, DO 3 [facility] [place] [address] [place] [address] 02/04/2025 9:30 AM CDT - 02/04/2025 10:00 AM CDT Surgery [address] [address] Vic Gaines, DO 3 [facility] [place] [address] [place] [address] COLONOSCOPY Scheduled Procedures Name Priority Associated Diagnoses Date/Ti me COLONOSCOPY Encounter for screening colonoscopy 02/04/2025 9:30 AM CDT Scheduled Referrals Name Type Priority Associated Diagnoses Order Schedule Ambulatory referral to Breast Surgery Outpatient Referral Routine Mass Of Upper Outer Quadrant Of Right Breast Ordered: 12/20/2017 documented as of this encounter Visit Diagnoses Diagnosis Mass of upper outer quadrant of right breast- Primary Encounter for screening colonoscopy documented in this encounter Care Teams Co Chairman Relationship Specialty Start Date End Date Emerson Allen MD PCP - General 06/03/17 07/05/21 documented as of this encounter
--- OUTSIDE RECORDS SUMMARY | 2024-10-13 04:11 | XMS_ITS | Encounter Summary ---
Author Organization [facility] Address [address] [facility] [address] [place] [address] Care Team Providers Care Warm In Worker Name Role Phone Emerson Allen MD Primary Care Provider [phone] Reason for Visit * Reason Comments Sinus Problem The patient is havin g pain in her face, left ear pain and phlem. It has been going on for a couple of weeks with congestion. Encounter Details Date Type Department Care Team (Late st Contact Info) Description 10/27/2017 5:15 PM GUINEA PIG BREEDER Office Visit [facility] [address] [facility] [place] [address] Miguel Sanders NP [address] [facility] [address] [place] [id number] Acute non-recurrent maxillary sinusitis (Primary Dx) Social [...] on file Legal Sex Female 8:44 AM GUINEA PIG BREEDER Gender Identity Not on file Sexual Orientation Not on file documented as of this encounter Last Filed Vital Signs Vital Sign Reading Time Taken Comments Blood Pressure 120/80 10/27/2017 5:18 PM GUINEA PIG BREEDER Pulse 93 10/27/2017 5:18 PM GUINEA PIG BREEDER Temperature 36.8 ??C (98.2 ??F) 10/27/2017 5:18 PM CS T Respiratory Rate 16 10/27/2017 5:18 PM GUINEA PIG BREEDER Oxygen Saturation 96% 10/27/2017 5:18 PM GUINEA PIG BREEDER Inhaled Oxygen Concentration - - Weight 76.8 kg (169 lb 6.4 oz) 10/27/2017 5:18 P M GUINEA PIG BREEDER Height 154.9 cm (5' 1 ) 10/27/2017 5:18 PM GUINEA PIG BREEDER Body Mass Index 32.01 10/27/2017 5:18 PM GUINEA PIG BREEDER documented in this encounter Patient Instructions * Patient Instructions* Miguel Sanders NP - 10/27/2017 5:15 PM GUINEA PIG BREEDER Complete the antibiotic as directed. Take an OTC decongestant for congestion or an antihistamine such as Benadryl 25mg or Claritin 10mg for a runny nose. Use OTC Flonase as directed. Drink plenty of fluid and follow up with your PCP if 3- 5 days if you are not getting any better. EA PIG BREEDER documented in this encounter Ordered Prescriptions Prescription Sig Dispense Quantity Refills Last Filled Start Date End Date amoxicillin-clavul anate (AUGMENTIN) 875-125 mg per tabletIndications: Acute non-recurrent maxillary sinusitis Take 1 tablet by mouth 2 (two) times a day for 10 days. 20 tablet 10/27/2017 11/06/2017 documented in this encounter Progress Notes * Miguel Sanders NP - 10/27/2017 5:15 PM CST Subjective Patient ID: Mirtha Cherry is a 52 y.o. female. Sinus Problem (The patient is having pain in her face, left ear pain and phlem. It has been going on for a couple of weeks with congestion.) URI symptoms for the past 14-21 days now sinus pressure and scratchy throat Sinus Problem This is a new problem. The current episode started 1 to 4 weeks ago. The problem has been graduallyworsening since onset. There has been no fever. Her pain is at a severity of 4/10. The pain is moderate. Associated symptoms include congestion, coughing, ear pain, headaches, a hoarse voice, sinus pressure, a sore throat and swollen glands. Pertinent negatives include no chills, neck pain or shortness of breath. Past treatments include acetaminophen and saline sprays. Review of Systems Constitutional: Positive for activity change, fatigue and fever. Negative for chills. HENT: Positive for congestion, ear pain, hoarse voice, sinus pressure and sore throat. Respiratory: Positive for cough. Negative for shortness of breath. Cardiovascular: Negative for leg swelling. Gastrointestinal: Negative for abdominal pain. Genitourinary: Positive for dysuria. Musculoskeletal: Negative for neck pain. Skin: Negative for rash. Neurological: Positive for headaches. Psychiatric/Behavioral: Negative for confusion. Objective Physical Exam Constitutional: She is oriented to person, place, and time. She appears well- developed and well-nourished. HENT: Head: Normocephalic. Right Ear: Hearing, tympanic membrane and external ear normal. Left Ear: Hearing, tympanic membrane and external ear normal. Nose: Right sinus exhibits maxillary sinus tenderness. Right sinus exhibits no frontal sinus tenderness. Left sinus exhibits maxillary sinus tenderness. Left sinus exhibits no frontal sinus tenderness. Mouth/Throat: Uvula is midline. Posterior oropharyngeal erythema present. Tonsils are 0 on the right. Tonsils are 0 on the left. Eyes: Conjunctivae and EOM are normal. Pupils are equal, round, and reactive to light. Neck: Normal range of motion. Cardiovascular: Normal rate, regular rhythm and normal heart sounds. Pulmonary/Chest: Effort normal and breath sounds normal. Abdominal: Soft. Musculoskeletal: Normal range of motion. Neurological: She is alert and oriented to person, place, and time. Skin: Skin is warm and dry. No rash noted. No erythema. Psychiatric: She has a normal mood and affect. Nursing note and vitals reviewed. Vitals: 10/27/17 1718 BP: 120/80 BP Location: Left arm Patient Position: Sitting Pulse: 93 Resp: 16 Temp: 36.8 ??C (98.2 ??F) TempSrc: Oral SpO2: 96% Weight: 76.8 kg (169 lb 6.4 oz) Height: 154.9 cm (5' 1 ) Assessment/Plan Diagnoses and all orders for this visit: Acute non-recurrent maxillary sinusitis (Primary) - amoxicillin-clavulanate (AUGMENTIN) 875-125 mg per tablet; Take 1 tablet by mouth 2 (two) times aday for 10 days. Complete the antibiotic as directed. Take an OTC decongestant for congestion or an antihistamine such as Benadryl 25mg or Claritin 10mg for a runny nose. Use OTC Flonase as directed. Drink plenty of fluid and follow up with your PCP if 3- 5 days if you are not getting any better. No notes on file EA PIG BREEDER documented in this encounter Plan of Treatment Upcoming Encounters Date Type Department Care Team (Late st Contact Info) Description 02/04/2025 9:30 AM CDT Hospital Encounter [address] [address] Vic Gaines, DO [address] [address] 02/04/2025 9:30 AM CDT - 02/04/2025 10:00 AM CDT Surgery [address] [address] Vic Gaines, DO [address] [address] COLONOSCOPY Scheduled Procedures Name Priority Associated Diagnoses Date/Ti me COLONOSCOPY Encounter for screening colonoscopy 02/04/2025 9:30 AM CDT documented as of this encounter Visit Diagnoses Diagnosis Acute non-recurrent maxillary sinusitis- Primary Encounter for screening colonoscopy documented in this encounter Care Teams Warm In Worker Relationship Specialty Start Date End Date Emerson Allen MD PCP - General 06/03/17 07/05/21 documented as of this encounter
--- OUTSIDE RECORDS SUMMARY | 2024-10-13 04:11 | XMS_ITS | Encounter Summary ---
Author Organization [facility] Address [address] [facility] [address] [place] [address] Care Team Providers Care Load Planner Name Role Phone Emerson Allen MD Primary Care Provider [phone] Encounter Details Date Type Department Care Team (Late st Contact Info) Description 06/26/2017 Telephone [facility] [address] [place] [address] Emerson Allen MD [address] [facility] [address] [place] [address] Social History Tobacco Use Types Packs/Day Years Used Date Smoking Tobacco: Heavy Smoker Comments:Smoking History Pac ks/day: 0.5 Packs Alcohol Use Standard Drinks/Week Comments No 0 (1 standard drink = 0.6 oz pur e alcohol) Comments Unknown Sex and Gender Information Value Date Recorded Sex Assigned at Not on file 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 Pt was notin, informed daughter to contact the office back. documented in this encounter Plan of Treatment Upcoming Encounters Date Type Department Care Team (Late st Contact Info) Description 02/04/2025 9:30 AM CDT Hospital Encounter [facility] 1 [place] [address] Vic Gaines, DO 3 [facility] [place] [address] [place] [address] 02/04/2025 9:30 AM CDT - 02/04/2025 10:00 AM CDT Surgery [address] [address] Vic Gaines, DO 3 [facility] [place] [address] [place] [address] COLONOSCOPY Scheduled Procedures Name Priority Associated Diagnoses Date/Ti me COLONOSCOPY Encounter for screening colonoscopy 02/04/2025 9:30 AM CDT documented as of this encounter Visit Diagnoses Not on filedocumented in this encounter Care Teams Load Planner Relationship Specialty Start Date End Date Emerson Allen MD PCP - General 06/03/17 07/05/21 documented as of this encounter
--- OUTSIDE RECORDS SUMMARY | 2024-10-13 04:11 | XMS_ITS | Encounter Summary ---
Author Organization [facility] Medical [facility] Address [address] [facility] [address] [place] [address] Care Team Providers Care Cigar Head Piercer Name Role Phone Emerson Allen MD Primary Care Provider [phone] Reason for Visit * Reason Comments Health Maintenance Encounter Details Date Type Department Care Team (Late st Contact Info) Description 12/13/2017 8:45 AM AIR MOVING TECHNICIAN Office Visit [facility] [address] [place] [address] Emerson Allen MD [address] [facility] [address] [place] [address] Mild intermittent asthma without complication (Primary Dx); Gastroesophageal reflux disease without esophagitis; Dyslipidemia; Chronic seasonal allergic rhinitis, unspecified trigger; Other migraine without status migrainosus, not intractable Social History Tobacco Use Types Packs/Day Years Used Date Smoking Tobacco: Every Day Cigarettes Smokeless Tobacco: Never Comments:Smoking History Pac ks/day: 0.5 Packs Alcohol Use Standard Drinks/Week Comments No 0 (1 standard drink = 0.6 oz pur e alcohol) Comments Unknown Sex and Gender Information Value Date Recorded Sex Assigned at Not on file Legal Sex Female 8:44 AM AIR MOVING TECHNICIAN Gender Identity Not on file Sexual Orientation Not on file documented as of this encounter Last Filed Vital Signs Vital Sign Reading Time Taken Comments Blood Pressure 118/77 12/13/2017 8:38 AM AIR MOVING TECHNICIAN Pulse 87 12/13/2017 8:38 AM AIR MOVING TECHNICIAN Temperature - - Respiratory Rate - - Oxygen Saturation 96% 12/13/2017 8:38 AM AIR MOVING TECHNICIAN Inhaled Oxygen Concentration - - Weight 75.9 kg (167 lb 4.8 oz) 12/13/2017 8:38 A M AIR MOVING TECHNICIAN Height 154.9 cm (5' 0.98 ) 12/13/2017 8:38 AM CS T Body Mass Index 31.63 12/13/2017 8:38 AM AIR MOVING TECHNICIAN documented in this encounter Patient Instructions * Patient Instructions* Emerson Allen MD - 12/13/2017 8:45 AM AIR MOVING TECHNICIAN GERD- refilled omeprazole. Hopefully sx will back off again. RTC sooner if not improving Lipids- well controlled. Continue atorvastatin 40 mg hs. Also continue coQQ10 Continue probiotic Continuing flonase for now, but discussed rinsing mouth out after doses Migraines- refilled Imitrex. MOVING TECHNICIAN MOVING TECHNICIAN MOVING TECHNICIAN documented in this encounter Ordered Prescriptions Prescription Sig Dispense Quantity Refills Last Filled Start Date End Date SUMAtriptan (IMITREX) 50 mg tabletIndications: Migraine TAKE 1 TABLET BY MOUTH EARLY POSSIBLE AFTER ONSET OF MIGRAINE. MAY REPEAT AFTER 2 HOURS IF HEADACHE RETURNS. 9 tablet 3 12/13/2017 8 omeprazole (PriLOSEC) 40 mg capsuleIndications :Gastroesophageal reflux disease without esophagitis Take 1 capsule (40 mg total) by mouth daily. 90 capsule 3 12/13/2017 8 documented in this encounter Progress Notes * Emerson Allen MD - 12/13/2017 8:45 AM CST Images from the original note were not included. Subjective/Objective Patient ID: Mirtha Cherry is a 52 y.o. female. Chief Complaint Health Maintenance Here for [facility]. She complains of gurgling stomach, occasional loose stools. She started an otc probiotic, which seems like has made improvement. GERD She complains of belching and water brash. She reports no abdominal pain, no chest pain, no choking, no coughing, no early satiety, no globus sensation, no heartburn, no sore throat, no stridor, no tooth decay or no wheezing. Hypertension Pertinent negatives include no chest pain, headaches, neck pain, palpitations or shortness of breath. Current Outpatient Prescriptions: ??? albuterol HFA (PROAIR HFA) 90 mcg/actuation inhaler, Inhale 2 puffs every 4 (four) hours as needed for wheezing or shortness of breath., Disp: 8.5 g, Rfl: 5 ??? aspirin 81 mg tablet, Take 81 [...] fluticasone (FLONASE) 50 mcg/actuation nasal spray, Administer 2 sprays into each nostril daily., Disp: 16 g, Rfl: 5 ??? Lactobacillus acidophilus (PROBIOTIC) 10 billion cell capsule, Take 1 capsule by oral route every day, Disp: 0, Rfl: 0 ??? omeprazole (PriLOSEC) 40 mg capsule, Take by mouth., Disp: , Rfl: ??? raNITIdine (ZANTAC) 150 mg tablet, Take 150 mg by mouth., Disp: , Rfl: ??? SUMAtriptan (IMITREX) 50 mg tablet, TAKE 1 TABLET BY MOUTH EARLY POSSIBLE AFTER ONSET OF MIGRAINE. MAY REPEAT AFTER 2 HOURS IF HEADACHE RETURNS., Disp: 9 tablet, Rfl: 0 Review of Systems Constitutional: Negative. HENT: Negative. Negative for sore throat. Respiratory: Negative for cough, choking, shortness of breath and wheezing. Cardiovascular: Negative for chest pain and palpitations. Gastrointestinal: Negative. Negative for abdominal pain and heartburn. Genitourinary: Negative. Musculoskeletal: Negative for neck pain. Neurological: Negative for headaches. Psychiatric/Behavioral: Negative. BP 118/77 (BP Location: Right arm, Patient Position: Sitting) Pulse 87 Ht 154.9 cm (5' 0.98 ) Wt 75.9 kg (167 lb 4.8 oz) SpO2 96% BMI 31.63 kg/m?? Physical Exam Constitutional: She is oriented to person, place, and time. She appears well- developed and well-nourished. HENT: Head: Normocephalic and atraumatic. Right Ear: External ear normal. Left Ear: External ear normal. Mouth/Throat: Oropharynx is clear and moist. Eyes: Conjunctivae are normal. Pupils are equal, round, and reactive to light. Neck: Normal range of motion. Neck supple. [...] behavior is normal. Vitals reviewed. Abstract on 12/04/2017 Component Date Value Ref Range Status ??? HM Lipid Panel 12/01/2017 Normal Final Lab on 12/01/2017 Component Date Value Ref Range Status ??? WBC 12/01/2017 8.0 3.8 - 9.9 K/cumm Final ??? RBC 12/01/2017 4.83 3.90 - 5.20 M/cumm Final ??? Hgb 12/01/2017 14.6 11.9 - 15.5 g/dL Final ??? Hct 12/01/2017 43.5 35.6 - 45.5 % Final ??? MCV 12/01/2017 90.1 81.3 - 96.4 fL Final ??? MCH 12/01/2017 30.2 27.1 - 33.3 pg Final ??? MCHC 12/01/2017 33.6 32.3 - 35.7 g/dL Final ??? RDW CV 12/01/2017 13.2 11.1 - 14.9 % Final ??? RDW SD 12/01/2017 43.8 35.7 - 48.1 fL Final ??? Platelets 12/01/2017 249 150 - 400 K/cumm Final ??? MPV 12/01/2017 10.2 9.1 - 12.3 fL Final ??? NRBC Abs 12/01/2017 0.00 0.00 - 0.01 K/cumm Final ??? Sodium 12/01/2017 144 135 - 145 mmol/L Final ??? Potassium 12/01/2017 4.6 3.3 - 4.9 mmol/L Final ??? CO2 12/01/2017 27 22 - 32 mmol/L Final ??? BUN 12/01/2017 12 8 - 25 mg/dL Final ??? Glucose 12/01/2017 90 70 - 199 mg/dL Final Comment: Interpretive [...] interpretive data was last revised 2017. ??? Creatinine 12/01/2017 0.79 0.60 - 1.10 mg/dL Final ??? Calcium 12/01/2017 8.8 8.5 - 10.3 mg/dL Final ??? Chloride 12/01/2017 106 97 - 110 mmol/L Final ??? Albumin 12/01/2017 4.2 3.5 - 5.0 g/dL Final ??? AST 12/01/2017 12 10 - 45 Units/L Final ??? ALT 12/01/2017 15 7 - 45 Units/L Final ??? Alk phos 12/01/2017 95 40 - 130 Units/L Final ??? Bilirubin 12/01/2017 0.3 0.1 - 1.2 mg/dL Final ??? Protein, pl 12/01/2017 6.4* 6.5 - 8.5 g/dL Final ??? Anion Gap 12/01/2017 11 2 - 15 mmol/L Final ??? Cholesterol 12/01/2017 150 40 - 199 mg/dL Final Comment: Interpretive Data Desirable: Less than 200 mg/dl Borderline High: 200 - 239 mg/dl High: Greater than 239 mg/dl Current interpretive data was last revised on 2014. ? ? Triglycerides 12/01/2017 144.0 <=150.0 mg/dL Final Comment: Interpretive Data Normal: Less than 150 mg/dl Borderline high: 150-199 mg/dl High: 200-499 mg/dl Very high: Greater than or equal to 500 mg/dl Current interpretive data was last revised on 2017. ??? HDL 12/01/2017 42 40 - 60 mg/dL Final Comment: Interpretive Data Low HDL Cholesterol: Less than 40 mg/dl Normal HDL Cholesterol: 40-60 mg/dl High HDL Cholesterol: Greater than 60 mg/dl Current interpretive data was last revised on 2014. ??? LDL, calculated 12/01/2017 79 mg/dL Final Comment: Interpretive Data Optimal Less than 100 mg/dL Near optimal/Above optimal 100 - 129 mg/dL Borderline high 130 - 159 mg/dL High 160 - 189 mg/dL Very high Greater than or = 190 mg/dL LDL values are not valid when the total Triglyceride is greater than 300 mg/dL. Current interpretive data was last revised on 2014. ??? Non-HDL, (LDL+VLDL) 12/01/2017 108 mg/dL Final Comment: Interpretive Data Optimal Less than 130 mg/dL Low Risk 130 - 159 mg/dL Moderate Risk 160 - 189 mg/dL High Risk Greater than or equal to 190 mg/dL Current interpretive data was last revised on 2014. ??? Thyroid Stimulating Hormone 12/01/2017 1.94 0.30 - 5.00 mcIUnit/mL Final ??? Neutrophils 12/01/2017 52.4 44.0 - 80.0 % Final ??? Immature granulocytes 12/01/2017 0.4 0.0 - 1.0 % Final ??? Lymphocytes 12/01/2017 38.6 13.0 - 44.0 % Final ??? Monos 12/01/2017 6.9 2.0 - 11.0 % Final ??? Eosinophils 12/01/2017 1.3 0.0 - 6.0 % Final ??? Basophils 12/01/2017 0.4 0.0 - 3.0 % Final ??? Neutrophil absolute 12/01/2017 4.17 1.60 - 7.00 K/cumm Final ??? Immature granulocyte, abs 12/01/2017 0.03 0.00 - 0.20 K/cumm Final ??? Lymphocytes, abs 12/01/2017 3.07 0.50 - 4.30 K/cumm Final ??? Monos, abs 12/01/2017 0.55 0.10 - 1.00 K/cumm Final ??? Eosinophils, abs 12/01/2017 0.10 0.00 - 0.60 K/cumm Final ??? Basophils, abs 12/01/2017 0.03 0.00 - 0.30 K/cumm Final Assessment/Plan Diagnoses and all orders for this visit: Mild intermittent asthma without complication (Primary) Comments: Refilled Flonase Continue current regimen Follow-up in 6 months Gastroesophageal reflux disease without esophagitis Comments: refilled omeprazole. Hopefully sx will back off again. RTC sooner if not improving Orders: - omeprazole (PriLOSEC) 40 mg capsule; Take 1 capsule (40 mg total) by mouth daily. - CBC without differential; Future Dyslipidemia Comments: well controlled. Continue atorvastatin 40 mg hs. Also continue coQQ10 Continue probiotic Orders: - Comprehensive metabolic panel; Future - Lipid panel; Future Chronic seasonal allergic rhinitis, unspecified trigger Comments: Flonase refilled Other migraine without status migrainosus, not intractable - SUMAtriptan (IMITREX) 50 mg tablet; TAKE 1 TABLET BY MOUTH EARLY POSSIBLE AFTER ONSET OF MIGRAINE. MAY REPEAT AFTER 2 HOURS IF HEADACHE RETURNS. Emerson Allen MD MOVING TECHNICIAN documented in this encounter Miscellaneous Notes * Addendum Note - Ernesto Rogel CLT - 12/13/2017 8:45 AM CSTAddended by: ERNESTO ROGEL on: 06/29/2018 07:12 AM Modules accepted: Orders documented in this encounter Plan of Treatment Upcoming Encounters Date Type Department Care Team (Late st Contact Info) Description 02/04/2025 9:30 AM CDT Hospital Encounter [facility] 1 [place] [address] Vic Gaines, DO [address] [place] [address] [place] [address] 02/04/2025 9:30 AM CDT - 02/04/2025 10:00 AM CDT Surgery [facility] 1 [place] [address] Vic Gaines, DO [address] [place] [address] [place] [address] COLONOSCOPY Scheduled Procedures Name Priority Associated Diagnoses Date/Ti me COLONOSCOPY Encounter for screening colonoscopy 02/04/2025 9:30 AM CDT documented as of this encounter Results * Lipid panel (06/29/2018 7:15 AM CDT) [...] on 2018. Non-HDL Cholesterol 110 mg/dL [facility] ([facility]) Comment: Interpretive Data [...] ratio 4 [facility] ([facility]) Blood specimen (specimen) 06/29/2018 7:15 AM CDT 06/29/2018 8:07 AM CDT Narrative [facility] ([facility]) - 06/29/2018 8:39 AM CDT us Emerson Allen MD LAB BLOOD ORDERABLES Final Result [facility] ([facility]) [address] [facility] Department [place] [address] * Comprehensive metabolic panel (06/29/2018 7:15 AM CDT) Sodium 142 135 - 145 mmol/L [facility] ([facility]) Potassium, pl 4.3 3.3 - 4.9 mmol/L [facility] ([facility]) [...] AM CDT 06/29/2018 8:07 AM CDT Narrative [facility] ([facility]) - 06/29/2018 8:39 AM CDT us Emerson Allen MD LAB BLOOD ORDERABLES Final Result [facility] ([facility]) [address] [facility] Department [place] [address] * (ABNORMAL) CBC without differential (06/29/2018 7:15 AM CDT) WBC 8.9 3.8 - 9.9 K/cumm [facility] ([facility]) Hgb 13.7 11.9 - 15.5 g/dL [facility] ([facility]) Hct 42.6 35.6 - 45.5 % [facility] ([facility]) Plt 276 150 - 400 K/cumm [facility] ([facility]) MPV 10.2 9.1 - 12.3 fL [facility] ([facility]) RBC 4.61 3.90 - 5.20 M/cumm [facility] ([facility]) MCV 92.4 81.3 - 96.4 fL [facility] ([facility]) MCH 29.7 27.1 - 33.3 pg [facility] ([facility]) MCHC 32.2(L) 32.3 - 35.7 g/dL [facility] ([facility]) RDW CV 14.0 11.1 - 14.9 % [facility] ([facility]) RDW SD 47.3 35.7 - 48.1 fL [facility] ([facility]) NRBC abs 0.00 0.00 - 0.01 K/cumm [facility] ([facility]) Blood specimen (specimen) 06/29/2018 7:15 AM CDT 06/29/2018 8:07 AM CDT Narrative [facility] ([facility]) - 06/29/2018 8:12 AM CDT Emerson Allen MD LAB BLOOD ORDERABLES Final Result [facility] ([facility]) [address] [facility] Department [place] [address] documented in this encounter Visit Diagnoses Diagnosis Mild intermittent asthma without complication- Primary Gastroesophageal reflux disease without esophagitis Esophageal reflux Dyslipidemia Other and unspecified hyperlipidemia Chronic seasonal allergic rhinitis, unspecified trigger Other migraine without status migrainosus, not intractable Gastroesophageal reflux disease without esophagitis Esophageal reflux Dyslipidemia Other and unspecified hyperlipidemia Encounter for screening colonoscopy documented in this encounter Discontinued Medications Medication Sig Discontinue Reason Start Date End Da te loratadine (CLARITIN) 10 mg tablet Take 10 mg by mouth. 12/13/2017 methylPREDNISolone (MEDROL DOSEPACK) 4 mg tabletIndications:Acute non-recurrent maxillary sinusitis Take as directed on package. 08/22/2017 12/13/2017 omeprazole (PriLOSEC) 40 mg capsule Take by mouth. Reorder 05/30/2016 12/13/2017 SUMAtriptan (IMITREX) 50 mg tabletIndications:Migra ine TAKE 1 TABLET BY MOUTH EARLY POSSIBLE AFTER ONSET OF MIGRAINE. MAY REPEAT AFTER 2 HOURS IF HEADACHE RETURNS. Reorder 09/20/2017 12/13/2017 documented as of this encounter Care Teams Cigar Head Piercer Relationship Specialty Start Date End Date Emerson Allen MD PCP - General 06/03/17 07/05/21 documented as of this encounter
--- OUTSIDE RECORDS SUMMARY | 2024-10-13 04:11 | XMS_ITS | Encounter Summary ---
Author Organization [facility] Medical Group Address [address] [place] [address] Care Team Providers Care Realty Specialist Name Role Phone Emerson Allen MD Primary Care Provider [phone] Reason for Visit * Reason Onset Date Comments Med Refill 06/15/2017 Encounter Details Date Type Department Care Team (Late st Contact Info) Description 06/15/2017 Telephone [facility] [address] [place] [address] Emerson Allen MD [facility] [address] [place] [address] Med Refill Social History Tobacco Use Types Packs/Day Years Used Date Smoking Tobacco: Heavy Smoker Comments:Smoking History Pac ks/day: 0.5 Packs Alcohol Use Standard Drinks/Week Comments No 0 (1 standard drink = 0.6 oz pur e alcohol) Comments Unknown Sex and Gender Information Value Date Recorded Sex Assigned at Not on file Legal Sex Female 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 Mandy, can you maybe keep an eye for this please? Thanks! * Telephone Encounter - Emerson Allen MD - 06/16/2017 9:26 AM CDT Well, let's try the PA * Telephone Encounter - Darline Catherine MA - 06/15/2017 5:11 PM CDT Received fax from pharmacy, Chantix is not covered. Would you like to start a PA or send something else in? documented in this encounter Plan of Treatment Upcoming Encounters Date Type Department Care Team (Late st Contact Info) Description 02/04/2025 9:30 AM CDT Hospital Encounter [address] [address] Vic Gaines, DO 3 [facility] [place] [address] [place] [address] 02/04/2025 9:30 AM CDT - 02/04/2025 10:00 AM CDT Surgery [address] [address] Vic Gaines, DO 3 [facility] [address] [place] [address] COLONOSCOPY Scheduled Procedures Name Priority Associated Diagnoses Date/Ti me COLONOSCOPY Encounter for screening colonoscopy 02/04/2025 9:30 AM CDT documented as of this encounter Visit Diagnoses Not on filedocumented in this encounter Care Teams Realty Specialist Relationship Specialty Start Date End Date Emerson Allen MD PCP - General 06/03/17 07/05/21 documented as of this encounter
--- OUTSIDE RECORDS SUMMARY | 2024-10-13 04:11 | XMS_ITS | Encounter Summary ---
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 Gender Identity Not on file Sexual Orientation [...] 02/04/2025 9:30 AM CDT Hospital Encounter [facility] 1 [place] [address] Vic Gaines, DO 3 [facility] [address] [facility] [place] [address] [place] [address] 02/04/2025 9:30 AM CDT - 02/04/2025 10:00 AM CDT Surgery [facility] 1 [place] [address] Vic Gaines, DO 3 [facility] [address] [facility] [place] [address] [place] [address] COLONOSCOPY Scheduled Procedures Name Priority Associated Diagnoses [...] on filedocumented in this encounter Care Teams Tax Manager Cpa Relationship Specialty Start Date End Date Emerson Allen MD PCP - General 06/03/17 07/05/21 Phoenix Loredo MD Consulting Physician Cardiology 01/04/19 documented as of this encounter
--- OUTSIDE RECORDS SUMMARY | 2024-10-13 04:11 | XMS_ITS | Encounter Summary ---
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 Gender Identity Not on file Sexual Orientation [...] Description 02/04/2025 9:30 AM CDT Hospital Encounter [facility] 1 [place] [address] Vic Gaines, DO 3 [facility] [address] [place] [address] [place] [address] 02/04/2025 9:30 AM CDT - 02/04/2025 10:00 AM CDT Surgery [facility] 1 [place] [address] Vic Gaines, DO 3 [facility] [place] [address] [place] [address] COLONOSCOPY Scheduled Procedures Name Priority Associated Diagnoses Date/Ti me COLONOSCOPY Encounter for screening colonoscopy 02/04/2025 9:30 AM CDT documented as of this encounter Procedures Procedure Name Priority Date/Time Associated Diagnosis Comments SCAN - LABS 07/25/2017 1:35 PM CDT documented in this encounter Results * SCAN - LABS (07/25/2017 1:35 PM CDT) us Provider Scanning Final Result documented in this encounter Visit Diagnoses Not on filedocumented in this encounter Care Teams Environmental Conservation Officer Relationship Specialty Start Date End Date Emerson Allen MD PCP - General 06/03/17 07/05/21 Phoenix Loredo MD Consulting Physician Cardiology 01/04/19 documented as of this encounter
--- OUTSIDE RECORDS SUMMARY | 2024-10-13 04:11 | XMS_ITS | Encounter Summary ---
Author Organization [facility] Medical Group Address [address] [place] [address] Care Team Providers Care Lens Engraver Name Role Phone Emerson Allen MD Primary Care Provider [phone] Encounter Details Date Type Department Care Team (Late Contact Info) Description 06/16/2017 Telephone [facility] [address] [place] [address] Emerson Allen MD [address] [facility] [address] [place] [address] Social History Tobacco Use Types Packs/Day Years Used Date Smoking Tobacco: Heavy Smoker Comments:Smoking History Pac ks/day: 0.5 Packs Alcohol Use Standard Drinks/Week Comments No 0 (1 standard drink = 0.6 oz pur e alcohol) Comments Unknown Sex and Gender Information Value Date Recorded Sex Assigned at Not on file Legal Sex Female 8:44 AM BAND LEADER Gender Identity Not on file Sexual Orientation Not on file documented as of this encounter Miscellaneous Notes * Telephone Encounter - Mandy Gaviria - 06/16/2017 11:27 AM CDT PA for sonia in [place] documented in this encounter Plan of Treatment Upcoming Encounters Date Type Department Care Team (Late Contact Info) Description 02/04/2025 9:30 AM CDT Hospital Encounter [facility] 1 [place] [address] Vic Gaines, DO [address] [address] 02/04/2025 9:30 AM CDT - 02/04/2025 10:00 AM CDT Surgery [address] [address] Vic Gaines, DO 3 [facility] [address] [place] [address] COLONOSCOPY Scheduled Procedures Name Priority Associated Diagnoses Date/Ti me COLONOSCOPY Encounter for screening colonoscopy 02/04/2025 9:30 AM CDT documented as of this encounter Visit Diagnoses Not on filedocumented in this encounter Care Teams Lens Engraver Relationship Specialty Start Date End Date Emerson Allen MD PCP - General 06/03/17 07/05/21 documented as of this encounter
--- OUTSIDE RECORDS SUMMARY | 2024-10-13 04:11 | XMS_ITS | Encounter Summary ---
Author Organization [facility] Healthcare Address [address] [place] [address] Care Team Providers Care Diamond Die Driller Name Role Phone Emerson Allen MD Primary Care Provider [phone] Encounter Details Date Type Department Care Team (Late Contact Info) Description 12/01/2017 7:30 AM WHOLESALE AND RETAIL MERCHANT Lab [address] [address] Emerson Allen MD [facility] [address] [address] Gastroesophageal reflux disease, esophagitis presence not specified; Mixed hyperlipidemia Discharge Disposition: Discharge to home [...] on file Legal Sex Female 8:44 AM WHOLESALE AND RETAIL MERCHANT Gender Identity Not on file Sexual Orientation Not on file documented as of this encounter Discharge Disposition Disposition Code Departure Means Destination Discharge to home or self care documented in this encounter Plan of Treatment Upcoming Encounters Date Type Department Care Team (Late st Contact Info) Description 02/04/2025 9:30 AM CDT Hospital Encounter [facility] [address] [place] [address] Vic Gaines, DO 3 [facility] [place] [address] [place] [address] 02/04/2025 9:30 AM CDT - 02/04/2025 10:00 AM CDT Surgery [facility] 1 [place] [address] Gastonharleen Vic AgeeChamp, DO 3 [facility] [place] [address] [place] [address] COLONOSCOPY Scheduled Procedures Name Priority Associated Diagnoses Date/Ti me COLONOSCOPY Encounter for screening colonoscopy 02/04/2025 9:30 AM CDT documented as of this encounter Procedures Procedure Name Priority Date/Time Associated Diagnosis Comments DIFFERENTIAL AUTO Routine 12/01/2017 7:3 1 AM WHOLESALE AND RETAIL MERCHANT Gastroesophageal reflux disease, esophagitis presence not specified CBC WITH AUTO DIFFERENTIAL Routine 12/01/2017 7:31 AM WHOLESALE AND RETAIL MERCHANT Gastroesophageal reflux disease, esophagitis presence not specified TSH Routine 12/01/2017 7:31 AM WHOLESALE AND RETAIL MERCHANT Mixed hyperlipidemia LIPID PANEL Routine 12/01/2017 7:31 AM WHOLESALE AND RETAIL MERCHANT Mixed hyperlipidemia COMPREHENSIVE METABOLIC PANEL Routine 12/01/2017 7:31 AM WHOLESALE AND RETAIL MERCHANT Mixed hyperlipidemia DISCHARGE LABORATORY CUMULATIVE REPORT 12/01/2017 12:00 AM WHOLESALE AND RETAIL MERCHANT documented in this encounter Results * Differential, auto (12/01/2017 7:31 AM WHOLESALE AND RETAIL MERCHANT) Neutrophil pct 52.4 44.0 - 80.0 % [facility] Imm gran pct 0.4 0.0 - 1.0 % [facility] Lymphocyte pct 38.6 13.0 - 44.0 % [facility]) Monocyte pct 6.9 2.0 - 11.0 % [facility]) Eosinophil pct 1.3 0.0 - 6.0 % [facility] Basophil pct 0.4 0.0 - 3.0 % [facility] Neutrophil abs 4.17 1.60 - 7.00 K/cumm [facility] ([place]) Imm gran abs 0.03 0.00 - 0.20 K/cumm [facility] ([place]) Lymphocyte abs 3.07 0.50 - 4.30 K/cumm [facility] ([place]) Monocyte abs 0.55 0.10 - 1.00 K/cumm [facility] ([place]) Eosinophil abs 0.10 0.00 - 0.60 K/cumm [facility] ([place]) Basophil abs 0.03 0.00 - 0.30 K/cumm [facility] ([place]) Blood specimen (specimen) 12/01/2017 7:31 AM WHOLESALE AND RETAIL MERCHANT 12/01/2017 8:07 AM WHOLESALE AND RETAIL MERCHANT Narrative [facility] ([place] - 12/01/2017 8:10 AM WHOLESALE AND RETAIL MERCHANT Emerson Allen MD LAB BLOOD ORDERABLES Final Result [facility] ([place]) [address] [facility] [employer] [address] * TSH (12/01/2017 7:31 AM WHOLESALE AND RETAIL MERCHANT) Pathologist [facility] Thyroid Stimulating Hormone 1.94 0.30 - 5.00 mcIUnit/mL [facility] ([place]) Blood specimen (specimen) 12/01/2017 7:31 AM WHOLESALE AND RETAIL MERCHANT 12/01/2017 8:07 AM WHOLESALE AND RETAIL MERCHANT Narrative [facility] ([place] - 12/01/2017 8:51 AM WHOLESALE AND RETAIL MERCHANT Emerson Allen MD LAB BLOOD ORDERABLES Final Result [facility] ([place] 1 [facility] [place] [address] * Lipid panel (12/01/2017 7:31 AM WHOLESALE AND RETAIL MERCHANT) Cholesterol 150 40 - 199 mg/dL [facility] ([place] Comment: Interpretive Data Desirable: ??Less than 200 mg/dl ? Borderline High: ?200 - 239 mg/dl ? High: ??Greater than ?? 239 mg/dl Current interpretive data was last revised on 2014. Triglycerides 144.0 <=150.0 mg/dL [facility] ([place]) Comment: Interpretive Data Normal: ? Less than 150 mg/dl Borderline high: ??150-199 mg/dl ?? High: ? 200-499 mg/dl ? Very high: ??Greater than or equal to 500 mg/dl Current interpretive data was last revised on 2017. HDL 42 40 - 60 mg/dL [facility] ([place]) Comment: Interpretive Data Low HDL Cholesterol: ? Less than 40 mg/dl Normal HDL Cholesterol: ??40-60 mg/dl High HDL Cholesterol: ?Greater than 60 mg/dl Current interpretive data was last revised on 2014. LDL, calculated 79 mg/dL [facility] ([place] Comment: Interpretive Data Optimal ? Less [...] was last revised on 2014. Non-HDL Cholesterol 108 mg/dL [facility] ([place]) Comment: Interpretive Data Optimal ? Less than 130 mg/dL Low Risk ?130 - 159 mg/dL Moderate Risk ? 160 - 189 mg/dL High Risk ? Greater than or equal to 190 mg/dL Current interpretive data was last revised on 2014. Blood specimen (specimen) 12/01/2017 7:31 AM WHOLESALE AND RETAIL MERCHANT 12/01/2017 8:07 AM WHOLESALE AND RETAIL MERCHANT Narrative [facility] ([place]) - 12/01/2017 8:51 AM WHOLESALE AND RETAIL MERCHANT us Emerson Allen MD LAB BLOOD ORDERABLES Final Result [facility] ([place] 1 [facility] [place] [address] * (ABNORMAL) Comprehensive metabolic panel (12/01/2017 7:31 AM WHOLESALE AND RETAIL MERCHANT) Sodium 144 135 - 145 mmol/L [facility] ([place]) Potassium, pl 4.6 3.3 - 4.9 mmol/L [facility]) CO2 27 22 - 32 mmol/L [facility]) BUN 12 8 - 25 mg/dL [facility] ([place]) Glucose 90 70 [...] Current interpretive data was last revised 2017. Creatinine 0.79 0.60 - 1.10 mg/dL [facility] ([place]) Calcium 8.8 8.5 - 10.3 mg/dL [facility]) Chloride 106 97 - 110 mmol/L [facility]) Albumin 4.2 3.5 - 5.0 g/dL [facility] ([place]) AST 12 10 - 45 Units/L [facility]) ALT 15 7 - 45 Units/L [facility] ([place]) Alk phos 95 40 - 130 Units/L [facility] ([place]) Bilirubin, total 0.3 0.1 - 1.2 mg/dL [facility] ([place]) Protein, pl 6.4(L) 6.5 - 8.5 g/dL [facility] ([place]) Anion gap 11 2 - 15 mmol/L [facility] ([place]) Blood specimen (specimen) 12/01/2017 7:31 AM WHOLESALE AND RETAIL MERCHANT 12/01/2017 8:07 AM WHOLESALE AND RETAIL MERCHANT Narrative [facility] ([place]) - 12/01/2017 8:51 AM WHOLESALE AND RETAIL MERCHANT us Emerson Allen MD LAB BLOOD ORDERABLES Final Result [facility] ([place] 1 [facility] [place] [address] * CBC with auto differential (12/01/2017 7:31 AM WHOLESALE AND RETAIL MERCHANT) WBC 8.0 3.8 - 9.9 K/cumm [facility] ([place]) RBC 4.83 3.90 - 5.20 M/cumm [facility] ([place]) Hgb 14.6 11.9 - 15.5 g/dL [facility] ([place]) Hct 43.5 35.6 - 45.5 % [facility]) MCV 90.1 81.3 - 96.4 fL [facility]) MCH 30.2 27.1 - 33.3 pg [facility] ([place]) MCHC 33.6 32.3 - 35.7 g/dL [facility] ([place]) RDW CV 13.2 11.1 - 14.9 % [facility]) RDW SD 43.8 35.7 - 48.1 fL [facility] ([place]) Plt 249 150 - 400 K/cumm [facility] ([place]) MPV 10.2 9.1 - 12.3 fL [facility] ([place]) NRBC abs 0.00 0.00 - 0.01 K/cumm [facility] ([place]) Blood specimen (specimen) 12/01/2017 7:31 AM WHOLESALE AND RETAIL MERCHANT 12/01/2017 8:07 AM WHOLESALE AND RETAIL MERCHANT Narrative [facility] ([place]) - 12/01/2017 8:10 AM WHOLESALE AND RETAIL MERCHANT us Emerson Allen MD LAB BLOOD ORDERABLES Final Result [facility] ([place]) 1 [facility] [place] [address] * DISCHARGE LABORATORY CUMULATIVE REPORT (12/01/2017 12:00 AM WHOLESALE AND RETAIL MERCHANT) Narrative 12/01/2017 12:00 AM WHOLESALE AND RETAIL MERCHANT Ordered by an unspecified provider. Historical Provider LAB BLOOD ORDERABLES Ivette l Result documented in this encounter Visit Diagnoses Diagnosis Gastroesophageal reflux disease, esophagitis presence not specified Mixed hyperlipidemia Encounter for screening colonoscopy documented in this encounter Care Teams Diamond Die Driller Relationship Specialty Start Date End Date Emerson Allen MD PCP - General 06/03/17 07/05/21 documented as of this encounter
--- OUTSIDE RECORDS SUMMARY | 2024-10-13 04:11 | XMS_ITS | Encounter Summary ---
Author Organization [facility] Medical Group Address [address] [place] [address] Care Team Providers Care Computer Systems Auditor Name Role Phone Emerson Allen MD Primary Care Provider [phone] Encounter Details Date Type Department Care Team (Late st Contact Info) Description 06/15/2017 Telephone [facility] of [address] [place] [address] Emerson Allen MD [address] [facility] [address] [place] [address] Social History Tobacco Use Types Packs/Day Years Used Date Smoking Tobacco: Heavy Smoker Comments:Smoking History Pac ks/day: 0.5 Packs Alcohol Use Standard Drinks/Week Comments No 0 (1 standard drink = 0.6 oz pur e alcohol) Comments Unknown Sex and Gender Information Value Date Recorded Sex Assigned at Not on file Legal Sex Female 8:44 AM BEHAVIORAL INTERVENTIONIST Gender Identity Not on file Sexual Orientation Not on file documented as of this encounter Miscellaneous Notes * Telephone Encounter - Rima Kwok - 06/15/2017 7:14 AM CDT Received a fax from [employer] with a graves for [employer] for [employer]. Completed form online andreceived a message stating it could be up to 72 hours for a decision. documented in this encounter Plan of Treatment Upcoming Encounters Date Type Department Care Team (Late st Contact Info) Description 02/04/2025 9:30 AM CDT Hospital Encounter [address] [address] Vic Gaines, DO 3 [facility] [place] [address] [place] [address] 02/04/2025 9:30 AM CDT - 02/04/2025 10:00 AM CDT Surgery [address] [address] Vic Gaines, DO 3 [facility] [place] [address] [place] [address] COLONOSCOPY Scheduled Procedures Name Priority Associated Diagnoses Date/Ti me COLONOSCOPY Encounter for screening colonoscopy 02/04/2025 9:30 AM CDT documented as of this encounter Visit Diagnoses Not on filedocumented in this encounter Care Teams Computer Systems Auditor Relationship Specialty Start Date End Date Emerson Allen MD PCP - General 06/03/17 07/05/21 documented as of this encounter
--- OUTSIDE RECORDS SUMMARY | 2024-10-13 04:11 | XMS_ITS | Encounter Summary ---
Author Organization [facility] Address [address] [facility] [address] [place] [address] Care Team Providers Care Search Engine Optimization Manager Name Role Phone Emerson Allen MD Primary Care Provider [phone] Reason for Visit * Reason Comments Foot Swelling pt complains of swel ling in left foot Other pt states that she h as been smelling smoke that doesn't exist. Encounter Details Date Type Department Care Team (Late st Contact Info) Description 06/14/2017 8:45 AM CDT Office Visit [facility] [address] [place] [address] Emerson Allen MD [address] [facility] [address] [place] [address] Mixed hyperlipidemia (Primary Dx); Peripheral vascular disease (CMS/HCC); Tobacco dependence syndrome; Gastroesophageal reflux disease, esophagitis presence not specified; Mild intermittent asthma without complication; Arthralgia of ankle or foot, left Social History Tobacco Use Types Packs/Day Years Used Date Smoking Tobacco: Heavy Smoker Comments:Smoking History Pac ks/day: 0.5 Packs Alcohol Use Standard Drinks/Week Comments No 0 (1 standard drink = 0.6 oz pur e alcohol) Comments Unknown Sex and Gender Information Value Date Recorded Sex Assigned at Not on file Legal Sex Female 8:[address] ENGINEERING TECHNICIAN Gender Identity Not on file Sexual Orientation Not on file documented as of this encounter Last Filed Vital Signs Vital Sign Reading Time Taken Comments Blood Pressure 125/84 06/14/2017 8:53 AM CDT Pulse 72 06/14/2017 8:53 AM CDT Temperature 37 ??C (98.6 ??F) 06/14/2017 8:53 AM CDT Respiratory Rate - - Oxygen Saturation 100% 06/14/2017 8:53 AM CDT Inhaled Oxygen Concentration - - Weight 72.2 kg (159 lb 1.6 oz) 06/14/2017 8:53 A M CDT Height 154.9 cm (5' 1 ) 06/14/2017 8:53 AM CDT Body Mass Index 30.06 06/14/2017 8:53 AM CDT documented in this encounter Patient Instructions * Patient Instructions* Emerson Allen MD - 06/14/2017 8:45 AM CDT Smoking- ready to quit. Will try for chantix. If not, considering zyban or nicoderm. Lipids- well controlled. Liver function is normal. No change, continue atorvastatin. Continue [id number] well Foot pain- rheumatoid arthritis not thought to be likely, but we'll look into. Response to steroids, will be an option if flaring. Allergies/sinus- resume Flonase. Continue claritin. Call/rtc if worsens Asthma- controlled. Refilled albuterol On probiotic- good documented in this encounter Ordered Prescriptions Prescription Sig Dispense Quantity Refills Last Filled Start Date End Date fluticasone (FLONASE) 50 mcg/actuation nasal spray Administer 2 sprays into each nostril daily. 16 g 5 06/14/2017 8 albuterol HFA (PROAIR HFA) 90 mcg/actuation inhalerIndications :Mild intermittent asthma without complication Inhale 2 puffs every 4 (four) hours as needed for wheezing or shortness of breath. 8.5 g 5 06/14/2017 8 varenicline (CHANTIX PIPER) 0.5 mg (11)- 1 mg (42) tabletIndications: Tobacco dependence syndrome Use as directed on package instructions, try to quit smoking after 1 week. 53 tablet 06/14/2017 7 documented in this encounter Progress Notes * Emerson Allen MD - 06/14/2017 8:45 AM CDT Subjective/Objective Patient ID: Mirtha Cherry is a 52 y.o. female. Chief Complaint Foot Swelling (pt complains of swelling in left foot) and Other (pt states that she has been smelling smoke that doesn't exist. ) Had bunyons removed from L foot in February, and she has had continued problems. Was in ER last week dueto swelling. Blood clots ruled out. 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 She was put on steroids for a week; blood work done 2 days later. Hyperlipidemia This is a chronic problem. The problem is controlled. Exacerbating diseases include obesity. She has no history of chronic renal disease, diabetes, hypothyroidism, liver disease or nephrotic syndrome. Factors aggravating her hyperlipidemia include fatty foods. Pertinent negatives include no chest pain or shortness of breath. The current treatment provides no improvement of lipids. Risk factors for coronary artery disease include obesity, hypertension and dyslipidemia. GERD She reports no abdominal pain, no chest pain, no heartburn, no nausea, no sore throat, no tooth decay, no water brash or no wheezing. This is a chronic problem. The problem occurs constantly. Pertinent negatives include no anemia, fatigue, melena, muscle weakness, orthopnea or weight loss. She has tried a PPI for the symptoms. Current Outpatient Prescriptions: ??? omeprazole (PriLOSEC) 40 mg capsule, Take by mouth., Disp: , Rfl: ??? SUMAtriptan (IMITREX) 50 mg tablet, Take by mouth., Disp: , Rfl: ??? albuterol HFA (PROAIR HFA) 90 mcg/actuation [...] 10 mg tablet, Take 10 mg by mouth., Disp: , Rfl: ??? raNITIdine (ZANTAC) 150 mg tablet, Take 150 mg by mouth., Disp: , Rfl: ??? varenicline (CHANTIX PIPER) 0.5 mg (11)- 1 mg (42) tablet, Use as directed on package instructions, try to quit smoking after 1 week., Disp: 53 tablet, Rfl: 0 Review of Systems Constitutional: Negative for fatigue, fever and weight loss. HENT: Negative for sinus pressure and sore throat. Respiratory: Negative for shortness of breath and wheezing. Cardiovascular: Negative for chest pain, palpitations and leg swelling. Gastrointestinal: Negative for abdominal pain, diarrhea, heartburn, melena, nausea and vomiting. Endocrine: Negative for polydipsia, polyphagia and polyuria. Genitourinary: Negative for flank pain and hematuria. Musculoskeletal: Positive for arthralgias (left foot) and joint swelling. Negative for back pain and muscle weakness. Skin: Negative. Neurological: Negative for dizziness and seizures. Psychiatric/Behavioral: The patient is not nervous/anxious. BP 125/84 (BP Location: Left arm, Patient Position: Sitting) Pulse 72 Temp 37 ??C (98.6 ??F) Ht 154.9 cm (5' 1 ) Wt 72.2 kg (159 lb 1.6 oz) SpO2 100% BMI 30.06 kg/m?? Physical Exam Constitutional: She is oriented to person, place, and time. She appears well- developed and well-nourished. HENT: Head: Normocephalic and atraumatic. Eyes: Conjunctivae are normal. Neck: Normal range of motion. Neck supple. Cardiovascular: Normal rate, regular rhythm, normal heart sounds and intact distal pulses. Exam reveals no gallop and no friction rub. No murmur heard. Pulmonary/Chest: Effort normal. She has no decreased breath sounds. She has no wheezes. She has rhonchi in the right lower field, the left middle field and the left lower field. She has no rales. Abdominal: Soft. Bowel sounds are normal. There is no tenderness. Neurological: She is alert and oriented to person, place, and time. Skin: Skin is warm and dry. Psychiatric: She has a normal mood and affect. Vitals reviewed. Assessment/Plan Diagnoses and all orders for this visit: 1. Mixed hyperlipidemia (Primary) Comments: well controlled. Liver function is normal. No change, continue atorvastatin. Continue coQ10 as well Follow-up in 6 months Orders: - Comprehensive metabolic panel; Future - Lipid panel; Future - TSH; Future 2. Peripheral vascular disease (CMS/HCC) Comments: No change 3. Tobacco dependence syndrome Comments: ready to quit will try chantix trial first, hopefully will be approved if not, consider alternatives Orders: - varenicline (CHANTIX PIPER) 0.5 mg (11)- 1 mg (42) tablet; Use as directed on package instructions,try to quit smoking after 1 week. - XR Chest Pa Lateral 2 Vw; Future 4. Gastroesophageal reflux disease, esophagitis presence not specified - CBC with auto differential; Future 5. Mild intermittent asthma without complication Comments: controlled. Refilled albuterol resume Flonase. Continue claritin. Call/rtc if worsens Orders: - XR Chest Pa Lateral 2 Vw; Future - albuterol HFA (PROAIR HFA) 90 mcg/actuation inhaler; Inhale 2 puffs every 4 (four) hours as needed for wheezing or shortness of breath. 6. Arthralgia of ankle or foot, left Comments: rheumatoid arthritis not thought to be likely, but we'll look into. Response to steroids, will be an option if flaring. Orders: - Rheumatoid factor; Future - Erythrocyte sedimentation rate; Future Other orders - fluticasone (FLONASE) 50 mcg/actuation nasal spray; Administer 2 sprays into each nostril daily. documented in this encounter Miscellaneous Notes * Addendum Note - Ernesto Rogel CLT - 06/14/2017 8:45 AM CDTAddended by: ERNESTO ROGEL on: 12/01/2017 07:27 AM Modules accepted: Orders WAY ENGINEERING TECHNICIAN documented in this encounter Plan of Treatment Upcoming Encounters Date Type Department Care Team (Late st Contact Info) Description 02/04/2025 9:30 AM CDT Hospital Encounter [address] [address] Vic Gaines, DO 3 [facility] [address] [place] [address] 02/04/2025 9:30 AM CDT - 02/04/2025 10:00 AM CDT Surgery [address] [address] Vic Gaines, DO 3 [facility] [address] [place] [address] COLONOSCOPY Scheduled Procedures Name Priority Associated Diagnoses Date/Ti me COLONOSCOPY Encounter for screening colonoscopy 02/04/2025 9:30 AM CDT documented as of this encounter Results * TSH (12/01/2017 7:[address] ENGINEERING TECHNICIAN) Pathologist [facility] Thyroid Stimulating Hormone 1.94 0.30 - 5.00 mcIUnit/mL JAY IZQUIERDO ([place]) Blood specimen (specimen) 12/01/2017 7:[address] ENGINEERING TECHNICIAN 12/01/2017 8:[address] ENGINEERING TECHNICIAN Narrative T[facility]HAB[facility]LEY IZQUIERDO ([place]) - 12/01/2017 8:[address] ENGINEERING TECHNICIAN us Emerson Allen MD LAB BLOOD ORDERABLES Final Result JAY FELECIA ([place]) 1 [facility] Department [place] [address] * Lipid panel (12/01/2017 7:[address] ENGINEERING TECHNICIAN) Cholesterol 150 40 - 199 mg/dL JAY IZQUIERDO ([place]) Comment: Interpretive Data Desirable: ??Less than 200 mg/dl ? Borderline High: ?200 - 239 mg/dl ? High: ??Greater than ?? 239 mg/dl Current interpretive data was last revised on 2014. Triglycerides 144.0 <=150.0 mg/dL JAY IZQUIERDO ([place]) Comment: Interpretive Data Normal: ? Less than 150 mg/dl Borderline high: ??150-199 mg/dl ?? High: ? 200-499 mg/dl ? Very high: ??Greater than or equal to 500 mg/dl Current interpretive data was last revised on 2017. HDL 42 40 - 60 mg/dL JAY IZQUIERDO ([place]) Comment: Interpretive Data Low HDL Cholesterol: ? Less than 40 mg/dl Normal HDL Cholesterol: ??40-60 mg/dl High HDL Cholesterol: ?Greater than 60 mg/dl Current interpretive data was last revised on 2014. LDL, calculated 79 mg/dL [facility] ([place]) Comment: Interpretive Data Optimal ? [...] revised on 2014. Non-HDL Cholesterol 108 mg/dL [facility] ([place]) Comment: Interpretive Data Optimal ? Less than 130 mg/dL Low Risk ?130 - 159 mg/dL Moderate Risk ? 160 - 189 mg/dL High Risk ? Greater than or equal to 190 mg/dL Current interpretive data was last revised on 2014. Blood specimen (specimen) 12/01/2017 7:[address] ENGINEERING TECHNICIAN 12/01/2017 8:[address] ENGINEERING TECHNICIAN Narrative JAY IZQUIERDO ([place]) - 12/01/2017 8:[address] ENGINEERING TECHNICIAN us Emerson Allen MD LAB BLOOD ORDERABLES Final Result [facility] ([place]) 1 [facility] Department [place] [address] * (ABNORMAL) Comprehensive metabolic panel (12/01/2017 7:[address] ENGINEERING TECHNICIAN) Sodium 144 135 - 145 mmol/L [facility] ([place]) Potassium, pl 4.6 3.3 - 4.9 mmol/L [facility] ([place]) CO2 27 22 - 32 mmol/L [facility] ([place]) BUN 12 8 - 25 mg/dL [facility] ([place]) Glucose 90 70 - 199 mg/dL [facility] ([place]) [...] ([place]) Blood specimen (specimen) 12/01/2017 7:[address] ENGINEERING TECHNICIAN 12/01/2017 8:[address] ENGINEERING TECHNICIAN Narrative [facility] ([place]) - 12/01/2017 8:[address] ENGINEERING TECHNICIAN us Emerson Allen MD LAB BLOOD ORDERABLES Final Result [facility] ([place]) 1 [facility] Department of Laboratories [place] [id number] * CBC with auto differential (12/01/2017 7:[address] ENGINEERING TECHNICIAN) WBC 8.0 3.8 - 9.9 K/cumm CERNER [...] RDW SD 43.8 35.7 - 48.1 fL JAY IZQUIERDO ([place]) Plt 249 150 - 400 K/cumm JAY IZQUIERDO ([place]) MPV 10.2 9.1 - 12.3 fL JAY IZQUIERDO ([place]) NRBC abs 0.00 0.00 - 0.01 K/cumm JAY IZQUIERDO ([place]) Blood specimen (specimen) 12/01/2017 7:[address] ENGINEERING TECHNICIAN 12/01/2017 8:[address] ENGINEERING TECHNICIAN Narrative JAY IZQUIERDO ([place]) - 12/01/2017 8:[address] ENGINEERING TECHNICIAN us Emerson Allen MD LAB BLOOD ORDERABLES Final Result JAY IZQUIERDO ([place]) 1 [facility] Department [place] [address] * XR Chest Pa Lateral 2 Vw (06/14/2017 10:20 PM CDT) Anatomical Region Laterality Modality Body, Chest N/A Radiographic Deandra ging 06/14/2017 10:2 0 PM CDT Narrative 06/14/2017 10:20 PM CDT XR Chest 2 Views ?[id number] ??Acc#: ??[id number] DATE OF EXAM: ??Sep ??2016 ?? XR Chest 2 Views ?[id number] HISTORY: TOBACCO DEPENDENCE SYNDROME. ?? Mild intermittent asthma without complication. COMPARISON: None available. FINDINGS: Heart size is normal. ??The lungs are mildly hyperexpanded with diaphragmatic flattening. ??There is no lung consolidation or pleural effusion. IMPRESSION: MILDLY HYPEREXPANDED BUT OTHERWISE CLEAR LUNGS. Electronically signed by: Paulino Michel M.D. Interpreting Physician: ??PAULINO MICEHL M.D. ??Read on: ??Sep ??2016 10:35P Transcribed by: ??PSC ??On: Sep ??2016 10:33P Approved Electronically by: ??PAULINO MICHEL M.D. ??on: ??Sep ??2016 10:33P Ordering DR: DR EMERSON ALLEN Attending DR: DR EMERSON ALLEN Attending: ??DR EMERSON ALLEN Requesting: ??DR EMERSON ALLEN Requesting Fax: ??[phone] Attending Fax: ??[phone] Attending ID: ??[id number] Requesting ID: ??[id number] Report To 1 ID: ??[id number] Report To 1 Name: ??DR EMERSON ALLEN Report To 1 FAX: ??[phone] [employer] Order #: ??[id number] Procedure Note Miscellaneous, Not In File / Provider, MD Charles - 06/14/2017 XR Chest 2 Views [id number] Acc#: [id number] DATE OF EXAM: Jun 14 2017 XR Chest 2 Views [id number] HISTORY: TOBACCO DEPENDENCE SYNDROME. Mild intermittent asthma without complication. COMPARISON: None available. FINDINGS: Heart size is normal. The lungs are mildly hyperexpanded with diaphragmatic flattening. There is no lung consolidation or pleural effusion. IMPRESSION: MILDLY HYPEREXPANDED BUT OTHERWISE CLEAR LUNGS. Electronically signed by: Paulino Michel M.D. Interpreting Physician: PAULINO MICHEL M.D. Read on: Jun 14 2017 10:35P Transcribed by: [facility] On: Jun 14 2017 10:33P Approved Electronically by: PAULINO MICHEL M.D. on: Jun 14 2017 10:33P Ordering DR: DR EMERSON ALLEN Attending DR: DR EMERSON ALLEN Attending: DR EMERSON ALLEN Requesting: DR EMERSON ALLEN Requesting Attending Attending ID: [id number] Requesting ID: [id number] Report To 1 ID: [id number] Report To 1 Name: DR EMERSON ALLEN Report To 1 FAX: [phone] [employer] Order #: [id number] Emerson Allen MD IMG XR PROCEDURES Final Res ult documented in this encounter Visit Diagnoses Diagnosis Mixed hyperlipidemia- Primary Peripheral vascular disease (HCC) Unspecified peripheral vascular disease Tobacco dependence syndrome Tobacco use disorder Gastroesophageal reflux disease, esophagitis presence not specified Mild intermittent asthma without complication Arthralgia of ankle or foot, left Tobacco dependence syndrome Tobacco use disorder Mild intermittent asthma without complication Gastroesophageal reflux disease, esophagitis presence not specified Mixed hyperlipidemia Encounter for screening colonoscopy documented in this encounter Discontinued Medications Medication Sig Discontinue Reason Start Date End Da te aspirin (ECOTRIN LOW STRENGTH) 81 mg tablet take 1 tablet by oral route every day Duplicate order 07/10/2014 06/14/2017 atorvastatin (LIPITOR) 80 mg tablet take 1 tablet by oral route every day Dose adjustment 12/07/2016 06/14/2017 clopidogrel (PLAVIX) 75 mg tablet take 1 tablet by oral route every day Duplicate order 12/07/2016 06/14/2017 loratadine (CLARITIN) 10 mg tablet take 1 tablet by oral route every day Duplicate order 07/10/2014 06/14/2017 omeprazole (PriLOSEC) 40 mg capsule TAKE 1 CAPSULE BY ORAL ROUTE EVERY DAY 30 MINUTES PRIOR TO BREAKFAST Duplicate order 05/30/2016 06/14/2017 raNITIdine (ZANTAC) 300 mg tablet take 1 tablet by oral route every day at bedtime Duplicate order 05/25/2016 06/14/2017 SUMAtriptan (IMITREX) 50 mg tablet take 1 Tablet by oral route once with fluids as early as possible after the onset of a migraine attack;may repeat after 2 hours if headache returns, not to exceed 200mgin 24hrs Duplicate order 07/10/2014 06/14/2017 documented as of this encounter Historical Medications * This list may reflect changes made after this encounter. SUMAtriptan (IMITREX) 50 mg tabletIndications :Migraine Take by mouth. 05/09/2016 09/20/2017 raNITIdine (ZANTAC) 150 mg tablet Take 150 mg by mouth. 07/06/2018 omeprazole (PriLOSEC) 40 mg capsule Take by mouth. 05/30/2016 12/13/2017 loratadine (CLARITIN) 10 mg tablet Take 10 mg by mouth. 12/13/2017 clopidogrel (PLAVIX) 75 mg tablet Take 75 mg by mouth. 07/16/2020 aspirin 81 mg tablet Take 81 mg by mouth. 10/29/2021 atorvastatin (LIPITOR) 40 mg tablet 05/29/2017 04/17/2020 added in this encounter Care Teams Search Engine Optimization Manager Relationship Specialty Start Date End Date Emerson Allen MD PCP - General 06/03/17 07/05/21 documented as of this encounter
--- OUTSIDE RECORDS SUMMARY | 2024-10-13 04:11 | XMS_ITS | Encounter Summary ---
Author Organization [facility] Address [address] [place] [address] Care Team Providers Care Teaching Dietitian Name Role Phone Emerson Allen MD Primary Care Provider [phone] Reason for Visit * Reason Onset Date Comments question 01/02/2018 Encounter Details Date Type Department Care Team (Late st Contact Info) Description 01/02/2018 Telephone [facility] of [address] [place] [address] Emerson Allen MD 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 Called and left a message for Mirtha to call back documented in this encounter Plan of Treatment Upcoming Encounters Date Type Department Care Team (Late st Contact Info) Description 02/04/2025 9:30 AM CDT Hospital Encounter [address] [address] Vic Gaines, DO 3 [facility] [address] [place] [address] 02/04/2025 9:30 AM CDT - 02/04/2025 10:00 AM CDT Surgery [address] [address] Vic Gaines, DO 3 [facility] [address] [place] [address] COLONOSCOPY Scheduled Procedures Name Priority Associated Diagnoses Date/Ti me COLONOSCOPY Encounter for screening colonoscopy 02/04/2025 9:30 AM CDT documented as of this encounter Visit Diagnoses Not on filedocumented in this encounter Care Teams Teaching Dietitian Relationship Specialty Start Date End Date Emerson Allen MD PCP - General 06/03/17 07/05/21 documented as of this encounter
--- OUTSIDE RECORDS SUMMARY | 2024-10-13 04:12 | XMS_ITS | Encounter Summary ---
Author Organization [facility] Address [address] [place] [address] Care Team Providers Care Mutuel Clerk Name Role Phone Emerson Allen MD Primary Care Provider [phone] Encounter Details Date Type Department Care Team (Late st Contact Info) Description 09/11/2009 12:27 PM LEATHER ROLLER - 09/11/2009 11:59 PM LEATHER ROLLER Hospital Encounter [facility] MD [address] [place] [address] [facility] [address] [place] [address] Carpal tunnel syndrome Social History Tobacco Use Types Packs/Day Years Used Date Smoking Tobacco: Never Assessed Comments Unknown Sex and Gender Information Value Date Recorded Sex Assigned at Not on file Legal Sex Female 8:44 AM LEATHER ROLLER Gender Identity Not on file Sexual Orientation Not on file documented as of this encounter Plan of Treatment Upcoming Encounters Date Type Department Care Team (Late st Contact Info) Description 02/04/2025 9:30 AM CDT Hospital Encounter [address] [address] Vic Gaines, DO [address] [address] 02/04/2025 9:30 AM CDT - 02/04/2025 10:00 AM CDT Surgery [address] [address] Vic Gaines, DO [address] [address] COLONOSCOPY Scheduled Procedures Name Priority Associated Diagnoses Date/Ti me COLONOSCOPY Encounter for screening colonoscopy 02/04/2025 9:30 AM CDT documented as of this encounter Visit Diagnoses Diagnosis Carpal tunnel syndrome Encounter for screening colonoscopy documented in this encounter Care Teams Mutuel Clerk Relationship Specialty Start Date End Date Emerson Allen MD PCP - General 11/14/07 01/05/17 documented as of this encounter
--- OUTSIDE RECORDS SUMMARY | 2024-10-13 04:12 | XMS_ITS | Encounter Summary ---
Author Organization [facility] Healthcare Address [address] [place] [address] Care Team Providers Care Rolling Attendant Name Role Phone Francisca Hou Ysey DEL REAL Primary Care Provider [phone] Encounter Details Date Type Department Care Team (Late st Contact Info) Description 03/08/2017 7:44 AM CDT - 03/08/2017 11:59 PM CDT Hospital Encounter [facility] OP INTERIM Phoenix Loredo MD [address] [place] [address] [address] Discharge Disposition: Discharge to home or self care Social History Tobacco Use Types Packs/Day Years Used Date Smoking Tobacco: Heavy Smoker Comments:Smoking History Pac ks/day: 0.5 Packs Alcohol Use Standard Drinks/Week Comments No 0 (1 standard drink = 0.6 oz pur e alcohol) Comments Unknown Sex and Gender Information Value Date Recorded Sex Assigned at Not on file 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 Gender Identity Not on file Sexual Orientation Not on file documented as of this encounter Medications at Time of Discharge aspirin (ECOTRIN LOW STRENGTH) 81 mg tablet take 1 tablet by oral route every day 0 0 07/10/2014 7 atorvastatin (LIPITOR) 80 mg tablet take 1 [...] Description 02/04/2025 9:30 AM CDT Hospital Encounter [address] [address] Vic Gaines, DO 3 [facility] [place] [address] [place] [address] 02/04/2025 9:30 AM CDT - 02/04/2025 10:00 AM CDT Surgery [address] [address] Vic Gaines, DO 3 [facility] [place] [address] [place] [address] [phone] (work) COLONOSCOPY Scheduled Procedures Name Priority Associated Diagnoses Date/Ti me COLONOSCOPY Encounter for screening colonoscopy 02/04/2025 9:30 AM CDT documented as of this encounter Procedures Procedure Name Priority Date/Time Associated Diagnosis Comments EGFR Routine 03/08/2017 7:53 AM CDT TSH Routine 03/08/2017 7:53 AM CDT LIPID PANEL Routine 03/08/2017 7:53 AM CDT COMPREHENSIVE METABOLIC PANEL Routine 03/08/2017 7:53 AM CDT documented in this encounter Results * eGFR (03/08/2017 7:53 AM CDT) eGFR >60 mL/min/1.7 3 m2 JAY IZQUIERDO (ARTEMIO) Comment: Interpretive Data Reference Interval Normal ?>/= 90 mL/min/1.73m2 Mildly decreased* ? 60 - 89 mL/min/1.73m2 Mildly to moderately decreased ?45 - 59 mL/min/1.73m2 Moderately to severely decreased ??30 - 44 mL/min/1.73m2 Severely decreased ?15 - 29 mL/min/1.73m2 Kidney Failure ?< 15 ??mL/min/1.73m2 *Relative to young adult level If -Peruvian multiply value by 1.16. Estimated glomerular filtration [...] was last reviewed 2016. Blood specimen (specimen) 03/08/2017 7:53 AM CDT 03/08/2017 8:28 AM CDT us Phoenix Loredo MD LAB BLOOD ORDERABLES Final Resu lt JAY [facility] (ARTEMIO) 1 [facility] Department [place] [address] * Comprehensive metabolic panel (03/08/2017 7:53 AM CDT) Sodium 144 135 - 145 mmol/L [facility] (ARTEMIO) Potassium 4.4 3.5 - 5.1 mmol/L [facility] (ARTEMIO) Chloride 106 97 - 110 mmol/L [facility] (ARTEMIO) CO2 26 22 - 32 mmol/L [facility] (ARTEMIO) Anion gap 12 8 - 16 mmol/L [facility] (ARTEMIO) Glucose 91 70 - 199 mg/dL [facility] (ARTEMIO) Comment: Interpretive Data Note:The glucose [...] data was last revised on 2014. BUN 12.1 8.0 - 25.0 mg/dL [facility] (ARTEMIO) Creatinine 0.75 0.60 - 1.10 mg/dL [facility] (ARTEMIO) BUN/creat ratio 16 10 - 20 [facility] (ARTEMIO) Calcium 9.3 8.6 - 10.2 mg/dL [facility] (ARTEMIO) Protein, sr 6.8 6.0 - 8.4 g/dL [facility] (ARTEMIO) Albumin 4.1 3.6 - 5.0 g/dL [facility] (ARTEMIO) Alk phos 102 40 - 130 Units/L [facility] (ARTEMIO) ALT 13 5 - 45 Units/L [facility] (ARTEMIO) AST 12 10 - 40 Units/L [facility] (ARTEMIO) Bilirubin, total 0.4 <=1.2 mg/dL [facility] (ARTEMIO) Blood specimen (specimen) 03/08/2017 7:53 AM CDT 03/08/2017 8:28 AM CDT us Phoenix Loredo MD LAB BLOOD ORDERABLES Edited Res ult - Final JAY IZQUIERDO (ARTEMIO) 1 [facility] Department [place] [address] * (ABNORMAL) Lipid panel (03/08/2017 7:53 AM CDT) Cholesterol 149 40 - 199 mg/dL JAY IZQUIERDO (ARTEMIO) Comment: Interpretive Data Desirable: ??Less than 200 mg/dl ? Borderline High: ?200 - 239 mg/dl ? High: ??Greater than ?? 239 mg/dl Current interpretive data was last revised on 2014. Triglycerides 192.0(H) <=150.0 mg/dL JAY IZQUIERDO (ARTEMIO) Comment: Interpretive Data Normal: ? Less than 150 mg/dl Borderline high: ??150-199 mg/dl ?? High: ? 200-499 mg/dl ? Very high: ??Greater than or equal to 500 mg/dl Current interpretive data was last revised on 2017. HDL 36(L) 40 - 60 mg/dL JAY IZQUIERDO (ARTEMIO) Comment: Interpretive Data Low HDL Cholesterol: ? Less than 40 mg/dl Normal HDL Cholesterol: ??40-60 mg/dl High HDL Cholesterol: ?Greater than 60 mg/dl Current interpretive data was last revised on 2014. LDL, calculated 75 mg/dL BASIA PEDRAZA [facility] (ARTEMIO) Comment: Interpretive [...] was last revised on 2014. Non-HDL Cholesterol 113 mg/dL JAY RODNEY) Comment: Interpretive Data Optimal ? Less than 130 mg/dL Low Risk ?130 - 159 mg/dL Moderate Risk ? 160 - 189 mg/dL High Risk ? Greater than or equal to 190 mg/dL Current interpretive data was last revised on 2014. Blood specimen (specimen) 03/08/2017 7:53 AM CDT 03/08/2017 8:28 AM CDT us Phoenix Loredo MD LAB BLOOD ORDERABLES Final Resu lt Performing Organization Address [facility] de Phone Number JAY MckeonARTEMIO) 1 [facility] Department [place] [address] * TSH (03/08/2017 7:53 AM CDT) Thyroid Stimulating Hormone 1.78 0.30 - 5.00 mcIUnit/mL JAY RODNEY) Blood specimen (specimen) 03/08/2017 7:53 AM CDT 03/08/2017 8:28 AM CDT Phoenix Loredo MD LAB BLOOD ORDERABLES Final Resu lt Performing Organization Address City/State/[facility] Co de Phone Number JAY IZQUIERDO (ARTEMIO) 1 [facility] Department of Laboratories [place], [place] [id number] documented in this encounter Visit Diagnoses Not on filedocumented in this encounter Care Teams Rolling Attendant Relationship Specialty Start Date End Date Francisca Hou DO [address] [facility] [address] [place] [address] PCP - General 03/08/17 05/31/17 documented as of this encounter
--- OUTSIDE RECORDS SUMMARY | 2024-10-13 04:12 | XMS_ITS | Encounter Summary ---
Author Organization [facility] Healthcare Address [address] [place] [address] Care Team Providers Care Sales Ledger Clerk Name Role Phone Emerson Allen MD Primary Care Provider [phone] Encounter Details Date Type Department Care Team (Late st Contact Info) Description 05/28/2016 7:27 AM CDT - 05/28/2016 11:59 PM CDT Hospital Encounter [facility] Francisca East DO [address] [facility] [address] [place] [address] Other hyperlipidemia Social History Tobacco Use Types Packs/Day Years Used Date Smoking Tobacco: Heavy Smoker Comments:Smoking History Pac ks/day: 0.5 Packs Alcohol Use Standard Drinks/Week Comments No 0 (1 standard drink = 0.6 oz pur e alcohol) Comments Unknown Sex and Gender Information Value Date Recorded Sex Assigned at Not on file 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 Gender Identity Not on file Sexual Orientation Not on file documented as of this encounter Medications at Time of Discharge aspirin (ECOTRIN LOW STRENGTH) 81 mg tablet take 1 tablet by oral route every day 0 0 07/10/2014 06/14/2017 loratadine (CLARITIN) 10 mg tablet take 1 tablet by oral route every day 0 0 07/10/2014 06/14/2017 raNITIdine (ZANTAC) 300 mg tablet take 1 tablet by oral route every day at bedtime 90 4 05/25/2016 06/14/2017 SUMAtriptan (IMITREX) 50 mg tablet take 1 Tablet by oral route once with fluids as early as possible after the onset of a migraine attack;may repeat after 2 hours if headache returns, not to exceed 200mgin 24hrs 9 5 07/10/2014 06/14/2017 SUMAtriptan (IMITREX) 50 mg tabletIndication s:Migraine Take by mouth. 05/09/2016 09/20/2017 documented as of this encounter Plan of Treatment Upcoming Encounters Date Type Department Care Team (Late st Contact Info) Description 02/04/2025 9:30 AM CDT Hospital Encounter [address] [address] Vic Gaines, DO 3 [facility] [place] [address] [place] [address] 02/04/2025 9:30 AM CDT - 02/04/2025 10:00 AM CDT Surgery [address] [address] Vic Gaines, DO 3 [facility] [place] [address] [place] [address] COLONOSCOPY Scheduled Procedures Name Priority Associated Diagnoses Date/Ti me COLONOSCOPY Encounter for screening colonoscopy 02/04/2025 9:30 AM CDT documented as of this encounter Procedures Procedure Name Priority Date/Time Associated Diagnosis Comments DISCHARGE LABORATORY CUMULATIVE REPORT 05/29/2016 SERUM LIPID PANEL Routine 05/28/2016 7:4 5 AM CDT SERUM ESTIMATED GLOMERULAR FILTRATION RATE Routine 05/28/2016 7:45 AM CDT PLASMA COMPREHENSIVE METABOLIC PANEL Routine 05/28/2016 7:45 AM CDT documented in this encounter Results * DISCHARGE LABORATORY CUMULATIVE REPORT (05/29/2016) Narrative 05/29/2016 Ordered by an unspecified provider. us Historical Provider LAB BLOOD ORDERABLES Ivette l Result * (ABNORMAL) Plasma comprehensive metabolic panel (05/28/2016 7:45 AM CDT) Sodium 142 135 - 145 mmol/L CDR HISTORICAL RESULTS K, pl 4.5 3.5 - 5.1 mmol/L CDR HISTORICAL RESULTS Chloride 103 97 - 110 mmol/L CDR HISTORICAL RESULTS CO2 26 22 - 32 mmol/L CDR HISTORICAL RESULTS A. gap 18(H) 8 - 16 mmol/L CDR HISTORICAL RESULTS Glucose 100 70 - 199 mg/dl CDR HISTORICAL RESULTS Comment: Interpretive Data Note:The glucose is assumed non fasting Fastin-99 mg/dL Random: ??70-199 mg/dL Either a fasting glucose > 126 mg/dL or a random glucose > 200 mg/dL plus symptoms is diagnostic of diabetes when confirmed on another day. Fasting values > 100 mg/dL but < 125 mg/dL are diagnostic of impaired fasting glucose. Current interpretive data was last revised on 2014. BUN 15.8 8.0 - 25.0 mg/dl CDR HISTORICAL RESULTS Creatinine 0.79 0.60 - 1.10 mg/dl CDR HISTORICAL RESULTS BUN/creat ratio 20 10 - 20 CDR HISTORICAL RESULTS Calcium 9.8 8.6 - 10.2 mg/dl CDR HISTORICAL RESULTS Protein, sr 6.6 6.0 - 8.4 g/dl CDR HISTORICAL RESULTS Alb 4.0 3.6 - 5.0 g/dl CDR HISTORICAL RESULTS Alk phos 87 40 - 130 Units/L CDR HISTORICAL RESULTS ALT 18 5 - 45 Units/L CDR HISTORICAL RESULTS AST 16 10 - 40 Units/L CDR HISTORICAL RESULTS Bilirubin <0.2 <=1.2 mg/dl CDR HISTORICAL RESULTS Plasma 05/28/2016 7:45 AM CDT us Historical Provider LAB BLOOD ORDERABLES Ivette l Result CDR HISTORICAL RESULTS * (ABNORMAL) Serum lipid panel (05/28/2016 7:45 AM CDT) Cholesterol 175 40 - 199 mg/dl CDR HISTORICAL RESULTS Comment: Interpretive Data Desirable: ??Less than 200 mg/dl ? Borderline High: ?200 - 239 mg/dl ? High: ??Greater than ?? 239 mg/dl Current interpretive data was last revised on 2014. Triglycerides 173(H) <=150 mg/dl CDR HISTORICAL RESULTS Comment: Interpretive Data Normal: ? Less than 150 mg/dl Borderline high: ??105-199 mg/dl ?? High: ? 200-499 mg/dl ? Very high: ??Greater than or equal to 500 mg/dl Current interpretive data was last revised on 2014. HDL 35(L) 40 - 60 mg/dl CDR HISTORICAL RESULTS Comment: Interpretive Data Low HDL Cholesterol: ? Less than 40 mg/dl Normal HDL Cholesterol: ??40-60 mg/dl High HDL Cholesterol: ?Greater than 60 mg/dl Current interpretive data was last revised on 2014. LDL 105 mg/dl CDR HISTOR ICAL RESULTS Comment: Interpretive Data Optimal ? Less than [...] data was last revised on 2014. Non-HDL cholesterol, calculated 140 mg/dl CDR HISTORICAL RESULTS Comment: Interpretive Data Optimal ? Less than 130 mg/dL Low Risk ?130 - 159 mg/dL Moderate Risk ? 160 - 189 mg/dL High Risk ? Greater than or equal to 190 mg/dL Current interpretive data was last revised on 2014. Serum 05/28/2016 7:45 AM CDT Historical Provider LAB BLOOD ORDERABLES Ivette l Result Performing Organization Address City/[facility] de Phone Number CDR HISTORICAL RESULTS * Serum estimated glomerular filtration rate (05/28/2016 7:45 AM CDT) eGFR >60 ml/min/1.7 3 m2 CDR HISTORICAL RESULTS Comment: Interpretation of Estimated GFR (eGFR): Normal ?>/= 60 mL/min/1.73m2 Possible Chronic Kidney Disease ??15 - 59 mL/min/1.73m2 Possible Kidney Failure ?< 15 ??mL/min/1.73m2 If -Belarusian multiply value by 1.16. ??Estimated glomerular filtration rate is determined by the CKD-EPI equation recommended by the National Kidney Foundation (KDIGO 2012 Clinical Practice Guideline for the Evaluation and Management of Chronic Kidney Disease. ??Kidney Intnl Suppl Oct 2012;3:1). ??The CKD-EPI equation should not be used in acute renal failure or acute kidney injury and is not valid in children. Serum 05/28/2016 7:45 AM CDT Historical Provider LAB BLOOD ORDERABLES Ivette l Result Performing Organization Address City/[facility] Co de Phone Number CDR HISTORICAL RESULTS documented in this encounter Visit Diagnoses Diagnosis Other hyperlipidemia Encounter for screening colonoscopy documented in this encounter Care Teams Sales Ledger Clerk Relationship Specialty Start Date End Date Emerson Allen MD PCP - General 11/14/07 01/05/17 documented as of this encounter
--- OUTSIDE RECORDS SUMMARY | 2024-10-13 04:12 | XMS_ITS | Encounter Summary ---
Author Organization [facility] Healthcare Address [address] [place] [address] Care Team Providers Care Performance Solutions Specialist Name Role Phone Emerson Allen MD Primary Care Provider [phone] Encounter Details Date Type Department Care Team (Late st Contact Info) Description 01/07/2016 10:02 AM CDT - 01/07/2016 12:43 PM CDT Hospital Encounter [facility] Carlos Cardenas MD 1 [facility] [address] [place] [address] Chest pain; Hyperlipidemia; Cigarette nicotine dependence, uncomplicated; Atrial fibrillation (CMS/HCC); Peripheral vascular disease (CMS/HCC); Uncomplicated asthma Social History Tobacco Use Types Packs/Day Years Used Date Smoking Tobacco: Never Assessed Comments Unknown Sex and Gender Information Value Date Recorded Sex Assigned at Not on file 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 Gender Identity Not on file Sexual Orientation Not on file documented as of this encounter Medications at Time of Discharge aspirin (ECOTRIN LOW STRENGTH) 81 mg tablet take 1 tablet by oral route every day 0 0 07/10/2014 06/14/2017 loratadine (CLARITIN) 10 mg tablet take 1 tablet by oral route every day 0 0 07/10/2014 06/14/2017 SUMAtriptan (IMITREX) 50 mg tablet take 1 Tablet by oral route once with fluids as early as possible after the onset of a migraine attack;may repeat after 2 hours if headache returns, not to exceed 200mgin 24hrs 9 5 07/10/2014 06/14/2017 documented as of this encounter Plan of Treatment Upcoming Encounters Date Type Department Care Team (Late st Contact Info) Description 02/04/2025 9:30 AM CDT Hospital Encounter [facility] [address] [place] [address] Vic Gaines, DO 3 [facility] [place] [address] [place] [address] 02/04/2025 9:30 AM CDT - 02/04/2025 10:00 AM CDT Surgery [address] [address] Vic Gaines, DO 3 [facility] [place] [address] [place] [address] COLONOSCOPY Scheduled Procedures Name Priority Associated Diagnoses Date/Ti me COLONOSCOPY Encounter for screening colonoscopy 02/04/2025 9:30 AM CDT documented as of this encounter Procedures Procedure Name Priority Date/Time Associated Diagnosis Comments SERUM MAGNESIUM Routine 01/07/2016 10:40 AM CDT SERUM ESTIMATED GLOMERULAR FILTRATION RATE Routine 01/07/2016 10:40 AM CDT PLASMA TROPONIN-T Routine 01/07/2016 10: 40 AM CDT PLASMA COMPREHENSIVE METABOLIC PANEL Routine 01/07/2016 10:40 AM CDT BLOOD PROTHROMBIN TIME (PT) Routine 01/07/2016 10:40 AM CDT BLOOD D-DIMER Routine 01/07/2016 10:40 AM CDT BLOOD CELL COUNT (CBC), MORPHOLOGIC EXAM Routine 01/07/2016 10:40 AM CDT BLOOD CELL MORPHOLOGIC EXAM Routine 01/07/2016 10:40 AM CDT DISCHARGE LABORATORY CUMULATIVE REPORT 01/07/2016 documented in this encounter Results * (ABNORMAL) Plasma comprehensive metabolic panel (01/07/2016 10:40 AM CDT) Sodium 142 135 - 145 mmol/L HISTORICAL RESULTS K, pl 5.0 3.5 - 5.1 mmol/L HISTORICAL RESULTS Chloride 105 97 - 110 mmol/L HISTORICAL RESULTS CO2 24 22 - 32 mmol/L HISTORICAL RESULTS A. gap 18(H) 8 - 16 mmol/L HISTORICAL RESULTS Glucose 99 70 - 199 mg/dl HISTORICAL RESULTS Comment: Interpretive Data Note:The glucose [...] data was last revised on 2014. BUN 10.0 8.0 - 25.0 mg/dl HISTORICAL RESULTS Creatinine 0.84 0.60 - 1.10 mg/dl HISTORICAL RESULTS BUN/creat ratio 12 10 - 20 HIST ORICAL RESULTS Calcium 9.7 8.6 - 10.2 mg/dl HISTORICAL RESULTS Protein, sr 7.0 6.0 - 8.4 g/dl HISTORICAL RESULTS Alb 4.4 3.6 - 5.0 g/dl HISTORICAL RESULTS Alb/glob ratio 1.7 1.1 - 1.8 ratio HISTORICAL RESULTS Alk phos 94 40 - 130 Units/L HISTORICAL RESULTS ALT 20 5 - 45 Units/L HISTORICAL RESULTS AST 18 10 - 40 Units/L HISTORICAL RESULTS Bilirubin 0.2 <=1.2 mg/dl HISTORICAL RESULTS Plasma 01/07/2016 10:4 0 AM CDT us Historical Provider LAB BLOOD ORDERABLES Ivette deutsch Result HISTORICAL RESULTS * Plasma troponin-T (01/07/2016 10:40 AM CDT) Troponin T <0.01 0.00 - 0.06 ng/ml HISTORICAL RESULTS Comment: Interpretive Data Troponin table: ? Negative ? 0.00-0.06 ng/ml ? Indeterminate ?0.07-0.10 ng/ml ? Consistent with Myocardial Injury ?Greater than 0.10 ng/ml ?? Current interpretive data was last revised on 2014 Plasma 01/07/2016 10:4 0 AM CDT Historical Provider MD LAB BLOOD ORDERABLES Ivette deutsch Result Performing Organization Address [facility] de Phone Number HISTORICAL RESULTS * Serum magnesium (01/07/2016 10:40 AM CDT) Magnesium 2.1 1.6 - 2.4 mg/dl HISTORICAL RESULTS Serum 01/07/2016 10:4 0 AM CDT Result [facility] Historical Provider LAB BLOOD ORDERABLES Ivette deutsch Result Performing Organization Address [facility] Phone Number HISTORICAL RESULTS * Blood prothrombin time (PT) (01/07/2016 10:40 AM CDT) Prothrombin time (PT) 10.3 9.5 - 12.5 seconds HISTORICAL RESULTS INR 0.95 0.90 - 1.20 HISTORIC AL RESULTS Comment: Interpretive Data Recommended ranges for Protime INR: 2.0 - 3.0 Most indications for Warfarin therapy (e.g. Treatment of DVT, PE, bioprosthetic valve replacement, prophylaxis venous thrombosis, atrial fibrillation). 2.5 - 3.5 Mechanical mitral valve or dual mechanical mitral and Aortic valve replacement. Current Interpretive Data was last revised on 2015. Blood specimen (specimen) 01/07/2016 10:40 AM CDT Historical Provider MD LAB BLOOD ORDERABLES Ivette l Result Performing Organization Address City/[facility] Co de Phone Number HISTORICAL RESULTS * Blood cell morphologic exam (01/07/2016 10:40 AM CDT) Neutrophils 52.5 44.0 - 80.0 % HISTORICAL RESULTS Immature granulocytes 0.5 0.0 - 1.0 % HISTORICAL RESULTS Lymphocytes 39.2 13.0 - 44.0 % HISTORICAL RESULTS Monos 6.9 2.0 - 11.0 % HISTORICAL RESULTS Eosinophils 0.7 0.0 - 6.0 % HISTORICAL RESULTS Basophils 0.2 0.0 - 3.0 % HISTORICAL RESULTS Neutrophils, abs 4.4 1.6 - 7.0 K/cumm HISTORICAL RESULTS Immature granulocyte, abs 0.04 0.00 - 0.20 K/cumm HISTORICAL RESULTS Lymphocytes, abs 3.3 0.5 - 4.3 K/cumm HISTORICAL RESULTS Monocytes, absolute 0.6 0.1 - 1.0 K/cumm HISTORICAL RESULTS Eosinophils, abs 0.1 0.0 - 0.6 K/cumm HISTORICAL RESULTS Basophils, abs 0.0 0.0 - 0.3 K/cumm HISTORICAL RESULTS Blood specimen (specimen) 01/07/2016 10:40 AM CDT us Historical Provider LAB BLOOD ORDERABLES Ivette deutsch Result Performing Organization Address [facility] de Phone Number HISTORICAL RESULTS * Blood cell count (CBC), morphologic exam (01/07/2016 10:40 AM CDT) WBC 8.5 3.8 - 9.8 K/cumm HISTORICAL RESULTS RBC 4.82 3.90 - 5.00 M/cumm HISTORICAL RESULTS Hgb 14.6 12.1 - 15.1 g/dl HISTORICAL RESULTS Hct 43.4 36.1 - 44.3 % HISTORICAL RESULTS MCV 90.0 80.0 - 100.0 fl HISTORICAL RESULTS MCH 30.3 26.7 - 33.7 pg HISTORICAL RESULTS MCHC 33.6 32.7 - 36.0 g/dl HISTORICAL RESULTS Rdw 13.1 11.5 - 14.6 % HISTORICAL RESULTS Platelets 220 140 - 440 K/cumm HISTORICAL RESULTS MPV 10.0 8.0 - 12.0 fl HISTORICAL RESULTS NRBC 0.0 0.0 - 0.0 % HISTORIC AL RESULTS NRBC, abs 0.00 0.00 - 0.00 K/cumm HISTORICAL RESULTS Blood specimen (specimen) 01/07/2016 10:40 AM CDT Result [facility] Historical Provider LAB BLOOD ORDERABLES Ivette l Result Performing Organization Address [facility] de Phone Number HISTORICAL RESULTS * Serum estimated glomerular filtration rate (01/07/2016 10:40 AM CDT) eGFR >60 ml/min/1.7 3 m2 HISTORICAL RESULTS Comment: Interpretation of Estimated GFR (eGFR): Normal ?>/= 60 mL/min/1.73m2 Possible Chronic Kidney Disease ??15 - 59 mL/min/1.73m2 Possible Kidney Failure ?< 15 ??mL/min/1.73m2 If -Mosotho multiply value by 1.16. ??Estimated glomerular filtration rate is determined by the CKD-EPI equation recommended by the National Kidney Foundation (KDIGO 2012 Clinical Practice Guideline for the Evaluation and Management of Chronic Kidney Disease. ??Kidney Intnl Suppl Oct 2012;3:1). ??The CKD-EPI equation should not be used in acute renal failure or acute kidney injury and is not valid in children. Serum 01/07/2016 10:4 0 AM CDT Historical Provider LAB BLOOD ORDERABLES Ivette l Result Performing Organization Address [facility] Co de Phone Number HISTORICAL RESULTS * (ABNORMAL) Blood D-dimer (01/07/2016 10:40 AM CDT) D-dimer <150(L) 150 - 230 ng/ml D-DU HISTORICAL RESULTS Comment: Interpretive Data This D-dimer test is approved by the FDA to exclude suspected PE and DVT in outpatients when the result is <230 ng/mL in conjunction with a pre-test probability score of low or moderate using the Wells criteria. Current Interpretive Data was last revised on 2015. Blood specimen (specimen) 01/07/2016 10:40 AM CDT us Historical Provider LAB BLOOD ORDERABLES Ivette l Result HISTORICAL RESULTS * DISCHARGE LABORATORY CUMULATIVE REPORT (01/07/2016) Narrative 01/07/2016 Ordered by an unspecified provider. Historical Provider LAB BLOOD ORDERABLES Ivette l Result documented in this encounter Visit Diagnoses Diagnosis Chest pain Unspecified chest pain Hyperlipidemia Other and unspecified hyperlipidemia Cigarette nicotine dependence, uncomplicated Atrial fibrillation (CMS/HCC) (HCC) Atrial fibrillation Peripheral vascular disease (HCC) Unspecified peripheral vascular disease Uncomplicated asthma Encounter for screening colonoscopy documented in this encounter Care Teams Performance Solutions Specialist Relationship Specialty Start Date End Date Emerson Allen MD PCP - General 11/14/07 01/05/17 documented as of this encounter
--- OUTSIDE RECORDS SUMMARY | 2024-10-13 04:12 | XMS_ITS | Encounter Summary ---
Author Organization [facility] Healthcare Address [address] [place] [address] Care Team Providers Care Stud Dairy Cattle Farmer Name Role Phone Emerson Allen MD Primary Care Provider [phone] Encounter Details Date Type Department Care Team (Late st Contact Info) Description 09/28/2012 9:41 AM WATER QUALITY TECHNICIAN - 09/28/2012 11:59 PM WATER QUALITY TECHNICIAN Hospital Encounter [facility] [place] [address] Nontoxic uninodular goiter Social History Tobacco Use Types Packs/Day Years Used Date Smoking Tobacco: Never Assessed Comments Unknown Sex and Gender Information Value Date Recorded Sex Assigned at Not on file Legal Sex Female 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 Gender Identity Not on file Sexual Orientation Not on file documented as of this encounter Plan of Treatment Upcoming Encounters Date Type Department Care Team (Late st Contact Info) Description 02/04/2025 9:30 AM CDT Hospital Encounter [address] [address] Vic Gaines, DO [address] [address] 02/04/2025 9:30 AM CDT - 02/04/2025 10:00 AM CDT Surgery [address] [address] Vic Gaines, DO [address] [address] COLONOSCOPY Scheduled Procedures Name Priority Associated Diagnoses Date/Ti me COLONOSCOPY Encounter for screening colonoscopy 02/04/2025 9:30 AM CDT documented as of this encounter Visit Diagnoses Diagnosis Nontoxic uninodular goiter Encounter for screening colonoscopy documented in this encounter Care Teams Stud Dairy Cattle Farmer Relationship Specialty Start Date End Date Emerson Allen MD PCP - General 11/14/07 01/05/17 documented as of this encounter
--- OUTSIDE RECORDS SUMMARY | 2024-10-13 04:12 | XMS_ITS | Encounter Summary ---
Author Organization [facility] Healthcare Address [address] [place] [address] Care Team Providers Care Fish Hatchery Supervisor Name Role Phone Emerson Allen MD Primary Care Provider [phone] Encounter Details Date Type Department Care Team (Late st Contact Info) Description 11/28/2015 7:42 AM ELECTRICAL INSTALLER - 11/28/2015 11:59 PM ELECTRICAL INSTALLER Hospital Encounter [facility] Social History Tobacco Use Types Packs/Day Years Used Date Smoking Tobacco: Never Assessed Comments Unknown Sex and Gender Information Value Date Recorded Sex Assigned at Not on file Legal Sex Female 8:44 AM ELECTRICAL INSTALLER Gender Identity Not on file Sexual [...] Description 02/04/2025 9:30 AM CDT Hospital Encounter [address] [address] Vic Gaines, DO 3 [facility] [address] [place] [address] 02/04/2025 9:30 AM CDT - 02/04/2025 10:00 AM CDT Surgery [address] [address] Vic Gaines, DO 3 [facility] [address] [place] [address] COLONOSCOPY Scheduled Procedures Name Priority Associated Diagnoses Date/Ti me COLONOSCOPY Encounter for screening colonoscopy 02/04/2025 9:30 AM CDT documented as of this encounter Visit Diagnoses Not on filedocumented in this encounter Care Teams Fish Hatchery Supervisor Relationship Specialty Start Date End Date Emerson Allen MD PCP - General 11/14/07 01/05/17 documented as of this encounter
--- OUTSIDE RECORDS SUMMARY | 2024-10-13 04:12 | XMS_ITS | Encounter Summary ---
Author Organization [facility] Healthcare Address [address] [place] [address] Care Team Providers Care Purchasing And Fiscal Clerk Name Role Phone Emerson Allen MD Primary Care Provider [phone] Encounter Details Date Type Department Care Team (Late st Contact Info) Description 02/03/2012 12:54 PM CDT - 02/03/2012 11:59 PM CDT Hospital Encounter [facility] [place] [address] Goiter; Nontoxic uninodular goiter Social History Tobacco Use Types Packs/Day Years Used Date Smoking Tobacco: Never Assessed Comments Unknown Sex and Gender Information Value Date Recorded Sex Assigned at Not on file 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 Gender Identity Not on file Sexual Orientation Not on file documented as of this encounter Plan of Treatment Upcoming Encounters Date Type Department Care Team (Late st Contact Info) Description 02/04/2025 9:30 AM CDT Hospital Encounter [address] [address] Vic Gaines, DO [address] [address] 02/04/2025 9:30 AM CDT - 02/04/2025 10:00 AM CDT Surgery [address] [place] [address] Vic Gaines, DO [address] [address] COLONOSCOPY Scheduled Procedures Name Priority Associated Diagnoses Date/Ti me COLONOSCOPY Encounter for screening colonoscopy 02/04/2025 9:30 AM CDT documented as of this encounter Visit Diagnoses Diagnosis Goiter Goiter, unspecified Nontoxic uninodular goiter Encounter for screening colonoscopy documented in this encounter Care Teams Purchasing And Fiscal Clerk Relationship Specialty Start Date End Date Emerson Allen MD PCP - General 11/14/07 01/05/17 documented as of this encounter
--- OUTSIDE RECORDS SUMMARY | 2024-10-13 04:12 | XMS_ITS | Encounter Summary ---
Author Organization [facility] Healthcare Address [address] [place] [address] Care Team Providers Care Assistant Branch Manager Name Role Phone Emerson Allen MD Primary Care Provider [phone] Encounter Details Date Type Department Care Team (Late st Contact Info) Description 12/09/2014 7:28 AM FUR BLOWER - 12/09/2014 9:50 AM FUR BLOWER Hospital Encounter [facility] Chuck Gomez MD [address] [place] [address] [facility] [address] [place] [address] Special screening for malignant neoplasms, colon; Benign neoplasm of colon; Diverticulosis of colon; Hemorrhoids; Tobacco use disorder; Heart disease; Postsurgical percutaneous transluminal coronary angioplasty status; Encounter for long-term (current) use of other medications Social History Tobacco Use Types Packs/Day Years Used Date Smoking Tobacco: Never Assessed Comments Unknown Sex and Gender Information Value Date Recorded Sex Assigned at Not on file Legal Sex Female 8:44 AM FUR BLOWER Gender Identity Not on file Sexual Orientation [...] 07/10/2014 06/14/2017 documented as of this encounter Procedure Notes * ProviderCharles MD - 12/09/2014 12:00 AM CSTAssociated Order(s): COLONOSCOPY PROCEDURE REPORT Patient: MOSHE KINGSTON Account: [id number] Room No: : 1965 Patient Type: SDS Attend.: Chuck Hansen M.D. Admit Date: 12/09/2014 Dict.: Chuck Hansen M.D. Disch. Date: 12/09/2014 NAME OF PROCEDURE: Colonoscopy with polypectomy. HISTORY: This is a 49-year-old female that presents for screening colonoscopy. PHYSICAL EXAMINATION: GENERAL: Well-developed female. LUNGS: Clear. CARDIOVASCULAR: Unremarkable. PROCEDURE: Colonoscopy with polypectomy was performed with an Olympus video endoscope. The patient was premedicated by anesthesia. On digital exam, she has grade III hemorrhoids. We inserted the endoscope and advanced it to the cecum. The colon prep was excellent. We carefully searched the colonic mucosa. In the mid ascending, there was an 8 mm, flat polyp that we biopsied and coagulated. We carefully searched the remainder of the colon. We do note that she has got a few diverticula involving the entire colon, both the right and the left sides, but no evidence of active inflammation or disease. The patient tolerated the procedure without difficulty. POSTOPERATIVE DIAGNOSES: 1. An 8 mm flat polyp biopsies and coagulated ascending. 2. Diffuse diverticulosis. 3. Hemorrhoidal disease. PLAN: Surveillance in five years. Chuck Hansen M.D. DR/evangelista TD: 12/11/2014 07:24 CC: Francisca Hou M.D. Electronically Authenticated by: Chuck Hansen MD On 12/11/2014 12:15 PM FUR BLOWER documented in this encounter Plan of Treatment Upcoming Encounters Date Type Department Care Team (Late st Contact Info) Description 02/04/2025 9:30 AM CDT Hospital Encounter [facility] [address] [place] [address] Vic Gaines, DO 3 [facility] [address] [place] [address] 02/04/2025 9:30 AM CDT - 02/04/2025 10:00 AM CDT Surgery [facility] [address] [place] [address] Vic Gaines, DO [address] [place] [address] [place] [address] COLONOSCOPY Scheduled Procedures Name Priority Associated Diagnoses Date/Ti me COLONOSCOPY Encounter for screening colonoscopy 02/04/2025 9:30 AM CDT documented as of this encounter Procedures Procedure Name Priority Date/Time Associated Diagnosis Comments COLONOSCOPY IMAGES 12/09/2014 COLONOSCOPY 12/09/2014 12:00 AM FUR BLOWER SURGICAL PATHOLOGY 12/09/2014 documented in this encounter Results * Surgical pathology (12/09/2014) Narrative 12/09/2014 Ordered by an unspecified provider. Historical Provider LAB PATHOLOGY ORDERABLES Final Result * COLONOSCOPY (12/09/2014 12:00 AM FUR BLOWER) Anatomical Region Laterality Modality Other Narrative 12/09/2014 12:00 AM FUR BLOWER Ordered by an unspecified provider. Procedure Note Provider, MD Charles - 12/09/2014 12:00 AM CST PROCEDURE REPORT Patient: MOSHE KINGSTON Account: [id number] Room No: : 1965 Patient Type: SDS Attend.: Chuck Hansen M.D. Admit Date: 12/09/2014 Dict.: Chuck Hansen M.D. Disch. Date: 12/09/2014 NAME OF PROCEDURE: Colonoscopy with polypectomy. HISTORY: This is a 49-year-old female that presents for screeningcolonoscopy. PHYSICAL EXAMINATION: GENERAL: Well-developed female. LUNGS: Clear. CARDIOVASCULAR: Unremarkable. PROCEDURE: Colonoscopy with polypectomy was performed with an Olympusvideo endoscope. The patient was premedicated by anesthesia. On digital exam,she has grade III hemorrhoids. We inserted the endoscope and advanced it to thececum. The colon prep was excellent. We carefully searched the colonic mucosa. Inthe mid ascending, there was an 8 mm, flat polyp that we biopsied andcoagulated. We carefully searched the remainder of the colon. We do note that she hasgot a few diverticula involving the entire colon, both the right and the leftsides, but no evidence of active inflammation or disease. The patient toleratedthe procedure without difficulty. POSTOPERATIVE DIAGNOSES: 1. An 8 mm flat polyp biopsies and coagulated ascending. 2. Diffuse diverticulosis. 3. Hemorrhoidal disease. PLAN: Surveillance in five years. Chuck Hansen M.D. /evangelista TD: 12/11/2014 07:24 CC: Francisca Hou M.D. Electronically Authenticated by: Chuck Hansen MD On 12/11/2014 12:15 PM FUR BLOWER us Historical Provider ENDOSCOPY PROCEDURES Ivette l Result * COLONOSCOPY IMAGES (12/09/2014) Anatomical Region Laterality Modality Other Narrative 12/09/2014 Ordered by an unspecified provider. us Historical Provider GI PROCEDURE ORDERABLES F inal Result documented in this encounter Visit Diagnoses Diagnosis Special screening for malignant neoplasms, colon Benign neoplasm of colon Diverticulosis of colon Diverticulosis of colon (without mention of hemorrhage) Hemorrhoids Tobacco use disorder Heart disease Unspecified heart disease Postsurgical percutaneous transluminal coronary angioplasty status Encounter for long-term (current) use of other medications Encounter for screening colonoscopy documented in this encounter Care Teams Assistant Branch Manager Relationship Specialty Start Date End Date Emerson Allen MD PCP - General 11/14/07 01/05/17 documented as of this encounter
--- OUTSIDE RECORDS SUMMARY | 2024-10-13 04:12 | XMS_ITS | Encounter Summary ---
Author Organization [facility] Healthcare Address [address] [place] [address] Care Team Providers Care Health Occupations Teacher Name Role Phone Emerson Allen MD Primary Care Provider [phone] Encounter Details Date Type Department Care Team (Late st Contact Info) Description 11/28/2015 7:38 AM METAL HANGING SUPERVISOR - 11/28/2015 11:59 PM METAL HANGING SUPERVISOR Hospital Encounter [facility] Francisca Hou DO [address] [facility] [address] [place] [address] Encounter for screening for diabetes mellitus; Mixed hyperlipidemia Social History Tobacco Use Types Packs/Day Years Used Date Smoking Tobacco: Never Assessed Comments Unknown Sex and Gender Information Value Date Recorded Sex Assigned at Not on file Legal Sex Female 8:44 AM METAL HANGING SUPERVISOR Gender Identity Not on file Sexual [...] Description 02/04/2025 9:30 AM CDT Hospital Encounter [facility] [address] [place] [address] Vic Gaines, DO 3 [facility] [address] [place] [address] [place] [address] 02/04/2025 9:30 AM CDT - 02/04/2025 10:00 AM CDT Surgery [facility] [address] [place] [address] Vic Gaines, DO 3 [facility] [address] [place] [address] [place] [address] COLONOSCOPY Scheduled Procedures Name Priority Associated Diagnoses Date/Ti me COLONOSCOPY Encounter for screening colonoscopy 02/04/2025 9:30 AM CDT documented as of this encounter Procedures Procedure Name Priority Date/Time Associated Diagnosis Comments SERUM LIPID PANEL Routine 11/28/2015 7:4 2 AM METAL HANGING SUPERVISOR SERUM HEPATITIS PANEL Routine 11/28/2015 7:42 AM METAL HANGING SUPERVISOR SERUM ESTIMATED GLOMERULAR FILTRATION RATE Routine 11/28/2015 7:42 AM METAL HANGING SUPERVISOR PLASMA COMPREHENSIVE METABOLIC PANEL Routine 11/28/2015 7:42 AM METAL HANGING SUPERVISOR DISCHARGE LABORATORY CUMULATIVE REPORT 11/28/2015 documented in this encounter Results * (ABNORMAL) Plasma comprehensive metabolic panel (11/28/2015 7:42 AM METAL HANGING SUPERVISOR) Sodium 143 135 - 145 mmol/L HISTORICAL RESULTS K, pl 4.6 3.5 - 5.1 mmol/L HISTORICAL RESULTS Chloride 104 97 - 110 mmol/L HISTORICAL RESULTS CO2 25 22 - 32 mmol/L HISTORICAL RESULTS A. gap 19(H) 8 - 16 mmol/L HISTORICAL RESULTS Glucose 97 70 - 199 mg/dl HISTORICAL RESULTS Comment: [...] data was last revised on 2014. BUN 9.9 8.0 - 25.0 mg/dl HISTORICAL RESULTS Creatinine 0.80 0.60 - 1.10 mg/dl HISTORICAL RESULTS BUN/creat ratio 12 10 - 20 HIST ORICAL RESULTS Calcium 9.1 8.6 - 10.2 mg/dl HISTORICAL RESULTS Protein, sr 6.9 6.0 - 8.4 g/dl HISTORICAL RESULTS Alb 4.1 3.6 - 5.0 g/dl HISTORICAL RESULTS Alb/glob ratio 1.5 1.1 - 1.8 ratio HISTORICAL RESULTS Alk phos 96 40 - 130 Units/L HISTORICAL RESULTS ALT 17 5 - 45 Units/L HISTORICAL RESULTS AST 15 10 - 40 Units/L HISTORICAL RESULTS Bilirubin <0.2 <=1.2 mg/dl HISTORICAL RESULTS Plasma 11/28/2015 7:42 AM METAL HANGING SUPERVISOR us Historical Provider LAB BLOOD ORDERABLES Ivette deutsch Result HISTORICAL RESULTS * (ABNORMAL) Serum lipid panel (11/28/2015 7:42 AM METAL HANGING SUPERVISOR) Cholesterol 270(H) 40 - 199 mg/dl HISTORICAL RESULTS Comment: Interpretive Data Desirable: ??Less than 200 mg/dl ? Borderline High: ?200 - 239 mg/dl ? High: ??Greater than ?? 239 mg/dl Current interpretive data was last revised on 2014. Triglycerides 252(H) <=150 mg/dl HISTORICAL RESULTS Comment: Interpretive Data Normal: ? Less than 150 mg/dl Borderline high: ??105-199 mg/dl ?? High: ? 200-499 mg/dl ? Very high: ??Greater than or equal to 500 mg/dl Current interpretive data was last revised on 2014. HDL 35(L) 40 - 60 mg/dl HISTORICAL RESULTS Comment: Interpretive Data Low HDL Cholesterol: ? Less than 40 mg/dl Normal HDL Cholesterol: ??40-60 mg/dl High HDL Cholesterol: ?Greater than 60 mg/dl Current interpretive data was last revised on 2014. LDL 185 mg/dl HISTORICAL RESULTS Comment: Interpretive Data Optimal ? [...] last revised on 2014. Non-HDL cholesterol, calculated 235 mg/dl HISTORICAL RESULTS Comment: Interpretive Data Optimal ? Less than 130 mg/dL Low Risk ?130 - 159 mg/dL Moderate Risk ? 160 - 189 mg/dL High Risk ? Greater than or equal to 190 mg/dL Current interpretive data was last revised on 2014. Serum 11/28/2015 7:42 AM METAL HANGING SUPERVISOR us Historical Provider LAB BLOOD ORDERABLES Ivette deutsch Result HISTORICAL RESULTS * Serum estimated glomerular filtration rate (11/28/2015 7:42 AM METAL HANGING SUPERVISOR) eGFR >60 ml/min/1.7 3 m2 HISTORICAL RESULTS Comment: Interpretation of Estimated GFR (eGFR): Normal ?>/= 60 mL/min/1.73m2 Possible Chronic Kidney Disease ??15 - 59 mL/min/1.73m2 Possible Kidney Failure ?< 15 ??mL/min/1.73m2 If -Filipino multiply value by 1.16. ??Estimated glomerular filtration rate is determined by the CKD-EPI equation recommended by the National Kidney Foundation (KDIGO 2012 Clinical Practice Guideline for the Evaluation and Management of Chronic Kidney Disease. ??Kidney Intnl Suppl Oct 2012;3:1). ??The CKD-EPI equation should not be used in acute renal failure or acute kidney injury and is not valid in children. Serum 11/28/2015 7:42 AM METAL HANGING SUPERVISOR Historical Provider LAB BLOOD ORDERABLES Ivette l Result Performing Organization Address City/State/[facility] Co de Phone Number HISTORICAL RESULTS * Serum Hepatitis panel (11/28/2015 7:42 AM METAL HANGING SUPERVISOR) HAV ab, IgM Negative Negative HISTORIC AL RESULTS HBV core ab, IgM Negative Negative HISTORICAL RESULTS HBV surface ag Negative Negative HISTO RICAL RESULTS Comment:Test performed at [facility], [address] [place] [address], [facility] [place]., [address] HCV ab Negative Negative HISTORICAL RESULTS Serum 11/28/2015 7:42 AM METAL HANGING SUPERVISOR Historical Provider LAB BLOOD ORDERABLES Ivette l Result HISTORICAL RESULTS * DISCHARGE LABORATORY CUMULATIVE REPORT (11/28/2015) Narrative 11/28/2015 Ordered by an unspecified provider. Historical Provider LAB BLOOD ORDERABLES Ivette l Result documented in this encounter Visit Diagnoses Diagnosis Encounter for screening for diabetes mellitus Mixed hyperlipidemia Encounter for screening colonoscopy documented in this encounter Care Teams Health Occupations Teacher Relationship Specialty Start Date End Date Emerson Allen MD PCP - General 11/14/07 01/05/17 documented as of this encounter
--- OUTSIDE RECORDS SUMMARY | 2024-10-13 04:12 | XMS_ITS | Encounter Summary ---
Author Organization [facility] Healthcare Address [address] [place] [address] Care Team Providers Care Metal Solderer Name Role Phone Emerson Allen MD Primary Care Provider [phone] Encounter Details Date Type Department Care Team (Late st Contact Info) Description 03/16/2011 12:49 AM CDT - 03/16/2011 1:45 AM CDT Hospital Encounter [facility] Alisha Allen, MD [address] [place] [address] Disorder of teeth and supporting structures; Other and unspecified hyperlipidemia; Tobacco use disorder Social History Tobacco Use Types Packs/Day Years Used Date Smoking Tobacco: Never Assessed Comments Unknown Sex and Gender Information Value Date Recorded Sex Assigned at Not on file 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 Sex Female 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 Gender Identity Not on file Sexual Orientation Not on file documented as of this encounter Plan of Treatment Upcoming Encounters Date Type Department Care Team (Late st Contact Info) Description 02/04/2025 9:30 AM CDT Hospital Encounter [facility] [address] [place] [address] Vic Gaines, DO [address] [address] 02/04/2025 9:30 AM CDT - 02/04/2025 10:00 AM CDT Surgery [facility] [address] [place] [address] Vic Gaines, DO [address] [address] COLONOSCOPY Scheduled Procedures Name Priority Associated Diagnoses Date/Ti me COLONOSCOPY Encounter for screening colonoscopy 02/04/2025 9:30 AM CDT documented as of this encounter Visit Diagnoses Diagnosis Disorder of teeth and supporting structures Unspecified disorder of the teeth and supporting structures Other and unspecified hyperlipidemia Tobacco use disorder Encounter for screening colonoscopy documented in this encounter Care Teams Metal Solderer Relationship Specialty Start Date End Date Emerson Aleln MD PCP - General 11/14/07 01/05/17 documented as of this encounter
--- OUTSIDE RECORDS SUMMARY | 2024-10-13 04:12 | XMS_ITS | Encounter Summary ---
Author Organization [facility] Address [address] [address] Care Team Providers Care Broadcast Systems Engineer Name Role Phone Emerson Allen MD Primary Care Provider Emerson Allen MD Primary Care Provider [phone] Francisca Hou DO Primary Care Provider Francisca Hou DO Primary Care Provider Emerson Allen MD Primary Care Provider [phone] [place] Loredo MD Unavailable [phone] Aylin Lundy MD Unavailable Celine Solano PAPER PRODUCTS 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 Primary Care Provider Emerson Allen MD Primary Care Provider [phone] Emerson Allen MD Primary Care Provider [phone] Celine Solano PAPER PRODUCTS 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 Primary Care Provider Harper Myers DO Primary Care Provider [phone] Karson Forbes MD Primary Care Provider [phone] Daniel Last MD Unavailable [phone] Ho Phan MD Unavailable Encounter Details Date Type Department Care Team (Late st Contact Info) Description 01/04/2015 Orders Only [facility] Health Information Management [address] [place] [address] Scanning, Provider Social History Tobacco Use Types Packs/Day Years Used Date Smoking Tobacco: Never Assessed Comments Unknown Sex and Gender Information Value Date Recorded Sex Assigned at Not on file Legal Sex Female 8:44 AM BUILDING CONSTRUCTION INSPECTOR Gender Identity Not on file Sexual Orientation Not on file documented as of this encounter Plan of Treatment Upcoming Encounters Date Type Department Care Team (Late st Contact Info) Description 02/04/2025 9:30 AM CDT Hospital Encounter [address] [address] Vic Gaines, DO 3 [facility] [address] [place] [address] 02/04/2025 9:30 AM CDT - 02/04/2025 10:00 AM CDT Surgery [address] [address] Vic Gaines, DO 3 [facility] [place] [address] [place] [address] COLONOSCOPY Scheduled Procedures Name Priority Associated Diagnoses Date/Ti me COLONOSCOPY Encounter for screening colonoscopy 02/04/2025 9:30 AM CDT documented as of this encounter Procedures Procedure Name Priority Date/Time Associated Diagnosis Comments SCAN - LABS 01/04/2015 documented in this encounter Results * SCAN - LABS (01/04/2015) us Provider Scanning Final Result documented in this encounter Visit Diagnoses Not on filedocumented in this encounter Additional Health Concerns Infection Onset Date Last Indicated Resolved Time COVID: Suspected 02/27/2021 02/27/2021 02/27/2021 5:36 PM CDT COVID: Suspected 08/14/2022 08/14/2022 08/14/2022 8:25 AM BUILDING CONSTRUCTION INSPECTOR COVID: Suspected 08/14/2022 08/14/2022 08/14/2022 8:26 AM BUILDING CONSTRUCTION INSPECTOR COVID19 08/14/2022 08/14/2022 08/24/2022 3:05 AM BUILDING CONSTRUCTION INSPECTOR COVID: Recovered Comment:Added based on recent COVID infection. 08/24/2022 08/28/2022 11/22/2022 3:[address] COVID: Suspected 02/08/2023 02/08/2023 02/08/2023 2:19 PM CDT COVID: Suspected 02/19/2023 02/19/2023 02/19/2023 7:28 AM CDT COVID: Suspected 05/21/2024 05/21/2024 05/21/2024 3:28 PM CDT COVID: Suspected 05/22/2024 05/22/2024 05/23/2024 5:29 AM CDT documented as of this encounter Care Teams Broadcast Systems Engineer Relationship Specialty Start Date End Date Emerson Allen MD PCP - General 01/06/17 03/07/17 Emerson Allen MD PCP - General 11/14/07 01/05/17 Francisca Hou DO 4 [facility] [address] [place] [address] PCP - General 03/08/17 05/31/17 Francisca Hou DO [address] [facility] [address] [place] [address] PCP - General 06/01/17 06/02/17 Emerson Allen MD PCP - General 06/03/17 07/05/21 [place] [address] [place] [address] PCP - General Family Medicine 07/06/21 07/22/21 Emerson Allen MD PCP - General 07/23/21 08/01/21 Emerson Allen MD PCP - General 08/02/21 09/16/21 [place] [id number] [place] [address] PCP - General Family Medicine 09/17/21 09/22/21 Harper Myers DO [address] [place] [address] PCP - General Family Medicine 09/23/21 11/22/23 Karson Forbes MD [address] [facility] [place] [address] PCP - General Family Medicine 11/23/23 [place] Loredo MD [address] [facility] [address] [place] [address] Consulting Physician Cardiology 01/04/19 Aylin Lundy MD [address] [place] [address] Specialty Therapist Obstetrics and Gynecology 04/19/21 [place] [address] [address] [facility] [place] [address] Consulting Physician Urology 05/17/24 Ho Phan MD [address] [facility] [place] [address] Medical Oncologist/Speeder Hand Hematology and Oncology 06/04/24 documented as of this encounter
--- OUTSIDE RECORDS SUMMARY | 2024-10-13 04:12 | XMS_ITS | Encounter Summary ---
Author Organization [facility] Address [address] [place] [address] Care Team Providers Care Sheet Rock Taper Name Role Phone Emerson Allen MD Primary Care Provider Encounter Details Date Type Department Care Team (Late st Contact Info) Description 11/06/2009 7:41 AM REFUSE COLLECTOR - 11/06/2009 10:20 AM REFUSE COLLECTOR Hospital Encounter [facility] Levi Alvarez MD [address] [place] [address] [address] [place] [address] Carpal tunnel syndrome; Migraine; Personal history of allergy to narcotic agent Social History Tobacco Use Types Packs/Day Years Used Date Smoking Tobacco: Never Assessed Comments Unknown Sex and Gender Information Value Date Recorded Sex Assigned at Not on file Legal Sex Female 8:44 AM REFUSE COLLECTOR Gender Identity Not on file Sexual Orientation Not on file documented as of this encounter Plan of Treatment Upcoming Encounters Date Type Department Care Team (Late st Contact Info) Description 02/04/2025 9:30 AM CDT Hospital Encounter [facility] [address] [place] [address] Vic Gaines, DO [address] [address] 02/04/2025 9:30 AM CDT - 02/04/2025 10:00 AM CDT Surgery [facility] [address] [place] [address] Vic Gaines, DO [address] [address] COLONOSCOPY Scheduled Procedures Name Priority Associated Diagnoses Date/Ti me COLONOSCOPY Encounter for screening colonoscopy 02/04/2025 9:30 AM CDT documented as of this encounter Visit Diagnoses Diagnosis Carpal tunnel syndrome Migraine Migraine, unspecified, without mention of intractable migraine without mention of status migrainosus Personal history of allergy to narcotic agent Encounter for screening colonoscopy documented in this encounter Care Teams Sheet Rock Taper Relationship Specialty Start Date End Date Emerson Allen MD PCP - General 11/14/07 01/05/17 documented as of this encounter
--- OUTSIDE RECORDS SUMMARY | 2024-10-13 04:22 | XMS_ITS | Encounter Summary ---
Author Organization [facility] Address [address] [facility] Gonzalez: Epic Prelude ADT [place] [address] Care Team Providers Care Containers Sales Representative Name Role Phone Emerson Allen MD Primary Care Provider Encounter Details Date Type Department Care Team (Latest Contact Info) Description 01/03/2020 Travel Social History Tobacco Use Types Packs/Day Years Used Date Smoking Tobacco: Every Day Cigarettes 0.5 35 Smokeless Tobacco: Never Alcohol Use Standard Drinks/Week Comments Yes 0 (1 standard drink = 0.6 oz pur e alcohol) rarely Sex and Gender Information Value Date Recorded Sex Assigned at Not on file Gender Identity Not on file Sexual Orientation Not on file COVID-19 Exposure Response Date Recorded In the last month, have you been in contact with someone who was confirmed or suspected to have Coronavirus / COVID-19? No / Unsure 01/03/2020 11:42 AM CDT documented as of this encounter Plan of Treatment Not on file documented as of this encounter Visit Diagnoses Not on filedocumented in this encounter Care Teams Containers Sales Representative Relationship Specialty Start Date End Date Emerson Allen MD [address] [place] [phone] PCP - General Family Practice 04/27/18 documented as of this encounter
--- OUTSIDE RECORDS SUMMARY | 2024-10-13 04:22 | XMS_ITS | Clinical Summary ---
Author Organization [facility] Address [address] [place] [address] Phone Care Team Providers Care Wastewater Treatment Plant Instructor Name Role Phone Emerson Allen MD Primary Care Provider Allergies Active Allergy Reactions Criticality Noted Date Comments Adhesive Rash Low Codeine Nausea and Vomiting Low 06/07/2016 Iodine Itching High 05/10/2018 Medications Medication Sig Dispensed Refills Start Date End Date Status atorvastatin (LIPITOR) 40 mg tablet Take 40 mg by mouth daily . 05/29/2017 Active coenzyme Q10 200 mg Capsule Take 200 mg by mouth daily . 12/07/2016 Active Lactobacillus acidophilus 10 billion cell Capsule Take 1 capsule by oral route every day 12/07/2016 Active loratadine (CLARITIN) 10 mg tablet Take 10 mg by mouth 1 time daily as needed . Active omeprazole (PriLOSEC) 40 mg Capsule, Delayed Release(E.C.) Take 40 mg by mouth daily . 3 04/04/2018 Active SUMAtriptan (IMITREX) 50 mg tablet TAKE 1 TABLET BY MOUTH EARLY POSSIBLE AFTER ONSET OF MIGRAINE. MAY REPEAT AFTER 2 HOURS IF HEADACHE RETURNS. 12/13/2017 Active albuterol HFA 90 mcg inhaler Take 2 Puffs by inhalation every 6 hours as needed for Shortness of Breath. Active cephALEXin (KEFLEX) 500 mg capsule TK 1 C PO QID X 10 DAYS 0 06/05/2018 Active oxyCODONE-acetaminop hen (PERCOCET) 5-325 mg tablet Take 1 Tablet by mouth every 6 hours as needed for Pain. Max Daily Amount: 4 Tablets 20 Tablet 06/08/2018 Active clopidogrel (PLAVIX) 75 mg Tablet TK 1 T PO ONCE A DAY 2 06/10/2018 Active Active Problems Patient Care Coordination No te Formatting of this note migh t be different from the original. Primary Care: Emerson Allen MD Referring Provider: No referring provider defined for this encounter. Other: Problem Noted Date Diagnosed Date Chewing tobacco dependence 06/08/2018 S/P bilateral mastectomy 05/16/2018 Lobular carcinoma in situ (LCIS) of right breast 12/26/2017 Overview (04/27/2018): [facility] Family History Medical History Relation Name Comments Lung Cancer Father Throat Cancer Father Breast Cancer Paternal Grandmother ross Relation Name Status Comments Father Paternal Grandmother ross Social History Tobacco Use Types Packs/Day Years [...] Sign Reading Time Taken Comments Blood Pressure 130/74 04/01/2019 11:37 AM CDT Pulse 89 11/23/2018 10:46 AM SERVICE RIG OPERATOR Temperature 36.3 ??C (97.3 ??F) 06/08/2018 8:54 AM CD T Respiratory Rate 18 06/08/2018 10:3 0 AM CDT Oxygen Saturation 96% 06/08/2018 10: 30 AM CDT Inhaled Oxygen Concentration - - Weight 71.1 kg (156 lb 12.8 oz) 019 11:37 AM CDT Height 154.9 cm (5' 1 ) 04/01/2019 11:3 7 AM CDT Body Mass Index 29.63 04/01/2019 11:37 AM CDT Plan of Treatment Health Maintenance Due Date Last Done Comments DTAP/TDAP/TD VACCINES (1 - Tdap) 1983 CERVICAL CANCER SCREENING 1994 COLORECTAL SCREENING 2009 Colorectal Cancer Screening 2009 FIT-DNA Q 3 years 2009 FIT/FOBT Q 1 year 2009 Flex Sig/CT Colonography Q 5 years 2009 PNEUMOCOCCAL VACCINE 0-64 YEARS (2 of 2 - PCV) 12/17/2010 12/17/2009 ZOSTER VACCINE (1 of 2) 2014 BREAST CANCER SCREENING 04/01/2020 04/01/20 19, 11/23/2018, 06/29/2018, Additional history exists RSV VACCINE (60+ or ) (1 - Risk 60-74 years 1-dose series) 2024 INFLUENZA VACCINE (#1) 2024 8, 07/09/2015, 08/21/2014 HEPATITIS B VACCINES Aged Out No long er eligible based on patient's age to complete this topic Medical Devices Implanted Type Area Line Pilot Device Identifier Shelf Expiration Date Model / Serial / Lot Hemostatic Surgicel 2x14in 1950 - [id number] Implanted:Qty : 1 on 05/16/2018 by Jennifer Waters MD at [facility] Hemostatic Left: Breast [employer] [id number] 07/08/20221950 / / [id number] Hemostatic Surgicel 4x8in 1952 - [id number] Implanted:Qty : 1 on 05/16/2018 by Jennifer Waters MD at [facility] Hemostatic Right: Breast [employer] [id number] 12/06/20221951 / / [id number] Hemostatic Surgicel 4x8in 1952 - [id number] Implanted:Qty : 1 on 05/16/2018 by Jennifer Waters MD at [facility] Hemostatic Right: Breast [employer] [id number] 12/06/20221951 / / [id number] Hemostatic Surgicel 4x8in 1952 - [id number] Implanted:Qty : 1 on 05/16/2018 by Jennifer Waters MD at [facility] Hemostatic Right: Breast [employer] [id number] 12/06/20221951 / / [id number] Hemostatic Surgicel 4x8in 1952 - [id number] Implanted:Qty : 1 on 05/16/2018 by Jennifer Waters MD at [facility] Hemostatic Right: Breast [employer] [id number] 12/06/202239311210 Hemostatic Surgicel 4x8in 1952 [id number] Implanted:Qty : 1 on 05/16/2018 by Jennifer Waters MD at [facility] Hemostatic Left: Breast [employer] [id number] 12/06/20221951 [id number] Hemostatic Surgicel 4x8in 1952 [id number] Implanted:Qty : 1 on 05/16/2018 by Jennifer Waters MD at [facility] Hemostatic Left: Breast [employer] [id number] 12/06/202239311210 Hemostatic Surgicel 4x8in [id number] Implanted:Qty : 1 on 05/16/2018 by Jennifer Waters MD at [facility] Hemostatic Left: Breast [employer] [id number] 12/06/202239311210 Hemostatic Surgicel 2x14in [id number] Implanted:Qty : 1 on 06/08/2018 by Jennifer Waters MD at [facility] Hemostatic Right: Breast [employer] 07/08/20221950 [id number] Stent Abdominal Area Surgicel Powder Implanted:Qty : 1 on 06/08/2018 by Jennifer Waters MD at [facility] Bilateral : Breast 10/08/2019 / / [id number] Procedures Procedure Name Priority Date/Time Associated Diagnosis Comments MAMMO DIAGNOSTIC BILATERAL W OR WO CAD Routine 12/26/2017 from Last 3 Months or Most Recently Relevant to Health Maintenance Results * (ABNORMAL) MAMMO DIAGNOSTIC BILATERAL W OR WO CAD (12/26/2017) Anatomical Region Laterality Modality Breast Bilateral Other Emerson Allen MD MAMMO ORDERABL ES from Last 3 Months or Most Recently Relevant to Health Maintenance Advance Directives For more information, please contact: [phone] * Full Code (Latest Code Status on File) Date Activated Date Inactivated Comments 06/08/2018 7:03 AM 06/08/2018 1:07 PM * Full Code Date Activated Date Inactivated Comments 06/08/2018 6:35 AM 06/08/2018 7:03 AM * Full Code Date Activated Date Inactivated Comments 05/16/2018 4:06 PM 05/17/2018 1:02 PM * Full Code Date Activated Date Inactivated Comments 05/16/2018 1:58 PM 05/16/2018 4:05 PM Care Teams Wastewater Treatment Plant Instructor Relationship Specialty Start Date End Date Emerson Allen MD [address] [place] [phone] PCP - General Family Practice 04/27/18
--- OUTSIDE RECORDS SUMMARY | 2024-10-13 04:22 | XMS_ITS | Encounter Summary ---
Author Organization [facility] Address [address] [place] [address] Care Team Providers Care Belt Back Operator Name Role Phone Emerson Allen MD Primary Care Provider Reason for Visit * Reason Comments Surgical Consult fluid build up on le ft axilla Axillary Mass left Encounter Details Date Type Department Care Team (Late st Contact Info) Description 11/23/2018 10:45 AM VEHICLE TECHNICIAN Office Visit [facility] BREAST SURGERY - [place] C[facility]KS[facility] [address] [facility] [address] [place] [address] Jennifer Waters MD [address] [place] [facility] [place] [address] Lobular carcinoma in situ (LCIS) of right breast (Primary Dx); S/P bilateral mastectomy; Chewing tobacco dependence Social History Tobacco Use Types Packs/Day [...] Sign Reading Time Taken Comments Blood Pressure 130/79 11/23/2018 10:46 AM VEHICLE TECHNICIAN Pulse 89 11/23/2018 10:46 AM VEHICLE TECHNICIAN Temperature - - Respiratory Rate - - Oxygen Saturation - - Inhaled Oxygen Concentration - - Weight 73.5 kg (162 lb) 11/23/2018 10:46 AM VEHICLE TECHNICIAN Height 154.9 cm (5' 1 ) 11/23/2018 10:46 AM VEHICLE TECHNICIAN Body Mass Index 30.61 11/23/2018 10:46 AM VEHICLE TECHNICIAN documented in this encounter Progress Notes * Jennifer Waters MD - 11/23/2018 11:23 AM CST Mirtha HARTLEY 1965 11/23/2018 Status post bilateral mastectomy and bilateral SNBx 05/16/2018 Status post revision of bilateral mastectomy incisions on 06/08/2018 for wound dehiscence and necrosis Pathology= Right= LCIS, pleimorphic LCIS. Margins neg. 2 slns neg Left= FCC. 1 sln neg She presented with lobular carcinoma in situ right breast with possible ductal carcinoma in situ diagnosed on needle core biopsy December 2017, following abnormal screening mammogram. She is 2, para 3. She was 13 at menarche and 25 at first live . There is a paternal great grandmother hadbreast cancer. 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 She is . She drinks rarely and is a 35 year pack smoker. She noticed the swelling on and off in the lateral aspects of both mastectomy incisions Otherwise 10 point review of systems shows no abnormalities Past Medical History: Diagnosis Date ??? Asthma ??? CAD (coronary artery disease) ??? GERD (gastroesophageal reflux disease) ??? Hyperlipidemia ??? Lobular carcinoma in situ (LCIS) of right breast 12/26/2017 [facility] ??? Post-operative nausea and vomiting Past Surgical History: Procedure Laterality Date ??? BIOPSY BREAST Right 12/2017 ??? HX BUNIONECTOMY 2017 ??? HX ENDOSCOPIC EXTRALARYNGEAL VOCAL CORD LATERALIZATION W/ MLB 2013 ??? HX GALLBLADDER SURGERY 1997 ??? AL BIOPSY/EXCISION, LYMPH NODE(S) Bilateral 05/16/2018 RIght and left SENTINEL LYMPH NODE BIOPSY BLUE DYE ONLY performed by Jennifer Waters MD at [facility] OR [facility] ??? AL BREAST SURGERY PROCEDURE UNLISTED Bilateral 06/08/2018 BREAST INCISION AND DRAINAGE--ACTUAL DEBRIDEMENT AND REVISION OF BILATERAL MASTECTOMY, DRAIN PLACEMENT performed by Jennifer Waters MD at [facility] OR ??? AL MASTECTOMY, SIMPLE, COMPLETE Bilateral 05/16/2018 RIght and Left prophylactic MASTECTOMY TOTAL performed by Jennifer Waters MD at [facility] Allergies Allergen Reactions ??? Iodine Itching ??? Adhesive Rash ??? Codeine Nausea and Vomiting BP 130/79 Pulse 89 Ht 5' 1 (1.549 m) Wt 73.5 kg (162 lb) ? No BMI 30.61 kg/m?? Constitutional: She is oriented to person, place, and time and well-developed, well-nourished, and in no distress. No distress. HENT: Head: Normocephalic and atraumatic. Eyes: Pupils are equal, round, and reactive to light. Right eye exhibits no discharge. Left eye exhibits no discharge. Neck: Normal range of motion. Neck supple. No JVD present. No tracheal deviation present. No thyromegaly present. Abdominal: Soft. She exhibits no distension and no mass. There is no tenderness. Lymphadenopathy: She has no cervical adenopathy. Vitals reviewed. Breast- s/p bilateral mastectomy The bilateral chest wall incisions are healing very nicely. There is a small pocket of seroma versus hematoma mid to lateral aspect She has redundant skin in bilateral axillary areas No breast Imaging IMPRESSION/PLAN: 53 y.o. woman s/p bilateral mastectomy 05/2018 I have personally examined her and note a small palpable mass at the mid to lateral aspect of the mastectomy incisions This is most likely a small pocket of seroma or hematoma and she is agreeable to attempt aspirationtoday Procedure note: Verbal informed consent is obtained from her. The scanning of the lateral mastectomy is injected with normal saline Then using an 18-gauge needle the area is probed yielding 3 cc of bloody fluid She tolerated the procedure well I have recommended warm compresses to liquefy the hematoma I also recommended that she continue to check herself regularly and let me know if any changes If she continues to be concerned about the redundant skin bilateral axillary aspects of recommendedrevision with removal of excess skin Otherwise I will see her back in 1 year for follow-up The patient is asked to make an attempt to improve diet and exercise patterns to aid in breast cancer risk reduction. All of her questions were answered today and they to her satisfaction TOBACCO COUNSELING She was counseled to discontinue tobacco use. 15 minutes was spent in face to face with the patient Jennifer Waters MD FACS CLE TECHNICIAN documented in this encounter Procedure Notes * Jennifer Waters MD - 11/23/2018 11:31 AM CSTAssociated Order(s): FINE NEEDLE ASPIR WITHOUT IMAGING Procedure(s): AL FINE NEEDLE ASPIRATION BX W/O IMG GDN 1ST LESION Pre-Procedure Diagnose(s): Lobular carcinoma in situ (LCIS) of right breast; S/P bilateral mastectomy; Chewing tobacco nicotine dependence, uncomplicated See progress note for procedure note CLE TECHNICIAN documented in this encounter Plan of Treatment Not on file documented as of this encounter Procedures Procedure Name Priority Date/Time Associated Diagnosis Comments AL FINE NEEDLE ASPIRATION BX W/O IMG GDN 1ST LESION Routine 11/23/2018 11:31 AM VEHICLE TECHNICIAN Lobular carcinoma in situ (LCIS) of right breast S/P bilateral mastectomy Chewing tobacco dependence documented in this encounter Results * AL FINE NEEDLE ASPIRATION BX W/O IMG GDN 1ST LESION (11/23/2018 11:31 AM VEHICLE TECHNICIAN) Narrative [facility] - 11/23/2018 11:31 AM VEHICLE TECHNICIAN Jennifer Waters MD ? 11/23/2018 11:32 AM See progress note for procedure note Jennifer Waters MD PROCEDURE/MINOR SURG ICAL ORDERABLES [facility] documented in this encounter Visit Diagnoses Diagnosis Lobular carcinoma in situ (LCIS) of right breast- Primary S/P bilateral mastectomy Acquired absence of breast and nipple Chewing tobacco dependence Tobacco use disorder documented in this encounter Care Teams Belt Back Operator Relationship Specialty Start Date End Date Emerson Allen MD [address] [place] [phone] PCP - General Family Practice 04/27/18 documented as of this encounter
--- OUTSIDE RECORDS SUMMARY | 2024-10-13 04:22 | XMS_ITS | Encounter Summary ---
Author Organization [facility] Address [address] [place] [address] Care Team Providers Care Asbestos Shingle Inspector Name Role Phone Emerson Allen MD Primary Care Provider Reason for Visit * Reason Comments Post-op Visit 4 day check Encounter Details Date Type Department Care Team (Late st Contact Info) Description 06/22/2018 9:20 AM CDT Office Visit [facility] BREAST SURGERY - [place] [facility] [address] [facility] [address] [place] [address] Jennifer Waters MD [address] [place] [address] Lobular carcinoma in situ (LCIS) of right breast (Primary Dx); S/P bilateral mastectomy Social History Tobacco Use Types Packs/Day Years [...] Reading Time Taken Comments Blood Pressure 118/74 06/22/2018 9:26 AM CDT Pulse - - Temperature - - Respiratory Rate - - Oxygen Saturation - - Inhaled Oxygen Concentration - - Weight 69.4 kg (153 lb) 06/22/2018 9:26 AM CDT Height 154.9 cm (5' 1 ) 06/22/2018 9:26 AM CDT Body Mass Index 28.91 06/22/2018 9:26 AM CDT documented in this encounter Progress Notes * Jennifer Waters MD - 06/22/2018 9:42 AM CDT Status post bilateral mastectomy and bilateral SNBx [...] hadbreast cancer. 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 She is . She drinks rarely and is a 35 year pack smoker. BP 118/74 Ht 5' 1 (1.549 m) Wt 69.4 kg (153 lb) BMI 28.91 kg/m?? The bilateral chest wall incisions are healing very nicely. The drain output is clear and less than 30 cc the past 7 days. The nylon sutures remain intact with no cellulitis along the wound edge The range of motion is excellent I removed the drain today and every other suture I will see her back next week to remove remaining sutures The patient is asked to make an attempt to improve diet and exercise patterns to aid in breast cancer risk reduction. Jennifer Waters MD FACS documented in this encounter Plan of Treatment Not on file documented as of this encounter Visit Diagnoses Diagnosis Lobular carcinoma in situ (LCIS) of right breast- Primary S/P bilateral mastectomy Acquired absence of breast and nipple documented in this encounter Care Teams Asbestos Shingle Inspector Relationship Specialty Start Date End Date Emerson Allen MD [address] [place] [phone] PCP - General Family Practice 04/27/18 documented as of this encounter
--- OUTSIDE RECORDS SUMMARY | 2024-10-13 04:22 | XMS_ITS | Encounter Summary ---
Author Organization [facility] Address [address] [place] [address] Care Team Providers Care Lime Boiler Name Role Phone Emerson Allen MD Primary Care Provider Reason for Visit * Reason Comments Post-op Visit Encounter Details Date Type Department Care Team (Late st Contact Info) Description 06/29/2018 9:45 AM CDT Office Visit [facility] [address] [facility] [address] [place] [address] [place] [address] [place] [phone] Lobular carcinoma in situ (LCIS) of [...] Sign Reading Time Taken Comments Blood Pressure 124/80 06/29/2018 9:47 AM CDT Pulse - - Temperature - - Respiratory Rate - - Oxygen Saturation - - Inhaled Oxygen Concentration - - Weight 69.4 kg (153 lb) 06/29/2018 9:47 AM CDT Height 154.9 cm (5' 1 ) 06/29/2018 9:47 AM CDT Body Mass Index 28.91 06/29/2018 9:47 AM CDT documented in this encounter Progress Notes * Jennifer Waters MD - 06/29/2018 11:33 AM CDT Status post bilateral mastectomy and [...] hadbreast cancer. 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 She is . She drinks rarely and is a 35 year pack smoker. BP 124/80 Ht 5' 1 (1.549 m) Wt 69.4 kg (153 lb) BMI 28.91 kg/m?? The bilateral chest wall incisions are healing very nicely. The nylon sutures are all removed today The range of motion is excellent I will see her back in 6 months The patient is asked to make an attempt to improve diet and exercise patterns to aid in breast cancer risk reduction. Jennifer Waters MD FACS * Ashia Delaney RN - 06/29/2018 9:54 AM CDT Patient come sin today for f/u on bilateral mastectomy. Sutures removed today. No drainage or erythema. PT ordered. Dr Waters saw patient and evaluated. documented in this encounter Plan of Treatment Not on file documented as of this encounter Visit Diagnoses Diagnosis Lobular carcinoma in situ (LCIS) of right breast- Primary S/P bilateral mastectomy Acquired absence of breast and nipple documented in this encounter Care Teams Lime Boiler Relationship Specialty Start Date End Date Emerson Allen MD [address] [place] [phone] PCP - General Family Practice 04/27/18 documented as of this encounter
--- OUTSIDE RECORDS SUMMARY | 2024-10-13 04:22 | XMS_ITS | Encounter Summary ---
Author Organization [facility] Address [address] [place] [address] Care Team Providers Care Burn Table Operator Name Role Phone Emerson Allen MD Primary Care Provider Reason for Visit * Reason Comments Breast Mass right were the scar is located Encounter Details Date Type Department Care Team (Late st Contact Info) Description 04/01/2019 11:30 AM CDT Office Visit [facility] BREAST SURGERY - [place] [facility] [address] [facility] [address] [place] [address] Jennifer Waters MD [address] [place] [address] S/P bilateral mastectomy (Primary Dx); Hematoma (nontraumatic) of breast Social History Tobacco Use Types Packs/Day Years [...] Pressure 130/74 04/01/2019 11:37 AM CDT Pulse - - Temperature - - Respiratory Rate - - Oxygen Saturation - - Inhaled Oxygen Concentration - - Weight 71.1 kg (156 lb 12.8 oz) 019 11:37 AM CDT Height 154.9 cm (5' 1 ) 04/01/2019 11:3 7 AM CDT Body Mass Index 29.63 04/01/2019 11:37 AM CDT documented in this encounter Progress Notes * Jennifer Waters MD - 04/01/2019 11:41 AM CDT Mirtha HARTLEY 1965 04/01/2019 Status post bilateral mastectomy and bilateral SNBx [...] hadbreast cancer. 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 She is . She drinks rarely and is a 35 year pack smoker. She noticed the swelling on lateral aspects of the right mastectomy incision Otherwise 10 point review of systems shows no abnormalities Past Medical History: Diagnosis Date ??? Asthma ??? CAD (coronary artery disease) ??? GERD (gastroesophageal reflux disease) ??? Hyperlipidemia ??? Lobular carcinoma in situ (LCIS) of right breast 12/26/2017 [facility] ??? Post-operative nausea and vomiting Past Surgical History: Procedure Laterality Date ??? BIOPSY BREAST Right 12/2017 ??? HX BUNIONECTOMY 2017 ??? HX ENDOSCOPIC EXTRALARYNGEAL VOCAL CORD LATERALIZATION W/ MLB 2013 ??? HX GALLBLADDER SURGERY 1997 ??? AK BIOPSY/EXCISION, LYMPH NODE(S) Bilateral 05/16/2018 RIght and left SENTINEL LYMPH NODE BIOPSY BLUE DYE ONLY performed by Jennifer Waters MD at [facility] ??? AK BREAST SURGERY PROCEDURE UNLISTED Bilateral 06/08/2018 BREAST INCISION AND DRAINAGE--ACTUAL DEBRIDEMENT AND REVISION OF BILATERAL MASTECTOMY, DRAIN PLACEMENT performed by Jennifer Waters MD at [facility] OR ??? AK MASTECTOMY, SIMPLE, COMPLETE Bilateral 05/16/2018 RIght and Left prophylactic MASTECTOMY TOTAL performed by Jennifer Waters MD at [facility] OR [facility] Allergies Allergen Reactions ??? Iodine Itching ??? Adhesive Rash ??? Codeine Nausea and Vomiting BP 130/74 Ht 5' 1 (1.549 m) Wt 71.1 kg (156 lb 12.8 oz) ? No BMI 29.63 kg/m?? Constitutional: She is oriented to person, place, and time and well-developed, well-nourished, and in no distress. No distress. Head: Normocephalic and atraumatic. Eyes: Pupils are [...] a small pocket of seroma versus hematoma lateral aspect of the right mastectomy incision She has redundant skin in bilateral axillary areas No breast Imaging IMPRESSION/PLAN: 53 y.o. woman s/p bilateral mastectomy 05/2018 I have personally examined her and note a small palpable mass at lateral aspect of the right mastectomy incision This is most likely a small pocket of seroma or hematoma and she is agreeable to attempt aspirationtoday Procedure note: Verbal informed consent is obtained from her. The skin of the lateral aspect of the right mastectomy is injected with normal saline Then [...] Otherwise I will see her back in November 2018 for follow-up The patient is asked to make an attempt to improve diet and exercise patterns to aid in breast cancer risk reduction. All of her questions were answered today and they to her satisfaction TOBACCO COUNSELING She was counseled to discontinue tobacco use. 15 minutes was spent in face to face with the patient Jennifer Waters MD FACS documented in this encounter Procedure Notes * Jennifer Waters MD - 04/01/2019 12:36 PM CDTAssociated Order(s): FINE NEEDLE ASPIR WITHOUT IMAGING Procedure(s): AK FINE NEEDLE ASPIRATION BX W/O IMG GDN 1ST LESION Pre-Procedure Diagnose(s): S/P bilateral mastectomy; Hematoma (nontraumatic) of breast See procedure note within today's progress note report documented in this encounter Plan of Treatment Not on file documented as of this encounter Procedures Procedure Name Priority Date/Time Associated Diagnosis Comments AK FINE NEEDLE ASPIRATION BX W/O IMG GDN 1ST LESION Routine 04/01/2019 12:36 PM CDT S/P bilateral mastectomy Hematoma (nontraumatic) of breast documented in this encounter Results * AK FINE NEEDLE ASPIRATION BX W/O IMG GDN 1ST LESION (04/01/2019 12:36 PM CDT) Narrative [facility] - 04/01/2019 12:36 PM CDT Jennifer Waters MD ? 04/01/2019 12:37 PM See procedure note within today's progress note report Jennifer Waters MD PROCEDURE/MINOR SURG ICAL ORDERABLES [facility] documented in this encounter Visit Diagnoses Diagnosis S/P bilateral mastectomy- Primary Acquired absence of breast and nipple Hematoma (nontraumatic) of breast Other specified disorders of breast documented in this encounter Care Teams Burn Table Operator Relationship Specialty Start Date End Date Emerson Allen MD [address] [place] [phone] PCP - General Family Practice 04/27/18 documented as of this encounter
--- OUTSIDE RECORDS SUMMARY | 2024-10-13 04:23 | XMS_ITS | Encounter Summary ---
Author Organization [facility] Address [address] [place] [address] Care Team Providers Care Lead C Developer Name Role Phone Emerson Allen MD Primary Care Provider Encounter Details Date Type Department Care Team (Late st Contact Info) Description 06/21/2007 Outpatient Historical [facility] Blood Flow [address] [place] [phone] Adrian Cristobal MD NO ADDRESS ON FILE Social History Tobacco Use Types Packs/Day Years Used Date Smoking Tobacco: Never Assessed Sex and Gender Information Value Date Recorded Sex Assigned at Not on file Gender Identity Not on file Sexual Orientation Not on file documented as of this encounter Plan of Treatment Not on file documented as of this encounter Visit Diagnoses Not on filedocumented in this encounter Care Teams Lead C Developer Relationship Specialty Start Date End Date Emerson Allen MD [address] [place] [phone] PCP - General Family Practice 04/27/18 documented as of this encounter
--- OUTSIDE RECORDS SUMMARY | 2024-10-13 04:23 | XMS_ITS | Encounter Summary ---
Author Organization [facility] Address [address] [place] [address] Care Team Providers Care Gravity Prospecting Supervisor Name Role Phone Emerson Allen MD Primary Care Provider Encounter Details Date Type Department Care Team (Late st Contact Info) Description 05/30/2006 Outpatient Historical [facility] Basilio Matthew MD [address] [facility] [address] [place] [address] Social History Tobacco Use Types Packs/Day Years Used Date Smoking Tobacco: Never Assessed Sex and Gender Information Value Date Recorded Sex Assigned at Not on file Gender Identity Not on file Sexual Orientation Not on file documented as of this encounter Plan of Treatment Not on file documented as of this encounter Visit Diagnoses Not on filedocumented in this encounter Care Teams Gravity Prospecting Supervisor Relationship Specialty Start Date End Date Emerson Allen MD [address] [place] [address] [place] [phone] PCP - General Family Practice 04/27/18 documented as of this encounter
--- OUTSIDE RECORDS SUMMARY | 2024-10-13 04:23 | XMS_ITS | Encounter Summary ---
Author Organization [employer] Address [address] [place] [address] Care Team Providers Care Engineering Manager Name Role Phone Emerson Allen MD Primary Care Provider Encounter Details Date Type Department Care Team (Latest Contact Info) Description 09/21/2005 Outpatient Historical [facility] Basilio Matthew MD [address] [facility] [address] [place] [address] PERIPH VASCULAR DIS NOS (Primary Dx) Social History Tobacco Use Types Packs/Day Years Used Date Smoking Tobacco: Never Assessed Sex and Gender Information Value Date Recorded Sex Assigned at Not on file Gender Identity Not on file Sexual Orientation Not on file documented as of this encounter Plan of Treatment Not on file documented as of this encounter Visit Diagnoses Diagnosis Peripheral vascular disease, unspecified- Primary documented in this encounter Care Teams Engineering Manager Relationship Specialty Start Date End Date Emerson Allen MD [address] [place] [phone] PCP - General Family Practice 04/27/18 documented as of this encounter
--- OUTSIDE RECORDS SUMMARY | 2024-10-13 04:23 | XMS_ITS | Encounter Summary ---
Author Organization [facility] Address [address] [place] [address] Care Team Providers Care Customer Energy Specialist Name Role Phone Emerson Allen MD Primary Care Provider Encounter Details Date Type Department Care Team (Latest Contact Info) Description 02/09/2006 Outpatient Historical [facility] Basilio Matthew MD [address] [facility] [address] [place] [address] Unspecified Peripheral Vascular Disease (Primary Dx) Social History Tobacco Use Types [...] Primary documented in this encounter Care Teams Customer Energy Specialist Relationship Specialty Start Date End Date Emerson Allen MD [address] [place] [phone] PCP - General Family Practice 04/27/18 documented as of this encounter
--- OUTSIDE RECORDS SUMMARY | 2024-10-13 04:23 | XMS_ITS | Encounter Summary ---
Author Organization [employer] Address [address] [place] [address] Care Team Providers Care Host/Hostess Restaurant Name Role Phone Emerson Allen MD Primary Care Provider Encounter Details Date Type Department Care Team (Latest Contact Info) Description 06/30/2006 Outpatient Historical [facility] Basilio Matthew MD [address] [facility] [address] [place] [address] Unspecified Peripheral [...] Primary documented in this encounter Care Teams Host/Hostess Restaurant Relationship Specialty Start Date End Date Emerson Allen MD [address] [place] [phone] PCP - General Family Practice 04/27/18 documented as of this encounter
--- OUTSIDE RECORDS SUMMARY | 2024-10-13 04:23 | XMS_ITS | Encounter Summary ---
Author Organization [facility] Address [address] [place] [address] Care Team Providers Care Residential Plumber Name Role Phone Unavailable Primary Care Provider Unavailabl e Encounter Details Date Type Department Care Team (Late st Contact Info) Description 02/10/2015 Abstract [facility] Automatic Oven Operator [facility] [address] [facility] [address] [place] [address] Basilio Matthew MD [address] [facility] [address] [place] [address] Social History Tobacco Use Types Packs/Day [...]
--- OUTSIDE RECORDS SUMMARY | 2024-10-13 04:23 | XMS_ITS | Encounter Summary ---
Author Organization [facility] Address [address] [place] [address] Care Team Providers Care Rattling Machine Tender Name Role Phone Emerson Allen MD Primary Care Provider Reason for Visit * Auth/Cert Specialty Diagnoses / Procedures Referred By Contmanuela t Referred To Contact General Surgery Diagnoses Lobular carcinoma in situ of right breast Right breast, lobular carcinoma in situ Procedures DC MASTECTOMY, SIMPLE, COMPLETE DC BX/REMV,LYMPH NODE,DEEP AXILL DC INTRAOPERATIVE SENTINEL LYMPH NODE ID W DYE INJECTION CHG LYMPHATICS & LYMPH GLANDS IMAGING RIght and Left prophylactic MASTECTOMY TOTAL RIght and left SENTINEL LYMPH NODE BIOPSY w/nuc med@ [facility] Or [address] [place] [address] Referral ID Status Reason Start Date Expiration Date Visits Re quested Visits Authorized [id number] 1 1 Encounter Details Date Type Department Care Team (Late st Contact Info) Description 05/16/2018 11:16 AM CDT Anesthesia Event [facility] Operating Room [address] [place] [address] Darline Umana MD [address] [place] [address] Anesthesia Record Procedure Summary Procedure Name Responsible Anesthesiologist Anesthesia Start Time Anesthesia Stop Time RIght and Left prophylactic MASTECTOMY TOTAL (Bilateral: Breast) Darline Umana MD 05/16/18 1116 05/16/18 1403 Events Date Time Event Comment 05/16/2018 1049 1116 AN Equip Check Anesthesia eq uipment and materials checked in accordance with local policy. 1116 An Start 1116 An Start Data 1120 Pre-Induction Immediate pre- induction anesthetic assessment performed. Vital signs as noted on graphic. 1120 An Induction 1123 An Intubation 1125 Anesthesia Ready 1353 An Extubation Emergence unev entful Awake, spontaneous respirations. Adequate muscle strength demonstrated Adequate tidal volume. Orapharynx suctioned. Extubated with positive pressure ventilation. 1356 an stop data 1403 An Stop 05/17/2018 0834 Follow-up Complete Meds Name Total midazolam PF (VERSED) 1 mg/mL injection 2 mg fentaNYL (SUBLIMAZE) PF 50??mcg/mL injec tion 100 mcg lidocaine (XYLOCAINE) 2% syringe 4.5 mL propofol (DIPRIVAN) 10??mg/mL injection 250 mg propofol (DIPRIVAN) 10??mg/mL injection 304.43 mg rocuronium (ZEMURON) 10 mg/mL 5 mL injec tion 30 mg ceFAZolin in sterile water ( ANCEF) 2 gram/20 mL IV Syringe (PREMIX) 2,000 mg 2,000 mg dexamethasone (DECADRON) 4 mg/mL injecti on 10 mg diphenhydrAMINE (BENADRYL) 50 mg/mL inje ction 12.5 mg ondansetron (ZOFRAN) 4??mg/2 mL injectio n 4 mg neostigmine (PROSTIGMINE) 4 mg/4 mL (1 m g/mL) injection 2 mg HYDROmorphone PF (DILAUDID) 2 mg/mL inje ction 1 mg labetalol (NORMODYNE;TRANDATE) 5??mg/mL injection 10 mg glycopyrrolate (ROBINUL) 0.4 mg/2 mL (0. 2 mg/mL) syringe 0.4 mg lactated ringers infusion 1,700 mL * Agents Name Air Sevoflurane % Desflurane % Sevoflurane Desflurane O2 N2O Inspired N2O O2 * Blood No blood administrations on file. Lines, Drains, and Airways Type Details Placement Removal Drain Present on Admission : No; Tube Number: #1; Orientation: Right:; Location: breast; Type: round; Size (Fr): 19 Fr 05/16/18 1223 by Pepper Mercer RN Drain Present on Admission : No; Tube Number: #2; Orientation: Left:; Location: breast; Type: round (Silicone Round Drain ); Size (Fr): 19 Fr 05/16/18 1242 by Denise You RN Peripheral IV Orientation: Anterio r, Left; Location: Wrist; Device: Angiocath; Gauge: 18 gauge; Needle Length: 1.25 in length; Insertion Attempts: 1; Patient Tolerance: tolerated well; Pain Prevention: (declined); Removal Indication: no longer indicated; Removal Interventions: direct pressure, catheter intact 05/16/18 0940 by Kristal Cox RN 05/17/18 1025 by Maggie Mata RN Endotracheal Airway Type: ETT; Cuff Pressure: minimal leak technique, minimal occluding volume, cuff inflated; Size: 7; Site: mouth; Attempts: 2 (Grade IIb view with MAC 3); FOV: I; cm: 22; Device: Straight Blade; Blade: 2; Secured: secured with tape; Cricoid: Yes; Verification: Auscultated bilateral breath sounds, Equal chest movement, Continuous waveform capnography 05/16/18 1123 by Chauncey Alberto, ANESTHESIOLOGY TECH 05/16/18 1353 by Chauncey Alberto, LINDA Adult Incision 05/16/18; 1325; surgical incision; Bilateral; breast; 05/17/18; 2257 05/16/18 1325 by Denise You RN 05/17/18 2257 by PROVIDER, DISCHARGE PATIENT documented in this encounter Social History Tobacco [...] of this encounter OR Notes * Anesthesia Post-Op Follow-up Note - Jerald Walton FNP - 05/17/2018 8:34 AM CDT 05/17/2018 8:34 AM Mirtha HARTLEY No apparent anesthesia related complications. CR [place] * Anesthesia Postprocedure Evaluation - Levi Rowland MD - 05/16/2018 2:30 PM CDT Phase I Postanesthesia Evaluation Including Modified Estelle Score Patient seen and evaluated: Modified Estelle Score: Score: 8 (05/16/181419) COMMENTS: No apparent Anesthesia related complications RESPIRATORY FUNCTION: Respiration: able to breath and cough freely (05/16/181419) [2=able to breathe and cough freely, 1=dyspnea, limited breathing or tachypnea, 0=apnea or mechanicventilator] O2 Saturation: needs O2 inhalation to maintain O2 saturation greater than 90% (05/16/181419) [2=able to maintain O2 saturation greater than 92% on room air, 1=needs O2 inhalation to maintain O2 saturation greater than 90%, 0=O2 saturation less than 90% even with O2 supplement] Resp: 20 (05/16/181419)SpO2: 98 % (05/16/181419) CARDIOVASCULAR FUNCTION: Heart Rate: 66 bpm (05/16/181419) BP: (!) 143/74 (05/16/181419) Circulation: BP within 20% of preanesthetic level (05/16/181419) [2=BP within 20% of preanesthetic level, 1=BP within 20-49% of preanesthetic level, 0=BP within 50%of preanesthetic level] MENTAL STATUS, NEURO, ACTIVITY: PATIENT PARTICIPATION IN EVALUATION:yes Consciousness: arousable on calling (05/16/181419) [2=fully awake, 1=arousable on calling, 0=not responding] Activity: able to move 4 extremities voluntarily or on command (05/16/181419) [2=able to move 4 extremities voluntarily or on command, 1=able to move 2 extremities voluntarily or on command, 0=unable to move extremities voluntarily or on command] TEMPERATURE: Temp: 36.3 ??C (05/16/18 1402) PAIN: NAUSEA AND VOMITING: no nausea and no vomiting POSTOPERATIVE HYDRATION: well hydrated Intake/Output Summary (Last 24 hours) at 05/16/18 1430 Last data filed at 05/16/18 1400 Gross per 24 hour Intake 1700 ml Output 100 ml Net 1600 ml Levi Rowland MD 05/16/2018 2:30 PM * Anesthesia Handoff - Chauncey Alberto CRNA - 05/16/2018 2:03 PM CDT Post-Anesthetic transfer of care report elements to appropriate post-anesthesia recovery environment completed in accordance with procedure. I completed my handoff to the receiving nurse during which we: 1. Identified the patient 2. Identified the responsible provider 3. Reviewed the pertinent medical history 4. Discussed the surgical course 5. Reviewed intra-op anesthesia management and issues during anesthesia 6. Set expectations for post-procedure period 7. Allowed opportunity for questions and acknowledgement of understanding. Vital Signs: BP 136/55 HR 76 Resp 16 SpO2 99% Temp 97.3 F 2:03 PM Chauncey Alberto CRNA * Anesthesia Preprocedure Evaluation - Darline Umana MD - 05/16/2018 10:33 AM CDT Relevant Problems No relevant active problems Anesthesia Evaluation Patient summary reviewed and Nursing notes reviewed Airway Mallampati: II TM distance: >3 FB Neck ROM: full Dental - normal exam Pulmonary - normal exam breath sounds clear to auscultation (+) asthma, ROS comment: Tobacco use 35 years/0.5ppd attempts to quit in past Cardiovascular - normal exam Exercise tolerance: good ECG reviewed Rhythm: regular Rate: normal ROS comment: Patient denies history noted of coronary stents. States she has them in her groin area. Dr. Matthew note from about 2008 shows follow up note for PVD and iliac stents. Denies IA, CP Neuro/Psych (+) headaches, Comments: Had a migraine with some nausea earlier today in preop. Resolved with imitrex and zofran. GI/Hepatic/Renal (+) GERD well controlled, Endo/Other Comments: LCIS right breast here for above procedure Abdominal Anesthesia History History of PONV.No history of anesthetic complications, no history of difficult intubation, no history of malignant hyperthermia and no pseudocholinesterase deficiency. Comments: Had some N/V with one foot surgery, but not the other within this past year in [place]. . Anesthesia Plan ASA 3 General (Multimodal PONV prophylaxis) Intravenous induction Oral ETT airway maintenance NPO status > 8 hours Anesthetic plan and risks discussed with Patient. Use of blood products: consented to blood products. Plan discussed with Anesthesiologist. Post-op Pain Control Plan to use IV or IM medication for post-op pain control. Plan for postoperative opioid use Smoking Compliance Patient did not smoke on day of surgery documented in this encounter Miscellaneous Notes * Addendum Note - Jerald Walton FNP - 05/17/2018 8:34 AM CDT Addendum created 05/17/18833 by Jerald Walton FNP Anesthesia Event edited, Sign clinical note documented in this encounter Plan of Treatment Not on file documented as of this encounter Visit Diagnoses Not on filedocumented in this encounter Administered Medications Inactive Administered Medications - up to 3 most recent administrations Medication Order MAR Action Action Date Dose Rate Site ceFAZolin in sterile water (ANCEF) 2 gram/20 mL IV Syringe (PREMIX) 2,000 mg 2,000 mg, IV, PRE-PROCEDURE ONCE, 1 dose, Starting on Mon05/16/18 at 0909, Until Mon05/16/18 at 1137, Routine, Pre-op, Antibiotic Indication: Surgical prophylaxis Given 05/16/2018 11:32 AM CDT 2,000 mg dexamethasone (DECADRON) injection INTRA-PROCEDURE PRN, Starting on Mon05/16/18 at 1135, Until Mon05/16/18 at 1403, Routine, Anesthesia Intra-op Given 05/16/2018 11:35 AM CDT 10 mg diphenhydrAMINE (BENADRYL) injection INTRA-PROCEDURE PRN, Starting on Mon05/16/18 at 1135, Until Mon05/16/18 at 1403, Routine, Anesthesia Intra-op Given 05/16/2018 11:35 AM CDT 12.5 mg fentaNYL PF (SUBLIMAZE) 50 mcg/mL injection INTRA-PROCEDURE PRN, Starting on Mon05/16/18 at 1120, Until Mon05/16/18 at 1403, Pain (See admin instructions), Routine, Anesthesia Intra-op Given 05/16/2018 11:27 AM CDT 50 mcg Given 05/16/2018 11:20 AM CDT 50 mcg glycopyrrolate (ROBINUL) injection INTRA-PROCEDURE PRN, Starting on Mon05/16/18 at 1327, Until Mon05/16/18 at 1403, Routine, Anesthesia Intra-op Given 05/16/2018 1:27 PM CDT 0.4 mg HYDROmorphone (PF) (DILAUDID) injection INTRA-PROCEDURE PRN, Starting on Mon05/16/18 at 1144, Until Mon05/16/18 at 1403, Pain (See admin instructions), Routine, Anesthesia Intra-op Given 05/16/2018 11:44 AM CDT 1 mg labetalol (NORMODYNE;TRANDATE) 5 mg/mL injection INTRA-PROCEDURE PRN, Starting on Mon05/16/18 at 1257, Until Mon05/16/18 at 1403, Blood Pressure, Routine, Anesthesia Intra-op Given 05/16/2018 12:57 PM CDT 10 mg lactated Ringers solution INTRA-PROCEDURE CONTINUOUS PRN, Starting on Mon05/16/18 at 1000, Until Mon05/16/18 at 1403, Routine, Anesthesia Intra-op New Bag 05/16/2018 11:16 AM CDT New Bag 05/16/2018 10:00 AM CDT lidocaine (XYLOCAINE) 60 mg/3 mL (2 %) syringe INTRA-PROCEDURE PRN, Starting on Mon05/16/18 at 1120, Until Mon05/16/18 at 1403, Routine, Anesthesia Intra-op Given 05/16/2018 11:20 AM CDT 4.5 mL midazolam (PF) (VERSED) injection INTRA-PROCEDURE PRN, Starting on Mon05/16/18 at 1116, Until Mon05/16/18 at 1403, Routine, Anesthesia Intra-op Given 05/16/2018 11:16 AM CDT 2 mg neostigmine (PROSTIGMINE) 4 mg/4 mL (1 mg/mL) injection INTRA-PROCEDURE PRN, Starting on Mon05/16/18 at 1327, Until Mon05/16/18 at 1403, Routine, Anesthesia Intra-op Given 05/16/2018 1:27 PM CDT 2 mg ondansetron (ZOFRAN) 4 mg/2 mL injection INTRA-PROCEDURE PRN, Starting on Mon05/16/18 at 1329, Until Mon05/16/18 at 1403, Nausea/Emesis, Routine, Anesthesia Intra-op Given 05/16/2018 1:29 PM CDT 4 mg propofol (DIPRIVAN) injection INTRA-PROCEDURE CONTINUOUS PRN, Starting on Mon05/16/18 at 1130, Until Mon05/16/18 at 1403, Anesthesia Intra-op Rate Change 05/16/2018 1:09 PM CDT 25 mcg/kg/min 11.07 mL/hr Rate Change 05/16/2018 12:15 PM CDT 50 mcg/kg/min 22.14 mL /hr New Bag 05/16/2018 11:30 AM CDT 25 mcg/kg/min 11.07 mL/ hr propofol (DIPRIVAN) injection INTRA-PROCEDURE PRN, Starting on Mon05/16/18 at 1120, Until Mon05/16/18 at 1403, Anesthesia Intra-op Given 05/16/2018 12:15 PM CDT 50 mg Given 05/16/2018 11:44 AM CDT 50 mg Given 05/16/2018 11:20 AM CDT 150 mg rocuronium (ZEMURON) injection INTRA-PROCEDURE PRN, Starting on Mon05/16/18 at 1120, Until Mon05/16/18 at 1403, Routine, Anesthesia Intra-op Given 05/16/2018 11:20 AM CDT 30 mg documented in this encounter Care Teams Rattling Machine Tender Relationship Specialty Start Date End Date Emerson Allen MD [address] [place] [phone] PCP - General Family Practice 04/27/18 documented as of this encounter
--- OUTSIDE RECORDS SUMMARY | 2024-10-13 04:23 | XMS_ITS | Encounter Summary ---
Author Organization [facility] Address [address] [place] [address] Care Team Providers Care Clamp Forklift Operator Name Role Phone Emerson Allen MD Primary Care Provider Encounter Details Date Type Department Care Team (Late st Contact Info) Description 06/30/[address] [facility] Blood Flow [address] [place] [phone] Adrian Cristobal MD NO ADDRESS ON FILE [...] on filedocumented in this encounter Care Teams Clamp Forklift Operator Relationship Specialty Start Date End Date Emerson Allen MD [address] [place] [phone] PCP - General Family Practice 04/27/18 documented as of this encounter
--- OUTSIDE RECORDS SUMMARY | 2024-10-13 04:23 | XMS_ITS | Encounter Summary ---
Author Organization [facility] Address [address] [place] [address] Care Team Providers Care Seat Pack Inspector Name Role Phone Emerson Allen MD Primary Care Provider Encounter Details Date Type Department Care Team (Late st Contact Info) Description 12/21/2006 Outpatient Historical [facility] Supp Svcs Blood Flow [address] [place] [address] Basilio Matthew MD [address] [facility] [address] [place] [address] Social History Tobacco Use Types Packs/Day Years Used Date Smoking Tobacco: Never Assessed Sex and Gender Information Value Date Recorded Sex Assigned at Not on file Gender Identity Not on file Sexual Orientation Not on file documented as of this encounter Plan of Treatment Not on file documented as of this encounter Visit Diagnoses Not on filedocumented in this encounter Care Teams Seat Pack Inspector Relationship Specialty Start Date End Date Emerson Allen MD [address] [place] [address] [place] [phone] PCP - General Family Practice 04/27/18 documented as of this encounter
--- OUTSIDE RECORDS SUMMARY | 2024-10-13 04:23 | XMS_ITS | Encounter Summary ---
Author Organization [facility] Address [address] [place] [address] Care Team Providers Care Mosaic Technician Name Role Phone Emerson Allen MD Primary Care Provider Encounter Details Date Type Department Care Team (Latest Contact Info) Description 12/21/2006 Outpatient Historical [facility] Basilio Matthew MD [address] [facility] [address] [place] [address] Follow-Up Examination, Following Other Surgery (Primary Dx) Social History Tobacco Use Types Packs/Day Years Used Date Smoking Tobacco: Never Assessed Sex and Gender Information Value Date Recorded Sex Assigned at Not on file Gender Identity Not on file Sexual Orientation Not on file documented as of this encounter Plan of Treatment Not on file documented as of this encounter Visit Diagnoses Diagnosis Follow-up examination, following other surgery- Primary documented in this encounter Care Teams Mosaic Technician Relationship Specialty Start Date End Date Emerson Allen MD [address] [place] [address] [place] [phone] PCP - General Family Practice 04/27/18 documented as of this encounter
--- OUTSIDE RECORDS SUMMARY | 2024-10-13 04:23 | XMS_ITS | Encounter Summary ---
Author Organization [facility] Address [address] [place] [address] Care Team Providers Care Dispensing And Measuring Optician Name Role Phone Emerson Allen MD Primary Care Provider Reason for Visit * Reason Comments Post-op Visit Encounter Details Date Type Department Care Team (Latest Contact Info) Description 05/28/2018 11:00 AM CDT Clinical Support [facility] BREAST SURGERY - [place] C[facility] [address] [facility] [address] [place] [address] Lobular carcinoma in situ (LCIS) of right [...] - Inhaled Oxygen Concentration - - Weight 74.8 kg (165 lb) 05/28/2018 11:08 AM CDT Height 154.9 cm (5' 1 ) 05/28/2018 11:08 AM CDT Body Mass Index 31.18 05/28/2018 11:08 AM CDT documented in this encounter Progress Notes * Ashia Delaney RN - 05/28/2018 11:36 AM CDT Patient comes in today for drain removal from bilateral breast mastectomy sites. Incisions with eschar, no pain or erythema. Drains removed, each below 30 cc's qd x 3 + days. Rx for bras and prosthesis given. SHe has f/u with Dr Waters on 06/04/18. She will call with any conerns. documented in this encounter Plan of Treatment Not on file documented as of this encounter Visit Diagnoses Diagnosis Lobular carcinoma in situ (LCIS) of right breast- Primary S/P bilateral mastectomy Acquired absence of breast and nipple documented in this encounter Care Teams Dispensing And Measuring Optician Relationship Specialty Start Date End Date Emerson Allen MD [address] [place] [phone] PCP - General Family Practice 04/27/18 documented as of this encounter
--- OUTSIDE RECORDS SUMMARY | 2024-10-13 04:23 | XMS_ITS | Encounter Summary ---
Author Organization [facility] Address [address] [place] [address] Care Team Providers Care School Guard Name Role Phone Emerson Allen MD Primary Care Provider Reason for Visit * Auth/Cert Specialty Diagnoses / Procedures Referred By Denton t Referred To Contact General Surgery Diagnoses Lobular carcinoma in situ of right breast Right breast, lobular carcinoma in situ Procedures OK MASTECTOMY, SIMPLE, COMPLETE OK BX/REMV,LYMPH NODE,DEEP AXILL OK INTRAOPERATIVE SENTINEL LYMPH NODE ID W DYE INJECTION CHG LYMPHATICS & LYMPH GLANDS IMAGING RIght and Left prophylactic MASTECTOMY TOTAL RIght and left SENTINEL LYMPH NODE BIOPSY w/nuc med@ [facility] Or [address] [place] [address] Referral ID Status Reason Start Date Expiration Date Visits Re quested Visits Authorized [id number] 1 1 Encounter Details Date Type Department Care Team (Late st Contact Info) Description 05/16/2018 10:15 AM CDT - 05/16/2018 1:45 PM CDT Surgery [facility] Operating Room [address] [place] [address] Jennifer Waters MD [id number] [place] [id number] RIght and Left prophylactic MASTECTOMY TOTAL Surgery Details Date/Time Status Location OR Service Patient Class Case Class Case Type Trauma Case? 05/16/2018 10:15 AM Posted [facility] OR MAIN OR 03 General Surgery Surgical OP/Extended Care Elective No Panel 1 Procedure LRB Anes Op Region Wound Class Comments RIght and Left prophylactic MASTECTOMY TOTAL Bilateral General Breast Clean-I RIght and left SENTINEL LYMP H NODE BIOPSY BLUE DYE ONLY Bilateral General Breast Clean-I Surgeon Surgeon Role Service Panel Jennifer Waters MD Primary General Surgery 1 Case Notes ANTHEM--PP documented in this encounter Social History Tobacco [...] Sign Reading Time Taken Comments Blood Pressure 146/72 05/16/2018 8:49 AM CDT Pulse 72 05/16/2018 8:49 AM CDT Temperature 36.6 ??C (97.9 ??F) 05/16/2018 8:49 AM CD T Respiratory Rate 16 05/16/2018 8:49 AM CDT Oxygen Saturation 98% 05/16/2018 8:49 AM CDT Inhaled Oxygen Concentration - - Weight 73.8 kg (162 lb 12.8 oz) 05/16/2018 8:49 AM CDT Height 154.9 cm (5' 1 ) 05/16/2018 8:49 AM CDT Body Mass Index 30.76 05/16/2018 8:49 AM CDT documented in this encounter Discharge Instructions * Discharge Instructions* Jennifer Waters MD - 05/17/2018 7:54 AM CDT [facility] BREAST SURGERY [address] [place], [place] [id number] Post operative instructions: Activity: ___Walk around every 2-4 hours to prevent blood clots ___ No heavy lifting for one week ___ No driving while taking narcotics or while drain is in ___ Deep breathing 10x per hour if you had general anesthesia ___ No strenuous exercise for one week ___ Resume range of motion as tolerated (don???t force it) Medicines: ___ May resume pre op medications ___ Ask your surgeon when to resume aspirin and blood thinners ___ Tylenol is okay for mild pain ___ Prescriptions for narcotics will be given after surgery ___ Avoid alcoholic beverages, drive or make important decisions while taking pain medicines Diet: ___ Resume a regular diet as tolerated ___ Encourage fluids to avoid constipation Follow up Care: ___ Your doctors office will call within 3 days of surgery with pathology results and post operative appointments. ___ Results for sentinel lymph nodes will take up to 5 days ___ May call the office if you have not heard from us. Special Instructions: ___ May remove outer dressing tomorrow ___ Leave steri strips in place ___ May shower in 24 hours ___ May need to wear a bra for support ___ May use ice bag on incision for minor swelling and discomfort ___ Measure and record drain outputs 3x a day if you have a drain ___ Urine may be blue if you had a sentinel node biopsy. Don???t be alarmed (It will clear up in a day) ___ Call office or exchange if fever, redness, swelling, drainage PLEASE EMAIL IN 2 DAYS VIA MY [employer] -TO LET ME KNOW HOW YOU ARE DOING -TO LET ME KNOW IF YOU NEED REFILLS -ANY PROBLEMS OR QUESTIONS -TO LET ME KNOW DRAIN OUTPUTS If you have any questions, please call the office at between the hours of 9AM and 5PMMonday through Monday. After hours for emergencies, you may call this number to be connected to [employer] service. documented in this encounter Medications at Time of Discharge Medication Sig Dispensed Refills Start Date End Date albuterol HFA 90 mcg inhaler Take 2 Puffs by inhalation every 6 hours as needed for Shortness of Breath. atorvastatin (LIPITOR) 40 mg tablet Take 40 mg by mouth daily . 05/29/2017 coenzyme Q10 200 mg Capsule Take 200 mg by mouth daily . 12/07/2016 Lactobacillus acidophilus 10 billion cell Capsule Take 1 capsule by oral route every day 12/07/2016 loratadine (CLARITIN) 10 mg tablet Take 10 mg by mouth 1 time daily as needed . omeprazole (PriLOSEC) 40 mg Capsule, Delayed Release(E.C.) Take 40 mg by mouth daily . 3 04/04/2018 SUMAtriptan (IMITREX) 50 mg tablet TAKE 1 TABLET BY MOUTH EARLY POSSIBLE AFTER ONSET OF MIGRAINE. MAY REPEAT AFTER 2 HOURS IF HEADACHE RETURNS. 12/13/2017 oxyCODONE-acetaminophe n (PERCOCET) 5-325 mg tablet Take 1 Tablet by mouth every 6 hours as needed for Pain. Max Daily Amount: 4 Tablets 30 Tablet 05/17/2018 06/08/2018 fluticasone (FLONASE) 50 mcg/spray Laton, Suspension Administer 2 Sprays in each nostril 1 time daily as needed . 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 Margins neg. 2 slns neg Left= FCC. 1 sln neg Needs post op appointments * Maggie Mata RN - 05/17/2018 10:25 AM CDT Pt tolerating diet.Pain controlled with oral pain medications.Discharge instructions given.Pt instructed on drain care.Pt to call office to check when to restart Aspirin and Plavix. * Jennifer Waters MD - 05/17/2018 7:53 AM CDT POD#1 Awake, comfortable VSS, afebrile No complaints BP 117/56 (BP Location: Left leg) Pulse 61 Temp 98 ??F (36.7 ??C) (Temporal) Resp 16 Ht 5'1 (1.549 m) Wt 73.8 kg (162 lb 12.8 oz) SpO2 93% BMI 30.76 kg/m?? Right and Left chest I/C/D No eccymosis, no hematoma JPs ok- serosanguinous Right- 57cc, Left 22cc S/P bilateral mastectomy and bilateral SNBx Doing great!! Drain teaching Incentive spirometry and ambulation Plan D/C home today F/U with office [phone] Deshawn Waters MD * Danae Rubio RN - 05/16/2018 6:56 PM CDT Patient tolerating regular diet. Pain controlled with po pain med. No void yet. Sleeping off and on. documented in this encounter H&P Notes * Jennifer Waters MD - 05/16/2018 9:41 AM CDT I have reviewed the last H&P and examined the patient today and there are no changes. For bilateral prophylactic mastectomy and bilateral axillary SNBx with blue dye Source Note - Jennifer Waters MD - 05/15/2018 5:41 PM CDT Mirtha HARTLEY is a 53 y.o. female. She is referred by Dr Allen because of newly diagnosed lobularcarcinoma in situ right breast with possible ductal carcinoma in situ diagnosed on needle core biopsy December 2017, following abnormal screening mammogram. She had no complaints referable to her breasts. She denies prior breast surgeries or biopsies. She is 3, para 3. She was 13 at menarche and 25 at first live . There is a paternal great grandmother had breast cancer. 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 She is . She drinks rarely and is a 35 year pack smoker. She is here today with a previous patient of [facility]. ?? 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 Para Term AB Living ?? 3 2 ?? SAB TAB Ectopic Multiple Live Births ? Obstetric Comments ?? Age @ onset of menses:13 Age @ first live :25 ? PMH: Past??Medical??History Past Medical History: Diagnosis Date ??? Lobular carcinoma in situ (LCIS) [facility] right breast 12/26/2017 [facility] ?? PSH: Past??Surgical??History Past Surgical History: Procedure Laterality Date ??? BIOPSY BREAST Right 12/2017 ??? HX BUNIONECTOMY ?? 2018 ??? HX ENDOSCOPIC EXTRALARYNGEAL VOCAL CORD LATERALIZATION W/ MLB ?? 2014 ??? HX GALLBLADDER SURGERY ?? 1998 ??? HX HEART SURGERY ?? 2005 ?? 2006 and 2016 stent ?? ALLERGY: Allergies Allergen Reactions ??? Adhesive Rash ? Reaction: Rash, ??? Codeine Other (See Comments), Unknown and Nausea and Vomiting ? Other reaction(s): Unknown Other reaction(s): Nausea Only Reaction: Nausea, ?? MEDS: Current??Medications?? Current Outpatient Prescriptions Medication Sig Dispense Refill ??? atorvastatin (LIPITOR) 40 mg tablet ? clopidogrel (PLAVIX) 75 mg Tablet TK 1 T PO ONCE A DAY ?? 2 ??? coenzyme Q10 200 mg Capsule 200 mg. ? fluticasone (FLONASE) 50 mcg/spray Laton, Suspension 2 Sprays. ? Lactobacillus acidophilus 10 billion cell Capsule Take 1 capsule by oral route every day ? loratadine (CLARITIN) 10 mg tablet Take 10 mg by mouth. ? omeprazole (PriLOSEC) 40 mg Capsule, Delayed Release(E.C.) ? 3 ??? SUMAtriptan (IMITREX) 50 mg tablet TAKE 1 TABLET BY MOUTH EARLY POSSIBLE AFTER ONSET OF MIGRAINE. MAY REPEAT AFTER 2 HOURS IF HEADACHE RETURNS. ? No current facility-administered medications for this visit. ?? FHX: Family??History Family History Problem Relation Age of Onset ??? Throat Cancer Father 56 ??? Lung Cancer Father ? Breast Cancer Paternal Grandmother ? SOC: Social??History Social History ?? Social History ??? Marital status: ? Spouse name: N/A ??? Number of children: 2 ??? Years of education: N/A ?? Occupational History ??? Not on file. ?? Social History Main Topics ??? Smoking status: Former Smoker ? Packs/day: 1.00 ? Years: 35.00 ? Types: Cigarettes ??? Smokeless tobacco: Never Used ??? Alcohol use Yes ? Comment: rarely ??? Drug use: No ??? Sexual activity: Not on file ?? Other Topics Concern ??? Not on file ?? Social History Narrative ??? No narrative on file ?? ROS: Unremarkable Constitutional: Negative for fever, weight loss and malaise/fatigue. Respiratory: Negative for cough. Cardiovascular: Negative for chest pain and leg swelling. Gastrointestinal:. Negative for abdominal pain. Genitourinary: Negative for dysuria. Musculoskeletal: Negative for myalgias and joint pain. Skin: Negative for rash. Neurological: Negative for dizziness and headaches. Psychiatric/Behavioral: Negative for depression Endocrine: Negative for diabetes, negative for thyroid dysfunction Hematologic: Negative for anemia, bleeding disorders, HIV/AIDS ?? BP 132/84 Ht 5' 1 (1.549 m) Wt 74.8 kg (165 lb) ? No BMI 31.18 kg/m?? PHYSICAL EXAM: Physical Exam Constitutional: She is oriented to person, place, and time and well-developed, well-nourished, and in no distress. No distress. HENT: Head: Normocephalic and atraumatic. Eyes: Pupils are equal, round, and reactive to light. Right eye exhibits no discharge. Left eye exhibits no discharge. Neck: Normal range of motion. Neck supple. No JVD present. No tracheal deviation present. No thyromegaly present. Cardiovascular: Normal rate. Pulmonary/Chest: Effort normal and breath sounds normal. No respiratory distress. She has no wheezes. Abdominal: Soft. She exhibits no distension and no mass. There is no tenderness. Musculoskeletal: Normal range of motion. She exhibits no edema or deformity. Lymphadenopathy: She has no cervical adenopathy. Neurological: She is alert and oriented to person, place, and time. Gait normal. Skin: Skin is warm and dry. She is not diaphoretic. Psychiatric: Affect and judgment normal. Vitals reviewed. ?? Axilla-there is no axillary adenopathy Breasts -nipples are everted. There are no dominant masses Right breast:normal in appearance, no masses, skin changes or nipple discharge Left breast: normal in appearance, no masses, skin changes or nipple discharge ?? IMAGING: outside films are reviewed. Mammogram: December 18, 2017 and December 20, 2017. At [facility]. There is new asymmetric density outer right breast at mid depth and 1 cm area of indeterminate calcifications outer aspect at 9:00. Right breast ultrasound: December 20, 2017. At [facility]. There is a 1 cm cluster of subcentimeter cysts at 7:00 Right ultrasound-guided core biopsy outer mid: December 26, 2017. Lobular carcinoma in situ grade 2 concerning for DCIS Right ultrasound-guided core biopsy at 9:00: December 26, 2017. Lobular carcinoma in situ grade 2 concerning for DCIS Breast MRI: January 01, 2018. [facility]. There is a 2.6 cm biopsy site in the posterior upper outer right breast and a 2.4 cm biopsy site in the anterior upper outer right breast. There is a 6 mm area of enhancement in the upper outer right breast that has not been biopsied-mammogram and ultrasound in this area negative. And there is indeterminate enhancing areas in the left lower outer quadrant and lower inner quadrant for which second look ultrasound is recommended Left second look ultrasound: January 02, 2018. [facility]. Complex cystic masses are seen. 7mm at 4:00; 6 mm at 4:00; 5 mm at 5:00; 7 mm at 8:00 and 5 mm at 8:00. Tissue sampling is recommended for the 7mm lesion at 4:00 and 7 mm at 8:00. ?? IMPRESSION /PLAN: 53 y.o. 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 We spent 60 minutes in today???s discussion. I used drawings and illustrations and sent a printed brochure with them to reinforce the discussion. We talked about LCIS being a high risk lesion and not a breast cancer, and talked about possibilityof DCIS. ?? I explained that surgical excision after needle biopsy for this lesion was necessary to rule out associated DCIS or invasive breast cancer. I explained that there is increased subsequent development of breast cancer on either breast. I quoted them a 1% per year increased risk of developing breast cancer. We talked about preventative measures, including more frequent clinical exams, screening withMRI, annual mammogram, chemoprevention with Tamoxifen. We also talked about bilateral prophylactic mastectomy as part of risk reduction strategy. ?? Options include surgical excision of the 2 areas of LCIS on the right breast and the additional concerning area seen on MRI upper outer right breast She would also need needle core biopsy of 2 areas left breast upper outer quadrant and lower inner quadrant seen on breast MRI or surgical excision instead ?? If she does have DCIS, I told her she would need adjuvant radiation If she does have invasive cancer then she would need sentinel lymph node biopsy to evaluate her saman status ?? She is very much interested in bilateral prophylactic mastectomy. She is not interested in breast reconstruction She does not want 6 monthly follow-ups because of her busy lifestyle and the worry of needing more procedures in the future ?? General anesthesia would be used. I describe removing the breast tissue. During the mastectomy the nipple and areola would be removed with the breast tissue. Chest wall muscle would not be removed unless the tumor was attached to it. I would remove axillary sentinel lymph nodes using blue dye injection to locate the sentinel lymph nodes of interest. Care would be taken to minimize injury to the long thoracic nerve, thoracodorsal nerve and axillary vein. A drain tube would be needed. We talked about hospitalization, overnight. Benefits and risks of infection, bleeding, scarring, deformity, on swelling, nerve damage, need for additional procedures, and recurrence of the tumor in the breast, chest, or elsewhere. The pros and cons of breast reconstruction were discussed. I answered all questions posed patient expressed understanding. ?? As we have left it, we will proceed with bilateral prophylactic mastectomy without breast reconstruction I recommended sentinel lymph node biopsy with blue dye only bilaterally I described the surgery and what it would entail and she showed excellent understanding and willingness to proceed We will obtain preoperative chest x-ray EKG and blood tests More recommendations will follow final pathology results ?? More than 50% of today's office visit time was spent in [id number] discussion and coordination ofcare All of her questions are answered today to her satisfaction ?? Jennifer Waters MD FACS * Jennifer Waters MD - 05/15/2018 5:41 PM CDT Mirtha HARTLEY is a 53 y.o. female. She is referred by Dr Allen because of newly diagnosed lobularcarcinoma in situ right breast with possible ductal carcinoma in situ diagnosed on needle core biopsy December 2017, following abnormal screening mammogram. She had no complaints referable to her breasts. She denies prior breast surgeries or biopsies. She is 3, para 3. She was 13 at menarche and 25 at first live . There is a paternal great grandmother had breast cancer. 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 She is . She drinks rarely and is a 35 year pack smoker. She is here today with a previous patient of [facility]. ?? 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 Para Term AB Living ?? 3 2 ?? SAB TAB Ectopic Multiple Live Births ? Obstetric Comments ?? Age @ onset of menses:13 Age @ first live :25 ? PMH: Past??Medical??History Past Medical History: Diagnosis Date ??? Lobular carcinoma in situ (LCIS) of right breast 12/26/2017 [facility] ?? PSH: Past??Surgical??History Past Surgical History: Procedure Laterality Date ??? BIOPSY BREAST Right 12/2017 ??? HX BUNIONECTOMY ?? 2018 ??? HX ENDOSCOPIC EXTRALARYNGEAL VOCAL CORD LATERALIZATION W/ MLB ?? 2014 ??? HX GALLBLADDER SURGERY ?? 1998 ??? HX HEART SURGERY ?? 2004 ?? 2006 and 2017 stent ?? ALLERGY: Allergies Allergen Reactions ??? Adhesive Rash ? Reaction: Rash, ??? Codeine Other (See Comments), Unknown and Nausea and Vomiting ? Other reaction(s): Unknown Other reaction(s): Nausea Only Reaction: Nausea, ?? MEDS: Current??Medications?? Current Outpatient Prescriptions Medication Sig Dispense Refill ??? atorvastatin (LIPITOR) 40 mg tablet ? clopidogrel (PLAVIX) 75 mg Tablet TK 1 T PO ONCE A DAY ?? 2 ??? coenzyme Q10 200 mg Capsule 200 mg. ? fluticasone (FLONASE) 50 mcg/spray Laton, Suspension 2 Sprays. ? Lactobacillus acidophilus 10 billion cell Capsule Take 1 capsule by oral route every day ? loratadine (CLARITIN) 10 mg tablet Take 10 mg by mouth. ? omeprazole (PriLOSEC) 40 mg Capsule, Delayed Release(E.C.) ? 3 ??? SUMAtriptan (IMITREX) 50 mg tablet TAKE 1 TABLET BY MOUTH EARLY POSSIBLE AFTER ONSET OF MIGRAINE. MAY REPEAT AFTER 2 HOURS IF HEADACHE RETURNS. ? No current facility-administered medications for this visit. ?? FHX: Family??History Family History Problem Relation Age of Onset ??? Throat Cancer Father 56 ??? Lung Cancer Father ? Breast Cancer Paternal Grandmother ? SOC: Social??History Social History ?? Social History ??? Marital status: ? Spouse name: N/A ??? Number of children: 2 ??? Years of education: N/A ?? Occupational History ??? Not on file. ?? Social History Main Topics ??? Smoking status: Former Smoker ? Packs/day: 1.00 ? Years: 35.00 ? Types: Cigarettes ??? Smokeless tobacco: Never Used ??? Alcohol use Yes ? Comment: rarely ??? Drug use: No ??? Sexual activity: Not on file ?? Other Topics Concern ??? Not on file ?? Social History Narrative ??? No narrative on file ?? ROS: Unremarkable Constitutional: Negative for fever, weight loss and malaise/fatigue. Respiratory: Negative for cough. Cardiovascular: Negative for chest pain and leg swelling. Gastrointestinal:. Negative for abdominal pain. Genitourinary: Negative for dysuria. Musculoskeletal: Negative for myalgias and joint pain. Skin: Negative for rash. Neurological: Negative for dizziness and headaches. Psychiatric/Behavioral: Negative for depression Endocrine: Negative for diabetes, negative for thyroid dysfunction Hematologic: Negative for anemia, bleeding disorders, HIV/AIDS ?? BP 132/84 Ht 5' 1 (1.549 m) Wt 74.8 kg (165 lb) ? No BMI 31.18 kg/m?? PHYSICAL EXAM: Physical Exam Constitutional: She is oriented to person, place, and time and well-developed, well-nourished, and in no distress. No distress. HENT: Head: Normocephalic and atraumatic. Eyes: Pupils are equal, round, and reactive to light. Right eye exhibits no discharge. Left eye exhibits no discharge. Neck: Normal range of motion. Neck supple. No JVD present. No tracheal deviation present. No thyromegaly present. Cardiovascular: Normal rate. Pulmonary/Chest: Effort normal and breath sounds normal. No respiratory distress. She has no wheezes. Abdominal: Soft. She exhibits no distension and no mass. There is no tenderness. Musculoskeletal: Normal range of motion. She exhibits no edema or deformity. Lymphadenopathy: She has no cervical adenopathy. Neurological: She is alert and oriented to person, place, and time. Gait normal. Skin: Skin is warm and dry. She is not diaphoretic. Psychiatric: Affect and judgment normal. Vitals reviewed. ?? Axilla-there is no axillary adenopathy Breasts -nipples are everted. There are no dominant masses Right breast:normal in appearance, no masses, skin changes or nipple discharge Left breast: normal in appearance, no masses, skin changes or nipple discharge ?? IMAGING: outside films are reviewed. Mammogram: December 18, 2017 and December 20, 2017. At [facility]. There is new asymmetric density outer right breast at mid depth and 1 cm area of indeterminate calcifications outer aspect at 9:00. Right breast ultrasound: December 20, 2017. At [facility]. There is a 1 cm cluster of subcentimeter cysts at 7:00 Right ultrasound-guided core biopsy outer mid: December 26, 2017. Lobular carcinoma in situ grade 2 concerning for DCIS Right ultrasound-guided core biopsy at 9:00: December 26, 2017. Lobular carcinoma in situ grade 2 concerning for DCIS Breast MRI: January 01, 2018. [facility]. There is a 2.6 cm biopsy site in the posterior upper outer right breast and a 2.4 cm biopsy site in the anterior upper outer right breast. There is a 6 mm area of enhancement in the upper outer right breast that has not been biopsied-mammogram and ultrasound in this area negative. And there is indeterminate enhancing areas in the left lower outer quadrant and lower inner quadrant for which second look ultrasound is recommended Left second look ultrasound: January 02, 2018. [facility]. Complex cystic masses are seen. 7mm at 4:00; 6 mm at 4:00; 5 mm at 5:00; 7 mm at 8:00 and 5 mm at 8:00. Tissue sampling is recommended for the 7mm lesion at 4:00 and 7 mm at 8:00. ?? IMPRESSION /PLAN: 53 y.o. 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 We spent 60 minutes in today???s discussion. I used drawings and illustrations and sent a printed brochure with them to reinforce the discussion. We talked about LCIS being a high risk lesion and not a breast cancer, and talked about possibilityof DCIS. ?? I explained that surgical excision after needle biopsy for this lesion was necessary to rule out associated DCIS or invasive breast cancer. I explained that there is increased subsequent development of breast cancer on either breast. I quoted them a 1% per year increased risk of developing breast cancer. We talked about preventative measures, including more frequent clinical exams, screening withMRI, annual mammogram, chemoprevention with Tamoxifen. We also talked about bilateral prophylactic mastectomy as part of risk reduction strategy. ?? Options include surgical excision of the 2 areas of LCIS on the right breast and the additional concerning area seen on MRI upper outer right breast She would also need needle core biopsy of 2 areas left breast upper outer quadrant and lower inner quadrant seen on breast MRI or surgical excision instead ?? If she does have DCIS, I told her she would need adjuvant radiation If she does have invasive cancer then she would need sentinel lymph node biopsy to evaluate her saman status ?? She is very much interested in bilateral prophylactic mastectomy. She is not interested in breast reconstruction She does not want 6 monthly follow-ups because of her busy lifestyle and the worry of needing more procedures in the future ?? General anesthesia would be used. I describe removing the breast tissue. During the mastectomy the nipple and areola would be removed with the breast tissue. Chest wall muscle would not be removed unless the tumor was attached to it. I would remove axillary sentinel lymph nodes using blue dye injection to locate the sentinel lymph nodes of interest. Care would be taken to minimize injury to the long thoracic nerve, thoracodorsal nerve and axillary vein. A drain tube would be needed. We talked about hospitalization, overnight. Benefits and risks of infection, bleeding, scarring, deformity, on swelling, nerve damage, need for additional procedures, and recurrence of the tumor in the breast, chest, or elsewhere. The pros and cons of breast reconstruction were discussed. I answered all questions posed patient expressed understanding. ?? As we have left it, we will proceed with bilateral prophylactic mastectomy without breast reconstruction I recommended sentinel lymph node biopsy with blue dye only bilaterally I described the surgery and what it would entail and she showed excellent understanding and willingness to proceed We will obtain preoperative chest x-ray EKG and blood tests More recommendations will follow final pathology results ?? More than 50% of today's office visit time was spent in [id number] discussion and coordination ofcare All of her questions are answered today to her satisfaction ?? Jennifer Waters MD FACS documented in this encounter OR Notes * Operative Report - Jennifer Waters MD - 05/16/2018 2:24 PM CDT DATE OF SERVICE: 05/16/2018 SURGEON Jennifer Waters MD PREOPERATIVE DIAGNOSIS LCIS POSTOPERATIVE DIAGNOSIS Same OPERATION NAME Right total mastectomy/ right axillary sentinel node biopsy and Left total mastectomy and left axillary sentinel lymph node biopsy ANESTHESIA General endotracheal tube ANESTHESIOLOGIST Dr Deshawn Umana; [facility] POISING INSPECTOR A Meeter This is a 53 y.o. woman who presented with diagnosis of right breast LCIS. She wished to undergo bilateral prophylactic mastectomy. I recommended sentinel lymph node biopsy on both sides. Risks, benefits, and complications of surgery discussed with her in great detail. She was given IV antibiotics prior to surgery with Ancef 2 grams. Bilateral lower extremity sequential devices were applied. She was brought into the operating room and placed on table in supine position. After induction of general anesthesia, with placement of endotracheal tube by anesthesia staff, she was prepped with Chloraprep and draped sterilely. After appropriate TIMEOUT procedure, I approached the right breast. 1cc of Methylene blue dye dye diluted to 5cc with Saline is injected subdermal and periareolar and massaged over 5 minutes. Then using a #10 blade, an elliptical incision encompassing the nipple-areolar complex. Incision was carried through skin and through subcutaneous tissues. Using cautery, subcutaneous tissues were further divided. We started at the upper outer aspect towards the axilla. Flapswere raised superiorly through the axillary fascia into the axillary space. One axillary sentinel lymph node was identified and sent for frozen section. We received confirmation that there was no metastases. At this point, I continued with the mastectomy. We continued raising the flap superiorly tothe clavicle, inferiorly to the inframammary crease, and medially to the sternum. Breast tissue wasthen swept from medial to lateral, taking the pectoralis fascia. At the lateral extent, breast was disconnected from chest wall. A single silk suture is used to muriel the axillary tail. Hemostasis wasobtained meticulously in the chest wall and the axilla. The wound was irrigated copiously. Surgicelwas applied overlying the chest wall and the axillary area. One #19 Fran-Bunch drain was inserted overlying the chest wall and secured with 3-0 Prolene suture. Skin flaps were then reapproximated using interrupted 3-0 Vicryl sutures, followed by 4-0 running Monocryl subcuticular closure. Next I approached the left breast. Using a #10 blade, an eliptical incision was made encompassing the nipple-areolar complex. Incision was carried through skin to the subcutaneous tissue with a #10 blade. We started at the upper outer aspect towards the axilla. Flaps were raised superiorly through the axillary fascia into the axillary space. One axillary sentinel lymph node was identified and sent for frozen section. We received confirmation that there was no metastases. We then returned to themastectomy. Flaps were raised superiorly to the clavicle, inferiorly to the inframammary crease, and medially to the sternum. Breast tissue was then excised from medial to lateral. At the lateral extent, breast was disconnected from the chest wall. A silk suture marked the axillary tail. The left breast specimen was sent to pathology. Surgicel was applied overlying the chest wall and the axillary area. One #19 Fran-Bunch drain was inserted overlying the chest wall and was secured with 3-0 Prolene suture. Skin flaps were then reapproximated using interrupted 3-0 Vicryl sutures, followed by4-0 running Monocryl subcuticular closure. Skin glue, Telfa, 4x4s sponges, cotton and surgical bra was then applied followed by a surgical bra. The endotracheal tube was removed in the operating room by anesthesia. She was taken to recovery room in good condition. All needles, instruments, and sponge counts were correct. There were no compli cations. Blood loss: 70cc Specimens: Right axillary sentinel lymph node, Right breast, Left axillary sentinel lymph node and Left breast Drains:#10 Fran Bunch drain x 2 Patient to recovery room in good condition * Cinthia-OP - Maegan Stephenson RN - 05/10/2018 11:36 AM CDT Images from the original note were not included. [facility] Pre-Procedure Instructions PACE PACE Name: Mirtha HARTLEY Age: 53 y.o. Please report to the: [x] Surgery Center [] [facility] (2nd Floor) [] Other: Date of Procedure: 05/16/2018 Arrive at the time your surgeon's office has instructed. If you are unsure of the arrival time, please call your surgeon's office 24-48 hours before your surgery to confirm. PLEASE NOTIFY your surgeon promptly if you begin to feel ill prior to your surgery. A cold, sore throat, fever, or flu may require postponing the surgery to another date for your safety. Please follow these important instructions PRE-PROCEDURE DIETARY INSTRUCTIONS ?? Do not eat solid food after midnight prior to your procedure. This includes but not limited to any milk product, puddings, and applesauce. ?? Do not consume energy drinks containing high levels of caffeine after midnight prior to your procedure. ?? You may consume clear fluids up until 4 hours prior to your scheduled procedure time or 2 hours prior to arrival. ?? Limit the clear fluid intake to 12 fluid ounces or equivalent to a soda can. ?? Examples of clear liquids include: Water; Gatorade or similar clear fluids with electrolytes arepreferred; carbonated beverages such as soda or sparkling water; tea and black coffee (do not use milk or cream), clear fruit juices without pulp such as apple, cranberry or grape are allowed yet discouraged due to the acidity of the juices. WITHIN 24 HOURS PRIOR TO SURGERY ?? SHOWER AND SHAMPOO before bed and the morning of surgery (using provided soap if instructed or using anti-bacterial soap on operative site). ?? DO NOT SHAVE near the surgical area for 24 hours prior. ?? After showering the morning of surgery, DO NOT APPLY body lotions, deodorants, colognes, lipstick, make-up, hairspray, mousse, gel, or powder. ?? DO NOT WEAR JEWELRY (rings, earrings, and body piercings), wigs, or hair pieces to the hospital. ?? SMOKING AND USE OF TOBACCO PRODUCTS We recommend patients abstain from smoking for as long as possible before and after surgery, but even quitting for a brief period is still beneficial. DO NOT SMOKE OR USE TOBACCO PRODUCTS 12 hours before arrival to hospital. ?? PLEASE DO NOT EAT anything--including GUM, CANDY, or MINTS--after midnight. You may BRUSH YOUR TEETH but do not swallow water. DAY OF SURGERY INSTRUCTIONS ?? YOU WILL NEED A RESPONSIBLE ADULT FAMILY MEMBER or FRIEND with YOU UPON DISCHARGE. YOUR SURGERY MAY BE CANCELLED IF YOU DO NOT HAVE A RESPONSIBLE ADULT WITH YOU AT DISCHARGE TO TAKE YOU HOME. ?? BRING PRESCRIBED INHALERS to the hospital with you but DO NOT BRING ANY OTHER MEDICATIONS to thehospital (unless otherwise instructed). ?? WEAR comfortable, loose fitting clothes to the hospital that will fit over dressings after your surgery. ?? WEAR GLASSES instead of contact lenses to the hospital; bring a case if possible for glasses, dentures, and hearing aids as you will be asked to remove these items before your surgery. ?? BRING your insurance cards and recycler forklift driver truck driver's license or photo ID. DO NOT BRING VALUABLES or large amounts of cesar with you to the hospital. ?? BRING any medical devices you need to the hospital, including CPAP, BIPAP, or WOUND VAC machines. ?? Surgical times are estimates and can vary depending on numerous factors. ?? Expect a minimum post-op recovery of 1 hour. The medical staff will provide updates to family and/or friends as appropriate. ADVANCED PLANNING FOR MEDICATION USE STOP Seven- fourteen (7-14) DAYS PRIOR TO SURGERY the use of all vitamins, herbal supplements, and other alternative substances. STOP Seven (7) DAYS PRIOR TO SURGERY the use of any UNPRESCRIBED Aspirin, Excedrin and NSAIDs whichinclude Motrin, Ibuprofen, Aleve, and Naprosyn. CURRENT MEDICATION LIST Pre-Surgery Instructions: Medication Instructions ??? aspirin (ASPIR-81 ORAL) Stop taking STOP TAKING [address] GASTON days prior to surgery ??? albuterol HFA 90 mcg inhaler Take day of surgery and bring with you to the hospital ??? atorvastatin (LIPITOR) 40 mg tablet Continue taking as prescribed ??? clopidogrel (PLAVIX) 75 mg Tablet Stop taking STOP PER DR GASTON CARDIO days prior to surgery ??? coenzyme Q10 200 mg Capsule Stop taking 1 week prior to surgery ??? fluticasone (FLONASE) 50 mcg/spray [place], Suspension Continue taking as prescribed ??? loratadine (CLARITIN) 10 mg tablet Continue taking as prescribed ??? omeprazole (PriLOSEC) 40 mg Capsule, Delayed Release(E.C.) Take morning of surgery with sip of water ??? SUMAtriptan (IMITREX) 50 mg tablet Continue taking as prescribed documented in this encounter Miscellaneous Notes * Care Plan - Damaris Gloria RN - 05/17/2018 5:18 AM CDT Patient is tolerating a general diet without difficulty, she is voiding without difficulty. She transfers In & out of bed with minimal assist & ambulates with steady gait. Her jobst bra remains on & her dressings remain dry & intact. Her pain is well controlled with Percocet 5 mg po. She anticipates discharge home today. * Care Plan - Sandra Reyes RN - 05/16/2018 2:27 PM CDT Potential for pain related to surgical/procedural intervention Interventions: Assess level of pain/comfort utilizing verbal/nonverbal pain scales; assess culturalor yarsani indicators attached to pain; administer pain medications as prescribed; utilize non-pharmacologic pain control and comfort measures Expected Outcome: Patient demonstrates and reports adequate pain control Outcome Met: pt denies pain at this time * Care Plan - Kristal Cox RN - 05/16/2018 9:39 AM CDT Knowledge deficit related to procedure/environment Interventions: Assess learning needs and willingness to learn; give clear, concise explanations of the environment and sequence of events surrounding the periop experience; address patient/family questions and concerns; provide teaching as indicated, provide teaching related to postoperative pain assessment utilizing pain scales Expected Outcome: Patient verbalizes or demonstrates awareness/understanding of surgery and perioperative experience Outcome Met: Pt/family questions/concerns addressed and understands preop process and flowPotentialfor anxiety related to surgical intervention Interventions: convey caring/supportive attitude; offer emotional support as needed; provide comfort measures (warm blanket, pillow, quiet environment); allow patient opportunity to verbalize concerns/fears/questions; explore coping behaviors; allow age-specific/special needs family support Expected Outcome: Patient will demonstrate decreased anxiety or adaptive coping strategies Outcome Met: Questions/concerns addressed and ready for OR documented in this encounter Plan of Treatment Pending Results Name Type Priority Associated Diagnoses Date/Time EDUCATION ANESTHESIA (ADULT) - RINA External Education Routine 05/10/2018 11 :47 AM CDT documented as of this encounter Procedures Procedure Name Priority Date/Time Associated Diagnosis Comments TELEMETRY REPORT 05/17/2018 5:38 PM CDT PATHOLOGY Pathology 05/16/2018 11:59 AM CDT SENTINEL LYMPH NODE BIOPSY 05/16/2018 10:07 AM CDT Right breast, lobular carcinoma in situ Case Notes ANTHEM--PP BREAST MASTECTOMY TOTAL 05/16/2018 10:07 AM CDT Right breast, lobular carcinoma in situ Case Notes ANTHEM--PP documented in this encounter Results * TELEMETRY REPORT (05/17/2018 5:38 PM CDT) Provider Scanning ECG ORDERABLES * PATHOLOGY (05/16/2018 11:59 AM CDT) CASE REPORT Surgical Pathology Report ? Case: [id number] ? Authorizing Provider: ??Jennifer Waters MD ?Collected: ? 05/16/2018 11:59 AM ? Ordering Location: ? [facility] ?Received: ?05/16/2018 02:06 PM ? Operating Room ? Pathologist: ? Link, Levi Wang MD ? Specimens: ?? A) - [place] Lymph Node, Right Axillary [place] Lymph Node ? B) - Breast, right, Right Breast, Stitch at ??Axillary Tail ? C) - [place] Lymph Node, Left Axillary [place] Lymph Node ? D) - Breast, left, Left Breast, Stitch at Axillary Tail ? E) - Breast, left, Left Breast ? 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 - Radial scars, multiple small. - Fibrocystic changes. - Microcalcifications. - Biopsy site reaction, two foci of (history of previous core biopsies, [id number]). Lymph nodes, right axillary sentinel, excision: - No evidence of malignancy (0/2). Breast, left, total mastectomy: - Fibrocystic changes. Lymph node, left axillary sentinel, excision: - No evidence of malignancy (one lymph node examined). Skin and subcutaneous tissue, tissue submitted as left breast (specimen E), excision: - No pathologic diagnosis. 8 6:36 PM [facility] [employer] [facility] AOPERATIVE CONSULTATION FS1: [place] lymph node, right axillary, excision: - Negative for carcinoma (0/1). Results given to Dr. Waters. FS2: [place] lymph node, left axillary, excision: - Negative for carcinoma (0/1). Results given to Denise Antony in OR 3. Italia Braga M.D. 8 6:36 PM [facility] [employer] [facility] SPECIMEN DESCRIPTION (A) Right axillary sentinel lymph node; (B) right breast, stitch at axillary tail; (C) left axillary sentinel lymph node; (D) left breast, stitch at axillary tail; (E) left breast. 8 6:36 PM [facility] OPERATIVE PROCEDURE Right and left prophylactic mastectomy total, bilateral; right and left sentinel lymph node biopsy, blue dye only. 8 6:36 PM [facility] CLINICAL DIAGNOSIS Right breast, lobular carcinoma in situ. 8 6:36 PM [facility] GROSS DESCRIPTION Received are five containers labeled Dilip Mirtha. Received fresh for frozen section in the first container additionally labeled (A) right axillary sentinel lymph node is a 3.5 x 2.6 x 1.0-cm piece of yellow, lobulated fatty tissue. A 2.5 x 1.3 x 0.8-cm focally blue dye-stained lymph node is identified. It is bisected and entirely submitted for frozen section as FS1. The frozen section remnant is submitted in cassette A1. An additional 0.3-cm fragment of pink-whitten possible saman tissue is identified at the time of gross dissection. It is submitted in cassette A2. Received in the second container labeled (B) right breast, stitch at axillary tail is a 1,305-g, 25.0 x 23.0 x 5.0-cm breast with an overlying 20.0 x 14.0-cm horizontal ellipse of wrinkled whitten skin. The 1.0 x 1.0 x 0.6-cm unretracted nipple is surrounded by a 5.5 x 5.5-cm areola. The skin surface is centrally blue dye-stained. No distinct lesions are identified. The breast is oriented with a suture marking the axillary tail. No attached axillary tissue is identified. The sutured area is marked with yellow ink. The deep margin is inked black, and the remainder of the breast is inked blue. Sectioning demonstrates a 0.5 x 0.3 x 0.3-cm slightly retracted area with possible fat necrosis in the upper outer quadrant at approximately 0930 to 10 o'clock breast position. A biopsy clip is not identified within the planes of sectioning. This area comes to within 2.8 cm from the closest deep margin, 5.7 cm from anterior, 12.0 cm from superior, 5.0 cm from lateral, and is approximately 7.0 cm from the nipple. A ribbon-shaped biopsy clip is identified within the upper outer quadrant near the center of the breast at approximately 11 o'clock breast position. There is a 1.3 x 0.5 x 0.5-cm area of slightly retracted, slightly firm breast tissue surrounding the biopsy clip. This comes to within 4.5 cm from the closest deep margin, 6.0 cm from anterior, is approximately 3.5 cm from the nipple, and is 4.0 cm medial to the slightly retracted area at 0930 to 10 o'clock breast position. The remainder of the cut surfaces consist of dense, fibrous tissue intermixed with adipose tissue. The central breast tissue is blue dye stained. No attached lymph nodes are identified. [employer] sections are submitted as follows: B1-nipple; W5-6-yizaxncm retracted area in upper outer quadrant with possible fat necrosis, sequentially and entirely submitted from medial to lateral (B2 includes closest deep margin, perpendicular); B5-9-area marked with ribbon-shaped biopsy clip, sequentially and entirely submitted from medial to lateral (B5 includes closest deep margin, perpendicular); D00-buvrd inner quadrant; Y68-jjhwp inner quadrant; N98-ayhff outer quadrant; A79-ozrqo outer quadrant. The specimen is collected at 1217 on 05/16/18 and is sectioned and placed in formalin at 1246. After histologic review of the initial sections, the right mastectomy specimen is taken to the breast center for x-rays to identify the location of the second biopsy clip. A biopsy clip with a hook at one end is identified within the specimen on radiology. However, upon further sectioning of the specimen at this radiographically-iden tified biopsy site, the clip cannot be located. A 2.5 x 1.5 x 1.0 cm area of firm, retracted breast tissue with focal fat necrosis and a possible needle tract is identified in the upper outer quadrant at approximately 11 o'clock breast position. This area is 2.0 cm from the closest deep margin, 3.5 cm from anterior, 11.5 cm from superior, and is approximately 6.5 cm from the nipple. This area is entirely submitted from medial to lateral in cassettes B14 through B29. A perpendicular section of the closest deep margin is submitted in cassette B16. Received fresh for frozen section in the third container labeled (C) left axillary sentinel lymph node is a 4.0 x 3.7 x 1.0-cm piece of yellow, lobulated fatty tissue. A 2.2 x 1.6 x 0.8-cm focally blue dye-stained lymph node is identified. The lymph node is bisected and entirely submitted for frozen section as FS2. The frozen section remnant is submitted in cassette C1. Received in the fourth container labeled (D) left breast, stitch at axillary tail is a 1,277-g, 24.0 x 22.5 x 5.0-cm breast with an overlying 20.0 x 13.5-cm horizontal ellipse of wrinkled whitten skin. The 1.1 x 1.0 x 0.6-cm unretracted nipple is surrounded by a 5.0 x 5.0-cm areola. The skin surface is centrally blue dye-stained. No lesions are identified. The breast is oriented with a suture marking the axillary tail. No attached axillary tissue is identified. The suture site is marked with yellow ink. The deep margin is inked black, and the remainder of the breast is inked blue. Sectioning demonstrates dense, fibrous tissue intermixed with adipose tissue. The fibrous tissue is nodular with soft, yellow-whitten material within the ducts of the central breast tissue. No distinct mass lesions are identified or palpated. The central breast tissue is blue dye-stained. No attached lymph nodes are identified. [employer] sections are submitted as follows: D1-nipple; D2-3-upper inner quadrant; D4-5-lower inner quadrant; D6-7-upper outer quadrant; D8-9-lower outer quadrant; X93-idfmsfd breast tissue deep to nipple. The specimen is collected at 1310 on 05/16/18 and is sectioned and placed in formalin at 1334. Also received in the container are three fragments of yellow, lobulated fibrofatty tissue measuring 3.5 x 3.5 x 1.0 cm. Sectioning demonstrates a yellow, lobulated unremarkable cut surface. No lymph nodes or discrete lesions are identified or palpated; no sections of this tissue are submitted. Received in the fifth container labeled (E) left breast are three strips of wrinkled, whitten skin measuring 2.2 x 1.0 cm, 4.5 x 2.6 cm, and 15.5 x 1.0 cm. The skin is excised to a depth ranging from 0.3 to 1.0 cm. No lesions are identified on the skin surface. Also received is a 3.0 x 2.0 x 0.7-cm aggregate of yellow, lobulated fatty tissue. Sectioning demonstrates a yellow, lobulated unremarkable cut surface with no discrete lesions. [employer] sections are submitted in cassette E1. /faraz 8 6:36 PM [facility] MICROSCOPIC DESCRIPTION The slides are labeled Mirtha Hartley and [id number]. The one right axillary sentinel lymph node submitted for frozen section is free of metastatic carcinoma by H&E staining. The one separate additionally-identifi ed lymph node in this specimen is also free of metastatic carcinoma by H&E staining. Within the right mastectomy, the tissue submitted from the slightly retracted area in the upper-outer quadrant at approximately 9:30 to 10 o'clock contains a small radial scar, and there are areas of atypical lobular hyperplasia and lobular carcinoma in situ in the surrounding parenchyma. A biopsy site reaction is not identified in the sections submitted from this site, and no invasive carcinoma is identified at this site. The tissue submitted from the more central upper-outer quadrant at approximately 11 o'clock with the identifiable biopsy site marker shows a biopsy site reaction with multiple surrounding areas of lobular carcinoma in situ. The lobular carcinoma in situ has a somewhat variable appearance with areas of low-grade cytologic atypia and scattered areas showing intermediate to high-grade cytologic atypia with areas of central necrosis and an occasional associated intraluminal microcalcification, consistent with a pleomorphic lobular carcinoma in situ component. No invasive carcinoma is identified at this site. The resubmitted tissue in cassettes B14 to B29 contains the second biopsy site. In multiple sections adjacent to and around this site, there are multiple areas of lobular carcinoma in situ including scattered areas with a pleomorphic pattern. At this site, the lobular carcinoma in situ is involving areas of sclerosing adenosis and focally, a small radial scar. A myoepithelial cell layer is identified throughout these areas of lobular carcinoma in situ, and no invasive carcinoma is identified. There are a few associated intraluminal microcalcifications. Otherwise, the breast parenchyma shows fibrocystic changes including areas of dense fibrosis, scattered cysts, areas of apocrine metaplasia, and areas of sclerosing adenosis, and there is an occasional small radial scar and clusters of intraluminal microcalcifications associated with the benign breast parenchyma. The nipple is unremarkable. The sections from the deep margin of the mastectomy are unremarkable and are free of invasive or in situ carcinoma. The one identified left axillary sentinel lymph node is free of metastatic carcinoma by H&E staining. The tissue from the left breast shows fibrocystic changes including areas of dense fibrosis, scattered cysts and areas of adenosis including areas of blunt duct adenosis and sclerosing adenosis. There are scattered focal areas of usual ductal epithelial hyperplasia without atypia. There are a few foci of duct ectasia. No invasive or in situ carcinoma is identified in this breast. The nipple is unremarkable. The separately-submitted tissue labeled left breast (specimen E) consists of pieces of skin with attached subcutaneous adipose tissue. No significant amount of attached breast parenchyma is identified in the sections submitted. The epidermis is unremarkable. No invasive or in situ carcinoma is identified in this specimen. 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 8 6:36 PM CDT [facility] COMMENT Special stain and/or immunohistochemical results are interpreted with controls that demonstrate appropriate staining reactions. Note on use of immunocytochemistry reagents: This test was developed and its performance characteristic determined by [facility], Department of Laboratory Medicine. It has not been cleared or approved by the U.S. Food and Drug Administration. The FDA has determined that such clearance or approval is not necessary. The test is used for clinical purpose. It should not be regarded as investigational or for research. This laboratory is certified to perform high complexity testing. Case types starting with WS, WF, WB and WH are performed by [address], [address]. All other case types are performed by [address] [facility], [id number]. 8 6:36 PM CDT [facility] Tissue ([place] Lymph Node) Collection / Unknown 05/16/2018 11:59 AM CDT 05/16/2018 2:06 PM CDT Tissue specimen (specimen) RIGHT BREAST STRUCTURE / Unknown 05/16/2018 12:17 PM CDT 05/16/2018 2:06 PM CDT Tissue specimen (specimen) ([place] Lymph Node) 05/16/2018 12:51 PM CDT 05/16/2018 2:06 PM CDT Tissue specimen (specimen) LEFT BREAST STRUCTURE / Unknown 05/16/2018 1:10 PM CDT 05/16/2018 2:06 PM CDT Tissue specimen (specimen) LEFT BREAST STRUCTURE / Unknown 05/16/2018 1:21 PM CDT 05/16/2018 2:06 PM CDT Jennifer Waters MD PATHOLOGY/CYTOLOGY O [facility]# [id number] [address] [place] [address] documented in this encounter Visit Diagnoses Not on filedocumented in this encounter Administered Medications Inactive Administered Medications - up to 3 most recent administrations Medication Order MAR Action Action Date Dose Rate Site dextrose 5% - sodium chloride 0.45% infusion IV, at 75 mL/hr, CONTINUOUS, Starting on Mon05/16/18 at 1615, Until Laura 05/17/18 at 1257, Routine, Post-op - Floor New Bag 05/16/2018 4:40 PM CDT 75 mL/hr lactated Ringers solution IV, at 125 mL/hr, POST-PROCEDURE CONTINUOUS, Starting on Mon05/16/18 at 1400, Until Laura 05/17/18 at 1257, Routine, PACU methylene blue (UROLENE BLUE) 1 % (10 mg/mL) injection INTRA-PROCEDURE PRN, Starting on Mon05/16/18 at 1243, Until Mon05/16/18 at 1357, Routine, Intra-op Given 05/16/2018 12:43 PM CDT 2 mL Operative Site morphine 4 mg/mL injection 2 mg 2 mg, IV, EVERY 3 HOURS PRN, Starting on Mon05/16/18 at 1605, Until Laura 05/17/18 at 1257, Pain (See admin instructions), Routine, Post-op - Floor naloxone (NARCAN) 0.4 mg/mL injection 0.1 mg 0.1 mg, IV, SEE ADMIN INSTRUCTIONS, Starting on Mon05/16/18 at 1605, Until Laura 05/17/18 at 1257, Routine, Post-op - Floor ondansetron (ZOFRAN ODT) tablet 4 mg 4 mg, Oral, EVERY 6 HOURS PRN, Starting on Mon05/16/18 at 1605, Until Laura 05/17/18 at 1257, Nausea/Emesis, Routine, Post-op - Floor ondansetron (ZOFRAN) 4 mg/2 mL injection 4 mg 4 mg, IV, PRE-PROCEDURE ONCE PRN, 1 dose, Starting on Mon05/16/18 at 0946, Until Mon05/16/18 at 0953, Nausea/Emesis, Routine Given 05/16/2018 9:53 AM CDT 4 mg oxyCODONE-acetaminophen (PERCOCET) 5-325 mg per tablet 1 Tablet 1 Tablet, Oral, EVERY 4 HOURS PRN, Starting on Mon05/16/18 at 1423, Until Laura 05/17/18 at 1257, Pain (See admin instructions), Routine Given 05/17/2018 8:35 AM CDT 1 Tablet Given 05/17/2018 2:41 AM CDT 1 Tablet Given 05/16/2018 9:41 PM CDT 1 Tablet sodium chloride 0.9% vial - DILUENT INTRA-PROCEDURE PRN, Starting on Mon05/16/18 at 1244, Until Mon05/16/18 at 1357, Routine, Intra-op Given 05/16/2018 12:44 PM CDT 8 mL Oper ative Site SUMAtriptan (IMITREX) tablet 50 mg 50 mg, Oral, PRE-PROCEDURE ONCE PRN, 1 dose, Starting on Mon05/16/18 at 0925, Until Mon05/16/18 at 0953, Migraine, Routine, Pre-op Now Given 05/16/2018 9:53 AM CDT 50 mg documented in this encounter Active and Recently Administered Medications Times are shown in CDT. Scheduled Medication Order 05/15/2018 05/16/2018 05/17/2018 ceFAZolin in sterile water (ANCEF) 2 gram/20 mL IV Syringe (PREMIX) 2,000 mg (COMPLETED) 2,000 mg, IV, PRE-PROCEDURE ONCE, 1 dose, Starting on Mon05/16/18 at 0909, Until Mon05/16/18 at 1137, Routine, Pre-op, Antibiotic Indication: Surgical prophylaxis 1132 (Given - Provider: Rui Alberto CRNA)1137 (Stopped - Provider: Chauncey Alberto CRNA) naloxone (NARCAN) 0.4 mg/mL injection 0.1 mg 0.1 mg, IV, SEE ADMIN INSTRUCTIONS, Starting on Mon05/16/18 at 1605, Until Laura 05/17/18 at 1257, Routine, Post-op - Floor Continuous Medication Order 05/15/2018 05/16/2018 05/17/2018 dextrose 5% - sodium chloride 0.45% infusion IV, at 75 mL/hr, CONTINUOUS, Starting on Mon05/16/18 at 1615, Until Laura 05/17/18 at 1257, Routine, Post-op - Floor 1640 (New Bag - Provider: Danae Rubio RN) 0040 (Stopped - Provider: Damaris Gloria RN) lactated Ringers solution IV, at 125 mL/hr, POST-PROCEDURE CONTINUOUS, Starting on Mon05/16/18 at 1400, Until Laura 05/17/18 at 1257, Routine, PACU 1400 (Canceled Entry - Provider: Danae Rubio RN) PRN Medication Order 05/15/2018 05/16/2018 05/17/2018 methylene blue (UROLENE BLUE) 1 % (10 mg/mL) injection (CANCELED) INTRA-PROCEDURE PRN, Starting on Mon05/16/18 at 1243, Until Mon05/16/18 at 1357, Routine, Intra-op 1243 (Given - Provider: Jennifer Waters MD - Comment: 1ml applied bilateral to sentinel Lymph node) morphine 4 mg/mL injection 2 mg 2 mg, IV, EVERY 3 HOURS PRN, Starting on Mon05/16/18 at 1605, Until Laura 05/17/18 at 1257, Pain (See admin instructions), Routine, Post-op - Floor ondansetron (ZOFRAN ODT) tablet 4 mg 4 mg, Oral, EVERY 6 HOURS PRN, Starting on Mon05/16/18 at 1605, Until Laura 05/17/18 at 1257, Nausea/Emesis, Routine, Post-op - Floor ondansetron (ZOFRAN) 4 mg/2 mL injection 4 mg (COMPLETED) 4 mg, IV, PRE-PROCEDURE ONCE PRN, 1 dose, Starting on Mon05/16/18 at 0946, Until Mon05/16/18 at 0953, Nausea/Emesis, Routine 0953 (Given - Provider: Kristal Cox RN) oxyCODONE-acetaminophen (PERCOCET) 5-325 mg per tablet 1 Tablet 1 Tablet, Oral, EVERY 4 HOURS PRN, Starting on Mon05/16/18 at 1423, Until Laura 05/17/18 at 1257, Pain (See admin instructions), Routine 1639 (Given - Provider: Danae Rubio RN)2141 (Given - Provider: Damaris Gloria RN) 0241 (Given - Provider: Damaris Gloria RN)0835 (Given - Provider: Maggie Mata RN) sodium chloride 0.9% vial - DILUENT (CANCELED) INTRA-PROCEDURE PRN, Starting on Mon05/16/18 at 1244, Until Mon05/16/18 at 1357, Routine, Intra-op 1244 (Given - Provider: Jennifer Waters MD) SUMAtriptan (IMITREX) tablet 50 mg (COMPLETED) 50 mg, Oral, PRE-PROCEDURE ONCE PRN, 1 dose, Starting on Mon05/16/18 at 0925, Until Mon05/16/18 at 0953, Migraine, Routine, Pre-op Now 0953 (Given - Provider: Kristal Cox RN) documented in this encounter Care Teams School Guard Relationship Specialty Start Date End Date Emerson Allen MD [address] [place] [phone] PCP - General Family Practice 04/27/18 documented as of this encounter
--- OUTSIDE RECORDS SUMMARY | 2024-10-13 04:23 | XMS_ITS | Encounter Summary ---
Author Organization [facility] Address [address] [place] [address] Care Team Providers Care Shearing Machine Operator Name Role Phone Emerson Allen MD Primary Care Provider Reason for Visit * Reason Comments Post-op Visit Encounter Details Date Type Department Care Team (Late st Contact Info) Description 06/18/2018 11:30 AM CDT Office Visit [facility] [address] [facility] [address] [place] [address] Jennifer Waters MD [address] [place] [phone] Lobular carcinoma in situ (LCIS) of [...] - - Weight 74.8 kg (165 lb) 06/18/2018 11:21 AM CDT Height 154.9 cm (5' 1 ) 06/18/2018 11:21 AM CDT Body Mass Index 31.18 06/18/2018 11:21 AM CDT documented in this encounter Progress Notes * Jennifer Waters MD - 06/18/2018 12:01 PM CDT Status post bilateral mastectomy and bilateral [...] hadbreast cancer. 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 She is . She drinks rarely and is a 35 year pack smoker. Ht 5' 1 (1.549 m) Wt 74.8 kg (165 lb) BMI 31.18 kg/m?? The bilateral chest wall incisions are healing very nicely. The drain output is clear and less than 30 cc the past 3 days. The nylon sutures remain intact with no cellulitis along the wound edge The range of motion is excellent We will leave the drain in for another few days I will see her back on Monday for drain removal and to remove every other suture The patient is asked to make an attempt to improve diet and exercise patterns to aid in breast cancer risk reduction. Jennifer Waters MD FACS * Ashia Delaney RN - 06/18/2018 11:22 AM CDT Patient comes in today for f/u on debridement and revision of right mastectomy site on 06/08/18. Drain in place with less than 30 cc's output qd x [address]. No erythema. ABX need on 06/15/18. No pain per patient. Dr Waters saw patient and evaluated. documented in this encounter Plan of Treatment Not on file documented as of this encounter Visit Diagnoses Diagnosis Lobular carcinoma in situ (LCIS) of right breast- Primary S/P bilateral mastectomy Acquired absence of breast and nipple documented in this encounter Care Teams Shearing Machine Operator Relationship Specialty Start Date End Date Emerson Allen MD [address] [place] [phone] PCP - General Family Practice 04/27/18 documented as of this encounter
--- OUTSIDE RECORDS SUMMARY | 2024-10-13 04:23 | XMS_ITS | Encounter Summary ---
Author Organization [facility] Address [address] [place] [address] Care Team Providers Care Billing Collections Specialist Name Role Phone Emerson Allen MD Primary Care Provider Reason for Visit * Auth/Cert Specialty Diagnoses / Procedures Referred By Denton pickard Referred To Contact Diagnoses Lobular carcinoma in situ of right breast RIGHT BREAST CA Procedures NE BREAST SURGERY PROCEDURE UNLISTED NE REPR CMPL WND TRUNK 2.6-7.5CM Right Debridement and Revision of Mastectomy Jennifer Waters MD [address] [place] [id number] Referral ID Status Reason Start Date Expiration Date Visits Re quested Visits Authorized [id number] 06/06/2018 1 1 Encounter Details Date Type Department Care Team (Latest Contact Info) Description 06/08/2018 6:16 AM CDT - 06/08/2018 10:52 AM CDT Hospital Encounter [facility] [address] [place] [address] Jennifer Waters MD [address] [phone] Chewing tobacco nicotine dependence, uncomplicated Discharge Disposition: Home or Self Care Social History Tobacco Use Types Packs/Day Years [...] Sign Reading Time Taken Comments Blood Pressure 131/63 06/08/2018 10:30 AM CDT Pulse 76 06/08/2018 10:30 AM CDT Temperature 36.3 ??C (97.3 ??F) 06/08/2018 8:54 AM CD T Respiratory Rate 18 06/08/2018 10:30 AM CDT Oxygen Saturation 96% 06/08/2018 10:30 AM CDT Inhaled Oxygen Concentration - - Weight 69.9 kg (154 lb) 06/08/2018 6:39 AM CDT Height 154.9 cm (5' 1 ) 06/08/2018 6:39 AM CDT Body Mass Index 29.1 06/08/2018 6:39 AM CDT documented in this encounter Discharge Instructions * Discharge Instructions* Jennifer Waters MD - 06/08/2018 9:26 AM CDT [facility] BREAST SURGERY [address] [place] [address] Post operative instructions: Activity: ___Walk around every [...] PLEASE EMAIL IN 2 DAYS VIA MY TEEspyY -TO LET ME KNOW HOW YOU ARE DOING -TO LET ME KNOW IF YOU NEED REFILLS -ANY PROBLEMS OR QUESTIONS -TO LET ME KNOW DRAIN OUTPUTS If you have any questions, please call the office at between the hours of 9AM and 5PMMonday through Monday. After hours for emergencies, you may call this number to be connected to the[employer] service. documented in this encounter Medications at Time of Discharge Medication Sig Dispensed Refills Start Date End Date cephALEXin (KEFLEX) 500 mg capsule TK 1 C PO QID X 10 DAYS 0 06/05/2018 oxyCODONE-acetaminophe n (PERCOCET) 5-325 mg tablet Take 1 Tablet by mouth every 6 hours as needed for Pain. Max Daily Amount: 4 Tablets 20 Tablet 06/08/2018 albuterol HFA 90 mcg inhaler Take 2 [...] AFTER 2 HOURS IF HEADACHE RETURNS. 12/13/2017 fluticasone (FLONASE) 50 mcg/spray Arnold, Suspension Administer 2 Sprays in each nostril 1 time daily as needed . 06/14/2017 06/14/2018 documented as of this encounter H&P Notes * Jennifer Waters MD - 06/08/2018 9:20 AM CDT Mirtha HARTLEY is a 53 y.o. female. Status post bilateral mastectomy and bilateral SNBx 05/16/2018 Pathology= Right= LCIS, pleimorphic LCIS. Margins neg. 2 slns neg Left= FCC. 1 sln neg She has post operative complication of wound infection and dehiscence. She presented with lobular carcinoma in situ right breast with possible ductal carcinoma in situ diagnosed on needle core biopsy December 2017, following abnormal screening mammogram. She is 3, para 3. She was 13 at menarche and 25 at first live . There is a paternal great grandmother hadbreast cancer. 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 She is . She drinks rarely and is a 35 year pack smoker. [employer] HX: OB History ?? Para Term AB Living ?? 3 2 ?? SAB TAB Ectopic Multiple Live Births ? Obstetric Comments ?? Age @ onset of menses:13 Age @ first live :25 ? PMH: Past??Medical??History Past Medical History: Diagnosis Date ??? Lobular carcinoma in situ (LCIS) of right breast 12/26/2017 ?? [place] [facility] ?? PSH: Past??Surgical??History Past Surgical History: Procedure Laterality Date ??? BIOPSY BREAST Right 12/2017 ??? HX BUNIONECTOMY ?? 2017 ??? HX ENDOSCOPIC EXTRALARYNGEAL VOCAL CORD LATERALIZATION W/ MLB ?? 2014 ??? HX GALLBLADDER SURGERY ?? 1998 ??? HX HEART SURGERY ?? 2005 ?? 2007 and 2017 stent ?? ALLERGY: Allergies Allergen [...] 200 mg. ? fluticasone (FLONASE) 50 mcg/spray Arnold, Suspension 2 Sprays. ? Lactobacillus acidophilus 10 [...] ?? Axilla-there is no axillary adenopathy Breasts -bilateral mastectomy. Necrotic right and left breast incisions. Seropurulent drainage noted. Left breast: normal in appearance, no masses, skin changes or nipple discharge ?? IMAGING: ?? IMPRESSION /PLAN: 53 y.o. woman who is s/p bilateral mastectomy and post operative wound complication Informed consent is obtained for bilateral debridement and mastectomy incision revision General anesthesia would be used. I describe removing the necrotic tissue, irrigating and re-closure with nylon sutures. A drain tube would be needed.Benefits and risks of infection, bleeding, scarring, deformity, on swelling, nerve damage, need for additional procedures, and recurrence of the tumor in the breast, chest, or elsewhere. I answered all questions posed patient expressed understanding. ?? Jennifer Waters MD FACS documented in this encounter OR Notes * Operative Report - Jennifer Waters MD - 06/08/2018 9:25 AM CDT SURGEON Jennifer Waters MD PREOPERATIVE DIAGNOSIS Breast cancer status post bilateral mastectomy, now with wound breakdown and dehiscence. POSTOPERATIVE DIAGNOSIS Breast cancer status post bilateral mastectomy, now with wound breakdown and dehiscence. OPERATION NAME Debridement and revision of bilateral mastectomy incisions and placement of Fran-Bunch drain ANESTHESIA General endotracheal. ANESTHESIOLOGIST Dr. Malcolm; Diaz Woodward. CARDIAC CATH LAB RADIOLOGY TECHNOLOGIST Hilario Villafana INDICATIONS This is a 53 y.o. woman who is status post bilateral mastectomy. She is obese, and a smoker therefore suffered wound dehiscence and breakdown. Informed consent was obtained from her for debridement of bilateral wounds. Risks, benefits, complications of surgery were discussed with her in great detail. She showed excellent understanding. DESCRIPTION OF PROCEDURE She was brought into the operating room and placed on the table in supine position. After inductionof general anesthesia, with placement of LMA by anesthesia staff, she is prepped with betadine and draped sterilely. Bilateral lower extremity sequential devices were applied. We approached chest. Using a #10 blade, the previous right and left surgical incision is reexcised down to chest wall. The flaps were raised superiorly, towards the clavicle inferiorly, just passed the inframammary crease medially and laterally, and then the necrotic wound was debrided and excised widely. Hemostasis was maintained meticulously in the chest wall. The would was irrigated copiously. The wound edges were then reapproximated using 2-0 and 3-0 nylon interrupted sutures. A #15 Fran-Bunch drain was inserted from the right extending to the left side and secured with 3-0 prolene suture. I then injected 0.5% Marcaine plus epinephrine into the drain site and along the incision. Dressing applied with 4x4s overlying the entire chest, ABDs and a surgical bra. The LMA was removed in the operating room by anesthesia. She tolerated the entire surgery well. The revised right breast incision is 20 cm The revised left breast incision is 20 cm There were no complications. Blood loss was about 40 mL. No specimens were sent. She was taken to PACU in good condition #15 PATO x1 chest documented in this encounter Plan of Treatment Not on file documented as of this encounter Procedures Procedure Name Priority Date/Time Associated Diagnosis Comments ANAEROBIC/AEROBIC CULTURE W GRAM STAIN Routine 06/08/2018 8:19 AM CDT BREAST INCISION AND DRAINAGE 06/08/2018 7:00 AM CDT RIGHT BREAST CA Case Notes ANTHEM OUT OF STATE PP CPT PP documented in this encounter Results * (ABNORMAL) ANAEROBIC/AEROBIC CULTURE W GRAM STAIN (06/08/2018 8:19 AM CDT) CULTURE Scant growth Citrobacter freundii complex(A) LOS MCG/ML 06/13/2018 8:41 AM CDT [facility] CULTURE ENTEROCOCCUS FAECALIS(A) LOS MCG/ML 06/13/2018 8:41 AM CDT [facility] GRAM STAIN No organisms observed 06/13/2018 8:41 AM CDT [facility] GRAM STAIN 1+ (Rare or Occasional) WBC 06/13/2018 8:41 AM T [facility] Lesion/Drainage Fluid RIGHT BREAST STRUCTURE / Unknown Collection / Unknown 06/08/2018 8:19 AM CDT 06/08/2018 1:13 PM CDT Narrative Organism Antibiotic Method Susceptibility Citrobacter freundii complex CEFTRIAXONE LOS MCG/ML <=1 mcg/mL: Susceptible Citrobacter freundii complex CIPROFLOXACIN LOS MCG/ML <=0.25 mcg/mL: Susceptible Citrobacter freundii complex GENTAMICIN LOS MCG/ML <=1 mcg/mL: Susceptible Citrobacter freundii complex PIPERACILLIN/ TAZOBACTAM LOS MCG/ML <=4 mcg/mL: Susceptible Citrobacter freundii complex TRIMETHOPRIM/ SULFAMETHOXAZOLE LOS MCG/ML <=20 mcg/mL: Susceptible Citrobacter freundii complex CEFTAZIDIME LOS MCG/ML <=1 mcg/mL: Susceptible Citrobacter freundii complex CEFOXITIN LOS MCG/ML 32 mcg/mL: Resistant Enterococcus faecalis VANCOMYCIN LOS MCG/ML 1 mcg/mL: Susceptible Enterococcus faecalis AMPICILLIN LOS MCG/ML <=2 mcg/mL: Susceptible Enterococcus faecalis GENTAMICIN HIGH LE LAURIE SYNERGY LOS MCG/ML Susceptible Jennifer Waters MD MICROBIOLOGY - GENER AL ORDERABLES [facility] [employer] [facility] CLIA# [id number] [address] [place] [address] documented in this encounter Visit Diagnoses Diagnosis Chewing tobacco dependence Tobacco use disorder documented in this encounter Administered Medications Inactive Administered Medications - up to 3 most recent administrations Medication Order MAR Action Action Date Dose Rate Site diphenhydrAMINE (BENADRYL) injection 12.5 mg 12.5 mg, IV, POST-PROCEDURE ONCE PRN, 2 doses, Starting on Mon06/08/18 at 0703, Until Mon06/08/18 at 1302, Nausea/Emesis, Routine, PACU lactated Ringers solution IV, at 150 mL/hr, PRE-PROCEDURE CONTINUOUS, Starting on Mon06/08/18 at 0645, Until Mon06/08/18 at 1302, Routine, Pre-op New Bag 06/08/2018 8:42 AM CDT New Bag 06/08/2018 7:00 AM CDT 150 mL/hr lactated Ringers solution IV, at 125 mL/hr, POST-PROCEDURE CONTINUOUS, Starting on Mon06/08/18 at 0715, Until Mon06/08/18 at 1302, Routine, PACU Rate Verify 06/08/2018 9:00 AM CDT 125 mL/hr lidocaine PF 2 % (XYLOCAINE MPF) injection 0.3 mL 0.3 mL, Infiltration, PRE-PROCEDURE ONCE, Starting on Mon06/08/18 at 0632, Until Mon06/08/18 at 1302, Routine, Pre-op morphine injection 2 mg 2 mg, IV, POST-PROCEDURE Q 5 MINUTES PRN, 10 doses, Starting on Mon06/08/18 at 0703, Until Mon06/08/18 at 1302, Pain, For pain 2-10, Routine, PACU morphine injection 4 mg 4 mg, IV, POST-PROCEDURE Q 5 MINUTES PRN, 2 doses, Starting on Mon06/08/18 at 0703, Until Mon06/08/18 at 1302, Pain, Moderate, For pain scale 4-6, Routine, PACU morphine injection 5 mg 5 mg, IV, POST-PROCEDURE Q 5 MINUTES PRN, 2 doses, Starting on Mon06/08/18 at 0703, Until Mon06/08/18 at 1302, Pain, Severe, For pain scale 7-10, Routine, PACU ondansetron (ZOFRAN) 4 mg/2 mL injection 4 mg 4 mg, IV, POST-PROCEDURE ONCE PRN, 1 dose, Starting on Mon06/08/18 at 0703, Until Mon06/08/18 at 1302, Nausea/Emesis, Routine, PACU documented in this encounter Active and Recently Administered Medications Times are shown in CDT. Scheduled Medication Order 06/06/2018 06/07/2018 06/08/2018 ceFAZolin in sterile water (ANCEF) 2 gram/20 mL IV Syringe (PREMIX) 2,000 mg (COMPLETED) 2,000 mg, IV, PRE-PROCEDURE ONCE, 1 dose, Starting on Mon06/08/18 at 0642, Until Mon06/08/18 at 0808, Routine, Antibiotic Indication: Surgical prophylaxis 0758 (Given - Provid er: ARA Sheets)0808 (Stopped - Provider: ARA Sheets) lidocaine PF 2 % (XYLOCAINE MPF) injection 0.3 mL 0.3 mL, Infiltration, PRE-PROCEDURE ONCE, Starting on Mon06/08/18 at 0632, Until Mon06/08/18 at 1302, Routine, Pre-op Continuous Medication Order 06/06/2018 06/07/2018 06/08/2018 lactated Ringers solution IV, at 150 mL/hr, PRE-PROCEDURE CONTINUOUS, Starting on Mon06/08/18 at 0645, Until Mon06/08/18 at 1302, Routine, Pre-op 0700 (New Bag - Prov ider: Mandy Marin RN)0842 (New Bag - Provider: ARA Sheets) lactated Ringers solution IV, at 125 mL/hr, POST-PROCEDURE CONTINUOUS, Starting on Mon06/08/18 at 0715, Until Mon06/08/18 at 1302, Routine, PACU 0900 (Rate Verify - Provider: Nkechi Parks RN)1032 (Stopped - Provider: Nkechi Parks RN) PRN Medication Order 06/06/2018 06/07/2018 06/08/2018 bupivacaine 0.5 % (SENSORCAINE,MARCAINE) injection (CANCELED) INTRA-PROCEDURE PRN, Starting on Mon06/08/18 at 0852, Until Mon06/08/18 at 0853, Routine, Anesthesia Intra-op 0852 (Given - Provid er: Jennifer Waters MD) diphenhydrAMINE (BENADRYL) injection 12.5 mg 12.5 mg, IV, POST-PROCEDURE ONCE PRN, 2 doses, Starting on Mon06/08/18 at 0703, Until Mon06/08/18 at 1302, Nausea/Emesis, Routine, PACU morphine injection 2 mg 2 mg, IV, POST-PROCEDURE Q 5 MINUTES PRN, 10 doses, Starting on Mon06/08/18 at 0703, Until Mon06/08/18 at 1302, Pain, For pain 2-10, Routine, PACU morphine injection 4 mg 4 mg, IV, POST-PROCEDURE Q 5 MINUTES PRN, 2 doses, Starting on Mon06/08/18 at 0703, Until Mon06/08/18 at 1302, Pain, Moderate, For pain scale 4-6, Routine, PACU morphine injection 5 mg 5 mg, IV, POST-PROCEDURE Q 5 MINUTES PRN, 2 doses, Starting on Mon06/08/18 at 0703, Until Mon06/08/18 at 1302, Pain, Severe, For pain scale 7-10, Routine, PACU ondansetron (ZOFRAN) 4 mg/2 mL injection 4 mg 4 mg, IV, POST-PROCEDURE ONCE PRN, 1 dose, Starting on Mon06/08/18 at 0703, Until Mon06/08/18 at 1302, Nausea/Emesis, Routine, PACU documented in this encounter Care Teams Billing Collections Specialist Relationship Specialty Start Date End Date Emerson Allen MD [address] [place] [id number] PCP - General Family Practice 04/27/18 documented as of this encounter
--- OUTSIDE RECORDS SUMMARY | 2024-10-13 04:23 | XMS_ITS | Encounter Summary ---
Author Organization [facility] Address [address] [place] [address] Care Team Providers Care Senior Systems Engineer Name Role Phone Emerson Allen MD Primary Care Provider Encounter Details Date Type Department Care Team (Latest Contact Info) Description 08/31/2005 Outpatient Historical HIS CARD DRUM STOCK CLERK Basilio Matthew MD [address] [facility] [address] [place] [address] ATHEROSCLER ART INUPIAT EXTREM UNSP (Primary Dx) Social History Tobacco Use Types Packs/Day Years Used Date Smoking Tobacco: Never Assessed Sex and Gender Information Value Date Recorded Sex Assigned at Not on file Gender Identity Not on file Sexual Orientation Not on file documented as of this encounter Plan of Treatment Not on file documented as of this encounter Procedures Procedure Name Priority Date/Time Associated Diagnosis Comments POC ACTIVATED CLOTTING TIME Routine 08/31/2005 10:52 AM STEAM PRESSURE CHAMBER OPERATOR PT AND APTT Routine 08/31/2005 6:00 AM STEAM PRESSURE CHAMBER OPERATOR PLATELET COUNT Routine 08/31/2005 6:00 AM STEAM PRESSURE CHAMBER OPERATOR BUN Routine 08/31/2005 6:00 AM STEAM PRESSURE CHAMBER OPERATOR CREATININE Routine 08/31/2005 6:00 AM STEAM PRESSURE CHAMBER OPERATOR documented in this encounter Results * POC ACTIVATED CLOTTING TIME (08/31/2005 10:52 AM STEAM PRESSURE CHAMBER OPERATOR) ACT POC 139 Seconds INTERFACE SYSTEM Comment: Normal Donors range ??113-149 Non-heparin patients ??89-169 ACT value for sheath pull at [facility] has been established to be < or = to 1 70. ??(See also Nursing Procedures for sheath pull in related nursing areas) 08/31/2005 10:5 2 AM STEAM PRESSURE CHAMBER OPERATOR Basilio Matthew MD POINT OF CARE TESTIN G Performing Organization Address [facility] Phone Number INTERFACE SYSTEM Refer to clinic/hospital department * BUN (08/31/2005 6:00 AM STEAM PRESSURE CHAMBER OPERATOR) BUN 13 6 - 20 mg/dL INTERFACE SYSTEM 08/31/2005 6:00 AM STEAM PRESSURE CHAMBER OPERATOR Basilio Matthew MD CHEMISTRY ORDERABLES Performing Organization Address [facility] Phone Number INTERFACE SYSTEM Refer to clinic/hospital department * CREATININE (08/31/2005 6:00 AM STEAM PRESSURE CHAMBER OPERATOR) CREATININE 0.9 0.4 - 1.2 mg/dL INTERFACE SYSTEM 08/31/2005 6:00 AM STEAM PRESSURE CHAMBER OPERATOR Basilio Matthew MD CHEMISTRY ORDERABLES Performing Organization Address [facility] Phone Number INTERFACE SYSTEM Refer to clinic/hospital department * PLATELET COUNT (08/31/2005 6:00 AM STEAM PRESSURE CHAMBER OPERATOR) PLATELETS 206 140 - 350 K/uL INTERFACE SYSTEM MPV 9.9 9.3 - 12.4 fL INTERFACE SYSTEM 08/31/2005 6:00 AM STEAM PRESSURE CHAMBER OPERATOR Basilio Matthew MD HEMATOLOGY ORDERABLE S Performing Organization Address [facility] Phone Number INTERFACE SYSTEM Refer to clinic/hospital department * PT AND APTT (08/31/2005 6:00 AM STEAM PRESSURE CHAMBER OPERATOR) PROTIME 13.6 12.7 - 15.1 Seconds INTERFACE SYSTEM Comment: Note new reference range effective 05. INR therapeutic range is not affected. INR 0.9 0.9 - 1.1 INTERFACE SYSTEM Comment: INR Therapeutic Range: Adult: 2.0 - 3.0 for pulmonary embolism or prophylaxis against venous thrombosis or systemic embolization. 2.0 - 3.0 for patients with tissue heart valves. ?? 2.5 - 3.5 for patients with mechanical heart valves or post CA. Pediatric ??(12 years and under): 1.5 - 3.0 Although the target range in children is not well established , INR values of 1.5 - 3.0 are recommended for most patients. Higher values have been used in children with prosthetic cardiac valves and hereditary clotting disorders. (<3 days) therapeutic ranges have not been established. PTT 27.9 24.4 - 36.4 Seconds INTERFACE SYSTEM Comment: PTT Therapeutic Range: Heparin Level ? PTT (seconds) <0.10 units/mL ? <53 0.10 - 0.30 units/mL ? 53 - 67 0.30 - 0.70 units/mL* ?67 - 95* 0.70 - 1.00 units/mL ?95 - 116 *corresponds to therapeutic range for unfractionated heparin Note changes in PTT reference and therapeutic ranges effective 08/16/2005 . Refer to updated heparin nomogram. 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
--- OUTSIDE RECORDS SUMMARY | 2024-10-13 04:23 | XMS_ITS | Encounter Summary ---
Author Organization [facility] Address [address] [place] [address] Care Team Providers Care Education Reporter Name Role Phone Emerson Allen MD Primary Care Provider Reason for Visit * Auth/Cert Specialty Diagnoses / Procedures Referred By Denton pickard Referred To Contact Laboratory [facility] Outpatient Laboratory [facility] [address] [place] [address] Referral ID Status Reason Start Date Expiration Date Visits Re quested Visits Authorized [id number] 1 1 Encounter Details Date Type Department Care Team (Latest Contact Info) Description 04/27/2018 1:10 PM CDT - 04/27/2018 11:59 PM T Hospital Encounter [facility] [address] [place] [address] Jennifer Waters MD [address] [place] [phone] Discharge Disposition: Home or Self Care Social History Tobacco Use Types Packs/Day Years Used Date Smoking Tobacco: Former Cigarettes 1 35 Smokeless Tobacco: Never Alcohol Use Standard Drinks/Week Comments Yes 0 (1 standard drink = 0.6 oz pur e alcohol) rarely Sex and Gender Information Value Date Recorded Sex Assigned at Not on file Gender Identity Not on file Sexual Orientation Not on file documented as of this encounter Medications at Time of Discharge Medication Sig Dispensed Refills Start Date End Date atorvastatin (LIPITOR) 40 mg tablet Take 40 [...] HEADACHE RETURNS. 12/13/2017 fluticasone (FLONASE) 50 mcg/spray [place], Suspension Administer 2 Sprays in each nostril 1 time daily as needed . 06/14/2017 06/14/2018 clopidogrel (PLAVIX) 75 mg Tablet TK 1 T PO ONCE A DAY 2 04/04/2018 018 documented as of this encounter Plan of Treatment Not on file documented as of this encounter Procedures Procedure Name Priority Date/Time Associated Diagnosis Comments XR CHEST PA AND LATERAL 2 VW Routine 04/27/2018 1:38 PM CDT Lobular carcinoma in situ (LCIS) of right breast EKG 12-LEAD Routine 04/27/2018 1:25 PM CDT documented in this encounter Results * XR CHEST PA AND LATERAL 2 VW (04/27/2018 1:38 PM CDT) Anatomical Region Laterality Modality Chest Computed Radiogr aphy 04/27/2018 1:38 PM CDT Impressions 04/27/2018 1:41 PM CDT IMPRESSION: 1. ??Normal chest x-ray. DICTATION LOCATION: Location - [facility] Narrative 04/27/2018 1:41 PM CDT XR CHEST PA AND LATERAL 2 VW DATE: 04/27/2018 1:38 PM HISTORY: . ?? Lobular carcinoma in situ (LCIS) of right breast COMPARISON: None. FINDINGS: ??Lungs are normal without consolidation, effusion or pneumothorax. ??Heart size and mediastinal contour are normal. Cholecystectomy. Procedure Note Chuck Gao MD - 04/27/2018 XR CHEST PA AND LATERAL 2 VW DATE: 04/27/2018 1:38 PM HISTORY: . Lobular carcinoma in situ (LCIS) of right breast COMPARISON: None. FINDINGS: Lungs are normal without consolidation, effusion or pneumothorax. Heart size and mediastinal contour are normal. Cholecystectomy. IMPRESSION: 1. Normal chest x-ray. DICTATION LOCATION: Location 2 - [facility] Jennifer Waters MD DIAGNOSTIC IMAGING O RDERABLES * EKG 12-LEAD (04/27/2018 1:25 PM CDT) 04/27/2018 1:25 PM CDT Narrative INTERFACE SYSTEM - 04/29/2018 11:06 AM CDT ? Stationary ECG Study ? [facility] ? Test Date: ?04/27/2018 1:25 PM Pat Name: ? MOSHE ODILIA ?Department: ?? 2 ? Room: ? Gender: ? F ?Shed Boss: ?? mwamnn : ?1965 ? Requested By: JENNIFER Hayward Order Number: [id number] ?Michaela PIERRE: ?? Albert Saavedra ? Measurements Intervals ?[place] ? Rate: ? 63 ? P: ?32 NE: ? 144 ?QRS: ?41 QRSD: ? 75 ? T: ?58 QT: ? 416 ? QTc: ?427 ? Interpretive Statements ? SINUS RHYTHM NONSPECIFIC T-WAVE ABNORMALITY Electronically Signed On 04-29-2018 11:06:08 CDT by Albert Saavedra Procedure Note Albert Saavedra MD - 12/15/2021 Stationary ECG Study [facility] Test Date: 04/27/2018 1:25 PM Pat Name: MOSHE HARTLEY Department: 2 Room: Gender: F Shed Boss[facility] 1965 Requested By: JENNIFER Hayward Order Number: [id number] Michaela MD: Albert Saavedra Measurements Intervals [place] Rate: 63 P: 32 NE: 144 QRS: 41 QRSD: 75 T: 58 QT: 416 QTc: 427 Interpretive Statements SINUS RHYTHM NONSPECIFIC T-WAVE ABNORMALITY Electronically Signed On 04-29-2018 11:06:08 CDT by Albert Saavedra Jennifer Waters MD ECG ORDERABLES INTERFACE SYSTEM Refer to clinic/hospital department documented in this encounter Visit Diagnoses Diagnosis Lobular carcinoma in situ (LCIS) of right breast documented in this encounter Care Teams Education Reporter Relationship Specialty Start Date End Date Emerson Allen MD [address] [place] [phone] PCP - General Family Practice 04/27/18 documented as of this encounter
--- OUTSIDE RECORDS SUMMARY | 2024-10-13 04:23 | XMS_ITS | Encounter Summary ---
Author Organization [facility] Address [address] [place] [address] Care Team Providers Care Youth Nutritional Monitor Name Role Phone Emerson Allen MD Primary Care Provider Encounter Details Date Type Department Care Team (Latest Contact Info) Description 08/09/2005 Outpatient Historical HIS CARDIOPULMONARY Basilio Matthew MD [address] [facility] [address] [place] [address] PERIPH VASCULAR [...] Primary documented in this encounter Care Teams Youth Nutritional Monitor Relationship Specialty Start Date End Date Emerson Allen MD [address] [place] [phone] PCP - General Family Practice 04/27/18 documented as of this encounter
--- OUTSIDE RECORDS SUMMARY | 2024-10-13 04:23 | XMS_ITS | Encounter Summary ---
Author Organization [facility] Address [address] [place] [address] Care Team Providers Care Finish Specialist Name Role Phone Emerson Allen MD Primary Care Provider Encounter Details Date Type Department Care Team (Latest Contact Info) Description 06/21/2007 Outpatient Historical HIS CARDIOPULMONARY Basilio Matthew MD [address] [facility] [address] [place] [address] Unspecified Peripheral [...] Primary documented in this encounter Care Teams Finish Specialist Relationship Specialty Start Date End Date Emerson Allen MD [address] [place] [phone] PCP - General Family Practice 04/27/18 documented as of this encounter
--- OUTSIDE RECORDS SUMMARY | 2024-10-13 04:23 | XMS_ITS | Encounter Summary ---
Author Organization [facility] Address [address] [place] [address] Care Team Providers Care Panama Hat Smearer Name Role Phone Emerson Allen MD Primary Care Provider Encounter Details Date Type Department Care Team (Late st Contact Info) Description 02/09/2006 Outpatient Historical [facility] Supp Svcs Blood Flow [address] [place] [address] Jacob Ramos MD [address] [facility] [address] [place], [place] [phone] Social History Tobacco Use Types Packs/Day Years Used Date Smoking Tobacco: Never Assessed Sex and Gender Information Value Date Recorded Sex Assigned at Not on file Gender Identity Not on file Sexual Orientation Not on file documented as of this encounter Plan of Treatment Not on file documented as of this encounter Visit Diagnoses Not on filedocumented in this encounter Care Teams Panama Hat Smearer Relationship Specialty Start Date End Date Emerson Allen MD [address] [place] [phone] PCP - General Family Practice 04/27/18 documented as of this encounter
--- OUTSIDE RECORDS SUMMARY | 2024-10-13 04:23 | XMS_ITS | Encounter Summary ---
Author Organization [facility] Address [address] [place] [address] Care Team Providers Care State Epidemiologist Name Role Phone Emerson Allen MD Primary Care Provider Reason for Visit * Auth/Cert Specialty Diagnoses / Procedures Referred By Denton t Referred To Contact Diagnoses Lobular carcinoma in situ of right breast RIGHT BREAST CA Procedures AK BREAST SURGERY PROCEDURE UNLISTED AK REPR CMPL WND TRUNK 2.6-7.5CM Right Debridement and Revision of Mastectomy Jennifer Waters MD [address] [place] [phone] Referral ID Status Reason Start Date Expiration Date Visits Re quested Visits Authorized [id number] 06/06/2018 1 1 Encounter Details Date Type Department Care Team (Late st Contact Info) Description 06/08/2018 7:50 AM CDT Anesthesia Event [facility] [address] [place] [address] Abhinav Malcolm MD [address] [place] [address] Maggie Smith MD NO ADDRESS ON FILE Anesthesia Record Procedure Summary Procedure Name Responsible Anesthesiologist Anesthesia Start Time Anesthesia Stop Time BREAST INCISION AND DRAINAGE--ACTUAL DEBRIDEMENT AND REVISION OF BILATERAL MASTECTOMY, DRAIN PLACEMENT (Bilateral: Breast) Abhinav Malcolm MD 06/08/18 0750 06/08/18 0858 Events Date Time Event Comment 06/08/2018 0703 0750 AN Equip Check Anesthesia eq uipment and materials checked in accordance with local policy. 0750 An Start 0750 An Start Data 0751 Pre-Induction Immediate pre- induction anesthetic assessment performed. Vital signs as noted on graphic. 0754 An Induction 0756 An LMA 0758 Anesthesia Ready 0846 Supraglottic Removed Spontan eous respirations. LMA discontinued without difficulty. Oropharynx suctioned as indicated. 0853 an stop data 0858 An Stop Meds Name Total midazolam PF (VERSED) 1 mg/mL injection 2 mg fentaNYL (SUBLIMAZE) PF 50??mcg/mL injec tion 50 mcg lidocaine PF (XYLOCAINE MPF) 2% injectio n 4 mL propofol (DIPRIVAN) 10??mg/mL injection 200 mg propofol (DIPRIVAN) 10??mg/mL injection 75.14 mg dexamethasone (DECADRON) 4 mg/mL injecti on 4 mg famotidine PF (PEPCID) 20mg/2 mL injecti on 20 mg diphenhydrAMINE (BENADRYL) 50 mg/mL inje ction 12.5 mg ondansetron (ZOFRAN) 4??mg/2 mL injectio n 4 mg ceFAZolin in sterile water (ANCEF) 2 gra m/20 mL IV Syringe (PREMIX) 2,000 mg 2,000 mg HYDROmorphone PF (DILAUDID) 2 mg/mL inje ction 0.4 mg lactated Ringers solution 1,000 mL * Agents Name Sevoflurane % Sevoflurane O2 N2O Inspired N2O O2 * Blood [...] Fr 05/16/18 1242 by Denise You RN Wound 06/08/18; 0831; No; 1; Right; breast; surgical 06/08/18 0831 by Rola Benoit RN Wound 06/08/18; 0832; No; 2; Left; breast; surgical 06/08/18831 by Rola Benoit, RN Drain Present on Admission : No; Tube Number: #1; Orientation: Right:; Location: chest; Type: Fran-Bunch; Size (Fr): 15 Fr 06/08/18832 by Rola Benoit RN Peripheral IV Pre-Hospital Start: No; Orientation: Left; Location: Hand; Device: Angiocath; Gauge: 20 gauge; Needle Length: 1.25 in length; Insertion Attempts: 1; Patient Tolerance: tolerated well; Pain Prevention: distraction; Removal Indication: no longer indicated, removed per policy; Removal Interventions: direct pressure, catheter intact 06/08/18 0659 by Mandy Marin RN 06/08/18 1033 by Nkechi Parks RN Supraglottic Airway Mask Jameel: ventilated by mask; Type: LMA; Size: 4; Attempts: 1; Confirmation: satisfactory chest rise, SAO2, end tidal CO2 06/08/18 0756 by Amy Woodward AA-C 06/08/18 0846 by Amy Woodward AA-C documented in this encounter Social History Tobacco [...] OR Notes * Anesthesia Postprocedure Evaluation - Abhinav Malcolm MD - 06/08/2018 10:04 AM CDT Phase II Postanesthesia Evaluation Including [facility] Modified [facility] Score Patient seen and evaluated: [facility] Modified Estelle Score: Score: 18 (06/08/18928) COMMENTS: No apparent Anesthesia related complications RESPIRATORY FUNCTION: Respiration: able to breath and cough freely (06/08/18928) [2=able to breathe and cough freely, 1=dyspnea, limited breathing or tachypnea, 0=apnea or mechanicventilator] O2 Saturation: able to maintain O2 saturation greater than 92% on room air (06/08/18928) [2=able to maintain O2 saturation greater than 92% on room air, 1=needs O2 inhalation to maintain O2 saturation greater than 90%, 0=O2 saturation less than 90% even with O2 supplement] Resp: 16 (06/08/18 1000)SpO2: 96 % (06/08/18 1000) CARDIOVASCULAR FUNCTION: Heart Rate: 68 bpm (06/08/18 1000) BP: 134/71 (06/08/18 1000) Circulation: BP within 20% of preanesthetic level (06/08/18928) [2=BP within 20% of preanesthetic level, 1=BP within 20-49% of preanesthetic level, 0=BP within 50%of preanesthetic level] MENTAL STATUS, NEURO, ACTIVITY: PATIENT PARTICIPATION IN EVALUATIONyes Consciousness: arousable on calling (06/08/18928) [2=fully awake, 1=arousable on calling, 0=not responding] Activity: able to move 4 extremities voluntarily or on command (06/08/18928) [2=able to move 4 extremities voluntarily or on command, 1=able to move 2 extremities voluntarily or on command, 0=unable to move extremities voluntarily or on command] Ambulation: vertigo when erect (06/08/18928) [2=able to stand up and walk straight, on ordered bedrest, or performing at patient's prior level of function, 1=vertigo when erect, 0=dizziness when supine] TEMPERATURE: Temp: 36.3 ??C (06/08/18 08) PAIN: Pain: pain free (06/08/18928) [2=pain free, 1=pain handled by oral medication, 0=pain requiring parenteral medication] NAUSEA AND VOMITING: no nausea and no vomiting Fasting/Feeding: able to drink fluids, ice chips or NPO (06/08/18928) [2=able to drink fluids, ice chips or NPO, 1=nauseated, 0=nausea and vomiting] POSTOPERATIVE HYDRATION: well hydrated Intake/Output Summary (Last 24 hours) at 06/08/18 1004 Last data filed at 06/08/18 0842 Gross per 24 hour Intake 1000 ml Output 0 ml Net 1000 ml Urine Output: has voided, adequate urine output per device, or not applicable (06/08/18928) [2=has voided, adequate urine output per device, or not applicable, 1=unable to void but comfortable, 0=unable to void and uncomfortable] WOUND: Dressing: dry and clean or not applicable (06/08/18928) [2=dry and clean or not applicable, 1=wet, marked and not increasing, 0=growing area of wetness] Abhinav Malcolm MD 06/08/2018 10:04 AM Abhinav Malcolm MD * Anesthesia Handoff - Amy Zazueta AA-C - 06/08/2018 8:58 AM CDT Post-Anesthetic transfer of care report elements [...] questions and acknowledgement of understanding. Vital Signs: BP: 143/77 (06/08/2018 8:54 AM) Pulse: 75 (06/08/2018 6:39 AM) Heart Rate: 73 bpm (06/08/2018 8:54 AM) Temp: 36.3 ??C (06/08/2018 8:54 AM) Resp: 13 (06/08/2018 8:54 AM) SpO2: 100 % (06/08/2018 8:54 AM) 8:58 AM ARA Sheets * Anesthesia Preprocedure Evaluation - Abhinav Malcolm MD - 06/08/2018 6:58 AM CDT Relevant Problems No relevant active problems Anesthesia Evaluation Anesthesia Plan ASA 3 General Intravenous induction Supraglottic airway maintenance NPO status > 8 hours Anesthetic plan and risks discussed with Patient. Plan discussed with Anesthesiologist Parking Station Attendant. Post-op Pain Control Plan to use IV or IM medication for post-op pain control. Plan for postoperative opioid use Smoking Compliance Patient did not smoke on day of surgery Pre-Anesthesia Evaluation - Long Form 06/08/2018 6:58 AM Name: Mirtha HARTLEY Age: 53 y.o. Sex: female CSN: [id number] Allergies Allergen Reactions ??? Iodine Itching ??? Adhesive Rash Reaction: Rash, ??? Codeine Other (See Comments), Unknown and Nausea and Vomiting Other reaction(s): Unknown Other reaction(s): Nausea Only Reaction: Nausea, Prescriptions Prior to Admission Medication Sig Dispense Refill Last Dose ??? atorvastatin (LIPITOR) 40 mg tablet Take 40 mg by mouth daily . 06/07/2018 at Unknown time ??? coenzyme Q10 200 mg Capsule Take 200 mg by mouth daily . Past Week at Unknown time ??? omeprazole (PriLOSEC) 40 mg Capsule, Delayed Release(E.C.) Take 40 mg by mouth daily . 3 Past Week at Unknown time ??? SUMAtriptan (IMITREX) 50 mg tablet TAKE 1 TABLET BY MOUTH EARLY POSSIBLE AFTER ONSET OF MIGRAINE. MAY REPEAT AFTER 2 HOURS IF HEADACHE RETURNS. Past Week at Unknown time ? ? cephALEXin (KEFLEX) 500 mg capsule TK 1 C PO QID X 10 DAYS 0 > Month at Unknown time ??? oxyCODONE-acetaminophen (PERCOCET) 5-325 mg tablet Take 1 Tablet by mouth every 6 hours as needed for Pain. Max Daily Amount: 4 Tablets 30 Tablet 0 > Month at never taken ??? albuterol HFA 90 mcg inhaler Take 2 Puffs by inhalation every 6 hours as needed for Shortness of Breath. > Month at Unknown time ??? fluticasone (FLONASE) 50 mcg/spray Holly, Suspension Administer 2 Sprays in each nostril 1 timedaily as needed . > Month at Unknown time ? ? Lactobacillus acidophilus 10 billion cell Capsule Take 1 capsule by oral route every day > Month at Unknown time ? ? loratadine (CLARITIN) 10 mg tablet Take 10 mg by mouth 1 time daily as needed . > Month at Unknown time Current Facility-Administered Medications Medication Dose Route Frequency Provider Last Rate Last Dose ??? lactated Ringers solution IV Pre-Proc Continuous Jennifer Waters MD ??? lidocaine PF 2 % (XYLOCAINE MPF) injection 0.3 mL 0.3 mL Infiltration Pre- Proc Once Jennifer Waters MD ??? ceFAZolin in sterile water (ANCEF) 2 gram/20 mL IV Syringe (PREMIX) 2,000 mg 2,000 mg IV Pre-Proc Once Jennifer Waters MD Patient Active Problem List Diagnosis Date Noted ??? Chewing tobacco dependence 06/08/2018 ??? S/P bilateral mastectomy 05/16/2018 ??? Lobular carcinoma in situ (LCIS) of right breast 12/26/2017 Overview Note: [facility] Past Medical History: Diagnosis Date ??? Asthma ??? CAD (coronary artery disease) ??? GERD (gastroesophageal reflux disease) ??? Hyperlipidemia ??? Lobular carcinoma in situ (LCIS) of right breast 12/26/2017 [facility] ??? Post-operative nausea and vomiting Past Surgical History: Procedure Laterality Date ??? BIOPSY BREAST Right 12/2017 ??? HX BUNIONECTOMY 2017 ??? HX ENDOSCOPIC EXTRALARYNGEAL VOCAL CORD LATERALIZATION W/ MLB 2013 ??? HX GALLBLADDER SURGERY 1997 ??? AK BIOPSY/EXCISION, LYMPH NODE(S) Bilateral 05/16/2018 RIght and left SENTINEL LYMPH NODE BIOPSY BLUE DYE ONLY performed by Jennifer Waters MD at [facility] OR [facility] ??? AK MASTECTOMY, SIMPLE, COMPLETE Bilateral 05/16/2018 RIght and Left prophylactic MASTECTOMY TOTAL performed by Jennifer Waters MD at [facility] OR [facility] Social History Substance Use Topics ??? Smoking status: Current Every Day Smoker Packs/day: 0.50 Years: 35.00 Types: Cigarettes ??? Smokeless tobacco: Never Used ??? Alcohol use Yes Comment: rarely Family History Problem Relation Age of Onset ??? Throat Cancer Father 56 ??? Lung Cancer Father ??? Breast Cancer Paternal Grandmother Previous Anesthesia Problems/Concerns: No anesthesia problems/complications History of PONV yes Review of Systems Cardiovascular: negative Respiratory: tobacco abuse, hx asthma currently not using inhalers Gastroenterology: negative PHYSICAL EXAM BP 124/62 (BP Location: Left leg, Patient Position (BP): Supine) Pulse 75 Temp 36.9 ??C (Temporal) Resp 23 Ht 5' 1 (1.549 m) Wt 69.9 kg (154 lb) SpO2 99% BMI 29.10 kg/m?? Weight: Weight: 69.9 kg (154 lb) (06/08/18 0639) Height: Ht Readings from Last 1 Encounters: 06/08/18 5' 1 (1.549 m) BMI: Body mass index is 29.1 kg/m??. Airway: normal range of motion: Airway Class: I ; None Lungs: clear to auscultation bilaterally, normal respiratory effort Heart: regular rate and rhythm, S1, S2 normal, no murmur, click, rub or gallop Neuro: alert, oriented x 3, no defects noted in general exam. Vascular Access: Peripheral Line LABS Lab Results Component Value Date/Time WBC 8.7 04/27/2018 01:11 PM HEMOGLOBIN 14.3 04/27/2018 01:11 PM HEMATOCRIT 41.4 04/27/2018 01:11 PM PLATELETS 220 04/27/2018 01:11 PM MCV 89.2 04/27/2018 01:11 PM Lab Results Component Value Date/Time SODIUM 139 04/27/2018 01:11 PM POTASSIUM 4.3 04/27/2018 01:11 PM CHLORIDE 103 04/27/2018 01:11 PM CO2 24 04/27/2018 01:11 PM CALCIUM 9.4 04/27/2018 01:11 PM BUN 10 04/27/2018 01:11 PM CREATININE 0.75 04/27/2018 01:11 PM GLUCOSE 86 04/27/2018 01:11 PM ANION GAP 12 04/27/2018 01:11 PM Lab Results Component Value Date/Time INR 0.9 01/08/2008 07:08 AM PROTIME 12.7 01/08/2008 07:08 AM No results found for: HCGURPOC, HCGQUALUR, HCGQUAL, HCGQUANT, HCGINTACT No results found for: GLUCPOC EKG: none indicated today Other Studies/Considerations: None Postop pain management discussed yes Smoking/Tobacco Counseling: None Recommendations: None ASA Physical Status: ASA 3 - Patient with moderate systemic disease with functional limitations I have seen and examined this patient and confirm that all data is current and accurate. Yes Choice of Anesthesia/Anesthesia Plan: Proceed and General I have discussed the anesthetic options and the risks/benefits with the patient/family. Questions have been solicited and answered. Yes Abhinav Malcolm MD documented in this encounter Plan of [...] at 0808, Routine, Antibiotic Indication: Surgical prophylaxis Given 06/08/2018 7:58 AM CDT 2,000 mg dexamethasone (DECADRON) injection INTRA-PROCEDURE PRN, Starting on Mon06/08/18 at 0803, Until Mon06/08/18 at 0859, Routine, Anesthesia Intra-op Given 06/08/2018 8:03 AM CDT 4 mg diphenhydrAMINE (BENADRYL) injection INTRA-PROCEDURE PRN, Starting on Mon06/08/18 at 0805, Until Mon06/08/18 at 0859, Routine, Anesthesia Intra-op Given 06/08/2018 8:05 AM CDT 12.5 mg famotidine PF (PEPCID) 20 mg/2 mL injection INTRA-PROCEDURE PRN, Starting on Mon06/08/18 at 0804, Until Mon06/08/18 at 0859, Routine, Anesthesia Intra-op Given 06/08/2018 8:04 AM CDT 20 mg fentaNYL PF (SUBLIMAZE) 50 mcg/mL injection INTRA-PROCEDURE PRN, Starting on Mon06/08/18 at 0752, Until Mon06/08/18 at 0859, Pain (See admin instructions), Routine, Anesthesia Intra-op Given 06/08/2018 7:52 AM CDT 50 mcg HYDROmorphone (PF) (DILAUDID) injection INTRA-PROCEDURE PRN, Starting on Mon06/08/18 at 0824, Until Mon06/08/18 at 08, Pain (See admin instructions), Routine, Anesthesia Intra-op Given 06/08/2018 8:24 AM CDT 0.4 mg lactated Ringers solution IV, at 150 mL/hr, PRE-PROCEDURE CONTINUOUS, Starting on Mon06/08/18 at 0645, Until Mon06/08/18 at 1302, Routine, Pre-op New Bag 06/08/2018 8:42 AM CDT New Bag 06/08/2018 7:00 AM CDT 150 mL/hr lidocaine PF 2 % (XYLOCAINE MPF) injection INTRA-PROCEDURE PRN, Starting on Mon06/08/18 at 0754, Until Mon06/08/18 at 0859, Other (See Comment), Routine, Anesthesia Intra-op Given 06/08/2018 7:54 AM CDT 4 mL midazolam (PF) (VERSED) injection INTRA-PROCEDURE PRN, Starting on Mon06/08/18 at 0750, Until Mon06/08/18 at 0859, Routine, Anesthesia Intra-op Given 06/08/2018 7:50 AM CDT 2 mg ondansetron (ZOFRAN) 4 mg/2 mL injection INTRA-PROCEDURE PRN, Starting on Mon06/08/18 at 0806, Until Mon06/08/18 at 0859, Nausea/Emesis, Routine, Anesthesia Intra-op Given 06/08/2018 8:06 AM CDT 4 mg propofol (DIPRIVAN) injection INTRA-PROCEDURE PRN, Starting on Mon06/08/18 at 0754, Until Mon06/08/18 at 0859, Anesthesia Intra-op Given 06/08/2018 7:54 AM CDT 200 mg propofol (DIPRIVAN) injection INTRA-PROCEDURE CONTINUOUS PRN, Starting on Mon06/08/18 at 0801, Until Mon06/08/18 at 0859, Anesthesia Intra-op New Bag 06/08/2018 8:01 AM CDT 25 mcg/kg/min 10.49 mL/hr documented in this encounter Care Teams State Epidemiologist Relationship Specialty Start Date End Date Emerson Allen MD [address] [place] [phone] PCP - General Family Practice 04/27/18 documented as of this encounter
--- OUTSIDE RECORDS SUMMARY | 2024-10-13 04:23 | XMS_ITS | Encounter Summary ---
Author Organization [facility] Address [address] [place] [address] Care Team Providers Care Tank Charger Name Role Phone Emerson Allen MD Primary Care Provider Encounter Details Date Type Department Care Team (Latest Contact Info) Description 12/20/2007 Outpatient Historical HIS CARDIOPULMONARY Basilio Matthew MD [address] [facility] [address] [place] [address] Unspecified Peripheral Vascular Disease Social History Tobacco Use Types Packs/Day Years Used Date Smoking Tobacco: Never Assessed Sex and Gender Information Value Date Recorded Sex Assigned at Not on file Gender Identity Not on file Sexual Orientation Not on file documented as of this encounter Plan of Treatment Not on file documented as of this encounter Visit Diagnoses Diagnosis Peripheral vascular disease, unspecified documented in this encounter Care Teams Tank Charger Relationship Specialty Start Date End Date Emerson Allen MD [address] [place] [address] [place] [phone] PCP - General Family Practice 04/27/18 documented as of this encounter
--- OUTSIDE RECORDS SUMMARY | 2024-10-13 04:23 | XMS_ITS | Encounter Summary ---
Author Organization [facility] Address [address] [place] [address] Care Team Providers Care Fbi Profiler Name Role Phone Emerson Allen MD Primary Care Provider Encounter Details Date Type Department Care Team (Latest Contact Info) Description 03/15/2006 Outpatient Historical HIS CARD BARK SPUDDER Basilio Matthew MD [address] [facility] [address] [place] [address] Atheroscler-Limb&Cla udic (Primary Dx) Social History Tobacco Use Types [...] Diagnosis Comments POC ACTIVATED CLOTTING TIME Routine 03/15/2006 9:55 AM CDT PT AND APTT Routine 03/15/2006 7:12 AM CDT PLATELET COUNT Routine 03/15/2006 7:12 AM CDT BUN Routine 03/15/2006 7:12 AM CDT CREATININE Routine 03/15/2006 7:12 AM CDT documented in this encounter Results * POC ACTIVATED CLOTTING TIME (03/15/2006 9:55 AM CDT) ACT POC 82 Seconds INTERFACE SYSTEM Comment: Normal Donors range ??113-149 Non-heparin patients ??89-169 ACT value for sheath pull at [facility] has been established to be < or = to 1 70. ??(See also Nursing Procedures for sheath pull in related nursing areas) 03/15/2006 9:55 AM CDT Basilio Matthew MD POINT OF CARE TESTIN G Performing Organization Address [facility] Phone Number INTERFACE SYSTEM Refer to clinic/hospital department * BUN (03/15/2006 7:12 AM CDT) BUN 12 6 - 20 mg/dL INTERFACE SYSTEM 03/15/2006 7:12 AM CDT Basilio Matthew MD CHEMISTRY ORDERABLES Performing Organization Address [facility] Phone Number INTERFACE SYSTEM Refer to clinic/hospital department * CREATININE (03/15/2006 7:12 AM CDT) CREATININE 0.8 0.4 - 1.2 mg/dL INTERFACE SYSTEM 03/15/2006 7:12 AM CDT Basilio Matthew MD CHEMISTRY ORDERABLES Performing Organization Address [facility] Phone Number INTERFACE SYSTEM Refer to clinic/hospital department * PLATELET COUNT (03/15/2006 7:12 AM CDT) PLATELETS 190 140 - 350 K/uL INTERFACE SYSTEM MPV 10.0 9.3 - 12.4 fL INTERFACE SYSTEM 03/15/2006 7:12 AM CDT Basilio Matthew MD HEMATOLOGY ORDERABLE S Performing Organization Address [facility] Phone Number INTERFACE SYSTEM Refer to clinic/hospital department * PT AND APTT (03/15/2006 7:12 AM CDT) PTT 26.4 24.4 - 36.4 Seconds INTERFACE SYSTEM Comment: PTT Therapeutic Range: Heparin Level ? PTT (seconds) <0.10 units/mL ? <53 0.10 - 0.30 units/mL ? 53 - 67 0.30 - 0.70 units/mL* ?67 - 95* 0.70 - 1.00 units/mL ?95 - 116 *corresponds to therapeutic range for unfractionated heparin ?? PROTIME 13.3 12.7 - 15.1 Seconds INTERFACE SYSTEM INR 0.9 0.9 - 1.1 INTERFACE SYSTEM [...] days) therapeutic ranges have not been established. 03/15/2006 7:12 AM CDT Basilio Matthew MD HEMATOLOGY ORDERABLE S INTERFACE SYSTEM Refer to clinic/hospital department documented in this encounter Visit Diagnoses Diagnosis Atherosclerosis of [place] arteries of the extremities with intermittent claudication- Primary documented in this encounter Care Teams Fbi Profiler Relationship Specialty Start Date End Date Emerson Allen MD [address] [place] [phone] PCP - General Family Practice 04/27/18 documented as of this encounter
--- OUTSIDE RECORDS SUMMARY | 2024-10-13 04:23 | XMS_ITS | Encounter Summary ---
Author Organization [facility] Address [address] [place] [address] Care Team Providers Care Sed High School Teacher Name Role Phone Emerson Allen MD Primary Care Provider Encounter Details Date Type Department Care Team (Late st Contact Info) Description 08/09/2005 Outpatient Historical [facility] Supp Svcs Blood Flow [address] [place] [address] Basilio Matthew MD [address] [facility] [address] [place] [address] Social History Tobacco Use Types Packs/Day Years Used Date Smoking Tobacco: Never Assessed Sex and Gender Information Value Date Recorded Sex Assigned at Not on file Gender Identity Not on file Sexual Orientation Not on file documented as of this encounter Plan of Treatment Not on file documented as of this encounter Visit Diagnoses Not on filedocumented in this encounter Care Teams Sed High School Teacher Relationship Specialty Start Date End Date Emerson Allen MD [address] [place] [address] [place] [phone] PCP - General Family Practice 04/27/18 documented as of this encounter
--- OUTSIDE RECORDS SUMMARY | 2024-10-13 04:23 | XMS_ITS | Encounter Summary ---
Author Organization [facility] Address [address] [place] [address] Care Team Providers Care Occasional Babysitter Name Role Phone Emerson Allen MD Primary Care Provider Encounter Details Date Type Department Care Team (Late st Contact Info) Description 06/05/2018 Orders Only [facility] BREAST SURGERY - [place] [address] [facility] [address] [place] [address] Provider, Abstract NO ADDRESS ON FILE Social History Tobacco [...] Name Priority Date/Time Associated Diagnosis Comments MAMMO BREAST US LEFT LTD Routine 01/02/2018 MAMMO STEREOTACTIC BREAST BX RT Routine 01/02/2018 MRI BREAST DIAGNOSTIC WWO CO NTRAST BILATERAL Routine 01/01/2018 PATHOLOGY Routine 12/26/2017 MAMMO DIAGNOSTIC BILATERAL W OR WO CAD Routine 12/26/2017 MAMMO BREAST US BILAT LTD Routine 12/20/2017 MAMMO SCREEN BILAT W OR WO CAD Routine 12/18/2017 MAMMO SCREEN BILAT W OR WO CAD Routine 12/07/2015 MAMMO SCREEN BILAT W OR WO CAD Routine 12/01/2014 documented in this encounter Results * (ABNORMAL) MAMMO STEREOTACTIC BREAST BX RT (01/02/2018) Anatomical Region Laterality Modality Breast Right Other Tissue SPECIMEN FROM BREAST / Unknown Emerson Allen MD MAMMO ORDERABL ES * (ABNORMAL) MAMMO BREAST US LEFT LTD (01/02/2018) Anatomical Region Laterality Modality Left Other Fiona Valles MD MAMMO ORDERAB LES * (ABNORMAL) MRI BREAST W WO CONT BILAT (01/01/2018) Anatomical Region Laterality Modality Breast Bilateral Other Emerson Allen MD MR ORDERABLES * (ABNORMAL) PATHOLOGY (12/26/2017) Tissue Abstract Provider PATHOLOGY/CYTOLOGY O [facility] * (ABNORMAL) MAMMO DIAGNOSTIC BILATERAL W OR WO CAD (12/26/2017) Anatomical Region Laterality Modality Breast Bilateral Other Emerson Allen MD MAMMO ORDERABL ES * (ABNORMAL) MAMMO BREAST US BILAT LTD (12/20/2017) Anatomical Region Laterality Modality Bilateral Other Emerson Allen MD MAMMO ORDERABL ES * (ABNORMAL) MAMMO SCREEN BILAT W OR WO CAD (12/18/2017) Anatomical Region Laterality Modality Breast Bilateral Other Emerson Allen MD MAMMO ORDERABL ES * MAMMO SCREEN BILAT W OR WO CAD (12/07/2015) Anatomical Region Laterality Modality Breast Bilateral Other Francisca Hou DO MAMMO ORDERABLES * MAMMO SCREEN BILAT W OR WO CAD (12/01/2014) Anatomical Region Laterality Modality Breast Bilateral Other Dayana Helms MD MAMMO ORDERABLES documented in this encounter Visit Diagnoses Not on filedocumented in this encounter Care Teams Occasional Babysitter Relationship Specialty Start Date End Date Emerson Allen MD [address] [phone] PCP - General Family Practice 04/27/18 documented as of this encounter
--- OUTSIDE RECORDS SUMMARY | 2024-10-13 04:23 | XMS_ITS | Encounter Summary ---
Author Organization [facility] Address [address] [place] [address] Care Team Providers Care Colon And Rectal Surgeon Name Role Phone Emerson Allen MD Primary Care Provider Encounter Details Date Type Department Care Team (Latest Contact Info) Description 04/30/2018 9:19 AM CDT - 04/30/2018 11:59 PM T Hospital Encounter [facility] Laboratory Services [facility] [address] [place] [phone] Jennifer Waters MD [address] [place] [phone] Discharge Disposition: Home or Self Care [...] Amount: 4 Tablets 30 Tablet 05/17/2018 06/08/2018 aspirin (ASPIR-81 ORAL) Take by mouth. 05/17/2018 fluticasone (FLONASE) 50 mcg/spray [place], Suspension Administer 2 Sprays in each nostril 1 time daily as needed . 06/14/2017 06/14/2018 clopidogrel (PLAVIX) 75 mg Tablet TK 1 T PO ONCE A DAY 2 04/04/2018 018 documented as of this encounter Plan of Treatment Not on file documented as of this encounter Visit Diagnoses Not on filedocumented in this encounter Care Teams Colon And Rectal Surgeon Relationship Specialty Start Date End Date Emerson Allen MD [address] [phone] PCP - General Family Practice 04/27/18 documented as of this encounter
--- OUTSIDE RECORDS SUMMARY | 2024-10-13 04:23 | XMS_ITS | Encounter Summary ---
Author Organization [facility] Address [address] [place] [address] Care Team Providers Care Professor Of Rhetoric Name Role Phone Emerson Allen MD Primary Care Provider Reason for Visit * Auth/Cert Specialty Diagnoses / Procedures Referred By Denton pickard Referred To Contact Laboratory [facility] Outpatient Laboratory [facility] [address] [place] [address] Referral ID Status Reason Start Date Expiration Date Visits Re quested Visits Authorized [id number] 1 1 Encounter Details Date Type Department Care Team (Latest Contact Info) Description 04/27/2018 1:02 PM CDT - 04/27/2018 11:59 PM T Hospital Encounter [facility] Outpatient Laboratory Services [address] [place] [address] Jennifer Waters MD [address] [place] [phone] Discharge Disposition: Home or Self Care [...] [employer]HE [employer]URNS. 12/13/2017 fluticasone (FLONASE) 50 mcg/spray [place], Suspension Administer 2 Sprays in each nostril 1 time daily as needed . 06/14/2017 06/14/2018 clopidogrel (PLAVIX) 75 mg Tablet TK 1 T PO ONCE A DAY 2 04/04/2018 018 documented as of this encounter Plan of Treatment Not on file documented as of this encounter Procedures Procedure Name Priority Date/Time Associated Diagnosis Comments CBC WITHOUT DIFFERENTIAL Routine 04/27/2018 1:11 PM CDT Lobular carcinoma in situ (LCIS) of right breast COMPREHENSIVE METABOLIC PANEL Routine 04/27/2018 1:11 PM CDT Lobular carcinoma in situ (LCIS) of right breast documented in this encounter Results * COMPREHENSIVE METABOLIC PANEL (04/27/2018 1:11 PM CDT) SODIUM 139 136 - 145 mmol/L 04/27/2018 6:57 PM CDT [facility] - [facility] POTASSIUM 4.3 3.5 - 5.0 mmol/L 04/27/2018 6:57 PM CDT [facility] - . [facility] CHLORIDE 103 98 - 107 mmol/L 04/27/2018 6:57 PM CDT [facility] - . [facility] CO2 24 22 - 29 mmol/L 04/27/2018 6:57 PM CDT [facility] - [facility] CALCIUM 9.4 8.6 - 10.2 mg/dL 04/27/2018 6:57 PM CDT [facility] - . [facility] BUN 10 6 - 20 mg/dL 04/27/2018 6:57 PM CDT [facility] - . [facility] CREATININE 0.75 0.51 - 0.95 mg/dL 04/27/2018 6:57 PM CDT [facility] - [facility] GLUCOSE 86 74 - 99 mg/dL 04/27/2018 6:[address] [facility] [place] TOTAL PROTEIN 7.2 6.7 - 8.6 g/dL 04/27/2018 6:[address] [facility] . [place] ALBUMIN 4.5 3.5 - 5.2 g/dL 04/27/2018 6:57 PM CDT [facility] - . [place] BILIRUBIN TOTAL 0.4 0.3 - 1.2 mg/dL 04/27/2018 6:57 PM CDT [facility] - . [facility] ALKALINE PHOSPHATASE 93 35 - 104 U/L 04/27/2018 6:57 PM CDT [facility] - . [place] AST 18 <33 U/L 04/27/2018 6:57 PM CDT [facility] - . [place] ALT 16 <34 U/L 04/27/2018 6:57 PM CDT [facility] - [facility] GFR >60 >=60 mL/min/1.7 3 sq meter 04/27/2018 6:57 PM CDT [facility] - [facility] Comment: eGFR has not been validated for use in the elderly (> 70 years of age), women, patients with serious co-morbid conditions, or persons with extremes of body size or muscle mass and should also be interpreted with caution in patients with acute kidney failure, dialysis dependent patients, patients reporting exceptional dietary intake (e.g. vegetarian diet, high protein diets, creatine supplementation), and patients with severe liver disease. Based on National Kidney Disease Education Program If patient is , please refer to the GFR result. GFR, >60 >=60 mL/min/1.7 3 sq meter 04/27/2018 6:57 PM CDT [facility] - [facility] ANION GAP 12 8 - 16 mmol/L 04/27/2018 6:57 PM T [facility] Blood Venipuncture / Unknown 04/27/2018 1:11 PM CDT 04/27/2018 1:11 PM CDT [facility] - . [place] - 04/27/2018 6:57 PM CDT Samples containing indocyanine green cause interferences on Total and/or Direct Bilirubin and must not be measured. Jennifer Waters MD CHEMISTRY ORDERABLES [facility]# [id number] [address] [place] [address] * CBC WITHOUT DIFFERENTIAL (04/27/2018 1:11 PM CDT) [facility] WBC 8.7 4.0 - 9.8 K/uL 04/27/2018 1:14 PM CDT [facility] [place] RBC 4.64 3.90 - 4.90 M/uL 04/27/2018 1:14 PM CDT [facility] [place] HEMOGLOBIN 14.3 11.8 - 14.8 g/dL 04/27/2018 1:14 PM CDT [facility] [place] HEMATOCRIT 41.4 35.5 - 44.0 % 04/27/2018 1:14 PM CDT [facility] [place] MCV 89.2 82.0 - 99.0 fL 04/27/2018 1:14 PM CDT [facility] [place] MCH 30.8 27.2 - 32.6 pg 04/27/2018 1:14 PM CDT [facility] [place] MCHC 34.5 31.5 - 35.5 g/dL 04/27/2018 1:14 PM CDT [facility] [place] PLATELETS 220 140 - 350 K/uL 04/27/2018 1:14 PM CDT [facility] [place] MPV 9.9 9.3 - 12.4 fL 04/27/2018 1:14 PM CDT [facility] [place] RDW 13.7 11.5 - 14.5 % 04/27/2018 1:14 PM CDT [facility] [place] RDW-STDEV 44.6 37.1 - 48.7 fL 04/27/2018 1:14 PM CDT [facility] [place] Blood Venipuncture / Unknown 04/27/2018 1:11 PM CDT 04/27/2018 1:11 PM CDT Jennifer Waters MD HEMATOLOGY ORDERABLE S [facility] [place]#[id number] [address] [place] [address] documented in this encounter Visit Diagnoses Diagnosis Lobular carcinoma in situ (LCIS) of right breast documented in this encounter Care Teams Professor Of Rhetoric Relationship Specialty Start Date End Date Emerson Allen MD [address] [place] [phone] PCP - General Family Practice 04/27/18 documented as of this encounter
--- OUTSIDE RECORDS SUMMARY | 2024-10-13 04:23 | XMS_ITS | Encounter Summary ---
Author Organization [facility] Address [address] [place] [address] Care Team Providers Care Dough Cutter Name Role Phone Unavailable Primary Care Provider Unavailabl e Reason for Referral * Outpatient Services (Routine) - Closed Specialty Diagnoses / Procedures Referred By Denton pickard Referred To Contact Vascular Lab Diagnoses Peripheral vascular disease, unspecified Procedures US ANKLE PRESSURE INDEX Basilio Matthew MD [address] [facility] [id number] [facility] [place] [place] [address] Referral ID Status Reason Start Date Expiration Date Visits Re quested Visits Authorized [id number] Closed 09/14/2010 03/13/2011 1 1 [facility] Reason for Visit * Outpatient Services (Routine) - Closed Specialty Diagnoses / Procedures Referred By Denton pickard Referred To Contact Vascular Lab Diagnoses Peripheral vascular disease, unspecified Procedures US ANKLE PRESSURE INDEX Basilio Matthew MD [address] [facility] [address] [facility] [place] [address] Referral ID Status Reason Start Date Expiration Date Visits Re quested Visits Authorized [id number] Closed 09/14/2010 03/13/2011 1 1 Encounter Details Date Type Department Care Team (Latest Contact Info) Description 10/21/2010 1:00 PM [facility] - 10/21/2010 11:59 PM [facility] Hospital Encounter [facility] Blood Flow [address] [place] [address] Basilio Matthew MD [address] [facility] [id number] [place] [phone] Discharge Disposition: Home or Self Care Social History Tobacco Use Types Packs/Day Years Used Date Smoking Tobacco: Never Assessed Sex and Gender Information Value Date Recorded Sex Assigned at Not on file Gender Identity Not on file Sexual Orientation Not on file documented as of this encounter Miscellaneous Notes * Scanned Form - Stl Scanning, Him - 10/22/2010 8:11 PM [facility] documented in this encounter Plan of Treatment Not on file documented as of this encounter Procedures Procedure Name Priority Date/Time Associated Diagnosis Comments US ANKLE PRESSURE INDEX Routine 10/21/2010 2:04 PM [facility] Unspecified peripheral vascular disease documented in this encounter Results * US ANKLE PRESSURE INDEX (10/21/2010 2:04 PM [facility]) Anatomical Region Laterality Modality Lower Extremity Ultrasound Impressions 10/23/2010 12:16 PM [facility] ATTENDANT Essentially normal to mild arterial insufficiency of both extremities at rest. Significant drop in pressure with exercise, compatible with claudication. Narrative 10/23/2010 12:16 PM [facility] ATTENDANT ANKLE SCREEN INDICATION This is a patient who has a stent placement previous. Has previous smoking, current hyperlipidemia, previous angioplasty. Brachial systolic pressure is 130 mmHg in the right upper extremity, 126 on the left. Highest ankle pressure on the right is 119 mmHg in the posterior tibial artery. The ankle/brachial index is 0.92 and digital pressure is 72. On the left, the highest ankle pressure is 106 mmHg in the posterior tibial artery. The ankle/brachial index is 0.82 and digital pressure is 68. Waveforms are biphasic at all locations in both the right and left feet. ??With exercise, there is no drop in brachial systolic pressure but there is a drop in ankle systolic pressure on the right from 0.92 to 0.52 and on the left from 0.82 to 0.4, with incomplete recovery by 5 minutes. ?? Procedure Note Jacob Ramos MD - 10/23/2010 ANKLE SCREEN INDICATION This is a patient who has a stent placement previous. Has previoussmoking, current hyperlipidemia, previous angioplasty. Brachial systolic pressure is 130 mmHg in the right upper extremity, 126on the left. Highest ankle pressure on the right is 119 mmHg in theposterior tibial artery. The ankle/brachial index is 0.92 and digitalpressure is 72. On the left, the highest ankle pressure is 106 mmHg in theposterior tibial artery. The ankle/brachial index is 0.82 and digitalpressure is 68. Waveforms are biphasic at all locations in both the rightand left feet. With exercise, there is no drop in brachial systolicpressure but there is a drop in ankle systolic pressure on the right from0.92 to 0.52 and on the left from 0.82 to 0.4, with incomplete recovery by5 minutes. IMPRESSION Essentially normal to mild arterial insufficiency of both extremities atrest. Significant drop in pressure with exercise, compatible withclaudication. Basilio Matthew MD ORDERABLES documented in this encounter Visit Diagnoses Diagnosis Peripheral vascular disease, unspecified documented in this encounter
--- OUTSIDE RECORDS SUMMARY | 2024-10-13 04:23 | XMS_ITS | Encounter Summary ---
Author Organization [employer] Address [address] [place] [address] Care Team Providers Care Java Web Engineer Name Role Phone Emerson Allen MD Primary Care Provider Encounter Details Date Type Department Care Team (Latest Contact Info) Description 01/08/2008 Outpatient Historical HIS CARD BARREL COOPER Star Matthew MD [address] [facility] [address] [place] [address] Unspecified [...] Diagnosis Comments POC ACTIVATED CLOTTING TIME Routine 01/08/2008 12:58 PM CDT US GUIDE VASCULAR ACCESS Routine 01/08/2008 10:12 AM CDT US GUIDE VASCULAR ACCESS Routine 01/08/2008 10:12 AM CDT IR STENT PLACEMENT Routine 01/08/2008 10 :11 AM CDT IR STENT PLACEMENT Routine 01/08/2008 10 :11 AM CDT IR ARTERIOGRAM ABDOMINAL Routine 01/08/2008 10:11 AM CDT IR EXTREMITY ARTERIAL Routine 01/08/2008 10:11 AM CDT PT AND APTT Stat 01/08/2008 7:08 AM CDT PLATELET COUNT Stat 01/08/2008 7:08 AM CDT BUN Stat 01/08/2008 7:08 AM CDT CREATININE Stat 01/08/2008 7:08 AM CDT documented in this encounter Results * POC ACTIVATED CLOTTING TIME (01/08/2008 12:58 PM CDT) ACT POC 134 Seconds [facility] Comment: Note sheath pull range change effective 03/31/2006. ACT value for sheath pull at [facility] has been established to be < or = to 140. ??(See also Nursing Procedures for sheath pull in related nursing areas) Blood specimen (specimen) 01/08/2008 12:58 PM CDT 01/08/2008 12:58 PM CDT Star Matthew MD POINT OF CARE TESTIN G [facility] [address] [place] [address] * US GUIDE VASCULAR ACCESS (01/08/2008 10:12 AM CDT) Anatomical Region Laterality Modality Other 01/08/2008 10:1 2 AM CDT Narrative 01/16/2008 11:32 PM CDT ? [facility] ? [address] ?[place] ??[address] ?Admit Date: 01/08/2008 ? VASHTI MOSHE H ?Sex: F ?Admit Prov: STAR MATTHEW Daphney ? Date: 1965 ?Primary Care Prov: ? CMRN: [id number] ?[facility] ? SSN: [id number] ? IMAGING SERVICES ?Ordering Prov: STAR MATTHEW Daphney ? Accession Number: [id number] ?Interpretation ? The procedure was performed in the Operating Room by Vascular Surgery. ? Please see the operative report for details. ? Dictated by: ??RADIOLOGY, DEPARTMENT O ? Electronically signed by: ??RADIOLOGY, DEPARTMENT 01/16/2008 23:32 ? Transcribed: ??01/16/2008 23:25 ?AMK Procedure Note Provider, Historical - 01/16/2008 [facility] [address] [place], [place] [address] Admit Date: 01/08/2008 MOSHE KINGSTON Sex: F Admit Prov: STAR MATTHEW Date: 1965 Primary Care Prov: CMRN: [id number] Room: [facility] SSN: [id number] IMAGING SERVICES Ordering Prov: STAR MATTHEW Interpretation The procedure was performed in the Operating Room by VascularSurgery. Please see the operative report for details. Dictated by: RADIOLOGY, DEPARTMENT O Electronically signed by: RADIOLOGY, DEPARTMENT 01/16/2008 23:32 Transcribed: 01/16/2008 23:25 AMK Star Matthew MD ORDERABLES * US GUIDE VASCULAR ACCESS (01/08/2008 10:12 AM CDT) Anatomical Region Laterality Modality Other 01/08/2008 10:1 2 AM CDT Narrative 01/16/2008 11:32 PM CDT ? [facility] ? [address] ?[place], [place] ??[address] ?Admit Date: 01/08/2008 ? VASHTI MOSHE Fela ?Sex: F ?Admit Prov: STAR MATTHEW ? Date: 1965 ?Primary Care Prov: ? CMRN: [id number] ?Room: [facility] ? SSN: [id number] ? IMAGING SERVICES ?Ordering Prov: STAR MATTHEW ? Accession Number: [id number] ?Interpretation ? The procedure was performed in the Operating Room by Vascular Surgery. ? Please see the operative report for details. ? Dictated by: ??RADIOLOGY, DEPARTMENT O ? Electronically signed by: ??RADIOLOGY, DEPARTMENT 01/16/2008 23:32 ? Transcribed: ??01/16/2008 23:25 ?AMK Procedure Note Provider, Historical - 01/16/2008 [address] [place], [place] [address] Admit Date: 01/08/2008 MOSHE KINGSTON Sex: F Admit Prov: STAR MATTHEW Date: 1965 Primary Care Prov: CMRN: [id number] Room: [facility] SSN: [id number] IMAGING SERVICES Ordering Prov: STAR MATTHEW Interpretation The procedure was performed in the Operating Room by VascularSurgery. Please see the operative report for details. Dictated by: RADIOLOGY, DEPARTMENT O Electronically signed by: RADIOLOGY, DEPARTMENT 01/16/2008 23:32 Transcribed: 01/16/2008 23:25 AMK Star Matthew MD ORDERABLES * IR STENT PLACEMENT (01/08/2008 10:11 AM CDT) Anatomical Region Laterality Modality Other 01/08/2008 10:1 1 AM CDT Narrative 01/16/2008 11:32 PM CDT ? [facility] ? [address] ?[place] ??[address] ?Admit Date: 01/08/2008 ? VASHTI, MOSHE H ?Sex: F ?Admit Prov: STAR MATTHEW ? Date: 1965 ?Primary Care Prov: ? CMRN: [id number] ?Room: [facility] ? SSN: [id number] ? IMAGING SERVICES ?Ordering Prov: STAR MATTHEW ? Accession Number: [id number] ?Interpretation ? The procedure was performed in the Operating Room by Vascular Surgery. ? Please see the operative report for details. ? Dictated by: ??RADIOLOGY, DEPARTMENT O ? Electronically signed by: ??RADIOLOGY, DEPARTMENT 01/16/2008 23:32 ? Transcribed: ??01/16/2008 23:25 ?AMK Procedure Note Provider, Historical - 01/16/[address] [address] Admit Date: 01/08/2008 MOSHE KINGSTON Sex: F Admit Prov: STAR MATTHEW Date: 1965 Primary Care Prov: CMRN: [id number] [facility] [id number] IMAGING SERVICES Ordering Prov: STAR MATTHEW Interpretation The procedure was performed in the Operating Room by VascularSurgery. Please see the operative report for details. Dictated by: RADIOLOGY, DEPARTMENT O Electronically signed by: RADIOLOGY, DEPARTMENT 01/16/2008 23:32 Transcribed: 01/16/2008 23:25 AMK Star Matthew MD IR ORDERABLES * IR STENT PLACEMENT (01/08/2008 10:11 AM CDT) Anatomical Region Laterality Modality Other 01/08/2008 10:1 1 AM CDT Narrative 01/16/2008 11:32 PM CDT ? [facility] ? [address] ?[place] ??[address] ?Admit Date: 01/08/2008 ? LOGANGUMP, MOSHE H ?Sex: F ?Admit Prov: STAR MATTHEW ? Date: 1965 ?Primary Care Prov: ? CMRN: [id number] ?Room: [facility] ? SSN: [id number] ? IMAGING SERVICES ?Ordering Prov: STAR MATTHEW ? Accession Number: [id number] ?Interpretation ? The procedure was performed in the Operating Room by Vascular Surgery. ? Please see the operative report for details. ? Dictated by: ??RADIOLOGY, DEPARTMENT O ? Electronically signed by: ??RADIOLOGY, DEPARTMENT 01/16/2008 23:32 ? Transcribed: ??01/16/2008 23:25 ?AMK Procedure Note Provider, Historical - 01/16/2008 [facility] [address] [place], [place] [address] Admit Date: 01/08/2008 MOSHE KINGSTON Sex: F Admit Prov: STAR MATTHEW Date: 1965 Primary Care Prov: CMRN: [id number] Room: [facility] [place] [facility] SSN: [id number] IMAGING SERVICES Ordering Prov: STAR MATTHEW Interpretation The procedure was performed in the Operating Room by VascularSurgery. Please see the operative report for details. Dictated by: RADIOLOGY, DEPARTMENT O Electronically signed by: RADIOLOGY, DEPARTMENT 01/16/2008 23:32 Transcribed: 01/16/2008 23:25 AMK Star Matthew MD IR ORDERABLES * IR ARTERIOGRAM ABDOMINAL (01/08/2008 10:11 AM CDT) Anatomical Region Laterality Modality Abdomen Other 01/08/2008 10:1 1 AM CDT Narrative 01/16/2008 11:32 PM CDT ? [facility] ? [address] ?[place], [place] ??[address] ?Admit Date: 01/08/2008 ? MOSHE KINGSTON ?Sex: F ?Admit Prov: STAR MATTHEW ? Date: 1965 ?Primary Care Prov: ? CMRN: [id number] ?[facility] ? SSN: [id number] ? IMAGING SERVICES ?Ordering Prov: STAR MATTHEW ? Accession Number: [id number] ?Interpretation ? The procedure was performed in the Operating Room by Vascular Surgery. ? Please see the operative report for details. ? Dictated by: ??RADIOLOGY, DEPARTMENT O ? Electronically signed by: ??RADIOLOGY, DEPARTMENT 01/16/2008 23:32 ? Transcribed: ??01/16/2008 23:25 ?AMK Procedure Note Provider, Historical - 01/16/2008 [facility] [address] [place], [place] [address] Admit Date: 01/08/2008 MOSHE KINGSTON Sex: F Admit Prov: STAR MATTHEW Date: 1965 Primary Care Prov: CMRN: [id number] [facility] [id number] IMAGING SERVICES Ordering Prov: STAR MATTHEW Interpretation The procedure was performed in the Operating Room by VascularSurgery. Please see the operative report for details. Dictated by: RADIOLOGY, DEPARTMENT O Electronically signed by: RADIOLOGY, DEPARTMENT 01/16/2008 23:32 Transcribed: 01/16/2008 23:25 AMK Star Matthew MD IR ORDERABLES * IR EXTREMITY ARTERIAL (01/08/2008 10:11 AM CDT) Anatomical Region Laterality Modality Other 01/08/2008 10:1 1 AM CDT Narrative 01/16/2008 11:32 PM CDT ? [facility] ? [address] ?[address] [place], [place] ??[address] ?Admit Date: 01/08/2008 ? MOSHE KINGSTON ?Sex: F ?Admit Prov: STAR MATTHEW ? Date: 1965 ?Primary Care Prov: ? CMRN: [id number] ?Room: [facility] [place] [facility] ? SSN: [id number] ? IMAGING SERVICES ?Ordering Prov: STAR MATTHEW ? Accession Number: [id number] ?Interpretation ? The procedure was performed in the Operating Room by Vascular Surgery. ? Please see the operative report for details. ? Dictated by: ??RADIOLOGY, DEPARTMENT O ? Electronically signed by: ??RADIOLOGY, DEPARTMENT 01/16/2008 23:32 ? Transcribed: ??01/16/2008 23:25 ?AMK Procedure Note Provider, Historical - 01/16/[address] [address] Admit Date: 01/08/2008 MOSHE KINGSTON Sex: F Admit Prov: STAR MATTHEW Date: 1965 Primary Care Prov: CMRN: [id number] Room: [facility] SSN: [id number] IMAGING SERVICES Ordering Prov: STAR MATTHEW Interpretation The procedure was performed in the Operating Room by VascularSurgery. Please see the operative report for details. Dictated by: RADIOLOGY, DEPARTMENT O Electronically signed by: RADIOLOGY, DEPARTMENT 01/16/2008 23:32 Transcribed: 01/16/2008 23:25 AMK Star Matthew MD IR ORDERABLES * PT AND APTT (01/08/2008 7:08 AM CDT) PROTIME 12.7 12.7 - 15.1 Seconds [facility] INR 0.9 0.9 - 1.1 [facility] Comment: INR Therapeutic Range: Adult: ?? 2.0 - 3.0 for pulmonary embolism or prophylaxis against venous ?thrombosis or systemic embolization. 2.0 - 3.0 for patients with tissue heart valves. 2.5 - 3.5 for patients with mechanical heart valves or post OR. Pediatric ??(12 years and under): 1.5 - 3.0 Although the target range in children is not well established, ?INR values of 1.5 - 3.0 are recommended for most patients. ?Higher values have been used in children with prosthetic ?cardiac valves and hereditary clotting disorders. (<3 days) therapeutic ranges have not been established. PTT 27.1 24.4 - 36.4 Seconds [facility] Comment: PTT Therapeutic Range: Heparin Level ? PTT (seconds) <0.10 units/mL ? <53 0.10 - 0.30 units/mL ? 53 - 67 0.30 - 0.70 units/mL* ?67 - 95* 0.70 - 1.00 units/mL ? 95 - 116 *corresponds to therapeutic range for unfractionated heparin Blood specimen (specimen) 01/08/2008 7:08 AM CDT 01/08/2008 7:12 AM CDT Star Matthew MD HEMATOLOGY ORDERABLE S [facility] [address] [place] [address] * BUN (01/08/2008 7:08 AM CDT) BUN 14 6 - 20 mg/dL [facility] Blood specimen (specimen) 01/08/2008 7:08 AM CDT 01/08/2008 7:12 AM CDT Star Matthew MD CHEMISTRY ORDERABLES Performing Organization Address [facility] Co de Phone Number [facility] [address] [place] [address] * CREATININE (01/08/2008 7:08 AM CDT) CREATININE 0.81 0.51 - 0.95 mg/dL [facility] GFR, >60 >=60 mL/min/1.7 sq meter [facility] GFR >60 >=60 mL/min/1.7 sq meter [facility] Comment: Estimated GFR rate interpretative information for both Americans and non- Americans is available on the [facility] Intranet at: [email or web address] samaritanCapricorn Food Products [facility]hospital [facility]/[email or web address].nsf Select: Lab Policies and Procedures Select: Reference Ranges - GFR Blood specimen (specimen) 01/08/2008 7:08 AM CDT 01/08/2008 7:12 AM CDT Star Matthew MD CHEMISTRY ORDERABLES Performing Organization Address [facility] Co de Phone Number [facility] [address] [place] [address] * PLATELET COUNT (01/08/2008 7:08 AM CDT) PLATELETS 215 140 - 350 K/uL [facility] MPV 10.5 9.3 - 12.4 fL [facility] Blood specimen (specimen) 01/08/2008 7:08 AM CDT 01/08/2008 7:12 AM CDT Star Matthew MD HEMATOLOGY ORDERABLE S [facility] [address] [place] [address] documented in this encounter Visit Diagnoses Diagnosis Peripheral vascular disease, unspecified documented in this encounter Care Teams Java Web Engineer Relationship Specialty Start Date End Date Emerson Allen MD [address] [place] [phone] PCP - General Family Practice 04/27/18 documented as of this encounter
--- OUTSIDE RECORDS SUMMARY | 2024-10-13 04:23 | XMS_ITS | Encounter Summary ---
Author Organization [facility] Address [address] [place] [address] Care Team Providers Care Ventilator Specialist Name Role Phone Emerson Allen MD Primary Care Provider Encounter Details Date Type Department Care Team (Late st Contact Info) Description 06/05/2018 Chart Note [facility] BREAST SURGERY [facility] [place] C[facility]KS[facility] [address] [facility] [address] [place] [address] Jennifer Waters MD [address] [place] [address] Social History Tobacco Use Types Packs/Day Years [...] on filedocumented in this encounter Care Teams Ventilator Specialist Relationship Specialty Start Date End Date Emerson Allen MD [address] [place] [address] [address] [place] [phone] PCP - General Family Practice 04/27/18 documented as of this encounter
--- OUTSIDE RECORDS SUMMARY | 2024-10-13 04:23 | XMS_ITS | Encounter Summary ---
Author Organization [facility] Address [address] [place] [address] Care Team Providers Care Change Management Lead Name Role Phone Emerson Allen MD Primary Care Provider Reason for Visit * Reason Comments Breast Cancer right breast Encounter Details Date Type Department Care Team (Late st Contact Info) Description 04/27/2018 11:15 AM CDT Office Visit [facility] BREAST [facility] [address] [facility] [address] [place] [address] Jennifer Waters MD [address] [place] [id number] Lobular carcinoma in situ (LCIS) of right breast Social History Tobacco Use Types Packs/Day [...] Sign Reading Time Taken Comments Blood Pressure 132/84 04/27/2018 11:21 AM CDT Pulse - - Temperature - - Respiratory Rate - - Oxygen Saturation - - Inhaled Oxygen Concentration - - Weight 74.8 kg (165 lb) 04/27/2018 11:21 AM CDT Height 154.9 cm (5' 1 ) 04/27/2018 11:21 AM CDT Body Mass Index 31.18 04/27/2018 11:21 AM CDT documented in this encounter Progress Notes * Jennifer Waters MD - 04/27/2018 11:24 AM CDT PATIENT: Mirtha HARTLEY : 1965 DATE: 04/27/2018 Mirtha HARTLEY is a 53 y.o. female. [...] breast cancer. 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 She is . She drinks rarely and is a 35 year pack smoker. She is here today with a previous patient of [employer] HX: OB History Para Term AB Living 3 2 SAB TAB Ectopic Multiple Live Births Obstetric Comments Age @ onset of menses:13 Age @ first live :25 PMH: Past Medical History: Diagnosis Date ??? Lobular carcinoma in situ (LCIS) of right breast 12/26/2017 [facility] PSH: Past Surgical History: Procedure Laterality Date ??? BIOPSY BREAST Right 12/2017 ??? HX BUNIONECTOMY 2017 ??? HX ENDOSCOPIC EXTRALARYNGEAL VOCAL CORD LATERALIZATION W/ MLB 2013 ??? HX GALLBLADDER SURGERY 1998 ??? HX HEART SURGERY 2005 2006 and 2017 stent ALLERGY: Allergies Allergen Reactions ??? Adhesive Rash Reaction: Rash, ??? Codeine Other (See Comments), Unknown and Nausea and Vomiting Other reaction(s): Unknown Other reaction(s): Nausea Only Reaction: Nausea, MEDS: Current Outpatient Prescriptions Medication Sig Dispense Refill ??? atorvastatin (LIPITOR) 40 mg tablet ??? clopidogrel (PLAVIX) 75 mg Tablet TK 1 T PO ONCE A DAY 2 ??? coenzyme Q10 200 mg Capsule 200 mg. ??? fluticasone (FLONASE) 50 mcg/spray [place], Suspension 2 Sprays. ??? Lactobacillus acidophilus 10 billion cell Capsule Take 1 capsule by oral route every day ??? loratadine (CLARITIN) 10 mg tablet Take 10 mg by mouth. ??? omeprazole (PriLOSEC) 40 mg Capsule, Delayed Release(E.C.) 3 ??? SUMAtriptan (IMITREX) 50 mg tablet TAKE 1 TABLET BY MOUTH EARLY POSSIBLE AFTER ONSET OF MIGRAINE. MAY REPEAT AFTER 2 HOURS IF HEADACHE RETURNS. No current facility-administered medications for this visit. FHX: Family History Problem Relation Age of Onset ??? Throat Cancer Father 56 ??? Lung Cancer Father ??? Breast Cancer Paternal Grandmother SOC: Social History Social History ??? Marital status: Spouse name: N/A ??? Number of children: 2 ??? Years of education: N/A Occupational History ??? Not on file. Social History Main Topics ??? Smoking status: Former Smoker Packs/day: 1.00 Years: 35.00 Types: Cigarettes ??? Smokeless tobacco: Never Used ??? Alcohol use Yes Comment: rarely ??? Drug use: No ??? Sexual activity: Not on file Other Topics Concern ??? Not on file Social History Narrative ??? No narrative on file ROS: Unremarkable Constitutional: Negative for fever, weight [...] Hematologic: Negative for anemia, bleeding disorders, HIV/AIDS BP 132/84 Ht 5' 1 (1.549 m) [...] Psychiatric: Affect and judgment normal. Vitals reviewed. Axilla-there is no axillary adenopathy Breasts -nipples are everted. There are no dominant masses Right breast:normal in appearance, no masses, skin changes or nipple discharge Left breast: normal in appearance, no masses, skin changes or nipple discharge IMAGING: outside films are reviewed. Mammogram: December 18, 2017 and December 20, 2017. At [facility]. There is new asymmetric density outer right breast at mid depth and 1 cm area of indeterminate calcifications outer aspect at 9:00. Right breast ultrasound: December 20, 2017. At [facility]. There is a 1 cm cluster of subcentimeter cysts at 7:00 Right ultrasound-guided core biopsy outer mid: December 26, 2017. Lobular carcinoma in situ grade 2 concerning for DCIS Right ultrasound-guided core biopsy at 9:00: December 26, 2017. Lobular carcinoma in situ grade 2 concerning for DCIS Breast MRI: January 01, 2018. [facility]. There is a 2.6 cm biopsy [...] Left second look ultrasound: January 02, 2018. [facility]. Complex cystic masses are seen. 7mm at 4:00; 6 mm at 4:00; 5 mm at 5:00; 7 mm at 8:00 and 5 mm at 8:00. Tissue sampling is recommended for the 7mm lesion at 4:00 and 7 mm at 8:00. IMPRESSION /PLAN: 53 y.o. woman who comes in to discuss finding of lobular carcinoma in situ and possible ductal carcinoma in situ right breast I have personally examined her and have reviewed her outside mammogram, breast ultrasound and breast MRI today I have also reviewed her pathology results and outside radiology recommendations We spent 60 minutes in today???s discussion. I used drawings and illustrations and sent a printed brochure with them to reinforce the discussion. We talked about LCIS being a high risk lesion and not a breast cancer, and talked about possibilityof DCIS. I explained that surgical excision after needle [...] mastectomy as part of risk reduction strategy. Options include surgical excision of the 2 areas of LCIS on the right breast and the additional concerning area seen on MRI upper outer right breast She would also need needle core biopsy of 2 areas left breast upper outer quadrant and lower inner quadrant seen on breast MRI or surgical excision instead If she does have DCIS, I told her she would need adjuvant radiation If she does have invasive cancer then she would need sentinel lymph node biopsy to evaluate her saman status She is very much interested in bilateral prophylactic mastectomy. She is not interested in breast reconstruction She does not want 6 monthly follow-ups because of her busy lifestyle and the worry of needing more procedures in the future General anesthesia would be used. I describe [...] answered all questions posed patient expressed understanding. As we have left it, we will proceed with bilateral prophylactic mastectomy without breast reconstruction I recommended sentinel lymph node biopsy with blue dye only bilaterally I described the surgery and what it would entail and she showed excellent understanding and willingness to proceed We will obtain preoperative chest x-ray EKG and blood tests More recommendations will follow final pathology results More than 50% of today's office visit time was spent in [id number] discussion and coordination ofcare All of her questions are answered today to her satisfaction Jennifer Waters MD FACS cc: No referring provider defined for this encounter. 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 ??Normal chest x-ray. DICTATION LOCATION: [address] Narrative 04/27/2018 1:41 PM CDT XR CHEST [...] IMPRESSION: 1. Normal chest x-ray. DICTATION LOCATION: [address] Jennifer Waters MD DIAGNOSTIC IMAGING O RDERABLES * COMPREHENSIVE METABOLIC PANEL (04/27/2018 1:11 PM CDT) SODIUM 139 136 - 145 mmol/L 04/27/2018 6:57 PM CDT [facility] . [facility] POTASSIUM 4.3 3.5 - 5.0 mmol/L 04/27/2018 6:57 PM [facility] CHLORIDE 103 98 - 107 mmol/L 04/27/2018 6:57 PM [facility] CO2 24 22 - 29 mmol/L 04/27/2018 6:57 PM [facility] CALCIUM 9.4 8.6 - 10.2 mg/dL 04/27/2018 6:57 PM [facility] BUN 10 6 - 20 mg/dL 04/27/2018 6:57 PM [facility] [place] CREATININE 0.75 0.51 - 0.95 mg/dL 04/27/2018 6:57 PM [facility] [place] GLUCOSE 86 74 - 99 mg/dL 04/27/2018 6:57 PM [facility] [place] TOTAL PROTEIN 7.2 6.7 - 8.6 g/dL 04/27/2018 6:57 PM [facility] ALBUMIN 4.5 3.5 - 5.2 g/dL 04/27/2018 6:57 PM [facility] [place] BILIRUBIN TOTAL 0.4 0.3 - 1.2 mg/dL 04/27/2018 6:57 PM [facility] - [facility] ALKALINE PHOSPHATASE 93 35 - 104 U/L 04/27/2018 6:57 PM [facility] - . [facility] AST 18 <33 U/L 04/27/2018 6:57 PM [facility] [place] ALT 16 <34 U/L 04/27/2018 6:57 PM [facility] - . [facility] GFR >60 >=60 mL/min/1.7 3 sq meter 04/27/2018 6:57 PM [facility] [place] Comment: eGFR has not been validated for [...] 3 sq meter 04/27/2018 6:57 PM CDT [facility] ANION GAP 12 8 - 16 mmol/L 04/27/2018 6:57 PM CDT [facility] Blood Venipuncture / Unknown 04/27/2018 1:11 PM CDT 04/27/2018 1:11 PM CDT Narrative [facility] - 04/27/2018 6:57 PM CDT Samples containing indocyanine green cause interferences on Total and/or Direct Bilirubin and must not be measured. Jennifer Waters MD CHEMISTRY ORDERABLES [facility]# [id number] 5 [facility] [place] [address] * CBC WITHOUT DIFFERENTIAL (04/27/2018 1:11 PM CDT) WBC 8.7 4.0 - 9.8 K/uL 04/27/2018 1:14 PM CDT [facility] RBC 4.64 3.90 - 4.90 M/uL 04/27/2018 1:14 PM CDT [facility] HEMOGLOBIN 14.3 11.8 - 14.8 g/dL 04/27/2018 1:14 PM CDT [facility] HEMATOCRIT 41.4 35.5 - 44.0 % 04/27/2018 1:14 PM CDT [facility] MCV 89.2 82.0 - 99.0 fL 04/27/2018 1:14 PM CDT [facility] MCH 30.8 27.2 - 32.6 pg 04/27/2018 1:14 PM CDT [facility] MCHC 34.5 31.5 - 35.5 g/dL 04/27/2018 1:14 PM CDT [facility] PLATELETS 220 140 - 350 K/uL 04/27/2018 1:14 PM CDT [facility] MPV 9.9 9.3 - 12.4 fL 04/27/2018 1:14 PM CDT [facility] RDW 13.7 11.5 - 14.5 % 04/27/2018 1:14 PM CDT [facility] RDW-STDEV 44.6 37.1 - 48.7 fL 04/27/2018 1:14 PM CDT [facility] Blood Venipuncture / Unknown 04/27/2018 1:11 PM CDT 04/27/2018 1:11 PM CDT Jennifer Waters MD HEMATOLOGY ORDERABLE S [facility]#[id number] [address] documented in this encounter Visit Diagnoses Diagnosis Lobular carcinoma in situ (LCIS) of right breast 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
--- OUTSIDE RECORDS SUMMARY | 2024-10-13 04:23 | XMS_ITS | Encounter Summary ---
Author Organization [facility] Address [address] [place] [address] Care Team Providers Care Certified Veterinary Technician Name Role Phone Emerson Allen MD Primary Care Provider Reason for Visit * Auth/Cert Specialty Diagnoses / Procedures Referred By Denton t Referred To Contact General Surgery Diagnoses Lobular carcinoma in situ of right breast Right breast, lobular carcinoma in situ Procedures CO MASTECTOMY, SIMPLE, COMPLETE CO BX/REMV,LYMPH NODE,DEEP AXILL CO INTRAOPERATIVE SENTINEL LYMPH NODE ID W DYE INJECTION CHG LYMPHATICS & LYMPH GLANDS IMAGING RIght and Left prophylactic MASTECTOMY TOTAL RIght and left SENTINEL LYMPH NODE BIOPSY w/nuc med@ [facility] [address] [place] [address] Referral ID Status Reason Start Date Expiration Date Visits Re quested Visits Authorized [id number] 1 1 Encounter Details Date Type Department Care Team (Latest Contact Info) Description 05/16/2018 8:16 AM CDT - 05/17/2018 10:28 AM CDT Hospital Encounter [facility] Interventional Unit [place] [address] [place] [address] Jennifer Waters MD [address] [place] [phone] S/P bilateral mastectomy Discharge Disposition: Home or Self Care Social [...] Sign Reading Time Taken Comments Blood Pressure 102/55 05/17/2018 8:25 AM CDT Pulse 66 05/17/2018 8:25 AM CDT Temperature 36.6 ??C (97.8 ??F) 05/17/2018 8:25 AM CD T Respiratory Rate 18 05/17/2018 8:25 AM CDT Oxygen Saturation 96% 05/17/2018 8:25 AM CDT Inhaled Oxygen Concentration - - Weight 73.8 kg (162 lb 12.8 oz) 05/16/2018 8:49 AM CDT Height 154.9 cm (5' 1 ) 05/16/2018 8:49 AM CDT Body Mass Index 30.76 05/16/2018 8:49 AM CDT documented in this encounter Discharge Instructions * Discharge Instructions* Jennifer Waters MD - 05/17/2018 7:54 AM CDT [facility] BREAST SURGERY [address] [place] [address] Post operative instructions: Activity: ___Walk around every [...] PLEASE EMAIL IN 2 DAYS VIA MY MERCY -TO LET ME KNOW HOW YOU ARE DOING -TO LET ME KNOW IF YOU NEED REFILLS -ANY PROBLEMS OR QUESTIONS -TO LET ME KNOW DRAIN OUTPUTS If you have any questions, please call the office at between the hours of 9AM and 5PMMonday through Monday. After hours for emergencies, you may call this number to be connected to theDatezr service. documented in this encounter Medications at [...] Tablet 05/17/2018 06/08/2018 fluticasone (FLONASE) 50 mcg/spray Brush, Suspension Administer 2 Sprays in each nostril [...] ??F (36.7 ??C) (Temporal) Resp 16 Ht 5' 1 (1.549 m) Wt 73.8 kg (162 lb 12.8 oz) SpO2 93% BMI 30.76 kg/m?? Right and Left chest I/C/D No eccymosis, no hematoma JPs ok- serosanguinous Right- 57cc, Left 22cc S/P bilateral mastectomy and bilateral SNBx Doing great!! Drain teaching Incentive spirometry and ambulation Plan D/C home today F/U with office [phone] Deshawn Waters MD * Danae Rubio RN [...] breast cancer. 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 She is . She drinks rarely and is a 35 year pack smoker. She is here today with a previous patient of [employer] Camilla. ?? 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 Para Term AB Living ?? 3 2 ?? SAB TAB Ectopic Multiple Live Births ? Obstetric Comments ?? Age @ onset of menses:13 Age @ first live :25 ? PMH: Past??Medical??History Past Medical History: Diagnosis Date ??? Lobular carcinoma in situ (LCIS) of right breast 12/26/2017 ?? [facility] ?? PSH: Past??Surgical??History Past [...] 200 mg. ? fluticasone (FLONASE) 50 mcg/spray Brush, Suspension 2 Sprays. ? Lactobacillus acidophilus 10 [...] 2017 and December 20, 2017. At [facility]. There is new asymmetric density outer right breast at mid depth and 1 cm area of indeterminate calcifications outer aspect at 9:00. Right breast ultrasound: December 20, 2017. At [facility]. There is a 1 cm cluster of subcentimeter cysts at 7:00 Right ultrasound-guided core biopsy outer mid: December 26, 2017. Lobular carcinoma in situ grade 2 concerning for DCIS Right ultrasound-guided core biopsy at 9:00: December 26, 2017. Lobular carcinoma in situ grade 2 concerning for DCIS Breast MRI: January 01, 2018. [facility]. There is a 2.6 cm biopsy [...] second look ultrasound: January 02, 2018. [facility]. Complex cystic masses are seen. 7mm [...] today's office visit time was spent in vnci-gr-xfhv discussion and coordination ofcare All of her [...] breast cancer. 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 She is . She drinks rarely and is a 35 year pack smoker. She is here today with a previous patient of yasmeen Sampson. ?? 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 Para Term AB Living ?? 3 2 ?? SAB TAB Ectopic Multiple Live Births ? Obstetric Comments ?? Age @ onset of menses:13 Age @ first live :25 ? PMH: Past??Medical??History Past Medical History: Diagnosis Date ??? Lobular carcinoma in situ (LCIS) [facility] right [facility] ?? PSH: Past??Surgical??History Past Surgical History: Procedure Laterality Date ??? BIOPSY BREAST Right 12/2017 ??? HX BUNIONECTOMY ?? 2018 ??? HX ENDOSCOPIC EXTRALARYNGEAL VOCAL CORD LATERALIZATION W/ MLB ?? 2013 ??? HX GALLBLADDER SURGERY ?? 1997 ??? HX HEART SURGERY ?? 2004 ?? 2006 and 2016 stent ?? ALLERGY: [...] 200 mg. ? fluticasone (FLONASE) 50 mcg/spray Brush, Suspension 2 Sprays. ? Lactobacillus acidophilus 10 [...] 2017 and December 20, 2017. At [facility]. There is new asymmetric density outer right breast at mid depth and 1 cm area of indeterminate calcifications outer aspect at 9:00. Right breast ultrasound: December 20, 2017. At [facility]. There is a 1 cm cluster of subcentimeter cysts at 7:00 Right ultrasound-guided core biopsy outer mid: December 26, 2017. Lobular carcinoma in situ grade 2 concerning for DCIS Right ultrasound-guided core biopsy at 9:00: December 26, 2017. Lobular carcinoma in situ grade 2 concerning for DCIS Breast MRI: January 01, 2018. [facility]. There is a 2.6 cm biopsy [...] second look ultrasound: January 02, 2018. [facility]. Complex cystic masses are seen. 7mm [...] today's office visit time was spent in prly-pa-wxyz discussion and coordination ofcare All of her [...] General endotracheal tube ANESTHESIOLOGIST Dr Deshawn Umana; A [facility] CARE COORDINATOR A Meeter This is a 53 y.o. [...] applied overlying the chest wall and the axillaryarea. One #19 Fran-Bunch drain was inserted overlying the chest wall and was secured with 3-0 Prolene suture. Skin flaps were then reapproximated using interrupted 3-0 Vicryl sutures, followed by 4-0 running Monocryl subcuticular closure. Skin glue, Telfa, [...] from the original note were not included. [facility] Pre-Procedure Instructions PACE PACE Name: Mirtha HARTLEY Age: 53 y.o. Please report to the: [x] Surgery Center [] [facility] (2nd Floor) [] Other: Date of Procedure: [...] surgery. ?? 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 DO NOT [...] to surgery ??? fluticasone (FLONASE) 50 mcg/spray Brush, Suspension Continue taking as prescribed ??? loratadine [...] pain/comfort utilizing verbal/nonverbal pain scales; assess culturalor anglican indicators attached to pain; administer pain medications [...] CASE REPORT Surgical Pathology Report ? Case: [id number] ? Authorizing Provider: ??Oruwari, Jennifer N, MD ?Collected: ? 05/16/2018 11:59 AM ? Ordering Location: ? [facility] ?Received: ?05/16/2018 02:06 PM ? Operating Room ? Pathologist: ? Link, Levi Wang MD ? Specimens: ?? A) - Byron Lymph Node, Right Axillary Byron Lymph Node ? B) - Breast, right, Right Breast, Stitch at ??Axillary Tail ? C) - Byron Lymph Node, Left Axillary Byron Lymph Node ? D) - Breast, left, Left Breast, Stitch at Axillary Tail ? E) - Breast, left, Left Breast ? 8 6:36 PM [facility] FINAL DIAGNOSIS Breast, right, total mastectomy: - Lobular carcinoma in situ with a pleomorphic lobular carcinoma in situ component (see description). - Radial scars, multiple small. - Fibrocystic changes. - Microcalcifications. - Biopsy site reaction, two foci of (history of previous core biopsies, [id number]). Lymph nodes, right axillary sentinel, excision: - No evidence of malignancy (0/2). Breast, left, total mastectomy: - Fibrocystic changes. Lymph node, left axillary sentinel, excision: - No evidence of malignancy (one lymph node examined). Skin and subcutaneous tissue, tissue submitted as left breast (specimen E), excision: - No pathologic diagnosis. 8 6:36 PM [facility] AOPERATIVE CONSULTATION FS1: Byron lymph node, right axillary, excision: - Negative for carcinoma (0/1). Results given to Dr. Waters. FS2: Byron lymph node, left axillary, excision: - Negative for carcinoma (0/1). Results given to Denise Antony in OR 3. Italia Braga M.D. 8 6:36 PM [facility] SPECIMEN DESCRIPTION (A) Right axillary sentinel lymph node; (B) right breast, stitch at axillary tail; (C) left axillary sentinel lymph node; (D) left breast, stitch at axillary tail; (E) left breast. 8 6:36 PM [facility] OPERATIVE PROCEDURE Right and left prophylactic mastectomy total, bilateral; right and left sentinel lymph node biopsy, blue dye only. 8 6:36 PM [facility] CLINICAL DIAGNOSIS Right breast, lobular carcinoma in situ. 8 6:36 PM [facility] GROSS DESCRIPTION Received are five containers labeled Mirtha Hartley. Received fresh for frozen section in the [...] stained. No attached lymph nodes are identified. Etiquette Coach sections are submitted as follows: B1-nipple; Z7-9-zljkznwx retracted area in upper outer quadrant with possible fat necrosis, sequentially and entirely submitted from medial to lateral (B2 includes closest deep margin, perpendicular); B5-9-area marked with ribbon-shaped biopsy clip, sequentially and entirely submitted from medial to lateral (B5 includes closest deep margin, perpendicular); J03-nbghl inner quadrant; L20-uociu inner quadrant; R42-mkdzz outer quadrant; I88-mlznp outer quadrant. The specimen is collected at [...] dye-stained. No attached lymph nodes are identified. Etiquette Coach sections are submitted as follows: D1-nipple; D2-3-upper inner quadrant; D4-5-lower inner quadrant; D6-7-upper outer quadrant; D8-9-lower outer quadrant; N14-izsvjpj breast tissue deep to nipple. The specimen [...] unremarkable cut surface with no discrete lesions. Etiquette Coach sections are submitted in cassette E1. MONTSE/faraz 8 6:36 PM [facility] [employer] [facility] MICROSCOPIC DESCRIPTION The slides are labeled Mirtha Hartley and [id number]. The one right axillary sentinel lymph node [...] which was nonreactive with an e-cadherin immunostain ([id number]). 8 6:36 PM CDT [facility] COMMENT Special stain and/or immunohistochemical results are interpreted with controls that demonstrate appropriate staining reactions. Note on use of immunocytochemistry reagents: This test was developed and its performance characteristic determined by [facility], Department of Laboratory Medicine. It has [...] WF, WB and WH are performed by [address], [address]. All other case types are performed by [address] [facility], [address]. 8 6:36 PM CDT [facility] Tissue (Byron Lymph Node) Collection / Unknown 05/16/2018 11:59 AM CDT 05/16/2018 2:06 PM CDT Tissue specimen (specimen) RIGHT BREAST STRUCTURE / Unknown 05/16/2018 12:17 PM CDT 05/16/2018 2:06 PM CDT Tissue specimen (specimen) (Byron Lymph Node) 05/16/2018 12:51 PM CDT 05/16/2018 2:06 PM CDT Tissue specimen (specimen) LEFT BREAST STRUCTURE / Unknown 05/16/2018 1:10 PM CDT 05/16/2018 2:06 PM CDT Tissue specimen (specimen) LEFT BREAST STRUCTURE / Unknown 05/16/2018 1:21 PM CDT 05/16/2018 2:06 PM CDT Jennifer Waters MD PATHOLOGY/CYTOLOGY O RDERABLES [facility] CLIA# [id number] [address] [place] [address] documented in this encounter Visit Diagnoses Diagnosis Lobular carcinoma in situ (LCIS) of right breast S/P bilateral mastectomy Acquired absence of breast and nipple documented in this encounter Administered Medications Inactive Administered Medications - up to 3 most recent administrations Medication Order MAR Action Action Date Dose Rate Site dextrose 5% - sodium chloride 0.45% infusion IV, at 75 mL/hr, CONTINUOUS, Starting on Mon05/16/18 at 1615, Until Mon05/17/18 at 1257, Routine, Post-op - Floor New Bag 05/16/2018 4:40 PM CDT 75 mL/hr lactated Ringers solution IV, at 125 mL/hr, POST-PROCEDURE CONTINUOUS, Starting on Mon05/16/18 at 1400, Until Laura 05/17/18 at 1257, Routine, PACU morphine 4 mg/mL injection 2 mg 2 mg, IV, EVERY 3 HOURS PRN, Starting on Mon05/16/18 at 1605, Until Mon05/17/18 at 1257, Pain (See admin instructions), Routine, [...] Given 05/16/2018 9:41 PM CDT 1 Tablet SUMAtriptan (IMITREX) tablet 50 mg 50 mg, Oral, PRE-PROCEDURE ONCE PRN, 1 dose, Starting on Mon05/16/18 at 0925, Until Mon05/16/18 at 0953, Migraine, Routine, Pre-op Now Given 05/16/2018 9:5 3 AM CDT 50 mg documented in this [...] RN) documented in this encounter Care Teams Certified Veterinary Technician Relationship Specialty Start Date End Date Emerson Allen MD [address] [phone] PCP - General Family Practice 04/27/18 documented as of this encounter
--- OUTSIDE RECORDS SUMMARY | 2024-10-13 04:23 | XMS_ITS | Encounter Summary ---
Author Organization [facility] Address [address] [place] [address] Care Team Providers Care Sew On Operator Name Role Phone Emerson Allen MD Primary Care Provider Encounter Details Date Type Department Care Team (Late st Contact Info) Description 08/09/2005 Outpatient Historical [facility] Supp Svcs Blood Flow [address] [place] [address] Basilio Matthew MD [address] [facility] [address] [place] [address] Social History Tobacco Use Types Packs/Day Years Used Date Smoking Tobacco: Never Assessed Sex and Gender Information Value Date Recorded Sex Assigned at Not on file Gender Identity Not on file Sexual Orientation Not on file documented as of this encounter Plan of Treatment Not on file documented as of this encounter Visit Diagnoses Not on filedocumented in this encounter Care Teams Sew On Operator Relationship Specialty Start Date End Date Emerson Allen MD [address] [place] [address] [place] [phone] PCP - General Family Practice 04/27/18 documented as of this encounter
--- OUTSIDE RECORDS SUMMARY | 2024-10-13 04:23 | XMS_ITS | Encounter Summary ---
Author Organization [facility] Address [address] [place] [address] Care Team Providers Care Machine Printer Name Role Phone Emerson Allen MD Primary Care Provider Reason for Visit * Auth/Cert Specialty Diagnoses / Procedures Referred By Denton pickard Referred To Contact Laboratory [facility] Outpatient Laboratory [address] [place] [address] Referral ID Status Reason Start Date Expiration Date Visits Re quested Visits Authorized [id number] 1 1 Encounter Details Date Type Department Care Team (Latest Contact Info) Description 04/27/2018 1:05 PM CDT - 04/27/2018 11:59 PM T Hospital Encounter [facility] Diagnostic Cardiology Services [address] [place] [id number] Jennifer Waters MD [address] [place] [phone] Discharge Disposition: Home or Self Care [...] HEADACHE RETURNS. 12/13/2017 fluticasone (FLONASE) 50 mcg/spray [place], Suspension Administer 2 Sprays in each nostril 1 time daily as needed . 06/14/2017 06/14/2018 clopidogrel (PLAVIX) 75 mg Tablet TK 1 T PO ONCE A DAY 2 04/04/2018 018 documented as of this encounter Plan of Treatment Scheduled Orders Name Type Priority Associated Diagnoses Orde r Schedule EKG 12-LEAD ECG Routine Lobular carcinoma in situ (LCIS) of right breast Ordered: 04/27/2018 documented as of this encounter Visit Diagnoses Not on filedocumented in this encounter Care Teams Machine Printer Relationship Specialty Start Date End Date Emerson Allen MD [address] [place] [phone] PCP - General Family Practice 04/27/18 documented as of this encounter
--- OUTSIDE RECORDS SUMMARY | 2024-10-13 04:23 | XMS_ITS | Encounter Summary ---
Author Organization [facility] Address [address] [place] [address] Care Team Providers Care Data Migration Consultant Name Role Phone Emerson Allen MD Primary Care Provider Encounter Details Date Type Department Care Team (Latest Contact Info) Description 04/30/2018 9:26 AM CDT - 04/30/2018 11:59 PM T Hospital Encounter [facility] Laboratory Services [facility] [address] [place] [phone] Jennifer Waters MD [address] [place] [phone] Discharge Disposition: Home or Self Care [...] by mouth. 05/17/2018 fluticasone (FLONASE) 50 mcg/spray [place], Suspension Administer 2 Sprays in each nostril 1 time daily as needed . 06/14/2017 06/14/2018 clopidogrel (PLAVIX) 75 mg Tablet TK 1 T PO ONCE A DAY 2 04/04/2018 018 documented as of this encounter Plan of Treatment Not on file documented as of this encounter Procedures Procedure Name Priority Date/Time Associated Diagnosis Comments PATHOLOGY Pathology 04/30/2018 12:06 PM CDT documented in this encounter Results * PATHOLOGY (04/30/2018 12:06 PM CDT) CASE REPORT Surgical Pathology Report ? Case: [id number] ? Authorizing Provider: ??Jennifer Waters MD ?Collected: ? 04/30/2018 12:06 PM ? Ordering Location: ? [facility] ?? Received: ?04/30/2018 12:07 PM ? Services [address] [place] ? Pathologist: ? Zach Donnelly MD ? Specimen: ?Other, specify, 11 slides labeled [id number] ? 04/30/2018 2:44 PM [facility] [employer] [facility] FINAL DIAGNOSIS Review of slides from [facility] [place] [id number]. Breast, right, middle depth, biopsy: - Pleomorphic lobular carcinoma in situ, with the following features: - Size: 11 mm in greatest dimension. - Nuclear grade: High nuclear grade with comedo necrosis. - No invasive carcinoma is identified. - Microcalcifications identified associated with lobular carcinoma in situ. Breast, right, 9 o'clock position, biopsy: - Pleomorphic lobular carcinoma in situ, with the following features: - Tumor size: 4 mm in greatest dimension. - Nuclear grade: High nuclear grade with comedo necrosis. - No invasive carcinoma is identified. - Microcalcifications identified associated with lobular carcinoma in situ. 04/30/2018 2:44 PM [facility] [employer] [facility] ICAL INFORMATION This is a 53-year-old female. Target #1 focal architectural distortion in the outer right breast at middle depth. Target #2 : Grouped indeterminate microcalcifications spanning at least 1 cm in the outer right breast at the 9:00 position. 04/30/2018 2:44 PM [facility] [employer] [facility] MICROSCOPIC DESCRIPTION The slides are labeled with [id number] and Mirtha Hartley. Sections from the right breast middle depth biopsy show pleomorphic lobular carcinoma in situ, high nuclear grade with comedo necrosis and microcalcifications, involving multiple cores. No invasive carcinoma is identified. Immunostain for E-cadherin shows loss of expression, supporting the diagnosis. Nonneoplastic breast shows sclerosis adenosis and fibrocystic changes. Sections from the right breast 9 o'clock position show pleomorphic lobular carcinoma in situ with comedo necrosis and microcalcifications, involving multiple cores. No invasive carcinoma is identified. Immunostain for E-cadherin shows loss of expression, supporting the diagnosis. Nonneoplastic breast shows fibrocystic changes. 04/30/2018 2:44 PM CDT [facility] SUBMITTED BY Dr.Jovita Waters, [facility], [facility], [address] [place] [address], [address], [place] [address]; cc: [facility], Department of Pathology, [address] [place] [address]. 04/30/2018 2:44 PM CDT [facility] MATERIAL RECEIVED Received from [place], [place], are 11 slides labeled with [id number]. They are derived from breast biopsy sampled on 12/26 2017 as detailed in the accompanying corresponding surgical pathology report. 04/30/2018 2:44 PM CDT [facility] COMMENT Special stain and/or immunohistochemical results are interpreted with controls that demonstrate appropriate staining reactions. Note on use of immunocytochemistry reagents: This test was developed and its performance characteristic determined by [facility], Department of Laboratory Medicine. It has not [...] WF, WB and WH are performed by [address], [address]. All other case types are performed by [address] [facility], [address]. 04/30/2018 2:44 PM T [facility] Tissue (Other, specify) 04/30/2018 12:06 PM CDT 04/30/2018 12:07 PM CDT Jennifer Waters MD PATHOLOGY/CYTOLOGY O RDERABLES [facility]# [id number] [address] [place] [address] documented in this encounter Visit Diagnoses Not on filedocumented in this encounter Care Teams Data Migration Consultant Relationship Specialty Start Date End Date Emerson Allen MD [address] [place] [phone] PCP - General Family Practice 04/27/18 documented as of this encounter
--- OUTSIDE RECORDS SUMMARY | 2024-10-13 04:23 | XMS_ITS | Encounter Summary ---
Author Organization [facility] Address [address] [place] [address] Care Team Providers Care Electronic Technologist Name Role Phone Unavailable Primary Care Provider Unavailabl e Encounter Details Date Type Department Care Team (Latest Contact Info) Description 12/21/2007 Orders Only HIS CONVERSION Conversion, History Social History Tobacco Use Types Packs/Day Years Used Date Smoking Tobacco: Never Assessed Sex and Gender Information Value Date Recorded Sex Assigned at Not on file Gender Identity Not on file Sexual Orientation Not on file documented as of this encounter Progress Notes * Conversion, History - 03/13/2009 3:[address] [address] cc: Basilio Matthew MD SURGEON Basilio Matthew MD PREOPERATIVE DIAGNOSIS Recurrent in-stent stenosis aortic bifurcation. 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 OPERATION NAME Abdominal aortogram with bilateral lower extremity run-offs, ultrasound guidant access of bilateral common femoral arteries, placement of covered stents, aortic bifurcation x2. ANESTHESIA Local with IV sedation. INDICATIONS FOR PROCEDURE The patient is a 42-year-old woman with previously placed bilateral common iliac artery stents. These kissing stents had developed in-stent stenosis and underwent balloon angioplasty a year ago. She returned with a recurrent in-stent stenosis and was recommended to have covered stents placed. PROCEDURE IN DETAIL The patient was brought to the Angio Suite and placed in the supine position. Peripheral IV access was established. IV analgesia with morphine and Versed were used for sedation. 1% Lidocaine plus 0.5% Marcaine used for local. Both groins were sterilely prepped and draped. Local was infiltrated in the skin and subcutaneous tissues of the right groin. Using the ultrasound the right common femoral artery was identified and successfully cannulated with an angio-access needle. Through this a 035 Loyd guide wire was advanced and over this a 5 Israeli sheath was placed. A 5 Israeli pigtail catheter was then advanced into the upper abdominal aorta. AP views were obtained. The catheter was withdrawn. The aortic bifurcation, oblique views of the pelvis then performed. The left common femoral artery was then cannulated with ultrasound guidance and a 035 Loyd guide wire was advanced up the left side. 7 Israeli sheaths were placed in the common femoral arteries and 2 atrium iCAST covered stents measuring 7 mm in diameter, 38 mm in length were then advanced into the aortic bifurcation with overlap of the existing bare metal stents for more than a centimeter up into the distal aorta. These stent grafts were simultaneously deployed with the inflator and then post- dilated with two 8 mm balloons in the proximal segment in order to insure that there was full expansion within the distal aorta. Post-angiogram pictures were obtained. The catheters and wires were removed. The sheaths were flushed with heparinized saline, secured to the skin with 2-0 silk suture. The patient was returned to the recovery area in stable condition. DESCRIPTION OF X-RAY FINDINGS Via a pigtail catheter in the upper abdominal aorta, AP views were obtained. This shows single bilateral renal arteries without stenosis. The infrarenal aorta was without significant disease with lumbar arteries identified in the [id number] segment. There was evidence of 2 stents in the proximal and common iliac arteries extending up into the distal aorta with in-stent stenosis at the proximal end of the stents. The common internal and external iliac arteries were patent bilaterally without significant stenosis down to the level of the femoral arteries bilaterally. Covered stents were then placed within the existing bare metal stents overlapping into the distal aorta and mid-common iliac arteries. Post- deployment of the stents and aortogram has been obtained and in the AP and oblique view this shows patent iliac stents without residual stenosis. No signs of dissection or extravasation identified. SUMMARY Proximal in-stent stenosis bilateral common iliac stents successfully treated with bilateral covered stent grafts. SW:MEDQ Dictated by: Basilio Matthew MD Basilio Matthew MD Result Type: OPERATIVE REPORT Result Date: January 08, 2008 11:06 AM Result Status: UNREVIEWED * Conversion, History - 03/13/2009 3:[address] [place], [place] [address] BILATERAL LOWER EXTREMITY ARTERIAL DOPPLER/ ANKLE SCREEN WITH EXERCISE TESTING DATE OF STUDY December 20, 2007. INDICATION FOR STUDY The patient is status post bilateral iliac artery stents. The right brachial artery pressure is equal to 135. The highest ankle pressure on the right is equal to 122. The right digit pressure is equal to 59. The left brachial artery pressure is equal to 133. The highest ankle pressure on the left is equal to 93 and the left digit pressure is equal to 77. There is evidence of biphasic waveforms of the right tibial vessels. There is evidence of monophasic and biphasic signals of the left tibial vessels. The right ABE at rest is equal to 0.90. The left ABE at rest is equal to 0.69. Following exercise the right ABE was equal to 0.72. The left ABE was equal to 0.47. IMPRESSION 1. Mild arterial insufficiency of the right lower extremity at rest. 2. Mild to moderate arterial insufficiency of the left lower extremity at rest. 3. Following exercise there is a moderate drop in ankle brachial index bilaterally suggestive of a possible proximal stenosis. KD:MEDQ Dictated by: Aj Chao M.D. Aj Chao M.D. Result Type: BLOOD FLOW Result Date: December 20, 2007 02:55 PM Result Status: UNREVIEWED * Conversion, History - 03/13/2009 3:[address], [place] [address] cc: Basilio Matthew MD Ms. Wong is a 42-year-old woman with peripheral vascular disease who has recurrent bilateral claudication. This is more severely affecting her left leg than her right leg. She has had previous bilateral iliac artery stents placed in 2004 which developed in-stent stenosis and required repeat balloon dilatation in March 2006. She as been managed conservatively since that time. She has been able to stop smoking and she is on cholesterol medications, however, her activities are still limited due to her inability to ambulate freely. She has had no rest pain or non-healing ulcers. Recent vascular lab studies show right ankle-arm index of 0.9 at rest, that drops to 0.72 with exercise; left side is 0.69 at rest, drops to 0.47 with exercise. Duplex imaging shows significant velocity elevations within the stents in the proximal common iliac arteries bilaterally with velocities of 374 on the right, and 479 on the left. PAST SURGICAL HISTORY Significant for previous procedures described above. She has also had vocal cord polyps removed. MEDICATIONS 1. Simvastatin. 2. Aspirin. ALLERGIES No drug allergies. REVIEW OF SYSTEMS Otherwise negative. SOCIAL HISTORY The patient is . She is presently a nonsmoker. She is active. She has children. 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 PHYSICAL EXAMINATION GENERAL: A healthy appearing woman in no acute distress. CHEST: Clear. HEART: Regular rate and rhythm. ABDOMEN: Soft and nontender EXTREMITIES: Extremities revealed no evidence of acute ischemia. She has weakly palpable right femoral pulse, absent left femoral pulse, weakly palpable dorsal pedal pulse, absent left pedal pulse. IMPRESSION Recurrent in-stent stenosis of bilateral common iliac stents. Treatment options were discussed with the patient. I have recommended that she undergo repeat arteriogram with catheter intervention that could include angioplasty, additional stents of either bare metal or covered stents in order to treat this problem. The nature of the procedure and risks were discussed with the patient including potential need for additional interventions or open surgical procedures. She is scheduled for this procedure on 01/01/08. SW:MEDKhai Dictated by: Basilio Matthew MD Basilio Matthew MD Date/Time No Change Surgeon Initials Or Date/Time Changes Surgeon Initials Result Type: HISTORY AND PHYSICAL Result Date: December 21, 2007 12:41 PM Result Status: UNREVIEWED documented in this encounter Plan of Treatment Not on file documented as of this encounter Visit Diagnoses Not on filedocumented in this encounter
--- OUTSIDE RECORDS SUMMARY | 2024-10-13 04:23 | XMS_ITS | Encounter Summary ---
Author Organization [facility] Address [address] [place] [address] Care Team Providers Care Header Machine Operator Name Role Phone Emerson Allen MD Primary Care Provider Reason for Visit * Auth/Cert Specialty Diagnoses / Procedures Referred By Denton t Referred To Contact Diagnoses Lobular carcinoma in situ of right breast RIGHT BREAST CA Procedures [place] BREAST SURGERY PROCEDURE UNLISTED [place] REPR CMPL WND TRUNK 2.6-7.5CM Right Debridement and Revision of Mastectomy Jennifer Waters MD [address] [phone] Referral ID Status Reason Start Date Expiration Date Visits Re quested Visits Authorized [id number] 06/06/2018 1 1 Encounter Details Date Type Department Care Team (Late st Contact Info) Description 06/08/2018 7:20 AM CDT - 06/08/2018 8:40 AM CDT Surgery [facility] SURGERY [facility] [id number] [place] [address] [address] [place] [address] Jennifer Waters MD [address] [place] [address] BREAST INCISION AND DRAINAGE--ACTUAL DEBRIDEMENT AND REVISION OF BILATERAL MASTECTOMY, DRAIN PLACEMENT Surgery Details Date/Time Status Location OR Service Patient Class Case Class Case Type Trauma Case? 06/08/2018 7:20 AM Posted [facility] CC OR CC OR 03 General Surgery Surgical OP/Extended Care Elective No Panel 1 Procedure LRB Anes Op Region Wound Class Comments BREAST INCISION AND DRAINAGE --ACTUAL DEBRIDEMENT AND REVISION OF BILATERAL MASTECTOMY, DRAIN PLACEMENT Bilateral General Breast Clean-I Surgeon Surgeon Role Service Panel Jennifer Waters MD Primary General Surgery 1 Case Notes ANTHEM OUT OF STATE PP CPT PP documented in this encounter Social History Tobacco [...] Sign Reading Time Taken Comments Blood Pressure 124/62 06/08/2018 6:39 AM CDT Pulse 75 06/08/2018 6:39 AM CDT Temperature 36.9 ??C (98.4 ??F) 06/08/2018 6:39 AM CD T Respiratory Rate 23 06/08/2018 6:39 AM CDT Oxygen Saturation 99% 06/08/2018 6:39 AM CDT Inhaled Oxygen Concentration - - Weight 69.9 kg (154 lb) 06/08/2018 6:39 AM CDT Height 154.9 cm (5' 1 ) 06/08/2018 6:39 AM CDT Body Mass Index 29.1 06/08/2018 6:39 AM CDT documented in this encounter Discharge Instructions * Discharge Instructions* Jennifer Waters MD - 06/08/2018 9:26 AM CDT [facility] BREAST SURGERY [address] [place] [address] Post operative instructions: Activity: ___Walk around every [...] PLEASE EMAIL IN 2 DAYS VIA MY Compression KineticsY -TO LET ME KNOW HOW YOU ARE DOING -TO LET ME KNOW IF YOU NEED REFILLS -ANY PROBLEMS OR QUESTIONS -TO LET ME KNOW DRAIN OUTPUTS If you have any questions, please call the office at between the hours of 9AM and 5PMMonday through Monday. After hours for emergencies, you may call this number to be connected to theServiceRelated service. documented in this encounter Medications at [...] HEADACHE RETURNS. 12/13/2017 fluticasone (FLONASE) 50 mcg/spray [place], Suspension Administer 2 Sprays in each nostril [...] hadbreast cancer. 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 She is . She drinks rarely and is a 35 year pack smoker. 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 Para Term AB Living ?? 3 2 ?? SAB TAB Ectopic Multiple Live Births ? Obstetric Comments ?? Age @ onset of menses:13 Age @ first live :25 ? PMH: Past??Medical??History Past Medical History: Diagnosis Date ??? Lobular carcinoma in situ (LCIS) of right breast 12/26/2017 ?? [facility] ?? PSH: Past??Surgical??History Past Surgical History: Procedure Laterality Date ??? BIOPSY BREAST Right 12/2017 ??? HX BUNIONECTOMY ?? 2017 ??? HX ENDOSCOPIC EXTRALARYNGEAL VOCAL CORD LATERALIZATION W/ MLB ?? 2013 ??? HX GALLBLADDER SURGERY ?? 1998 ??? [...] 200 mg. ? fluticasone (FLONASE) 50 mcg/spray [place], Suspension 2 Sprays. ? Lactobacillus acidophilus 10 [...] General endotracheal. ANESTHESIOLOGIST Dr. Malcolm; Diaz [place]. UNDERWEAR CUTTER Hilario Villafana INDICATIONS This is a 53 [...] complex(A) LOS MCG/ML 06/13/2018 8:41 AM CDT [facility] CULTURE ENTEROCOCCUS FAECALIS(A) LOS MCG/ML 06/13/2018 8:41 AM CDT [facility] GRAM STAIN No organisms observed 06/13/2018 8:41 AM CDT [facility] GRAM STAIN 1+ (Rare or Occasional) WBC 06/13/2018 8:41 AM T [facility] Lesion/Drainage Fluid RIGHT BREAST STRUCTURE / Unknown Collection / Unknown 06/08/2018 8:19 AM CDT 06/08/2018 1:13 PM CDT Narrative Organism Antibiotic Method Susceptibility Citrobacter freundii complex CEFTRIAXONE LOS MCG/ML <=1 mcg/mL: Susceptible Citrobacter freundii complex CIPROFLOXACIN LOS MCG/ML <=0.25 mcg/mL: Susceptible Citrobacter freundii complex GENTAMICIN LOS MCG/ML <=1 mcg/mL: Susceptible Citrobacter freundii complex PIPERACILLIN/ TAZOBACTAM OLS MCG/ML <=4 mcg/mL: Susceptible Citrobacter freundii complex [...] Waters MD MICROBIOLOGY - GENER AL ORDERABLES Performing Organization Address City/State/[facility] Co de Phone Number [facility]# [phone] [address] [place] [place] [address] documented in this encounter Visit Diagnoses Not on filedocumented in this encounter Administered Medications Inactive Administered Medications - up to 3 most recent administrations Medication Order MAR Action Action Date Dose Rate Site bupivacaine 0.5 % (SENSORCAINE,MARCAINE) injection INTRA-PROCEDURE PRN, Starting on Mon06/08/18 at 0852, Until Mon06/08/18 at 0853, Routine, Anesthesia Intra-op Given 06/08/2018 8:52 AM CDT 30 mL diphenhydrAMINE (BENADRYL) injection 12.5 mg 12.5 mg, [...] PACU documented in this encounter Care Teams Header Machine Operator Relationship Specialty Start Date End Date Emerson Allen MD [address] [place] [phone] PCP - General Family Practice 04/27/18 documented as of this encounter
--- OUTSIDE RECORDS SUMMARY | 2024-10-13 04:23 | XMS_ITS | Encounter Summary ---
Author Organization [facility] Address [address] [place] [address] Care Team Providers Care Blending Plant Operator Name Role Phone Emerson Allen MD Primary Care Provider Encounter Details Date Type Department Care Team (Late st Contact Info) Description 09/21/2005 Outpatient Historical [facility] [place] Supp Svcs Blood Flow [address] [place] [address] Jacob Ramos MD [address] [facility] [address] [place], [place] [id number] Social History Tobacco Use Types Packs/Day Years Used Date Smoking Tobacco: Never Assessed Sex and Gender Information Value Date Recorded Sex Assigned at Not on file Gender Identity Not on file Sexual Orientation Not on file documented as of this encounter Plan of Treatment Not on file documented as of this encounter Visit Diagnoses Not on filedocumented in this encounter Care Teams Blending Plant Operator Relationship Specialty Start Date End Date Emerson Allen MD [address] [place] [phone] PCP - General Family Practice 04/27/18 documented as of this encounter
--- OUTSIDE RECORDS SUMMARY | 2024-10-13 04:23 | XMS_ITS | Encounter Summary ---
Author Organization [facility] Address [address] [place] [address] Care Team Providers Care Icer Hand Name Role Phone Emerson Allen MD Primary Care Provider Encounter Details Date Type Department Care Team (Late st Contact Info) Description 06/06/2018 Orders Only [facility] [address] [place] [address] Jennifer Waters MD [address] [place] [address] Social History Tobacco Use Types [...] on filedocumented in this encounter Care Teams Icer Hand Relationship Specialty Start Date End Date Emerson Allen MD [address] [place] [address] [address] [place] [phone] PCP - General Family Practice 04/27/18 documented as of this encounter
--- OUTSIDE RECORDS SUMMARY | 2024-10-13 04:23 | XMS_ITS | Encounter Summary ---
Author Organization [facility] Address [address] [place] [address] Care Team Providers Care Blood And Plasma Laboratory Assistant Name Role Phone Emerson Allen MD Primary Care Provider Encounter Details Date Type Department Care Team (Late st Contact Info) Description 05/24/2018 Chart Note [facility] BREAST SURGERY - [place] [facility] [address] [place] [address] Jennifer Waters MD [address] [place] [address] Social History Tobacco Use Types [...] on filedocumented in this encounter Care Teams Blood And Plasma Laboratory Assistant Relationship Specialty Start Date End Date Emerson Allen MD [address] [place] [address] [address] [place] [phone] PCP - General Family Practice 04/27/18 documented as of this encounter
--- OUTSIDE RECORDS SUMMARY | 2024-10-13 04:23 | XMS_ITS | Encounter Summary ---
Author Organization [facility] Address [address] [place] [address] Care Team Providers Care Chemical Equipment Repairer Name Role Phone Emerson Allen MD Primary Care Provider Encounter Details Date Type Department Care Team (Late st Contact Info) Description 04/30/2018 Orders Only [facility] BREAST SURGERY - [place] [facility] [address] [place] [address] Jennifer Waters MD [address] [place] [address] Lobular carcinoma in situ (LCIS) of right breast (Primary Dx) Social History Tobacco Use Types [...] in situ (LCIS) of right breast- Primary documented in this encounter Care Teams Chemical Equipment Repairer Relationship Specialty Start Date End Date Emerson Allen MD [address] [facility] [address] [place] [address] PCP - General Family Practice 04/27/18 documented as of this encounter
--- OUTSIDE RECORDS SUMMARY | 2024-10-13 04:23 | XMS_ITS | Encounter Summary ---
Author Organization [facility] Address [address] [place] [address] Care Team Providers Care Bench Lay Out Technician Name Role Phone Emerson Allen MD Primary Care Provider Reason for Visit * Reason Comments Post-op Visit Encounter Details Date Type Department Care Team (Late st Contact Info) Description 06/04/2018 10:30 AM CDT Office Visit [facility] [address] [place] [address] Jennifer Waters MD [address] [place] [address] Lobular carcinoma in situ (LCIS) of [...] Sign Reading Time Taken Comments Blood Pressure 126/80 06/04/2018 10:23 AM CDT Pulse - - Temperature - - Respiratory Rate - - Oxygen Saturation - - Inhaled Oxygen Concentration - - Weight 74.8 kg (165 lb) 06/04/2018 10:23 AM CDT Height 154.9 cm (5' 1 ) 06/04/2018 10:23 AM CDT Body Mass Index 31.18 06/04/2018 10:23 AM CDT documented in this encounter Progress Notes * Jennifer Waters MD - 06/04/2018 10:51 AM CDT Status post bilateral mastectomy and [...] hadbreast cancer. 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 She is . She drinks rarely and is a 35 year pack smoker. BP 126/80 Ht 5' 1 (1.549 m) Wt 74.8 kg (165 lb) BMI 31.18 kg/m?? The bilateral chest wall incisions are healing very nicely. Drains have been removed but she has recurrent seroma which was drained today by the nurse She has patches of skin necrosis right greater than left that still has to demarcate The range of motion is excellent I discussed her pathology with her. The nurses discussed lymphedema precautions with her. I'll see her back in 1 week for recheck of the seroma She is instructed to use compressive chest dressings to minimize seroma formation The patient is asked to make an attempt to improve diet and exercise patterns to aid in breast cancer risk reduction. Jennifer Waters MD FACS * Ashia Delaney RN - 06/04/2018 10:24 AM CDT Patient comes in today for f/u on bilateral mastectomy and SNB done on 05/16/18. 180 cc's aspirated from right mastectomy site, connected to left side. No erythema. Patien reports slight amount of drainage from right side at scab. No pain per patient. Dr Waters saw patient and discussed pathology. documented in this encounter Plan of Treatment Not on file documented as of this encounter Visit Diagnoses Diagnosis Lobular carcinoma in situ (LCIS) of right breast- Primary S/P bilateral mastectomy Acquired absence of breast and nipple documented in this encounter Care Teams Bench Lay Out Technician Relationship Specialty Start Date End Date Emerson Allen MD [address] [place] [phone] PCP - General Family Practice 04/27/18 documented as of this encounter
--- OUTSIDE RECORDS SUMMARY | 2024-10-13 04:23 | XMS_ITS | Encounter Summary ---
Author Organization [facility] Address [address] [place] [address] Care Team Providers Care Financial Professional Name Role Phone Emerson Allen MD Primary Care Provider Encounter Details Date Type Department Care Team (Late st Contact Info) Description 04/30/2018 Orders Only [facility] BREAST SURGERY - [place] [facility] [address] [place] [address] Jennifer Waters MD [address] [place] [address] Lobular carcinoma in situ (LCIS) [...] Primary documented in this encounter Care Teams Financial Professional Relationship Specialty Start Date End Date Emerson Allen MD [address] [facility] [facility] [address] [place] [phone] PCP - General Family Practice 04/27/18 documented as of this encounter
== END 2024-10-06 10:05 | disposition home or self-care (01) ==
PROVIDERS: Emergency Provider Emergency Medicine; PCP Hospitalist
DX: M79.662 Pain in left lower leg (principal); Z79.82 Long term (current) use of aspirin; C50.919 Malignant neoplasm of unspecified site of unspecified female breast; F17.210 Nicotine dependence, cigarettes, uncomplicated
CPT/HCPCS: 93971; 99284

== ENCOUNTER 2025-07-10 16:13 | Emergency (ER) | payer OTHER, SELFPAY ==
--- NOTE | ~2025-07-10 | XR_ITS ---
EXAMINATION: XR hand RT min 3V, 07/10/2025 17:05 CDT HISTORY: fall bruising and swelling . Metacarpals 3/4/5 COMPARISON: No comparisons available. Findings: Comminuted fracture of the proximal fifth metacarpal with intra-articular extension. No significant degenerative changes. At the Soft tissue swelling. Impression: Fifth metacarpal fracture Reviewed, dictated and finalized at location P. Impression: Fifth metacarpal fracture
--- NOTE | 2025-07-10 16:16 | ED.FALL ---
HPI - Fall General Chief Complaint: Fall <Kelley Restrepo APRN - Last Filed: 07/10/25 19:56> Stated Complaint: Fall Injury/ Right Hand <Kelley Restrepo APRN - Last Filed: 07/10/25 19:56> Time Seen by Provider: 07/10/25 16:18 <Kelley Restrepo APRN - Last Filed: 07/10/25 19:56> Source: patient, RN notes reviewed and old records reviewed <Kelley Restrepo APRN - Last Filed: 07/10/25 19:56> Mode of arrival: ambulatory <Kelley Restrepo APRN - Last Filed: 07/10/25 19:56> Limitations: no limitations <Kelley Restrepo APRN - Last Filed: 07/10/25 19:56> History of Present Illness HPI Narrative: 60-year-old female presents to the [facility] after tripping and falling approximately 1 or 130 today. Patient reports that she tripped and fell. Landing on her hand. Bruising and swelling noted to the right hand above metacarpals 3 4 in 5. States that she just bumped her head and her glasses scratched her. Denies headache. Denies blurry vision or change in vision. No neck or back pain. Patient with no pain to the shoulders or elbows. No pain to the wrist. No snuffbox tenderness. States that she has been icing it and took ibuprofen Patient is right-hand dominant <Kelley Restrepo APRN - Last Filed: 07/10/25 19:56> Onset (ago): hour(s) (3) <Kleley Restrepo APRN - Last Filed: 07/10/25 19:56> Loss of consciousness: none <Kelley Restrepo APRN - Last Filed: 07/10/25 19:56> Symptoms prior to fall: none <Kelley Restrepo APRN - Last Filed: 07/10/25 19:56> Related Data Home Medications: Home Medications ?Medication ?Instructions ?Recorded ?Confirmed ?Last Taken ?Type atorvastatin 40 mg tablet 40 mg PO DAILY 04/10/24 04/10/24 Unknown History clopidogrel 75 mg tablet 75 mg PO DAILY 07/12/3004/18/24 04/11/24 History coenzyme Q10 100 mg capsule 400 mg PO DAILY 04/10/24 04/10/24 Unknown History (CoQ-10) metoprolol succinate 50 mg 50 mg PO DAILY 04/10/24 04/10/24 Unknown History tablet,extended release 24 hr aoqirczt-giz-txewf acid 0.4 1 tablet PO DAILY 04/10/24 04/18/24 04/14/24 History mg-lycopene 300 mcg-lutein 250 mcg tablet (Centrum Silver) <Kelley Restrepo, MICROGRAPHICS SERVICES SUPERVISOR - Last Filed: 07/10/25 19:56> Allergies/Adverse Reactions: Allergies Allergy/AdvReac Type Severity Reaction Status Date / Time aprepitant (From Emend) Allergy Severe Anaphylaxis Verified 07/10/25 16:37 fosaprepitant (From Emend) Allergy Severe Anaphylaxis Verified 07/10/25 16:37 adhesive tape Allergy Intermediate Blister Verified 07/10/25 16:37 iodine Allergy Intermediate Hives Verified 07/10/25 16:37 <Kelleyharleen Restrepo, MICROGRAPHICS SERVICES SUPERVISOR - Last Filed: 07/10/25 19:56> Review of Systems Review of Systems: All systems reviewed & are unremarkable except as noted in HPI and below <Kelleyharleen Restrepo, MICROGRAPHICS SERVICES SUPERVISOR - Last Filed: 07/10/25 19:56> Constitutional: Constitutional: Reports no additional constitutional complaints <Kelley AChamp Restrepo, MICROGRAPHICS SERVICES SUPERVISOR - Last Filed: 07/10/25 19:56> ENT: Reports system reviewed and no additional complaints, except as documented <Kelley Restrepo MICROGRAPHICS SERVICES SUPERVISOR - Last Filed: 07/10/25 19:56> Cardiovascular: Cardiovascular: Reports no additional cardiovascular complaints, Denies chest pain and Denies dyspnea <Kelley AChamp Restrepo, MICROGRAPHICS SERVICES SUPERVISOR - Last Filed: 07/10/25 19:56> Respiratory: Respiratory: Reports no additional respiratory complaints, Denies chest congestion, Denies cough and Denies dyspnea <Kelley AChamp Restrepo, MICROGRAPHICS SERVICES SUPERVISOR - Last Filed: 07/10/25 19:56> Musculoskeletal: Musculoskeletal: Reports as per HPI <Kelley Restrepo, MICROGRAPHICS SERVICES SUPERVISOR - Last Filed: 07/10/25 19:56> Integumentary/Breasts: Skin/Breast: Reports system reviewed and no additional complaints, except as docu <Kelley Restrepo APRN - Last Filed: 07/10/25 19:56> Neurologic: Reports system reviewed and no additional complaints, except as documented <Kelley Restrepo APRN - Last Filed: 07/10/25 19:56> [facility] Past Medical History Medical History: Medical History History of breast cancer PVD (peripheral vascular disease) Tachy-chris syndrome <Kelley Restrepo APRN - Last Filed: 07/10/25 19:56> Surgical History Surgical History: Surgical History History of bilateral mastectomy <Kelley Restrepo APRN - Last Filed: 07/10/25 19:56> Family History Family History: Family History Grandparent Family history of thyroid disease Family history of obesity Cerebrovascular accident Family history of Alzheimer's disease Diabetes mellitus Mother Family history of obesity Family history of cataracts Family history of diabetes mellitus in first degree relative Father Hypertension Family history of alcoholism Family history of atrial fibrillation <Kelley Restrepo APRN - Last Filed: 07/10/25 19:56> Social History Social History: Social History Smoking packs per day: 1 Smoking cigarettes per day: 20.0 Years smoked: 40 Smoking pack-years: 40.00 Smoking status: Current every day smoker Tobacco type: cigarettes Second hand tobacco smoke exposure: Yes Smoking end date: 10/09/07 Alcohol intake: never Living arrangements: with family Spiritual care concerns: No <Kelley Restrepo APRN - Last Filed: 07/10/25 19:56> Comments At the time of my signature, I reviewed and agree with the nursing past medical, surgical, social, and family history. There is no relevant family history pertinent to the patient complaint. <Kelley Restrepo APRN - Last Filed: 07/10/25 19:56> Exam Const: General: cooperative, healthy appearing, comfortable, no acute distress, well developed, alert and well nourished <Kelley A. Lauro, [facility] - Last Filed: 07/10/25 19:56> Nutritional Appearance: well nourished <Kelley A. Lauro, [facility] - Last Filed: 07/10/25 19:56> Orientation/consciousness: patient oriented x3 <Kelley A. [facility], [facility] - Last Filed: 07/10/25 19:56> Limitations: no limitations <Kelley A. Lauro, [facility] - Last Filed: 07/10/25 19:56> HENMT: Head: normal to inspection <Kelley A. Lauro, [facility] - Last Filed: 07/10/25 19:56> Ears: hearing grossly normal bilaterally <Kelley A. Lauro, [facility] - Last Filed: 07/10/25 19:56> Face/Nose/Sinus: Normal external nose present <[facility]elley A. [facility], [facility] - Last Filed: 07/10/25 19:56> Face and sinus: normal facial exam and face symmetric <Kelley A. [facility], [facility] - Last Filed: 07/10/25 19:56> Eyes: General: appearance normal, both eyes and all related structures <Kelley A. Lauro, MICROGRAPHICS SERVICES SUPERVISOR - Last Filed: 07/10/25 19:56> Alignment and Position: alignment normal <Kelley A. [facility], [facility] - Last Filed: 07/10/25 19:56> Periorbital: periorbital findings normal <Kelley A. Lauro, MICROGRAPHICS SERVICES SUPERVISOR - Last Filed: 07/10/25 19:56> Eyelids: eyelids normal <Kelley A. [facility], [facility] - Last Filed: 07/10/25 19:56> Neck: Neck: normal visual inspection, full ROM, no lymphadenopathy and no meningeal signs <Kelley A. Lauro, MICROGRAPHICS SERVICES SUPERVISOR - Last Filed: 07/10/25 19:56> Chest: Chest palpation & inspection: normal inspection of the chest <Kelley A. Lauro, MICROGRAPHICS SERVICES SUPERVISOR - Last Filed: 07/10/25 19:56> Resp: Effort & Inspection: normal respiratory effort and able to speak in complete sentences <Kelley A. Lauro, MICROGRAPHICS SERVICES SUPERVISOR - Last Filed: 07/10/25 19:56> Cardio: Rate: regular rate <Kelley A. RomanadrianSHAUNAN - Last Filed: 07/10/25 19:56> Back/Spine/Pelvis: Back: No back tenderness <Kelley A. RomanadrianSHAUNAN - Last Filed: 07/10/25 19:56> Skin: General skin exam: normal color and no rashes or lesions noted <Kelley A. Topadrian, MICROGRAPHICS SERVICES SUPERVISOR - Last Filed: 07/10/25 19:56> Neuro: General: patient oriented x3, gait normal, moves all extremities and no meningeal signs <Kelley A. Topadrian, MICROGRAPHICS SERVICES SUPERVISOR - Last Filed: 07/10/25 19:56> Cognition (Neuro): normal cognition <Kelley A. Topadrian, MICROGRAPHICS SERVICES SUPERVISOR - Last Filed: 07/10/25 19:56> Speech: normal speech <Kelley A. Topadrian, MICROGRAPHICS SERVICES SUPERVISOR - Last Filed: 07/10/25 19:56> Gait exam (Neuro): Normal gait present <Kelley A. Romanadrian, MICROGRAPHICS SERVICES SUPERVISOR - Last Filed: 07/10/25 19:56> Extrem: General: normal to inspection, full ROM, capillary refill normal and normal gait <Kelley A. Romanadrian, MICROGRAPHICS SERVICES SUPERVISOR - Last Filed: 07/10/25 19:56> Right upper extremity: Extremity exam: right hand normal capillary refill, tenderness of the dorsal hand over the 3rd metacarpal, over the 4th metacarpal and over the 5th metacarpal, vascular exam radial pulse present and normal capillary refill, abnormal ROM of finger pain with active ROM, swelling of the dorsal hand over the 3rd metacarpal, over the 4th metacarpal and over the 5th metacarpal and ecchymosis of the dorsal hand over the 3rd metacarpal, over the 4th metacarpal and over the 5th metacarpal; no lacerations and no foreign bodies <Kelley A. Lauro MICROGRAPHICS SERVICES SUPERVISOR - Last Filed: 07/10/25 19:56> Hand/finger images:  1. Bruising, swelling, tenderness <Kelley A. Lauro MICROGRAPHICS SERVICES SUPERVISOR - Last Filed: 07/10/25 19:56> Psych: Appearance: grossly normal and well kempt <Kelley A. Lauro, MICROGRAPHICS SERVICES SUPERVISOR - Last Filed: 07/10/25 19:56> Mental Status: mental status grossly normal <Kelley Restrepo APRN - Last Filed: 07/10/25 19:56> Speech and movement: Normal speech and movement present and Clear speech present <Kelley Restrepo APRN - Last Filed: 07/10/25 19:56> Affect: normal affect <Kelley Restrepo APRN - Last Filed: 07/10/25 19:56> Attitude: cooperative <Kelley Restrepo APRN - Last Filed: 07/10/25 19:56> Course Course Emergency Course: Patient with a trip and fall, concern for fracture of the hand. We at with all toe do not have x-ray available, discussed this with patient. Options included going to an ER, going to [facility] which patient at 1st declined states that she has an appointment with her PCM at 0800 tomorrow morning. Sister's sitting at side, will go to [facility] [facility] for the x-ray. Report given to Magaly QUINONEZ <Kelley Restrepo APRN - Last Filed: 07/10/25 19:56> Level of Care: Express Care Visit <Kelley Restrepo APRN - Last Filed: 07/10/25 19:56> Vital Signs Vital signs: Vital Signs Temperature 98 F 07/10/25 16:30 Pulse Rate 83 07/10/25 16:30 Respiratory Rate 18 07/10/25 16:30 Blood Pressure 159/71 H 07/10/25 16:30 Pulse Oximetry 98 07/10/25 16:30 Oxygen Delivery Room Air 07/10/25 16:30 Temperature 98 F 07/10/25 16:30 Pulse Rate 83 07/10/25 16:30 Respiratory Rate 18 07/10/25 16:30 Blood Pressure 159/71 H 07/10/25 16:30 Pulse Oximetry 98 07/10/25 16:30 Oxygen Delivery Room Air 07/10/25 16:30 Reviewed <Kelley Restrepo APRN - Last Filed: 07/10/25 19:56> Vital Signs Temperature 98 F 07/10/25 16:30 Pulse Rate 83 07/10/25 16:30 Respiratory Rate 18 07/10/25 16:30 Blood Pressure 159/71 H 07/10/25 16:30 Pulse Oximetry 98 07/10/25 16:30 Oxygen Delivery Room Air 07/10/25 16:30 Temperature 98 F 07/10/25 16:30 Pulse Rate 83 07/10/25 16:30 Respiratory Rate 18 07/10/25 16:30 Blood Pressure 159/71 H 07/10/25 16:30 Pulse Oximetry 98 07/10/25 16:30 Oxygen Delivery Room Air 07/10/25 16:30 <ELLA Bhardwaj - Last Filed: 07/10/25 17:49> MDM - Fall MDM Narrative Medical decision making narrative: Patient sitting in exam room. Patient is nontoxic, vitals stable. Patient presents for a trip and fall mostly concern for hand pain. Patient denies any other symptoms at this time Due to unavailability of x-ray currently will send to [facility]. Awaiting results <Kelley Restrepo APRN - Last Filed: 07/10/25 19:56> Patient sitting in exam room. Patient is nontoxic, vitals stable. Patient presents for a trip and fall mostly concern for hand pain. Patient denies any other symptoms at this time Due to unavailability of x-ray currently will send to [place]. Awaiting results Stephanie Sepulveda LENS BLOCKER- Patient arrived at [facility] express care, x-rays performed. Patient currently has ice placed on her hand. Agree with previously charted assessment from Kelley Restrepo LENS BLOCKER. inform patient of x-ray results. Educated patient on discharge instructions, follow-up measures, care for splint, and pain medications. <ELLA Bhardwaj - Last Filed: 07/10/25 17:49> Differential Diagnosis Differential diagnosis: Likely syncope, fracture of wrist and other (Hand fracture) <Kelley Restrepo APRN - Last Filed: 07/10/25 19:56> Imaging Data Radiologist's impression: EXAMINATION: XR hand RT min 3V, 07/10/2025 17:05 CDT HISTORY: fall bruising and swelling . Metacarpals 3/4/5 COMPARISON: No comparisons available. Findings: Comminuted fracture of the proximal fifth metacarpal with intra-articular extension. No significant degenerative changes. At the Soft tissue swelling. Impression: Fifth metacarpal fracture <Kelley Restrepo APRN - Last Filed: 07/10/25 19:56> Critical Care Time Critical Care Time Critical Care Time: No <Kelley Restrepo APRN - Last Filed: 07/10/25 19:56> Discharge Plan Discharge Clinical Impression: Closed fracture of 5th metacarpal <Kelley Restrepo APRN - Last Filed: 07/10/25 19:56> Patient Disposition: Home <Kelley Restrepo APRN - Last Filed: 07/10/25 19:56> Condition: Stable <Kelley Restrepo APRN - Last Filed: 07/10/25 19:56> Instructions: Antibiotic Form, Hand Fracture (ED) <Kelley Restrepo APRN - Last Filed: 07/10/25 19:56> Additional Instructions: There is a fracture shown your x-ray. We have placed you in an immobilization keep this all times. this is a temporary cast in you cannot get this wet. May cover with a plastic bag retract back to shower. Call the orthopedic physician you have been given to schedule an appointment as soon as possible. Ensure to take a disc of your x-ray results with you. Ice to the area 15-20 minutes 4-6 times a day until follow up with orthopedics. Minimize activities and rest the affected area as much as possible. 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 You may take over the counter tylenol and ibuprofen as needed for pain. May use the tramadol as needed for severe pain. This medication can make you drowsy do not drive, drink alcohol or operate heavy machinery while taking this medication. If you notice significantly increased pain, redness, and numbness, or tingling does to the emergency room for further evaluation of symptoms. <Kelley Restrepo APRN - Last Filed: 07/10/25 19:56> Patient Language: Setswana <Kelley Restrepo APRN - Last Filed: 07/10/25 19:56> Prescriptions: New tramadol 50 mg tablet 50 mg PO Q6H PRN (Reason: pain) Qty: 14 0RF No Action atorvastatin 40 mg tablet 40 mg PO DAILY metoprolol succinate 50 mg tablet extended release 24 hr 50 mg PO DAILY clopidogrel 75 mg tablet 75 mg PO DAILY coenzyme Q10 [CoQ-10] 100 mg Capsule 400 mg PO DAILY Centrum Silver 0.4 mg-300 mcg- 250 mcg Tablet 1 tablet PO DAILY <Kelley Restrepo APRN - Last Filed: 07/10/25 19:56> Follow-up/Referrals: Harrison Shields MD [Physician, Plastic Surgery] Clinical Impression: Closed fracture of 5th metacarpal Forbes,MD Karson [Primary Care Provider, Unknown] - 3 Days <Kelley Restrepo APRN - Last Filed: 07/10/25 19:56> Time of Disposition: 17:43 <Kelley Restrepo APRN - Last Filed: 07/10/25 19:56> 17:43 <ELLA Bhardwaj - Last Filed: 07/10/25 17:49>
--- OUTSIDE RECORDS SUMMARY | 2025-07-10 16:16 | XMS_ITS | Encounter Summary ---
Author Organization [employer] Address 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 ACT value for sheath pull at [facility] has been established to be < or = to 140. (See also Nursing Procedures for sheath pull in related nursing areas) Blood specimen (specimen) 01/08/2008 12:58 PM CDT 01/08/2008 12:58 PM CDT us Star Matthew MD POINT OF CARE TESTING Final Re sult [facility] [address] [place] [place] [address] * US GUIDE VASCULAR ACCESS (01/08/2008 10:12 AM CDT) Anatomical Region Laterality Modality Other 01/08/2008 10:1 2 AM CDT Narrative 01/16/2008 11:32 PM CDT [facility] [address] [place], [place] [address] Admit Date: 01/08/2008 MOSHE KINGSTON Sex: F Admit Prov: STAR MATTHEW Date: 1965 Primary Care Prov: CMRN: [id number] Room: [facility] SSN: [id number] IMAGING SERVICES Ordering Prov: STAR MATTHEW Accession Number: [id number] Interpretation The procedure was performed in the Operating Room by Vascular Surgery. Please see the operative report for details. Dictated by: RADIOLOGY, DEPARTMENT O Electronically signed by: RADIOLOGY, DEPARTMENT 01/16/2008 23:32 Transcribed: 01/16/2008 23:25 AMK Procedure Note Provider, Historical - 01/16/[address] [address] Admit Date: 01/08/2008 MOSHE KINGSTON Sex: F Admit Prov: STAR MATTHEW Date: 1965 Primary Care Prov: CMRN: [id number] [id number] [facility] Ordering Prov: STAR MATTHEW Interpretation The procedure was performed in the Operating Room by VascularSurgery. Please see the operative report for details. Dictated by: RADIOLOGY, DEPARTMENT O Electronically signed by: RADIOLOGY, DEPARTMENT 01/16/2008 23:32 Transcribed: 01/16/2008 23:25 AMK us Star Matthew MD US ORDERABLES Final Result * US GUIDE VASCULAR ACCESS (01/08/2008 10:12 AM CDT) Anatomical Region Laterality Modality Other 01/08/2008 10:1 2 AM CDT Narrative 01/16/2008 11:32 PM CDT [address] [address] Admit Date: 01/08/2008 MOSHE KINGSTON Sex: F Admit Prov: STAR MATTHEW Date: 1965 Primary Care Prov: CMRN: [id number] [id number] [facility] Ordering Prov: STAR MATTHEW Accession Number: [id number] Interpretation The procedure was performed in the Operating Room by Vascular Surgery. Please see the operative report for details. Dictated by: RADIOLOGY, DEPARTMENT O Electronically signed by: RADIOLOGY, DEPARTMENT 01/16/2008 23:32 Transcribed: 01/16/2008 23:25 AMK Procedure Note Provider, Historical - 01/16/[address] [address] Admit Date: 01/08/2008 MOSHE KINGSTON Sex: F Admit Prov: STAR MATTHEW Date: 1965 Primary Care Prov: CMRN: [id number] [id number] [facility] Ordering Prov: STAR MATTHEW Interpretation The procedure was performed in the Operating Room by VascularSurgery. Please see the operative report for details. Dictated by: RADIOLOGY, DEPARTMENT O Electronically signed by: RADIOLOGY, DEPARTMENT 01/16/2008 23:32 Transcribed: 01/16/2008 23:25 AMK Star Matthew MD ORDERABLES Final Result * IR STENT PLACEMENT (01/08/2008 10:11 AM CDT) Anatomical Region Laterality Modality Other 01/08/2008 10:1 1 AM CDT Narrative 01/16/2008 11:32 PM CDT [address] [address] Admit Date: 01/08/2008 MOSHE KINGSTON Sex: F Admit Prov: STAR MATTHEW Date: 1965 Primary Care Prov: CMRN: [id number] [facility] [id number] [facility] Ordering Prov: STAR MATTHEW Accession Number: [id number] Interpretation The procedure was performed in the Operating Room by Vascular Surgery. Please see the operative report for details. Dictated by: RADIOLOGY, DEPARTMENT O Electronically signed by: RADIOLOGY, DEPARTMENT 01/16/2008 23:32 Transcribed: 01/16/2008 23:25 AMK Procedure Note Provider, Historical - 01/16/[address] [address] Admit Date: 01/08/2008 MOSHE KINGSTON Sex: F Admit Prov: STAR MATTHEW Date: 1965 Primary Care Prov: CMRN: [id number] [facility] [address] [place] [address] IMAGING SERVICES Ordering Prov: STAR MATTHEW Interpretation The procedure was performed in the Operating Room by VascularSurgery. Please see the operative report for details. Dictated by: RADIOLOGY, DEPARTMENT O Electronically signed by: RADIOLOGY, DEPARTMENT 01/16/2008 23:32 Transcribed: 01/16/2008 23:25 AMK Star Matthew MD IR ORDERABLES Final Result * IR STENT PLACEMENT (01/08/2008 10:11 AM CDT) Anatomical Region Laterality Modality Other 01/08/2008 10:1 1 AM CDT Narrative 01/16/2008 11:32 PM CDT [address] [address] Admit Date: 01/08/2008 MOSHE KINGSTON Sex: F Admit Prov: STAR MATTHEW Date: 1965 Primary Care Prov: CMRN: [id number] [facility] [address] [place] [address] IMAGING SERVICES Ordering Prov: STAR MATTHEW Accession Number: [id number] Interpretation The procedure was performed in the Operating Room by Vascular Surgery. Please see the operative report for details. Dictated by: RADIOLOGY, DEPARTMENT O Electronically signed by: RADIOLOGY, DEPARTMENT 01/16/2008 23:32 Transcribed: 01/16/2008 23:25 AMK Procedure Note Provider, Historical - 01/16/2008 [place] [address] [place], [place] [address] Admit Date: 01/08/2008 MOSHE KINGSTON Sex: F Admit Prov: STAR MATTHEW Date: 1965 Primary Care Prov: CMRN: [id number] [facility] [id number] IM[facility]ING SERVICES Ordering Prov: STAR MATTHEW Interpretation The procedure was performed in the Operating Room by VascularSurgery. Please see the operative report for details. Dictated by: RADIOLOGY, DEPARTMENT O Electronically signed by: RADIOLOGY, DEPARTMENT 01/16/2008 23:32 Transcribed: 01/16/2008 23:25 AMK Star Matthew MD IR ORDERABLES Final Result * IR ARTERIOGRAM ABDOMINAL (01/08/2008 10:11 AM CDT) Anatomical Region Laterality Modality Abdomen Other 01/08/2008 10:1 1 AM CDT Narrative 01/16/2008 11:32 PM CDT [address] [address] Admit Date: 01/08/2008 MOSHE KINGSTON Fela Sex: F Admit Prov: STAR MATTHEW Date: 1965 Primary Care Prov: CMRN: [id number] [facility] [id number] IM[facility]ING SERVICES Ordering Prov: STAR MATTHEW Accession Number: [id number] Interpretation The procedure was performed in the Operating Room by Vascular Surgery. Please see the operative report for details. Dictated by: RADIOLOGY, DEPARTMENT O Electronically signed by: RADIOLOGY, DEPARTMENT 01/16/2008 23:32 Transcribed: 01/16/2008 23:25 AMK Procedure Note Provider, Historical - 01/16/[address] [address] Admit Date: 01/08/2008 MOSHE KINGSTON Fela Sex: F Admit Prov: STAR MATTHEW Date: 1965 Primary Care Prov: CMRN: [id number] [facility] [id number] IM[facility]ING [facility] Ordering Prov: STAR MATTHEW Interpretation The procedure was performed in the Operating Room by VascularSurgery. Please see the operative report for details. Dictated by: RADIOLOGY, DEPARTMENT O Electronically signed by: RADIOLOGY, DEPARTMENT 01/16/2008 23:32 Transcribed: 01/16/2008 23:25 AMK Star Matthew MD IR ORDERABLES Final Result * IR EXTREMITY ARTERIAL (01/08/2008 10:11 AM CDT) Anatomical Region Laterality Modality Other 01/08/2008 10:1 1 AM CDT Narrative 01/16/2008 11:32 PM CDT [address] [address] Admit Date: 01/08/2008 ODILIAMOSHE CHENEY Sex: F Admit Prov: STAR MATTHEW Date: 1965 Primary Care Prov: CMRN: [id number] [facility] [id number] [facility] Ordering Prov: STAR MATTHEW Accession Number: [id number] Interpretation The procedure was performed in the Operating Room by Vascular Surgery. Please see the operative report for details. Dictated by: RADIOLOGY, DEPARTMENT O Electronically signed by: RADIOLOGY, DEPARTMENT 01/16/2008 23:32 Transcribed: 01/16/2008 23:25 AMK Procedure Note Provider, Historical - 01/16/[address] [address] Admit Date: 01/08/2008 MOSHE KINGSTON Fela Sex: F Admit Prov: STAR MATTHEW Date: 1965 Primary Care Prov: CMRN: [id number] Room: [facility] SSN: [id number] IMAGING SERVICES Ordering Prov: STAR MATTHEW Interpretation The procedure was performed in the Operating Room by VascularSurgery. Please see the operative report for details. Dictated by: RADIOLOGY, DEPARTMENT O Electronically signed by: RADIOLOGY, DEPARTMENT 01/16/2008 23:32 Transcribed: 01/16/2008 23:25 AMK Star Matthew MD IR ORDERABLES Final Result * PT AND APTT (01/08/2008 7:08 AM CDT) PROTIME 12.7 12.7 - 15.1 Seconds [facility] INR 0.9 0.9 - 1.1 [facility] Comment: INR Therapeutic Range: Adult: 2.0 - 3.0 for pulmonary embolism or prophylaxis against venous thrombosis or systemic embolization. 2.0 - 3.0 for patients with tissue heart valves. 2.5 - 3.5 for patients with mechanical heart valves or post DE. Pediatric (12 years and under): 1.5 - 3.0 Although the target range in children is not well established, INR values of 1.5 - 3.0 are recommended for most patients. Higher values have been used in children with prosthetic cardiac valves and hereditary clotting disorders. (<3 days) therapeutic ranges have not been established. PTT 27.1 24.4 - 36.4 Seconds [facility] Comment: PTT Therapeutic Range: Heparin Level PTT (seconds) <0.10 units/mL <53 0.10 - 0.30 units/mL 53 - 67 0.30 - 0.70 units/mL* 67 - 95* 0.70 - 1.00 units/mL 95 - 116 *corresponds to therapeutic range for unfractionated heparin Blood specimen (specimen) 01/08/2008 7:08 AM CDT 01/08/2008 7:12 AM CDT us Star Matthew MD HEMATOLOGY ORDERABLES Edited [facility] [address] [facility] [place] [address] * BUN (01/08/2008 7:08 AM CDT) BUN 14 6 - 20 mg/dL [facility] Blood specimen (specimen) 01/08/2008 7:08 AM CDT 01/08/2008 7:12 AM CDT Star Matthew MD CHEMISTRY ORDERABLES Final Res ult Performing Organization Address [facility] Co de Phone Number [facility] [address] [place] [address] * CREATININE (01/08/2008 7:08 AM CDT) CREATININE 0.81 0.51 - 0.95 mg/dL [facility] GFR, >60 >=60 mL/min/1.7 sq meter [facility] GFR >60 >=60 mL/min/1.7 sq meter [facility] Comment: Estimated GFR rate interpretative information for both Americans and non- Americans is available on the [facility] [facility] at: [email or web address] Select: Lab Policies and Procedures Select: Reference Ranges - GFR Blood specimen (specimen) 01/08/2008 7:08 AM CDT 01/08/2008 7:12 AM CDT Star Matthew MD CHEMISTRY ORDERABLES Edited Performing Organization Address [facility] Co de Phone Number [facility] [address] [place] [address] * PLATELET COUNT (01/08/2008 7:08 AM CDT) PLATELETS 215 140 - 350 K/uL [facility] MPV 10.5 9.3 - 12.4 fL [facility] Blood specimen (specimen) 01/08/2008 7:08 AM CDT 01/08/2008 7:12 AM CDT Star Matthew MD HEMATOLOGY ORDERABLES Final Re sult Performing Organization Address [facility]/ZIP Co de Phone Number [facility] [address] [place], [place] [address] documented in this encounter Visit Diagnoses Diagnosis Peripheral vascular disease, unspecified documented in this encounter Care Teams Arc Welder Relationship Specialty Start Date End Date Emerson Allen MD [address] [place] [address] [address] [place] [address] PCP - General Family Practice 04/27/18 documented as of this encounter
--- OUTSIDE RECORDS SUMMARY | 2025-07-10 16:16 | XMS_ITS | Encounter Summary ---
Author Organization [employer] Address [address] [place] [address] Care Team Providers Care Plant Maintenance Technician Name Role Phone Emerson Allen MD Primary Care Provider Encounter Details Date Type Department Care Team (Latest Contact Info) Description 06/21/2007 Outpatient Historical HIS CARDIOPULMONARY Basilio Matthew MD [address] [facility] [address] [place] [address] Unspecified Peripheral Vascular Disease (Primary Dx) Social History Tobacco Use Types Packs/Day Years Used Date Smoking Tobacco: Never Assessed Comments Unknown Sex and Gender Information Value Date Recorded Sex Assigned at Not on file 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
--- OUTSIDE RECORDS SUMMARY | 2025-07-10 16:16 | XMS_ITS ---
Author Organization [employer] Address [address] [place] [address] Care Team Providers Care Cow Tender Name Role Phone Phoenix Loredo MD Unavailable [phone] Aylin Lundy MD Unavailable [phone] Karson Forbes MD Primary Care Provider [phone] Daniel Last MD Unavailable [phone] Ho Phan MD Unavailable [phone] Active Problems Problem Noted Date Diagnosed Date Stage 3a chronic kidney disease 01/06/2025 Assessment & Plan (01/06/2025 2:52 PM CDT): Stable, well controlled with no major changes to EGFR Continue with appropriate management of blood pressure Encounter for screening colonoscopy 07/10/2024 Pneumonia due to infectious organism, unspecified laterality, unspecified part of lung 05/21/2024 Transitional cell carcinoma of renal pelvis, unspecified laterality 05/17/2024 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 Assessment & Plan (01/06/2025 2:50 PM CDT): Stable, generally well controlled, no evidence of continued disease; completed course of chemotherapy with significant side effects, now resolving Follows with oncology for management Repeat surveillance imaging in summer; patient to repeat cystoscopy in surveillance with Urology Assessment & Plan (06/24/2024 4:04 PM CDT): Stable, status post resection; patient to follow up with Oncology for chemotherapy Chronic rhinitis 05/01/2024 Assessment & Plan (05/01/2024 2:55 PM CDT): Continue fluticasone and Claritin daily May try saline nasal rinses Avoid triggers If symptoms worsen may recommend ENT Centrilobular emphysema 05/01/2024 Assessment & Plan (05/05/2025 11:56 AM CDT): PFT revealed air trapping and decreased diffusion capacity in 2020 She is not using any maintenance inhaled therapy. She will continue albuterol 2 puffs every 6 hours as needed only, and we have discussed indications for use She will not use nebulized albuterol If she has changes in her condition she will call and we will reconsider maintenance inhaled therapy Assessment & Plan (01/06/2025 2:51 PM CDT): Stable, well controlled, no significant difficulty with breathing Continue albuterol p.r.n. Assessment & Plan (06/24/2024 4:04 PM CDT): [...] why the send me a message through [employer] or contact her milling machinist, Dr. Hansen, via [employer] for follow-up if needed. Gross hematuria 10/29/2021 Assessment & Plan (10/29/2021 11:06 AM SAND SYSTEM OPERATOR): Recommended referral to urology for further workup of hematuria. Inform patient with a history of smoking that she should be worked up for bladder cancer. Patient disagreed and prefers to have a CT done of her kidneys to rule out kidney stones. Order placed for CT renal. BMI 29.0-29.9,adult 10/29/2021 Assessment & Plan (10/29/2021 11:07 AM SAND SYSTEM OPERATOR): Weight reduction, daily exercise and dietary modifications recommended. Migraine 10/29/2021 Assessment & Plan (06/21/2023 9:54 AM CDT): Clinically improved, continue current prescription medications, Imitrex. Assessment & Plan (10/29/2021 11:06 AM SAND SYSTEM OPERATOR): Asymptomatic. Stable. Continue current prescription medications. PVC (premature ventricular contraction) 10/19/19 22 Dysphagia 06/17/2021 Overview (06/17/2021): Added automatically from request for surgery [id number] Bilateral carotid artery stenosis 04/26/2021 Assessment & Plan (01/06/2025 2:51 PM CDT): Stable, well controlled, asymptomatic; carotid artery stenosis seen on imaging Continue atorvastatin 40 mg daily, Plavix 75 mg daily, continue with regular imaging Tongue lesion 05/22/2019 Assessment & Plan (05/22/2019 [...] 7 Assessment & Plan (10/29/2021 11:04 AM SAND SYSTEM OPERATOR): Patient currently on famotidine, which helps. Patient [...] (01/12/2017): Tobacco dependence syndrome Assessment & Plan (05/05/2025 11:54 AM CDT): - Smoking cessation counseling and techniques reviewed at length - Avoid triggers and use distraction techniques - Information given regarding [place] Tobacco Quit line: 9-740-WXBI-YES for free services - 5 minutes spent discussing cessation She is currently undergoing scans through oncology every 6 months and has had unchanged nodules. She qualifies for annual screening and I anticipate we will resume these once she has been cleared by oncology. Assessment & Plan (06/24/2024 4:03 PM CDT): [...] use distraction techniques - Information given regarding [place] Tobacco Quit line: 7-185-IPSF-YES for free services - 4 minutes spent discussing cessation Assessment & Plan (10/29/2021 11:05 AM SAND SYSTEM OPERATOR): Advised patient to quit smoking. Assessment & Plan (05/22/2019 8:02 AM CDT): Patient was made aware that there was no suspicious lesion within the upper aerodigestive tract suspicious for malignancy. However, patient is tobacco use places her at great risk for developing a life-threatening medical condition. Patient was advised to contact [facility] and seek tobacco cessation program. Atopic rhinitis 02/22/2014 Overview (01/12/2017): Allergic rhinitis Assessment & Plan (06/21/2023 9:55 AM CDT): Stable. Cont. Current prescription medications, flonase. Hyperlipidemia 02/22/2014 Overview (06/24/2024): Hyperlipidemia >>OVERVIEW FOR MULTIPLE-TYPE HYPERLIPIDEMIA WRITTEN ON 01/11/2017 6:20 PM BY INTERFACE, PROBLEM LIST CONVERSION MIXED HYPERLIPIDEMIA Assessment & Plan (01/06/2025 2:52 PM CDT): Not well controlled; lipids above goal for vasculopathy Continue atorvastatin 40 mg daily; encourage low-fat high-fiber diet Assessment & Plan (06/24/2024 4:03 PM CDT): [...] neuralgia 02/19/2013 Overview (01/11/2017): Trigeminal neuralgia Current Treatment and Therapy Plans No current plan information found. Past Treatment and Therapy Plans No past plan information found. Lifetime Dose Tracking * Chemical Lifetime Dose Automatic Entry Manual Entr y Fluoro Time 4.208 minutes 0.008 minutes 4.2 minutes Air kerma at the reference point [...]
--- OUTSIDE RECORDS SUMMARY | 2025-07-10 16:16 | XMS_ITS | Encounter Summary ---
Author Organization [employer] Address 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
--- OUTSIDE RECORDS SUMMARY | 2025-07-10 16:16 | XMS_ITS | Clinical Summary ---
Author Organization [facility] Address [address] [place] [address] Phone Care Team Providers Care Radio Script Writer Name Role Phone Emerson Allen MD Primary Care Provider Allergies Active Allergy Reactions Criticality Noted Date Comments Adhesive Rash Low Codeine Nausea and Vomiting Low 06/07/2016 Iodine Itching High 05/10/2018 Medications atorvastatin (LIPITOR) 40 mg tablet Take 40 mg by mouth daily . 7 Active coenzyme Q10 200 mg Capsule Take 200 mg by mouth daily . 7 Active Lactobacillus acidophilus 10 billion cell Capsule Take 1 capsule by oral route every day 7 Active loratadine (CLARITIN) 10 mg tablet Take 10 mg by mouth 1 time daily as needed . Active omeprazole (PriLOSEC) 40 mg Capsule, Delayed Release(E.C.) Take 40 mg by mouth daily . 3 8 Active SUMAtriptan (IMITREX) 50 mg tablet TAKE 1 TABLET BY MOUTH EARLY POSSIBLE AFTER ONSET OF MIGRAINE. MAY REPEAT AFTER 2 HOURS IF HEADACHE RETURNS. 8 Active albuterol HFA 90 mcg inhaler Take 2 Puffs by inhalation every 6 hours as needed for Shortness of Breath. Active cephALEXin (KEFLEX) 500 mg capsule TK 1 C PO QID X 10 DAYS 0 8 Active oxyCODONE-acetam inophen (PERCOCET) 5-325 mg tablet Take 1 Tablet by mouth every 6 hours as needed for Pain. Max Daily Amount: 4 Tablets 20 Tablet 8 Active clopidogrel (PLAVIX) 75 mg Tablet TK 1 T PO ONCE A DAY 2 8 Active Active Problems Patient Care Coordination No te Formatting of this note migh t be different from the original. Primary Care: Emerson Allen MD Referring Provider: No referring provider defined for this encounter. Other: Problem Noted Date Diagnosed Date Chewing tobacco dependence 06/08/2018 S/P bilateral mastectomy 05/16/2018 Lobular carcinoma in situ (LCIS) of right breast 12/26/2017 Overview (04/27/2018): [place] [facility] Family History Medical History Relation Name Comments Lung Cancer Father Throat Cancer Father Breast Cancer Paternal Grandmother greatzee Relation Name Status Comments Father Paternal Grandmother ross Social History Tobacco Use Types Packs/Day Years Used Date Smoking Tobacco: Every Day Cigarettes 0.5 35 Smokeless Tobacco: Never Alcohol Use Standard Drinks/Week Comments Yes 0 (1 standard drink = 0.6 oz pur e alcohol) rarely Comments No Sex and Gender Information Value Date Recorded Sex Assigned at Not on file Legal Sex 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 Gender Identity Not on file Sexual Orientation Not on file Last Filed Vital Signs Vital Sign Reading Time Taken Comments Blood Pressure 130/74 04/01/2019 11:37 AM CDT Pulse 89 11/23/2018 10:46 AM BUSINESS LOAN PROCESSOR Temperature 36.3 C (97.3 F) 06/08/2018 8:54 AM CDT Respiratory Rate 18 06/08/2018 10:3 0 AM CDT Oxygen Saturation 96% 06/08/2018 10: 30 AM CDT Inhaled Oxygen Concentration - - Weight 71.1 kg (156 lb 12.8 oz) 019 11:37 AM CDT Height 154.9 cm (5' 1) 04/01/2019 11:3 7 AM CDT Body Mass Index 29.63 04/01/2019 11:37 AM CDT Plan of Treatment Health Maintenance Due Date Last Done Comments DTAP/TDAP/TD VACCINES (1 - Tdap) 1983 HPV/Cotest (21-29) 1985 CERVICAL CANCER SCREENING 1994 HPV/Cotest (30-65) 1994 PAP SMEAR 1994 COLORECTAL SCREENING 2009 Colorectal Cancer Screening 2009 FIT-DNA Q 3 years 2009 FIT/FOBT Q 1 year 2009 Flex Sig/CT Colonography Q 5 years 2009 ZOSTER VACCINE (1 of 2) 2014 RSV VACCINE (60+ or ) (1 - Risk 60-74 years 1-dose series) 2024 INFLUENZA VACCINE (#1) 2025 8, 07/09/2015, 08/21/2014 Medical Devices Implanted Type Area Chemist Biological Device Identifier Shelf Expiration Date Model / Serial / Lot Hemostatic Surgicel 2x14in 1951 - [id number] Implanted:Qty : 1 on 05/16/2018 by Jennifer Waters MD at [facility] Hemostatic Left: Breast [employer] [id number] 07/08/20221950 [id number] Hemostatic Surgicel 4x8in 1952 - [id number] Implanted:Qty : 1 on 05/16/2018 by Jennifer Waters MD at [facility] Hemostatic Right: Breast [employer] [id number] 12/06/20221951 [id number] Hemostatic Surgicel 4x8in 1952 - [id number] Implanted:Qty : 1 on 05/16/2018 by Jennifer Waters MD at [facility] Hemostatic Right: Breast [employer] [id number] 12/06/20221951 [id number] Hemostatic Surgicel 4x8in 1952 - [id number] Implanted:Qty : 1 on 05/16/2018 by Jennifer Waters MD at [facility] Hemostatic Right: Breast [employer] [id number] 12/06/20221951 [id number] Hemostatic Surgicel 4x8in 1952 - [id number] Implanted:Qty : 1 on 05/16/2018 by Jennifer Waters MD at [facility] Hemostatic Right: Breast [employer] [id number] 12/06/20221951 [id number] Hemostatic Surgicel 4x8in 1952 [id number] Implanted:Qty : 1 on 05/16/2018 by Jennifer Waters MD at [facility] Hemostatic Left: Breast [employer] [id number] 12/06/20221951 [id number] Hemostatic Surgicel 4x8in 1952 - [id number] Implanted:Qty : 1 on 05/16/2018 by Jennifer Waters MD at [facility] Hemostatic Left: Breast [employer] [id number] 12/06/20221951 [id number] Hemostatic Surgicel 4x8in 1952 - [id number] Implanted:Qty : 1 on 05/16/2018 by Jennifer Waters MD at [facility] Hemostatic Left: Breast [employer] [id number] 12/06/20221951 [id number] Hemostatic Surgicel 2x14in 1951 - [id number] Implanted:Qty : 1 on 06/08/2018 by Jennifer Waters MD at [facility] Hemostatic Right: Breast [employer] 07/08/20221950 [id number] Stent Abdominal Area Surgicel Powder Implanted:Qty : 1 on 06/08/2018 by Jennifer Waters MD at [facility] Bilateral : Breast 10/08/2019 / / [id number] Insurance BLUE ACCESS/TRUE BLUE PPO Advance Directives For more information, please contact: [phone] * Full Code (Latest Code Status on File) Date Activated Date Inactivated Comments 06/08/2018 7:03 AM 06/08/2018 1:07 PM * Full Code Date Activated Date Inactivated Comments 06/08/2018 6:35 AM 06/08/2018 7:03 AM * Full Code Date Activated Date Inactivated Comments 05/16/2018 4:06 PM 05/17/2018 1:02 PM * Full Code Date Activated Date Inactivated Comments 05/16/2018 1:58 PM 05/16/2018 4:05 PM Care Teams Radio Script Writer Relationship Specialty Start Date End Date Emerson Allen MD [address] [place] [phone] PCP - General Family Practice 04/27/18
--- OUTSIDE RECORDS SUMMARY | 2025-07-10 16:17 | XMS_ITS | Encounter Summary ---
Author Organization [facility] Address [address] [place] [address] Care Team Providers Care Room Service Food Service Attendant Name Role Phone Emerson Allen MD Primary Care Provider Encounter Details Date Type Department Care Team (Late st Contact Info) Description 02/09/2006 Outpatient Historical [facility] Blood Flow [address] [place] [address] Jacob Ramos MD [address] 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
--- OUTSIDE RECORDS SUMMARY | 2025-07-10 16:17 | XMS_ITS | Encounter Summary ---
Author Organization [facility] Address 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
--- OUTSIDE RECORDS SUMMARY | 2025-07-10 16:17 | XMS_ITS | Encounter Summary ---
Author Organization [facility] Address [address] [place] [address] Care Team Providers Care University Teacher Name Role Phone Emerson Allen MD Primary Care Provider Encounter Details Date Type Department Care Team (Late st Contact Info) Description 08/09/2005 Outpatient Historical [facility] Supp Svcs Blood Flow [address] [place] [address] Basilio Matthew MD [address] [facility] [address] [place] [address] Social History Tobacco Use Types Packs/Day Years Used Date Smoking Tobacco: Never Assessed Comments Unknown Sex and Gender Information Value Date Recorded Sex Assigned at Not on file Legal Sex Female 2:53 AM 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
--- OUTSIDE RECORDS SUMMARY | 2025-07-10 16:17 | XMS_ITS | Encounter Summary ---
Author Organization [facility] Address [address] [place] [address] Care Team Providers Care Agricultural Extension Specialist Name Role Phone Emerson Allen MD Primary Care Provider Encounter Details Date Type Department Care Team (Late st Contact Info) Description 08/09/2005 Outpatient Historical [facility] Supp Svcs Blood Flow [address] [place] [address] Basilio Matthew MD [address] [facility] [address] [place] [address] Social History Tobacco Use Types Packs/Day Years Used Date Smoking Tobacco: Never Assessed Comments Unknown Sex and Gender Information Value Date Recorded Sex Assigned at Not on file Legal Sex Female 2:53 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
--- OUTSIDE RECORDS SUMMARY | 2025-07-10 16:17 | XMS_ITS | Encounter Summary ---
Author Organization [employer] Address [address] [facility] [place] [address] Care Team Providers Care Hat Maker Name Role Phone Emerson Allen MD Primary Care Provider Encounter Details Date Type Department Care Team (Latest Contact Info) Description 08/31/2005 Outpatient Historical [facility] CARD KITCHEN HELP HANDYMAN Basilio Matthew MD [address] [facility] [address] [place] [address] ATHEROSCLER ART KWIN[place]AGAK EXTREM UNSP ([facility]) (Primary Dx) Social History Tobacco Use Types Packs/Day Years Used Date Smoking Tobacco: Never Assessed Comments Unknown Sex and Gender Information Value Date Recorded Sex Assigned at Not on file Legal Sex Female 2:53 AM DYE REEL OPERATOR Gender Identity Not on file Sexual Orientation Not on file documented as of this encounter Plan of Treatment Not on file documented as of this encounter Procedures Procedure Name Priority Date/Time Associated Diagnosis Comments POC ACTIVATED CLOTTING TIME Routine 08/31/2005 10:52 AM DYE REEL OPERATOR PT AND APTT Routine 08/31/2005 6:00 AM DYE REEL OPERATOR PLATELET COUNT Routine 08/31/2005 6:00 AM DYE REEL OPERATOR BUN Routine 08/31/2005 6:00 AM DYE REEL OPERATOR CREATININE Routine 08/31/2005 6:00 AM DYE REEL OPERATOR documented in this encounter Results * POC ACTIVATED CLOTTING TIME (08/31/2005 10:52 AM DYE REEL OPERATOR) ACT POC 139 Seconds INTERFACE SYSTEM Comment: Normal Donors range 113-149 Non-heparin patients 89-169 ACT value for sheath pull at [facility] has been established to be < or = to 1 70. (See also Nursing Procedures for sheath pull in related nursing areas) 08/31/2005 10:5 2 AM DYE REEL OPERATOR us Basilio Matthew MD POINT OF CARE TESTING Final Re sult Performing Organization Address [facility] Phone Number INTERFACE SYSTEM Refer to clinic/hospital department * BUN (08/31/2005 6:00 AM DYE REEL OPERATOR) BUN 13 6 - 20 mg/dL INTERFACE SYSTEM 08/31/2005 6:00 AM DYE REEL OPERATOR us Bsailio Matthew MD CHEMISTRY ORDERABLES Final Res ult Performing Organization Address [facility] [place] INTERFACE SYSTEM Refer to clinic/hospital department * CREATININE (08/31/2005 6:00 AM DYE REEL OPERATOR) CREATININE 0.9 0.4 - 1.2 mg/dL INTERFACE SYSTEM 08/31/2005 6:00 AM DYE REEL OPERATOR us Basilio Matthew MD CHEMISTRY ORDERABLES Final Res ult Performing Organization Address [facility] Phone Number INTERFACE SYSTEM Refer to clinic/hospital department * PLATELET COUNT (08/31/2005 6:00 AM DYE REEL OPERATOR) PLATELETS 206 140 - 350 K/uL INTERFACE SYSTEM MPV 9.9 9.3 - 12.4 fL INTERFACE SYSTEM 08/31/2005 6:00 AM DYE REEL OPERATOR us Basilio Matthew MD HEMATOLOGY ORDERABLES Final Re sult Performing Organization Address [facility] Phone Number INTERFACE SYSTEM Refer to clinic/hospital department * PT AND APTT (08/31/2005 6:00 AM DYE REEL OPERATOR) PROTIME 13.6 12.7 - 15.1 Seconds [...] patients with mechanical heart valves or post ID. Pediatric (12 years and under): 1.5 - [...] SYSTEM Comment: PTT Therapeutic Range: Heparin Level PTT (seconds) <0.10 units/mL <53 0.10 - 0.30 units/mL 53 - 67 0.30 - 0.70 units/mL* 67 - 95* 0.70 - 1.00 units/mL 95 - 116 *corresponds to therapeutic range for unfractionated heparin Note changes in PTT reference and therapeutic ranges effective 08/16/2005 . Refer to updated heparin nomogram. 08/31/2005 6:00 AM DYE REEL OPERATOR Basilio Matthew MD HEMATOLOGY ORDERABLES Final Re sult INTERFACE SYSTEM Refer to clinic/hospital department documented in this encounter Visit Diagnoses Diagnosis Atherosclerosis of [place] arteries of the extremities, unspecified- Primary documented in this encounter Care Teams Hat Maker Relationship Specialty Start Date End Date Emerson Allen MD [address] [place] [phone] PCP - General Family Practice 04/27/18 documented as of this encounter
--- OUTSIDE RECORDS SUMMARY | 2025-07-10 16:17 | XMS_ITS | Encounter Summary ---
Author Organization [employer] Address [address] [place] [address] Care Team Providers Care Clinical Material Handler Name Role Phone Emerson Allen MD Primary Care Provider Encounter Details Date Type Department Care Team (Latest Contact Info) Description 09/21/2005 Outpatient Historical [facility] CARDI[facility]UL[facility] Basilio Matthew MD [address] [facility] [address] [place] [address] PERIPH VASCULAR DIS NOS (Primary Dx) Social History Tobacco Use Types Packs/Day Years Used Date Smoking Tobacco: Never Assessed Comments Unknown Sex and Gender Information Value Date Recorded Sex Assigned at Not on file Legal Sex Female 2:53 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
--- OUTSIDE RECORDS SUMMARY | 2025-07-10 16:17 | XMS_ITS | Clinical Summary ---
Author Organization [facility] Address [address] [facility], [place] [address] Phone Care Team Providers Care Registered Art Therapist Name Role Phone Levi Carpenter Mirlande DPM Unavailable [phone] Karson Forbes MD Primary Care Provider [phone] Los Perry MD Unavailable Los Perry MD Unavailable Allergies Active Allergy [...] days prior to surgery on 07/02/2024 Active Multiple Vitamin (MULTIVITAMIN PO) Take by mouth. Instructed to hold for 3 days prior to surgery on 07/02/2024 Active metoprolol tartrate (LOPRESSOR) 50 MG Tablet Take 50 mg by mouth every morning. Active Coenzyme Q10 400 MG Capsule Take by mouth daily. Active Probiotic Product (PROBIOTIC DAILY PO) Take by mouth. Activ e Active Problems Problem Noted Date Diagnosed Date Fatigue due to treatment 11/28/2024 Chemotherapy-induced thrombocytopenia 09/11/2024 Anemia associated with chemotherapy 08/28/2024 Cognitive impairment 07/09/2024 Urothelial cancer 06/18/2024 Stage 3 chronic kidney disease 06/18/2024 Conductive hearing loss, bilateral 06/18/2024 Neuritis of left foot 06/02/2017 Swelling of [...] Problem Noted Date Diagnosed Date Resolved Date Urinary tract infection without hematuria 08/13/2024 01/02/2025 Left leg pain 07/10/2017 01/02/2025 Left leg swelling 06/02/2017 01/02/2025 Tailor's bunion of right foot 06/07/2016 02/17/2017 Encounters Date Type Department Care Team Description 07/02/2025 8:30 AM CDT [facility] [address] [place] [address] Cruzito Orr MD Urothelial cancer (HCC) (Primary Dx) Discharge Disposition: Discharged to home or Selfcare 07/02/2025 Travel 06/02/2025 10:00 AM CDT Procedure Visit [facility] - General Surgery [facility] [address] [address] Cruzito Orr MD Sanz, Alejandro Dameon, MD Encounter for removal of tunneled central venous catheter (CVC) with port (Primary Dx) Discharge Disposition: Discharged to home or Selfcare 06/02/2025 Travel from Last 3 Months Family History Medical History Relation Name Comments Cancer Father esophageal Hypertension Father Diabetes Mother Relation Name Status Comments Father Mother Alive Social History Tobacco Use Types Packs/Day Years Used Date Smoking Tobacco: Every Day Cigarettes 1 45.1 Started: 06/18/1980 Smokeless Tobacco: Never Alcohol Use [...] Sign Reading Time Taken Comments Blood Pressure 124/76 06/02/2025 9:45 AM CDT Pulse 62 06/02/2025 9:45 AM CDT Temperature 36.1 C (97 F) 06/02/2025 9:45 AM CDT Respiratory Rate 18 04/07/2025 8:41 AM CDT Oxygen Saturation 98% 06/02/2025 9:45 AM CDT Inhaled Oxygen Concentration - - Weight 64 kg (141 lb) 06/02/2025 9:45 AM CDT Height 154.9 cm (5' 1) 06/02/2025 9:45 AM CDT Body Mass Index 26.64 06/02/2025 9:45 AM CDT Plan of Treatment Upcoming Encounters Date Type Department Care Team (Late st Contact Info) Description 10/06/2025 8:20 AM MONTESSORI PRESCHOOL TEACHER [facility] [address] [place] [address] Discharge Disposition: Discharged to home or Selfcare 10/07/2025 8:20 AM MONTESSORI PRESCHOOL TEACHER Office Visit [facility] Oncology Services [address] [place] [address] Cruzito Orr MD [address] [place] [address] Discharge Disposition: Discharged to home or Selfcare Health Maintenance Due Date Last Done Comments Hepatitis C Virus (HCV) Screening 1964 TdaP Immunization 1964 Zoster Immunization (1 of 2) 1983 Pap Smear 1985 Cervical Cancer Screening (CCS) 1994 HPV/Cotest 1994 Cologuard 2009 Immunochemical Fecal Occult Blood 2009 Respiratory Syncytial Virus (RSV) Immunization (Adult) (1 - Risk 60-74 years 1-dose series) 2024 Lung Cancer Screening 05/21/2025 05/21/2024 Influenza Immunization (#1) 06/09/202506/09, 07/20/2021, 07/03/2020, Additional history exists SARS-COV-2 Immunization (2024- season) 2025 07/09/2022, 10/31/2021, 02/16/2021, Additional history exists Colonoscopy 04/08/2035 04/08/2025 Colorectal Cancer Screening 04/08/2035 Mammogram Discontinued 12/26/2017 Pneumococcal Immunization (50+ years) Completed 06/20/2022, 12/17/2009 Pneumococcal Immunization Combined Discontinued 06/20/2022, 12/17/2009 Hepatitis B Immunization Aged Out No longer eligible based on patient's age to complete this topic Human Papillomavirus (HPV) Immunization Aged Out No longer eligible based on patient's age to complete this topic Meningococcal Immunization (ACWY) Aged Out No longer eligible based on patient's age to complete this topic Rotavirus Immunization Aged Out No lo nger eligible based on patient's age to complete this topic Medical Devices Implanted Type Area Administrative Director Device Identifier Shelf Expiration Date Model / Serial / Lot Stent Biliary Transhepatic Self-Expandin - [id number] Implanted:Qty: 1 on 07/15/2016 by Phoenix Loredo MD at [facility] IMPLANT Right: Leg OLYA / CORD 06/08/2017 [id number] / / [id number] Stent Biliary Transhepatic Self-Expandin - [id number] Implanted:Qty: 1 on 07/15/2016 by Phoenix Loredo MD at [facility] IMPLANT Right: Leg JNJ / CORD 03/08/2018 [id number] / / [id number] Angioseal Vip 6fr - [id number] Implanted:Qty: 1 on 07/15/2016 by [facility] IMPLANT Left: Groin ST AIDEE / ATRIAL FIB 04/07/2017 [id number] / / [id number] Angioseal Vip 6fr - [id number] Implanted:Qty: 1 on 09/09/2016 by Phoenix [facility] IMPLANT Right: Groin ST AIDEE / ATRIAL FIB 05/08/2017 [id number] / / [id number] Angioseal Vip 6fr - [id number] Implanted:Qty: 1 on 09/09/2016 by Phoenix Loredo MD at [facility] IMPLANT Left: Groin ST AIDEE / ATRIAL FIB 05/08/2017 [id number] / / [id number] Ez Clip 8 Mm - [id number] Implanted:Qty: 1 on 11/25/2016 by Levi Carpenter DPM at [facility] IMPLANT Right: Foot PREMA / ORTHOPAEDICS 08/08/2021 [id number] / / [id number] Easyclip Staple [id number] - [id number] Implanted:Qty: 1 on 02/17/2017 by Levi Carpenter DPM at [facility] IMPLANT Left: Foot PREMA / ORTHOPAEDICS 10/08/2021 [id number] 10 / / [id number] Port Infusion 8fr 63cm Pwr Inj Plastic Single Filled Smart Port Detached Poly Cath Valved Mri-3t - [id number] Implanted:Qty: 1 on 07/02/2024 by Los Perry MD at [facility] IMPLANT Right: Chest [employer] 02/05/2027 [id number] / [id number] / [id number] Cast Covered Stent [id number] Implanted:Qty: 1 on 09/09/2016 by Phoenix Loredo MD at [facility] N/A: Skysheet 09/23/2019 / [id number] / NA Cast Covered Stent Implanted:Qty: 1 on 09/09/2016 by Phoenix Loredo MD at [facility] N/A: Skysheet 07/14/2018 / / [id number] Explanted Type Area Administrative Director Device Identifier Shelf Expiration Date Model / Serial / Lot Instratek Stapix Implanted:Qty: 1 Explanted:Qty: 1 on 02/17/2017 by Levi Carpenter DPM at [facility] Left: Foot PREMA 07/28/2018 [id number] / / [id number] Procedures Procedure Name Priority Date/Time Associated Diagnosis Comments CBC WITH AUTO DIFFERENTIAL STAT 07/02/2025 8:46 AM CDT Urothelial cancer (HCC) COMPLETE BLOOD COUNT (CBC) WITH DIFF STAT 07/02/2025 8:46 AM CDT Urothelial cancer (HCC) CMP (COMPREHENSIVE METABOLIC PANEL) STAT 07/02/2025 8:46 AM CDT Urothelial cancer (HCC) PATHOLOGY SURGICAL Routine 06/02/2025 10 :45 AM CDT Encounter for removal of tunneled central venous catheter (CVC) with port from Last 3 Months Results * (ABNORMAL) CBC WITH AUTO DIFFERENTIAL (07/02/2025 8:46 AM CDT) WBC 7.81 4.00 - 12.00 10(3)/mcL 07/02/2025 9:11 AM CDT [facility] RBC 4.30 3.80 - 5.30 10(6)/mcL 07/02/2025 9:11 AM CDT [facility] HEMOGLOBIN (HGB) 14.3 12.0 - 15.8 g/dL 07/02/2025 9:11 AM CDT [facility] HEMATOCRIT (HCT) 42.1 36.0 - 47.0 % 07/02/2025 9:11 AM CDT [facility] MCV 97.9(H) 82.0 - 96.0 fL 07/02/2025 9:11 AM CDT [facility] MCH 33.3 26.0 - 34.0 pg 07/02/2025 9:11 AM CDT [facility] MCHC 34.0 31.0 - 36.0 g/dL 07/02/2025 9:11 AM CDT [facility] PLATELET COUNT 170 140 - 440 10(3)/mcL 07/02/2025 9:11 AM CDT [facility] RDW 13.4 11.8 - 15.5 % 07/02/2025 9:11 AM CDT [facility] MPV 9.7 9.7 - 12.4 fL 07/02/2025 9:11 AM CDT [facility] NEUTROPHILS 64.2 47.0 - 73.0 % 07/02/2025 9:11 AM CDT [facility] LYMPHOCYTES 25.6 18.0 - 42.0 % 07/02/2025 9:11 AM CDT [facility] MONOCYTES 8.5 4.0 - 12.0 % 07/02/2025 9:11 AM CDT [facility] EOSINOPHILS 0.8 0.0 - 5.0 % 07/02/2025 9:11 AM CDT [facility] BASOPHILS 0.3 0.0 - 1.0 % 07/02/2025 9:11 AM CDT [facility] IMMATURE GRANULOCYTE 0.6(H) 0.0 - 0.4 % 07/02/2025 9:11 AM CDT [facility] Comment:Immature Granulocyte s includes Metamyelocytes, Myelocytes, and Promyelocytes. ABSOLUTE NEUTROPHILS 5.02 1.60 - 7.70 10(3)/mcL 07/02/2025 9:11 AM CDT [facility] ABSOLUTE LYMPHOCYTES 2.00 1.30 - 3.20 10(3)/mcL 07/02/2025 9:11 AM CDT [facility] ABSOLUTE MONOCYTES 0.66 0.20 - 1.00 10(3)/[facility] 07/02/2025 9:11 AM CDT [facility] ABSOLUTE EOSINOPHIL 0.06 0.00 - 0.40 10(3)/mcL 07/02/2025 9:11 AM CDT [facility] ABSOLUTE BASOPHILS 0.02 0.00 - 0.10 10(3)/mcL 07/02/2025 9:11 AM CDT [facility] ABSOLUTE IMMATURE GRANULOCYTE 0.05(H) 0.00 - 0.03 10 (3) mcL. 07/02/2025 9:11 AM CDT [facility] NRBC PER 100 WBC 0 07/02/20 9:11 AM CDT [facility] Blood Venipuncture / Unknown 07/02/2025 8:46 AM CDT 07/02/2025 8:46 AM CDT us Cruzito Orr MD HEMATOLOGY ORDERABLES nal Result [facility] [address] [place] [address] * (ABNORMAL) CMP (COMPREHENSIVE METABOLIC PANEL) (07/02/2025 8:46 AM CDT) SODIUM 140 136 - 145 mmol/L 07/02/2025 9:31 AM CDT [facility] POTASSIUM 4.4 3.5 - 5.1 mmol/L 07/02/2025 9:31 AM CDT [facility] CHLORIDE 105 98 - 107 mmol/L 07/02/2025 9:31 AM CDT [facility] CO2, VENOUS 23 22 - 30 mmol/L 07/02/2025 9:31 AM CDT [facility] ANION GAP 16.4 <18.0 mmol/L 07/02/2025 9:31 AM CDT [facility] GLUCOSE 91 70 - 99 mg/dL 07/02/2025 9:31 AM CDT [facility] BUN 10 10 - 20 mg/dL 07/02/2025 9:31 AM [facility] CREATININE, BLOOD 1.24(H) 0.60 - 1.00 mg/dL 07/02/2025 9:31 AM [facility] BUN/CREATININE RATIO 8(L) 12 - 20 ratio 07/02/2025 9:31 AM [facility] TOTAL PROTEIN 6.4 6.0 - 8.0 g/dL 07/02/2025 9:31 AM [facility] ALBUMIN 4.3 3.5 - 5.0 g/dL 07/02/2025 9:31 AM [facility] A/G RATIO 2.0 1.0 - 2.2 07/02/2025 9:31 AM [facility] CALCIUM 8.7 8.7 - 10.5 mg/dL 07/02/2025 9:31 AM [facility] T BILI 0.4 0.2 - 1.2 mg/dL 07/02/2025 9:31 AM [facility] SGOT (AST) 20 <43 U/L 07/02/2025 9:31 AM [facility] SGPT (ALT) 24 <56 U/L 07/02/2025 9:31 AM [facility] ALKALINE PHOSPHATASE 88 40 - 150 U/L 07/02/2025 9:31 AM [facility] IS THE PATIENT REQUIRED TO BE FASTING? No 07/02/2025 9:31 AM [facility] GFR, ESTIMATED 50(L) >=60 07/02/2025 9:31 AM [facility] Comment: Creatinine Clearance is the preferred criteria for selecting drug dose adjustments in renally impaired patients. The GFR is provided as additional pertinent clinical information. GFR is reported in mL/min/1.73 sq m. Calculation based on the 2020 Chronic Kidney Disease Epidemiology Collaboration (CKD-EPI) equation refit without adjustment for race. GFR, EST. 53(L) >=60 09/24/2 025 9:31 AM CDT [facility] Comment: Creatinine Clearance is the preferred criteria for selecting drug dose adjustments in renally impaired patients. The GFR is provided as additional pertinent clinical information. GFR is reported in mL/min/1.73 sq m. Calculation based on the 2009 Chronic Kidney Disease Epidemiology Collaboration (CKD-EPI). GFR, EST. NONAFRICAN 44(L) >=60 07/02/2025 9:31 AM CDT [facility] Comment: Creatinine Clearance is the preferred criteria for selecting drug dose adjustments in renally impaired patients. The GFR is provided as additional pertinent clinical information. GFR is reported in mL/min/1.73 sq m. Calculation based on the 2009 Chronic Kidney Disease Epidemiology Collaboration (CKD-EPI). Blood Venipuncture / Unknown 07/02/2025 8:46 AM CDT 07/02/2025 8:46 AM CDT Cruzito Orr MD CHEMISTRY ORDERABLES [facility] al Result [facility] [address] [place] [address] * PATHOLOGY SURGICAL (06/02/2025 10:45 AM CDT) Case Report Surgical Pathology Report Case: [id number] Authorizing Provider: Los Perry, Collected: 06/02/2025 10:45 AM Ordering Location: [facility] - Received: 06/02/2025 10:45 AM General Surgery [facility] Pathologist: Mamie Carlton MD PhD Specimen: Port 06/04/2025 2:56 PM CDT [facility] FINAL DIAGNOSIS Foreign body, Port, right subclavian, excision: - As described grossly. 06/04/2025 2:56 PM CDT [facility] at 1456 CDT Clinical Information Gross examination of Port 06/04/2025 2:56 PM CDT [facility] Pre-Operative Diagnosis History of port insertion, urothelial carcinoma 06/04/2025 2:56 PM CDT [facility] Gross Description A. Received in formalin labeled with the patient identifiers and port is a whitten-white medical policy specialist measuring 2.0 x 2.0 x 1.5 cm with an attached tube-like structure measuring 18.0 cm in length with a maximum diameter of 0.2 cm. There is no soft tissue present within the specimen or specimen container. The specimen is submitted for gross diagnosis only. No sections are taken. 06/04/2025 2:56 PM CDT [facility] Other (Port) Non-Phlebotomy Collection / Unknown 06/02/2025 10:45 AM CDT 06/02/2025 10:45 AM CDT Los Perry MD PATHOLOGY/CYTOLOGY OR DERABLES Final Result [facility] [address] [place] [address] from Last 3 Months Insurance [facility] Care Teams Registered Art Therapist Relationship Specialty Start Date End [place] [address] PCP - General Family Medicine 06/18/24 Levi Carpenter DPM Podiatry 06/07/16 Los Perry MD [address] [phone] Consulting Physician General Surgery 06/20/24 Los Perry MD [address] [address] Consulting Physician General Surgery 05/26/25
--- OUTSIDE RECORDS SUMMARY | 2025-07-10 16:17 | XMS_ITS | Encounter Summary ---
Author Organization [facility] Address 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
--- OUTSIDE RECORDS SUMMARY | 2025-07-10 16:17 | XMS_ITS | Encounter Summary ---
Author Organization [facility] Address [address] [place] [address] Care Team Providers Care Hand Shaper Name Role Phone Emerson Allen MD Primary Care Provider Encounter Details Date Type Department Care Team (Late st Contact Info) Description 06/21/2007 Outpatient Historical [facility] Svcs Blood Flow [address] [place] [id number] Adrian Cristobal MD NO ADDRESS ON FILE Social History Tobacco Use Types Packs/Day Years Used Date Smoking Tobacco: Never Assessed Comments Unknown Sex and Gender Information Value Date Recorded Sex Assigned at Not on file Legal Sex Female 2:53 AM WEIGH TANK OPERATOR Gender Identity Not on file Sexual Orientation Not on file documented as of this encounter Plan of Treatment Not on file documented as of this encounter Visit Diagnoses Not on filedocumented in this encounter Care Teams Hand Shaper Relationship Specialty Start Date End Date Emerson Allen MD [address] [place] [phone] PCP - General Family Practice 04/27/18 documented as of this encounter
--- OUTSIDE RECORDS SUMMARY | 2025-07-10 16:17 | XMS_ITS | Encounter Summary ---
Author Organization [facility] Address [address] [place] [address] Care Team Providers Care Edge Cutter Name Role Phone Emerson Allen MD Primary Care Provider Encounter Details Date Type Department Care Team (Latest Contact Info) Description 08/09/2005 Outpatient Historical [facility] Basilio Matthew MD [address] [facility] [address] [place] [address] PERIPH VASCULAR DIS NOS (Primary Dx) Social History Tobacco Use Types Packs/Day Years Used Date Smoking Tobacco: Never Assessed Comments Unknown Sex and Gender Information Value Date Recorded Sex Assigned at Not on file Legal Sex Female 2:53 AM APPAREL DESIGNER Gender Identity Not on file Sexual Orientation Not on file documented as of this encounter Plan of Treatment Not on file documented as of this encounter Visit Diagnoses Diagnosis Peripheral vascular disease, unspecified- Primary documented in this encounter Care Teams Edge Cutter Relationship Specialty Start Date End Date Emerson Allen MD [address] [place] [phone] PCP - General Family Practice 04/27/18 documented as of this encounter
--- OUTSIDE RECORDS SUMMARY | 2025-07-10 16:17 | XMS_ITS | Clinical Summary ---
Author Organization [facility] Address [address] [place] [address] Care Team Providers Care Supervisor Film Processing Name Role Phone Phoenix Loredo MD Unavailable [phone] Aylin Lundy MD Unavailable [phone] Karson Forbes MD Primary Care Provider [phone] Daniel Last MD Unavailable [phone] Ho Phan MD Unavailable [phone] Allergies Active Allergy Reactions Criticality Noted Date Comments Adhesive Itching,Rash,Blisters High Adhesive Tape-Silicones Itching,Rash,Blisters High 0 06/07/2016 Codeine Nausea only Low 06/07/2016 Aprepitant Anaphylaxis High 11/30/2024 Nitrofurantoin Monohyd/M-Cryst Rash Medium 10/05 Other Itching,Rash,Blisters High 05/14/2024 Metals Povidone-Iodine Itching Low 02/17/2017 Medications SUMAtriptan (IMITREX) 50 mg tabletIndications: Other migraine without status migrainosus, not intractable May repeat dose once in 2 hours if no relief. Do not exceed 2 doses in 24 hours. 9 tablet 3 3 Active albuterol HFA (PROVENTIL HFA,VENTOLIN HFA,PROAIR HFA) 90 mcg/actuation inhalerIndications :Centrilobular emphysema Inhale 2 puffs every 6 (six) hours as needed for wheezing or shortness of breath 1 each 4 Active coenzyme Q10 200 mg capsule Take 1 capsule (200 mg total) by mouth every morning Active fluticasone propionate (FLONASE) 50 mcg/actuation nasal spray Administer 1 spray into each nostril as needed for rhinitis Active multivitamin tablet Take 1 tablet by mouth every morning Active Bacillus coagulans (PROBIOTIC, B. COAGULANS, ORAL) Take by mouth every morning Active clopidogreL (PLAVIX) 75 mg tablet TAKE 1 TABLET(75 MG) BY MOUTH DAILY 90 tablet 3 4 Active metoprolol XL (TOPROL-XL) 50 mg extended release tablet TAKE 1 TABLET(50 MG) BY MOUTH DAILY 90 tablet 3 5 Active atorvastatin (LIPITOR) 40 mg tabletIndications: Mixed hyperlipidemia Take 1 tablet (40 mg total) by mouth daily 90 tablet 3 5 Active Active Problems Problem Noted Date Diagnosed [...] why the send me a message through [employer] or contact her associate publisher, Dr. Hansen, via [employer] for follow-up if needed. Gross hematuria 10/29/2021 Assessment & Plan (10/29/2021 11:06 AM GUNNER'S MATE): Recommended referral to urology for further workup of hematuria. Inform patient with a history of smoking that she should be worked up for bladder cancer. Patient disagreed and prefers to have a CT done of her kidneys to rule out kidney stones. Order placed for CT renal. BMI 29.0-29.9,adult 10/29/2021 Assessment & Plan (10/29/2021 11:07 AM GUNNER'S MATE): Weight reduction, daily exercise and dietary modifications recommended. Migraine 10/29/2021 Assessment & Plan (06/21/2023 9:54 AM CDT): Clinically improved, continue current prescription medications, Imitrex. Assessment & Plan (10/29/2021 11:06 AM GUNNER'S MATE): Asymptomatic. Stable. Continue current prescription medications. PVC (premature ventricular contraction) 10/19/19 22 Dysphagia 06/17/2021 Overview (06/17/2021): Added automatically from request for surgery [id number] Bilateral carotid artery stenosis 04/26/2021 Assessment & [...] 7 Assessment & Plan (10/29/2021 11:04 AM GUNNER'S MATE): Patient currently on famotidine, which helps. Patient [...] use distraction techniques - Information given regarding [place] Tobacco Quit line: 4-103-XRIP-YES for free services - 5 minutes spent [...] use distraction techniques - Information given regarding [place] Tobacco Quit line: 3-778-YHXA-YES for free services - 4 minutes spent discussing cessation Assessment & Plan (10/29/2021 11:05 AM GUNNER'S MATE): Advised patient to quit smoking. Assessment & Plan (05/22/2019 8:02 AM CDT): Patient was made aware that there was no suspicious lesion within the upper aerodigestive tract suspicious for malignancy. However, patient is tobacco use places her at great risk for developing a life-threatening medical condition. Patient was advised to contact [facility] and seek tobacco cessation program. [...] Encounters Date Type Department Care Team Description 07/07/2025 Results Follow-Up [facility] Primary Care at [address] [address] Karson Forbes MD SCAN - LABS 07/02/2025 Orders Only [facility] Health Information Management [address] [place] [address] Karson Forbes MD 06/27/2025 9:00 AM CDT Office Visit [facility] Sleep Medicine at [address] [place] [address] Brianne Florez MD Obstructive sleep apnea (Primary Dx); Hypersomnia; Overweight 06/27/2025 Orders Only [facility] [address] [place] [address] [address] [place] [address] Brianne Florez MD TROY (obstructive sleep apnea) (Primary Dx) 06/02/2025 Orders Only [facility] Health Information Management [address] [place] [address] Karson Forbes MD 05/05/2025 8:30 AM CDT Office Visit [facility] Pulmonary at [address] [place] [phone] Che Nair NP Centrilobular emphysema (HCC) (Primary Dx); Cigarette nicotine dependence without complication 04/15/2025 8:00 AM CDT Office Visit [place] [facility] at [address] [place] [address] Kenzie Be NP Mixed hyperlipidemia (Primary Dx); Bilateral carotid artery stenosis; PVD (peripheral vascular disease); Atherosclerosis of soboba arteries of extremities with intermittent claudication, bilateral legs; Bilateral carotid bruits 04/09/2025 Results Follow-Up [facility] Gastroenterology at [address] [place] [phone] Vic Gaines, DO Surgical pathology from Last 3 Months Immunizations Immunization Administration Dates Next Due Influenza, Quadrivalent, Spl it, Intramuscular 07/09/2015 Influenza, Quadrivalent, Spl it, Preservative Free, Intramuscular 06/20/2022,07/20/2021,07/03/2020,07/08,07/07/2018 Influenza, Split 07/22/2011 Influenza, Trivalent, IM (MDV) 08/21/2014 Influenza, Unspecified 01/05/2025(Deferr ed: Patient Refused),06/20/2024(Deferred: Patient Refused),07/18/2023(Deferred: Patient Refused),07/17/2023(Deferred: Patient Refused),06/21/2023(Deferred: Patient [...] 10/08/2018 Bilateral NEPHROURETERECTOMY 10/09/2023 - 10/08/2024 Left FEMORAL ARTERY STENT Bilateral x4 Medical History Medical History Date Comments Asthma Asthma; Comments : DNT 07/10/2014 - Chronic rhinitis 05/01/2024 Adenomatous colon polyp GERD (gastroesophageal reflux disease) HLD (hyperlipidemia) PAD (peripheral artery disease) Stents Migraine Vocal cord polyp CKD (chronic kidney disease) COPD (chronic obstructive pu lmonary disease) Urothelial cancer (HCC) L nephre ctomy HTN (hypertension) Multinodular goiter Family History Medical History Relation Name Comments Other Brother 1 evercodi Alive and well; Other Brother 2 olga Alive and well; Other Brother 3 gopal Alive and well; Hypertension Father Hypertension; Throat cancer Father Cancer -throat ; Cause of : Cancer -throat Brain cancer Father's Sister 1 fartun brain can er; Lymphoma Father's Sister 2 earlee Lymphoma; [...] Date Smoking Tobacco: Every Day Cigarettes 1 45.8 Started: 1979 Passive Smoke Exposure: Past Smokeless Tobacco: Never Tobacco Cessation:Ready to Q uit: Not Asked; Counseling Given: Not Answered Alcohol Use Standard Drinks/Week Comments No 0 (1 standard drink = 0.6 oz pur e alcohol) [facility] Utilities Answer Date Recorded In the past 12 months has e electric, gas, oil, or water company threatened to shut off services in your home? No 05/22/2024 Social Connection and Isolation Panel Answer Date Recorded In a typical week, how many times do you talk on the phone with family, friends, or neighbors? More than three times a week 05/22/2024 How often do you get togethe r with friends or relatives? More than three times a week 05/22/2024 How often do you attend chur ch or spiritism services? More than 4 times per year 05/22/2024 Do you belong to any clubs o r organizations such as sabianist groups, unions, fraternal or athletic groups, or school groups? Yes 05/22/2024 How often do you attend meet ings of the clubs or organizations you belong to? More than 4 times per year 05/22/2024 Are you , , di vorced, , never , or living with a partner? 05/22/2024 AUDIT-C Answer Date Recorded Q1: How often do you have a drink containing alcohol? Never 05/05/2025 Q2: How many drinks containi ng alcohol do you have on a typical day when you are drinking? Patient does not drink Q3: How often do you have si x or more drinks on one occasion? Never 05/05/2025 Overall Financial Resource Strain (CARDIA) Answe r Date Recorded How hard is it for you to pa y for the very basics like food, housing, medical care, and heating? Not hard at all 05/22/2024 PHQ-2 Answer Date Recorded PHQ-2 Total Score (If total score is 3 or more points, staff should administer the PHQ-9) 0 01/06/2025 Hunger Vital Sign Answer Date Recorded Within [...] any time in the past 12 m [facility], were you homeless or living in a residential (including now)? No 05/22/2024 Personal Safety Answer Date Recorded Have you ever been in or are you currently in a harmful physical or emotional relationship or is someone making you feel afraid or unsafe? Denies 04/08/2025 Education Answer Date Recorded What is the highest level of school you have completed or the highest degree you have received? 12th grade 05/22/2024 Comments No Sex and Gender Information Value Date Recorded Sex Assigned at Not on file Legal Sex Female 8:44 AM GUNNER'S MATE Gender Identity Not on file Sexual Orientation Not on file Obstetrics History Para Term AB IAB SAB Ectopic Multiple Livin g Live Births 2 2 2 2 Date Outcome GA Total Labor Labor/2nd/3rd Weight Sex Type Anes PTL Ann A1 A5 Name Clin Term Term Last Filed Vital Signs Vital Sign Reading Time Taken Comments Blood Pressure 143/77 06/27/2025 8:46 AM CDT Pulse 60 06/27/2025 8:46 AM CDT Temperature 36.4 C (97.6 F) 05/05/2025 8:17 AM CDT Respiratory Rate 14 05/05/2025 8:17 AM CDT Oxygen Saturation 95% 06/27/2025 8:46 AM CDT Inhaled Oxygen Concentration - - Weight 64.1 kg (141 lb 6.4 oz) 06/27/2025 8:46 A M CDT Height 152.4 cm (5') 06/27/2025 8:46 AM CDT Body Mass Index 27.62 06/27/2025 8:46 AM CDT Plan of Treatment Health Maintenance Due Date Last Done Comments DTaP/Tdap/Td Vaccine (1 - Tdap) 1975 Zoster Vaccine (1 of 2) 1983 Cervical Cancer Screening 03/31/20242022, 01/21/2022, 06/11/2021, Additional history exists Regular Well Visit/Exam 18-64 06/21/2024, 03/31/2023, 06/20/2022, Additional history exists Lung Cancer Screening 04/09/2025 04/08/2024 , 12/12/2022, 09/12/2022, Additional history exists Covid-19 Vaccine (5 - 2024-2 6 season) 2025 07/09/2022, 10/31/2021, 02/16/2021, Additional history exists Influenza Vaccine (#1) 2025 , 07/20/2021, 07/03/2020, Additional history exists Depression Screening 01/06/2026 01/06/2025, 06/24/2024, 06/21/2023, Additional history exists Colon Cancer Screening-Colonoscopy 04/08/2030 04/08/2025, 12/09/2014, 12/09/2014, Additional history exists Hepatitis C Screening Completed 11/28/2015 Pneumococcal vaccine <65 Completed 06/20/2022, 12/07 Hepatitis B Screening Completed 06/24/2024 Colon Cancer Screening-CT Colonography Discontinued 04/08/2025, 12/09/2014, 12/09/2014, Additional history exists Colon Cancer Screening-DNA Stool Discontinued 04/08/2025, 12/09/2014, 12/09/2014, Additional history exists Colon Cancer Screening-FIT Discontinued 04/08, 12/09/2014, 12/09/2014, Additional history exists Colon Cancer Screening-Sigmoidoscopy Discontinued 04/08/2025, 12/09/2014, 12/09/2014, Additional history exists Medical Devices Implanted Type Area Can Labeler Device Identifier Shelf Expiration Date Model / Serial / Lot [employer]ig [employer] [id number] Angio-Seal Evolution 6fr .035in Guidewire Bypass Tube Suture - [id number] Implanted:Qty: 1 on 05/13/2021 by Phoenix Loredo MD at [facility] Other - see comments [employer] Steven 12/06/2021 [id number] / / [id number] [employer] [id number] Lifestream 8mm 37mm 80cm Balloon Expandable Low Profile Cover - [id number] Implanted:Qty: 1 on 05/13/2021 by Phoenix Loredo MD at [facility] Stent [employer] 02/05/2022 [id number] / / [id number] Description:Left Iliac Staple Bilatera l: Foot Procedures Procedure Name Priority Date/Time Associated Diagnosis Comments SCAN - LABS 07/02/2025 SCAN - PATHOLOGY 06/02/2025 COLONOSCOPY 04/08/2025 8:[address] LUNG CANCER SCREENING Schedule Routine, Read Routine (OP Routine) 04/08/2024 7:19 AM CDT Nicotine dependence, cigarettes, uncomplicated Cigarette nicotine dependence without complication Centrilobular emphysema (HCC) THINPREP IMAGING PAP AND HPV MRNA E6/E7 REFLEX HPV 16,18/45 Routine 03/31/2023 10:40 AM CDT Encounter for well woman exam SERUM HEPATITIS PANEL Routine 11/28/2015 7:42 AM GUNNER'S MATE from Last 3 Months or Most Recently Relevant to Health Maintenance Results * SCAN - LABS (07/02/2025) us Karson Forbes MD Final Res ult * SCAN - PATHOLOGY (06/02/2025) us Karson Forbes MD Final Res ult * Colonoscopy (04/08/2025 8:03 AM CDT) Anatomical Region Laterality Modality Other Narrative Procedure Note Vic Gaines, - 04/08/2025 8:03 AM CDT [facility] Patient Name: Mirtha Cherry Procedure Date: 04/08/2025 8:03 AM Date of : 1965 Admit Type: Outpatient Age: 59 Gender: Female Attending MD: Vic Gaines D.O. [facility] Note Status: Finalized Patient Profile: Refer to note in patient chart for documentation of history and physical. Procedure: Colonoscopy Indications: High risk colon cancer surveillance: Personalhistory of colonic polyps, Last colonoscopy: December 2014 Referring MD: Karson Forbes M.D. Providers: Vic Gaines D.O. Impression: - The examined portion of the ileum was normal. - Two 1 to 2 mm polyps at the recto-sigmoid colonand in the sigmoid colon, removed with a jumbo cold forceps. Resected and retrieved. - One 6 mm polyp in the sigmoid colon, removed witha cold snare. Resected and retrieved. - Diverticulosis. Recommendation: - Discharge patient to home. - Resume previous diet. - Continue present medications. - Await pathology results. - Repeat colonoscopy (date not yet determined) for surveillance based on pathology results. - Return to primary care physician PRN. Benefiber or Metamucil q.d.. Medicines: Monitored Anesthesia Care Complications: No immediate complications. Estimated Blood Loss: Estimated blood loss was minimal. Procedure: Pre-Anesthesia Assessment: - As per anesthesia. The benefits, risks and alternatives of theprocedure and sedation were discussed and informed consentwas obtained. All questions were answered. Please referto the signed informed consent document in the medical record. The scope was passed under direct vision.The Pediatric Colonoscope [id number] was introduced through the anus and advanced to the 3cm into the ileum. The bowel preparation used wasMiralax and bisacodyl tablets via split dose instruction.The colonoscopy was performed without difficulty. The patient tolerated the procedure well. The qualityof the bowel preparation was adequate. The colonoscopy was performed without difficulty. The patient tolerated the procedure well. The quality of thebowel preparation was adequate. Anatomical landmarks were photographed. Findings: The perianal and digital rectal examinations were normal. The terminal ileum appeared normal. Two hyperplastic polyps were found in the recto-sigmoid colon and sigmoid colon. The polyps were 1 to 2 mm in size. These polyps were removed with a jumbo cold forceps. Resection and retrieval werecomplete. A 6 mm polyp was found in the sigmoid colon. The polyp was semi-pedunculated. The polyp was removed with a cold snare. Resection and retrieval were complete. Multiple diverticula were found in the colon. No additional abnormalities were found on retroflexion. Electronically signed by Vic Gaines M.D. Vic Gaines D.O. 04/08/2025 8:34:29 AM Number of Addenda: 0 Note Initiated On: 04/08/2025 8:03 AM Procedure Code(s): --- Professional --- 27706, Colonoscopy, flexible; with removal of tumor(s), polyp(s), or other lesion(s) by snare technique [id number], 59, Colonoscopy, flexible; with biopsy, single or multiple --- Technical --- 05246, Colonoscopy, flexible; with removal of tumor(s), polyp(s), or other lesion(s) by snare technique [id number], 59, Colonoscopy, flexible; with biopsy, single or multiple Diagnosis Code(s): --- Professional --- Z86.010, Personal history of colonic polyps D12.7, Benign neoplasm of rectosigmoid junction K57.30, Diverticulosis of large intestine without perforation orabscess without bleeding D12.5, Benign neoplasm of sigmoid colon --- Technical --- Z86.010, Personal history of colonic polyps D12.7, Benign neoplasm of rectosigmoid junction K57.30, Diverticulosis of large intestine without perforation orabscess without bleeding D12.5, Benign neoplasm of sigmoid colon CPT copyright 2020 [employer]. All rights reserved. The codes documented in this report are preliminary and upon curing pickling packer reviewmay be revised to meet current compliance requirements. Recognized by the [place] [employer] for promoting quality in endoscopy Vic Gaines DO ENDOSCOPY PROCEDURES Final Res ult * CT Lung Cancer Screening (04/08/2024 7:19 AM CDT) Anatomical Region Laterality Modality Chest N/A Computed Tomogra phy 04/08/2024 8:31 AM CDT Narrative 04/08/2024 8:39 AM CDT EXAM DESCRIPTION: CT LUNG CANCER SCREENING REASON FOR STUDY: Screening CT of the chest in a current smoker with a 40 pack year smoking history. Additional history: History of COPD, chronic bronchitis, and asthma. History of breast cancer with double mastectomy.. TECHNIQUE: [...] LUNG DISEASE: There are mild emphysematous changes of lungs with scattered mild subsegmental atelectasis and scarring. There is mild biapical pleural thickening and scarring. There is no definite evidence of a pneumothorax. There is a small amount of mucous debris noted in the right main bronchus extending into the right lower lobe, which is likely related to mucous secretions. There is scattered mild bronchial wall thickening, which is likely related to mild chronic bronchitis/bronchiolitis. There is no definite evidence of focal consolidation or pleural effusion. There are scattered calcified granulomas noted. LUNG NODULES: There are scattered pulmonary nodules noted, similar to the prior study. For example, there is a stable 0.4 cm right upper lobe pulmonary nodule (axial image 30). There is a stable 0.4 cm right upper lobe pulmonary nodule (axial image 55). There are couple of 0.3 cm pulmonary nodules in the periphery of the right upper lobe, similar to the prior study (axial image 74). There is a stable subpleural 0.2 cm right middle lobe pulmonary nodule (axial image 176). There is a stable subpleural 0.4 cm right lower lobe pulmonary nodule (axial image 183). There is a stable subpleural 0.3 cm left upper lobe pulmonary nodule (axial image 43). There is a stable elongated 0.4 cm ground-glass pulmonary nodule in the posterior left upper lobe (axial image 58). There is a stable 0.4 cm left upper lobe pulmonary nodule abutting the left major fissure (axial image 125). There is a stable subpleural 0.3 cm left lower lobe pulmonary nodule (axial image 153). CORONARY ARTERY CALCIFICATION: Present. OTHER: The heart size is stable. There is no definite evidence of a pericardial effusion. There are atherosclerotic changes of the thoracic aorta and coronary vessels. There is dilatation of main pulmonary artery measuring up to 3.7 cm, which is concerning for pulmonary arterial hypertension. There is no definite unenhanced CT evidence of mediastinal or hilar lymphadenopathy. There are scattered subcentimeter mediastinal lymph nodes noted with largest measuring 0.6 cm in the subcarinal region (axial image 124). Scattered calcified mediastinal and left hilar lymph nodes are noted.. Postsurgical changes of bilateral mastectomies are noted. There is a small hiatal hernia. There is stable nonspecific nodular thickening of the bilateral adrenal glands. There is a stable right adrenal nodule measuring [...] Electronically signed by Joaquina Colmenares D.O. PS: ERIKA Report ID: [id number] Reading Location: [id number] Procedure Note Joaquina Colmenares, DO - 04/08/2024 [...] Electronically signed by Joaquina Colmenares D.O. PS: ERIKA Report ID: [id number] Reading Location: [id number] Ho Jarrett MD IMG CT PROCEDURES Final Result * ThinPrep(R) Imaging Pap and HPV mRNA E6/E7 Reflex HPV 16,18/45 (03/31/2023 10:40 AM CDT) CLINICAL INFORMATION: [facility] Comment:None given LMP [facility] Comment:NONE GIVEN Previous Pap [facility] Comment:NONE GIVEN Prev. Bx [facility] Comment:NONE GIVEN SOURCE: [facility] Comment:Cervix Pap, specimen adequacy [facility] Comment: Satisfactory for evaluation. Endocervical/transformation zone component present. Age and/or menstrual status not provided HPV interp [facility] Comment:Negative for intraep ithelial lesion or malignancy. COMMENTS [facility] Comment: This Pap test has been evaluated with computer assisted technology. Upper Inspector [facility] Comment: PCM, CT(ASCP) CT Screening Location: [place] [address] [place] [address] [facility] Comment: EXPLANATORY NOTE: The Pap is [...] High Risk E6/E7 Not Detected Not Detected [facility] Auramist Julianne Comment: Methodology: Boot Lace Cutter Machine-Mediated Amplification This assay detects E6/E7 viral messenger RNA (mRNA) from 14 high-risk HPV types (16,18,31,33,35,39,45,51,52,56,58,59,66,68). Cervical sources are required for HPV testing. If a vaginal source from a patient who has had a total hysterectomy with removal of cervix was submitted, please contact the testing laboratory for alternative testing options. For additional information, please refer to http://education.Workboard/faq/EXN868r4 (This link if provided for information/ educational purposes only.) Swab 03/31/2023 10:4 0 AM CDT 04/01/2023 12:35 AM CDT us Aylin Lundy MD LAB CYTOLOGY ORDERABLES Fin al Result [employer] [address] [place] [address] [facility] [address] [place] [address] * Serum Hepatitis panel (11/28/2015 7:42 AM GUNNER'S MATE) HAV ab, IgM Negative Negative HISTORIC AL RESULTS HBV core ab, IgM Negative Negative HISTORICAL RESULTS HBV surface ag Negative Negative HISTO RICAL RESULTS Comment:Test performed at [facility], [address] [facility], [place]., [address] HCV ab Negative Negative HISTORICAL RESULTS Serum 11/28/2015 7:42 AM GUNNER'S MATE us Historical Provider LAB BLOOD ORDERABLES Ivette l Result Performing Organization Address City/State/[facility] Co de Phone Number HISTORICAL RESULTS from Last 3 Months or Most Recently Relevant to Health Maintenance Insurance [facility] HMO/PPO Address: [facility] [address] [place] [address] [facility] HMO/PPO [place] [id number] HMO/PPO Address: [place] [address] [facility] [facility] HMO/PPO Address: [place] [address] Advance Directives For more information, please contact: [phone] * Full Code (Latest Code Status on File) Date Activated Date Inactivated Comments 04/08/2025 7:40 AM 04/08/2025 1:24 PM * Full Code Date Activated Date Inactivated Comments 04/08/2025 7:40 AM 04/08/2025 7:40 AM * Full Code Date Activated Date Inactivated Comments 05/21/2024 5:57 PM 05/23/2024 5:05 PM * Full Code Date Activated Date Inactivated Comments 05/17/2024 5:16 PM 05/20/2024 3:24 PM * Full Code Date Activated Date Inactivated Comments 05/17/2024 3:27 PM 05/17/2024 5:16 PM Care Teams Supervisor Film Processing Relationship Specialty Start Date End Date Karson Forbes MD [address] [place] [address] PCP - General Family Medicine 11/23/23 Phoenix Loredo MD Consulting Physician Cardiology 01/04/19 [place] [address] [place] [address] Technical Agronomist Obstetrics and Gynecology 04/19/21 [place] [address] [place] [address] Consulting Physician Urology 05/17/24 Ho Phan MD [address] [place] [address] Medical Oncologist/Carton Catcher Hematology and Oncology 06/04/24
--- OUTSIDE RECORDS SUMMARY | 2025-07-10 16:17 | XMS_ITS | Encounter Summary ---
Author Organization [employer] Address [address] [place] [address] Care Team Providers Care Coffee Grinder Name Role Phone mEerson Allen MD Primary Care Provider Encounter Details Date Type Department Care Team (Latest Contact Info) Description 03/15/2006 Outpatient Historical HIS CARD IRON WORKER FOREMAN Basilio Matthew MD [address] [facility] [address] [place] [address] Atheroscler-Limb&Cla udic (CMS/[facility]) (Primary Dx) Social History Tobacco Use Types Packs/Day Years Used Date Smoking Tobacco: Never Assessed Comments Unknown Sex and Gender Information Value Date Recorded Sex Assigned at Not on file 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 (See also Nursing Procedures for sheath pull in related nursing areas) 03/15/2006 9:55 AM CDT us Basilio Matthew MD POINT OF CARE TESTING Final Re sult Performing Organization Address [facility] Phone Number INTERFACE SYSTEM Refer to clinic/hospital department * BUN (03/15/2006 7:12 AM CDT) BUN 12 6 - 20 mg/dL INTERFACE SYSTEM 03/15/2006 7:12 AM CDT us Basilio Matthew MD CHEMISTRY ORDERABLES Final Res ult Performing Organization Address [facility] Phone Number INTERFACE SYSTEM Refer to clinic/hospital department * CREATININE (03/15/2006 7:12 AM CDT) CREATININE 0.8 0.4 - 1.2 mg/dL INTERFACE SYSTEM 03/15/2006 7:12 AM CDT us Basilio Matthew MD CHEMISTRY ORDERABLES Final Res ult Performing Organization Address [facility] Phone Number INTERFACE SYSTEM Refer to clinic/hospital department * PLATELET COUNT (03/15/2006 7:12 AM CDT) PLATELETS 190 140 - 350 K/uL INTERFACE SYSTEM MPV 10.0 9.3 - 12.4 fL INTERFACE SYSTEM 03/15/2006 7:12 AM CDT us Basilio Matthew MD HEMATOLOGY ORDERABLES Final Re sult Performing Organization Address [facility] Phone Number INTERFACE SYSTEM Refer to clinic/hospital department * PT AND APTT (03/15/2006 7:12 AM CDT) PTT 26.4 24.4 - 36.4 Seconds INTERFACE SYSTEM Comment: PTT Therapeutic Range: Heparin Level PTT (seconds) <0.10 units/mL <53 0.10 - 0.30 units/mL 53 - 67 0.30 - 0.70 units/mL* 67 - 95* 0.70 - 1.00 units/mL 95 - 116 *corresponds to therapeutic range for unfractionated heparin PROTIME 13.3 12.7 - 15.1 Seconds INTERFACE SYSTEM INR 0.9 0.9 - 1.1 INTERFACE SYSTEM Comment: INR Therapeutic Range: Adult: 2.0 - 3.0 for pulmonary embolism or prophylaxis against venous thrombosis or systemic embolization. 2.0 - 3.0 for patients with tissue heart valves. 2.5 - 3.5 for patients with mechanical heart valves or post [place]. Pediatric (12 years and under): 1.5 - 3.0 Although the target range in children is not well established , INR values of 1.5 - 3.0 are recommended for most patients. Higher values have been used in children with prosthetic cardiac valves and hereditary clotting disorders. (<3 days) therapeutic ranges have not been established. 03/15/2006 7:12 AM CDT Basilio Matthew MD HEMATOLOGY ORDERABLES Final Re sult INTERFACE SYSTEM Refer to clinic/hospital department documented in this encounter Visit Diagnoses Diagnosis Atherosclerosis of [place] arteries of the extremities with intermittent claudication- Primary documented in this encounter Care Teams Coffee Grinder Relationship Specialty Start Date End Date Emerson Allen MD [address] [place] [phone] PCP - General Family Practice 04/27/18 documented as of this encounter
--- OUTSIDE RECORDS SUMMARY | 2025-07-10 16:17 | XMS_ITS | Encounter Summary ---
Author Organization [facility] Address [address] [place] [address] Care Team Providers Care Administrative Office Specialist Name Role Phone Emerson Allen MD Primary Care Provider Encounter Details Date Type Department Care Team (Late st Contact Info) Description 09/21/2005 Outpatient Historical [facility] Supp Svcs Blood Flow [address] [place] [address] Jacob Ramos MD [address] 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
--- OUTSIDE RECORDS SUMMARY | 2025-07-10 16:17 | XMS_ITS | Encounter Summary ---
Author Organization [facility] Address [address] [place] [address] Care Team Providers Care Project Analyst Name Role Phone Phoenix Loredo MD Unavailable [phone] Aylin Lundy MD Unavailable [phone] Karson Forbes MD Primary Care Provider [phone] Daniel Last MD Unavailable [phone] Ho Phan MD Unavailable [phone] Encounter Details Date Type Department Care Team (Late st Contact Info) Description 07/07/2025 Results Follow-Up [facility] Primary Care at [address] [place] [address] Karson Forbes MD [address] [place] [address] SCAN - LABS Social History Tobacco Use Types Packs/Day Years Used Date Smoking Tobacco: Every Day Cigarettes 1 45.8 Started: 1980 Passive Smoke Exposure: Past Smokeless Tobacco: Never Alcohol Use Standard Drinks/Week Comments No 0 (1 standard drink = 0.6 oz pur e alcohol) [facility] Utilities Answer Date Recorded In the past 12 months has [employer] electric, gas, oil, or water company threatened [...] often do you attend chur ch or jew services? More than 4 times per year [...] were you homeless or living in a group home (including now)? No 05/22/2024 Personal Safety [...] on file Legal Sex Female 8:44 AM WHEEL PRESSER Gender Identity Not on file Sexual Orientation Not on file documented as of this encounter Plan of Treatment Not on file documented as of this encounter Visit Diagnoses Not on filedocumented in this encounter Care Teams Project Analyst Relationship Specialty Start Date End Date Karson Forbes MD [address] [place] [address] PCP - General Family Medicine 11/23/23 Phoenix Loredo MD Consulting Physician Cardiology 01/04/19 [place] [address] [place] [address] Craft Artist Obstetrics and Gynecology 04/19/21 [place] [address] [place] [address] Consulting Physician Urology 05/17/24 Ho Phan MD [address] [place] [address] Medical Oncologist/Glassware Finisher Hematology and Oncology 06/04/24 documented as of this encounter
--- OUTSIDE RECORDS SUMMARY | 2025-07-10 16:17 | XMS_ITS | Encounter Summary ---
Author Organization [employer] Address [address] [place] [address] Care Team Providers Care Industrial Waste Treatment Technician Name Role Phone Emerson Allen MD Primary Care Provider Encounter Details Date Type Department Care Team (Latest Contact Info) Description 12/21/2006 Outpatient Historical HIS CARDIOPULMONARY Basilio Matthew MD [address] [facility] [address] [place] [address] Follow-Up Examination, Following Other Surgery (Primary Dx) Social History Tobacco Use Types Packs/Day Years Used Date Smoking Tobacco: Never Assessed Comments Unknown Sex and Gender Information Value Date Recorded Sex Assigned at Not on file Legal Sex Female 2:53 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
--- OUTSIDE RECORDS SUMMARY | 2025-07-10 16:17 | XMS_ITS | Encounter Summary ---
Author Organization [employer] Address 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
--- OUTSIDE RECORDS SUMMARY | 2025-07-10 16:17 | XMS_ITS | Encounter Summary ---
Author Organization [employer] Address [address] [place] [address] Care Team Providers Care Manager Global Communications Name Role Phone Emerson Allen MD Primary Care Provider Encounter Details Date Type Department Care Team (Latest Contact Info) Description 02/09/2006 Outpatient Historical HIS CARDIOPULMONARY Basilio Matthew MD [address] [facility] [address] [place] [address] Unspecified Peripheral Vascular Disease (Primary Dx) Social History Tobacco Use Types Packs/Day Years Used Date Smoking Tobacco: Never Assessed Comments Unknown Sex and Gender Information Value Date Recorded Sex Assigned at Not on file Legal Sex Female 2:53 AM 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
--- OUTSIDE RECORDS SUMMARY | 2025-07-10 16:17 | XMS_ITS ---
Author Organization [facility] Address [address] [facility] [place] [address] Phone Care Team Providers Care Culinary Assistant Name Role Phone Levi Carpenter Mirlande DPM Unavailable [phone] Karson Forbes MD Primary Care Provider [phone] Los Perry MD Unavailable Los Perry MD Unavailable Active Problems Problem [...] foot 06/07/2016 Current Treatment and Therapy Plans No current plan information found. Past Treatment and Therapy Plans ONCOLOGY TREATMENT Plan Name Start Date Discontinue Date Treatment Medications Discontinue Reason Plan Provider Cycles OSF/ESC: Gemcitabine / CARBOplatin (AUC 5) - 21 Day Cycle - Bladder Cancer 4 04/17/2025 CARBOplatin (PARAPLATIN) chemo infusion (by AUC)gemcitabin e (GEMZAR) chemo infusion Automatically Discontinued - Inactive Plan Cruzito Orr MD 4 of 4 cycles started Lifetime Dose Tracking * Chemical Lifetime Dose Automatic Entry Manual Entr y Carboplatin 1,276.354 mg/m2 (1,400.3 mg) 1,276.354 mg /m2 (1,400.3 mg) 0 mg/m2 (0 mg) Resolved Problems Problem Noted Date Diagnosed Date Resolved Date Urinary tract infection without hematuria 08/13/2024 01/02/2025 Left leg pain 07/10/2017 01/02/2025 Left leg swelling 06/02/2017 01/02/2025 Tailor's bunion of right foot 06/07/2016 02/17/2017
--- OUTSIDE RECORDS SUMMARY | 2025-07-10 16:17 | XMS_ITS | Encounter Summary ---
Author Organization [facility] Address [address] [address] Care Team Providers Care Supervisor Boilermaking Shop Name Role Phone Emerson Allen MD Primary Care Provider Emerson Allen MD Primary Care Provider Francisca Hou DO Primary Care Provider [phone] Francisca Hou DO Primary Care Provider [phone] Emerson Allen MD Primary Care Provider [phone] Phoenix Loredo MD Unavailable [phone] Aylin Lundy MD Unavailable Celine Solano FISHING FLOATS ASSEMBLER Primary Care Provider Emerson Allen MD Primary Care Provider [phone] Emerson Allen MD Primary Care Provider [phone] Celine Solano FISHING FLOATS ASSEMBLER Primary Care Provider Harper Myers DO Primary Care Provider [phone] Karson Forbes MD Primary Care Provider [phone] Daniel Last MD Unavailable [phone] Ho Phan MD Unavailable Encounter Details Date Type Department Care Team (Late st Contact Info) Description 01/04/[address] [facility] Health Information Management [address] [place] [address] Scanning, Provider Social History Tobacco Use Types Packs/Day Years Used Date Smoking Tobacco: Never Assessed Comments Unknown Sex and Gender Information Value Date Recorded Sex Assigned at Not on file Legal Sex Female 8:44 AM CHAIN PULLER Gender Identity Not on file Sexual Orientation [...] COVID: Suspected 08/14/2022 08/14/2022 08/14/2022 8:25 AM CHAIN PULLER COVID: Suspected 08/14/2022 08/14/2022 08/14/2022 8:26 AM CHAIN PULLER COVID19 08/14/2022 08/14/2022 08/24/2022 3:05 AM CHAIN PULLER COVID: Recovered Comment:Added based on recent COVID infection. 08/24/2022 08/28/2022 11/22/2022 3:[address] COVID: Suspected 02/08/2023 02/08/2023 02/08/2023 2:19 PM CDT COVID: Suspected 02/19/2023 02/19/2023 02/19/2023 7:28 AM CDT COVID: Suspected 05/21/2024 05/21/2024 05/21/2024 3:28 PM CDT COVID: Suspected 05/22/2024 05/22/2024 05/23/2024 5:29 AM CDT documented as of this encounter Care Teams Supervisor Boilermaking Shop Relationship Specialty Start Date End Date Emerson Allen MD PCP - General 01/06/17 03/07/17 Emerson Allen MD PCP - General 11/14/07 01/05/17 Francisca Hou DO [address] [facility] [address] [place] [address] PCP - General 03/08/17 05/31/17 Francisca Hou DO [address] [facility] [address] [place] [address] PCP - General 06/01/17 06/02/17 Emerson Allen MD PCP - General 06/03/17 07/05/21 Celine Solano, FISHING FLOATS ASSEMBLER [facility] [place] [address] PCP - General Family Medicine 07/06/21 07/22/21 Emerson Allen MD PCP - General 07/23/21 08/01/21 Emerson Allen MD PCP - General 08/02/21 09/16/21 Celine Solano, FISHING FLOATS ASSEMBLER [address] [place] [address] PCP - General Family Medicine 09/17/21 09/22/21 Harper Myers DO [facility] [place] [address] PCP - General Family Medicine 09/23/21 11/22/23 Karson Forbes MD [address] [place] [address] PCP - General Family Medicine 11/23/23 Phoenix Loredo MD [address] [facility] [address] [place] [address] Consulting Physician Cardiology 01/04/19 [place] [address] [place] [address] Multi Township Assessor Obstetrics and Gynecology 04/19/21 [place] [address] [place] [address] Consulting Physician Urology 05/17/24 Ho Phan MD [address] [place] [address] Medical Oncologist/Drag Down Hematology and Oncology 06/04/24 documented as of this encounter
--- OUTSIDE RECORDS SUMMARY | 2025-07-10 16:17 | XMS_ITS | Encounter Summary ---
Author Organization [facility] Address [address] [place] [address] Care Team Providers Care Yard Coordinator Name Role Phone Emerson Allen MD Primary Care Provider Encounter Details Date Type Department Care Team (Late st Contact Info) Description 12/21/2006 Outpatient Historical [facility] Supp Svcs Blood Flow [address] [place] [address] Basilio Matthew MD [address] [facility] [address] [place] [address] Social History Tobacco Use Types Packs/Day Years Used Date Smoking Tobacco: Never Assessed Comments Unknown Sex and Gender Information Value Date Recorded Sex Assigned at Not on file 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
[2025-07-10 16:30] VITALS: BP 159/71; PULSE 83; RESP 18; TEMP 36.6; O2SAT 98
== END 2025-07-10 18:20 | disposition home or self-care (01) ==
PROVIDERS: Emergency Provider Nurse Practitioner; PCP Hospitalist
DX: S62.306A Unspecified fracture of fifth metacarpal bone, right hand, initial encounter for closed fracture (principal); F17.210 Nicotine dependence, cigarettes, uncomplicated; W01.0XXA Fall on same level from slipping, tripping and stumbling without subsequent striking against object, initial encounter
CPT/HCPCS: 29125; 73130; 99214; A4565; G0463